=== PATIENT | female | born 1945 ===

== ENCOUNTER 2016-06-26 16:47 | Emergency (ER) | payer MEDICARE, MEDICAID ==
[2016-06-26 16:51] VITALS: TEMP 97; O2SAT 96
--- NOTE | 2016-06-26 17:15 | ED PDOC ---
HPI: Abdomen Time Seen by Provider: 06/26/16 16:57 Chief Complaint (Nursing): GI Problem Chief Complaint (Provider): GI problem History Per: Patient History/Exam Limitations: no limitations Onset/Duration Of Symptoms: Days (1x) Current Symptoms Are (Timing): Still Present Severity: Moderate Location Of Pain/Discomfort: Other (no abdominal pain) Associated Symptoms: Other (rectal bleeding). denies: Fever, Nausea, Vomiting, Diarrhea Last Bowel Movement: Today Additional Complaint(s): 71 year old female with a pertinent medical history of HTN, hypercholesterolemia , NIDDM presents to the ED with complaints of bright red (and dripping) rectal bleeding that occurred 1x time today. She denies having any other associated symptoms including dizziness, nausea, vomiting, diarrhea, and abdominal pain. Her reports that she has been taking aspirin, HTN, and hypercholesterolemia medication. PMD: Pito Babb MD Past Medical History Reviewed: Historical Data, Nursing Documentation, Vital Signs Vital Signs: Last Vital Signs Temp 97.0 F L 06/26/16 16:49 Pulse 88 06/26/16 18:14 Resp 19 06/26/16 18:14 BP 148/66 06/26/16 18:14 Pulse Ox 96 06/26/16 17:57 - Medical History PMH: Diabetes (type 2, NIDDM), HTN, Hypercholesterolemia - Surgical History Surgical History: No Surg Hx - Family History Family History: States: Unknown Family Hx - Social History Alcohol: None Drugs: Denies - Home Medications Home Medications: Ambulatory Orders Medication Instructions Recorded traMADol [Ultram] 50 mg PO Q6H PRN #20 tab 03/26/16 - Allergies Allergies/Adverse Reactions: Allergies Allergy/AdvReac Type Severity Reaction Status Date / Time No Known Allergies Allergy Verified 03/26/16 00:29 Review of Systems ROS Statement: Except As Marked, All Systems Reviewed And Found Negative Constitutional: Negative for: Fever Gastrointestinal: Positive for: Other (rectal bleeding. bright red blood dripping (1x episode)). Negative for: Nausea, Vomiting, Abdominal Pain, Diarrhea, Hematochezia Neurological: Negative for: Dizziness Physical Exam - Reviewed Nursing Documentation Reviewed: Yes Vital Signs Reviewed: Yes - Physical Exam Appears: Positive for: Well, Non-toxic, No Acute Distress Head Exam: Positive for: ATRAUMATIC, NORMOCEPHALIC Skin: Positive for: Normal Color Cardiovascular/Chest: Positive for: Regular Rate, Rhythm Respiratory: Positive for: Normal Breath Sounds Gastrointestinal/Abdominal: Positive for: Normal Exam, Soft. Negative for: Tenderness Rectal: Positive for: Stool Is Heme: (negative), Hemorrhoids (obvious external hemorrhoid. no active bleeding. there is a blood clot. hemorrhoid is non tender , normal pink color, very inflamed but not swollen. No blood, no guiac.), Other (chaperoned by KATHARINE Rousseau) Extremity: Negative for: Swelling (legs are not swollen. varicose veins bilaterally on legs) Neurologic/Psych: Positive for: Alert, Oriented (3x) - Laboratory Results Result Diagrams: 06/26/16 17:20 06/26/16 17:20 - ECG O2 Sat by Pulse Oximetry: 96 (RA) Pulse Ox Interpretation: Normal Medical Decision Making Medical Decision Makin:57 Initial impression: 71 year old female with a hemorrhoid bleed, less likely but still considered differential diagnoses include but are not limited to a lower GI bleed, polyps, diverticulitis. Initial plan: * type and screen * BMP * CBC * PTT * prothrombin time * reevaluation Scribe Attestation: Documented by Sharyn Curran, acting as a scribe for Ca Do MD. Provider Scribe Attestation: All medical record entries made by the Scribe were at my direction and personally dictated by me. I have reviewed the chart and agree that the record accurately reflects my personal performance of the history, physical exam, medical decision making, and the department course for this patient. I have also personally directed, reviewed, and agree with the discharge instructions and disposition. Disposition - Clinical Impression Clinical Impression: Bleeding hemorrhoid, Rectal bleeding, Hypertension, Diabetes mellitus with hyperglycemia - Patient ED Disposition Is Patient to be Admitted: No Doctor Will See Patient In The: Office Counseled Patient/Family Regarding: Studies Performed, Diagnosis - Disposition Referrals: Pito Babb MD [Family Provider] - Disposition: Routine/Home Disposition Time: 18:15 Condition: GOOD Additional Instructions: Return for worsening. Follow up with your PCP in 2-3 days. Instructions: Rectal Bleeding (ED), Sitz Bath (GEN), High Fiber Diet (ED) Print Language: THAI
[2016-06-26 17:37] LABS: BASO # 0.1 K/uL (0.0-0.2); BASO % 1.1 % (0.0-2.0); EOS # 0.1 K/uL (0.0-0.7); HEMATOCRIT 35.3 % (34.0-47.0); LYMPH # 1.5 K/uL (1.0-4.3); LYMPH % 24.5 % (20.0-40.0); MEAN CELL VOLUME 87.2 fl (81.0-99.0); MEAN CORPUSCULAR HEMOGLOBIN 27.7 pg (27.0-31.0); MEAN CORPUSCULAR HGB CONC 31.8 g/dL (33.0-37.0); MEAN PLATELET VOLUME 9.6 fl (7.2-11.7); MONO # 0.4 K/uL (0.0-0.8); MONO % 6.3 % (0.0-10.0); NEUT % 66.1 % (50.0-75.0); RED CELL DISTRIBUTION WIDTH 14.9 % (11.5-14.5)
[2016-06-26 17:50] LABS: BLOOD UREA NITROGEN 16 mg/dl (7-17); CALCIUM 8.6 mg/dL (8.4-10.2); CARBON DIOXIDE 29 mmol/L (22-30); CHLORIDE 100 mmol/L (98-107); GFR AFRICAN-AMERICAN > 60; GLUCOSE,RANDOM 376 mg/dL (65-105); POTASSIUM 4.2 MMOL/L (3.6-5.0); SODIUM 140 mmol/l (132-148)
[2016-06-26 17:54] LABS: PARTIAL THROMBOPLASTIN TIME 24.3 SECONDS (23.3-32.5)
[2016-06-26] MEDS ORDERED: Insulin Regular 100 units/ml IV STA (17:54)
[2016-06-26] MEDS ORDERED: Sodium Chloride 0.9% 1,000 ML IV STA (17:54)
[2016-06-26] MEDS ORDERED: Insulin Regular 100 units/ml ONE (18:01)
[2016-06-26 18:14] VITALS: BP 148/66; PULSE 88; RESP 19
== END 2016-06-26 19:34 | disposition home or self-care (01) ==
LOC: H.ER 16:47
DX: K64.9 Unspecified hemorrhoids (principal); E11.65 Type 2 diabetes mellitus with hyperglycemia; E78.00 Pure hypercholesterolemia, unspecified; I10 Essential (primary) hypertension
CPT/HCPCS: 80048; 82948; 85025; 85610; 85730; 86850; 86900; 99284; J7040

== ENCOUNTER 2017-04-12 20:04 | Inpatient (IN) | payer MEDICARE, OTHER ==
--- NOTE | 2017-04-12 20:35 | ED PDOC ---
HPI: Altered Mental Status Time Seen by Provider: 04/12/17 20:11 Chief Complaint (Nursing): Altered Mental Status Chief Complaint (Provider): Altered Mental Status History Per: Patient, Family () History/Exam Limitations: None Onset/Duration Of Symptoms: Days (x 1) Current Symptoms Are (Timing): Still Present Additional Complaint(s): 72 year old female with past medical history of diabetes, high blood pressure and high cholesterol was brought in via EMS for evaluation of altered mental status, onset a few months ago. Patient's reports that her mental status has been worsening for the last few months, but has become acute worse since yesterday. He was hospitalized himself and was unable to take care of her. She has not been eating regularly, or taking medications. Since yesterday, she has been speaking less than usual. EMS gave her glucose in the field. Patient has no complaints. PMD: Dr. Pito Babb NIHSS Stroke Scale - Date/Time Evaluation Performed Date Performed: 04/12/17 Time Performed: 20:20 When Was NIHSS Performed: Baseline - How Severe is the Stroke Level of Consciousness: 0=Alert LOC to Questions: 0=Both comments correct LOC to commands: 0=Obeys both correctly Best Gaze: 0=Normal Visual: 0=No visual loss Facial: 2=Partial (lower face paralysis) Motor Arm - Left: 0=No drift Motor Arm - Right: 0=No drift Motor Leg - Left: 0=No drift Motor Leg - Right: 0=No drift Limb Ataxia: 0=Absent Sensory: 0=Normal Best Language: 1=Mild to moderate aphasia Dysarthia: 1=Mild to moderate slurring Extinction & Inattention (Neglect): 0=Normal, no object Score: 4 Past Medical History Reviewed: Historical Data, Nursing Documentation, Vital Signs Vital Signs: Last Vital Signs Temp 98.0 F 04/12/17 20:08 Pulse 94 H 04/12/17 20:08 Resp 16 04/12/17 20:08 BP 206/114 H 04/12/17 20:08 Pulse Ox 100 04/12/17 20:08 - Medical History PMH: Diabetes (type 2, NIDDM), HTN, Hypercholesterolemia - Surgical History Surgical History: No Surg Hx - Family History Family History: States: Unknown Family Hx - Home Medications Home Medications: Ambulatory Orders Medication Instructions Recorded traMADol [Ultram] 50 mg PO Q6H PRN #20 tab 03/26/16 - Allergies Allergies/Adverse Reactions: Allergies Allergy/AdvReac Type Severity Reaction Status Date / Time No Known Allergies Allergy Verified 04/12/17 20:08 Review of Systems ROS Statement: Except As Marked, All Systems Reviewed And Found Negative Neurological: Positive for: Altered Mental Status Physical Exam - Reviewed Nursing Documentation Reviewed: Yes Vital Signs Reviewed: Yes - Physical Exam Appears: Positive for: No Acute Distress Head Exam: Positive for: ATRAUMATIC, NORMOCEPHALIC Skin: Positive for: Normal Color, Warm, Dry Eye Exam: Positive for: EOMI, Normal appearance, PERRL Neurologic/Psych: Positive for: Alert, 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 Negative for: Motor/Sensory Deficits - Laboratory Results Result Diagrams: 04/12/17 20:54 04/12/17 20:54 - ECG ECG: Positive for: Interpreted By Me, Viewed By Me ECG Rhythm: Positive for: Normal ST Segment, Sinus Rhythm, 1st Degree Heart Block. Negative for: ST/T Changes O2 Sat by Pulse Oximetry: 100 (RA) Pulse Ox Interpretation: Normal Medical Decision Making Medical Decision Making: Time: 20:19 Impression:CVA vs infectious etiology vs electrolytes vs DKA Initial Plan: --Blood type and screen --VBG shock panel --CT Head --Chest x-ray --EKG --EMP --Hemoglobin A1C --Lipid panel --Troponin I --CBC with differentials --PTT --Prothrombin time --Urinalysis EKG --Sinus rhythm, 1st degree AV block, Q waves, no ST elevation or depressions. Time: 21:12 CT HEAD FINDINGS: Brain: Moderate atrophy. No intracranial hemorrhage. No mass. Few scattered foci of decreased attenuation within periventricular/subcortical white matter. Probable chronic lacunar infarcts within basal ganglia. No definite edema. Ventricles: No hydrocephalus. Bones/joints: No acute fracture. Soft tissues: Unremarkable. Vasculature: Atherosclerotic disease of intracranial arteries. Sinuses: No acute sinusitis. Mastoid air cells: No mastoid effusion. Orbits: Unremarkable as visualized. IMPRESSION: 1. Nonspecific white matter changes. Acute infarction may be CT occult within first 24 hours. If a focal deficit persists, consider followup CT or MRI for further evaluation. 2. Incidental/non-acute findings are described above. 2100: Patient's BP is improving on its own. Mental status remains the same. Spoke with Dr. Alberts who states to treat hyperglycemia as presentation may be toxic/ metabolic. Agrees with ASA, MRI in AM. Spoke with Dr. Adenike Ibanez, hospitalist. Scribe Attestation: Documented by Evelyn Grossman and Kit Josue, acting as a scribe for Jerzy Goldberg MD. Provider Scribe Attestation: All medical record entries made by the Scribe were at my direction and personally dictated by me. I have reviewed the chart and agree that the record accurately reflects my personal performance of the history, physical exam, medical decision making, and the department course for this patient. I have also personally directed, reviewed, and agree with the discharge instructions and disposition. Disposition - Clinical Impression Clinical Impression: CVA (cerebral vascular accident), Hyperglycemia, Hypertension - Patient ED Disposition Is Patient to be Admitted: Yes - Disposition Disposition Time: 20:35 Condition: STABLE Patient Signed Over To: Adenike Ibanez - Pt Status Changed To: Hospital Disposition Of: Inpatient - Admit Certification Admit to Inpatient:: After my assessment, the patient will require hospitalization for at least two midnights. This is because of the severity of symptoms shown, intensity of services needed, and/or the medical risk in this patient being treated as an outpatient.
[2017-04-12 20:51] LABS: VENOUS BLOOD GAS BASE EXCESS 3.3 mmol/L (0.0-2.0); VENOUS BLOOD GAS PCO2 48 mmHg (40-60); VENOUS BLOOD GAS PO2 56 mm/Hg (30-55); VENOUS BLOOD PH 7.39 (7.32-7.43)
[2017-04-12] MEDS ORDERED: Sodium Chloride 0.9% 1,000 ML IV STA ×3 (20:52→21:34)
[2017-04-12 20:58] LABS: BASO % 0.6 % (0.0-2.0); EOS # 0.1 K/uL (0.0-0.7); EOS % 2.3 % (0.0-4.0); HEMOGLOBIN 12.4 g/dL (12.0-16.0); LYMPH # 1.3 K/uL (1.0-4.3); LYMPH % 22.2 % (20.0-40.0); MEAN CELL VOLUME 88.6 fl (81.0-99.0); MEAN CORPUSCULAR HEMOGLOBIN 28.2 pg (27.0-31.0); MEAN CORPUSCULAR HGB CONC 31.9 g/dL (33.0-37.0); MEAN PLATELET VOLUME 10.3 fl (7.2-11.7); MONO # 0.3 K/uL (0.0-0.8); MONO % 5.2 % (0.0-10.0); NEUT % 69.7 % (50.0-75.0); NRBC % 0.1 % (0.0-0.0); RBC 4.39 Mil/uL (3.80-5.20); RED CELL DISTRIBUTION WIDTH 14.8 % (11.5-14.5); WHITE BLOOD COUNT 5.7 K/uL (4.8-10.8)
--- NOTE | 2017-04-12 21:12 | CT ---
EXAM: CT Head Without Intravenous Contrast CLINICAL HISTORY: 72 years old, female; Signs and symptoms; Altered mental status/memory loss; Other: Lt facial droop; Additional info: AMS, l facial droop, unknown duration, likely >2d TECHNIQUE: Axial computed tomography images of the head/brain without intravenous contrast. All CT scans at this facility use one or more dose reduction techniques, viz.: automated exposure control; ma/kV adjustment per patient size (including targeted exams where dose is matched to indication; i.e. head); or iterative reconstruction technique. Coronal and sagittal reformatted images were created and reviewed. COMPARISON: No relevant prior studies available. FINDINGS: Brain: Moderate atrophy. No intracranial hemorrhage. No mass. Few scattered foci of decreased attenuation within periventricular/subcortical white matter. Probable chronic lacunar infarcts within basal ganglia. No definite edema. Ventricles: No hydrocephalus. Bones/joints: No acute fracture. Soft tissues: Unremarkable. Vasculature: Atherosclerotic disease of intracranial arteries. Sinuses: No acute sinusitis. Mastoid air cells: No mastoid effusion. Orbits: Unremarkable as visualized. IMPRESSION: 1. Nonspecific white matter changes. Acute infarction may be CT occult within first 24 hours. If a focal deficit persists, consider followup CT or MRI for further evaluation. 2. Incidental/non-acute findings are described above.
[2017-04-12 21:32] LABS: LDL CHOLESTEROL 166 mg/dL (0-129)
[2017-04-12] MEDS ORDERED: Insulin Regular 100 units/ml SC STA (21:34)
[2017-04-12 21:37] LABS: ALBUMIN 3.8 g/dL (3.5-5.0); ALT/SGPT 25 U/L (9-52); AST/SGOT 19 U/L (14-36); BLOOD UREA NITROGEN 13 mg/dl (7-17); CALCIUM 9.2 mg/dL (8.4-10.2); GFR AFRICAN-AMERICAN > 60; GFR NON-AFRICAN AMERICAN > 60; HDL CHOLESTEROL 56 MG/DL (30-70)
[2017-04-12 21:57] LABS: INR 0.9 (0.9-1.2); PROTHROMBIN TIME 9.7 Seconds (9.8-13.1)
[2017-04-12 22:10] LABS: SQUAMOUS EPITHIAL 1 /hpf (0-5); URINE BACTERIA RARE (<OCC); URINE BILIRUBIN NEGATIVE (NEGATIVE); URINE BLOOD MODERATE (NEGATIVE); URINE CLARITY CLEAR (Clear); URINE COLOR STRAW (YELLOW); URINE GLUCOSE (UA) >=500 mg/dL (Normal); URINE LEUKOCYTE ESTERASE NEG Leu/uL (Negative); URINE NITRATE NEGATIVE (NEGATIVE); URINE PROTEIN 30 mg/dL (NEGATIVE); URINE UROBILINOGEN 0.2-1.0 mg/dL (0.2-1.0)
[2017-04-12] MEDS ORDERED: Insulin Regular 100 units/ml IV STA (22:34)
--- NOTE | 2017-04-12 22:52 | CP.PCM.HP ---
History of Present Illness - History of Present Illness History of Present Illness: CC: AMS NOTE: history per records, patient only answering Yes and No questions, only oriented to name at this time HPI: 72F PMH DM, HTN, HLD, medications unknown at this time, brought to the ED with acutely worsening altered mental status though it has been progressively worsening over the past few months; she has been speaking less since yesterday, per her , per records. Patient is currently answering yes and no questions. The patient's was recently hospitalized and was unable to take care of his , and she has not been eating well, or taking her medications. CT head was neg for acute CVA or bleed. Patient glucose elevated 563, HD stable. Discussed with ED physician who consulted with Dr. Alberts neuro - to perform MRI brain tomorrow. We will initiated ASA, statin as well. PT OT. ROS: unable to assess at this time. PMSH: DM, HTN, HLD FH: DENIES SH: denies ETOH, IVDU, Tobacco Meds: unable to complete at this time NKDA vitals reviewed Constitutional- cooperative, awake, alert. Head- NCAT, PERRL Eye- PERRL, normal accommodation ENT- normal exam, MMM. Neck- normal inspection, supple, no JVD Respiratory- CTAB, no wheezes rales rhonchi Cardiovascular- RRR, +S1, +S2 no MRG GI/Abdominal- normal bowel sounds, soft Skin- warm, dry Extremities Exam- normal capillary refill, normal inspection Neurological Exam- alert, oriented to person. not answering more than yes and no , and i dont know questions Psych- normal mood, normal affect Labs: Most Recent Lab Values WBC 5.7 K/uL (4.8-10.8) 04/12/17 20:54 RBC 4.39 Mil/uL (3.80-5.20) 04/12/17 20:54 Hgb 12.4 g/dL (12.0-16.0) 04/12/17 20:54 Hct 38.9 % (34.0-47.0) 04/12/17 20:54 MCV 88.6 fl (81.0-99.0) 04/12/17 20:54 MCH 28.2 pg (27.0-31.0) 04/12/17 20:54 MCHC 31.9 g/dL (33.0-37.0) L 04/12/17 20:54 RDW 14.8 % (11.5-14.5) H 04/12/17 20:54 Plt Count 228 K/uL (130-400) 04/12/17 20:54 MPV 10.3 fl (7.2-11.7) 04/12/17 20:54 Neut % (Auto) 69.7 % (50.0-75.0) 04/12/17 20:54 Lymph % (Auto) 22.2 % (20.0-40.0) 04/12/17 20:54 [place] % (Auto) 5.2 % (0.0-10.0) 04/12/17 20:54 Eos % (Auto) 2.3 % (0.0-4.0) 04/12/17 20:54 Baso % (Auto) 0.6 % (0.0-2.0) 04/12/17 20:54 Neut # (Auto) 4.0 K/uL (1.8-7.0) 04/12/17 20:54 Lymph # (Auto) 1.3 K/uL (1.0-4.3) 04/12/17 20:54 [place] # (Auto) 0.3 K/uL (0.0-0.8) 04/12/17 20:54 Eos # (Auto) 0.1 K/uL (0.0-0.7) 04/12/17 20:54 Baso # (Auto) 0.0 K/uL (0.0-0.2) 04/12/17 20:54 PT 9.7 Seconds (9.8-13.1) L 04/12/17 21:15 INR 0.9 (0.9-1.2) 04/12/17 21:15 APTT 26.0 Seconds (25.6-37.1) 04/12/17 21:15 pO2 56 mm/Hg (30-55) H 04/12/17 20:40 VBG pH 7.39 (7.32-7.43) 04/12/17 20:40 VBG pCO2 48 mmHg (40-60) 04/12/17 20:40 VBG HCO3 27.3 mmol/L 04/12/17 20:40 VBG Total CO2 30.6 mmol/L (22-28) H 04/12/17 20:40 VBG O2 Sat (Calc) 94.7 % (40-65) H 04/12/17 20:40 VBG Base Excess 3.3 mmol/L (0.0-2.0) H 04/12/17 20:40 VBG Potassium 4.5 mmol/L (3.6-5.2) 04/12/17 20:40 Sodium 136.0 mmol/L (132-148) 04/12/17 20:40 Chloride 98.0 mmol/L (98-107) 04/12/17 20:40 Glucose 563 mg/dL (65-105) H* 04/12/17 20:40 Lactate 2.9 mmol/L (0.7-2.1) H 04/12/17 20:40 FiO2 21.0 % 04/12/17 20:40 Crit Value Called To Dr rico 04/12/17 20:40 Crit Value Called By Rt 04/12/17 20:40 Crit Value Read Back Y 04/12/17 20:40 Blood Gas Notified Time 204904/12/17 20:40 Sodium 136 mmol/l (132-148) 04/12/17 20:54 Potassium 4.5 MMOL/L (3.6-5.0) 04/12/17 20:54 Chloride 97 mmol/L (98-107) L 04/12/17 20:54 Carbon Dioxide 28 mmol/L (22-30) 04/12/17 20:54 Anion Gap 16 (10-20) 04/12/17 20:54 BUN 13 mg/dl (7-17) 04/12/17 20:54 Creatinine 0.8 mg/dl (0.7-1.2) 04/12/17 20:54 Est GFR ( Amer) > 60 04/12/17 20:54 Est GFR (Non-Af Amer) > 60 04/12/17 20:54 POC Glucose (mg/dL) 436 mg/dL (65-110) H* 04/12/17 20:49 Random Glucose 560 mg/dL (65-105) H* D 04/12/17 20:54 Calcium 9.2 mg/dL (8.4-10.2) 04/12/17 20:54 Total Bilirubin 0.4 mg/dl (0.2-1.3) 04/12/17 20:54 AST 19 U/L (14-36) 04/12/17 20:54 ALT 25 U/L (9-52) 04/12/17 20:54 Alkaline Phosphatase 99 U/L (38-126) 04/12/17 20:54 Troponin I < 0.0120 ng/mL (0.00-0.120) 04/12/17 20:54 Total Protein 7.5 G/DL (6.3-8.2) 04/12/17 20:54 Albumin 3.8 g/dL (3.5-5.0) 04/12/17 20:54 Globulin 3.7 gm/dL (2.2-3.9) 04/12/17 20:54 Albumin/Globulin Ratio 1.0 (1.0-2.1) 04/12/17 20:54 Triglycerides 169 mg/DL (0-149) H 04/12/17 20:54 Cholesterol 268 mg/dL (0-199) H 04/12/17 20:54 LDL Cholesterol Direct 166 mg/dL (0-129) H 04/12/17 20:54 HDL Cholesterol 56 MG/DL (30-70) 04/12/17 20:54 Venous Blood Potassium 4.5 mmol/L (3.6-5.2) 04/12/17 20:40 Urine Color Straw (YELLOW) 04/12/17 21:15 Urine Clarity Clear (Clear) 04/12/17 21:15 Urine pH 6.0 (5.0-8.0) 04/12/17 21:15 Ur Specific [place] 1.024 (1.003-1.030) 04/12/17 21:15 Urine Protein 30 mg/dL (NEGATIVE) 04/12/17 21:15 Urine Glucose (UA) >=500 mg/dL (Normal) 04/12/17 21:15 Urine Ketones Negative mg/dL (NEGATIVE) 04/12/17 21:15 Urine Blood Moderate (NEGATIVE) 04/12/17 21:15 Urine Nitrate Negative (NEGATIVE) 04/12/17 21:15 Urine Bilirubin Negative (NEGATIVE) 04/12/17 21:15 Urine Urobilinogen 0.2-1.0 mg/dL (0.2-1.0) 04/12/17 21:15 Ur Leukocyte Esterase Neg Jr/uL (Negative) 04/12/17 21:15 Urine RBC (Auto) 20 /hpf (0-3) H 04/12/17 21:15 Urine Microscopic WBC 2 /hpf (0-5) 04/12/17 21:15 Ur Squamous Epith Cells 1 /hpf (0-5) 04/12/17 21:15 Urine Bacteria Rare (<OCC) 04/12/17 21:15 Blood Type A POSITIVE 04/12/17 20:35 Antibody Screen Negative 04/12/17 20:35 BBK History Checked Patient has bt 04/12/17 20:35 Imaging Studies: CT head no bleed no CVA Active Medications: Sodium Chloride 0.9% 1,000 ml IV 100 mls/hr Insulin Human Regular [HumuLIN R] See Protocol SC ACHS Aspirin [Aspirin Chewable] 81 mg PO DAILY Enoxaparin [Lovenox] 40 mg SC DAILY Atorvastatin [Lipitor] 40 mg PO HS Assessment and Plan: 72F PMH DM, HTN, HLD, medications unknown at this time, brought to the ED with acutely worsening altered mental status though it has been progressively worsening over the past few months; she has been speaking less since yesterday, per her , per records. Patient is currently answering yes and no questions. The patient's was recently hospitalized and was unable to take care of his , and she has not been eating well, or taking her medications. CT head was neg for acute CVA or bleed. Patient glucose elevated 563, HD stable. Discussed with ED physician who consulted with Dr. Alberts neuro - to perform MRI brain tomorrow. We will initiated ASA, statin as well. PT OT. CVA AMS with expressive aphasia/dysarthria? CT head neg, MRI in AM ASA, Statin Neurology Consult with Dr. Alberts PT/OT/Speech in AM DM accuchecks ACHS coverage with ISS initiate Glucotrol 5 mg ACB normal renal fx DVT ppx Lovenox Present on Admission - Present on Admission Any Indicators Present on Admission: No Past Patient History - Past Social History Smoking Status: Unknown If Ever Smoked - CARDIAC Hx Hypercholesterolemia: Yes Hx Hypertension: Yes - ENDOCRINE/METABOLIC Hx Endocrine Disorders: Yes Hx Diabetes Mellitus Type 2: Yes - MUSCULOSKELETAL/RHEUMATOLOGICAL Other/Comment: let foot ulcer - GASTROINTESTINAL Hx Hemorrhoids: Yes - PSYCHIATRIC Hx Substance Use: No - SURGICAL HISTORY Hx Surgeries: No - ANESTHESIA Hx Anesthesia: Yes Hx Anesthesia Reactions: No Meds Allergies/Adverse Reactions: Allergies Allergy/AdvReac Type Severity Reaction Status Date / Time No Known Allergies Allergy Verified 04/12/17 20:08 Results - Vital Signs Recent Vital Signs: Last Vital Signs Temp 98 F 04/12/17 21:05 Pulse 93 H 04/12/17 21:26 Resp 20 04/12/17 21:26 BP 151/74 H 04/12/17 21:26 Pulse Ox 100 04/12/17 22:04 - Labs Result Diagrams: 04/12/17 20:54 04/12/17 20:54 Labs: Laboratory Results - last 24 hr 04/12/17 04/12/17 04/12/17 20:35 20:40 20:49 WBC RBC Hgb Hct MCV MCH MCHC RDW Plt Count MPV Neut % (Auto) Lymph % (Auto) [place] % (Auto) Eos % (Auto) Baso % (Auto) Neut # (Auto) Lymph # (Auto) [place] # (Auto) Eos # (Auto) Baso # (Auto) PT INR APTT pO2 56 H VBG pH 7.39 VBG pCO2 48 VBG HCO3 27.3 VBG Total CO2 30.6 H VBG O2 Sat (Calc) 94.7 H VBG Base Excess 3.3 H VBG Potassium 4.5 Sodium 136.0 Chloride 98.0 Glucose 563 H* Lactate 2.9 H FiO2 21.0 Crit Value Called To Dr rico Crit Value Called By Rt Crit Value Read Back Y Blood Gas Notified Time 2049 Potassium Carbon Dioxide Anion Gap BUN Creatinine Est GFR ( Amer) Est GFR (Non-Af Amer) POC Glucose (mg/dL) 436 H* Random Glucose Calcium Total Bilirubin AST ALT Alkaline Phosphatase Troponin I Total Protein Albumin Globulin Albumin/Globulin Ratio Triglycerides Cholesterol LDL Cholesterol Direct HDL Cholesterol Venous Blood Potassium 4.5 Urine Color Urine Clarity Urine pH Ur Specific [place] Urine Protein Urine Glucose (UA) Urine Ketones Urine Blood Urine Nitrate Urine Bilirubin Urine Urobilinogen Ur Leukocyte Esterase Urine RBC (Auto) Urine Microscopic WBC Ur Squamous Epith Cells Urine Bacteria Blood Type A POSITIVE Antibody Screen Negative BBK History Checked Patient has bt 04/12/17 04/12/17 04/12/17 20:54 20:54 21:15 WBC 5.7 RBC 4.39 Hgb 12.4 Hct 38.9 MCV 88.6 MCH 28.2 MCHC 31.9 L RDW 14.8 H Plt Count 228 MPV 10.3 Neut % (Auto) 69.7 Lymph % (Auto) 22.2 [place] % (Auto) 5.2 Eos % (Auto) 2.3 Baso % (Auto) 0.6 Neut # (Auto) 4.0 Lymph # (Auto) 1.3 [place] # (Auto) 0.3 Eos # (Auto) 0.1 Baso # (Auto) 0.0 PT 9.7 L INR 0.9 APTT 26.0 pO2 VBG pH VBG pCO2 VBG HCO3 VBG Total CO2 VBG O2 Sat (Calc) VBG Base Excess VBG Potassium Sodium 136 Chloride 97 L Glucose Lactate FiO2 Crit Value Called To Crit Value Called By Crit Value Read Back Blood Gas Notified Time Potassium 4.5 Carbon Dioxide 28 Anion Gap 16 BUN 13 Creatinine 0.8 Est GFR ( Amer) > 60 Est GFR (Non-Af Amer) > 60 POC Glucose (mg/dL) Random Glucose 560 H* D Calcium 9.2 Total Bilirubin 0.4 AST 19 ALT 25 Alkaline Phosphatase 99 Troponin I < 0.0120 Total Protein 7.5 Albumin 3.8 Globulin 3.7 Albumin/Globulin Ratio 1.0 Triglycerides 169 H Cholesterol 268 H LDL Cholesterol Direct 166 H HDL Cholesterol 56 Venous Blood Potassium Urine Color Urine Clarity Urine pH Ur Specific [place] Urine Protein Urine Glucose (UA) Urine Ketones Urine Blood Urine Nitrate Urine Bilirubin Urine Urobilinogen Ur Leukocyte Esterase Urine RBC (Auto) Urine Microscopic WBC Ur Squamous Epith Cells Urine Bacteria Blood Type Antibody Screen BBK History Checked 04/12/17 21:15 WBC RBC Hgb Hct MCV MCH MCHC RDW Plt Count MPV Neut % (Auto) Lymph % (Auto) [place] % (Auto) Eos % (Auto) Baso % (Auto) Neut # (Auto) Lymph # (Auto) [place] # (Auto) Eos # (Auto) Baso # (Auto) PT INR APTT pO2 VBG pH VBG pCO2 VBG HCO3 VBG Total CO2 VBG O2 Sat (Calc) VBG Base Excess VBG Potassium Sodium Chloride Glucose Lactate FiO2 Crit Value Called To Crit Value Called By Crit Value Read Back Blood Gas Notified Time Potassium Carbon Dioxide Anion Gap BUN Creatinine Est GFR ( Amer) Est GFR (Non-Af Amer) POC Glucose (mg/dL) Random Glucose Calcium Total Bilirubin AST ALT Alkaline Phosphatase Troponin I Total Protein Albumin Globulin Albumin/Globulin Ratio Triglycerides Cholesterol LDL Cholesterol Direct HDL Cholesterol Venous Blood Potassium Urine Color Straw Urine Clarity Clear Urine pH 6.0 Ur Specific [place] 1.024 Urine Protein 30 Urine Glucose (UA) >=500 Urine Ketones Negative Urine Blood Moderate Urine Nitrate Negative Urine Bilirubin Negative Urine Urobilinogen 0.2-1.0 Ur Leukocyte Esterase Neg Urine RBC (Auto) 20 H Urine Microscopic WBC 2 Ur Squamous Epith Cells 1 Urine Bacteria Rare Blood Type Antibody Screen BBK History Checked
[2017-04-13] MEDS ORDERED: Insulin Regular 100 units/ml SC STA (02:27)
[2017-04-13 08:19] LABS: HEMOGLOBIN 11.5 g/dL (12.0-16.0); MEAN CELL VOLUME 87.5 fl (81.0-99.0); MEAN CORPUSCULAR HEMOGLOBIN 28.8 pg (27.0-31.0); MEAN CORPUSCULAR HGB CONC 32.9 g/dL (33.0-37.0); RBC 4.01 Mil/uL (3.80-5.20); RED CELL DISTRIBUTION WIDTH 14.9 % (11.5-14.5); WHITE BLOOD COUNT 5.3 K/uL (4.8-10.8)
[2017-04-13] MEDS: Insulin Regular 100 units/ml SC SCH ×4 (09:15→21:46)
--- NOTE | 2017-04-13 09:24 | MRI ---
PROCEDURE: MRI BRAIN WITHOUT CONTRAST HISTORY: r/o CVA COMPARISON: CT head 04/12/2017 TECHNIQUE: Multiplanar, multisequence MR images of the brain were obtained without intravenous contrast enhancement. FINDINGS: HEMORRHAGE: None DWI: A 7 mm superior and posterior right frontal lobe white matter rounded focus of restricted diffusion is noted. Less conspicuous contralateral similar level left-sided restricted diffusion focus is possible - however only noted on 1 image. (axial series 3, image 21). Findings are compatible with the clinical suspicion of an acute infarct. . Findings closely approximates the lateral ventricles BRAIN PARENCHYMA: No mass effect or edema. No atrophy or chronic microvascular ischemic changes. VENTRICLES: Unremarkable. No hydrocephalus. CRANIUM: Unremarkable. ORBITS: Grossly unremarkable. PARANASAL SINUSES/MASTOIDS: Clear VASCULAR SYSTEM: Skull base flow voids intact. OTHER FINDINGS: None. 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 Right much more conspicuous and definitive than left. No hemorrhage or mass effect seen. Comments: Several calls to the ER were made, the answering shipping receiving clerk has not been able to connect me with an ER physician. Our electroneurodiagnostic technologist Cassius went to the ER. The ER physician there, Dr. Mayer, called back promptly. These findings were directly discussed on 04/13/2017 at 9:15 a.m.
[2017-04-13] MEDS: Enoxaparin 40 mg Syringe SC SCH (10:37)
--- NOTE | 2017-04-13 13:09 | RAD ---
HISTORY: AMS COMPARISON: Chest radiograph dated 03/26/2016. FINDINGS: LUNGS: Left midlung scarring. No active pulmonary disease. PLEURA: Stable elevation of the right hemidiaphragm. No significant pleural effusion identified, no pneumothorax apparent. CARDIOVASCULAR: Sclerotic aortic calcifications. Cardiomediastinal silhouette stably enlarged. OSSEOUS STRUCTURES: Change. VISUALIZED UPPER ABDOMEN: Normal. OTHER FINDINGS: None. IMPRESSION: No active disease.
--- NOTE | 2017-04-13 13:12 | CP.PCM.CON ---
History of Present Illness - History of Present Illness History of Present Illness: Mrs. Black is a 72-year-old woman with a past medical history of DM, HTN, HLD, CAD, who was brought in by her for confusion and changes in mentation as well of left facial droop of unknown duration. According to her , she has been having decreased oral intake and has missed her medications. Labs showed glucose of nearly 600, lactate was elevated, and CT of the head did not show any acute findings. NIHSS on initial evaluation was 3 for confusion and facial droop. Review of Systems - Review of Systems All systems: reviewed and no additional remarkable complaints except Past Patient History - Past Social History Smoking Status: Unknown If Ever Smoked - CARDIAC Hx Hypercholesterolemia: Yes Hx Hypertension: Yes - ENDOCRINE/METABOLIC Hx Endocrine Disorders: Yes Hx Diabetes Mellitus Type 2: Yes - MUSCULOSKELETAL/RHEUMATOLOGICAL Other/Comment: let foot ulcer - GASTROINTESTINAL Hx Hemorrhoids: Yes - PSYCHIATRIC Hx Substance Use: No - SURGICAL HISTORY Hx Surgeries: No - ANESTHESIA Hx Anesthesia: Yes Hx Anesthesia Reactions: No Meds Allergies/Adverse Reactions: Allergies Allergy/AdvReac Type Severity Reaction Status Date / Time No Known Allergies Allergy Verified 04/12/17 20:08 - Medications Medications: Current Medications Aspirin (Aspirin Chewable) 81 mg PO DAILY [facility] Last Admin: 04/13/17 10:36 Dose: 81 mg Atorvastatin Calcium (Lipitor) 40 mg PO HS [facility] Enoxaparin Sodium (Lovenox) 40 mg SC DAILY [facility] PRN Reason: Protocol Last Admin: 04/13/17 10:37 Dose: 40 mg Glipizide (Glucotrol) 5 mg PO ACB [facility] Last Admin: 04/13/17 09:14 Dose: Not Given Insulin Human Regular (Humulin R) 0 units SC ACHS [facility] PRN Reason: Protocol Last Admin: 04/13/17 09:15 Dose: Not Given Physical Exam - Constitutional Appears: Well - Head Exam Head Exam: ATRAUMATIC, NORMAL INSPECTION, NORMOCEPHALIC - Eye Exam Eye Exam: EOMI, Normal appearance, PERRL - ENT Exam ENT Exam: Mucous Membranes Moist, Normal Exam - Neck Exam Neck exam: Positive for: Normal Inspection - Respiratory Exam Respiratory Exam: Clear to Auscultation Bilateral, NORMAL BREATHING PATTERN - Cardiovascular Exam Cardiovascular Exam: REGULAR RHYTHM, +S1, +S2 - GI/Abdominal Exam GI & Abdominal Exam: Normal Bowel Sounds, Soft. absent: Tenderness - Rectal Exam Rectal Exam: Deferred - Extremities Exam Extremities exam: Positive for: normal inspection - Back Exam Back exam: NORMAL INSPECTION - Neurological Exam Neurological exam: Alert, CN II-XII Intact, Normal Gait, Oriented x3, Reflexes Normal - Expanded Neurological Exam Expanded Patient oriented to: person, place, time Cranial nerves: EOM's Intact: Normal, Facial Palsey w/Forehead Movement: Normal , Facial Palsey w/o Forehead Movement: Abnormal Left, Facial Sensation: Abnormal Left, Gag Reflex: Normal, Nystagmus: Normal Ataxia: No Cerebellar Function: Finger to Nose: Normal, Heel to Cervantes: Normal, Romberg: Normal Upper motor neuron: Babinski Sign: Normal Sensory exam: Lower Extremity Light Touch: Normal, Lower Extremity Pin Prick: Normal, Upper Extremity Light Touch: Normal, Upper Extremity Pin Prick: Normal Neuro motor strength exam: Left Upper Extremity: 4, Right Upper Extremity: 4, Left Lower Extremity: 4, Right Lower Extremity: 4 DTR: Achilles Tendon Left: 2+, Achilles Tendon Right: 2+, Bicep Left: 2+, Bicep Right: 2+, Brachioradialis Left: 2+, Brachioradialis Right: 2+, Patellar Left: 2 +, Patellar Right: 2+, Tricep Left: 2+, Tricep Right: 2+ - Psychiatric Exam Psychiatric exam: Normal Affect, Normal Mood - Skin Skin Exam: Dry, Intact, Normal Color, Warm Results - Vital Signs Recent Vital Signs: Last Vital Signs Temp 98 F 04/12/17 21:05 Pulse 89 04/13/17 10:45 Resp 16 04/13/17 10:39 BP 134/62 04/13/17 10:45 Pulse Ox 95 04/13/17 10:45 - Labs Result Diagrams: 04/13/17 07:00 04/12/17 20:54 Labs: Laboratory Results - last 24 hr 04/12/17 04/12/17 04/12/17 20:07 20:35 20:40 WBC RBC Hgb Hct MCV MCH MCHC RDW Plt Count MPV Neut % (Auto) Lymph % (Auto) [place] % (Auto) Eos % (Auto) Baso % (Auto) Neut # (Auto) Lymph # (Auto) [place] # (Auto) Eos # (Auto) Baso # (Auto) PT INR APTT pO2 56 H VBG pH 7.39 VBG pCO2 48 VBG HCO3 27.3 VBG Total CO2 30.6 H VBG O2 Sat (Calc) 94.7 H VBG Base Excess 3.3 H VBG Potassium 4.5 Sodium 136.0 Chloride 98.0 Glucose 563 H* Lactate 2.9 H FiO2 21.0 Crit Value Called To Dr rico Crit Value Called By Rt Crit Value Read Back Y Blood Gas Notified Time 2049 Potassium Carbon Dioxide Anion Gap BUN Creatinine Est GFR ( Amer) Est GFR (Non-Af Amer) POC Glucose (mg/dL) 473 H* Random Glucose Calcium Total Bilirubin AST ALT Alkaline Phosphatase Troponin I Total Protein Albumin Globulin Albumin/Globulin Ratio Triglycerides Cholesterol LDL Cholesterol Direct HDL Cholesterol Venous Blood Potassium 4.5 Urine Color Urine Clarity Urine pH Ur Specific [place] Urine Protein Urine Glucose (UA) Urine Ketones Urine Blood Urine Nitrate Urine Bilirubin Urine Urobilinogen Ur Leukocyte Esterase Urine RBC (Auto) Urine Microscopic WBC Ur Squamous Epith Cells Urine Bacteria Blood Type A POSITIVE Antibody Screen Negative BBK History Checked Patient has bt 04/12/17 04/12/17 04/12/17 20:49 20:54 20:54 WBC 5.7 RBC 4.39 Hgb 12.4 Hct 38.9 MCV 88.6 MCH 28.2 MCHC 31.9 L RDW 14.8 H Plt Count 228 MPV 10.3 Neut % (Auto) 69.7 Lymph % (Auto) 22.2 [place] % (Auto) 5.2 Eos % (Auto) 2.3 Baso % (Auto) 0.6 Neut # (Auto) 4.0 Lymph # (Auto) 1.3 [place] # (Auto) 0.3 Eos # (Auto) 0.1 Baso # (Auto) 0.0 PT INR APTT pO2 VBG pH VBG pCO2 VBG HCO3 VBG Total CO2 VBG O2 Sat (Calc) VBG Base Excess VBG Potassium Sodium 136 Chloride 97 L Glucose Lactate FiO2 Crit Value Called To Crit Value Called By Crit Value Read Back Blood Gas Notified Time Potassium 4.5 Carbon Dioxide 28 Anion Gap 16 BUN 13 Creatinine 0.8 Est GFR ( Amer) > 60 Est GFR (Non-Af Amer) > 60 POC Glucose (mg/dL) 436 H* Random Glucose 560 H* D Calcium 9.2 Total Bilirubin 0.4 AST 19 ALT 25 Alkaline Phosphatase 99 Troponin I < 0.0120 Total Protein 7.5 Albumin 3.8 Globulin 3.7 Albumin/Globulin Ratio 1.0 Triglycerides 169 H Cholesterol 268 H LDL Cholesterol Direct 166 H HDL Cholesterol 56 Venous Blood Potassium Urine Color Urine Clarity Urine pH Ur Specific [place] Urine Protein Urine Glucose (UA) Urine Ketones Urine Blood Urine Nitrate Urine Bilirubin Urine Urobilinogen Ur Leukocyte Esterase Urine RBC (Auto) Urine Microscopic WBC Ur Squamous Epith Cells Urine Bacteria Blood Type Antibody Screen BBK History Checked 04/12/17 04/12/17 04/12/17 21:15 21:15 22:28 WBC RBC Hgb Hct MCV MCH MCHC RDW Plt Count MPV Neut % (Auto) Lymph % (Auto) [place] % (Auto) Eos % (Auto) Baso % (Auto) Neut # (Auto) Lymph # (Auto) [place] # (Auto) Eos # (Auto) Baso # (Auto) PT 9.7 L INR 0.9 APTT 26.0 pO2 VBG pH VBG pCO2 VBG HCO3 VBG Total CO2 VBG O2 Sat (Calc) VBG Base Excess VBG Potassium Sodium Chloride Glucose Lactate FiO2 Crit Value Called To Crit Value Called By Crit Value Read Back Blood Gas Notified Time Potassium Carbon Dioxide Anion Gap BUN Creatinine Est GFR ( Amer) Est GFR (Non-Af Amer) POC Glucose (mg/dL) 405 H* Random Glucose Calcium Total Bilirubin AST ALT Alkaline Phosphatase Troponin I Total Protein Albumin Globulin Albumin/Globulin Ratio Triglycerides Cholesterol LDL Cholesterol Direct HDL Cholesterol Venous Blood Potassium Urine Color Straw Urine Clarity Clear Urine pH 6.0 Ur Specific [place] 1.024 Urine Protein 30 Urine Glucose (UA) >=500 Urine Ketones Negative Urine Blood Moderate Urine Nitrate Negative Urine Bilirubin Negative Urine Urobilinogen 0.2-1.0 Ur Leukocyte Esterase Neg Urine RBC (Auto) 20 H Urine Microscopic WBC 2 Ur Squamous Epith Cells 1 Urine Bacteria Rare Blood Type Antibody Screen BBK History Checked 04/12/17 04/13/17 04/13/17 23:53 05:46 07:00 WBC 5.3 RBC 4.01 Hgb 11.5 L Hct 35.1 MCV 87.5 MCH 28.8 MCHC 32.9 L RDW 14.9 H Plt Count 212 MPV Neut % (Auto) Lymph % (Auto) [place] % (Auto) Eos % (Auto) Baso % (Auto) Neut # (Auto) Lymph # (Auto) [place] # (Auto) Eos # (Auto) Baso # (Auto) PT INR APTT pO2 VBG pH VBG pCO2 VBG HCO3 VBG Total CO2 VBG O2 Sat (Calc) VBG Base Excess VBG Potassium Sodium Chloride Glucose Lactate FiO2 Crit Value Called To Crit Value Called By Crit Value Read Back Blood Gas Notified Time Potassium Carbon Dioxide Anion Gap BUN Creatinine Est GFR ( Amer) Est GFR (Non-Af Amer) POC Glucose (mg/dL) 302 H 234 H Random Glucose Calcium Total Bilirubin AST ALT Alkaline Phosphatase Troponin I Total Protein Albumin Globulin Albumin/Globulin Ratio Triglycerides Cholesterol LDL Cholesterol Direct HDL Cholesterol Venous Blood Potassium Urine Color Urine Clarity Urine pH Ur Specific [place] Urine Protein Urine Glucose (UA) Urine Ketones Urine Blood Urine Nitrate Urine Bilirubin Urine Urobilinogen Ur Leukocyte Esterase Urine RBC (Auto) Urine Microscopic WBC Ur Squamous Epith Cells Urine Bacteria Blood Type Antibody Screen BBK History Checked 04/13/17 07:59 WBC RBC Hgb Hct MCV MCH MCHC RDW Plt Count MPV Neut % (Auto) Lymph % (Auto) [place] % (Auto) Eos % (Auto) Baso % (Auto) Neut # (Auto) Lymph # (Auto) [place] # (Auto) Eos # (Auto) Baso # (Auto) PT INR APTT pO2 VBG pH VBG pCO2 VBG HCO3 VBG Total CO2 VBG O2 Sat (Calc) VBG Base Excess VBG Potassium Sodium Chloride Glucose Lactate FiO2 Crit Value Called To Crit Value Called By Crit Value Read Back Blood Gas Notified Time Potassium Carbon Dioxide Anion Gap BUN Creatinine Est GFR ( Amer) Est GFR (Non-Af Amer) POC Glucose (mg/dL) 213 H Random Glucose Calcium Total Bilirubin AST ALT Alkaline Phosphatase Troponin I Total Protein Albumin Globulin Albumin/Globulin Ratio Triglycerides Cholesterol LDL Cholesterol Direct HDL Cholesterol Venous Blood Potassium Urine Color Urine Clarity Urine pH Ur Specific [place] Urine Protein Urine Glucose (UA) Urine Ketones Urine Blood Urine Nitrate Urine Bilirubin Urine Urobilinogen Ur Leukocyte Esterase Urine RBC (Auto) Urine Microscopic WBC Ur Squamous Epith Cells Urine Bacteria Blood Type Antibody Screen BBK History Checked Assessment & Plan (1) CVA (cerebral vascular accident) Assessment and Plan: The patient has multiple risk factors for stroke and requires better management as well as secondary stroke prevention. I recommend the followin. Telemetry 2. Echocardiogram with bubble study 3. Carotid dopplers 4. Continue aspirin and Plavix 6. FDC cardiac monitoring is recommended 7. Continue Lipitor 40 mg daily 8. Fluids with NS at 100 mL/hr 9. Continue aggressive risk factor 10. Case management consult Thank you. Status: Acute Priority: High
--- NOTE | 2017-04-13 19:19 | CP.PCM.CON ---
History of Present Illness - History of Present Illness History of Present Illness: Podiatry Consult- Dr. Patterson 72 y.o female with PMH DM, HTN, HLD, and CAD consulted for bilaterally hallux ulceration. Patient is seen resting comfortably in bed and in NAD. Patient denies pain to her LE. Denies numbness or tingling. Patient denies calf tenderness. Denies n/v/sob/cp/chills/f/ or d. Past Patient History - Past Medical History & Family History Past Medical History?: Yes - Past Social History Smoking Status: Never Smoked - CARDIAC Hx Cardiac Disorders: Yes Hx Hypercholesterolemia: Yes Hx Hypertension: Yes - PULMONARY Hx Respiratory Disorders: No - NEUROLOGICAL Hx Neurological Disorder: No - HEENT Hx HEENT Problems: No - RENAL Hx Chronic Kidney Disease: No - ENDOCRINE/METABOLIC Hx Endocrine Disorders: Yes Hx Diabetes Mellitus Type 2: Yes - HEMATOLOGICAL/ONCOLOGICAL Hx Blood Disorders: No Hx AIDS: No Hx Human Immunodeficiency Virus (HIV): No - INTEGUMENTARY Hx Dermatological Problems: Yes Other/Comment: ulcers noted on bilateral great toes - MUSCULOSKELETAL/RHEUMATOLOGICAL Hx Musculoskeletal Disorders: No Hx Falls: No Other/Comment: let foot ulcer - GASTROINTESTINAL Hx Gastrointestinal Disorders: Yes Hx Hemorrhoids: Yes - GENITOURINARY/GYNECOLOGICAL Hx Genitourinary Disorders: No - PSYCHIATRIC Hx Psychophysiologic Disorder: No Hx Substance Use: No - SURGICAL HISTORY Hx Surgeries: No - ANESTHESIA Hx Anesthesia: Yes Hx Anesthesia Reactions: No Hx Malignant Hyperthermia: No Has any member of the family had a problem w/ anesthesia?: No Meds Allergies/Adverse Reactions: Allergies Allergy/AdvReac Type Severity Reaction Status Date / Time No Known Allergies Allergy Verified 04/12/17 20:08 - Medications Medications: Current Medications Aspirin (Aspirin Chewable) 81 mg PO DAILY [facility] Last Admin: 04/13/17 10:36 Dose: 81 mg Atorvastatin Calcium (Lipitor) 40 mg PO HS [facility] Enoxaparin Sodium (Lovenox) 40 mg SC DAILY [facility] PRN Reason: Protocol Last Admin: 04/13/17 10:37 Dose: 40 mg Glipizide (Glucotrol) 5 mg PO ACB [facility] Last Admin: 04/13/17 09:14 Dose: Not Given Insulin Human Regular (Humulin R) 0 units SC ACHS [facility] PRN Reason: Protocol Last Admin: 04/13/17 17:35 Dose: 1 units Pneumococcal Polyvalent Vaccine (Pneumovax 23 Vaccine) 0.5 ml IM .ONCE ONE Stop: 04/14/17 09:01 Physical Exam - Constitutional Appears: Well, Non-toxic, No Acute Distress - Extremities Exam Extremities exam: Negative for: calf tenderness Additional comments: Vasc: DP and PT weakly palpable, CFT delayed x 10 digits, temperature WNL Ortho: no pain with palpation to the plantar halluces Neuro: gross and protective sensation diminished Derm: severe hyperkeratotic lesions noted to the plantar halluces bilaterally with possible ulceration underneath, no fluctuatance, no crepitus, no erythema, no streaking, no purulence, no drainage noted Results - Vital Signs Recent Vital Signs: Last Vital Signs Temp 98.4 F 04/13/17 17:13 Pulse 85 04/13/17 18:21 Resp 20 04/13/17 18:21 BP 175/84 H 04/13/17 17:13 Pulse Ox 94 L 04/13/17 17:13 - Labs Result Diagrams: 04/13/17 07:00 04/12/17 20:54 Labs: Laboratory Results - last 24 hr 04/12/17 04/12/17 04/12/17 20:07 20:35 20:40 WBC RBC Hgb Hct MCV MCH MCHC RDW Plt Count MPV Neut % (Auto) Lymph % (Auto) [place] % (Auto) Eos % (Auto) Baso % (Auto) Neut # (Auto) Lymph # (Auto) [place] # (Auto) Eos # (Auto) Baso # (Auto) PT INR APTT pO2 56 H VBG pH 7.39 VBG pCO2 48 VBG HCO3 27.3 VBG Total CO2 30.6 H VBG O2 Sat (Calc) 94.7 H VBG Base Excess 3.3 H VBG Potassium 4.5 Sodium 136.0 Chloride 98.0 Glucose 563 H* Lactate 2.9 H FiO2 21.0 Crit Value Called To Dr rico Crit Value Called By Rt Crit Value Read Back Y Blood Gas Notified Time 2049 Potassium Carbon Dioxide Anion Gap BUN Creatinine Est GFR ( Amer) Est GFR (Non-Af Amer) POC Glucose (mg/dL) 473 H* Random Glucose Hemoglobin A1c Calcium Total Bilirubin AST ALT Alkaline Phosphatase Troponin I Total Protein Albumin Globulin Albumin/Globulin Ratio Triglycerides Cholesterol LDL Cholesterol Direct HDL Cholesterol Venous Blood Potassium 4.5 Urine Color Urine Clarity Urine pH Ur Specific [place] Urine Protein Urine Glucose (UA) Urine Ketones Urine Blood Urine Nitrate Urine Bilirubin Urine Urobilinogen Ur Leukocyte Esterase Urine RBC (Auto) Urine Microscopic WBC Ur Squamous Epith Cells Urine Bacteria Blood Type A POSITIVE Antibody Screen Negative BBK History Checked Patient has bt 04/12/17 04/12/17 04/12/17 20:49 20:54 20:54 WBC 5.7 RBC 4.39 Hgb 12.4 Hct 38.9 MCV 88.6 MCH 28.2 MCHC 31.9 L RDW 14.8 H Plt Count 228 MPV 10.3 Neut % (Auto) 69.7 Lymph % (Auto) 22.2 [place] % (Auto) 5.2 Eos % (Auto) 2.3 Baso % (Auto) 0.6 Neut # (Auto) 4.0 Lymph # (Auto) 1.3 [place] # (Auto) 0.3 Eos # (Auto) 0.1 Baso # (Auto) 0.0 PT INR APTT pO2 VBG pH VBG pCO2 VBG HCO3 VBG Total CO2 VBG O2 Sat (Calc) VBG Base Excess VBG Potassium Sodium 136 Chloride 97 L Glucose Lactate FiO2 Crit Value Called To Crit Value Called By Crit Value Read Back Blood Gas Notified Time Potassium 4.5 Carbon Dioxide 28 Anion Gap 16 BUN 13 Creatinine 0.8 Est GFR ( Amer) > 60 Est GFR (Non-Af Amer) > 60 POC Glucose (mg/dL) 436 H* Random Glucose 560 H* D Hemoglobin A1c Calcium 9.2 Total Bilirubin 0.4 AST 19 ALT 25 Alkaline Phosphatase 99 Troponin I < 0.0120 Total Protein 7.5 Albumin 3.8 Globulin 3.7 Albumin/Globulin Ratio 1.0 Triglycerides 169 H Cholesterol 268 H LDL Cholesterol Direct 166 H HDL Cholesterol 56 Venous Blood Potassium Urine Color Urine Clarity Urine pH Ur Specific [place] Urine Protein Urine Glucose (UA) Urine Ketones Urine Blood Urine Nitrate Urine Bilirubin Urine Urobilinogen Ur Leukocyte Esterase Urine RBC (Auto) Urine Microscopic WBC Ur Squamous Epith Cells Urine Bacteria Blood Type Antibody Screen BBK History Checked 04/12/17 04/12/17 04/12/17 20:55 21:15 21:15 WBC RBC Hgb Hct MCV MCH MCHC RDW Plt Count MPV Neut % (Auto) Lymph % (Auto) [place] % (Auto) Eos % (Auto) Baso % (Auto) Neut # (Auto) Lymph # (Auto) [place] # (Auto) Eos # (Auto) Baso # (Auto) PT 9.7 L INR 0.9 APTT 26.0 pO2 VBG pH VBG pCO2 VBG HCO3 VBG Total CO2 VBG O2 Sat (Calc) VBG Base Excess VBG Potassium Sodium Chloride Glucose Lactate FiO2 Crit Value Called To Crit Value Called By Crit Value Read Back Blood Gas Notified Time Potassium Carbon Dioxide Anion Gap BUN Creatinine Est GFR ( Amer) Est GFR (Non-Af Amer) POC Glucose (mg/dL) Random Glucose Hemoglobin A1c 16.0 H Calcium Total Bilirubin AST ALT Alkaline Phosphatase Troponin I Total Protein Albumin Globulin Albumin/Globulin Ratio Triglycerides Cholesterol LDL Cholesterol Direct HDL Cholesterol Venous Blood Potassium Urine Color Straw Urine Clarity Clear Urine pH 6.0 Ur Specific [place] 1.024 Urine Protein 30 Urine Glucose (UA) >=500 Urine Ketones Negative Urine Blood Moderate Urine Nitrate Negative Urine Bilirubin Negative Urine Urobilinogen 0.2-1.0 Ur Leukocyte Esterase Neg Urine RBC (Auto) 20 H Urine Microscopic WBC 2 Ur Squamous Epith Cells 1 Urine Bacteria Rare Blood Type Antibody Screen BBK History Checked 04/12/17 04/12/17 04/13/17 22:28 23:53 05:46 WBC RBC Hgb Hct MCV MCH MCHC RDW Plt Count MPV Neut % (Auto) Lymph % (Auto) [place] % (Auto) Eos % (Auto) Baso % (Auto) Neut # (Auto) Lymph # (Auto) [place] # (Auto) Eos # (Auto) Baso # (Auto) PT INR APTT pO2 VBG pH VBG pCO2 VBG HCO3 VBG Total CO2 VBG O2 Sat (Calc) VBG Base Excess VBG Potassium Sodium Chloride Glucose Lactate FiO2 Crit Value Called To Crit Value Called By Crit Value Read Back Blood Gas Notified Time Potassium Carbon Dioxide Anion Gap BUN Creatinine Est GFR ( Amer) Est GFR (Non-Af Amer) POC Glucose (mg/dL) 405 H* 302 H 234 H Random Glucose Hemoglobin A1c Calcium Total Bilirubin AST ALT Alkaline Phosphatase Troponin I Total Protein Albumin Globulin Albumin/Globulin Ratio Triglycerides Cholesterol LDL Cholesterol Direct HDL Cholesterol Venous Blood Potassium Urine Color Urine Clarity Urine pH Ur Specific [place] Urine Protein Urine Glucose (UA) Urine Ketones Urine Blood Urine Nitrate Urine Bilirubin Urine Urobilinogen Ur Leukocyte Esterase Urine RBC (Auto) Urine Microscopic WBC Ur Squamous Epith Cells Urine Bacteria Blood Type Antibody Screen BBK History Checked 04/13/17 04/13/17 04/13/17 07:00 07:59 13:25 WBC 5.3 RBC 4.01 Hgb 11.5 L Hct 35.1 MCV 87.5 MCH 28.8 MCHC 32.9 L RDW 14.9 H Plt Count 212 MPV Neut % (Auto) Lymph % (Auto) [place] % (Auto) Eos % (Auto) Baso % (Auto) Neut # (Auto) Lymph # (Auto) [place] # (Auto) Eos # (Auto) Baso # (Auto) PT INR APTT pO2 VBG pH VBG pCO2 VBG HCO3 VBG Total CO2 VBG O2 Sat (Calc) VBG Base Excess VBG Potassium Sodium Chloride Glucose Lactate FiO2 Crit Value Called To Crit Value Called By Crit Value Read Back Blood Gas Notified Time Potassium Carbon Dioxide Anion Gap BUN Creatinine Est GFR ( Amer) Est GFR (Non-Af Amer) POC Glucose (mg/dL) 213 H 221 H Random Glucose Hemoglobin A1c Calcium Total Bilirubin AST ALT Alkaline Phosphatase Troponin I Total Protein Albumin Globulin Albumin/Globulin Ratio Triglycerides Cholesterol LDL Cholesterol Direct HDL Cholesterol Venous Blood Potassium Urine Color Urine Clarity Urine pH Ur Specific [place] Urine Protein Urine Glucose (UA) Urine Ketones Urine Blood Urine Nitrate Urine Bilirubin Urine Urobilinogen Ur Leukocyte Esterase Urine RBC (Auto) Urine Microscopic WBC Ur Squamous Epith Cells Urine Bacteria Blood Type Antibody Screen BBK History Checked 04/13/17 17:38 WBC RBC Hgb Hct MCV MCH MCHC RDW Plt Count MPV Neut % (Auto) Lymph % (Auto) [place] % (Auto) Eos % (Auto) Baso % (Auto) Neut # (Auto) Lymph # (Auto) [place] # (Auto) Eos # (Auto) Baso # (Auto) PT INR APTT pO2 VBG pH VBG pCO2 VBG HCO3 VBG Total CO2 VBG O2 Sat (Calc) VBG Base Excess VBG Potassium Sodium Chloride Glucose Lactate FiO2 Crit Value Called To Crit Value Called By Crit Value Read Back Blood Gas Notified Time Potassium Carbon Dioxide Anion Gap BUN Creatinine Est GFR ( Amer) Est GFR (Non-Af Amer) POC Glucose (mg/dL) 170 H Random Glucose Hemoglobin A1c Calcium Total Bilirubin AST ALT Alkaline Phosphatase Troponin I Total Protein Albumin Globulin Albumin/Globulin Ratio Triglycerides Cholesterol LDL Cholesterol Direct HDL Cholesterol Venous Blood Potassium Urine Color Urine Clarity Urine pH Ur Specific [place] Urine Protein Urine Glucose (UA) Urine Ketones Urine Blood Urine Nitrate Urine Bilirubin Urine Urobilinogen Ur Leukocyte Esterase Urine RBC (Auto) Urine Microscopic WBC Ur Squamous Epith Cells Urine Bacteria Blood Type Antibody Screen BBK History Checked Assessment & Plan - Assessment and Plan (Free Text) Assessment: 72 y.o female with PMH DM, HTN, HLD, and CAD consulted for bilaterally hallux hyperkeratotic lesions with possible ulcerations underneath Plan: Patient examined and evaluated Vitals, labs, chart reviewed (WBC=5.3, afebrile) Discussed plan with attending Dr. Patterson Lesions on bilaterally halluces-stable, no clinical signs of infection Will see patient on the floors for further evaluation and plan Podiatry will continue to follow while on floors Thank you for the consult
--- NOTE | 2017-04-13 22:04 | CP.PCM.PN ---
Subjective - Date & Time of Evaluation Date of Evaluation: 04/13/17 Time of Evaluation: 08:30 - Subjective Subjective: Patient seen and examined bedside.Elderly female of stated age lying comfortably in bed . Appears in NAD. BP elevated. With slow speech andsome expressive aphasia / left facial droop denies any Chest pain ,SOB, visual problems, BAILON MRI head showed :sub cm high white matter infarcts as above. Right much more conspicuous and definitive than left. No hemorrhage or mass effect seen. Objective - Vital Signs/Intake and Output Vital Signs (last 24 hours): Temp Pulse Resp BP Pulse Ox 97.3 F L 86 20 173/79 H 97 04/13/17 20:04 04/13/17 20:04 04/13/17 20:04 04/13/17 20:04 04/13/17 20:04 - Medications Medications: Current Medications Aspirin (Aspirin Chewable) 81 mg PO DAILY [facility] Last Admin: 04/13/17 10:36 Dose: 81 mg Atorvastatin Calcium (Lipitor) 40 mg PO HS [facility] Last Admin: 04/13/17 21:46 Dose: 40 mg Enoxaparin Sodium (Lovenox) 40 mg SC DAILY [facility] PRN Reason: Protocol Last Admin: 04/13/17 10:37 Dose: 40 mg Glipizide (Glucotrol) 5 mg PO ACB [facility] Last Admin: 04/13/17 09:14 Dose: Not Given Insulin Human Regular (Humulin R) 0 units SC [facility] PRN Reason: Protocol Last Admin: 04/13/17 21:46 Dose: Not Given Pneumococcal Polyvalent Vaccine (Pneumovax 23 Vaccine) 0.5 ml IM .ONCE ONE Stop: 04/14/17 09:01 - Labs Labs: 04/13/17 07:00 04/12/17 20:54 PT 9.7 Seconds (9.8-13.1) L 04/12/17 21:15 INR 0.9 (0.9-1.2) 04/12/17 21:15 APTT 26.0 Seconds (25.6-37.1) 04/12/17 21:15 - Constitutional Appears: Non-toxic, No Acute Distress - Head Exam Head Exam: ATRAUMATIC, NORMAL INSPECTION, NORMOCEPHALIC - Eye Exam Eye Exam: EOMI, Normal appearance, PERRL Pupil Exam: NORMAL ACCOMODATION - ENT Exam ENT Exam: Mucous Membranes Moist, Normal Exam - Neck Exam Neck Exam: Full ROM, Normal Inspection - Respiratory Exam Respiratory Exam: Clear to Ausculation Bilateral, NORMAL BREATHING PATTERN. absent: Rales, Rhonchi, Wheezes - Cardiovascular Exam Cardiovascular Exam: REGULAR RHYTHM, RRR, +S1, +S2. absent: JVD - GI/Abdominal Exam GI & Abdominal Exam: Soft, Normal Bowel Sounds. absent: Distended, Guarding, Tenderness, Rebound - Rectal Exam Rectal Exam: Deferred - Extremities Exam Extremities Exam: Full ROM, Normal Capillary Refill, Normal Inspection. absent : Pedal Edema - Back Exam Back Exam: NORMAL INSPECTION - Neurological Exam Neurological Exam: Alert, Awake Additional comments: left facial droop Power intact sensory intact some speech difficulty - Psychiatric Exam Psychiatric exam: Normal Affect, Normal Mood - Skin Skin Exam: Dry, Intact, Normal Color, Warm Assessment and Plan - Assessment and Plan (Free Text) Assessment: 72 y/o F PMH DM, HTN, HLD brought to the ED with acutely worsening altered mental status though it has been progressively worsening over the past few months; she has been speaking less since yesterday.Patient's was recently hospitalized and was unable to take care of his , and she has not been eating well, or taking her medications. CT head was neg for acute CVA or bleed. Patient glucose elevated 563, HD stable. MRI head showed acute stroke patient has left facial droop and and some expressive aphasia Neuro consulted . patient admitted to telemetry 1. Acute CVA expressive aphasia/dysarthria NIHSS 5 Continue telemetry monitoring Neurochecks Q4 hours Continue ASA, Statin plavix Neurology consult appreciated Will perform carotid doppler, Echo with bubble study Permissive hypertension for now PT/OT/ speech eval patient passed swallow eval 2.Uncontrolled DM continue accuchecks, insulin coverage Diabetic diet resume home meds Hgb A1c 16 3. Hypertension Allow permissive hypertension for now hold Enalapril 4. Dyslipidemia Started Atorvastatin 40 mg PO 5.DVT ppx Lovenox
[2017-04-14 05:34] LABS: HEMOGLOBIN 11.8 g/dL (12.0-16.0); MEAN CELL VOLUME 88.6 fl (81.0-99.0); MEAN CORPUSCULAR HEMOGLOBIN 28.6 pg (27.0-31.0); MEAN CORPUSCULAR HGB CONC 32.2 g/dL (33.0-37.0); RBC 4.14 Mil/uL (3.80-5.20); RED CELL DISTRIBUTION WIDTH 14.8 % (11.5-14.5); WHITE BLOOD COUNT 5.5 K/uL (4.8-10.8)
[2017-04-14 05:36] LABS: BLOOD UREA NITROGEN 10 mg/dl (7-17); CALCIUM 9.1 mg/dL (8.4-10.2); GFR AFRICAN-AMERICAN > 60; GFR NON-AFRICAN AMERICAN > 60
[2017-04-14 08:28] VITALS: BMI 27.4
--- NOTE | 2017-04-14 08:35 | CARD ---
APPROVED REPORT EXAM: Two-dimensional and M-mode echocardiogram with Doppler and color Doppler. Other Information Quality : AverageRhythm : NSR INDICATION CVA/TIA 2D DIMENSIONS IVSd1.28 (0.7-1.1cm)LVDd4.18 (3.9-5.9cm) LVOT Diameter2.17 (1.8-2.4cm)PWd0.97 (0.7-1.1cm) IVSs1.58 (0.8-1.2cm)LVDs3.43 (2.5-4.0cm) FS (%) 17.8 %PWs1.46 (0.8-1.2cm) M-Mode DIMENSIONS Left Atrium (MM)3.41 (2.5-4.0cm)IVSd1.12 (0.7-1.1cm) Aortic Root3.41 (2.2-3.7cm)LVDd5.32 (4.0-5.6cm) Aortic Cusp Exc.2.09 (1.5-2.0cm)PWd1.03 (0.7-1.1cm) IVSs1.47 cmFS (%) 36 % LVDs3.41 (2.0-3.8cm)PWs1.44 cm Mitral Valve MV E Rxouxtjh98.1cm/sMV DECEL [id number] A Etjsszcz80.4cm/s MV CFP30rgV/A ratio0.9MVA (PHT)3.30cm2 TDI Lateral E' Peak V5.13cm/sMedial E' Peak V6.27cm/sE/Lateral E'15.0 E/Medial E'12.3 Pulmonary Valve PV Peak Ovfzkyaf15.3cm/s Tricuspid Valve TR Peak Oyyaalkz811le/sRAP BHQFLQEL76yvEsBE Peak Gr.34mmHg QLPF96bpPm LEFT VENTRICLE The left ventricle is normal size. There is normal left ventricular wall thickness. Left ventricle systolic function is normal. The Ejection Fraction is 60-65%. There is normal LV segmental wall motion. Transmitral Doppler flow pattern is Grade I-abnormal relaxation pattern. RIGHT VENTRICLE The right ventricle is normal size. There is normal right ventricular wall thickness. The right ventricular systolic function is normal. ATRIA The left atrium size is normal. The right atrium size is normal. AORTIC VALVE The aortic valve is normal in structure. No aortic regurgitation is present. There is no aortic valvular stenosis. MITRAL VALVE The mitral valve is normal in structure. There is no evidence of mitral valve prolapse. There is no mitral valve stenosis. There is no mitral valve regurgitation noted. TRICUSPID VALVE The tricuspid valve is normal in structure. There is trace tricuspid regurgitation. Right ventricular systolic pressure is estimated at 43 mmHg. There is mild-moderate pulmonary hypertension. PULMONIC VALVE The pulmonary valve is normal in structure. There is no pulmonic valvular regurgitation. GREAT VESSELS The aortic root is normal in size. The IVC is normal in size and collapses >50% with inspiration. PERICARDIAL EFFUSION The pericardium appears normal. <Conclusion> The left ventricle is normal size. There is normal left ventricular wall thickness. There is normal LV segmental wall motion. Left ventricle systolic function is normal. The Ejection Fraction is 60-65%. Transmitral Doppler flow pattern is Grade I-abnormal relaxation pattern. There is trace tricuspid regurgitation. Right ventricular systolic pressure is estimated at 43 mmHg. There is mild-moderate pulmonary hypertension.
[2017-04-14] MEDS: GlipiZIDE 10 mg SR Tab PO SCH ×2 (08:40→17:58)
[2017-04-14] MEDS: Insulin Regular 100 units/ml SC SCH ×6 (08:40→22:21)
[2017-04-14] MEDS: Enoxaparin 40 mg Syringe SC SCH (08:41)
--- NOTE | 2017-04-14 08:47 | CP.PCM.PN ---
<Amadou Esquivel - Last Filed: 04/14/17 16:51> Subjective - Date & Time of Evaluation Date of Evaluation: 04/14/17 Time of Evaluation: 08:47 - Subjective Subjective: Progress Note for Hospitalist- Dr. Frances 72 y.o female seen and evaluated for CVA. Patient was seen at bedside this morning sitting comfortably enjoying breakfast. Patient appears in NAD and has more energy compared to yesterday. Patient denies n/v/sob/cp/chills or f. Objective - Vital Signs/Intake and Output Vital Signs (last 24 hours): Temp Pulse Resp BP Pulse Ox 97.6 F 76 18 202/81 H 95 04/14/17 08:00 04/14/17 08:00 04/14/17 08:00 04/14/17 08:00 04/14/17 08:00 - Medications Medications: Current Medications Aspirin (Aspirin Chewable) 81 mg PO DAILY [facility] Last Admin: 04/14/17 08:41 Dose: 81 mg Atorvastatin Calcium (Lipitor) 40 mg PO HS [facility] Last Admin: 04/13/17 21:46 Dose: 40 mg Clopidogrel Bisulfate (Plavix) 75 mg PO DAILY [facility] Enoxaparin Sodium (Lovenox) 40 mg SC DAILY [facility] PRN Reason: Protocol Last Admin: 04/14/17 08:41 Dose: 40 mg Glipizide (Glucotrol Xl) 10 mg PO BRKDIN [facility] Last Admin: 04/14/17 08:40 Dose: 10 mg Insulin Human Regular (Humulin R) 0 units SC ACHS [facility] PRN Reason: Protocol Last Admin: 04/14/17 08:40 Dose: Not Given Metformin HCl (Glucophage) 1,000 mg PO BID [facility] Last Admin: 04/14/17 08:41 Dose: 1,000 mg Pneumococcal Polyvalent Vaccine (Pneumovax 23 Vaccine) 0.5 ml IM .ONCE ONE Stop: 04/14/17 09:01 Repaglinide (Prandin) 1 mg PO TID [facility] Last Admin: 04/14/17 08:41 Dose: 1 mg Sitagliptin Phosphate (Januvia) 50 mg PO BID [facility] Last Admin: 04/14/17 08:41 Dose: 50 mg - Labs Labs: 04/14/17 04:20 04/14/17 04:20 PT 9.7 Seconds (9.8-13.1) L 04/12/17 21:15 INR 0.9 (0.9-1.2) 04/12/17 21:15 APTT 26.0 Seconds (25.6-37.1) 04/12/17 21:15 - Constitutional Appears: Non-toxic, No Acute Distress - Head Exam Head Exam: ATRAUMATIC, NORMAL INSPECTION, NORMOCEPHALIC - Eye Exam Eye Exam: EOMI, Normal appearance, PERRL Pupil Exam: NORMAL ACCOMODATION - ENT Exam ENT Exam: Mucous Membranes Moist - Neck Exam Neck Exam: Full ROM, Normal Inspection - Respiratory Exam Respiratory Exam: Clear to Ausculation Bilateral, NORMAL BREATHING PATTERN - Cardiovascular Exam Cardiovascular Exam: REGULAR RHYTHM, RRR, +S1, +S2. absent: JVD - GI/Abdominal Exam GI & Abdominal Exam: Soft, Normal Bowel Sounds. absent: Tenderness - Extremities Exam Extremities Exam: Normal Capillary Refill. absent: Calf Tenderness - Neurological Exam Neurological Exam: Alert, Awake - Psychiatric Exam Psychiatric exam: Normal Affect, Normal Mood - Skin Skin Exam: Dry, Intact, Normal Color, Warm - Additional Findings Additional findings: Patient able to grin with less noticeable left facial droop Power intact sensory intact speech difficulty improved Assessment and Plan - Assessment and Plan (Free Text) Assessment: 72 y/o F with PMH of DM, HTN, HLD seen and evaluated for acute stroke Plan: 1. Acute stroke Aphasia improved Continue telemetry monitoring Neurochecks Q4 hours Continue ASA, Statin plavix Neurology consult appreciated Carotid Doppler IMPRESSION: Per NASCET criteria, less than 50 percent stenosis of the bilateral internal carotid arteries Unremarkable CT Angiography of the Brain Echocardiogram- normal EF, mild and moderate pulmonary hypertension. Brain MRI IMPRESSION: Findings compatible with sub cm high white matter infarcts as above. Right much more conspicuous and definitive than left. No hemorrhage or mass effect seen. Head CT IMPRESSION: 1. Nonspecific white matter changes. Acute infarction may be CT occult within first 24 hours. If a focal deficit persists, consider followup CT or MRI for further evaluation. 2. Incidental/non-acute findings are described above. PT/OT/ speech evaluation Patient passed swallow eval 2.Uncontrolled DM Continue accuchecks, insulin coverage c/w Diabetic diet resume home meds Hgb A1c 16 3. Hypertension Allow permissive hypertension for now d/w Neurology -will start low dosage of Enalapril 2.5 PO BID 4. Dyslipidemia c/w Atorvastatin 40 mg PO 5. Diabetic foot calluses with possible underlying ulceration podiatry consulted recommendations appreciated 6.DVT ppx c/w Lovenox <Katherine Frances - Last Filed: 04/14/17 17:21> Objective - Vital Signs/Intake and Output Vital Signs (last 24 hours): Temp Pulse Resp BP Pulse Ox 98.0 F 91 H 18 169/92 H 943 H 04/14/17 16:04 04/14/17 16:04 04/14/17 16:04 04/14/17 16:04 04/14/17 16:04 - Medications Medications: Current Medications Aspirin (Aspirin Chewable) 81 mg PO DAILY [facility] Last Admin: 04/14/17 08:41 Dose: 81 mg Atorvastatin Calcium (Lipitor) 40 mg PO HS [facility] Last Admin: 04/13/17 21:46 Dose: 40 mg Clopidogrel Bisulfate (Plavix) 75 mg PO DAILY [facility] Last Admin: 04/14/17 08:41 Dose: 75 mg Enalapril Maleate (Vasotec) 2.5 mg PO BID [facility] Enoxaparin Sodium (Lovenox) 40 mg SC DAILY [facility] PRN Reason: Protocol Last Admin: 04/14/17 08:41 Dose: 40 mg Glipizide (Glucotrol Xl) 10 mg PO BRKDIN [facility] Last Admin: 04/14/17 08:40 Dose: 10 mg Insulin Human Regular (Humulin R) 0 units SC ACHS [facility] PRN Reason: Protocol Last Admin: 04/14/17 13:00 Dose: Not Given Metformin HCl (Glucophage) 1,000 mg PO BID [facility] Last Admin: 04/14/17 08:41 Dose: 1,000 mg Repaglinide (Prandin) 1 mg PO TID [facility] Last Admin: 04/14/17 15:02 Dose: Not Given Sitagliptin Phosphate (Januvia) 50 mg PO BID [facility] Last Admin: 04/14/17 08:41 Dose: 50 mg - Labs Labs: 04/14/17 04:20 04/14/17 04:20 PT 9.7 Seconds (9.8-13.1) L 04/12/17 21:15 INR 0.9 (0.9-1.2) 04/12/17 21:15 APTT 26.0 Seconds (25.6-37.1) 04/12/17 21:15 Attending/Attestation - Attestation I have personally seen and examined this patient.: Yes I have fully participated in the care of the patient.: Yes I have reviewed all pertinent clinical information, including history, physical exam and plan: Yes Notes (Text): 04/14/17 17:17 Acute CVA - cont ASA, Plavix and Statin - PT, OT , Speech consult Uncontrolled HTN - discused with Neurology - may start low dose anti hypertensive this afternoon - will start Vasotec 2.5 mg bid ( pt was on 10 mg bid at home ) Uncontrolled DM type II with Hyperglycemia - d/c Mmetformin as pt received IV contrast - add Levemir 8 units q hs - cont Januvia and Prandin and Glucutrol
--- NOTE | 2017-04-14 08:54 | CP.PCM.PN ---
Subjective - Date & Time of Evaluation Date of Evaluation: 04/14/17 Time of Evaluation: 08:51 - Subjective Subjective: Ms. Black was seen and examined at the bedside. She is alert, oriented, able to answer questions and follow simple commands. She denies any headache, blurred vision, dizziness, lightheadedness, nausea, or vomiting. Echocardiogram 04/13/2017 showed normal EF, mild and moderate pulmonary hypertension.There was no untoward events overnight. Objective - Vital Signs/Intake and Output Vital Signs (last 24 hours): Temp Pulse Resp BP Pulse Ox 97.6 F 76 18 202/81 H 95 04/14/17 08:00 04/14/17 08:00 04/14/17 08:00 04/14/17 08:00 04/14/17 08:00 - Medications Medications: Current Medications Aspirin (Aspirin Chewable) 81 mg PO DAILY [facility] Last Admin: 04/14/17 08:41 Dose: 81 mg Atorvastatin Calcium (Lipitor) 40 mg PO HS [facility] Last Admin: 04/13/17 21:46 Dose: 40 mg Clopidogrel Bisulfate (Plavix) 75 mg PO DAILY [facility] Enoxaparin Sodium (Lovenox) 40 mg SC DAILY [facility] PRN Reason: Protocol Last Admin: 04/14/17 08:41 Dose: 40 mg Glipizide (Glucotrol Xl) 10 mg PO BRKDIN [facility] Last Admin: 04/14/17 08:40 Dose: 10 mg Insulin Human Regular (Humulin R) 0 units SC ACHS [facility] PRN Reason: Protocol Last Admin: 04/14/17 08:49 Dose: 3 units Metformin HCl (Glucophage) 1,000 mg PO BID [facility] Last Admin: 04/14/17 08:41 Dose: 1,000 mg Pneumococcal Polyvalent Vaccine (Pneumovax 23 Vaccine) 0.5 ml IM .ONCE ONE Stop: 04/14/17 09:01 Repaglinide (Prandin) 1 mg PO TID [facility] Last Admin: 04/14/17 08:41 Dose: 1 mg Sitagliptin Phosphate (Januvia) 50 mg PO BID [facility] Last Admin: 04/14/17 08:41 Dose: 50 mg - Labs Labs: 04/14/17 04:20 04/14/17 04:20 PT 9.7 Seconds (9.8-13.1) L 04/12/17 21:15 INR 0.9 (0.9-1.2) 04/12/17 21:15 APTT 26.0 Seconds (25.6-37.1) 04/12/17 21:15 - Constitutional Appears: No Acute Distress - Head Exam Head Exam: NORMAL INSPECTION - Neurological Exam Neurological Exam: Alert, Awake Neuro motor strength exam: Left Upper Extremity: 5, Right Upper Extremity: 5, Left Lower Extremity: 5, Right Lower Extremity: 5 Additional comments: Normal, Facial Palsey w/Forehead Movement: Normal, Facial Palsey w/o Forehead Movement: Abnormal Left, Facial Sensation: Abnormal Left, Finger to Nose: Normal, Heel to Cervantes: Normal, Romberg: Normal Sensory exam: Lower Extremity Light Touch: Normal, Lower Extremity Pin Prick: Normal, Upper Extremity Light Touch: Normal, Upper Extremity Pin Prick: Normal Neuro motor strength exam: Left Upper Extremity: 4, Right Upper Extremity: 4, Left Lower Extremity: 4, Right Lower Extremity: 4 DTR: Achilles Tendon Left: 2+, Achilles Tendon Right: 2+, Bicep Left: 2+, Bicep Right: 2+, Brachioradialis Left: 2+, Brachioradialis Right: 2+, Patellar Left: 2 +, Patellar Right: 2+, Tricep Left: 2+, Tricep Right: 2+ Assessment and Plan (1) CVA (cerebral vascular accident) Assessment & Plan: Case discussed with Dr. Alberts, continue all current medical, physical, occupational, and speech therapies. Follow up carotid doppler. Recommend CTA of the head and neck. Status: Acute
[2017-04-14] MEDS ORDERED: Pneumococcal 23-Valent Vaccine IM ONE (09:00)
[2017-04-14] MEDS ORDERED: Influenza Vaccine(65YR UP)/PF 180 MCG/0.5 ML SYRINGE IM ONE (09:00)
--- NOTE | 2017-04-14 09:43 | CP.PCM.PN ---
Subjective - Date & Time of Evaluation Date of Evaluation: 04/14/17 Time of Evaluation: 09:38 - Subjective Subjective: 72 y.o female with PMH DM, HTN, HLD, and CAD consulted for bilateral hallux calluses with possible underlying ulceration. Patient is AAO x 3, seen resting comfortably in bed and in NAD. Patient denies pain to her LE. Denies numbness or tingling. Patient denies calf tenderness. Denies n/v/sob/cp/chills/f/ or d. Objective - Vital Signs/Intake and Output Vital Signs (last 24 hours): Temp Pulse Resp BP Pulse Ox 97.6 F 76 18 202/81 H 95 04/14/17 08:00 04/14/17 08:00 04/14/17 08:00 04/14/17 08:00 04/14/17 08:00 - Medications Medications: Current Medications Aspirin (Aspirin Chewable) 81 mg PO DAILY [facility] Last Admin: 04/14/17 08:41 Dose: 81 mg Atorvastatin Calcium (Lipitor) 40 mg PO HS [facility] Last Admin: 04/13/17 21:46 Dose: 40 mg Clopidogrel Bisulfate (Plavix) 75 mg PO DAILY [facility] Enoxaparin Sodium (Lovenox) 40 mg SC DAILY [facility] PRN Reason: Protocol Last Admin: 04/14/17 08:41 Dose: 40 mg Glipizide (Glucotrol Xl) 10 mg PO BRKDIN [facility] Last Admin: 04/14/17 08:40 Dose: 10 mg Insulin Human Regular (Humulin R) 0 units SC ACHS [facility] PRN Reason: Protocol Last Admin: 04/14/17 09:01 Dose: 2 units Metformin HCl (Glucophage) 1,000 mg PO BID [facility] Last Admin: 04/14/17 08:41 Dose: 1,000 mg Repaglinide (Prandin) 1 mg PO TID [facility] Last Admin: 04/14/17 08:41 Dose: 1 mg Sitagliptin Phosphate (Januvia) 50 mg PO BID [facility] Last Admin: 04/14/17 08:41 Dose: 50 mg - Labs Labs: 04/14/17 04:20 04/14/17 04:20 PT 9.7 Seconds (9.8-13.1) L 04/12/17 21:15 INR 0.9 (0.9-1.2) 04/12/17 21:15 APTT 26.0 Seconds (25.6-37.1) 04/12/17 21:15 - Constitutional Appears: Well, Non-toxic, No Acute Distress - Extremities Exam Additional comments: LE focused exam: Vasc: DP and PT weakly palpable, CFT delayed x 10 digits, temperature WNL, no edema noted b/l Ortho: no pain with palpation to the plantar callosities Neuro: Epicritic and protective sensation grossly intact b/l Derm: severe hyperkeratotic lesions noted to the plantar halluces bilaterally with possible ulceration underneath, no fluctuatance, no crepitus, no erythema, no streaking, no purulence, no drainage noted - Neurological Exam Neurological Exam: Alert, Awake, Oriented x3 - Psychiatric Exam Psychiatric exam: Normal Affect, Normal Mood Assessment and Plan - Assessment and Plan (Free Text) Assessment: 72 y.o female with PMH DM, HTN, HLD, and CAD consulted for bilateral hallux hyperkeratotic lesions with possible ulcerations underneath Plan: Patient seen and evaluated at bedside Plan discussed with attending Dr. Patterson Afebrile, absent leukocytosis No dressing applied to feet b/l Arterial doppler studies to be performed for assessment of bloodflow to b/l LE before debridement of ulcerations Podiatry will continue to follow while patient in house
--- NOTE | 2017-04-14 09:45 | CARD ---
APPROVED REPORT EKG Measurement Heart [id number] <Conclusion> Sinus rhythm with 1st degree AV block Nonspecific ST and T wave abnormality Abnormal ECG
[2017-04-14] MEDS ORDERED: Iodixanol 320 MG/ML 100 ML BOTTLE IV ONE (14:02)
[2017-04-14] MEDS ORDERED: Sodium Chloride 0.9% 50 ML IV ONE (14:03)
--- NOTE | 2017-04-14 15:22 | CT ---
PROCEDURE: CT Angiography of the neck with contrast HISTORY: CVa COMPARISON: None available. TECHNIQUE: Contiguous axial images of the neck were obtained from the level of the skull-base to the superior mediastinum in the arteriographic phase of enhancement. Coronal and sagittal reformats or also generated. IV contrast dose: 100 cc Visipaque Radiation Dose - DLP: 610 mGy-cm This CT exam was performed using one or more of the following dose reduction techniques: Automated exposure control, adjustment of the mA and/or kV according to patient size, and/or use of iterative reconstruction technique. FINDINGS: RIGHT CAROTID ARTERIES: Common Carotid Artery: Normal. Carotid Bifurcation: Normal. Internal Carotid Artery:There is calcified plaque with mild stenosis External Carotid Artery (proximal branches): Normal. LEFT CAROTID ARTERIES: Common Carotid Artery: Normal. Carotid Bifurcation: Normal. Internal Carotid Artery:Calcified plaque with mild stenosis External Carotid Artery (proximal branches): Normal. VERTEBRAL ARTERIES: Right Vertebral Artery: Normal. Left Vertebral Artery: Normal. OTHER FINDINGS: None. IMPRESSION: Calcified plaque in the proximal internal carotid arteries bilaterally with mild stenosis. PROCEDURE: CT Angiography of the Brain. HISTORY: CVa COMPARISON: None available. TECHNIQUE: CT angiography of the intracranial arteries was performed. Coronal and sagittal maximum intensity projection reformated images were generated. This CT exam was performed using one or more of the following dose reduction techniques: Automated exposure control, adjustment of the mA and/or kV according to patient size, and/or use of iterative reconstruction technique. FINDINGS: INTERNAL CEREBRAL ARTERIES: Unremarkable. The skull base, petrous, cavernous and supraclinoid segments are bilaterally widely patent. ANTERIOR CEREBRAL ARTERIES: Unremarkable. A1 and A2 segments are widely patent. Smaller distal branches unremarkable, as visualized. MIDDLE CEREBRAL ARTERIES: Unremarkable. M1 and M2 segments are widely patent. Perisylvian branches grossly symmetric. POSTERIOR CIRCULATION: Basilar Artery: Unremarkable. Distal Vertebral Arteries: Unremarkable. Posterior Cerebral Arteries: Unremarkable. Posterior Inferior Cerebellar Arteries: Unremarkable. ANEURYSM/ VASCULAR MALFORMATIONS: None. OTHER FINDINGS: None. IMPRESSION: Unremarkable CT Angiography of the Brain.
--- NOTE | 2017-04-14 15:41 | US ---
PROCEDURE: Duplex ultrasound of the carotid and vertebral arteries. HISTORY: cva COMPARISON: None available. TECHNIQUE: Grayscale and duplex Doppler evaluation of the cervical carotid and vertebral arteries were performed. The common carotid, carotid bifurcations and cervical ICA and proximal ECA were evaluated. The vertebral arteries were evaluated for gross patency and direction. FINDINGS: RIGHT CAROTID ARTERIES: Common Carotid Artery: Normal. Maximal flow velocity of 101.1 cm/s. Carotid Bifurcation: Calcific plaque. Internal Carotid Artery:Normal. Maximal flow velocity of 97.2 cm/s. External Carotid Artery (proximal branches): Normal. Maximal flow velocity of 103.7 cm/s. ICA/CCA Ratio: 1.6 LEFT CAROTID ARTERIES: Common Carotid Artery: Normal. Maximal flow velocity of 93.3 cm/s. Carotid Bifurcation: Calcific plaque. Internal Carotid Artery:Normal. Maximal flow velocity of 115.3 cm/s. External Carotid Artery (proximal branches): Normal. Maximal flow velocity of 101.1 cm/s. ICA/CCA Ratio: 1.9 VERTEBRAL ARTERIES: Right Vertebral Artery: Patent. Antegrade flow. Left Vertebral Artery: Patent. Antegrade flow. OTHER FINDINGS: None. IMPRESSION: Per NASCET criteria, less than 50 percent stenosis of the bilateral internal carotid arteries.
--- NOTE | 2017-04-14 15:50 | US ---
PROCEDURE: Duplex ultrasound of the bilateral lower extremity arteries. HISTORY: Assess blood flow prior to debridement COMPARISON: None available. TECHNIQUE: Grayscale and duplex Doppler evaluation of the bilateral common femoral, superficial femoral, popliteal, posterior tibial and dorsalis pedis arteries was performed.. FINDINGS: RIGHT LOWER EXTREMITY: RIGHT COMMON FEMORAL ARTERY: Calcified partially ulcerated plaque formation RIGHT SUPERFICIAL FEMORAL ARTERY: Widely patent. Maximal flow velocity of 101.1 cm/s. RIGHT POPLITEAL ARTERY:Widely patent. Maximal flow velocity of 127.4 cm/s. RIGHT POSTERIOR TIBIAL ARTERY: Widely patent. Maximal flow velocity of 107.6 cm/s. RIGHT DORSALIS PEDIS ARTERY: Widely patent. Maximal flow velocity of 50.2 cm/s. LEFT LOWER EXTREMITY: LEFT COMMON FEMORAL ARTERY: Widely patent. Maximal flow velocity of 114.7 cm/s. LEFT SUPERFICIAL FEMORAL ARTERY: Widely patent. Maximal flow velocity of 135.7 cm/s. LEFT POPLITEAL ARTERY:Widely patent. Maximal flow velocity of 93.7 cm/s. LEFT POSTERIOR TIBIAL ARTERY: Widely patent. Maximal flow velocity of 34.3 cm/s. LEFT DORSALIS PEDIS ARTERY: Not visualized. OTHER FINDINGS: None. IMPRESSION: Normal Duplex Doppler of the bilateral lower extremity arteries.
[2017-04-14] MEDS ORDERED: Insulin Detemir 100 Units/ml Inj SC SCH (22:00)
[2017-04-15] MEDS: Insulin Regular 100 units/ml SC SCH ×3 (07:03→21:58)
[2017-04-15] MEDS ORDERED: Insulin Detemir 100 Units/ml Inj SC SCH (08:26)
[2017-04-15] MEDS ORDERED: Insulin Detemir 100 Units/ml Inj SC STA (08:31)
[2017-04-15] MEDS: GlipiZIDE 10 mg SR Tab PO SCH ×2 (09:04→16:22)
[2017-04-15] MEDS: Enoxaparin 40 mg Syringe SC SCH (09:05)
[2017-04-15] MEDS ORDERED: Valproate 500 MG in Sodium Chloride 0.9% 100 ML IVPB ONE (09:44)
[2017-04-15] MEDS ORDERED: Magnesium Sulfate 2 gm/50 ml 2 GM/50 ML BAG IVPB ONE (09:44)
--- NOTE | 2017-04-15 10:05 | CP.PCM.DIS ---
<Amadou Esquivel - Last Filed: 04/15/17 17:29> Provider - Provider Date of Admission: 04/12/17 20:35 Attending physician: Adenike Ibanez DO Time Spent in preparation of Discharge (in minutes): 30 Diagnosis - Discharge Diagnosis (1) CVA (cerebral vascular accident) Status: Acute Priority: High (2) Hypertension Status: Acute (3) Diabetes mellitus with hyperglycemia Status: Acute (4) Dyslipidemia Status: Acute (5) Type 2 diabetes mellitus with pressure callus Status: Acute Hospital Course - Lab Results Lab Results: Micro Results 04/12/17 21:15 Urine,Clean Catch Urine Culture - Final > 100,000 CFU/ML. MULTIPLE SPECIES. SUGGEST REPEAT SPECIMEM. Most Recent Lab Values WBC 5.5 K/uL (4.8-10.8) 04/14/17 04:20 RBC 4.14 Mil/uL (3.80-5.20) 04/14/17 04:20 Hgb 11.8 g/dL (12.0-16.0) L 04/14/17 04:20 Hct 36.7 % (34.0-47.0) 04/14/17 04:20 MCV 88.6 fl (81.0-99.0) 04/14/17 04:20 MCH 28.6 pg (27.0-31.0) 04/14/17 04:20 MCHC 32.2 g/dL (33.0-37.0) L 04/14/17 04:20 RDW 14.8 % (11.5-14.5) H 04/14/17 04:20 Plt Count 207 K/uL (130-400) 04/14/17 04:20 MPV 10.3 fl (7.2-11.7) 04/12/17 20:54 Neut % (Auto) 69.7 % (50.0-75.0) 04/12/17 20:54 Lymph % (Auto) 22.2 % (20.0-40.0) 04/12/17 20:54 [place] % (Auto) 5.2 % (0.0-10.0) 04/12/17 20:54 Eos % (Auto) 2.3 % (0.0-4.0) 04/12/17 20:54 Baso % (Auto) 0.6 % (0.0-2.0) 04/12/17 20:54 Neut # (Auto) 4.0 K/uL (1.8-7.0) 04/12/17 20:54 Lymph # (Auto) 1.3 K/uL (1.0-4.3) 04/12/17 20:54 [place] # (Auto) 0.3 K/uL (0.0-0.8) 04/12/17 20:54 Eos # (Auto) 0.1 K/uL (0.0-0.7) 04/12/17 20:54 Baso # (Auto) 0.0 K/uL (0.0-0.2) 04/12/17 20:54 PT 9.7 Seconds (9.8-13.1) L 04/12/17 21:15 INR 0.9 (0.9-1.2) 04/12/17 21:15 APTT 26.0 Seconds (25.6-37.1) 04/12/17 21:15 pO2 56 mm/Hg (30-55) H 04/12/17 20:40 VBG pH 7.39 (7.32-7.43) 04/12/17 20:40 VBG pCO2 48 mmHg (40-60) 04/12/17 20:40 VBG HCO3 27.3 mmol/L 04/12/17 20:40 VBG Total CO2 30.6 mmol/L (22-28) H 04/12/17 20:40 VBG O2 Sat (Calc) 94.7 % (40-65) H 04/12/17 20:40 VBG Base Excess 3.3 mmol/L (0.0-2.0) H 04/12/17 20:40 VBG Potassium 4.5 mmol/L (3.6-5.2) 04/12/17 20:40 Sodium 136.0 mmol/L (132-148) 04/12/17 20:40 Chloride 98.0 mmol/L (98-107) 04/12/17 20:40 Glucose 563 mg/dL (65-105) H* 04/12/17 20:40 Lactate 2.9 mmol/L (0.7-2.1) H 04/12/17 20:40 FiO2 21.0 % 04/12/17 20:40 Crit Value Called To Dr rico 04/12/17 20:40 Crit Value Called By Rt 04/12/17 20:40 Crit Value Read Back Y 04/12/17 20:40 Blood Gas Notified Time 204904/12/17 20:40 Sodium 138 mmol/l (132-148) 04/14/17 04:20 Potassium 3.9 MMOL/L (3.6-5.0) 04/14/17 04:20 Chloride 99 mmol/L (98-107) 04/14/17 04:20 Carbon Dioxide 32 mmol/L (22-30) H 04/14/17 04:20 Anion Gap 11 (10-20) 04/14/17 04:20 BUN 10 mg/dl (7-17) 04/14/17 04:20 Creatinine 0.5 mg/dl (0.7-1.2) L 04/14/17 04:20 Est GFR ( Amer) > 60 04/14/17 04:20 Est GFR (Non-Af Amer) > 60 04/14/17 04:20 POC Glucose (mg/dL) 252 mg/dL (65-110) H 04/15/17 05:33 Random Glucose 243 mg/dL (65-105) H 04/14/17 04:20 Hemoglobin A1c 16.0 % (4.2-6.5) H 04/12/17 20:55 Calcium 9.1 mg/dL (8.4-10.2) 04/14/17 04:20 Total Bilirubin 0.4 mg/dl (0.2-1.3) 04/12/17 20:54 AST 19 U/L (14-36) 04/12/17 20:54 ALT 25 U/L (9-52) 04/12/17 20:54 Alkaline Phosphatase 99 U/L (38-126) 04/12/17 20:54 Troponin I < 0.0120 ng/mL (0.00-0.120) 04/12/17 20:54 Total Protein 7.5 G/DL (6.3-8.2) 04/12/17 20:54 Albumin 3.8 g/dL (3.5-5.0) 04/12/17 20:54 Globulin 3.7 gm/dL (2.2-3.9) 04/12/17 20:54 Albumin/Globulin Ratio 1.0 (1.0-2.1) 04/12/17 20:54 Triglycerides 169 mg/DL (0-149) H 04/12/17 20:54 Cholesterol 268 mg/dL (0-199) H 04/12/17 20:54 LDL Cholesterol Direct 166 mg/dL (0-129) H 04/12/17 20:54 HDL Cholesterol 56 MG/DL (30-70) 04/12/17 20:54 Venous Blood Potassium 4.5 mmol/L (3.6-5.2) 04/12/17 20:40 Urine Color Straw (YELLOW) 04/12/17 21:15 Urine Clarity Clear (Clear) 04/12/17 21:15 Urine pH 6.0 (5.0-8.0) 04/12/17 21:15 Ur Specific [place] 1.024 (1.003-1.030) 04/12/17 21:15 Urine Protein 30 mg/dL (NEGATIVE) 04/12/17 21:15 Urine Glucose (UA) >=500 mg/dL (Normal) 04/12/17 21:15 Urine Ketones Negative mg/dL (NEGATIVE) 04/12/17 21:15 Urine Blood Moderate (NEGATIVE) 04/12/17 21:15 Urine Nitrate Negative (NEGATIVE) 04/12/17 21:15 Urine Bilirubin Negative (NEGATIVE) 04/12/17 21:15 Urine Urobilinogen 0.2-1.0 mg/dL (0.2-1.0) 04/12/17 21:15 Ur Leukocyte Esterase Neg Jr/uL (Negative) 04/12/17 21:15 Urine RBC (Auto) 20 /hpf (0-3) H 04/12/17 21:15 Urine Microscopic WBC 2 /hpf (0-5) 04/12/17 21:15 Ur Squamous Epith Cells 1 /hpf (0-5) 04/12/17 21:15 Urine Bacteria Rare (<OCC) 04/12/17 21:15 Blood Type A POSITIVE 04/12/17 20:35 Antibody Screen Negative 04/12/17 20:35 BBK History Checked Patient has bt 04/12/17 20:35 - Hospital Course Hospital Course: 72 y.o with PMH of DM, HTN, HLD, CAD was admitted for AMS. During the hospital stay, it was determined that she had acute CVA with expressive aphasia. During the hospital course she was placed on ASA, Plavix, Statin. Patient was found to be hyperglycemia. Diabetic regimen was modified with Levemir 15 units SC HS BRIAN , Januvia 50mh PO BID BRIAN, Glipizide 10mg PO BRKDIN BRIAN currently. Continue to work with PMD to modify to controll DM as an outpatient. Decision to discontinue Metformin as pt received IV contrast (on 04/14/17). Patient is currently receiving low dosage of Enalapril 2.5 PO BID for Hypertension. Will gradually increase dosage. - Date & Time of H&P Date of H&P: 04/15/17 Time of H&P: 09:00 Discharge Exam - Head Exam Head Exam: ATRAUMATIC, NORMAL INSPECTION, NORMOCEPHALIC - Eye Exam Eye Exam: EOMI, Normal appearance, PERRL Pupil Exam: NORMAL ACCOMODATION, PERRL - ENT Exam ENT Exam: Mucous Membranes Moist, Normal Exam - Neck Exam Neck exam: Full Rom - Respiratory Exam Respiratory Exam: NORMAL BREATHING PATTERN. absent: Rales, Rhonchi, Wheezes, Respiratory Distress, Stridor - Cardiovascular Exam Cardiovascular Exam: REGULAR RHYTHM, RRR, +S1, +S2. absent: JVD - GI/Abdominal Exam GI & Abdominal Exam: Normal Bowel Sounds. absent: Mass, Rebound, Rigid, Tenderness - Rectal Exam Rectal Exam: Deferred - Neurological Exam Neurological exam: Alert - Psychiatric Exam Psychiatric exam: Normal Affect, Normal Mood - Skin Skin Exam: Dry, Intact, Normal Color, Warm - Additional Findings Additional findings: left facial droop power intact sensory intact some speech difficulty able to follow commands and understands left sided weakness Discharge Plan - Discharge Medications Prescriptions: Clopidogrel [Plavix] 75 mg PO DAILY #30 tab Insulin Detemir [Levemir] 25 units SC HS #5 vial - Follow Up Plan Condition: STABLE Disposition: TRANSF TO SNF Instructions: Diabetic Hyperglycemia (DC), Stroke (DC) Referrals: Layton Hassan DPM [Staff Provider] - Leroy Alberts MD [Medical Doctor] - Pito Babb MD [Staff Provider] - <Katherine Frances - Last Filed: 04/15/17 18:48> Provider - Provider Date of Admission: 04/12/17 20:35 Attending physician: Adenike Ibanez DO Hospital Course - Lab Results Lab Results: Micro Results 04/12/17 21:15 Urine,Clean Catch Urine Culture - Final > 100,000 CFU/ML. MULTIPLE SPECIES. SUGGEST REPEAT SPECIMEM. Most Recent Lab Values WBC 5.5 K/uL (4.8-10.8) 04/14/17 04:20 RBC 4.14 Mil/uL (3.80-5.20) 04/14/17 04:20 Hgb 11.8 g/dL (12.0-16.0) L 04/14/17 04:20 Hct 36.7 % (34.0-47.0) 04/14/17 04:20 MCV 88.6 fl (81.0-99.0) 04/14/17 04:20 MCH 28.6 pg (27.0-31.0) 04/14/17 04:20 MCHC 32.2 g/dL (33.0-37.0) L 04/14/17 04:20 RDW 14.8 % (11.5-14.5) H 04/14/17 04:20 Plt Count 207 K/uL (130-400) 04/14/17 04:20 MPV 10.3 fl (7.2-11.7) 04/12/17 20:54 Neut % (Auto) 69.7 % (50.0-75.0) 04/12/17 20:54 Lymph % (Auto) 22.2 % (20.0-40.0) 04/12/17 20:54 [place] % (Auto) 5.2 % (0.0-10.0) 04/12/17 20:54 Eos % (Auto) 2.3 % (0.0-4.0) 04/12/17 20:54 Baso % (Auto) 0.6 % (0.0-2.0) 04/12/17 20:54 Neut # (Auto) 4.0 K/uL (1.8-7.0) 04/12/17 20:54 Lymph # (Auto) 1.3 K/uL (1.0-4.3) 04/12/17 20:54 [place] # (Auto) 0.3 K/uL (0.0-0.8) 04/12/17 20:54 Eos # (Auto) 0.1 K/uL (0.0-0.7) 04/12/17 20:54 Baso # (Auto) 0.0 K/uL (0.0-0.2) 04/12/17 20:54 PT 9.7 Seconds (9.8-13.1) L 04/12/17 21:15 INR 0.9 (0.9-1.2) 04/12/17 21:15 APTT 26.0 Seconds (25.6-37.1) 04/12/17 21:15 pO2 56 mm/Hg (30-55) H 04/12/17 20:40 VBG pH 7.39 (7.32-7.43) 04/12/17 20:40 VBG pCO2 48 mmHg (40-60) 04/12/17 20:40 VBG HCO3 27.3 mmol/L 04/12/17 20:40 VBG Total CO2 30.6 mmol/L (22-28) H 04/12/17 20:40 VBG O2 Sat (Calc) 94.7 % (40-65) H 04/12/17 20:40 VBG Base Excess 3.3 mmol/L (0.0-2.0) H 04/12/17 20:40 VBG Potassium 4.5 mmol/L (3.6-5.2) 04/12/17 20:40 Sodium 136.0 mmol/L (132-148) 04/12/17 20:40 Chloride 98.0 mmol/L (98-107) 04/12/17 20:40 Glucose 563 mg/dL (65-105) H* 04/12/17 20:40 Lactate 2.9 mmol/L (0.7-2.1) H 04/12/17 20:40 FiO2 21.0 % 04/12/17 20:40 Crit Value Called To Dr rico 04/12/17 20:40 Crit Value Called By Rt 04/12/17 20:40 Crit Value Read Back Y 04/12/17 20:40 Blood Gas Notified Time 204904/12/17 20:40 Sodium 138 mmol/l (132-148) 04/14/17 04:20 Potassium 3.9 MMOL/L (3.6-5.0) 04/14/17 04:20 Chloride 99 mmol/L (98-107) 04/14/17 04:20 Carbon Dioxide 32 mmol/L (22-30) H 04/14/17 04:20 Anion Gap 11 (10-20) 04/14/17 04:20 BUN 10 mg/dl (7-17) 04/14/17 04:20 Creatinine 0.5 mg/dl (0.7-1.2) L 04/14/17 04:20 Est GFR ( Amer) > 60 04/14/17 04:20 Est GFR (Non-Af Amer) > 60 04/14/17 04:20 POC Glucose (mg/dL) 352 mg/dL (65-110) H 04/15/17 10:51 Random Glucose 243 mg/dL (65-105) H 04/14/17 04:20 Hemoglobin A1c 16.0 % (4.2-6.5) H 04/12/17 20:55 Calcium 9.1 mg/dL (8.4-10.2) 04/14/17 04:20 Total Bilirubin 0.4 mg/dl (0.2-1.3) 04/12/17 20:54 AST 19 U/L (14-36) 04/12/17 20:54 ALT 25 U/L (9-52) 04/12/17 20:54 Alkaline Phosphatase 99 U/L (38-126) 04/12/17 20:54 Troponin I < 0.0120 ng/mL (0.00-0.120) 04/12/17 20:54 Total Protein 7.5 G/DL (6.3-8.2) 04/12/17 20:54 Albumin 3.8 g/dL (3.5-5.0) 04/12/17 20:54 Globulin 3.7 gm/dL (2.2-3.9) 04/12/17 20:54 Albumin/Globulin Ratio 1.0 (1.0-2.1) 04/12/17 20:54 Triglycerides 169 mg/DL (0-149) H 04/12/17 20:54 Cholesterol 268 mg/dL (0-199) H 04/12/17 20:54 LDL Cholesterol Direct 166 mg/dL (0-129) H 04/12/17 20:54 HDL Cholesterol 56 MG/DL (30-70) 04/12/17 20:54 Venous Blood Potassium 4.5 mmol/L (3.6-5.2) 04/12/17 20:40 Urine Color Straw (YELLOW) 04/12/17 21:15 Urine Clarity Clear (Clear) 04/12/17 21:15 Urine pH 6.0 (5.0-8.0) 04/12/17 21:15 Ur Specific [place] 1.024 (1.003-1.030) 04/12/17 21:15 Urine Protein 30 mg/dL (NEGATIVE) 04/12/17 21:15 Urine Glucose (UA) >=500 mg/dL (Normal) 04/12/17 21:15 Urine Ketones Negative mg/dL (NEGATIVE) 04/12/17 21:15 Urine Blood Moderate (NEGATIVE) 04/12/17 21:15 Urine Nitrate Negative (NEGATIVE) 04/12/17 21:15 Urine Bilirubin Negative (NEGATIVE) 04/12/17 21:15 Urine Urobilinogen 0.2-1.0 mg/dL (0.2-1.0) 04/12/17 21:15 Ur Leukocyte Esterase Neg Jr/uL (Negative) 04/12/17 21:15 Urine RBC (Auto) 20 /hpf (0-3) H 04/12/17 21:15 Urine Microscopic WBC 2 /hpf (0-5) 04/12/17 21:15 Ur Squamous Epith Cells 1 /hpf (0-5) 04/12/17 21:15 Urine Bacteria Rare (<OCC) 04/12/17 21:15 Blood Type A POSITIVE 04/12/17 20:35 Antibody Screen Negative 04/12/17 20:35 BBK History Checked Patient has bt 04/12/17 20:35 Attending/Attestation - Attestation I have personally seen and examined this patient.: Yes I have fully participated in the care of the patient.: Yes I have reviewed all pertinent clinical information, including history, physical exam and plan: Yes Notes (Text): Plan was to discharge pt to [facility] however pt suddenly complained of headache , she was noted to have worsening of her left sided weakness. Discharge held. Pt was given Magnesium and Depakote. Rpt CT of head did not show any change , no hemorrhage. Discussed with Neurology - rec rpt MRI and MRA of the Brain Carotid Doppler IMPRESSION: Per NASCET criteria, less than 50 percent stenosis of the bilateral internal carotid arteries Unremarkable CT Angiography of the Brain Echocardiogram- normal EF, mild and moderate pulmonary hypertension. Brain MRI IMPRESSION: Findings compatible with sub cm high white matter infarcts as above. Right much more conspicuous and definitive than left. No hemorrhage or mass effect seen. Head CT IMPRESSION: 1. Nonspecific white matter changes. Acute infarction may be CT occult within first 24 hours. If a focal deficit persists, consider followup CT or MRI for further evaluation. 2. Incidental/non-acute findings are described above. PT/OT/ speech evaluation Patient passed swallow eval 1. Acute stroke worsening of neuro deficit today 2/2 Continue telemetry monitoring Neurochecks Q4 hours Continue ASA, Statin plavix 2.Uncontrolled DM Continue accuchecks, insulin coverage c/w Diabetic diet resume home meds increase Levemir to 20 units q hs Hgb A1c 16 3. Hypertension d/w Neurology may gradually decrease BP low dosage of Enalapril 2.5 PO BID ( pt was on 10mg bid at home) 4. Dyslipidemia c/w Atorvastatin 40 mg PO 5. Diabetic foot calluses podiatry consulted 6.DVT ppx c/w Lovenox
--- NOTE | 2017-04-15 10:58 | CP.PCM.PN ---
Subjective - Date & Time of Evaluation Date of Evaluation: 04/15/17 Time of Evaluation: 10:54 - Subjective Subjective: Ms Black was seen and examined at the bedside. She is alert with expressive aphasia. She speaks mainly [place], utilized language line to assist. She claims of experiencing headache in the frontal area not radiating to any part of the head pain scale 8/10. She denies any blurred vision, nausea, or vomiting. She is able to follow simple commands, but attention span is short. She has left side weakness, able to ambulate with assistance from her bed to a bedside chair. There was no untoward events overnight. Objective - Vital Signs/Intake and Output Vital Signs (last 24 hours): Temp Pulse Resp BP Pulse Ox 97.9 F 104 H 18 143/83 97 04/15/17 08:00 04/15/17 08:00 04/15/17 08:00 04/15/17 08:00 04/15/17 08:00 - Medications Medications: Current Medications Aspirin (Aspirin Chewable) 81 mg PO DAILY [facility] Last Admin: 04/15/17 09:04 Dose: 81 mg Atorvastatin Calcium (Lipitor) 40 mg PO HS [facility] Last Admin: 04/14/17 22:19 Dose: 40 mg Clopidogrel Bisulfate (Plavix) 75 mg PO DAILY [facility] Last Admin: 04/15/17 09:04 Dose: 75 mg Enalapril Maleate (Vasotec) 2.5 mg PO BID [facility] Last Admin: 04/15/17 09:04 Dose: 2.5 mg Enoxaparin Sodium (Lovenox) 40 mg SC DAILY [facility] PRN Reason: Protocol Last Admin: 04/15/17 09:05 Dose: 40 mg Glipizide (Glucotrol Xl) 10 mg PO BRKDIN [facility] Last Admin: 04/15/17 09:04 Dose: 10 mg Insulin Detemir (Levemir) 15 units SC [facility] Insulin Human Regular (Humulin R) 0 units SC [facility] PRN Reason: Protocol Last Admin: 04/15/17 07:03 Dose: 3 units Repaglinide (Prandin) 1 mg PO TID [facility] Last Admin: 04/15/17 09:04 Dose: 1 mg Sitagliptin Phosphate (Januvia) 50 mg PO BID [facility] Last Admin: 04/15/17 09:04 Dose: 50 mg - Labs Labs: 04/14/17 04:20 04/14/17 04:20 PT 9.7 Seconds (9.8-13.1) L 04/12/17 21:15 INR 0.9 (0.9-1.2) 04/12/17 21:15 APTT 26.0 Seconds (25.6-37.1) 04/12/17 21:15 - Constitutional Appears: No Acute Distress - Head Exam Head Exam: NORMAL INSPECTION - Neurological Exam Neurological Exam: Alert, Awake Neuro motor strength exam: Left Upper Extremity: 4, Right Upper Extremity: 5, Left Lower Extremity: 4, Right Lower Extremity: 5 Additional comments: Neurological unchanged from previous examination. Assessment and Plan (1) CVA (cerebral vascular accident) Assessment & Plan: Case discussed with Dr. Alberts, continue all current medical, physical, occupational, and speech therapies. Recommend to control blood pressure and blood sugar. Status: Acute (2) Headache Assessment & Plan: Case discussed with Dr. Alberts, recommend Magnesium 2 gm IVPB for one dose and Depakote 500 mg PO IVPB for one dose. If headache worsen, repeat CT of the head without contrast. Status: Acute
--- NOTE | 2017-04-15 16:19 | CT ---
PROCEDURE: CT scan brain dated 04/15/2017 HISTORY: Left-sided weakness COMPARISON: Comparison made with prior MRI of the brain dated 04/13/2017 show head of TECHNIQUE: Contiguous helical/transaxial computed tomography images were obtained through the head/brain without intravenous contrast. Radiation dose: Total exam DLP = 1096.97 mGy-cm. This CT exam was performed using one or more of the following dose reduction techniques: Automated exposure control, adjustment of the mA and/or kV according to patient size, and/or use of iterative reconstruction technique. . FINDINGS: HEMORRHAGE: No acute parenchymal, subarachnoid or extra-axial hemorrhage. BRAIN: Previously noted small acute infarct in the right mid-posterior mcleod radiata and centrum semiovale is again noted. Small rounded focus of uptake restricted diffusion in the left superior parasagittal superior periventricular white matter may have represented some shine through artifact related to a chronic infarct in this location on prior MRI. Additionally, there are multiple more discrete chronic appearing infarct changes scattered about the deep and subcortical white matter, both basal nuclei and brainstem are again noted. Minimal chronic periventricular white matter ischemic changes also noted. Note that all of these changes are less well seen as compared to high-resolution MRI. Moderate central volume loss evidenced by disproportionate enlargement of the ventricles as compared the sulci. . VENTRICLES: No obstructive hydrocephalus. CALVARIUM: Calvarium is unremarkable. PARANASAL SINUSES: Unremarkable as visualized. No significant inflammatory changes. MASTOID AIR CELLS: Unremarkable as visualized. No inflammatory changes. OTHER FINDINGS: Changes of bilateral cataract surgery again noted IMPRESSION: No acute intracranial hemorrhage. Small acute infarct right posterior superior mcleod radiata/centrum semiovale again noted. There also multiple more discrete chronic appearing white matter basal nuclei and brainstem ischemic changes of which are less visible on this exam as compared to high-resolution MRI Moderate central volume loss.
--- NOTE | 2017-04-15 16:25 | CP.PCM.PN ---
Subjective - Date & Time of Evaluation Date of Evaluation: 04/15/17 Time of Evaluation: 16:24 - Subjective Subjective: 72 y.o female with PMH DM, HTN, HLD, and CAD consulted for bilateral hallux calluses with possible underlying ulceration. Patient is AAO x 3, seen resting in bed with her present at time of visit. Patient denies pain to her LE. Denies numbness or tingling. Patient denies calf tenderness. Denies n/v/sob/ cp/chills/f/ or d. Objective - Vital Signs/Intake and Output Vital Signs (last 24 hours): Temp Pulse Resp BP Pulse Ox 98.2 F 93 H 20 173/88 H 94 L 04/15/17 15:47 04/15/17 15:47 04/15/17 15:47 04/15/17 15:47 04/15/17 15:47 - Medications Medications: Current Medications Aspirin (Aspirin Chewable) 81 mg PO DAILY [facility] Last Admin: 04/15/17 09:04 Dose: 81 mg Atorvastatin Calcium (Lipitor) 40 mg PO HS [facility] Last Admin: 04/14/17 22:19 Dose: 40 mg Clopidogrel Bisulfate (Plavix) 75 mg PO DAILY [facility] Last Admin: 04/15/17 09:04 Dose: 75 mg Enalapril Maleate (Vasotec) 2.5 mg PO BID [facility] Last Admin: 04/15/17 16:22 Dose: 2.5 mg Enoxaparin Sodium (Lovenox) 40 mg SC DAILY [facility] PRN Reason: Protocol Last Admin: 04/15/17 09:05 Dose: 40 mg Glipizide (Glucotrol Xl) 10 mg PO BRKDIN [facility] Last Admin: 04/15/17 16:22 Dose: 10 mg Insulin Detemir (Levemir) 15 units SC HS [facility] Insulin Human Regular (Humulin R) 0 units SC [facility] PRN Reason: Protocol Last Admin: 04/15/17 13:32 Dose: Not Given Repaglinide (Prandin) 1 mg PO TID [facility] Last Admin: 04/15/17 16:21 Dose: 1 mg Sitagliptin Phosphate (Januvia) 50 mg PO BID [facility] Last Admin: 04/15/17 16:22 Dose: 50 mg - Labs Labs: 04/14/17 04:20 04/14/17 04:20 PT 9.7 Seconds (9.8-13.1) L 04/12/17 21:15 INR 0.9 (0.9-1.2) 04/12/17 21:15 APTT 26.0 Seconds (25.6-37.1) 04/12/17 21:15 - Constitutional Appears: Well, Non-toxic - Extremities Exam Additional comments: LE focused exam: Vasc: DP and PT weakly palpable, CFT delayed x 10 digits, temperature WNL, no edema noted b/l Ortho: no pain with palpation to the plantar callosities Neuro: Epicritic and protective sensation grossly intact b/l Derm: severe hyperkeratotic lesions noted to the plantar halluces bilaterally. Upon debridment of calluses, superficial ulceration noted to left distal hallux no fluctuatance, no crepitus, no erythema, no streaking, no purulence, no probe to bone, no drainage noted. Two full thickness ulcerations noted to medial right hallux. No fluctuatance, no crepitus, no erythema, no streaking, no purulence, no probe to bone, no drainage noted - Neurological Exam Neurological Exam: Alert, Awake, Oriented x3 - Psychiatric Exam Psychiatric exam: Normal Affect, Normal Mood Assessment and Plan - Assessment and Plan (Free Text) Assessment: 72 y.o female with PMH DM, HTN, HLD, and CAD consulted for bilateral hallux ulcerations, uninfected Plan: Patient seen and evaluated at bedside Plan discussed with attending Dr. Patterson Afebrile, absent leukocytosis Calluses debrided down to level of epidermis thereby exposing underlying ulcerations No plan for surgical intervention at this time Wounds dressed with DSD Bacitracin ordered to be applied daily Podiatry will continue to follow while patient in house Upon discharge, patient will follow up with Dr. Patterson in wound care center
[2017-04-15] MEDS: Insulin Detemir 100 Units/ml Inj SC SCH (22:01)
[2017-04-16] MEDS: Insulin Regular 100 units/ml SC SCH ×4 (06:37→22:00)
[2017-04-16 07:48] LABS: HEMOGLOBIN 13.3 g/dL (12.0-16.0); MEAN CELL VOLUME 88.5 fl (81.0-99.0); MEAN CORPUSCULAR HGB CONC 32.8 g/dL (33.0-37.0); RBC 4.58 Mil/uL (3.80-5.20); RED CELL DISTRIBUTION WIDTH 14.7 % (11.5-14.5); WHITE BLOOD COUNT 7.5 K/uL (4.8-10.8)
[2017-04-16 08:09] LABS: BLOOD UREA NITROGEN 14 mg/dl (7-17); CALCIUM 8.8 mg/dL (8.4-10.2); GFR AFRICAN-AMERICAN > 60; GFR NON-AFRICAN AMERICAN > 60
--- NOTE | 2017-04-16 11:04 | RAD ---
PROCEDURE: CHEST RADIOGRAPH, 1 VIEW HISTORY: fever COMPARISON: Chest radiograph dated 04/12/2017. FINDINGS: LUNGS: Clear. PLEURA: No pneumothorax or pleural fluid seen. CARDIOVASCULAR: Atherosclerotic aortic calcifications. Cardiomediastinal silhouette within normal limits. OSSEOUS STRUCTURES: Unchanged. VISUALIZED UPPER ABDOMEN: Normal. OTHER FINDINGS: None. IMPRESSION: No active disease.
--- NOTE | 2017-04-16 15:07 | CP.PCM.PN ---
Subjective - Date & Time of Evaluation Date of Evaluation: 04/16/17 Time of Evaluation: 16:12 - Subjective Subjective: Podiatry Progress Note- Dr. Patterson 72 y.o female with PMH DM, HTN, HLD, and CAD consulted for bilateral hallux ulceration. Patient is sleeping during the time of visitation with 1:1. She is seen resting in bed and her is seen visiting at bedside. Objective - Vital Signs/Intake and Output Vital Signs (last 24 hours): Temp Pulse Resp BP Pulse Ox 100.0 F H 111 H 18 155/77 H 93 L 04/16/17 08:00 04/16/17 09:00 04/16/17 08:00 04/16/17 08:00 04/16/17 08:00 - Medications Medications: Current Medications Acetaminophen (Tylenol 325mg Tab) 650 mg PO Q6 PRN PRN Reason: fever > 100.4 Last Admin: 04/15/17 23:58 Dose: 650 mg Aspirin (Aspirin Chewable) 81 mg PO DAILY [facility] Last Admin: 04/15/17 09:04 Dose: 81 mg Atorvastatin Calcium (Lipitor) 40 mg PO HS [facility] Last Admin: 04/15/17 22:01 Dose: 40 mg Bacitracin (Bacitracin Oint) 1 applic TOP BID [facility] Clopidogrel Bisulfate (Plavix) 75 mg PO DAILY [facility] Last Admin: 04/15/17 09:04 Dose: 75 mg Enalapril Maleate (Vasotec) 2.5 mg PO BID [facility] Last Admin: 04/15/17 16:22 Dose: 2.5 mg Glipizide (Glucotrol Xl) 10 mg PO BRKDIN [facility] Last Admin: 04/15/17 16:22 Dose: 10 mg Insulin Detemir (Levemir) 20 units SC HS [facility] Last Admin: 04/15/17 22:01 Dose: 20 u Insulin Human Regular (Humulin R) 0 units SC [facility] PRN Reason: Protocol Last Admin: 04/16/17 06:37 Dose: 1 units Repaglinide (Prandin) 1 mg PO TID [facility] Last Admin: 04/15/17 16:21 Dose: 1 mg Sitagliptin Phosphate (Januvia) 50 mg PO BID [facility] Last Admin: 04/15/17 16:22 Dose: 50 mg - Labs Labs: 04/16/17 06:08 04/16/17 06:08 PT 9.7 Seconds (9.8-13.1) L 04/12/17 21:15 INR 0.9 (0.9-1.2) 04/12/17 21:15 APTT 26.0 Seconds (25.6-37.1) 04/12/17 21:15 - Constitutional Appears: Well, Non-toxic, No Acute Distress - Extremities Exam Additional comments: LE focused exam: Vasc: DP and PT weakly palpable, CFT delayed x 10 digits, temperature WNL, no edema noted b/l Ortho: no pain with palpation to the plantar callosities Neuro: Epicritic and protective sensation grossly intact b/l Derm: severe hyperkeratotic lesions noted to the plantar halluces bilaterally. Superficial ulceration noted to left and right distal hallux no fluctuatance, no crepitus, no erythema, no streaking, no purulence, no probe to bone, no drainage noted. Assessment and Plan (1) CVA (cerebral vascular accident) Status: Acute (2) Hypertension Status: Acute (3) Diabetes mellitus with hyperglycemia Status: Acute (4) Dyslipidemia Status: Acute (5) Type 2 diabetes mellitus with pressure callus Status: Acute - Assessment and Plan (Free Text) Assessment: 72 y.o female with PMH DM, HTN, HLD, and CAD with bilateral hallux ulcerations stable with no infection Plan: Patient seen and evaluated at bedside Plan discussed with attending Dr. Patterson Afebrile, absent leukocytosis No plan for surgical intervention at this time Wounds dressed with Bacitracin and DSD Podiatry will continue to follow while patient in house Upon discharge, patient will follow up with Dr. Patterson in wound care center within 1 week
[2017-04-16] MEDS: GlipiZIDE 10 mg SR Tab PO SCH ×2 (15:31→17:13)
[2017-04-16] MEDS: Bacitracin OINT 15GM TOP SCH ×2 (15:31→17:15)
[2017-04-16] MEDS: Enoxaparin 40 mg Syringe SC SCH (15:32)
--- NOTE | 2017-04-16 19:49 | CP.PCM.PN ---
Subjective - Date & Time of Evaluation Date of Evaluation: 04/16/17 Time of Evaluation: 10:00 - Subjective Subjective: Patient was seen and examined bedside. Elderly female of stated age appears delirious , agitated , combative, not following commands , pulling out her tele monitor , NC and her hospital gown. Yesterday was noted to have some left side weakness and BAILON Tachycardic todya HR 11 , febrile Tmax 102 , BP 155/77, saturating as low as 90 5 in RA MRI repeated today showed acute/subacute stroke of right mcleod radiata and centrum ovale MRA - unable to perform due to patient not cooperating with the test CXR - no infiltrtae UA - clear influenza - negative WBC 7.5 Objective - Vital Signs/Intake and Output Vital Signs (last 24 hours): Temp Pulse Resp BP Pulse Ox 99.3 F 103 H 20 116/74 90 L 04/16/17 19:38 04/16/17 19:38 04/16/17 19:38 04/16/17 19:38 04/16/17 19:38 - Medications Medications: Current Medications Acetaminophen (Tylenol 325mg Tab) 650 mg PO Q6 PRN PRN Reason: fever > 100.4 Last Admin: 04/15/17 23:58 Dose: 650 mg Aspirin (Aspirin Chewable) 81 mg PO DAILY [facility] Last Admin: 04/16/17 15:31 Dose: Not Given Atorvastatin Calcium (Lipitor) 40 mg PO HS [facility] Last Admin: 04/15/17 22:01 Dose: 40 mg Bacitracin (Bacitracin Oint) 1 applic TOP BID [facility] Last Admin: 04/16/17 17:15 Dose: Not Given Clopidogrel Bisulfate (Plavix) 75 mg PO DAILY [facility] Last Admin: 04/16/17 15:33 Dose: Not Given Enalapril Maleate (Vasotec) 2.5 mg PO BID [facility] Last Admin: 04/16/17 17:14 Dose: Not Given Glipizide (Glucotrol Xl) 10 mg PO BRKDIN [facility] Last Admin: 04/16/17 17:13 Dose: Not Given Insulin Detemir (Levemir) 20 units SC [facility] Last Admin: 04/15/17 22:01 Dose: 20 u Insulin Human Regular (Humulin R) 0 units SC [facility] PRN Reason: Protocol Last Admin: 04/16/17 17:15 Dose: Not Given Repaglinide (Prandin) 1 mg PO TID [facility] Last Admin: 04/16/17 17:14 Dose: Not Given Sitagliptin Phosphate (Januvia) 50 mg PO BID [facility] Last Admin: 04/16/17 17:14 Dose: Not Given - Labs Labs: 04/16/17 06:08 04/16/17 06:08 PT 9.7 Seconds (9.8-13.1) L 04/12/17 21:15 INR 0.9 (0.9-1.2) 04/12/17 21:15 APTT 26.0 Seconds (25.6-37.1) 04/12/17 21:15 - Constitutional Appears: Agitated, Confused - Head Exam Head Exam: ATRAUMATIC, NORMOCEPHALIC - Eye Exam Eye Exam: EOMI, PERRL - ENT Exam ENT Exam: Mucous Membranes Dry - Neck Exam Neck Exam: Normal Inspection - Respiratory Exam Respiratory Exam: Clear to Ausculation Bilateral, NORMAL BREATHING PATTERN. absent: Rhonchi, Wheezes, Respiratory Distress - Cardiovascular Exam Cardiovascular Exam: REGULAR RHYTHM, +S1, +S2. absent: JVD - GI/Abdominal Exam GI & Abdominal Exam: Soft, Normal Bowel Sounds. absent: Distended, Guarding, Tenderness, Rebound - Rectal Exam Rectal Exam: Deferred - Extremities Exam Extremities Exam: absent: Pedal Edema Additional comments: right toe dry callus - Neurological Exam Additional comments: confused, agitated ,moving all her extremities not following any commands - Skin Skin Exam: Dry, Normal Color, Warm Assessment and Plan - Assessment and Plan (Free Text) Assessment: 72 y/o F PMH DM, HTN, HLD brought to the ED with acutely worsening altered mental status though it has been progressively worsening over the past few months; she has been speaking less since yesterday.Patient's was recently hospitalized and was unable to take care of his , and she has not been eating well, or taking her medications. CT head was neg for acute CVA or bleed. Patient glucose elevated 563, HD stable. MRI head showed acute stroke in right frontal lobe white matter Patient presented with left facial droop and and some expressive aphasia Neuro consulted and patient admitted to telemetry.She was started on ASA, Statin , plavix,lovenox , Insulin anddIVF for glycemic control.Her BP initially was kept elevated to allow permissive hypertension While in telemetry patient developed worsening BAILON and some left arm weakness and today she became more confused , agitated , not following any commands Ativan was given to perform repeat MRI that showed acute/ subcute stroke in right mcleod radiata and centrum ovale will transfer patient patient to ICU She also continuous to spike fever with Tmax 102 with no obvious source of infection WBC 7 K 1. AMS Could be combination of worsening of stroke, delirium in an elderly patient with possible dementia (as per patient is on dementia medication ),sun downing ?, medication side effect ? UA - clear , Blood Cx - sent , CXR showed no infiltrate Repeat MRI showed right mcleod radiata and semiovale stroke ( new findings) Will transfer patient to ICU for close monitoring neuro informed Depakote 500 mg and Mg given yesterday for worsening BAILON . Ativan given today for sedation for repeat MRI in Am Will repeat CT head without contrast in 12 hours Continue current management Keep NPO Swallow eval 2. Fever unclear etiology possible central ? CXR - no infiltrate UA- clear , WBC 7 K, influenza negative F/u blood cx Echo - no vegetations Tylenol PRN for Now 3. Acute stroke worsening mental status transfer to ICU MRI showed new findings with right mcleod radiata nad scentrum semiovale stroke Keep NPO Continue neuro checks Repeta CT head without contrast in 12 hours Neuro following and Dr. Alberts informed of new changes Continue ASA, statin, plavix, glycemic control Tylenol PRN for fever 4 .Uncontrolled DM Continue accuchecks, insulin coverage keep npo for now Levemir to 20 units q hs Hgb A1c 16 5. Hypertension on low dose Enalapril Will hold for now( pt was on 10mg bid at home) 6. Dyslipidemia c/w Atorvastatin 40 mg PO 7. Diabetic foot calluses podiatry consulted 6.DVT ppx c/w Lovenox
[2017-04-16] MEDS: Insulin Detemir 100 Units/ml Inj SC SCH (23:29)
[2017-04-17 02:10] LABS: SQUAMOUS EPITHIAL < 1 /hpf (0-5); URINE BACTERIA MANY (<OCC); URINE BILIRUBIN NEGATIVE (NEGATIVE); URINE BLOOD NEGATIVE (NEGATIVE); URINE CLARITY CLOUDY (Clear); URINE COLOR AMBER (YELLOW); URINE GLUCOSE (UA) >=500 mg/dL (Normal); URINE HYALINE CAST 0-2 /hpf (0-2); URINE LEUKOCYTE ESTERASE NEG Leu/uL (Negative); URINE NITRATE NEGATIVE (NEGATIVE); URINE PROTEIN 100 mg/dL (NEGATIVE); URINE UROBILINOGEN 0.2-1.0 mg/dL (0.2-1.0)
--- NOTE | 2017-04-17 04:19 | CP.CCUPN ---
CCU Subjective - Physician Review Subjective (Free Text): Attending Adenike Ibanez MD Reason for transfer to ICU: Close monitoring and Frequent Neuro checks Chief complaint: Worsening Change in mental status/ Left upper extremity weakness The patient was seen and examined in the ICU HPI: The hx was obtained from the medical hx. She is a 72 years old female with hx of DM II, HTN and HLD admitted on 04/12/17 with worsening confusion, Left facial droop and expressive aphasia, and diagnosed with CVA. In the Telemetry Unit she developed worsening frontal headache with weakness to the left upper extremity on 04/16/17 , becoming more confused, agitated and not following commands. She was given Ativan prior to the MRI and much later was found to be Very somnolent. Because of tis she was transferred to the ICU for Close observation and neuro checks. Head CT 04/12/17: Negative for hemorrhagic and ischemic stroke MRI brain 04/13/17: Bilateral white matter Infarct Carotid US 04/13/17: < 50% stenosis bilateral Head & Neck CTA 04/14/17: Unremarkable CTA of Brain Head CT 04/15/17: Small Acute infarct at right posterior Superior Vo Radiata/ Centrum Semi ovale MRI Brain 04/15/17: Acute /Subacute right vo Radiata and Centrum Semi Ovale infarcts PMH: DM, HTN, HLD PSH: No Surgical Hx FH: DENIES SH: denies ETOH, IVDU, Tobacco Meds: unable to complete at this time NKDA Exam: Patient now awake and thrashing in bed, in no respiratory distress Resp: Clear breath sounds, no rales, wheezes nor Rhonchi CVS: S1 S2 RRR Abdomen: Obese, soft , apparently non tender EXT:No edema Neuro: Awake, Confused, Listless moving all extremities restlessly, Motor strength of the upper left extremity 4/5, Not following commands A&P: 72 years old female with hx of DM II, HTN and HLD admitted on 04/12/17 with worsening confusion, Left facial droop and expressive aphasia, and diagnosed with CVA. #. Acute stroke worsening mental status probably secondary to combination of worsening Dementia with the Acute stroke MRI showed new findings with right vo radiata nad scentrum semiovale stroke Keep NPO Continue neuro checks Repeta CT head without contrast in 12 hours Neuro following and Dr. Alberts informed of new changes Continue ASA, statin, plavix, glycemic control Tylenol PRN for fever #. Fever unclear etiology possible central ? CXR - no infiltrate UA- clear , WBC 7 K, influenza negative F/u blood cx Echo - no vegetations Tylenol PRN for Now # .Uncontrolled DM Continue accuchecks, insulin coverage keep npo for now Levemir to 20 units q hs Hgb A1c 16 #.DVT ppx c/w Lovenox CCU Objective - Vital Signs / Intake & Output Vital Signs (Last 4 hours): Vital Signs Temp Pulse Resp BP Pulse Ox 04/17/17 04:00 100 F H 109 H 18 135/78 98 04/17/17 02:00 119 H 20 158/73 H 99 - Medications Active Medications: Active Medications Generic Name Dose Route Start Last Admin Trade Name Freq PRN Reason Stop Dose Admin Acetaminophen 650 mg 04/15/17 23:34 04/15/17 23:58 Tylenol 325mg Tab PO 650 mg Q6 PRN Administration fever > 100.4 Aspirin 81 mg 04/13/17 09:00 04/16/17 15:31 Aspirin Chewable PO Not Given DAILY [facility] Atorvastatin Calcium 40 mg 04/13/17 22:00 04/16/17 22:00 Lipitor PO Not Given HS [facility] Bacitracin 1 applic 04/16/17 09:00 04/16/17 17:15 Bacitracin Oint TOP Not Given BID [facility] Clopidogrel Bisulfate 75 mg 04/14/17 09:00 04/16/17 15:33 Plavix PO Not Given DAILY [facility] Glipizide 10 mg 04/14/17 08:00 04/16/17 17:13 Glucotrol Xl PO Not Given BRKDIN [facility] Insulin Detemir 20 units 04/15/17 16:43 04/16/17 23:29 Levemir SC 20 u HS [facility] Administration Insulin Human Regular 0 units 04/13/17 07:30 04/16/17 22:00 Humulin R SC Not Given [facility] Protocol Repaglinide 1 mg 04/14/17 09:00 04/16/17 17:14 Prandin PO Not Given TID [facility] Sitagliptin Phosphate 50 mg 04/14/17 09:00 04/16/17 17:14 Januvia PO Not Given BID [facility] - Patient Studies Lab Studies: Lab Studies 04/16/17 04/16/1704/16/18 Range/Units 16:44 10:02 06:08 WBC (4.8-10.8) K/uL RBC (3.80-5.20) Mil/uL Hgb (12.0-16.0) g/dL Hct (34.0-47.0) % MCV (81.0-99.0) fl MCH (27.0-31.0) pg MCHC (33.0-37.0) g/dL RDW (11.5-14.5) % Plt Count (130-400) K/uL Sodium 140 (132-148) mmol/l Potassium 3.7 (3.6-5.0) MMOL/L Chloride 98 (98-107) mmol/L Carbon Dioxide 33 H (22-30) mmol/L Anion Gap 13 (10-20) BUN 14 (7-17) mg/dl Creatinine 0.6 L (0.7-1.2) mg/dl Est GFR ( Amer) > 60 Est GFR (Non-Af Amer) > 60 POC Glucose (mg/dL) 192 H (65-110) mg/dL Random Glucose 181 H (65-105) mg/dL Calcium 8.8 (8.4-10.2) mg/dL Influenza Typ A,B (EIA) Negative for flu a/b (NEGATIVE) 04/16/17 04/16/17 Range/Units 06:08 04:53 WBC 7.5 (4.8-10.8) K/uL RBC 4.58 (3.80-5.20) Mil/uL Hgb 13.3 (12.0-16.0) g/dL Hct 40.6 (34.0-47.0) % MCV 88.5 (81.0-99.0) fl MCH 29.0 (27.0-31.0) pg MCHC 32.8 L (33.0-37.0) g/dL RDW 14.7 H (11.5-14.5) % Plt Count 189 (130-400) K/uL Sodium (132-148) mmol/l Potassium (3.6-5.0) MMOL/L Chloride (98-107) mmol/L Carbon Dioxide (22-30) mmol/L Anion Gap (10-20) BUN (7-17) mg/dl Creatinine (0.7-1.2) mg/dl Est GFR ( Amer) Est GFR (Non-Af Amer) POC Glucose (mg/dL) 169 H (65-110) mg/dL Random Glucose (65-105) mg/dL Calcium (8.4-10.2) mg/dL Influenza Typ A,B (EIA) (NEGATIVE) Laboratory Results - last 24 hr 04/16/17 04/16/17 04/16/17 04:53 06:08 06:08 WBC 7.5 RBC 4.58 Hgb 13.3 Hct 40.6 MCV 88.5 MCH 29.0 MCHC 32.8 L RDW 14.7 H Plt Count 189 Sodium 140 Potassium 3.7 Chloride 98 Carbon Dioxide 33 H Anion Gap 13 BUN 14 Creatinine 0.6 L Est GFR ( Amer) > 60 Est GFR (Non-Af Amer) > 60 POC Glucose (mg/dL) 169 H Random Glucose 181 H Calcium 8.8 Influenza Typ A,B (EIA) 04/16/17 04/16/17 10:02 16:44 WBC RBC Hgb Hct MCV MCH MCHC RDW Plt Count Sodium Potassium Chloride Carbon Dioxide Anion Gap BUN Creatinine Est GFR ( Amer) Est GFR (Non-Af Amer) POC Glucose (mg/dL) 192 H Random Glucose Calcium Influenza Typ A,B (EIA) Negative for flu a/b Fingerstick Blood Sugar Results: 192 Critical Care Progress Note - Nutrition Nutrition: Nutrition Category Date Time Status NPO Diet [DIET] Diets 04/16/17 Dinner Active Assessment/Plan - Date & Time Date: 04/17/17 Time: 04:19
[2017-04-17 06:30] LABS: HEMOGLOBIN 12.6 g/dL (12.0-16.0); MEAN CELL VOLUME 88.9 fl (81.0-99.0); MEAN CORPUSCULAR HEMOGLOBIN 28.5 pg (27.0-31.0); RBC 4.43 Mil/uL (3.80-5.20); WHITE BLOOD COUNT 7.2 K/uL (4.8-10.8)
[2017-04-17 06:43] LABS: BLOOD UREA NITROGEN 20 mg/dl (7-17); CALCIUM 8.8 mg/dL (8.4-10.2); GFR AFRICAN-AMERICAN > 60; GFR NON-AFRICAN AMERICAN > 60
--- NOTE | 2017-04-17 07:40 | CP.PCM.PN ---
Subjective - Date & Time of Evaluation Date of Evaluation: 04/17/17 Time of Evaluation: 09:15 - Subjective Subjective: Patient was seen and examined bedside. patient is elderly female of stated age lying in bed , very drowsy and lethargic. Haldol was given this AM due to patient being restless and agitated and for CT head. She responds to tactile stimuli, not following any commands on 1;1 for safety due to episodes of agitation and confusion Objective - Vital Signs/Intake and Output Vital Signs (last 24 hours): Temp Pulse Resp BP Pulse Ox 100 F H 103 H 16 106/56 L 96 04/17/17 04:00 04/17/17 06:00 04/17/17 06:00 04/17/17 06:00 04/17/17 06:00 - Medications Medications: Current Medications Acetaminophen (Tylenol 325mg Tab) 650 mg PO Q6 PRN PRN Reason: fever > 100.4 Last Admin: 04/15/17 23:58 Dose: 650 mg Aspirin (Aspirin Chewable) 81 mg PO DAILY [facility] Last Admin: 04/16/17 15:31 Dose: Not Given Atorvastatin Calcium (Lipitor) 40 mg PO [facility] Last Admin: 04/16/17 22:00 Dose: Not Given Bacitracin (Bacitracin Oint) 1 applic TOP BID [facility] Last Admin: 04/16/17 17:15 Dose: Not Given Clopidogrel Bisulfate (Plavix) 75 mg PO DAILY [facility] Last Admin: 04/16/17 15:33 Dose: Not Given Glipizide (Glucotrol Xl) 10 mg PO BRKDIN [facility] Last Admin: 04/16/17 17:13 Dose: Not Given Insulin Detemir (Levemir) 20 units SC [facility] Last Admin: 04/16/17 23:29 Dose: 20 u Insulin Human Regular (Humulin R) 0 units SC [facility] PRN Reason: Protocol Last Admin: 04/16/17 22:00 Dose: Not Given Repaglinide (Prandin) 1 mg PO TID [facility] Last Admin: 04/16/17 17:14 Dose: Not Given Sitagliptin Phosphate (Januvia) 50 mg PO BID [facility] Last Admin: 04/16/17 17:14 Dose: Not Given - Labs Labs: 04/17/17 05:32 04/17/17 05:32 PT 9.7 Seconds (9.8-13.1) L 04/12/17 21:15 INR 0.9 (0.9-1.2) 04/12/17 21:15 APTT 26.0 Seconds (25.6-37.1) 04/12/17 21:15 - Constitutional Appears: Confused, Other (lethargic , not following any command, with episodes of restlessness and agitation ) - Head Exam Head Exam: ATRAUMATIC, NORMOCEPHALIC - Eye Exam Eye Exam: PERRL - ENT Exam ENT Exam: Mucous Membranes Dry Additional comments: very dry , cracked lips - Neck Exam Neck Exam: Normal Inspection - Respiratory Exam Respiratory Exam: NORMAL BREATHING PATTERN. absent: Accessory Muscle Use, Prolonged Expiratory Phase, Rhonchi, Wheezes, Respiratory Distress - Cardiovascular Exam Cardiovascular Exam: REGULAR RHYTHM, RRR, +S1, +S2. absent: JVD - GI/Abdominal Exam GI & Abdominal Exam: Soft, Normal Bowel Sounds. absent: Distended, Guarding, Tenderness, Rebound - Rectal Exam Rectal Exam: Deferred - Extremities Exam Extremities Exam: Full ROM, Normal Capillary Refill, Normal Inspection. absent : Calf Tenderness, Pedal Edema - Neurological Exam Additional comments: lethargic not following commands with episodes of agitation responsive to tactile stimuli moving her 4 extremities - Skin Skin Exam: Dry, Warm Additional comments: bilateral big toes dry calluses Assessment and Plan - Assessment and Plan (Free Text) Assessment: 72 y/o F PMH DM, HTN, HLD brought to the ED with acutely worsening altered mental status though it has been progressively worsening over the past few months; she has been speaking less since yesterday.Patient's was recently hospitalized and was unable to take care of his , and she has not been eating well, or taking her medications. CT head was neg for acute CVA or bleed. Patient glucose elevated 563, HD stable. MRI head showed acute stroke in right frontal lobe white matter Patient presented with left facial droop and and some expressive aphasia Neuro consulted and patient admitted to telemetry.She was started on ASA, Statin , plavix,lovenox , Insulin and IVF for glycemic control.Her BP initially was kept elevated to allow permissive hypertension While in telemetry patient developed worsening BAILON and some left arm weakness so Depakote and magnesium Iv wasd given . Patient became more confused , agitated , restless ,not following any commands Ativan was given to perform repeat MRI that showed acute/ subcute stroke in right mcleod radiata and centrum ovale Transferred to ICU for close monitoring She also continuous to spike fever with Tmax 102 with no obvious source of infection WBC 7 K At present in ICU , with episodes of agitation , on 1:1 for safety. Lethargic at present after haldol was given for agitation. With diarrhea today 1. AMS Could be combination of worsening of stroke, delirium in an elderly patient with possible dementia (as per patient is on dementia medication ),sun downing ?, medication side effect ? Work up for infection negative so far . Patient still febrile with Tmax 102 UA - clear , Blood Cx - sent , CXR showed no infiltrate With diarrhea today . Will send C.diff Repeat MRI showed right mcleod radiata and semiovale stroke ( new findings) Continue ICU monitoring neuro following. Started on Depakote IV for mood stabilizer Keep NPO Swallow eval on 1: 1 for safety 2. Fever unclear etiology possible central ? CXR - no infiltrate UA- clear , WBC 7 K, influenza negative F/u blood cx Echo - no vegetations Tylenol PRN for Now no need for antibiotics at present 3. Acute ischemic stroke worsening mental status Repeat MRI showed new findings with right mcleod radiata and centrum semiovale stroke Keep NPO Continue neuro checks repeat CT head without contrast done this AM showed :Stable appearance of acute /subacute right mcleod radiata/ centrum semiovale and subacute small left mcleod radiata/centrum semiovale infarctions. No significant interval change. Neuro following and Dr. Alberts informed of new changes Continue ASA, statin, glycemic control Tylenol PRN for fever Started Eliquist PO for anticoagulation and Depakote for mood stabilizer. D/c Plavix Cardio consulted for possible JUSTYNA 4 .Uncontrolled DM Continue accuchecks, insulin coverage keep npo for now Start IVF Levemir to 20 units q hs Hgb A1c 16 5. Hypertension permissive hypertension for now 6. Dyslipidemia c/w Atorvastatin 40 mg PO 7. Diabetic foot calluses podiatry consulted 6.DVT ppx d/c lovenox started eliquist
[2017-04-17] MEDS: Bacitracin OINT 15GM TOP SCH ×2 (09:00→17:00)
--- NOTE | 2017-04-17 10:01 | CP.PCM.PN ---
Subjective - Date & Time of Evaluation Date of Evaluation: 04/17/17 Time of Evaluation: 09:51 - Subjective Subjective: Ms. Black was seen and examined at the bedside in ICU. She is sleepy, haldol was given to her for her agitation and for CT of the head without contrast. She remains responsive to tactile stimuli, moves her extremities spontaneously. Her pupils are sluggish to react to light accommodation.She has episodes of restlessness and agitation, she is on 1:1 sitter for patient safety. According to staff, patient was unable to eat since yesterday.CT of the head without contrast, MRI of the brain results are pending. Objective - Vital Signs/Intake and Output Vital Signs (last 24 hours): Temp Pulse Resp BP Pulse Ox 101.5 F H 103 H 16 147/56 L 95 04/17/17 08:00 04/17/17 08:00 04/17/17 08:00 04/17/17 08:00 04/17/17 08:00 - Medications Medications: Current Medications Acetaminophen (Tylenol 325mg Tab) 650 mg PO Q6 PRN PRN Reason: fever > 100.4 Last Admin: 04/15/17 23:58 Dose: 650 mg Aspirin (Aspirin Chewable) 81 mg PO DAILY [facility] Last Admin: 04/16/17 15:31 Dose: Not Given Atorvastatin Calcium (Lipitor) 40 mg PO HS [facility] Last Admin: 04/16/17 22:00 Dose: Not Given Bacitracin (Bacitracin Oint) 1 applic TOP BID [facility] Last Admin: 04/16/17 17:15 Dose: Not Given Clopidogrel Bisulfate (Plavix) 75 mg PO DAILY [facility] Last Admin: 04/16/17 15:33 Dose: Not Given Glipizide (Glucotrol Xl) 10 mg PO BRKDIN [facility] Last Admin: 04/16/17 17:13 Dose: Not Given Insulin Detemir (Levemir) 20 units SC HS [facility] Last Admin: 04/16/17 23:29 Dose: 20 u Insulin Human Regular (Humulin R) 0 units SC ACHS [facility] PRN Reason: Protocol Last Admin: 04/16/17 22:00 Dose: Not Given Repaglinide (Prandin) 1 mg PO TID [facility] Last Admin: 04/16/17 17:14 Dose: Not Given Sitagliptin Phosphate (Januvia) 50 mg PO BID [facility] Last Admin: 04/16/17 17:14 Dose: Not Given - Labs Labs: 04/17/17 05:32 04/17/17 05:32 PT 9.7 Seconds (9.8-13.1) L 04/12/17 21:15 INR 0.9 (0.9-1.2) 04/12/17 21:15 APTT 26.0 Seconds (25.6-37.1) 04/12/17 21:15 - Constitutional Appears: No Acute Distress - Head Exam Head Exam: NORMAL INSPECTION - Neurological Exam Neuro motor strength exam: Left Upper Extremity: 3, Right Upper Extremity: 3, Left Lower Extremity: 3, Right Lower Extremity: 3 Additional comments: She is currently sedated, unable to do assessment except for tactile stimuli. Assessment and Plan (1) CVA (cerebral vascular accident) Assessment & Plan: Case discussed with Dr. Alberts, continue all current medical regimen. Recommend JUSTYNA to evaluate embolic origin, depakote 500 mg IVPB Q 12 for mood stabilizer, eliquis 2.5 mg PO BID, and 0.9 NS at 100 ml/hr for hydration. Status: Acute
[2017-04-17] MEDS ORDERED: Sodium Chloride 0.9% 1,000 ML IV SCH (10:30)
--- NOTE | 2017-04-17 10:32 | CT ---
PROCEDURE: CT HEAD WITHOUT CONTRAST. HISTORY: acute stroke COMPARISON: MRI brain dated 04/16/2017. TECHNIQUE: Axial computed tomography images were obtained through the head/brain without intravenous contrast. Radiation dose: Total exam DLP = 946 mGy-cm. This CT exam was performed using one or more of the following dose reduction techniques: Automated exposure control, adjustment of the mA and/or kV according to patient size, and/or use of iterative reconstruction technique. FINDINGS: HEMORRHAGE: No intracranial hemorrhage. BRAIN: Round acute/ subacute right parietal/mcleod radiata/ centrum semiovale area of infarction redemonstrated. Subtle focus of left mcleod radiata/ centrum semiovale subacute infarction redemonstrated. No new area of acute lobar infarction. VENTRICLES: Unremarkable. No hydrocephalus. CALVARIUM: Unremarkable. PARANASAL SINUSES: Unremarkable as visualized. No significant inflammatory changes. MASTOID AIR CELLS: Unremarkable as visualized. No inflammatory changes. OTHER FINDINGS: None. IMPRESSION: Stable appearance of acute/subacute right mcleod radiata/ centrum semiovale and subacute small left mcleod radiata/centrum semiovale infarctions. No significant interval change.
[2017-04-17] MEDS: GlipiZIDE 10 mg SR Tab PO SCH ×2 (12:24→18:02)
[2017-04-17] MEDS: Insulin Regular 100 units/ml SC SCH ×4 (12:24→22:39)
[2017-04-17] MEDS ORDERED: Chlorhexidine Gluconate 1 APPL/PKT TP ONE (18:45)
[2017-04-17] MEDS: Valproate 500 MG in Sodium Chloride 0.9% 100 ML IVPB SCH (22:02)
[2017-04-17] MEDS: Insulin Detemir 100 Units/ml Inj SC SCH (22:42)
--- NOTE | 2017-04-18 00:23 | CON ---
CARDIOLOGY CONSULTATION REASON FOR CONSULTATION: Evaluation for JUSTYNA. HISTORY OF PRESENT ILLNESS: The patient is a 72-year-old female who has a history of hypertension, hyperlipidemia, diabetes mellitus, and presented initially because of altered mental status. The patient was diagnosed with recurrent CVA while in the ICU. The most recent head CT scan from today reported stable appearance for acute right mcleod radiata/centrum semiovale and subacute left mcleod radiata/centrum semiovale infarcts. No significant interval changes. JUSTYNA was recommended to rule out embolic event. MEDICATIONS: Aspirin 81 mg once a day, Eliquis 2.5 mg twice a day, was started today, Glucotrol XL 10 mg once a day, Januvia 50 mg twice a day, Lipitor 40 mg once a day, Prandin 1 mg t.i.d., valproate sodium 500 mg IV piggyback q.12 hours p.r.n., and IM Haldol for agitation. PAST MEDICAL HISTORY: Hypertension, diabetes mellitus, and hyperlipidemia. PHYSICAL EXAMINATION: GENERAL: The patient is an elderly female who is currently sedated after getting IM Haldol and does not appear to be in any respiratory distress. VITAL SIGNS: Blood pressure 134/65, heart rate 102, temperature 100.6, and respirations 20. HEENT: No pallor or icterus. NECK: No JVD. CHEST: Symmetrical breath sounds at the bases. HEART: S1 and S2 regular. ABDOMEN: Soft. EXTREMITIES: No edema. Dressings applied to both big toes. LABORATORY DATA: SMA-7: Sodium 141, potassium 3.8, chloride 102, CO2 of 28, glucose 101, BUN 20, and creatinine 0.6. One set of troponin on admission was normal. Today's hemoglobin, hematocrit, white count, and platelet count are within normal limits. INR and PTT are within normal limits. Clostridium difficile antigen and toxin are negative. EKG revealed normal sinus rhythm, first-degree AV block, and nonspecific ST-T wave changes. Echocardiographic study revealed normal left ventricular size and wall thickness as well as ejection fraction, grade 1 abnormal relaxation pattern, and [id number] pulmonary hypertension. Brain MRI and MRA reports performed 2 days ago, the report is still pending. Arterial ultrasound of lower extremity was normal. Head and neck CTA. Unremarkable CTA angio of the brain. Brain MRI on 04/13/2017 revealed subcentimeter high white matter infarct, right much more conspicuous and definitive than the left. No hemorrhage or mass. ASSESSMENT: 1. Bilateral mcleod radiata infarcts. 2. Hypertension. 3. Diabetes mellitus. 4. Hyperlipidemia. RECOMMENDATIONS: Continue current aspirin, Eliquis, glipizide, Januvia, Levemir, Lipitor, Prandin, and valproic acid. Case was discussed with primary physician and hospitalist on the case. Once the patient is stable enough and if the family agreed for the procedure and its risks, the patient will be transferred to [facility] for JUSTYNA; however in my opinion if JUSTYNA will not change the decision of anticoagulation, then it will be justified not to sedate the patient to unnecessary risks of the procedure. Jesu Serrato MD
[2017-04-18 05:09] LABS: HEMOGLOBIN 12.2 g/dL (12.0-16.0); MEAN CELL VOLUME 89.3 fl (81.0-99.0); MEAN CORPUSCULAR HEMOGLOBIN 28.5 pg (27.0-31.0); MEAN CORPUSCULAR HGB CONC 31.9 g/dL (33.0-37.0); RBC 4.29 Mil/uL (3.80-5.20); RED CELL DISTRIBUTION WIDTH 15.3 % (11.5-14.5)
[2017-04-18 05:17] LABS: ALB/GLOB RATIO 0.8 (1.0-2.1); ALBUMIN 3.1 g/dL (3.5-5.0); ALT/SGPT 23 U/L (9-52); AST/SGOT 31 U/L (14-36); BLOOD UREA NITROGEN 23 mg/dl (7-17); CALCIUM 8.3 mg/dL (8.4-10.2); GFR AFRICAN-AMERICAN > 60; GFR NON-AFRICAN AMERICAN > 60
[2017-04-18] MEDS: Insulin Regular 100 units/ml SC SCH ×5 (06:30→22:03)
--- NOTE | 2017-04-18 07:22 | CP.CCUPN ---
CCU Subjective - Physician Review Events Since Last Encounter (Free Text): 04/18/17 The patient was Seen/interviewed and examined by me at the bedside during ICU round, Medical records reviewed and Management issues were discussed and formulated with the house staff. Events reviewed 72 Years old Female with past medical history of HTN, diabetes, high cholesterol , CAD and bilateral hallux ulceration. Who was brought in via EMS to ER on 04/12 for evaluation of altered mental status , onset a few months ago. Patient's reports that her mental status has been worsening for the last few months, but has become acute worse since yesterday. He was admitted to the telemetry with acute cerebral vascular accident 04/17, Patient developed Worsening Change in mental status/ Left upper extremity weakness, code stroke was called and was transferred to ICU. Pt drowsy, follows some commands Denies any chest pain, SOB or Palpitations 04/18/17 15:[address] 04/12/17: Negative for hemorrhagic and ischemic stroke MRI brain 04/13/17: Bilateral white matter Infarct Carotid US 04/13/17: < 50% stenosis bilateral Head & Neck CTA 04/14/17: Unremarkable CTA of Brain Head CT 04/15/17: Small Acute infarct at right posterior Superior Vo Radiata/ Centrum Semi ovale MRI Brain 04/15/17: Acute /Subacute right vo Radiata and Centrum Semi Ovale infarcts CCU Objective - Vital Signs / Intake & Output Vital Signs (Last 4 hours): Vital Signs Temp Pulse Resp BP Pulse Ox 04/18/17 06:00 110 H 17 157/59 H 94 L 04/18/17 04:00 98.9 F 110 H 20 154/82 H 96 Intake and Output (Last 8hrs): Intake & Output 04/17/17 04/18/17 04/18/17 22:59 06:59 14:59 Intake Total 700 Balance 700 Intake: IV 700 Other: # Voids Urine, Voided 6 # Bowel Movements 6 - Medications Active Medications: Active Medications Generic Name Dose Route Start Last Admin Trade Name Freq PRN Reason Stop Dose Admin Acetaminophen 650 mg 04/15/17 23:34 04/15/17 23:58 Tylenol 325mg Tab PO 650 mg Q6 PRN Administration fever > 100.4 Apixaban 2.5 mg 04/17/17 17:00 Eliquis PO BID BRIAN Protocol Aspirin 81 mg 04/13/17 09:00 04/17/17 12:24 Aspirin Chewable PO Not Given DAILY B[facility] Atorvastatin Calcium 40 mg 04/13/17 22:00 04/17/17 22:39 Lipitor PO Not Given HS [facility]RIAN Bacitracin 1 applic 04/16/17 09:00 04/17/17 17:00 Bacitracin Oint TOP 1 applic BID [facility]RIAN Administration Glipizide 10 mg 04/14/17 08:00 04/17/17 18:02 Glucotrol Xl PO Not Given BRKDIN BRIAN Valproate Sodium 500 mg/ 105 mls @ 105 mls/hr 04/17/17 21:00 04/17/17 22:02 Sodium Chloride IVPB 105 mls/hr Q12 [facility]RIAN Administration As Directed Sodium Chloride 1,000 mls @ 100 mls/hr 04/17/17 10:30 04/17/17 12:38 Sodium Chloride 0.9% IV 04/18/17 10:17 100 mls/hr .Q10H [facility] Administration Insulin Detemir 20 units 04/15/17 16:43 04/17/17 22:42 Levemir SC 20 u HS [facility] Administration Insulin Human Regular 0 units 04/13/17 07:30 04/18/17 06:30 Humulin R SC Not Given ACHS [facility] Protocol Repaglinide 1 mg 04/14/17 09:00 04/17/17 18:03 Prandin PO Not Given TID [facility] Sitagliptin Phosphate 50 mg 04/14/17 09:00 04/17/17 18:03 Januvia PO Not Given BID [facility] - Patient Studies Lab Studies: Microbiology Studies 04/15/17 06:14 Blood Culture - Preliminary Blood-Venous NO GROWTH AFTER 24 HOURS 04/15/17 06:14 Blood Culture - Preliminary Blood-Venous NO GROWTH AFTER 24 HOURS Lab Studies 04/18/17 04/18/17 04/18/17 Range/Units 05:45 04:50 04:50 WBC 5.0 (4.8-10.8) K/uL RBC 4.29 (3.80-5.20) Mil/uL Hgb 12.2 (12.0-16.0) g/dL Hct 38.3 (34.0-47.0) % MCV 89.3 (81.0-99.0) fl MCH 28.5 (27.0-31.0) pg MCHC 31.9 L (33.0-37.0) g/dL RDW 15.3 H (11.5-14.5) % Plt Count 184 (130-400) K/uL Sodium 143 (132-148) mmol/l Potassium 3.2 L (3.6-5.0) MMOL/L Chloride 107 (98-107) mmol/L Carbon Dioxide 29 (22-30) mmol/L Anion Gap 10 (10-20) BUN 23 H (7-17) mg/dl Creatinine 0.6 L (0.7-1.2) mg/dl Est GFR ( Amer) > 60 Est GFR (Non-Af Amer) > 60 POC Glucose (mg/dL) 120 H (65-110) mg/dL Random Glucose 143 H (65-105) mg/dL Calcium 8.3 L (8.4-10.2) mg/dL Total Bilirubin 0.2 (0.2-1.3) mg/dl AST 31 (14-36) U/L ALT 23 (9-52) U/L Alkaline Phosphatase 69 (38-126) U/L Total Protein 6.9 (6.3-8.2) G/DL Albumin 3.1 L (3.5-5.0) g/dL Globulin 3.8 (2.2-3.9) gm/dL Albumin/Globulin Ratio 0.8 L (1.0-2.1) Procalcitonin (0.19-0.49) NG/ML C. difficile Ag & Toxin (NEGATIVE) 04/17/17 04/17/17 04/17/17 Range/Units 22:30 17:17 11:45 WBC (4.8-10.8) K/uL RBC (3.80-5.20) Mil/uL Hgb (12.0-16.0) g/dL Hct (34.0-47.0) % MCV (81.0-99.0) fl MCH (27.0-31.0) pg MCHC (33.0-37.0) g/dL RDW (11.5-14.5) % Plt Count (130-400) K/uL Sodium (132-148) mmol/l Potassium (3.6-5.0) MMOL/L Chloride (98-107) mmol/L Carbon Dioxide (22-30) mmol/L Anion Gap (10-20) BUN (7-17) mg/dl Creatinine (0.7-1.2) mg/dl Est GFR ( Amer) Est GFR (Non-Af Amer) POC Glucose (mg/dL) 147 H 161 H 171 H (65-110) mg/dL Random Glucose (65-105) mg/dL Calcium (8.4-10.2) mg/dL Total Bilirubin (0.2-1.3) mg/dl AST (14-36) U/L ALT (9-52) U/L Alkaline Phosphatase (38-126) U/L Total Protein (6.3-8.2) G/DL Albumin (3.5-5.0) g/dL Globulin (2.2-3.9) gm/dL Albumin/Globulin Ratio (1.0-2.1) Procalcitonin (0.19-0.49) NG/ML C. difficile Ag & Toxin (NEGATIVE) 04/17/17 04/17/17 Range/Units 10:01 05:32 WBC (4.8-10.8) K/uL RBC (3.80-5.20) Mil/uL Hgb (12.0-16.0) g/dL Hct (34.0-47.0) % MCV (81.0-99.0) fl MCH (27.0-31.0) pg MCHC (33.0-37.0) g/dL RDW (11.5-14.5) % Plt Count (130-400) K/uL Sodium (132-148) mmol/l Potassium (3.6-5.0) MMOL/L Chloride (98-107) mmol/L Carbon Dioxide (22-30) mmol/L Anion Gap (10-20) BUN (7-17) mg/dl Creatinine (0.7-1.2) mg/dl Est GFR ( Amer) Est GFR (Non-Af Amer) POC Glucose (mg/dL) (65-110) mg/dL Random Glucose (65-105) mg/dL Calcium (8.4-10.2) mg/dL Total Bilirubin (0.2-1.3) mg/dl AST (14-36) U/L ALT (9-52) U/L Alkaline Phosphatase (38-126) U/L Total Protein (6.3-8.2) G/DL Albumin (3.5-5.0) g/dL Globulin (2.2-3.9) gm/dL Albumin/Globulin Ratio (1.0-2.1) Procalcitonin 0.09 L (0.19-0.49) NG/ML C. difficile Ag & Toxin Negative (NEGATIVE) Laboratory Results - last 24 hr 04/17/17 04/17/17 04/17/17 05:32 10:01 11:45 WBC RBC Hgb Hct MCV MCH MCHC RDW Plt Count Sodium Potassium Chloride Carbon Dioxide Anion Gap BUN Creatinine Est GFR ( Amer) Est GFR (Non-Af Amer) POC Glucose (mg/dL) 171 H Random Glucose Calcium Total Bilirubin AST ALT Alkaline Phosphatase Total Protein Albumin Globulin Albumin/Globulin Ratio Procalcitonin 0.09 L C. difficile Ag & Toxin Negative 04/17/17 04/17/17 04/18/17 17:17 22:30 04:50 WBC 5.0 RBC 4.29 Hgb 12.2 Hct 38.3 MCV 89.3 MCH 28.5 MCHC 31.9 L RDW 15.3 H Plt Count 184 Sodium Potassium Chloride Carbon Dioxide Anion Gap BUN Creatinine Est GFR ( Amer) Est GFR (Non-Af Amer) POC Glucose (mg/dL) 161 H 147 H Random Glucose Calcium Total Bilirubin AST ALT Alkaline Phosphatase Total Protein Albumin Globulin Albumin/Globulin Ratio Procalcitonin C. difficile Ag & Toxin 04/18/17 04/18/17 04:50 05:45 WBC RBC Hgb Hct MCV MCH MCHC RDW Plt Count Sodium 143 Potassium 3.2 L Chloride 107 Carbon Dioxide 29 Anion Gap 10 BUN 23 H Creatinine 0.6 L Est GFR ( Amer) > 60 Est GFR (Non-Af Amer) > 60 POC Glucose (mg/dL) 120 H Random Glucose 143 H Calcium 8.3 L Total Bilirubin 0.2 AST 31 ALT 23 Alkaline Phosphatase 69 Total Protein 6.9 Albumin 3.1 L Globulin 3.8 Albumin/Globulin Ratio 0.8 L Procalcitonin C. difficile Ag & Toxin Fingerstick Blood Sugar Results: 120 Critical Care Progress Note - Nutrition Nutrition: Nutrition Category Date Time Status NPO Diet [DIET] Diets 04/16/17 Dinner Active Assessment/Plan (1) CVA (cerebral vascular accident) Current Visit: Yes Status: Acute Priority: High (2) Dyslipidemia Current Visit: Yes Status: Acute (3) Hypertension Current Visit: Yes Status: Acute (4) Type 2 diabetes mellitus with pressure callus Current Visit: Yes Status: Acute - Assessment and Plan (Free Text) Plan: - Acute stroke - Keep NPO - Some neurological improvement - Continue with ICU for frequent neuro checks - Neurology Consult appreciated - Continue aspirin - Continue Lipitor 40 mg daily - Echocardiogram with bubble study - Carotid Doppler - Continue accuchecks, RISS coverage - Maintain fall and aspiration precaution - Tylenol PRN for fever - DVT: Lovenox
[2017-04-18] MEDS ORDERED: Chlorhexidine Gluconate 1 APPL/PKT TP ONE ×3 (08:25→15:38)
[2017-04-18] MEDS: GlipiZIDE 10 mg SR Tab PO SCH ×2 (09:00→17:06)
[2017-04-18] MEDS: Valproate 500 MG in Sodium Chloride 0.9% 100 ML IVPB SCH ×2 (09:09→21:59)
--- NOTE | 2017-04-18 09:44 | CP.PCM.PN ---
Subjective - Date & Time of Evaluation Date of Evaluation: 04/18/17 Time of Evaluation: 09:42 - Subjective Subjective: Podiatry Progress Note- Dr. Patterson 72 y.o female with PMH DM, HTN, HLD, and CAD consulted for bilateral hallux ulceration. Patient is sleeping during the time of visitation with 1:1. She is seen resting in bed. Per nursing, no acute overnight events Objective - Vital Signs/Intake and Output Vital Signs (last 24 hours): Temp Pulse Resp BP Pulse Ox 99.1 F 109 H 20 135/69 95 04/18/17 08:00 04/18/17 08:00 04/18/17 08:00 04/18/17 08:00 04/18/17 08:00 - Medications Medications: Current Medications Acetaminophen (Tylenol 325mg Tab) 650 mg PO Q6 PRN PRN Reason: fever > 100.4 Last Admin: 04/15/17 23:58 Dose: 650 mg Apixaban (Eliquis) 2.5 mg PO BID [facility] PRN Reason: Protocol Aspirin (Aspirin Chewable) 81 mg PO DAILY [facility] Last Admin: 04/17/17 12:24 Dose: Not Given Atorvastatin Calcium (Lipitor) 40 mg PO HS [facility] Last Admin: 04/17/17 22:39 Dose: Not Given Bacitracin (Bacitracin Oint) 1 applic TOP BID [facility] Last Admin: 04/17/17 17:00 Dose: 1 applic Glipizide (Glucotrol Xl) 10 mg PO BRKDIN [facility] Last Admin: 04/17/17 18:02 Dose: Not Given Valproate Sodium 500 mg/ (Sodium Chloride) 105 mls @ 105 mls/hr IVPB Q12 [facility] PRN Reason: As Directed Last Admin: 04/18/17 09:09 Dose: 105 mls/hr Sodium Chloride (Sodium Chloride 0.9%) 1,000 mls @ 100 mls/hr IV .Q10H [facility] Stop: 04/18/17 10:17 Last Admin: 04/17/17 12:38 Dose: 100 mls/hr Insulin Detemir (Levemir) [address] [facility] Last Admin: 04/17/17 22:42 Dose: 20 u Insulin Human Regular (Humulin R) 0 units SC [facility] PRN Reason: Protocol Last Admin: 04/18/17 06:30 Dose: Not Given Repaglinide (Prandin) 1 mg PO TID [facility] Last Admin: 04/17/17 18:03 Dose: Not Given Sitagliptin Phosphate (Januvia) 50 mg PO BID [facility] Last Admin: 04/17/17 18:03 Dose: Not Given - Labs Labs: 04/18/17 04:50 04/18/17 04:50 PT 9.7 Seconds (9.8-13.1) L 04/12/17 21:15 INR 0.9 (0.9-1.2) 04/12/17 21:15 APTT 26.0 Seconds (25.6-37.1) 04/12/17 21:15 - Constitutional Appears: Well, Non-toxic, No Acute Distress - Extremities Exam Additional comments: LE focused exam: Vasc: DP and PT weakly palpable, CFT delayed x 10 digits, temperature WNL, no edema noted b/l Ortho: no pain with palpation to the plantar callosities Neuro: Epicritic and protective sensation grossly intact b/l Derm: severe hyperkeratotic lesions noted to the plantar halluces bilaterally. Superficial ulceration noted to left and right distal hallux no fluctuatance, no crepitus, no erythema, no streaking, no purulence, no probe to bone, no drainage noted. - Neurological Exam Neurological Exam: Alert, Awake, Oriented x3 - Psychiatric Exam Psychiatric exam: Normal Affect, Normal Mood Assessment and Plan - Assessment and Plan (Free Text) Assessment: 72 y.o female with PMH DM, HTN, HLD, and CAD with bilateral hallux ulcerations stable with no infection Plan: Patient seen and evaluated at bedside Plan discussed with attending Dr. Patterson Afebrile, absent leukocytosis No plan for surgical intervention at this time Wounds dressed with Bacitracin and DSD Podiatry will continue to follow while patient in house
--- NOTE | 2017-04-18 09:49 | CP.PCM.PN ---
Subjective - Date & Time of Evaluation Date of Evaluation: 04/18/17 Time of Evaluation: 09:49 - Subjective Subjective: Ms. Black was seen and examined at the bedside in ICU. She is very sleepy, but able to follow commands such as opening her eyes, lifting her bilateral upper and lower extremities. She remains with expressive aphasia. She had swallowing evaluation this am, unable to follow instructions or tries to initiate swallowing. Speech therapy recommends NGT for feeding and medication purposes. She has episode of agitation and restlessness early this morning, ativan was given. She remains on 1:1 sitter for patient safety. Objective - Vital Signs/Intake and Output Vital Signs (last 24 hours): Temp Pulse Resp BP Pulse Ox 99.1 F 109 H 20 135/69 95 04/18/17 08:00 04/18/17 08:00 04/18/17 08:00 04/18/17 08:00 04/18/17 08:00 - Medications Medications: Current Medications Acetaminophen (Tylenol 325mg Tab) 650 mg PO Q6 PRN PRN Reason: fever > 100.4 Last Admin: 04/15/17 23:58 Dose: 650 mg Apixaban (Eliquis) 2.5 mg PO BID [facility] PRN Reason: Protocol Aspirin (Aspirin Chewable) 81 mg PO DAILY [facility] Last Admin: 04/17/17 12:24 Dose: Not Given Atorvastatin Calcium (Lipitor) 40 mg PO HS [facility] Last Admin: 04/17/17 22:39 Dose: Not Given Bacitracin (Bacitracin Oint) 1 applic TOP BID [facility] Last Admin: 04/17/17 17:00 Dose: 1 applic Glipizide (Glucotrol Xl) 10 mg PO BRKDIN [facility] Last Admin: 04/17/17 18:02 Dose: Not Given Valproate Sodium 500 mg/ (Sodium Chloride) 105 mls @ 105 mls/hr IVPB Q12 [facility] PRN Reason: As Directed Last Admin: 04/18/17 09:09 Dose: 105 mls/hr Sodium Chloride (Sodium Chloride 0.9%) 1,000 mls @ 100 mls/hr IV .Q10H [facility] Stop: 04/18/17 10:17 Last Admin: 04/17/17 12:38 Dose: 100 mls/hr Insulin Detemir (Levemir) 20 units SC [facility] Last Admin: 04/17/17 22:42 Dose: 20 u Insulin Human Regular (Humulin R) 0 units SC ACHS [facility] PRN Reason: Protocol Last Admin: 04/18/17 06:30 Dose: Not Given Repaglinide (Prandin) 1 mg PO TID [facility] Last Admin: 04/17/17 18:03 Dose: Not Given Sitagliptin Phosphate (Januvia) 50 mg PO BID [facility] Last Admin: 04/17/17 18:03 Dose: Not Given - Labs Labs: 04/18/17 04:50 04/18/17 04:50 PT 9.7 Seconds (9.8-13.1) L 04/12/17 21:15 INR 0.9 (0.9-1.2) 04/12/17 21:15 APTT 26.0 Seconds (25.6-37.1) 04/12/17 21:15 - Constitutional Appears: No Acute Distress - Head Exam Head Exam: NORMAL INSPECTION - Neurological Exam Neuro motor strength exam: Left Upper Extremity: 3, Right Upper Extremity: 4, Left Lower Extremity: 3, Right Lower Extremity: 4 Additional comments: She is very sleepy, but able to follow some commands such as opening her eyes, lifting her bilateral upper and lower extremities. Assessment and Plan (1) CVA (cerebral vascular accident) Assessment & Plan: Case discussed with Dr. Lyons, continue all current medical, physical, occupational, and speech therapies. Recommend cardiology consult for possible JUSTYNA, and NGT for feeding and medication administration. Status: Acute
--- NOTE | 2017-04-18 11:38 | MRI ---
PROCEDURE: MRI brain dated 04/16/2017. HISTORY: Post CVA sudden headache , more left sided weakness COMPARISON: Comparison made with prior CT scan and MRI brain dated 04/17/2017 and 04/13/2017 respectively. Correlation also made with concurrent MRA brain TECHNIQUE: Multiplanar, multisequence MR images of the brain were obtained without intravenous contrast enhancement. FINDINGS: HEMORRHAGE: No acute parenchymal, subarachnoid or extra-axial o hemorrhage. No evidence of hemosiderin deposition identified on gradient echo weighted sequence DWI: Re- demonstrated is relatively small rounded the late subacute infarct changes in the right posterolateral basal ganglia extending superiorly into the right posterior mcleod radiata and centrum semiovale. Also again noted is a smaller somewhat ring-like shaped focus of restricted diffusion in the left superior posterior periventricular white matter that probably represents some shine through artifact based on appearance when comparing diffusion imaging and ADC maps. No new infarcts are identified BRAIN PARENCHYMA: Mild diffuse/confluent chronic white matter ischemic changes with multiple more discrete chronic appearing lacunar type infarcts scattered about the deep and subcortical white matter as well as both basal nuclei and brainstem. The infarct has increased in size - expanded slightly when compared with the prior exam. Moderate generalized volume loss. VENTRICLES: No obstructive CRANIUM: Unremarkable. ORBITS: Orbits and contents grossly unremarkable PARANASAL SINUSES/MASTOIDS: Mild mucosal thickening seen within several ethmoid air cells. VASCULAR SYSTEM: Skull base flow voids intact. OTHER FINDINGS: None. IMPRESSION: Re- demonstrated is a cyst relatively small late subacute infarct in the right posterior lateral basal ganglia extending superiorly into the right posterior mcleod radiata/semi centrum ovale junction. The infarct has increased in size - expanded slightly when compared with the prior exam. No evidence of hemorrhagic conversion. No new infarcts. Chronic white matter, basal nuclei and brainstem ischemic changes are again noted. Moderate generalized volume loss also unchanged
--- NOTE | 2017-04-18 11:45 | MRI ---
PROCEDURE: MRA brain dated 04/16/2017 all HISTORY: CTA COMPARISON: Comparison made with CTA of the brain dated 04/14/2017. TECHNIQUE: 3D time of flight MR angiography of the intracranial arteries was performed. Rotating maximum intensity projection images were generated. . Note that this examination is limited due to the motion artifact. FINDINGS: INTERNAL CAROTID ARTERIES: The distal internal carotid arteries including the, petrous, cavernous and supraclinoid segments are patient. ANTERIOR CEREBRAL ARTERIES: The A1 segments are patent on so far as can be seen with the right-side slightly larger in caliber more dominant than the left. The distal anterior cerebral arteries are not visualized due to significant motion artifact. MIDDLE CEREBRAL ARTERIES: Unremarkable. M1 and M2 segments appear patent so far as can be seen. The perisylvian branches poorly delineated due to motion artifact. . POSTERIOR CIRCULATION: Prominent posterior communicating arteries bilaterally with apparent mild hypoplasia of the P1 segments felt to represent an anatomic variation. The distal posterior cerebral arteries poorly delineated. . ANEURYSM/ VASCULAR MALFORMATIONS: None so far as can be seen on this very limited exam OTHER FINDINGS: None. IMPRESSION: Very limited motion degraded study. No evidence of occlusion of the distal internal carotid arteries, vertebral arteries or right major branches of the [place]. The distal cerebral vasculature poorly delineated due to motion artifact
[2017-04-18] MEDS ORDERED: Enoxaparin 40 mg Syringe SC SCH (16:30)
[2017-04-18] MEDS: Dextrose 5%/0.45% NS 1,000 ML IV SCH (17:06)
--- NOTE | 2017-04-18 18:54 | CP.PCM.PN ---
Subjective - Date & Time of Evaluation Date of Evaluation: 04/18/17 Time of Evaluation: 08:00 - Subjective Subjective: Patient was seen and examined bedside. Patient is elderly female of stated age lying in bed , very drowsy and lethargic. Haldol and Ativan were given due to patient being restless and agitated last night and early in the morning At present lethargic ,opens eyes to command , moves right upper extremity , LE , but not LUe on 1:1 for safety due to episodes of agitation and confusion Afebrile last 12 hours, tachycardic , BP slightly elevated 161/89 Objective - Vital Signs/Intake and Output Vital Signs (last 24 hours): Temp Pulse Resp BP Pulse Ox 97.1 F L 101 H 19 174/88 H 95 04/18/17 16:00 04/18/17 18:00 04/18/17 18:00 04/18/17 18:00 04/18/17 18:00 Intake and Output: 04/18/17 04/18/17 06:59 18:59 Intake Total 1300 Balance 1300 - Medications Medications: Current Medications Acetaminophen (Tylenol 325mg Tab) 650 mg PO Q6 PRN PRN Reason: fever > 100.4 Last Admin: 04/15/17 23:58 Dose: 650 mg Apixaban (Eliquis) 2.5 mg PO BID [facility] PRN Reason: Protocol Last Admin: 04/18/17 17:06 Dose: Not Given Aspirin (Aspirin Supp) 300 mg HI DAILY [facility] Atorvastatin Calcium (Lipitor) 40 mg PO HS [facility] Last Admin: 04/17/17 22:39 Dose: Not Given Bacitracin (Bacitracin Oint) 1 applic TOP BID [facility] Last Admin: 04/17/17 17:00 Dose: 1 applic Enoxaparin Sodium (Lovenox) 40 mg SC DAILY [facility] PRN Reason: Protocol Last Admin: 04/18/17 18:24 Dose: 40 mg Glipizide (Glucotrol Xl) 10 mg PO BRKDIN [facility] Last Admin: 04/18/17 17:06 Dose: Not Given Valproate Sodium 500 mg/ (Sodium Chloride) 105 mls @ 105 mls/hr IVPB Q12 [facility] PRN Reason: As Directed Last Admin: 04/18/17 09:09 Dose: 105 mls/hr Dextrose/Sodium Chloride (Dextrose 5%/0.45% Ns 1000 Ml) 1,000 mls @ 60 mls/hr IV .[id number] [facility] Stop: 04/19/17 16:19 Last Admin: 04/18/17 17:06 Dose: 60 mls/hr Insulin Detemir (Levemir) 20 units SC HS [facility] Last Admin: 04/17/17 22:42 Dose: 20 u Insulin Human Regular (Humulin R) 0 units SC ACHS [facility] PRN Reason: Protocol Last Admin: 04/18/17 17:08 Dose: 1 units Repaglinide (Prandin) 1 mg PO TID [facility] Last Admin: 04/18/17 17:07 Dose: Not Given Sitagliptin Phosphate (Januvia) 50 mg PO BID [facility] Last Admin: 04/18/17 17:06 Dose: Not Given - Labs Labs: 04/18/17 04:50 04/18/17 04:50 PT 9.7 Seconds (9.8-13.1) L 04/12/17 21:15 INR 0.9 (0.9-1.2) 04/12/17 21:15 APTT 26.0 Seconds (25.6-37.1) 04/12/17 21:15 - Constitutional Appears: Confused, Other (lethargic with episodes of agitation and restlessness ) - Head Exam Head Exam: ATRAUMATIC, NORMOCEPHALIC - Eye Exam Eye Exam: EOMI, PERRL - ENT Exam ENT Exam: Mucous Membranes Dry, Normal Exam - Neck Exam Neck Exam: Normal Inspection - Respiratory Exam Respiratory Exam: Clear to Ausculation Bilateral, NORMAL BREATHING PATTERN. absent: Wheezes, Respiratory Distress - Cardiovascular Exam Cardiovascular Exam: Tachycardia, REGULAR RHYTHM, RRR, +S1, +S2. absent: JVD - GI/Abdominal Exam GI & Abdominal Exam: Soft, Normal Bowel Sounds. absent: Distended, Guarding, Tenderness, Rebound - Rectal Exam Rectal Exam: Deferred - Extremities Exam Extremities Exam: Full ROM, Normal Inspection. absent: Pedal Edema - Neurological Exam Additional comments: lethargic,opens eyes to command moves RUE both LE with weakness to LUE Left facial droop - Psychiatric Exam Psychiatric exam: Agitated, Flat Affect Additional comments: episodes of being restless and lethargic after medication - Skin Skin Exam: Dry, Normal Color, Warm Assessment and Plan - Assessment and Plan (Free Text) Assessment: 72 y/o F PMH DM, HTN, HLD brought to the ED with acutely worsening altered mental status though it has been progressively worsening over the past few months; she has been speaking less since yesterday.Patient's was recently hospitalized and was unable to take care of his , and she has not been eating well, or taking her medications. CT head was neg for acute CVA or bleed. Patient glucose elevated 563, HD stable. MRI head showed acute stroke in right frontal lobe white matter Patient presented with left facial droop and and some expressive aphasia Neuro consulted and patient admitted to telemetry.She was started on ASA, Statin , plavix,lovenox , Insulin and IVF for glycemic control.Her BP initially was kept elevated to allow permissive hypertension While in telemetry patient developed worsening BAILON and some left arm weakness so Depakote and magnesium Iv wasd given . Patient became more confused , agitated , restless ,not following any commands Ativan was given to perform repeat MRI that showed acute/ subcute stroke in right mcleod radiata and centrum ovale Transferred to ICU for close monitoring She continued to to spike fevers for > 48 hours with no obvious source of infection and normal WBC count.All work up sent including CXR. UA, bloodCx. No antibiotics were started as no clera of the source. Remained afebrile for the last 12 hours At present in ICU , with episodes of agitation and restless overnight , on 1:1 for safety. Lethargic at present after haldol and Ativan was given for agitation. Unable to follow commands,can not perform speech eval due to being lethargic Repeat CT head 2 showed stable stroke 1. AMS Could be combination of worsening of stroke, delirium in an elderly patient with possible dementia (as per patient is on dementia medication ),sun downing ?, medication side effect ? Work up for infection negative so far .Urine cx reported today as > [id number] colonies of multi species. Will repeat urine culture today.afebril efor 12 hours with no antibiotics Blood Cx - sent , CXR showed no infiltrate C.diff and influenza negative Repeat MRI showed right mcleod radiata and semiovale stroke ( new findings). Repeat CT head 04/17 showed no worsening stroke Continue ICU monitoring neuro following. Started on Depakote IV for mood stabilizer Keep NPO . NGT placed Replace K started IVF since patient is NPO Unable to perform Swallow eval since patient can not follow commands on 1: 1 for safety 2. Fever unclear etiology possible central ? Procalcitonin is low CXR - no infiltrate WBC 5 K, influenza negative, C.diff negative blood cx with no growth Echo - no vegetations urine cx showed multiple species . Will repeat culture Tylenol PRN for Now no need for antibiotics at present 3. Acute ischemic stroke worsening mental status Repeat MRI showed new findings with right mcleod radiata and centrum semiovale stroke Repeta CT head 04/17 showed Stable appearance of acute/subacute right mcleod radiata/ centrum semiovale and subacute small left mcleod radiata/centrum semiovale infarctions. No significant interval change. Keep NPO Continue neuro checks Neuro following ,Dr. Alberts Continue ASA, statin, glycemic control Tylenol PRN for fever Started Eliquist PO for anticoagulation and Depakote for mood stabilizer. D/c Plavix Cardio consulted for possible JUSTYNA and discussed with Dr. Lockhart. Patient at present is very lethargic and at high risk for being intubated and unable to be extubated continue current management BP slightly elevated . Allow permissive hypertension . Discuss with neuro about starting antihypertensives 4 .Uncontrolled DM Continue accuchecks, insulin coverage keep npo for now on IVF Levemir to 20 units q hs Hgb A1c 16 5. Hypertension permissive hypertension for now 6. Dyslipidemia c/w Atorvastatin 40 mg PO 7. Diabetic foot calluses podiatry consulted and following 8. Hypokalemia Replace with KCl runs 9.DVT ppx d/c lovenox started eliquist
[2017-04-18] MEDS: Potassium CL 10 MEQ/50 ML 50 ML IVPB SCH ×2 (21:57→23:23)
[2017-04-18] MEDS: Insulin Detemir 100 Units/ml Inj SC SCH (22:03)
[2017-04-19] MEDS: Potassium CL 10 MEQ/50 ML 50 ML IVPB SCH ×2 (01:14→02:53)
[2017-04-19 05:23] LABS: HEMOGLOBIN 12.4 g/dL (12.0-16.0); MEAN CELL VOLUME 89.3 fl (81.0-99.0); MEAN CORPUSCULAR HEMOGLOBIN 28.7 pg (27.0-31.0); MEAN CORPUSCULAR HGB CONC 32.1 g/dL (33.0-37.0); RBC 4.31 Mil/uL (3.80-5.20); RED CELL DISTRIBUTION WIDTH 14.6 % (11.5-14.5); WHITE BLOOD COUNT 4.2 K/uL (4.8-10.8)
[2017-04-19 05:36] LABS: BLOOD UREA NITROGEN 12 mg/dl (7-17); CALCIUM 8.5 mg/dL (8.4-10.2); GFR AFRICAN-AMERICAN > 60; GFR NON-AFRICAN AMERICAN > 60
[2017-04-19] MEDS: Insulin Regular 100 units/ml SC SCH ×4 (08:00→21:20)
[2017-04-19] MEDS: Valproate 500 MG in Sodium Chloride 0.9% 100 ML IVPB SCH ×2 (08:48→20:54)
[2017-04-19] MEDS: GlipiZIDE 10 mg SR Tab PO SCH ×2 (08:49→17:48)
[2017-04-19] MEDS ORDERED: Influenza Vaccine 18yr & older 0.5 ML/45 MCG SYR IM ONE (08:54)
--- NOTE | 2017-04-19 09:07 | CP.PCM.PN ---
Subjective - Date & Time of Evaluation Date of Evaluation: 04/19/17 Time of Evaluation: 09:05 - Subjective Subjective: Podiatry Progress Note- Dr. Patterson 72 y.o female with PMH DM, HTN, HLD, and CAD consulted for bilateral hallux ulcerations. Patient is sleeping during the time of visitation with 1:1. She is seen resting in bed. Per nursing, no acute overnight events Objective - Vital Signs/Intake and Output Vital Signs (last 24 hours): Temp Pulse Resp BP Pulse Ox 97.7 F 90 41 H 163/97 H 94 L 04/19/17 08:00 04/19/17 08:00 04/19/17 08:00 04/19/17 08:00 04/19/17 08:00 - Medications Medications: Current Medications Acetaminophen (Tylenol 325mg Tab) 650 mg PO Q6 PRN PRN Reason: fever > 100.4 Last Admin: 04/15/17 23:58 Dose: 650 mg Apixaban (Eliquis) 2.5 mg PO BID [facility] PRN Reason: Protocol Last Admin: 04/19/17 08:49 Dose: 2.5 mg Aspirin (Aspirin Supp) 300 mg [place] DAILY [facility] Atorvastatin Calcium (Lipitor) 40 mg PO HS [facility] Last Admin: 04/18/17 22:06 Dose: 40 mg Bacitracin (Bacitracin Oint) 1 applic TOP BID [facility] Last Admin: 04/17/17 17:00 Dose: 1 applic Enoxaparin Sodium (Lovenox) 40 mg SC DAILY [facility] PRN Reason: Protocol Last Admin: 04/18/17 18:24 Dose: 40 mg Glipizide (Glucotrol Xl) 10 mg PO BRKDIN [facility] Last Admin: 04/19/17 08:49 Dose: 10 mg Valproate Sodium 500 mg/ (Sodium Chloride) 105 mls @ 105 mls/hr IVPB Q12 [facility] PRN Reason: As Directed Last Admin: 04/19/17 08:48 Dose: 105 mls/hr Dextrose/Sodium Chloride (Dextrose 5%/0.45% Ns 1000 Ml) 1,000 mls @ 60 mls/hr IV .[id number] [facility] Stop: 04/19/17 16:19 Last Admin: 04/18/17 17:06 Dose: 60 mls/hr Influenza Virus Vaccine (Afluria (Pf)(18yr & Older)) 0.5 ml IM .ONCE ONE Stop: 04/19/17 08:55 Insulin Detemir (Levemir) [address] [facility] Last Admin: 04/18/17 22:03 Dose: 20 u Insulin Human Regular (Humulin R) 0 units SC ACHS [facility] PRN Reason: Protocol Last Admin: 04/19/17 08:00 Dose: Not Given Repaglinide (Prandin) 1 mg PO TID [facility] Last Admin: 04/19/17 08:50 Dose: 1 mg Sitagliptin Phosphate (Januvia) 50 mg PO BID [facility] Last Admin: 04/19/17 08:50 Dose: 50 mg - Labs Labs: 04/19/17 04:30 04/19/17 04:30 PT 9.7 Seconds (9.8-13.1) L 04/12/17 21:15 INR 0.9 (0.9-1.2) 04/12/17 21:15 APTT 26.0 Seconds (25.6-37.1) 04/12/17 21:15 - Constitutional Appears: Well, Non-toxic, No Acute Distress - Extremities Exam Additional comments: LE focused exam: Vasc: DP and PT weakly palpable, CFT delayed x 10 digits, temperature WNL, no edema noted b/l Ortho: no pain with palpation to the plantar callosities Neuro: Epicritic and protective sensation grossly intact b/l Derm: Hyperkeratotic lesions noted to the plantar halluces bilaterally. Superficial ulceration noted to left and right distal hallux no fluctuatance, no crepitus, no erythema, no streaking, no purulence, no probe to bone, no drainage noted. Wounds healing well at this time - Psychiatric Exam Psychiatric exam: Normal Affect, Normal Mood Assessment and Plan - Assessment and Plan (Free Text) Assessment: 72 y.o female with PMH DM, HTN, HLD, and CAD consulted for bilateral hallux ulcerations Plan: Patient seen and evaluated at bedside Plan discussed with attending Dr. Patterson Afebrile, absent leukocytosis Arterial duplex: Normal flow b/l Wounds dressed with bacitracin, DSD Multipodus boots ordered to be worn b/l at all times while patient is in bed No plan for surgical intervention at this time Podiatry will continue to follow while patient in house
--- NOTE | 2017-04-19 10:32 | RAD ---
PROCEDURE: CHEST RADIOGRAPH, 1 VIEW HISTORY: Post NG tube placement COMPARISON: Comparison is made with 04/16/2017 FINDINGS: LUNGS: No significant interval change in the lungs noted since the previous exam. PLEURA: No pneumothorax or pleural fluid seen. CARDIOVASCULAR: Normal. OSSEOUS STRUCTURES: No significant abnormalities. VISUALIZED UPPER ABDOMEN: There is NG tube seen extending to the left abdomen indicated appropriate position. OTHER FINDINGS: None. IMPRESSION: Appropriate position of the NG tube seen extending to the left abdomen. Otherwise no interval change
--- NOTE | 2017-04-19 14:00 | CP.CCUPN ---
CCU Subjective - Physician Review Events Since Last Encounter (Free Text): 04/19/17 13:56 The patient was Seen/interviewed and examined by me at the bedside during ICU round, Medical records reviewed and Management issues were discussed and formulated with the house staff. Events reviewed 72 Years old Female with past medical history of HTN, diabetes, high cholesterol , CAD and bilateral hallux ulceration. Who was brought in via EMS to ER on 04/12 for evaluation of altered mental status , onset a few months ago. Patient's reports that her mental status has been worsening for the last few months, but has become acute worse since yesterday. He was admitted to the telemetry with acute cerebral vascular accident 04/17, Patient developed Worsening Change in mental status/ Left upper extremity weakness, code stroke was called and was transferred to ICU. Last night was able to place the NG tube, all medications resumed Pt less drowsy today, follows some commands Denies any chest pain, SOB or Palpitations Pt resumed on Eliquis 2.5 mg BID for history of DVT, Lovenox discontinued Head CT 04/12/17: Negative for hemorrhagic and ischemic stroke MRI brain 04/13/17: Bilateral white matter Infarct Carotid US 04/13/17: < 50% stenosis bilateral Head & Neck CTA 04/14/17: Unremarkable CTA of Brain Head CT 04/15/17: Small Acute infarct at right posterior Superior Vo Radiata/ Centrum Semi ovale MRI Brain 04/15/17: Acute /Subacute right vo Radiata and Centrum Semi Ovale infarcts CCU Objective - Vital Signs / Intake & Output Vital Signs (Last 4 hours): Vital Signs Temp Pulse Resp BP Pulse Ox 04/19/17 12:00 98.1 F 77 16 159/78 H 91 L 04/19/17 10:00 75 18 170/75 H 92 L Intake and Output (Last 8hrs): Intake & Output 04/18/17 04/19/17 04/19/17 22:59 06:59 14:59 Intake Total 200 120 Balance 200 120 Intake: IV 200 120 Other: # Bowel Movements 2 - Medications Active Medications: Active Medications Generic Name Dose Route Start Last Admin Trade Name Freq PRN Reason Stop Dose Admin Acetaminophen 650 mg 04/15/17 23:34 04/15/17 23:58 Tylenol 325mg Tab PO 650 mg Q6 PRN Administration fever > 100.4 Apixaban 2.5 mg 04/17/17 17:00 04/19/17 08:49 Eliquis PO 2.5 mg BID [facility] Administration Protocol Aspirin 81 mg 04/19/17 11:45 Ecotrin PO DAILY [facility] Atorvastatin Calcium 40 mg 04/13/17 22:00 04/18/17 22:06 Lipitor PO 40 mg HS [facility] Administration Bacitracin 1 applic 04/16/17 09:00 04/17/17 17:00 Bacitracin Oint TOP 1 applic BID [facility] Administration Enalapril Maleate 2.5 mg 04/19/17 17:00 Vasotec PO BID [facility] Glipizide 10 mg 04/14/17 08:00 04/19/17 08:49 Glucotrol Xl PO 10 mg BRKDIN [facility] Administration Valproate Sodium 500 mg/ 105 mls @ 105 mls/hr 04/17/17 21:00 04/19/17 08:48 Sodium Chloride IVPB 105 mls/hr Q12 [facility] Administration As Directed Dextrose/Sodium Chloride 1,000 mls @ 60 mls/hr 04/18/17 16:30 04/18/17 17:06 Dextrose 5%/0.45% Ns 1000 Ml IV 04/19/17 16:19 60 mls/hr .[id number] [facility] Administration Insulin Detemir 20 units 04/15/17 16:43 04/18/17 22:03 Levemir SC 20 u HS [facility] Administration Insulin Human Regular 0 units 04/13/17 07:30 04/19/17 11:55 Humulin R SC Not Given ACHS [facility] Protocol Repaglinide 1 mg 04/14/17 09:00 04/19/17 08:50 Prandin PO 1 mg TID [facility] Administration Sitagliptin Phosphate 50 mg 04/14/17 09:00 04/19/17 08:50 Januvia PO 50 mg BID [facility] Administration - Patient Studies Lab Studies: Microbiology Studies 04/15/17 06:14 Blood Culture - Preliminary Blood-Venous NO GROWTH AFTER 3 DAYS 04/15/17 06:14 Blood Culture - Preliminary Blood-Venous NO GROWTH AFTER 3 DAYS 04/16/17 08:25 MRSA Culture (Admit) - Final Naris MRSA NOT DETECTED Lab Studies 04/19/17 04/19/17 04/19/17 Range/Units 11:11 04:30 04:30 WBC 4.2 L (4.8-10.8) K/uL RBC 4.31 (3.80-5.20) Mil/uL Hgb 12.4 (12.0-16.0) g/dL Hct 38.5 (34.0-47.0) % MCV 89.3 (81.0-99.0) fl MCH 28.7 (27.0-31.0) pg MCHC 32.1 L (33.0-37.0) g/dL RDW 14.6 H (11.5-14.5) % Plt Count 196 (130-400) K/uL Sodium 143 (132-148) mmol/l Potassium 3.6 (3.6-5.0) MMOL/L Chloride 105 (98-107) mmol/L Carbon Dioxide 29 (22-30) mmol/L Anion Gap 13 (10-20) BUN 12 (7-17) mg/dl Creatinine 0.5 L (0.7-1.2) mg/dl Est GFR ( Amer) > 60 Est GFR (Non-Af Amer) > 60 POC Glucose (mg/dL) 148 H (65-110) mg/dL Random Glucose 191 H (65-105) mg/dL Calcium 8.5 (8.4-10.2) mg/dL Valproic Acid (50.0-100.0) ug/mL 04/19/17 04/18/17 04/18/17 Range/Units 04:30 22:02 16:41 WBC (4.8-10.8) K/uL RBC (3.80-5.20) Mil/uL Hgb (12.0-16.0) g/dL Hct (34.0-47.0) % MCV (81.0-99.0) fl MCH (27.0-31.0) pg MCHC (33.0-37.0) g/dL RDW (11.5-14.5) % Plt Count (130-400) K/uL Sodium (132-148) mmol/l Potassium (3.6-5.0) MMOL/L Chloride (98-107) mmol/L Carbon Dioxide (22-30) mmol/L Anion Gap (10-20) BUN (7-17) mg/dl Creatinine (0.7-1.2) mg/dl Est GFR ( Amer) Est GFR (Non-Af Amer) POC Glucose (mg/dL) 194 H 151 H (65-110) mg/dL Random Glucose (65-105) mg/dL Calcium (8.4-10.2) mg/dL Valproic Acid 57.6 (50.0-100.0) ug/mL Laboratory Results - last 24 hr 04/18/17 04/18/17 04/19/17 16:41 22:02 04:30 WBC RBC Hgb Hct MCV MCH MCHC RDW Plt Count Sodium Potassium Chloride Carbon Dioxide Anion Gap BUN Creatinine Est GFR ( Amer) Est GFR (Non-Af Amer) POC Glucose (mg/dL) 151 H 194 H Random Glucose Calcium Valproic Acid 57.6 04/19/17 04/19/17 04/19/17 04:30 04:30 11:11 WBC 4.2 L RBC 4.31 Hgb 12.4 Hct 38.5 MCV 89.3 MCH 28.7 MCHC 32.1 L RDW 14.6 H Plt Count 196 Sodium 143 Potassium 3.6 Chloride 105 Carbon Dioxide 29 Anion Gap 13 BUN 12 Creatinine 0.5 L Est GFR ( Amer) > 60 Est GFR (Non-Af Amer) > 60 POC Glucose (mg/dL) 148 H Random Glucose 191 H Calcium 8.5 Valproic Acid Fingerstick Blood Sugar Results: 148 Critical Care Progress Note - Nutrition Nutrition: Nutrition Category Date Time Status NPO Diet [DIET] Diets 04/18/17 Breakfast Active Assessment/Plan (1) CVA (cerebral vascular accident) Current Visit: Yes Status: Acute Priority: High (2) Dyslipidemia Current Visit: Yes Status: Acute (3) Hypertension Current Visit: Yes Status: Acute (4) Type 2 diabetes mellitus with pressure callus Current Visit: Yes Status: Acute - Assessment and Plan (Free Text) Assessment: - Acute stroke - Keep NPO< start NG tube feeding - Some neurological improvement - Continue with ICU for frequent neuro checks - Neurology Consult appreciated - Continue aspirin - Continue Lipitor 40 mg daily - Echocardiogram with bubble study (normal biventricular function, trace TR, mild/mod pulmonary hypertension, PA systolic pressure 43, EF 60-65%) - Carotid Doppler (less thsn 50% stenosis bilaterally) - Continue accuchecks, RISS coverage - Maintain fall and aspiration precaution - Tylenol PRN for fever - Imperic Anx coverage - DVT: Eliquis 2.5 mh PO BID
--- NOTE | 2017-04-19 14:05 | CP.PCM.PN ---
Subjective - Date & Time of Evaluation Date of Evaluation: 04/19/17 Time of Evaluation: 12:30 - Subjective Subjective: No fever today lethargic however opens eyes to verbal stimuli - moved her extremities when I asked her to BP noted to be elevated NGT in place Objective - Vital Signs/Intake and Output Vital Signs (last 24 hours): Temp Pulse Resp BP Pulse Ox 98.1 F 77 16 159/78 H 91 L 04/19/17 12:00 04/19/17 12:00 04/19/17 12:00 04/19/17 12:00 04/19/17 12:00 Intake and Output: 04/19/17 04/19/17 06:59 18:59 Intake Total 120 Balance 120 - Medications Medications: Current Medications Acetaminophen (Tylenol 325mg Tab) 650 mg PO Q6 PRN PRN Reason: fever > 100.4 Last Admin: 04/15/17 23:58 Dose: 650 mg Apixaban (Eliquis) 2.5 mg PO BID [facility] PRN Reason: Protocol Last Admin: 04/19/17 08:49 Dose: 2.5 mg Aspirin (Ecotrin) 81 mg PO DAILY [facility] Atorvastatin Calcium (Lipitor) 40 mg PO HS [facility] Last Admin: 04/18/17 22:06 Dose: 40 mg Bacitracin (Bacitracin Oint) 1 applic TOP BID [facility] Last Admin: 04/17/17 17:00 Dose: 1 applic Enalapril Maleate (Vasotec) 2.5 mg PO BID [facility] Glipizide (Glucotrol Xl) 10 mg PO BRKDIN [facility] Last Admin: 04/19/17 08:49 Dose: 10 mg Valproate Sodium 500 mg/ (Sodium Chloride) 105 mls @ 105 mls/hr IVPB Q12 [facility] PRN Reason: As Directed Last Admin: 04/19/17 08:48 Dose: 105 mls/hr Dextrose/Sodium Chloride (Dextrose 5%/0.45% Ns 1000 Ml) 1,000 mls @ 60 mls/hr IV .[id number] [facility] Stop: 04/19/17 16:19 Last Admin: 04/18/17 17:06 Dose: 60 mls/hr Insulin Detemir (Levemir) 20 units SC [facility] Last Admin: 04/18/17 22:03 Dose: 20 u Insulin Human Regular (Humulin R) 0 units SC [facility] PRN Reason: Protocol Last Admin: 04/19/17 11:55 Dose: Not Given Repaglinide (Prandin) 1 mg PO TID [facility] Last Admin: 04/19/17 08:50 Dose: 1 mg Sitagliptin Phosphate (Januvia) 50 mg PO BID [facility] Last Admin: 04/19/17 08:50 Dose: 50 mg - Labs Labs: 04/19/17 04:30 04/19/17 04:30 PT 9.7 Seconds (9.8-13.1) L 04/12/17 21:15 INR 0.9 (0.9-1.2) 04/12/17 21:15 APTT 26.0 Seconds (25.6-37.1) 04/12/17 21:15 - Constitutional Appears: No Acute Distress, Older Than Stated Age, Chronically Ill - Head Exam Head Exam: NORMAL INSPECTION, NORMOCEPHALIC - Eye Exam Eye Exam: EOMI, Normal appearance Pupil Exam: NORMAL ACCOMODATION - ENT Exam ENT Exam: Mucous Membranes Dry, Normal External Ear Exam - Neck Exam Neck Exam: Full ROM. absent: Meningismus - Respiratory Exam Respiratory Exam: NORMAL BREATHING PATTERN. absent: Respiratory Distress - Cardiovascular Exam Cardiovascular Exam: REGULAR RHYTHM, +S1, +S2 - GI/Abdominal Exam GI & Abdominal Exam: Soft, Normal Bowel Sounds. absent: Tenderness - Extremities Exam Extremities Exam: Normal Capillary Refill. absent: Calf Tenderness, Pedal Edema - Back Exam Back Exam: absent: CVA tenderness (L), CVA tenderness (R) - Neurological Exam Additional comments: lethargic noted to move extremities accdg to 1:1 staff - pt was able to say " Agua" this morning follows simple commands but not consistent opened her eyes when I spoke to her however no verbal response Assessment and Plan - Assessment and Plan (Free Text) Assessment: 72 y/o F PMH DM, HTN, HLD brought to the ED with acutely worsening altered mental status though it has been progressively worsening over the past few months; she has been speaking less since yesterday.Patient's was recently hospitalized and was unable to take care of his , and she has not been eating well, or taking her medications. CT head was neg for acute CVA or bleed. Patient glucose elevated 563, HD stable. MRI head showed acute stroke in right frontal lobe white matter Patient presented with left facial droop and and some expressive aphasia. Neuro consulted and patient admitted to telemetry.She was started on ASA, Statin , plavix,lovenox , Insulin and IVF for glycemic control.Her BP initially was kept elevated to allow permissive hypertension. 2/2 While in telemetry patient developed worsening BAILON and some left arm weakness so Depakote and magnesium Iv were given . Patient became more confused , agitated , restless ,not following any commands. She also started to have fever. Repeat MRI of the Brain : showed acute/ subcute stroke in right mcleod radiata and centrum ovale She was then transferred to ICU for close monitoring She continued to to spike fevers for > 48 hours with no obvious source of infection and normal WBC count. All work up sent including CXR. UA, bloodCx. No antibiotics were started as no clear of the source. 04/[address] of head : stable CVA At present in ICU , with episodes of agitation and restlessness overnight , on 1:1 for safety. Lethargic at present however follows simple commands ( haldol and Ativan was given for agitation). 1. AMS Could be combination of worsening of stroke, delirium in an elderly patient with possible dementia (as per patient is on dementia medication ),sun downing ?, medication side effect ? Work up for infection negative so far Repeat MRI showed right mcleod radiata and semiovale stroke ( new findings). Repeat CT head 04/17 showed no worsening stroke Continue ICU monitoring cont Depakote IV for mood stabilizer on 1: 1 for safety 2. Fever unclear etiology possible central ? Procalcitonin is low CXR - no infiltrate WBC 5 K, influenza negative, C.diff negative blood cx with no growth Echo - no vegetations urine cx showed multiple species . Will repeat culture Tylenol PRN for Now no need for antibiotics at present 3. Acute ischemic stroke worsening mental status Repeat MRI 04/15 showed new findings with right mcleod radiata and centrum semiovale stroke Repeat CT head 04/17 showed Stable appearance of acute/subacute right mcleod radiata/ centrum semiovale and subacute small left mcleod radiata/centrum semiovale infarctions. No significant interval change. Keep NPO Continue neuro checks Neuro following ,Dr. Alberts Continue ASA, statin, glycemic control, off Plavix Tylenol PRN for fever cont Eliquis for anticoagulation cont Depakote for mood stabilizer. Cardio consulted for possible TE. Dr. Lockhart - Patient at present is very lethargic and at high risk for being intubated and unable to be extubated continue current management BP slightly elevated . Allow permissive hypertension . will d iscuss with neuro timing for starting antihypertensives 4 .Uncontrolled DM Continue accuchecks, insulin coverage keep npo for now on IVF Levemir to 20 units q hs Hgb A1c 16 5. Hypertension permissive hypertension for now 6. Dyslipidemia c/w Atorvastatin 40 mg PO 7. Diabetic foot calluses podiatry consulted and following Doppler US of LE - good arterial flow 8. Hypokalemia Replace with KCl runs 9.DVT ppx d/c lovenox started eliquis
[2017-04-19] MEDS: Insulin Detemir 100 Units/ml Inj SC SCH (21:20)
[2017-04-20] MEDS: Dextrose 5%/0.45% NS 1,000 ML IV SCH (00:35)
[2017-04-20 05:24] LABS: HEMOGLOBIN 12.2 g/dL (12.0-16.0); MEAN CELL VOLUME 88.2 fl (81.0-99.0); MEAN CORPUSCULAR HGB CONC 31.7 g/dL (33.0-37.0); RBC 4.37 Mil/uL (3.80-5.20); RED CELL DISTRIBUTION WIDTH 14.6 % (11.5-14.5); WHITE BLOOD COUNT 4.8 K/uL (4.8-10.8)
[2017-04-20 05:55] LABS: BLOOD UREA NITROGEN 8 mg/dl (7-17); CALCIUM 8.6 mg/dL (8.4-10.2); GFR AFRICAN-AMERICAN > 60; GFR NON-AFRICAN AMERICAN > 60
[2017-04-20] MEDS: Insulin Regular 100 units/ml SC SCH ×4 (06:42→21:31)
[2017-04-20] MEDS: Valproate 500 MG in Sodium Chloride 0.9% 100 ML IVPB SCH ×2 (08:28→21:27)
[2017-04-20] MEDS: GlipiZIDE 10 mg SR Tab PO SCH ×2 (08:29→16:55)
[2017-04-20] MEDS ORDERED: Potassium Chloride 20 mEq/15 ml LIQ UD NG ONE (08:36)
--- NOTE | 2017-04-20 09:08 | CP.PCM.PN ---
Subjective - Date & Time of Evaluation Date of Evaluation: 04/20/17 Time of Evaluation: 09:04 - Subjective Subjective: Ms. Black was seen and examined at the bedside in ICU. She is lethargic, but responsive to tactile stimuli, able to follow simple commands such as opening her eyes, raising her upper and lower extremities, squeezing her hands. She has the episodes of restlessness, but able to follow commands in yi.She has NGT for feeding and medication purposes. She remains on 1:1 sitter for patient safety. Objective - Vital Signs/Intake and Output Vital Signs (last 24 hours): Temp Pulse Resp BP Pulse Ox 98.7 F 116 H 32 H 165/80 H 99 04/20/17 08:00 04/20/17 08:00 04/20/17 08:00 04/20/17 08:00 04/20/17 08:00 Intake and Output: 04/20/17 04/20/17 06:59 18:59 Intake Total 920 Output Total 10 Balance 910 - Medications Medications: Current Medications Acetaminophen (Tylenol 325mg Tab) 650 mg PO Q6 PRN PRN Reason: fever > 100.4 Last Admin: 04/15/17 23:58 Dose: 650 mg Apixaban (Eliquis) 2.5 mg PO BID [facility] PRN Reason: Protocol Last Admin: 04/20/17 08:28 Dose: 2.5 mg Aspirin (Aspirin Chewable) 81 mg PO DAILY [facility] Last Admin: 04/20/17 08:29 Dose: 81 mg Atorvastatin Calcium (Lipitor) 40 mg PO HS [facility] Last Admin: 04/19/17 21:18 Dose: 40 mg Bacitracin (Bacitracin Oint) 1 applic TOP BID [facility] Last Admin: 04/17/17 17:00 Dose: 1 applic Enalapril Maleate (Vasotec) 2.5 mg PO BID [facility] Last Admin: 04/20/17 08:28 Dose: 2.5 mg Glipizide (Glucotrol Xl) 10 mg PO BRKDIN [facility] Last Admin: 04/20/17 08:29 Dose: 10 mg Valproate Sodium 500 mg/ (Sodium Chloride) 105 mls @ 105 mls/hr IVPB Q12 [facility] PRN Reason: As Directed Last Admin: 04/20/17 08:28 Dose: 105 mls/hr Insulin Detemir (Levemir) 20 units SC [facility] Last Admin: 04/19/17 21:20 Dose: 20 u Insulin Human Regular (Humulin R) 0 units SC [facility] PRN Reason: Protocol Last Admin: 04/20/17 06:42 Dose: Not Given Repaglinide (Prandin) 1 mg PO TID [facility] Last Admin: 04/20/17 08:28 Dose: 1 mg Sitagliptin Phosphate (Januvia) 50 mg PO BID [facility] Last Admin: 04/20/17 08:29 Dose: 50 mg - Labs Labs: 04/20/17 04:15 04/20/17 04:15 PT 9.7 Seconds (9.8-13.1) L 04/12/17 21:15 INR 0.9 (0.9-1.2) 04/12/17 21:15 APTT 26.0 Seconds (25.6-37.1) 04/12/17 21:15 - Constitutional Appears: No Acute Distress - Head Exam Head Exam: NORMAL INSPECTION - Neurological Exam Neuro motor strength exam: Left Upper Extremity: 5, Right Upper Extremity: 4, Left Lower Extremity: 5, Right Lower Extremity: 4 Additional comments: She is lethargic but able to follow simple commands. Sensation is intact. Assessment and Plan (1) CVA (cerebral vascular accident) Assessment & Plan: Case discussed with Dr. Lyons, continue all current medical regimen. Recommend repeat CT of the head due to her current mental status. Status: Acute
[2017-04-20] MEDS: Bacitracin OINT 15GM TOP SCH ×2 (09:30→16:56)
--- NOTE | 2017-04-20 11:31 | CT ---
PROCEDURE: CT HEAD WITHOUT CONTRAST. HISTORY: cva COMPARISON: Comparison is made to the previous study dated 04/17/2017 TECHNIQUE: Axial computed tomography images were obtained through the head/brain without intravenous contrast. Radiation dose: Total exam DLP = 1107.56 mGy-cm. This CT exam was performed using one or more of the following dose reduction techniques: Automated exposure control, adjustment of the mA and/or kV according to patient size, and/or use of iterative reconstruction technique. FINDINGS: HEMORRHAGE: No intracranial hemorrhage. BRAIN: Focal low attenuation at the right frontal lobe right coronal radiata/ centrum semiovale again noted at these larger and more conspicuous compared to the previous exam and suggestive of subacute right MCA territory infarction. Mild atrophy and mild chronic microvascular white matter ischemic disease. VENTRICLES: The lateral ventricles are mildly dilated out of proportion of the dilated sulci suggestive of possible mild hydrocephalus. CALVARIUM: Unremarkable. PARANASAL SINUSES: Unremarkable as visualized. No significant inflammatory changes. MASTOID AIR CELLS: Unremarkable as visualized. No inflammatory changes. OTHER FINDINGS: None. IMPRESSION: No evidence of acute intracranial hemorrhage. Re- demonstration of right coronal radiata centrum semiovale subacute infarction which appears slightly larger and more conspicuous compared to the previous exam likely due to associate edema. Otherwise no seen interval change.
--- NOTE | 2017-04-20 11:51 | CP.PCM.PN ---
Subjective - Date & Time of Evaluation Date of Evaluation: 04/20/17 Time of Evaluation: 11:15 - Subjective Subjective: No fever at present- afebrile x 3 days Pt is lethargic as she just received Ativan - she was sedated as she is going down for rpt CT of Head - per RN was sl agitated and was trying to get up and wanted to take off her NGT opens eyes to verbal stimuli Per 1:1 staff - pt was awake earlier and was following simple commands NGT in place , tolerating tube feeding Objective - Vital Signs/Intake and Output Vital Signs (last 24 hours): Temp Pulse Resp BP Pulse Ox 98.7 F 114 H 28 H 158/95 H 97 04/20/17 08:00 04/20/17 09:32 04/20/17 09:32 04/20/17 09:32 04/20/17 09:32 Intake and Output: 04/20/17 04/20/17 06:59 18:59 Intake Total 920 Output Total 10 Balance 910 - Medications Medications: Current Medications Acetaminophen (Tylenol 325mg Tab) 650 mg PO Q6 PRN PRN Reason: fever > 100.4 Last Admin: 04/15/17 23:58 Dose: 650 mg Apixaban (Eliquis) 2.5 mg PO BID [facility] PRN Reason: Protocol Last Admin: 04/20/17 08:28 Dose: 2.5 mg Aspirin (Aspirin Chewable) 81 mg PO DAILY [facility] Last Admin: 04/20/17 08:29 Dose: 81 mg Atorvastatin Calcium (Lipitor) 40 mg PO HS [facility] Last Admin: 04/19/17 21:18 Dose: 40 mg Bacitracin (Bacitracin Oint) 1 applic TOP BID [facility] Last Admin: 04/20/17 09:30 Dose: 1 applic Enalapril Maleate (Vasotec) 2.5 mg PO BID [facility] Last Admin: 04/20/17 08:28 Dose: 2.5 mg Glipizide (Glucotrol Xl) 10 mg PO BRKDIN [facility] Last Admin: 04/20/17 08:29 Dose: 10 mg Valproate Sodium 500 mg/ (Sodium Chloride) 105 mls @ 105 mls/hr IVPB Q12 [facility] PRN Reason: As Directed Last Admin: 04/20/17 08:28 Dose: 105 mls/hr Insulin Detemir (Levemir) 20 units SC [facility] Last Admin: 04/19/17 21:20 Dose: 20 u Insulin Human Regular (Humulin R) 0 units SC [facility] PRN Reason: Protocol Last Admin: 04/20/17 06:42 Dose: Not Given Repaglinide (Prandin) 1 mg PO TID [facility] Last Admin: 04/20/17 08:28 Dose: 1 mg Sitagliptin Phosphate (Januvia) 50 mg PO BID [facility] Last Admin: 04/20/17 08:29 Dose: 50 mg - Labs Labs: 04/20/17 04:15 04/20/17 04:15 PT 9.7 Seconds (9.8-13.1) L 04/12/17 21:15 INR 0.9 (0.9-1.2) 04/12/17 21:15 APTT 26.0 Seconds (25.6-37.1) 04/12/17 21:15 - Constitutional Appears: No Acute Distress, Older Than Stated Age, Chronically Ill - Head Exam Head Exam: NORMAL INSPECTION, NORMOCEPHALIC - Eye Exam Eye Exam: EOMI, Normal appearance Pupil Exam: NORMAL ACCOMODATION - ENT Exam ENT Exam: Mucous Membranes Dry, Normal External Ear Exam - Neck Exam Neck Exam: Full ROM. absent: Meningismus - Respiratory Exam Respiratory Exam: NORMAL BREATHING PATTERN. absent: Respiratory Distress - Cardiovascular Exam Cardiovascular Exam: REGULAR RHYTHM, +S1, +S2 - GI/Abdominal Exam GI & Abdominal Exam: Soft, Normal Bowel Sounds. absent: Tenderness - Extremities Exam Extremities Exam: Normal Capillary Refill. absent: Calf Tenderness, Pedal Edema - Back Exam Back Exam: absent: CVA tenderness (L), CVA tenderness (R) - Neurological Exam Lethargic - pt was just given Ativan ( sedated prior to Head CT) opens eyes to verbal stimuli Assessment and Plan - Assessment and Plan (Free Text) Assessment: 72 y/o F PMH DM, HTN, HLD brought to the ED with acutely worsening alteration of mental status , though pt had some baseline dementia for the past few months; she was noted to be speaking less . Patient's was recently hospitalized and was unable to take care of his , and she has not been eating well, nor taking her medications. CT head was neg for acute CVA or bleed. Patient glucose cherie elevated 563. MRI head showed acute stroke in right frontal lobe white matter Patient presented with left facial droop and and some expressive aphasia. Neuro consulted and patient admitted to telemetry.She was started on ASA, Statin , plavix,lovenox , Insulin and IVF for glycemic control.Her BP initially was kept elevated to allow permissive hypertension. 2/ While in telemetry , the patient developed worsening BAILON and some left arm weakness. Patient became confused , agitated , restless ,not following any commands. She also started to have fever. Repeat MRI of the Brain : showed acute/ subcute stroke in right mcleod radiata and centrum ovale She was then transferred to ICU for close monitoring She continued to to spike fevers for > 48 hours with no obvious source of infection and normal WBC count. All work up sent including CXR. UA, bloodCx. No antibiotics were started as no clear of the source. 04/[address] of head : stable CVA At present in ICU , with episodes of agitation and restlessness kadeem at night , on 1:1 for safety. Lethargic at present however follows simple commands. 1. AMS Could be combination of worsening of stroke, delirium in an elderly patient with possible dementia (as per patient is on dementia medication ),sun downing and medication side effect ? Work up for infection negative so far Repeat MRI showed right mcleod radiata and semiovale stroke ( new findings). Repeat CT head 04/17 showed no worsening stroke Continue ICU monitoring cont Depakote IV for mood stabilizer on 1: 1 for safety 2. Fever unclear etiology possible central ? Procalcitonin is low CXR - no infiltrate WBC 5 K, influenza negative, C.diff negative blood cx with no growth Echo - no vegetations urine cx showed multiple species . Will repeat culture Tylenol PRN for Now no need for antibiotics at present 3. Acute ischemic stroke worsening mental status Repeat MRI 04/15 showed new findings with right mcleod radiata and centrum semiovale stroke Repeat CT head 04/17 showed Stable appearance of acute/subacute right mcleod radiata/ centrum semiovale and subacute small left mcleod radiata/centrum semiovale infarctions. No significant interval change. Keep NPO Continue neuro checks Neuro following ,Dr. Alberts Continue ASA, statin, glycemic control, off Plavix Tylenol PRN for fever cont Eliquis for anticoagulation - empirically started by Neuro cont Depakote for mood stabilizer. Cardio consulted for possible JUSTYNA. Dr. Lockhart rec that at present, pt is very lethargic and at high risk for being intubated , he wants to do JUSTYNA when pt more stable and wants to do it in [facility] continue current management BP slightly elevated . Allow permissive hypertension . will discuss with neuro timing for starting antihypertensives 4 .Uncontrolled DM Continue accuchecks, insulin coverage keep npo for now NGT in place for meds and tube feeding Levemir to 20 units q hs Hgb A1c 16 5. Hypertension allow permissive hypertension for now while stroke is evolving 6. Dyslipidemia c/w Atorvastatin 40 mg PO 7. Diabetic foot calluses podiatry consulted and following Doppler US of LE - good arterial flow 8. Hypokalemia Replace with KCl per NG 9.DVT ppx d/c lovenox started eliquis
[2017-04-20] MEDS: Insulin Detemir 100 Units/ml Inj SC SCH (21:32)
[2017-04-21] MEDS ORDERED: Metoprolol 1 mg/ml Inj IVP ONE ×2 (00:53→04:44)
[2017-04-21] MEDS ORDERED: methylPREDNISolone 60 MG in Sodium Chloride 0.9% 50 ML IVPB STA (05:07)
[2017-04-21] MEDS ORDERED: Albuterol-Ipratrop 3 mg / 0.5 (3 ml) UD INH STA (05:07)
[2017-04-21] MEDS ORDERED: DiphenhydrAMINE 50 mg/ml Inj IVP STA ×2 (05:09→05:29)
[2017-04-21] MEDS ORDERED: Albuterol-Ipratrop 3 mg / 0.5 (3 ml) UD INH PRN (05:11)
[2017-04-21] MEDS ORDERED: MethylPREDNISolone 40 mg Vial IVP STA (05:19)
--- NOTE | 2017-04-21 05:34 | PCM.RRT ---
<Chloe Garcia - Last Filed: 04/21/17 05:36> I.Reason for MATHEMATICIAN - A) Acute Change in Patient: Subjective: S: 72 yo F, PMH HTN, HLD, DM2, admitted for CVA. MATHEMATICIAN called due to O2 sat 89% and stridor. O: elderly female, Vitals BP 183/80, HR 102, O2 sat 89%. Audible stridor. Interventions: During the MATHEMATICIAN, pt was placed on BIPAP 14:8, 100% FiO2, respiratory rate was 14. Duobens 3ml inh stat 60mg IV solu-medrol 25 mg IVPB benadryl - condition possibly due to newly started lopressor. ABG O2 sat improved to 93% on BIPAP. Stridor mildly improved after tx. Vitals at end of MATHEMATICIAN: BP 189/83, HR 104, O2 sat 93%. Assessment: 72 yo F, MATHEMATICIAN called due to O2 sat 89% and stridor. Mild improvement in stridor, and improvement from 89% to 93% O2sat. Plan: Repeat duoneb in 30 min Duonebs 3ml Q6 hours Follow up ABG D/c lopressor Pt seen and discussed with hospitalist degreasing solution mixer Dr. Lipscomb, who was present at MATHEMATICIAN. <Spencer Lipscomb - Last Filed: 04/21/17 06:54> MATHEMATICIAN Nurse Assessment - Vital Signs Vital Signs: Rapid Response Vital Sign Blood Pressure 183/80 Pulse Rate 102 Respiratory Rate 30 Oxygen Saturation 88 - Vital Signs at end of MATHEMATICIAN Vital Signs at end of MATHEMATICIAN: Rapid Response End Vital Sign Blood Pressure 189/83 Pulse Rate 104 Respiratory Rate 30 O2 Sat by Pulse Oximetry 92
[2017-04-21 06:02] LABS: HEMOGLOBIN 13.8 g/dL (12.0-16.0); MEAN CELL VOLUME 88.5 fl (81.0-99.0); MEAN CORPUSCULAR HGB CONC 32.7 g/dL (33.0-37.0); RBC 4.78 Mil/uL (3.80-5.20); RED CELL DISTRIBUTION WIDTH 14.7 % (11.5-14.5); WHITE BLOOD COUNT 8.5 K/uL (4.8-10.8)
[2017-04-21] MEDS ORDERED: Albuterol-Ipratrop 3 mg / 0.5 (3 ml) UD INH ONE (06:10)
[2017-04-21] MEDS: Insulin Regular 100 units/ml SC SCH ×3 (06:59→21:39)
[2017-04-21 07:48] LABS: BLOOD UREA NITROGEN 14 mg/dl (7-17); CALCIUM 9.1 mg/dL (8.4-10.2); GFR AFRICAN-AMERICAN > 60; GFR NON-AFRICAN AMERICAN > 60; MAGNESIUM 2.1 MG/DL (1.6-2.3)
[2017-04-21 08:02] LABS: ABG ALLEN TEST YES; ARTERIAL BLOOD GAS HCO3 30.8 mmol/L (21-28); ARTERIAL BLOOD GAS HEMOGLOBIN 14.6 g/dL (11.7-17.4); ARTERIAL BLOOD GAS O2 CAPACITY 19.9 mL/dL (16-24); ARTERIAL BLOOD GAS O2 CONTENT 19.1 ML/dL (15-23); ARTERIAL BLOOD GAS PCO2 63 mm/Hg (35-45); ARTERIAL BLOOD GAS PH 7.36 (7.35-7.45); ARTERIAL BLOOD GAS PO2 74 mm/Hg (80-100); ARTERIAL BLOOD GAS TCO2 37.5 mmol/L (22-28)
[2017-04-21] MEDS ORDERED: Propofol 10 mg/ml 1,000 MG/100 ML VIAL ONE (08:37)
--- NOTE | 2017-04-21 08:46 | PCM.ANES ---
Anesthesia Emergent Intubation - Diagnosis Working Diagnosis:: pneumonia - Consult Reason for Consult:: respiratory failure - Intubation Attempts Previous Number of Intubation Attempts:: 0 - Pre-Intubation Vital Signs Blood Pressure: 115/82 Heart Rate: 119 Respiratory Rate: 30 O2 Sat: 95 FIO2: 1 Oxygen Delivery Method: Non-Rebreather Level Of Consciousness: Lethargic - Airway Management Oropharyngeal Area Suctioned: Yes PreOxygenation: 100 Inhalation: No Rapid Sequence: No Cricoid Pressure: Yes Possible Aspiration: No - Method of Intubation Intubation Method: Oral ETT ETT Size: 8 Lipline@: 21 Easy: Yes Atramatic: Yes - Intubation Devices [place] Scope Used: Yes - Placement Confirmation Breath Sounds Present & Equal Bilaterally: Yes Gurgling Sounds Not Audible at Epigastrum: Yes Positive EtCO2: Yes Portable CXR: No (to be ordered by desktop architect) Recommendations: Ventilator, Chest X Ray, ABG - Post-Intubation Vital Signs Blood Pressure: 160/80 Heart Rate: 110 Respiratory Rate: 22 O2 Sat: 100 FIO2: 1
[2017-04-21] MEDS ORDERED: Ciprofloxacin 400mg/200ml D5W 400 MG/200 ML BAG IVPB SCH (09:00)
--- NOTE | 2017-04-21 09:13 | CP.PCM.PN ---
Subjective - Date & Time of Evaluation Date of Evaluation: 04/21/17 Time of Evaluation: 09:10 - Subjective Subjective: Podiatry Progress Note- Dr. Patterson 72 y.o female with PMH DM, HTN, HLD, and CAD consulted for bilateral hallux ulcerations. Patient is sleeping during the time of visitation with 1:1. She is seen resting in bed. Per nursing, FURNACE ATTENDANT was called on patient this morning. Objective - Vital Signs/Intake and Output Vital Signs (last 24 hours): Temp Pulse Resp BP Pulse Ox 97.9 F 119 H 30 H 115/82 95 04/21/17 07:51 04/21/17 08:48 04/21/17 08:48 04/21/17 08:48 04/21/17 08:48 Intake and Output: 04/21/17 04/21/17 06:59 18:59 Intake Total 700 Balance 700 - Medications Medications: Current Medications Acetaminophen (Tylenol 325mg Tab) 650 mg PO Q6 PRN PRN Reason: fever > 100.4 Last Admin: 04/15/17 23:58 Dose: 650 mg Albuterol/Ipratropium (Duoneb 3 Mg/0.5 Mg (3 Ml) Ud) 3 ml INH RQ6 PRN PRN Reason: Shortness of Breath Apixaban (Eliquis) 2.5 mg PO BID [facility] PRN Reason: Protocol Last Admin: 04/20/17 16:55 Dose: 2.5 mg Aspirin (Aspirin Chewable) 81 mg PO DAILY [facility] Last Admin: 04/20/17 08:29 Dose: 81 mg Atorvastatin Calcium (Lipitor) 40 mg PO HS [facility] Last Admin: 04/20/17 21:29 Dose: 40 mg Bacitracin (Bacitracin Oint) 1 applic TOP BID [facility] Last Admin: 04/20/17 16:56 Dose: 1 applic Enalapril Maleate (Vasotec) 2.5 mg PO BID [facility] Last Admin: 04/20/17 16:55 Dose: 2.5 mg Glipizide (Glucotrol Xl) 10 mg PO BRKDIN [facility] Last Admin: 04/20/17 16:55 Dose: 10 mg Valproate Sodium 500 mg/ (Sodium Chloride) 105 mls @ 105 mls/hr IVPB Q12 [facility] PRN Reason: As Directed Last Admin: 04/20/17 21:27 Dose: 105 mls/hr Ciprofloxacin (Cipro 400mg/200ml Dsw) 400 mg in 200 mls @ 200 mls/hr IVPB Q12 [facility] PRN Reason: Protocol Vancomycin HCl 1 gm/ Sodium (Chloride) 250 mls @ 166.667 mls/hr IVPB DAILY [facility] PRN Reason: Protocol Piperacillin Sod/Tazobactam (Sod 3.375 gm/ Sodium Chloride) 100 mls @ 100 mls/ hr IVPB Q6 [facility] PRN Reason: Protocol Insulin Detemir (Levemir) 20 units SC HS [facility] Last Admin: 04/20/17 21:32 Dose: 20 u Insulin Human Regular (Humulin R) 0 units SC ACHS [facility] PRN Reason: Protocol Last Admin: 04/21/17 06:59 Dose: 3 units Repaglinide (Prandin) 1 mg PO TID [facility] Last Admin: 04/20/17 16:56 Dose: 1 mg Sitagliptin Phosphate (Januvia) 50 mg PO BID [facility] Last Admin: 04/20/17 16:56 Dose: 50 mg - Labs Labs: 04/21/17 05:00 04/21/17 05:53 PT 9.7 Seconds (9.8-13.1) L 04/12/17 21:15 INR 0.9 (0.9-1.2) 04/12/17 21:15 APTT 26.0 Seconds (25.6-37.1) 04/12/17 21:15 - Constitutional Appears: Non-toxic, No Acute Distress - Extremities Exam Additional comments: LE focused exam: Vasc: DP and PT weakly palpable, CFT delayed x 10 digits, temperature WNL, no edema noted b/l Ortho: no pain with palpation to the plantar callosities Neuro: Epicritic and protective sensation grossly intact b/l Derm: Hyperkeratotic lesions noted to the plantar halluces bilaterally. Superficial ulceration noted to left and right distal hallux no fluctuatance, no crepitus, no erythema, no streaking, no purulence, no probe to bone, no drainage noted. Wounds considered healed at this time - Neurological Exam Neurological Exam: Awake - Psychiatric Exam Psychiatric exam: Normal Affect, Normal Mood Assessment and Plan - Assessment and Plan (Free Text) Assessment: 72 y.o female with PMH DM, HTN, HLD, and CAD consulted for bilateral hallux ulcerations Plan: Patient seen and evaluated at bedside Plan discussed with attending Dr. Patterson Afebrile, absent leukocytosis Arterial duplex: Normal flow b/l B/l wounds clinically healed at this time No dressings applied to wounds Multipodus boots ordered to be worn b/l at all times while patient is in bed No plan for surgical intervention at this time Podiatry to sign off, please reconsult in future as needed
[2017-04-21] MEDS ORDERED: Sodium Chloride 3% for Inhalation 4 ML VIAL.NEB IH PRN (09:18)
--- NOTE | 2017-04-21 09:23 | CP.PCM.PN ---
Subjective - Date & Time of Evaluation Date of Evaluation: 04/21/17 Time of Evaluation: 08:00 - Subjective Subjective: Patient was seen and evaluated bedside this morning .Currently on BIPAP , lethargic , responding to painful stimuli not following any commands. PUMP OPER[employer] was called overnight for patient having stridors. As per nurses notes ,patient had stridors during the day shift as well. Lopressor was administrated overnight for elevated BP and patient had worsening of stridor treated with Solumedrol , Duonebs and placed on Bipap with some improvement This AM ABG repeated given that patient is very lethargic ,showing worsening PCO2 72 Ph 7.31 while on FIO2 100 % CXR this AM showed aspiration pneumonia . Transferred to ICU and intubated for acute hypercapneic respiratory failure and aspiration pneumonia. With large thick respiratory secretion during intubation Placed on MV PRVC Ac mode 12/500/5/80 % Family called and informed of the change in patient's condition. BP 148/83 HR 111,afebrile Objective - Vital Signs/Intake and Output Vital Signs (last 24 hours): Temp Pulse Resp BP Pulse Ox 97.9 F 119 H 30 H 115/82 95 04/21/17 07:51 04/21/17 08:48 04/21/17 08:48 04/21/17 08:48 04/21/17 08:48 Intake and Output: 04/21/17 04/21/17 06:59 18:59 Intake Total 700 Balance 700 - Medications Medications: Current Medications Acetaminophen (Tylenol 325mg Tab) 650 mg PO Q6 PRN PRN Reason: fever > 100.4 Last Admin: 04/15/17 23:58 Dose: 650 mg Albuterol/Ipratropium (Duoneb 3 Mg/0.5 Mg (3 Ml) Ud) 3 ml INH RQ6 PRN PRN Reason: Shortness of Breath Apixaban (Eliquis) 2.5 mg PO BID [facility] PRN Reason: Protocol Last Admin: 04/20/17 16:55 Dose: 2.5 mg Aspirin (Aspirin Chewable) 81 mg PO DAILY [facility] Last Admin: 04/20/17 08:29 Dose: 81 mg Atorvastatin Calcium (Lipitor) 40 mg PO HS [facility] Last Admin: 04/20/17 21:29 Dose: 40 mg Bacitracin (Bacitracin Oint) 1 applic TOP BID [facility] Last Admin: 04/20/17 16:56 Dose: 1 applic Enalapril Maleate (Vasotec) 2.5 mg PO BID [facility] Last Admin: 04/20/17 16:55 Dose: 2.5 mg Glipizide (Glucotrol Xl) 10 mg PO BRKDIN [facility] Last Admin: 04/20/17 16:55 Dose: 10 mg Valproate Sodium 500 mg/ (Sodium Chloride) 105 mls @ 105 mls/hr IVPB Q12 [facility] PRN Reason: As Directed Last Admin: 04/20/17 21:27 Dose: 105 mls/hr Vancomycin HCl 1 gm/ Sodium (Chloride) 250 mls @ 166.667 mls/hr IVPB DAILY [facility] PRN Reason: Protocol Piperacillin Sod/Tazobactam (Sod 3.375 gm/ Sodium Chloride) 100 mls @ 100 mls/ hr IVPB Q6 [facility] PRN Reason: Protocol Clindamycin Phosphate 300 mg/ (Sodium Chloride) 52 mls @ 52 mls/hr IVPB Q8 [facility] PRN Reason: Protocol Insulin Detemir (Levemir) 20 units SC HS [facility] Last Admin: 04/20/17 21:32 Dose: 20 u Insulin Human Regular (Humulin R) 0 units SC ACHS [facility] PRN Reason: Protocol Last Admin: 04/21/17 06:59 Dose: 3 units Repaglinide (Prandin) 1 mg PO TID [facility] Last Admin: 04/20/17 16:56 Dose: 1 mg Sitagliptin Phosphate (Januvia) 50 mg PO BID [facility] Last Admin: 04/20/17 16:56 Dose: 50 mg - Labs Labs: 04/21/17 05:00 04/21/17 05:53 PT 9.7 Seconds (9.8-13.1) L 04/12/17 21:15 INR 0.9 (0.9-1.2) 04/12/17 21:15 APTT 26.0 Seconds (25.6-37.1) 04/12/17 21:15 - Constitutional Appears: Toxic, In Acute Distress, Chronically Ill, Other (letharfgic , not following commands) - Head Exam Head Exam: ATRAUMATIC, NORMOCEPHALIC - Eye Exam Eye Exam: EOMI, PERRL - ENT Exam ENT Exam: Mucous Membranes Dry - Neck Exam Neck Exam: Full ROM, Normal Inspection - Respiratory Exam Respiratory Exam: absent: Wheezes Additional comments: coarse breath sounds bilaterally - Cardiovascular Exam Cardiovascular Exam: Tachycardia, +S1, +S2. absent: JVD - GI/Abdominal Exam GI & Abdominal Exam: Soft, Normal Bowel Sounds. absent: Distended, Guarding, Tenderness, Rebound - Rectal Exam Rectal Exam: Deferred - Extremities Exam Extremities Exam: Full ROM, Normal Inspection. absent: Calf Tenderness, Pedal Edema - Neurological Exam Additional comments: lethargic responds to painful stimuli moves her 4 extremities does not follow any commands - Skin Skin Exam: Dry, Warm Assessment and Plan - Assessment and Plan (Free Text) Assessment: 72 y/o F PMH DM, HTN, HLD brought to the ED with acutely worsening alteration of mental status , though pt had some baseline dementia for the past few months; she was noted to be speaking less . Patient's was recently hospitalized and was unable to take care of his , and she has not been eating well, nor taking her medications. CT head was neg for acute CVA or bleed. Patient glucose cherie elevated 563. MRI head showed acute stroke in right frontal lobe white matter Patient presented with left facial droop and and some expressive aphasia. Neuro consulted and patient admitted to telemetry.She was started on ASA, Statin , plavix,lovenox , Insulin and IVF for glycemic control.Her BP initially was kept elevated to allow permissive hypertension. 2/2 While in telemetry , the patient developed worsening BAILON and some left arm weakness. Patient became confused , agitated , restless ,not following any commands. She also started to have fever. Repeat MRI of the Brain : showed acute/ subcute stroke in right mcleod radiata and centrum ovale She was then transferred to ICU for close monitoring She continued to spike fevers for > 48 hours with no obvious source of infection and normal WBC count. All work up sent including CXR. UA, bloodCx. No antibiotics were started as no clear of the source. 2/[address] of head : stable CVA She continued developing episodes of agittaion and restlessness requiring 1:1 for safetu and medication sedation PUMP OPER[employer] called overnight for stridor This AM patient transferred to ICU and intubated for lethargy and worsening hypercapnic respiratory failure and pneumonia. 1. Acute hypercapnic respiratory failure Most likely secondary to aspiration pneumonia and patient's inability to handle secretions due to AMS Episode of Stridor noted yesterday that worsened after beta padmini use overnight . Treated with Solumedrol , Duonebs and BIPAP initially Patient unable to tolerate BIPAP , lethragic and with rise in PCO2 72 CXR this AM showed aspiration pneumonia . Transferred to ICU and intubated for acute hypercapneic respiratory failure and aspiration pneumonia. With large thick respiratory secretion during intubation Placed on MV PRVC Ac mode 12/500/5/80 % Sent respiratory Cultures Started Vanco , Zosyn and clindamycin Called pulmonary , ID consult Continue vent management Repeat ABG in 1 hour and AM CXR in AM 2. Acute ischemic stroke worsening mental status, unable to hanle secretions, aspirating , with acute respiratory failure requiring intubation today initial presentation of patient was : acute stroke to right frontal lobe that progressed to right mcleod radiata and centrum semiovale stroke Repeat CT head 04/17 showed Stable appearance of acute/subacute right mcleod radiata/ centrum semiovale and subacute small left mcleod radiata/centrum semiovale infarctions. No significant interval change. Intubated due to acute respiratory failure Neuro following Continue ASA, statin, glycemic control, eliquist ( empirically started by neuro ) Tylenol PRN for fever on Depakote for mood stabilizer. Cardio consulted for possible JUSTYNA but patient high risk for intubation so patient was started empirically on Eliquist Start BP control Feeding 3. AMS Could be combination of worsening of stroke, delirium in an elderly patient with possible dementia (as per patient is on dementia medication ),sun downing and medication side effect ? Work up for infection negative so far Repeat MRI showed right mcleod radiata and semiovale stroke ( new findings). Repeat CT head 04/17 showed no worsening stroke on Depakote IV for mood stabilizer At present with aspiration Pneumonia on CXR requrinig antibiotic coverage 4. Fever unclear etiology possible central ? Procalcitonin is low CXR - no infiltrate WBC 5 K, influenza negative, C.diff negative blood cx with no growth Echo - no vegetations urine cx showed multiple species Tylenol PRN for Now Started antibiotics today since patient developed aspiration pneumonia. Repeat cultures 5 .Uncontrolled DM Continue accuchecks, insulin coverage keep npo for now NGT in place for meds and tube feeding Levemir to 20 units q hs Hgb A1c 16 6. Hypertension allow permissive hypertension for now while stroke is evolving Start Bp meds low dose 7. Dyslipidemia c/w Atorvastatin 40 mg PO 8. Diabetic foot calluses podiatry consulted and following Doppler US of LE - good arterial flow 9. Hypokalemia Replace with KCl 10.DVT ppx d/c lovenox on eliquis
[2017-04-21] MEDS ORDERED: Clindamycin in NS 300 MG/50 ML BAG IVPB SCH (09:30)
[2017-04-21] MEDS: Valproate 500 MG in Sodium Chloride 0.9% 100 ML IVPB SCH ×2 (10:00→20:00)
--- NOTE | 2017-04-21 10:18 | CP.PCM.PN ---
Subjective - Date & Time of Evaluation Date of Evaluation: 04/21/17 Time of Evaluation: 10:11 - Subjective Subjective: Ms. Black was seen and examined at the bedside. She is responsive to tactile stimuli. They called an TALENT DEVELOPMENT MANAGER for the patient earlier due to stridor post beta padmini administration. Solumedrol and benadryl was also given. Currently, the patient is intubated on PRVC mode with GCS 4T. She has episode of restlessness with bilateral wrist restraint for patient safety. CT of the head yesterday showed No evidence of acute intracranial hemorrhage. Re-demontration of right croronal radiata centrum semiovale subacute infarction which appears slightly larger and more conspicuous compared to the previous exam likely due to associate edema.Otherwise no interval change noted. Objective - Vital Signs/Intake and Output Vital Signs (last 24 hours): Temp Pulse Resp BP Pulse Ox 97.9 F 119 H 30 H 115/82 95 04/21/17 07:51 04/21/17 08:48 04/21/17 08:48 04/21/17 08:48 04/21/17 08:48 Intake and Output: 04/21/17 04/21/17 06:59 18:59 Intake Total 700 Balance 700 - Medications Medications: Current Medications Acetaminophen (Tylenol 325mg Tab) 650 mg PO Q6 PRN PRN Reason: fever > 100.4 Last Admin: 04/15/17 23:58 Dose: 650 mg Albuterol/Ipratropium (Duoneb 3 Mg/0.5 Mg (3 Ml) Ud) 3 ml INH RQ6 PRN PRN Reason: Shortness of Breath Apixaban (Eliquis) 2.5 mg PO BID [facility] PRN Reason: Protocol Last Admin: 04/20/17 16:55 Dose: 2.5 mg Aspirin (Aspirin Chewable) 81 mg PO DAILY [facility] Last Admin: 04/20/17 08:29 Dose: 81 mg Atorvastatin Calcium (Lipitor) 40 mg PO HS [facility] Last Admin: 04/20/17 21:29 Dose: 40 mg Bacitracin (Bacitracin Oint) 1 applic TOP BID [facility] Last Admin: 04/20/17 16:56 Dose: 1 applic Enalapril Maleate (Vasotec) 2.5 mg PO BID [facility] Last Admin: 04/20/17 16:55 Dose: 2.5 mg Glipizide (Glucotrol Xl) 10 mg PO BRKDIN [facility] Last Admin: 04/20/17 16:55 Dose: 10 mg Valproate Sodium 500 mg/ (Sodium Chloride) 105 mls @ 105 mls/hr IVPB Q12 [facility] PRN Reason: As Directed Last Admin: 04/20/17 21:27 Dose: 105 mls/hr Vancomycin HCl 1 gm/ Sodium (Chloride) 250 mls @ 166.667 mls/hr IVPB DAILY [facility] PRN Reason: Protocol Piperacillin Sod/Tazobactam (Sod 3.375 gm/ Sodium Chloride) 100 mls @ 100 mls/ hr IVPB Q6 [facility] PRN Reason: Protocol Clindamycin in NS (Clindamycin 300 Mg/50 Ml-Ns) 300 mg in 50 mls @ 50 mls/hr IVPB Q8 [facility] PRN Reason: Protocol Insulin Detemir (Levemir) 20 units SC HS [facility] Last Admin: 04/20/17 21:32 Dose: 20 u Insulin Human Regular (Humulin R) 0 units SC ACHS [facility] PRN Reason: Protocol Last Admin: 04/21/17 06:59 Dose: 3 units Repaglinide (Prandin) 1 mg PO TID [facility] Last Admin: 04/20/17 16:56 Dose: 1 mg Sitagliptin Phosphate (Januvia) 50 mg PO BID [facility] Last Admin: 04/20/17 16:56 Dose: 50 mg - Labs Labs: 04/21/17 05:00 04/21/17 05:53 PT 9.7 Seconds (9.8-13.1) L 04/12/17 21:15 INR 0.9 (0.9-1.2) 04/12/17 21:15 APTT 26.0 Seconds (25.6-37.1) 04/12/17 21:15 - Constitutional Appears: No Acute Distress - Head Exam Head Exam: NORMAL INSPECTION - Neurological Exam Neurological Exam: Awake Neuro motor strength exam: Left Upper Extremity: 3, Right Upper Extremity: 3, Left Lower Extremity: 2/1, Right Lower Extremity: 2/1 Additional comments: GCS- 4T. Assessment and Plan (1) CVA (cerebral vascular accident) Assessment & Plan: Case discussed with Dr. Lyons, continue all current medical regimen. There is no new recommendations from neurology. Status: Acute
[2017-04-21] MEDS: Bacitracin OINT 15GM TOP SCH ×2 (10:42→10:43)
[2017-04-21] MEDS: Piperacillin/Tazobact 3.375 GM in Sodium Chloride 0.9% 100 ML IVPB SCH ×3 (10:47→21:37)
--- NOTE | 2017-04-21 11:02 | CP.PCM.CON ---
History of Present Illness - History of Present Illness History of Present Illness: Infcetious Disease Consultation Note- asked to see this patient at the request of Hospitalist for aspiration pneumonia. HPI- History obtained from the medical chart and the hospitalist and the bit tapper as pt. is intubated and sedated. Pt. is a 72 y/o Female with PMH DM, HTN, HLD,who was brought to the ED with acutely worsening altered mental status though it has been progressively worsening over the past few months on 04/13/2017 and was found to have CVA was admitted to the telemetry with acute cerebral vascular accident 04/17, Patient developed Worsening Change in mental status/ Left upper extremity weakness, code stroke was called and was transferred to ICU. has been getting feeds via NGT. has been getting eliquis and and has been seen and f/u by neurologist closely and apparently pt. was doing better and was transferred to step down unit and earlier today TABLE CUT OFF SAW OPERATOR was done for resp distress and stridor and apparently pt. aspirated and is now intubated and in ICU. I'm asked to evaluate and help with antibiotic management. ROS: unable to assess at this time. PMSH: DM, HTN, HLD FH: DENIES SH: denies ETOH, IVDU, Tobacco NKDA Review of Systems - Review of Systems Review of Systems: ROS- unable to obtain as pt. is intubated and sedated. Past Patient History - Past Medical History & Family History Past Medical History?: Yes - Past Social History Smoking Status: Never Smoked Home Situation {Lives}: With Family - CARDIAC Hx Hypercholesterolemia: Yes Hx Hypertension: Yes - PULMONARY Hx Respiratory Disorders: No - NEUROLOGICAL Hx Neurological Disorder: No - HEENT Hx HEENT Problems: No - RENAL Hx Chronic Kidney Disease: No - ENDOCRINE/METABOLIC Hx Diabetes Mellitus Type 2: Yes - HEMATOLOGICAL/ONCOLOGICAL Hx Blood Disorders: No - INTEGUMENTARY Hx Dermatological Problems: Yes Other/Comment: ulcers noted on bilateral great toes - MUSCULOSKELETAL/RHEUMATOLOGICAL Hx Musculoskeletal Disorders: No Hx Falls: No Other/Comment: let foot ulcer - GASTROINTESTINAL Hx Gastrointestinal Disorders: Yes Hx Hemorrhoids: Yes - GENITOURINARY/GYNECOLOGICAL Hx Genitourinary Disorders: No - PSYCHIATRIC Hx Psychophysiologic Disorder: No Hx Substance Use: No - SURGICAL HISTORY Hx Surgeries: No - ANESTHESIA Hx Anesthesia: Yes Hx Anesthesia Reactions: No Hx Malignant Hyperthermia: No Has any member of the family had a problem w/ anesthesia?: No Meds Home Medications: Home Medication List Medication Instructions Recorded Confirmed Type Aspirin [Aspirin Chewable] 81 mg PO DAILY chew 04/15/17 Rx Atorvastatin [Lipitor] 40 mg PO HS tab 04/15/17 Rx Clopidogrel [Plavix] 75 mg PO DAILY tab 04/15/17 Rx Clopidogrel [Plavix] 75 mg PO DAILY #30 tab 04/15/17 Rx Enalapril Maleate [Vasotec] 2.5 mg PO BID tab 04/15/17 Rx Enoxaparin [Lovenox] 40 mg SC DAILY syr 04/15/17 Rx Insulin Detemir [Levemir] 15 units SC HS vial 04/15/17 Rx Insulin Detemir [Levemir] 25 units SC HS #5 vial 04/15/17 Rx Insulin Human Regular [HumuLIN R] 0 units SC ACHS ml 04/15/17 Rx SITagliptin [Januvia] 50 mg PO BID tab 04/15/17 Rx Allergies/Adverse Reactions: Allergies Allergy/AdvReac Type Severity Reaction Status Date / Time No Known Allergies Allergy Verified 04/12/17 20:08 - Medications Medications: Current Medications Acetaminophen (Tylenol 325mg Tab) 650 mg PO Q6 PRN PRN Reason: fever > 100.4 Last Admin: 04/15/17 23:58 Dose: 650 mg Albuterol/Ipratropium (Duoneb 3 Mg/0.5 Mg (3 Ml) Ud) 3 ml INH RQ6 PRN PRN Reason: Shortness of Breath Apixaban (Eliquis) 2.5 mg PO BID [facility] PRN Reason: Protocol Last Admin: 04/21/17 10:00 Dose: 2.5 mg Aspirin (Aspirin Chewable) 81 mg PO DAILY [facility] Last Admin: 04/21/17 10:00 Dose: 81 mg Atorvastatin Calcium (Lipitor) 40 mg PO HS [facility] Last Admin: 04/20/17 21:29 Dose: 40 mg Bacitracin (Bacitracin Oint) 1 applic TOP BID [facility] Last Admin: 04/21/17 10:43 Dose: 1 applic Enalapril Maleate (Vasotec) 2.5 mg PO BID [facility] Last Admin: 04/21/17 10:00 Dose: 2.5 mg Glipizide (Glucotrol Xl) 10 mg PO BRKDIN [facility] Last Admin: 04/20/17 16:55 Dose: 10 mg Valproate Sodium 500 mg/ (Sodium Chloride) 105 mls @ 105 mls/hr IVPB Q12 [facility] PRN Reason: As Directed Last Admin: 04/21/17 10:00 Dose: 105 mls/hr Vancomycin HCl 1 gm/ Sodium (Chloride) 250 mls @ 166.667 mls/hr IVPB DAILY [facility] PRN Reason: Protocol Piperacillin Sod/Tazobactam (Sod 3.375 gm/ Sodium Chloride) 100 mls @ 100 mls/ hr IVPB Q6 [facility] PRN Reason: Protocol Last Admin: 04/21/17 10:47 Dose: 100 mls/hr Clindamycin in NS (Clindamycin 300 Mg/50 Ml-Ns) 300 mg in 50 mls @ 50 mls/hr IVPB Q8 [facility] PRN Reason: Protocol Insulin Detemir (Levemir) 20 units SC HS [facility] Last Admin: 04/20/17 21:32 Dose: 20 u Insulin Human Regular (Humulin R) 0 units SC ACHS [facility] PRN Reason: Protocol Last Admin: 04/21/17 06:59 Dose: 3 units Repaglinide (Prandin) 1 mg PO TID [facility] Last Admin: 04/21/17 10:00 Dose: 1 mg Sitagliptin Phosphate (Januvia) 50 mg PO BID [facility] Last Admin: 04/21/17 10:00 Dose: 50 mg Physical Exam - Constitutional Appears: No Acute Distress Additional comments: Intubated and sedated - Head Exam Head Exam: ATRAUMATIC - ENT Exam Additional comments: ET tube in place - Neck Exam Neck exam: Positive for: Full Rom Additional comments: supple - Respiratory Exam Additional comments: decreased breath sounds at right base - Cardiovascular Exam Cardiovascular Exam: RRR, +S1, +S2 - GI/Abdominal Exam GI & Abdominal Exam: Normal Bowel Sounds, Soft Additional comments: ND, NT - Extremities Exam Additional comments: no edema b/l LE, no ulcerations - Neurological Exam Additional comments: sedated Results - Vital Signs Recent Vital Signs: Last Vital Signs Temp 97.9 F 04/21/17 07:51 Pulse 119 H 04/21/17 08:48 Resp 30 H 04/21/17 08:48 BP 115/82 04/21/17 08:48 Pulse Ox 95 04/21/17 08:48 - Labs Result Diagrams: 04/21/17 05:00 04/21/17 05:53 Labs: Laboratory Results - last 24 hr 04/20/17 04/20/17 04/20/17 13:45 16:45 21:29 WBC RBC Hgb Hct MCV MCH MCHC RDW Plt Count D-Dimer, Quantitative pCO2 pO2 HCO3 ABG pH ABG Total CO2 ABG O2 Saturation ABG O2 Content ABG Base Excess ABG Hemoglobin ABG Carboxyhemoglobin POC ABG HHb (Measured) ABG Methemoglobin ABG O2 Capacity Boaz Test A-a O2 Difference Hgb O2 Saturation Mechanical Rate FiO2 Inspiratory BiPAP Expiratory BiPAP Sodium Potassium Chloride Carbon Dioxide Anion Gap BUN Creatinine Est GFR ( Amer) Est GFR (Non-Af Amer) POC Glucose (mg/dL) 192 H 179 H 216 H Random Glucose Calcium Magnesium 04/21/17 04/21/17 04/21/17 04:30 05:00 05:00 WBC 8.5 D RBC 4.78 Hgb 13.8 Hct 42.3 MCV 88.5 MCH 29.0 MCHC 32.7 L RDW 14.7 H Plt Count 223 D-Dimer, Quantitative 1616 H pCO2 pO2 HCO3 ABG pH ABG Total CO2 ABG O2 Saturation ABG O2 Content ABG Base Excess ABG Hemoglobin ABG Carboxyhemoglobin POC ABG HHb (Measured) ABG Methemoglobin ABG O2 Capacity Boaz Test A-a O2 Difference Hgb O2 Saturation Mechanical Rate FiO2 Inspiratory BiPAP Expiratory BiPAP Sodium Potassium Chloride Carbon Dioxide Anion Gap BUN Creatinine Est GFR ( Amer) Est GFR (Non-Af Amer) POC Glucose (mg/dL) 230 H Random Glucose Calcium Magnesium 04/21/17 04/21/17 04/21/17 05:23 05:53 05:56 WBC RBC Hgb Hct MCV MCH MCHC RDW Plt Count D-Dimer, Quantitative pCO2 63 H pO2 74 L HCO3 30.8 H ABG pH 7.36 ABG Total CO2 37.5 H ABG O2 Saturation 96.0 ABG O2 Content 19.1 ABG Base Excess 7.7 H ABG Hemoglobin 14.6 ABG Carboxyhemoglobin 1.6 H POC ABG HHb (Measured) 3.9 ABG Methemoglobin 1.5 ABG O2 Capacity 19.9 Boaz Test Yes A-a O2 Difference 560.0 Hgb O2 Saturation 93.0 L Mechanical Rate 14 FiO2 100.0 Inspiratory BiPAP 14 Expiratory BiPAP 8 Sodium 145 Potassium 4.1 Chloride 102 Carbon Dioxide 35 H Anion Gap 12 BUN 14 Creatinine 0.6 L Est GFR ( Amer) > 60 Est GFR (Non-Af Amer) > 60 POC Glucose (mg/dL) 267 H Random Glucose 292 H Calcium 9.1 Magnesium 2.1 Laboratory Results - last 72 hr 04/18/17 04/18/17 04/19/17 16:41 22:02 04:30 WBC RBC Hgb Hct MCV MCH MCHC RDW Plt Count D-Dimer, Quantitative pCO2 pO2 HCO3 ABG pH ABG Total CO2 ABG O2 Saturation ABG O2 Content ABG Base Excess ABG Hemoglobin ABG Carboxyhemoglobin POC ABG HHb (Measured) ABG Methemoglobin ABG O2 Capacity Boaz Test A-a O2 Difference Hgb O2 Saturation Mechanical Rate FiO2 Inspiratory BiPAP Expiratory BiPAP Sodium Potassium Chloride Carbon Dioxide Anion Gap BUN Creatinine Est GFR ( Amer) Est GFR (Non-Af Amer) POC Glucose (mg/dL) 151 H 194 H Random Glucose Calcium Magnesium Valproic Acid 57.6 04/19/17 04/19/17 04/19/17 04:30 04:30 11:11 WBC 4.2 L RBC 4.31 Hgb 12.4 Hct 38.5 MCV 89.3 MCH 28.7 MCHC 32.1 L RDW 14.6 H Plt Count 196 D-Dimer, Quantitative pCO2 pO2 HCO3 ABG pH ABG Total CO2 ABG O2 Saturation ABG O2 Content ABG Base Excess ABG Hemoglobin ABG Carboxyhemoglobin POC ABG HHb (Measured) ABG Methemoglobin ABG O2 Capacity Boaz Test A-a O2 Difference Hgb O2 Saturation Mechanical Rate FiO2 Inspiratory BiPAP Expiratory BiPAP Sodium 143 Potassium 3.6 Chloride 105 Carbon Dioxide 29 Anion Gap 13 BUN 12 Creatinine 0.5 L Est GFR ( Amer) > 60 Est GFR (Non-Af Amer) > 60 POC Glucose (mg/dL) 148 H Random Glucose 191 H Calcium 8.5 Magnesium Valproic Acid 04/19/17 04/19/17 04/20/17 16:53 21:10 04:15 WBC 4.8 RBC 4.37 Hgb 12.2 Hct 38.5 MCV 88.2 MCH 28.0 MCHC 31.7 L RDW 14.6 H Plt Count 200 D-Dimer, Quantitative pCO2 pO2 HCO3 ABG pH ABG Total CO2 ABG O2 Saturation ABG O2 Content ABG Base Excess ABG Hemoglobin ABG Carboxyhemoglobin POC ABG HHb (Measured) ABG Methemoglobin ABG O2 Capacity Boaz Test A-a O2 Difference Hgb O2 Saturation Mechanical Rate FiO2 Inspiratory BiPAP Expiratory BiPAP Sodium Potassium Chloride Carbon Dioxide Anion Gap BUN Creatinine Est GFR ( Amer) Est GFR (Non-Af Amer) POC Glucose (mg/dL) 104 120 H Random Glucose Calcium Magnesium Valproic Acid 04/20/17 04/20/17 04/20/17 04:15 05:31 13:45 WBC RBC Hgb Hct MCV MCH MCHC RDW Plt Count D-Dimer, Quantitative pCO2 pO2 HCO3 ABG pH ABG Total CO2 ABG O2 Saturation ABG O2 Content ABG Base Excess ABG Hemoglobin ABG Carboxyhemoglobin POC ABG HHb (Measured) ABG Methemoglobin ABG O2 Capacity Boaz Test A-a O2 Difference Hgb O2 Saturation Mechanical Rate FiO2 Inspiratory BiPAP Expiratory BiPAP Sodium 143 Potassium 3.2 L Chloride 103 Carbon Dioxide 32 H Anion Gap 11 BUN 8 Creatinine 0.5 L Est GFR ( Amer) > 60 Est GFR (Non-Af Amer) > 60 POC Glucose (mg/dL) 118 H 192 H Random Glucose 122 H Calcium 8.6 Magnesium Valproic Acid 04/20/17 04/20/17 04/21/17 16:45 21:29 04:30 WBC RBC Hgb Hct MCV MCH MCHC RDW Plt Count D-Dimer, Quantitative pCO2 pO2 HCO3 ABG pH ABG Total CO2 ABG O2 Saturation ABG O2 Content ABG Base Excess ABG Hemoglobin ABG Carboxyhemoglobin POC ABG HHb (Measured) ABG Methemoglobin ABG O2 Capacity Boaz Test A-a O2 Difference Hgb O2 Saturation Mechanical Rate FiO2 Inspiratory BiPAP Expiratory BiPAP Sodium Potassium Chloride Carbon Dioxide Anion Gap BUN Creatinine Est GFR ( Amer) Est GFR (Non-Af Amer) POC Glucose (mg/dL) 179 H 216 H 230 H Random Glucose Calcium Magnesium Valproic Acid 04/21/17 04/21/17 04/21/17 05:00 05:00 05:23 WBC 8.5 D RBC 4.78 Hgb 13.8 Hct 42.3 MCV 88.5 MCH 29.0 MCHC 32.7 L RDW 14.7 H Plt Count 223 D-Dimer, Quantitative 1616 H pCO2 63 H pO2 74 L HCO3 30.8 H ABG pH 7.36 ABG Total CO2 37.5 H ABG O2 Saturation 96.0 ABG O2 Content 19.1 ABG Base Excess 7.7 H ABG Hemoglobin 14.6 ABG Carboxyhemoglobin 1.6 H POC ABG HHb (Measured) 3.9 ABG Methemoglobin 1.5 ABG O2 Capacity 19.9 Boaz Test Yes A-a O2 Difference 560.0 Hgb O2 Saturation 93.0 L Mechanical Rate 14 FiO2 100.0 Inspiratory BiPAP 14 Expiratory BiPAP 8 Sodium Potassium Chloride Carbon Dioxide Anion Gap BUN Creatinine Est GFR ( Amer) Est GFR (Non-Af Amer) POC Glucose (mg/dL) Random Glucose Calcium Magnesium Valproic Acid 04/21/17 04/21/17 04/21/17 05:53 05:56 11:44 WBC RBC Hgb Hct MCV MCH MCHC RDW Plt Count D-Dimer, Quantitative pCO2 pO2 HCO3 ABG pH ABG Total CO2 ABG O2 Saturation ABG O2 Content ABG Base Excess ABG Hemoglobin ABG Carboxyhemoglobin POC ABG HHb (Measured) ABG Methemoglobin ABG O2 Capacity Boaz Test A-a O2 Difference Hgb O2 Saturation Mechanical Rate FiO2 Inspiratory BiPAP Expiratory BiPAP Sodium 145 Potassium 4.1 Chloride 102 Carbon Dioxide 35 H Anion Gap 12 BUN 14 Creatinine 0.6 L Est GFR ( Amer) > 60 Est GFR (Non-Af Amer) > 60 POC Glucose (mg/dL) 267 H 280 H Random Glucose 292 H Calcium 9.1 Magnesium 2.1 Valproic Acid Microbiology 04/20/17 07:55 Urine,Clean Catch Urine Culture - Preliminary Gram Negative Hardy 04/15/17 06:14 Blood-Venous Blood Culture - Final NO GROWTH AFTER 5 DAYS 04/15/17 06:14 Blood-Venous Gram Stain - Final TEST NOT PERFORMED 04/15/17 06:14 Blood-Venous Blood Culture - Final NO GROWTH AFTER 5 DAYS 04/15/17 06:14 Blood-Venous Gram Stain - Final TEST NOT PERFORMED 04/16/17 08:25 Naris MRSA Culture (Admit) - Final MRSA NOT DETECTED 04/12/17 21:15 Urine,Clean Catch Urine Culture - Final > 100,000 CFU/ML. MULTIPLE SPECIES. SUGGEST REPEAT SPECIMEM. Accession No. : [id number] Patient Name / ID : SAFIA Lunsford [id number] Exam Date : 04/21/2017 08:13:00 ( Approved ) Study Comment : Sex / Age : F / 72Y Creator : Andrei Kowalski MD Dictator : Andrei Kowalski MD Director Of Training : Fire Hydrant Operator : Andrei Kowalski MD Approver2 : Report Date : 04/21/2017 12:13:09 My Comment : HISTORY: Post intubation. COMPARISON: Multiple serial examinations preceding the most recent study: April 21, 2017. Time of the most recent examination: 05:33. FINDINGS: LUNGS: Right lower lobe consolidative changes representing new/more conspicuous finding. PLEURA: No significant pleural effusion identified, no pneumothorax apparent. CARDIOVASCULAR: No radiographic findings to suggest acute or significant cardiovascular disease. OSSEOUS STRUCTURES: AllNo significant abnormalities. VISUALIZED UPPER ABDOMEN: Normal. OTHER FINDINGS: Bold endotracheal tube in satisfactory position. The tip within 2 cm of the james. Stable position of nasogastric tube. IMPRESSION: Satisfactory position of recently placed endotracheal tube. Accession No. : [id number] Patient Name / ID : SAFIA Lunsford [id number] Exam Date : 04/20/2017 11:02:25 ( Approved ) Study Comment : Sex / Age : F / 72Y Creator : Candida Iqbal MD Dictator : Candida Iqbal MD Director Of Training : Fire Hydrant Operator : Candida Iqbal MD Approver2 : Report Date : 04/20/2017 11:25:31 My Comment : PROCEDURE: CT HEAD WITHOUT CONTRAST. HISTORY: cva COMPARISON: Comparison is made to the previous study dated 04/17/2017 TECHNIQUE: Axial computed tomography images were obtained through the head/brain without intravenous contrast. Radiation dose: Total exam DLP = 1107.56 mGy-cm. This CT exam was performed using one or more of the following dose reduction techniques: Automated exposure control, adjustment of the mA and/or kV according to patient size, and/or use of iterative reconstruction technique. FINDINGS: HEMORRHAGE: No intracranial hemorrhage. BRAIN: Focal low attenuation at the right frontal lobe right coronal radiata/ centrum semiovale again noted at these larger and more conspicuous compared to the previous exam and suggestive of subacute right MCA territory infarction. Mild atrophy and mild chronic microvascular white matter ischemic disease. VENTRICLES: The lateral ventricles are mildly dilated out of proportion of the dilated sulci suggestive of possible mild hydrocephalus. CALVARIUM: Unremarkable. PARANASAL SINUSES: Unremarkable as visualized. No significant inflammatory changes. MASTOID AIR CELLS: Unremarkable as visualized. No inflammatory changes. OTHER FINDINGS: None. IMPRESSION: No evidence of acute intracranial hemorrhage. Re- demonstration of right coronal radiata centrum semiovale subacute infarction which appears slightly larger and more conspicuous compared to the previous exam likely due to associate edema. Otherwise no seen interval change. Assessment & Plan (1) CVA (cerebral vascular accident) Status: Acute Priority: High (2) Type 2 diabetes mellitus with pressure callus Status: Acute (3) Aspiration pneumonia Status: Acute - Assessment and Plan (Free Text) Assessment: A/P- 72 year old female with DM Ii, HTN was admitted with mental status change and was found to have acute ischemic stroke but was doing better and was transferred to step down unit, however, had TABLE CUT OFF SAW OPERATOR and for resp distress and is now post intubation and back in ICU . resp distress most likely secondary to aspiration afebrile normal wbc count cxr report- RLL pneumonia. blood cx- neg UA- neg urine cx prelim- GNR influenza- negative Plan- advise to cover with broad spectrum antibiotics to cover for hospital acquired pathogens as well as anaerobes for aspiration pneumonitis. hence advise to continue with IV zosyn as initiated by the hospitalist which also has anerobic coverage. advise to d/c clindamycin. advise to continue with IV vancomycin that was initiated . keep trough <15. check sputum cx. check 2 more blood cx. all above d/w Manager Public and hospitalist. thank you for allowing me to take part in the care of this patient. All labs, imaging and notes reviewed. ICU time spent 60 minutes.
--- NOTE | 2017-04-21 11:34 | CP.CCUPN ---
<Sharyn Hidalgo - Last Filed: 04/21/17 18:20> CCU Subjective - Physician Review Subjective (Free Text): 04/21/17 10:45 Patient was seen and examined with suspension cord tier attending during ICU round.Patient was admitted to the telemtry unit with This is a 72 y/o F with PMHx of HTN, HLD, DM, CAD and bilateral hallus ulceration. Patient was brought in via EMS to ER on 04/12 for evaluation of altered mental status, onset a few months ago. Patient was admitted to the telemetry unit with acute cerebral vascular accident. On 04/17 patient developed change in mental status/left upper extremity weakness, CODE STROKE was called and was transferred to ICU. On 04/20 patient was transferred back to Telemetry unit. NG tube placed to resume medications, and feeding. DAY CARE DIRECTOR was called today at 4:56 AM due to O2 sat 86-89 % and stridor. Patient was managed by DAY CARE DIRECTOR team with Duoneb, Solumedrol 60 mg IV x 2, and Benadryl 50 mg IV once, ABG was done, and placed on BIPAP. On BIPAP O2 sat was 97 % at 6 AM today as per nurse's notes. Prior to the DAY CARE DIRECTOR patient received lopressor 5 mg IV once because elevated BP 186/79. Patient was intubated this morning because worsening in respiratory status and Hypercapnia noted in ABG. Significant amount of dry phlegm was noted during intubation. Now patient is mechanical ventilation, PRVC: Rate: 12, TV: 500, PEEP : 5, FIO2: started on 100 %, now in 80 %. Critical Care Time Spent (in minutes): 45 CCU Objective - Vital Signs / Intake & Output Vital Signs (Last 4 hours): Vital Signs Temp Pulse Resp BP Pulse Ox 04/21/17 08:48 119 H 30 H 115/82 95 04/21/17 07:51 97.9 F 111 H 18 149/83 97 Intake and Output (Last 8hrs): Intake & Output 04/20/17 04/21/17 04/21/17 22:59 06:59 14:59 Intake Total 600 700 Output Total 300 Balance 300 700 Intake: Intake, Piggyback 100 Tube Feeding 600 600 Output: Urine 300 Urine, Voided 300 Other: # Bowel Movements 1 - Physical Exam Head: Positive for: Atraumatic, Normocephalic Pupils: Positive for: PERRL Mouth: Positive for: Moist Mucous Membranes Respiratory/Chest: Positive for: Clear to Auscultation. Negative for: Respiratory Distress, Wheezes, Rhonchi Abdomen: Positive for: Normal Bowel Sounds. Negative for: Tenderness, Distention, Guarding Upper Extremity: Positive for: Capillary Refill < 2s. Negative for: Cyanosis Lower Extremity: Negative for: Edema Skin: Positive for: Warm, Dry, Pale Psychiatric: Positive for: Other (intubated on mechanical ventilation) - Medications Active Medications: Active Medications Generic Name Dose Route Start Last Admin Trade Name Freq PRN Reason Stop Dose Admin Acetaminophen 650 mg 04/15/17 23:34 04/15/17 23:58 Tylenol 325mg Tab PO 650 mg Q6 PRN Administration fever > 100.4 Albuterol/Ipratropium 3 ml 04/21/17 05:11 Duoneb 3 Mg/0.5 Mg (3 Ml) Ud INH RQ6 PRN Shortness of Breath Apixaban 2.5 mg 04/17/17 17:00 04/20/17 16:55 Eliquis PO 2.5 mg BID BRIAN Administration Protocol Aspirin 81 mg 04/19/17 13:00 04/20/17 08:29 Aspirin Chewable PO 81 mg DAILY BRIAN Administration Atorvastatin Calcium 40 mg 04/13/17 22:00 04/20/17 21:29 Lipitor PO 40 mg HS BRIAN Administration Bacitracin 1 applic 04/16/17 09:00 04/20/17 16:56 Bacitracin Oint TOP 1 applic BID BRIAN Administration Enalapril Maleate 2.5 mg 04/19/17 17:00 04/20/17 16:55 Vasotec PO 2.5 mg BID BRIAN Administration Glipizide 10 mg 04/14/17 08:00 04/20/17 16:55 Glucotrol Xl PO 10 mg BRKDIN BRIAN Administration Valproate Sodium 500 mg/ 105 mls @ 105 mls/hr 04/17/17 21:00 04/20/17 21:27 Sodium Chloride IVPB 105 mls/hr Q12 BRIAN Administration As Directed Vancomycin HCl 1 gm/ Sodium 250 mls @ 166.667 mls/hr 04/21/17 09:00 Chloride IVPB DAILY BRIAN Protocol Piperacillin Sod/Tazobactam 100 mls @ 100 mls/hr 04/21/17 10:00 Sod 3.375 gm/ Sodium Chloride IVPB Q6 [facility] Protocol Clindamycin in NS 300 mg in 50 mls @ 50 mls/hr 04/21/17 09:30 Clindamycin 300 Mg/50 Ml-Ns IVPB Q8 [facility] Protocol Insulin Detemir 20 units 04/15/17 16:43 04/20/17 21:32 Levemir SC 20 u HS BRIAN Administration Insulin Human Regular 0 units 04/13/17 07:30 04/21/17 06:59 Humulin R SC 3 units ACHS BRIAN Administration Protocol Repaglinide 1 mg 04/14/17 09:00 04/20/17 16:56 Prandin PO 1 mg TID BRIAN Administration Sitagliptin Phosphate 50 mg 04/14/17 09:00 04/20/17 16:56 Januvia PO 50 mg BID BRIAN Administration - Patient Studies Lab Studies: Microbiology Studies 04/20/17 07:55 Urine Culture - Preliminary Urine,Clean Catch Gram Negative Hardy 04/15/17 06:14 Blood Culture - Final Blood-Venous NO GROWTH AFTER 5 DAYS Gram Stain - Final TEST NOT PERFORMED 04/15/17 06:14 Blood Culture - Final Blood-Venous NO GROWTH AFTER 5 DAYS Gram Stain - Final TEST NOT PERFORMED Lab Studies 04/21/17 04/21/17 04/21/17 Range/Units 05:56 05:53 05:23 WBC (4.8-10.8) K/uL RBC (3.80-5.20) Mil/uL Hgb (12.0-16.0) g/dL Hct (34.0-47.0) % MCV (81.0-99.0) fl MCH (27.0-31.0) pg MCHC (33.0-37.0) g/dL RDW (11.5-14.5) % Plt Count (130-400) K/uL D-Dimer, Quantitative (0-230) ng/mlDDU pCO2 63 H (35-45) mm/Hg pO2 74 L (80-100) mm/Hg HCO3 30.8 H (21-28) mmol/L ABG pH 7.36 (7.35-7.45) ABG Total CO2 37.5 H (22-28) mmol/L ABG O2 Saturation 96.0 (95-98) % ABG O2 Content 19.1 (15-23) ML/dL ABG Base Excess 7.7 H (-2.0-3.0) mmol/L ABG Hemoglobin 14.6 (11.7-17.4) g/dL ABG Carboxyhemoglobin 1.6 H (0.5-1.5) % POC ABG HHb (Measured) 3.9 (0.0-5.0) % ABG Methemoglobin 1.5 (0.0-3.0) % ABG O2 Capacity 19.9 (16-24) mL/dL Boaz Test Yes A-a O2 Difference 560.0 mm/Hg Hgb O2 Saturation 93.0 L (95.0-98.0) % Mechanical Rate 14 FiO2 100.0 % Inspiratory BiPAP 14 Expiratory BiPAP 8 Sodium 145 (132-148) mmol/l Potassium 4.1 (3.6-5.0) MMOL/L Chloride 102 (98-107) mmol/L Carbon Dioxide 35 H (22-30) mmol/L Anion Gap 12 (10-20) BUN 14 (7-17) mg/dl Creatinine 0.6 L (0.7-1.2) mg/dl Est GFR ( Amer) > 60 Est GFR (Non-Af Amer) > 60 POC Glucose (mg/dL) 267 H (65-110) mg/dL Random Glucose 292 H (65-105) mg/dL Calcium 9.1 (8.4-10.2) mg/dL Magnesium 2.1 (1.6-2.3) MG/DL 04/21/17 04/21/17 04/21/17 Range/Units 05:00 05:00 04:30 WBC 8.5 D (4.8-10.8) K/uL RBC 4.78 (3.80-5.20) Mil/uL Hgb 13.8 (12.0-16.0) g/dL Hct 42.3 (34.0-47.0) % MCV 88.5 (81.0-99.0) fl MCH 29.0 (27.0-31.0) pg MCHC 32.7 L (33.0-37.0) g/dL RDW 14.7 H (11.5-14.5) % Plt Count 223 (130-400) K/uL D-Dimer, Quantitative 1616 H (0-230) ng/mlDDU pCO2 (35-45) mm/Hg pO2 (80-100) mm/Hg HCO3 (21-28) mmol/L ABG pH (7.35-7.45) ABG Total CO2 (22-28) mmol/L ABG O2 Saturation (95-98) % ABG O2 Content (15-23) ML/dL ABG Base Excess (-2.0-3.0) mmol/L ABG Hemoglobin (11.7-17.4) g/dL ABG Carboxyhemoglobin (0.5-1.5) % POC ABG HHb (Measured) (0.0-5.0) % ABG Methemoglobin (0.0-3.0) % ABG O2 Capacity (16-24) mL/dL Boaz Test A-a O2 Difference mm/Hg Hgb O2 Saturation (95.0-98.0) % Mechanical Rate FiO2 % Inspiratory BiPAP Expiratory BiPAP Sodium (132-148) mmol/l Potassium (3.6-5.0) MMOL/L Chloride (98-107) mmol/L Carbon Dioxide (22-30) mmol/L Anion Gap (10-20) BUN (7-17) mg/dl Creatinine (0.7-1.2) mg/dl Est GFR ( Amer) Est GFR (Non-Af Amer) POC Glucose (mg/dL) 230 H (65-110) mg/dL Random Glucose (65-105) mg/dL Calcium (8.4-10.2) mg/dL Magnesium (1.6-2.3) MG/DL 04/20/17 04/20/17 04/20/17 Range/Units 21:29 16:45 13:45 WBC (4.8-10.8) K/uL RBC (3.80-5.20) Mil/uL Hgb (12.0-16.0) g/dL Hct (34.0-47.0) % MCV (81.0-99.0) fl MCH (27.0-31.0) pg MCHC (33.0-37.0) g/dL RDW (11.5-14.5) % Plt Count (130-400) K/uL D-Dimer, Quantitative (0-230) ng/mlDDU pCO2 (35-45) mm/Hg pO2 (80-100) mm/Hg HCO3 (21-28) mmol/L ABG pH (7.35-7.45) ABG Total CO2 (22-28) mmol/L ABG O2 Saturation (95-98) % ABG O2 Content (15-23) ML/dL ABG Base Excess (-2.0-3.0) mmol/L ABG Hemoglobin (11.7-17.4) g/dL ABG Carboxyhemoglobin (0.5-1.5) % POC ABG HHb (Measured) (0.0-5.0) % ABG Methemoglobin (0.0-3.0) % ABG O2 Capacity (16-24) mL/dL Boaz Test A-a O2 Difference mm/Hg Hgb O2 Saturation (95.0-98.0) % Mechanical Rate FiO2 % Inspiratory BiPAP Expiratory BiPAP Sodium (132-148) mmol/l Potassium (3.6-5.0) MMOL/L Chloride (98-107) mmol/L Carbon Dioxide (22-30) mmol/L Anion Gap (10-20) BUN (7-17) mg/dl Creatinine (0.7-1.2) mg/dl Est GFR ( Amer) Est GFR (Non-Af Amer) POC Glucose (mg/dL) 216 H 179 H 192 H (65-110) mg/dL Random Glucose (65-105) mg/dL Calcium (8.4-10.2) mg/dL Magnesium (1.6-2.3) MG/DL Laboratory Results - last 24 hr 04/20/17 04/20/17 04/20/17 13:45 16:45 21:29 WBC RBC Hgb Hct MCV MCH MCHC RDW Plt Count D-Dimer, Quantitative pCO2 pO2 HCO3 ABG pH ABG Total CO2 ABG O2 Saturation ABG O2 Content ABG Base Excess ABG Hemoglobin ABG Carboxyhemoglobin POC ABG HHb (Measured) ABG Methemoglobin ABG O2 Capacity Boaz Test A-a O2 Difference Hgb O2 Saturation Mechanical Rate FiO2 Inspiratory BiPAP Expiratory BiPAP Sodium Potassium Chloride Carbon Dioxide Anion Gap BUN Creatinine Est GFR ( Amer) Est GFR (Non-Af Amer) POC Glucose (mg/dL) 192 H 179 H 216 H Random Glucose Calcium Magnesium 04/21/17 04/21/17 04/21/17 04:30 05:00 05:00 WBC 8.5 D RBC 4.78 Hgb 13.8 Hct 42.3 MCV 88.5 MCH 29.0 MCHC 32.7 L RDW 14.7 H Plt Count 223 D-Dimer, Quantitative 1616 H pCO2 pO2 HCO3 ABG pH ABG Total CO2 ABG O2 Saturation ABG O2 Content ABG Base Excess ABG Hemoglobin ABG Carboxyhemoglobin POC ABG HHb (Measured) ABG Methemoglobin ABG O2 Capacity Boaz Test A-a O2 Difference Hgb O2 Saturation Mechanical Rate FiO2 Inspiratory BiPAP Expiratory BiPAP Sodium Potassium Chloride Carbon Dioxide Anion Gap BUN Creatinine Est GFR ( Amer) Est GFR (Non-Af Amer) POC Glucose (mg/dL) 230 H Random Glucose Calcium Magnesium 04/21/17 04/21/17 04/21/17 05:23 05:53 05:56 WBC RBC Hgb Hct MCV MCH MCHC RDW Plt Count D-Dimer, Quantitative pCO2 63 H pO2 74 L HCO3 30.8 H ABG pH 7.36 ABG Total CO2 37.5 H ABG O2 Saturation 96.0 ABG O2 Content 19.1 ABG Base Excess 7.7 H ABG Hemoglobin 14.6 ABG Carboxyhemoglobin 1.6 H POC ABG HHb (Measured) 3.9 ABG Methemoglobin 1.5 ABG O2 Capacity 19.9 Boaz Test Yes A-a O2 Difference 560.0 Hgb O2 Saturation 93.0 L Mechanical Rate 14 FiO2 100.0 Inspiratory BiPAP 14 Expiratory BiPAP 8 Sodium 145 Potassium 4.1 Chloride 102 Carbon Dioxide 35 H Anion Gap 12 BUN 14 Creatinine 0.6 L Est GFR ( Amer) > 60 Est GFR (Non-Af Amer) > 60 POC Glucose (mg/dL) 267 H Random Glucose 292 H Calcium 9.1 Magnesium 2.1 Fingerstick Blood Sugar Results: 267 Review of Systems - Review of Systems Review of Systems: unable to assess because altered mental status Critical Care Progress Note - Nutrition Nutrition: Nutrition Category Date Time Status NPO Diet [DIET] Diets 04/18/17 Breakfast Active Assessment/Plan - Assessment and Plan (Free Text) Plan: Respiratory Distress -likely 2/2 aspiration Pneumonia vs Hospital adquired -PaCO2 elevated 63 on ABG today at 5:23 am -PRVC AC: respiratory rate: 12, TV: 500, PEEP 5, FiO2 80 % -Vancomycin 1 gm IVPB daily -Zosyn 3.375 gm IVPB Q6 f/u ABG and CXR in AM -CXR today after endotracheal intubation repoted as endotracheal tube in satisfactory position. New right lower lobe consolidative changes. -started on antibiotics for aspiration pneumonia. Patient is high risk for aspiration pneumonia. -ID was consulted by primary team. rec are appreciated. Acute Ischemic Stroke -c/w aspirin 81 mg daily -c/w atorvastatin 40 mg daily -Neurology was consulted by primary team Diabetes Mellitus type2 c/w glycemic control Hypertension c/w current HTN management s/p stroke Diabetic foot calluses -Podiatry on consult by primary team -Podiatry recs are appreciated Prophylaxis -DVT prophylaxis : on SCDs and Eliquis 2.5 mg BID -stress ulcer prophylaxis: Protonix 40 mg IV daily -pressure ulcers precautions - Date & Time Date: 04/21/17 Time: 10:45 <Cayetano Story - Last Filed: 04/21/17 18:34> CCU Subjective - Physician Review Subjective (Free Text): Attestation: Patient seen and examined at the bedside with Resident Dr. Romana Hidalgo; and I agree with her outline of plans and management documented above as discussed on AM rounds reflecting my review of all applicable clinical data, and participation in the care of the patient throughout the day in ICU; April. Time spent with this patient did not overlap with any other provider's medical or critical care time. Additionally the code selected for the services rendered in this note includes the time spent: talking to the patients family, associated physicians and reviewing hospital data/results not listed here which extended to a total of 45 minutes.
--- NOTE | 2017-04-21 12:13 | RAD ---
PROCEDURE: CHEST RADIOGRAPH, 1 VIEW HISTORY: Stridor. COMPARISON: 04/18/2017. FINDINGS: LUNGS: Low lung volumes accentuate pulmonary markings, support apparatus overlies the right upper lobe. PLEURA: No pneumothorax or pleural fluid seen. CARDIOVASCULAR: No radiographic findings to suggest acute or significant cardiovascular disease. OSSEOUS STRUCTURES: No significant abnormalities. VISUALIZED UPPER ABDOMEN: Normal. OTHER FINDINGS: Nasogastric tube again identified unchanged. IMPRESSION: No significant interval change compared to the prior examination(s).
--- NOTE | 2017-04-21 12:15 | RAD ---
HISTORY: Post intubation. COMPARISON: Multiple serial examinations preceding the most recent study: April 21, 2017. Time of the most recent examination: 05:33. FINDINGS: LUNGS: Right lower lobe consolidative changes representing new/more conspicuous finding. PLEURA: No significant pleural effusion identified, no pneumothorax apparent. CARDIOVASCULAR: No radiographic findings to suggest acute or significant cardiovascular disease. OSSEOUS STRUCTURES: AllNo significant abnormalities. VISUALIZED UPPER ABDOMEN: Normal. OTHER FINDINGS: Bold endotracheal tube in satisfactory position. The tip within 2 cm of the james. Stable position of nasogastric tube. IMPRESSION: Satisfactory position of recently placed endotracheal tube.
[2017-04-21] MEDS: GlipiZIDE 10 mg SR Tab PO SCH (16:24)
--- NOTE | 2017-04-21 21:00 | CP.PCM.CON ---
History of Present Illness - History of Present Illness History of Present Illness: Pulmonary consult for a 72 y/o F, with Respiratory Failure. Today 04/21/17 in AM, CUSTOMER ENGINEER was called when noticed Pt was having respiratory distress and stridor, O2 drooped to 89%, BP 183/80, HR 102, Pt was placed in BIPAP 14.8, FIO2 199% RR 14, stated Duoneb, Solumedrol and Benadril IV, after Tx , stridor mildly improved. there after, Pt was sent to ICU and was intubated. Initially, Pt was brought to [facility] [place] on 04/12/17 for evaluation of AMS , on evaluation was found to have CVA, there after on 04/17/17, code stroke was called for increased weakness in her LUE and in her mental status, Pt was transferred to ICU. There after, Pt start improving and was placed in Telemetry until new event today in AM. Aggravated Factor: Non in compliance with medications. PMHx: DMII, HTN, HLD. Review of Systems - Review of Systems Systems not reviewed;Unavailable: Acuity of Condition, Intubated Past Patient History - Past Medical History & Family History Past Medical History?: Yes Pertinent Family History: Unknown - Past Social History Smoking Status: Never Smoked Alcohol: None Drugs: Denies Home Situation {Lives}: With Family - CARDIAC Hx Cardiac Disorders: Yes Hx Hypercholesterolemia: Yes Hx Hypertension: Yes - PULMONARY Hx Respiratory Disorders: No - NEUROLOGICAL Hx Neurological Disorder: No - HEENT Hx HEENT Problems: No - RENAL Hx Chronic Kidney Disease: No - ENDOCRINE/METABOLIC Hx Endocrine Disorders: Yes Hx Diabetes Mellitus Type 2: Yes - HEMATOLOGICAL/ONCOLOGICAL Hx Blood Disorders: No - INTEGUMENTARY Hx Dermatological Problems: Yes Other/Comment: ulcers noted on bilateral great toes - MUSCULOSKELETAL/RHEUMATOLOGICAL Hx Musculoskeletal Disorders: No Hx Falls: No Other/Comment: let foot ulcer - GASTROINTESTINAL Hx Gastrointestinal Disorders: Yes Hx Hemorrhoids: Yes - GENITOURINARY/GYNECOLOGICAL Hx Genitourinary Disorders: No - PSYCHIATRIC Hx Psychophysiologic Disorder: No Hx Substance Use: No - SURGICAL HISTORY Hx Surgeries: No - ANESTHESIA Hx Anesthesia: Yes Hx Anesthesia Reactions: No Hx Malignant Hyperthermia: No Has any member of the family had a problem w/ anesthesia?: No Meds Home Medications: Home Medication List Medication Instructions Recorded Confirmed Type Aspirin [Aspirin Chewable] 81 mg PO DAILY chew 04/15/17 Rx Atorvastatin [Lipitor] 40 mg PO HS tab 04/15/17 Rx Clopidogrel [Plavix] 75 mg PO DAILY tab 04/15/17 Rx Clopidogrel [Plavix] 75 mg PO DAILY #30 tab 04/15/17 Rx Enalapril Maleate [Vasotec] 2.5 mg PO BID tab 04/15/17 Rx Enoxaparin [Lovenox] 40 mg SC DAILY syr 04/15/17 Rx Insulin Detemir [Levemir] 15 units SC HS vial 04/15/17 Rx Insulin Detemir [Levemir] 25 units SC HS #5 vial 04/15/17 Rx Insulin Human Regular [HumuLIN R] 0 units SC ACHS ml 04/15/17 Rx SITagliptin [Januvia] 50 mg PO BID tab 04/15/17 Rx Allergies/Adverse Reactions: Allergies Allergy/AdvReac Type Severity Reaction Status Date / Time No Known Allergies Allergy Verified 04/12/17 20:08 - Medications Medications: Current Medications Acetaminophen (Tylenol 325mg Tab) 650 mg PO Q6 PRN PRN Reason: fever > 100.4 Last Admin: 04/15/17 23:58 Dose: 650 mg Acetaminophen (Tylenol 650 Mg Supp) 650 mg SD Q4 PRN PRN Reason: Fever >100.4 F Albuterol/Ipratropium (Duoneb 3 Mg/0.5 Mg (3 Ml) Ud) 3 ml INH RQ6 PRN PRN Reason: Shortness of Breath Apixaban (Eliquis) 2.5 mg PO BID [facility] PRN Reason: Protocol Last Admin: 04/21/17 16:33 Dose: 2.5 mg Aspirin (Aspirin Chewable) 81 mg PO DAILY [facility] Last Admin: 04/21/17 10:00 Dose: 81 mg Atorvastatin Calcium (Lipitor) 40 mg PO HS [facility] Last Admin: 04/20/17 21:29 Dose: 40 mg Bacitracin (Bacitracin Oint) 1 applic TOP BID [facility] Last Admin: 04/21/17 10:43 Dose: 1 applic Enalapril Maleate (Vasotec) 2.5 mg PO BID [facility] Last Admin: 04/21/17 16:31 Dose: 2.5 mg Glipizide (Glucotrol Xl) 10 mg PO BRKDIN [facility] Last Admin: 04/21/17 16:24 Dose: Not Given Valproate Sodium 500 mg/ (Sodium Chloride) 105 mls @ 105 mls/hr IVPB Q12 BRIAN PRN Reason: As Directed Last Admin: 04/21/17 10:00 Dose: 105 mls/hr Piperacillin Sod/Tazobactam (Sod 3.375 gm/ Sodium Chloride) 100 mls @ 100 mls/ hr IVPB Q6 BRIAN PRN Reason: Protocol Last Admin: 04/21/17 16:30 Dose: 100 mls/hr Propofol (Diprivan) 1,000 mg in 100 mls @ 2.313 mls/hr IV .Q24H BRIAN; 5 MCG/KG/ MIN PRN Reason: Protocol Stop: 04/22/17 17:46 Vancomycin HCl 1 gm/ Sodium (Chloride) 250 mls @ 166.667 mls/hr IVPB DAILY@ 2000 BRIAN PRN Reason: Protocol Last Admin: 04/21/17 20:53 Dose: 166.667 mls/hr Insulin Detemir (Levemir) 20 units SC HS [facility] Last Admin: 04/20/17 21:32 Dose: 20 u Insulin Human Regular (Humulin R) 0 units SC ACHS [facility] PRN Reason: Protocol Last Admin: 04/21/17 11:30 Dose: Not Given Pantoprazole Sodium (Protonix Inj) 40 mg IVP DAILY [facility] Repaglinide (Prandin) 1 mg PO TID [facility] Last Admin: 04/21/17 16:29 Dose: Not Given Sitagliptin Phosphate (Januvia) 50 mg PO BID [facility] Last Admin: 04/21/17 16:26 Dose: Not Given Physical Exam - Constitutional Appears: No Acute Distress (Sedated) - Head Exam Head Exam: NORMAL INSPECTION - ENT Exam Additional comments: Intubated - Neck Exam Neck exam: Positive for: Normal Inspection - Respiratory Exam Respiratory Exam: Decreased Breath Sounds (R base) - Cardiovascular Exam Cardiovascular Exam: REGULAR RHYTHM - GI/Abdominal Exam GI & Abdominal Exam: Normal Bowel Sounds, Soft - Extremities Exam Extremities exam: Positive for: normal inspection - Neurological Exam Additional comments: Intubated, sedated - Psychiatric Exam Additional comments: Sedated - Skin Skin Exam: Warm Results - Vital Signs Recent Vital Signs: Last Vital Signs Temp 101.9 F H 04/21/17 20:00 Pulse 98 H 04/21/17 20:00 Resp 12 04/21/17 20:00 BP 156/80 H 04/21/17 20:00 Pulse Ox 99 04/21/17 20:00 renetta [place] - Labs Result Diagrams: 04/26/17 04:30 04/26/17 04:30 Labs: Laboratory Results - last 24 hr 04/20/17 04/21/17 04/21/17 21:29 04:30 05:00 WBC 8.5 D RBC 4.78 Hgb 13.8 Hct 42.3 MCV 88.5 MCH 29.0 MCHC 32.7 L RDW 14.7 H Plt Count 223 D-Dimer, Quantitative pCO2 pO2 HCO3 ABG pH ABG Total CO2 ABG O2 Saturation ABG O2 Content ABG Base Excess ABG Hemoglobin ABG Carboxyhemoglobin POC ABG HHb (Measured) ABG Methemoglobin ABG O2 Capacity Boaz Test A-a O2 Difference Hgb O2 Saturation Mechanical Rate FiO2 Inspiratory BiPAP Expiratory BiPAP Sodium Potassium Chloride Carbon Dioxide Anion Gap BUN Creatinine Est GFR ( Amer) Est GFR (Non-Af Amer) POC Glucose (mg/dL) 216 H 230 H Random Glucose Calcium Magnesium 04/21/17 04/21/17 04/21/17 05:00 05:23 05:53 WBC RBC Hgb Hct MCV MCH MCHC RDW Plt Count D-Dimer, Quantitative 1616 H pCO2 63 H pO2 74 L HCO3 30.8 H ABG pH 7.36 ABG Total CO2 37.5 H ABG O2 Saturation 96.0 ABG O2 Content 19.1 ABG Base Excess 7.7 H ABG Hemoglobin 14.6 ABG Carboxyhemoglobin 1.6 H POC ABG HHb (Measured) 3.9 ABG Methemoglobin 1.5 ABG O2 Capacity 19.9 Boaz Test Yes A-a O2 Difference 560.0 Hgb O2 Saturation 93.0 L Mechanical Rate 14 FiO2 100.0 Inspiratory BiPAP 14 Expiratory BiPAP 8 Sodium 145 Potassium 4.1 Chloride 102 Carbon Dioxide 35 H Anion Gap 12 BUN 14 Creatinine 0.6 L Est GFR ( Amer) > 60 Est GFR (Non-Af Amer) > 60 POC Glucose (mg/dL) Random Glucose 292 H Calcium 9.1 Magnesium 2.1 04/21/17 04/21/17 04/21/17 05:56 11:44 17:00 WBC RBC Hgb Hct MCV MCH MCHC RDW Plt Count D-Dimer, Quantitative pCO2 pO2 HCO3 ABG pH ABG Total CO2 ABG O2 Saturation ABG O2 Content ABG Base Excess ABG Hemoglobin ABG Carboxyhemoglobin POC ABG HHb (Measured) ABG Methemoglobin ABG O2 Capacity Boaz Test A-a O2 Difference Hgb O2 Saturation Mechanical Rate FiO2 Inspiratory BiPAP Expiratory BiPAP Sodium Potassium Chloride Carbon Dioxide Anion Gap BUN Creatinine Est GFR ( Amer) Est GFR (Non-Af Amer) POC Glucose (mg/dL) 267 H 280 H 319 H Random Glucose Calcium Magnesium reviewed J.P. - EKG Data EKG comments: reviewed j.P. - Imaging and Cardiology MRI - head Status: Report reviewed by me (Mario Alberto) Additional comment: Duplex Scan Lower extremities artery Reviewed J.P. Head MRA Reviewed J.P. Carotid Artery U-S Reviewed J.P. CT scan - head Status: Report reviewed by me (Bhupendra.) Chest x-ray Status: Report reviewed by me (LizP.) Venous US Status: Report reviewed by me (Lachelle.P.) Assessment & Plan (1) Respiratory failure Status: Acute Priority: High (2) Aspiration pneumonia Status: Acute Priority: High (3) CVA (cerebral vascular accident) Status: Acute Priority: High - Assessment and Plan (Free Text) Plan: Continue Ventilatory support, attempt of weaning , continue Zosyn, Vanco as per ID , Duoneb and rest of tx. ICU Time: 55 min. - Date & Time Date: 04/21/17 Time: 20:30
[2017-04-21] MEDS: Insulin Detemir 100 Units/ml Inj SC SCH (21:54)
[2017-04-21] MEDS: Propofol 10 mg/ml 1,000 MG/100 ML VIAL IV SCH (21:55)
[2017-04-22] MEDS: Piperacillin/Tazobact 3.375 GM in Sodium Chloride 0.9% 100 ML IVPB SCH (03:35)
[2017-04-22 05:22] LABS: BASO % 0.4 % (0.0-2.0); HEMOGLOBIN 13.5 g/dL (12.0-16.0); LYMPH # 1.2 K/uL (1.0-4.3); LYMPH % 12.8 % (20.0-40.0); MEAN CELL VOLUME 89.2 fl (81.0-99.0); MEAN CORPUSCULAR HEMOGLOBIN 28.5 pg (27.0-31.0); MEAN CORPUSCULAR HGB CONC 31.9 g/dL (33.0-37.0); MEAN PLATELET VOLUME 10.2 fl (7.2-11.7); MONO % 10.3 % (0.0-10.0); NEUT # 7.2 K/uL (1.8-7.0); NEUT % 76.5 % (50.0-75.0); RBC 4.74 Mil/uL (3.80-5.20); RED CELL DISTRIBUTION WIDTH 14.9 % (11.5-14.5); WHITE BLOOD COUNT 9.4 K/uL (4.8-10.8)
[2017-04-22 05:48] LABS: ABG ALLEN TEST YES; ARTERIAL BLOOD GAS HCO3 34.2 mmol/L (21-28); ARTERIAL BLOOD GAS HEMOGLOBIN 13.4 g/dL (11.7-17.4); ARTERIAL BLOOD GAS O2 CAPACITY 18.6 mL/dL (16-24); ARTERIAL BLOOD GAS O2 CONTENT 18.5 ML/dL (15-23); ARTERIAL BLOOD GAS O2 SAT 99.6 % (95-98); ARTERIAL BLOOD GAS PCO2 43 mm/Hg (35-45); ARTERIAL BLOOD GAS PH 7.53 (7.35-7.45); ARTERIAL BLOOD GAS PO2 140 mm/Hg (80-100); ARTERIAL BLOOD GAS TCO2 37.2 mmol/L (22-28)
[2017-04-22 06:03] LABS: BLOOD UREA NITROGEN 32 mg/dl (7-17); CALCIUM 8.7 mg/dL (8.4-10.2); GFR AFRICAN-AMERICAN > 60; GFR NON-AFRICAN AMERICAN > 60
[2017-04-22] MEDS: Insulin Regular 100 units/ml SC SCH ×4 (06:37→22:26)
--- NOTE | 2017-04-22 08:16 | CP.PCM.PN ---
Subjective - Date & Time of Evaluation Date of Evaluation: 04/22/17 Time of Evaluation: 09:00 - Subjective Subjective: Patient was seen and evaluated bedside this morning .Intubated on MV PRVC AC mode 12/500/5/ 80 % with ABG 43/140/34/7.5 on Propofol drip for sedation but moving right side BP 141/72 HR 109 Tmax 101.9 CXR showed nb vascular congestion WBC 9 k Hgb 13 Na 148 K 4.1 Urine Cx positive for E. Coli with bilious output from OGT Objective - Vital Signs/Intake and Output Vital Signs (last 24 hours): Temp Pulse Resp BP Pulse Ox 100.2 F H 109 H 14 141/72 99 04/22/17 04:00 04/22/17 06:38 04/22/17 06:38 04/22/17 06:38 04/22/17 06:38 Intake and Output: 04/22/17 04/22/17 06:59 18:59 Intake Total 598 Output Total 900 Balance -302 - Medications Medications: Current Medications Acetaminophen (Tylenol 325mg Tab) 650 mg PO Q6 PRN PRN Reason: fever > 100.4 Last Admin: 04/15/17 23:58 Dose: 650 mg Acetaminophen (Tylenol 650 Mg Supp) 650 mg FL Q4 PRN PRN Reason: Fever >100.4 F Last Admin: 04/21/17 21:00 Dose: 650 mg Albuterol/Ipratropium (Duoneb 3 Mg/0.5 Mg (3 Ml) Ud) 3 ml INH RQ6 PRN PRN Reason: Shortness of Breath Apixaban (Eliquis) 2.5 mg PO BID [facility] PRN Reason: Protocol Last Admin: 04/21/17 16:33 Dose: 2.5 mg Aspirin (Aspirin Chewable) 81 mg PO DAILY [facility] Last Admin: 04/21/17 10:00 Dose: 81 mg Atorvastatin Calcium (Lipitor) 40 mg PO HS [facility] Last Admin: 04/22/17 00:58 Dose: Not Given Bacitracin (Bacitracin Oint) 1 applic TOP BID [facility] Last Admin: 04/21/17 10:43 Dose: 1 applic Enalapril Maleate (Vasotec) 2.5 mg PO BID [facility] Last Admin: 04/21/17 16:31 Dose: 2.5 mg Glipizide (Glucotrol Xl) 10 mg PO BRKDIN [facility] Last Admin: 04/21/17 16:24 Dose: Not Given Valproate Sodium 500 mg/ (Sodium Chloride) 105 mls @ 105 mls/hr IVPB Q12 [facility] PRN Reason: As Directed Last Admin: 04/21/17 20:00 Dose: 105 mls/hr Piperacillin Sod/Tazobactam (Sod 3.375 gm/ Sodium Chloride) 100 mls @ 100 mls/ hr IVPB Q6 [facility] PRN Reason: Protocol Last Admin: 04/22/17 03:35 Dose: 100 mls/hr Propofol (Diprivan) 1,000 mg in 100 mls @ 2.313 mls/hr IV .Q24H BRIAN; 5 MCG/KG/ MIN PRN Reason: Protocol Stop: 04/22/17 17:46 Last Admin: 04/21/17 21:55 Dose: 8 mcg/kg/min, 3.701 mls/hr Vancomycin HCl 1 gm/ Sodium (Chloride) 250 mls @ 166.667 mls/hr IVPB DAILY@ 2000 [facility]AN PRN Reason: Protocol Last Admin: 04/21/17 20:53 Dose: 166.667 mls/hr Insulin Detemir (Levemir) 20 units SC HS [facility] Last Admin: 04/21/17 21:54 Dose: 20 u Insulin Human Regular (Humulin R) 0 units SC ACHS [facility] PRN Reason: Protocol Last Admin: 04/22/17 06:37 Dose: 2 units Pantoprazole Sodium (Protonix Inj) 40 mg IVP DAILY [facility] Repaglinide (Prandin) 1 mg PO TID [facility] Last Admin: 04/21/17 16:29 Dose: Not Given Sitagliptin Phosphate (Januvia) 50 mg PO BID [facility] Last Admin: 04/21/17 16:26 Dose: Not Given - Labs Labs: 04/22/17 04:35 04/22/17 04:35 PT 9.7 Seconds (9.8-13.1) L 04/12/17 21:15 INR 0.9 (0.9-1.2) 04/12/17 21:15 APTT 26.0 Seconds (25.6-37.1) 04/12/17 21:15 - Constitutional Appears: Other (intubated on MV , sedated on propofol) - Head Exam Head Exam: ATRAUMATIC, NORMOCEPHALIC - Eye Exam Eye Exam: PERRL - ENT Exam ENT Exam: Mucous Membranes Dry - Respiratory Exam Respiratory Exam: Clear to Ausculation Bilateral, NORMAL BREATHING PATTERN. absent: Wheezes Additional comments: coarse breath sounds - Cardiovascular Exam Cardiovascular Exam: REGULAR RHYTHM, RRR, +S1, +S2. absent: JVD - GI/Abdominal Exam GI & Abdominal Exam: Soft, Normal Bowel Sounds. absent: Distended, Guarding, Tenderness, Rebound - Rectal Exam Rectal Exam: Deferred - Extremities Exam Extremities Exam: Full ROM, Normal Capillary Refill, Normal Inspection. absent : Pedal Edema Additional comments: bilateral toe calluses with dressing in place - Neurological Exam Additional comments: intubated and sedated moves his right side pupils reactive to light gag reflex present - Skin Skin Exam: Dry, Intact, Warm Assessment and Plan - Assessment and Plan (Free Text) Assessment: 72 y/o F PMH DM, HTN, HLD brought to the ED with acutely worsening alteration of mental status , though pt had some baseline dementia for the past few months; she was noted to be speaking less . Patient's was recently hospitalized and was unable to take care of his , and she has not been eating well, nor taking her medications. CT head was neg for acute CVA or bleed. Patient glucose cherie elevated 563. MRI head showed acute stroke in right frontal lobe white matter Patient presented with left facial droop and and some expressive aphasia. Neuro consulted and patient admitted to telemetry.She was started on ASA, Statin , plavix,lovenox , Insulin and IVF for glycemic control.Her BP initially was kept elevated to allow permissive hypertension. 2/2 While in telemetry , the patient developed worsening BAILON and some left arm weakness. Patient became confused , agitated , restless ,not following any commands. She also started to have fever. Repeat MRI of the Brain : showed acute/ subcute stroke in right mcleod radiata and centrum ovale She was then transferred to ICU for close monitoring She continued to spike fevers for > 48 hours with no obvious source of infection and normal WBC count. All work up sent including CXR, UA,urine cx, blood cx and were negative for infection so fever thought to be of central origin and no antibiotics were started 2/[address] of head : stable CVA She developed episodes of agitation and restlessness requiring 1:1 for safety and medication sedation [employer] was called once patient transferred to telemetry for stridor and respiratory distress . She developed acute hypercapnic respiratory failure wa sintubated and transferred to ICU At present she is intubated, sedated on propofol drip 1. Acute hypercapnic respiratory failure Most likely secondary to aspiration pneumonia and patient's inability to handle secretions due to AMS/ CVA currently intubated on MV PRVC AC mode 12/500/5/80% Episodes of Stridor were noted before intubation and trial of ventilation by BIPAP , solumedrol and Duonebs tried with little benefit since PCO2 noted to trend up to 72 Large respiratory secretion suctioned during intubation and cultures sent Initial CXr showed new infiltrate . Started on Vanco and Zosyn IV CXR this AM showed vascular congestion and possible RLL infiltrate Continue vent management and sedation vacation Follow up blood and sputum cx. Urine cx positive for E. Coli WBC 9 K ID consulted and antibiotics changed to Meropenam and Vancomycin Pulmonary consulted Repeat CBC , ABG and CXR in AM 2. Progressive Acute ischemic stroke with AMS / lethargy worsening mental status, unable to handle secretions, aspirating , with acute respiratory failure requiring intubation initial presentation of patient was : acute stroke to right frontal lobe that progressed to right mcleod radiata and centrum semiovale stroke Repeat CT head 04/17 showed Stable appearance of acute/subacute right mcleod radiata/ centrum semiovale and subacute small left mcleod radiata/centrum semiovale infarctions. No significant interval change. Intubated due to acute respiratory failure Neuro following Continue ASA, statin, glycemic control, eliquist ( empirically started by neuro ) Tylenol PRN for fever on Depakot 500 mg IV Q12 for mood stabilizer. Cardio consulted for possible JUSTYNA but due to high risk for intubation patient was started empirically on Eliquist Started BP control with low dose ACEI Enalapril 2.5 mg BID Feeding on hold due to large bilious output 3. Suspected aspiration Pneumonia With CXR findings of new right lobe infiltrate prior to intubation and large secretions suctioned during intubation On IV meropenem and Vanco ID and pulmonary on Consult F/u sputum cx Continue Vent management, Duonebs Repeat CXR today showed improvement of infiltrate 4. Fever unclear etiology possible central ? Procalcitonin is low Echo no vegetations on IV antibiotics work up prior to intubation showed no source of infection but currently CXR shows new infiltrate and urine cx positive for E. Coli Follow up sputum and blood cx Continue Meropenem and vanco IV ID on consult 5 .Uncontrolled DM Continue accuchecks, insulin coverage keep npo for now due to large bilious output from Gtube Levemir to 20 units q hs, Glucotrol, prandin Hgb A1c 16 6. Hypertension permissive hypertension while stroke was evolving Started enalapril Low dose 7. Dyslipidemia c/w Atorvastatin 40 mg PO 8. Diabetic foot calluses podiatry consulted and following Doppler US of LE - good arterial flow 9. Hypokalemia resolved 10.DVT ppx d/c lovenox on eliquis
[2017-04-22] MEDS: Bacitracin OINT 15GM TOP SCH ×2 (08:41→17:40)
[2017-04-22] MEDS: GlipiZIDE 10 mg SR Tab PO SCH ×2 (08:45→17:41)
--- NOTE | 2017-04-22 09:22 | CP.PCM.PN ---
Subjective - Date & Time of Evaluation Date of Evaluation: 04/22/17 Time of Evaluation: 09:19 - Subjective Subjective: Ms. Black was seen and examined at the bedside.She remains intubated on mechacical ventilator with PRVC mode. Currently, she is receiving sedation of Propofol. She has GCS-4T, pupils reactive to light accommodation but sluggish, positive corneal reflex, and positive gag reflex.Her latest blood pressure is 141/72. She has wrist restraints for patient safety. She has a left nostril NGT connected to suction. There was no untoward events overnight. Objective - Vital Signs/Intake and Output Vital Signs (last 24 hours): Temp Pulse Resp BP Pulse Ox 100.2 F H 109 H 14 141/72 99 04/22/17 04:00 04/22/17 06:38 04/22/17 06:38 04/22/17 06:38 04/22/17 06:38 Intake and Output: 04/22/17 04/22/17 06:59 18:59 Intake Total 598 Output Total 900 Balance -302 - Medications Medications: Current Medications Acetaminophen (Tylenol 325mg Tab) 650 mg PO Q6 PRN PRN Reason: fever > 100.4 Last Admin: 04/15/17 23:58 Dose: 650 mg Acetaminophen (Tylenol 650 Mg Supp) 650 mg NM Q4 PRN PRN Reason: Fever >100.4 F Last Admin: 04/21/17 21:00 Dose: 650 mg Albuterol/Ipratropium (Duoneb 3 Mg/0.5 Mg (3 Ml) Ud) 3 ml INH RQ6 PRN PRN Reason: Shortness of Breath Apixaban (Eliquis) 2.5 mg PO BID [facility] PRN Reason: Protocol Last Admin: 04/22/17 08:42 Dose: 2.5 mg Aspirin (Aspirin Chewable) 81 mg PO DAILY [facility] Last Admin: 04/22/17 08:41 Dose: 81 mg Atorvastatin Calcium (Lipitor) 40 mg PO HS [facility] Last Admin: 04/22/17 00:58 Dose: Not Given Bacitracin (Bacitracin Oint) 1 applic TOP BID [facility] Last Admin: 04/22/17 08:41 Dose: 1 applic Enalapril Maleate (Vasotec) 2.5 mg PO BID [facility] Last Admin: 04/22/17 08:43 Dose: 2.5 mg Glipizide (Glucotrol Xl) 10 mg PO BRKDIN [facility] Last Admin: 04/22/17 08:45 Dose: Not Given Valproate Sodium 500 mg/ (Sodium Chloride) 105 mls @ 105 mls/hr IVPB Q12 [facility] PRN Reason: As Directed Last Admin: 04/21/17 20:00 Dose: 105 mls/hr Piperacillin Sod/Tazobactam (Sod 3.375 gm/ Sodium Chloride) 100 mls @ 100 mls/ hr IVPB Q6 [facility] PRN Reason: Protocol Last Admin: 04/22/17 03:35 Dose: 100 mls/hr Propofol (Diprivan) 1,000 mg in 100 mls @ 2.313 mls/hr IV .Q24H [facility]RIAN; 5 MCG/KG/ MIN PRN Reason: Protocol Stop: 04/22/17 17:46 Last Admin: 04/21/17 21:55 Dose: 8 mcg/kg/min, 3.701 mls/hr Vancomycin HCl 1 gm/ Sodium (Chloride) 250 mls @ 166.667 mls/hr IVPB DAILY@ 2000 [facility]AN PRN Reason: Protocol Last Admin: 04/21/17 20:53 Dose: 166.667 mls/hr Insulin Detemir (Levemir) 20 units SC HS [facility] Last Admin: 04/21/17 21:54 Dose: 20 u Insulin Human Regular (Humulin R) 0 units SC ACHS [facility] PRN Reason: Protocol Last Admin: 04/22/17 06:37 Dose: 2 units Pantoprazole Sodium (Protonix Inj) 40 mg IVP DAILY [facility] Repaglinide (Prandin) 1 mg PO TID [facility] Last Admin: 04/22/17 08:43 Dose: Not Given Sitagliptin Phosphate (Januvia) 50 mg PO BID [facility] Last Admin: 04/22/17 08:43 Dose: Not Given - Labs Labs: 04/22/17 04:35 04/22/17 04:35 PT 9.7 Seconds (9.8-13.1) L 04/12/17 21:15 INR 0.9 (0.9-1.2) 04/12/17 21:15 APTT 26.0 Seconds (25.6-37.1) 04/12/17 21:15 - Constitutional Appears: No Acute Distress - Head Exam Head Exam: NORMAL INSPECTION - Eye Exam Additional comments: sluggish to react - Neurological Exam Neuro motor strength exam: Left Upper Extremity: 2/1, Right Upper Extremity: 2/1 , Left Lower Extremity: 2/1, Right Lower Extremity: 2/1 Additional comments: GCS-4T. Assessment and Plan (1) CVA (cerebral vascular accident) Assessment & Plan: Case discussed with Dr. Lyons, continue all current medical regimen. Recommend normotensive, keep head of bed elevated by at least 15 degrees. Status: Acute
[2017-04-22] MEDS: Valproate 500 MG in Sodium Chloride 0.9% 100 ML IVPB SCH ×2 (10:00→20:46)
--- NOTE | 2017-04-22 10:55 | RAD ---
PROCEDURE: CHEST RADIOGRAPH, 1 VIEW HISTORY: endotracheal intubation/mec ventilation COMPARISON: Chest radiograph dated 04/21/2017 FINDINGS: LUNGS: Pulmonary vascular congestion. Right basilar atelectasis. PLEURA: No pneumothorax or pleural fluid seen. CARDIOVASCULAR: Atherosclerotic aortic calcifications. Cardiomediastinal silhouette unchanged. OSSEOUS STRUCTURES: Unchanged. VISUALIZED UPPER ABDOMEN: Normal. OTHER FINDINGS: Endotracheal and enteric tubes, unchanged. IMPRESSION: No significant interval change.
--- NOTE | 2017-04-22 13:41 | CP.PCM.PN ---
Subjective - Date & Time of Evaluation Date of Evaluation: 04/22/17 Time of Evaluation: 15:00 - Subjective Subjective: ID note- Pt. seen and examined today in ICU. remains intubated and sedated. high fevers today. Objective - Vital Signs/Intake and Output Vital Signs (last 24 hours): Temp Pulse Resp BP Pulse Ox 102.3 F H 105 H 12 145/71 99 04/22/17 08:00 04/22/17 08:00 04/22/17 08:00 04/22/17 08:00 04/22/17 08:00 Intake and Output: 04/22/17 04/22/17 06:59 18:59 Intake Total 598 Output Total 900 Balance -302 - Medications Medications: Current Medications Acetaminophen (Tylenol 325mg Tab) 650 mg PO Q6 PRN PRN Reason: fever > 100.4 Last Admin: 04/15/17 23:58 Dose: 650 mg Acetaminophen (Tylenol 650 Mg Supp) 650 mg MT Q4 PRN PRN Reason: Fever >100.4 F Last Admin: 04/21/17 21:00 Dose: 650 mg Albuterol/Ipratropium (Duoneb 3 Mg/0.5 Mg (3 Ml) Ud) 3 ml INH RQ6 PRN PRN Reason: Shortness of Breath Apixaban (Eliquis) 2.5 mg PO BID [facility] PRN Reason: Protocol Last Admin: 04/22/17 08:42 Dose: 2.5 mg Aspirin (Aspirin Chewable) 81 mg PO DAILY [facility] Last Admin: 04/22/17 08:41 Dose: 81 mg Atorvastatin Calcium (Lipitor) 40 mg PO HS [facility] Last Admin: 04/22/17 00:58 Dose: Not Given Bacitracin (Bacitracin Oint) 1 applic TOP BID [facility] Last Admin: 04/22/17 08:41 Dose: 1 applic Enalapril Maleate (Vasotec) 2.5 mg PO BID [facility] Last Admin: 04/22/17 08:43 Dose: 2.5 mg Glipizide (Glucotrol Xl) 10 mg PO BRKDIN [facility] Last Admin: 04/22/17 08:45 Dose: Not Given Valproate Sodium 500 mg/ (Sodium Chloride) 105 mls @ 105 mls/hr IVPB Q12 [facility] PRN Reason: As Directed Last Admin: 04/21/17 20:00 Dose: 105 mls/hr Piperacillin Sod/Tazobactam (Sod 3.375 gm/ Sodium Chloride) 100 mls @ 100 mls/ hr IVPB Q6 [facility] PRN Reason: Protocol Last Admin: 04/22/17 03:35 Dose: 100 mls/hr Propofol (Diprivan) 1,000 mg in 100 mls @ 2.313 mls/hr IV .Q24H BRIAN; 5 MCG/KG/ MIN PRN Reason: Protocol Stop: 04/22/17 17:46 Last Admin: 04/21/17 21:55 Dose: 8 mcg/kg/min, 3.701 mls/hr Vancomycin HCl 1 gm/ Sodium (Chloride) 250 mls @ 166.667 mls/hr IVPB DAILY@ 2000 [facility] PRN Reason: Protocol Last Admin: 04/21/17 20:53 Dose: 166.667 mls/hr Insulin Detemir (Levemir) 20 units SC HS [facility] Last Admin: 04/21/17 21:54 Dose: 20 u Insulin Human Regular (Humulin R) 0 units SC ACHS [facility] PRN Reason: Protocol Last Admin: 04/22/17 06:37 Dose: 2 units Pantoprazole Sodium (Protonix Inj) 40 mg IVP DAILY [facility] Repaglinide (Prandin) 1 mg PO TID [facility] Last Admin: 04/22/17 08:43 Dose: Not Given Sitagliptin Phosphate (Januvia) 50 mg PO BID [facility] Last Admin: 04/22/17 08:43 Dose: Not Given - Labs Labs: - Additional Findings Additional findings: - Constitutional Appears: Additional comments: Intubated and sedated - Head Exam Head Exam: ATRAUMATIC - ENT Exam Additional comments: ET tube in place - Neck Exam Neck exam: Positive for: Full Rom Additional comments: supple - Respiratory Exam Additional comments: decreased breath sounds at right base - Cardiovascular Exam Cardiovascular Exam: RRR, +S1, +S2 - GI/Abdominal Exam GI & Abdominal Exam: Normal Bowel Sounds, Soft Additional comments: ND, NT - Extremities Exam Additional comments: no edema b/l LE, no ulcerations - Neurological Exam Additional comments: sedated leslie with cloudy urine Laboratory Results - last 72 hr 04/19/17 04/20/17 04/20/17 21:10 04:15 04:15 WBC 4.8 RBC 4.37 Hgb 12.2 Hct 38.5 MCV 88.2 MCH 28.0 MCHC 31.7 L RDW 14.6 H Plt Count 200 MPV Neut % (Auto) Lymph % (Auto) [place] % (Auto) Eos % (Auto) Baso % (Auto) Neut # (Auto) Lymph # (Auto) [place] # (Auto) Eos # (Auto) Baso # (Auto) D-Dimer, Quantitative pCO2 pO2 HCO3 ABG pH ABG Total CO2 ABG O2 Saturation ABG O2 Content ABG Base Excess ABG Hemoglobin ABG Carboxyhemoglobin POC ABG HHb (Measured) ABG Methemoglobin ABG O2 Capacity Boaz Test A-a O2 Difference Hgb O2 Saturation Vent Mode Mechanical Rate FiO2 Tidal Volume PEEP Inspiratory BiPAP Expiratory BiPAP Sodium 143 Potassium 3.2 L Chloride 103 Carbon Dioxide 32 H Anion Gap 11 BUN 8 Creatinine 0.5 L Est GFR ( Amer) > 60 Est GFR (Non-Af Amer) > 60 POC Glucose (mg/dL) 120 H Random Glucose 122 H Calcium 8.6 Magnesium 04/20/17 04/20/17 04/20/17 05:31 13:45 16:45 WBC RBC Hgb Hct MCV MCH MCHC RDW Plt Count MPV Neut % (Auto) Lymph % (Auto) [place] % (Auto) Eos % (Auto) Baso % (Auto) Neut # (Auto) Lymph # (Auto) [place] # (Auto) Eos # (Auto) Baso # (Auto) D-Dimer, Quantitative pCO2 pO2 HCO3 ABG pH ABG Total CO2 ABG O2 Saturation ABG O2 Content ABG Base Excess ABG Hemoglobin ABG Carboxyhemoglobin POC ABG HHb (Measured) ABG Methemoglobin ABG O2 Capacity Boaz Test A-a O2 Difference Hgb O2 Saturation Vent Mode Mechanical Rate FiO2 Tidal Volume PEEP Inspiratory BiPAP Expiratory BiPAP Sodium Potassium Chloride Carbon Dioxide Anion Gap BUN Creatinine Est GFR ( Amer) Est GFR (Non-Af Amer) POC Glucose (mg/dL) 118 H 192 H 179 H Random Glucose Calcium Magnesium 04/20/17 04/21/17 04/21/17 21:29 04:30 05:00 WBC 8.5 D RBC 4.78 Hgb 13.8 Hct 42.3 MCV 88.5 MCH 29.0 MCHC 32.7 L RDW 14.7 H Plt Count 223 MPV Neut % (Auto) Lymph % (Auto) [place] % (Auto) Eos % (Auto) Baso % (Auto) Neut # (Auto) Lymph # (Auto) [place] # (Auto) Eos # (Auto) Baso # (Auto) D-Dimer, Quantitative pCO2 pO2 HCO3 ABG pH ABG Total CO2 ABG O2 Saturation ABG O2 Content ABG Base Excess ABG Hemoglobin ABG Carboxyhemoglobin POC ABG HHb (Measured) ABG Methemoglobin ABG O2 Capacity Boaz Test A-a O2 Difference Hgb O2 Saturation Vent Mode Mechanical Rate FiO2 Tidal Volume PEEP Inspiratory BiPAP Expiratory BiPAP Sodium Potassium Chloride Carbon Dioxide Anion Gap BUN Creatinine Est GFR ( Amer) Est GFR (Non-Af Amer) POC Glucose (mg/dL) 216 H 230 H Random Glucose Calcium Magnesium 04/21/17 04/21/17 04/21/17 05:00 05:23 05:53 WBC RBC Hgb Hct MCV MCH MCHC RDW Plt Count MPV Neut % (Auto) Lymph % (Auto) [place] % (Auto) Eos % (Auto) Baso % (Auto) Neut # (Auto) Lymph # (Auto) [place] # (Auto) Eos # (Auto) Baso # (Auto) D-Dimer, Quantitative 1616 H pCO2 63 H pO2 74 L HCO3 30.8 H ABG pH 7.36 ABG Total CO2 37.5 H ABG O2 Saturation 96.0 ABG O2 Content 19.1 ABG Base Excess 7.7 H ABG Hemoglobin 14.6 ABG Carboxyhemoglobin 1.6 H POC ABG HHb (Measured) 3.9 ABG Methemoglobin 1.5 ABG O2 Capacity 19.9 Boaz Test Yes A-a O2 Difference 560.0 Hgb O2 Saturation 93.0 L Vent Mode Mechanical Rate 14 FiO2 100.0 Tidal Volume PEEP Inspiratory BiPAP 14 Expiratory BiPAP 8 Sodium 145 Potassium 4.1 Chloride 102 Carbon Dioxide 35 H Anion Gap 12 BUN 14 Creatinine 0.6 L Est GFR ( Amer) > 60 Est GFR (Non-Af Amer) > 60 POC Glucose (mg/dL) Random Glucose 292 H Calcium 9.1 Magnesium 2.1 04/21/17 04/21/17 04/21/17 05:56 11:44 17:00 WBC RBC Hgb Hct MCV MCH MCHC RDW Plt Count MPV Neut % (Auto) Lymph % (Auto) [place] % (Auto) Eos % (Auto) Baso % (Auto) Neut # (Auto) Lymph # (Auto) [place] # (Auto) Eos # (Auto) Baso # (Auto) D-Dimer, Quantitative pCO2 pO2 HCO3 ABG pH ABG Total CO2 ABG O2 Saturation ABG O2 Content ABG Base Excess ABG Hemoglobin ABG Carboxyhemoglobin POC ABG HHb (Measured) ABG Methemoglobin ABG O2 Capacity Boaz Test A-a O2 Difference Hgb O2 Saturation Vent Mode Mechanical Rate FiO2 Tidal Volume PEEP Inspiratory BiPAP Expiratory BiPAP Sodium Potassium Chloride Carbon Dioxide Anion Gap BUN Creatinine Est GFR ( Amer) Est GFR (Non-Af Amer) POC Glucose (mg/dL) 267 H 280 H 319 H Random Glucose Calcium Magnesium 04/21/17 04/22/17 04/22/17 21:07 04:35 04:35 WBC 9.4 RBC 4.74 Hgb 13.5 Hct 42.3 MCV 89.2 MCH 28.5 MCHC 31.9 L RDW 14.9 H Plt Count 202 MPV 10.2 Neut % (Auto) 76.5 H Lymph % (Auto) 12.8 L Bosque % (Auto) 10.3 H Eos % (Auto) 0.0 Baso % (Auto) 0.4 Neut # (Auto) 7.2 H Lymph # (Auto) 1.2 [place] # (Auto) 1.0 H Eos # (Auto) 0.0 Baso # (Auto) 0.0 D-Dimer, Quantitative pCO2 pO2 HCO3 ABG pH ABG Total CO2 ABG O2 Saturation ABG O2 Content ABG Base Excess ABG Hemoglobin ABG Carboxyhemoglobin POC ABG HHb (Measured) ABG Methemoglobin ABG O2 Capacity Boaz Test A-a O2 Difference Hgb O2 Saturation Vent Mode Mechanical Rate FiO2 Tidal Volume PEEP Inspiratory BiPAP Expiratory BiPAP Sodium 148 Potassium 4.1 Chloride 105 Carbon Dioxide 31 H Anion Gap 16 BUN 32 H Creatinine 0.7 Est GFR ( Amer) > 60 Est GFR (Non-Af Amer) > 60 POC Glucose (mg/dL) 292 H Random Glucose 298 H Calcium 8.7 Magnesium 04/22/17 04/22/17 04/22/17 05:22 05:52 11:59 WBC RBC Hgb Hct MCV MCH MCHC RDW Plt Count MPV Neut % (Auto) Lymph % (Auto) [place] % (Auto) Eos % (Auto) Baso % (Auto) Neut # (Auto) Lymph # (Auto) [place] # (Auto) Eos # (Auto) Baso # (Auto) D-Dimer, Quantitative pCO2 43 pO2 140 H HCO3 34.2 H ABG pH 7.53 H ABG Total CO2 37.2 H ABG O2 Saturation 99.6 H ABG O2 Content 18.5 ABG Base Excess 11.9 H ABG Hemoglobin 13.4 ABG Carboxyhemoglobin 1.3 POC ABG HHb (Measured) 0.4 ABG Methemoglobin 1.6 ABG O2 Capacity 18.6 Boaz Test Yes A-a O2 Difference 377.0 Hgb O2 Saturation 96.7 Vent Mode A/c Mechanical Rate 12 FiO2 80.0 Tidal Volume 500 PEEP 5 Inspiratory BiPAP Expiratory BiPAP Sodium Potassium Chloride Carbon Dioxide Anion Gap BUN Creatinine Est GFR ( Amer) Est GFR (Non-Af Amer) POC Glucose (mg/dL) 243 H 186 H Random Glucose Calcium Magnesium Microbiology 04/21/17 05:46 Trachasp Gram Stain - Preliminary 04/20/17 07:55 Urine,Clean Catch Urine Culture - Final Escherichia Coli 04/15/17 06:14 Blood-Venous Blood Culture - Final NO GROWTH AFTER 5 DAYS 04/15/17 06:14 Blood-Venous Gram Stain - Final TEST NOT PERFORMED 04/15/17 06:14 Blood-Venous Blood Culture - Final NO GROWTH AFTER 5 DAYS 04/15/17 06:14 Blood-Venous Gram Stain - Final TEST NOT PERFORMED 04/16/17 08:25 Naris MRSA Culture (Admit) - Final MRSA NOT DETECTED 04/12/17 21:15 Urine,Clean Catch Urine Culture - Final > 100,000 CFU/ML. MULTIPLE SPECIES. SUGGEST REPEAT SPECIMEM. Accession No. : [id number] Patient Name / ID : SAFIA LIMON / [id number] Exam Date : 04/22/2017 04:14:12 ( Approved ) Study Comment : Sex / Age : F / 72Y Creator : Alex Stephen MD Dictator : Alex Stephen MD Food Quality Tester : Terminal Makeup Operator : Alex Stephen MD Approver2 : Report Date : 04/22/2017 10:49:01 My Comment : PROCEDURE: CHEST RADIOGRAPH, 1 VIEW HISTORY: endotracheal intubation/mec ventilation COMPARISON: Chest radiograph dated 04/21/2017 FINDINGS: LUNGS: Pulmonary vascular congestion. Right basilar atelectasis. PLEURA: No pneumothorax or pleural fluid seen. CARDIOVASCULAR: Atherosclerotic aortic calcifications. Cardiomediastinal silhouette unchanged. OSSEOUS STRUCTURES: Unchanged. VISUALIZED UPPER ABDOMEN: Normal. OTHER FINDINGS: Endotracheal and enteric tubes, unchanged. IMPRESSION: No significant interval change. Assessment and Plan (1) CVA (cerebral vascular accident) Status: Acute (2) Type 2 diabetes mellitus with pressure callus Status: Acute (3) Aspiration pneumonia Status: Acute (4) UTI (urinary tract infection) Status: Acute - Assessment and Plan (Free Text) Assessment: A/P- 72 year old female with DM Ii, HTN was admitted with mental status change and was found to have acute ischemic stroke but was doing better and was transferred to step down unit, however, had SEED ANALYST and for resp distress and is now post intubation and back in ICU . resp distress most likely secondary to aspiration pneumonitis high fevers today could be central vs from UTI vs asp pneumonitis but normal wbc and no left shift normal wbc count cxr report- RLL pneumonia. blood cx- neg UA- neg urine cx -e.coli pansensitive influenza- negative Plan- advise to cover with broad spectrum antibiotics to cover for hospital acquired pathogens as well as anaerobes for aspiration pneumonitis. advise to d/c zosyn and start meropnem today based on the e.coli ONEAL for zosyn that was reported and also meropnem has broader gram neg covergae. advise to continue with IV vancomycin for HAP vs pneumonitis. day #2 keep trough <15. fevers could also be central fevers in light of recent CVA and the fact that she has normal wbc and normal diff. advise to change leslie catheter today to a new one and check 2 more blood cx. ICU time spent 45 min.
--- NOTE | 2017-04-22 15:44 | CP.PCM.PN ---
Subjective - Date & Time of Evaluation Date of Evaluation: 04/22/17 Time of Evaluation: 15:40 - Subjective Subjective: F/U respiratory Failure intubated , sedated Objective - Vital Signs/Intake and Output Vital Signs (last 24 hours): Temp Pulse Resp BP Pulse Ox 102.3 F H 105 H 12 145/71 99 04/22/17 08:00 04/22/17 08:00 04/22/17 08:00 04/22/17 08:00 04/22/17 08:00 Intake and Output: 04/22/17 04/22/17 06:59 18:59 Intake Total 598 Output Total 900 Balance -302 - Medications Medications: Current Medications Acetaminophen (Tylenol 325mg Tab) 650 mg PO Q6 PRN PRN Reason: fever > 100.4 Last Admin: 04/15/17 23:58 Dose: 650 mg Acetaminophen (Tylenol 650 Mg Supp) 650 mg DE Q4 PRN PRN Reason: Fever >100.4 F Last Admin: 04/21/17 21:00 Dose: 650 mg Albuterol/Ipratropium (Duoneb 3 Mg/0.5 Mg (3 Ml) Ud) 3 ml INH RQ6 PRN PRN Reason: Shortness of Breath Apixaban (Eliquis) 2.5 mg PO BID [facility] PRN Reason: Protocol Last Admin: 04/22/17 08:42 Dose: 2.5 mg Aspirin (Aspirin Chewable) 81 mg PO DAILY [facility] Last Admin: 04/22/17 08:41 Dose: 81 mg Atorvastatin Calcium (Lipitor) 40 mg PO HS [facility] Last Admin: 04/22/17 00:58 Dose: Not Given Bacitracin (Bacitracin Oint) 1 applic TOP BID [facility] Last Admin: 04/22/17 08:41 Dose: 1 applic Enalapril Maleate (Vasotec) 2.5 mg PO BID [facility] Last Admin: 04/22/17 08:43 Dose: 2.5 mg Glipizide (Glucotrol Xl) 10 mg PO BRKDIN [facility] Last Admin: 04/22/17 08:45 Dose: Not Given Valproate Sodium 500 mg/ (Sodium Chloride) 105 mls @ 105 mls/hr IVPB Q12 [facility] PRN Reason: As Directed Last Admin: 04/21/17 20:00 Dose: 105 mls/hr Piperacillin Sod/Tazobactam (Sod 3.375 gm/ Sodium Chloride) 100 mls @ 100 mls/ hr IVPB Q6 [facility] PRN Reason: Protocol Last Admin: 04/22/17 03:35 Dose: 100 mls/hr Propofol (Diprivan) 1,000 mg in 100 mls @ 2.313 mls/hr IV .Q24H BRIAN; 5 MCG/KG/ MIN PRN Reason: Protocol Stop: 04/22/17 17:46 Last Admin: 04/21/17 21:55 Dose: 8 mcg/kg/min, 3.701 mls/hr Vancomycin HCl 1 gm/ Sodium (Chloride) 250 mls @ 166.667 mls/hr IVPB DAILY@ 2000 [facility] PRN Reason: Protocol Last Admin: 04/21/17 20:53 Dose: 166.667 mls/hr Insulin Detemir (Levemir) 20 units SC HS [facility] Last Admin: 04/21/17 21:54 Dose: 20 u Insulin Human Regular (Humulin R) 0 units SC ACHS [facility] PRN Reason: Protocol Last Admin: 04/22/17 06:37 Dose: 2 units Pantoprazole Sodium (Protonix Inj) 40 mg IVP DAILY [facility] Repaglinide (Prandin) 1 mg PO TID [facility] Last Admin: 04/22/17 08:43 Dose: Not Given Sitagliptin Phosphate (Januvia) 50 mg PO BID [facility] Last Admin: 04/22/17 08:43 Dose: Not Given - Labs Labs: 04/22/17 04:35 04/22/17 04:35 PT 9.7 Seconds (9.8-13.1) L 04/12/17 21:15 INR 0.9 (0.9-1.2) 04/12/17 21:15 APTT 26.0 Seconds (25.6-37.1) 04/12/17 21:15 - Constitutional Appears: No Acute Distress (Sedated) - Head Exam Head Exam: NORMAL INSPECTION - ENT Exam Additional comments: Intubated - Neck Exam Neck Exam: Normal Inspection - Respiratory Exam Respiratory Exam: Decreased Breath Sounds (R base) - Cardiovascular Exam Cardiovascular Exam: REGULAR RHYTHM - GI/Abdominal Exam GI & Abdominal Exam: Soft, Hyperactive Bowel Sounds - Extremities Exam Extremities Exam: Normal Inspection - Back Exam Back Exam: NORMAL INSPECTION - Neurological Exam Additional comments: Intubated, sedated - Psychiatric Exam Additional comments: Sedated - Skin Skin Exam: Warm Assessment and Plan (1) Respiratory failure Status: Acute (2) Aspiration pneumonia Status: Acute (3) CVA (cerebral vascular accident) Status: Acute - Assessment and Plan (Free Text) Plan: continue ventilatory support ,attempt of weaning , Atb as per ID testing consultant ICU Time: 40 min.
--- NOTE | 2017-04-22 16:16 | CP.CCUPN ---
<Sharyn Hidalgo - Last Filed: 04/22/17 16:32> CCU Subjective - Physician Review Subjective (Free Text): 04/22/17 This is a 72 y/o F with PMHx of HTN, HLD, DM, CAD and bilateral hallus ulceration. Patient was brought in via EMS to ER on 04/12 for evaluation of altered mental status, onset a few months ago. Patient was admitted to the telemetry unit with acute cerebral vascular accident. On 04/17 patient developed change in mental status/left upper extremity weakness, CODE STROKE was called and was transferred to ICU. On 04/20 patient was transferred back to Telemetry unit. Patient was seen and examined with elementary school teacher attending during ICU round this morning. On PRVC: Rate: 12, TV: 500, PEEP: 5, FIO2 80 %. Had fever of 102.3 F, HR105, 99-100 % oxygen sat on FiO2 80 %, RR:12 Critical Care Time Spent (in minutes): 45 CCU Objective - Vital Signs / Intake & Output Intake and Output (Last 8hrs): Intake & Output 04/22/17 04/22/17 04/22/17 06:59 14:59 22:59 Intake Total 136 Output Total 750 Balance -614 Intake: IV 36 Intake, Piggyback 100 Oral 0 Output: Gastric Amount 250 Right Nares 250 Urine 500 Urine, Voided 500 - Physical Exam Head: Positive for: Atraumatic, Normocephalic Pupils: Positive for: PERRL Mouth: Positive for: Moist Mucous Membranes Respiratory/Chest: Positive for: Clear to Auscultation. Negative for: Respiratory Distress, Wheezes, Rhonchi Abdomen: Positive for: Normal Bowel Sounds. Negative for: Tenderness, Distention, Guarding Upper Extremity: Positive for: Capillary Refill < 2s. Negative for: Cyanosis Lower Extremity: Negative for: Edema Skin: Positive for: Warm, Dry, Pale Psychiatric: Positive for: Other (intubated on mechanical ventilation, sedated) - Medications Active Medications: Active Medications Generic Name Dose Route Start Last Admin Trade Name Freq PRN Reason Stop Dose Admin Acetaminophen 650 mg 04/15/17 23:34 04/15/17 23:58 Tylenol 325mg Tab PO 650 mg Q6 PRN Administration fever > 100.4 Acetaminophen 650 mg 04/21/17 20:53 04/21/17 21:00 Tylenol 650 Mg Supp NE 650 mg Q4 PRN Administration Fever >100.4 F Albuterol/Ipratropium 3 ml 04/21/17 05:11 Duoneb 3 Mg/0.5 Mg (3 Ml) Ud INH RQ6 PRN Shortness of Breath Apixaban 2.5 mg 04/17/17 17:00 04/22/17 08:42 Eliquis PO 2.5 mg BID [facility] Administration Protocol Aspirin 81 mg 04/19/17 13:00 04/22/17 08:41 Aspirin Chewable PO 81 mg DAILY BRIAN Administration Atorvastatin Calcium 40 mg 04/13/17 22:00 04/22/17 00:58 Lipitor PO Not Given HS [facility] Bacitracin 1 applic 04/16/17 09:00 04/22/17 08:41 Bacitracin Oint TOP 1 applic BID BRIAN Administration Enalapril Maleate 2.5 mg 04/19/17 17:00 04/22/17 08:43 Vasotec PO 2.5 mg BID BRIAN Administration Glipizide 10 mg 04/14/17 08:00 04/22/17 08:45 Glucotrol Xl PO Not Given BRKDIN [facility] Valproate Sodium 500 mg/ 105 mls @ 105 mls/hr 04/17/17 21:00 04/21/17 20:00 Sodium Chloride IVPB 105 mls/hr Q12 BRIAN Administration As Directed Piperacillin Sod/Tazobactam 100 mls @ 100 mls/hr 04/21/17 10:00 04/22/17 03: 35 Sod 3.375 gm/ Sodium Chloride IVPB 100 mls/hr Q6 BRIAN Administration Protocol Propofol 1,000 mg in 100 mls @ 2.313 mls/hr 04/21/17 17:45 04/21/17 21:55 Diprivan IV 04/22/17 17:46 8 mcg/kg/min .Q24H BRIAN 3.701 mls/hr Protocol Administration 5 MCG/KG/MIN Vancomycin HCl 1 gm/ Sodium 250 mls @ 166.667 mls/hr 04/21/17 20:00 04/21/17 20:53 Chloride IVPB 166.667 mls/hr DAILY@2000 [facility] Administration Protocol Insulin Detemir 20 units 04/15/17 16:43 04/21/17 21:54 Levemir SC 20 u HS BRIAN Administration Insulin Human Regular 0 units 04/13/17 07:30 04/22/17 06:37 Humulin R SC 2 units ACHS BRIAN Administration Protocol Pantoprazole Sodium 40 mg 04/22/17 09:00 Protonix Inj IVP DAILY [facility] Repaglinide 1 mg 04/14/17 09:00 04/22/17 08:43 Prandin PO Not Given TID BRIAN Sitagliptin Phosphate 50 mg 04/14/17 09:00 04/22/17 08:43 Januvia PO Not Given BID BRIAN - Patient Studies Lab Studies: Microbiology Studies 04/21/17 05:46 Gram Stain - Preliminary Trachasp 04/20/17 07:55 Urine Culture - Final Urine,Clean Catch Escherichia Coli Lab Studies 04/22/17 04/22/17 04/22/17 Range/Units 11:59 05:52 05:22 WBC (4.8-10.8) K/uL RBC (3.80-5.20) Mil/uL Hgb (12.0-16.0) g/dL Hct (34.0-47.0) % MCV (81.0-99.0) fl MCH (27.0-31.0) pg MCHC (33.0-37.0) g/dL RDW (11.5-14.5) % Plt Count (130-400) K/uL MPV (7.2-11.7) fl Neut % (Auto) (50.0-75.0) % Lymph % (Auto) (20.0-40.0) % [place] % (Auto) (0.0-10.0) % Eos % (Auto) (0.0-4.0) % Baso % (Auto) (0.0-2.0) % Neut # (Auto) (1.8-7.0) K/uL Lymph # (Auto) (1.0-4.3) K/uL [place] # (Auto) (0.0-0.8) K/uL Eos # (Auto) (0.0-0.7) K/uL Baso # (Auto) (0.0-0.2) K/uL pCO2 43 (35-45) mm/Hg pO2 140 H (80-100) mm/Hg HCO3 34.2 H (21-28) mmol/L ABG pH 7.53 H (7.35-7.45) ABG Total CO2 37.2 H (22-28) mmol/L ABG O2 Saturation 99.6 H (95-98) % ABG O2 Content 18.5 (15-23) ML/dL ABG Base Excess 11.9 H (-2.0-3.0) mmol/L ABG Hemoglobin 13.4 (11.7-17.4) g/dL ABG Carboxyhemoglobin 1.3 (0.5-1.5) % POC ABG HHb (Measured) 0.4 (0.0-5.0) % ABG Methemoglobin 1.6 (0.0-3.0) % ABG O2 Capacity 18.6 (16-24) mL/dL Boaz Test Yes A-a O2 Difference 377.0 mm/Hg Hgb O2 Saturation 96.7 (95.0-98.0) % Vent Mode A/c Mechanical Rate 12 FiO2 80.0 % Tidal Volume 500 PEEP 5 Sodium (132-148) mmol/l Potassium (3.6-5.0) MMOL/L Chloride (98-107) mmol/L Carbon Dioxide (22-30) mmol/L Anion Gap (10-20) BUN (7-17) mg/dl Creatinine (0.7-1.2) mg/dl Est GFR ( Amer) Est GFR (Non-Af Amer) POC Glucose (mg/dL) 186 H 243 H (65-110) mg/dL Random Glucose (65-105) mg/dL Calcium (8.4-10.2) mg/dL 04/22/17 04/22/17 04/21/17 Range/Units 04:35 04:35 21:07 WBC 9.4 (4.8-10.8) K/uL RBC 4.74 (3.80-5.20) Mil/uL Hgb 13.5 (12.0-16.0) g/dL Hct 42.3 (34.0-47.0) % MCV 89.2 (81.0-99.0) fl MCH 28.5 (27.0-31.0) pg MCHC 31.9 L (33.0-37.0) g/dL RDW 14.9 H (11.5-14.5) % Plt Count 202 (130-400) K/uL MPV 10.2 (7.2-11.7) fl Neut % (Auto) 76.5 H (50.0-75.0) % Lymph % (Auto) 12.8 L (20.0-40.0) % [place] % (Auto) 10.3 H (0.0-10.0) % Eos % (Auto) 0.0 (0.0-4.0) % Baso % (Auto) 0.4 (0.0-2.0) % Neut # (Auto) 7.2 H (1.8-7.0) K/uL Lymph # (Auto) 1.2 (1.0-4.3) K/uL [place] # (Auto) 1.0 H (0.0-0.8) K/uL Eos # (Auto) 0.0 (0.0-0.7) K/uL Baso # (Auto) 0.0 (0.0-0.2) K/uL pCO2 (35-45) mm/Hg pO2 (80-100) mm/Hg HCO3 (21-28) mmol/L ABG pH (7.35-7.45) ABG Total CO2 (22-28) mmol/L ABG O2 Saturation (95-98) % ABG O2 Content (15-23) ML/dL ABG Base Excess (-2.0-3.0) mmol/L ABG Hemoglobin (11.7-17.4) g/dL ABG Carboxyhemoglobin (0.5-1.5) % POC ABG HHb (Measured) (0.0-5.0) % ABG Methemoglobin (0.0-3.0) % ABG O2 Capacity (16-24) mL/dL Boaz Test A-a O2 Difference mm/Hg Hgb O2 Saturation (95.0-98.0) % Vent Mode Mechanical Rate FiO2 % Tidal Volume PEEP Sodium 148 (132-148) mmol/l Potassium 4.1 (3.6-5.0) MMOL/L Chloride 105 (98-107) mmol/L Carbon Dioxide 31 H (22-30) mmol/L Anion Gap 16 (10-20) BUN 32 H (7-17) mg/dl Creatinine 0.7 (0.7-1.2) mg/dl Est GFR ( Amer) > 60 Est GFR (Non-Af Amer) > 60 POC Glucose (mg/dL) 292 H (65-110) mg/dL Random Glucose 298 H (65-105) mg/dL Calcium 8.7 (8.4-10.2) mg/dL 04/21/17 Range/Units 17:00 WBC (4.8-10.8) K/uL RBC (3.80-5.20) Mil/uL Hgb (12.0-16.0) g/dL Hct (34.0-47.0) % MCV (81.0-99.0) fl MCH (27.0-31.0) pg MCHC (33.0-37.0) g/dL RDW (11.5-14.5) % Plt Count (130-400) K/uL MPV (7.2-11.7) fl Neut % (Auto) (50.0-75.0) % Lymph % (Auto) (20.0-40.0) % [place] % (Auto) (0.0-10.0) % Eos % (Auto) (0.0-4.0) % Baso % (Auto) (0.0-2.0) % Neut # (Auto) (1.8-7.0) K/uL Lymph # (Auto) (1.0-4.3) K/uL [place] # (Auto) (0.0-0.8) K/uL Eos # (Auto) (0.0-0.7) K/uL Baso # (Auto) (0.0-0.2) K/uL pCO2 (35-45) mm/Hg pO2 (80-100) mm/Hg HCO3 (21-28) mmol/L ABG pH (7.35-7.45) ABG Total CO2 (22-28) mmol/L ABG O2 Saturation (95-98) % ABG O2 Content (15-23) ML/dL ABG Base Excess (-2.0-3.0) mmol/L ABG Hemoglobin (11.7-17.4) g/dL ABG Carboxyhemoglobin (0.5-1.5) % POC ABG HHb (Measured) (0.0-5.0) % ABG Methemoglobin (0.0-3.0) % ABG O2 Capacity (16-24) mL/dL Boaz Test A-a O2 Difference mm/Hg Hgb O2 Saturation (95.0-98.0) % Vent Mode Mechanical Rate FiO2 % Tidal Volume PEEP Sodium (132-148) mmol/l Potassium (3.6-5.0) MMOL/L Chloride (98-107) mmol/L Carbon Dioxide (22-30) mmol/L Anion Gap (10-20) BUN (7-17) mg/dl Creatinine (0.7-1.2) mg/dl Est GFR ( Amer) Est GFR (Non-Af Amer) POC Glucose (mg/dL) 319 H (65-110) mg/dL Random Glucose (65-105) mg/dL Calcium (8.4-10.2) mg/dL Laboratory Results - last 24 hr 04/21/17 04/21/17 04/22/17 17:00 21:07 04:35 WBC 9.4 RBC 4.74 Hgb 13.5 Hct 42.3 MCV 89.2 MCH 28.5 MCHC 31.9 L RDW 14.9 H Plt Count 202 MPV 10.2 Neut % (Auto) 76.5 H Lymph % (Auto) 12.8 L [place] % (Auto) 10.3 H Eos % (Auto) 0.0 Baso % (Auto) 0.4 Neut # (Auto) 7.2 H Lymph # (Auto) 1.2 [place] # (Auto) 1.0 H Eos # (Auto) 0.0 Baso # (Auto) 0.0 pCO2 pO2 HCO3 ABG pH ABG Total CO2 ABG O2 Saturation ABG O2 Content ABG Base Excess ABG Hemoglobin ABG Carboxyhemoglobin POC ABG HHb (Measured) ABG Methemoglobin ABG O2 Capacity Boaz Test A-a O2 Difference Hgb O2 Saturation Vent Mode Mechanical Rate FiO2 Tidal Volume PEEP Sodium Potassium Chloride Carbon Dioxide Anion Gap BUN Creatinine Est GFR ( Amer) Est GFR (Non-Af Amer) POC Glucose (mg/dL) 319 H 292 H Random Glucose Calcium 04/22/17 04/22/17 04/22/17 04:35 05:22 05:52 WBC RBC Hgb Hct MCV MCH MCHC RDW Plt Count MPV Neut % (Auto) Lymph % (Auto) [place] % (Auto) Eos % (Auto) Baso % (Auto) Neut # (Auto) Lymph # (Auto) [place] # (Auto) Eos # (Auto) Baso # (Auto) pCO2 43 pO2 140 H HCO3 34.2 H ABG pH 7.53 H ABG Total CO2 37.2 H ABG O2 Saturation 99.6 H ABG O2 Content 18.5 ABG Base Excess 11.9 H ABG Hemoglobin 13.4 ABG Carboxyhemoglobin 1.3 POC ABG HHb (Measured) 0.4 ABG Methemoglobin 1.6 ABG O2 Capacity 18.6 Boaz Test Yes A-a O2 Difference 377.0 Hgb O2 Saturation 96.7 Vent Mode A/c Mechanical Rate 12 FiO2 80.0 Tidal Volume 500 PEEP 5 Sodium 148 Potassium 4.1 Chloride 105 Carbon Dioxide 31 H Anion Gap 16 BUN 32 H Creatinine 0.7 Est GFR ( Amer) > 60 Est GFR (Non-Af Amer) > 60 POC Glucose (mg/dL) 243 H Random Glucose 298 H Calcium 8.7 04/22/17 11:59 WBC RBC Hgb Hct MCV MCH MCHC RDW Plt Count MPV Neut % (Auto) Lymph % (Auto) [place] % (Auto) Eos % (Auto) Baso % (Auto) Neut # (Auto) Lymph # (Auto) [place] # (Auto) Eos # (Auto) Baso # (Auto) pCO2 pO2 HCO3 ABG pH ABG Total CO2 ABG O2 Saturation ABG O2 Content ABG Base Excess ABG Hemoglobin ABG Carboxyhemoglobin POC ABG HHb (Measured) ABG Methemoglobin ABG O2 Capacity Boaz Test A-a O2 Difference Hgb O2 Saturation Vent Mode Mechanical Rate FiO2 Tidal Volume PEEP Sodium Potassium Chloride Carbon Dioxide Anion Gap BUN Creatinine Est GFR ( Amer) Est GFR (Non-Af Amer) POC Glucose (mg/dL) 186 H Random Glucose Calcium Fingerstick Blood Sugar Results: 243 Review of Systems - Review of Systems Review of Systems: unable to assess because sedation and mechanical ventilation Critical Care Progress Note - Nutrition Nutrition: Nutrition Category Date Time Status NPO Diet [DIET] Diets 04/18/17 Breakfast Active Assessment/Plan - Assessment and Plan (Free Text) Plan: Acute Respiratory Failure -likely 2/2 aspiration Pneumonia vs Hospital adquired -spiking fever in the last 12 hours -PaCO2 normal in 43 on ABG today in am -PRVC AC: respiratory rate: 12, TV: 500, PEEP 5, FiO2 80 % -c/w Vancomycin 1 gm IVPB daily day #2 -Zosyn 3.375 gm IVPB Q6 day #2 -f/u ABG and CXR in AM -f/u repeat cultures -f/u Vanco trough 30 mins before 4 dose -CXR today reported as no significant interval change. Endotracheal an enteric tubes unchanged. -yesterday started on antibiotics for aspiration pneumonia. Patient is high risk for aspiration pneumonia. -Pulmonology on consult as per primary team. Rec are appreciated -ID was consulted by primary team. rec are appreciated. Acute Ischemic Stroke -c/w aspirin 81 mg daily -c/w atorvastatin 40 mg daily -c/w glycemic control -Neurology was consulted by primary team Diabetes Mellitus type2 -c/w glycemic control -Hgb A1c 16 Hypertension -c/w current HTN management s/p stroke Diabetic foot calluses -Podiatry on consult by primary team -Podiatry recs are appreciated Prophylaxis -DVT prophylaxis : on SCDs and Eliquis 2.5 mg BID -stress ulcer prophylaxis: Protonix 40 mg IV daily -pressure ulcers precautions - Date & Time Date: 04/22/17 Time: 10:00 <Cayetano Story - Last Filed: 04/22/17 18:32> CCU Subjective - Physician Review Subjective (Free Text): Attestation: Patient seen and examined at the bedside with Resident Dr. Romana Hidalgo; and I agree with her outline of plans and management documented above as discussed on AM rounds reflecting my review of all applicable clinical data, and participation in the care of the patient throughout the day in ICU; April. Time spent with this patient did not overlap with any other provider's medical or critical care time. Additionally the code selected for the services rendered in this note includes the time spent: talking to the patients family, associated physicians and reviewing hospital data/results not listed here which extended to a total of 45 minutes. CCU Objective - Medications Active Medications: Active Medications Generic Name Dose Route Start Last Admin Trade Name Freq PRN Reason Stop Dose Admin Acetaminophen 650 mg 04/15/17 23:34 04/15/17 23:58 Tylenol 325mg Tab PO 650 mg Q6 PRN Administration fever > 100.4 Acetaminophen 650 mg 04/21/17 20:53 04/22/17 16:30 Tylenol 650 Mg Supp NE 650 mg Q4 PRN Administration Fever >100.4 F Albuterol/Ipratropium 3 ml 04/21/17 05:11 Duoneb 3 Mg/0.5 Mg (3 Ml) Ud INH RQ6 PRN Shortness of Breath Apixaban 2.5 mg 04/17/17 17:00 04/22/17 17:41 Eliquis PO 2.5 mg BID BRIAN Administration Protocol Aspirin 81 mg 04/19/17 13:00 04/22/17 08:41 Aspirin Chewable PO 81 mg DAILY BRIAN Administration Atorvastatin Calcium 40 mg 04/13/17 22:00 04/22/17 00:58 Lipitor PO Not Given HS [facility] Bacitracin 1 applic 04/16/17 09:00 04/22/17 17:40 Bacitracin Oint TOP 1 applic BID [facility] Administration Enalapril Maleate 2.5 mg 04/19/17 17:00 04/22/17 17:42 Vasotec PO 2.5 mg BID BRIAN Administration Glipizide 10 mg 04/14/17 08:00 04/22/17 17:41 Glucotrol Xl PO Not Given BRKDIN [facility] Valproate Sodium 500 mg/ 105 mls @ 105 mls/hr 04/17/17 21:00 04/22/17 10:00 Sodium Chloride IVPB 105 mls/hr Q12 BRIAN Administration As Directed Vancomycin HCl 1 gm/ Sodium 250 mls @ 166.667 mls/hr 04/21/17 20:00 04/21/17 20:53 Chloride IVPB 166.667 mls/hr DAILY@2000 BRIAN Administration Protocol Meropenem 1 gm/ Sodium 100 mls @ 100 mls/hr 04/23/17 01:00 Chloride IVPB Q8 [facility] Protocol Insulin Detemir 20 units 04/15/17 16:43 04/21/17 21:54 Levemir SC 20 u HS BRIAN Administration Insulin Human Regular 0 units 04/13/17 07:30 04/22/17 17:00 Humulin R SC Not Given ACHS [facility] Protocol Pantoprazole Sodium 40 mg 04/22/17 09:00 04/22/17 17:49 Protonix Inj IVP 40 mg DAILY BRIAN Administration Repaglinide 1 mg 04/14/17 09:00 04/22/17 17:41 Prandin PO Not Given TID BRIAN Sitagliptin Phosphate 50 mg 04/14/17 09:00 04/22/17 17:41 Januvia PO Not Given BID BRIAN - Patient Studies Lab Studies: Microbiology Studies 04/21/17 05:46 Gram Stain - Preliminary Trachasp 04/20/17 07:55 Urine Culture - Final Urine,Clean Catch Escherichia Coli Lab Studies 04/22/17 04/22/17 04/22/17 Range/Units 17:28 11:59 05:52 WBC (4.8-10.8) K/uL RBC (3.80-5.20) Mil/uL Hgb (12.0-16.0) g/dL Hct (34.0-47.0) % MCV (81.0-99.0) fl MCH (27.0-31.0) pg MCHC (33.0-37.0) g/dL RDW (11.5-14.5) % Plt Count (130-400) K/uL MPV (7.2-11.7) fl Neut % (Auto) (50.0-75.0) % Lymph % (Auto) (20.0-40.0) % [place] % (Auto) (0.0-10.0) % Eos % (Auto) (0.0-4.0) % Baso % (Auto) (0.0-2.0) % Neut # (Auto) (1.8-7.0) K/uL Lymph # (Auto) (1.0-4.3) K/uL [place] # (Auto) (0.0-0.8) K/uL Eos # (Auto) (0.0-0.7) K/uL Baso # (Auto) (0.0-0.2) K/uL pCO2 (35-45) mm/Hg pO2 (80-100) mm/Hg HCO3 (21-28) mmol/L ABG pH (7.35-7.45) ABG Total CO2 (22-28) mmol/L ABG O2 Saturation (95-98) % ABG O2 Content (15-23) ML/dL ABG Base Excess (-2.0-3.0) mmol/L ABG Hemoglobin (11.7-17.4) g/dL ABG Carboxyhemoglobin (0.5-1.5) % POC ABG HHb (Measured) (0.0-5.0) % ABG Methemoglobin (0.0-3.0) % ABG O2 Capacity (16-24) mL/dL Boaz Test A-a O2 Difference mm/Hg Hgb O2 Saturation (95.0-98.0) % Vent Mode Mechanical Rate FiO2 % Tidal Volume PEEP Sodium (132-148) mmol/l Potassium (3.6-5.0) MMOL/L Chloride (98-107) mmol/L Carbon Dioxide (22-30) mmol/L Anion Gap (10-20) BUN (7-17) mg/dl Creatinine (0.7-1.2) mg/dl Est GFR ( Amer) Est GFR (Non-Af Amer) POC Glucose (mg/dL) 213 H 186 H 243 H (65-110) mg/dL Random Glucose (65-105) mg/dL Calcium (8.4-10.2) mg/dL 04/22/17 04/22/17 04/22/17 Range/Units 05:22 04:35 04:35 WBC 9.4 (4.8-10.8) K/uL RBC 4.74 (3.80-5.20) Mil/uL Hgb 13.5 (12.0-16.0) g/dL Hct 42.3 (34.0-47.0) % MCV 89.2 (81.0-99.0) fl MCH 28.5 (27.0-31.0) pg MCHC 31.9 L (33.0-37.0) g/dL RDW 14.9 H (11.5-14.5) % Plt Count 202 (130-400) K/uL MPV 10.2 (7.2-11.7) fl Neut % (Auto) 76.5 H (50.0-75.0) % Lymph % (Auto) 12.8 L (20.0-40.0) % [place] % (Auto) 10.3 H (0.0-10.0) % Eos % (Auto) 0.0 (0.0-4.0) % Baso % (Auto) 0.4 (0.0-2.0) % Neut # (Auto) 7.2 H (1.8-7.0) K/uL Lymph # (Auto) 1.2 (1.0-4.3) K/uL [place] # (Auto) 1.0 H (0.0-0.8) K/uL Eos # (Auto) 0.0 (0.0-0.7) K/uL Baso # (Auto) 0.0 (0.0-0.2) K/uL pCO2 43 (35-45) mm/Hg pO2 140 H (80-100) mm/Hg HCO3 34.2 H (21-28) mmol/L ABG pH 7.53 H (7.35-7.45) ABG Total CO2 37.2 H (22-28) mmol/L ABG O2 Saturation 99.6 H (95-98) % ABG O2 Content 18.5 (15-23) ML/dL ABG Base Excess 11.9 H (-2.0-3.0) mmol/L ABG Hemoglobin 13.4 (11.7-17.4) g/dL ABG Carboxyhemoglobin 1.3 (0.5-1.5) % POC ABG HHb (Measured) 0.4 (0.0-5.0) % ABG Methemoglobin 1.6 (0.0-3.0) % ABG O2 Capacity 18.6 (16-24) mL/dL Boaz Test Yes A-a O2 Difference 377.0 mm/Hg Hgb O2 Saturation 96.7 (95.0-98.0) % Vent Mode A/c Mechanical Rate 12 FiO2 80.0 % Tidal Volume 500 PEEP 5 Sodium 148 (132-148) mmol/l Potassium 4.1 (3.6-5.0) MMOL/L Chloride 105 (98-107) mmol/L Carbon Dioxide 31 H (22-30) mmol/L Anion Gap 16 (10-20) BUN 32 H (7-17) mg/dl Creatinine 0.7 (0.7-1.2) mg/dl Est GFR ( Amer) > 60 Est GFR (Non-Af Amer) > 60 POC Glucose (mg/dL) (65-110) mg/dL Random Glucose 298 H (65-105) mg/dL Calcium 8.7 (8.4-10.2) mg/dL 04/21/17 Range/Units 21:07 WBC (4.8-10.8) K/uL RBC (3.80-5.20) Mil/uL Hgb (12.0-16.0) g/dL Hct (34.0-47.0) % MCV (81.0-99.0) fl MCH (27.0-31.0) pg MCHC (33.0-37.0) g/dL RDW (11.5-14.5) % Plt Count (130-400) K/uL MPV (7.2-11.7) fl Neut % (Auto) (50.0-75.0) % Lymph % (Auto) (20.0-40.0) % [place] % (Auto) (0.0-10.0) % Eos % (Auto) (0.0-4.0) % Baso % (Auto) (0.0-2.0) % Neut # (Auto) (1.8-7.0) K/uL Lymph # (Auto) (1.0-4.3) K/uL [place] # (Auto) (0.0-0.8) K/uL Eos # (Auto) (0.0-0.7) K/uL Baso # (Auto) (0.0-0.2) K/uL pCO2 (35-45) mm/Hg pO2 (80-100) mm/Hg HCO3 (21-28) mmol/L ABG pH (7.35-7.45) ABG Total CO2 (22-28) mmol/L ABG O2 Saturation (95-98) % ABG O2 Content (15-23) ML/dL ABG Base Excess (-2.0-3.0) mmol/L ABG Hemoglobin (11.7-17.4) g/dL ABG Carboxyhemoglobin (0.5-1.5) % POC ABG HHb (Measured) (0.0-5.0) % ABG Methemoglobin (0.0-3.0) % ABG O2 Capacity (16-24) mL/dL Boaz Test A-a O2 Difference mm/Hg Hgb O2 Saturation (95.0-98.0) % Vent Mode Mechanical Rate FiO2 % Tidal Volume PEEP Sodium (132-148) mmol/l Potassium (3.6-5.0) MMOL/L Chloride (98-107) mmol/L Carbon Dioxide (22-30) mmol/L Anion Gap (10-20) BUN (7-17) mg/dl Creatinine (0.7-1.2) mg/dl Est GFR ( Amer) Est GFR (Non-Af Amer) POC Glucose (mg/dL) 292 H (65-110) mg/dL Random Glucose (65-105) mg/dL Calcium (8.4-10.2) mg/dL Laboratory Results - last 24 hr 04/21/17 04/22/17 04/22/17 21:07 04:35 04:35 WBC 9.4 RBC 4.74 Hgb 13.5 Hct 42.3 MCV 89.2 MCH 28.5 MCHC 31.9 L RDW 14.9 H Plt Count 202 MPV 10.2 Neut % (Auto) 76.5 H Lymph % (Auto) 12.8 L [place] % (Auto) 10.3 H Eos % (Auto) 0.0 Baso % (Auto) 0.4 Neut # (Auto) 7.2 H Lymph # (Auto) 1.2 [place] # (Auto) 1.0 H Eos # (Auto) 0.0 Baso # (Auto) 0.0 pCO2 pO2 HCO3 ABG pH ABG Total CO2 ABG O2 Saturation ABG O2 Content ABG Base Excess ABG Hemoglobin ABG Carboxyhemoglobin POC ABG HHb (Measured) ABG Methemoglobin ABG O2 Capacity [place] Test A-a O2 Difference Hgb O2 Saturation Vent Mode Mechanical Rate FiO2 Tidal Volume PEEP Sodium 148 Potassium 4.1 Chloride 105 Carbon Dioxide 31 H Anion Gap 16 BUN 32 H Creatinine 0.7 Est GFR ( Amer) > 60 Est GFR (Non-Af Amer) > 60 POC Glucose (mg/dL) 292 H Random Glucose 298 H Calcium 8.7 04/22/17 04/22/17 04/22/17 05:22 05:52 11:59 WBC RBC Hgb Hct MCV MCH MCHC RDW Plt Count MPV Neut % (Auto) Lymph % (Auto) [place] % (Auto) Eos % (Auto) Baso % (Auto) Neut # (Auto) Lymph # (Auto) [place] # (Auto) Eos # (Auto) Baso # (Auto) pCO2 43 pO2 140 H HCO3 34.2 H ABG pH 7.53 H ABG Total CO2 37.2 H ABG O2 Saturation 99.6 H ABG O2 Content 18.5 ABG Base Excess 11.9 H ABG Hemoglobin 13.4 ABG Carboxyhemoglobin 1.3 POC ABG HHb (Measured) 0.4 ABG Methemoglobin 1.6 ABG O2 Capacity 18.6 [place] Test Yes A-a O2 Difference 377.0 Hgb O2 Saturation 96.7 Vent Mode A/c Mechanical Rate 12 FiO2 80.0 Tidal Volume 500 PEEP 5 Sodium Potassium Chloride Carbon Dioxide Anion Gap BUN Creatinine Est GFR ( Amer) Est GFR (Non-Af Amer) POC Glucose (mg/dL) 243 H 186 H Random Glucose Calcium 04/22/17 17:28 WBC RBC Hgb Hct MCV MCH MCHC RDW Plt Count MPV Neut % (Auto) Lymph % (Auto) [place] % (Auto) Eos % (Auto) Baso % (Auto) Neut # (Auto) Lymph # (Auto) [place] # (Auto) Eos # (Auto) Baso # (Auto) pCO2 pO2 HCO3 ABG pH ABG Total CO2 ABG O2 Saturation ABG O2 Content ABG Base Excess ABG Hemoglobin ABG Carboxyhemoglobin POC ABG HHb (Measured) ABG Methemoglobin ABG O2 Capacity [place] Test A-a O2 Difference Hgb O2 Saturation Vent Mode Mechanical Rate FiO2 Tidal Volume PEEP Sodium Potassium Chloride Carbon Dioxide Anion Gap BUN Creatinine Est GFR ( Amer) Est GFR (Non-Af Amer) POC Glucose (mg/dL) 213 H Random Glucose Calcium
[2017-04-22] MEDS: Propofol 10 mg/ml 1,000 MG/100 ML VIAL IV SCH (20:56)
[2017-04-22] MEDS: Insulin Detemir 100 Units/ml Inj SC SCH (22:36)
[2017-04-23] MEDS: Meropenem 1 GM in Sodium Chloride 0.9% 100 ML IVPB SCH ×3 (00:52→17:06)
[2017-04-23 04:56] LABS: ABG ALLEN TEST YES; ARTERIAL BLOOD GAS PCO2 44 mm/Hg (35-45); ARTERIAL BLOOD GAS PH 7.52 (7.35-7.45); ARTERIAL BLOOD GAS PO2 86 mm/Hg (80-100); ARTERIAL BLOOD GAS TCO2 37.3 mmol/L (22-28)
[2017-04-23 05:54] LABS: BASO # 0.1 K/uL (0.0-0.2); BASO % 0.7 % (0.0-2.0); HEMOGLOBIN 12.6 g/dL (12.0-16.0); LYMPH # 1.4 K/uL (1.0-4.3); LYMPH % 15.7 % (20.0-40.0); MEAN CELL VOLUME 89.8 fl (81.0-99.0); MEAN CORPUSCULAR HEMOGLOBIN 28.1 pg (27.0-31.0); MEAN CORPUSCULAR HGB CONC 31.3 g/dL (33.0-37.0); MEAN PLATELET VOLUME 10.4 fl (7.2-11.7); MONO # 0.9 K/uL (0.0-0.8); MONO % 10.5 % (0.0-10.0); NEUT # 6.4 K/uL (1.8-7.0); NEUT % 73.1 % (50.0-75.0); RBC 4.48 Mil/uL (3.80-5.20); WHITE BLOOD COUNT 8.8 K/uL (4.8-10.8)
[2017-04-23 06:05] LABS: BLOOD UREA NITROGEN 40 mg/dl (7-17); CALCIUM 8.6 mg/dL (8.4-10.2); GFR AFRICAN-AMERICAN > 60; GFR NON-AFRICAN AMERICAN > 60
[2017-04-23] MEDS: Bacitracin OINT 15GM TOP SCH ×2 (08:33→17:01)
[2017-04-23] MEDS: Valproate 500 MG in Sodium Chloride 0.9% 100 ML IVPB SCH ×2 (08:33→22:00)
[2017-04-23] MEDS: GlipiZIDE 10 mg SR Tab PO SCH ×2 (08:35→17:04)
--- NOTE | 2017-04-23 11:24 | CP.PCM.PN ---
Subjective - Date & Time of Evaluation Date of Evaluation: 04/23/17 Time of Evaluation: 11:24 - Subjective Subjective: Podiatry Progress Note- Dr. Hassan 72 y/o female seen at bedside in ICU for bilateral hallux ulcerations. Patient is sleeping during the time of visitation. Pt is in NAD at time of visit. Per nursing, pt was febrile this morning and given Tylenol. Objective - Vital Signs/Intake and Output Vital Signs (last 24 hours): Temp Pulse Resp BP Pulse Ox 99.9 F H 87 13 127/64 100 04/23/17 09:38 04/23/17 11:00 04/23/17 11:00 04/23/17 11:00 04/23/17 11:00 Intake and Output: 04/23/17 04/23/17 06:59 18:59 Intake Total 559 300 Output Total 900 125 Balance -341 175 - Medications Medications: Current Medications Acetaminophen (Tylenol 325mg Tab) 650 mg PO Q6 PRN PRN Reason: fever > 100.4 Last Admin: 04/23/17 08:38 Dose: 650 mg Acetaminophen (Tylenol 650 Mg Supp) 650 mg [place] Q4 PRN PRN Reason: Fever >100.4 F Last Admin: 04/22/17 16:30 Dose: 650 mg Albuterol/Ipratropium (Duoneb 3 Mg/0.5 Mg (3 Ml) Ud) 3 ml INH RQ6 PRN PRN Reason: Shortness of Breath Apixaban (Eliquis) 2.5 mg PO BID [facility] PRN Reason: Protocol Last Admin: 04/23/17 08:34 Dose: 2.5 mg Aspirin (Aspirin Chewable) 81 mg PO DAILY [facility] Last Admin: 04/23/17 08:32 Dose: 81 mg Atorvastatin Calcium (Lipitor) 40 mg PO HS [facility] Last Admin: 04/22/17 22:27 Dose: Not Given Bacitracin (Bacitracin Oint) 1 applic TOP BID [facility] Last Admin: 04/23/17 08:33 Dose: 1 applic Enalapril Maleate (Vasotec) 2.5 mg PO BID [facility] Last Admin: 04/23/17 08:37 Dose: 2.5 mg Glipizide (Glucotrol Xl) 10 mg PO BRKDIN [facility] Last Admin: 04/23/17 08:35 Dose: 10 mg Valproate Sodium 500 mg/ (Sodium Chloride) 105 mls @ 105 mls/hr IVPB Q12 [facility] PRN Reason: As Directed Last Admin: 04/23/17 08:33 Dose: 105 mls/hr Vancomycin HCl 1 gm/ Sodium (Chloride) 250 mls @ 166.667 mls/hr IVPB DAILY@ 2000 [facility] PRN Reason: Protocol Last Admin: 04/22/17 20:49 Dose: 166.667 mls/hr Meropenem 1 gm/ Sodium (Chloride) 100 mls @ 100 mls/hr IVPB Q8 [facility] PRN Reason: Protocol Last Admin: 04/23/17 08:35 Dose: 100 mls/hr Insulin Detemir (Levemir) 20 units SC HS [facility] Last Admin: 04/22/17 22:36 Dose: 20 u Insulin Human Regular (Humulin R) 0 units SC ACHS [facility] PRN Reason: Protocol Last Admin: 04/22/17 22:26 Dose: Not Given Pantoprazole Sodium (Protonix Inj) 40 mg IVP DAILY [facility] Last Admin: 04/23/17 08:36 Dose: 40 mg Repaglinide (Prandin) 1 mg PO TID [facility] Last Admin: 04/23/17 08:36 Dose: 1 mg Sitagliptin Phosphate (Januvia) 50 mg PO BID [facility] Last Admin: 04/23/17 08:35 Dose: 50 mg - Labs Labs: 04/23/17 05:04 04/23/17 05:04 PT 9.7 Seconds (9.8-13.1) L 04/12/17 21:15 INR 0.9 (0.9-1.2) 04/12/17 21:15 APTT 26.0 Seconds (25.6-37.1) 04/12/17 21:15 - Constitutional Appears: Non-toxic, No Acute Distress - Extremities Exam Additional comments: LE focused exam: Vasc: DP and PT weakly palpable, CFT delayed x 10 digits, temperature WNL, no edema noted B/L Ortho: no pain with palpation to the plantar callosities Neuro: Epicritic and protective sensation grossly intact B/L Derm: Hyperkeratotic lesions noted to plantar hallux B/L Superficial ulceration noted to left and right distal hallux with no fluctuance, no crepitus, no erythema, no streaking, no purulence, no probe to bone, no drainage noted. Wounds considered healed at this time - Neurological Exam Neurological Exam: Alert - Psychiatric Exam Psychiatric exam: Normal Affect Assessment and Plan - Assessment and Plan (Free Text) Assessment: 72 y.o female with PMHx of DM, HTN, HLD, and CAD with bilateral hallux ulcerations, healed Plan: Patient seen and evaluated at bedside Plan discussed with attending Dr. Hassan Afebrile, absent leukocytosis Arterial duplex: Normal flow B/L B/l wounds clinically healed at this time No dressings applied to wounds No clinical suspicion of infection at this time from lower extremities Multipodus boots ordered to be worn B/L at all times while patient is in bed No plan for surgical intervention at this time Podiatry to sign off, please reconsult in future as needed
--- NOTE | 2017-04-23 11:30 | RAD ---
PROCEDURE: CHEST RADIOGRAPH, 1 VIEW HISTORY: endotracheal intubation/Mec ventilation COMPARISON: Comparison made with chest radiograph 04/22/2017 at 0416 hours FINDINGS: ETT tip lies approximately 3.74 cm above james. NGT is present, tip which overlies right upper quadrant of the abdomen. LUNGS: Right lower lobe atelectasis/ infiltrate and small effusion. Minimal left basilar atelectasis. PLEURA: No pneumothorax or pleural fluid seen. CARDIOVASCULAR: Normal. OSSEOUS STRUCTURES: No significant abnormalities. VISUALIZED UPPER ABDOMEN: Normal. OTHER FINDINGS: None. IMPRESSION: ETT and NGT as above. Patchy right lower lobe infiltrate an small effusion. Minor left basilar atelectasis.
[2017-04-23] MEDS: Insulin Regular 100 units/ml SC SCH ×3 (12:01→22:34)
--- NOTE | 2017-04-23 12:04 | CP.PCM.PN ---
Subjective - Date & Time of Evaluation Date of Evaluation: 04/23/17 Time of Evaluation: 11:00 - Subjective Subjective: Pt was febrile this am Remains intubated on Vent Sedated on Propofol Tube feeding restarted Objective - Vital Signs/Intake and Output Vital Signs (last 24 hours): Temp Pulse Resp BP Pulse Ox 99.9 F H 87 13 127/64 100 04/23/17 09:38 04/23/17 11:00 04/23/17 11:00 04/23/17 11:00 04/23/17 11:00 Intake and Output: 04/23/17 04/23/17 06:59 18:59 Intake Total 559 300 Output Total 900 125 Balance -341 175 - Medications Medications: Current Medications Acetaminophen (Tylenol 325mg Tab) 650 mg PO Q6 PRN PRN Reason: fever > 100.4 Last Admin: 04/23/17 08:38 Dose: 650 mg Acetaminophen (Tylenol 650 Mg Supp) 650 mg [place] Q4 PRN PRN Reason: Fever >100.4 F Last Admin: 04/22/17 16:30 Dose: 650 mg Albuterol/Ipratropium (Duoneb 3 Mg/0.5 Mg (3 Ml) Ud) 3 ml INH RQ6 PRN PRN Reason: Shortness of Breath Apixaban (Eliquis) 2.5 mg PO BID [facility] PRN Reason: Protocol Last Admin: 04/23/17 08:34 Dose: 2.5 mg Aspirin (Aspirin Chewable) 81 mg PO DAILY [facility] Last Admin: 04/23/17 08:32 Dose: 81 mg Atorvastatin Calcium (Lipitor) 40 mg PO HS [facility] Last Admin: 04/22/17 22:27 Dose: Not Given Bacitracin (Bacitracin Oint) 1 applic TOP BID [facility] Last Admin: 04/23/17 08:33 Dose: 1 applic Enalapril Maleate (Vasotec) 2.5 mg PO BID [facility] Last Admin: 04/23/17 08:37 Dose: 2.5 mg Glipizide (Glucotrol Xl) 10 mg PO BRKDIN [facility] Last Admin: 04/23/17 08:35 Dose: 10 mg Valproate Sodium 500 mg/ (Sodium Chloride) 105 mls @ 105 mls/hr IVPB Q12 [facility] PRN Reason: As Directed Last Admin: 04/23/17 08:33 Dose: 105 mls/hr Vancomycin HCl 1 gm/ Sodium (Chloride) 250 mls @ 166.667 mls/hr IVPB DAILY@ 2000 [facility] PRN Reason: Protocol Last Admin: 04/22/17 20:49 Dose: 166.667 mls/hr Meropenem 1 gm/ Sodium (Chloride) 100 mls @ 100 mls/hr IVPB Q8 [facility] PRN Reason: Protocol Last Admin: 04/23/17 08:35 Dose: 100 mls/hr Insulin Detemir (Levemir) 20 units SC HS [facility] Last Admin: 04/22/17 22:36 Dose: 20 u Insulin Human Regular (Humulin R) 0 units SC ACHS [facility] PRN Reason: Protocol Last Admin: 04/23/17 12:01 Dose: 1 units Pantoprazole Sodium (Protonix Inj) 40 mg IVP DAILY [facility] Last Admin: 04/23/17 08:36 Dose: 40 mg Repaglinide (Prandin) 1 mg PO TID [facility] Last Admin: 04/23/17 12:00 Dose: 1 mg Sitagliptin Phosphate (Januvia) 50 mg PO BID [facility] Last Admin: 04/23/17 08:35 Dose: 50 mg - Labs Labs: 04/23/17 05:04 04/23/17 05:04 PT 9.7 Seconds (9.8-13.1) L 04/12/17 21:15 INR 0.9 (0.9-1.2) 04/12/17 21:15 APTT 26.0 Seconds (25.6-37.1) 04/12/17 21:15 - Constitutional Appears: Chronically Ill - Head Exam Head Exam: NORMAL INSPECTION, NORMOCEPHALIC - Eye Exam Eye Exam: Normal appearance - ENT Exam ENT Exam: Mucous Membranes Dry, Normal External Ear Exam - Neck Exam Neck Exam: absent: Meningismus - Respiratory Exam Respiratory Exam: Rales, Rhonchi. absent: Wheezes Additional comments: Intubated on Vent - Cardiovascular Exam Cardiovascular Exam: REGULAR RHYTHM, +S1, +S2 - GI/Abdominal Exam GI & Abdominal Exam: Soft, Normal Bowel Sounds - Extremities Exam Extremities Exam: Normal Capillary Refill - Back Exam Back Exam: absent: CVA tenderness (R) - Neurological Exam Additional comments: Sedated on Vent - Skin Skin Exam: Dry, Normal Color, Warm Assessment and Plan - Assessment and Plan (Free Text) Assessment: 72 y/o F PMH DM, HTN, HLD brought to the ED with acutely worsening alteration of mental status ( pt has some baseline dementia) and not as verbal . CT head was neg for acute CVA or bleed. Patient glucose was elevated 563. Patient presented with left facial droop and and some expressive aphasia. MRI head showed acute stroke in right frontal lobe white matter Neuro consulted and patient admitted to telemetry.She was started on ASA, Statin , plavix,lovenox , Insulin and IVF .Her BP initially was kept elevated to allow permissive hypertension. 2/2 While in telemetry , the patient developed worsening BAILON and some left arm weakness. Patient became confused , agitated , restless ,not following any commands. She also started to have fever. Repeat MRI of the Brain : showed acute/ subacute stroke in right mcleod radiata and centrum ovale She was then transferred to ICU for close monitoring She continued to spike fevers for > 48 hours with no obvious source of infection and normal WBC count. All work up sent including CXR, UA,urine cx, blood cx and were negative for infection so fever thought to be of central origin and no antibiotics were started 2/ Rpt CT of head : stable CVA She developed episodes of agitation and restlessness requiring 1:1 for safety and medication sedation 2 While in Tele , [employer] called for stridor and respiratory distress . She developed acute hypercapnic respiratory failure was intubated and transferred to ICU. At present she is intubated, sedated on propofol drip 1. Acute hypercapnic respiratory failure Most likely secondary to aspiration pneumonia and patient's inability to handle secretions due to AMS/ CVA currently intubated on MV PRVC AC mode 12/500/5/80% Episodes of Stridor were noted before intubation and trial of ventilation by BIPAP , solumedrol and Duonebs with little benefit since PCO2 noted to trend up to 72. Large respiratory secretion suctioned during intubation and cultures sent Initial CXr showed new infiltrate . Started on Vanco and Zosyn IV CXR showed vascular congestion and possible RLL infiltrate Continue vent management Follow up blood and sputum cx. Urine cx positive for E. Coli ID consulted and antibiotics changed to Meropenam and Vancomycin Pulmonary consulted 2. Progressive Acute ischemic stroke with AMS / lethargy worsening mental status, unable to handle secretions, aspirating , with acute respiratory failure requiring intubation initial presentation of patient was : acute stroke to right frontal lobe that progressed to right mcleod radiata and centrum semiovale stroke Repeat CT head 04/17 showed Stable appearance of acute/subacute right mcleod radiata/ centrum semiovale and subacute small left mcleod radiata/centrum semiovale infarctions. No significant interval change. Neuro following Continue ASA, statin, glycemic control, eliquis( empirically started by neuro ) Tylenol PRN for fever on Depakote 500 mg IV Q12 Cardio consulted for possible JUSTYNA - on hold due to pt's medical condition ( Dr Serrato wants pt to do JUSTYNA in [place] ) Pt empiricaly started on Eliquis Started BP control with low dose ACEI Enalapril 2.5 mg BID Feeding restarted today at 20 ml/hr 3. Suspected aspiration Pneumonia With CXR findings of new right lobe infiltrate prior to intubation and large secretions suctioned during intubation On IV meropenem and Vanco ID and pulmonary on Consult F/u sputum cx Continue Vent management, Duonebs Repeat CXR today stable infiltrate 4 .Uncontrolled DM with hyperglycemia Continue accuchecks, insulin coverage Increase Levemir to 24 units q hs, cont Glucotrol, prandin , Januvia Hgb A1c 16 5. Hypertension permissive hypertension while stroke was evolving Started enalapril Low dose 6. Dyslipidemia c/w Atorvastatin 40 mg PO 7. Diabetic foot calluses podiatry consulted and following Doppler US of LE - good arterial flow DVT ppx on eliquis
[2017-04-23] MEDS ORDERED: Insulin Detemir 100 Units/ml Inj SC SCH (13:25)
--- NOTE | 2017-04-23 13:32 | CP.PCM.PN ---
Subjective - Date & Time of Evaluation Date of Evaluation: 04/23/17 Time of Evaluation: 13:32 - Subjective Subjective: ID Note- Pt. seen and examined today in ICU. remains intubated and sedated . febrile again this am. as per nurse no diarrhea. leslie was changed to a new one. no central lines. Objective - Vital Signs/Intake and Output Vital Signs (last 24 hours): Temp Pulse Resp BP Pulse Ox 99.6 F 83 12 148/73 100 04/23/17 12:00 04/23/17 13:00 04/23/17 13:00 04/23/17 13:00 04/23/17 13:00 Intake and Output: 04/23/17 04/23/17 06:59 18:59 Intake Total 559 320 Output Total 900 175 Balance -341 145 - Medications Medications: Current Medications Acetaminophen (Tylenol 325mg Tab) 650 mg PO Q6 PRN PRN Reason: fever > 100.4 Last Admin: 04/23/17 08:38 Dose: 650 mg Acetaminophen (Tylenol 650 Mg Supp) 650 mg [place] Q4 PRN PRN Reason: Fever >100.4 F Last Admin: 04/22/17 16:30 Dose: 650 mg Albuterol/Ipratropium (Duoneb 3 Mg/0.5 Mg (3 Ml) Ud) 3 ml INH RQ6 PRN PRN Reason: Shortness of Breath Apixaban (Eliquis) 2.5 mg PO BID [facility] PRN Reason: Protocol Last Admin: 04/23/17 08:34 Dose: 2.5 mg Aspirin (Aspirin Chewable) 81 mg PO DAILY [facility] Last Admin: 04/23/17 08:32 Dose: 81 mg Atorvastatin Calcium (Lipitor) 40 mg PO HS [facility] Last Admin: 04/22/17 22:27 Dose: Not Given Bacitracin (Bacitracin Oint) 1 applic TOP BID [facility] Last Admin: 04/23/17 08:33 Dose: 1 applic Enalapril Maleate (Vasotec) 2.5 mg PO BID [facility] Last Admin: 04/23/17 08:37 Dose: 2.5 mg Glipizide (Glucotrol Xl) 10 mg PO BRKDIN [facility] Last Admin: 04/23/17 08:35 Dose: 10 mg Valproate Sodium 500 mg/ (Sodium Chloride) 105 mls @ 105 mls/hr IVPB Q12 [facility] PRN Reason: As Directed Last Admin: 04/23/17 08:33 Dose: 105 mls/hr Vancomycin HCl 1 gm/ Sodium (Chloride) 250 mls @ 166.667 mls/hr IVPB DAILY@ 2000 [facility] PRN Reason: Protocol Last Admin: 04/22/17 20:49 Dose: 166.667 mls/hr Meropenem 1 gm/ Sodium (Chloride) 100 mls @ 100 mls/hr IVPB Q8 [facility] PRN Reason: Protocol Last Admin: 04/23/17 08:35 Dose: 100 mls/hr Insulin Detemir (Levemir) 24 units SC HS [facility] Insulin Human Regular (Humulin R) 0 units SC ACHS [facility] PRN Reason: Protocol Last Admin: 04/23/17 12:01 Dose: 1 units Pantoprazole Sodium (Protonix Inj) 40 mg IVP DAILY [facility] Last Admin: 04/23/17 08:36 Dose: 40 mg Repaglinide (Prandin) 1 mg PO TID [facility] Last Admin: 04/23/17 12:00 Dose: 1 mg Sitagliptin Phosphate (Januvia) 50 mg PO BID [facility] Last Admin: 04/23/17 08:35 Dose: 50 mg - Labs Labs: - Additional Findings Additional findings: - Constitutional Appears: Additional comments: Intubated and sedated - Head Exam Head Exam: ATRAUMATIC - ENT Exam Additional comments: ET tube in place - Neck Exam Neck exam: Positive for: Full Rom Additional comments: supple - Respiratory Exam Additional comments: decreased breath sounds at right base - Cardiovascular Exam Cardiovascular Exam: RRR, +S1, +S2 - GI/Abdominal Exam GI & Abdominal Exam: Normal Bowel Sounds, Soft Additional comments: ND, NT - Extremities Exam Additional comments: no edema b/l LE, no ulcerations - Neurological Exam Additional comments: sedated Laboratory Results - last 72 hr 04/22/17 04/22/17 04/22/17 04:35 04:35 05:22 WBC 9.4 RBC 4.74 Hgb 13.5 Hct 42.3 MCV 89.2 MCH 28.5 MCHC 31.9 L RDW 14.9 H Plt Count 202 MPV 10.2 Neut % (Auto) 76.5 H Lymph % (Auto) 12.8 L Piatt % (Auto) 10.3 H Eos % (Auto) 0.0 Baso % (Auto) 0.4 Neut # (Auto) 7.2 H Lymph # (Auto) 1.2 Piatt # (Auto) 1.0 H Eos # (Auto) 0.0 Baso # (Auto) 0.0 pCO2 43 pO2 140 H HCO3 34.2 H ABG pH 7.53 H ABG Total CO2 37.2 H ABG O2 Saturation 99.6 H ABG O2 Content 18.5 ABG Base Excess 11.9 H ABG Hemoglobin 13.4 ABG Carboxyhemoglobin 1.3 POC ABG HHb (Measured) 0.4 ABG Methemoglobin 1.6 ABG O2 Capacity 18.6 Boaz Test Yes ABG Potassium A-a O2 Difference 377.0 Hgb O2 Saturation 96.7 Glucose Lactate Vent Mode A/c Mechanical Rate 12 FiO2 80.0 Tidal Volume 500 PEEP 5 Sodium 148 Potassium 4.1 Chloride 105 Carbon Dioxide 31 H Anion Gap 16 BUN 32 H Creatinine 0.7 Est GFR ( Amer) > 60 Est GFR (Non-Af Amer) > 60 POC Glucose (mg/dL) Random Glucose 298 H Calcium 8.7 Arterial Blood Potassium Vancomycin Trough 04/22/17 04/22/17 04/22/17 05:52 11:59 17:28 WBC RBC Hgb Hct MCV MCH MCHC RDW Plt Count MPV Neut % (Auto) Lymph % (Auto) Piatt % (Auto) Eos % (Auto) Baso % (Auto) Neut # (Auto) Lymph # (Auto) Piatt # (Auto) Eos # (Auto) Baso # (Auto) pCO2 pO2 HCO3 ABG pH ABG Total CO2 ABG O2 Saturation ABG O2 Content ABG Base Excess ABG Hemoglobin ABG Carboxyhemoglobin POC ABG HHb (Measured) ABG Methemoglobin ABG O2 Capacity Boaz Test ABG Potassium A-a O2 Difference Hgb O2 Saturation Glucose Lactate Vent Mode Mechanical Rate FiO2 Tidal Volume PEEP Sodium Potassium Chloride Carbon Dioxide Anion Gap BUN Creatinine Est GFR ( Amer) Est GFR (Non-Af Amer) POC Glucose (mg/dL) 243 H 186 H 213 H Random Glucose Calcium Arterial Blood Potassium Vancomycin Trough 04/22/17 04/23/17 04/23/17 21:59 04:18 05:04 WBC 8.8 RBC 4.48 Hgb 12.6 Hct 40.3 MCV 89.8 MCH 28.1 MCHC 31.3 L RDW 15.0 H Plt Count 192 MPV 10.4 Neut % (Auto) 73.1 Lymph % (Auto) 15.7 L Piatt % (Auto) 10.5 H Eos % (Auto) 0.0 Baso % (Auto) 0.7 Neut # (Auto) 6.4 Lymph # (Auto) 1.4 Piatt # (Auto) 0.9 H Eos # (Auto) 0.0 Baso # (Auto) 0.1 pCO2 44 pO2 86 HCO3 34.0 H ABG pH 7.52 H ABG Total CO2 37.3 H ABG O2 Saturation ABG O2 Content ABG Base Excess 11.6 H ABG Hemoglobin ABG Carboxyhemoglobin POC ABG HHb (Measured) ABG Methemoglobin ABG O2 Capacity Boaz Test Yes ABG Potassium 3.7 A-a O2 Difference 429.0 Hgb O2 Saturation Glucose 305 H Lactate 1.4 Vent Mode A/c Mechanical Rate 12 FiO2 80.0 Tidal Volume 500 PEEP 5 Sodium 148.0 Potassium Chloride 108.0 H Carbon Dioxide Anion Gap BUN Creatinine Est GFR ( Amer) Est GFR (Non-Af Amer) POC Glucose (mg/dL) 247 H Random Glucose Calcium Arterial Blood Potassium 3.7 Vancomycin Trough 04/23/17 04/23/17 04/23/17 05:04 05:33 11:24 WBC RBC Hgb Hct MCV MCH MCHC RDW Plt Count MPV Neut % (Auto) Lymph % (Auto) Piatt % (Auto) Eos % (Auto) Baso % (Auto) Neut # (Auto) Lymph # (Auto) Piatt # (Auto) Eos # (Auto) Baso # (Auto) pCO2 pO2 HCO3 ABG pH ABG Total CO2 ABG O2 Saturation ABG O2 Content ABG Base Excess ABG Hemoglobin ABG Carboxyhemoglobin POC ABG HHb (Measured) ABG Methemoglobin ABG O2 Capacity Boaz Test ABG Potassium A-a O2 Difference Hgb O2 Saturation Glucose Lactate Vent Mode Mechanical Rate FiO2 Tidal Volume PEEP Sodium 150 H Potassium 3.7 Chloride 104 Carbon Dioxide 34 H Anion Gap 16 BUN 40 H Creatinine 0.7 Est GFR ( Amer) > 60 Est GFR (Non-Af Amer) > 60 POC Glucose (mg/dL) 257 H 173 H Random Glucose 293 H Calcium 8.6 Arterial Blood Potassium Vancomycin Trough 04/23/17 04/23/17 04/24/17 16:46 21:27 05:43 WBC RBC Hgb Hct MCV MCH MCHC RDW Plt Count MPV Neut % (Auto) Lymph % (Auto) Piatt % (Auto) Eos % (Auto) Baso % (Auto) Neut # (Auto) Lymph # (Auto) Piatt # (Auto) Eos # (Auto) Baso # (Auto) pCO2 42 pO2 137 H HCO3 32.3 H ABG pH 7.51 H ABG Total CO2 34.8 H ABG O2 Saturation 99.4 H ABG O2 Content 17.3 ABG Base Excess 9.5 H ABG Hemoglobin 12.5 ABG Carboxyhemoglobin 0.9 POC ABG HHb (Measured) 0.6 ABG Methemoglobin 1.2 ABG O2 Capacity 17.4 Boaz Test Yes ABG Potassium A-a O2 Difference 381.0 Hgb O2 Saturation 97.3 Glucose Lactate Vent Mode A/c Mechanical Rate 12 FiO2 80.0 Tidal Volume 500 PEEP 5 Sodium Potassium Chloride Carbon Dioxide Anion Gap BUN Creatinine Est GFR ( Amer) Est GFR (Non-Af Amer) POC Glucose (mg/dL) 178 H 215 H Random Glucose Calcium Arterial Blood Potassium Vancomycin Trough 04/24/17 04/24/17 04/24/17 06:00 06:00 06:09 WBC 5.8 RBC 4.32 Hgb 12.1 Hct 38.8 MCV 89.8 MCH 28.1 MCHC 31.3 L RDW 15.3 H Plt Count 193 MPV Neut % (Auto) Lymph % (Auto) Piatt % (Auto) Eos % (Auto) Baso % (Auto) Neut # (Auto) Lymph # (Auto) Piatt # (Auto) Eos # (Auto) Baso # (Auto) pCO2 pO2 HCO3 ABG pH ABG Total CO2 ABG O2 Saturation ABG O2 Content ABG Base Excess ABG Hemoglobin ABG Carboxyhemoglobin POC ABG HHb (Measured) ABG Methemoglobin ABG O2 Capacity Boaz Test ABG Potassium A-a O2 Difference Hgb O2 Saturation Glucose Lactate Vent Mode Mechanical Rate FiO2 Tidal Volume PEEP Sodium 151 H Potassium 3.6 Chloride 109 H Carbon Dioxide 35 H Anion Gap 11 BUN 33 H Creatinine 0.7 Est GFR ( Amer) > 60 Est GFR (Non-Af Amer) > 60 POC Glucose (mg/dL) 226 H Random Glucose 258 H Calcium 8.5 Arterial Blood Potassium Vancomycin Trough 04/24/17 04/24/17 04/24/17 11:13 17:10 18:00 WBC RBC Hgb Hct MCV MCH MCHC RDW Plt Count MPV Neut % (Auto) Lymph % (Auto) Piatt % (Auto) Eos % (Auto) Baso % (Auto) Neut # (Auto) Lymph # (Auto) Piatt # (Auto) Eos # (Auto) Baso # (Auto) pCO2 pO2 HCO3 ABG pH ABG Total CO2 ABG O2 Saturation ABG O2 Content ABG Base Excess ABG Hemoglobin ABG Carboxyhemoglobin POC ABG HHb (Measured) ABG Methemoglobin ABG O2 Capacity Boaz Test ABG Potassium A-a O2 Difference Hgb O2 Saturation Glucose Lactate Vent Mode Mechanical Rate FiO2 Tidal Volume PEEP Sodium Potassium Chloride Carbon Dioxide Anion Gap BUN Creatinine Est GFR ( Amer) Est GFR (Non-Af Amer) POC Glucose (mg/dL) 177 H 187 H Random Glucose Calcium Arterial Blood Potassium Vancomycin Trough 5.7 04/24/17 21:22 WBC RBC Hgb Hct MCV MCH MCHC RDW Plt Count MPV Neut % (Auto) Lymph % (Auto) Piatt % (Auto) Eos % (Auto) Baso % (Auto) Neut # (Auto) Lymph # (Auto) Piatt # (Auto) Eos # (Auto) Baso # (Auto) pCO2 pO2 HCO3 ABG pH ABG Total CO2 ABG O2 Saturation ABG O2 Content ABG Base Excess ABG Hemoglobin ABG Carboxyhemoglobin POC ABG HHb (Measured) ABG Methemoglobin ABG O2 Capacity Boaz Test ABG Potassium A-a O2 Difference Hgb O2 Saturation Glucose Lactate Vent Mode Mechanical Rate FiO2 Tidal Volume PEEP Sodium Potassium Chloride Carbon Dioxide Anion Gap BUN Creatinine Est GFR ( Amer) Est GFR (Non-Af Amer) POC Glucose (mg/dL) 209 H Random Glucose Calcium Arterial Blood Potassium Vancomycin Trough Microbiology 04/21/17 21:05 Blood-Venous Blood Culture - Preliminary NO GROWTH AFTER 3 DAYS 04/21/17 20:55 Blood-Venous Blood Culture - Preliminary NO GROWTH AFTER 3 DAYS 04/22/17 19:03 Blood-Venous Blood Culture - Preliminary NO GROWTH AFTER 48 HOURS 04/22/17 19:03 Blood-Venous Blood Culture - Preliminary NO GROWTH AFTER 48 HOURS 04/21/17 05:46 Trachasp Gram Stain - Final 04/21/17 05:46 Trachasp Sputum Culture - Final NORMAL ORAL LEIDA 04/21/17 05:45 Urine,Leslie Urine Culture - Final Yeast Species 04/20/17 07:34 Naris MRSA Culture (Admit) - Final MRSA NOT DETECTED 04/20/17 07:55 Urine,Clean Catch Urine Culture - Final Escherichia Coli 04/15/17 06:14 Blood-Venous Blood Culture - Final NO GROWTH AFTER 5 DAYS 04/15/17 06:14 Blood-Venous Gram Stain - Final TEST NOT PERFORMED 04/15/17 06:14 Blood-Venous Blood Culture - Final NO GROWTH AFTER 5 DAYS 04/15/17 06:14 Blood-Venous Gram Stain - Final TEST NOT PERFORMED 04/16/17 08:25 Naris MRSA Culture (Admit) - Final MRSA NOT DETECTED 04/12/17 21:15 Urine,Clean Catch Urine Culture - Final > 100,000 CFU/ML. MULTIPLE SPECIES. SUGGEST REPEAT SPECIMEM. Assessment and Plan (1) CVA (cerebral vascular accident) Status: Acute (2) Type 2 diabetes mellitus with pressure callus Status: Acute (3) Aspiration pneumonia Status: Acute (4) UTI (urinary tract infection) Status: Acute - Assessment and Plan (Free Text) Assessment: A/P- 72 year old female with DM Ii, HTN was admitted with mental status change and was found to have acute ischemic stroke but was doing better and was transferred to step down unit, however, had [employer] and for resp distress and is now post intubation and back in ICU . resp distress most likely secondary to aspiration pneumonitis fevers slightly lower today. normal wbc count cxr report- RLL pneumonia. blood cx- neg UA- neg urine cx -e.coli pansensitive influenza- negative Plan- advise to continue with meropnem for broader gram neg covergae. day 32 advise to continue with IV vancomycin for HAP vs pneumonitis. day #3. keep trough <15. fevers could also be central fevers in light of recent CVA and the fact that she has normal wbc and normal diff. ICU time spent 45 min.
--- NOTE | 2017-04-23 16:06 | CP.PCM.PN ---
Subjective - Date & Time of Evaluation Date of Evaluation: 04/23/17 Time of Evaluation: 11:45 - Subjective Subjective: F/U Respiratory Failure intubated , sedated Objective - Vital Signs/Intake and Output Vital Signs (last 24 hours): Temp Pulse Resp BP Pulse Ox 99.6 F 78 12 118/61 99 04/23/17 12:00 04/23/17 15:00 04/23/17 15:00 04/23/17 15:00 04/23/17 15:00 Intake and Output: 04/23/17 04/23/17 06:59 18:59 Intake Total 559 360 Output Total 900 215 Balance -341 145 - Medications Medications: Current Medications Acetaminophen (Tylenol 325mg Tab) 650 mg PO Q6 PRN PRN Reason: fever > 100.4 Last Admin: 04/23/17 08:38 Dose: 650 mg Acetaminophen (Tylenol 650 Mg Supp) 650 mg [place] Q4 PRN PRN Reason: Fever >100.4 F Last Admin: 04/22/17 16:30 Dose: 650 mg Albuterol/Ipratropium (Duoneb 3 Mg/0.5 Mg (3 Ml) Ud) 3 ml INH RQ6 PRN PRN Reason: Shortness of Breath Apixaban (Eliquis) 2.5 mg PO BID [facility] PRN Reason: Protocol Last Admin: 04/23/17 08:34 Dose: 2.5 mg Aspirin (Aspirin Chewable) 81 mg PO DAILY [facility] Last Admin: 04/23/17 08:32 Dose: 81 mg Atorvastatin Calcium (Lipitor) 40 mg PO HS [facility] Last Admin: 04/22/17 22:27 Dose: Not Given Bacitracin (Bacitracin Oint) 1 applic TOP BID [facility] Last Admin: 04/23/17 08:33 Dose: 1 applic Enalapril Maleate (Vasotec) 2.5 mg PO BID [facility] Last Admin: 04/23/17 08:37 Dose: 2.5 mg Glipizide (Glucotrol Xl) 10 mg PO BRKDIN [facility] Last Admin: 04/23/17 08:35 Dose: 10 mg Valproate Sodium 500 mg/ (Sodium Chloride) 105 mls @ 105 mls/hr IVPB Q12 [facility] PRN Reason: As Directed Last Admin: 04/23/17 08:33 Dose: 105 mls/hr Vancomycin HCl 1 gm/ Sodium (Chloride) 250 mls @ 166.667 mls/hr IVPB DAILY@ 2000 [facility] PRN Reason: Protocol Last Admin: 04/22/17 20:49 Dose: 166.667 mls/hr Meropenem 1 gm/ Sodium (Chloride) 100 mls @ 100 mls/hr IVPB Q8 [facility] PRN Reason: Protocol Last Admin: 04/23/17 08:35 Dose: 100 mls/hr Propofol (Diprivan) 1,000 mg in 100 mls @ 2.313 mls/hr IV .Q24H [facility]RIAN; 5 MCG/KG/ MIN PRN Reason: Protocol Stop: 04/24/17 14:19 Insulin Detemir (Levemir) 24 units SC HS [facility] Insulin Human Regular (Humulin R) 0 units SC ACHS [facility] PRN Reason: Protocol Last Admin: 04/23/17 12:01 Dose: 1 units Pantoprazole Sodium (Protonix Inj) 40 mg IVP DAILY [facility] Last Admin: 04/23/17 08:36 Dose: 40 mg Repaglinide (Prandin) 1 mg PO TID [facility] Last Admin: 04/23/17 12:00 Dose: 1 mg Sitagliptin Phosphate (Januvia) 50 mg PO BID [facility] Last Admin: 04/23/17 08:35 Dose: 50 mg - Labs Labs: 04/23/17 05:04 04/23/17 05:04 PT 9.7 Seconds (9.8-13.1) L 04/12/17 21:15 INR 0.9 (0.9-1.2) 04/12/17 21:15 APTT 26.0 Seconds (25.6-37.1) 04/12/17 21:15 - Constitutional Appears: No Acute Distress - Head Exam Head Exam: NORMAL INSPECTION - Eye Exam Eye Exam: PERRL - ENT Exam Additional comments: Intubated - Neck Exam Neck Exam: Normal Inspection - Respiratory Exam Respiratory Exam: Decreased Breath Sounds (R base) - Cardiovascular Exam Cardiovascular Exam: REGULAR RHYTHM - GI/Abdominal Exam GI & Abdominal Exam: Soft, Normal Bowel Sounds - Extremities Exam Extremities Exam: Normal Inspection - Neurological Exam Additional comments: Intubated, sedated - Psychiatric Exam Additional comments: Sedated - Skin Skin Exam: Warm Assessment and Plan (1) Respiratory failure Status: Acute (2) Aspiration pneumonia Status: Acute (3) CVA (cerebral vascular accident) Status: Acute - Assessment and Plan (Free Text) Plan: Continue ventilatory support, attempt of weaning , continue Katelynn [facility] ICU Time: 38 min.
[2017-04-23] MEDS: Propofol 10 mg/ml 1,000 MG/100 ML VIAL IV SCH (16:59)
[2017-04-24] MEDS: Meropenem 1 GM in Sodium Chloride 0.9% 100 ML IVPB SCH ×3 (01:35→16:33)
[2017-04-24 06:03] LABS: ABG ALLEN TEST YES; ARTERIAL BLOOD GAS HCO3 32.3 mmol/L (21-28); ARTERIAL BLOOD GAS HEMOGLOBIN 12.5 g/dL (11.7-17.4); ARTERIAL BLOOD GAS O2 CAPACITY 17.4 mL/dL (16-24); ARTERIAL BLOOD GAS O2 CONTENT 17.3 ML/dL (15-23); ARTERIAL BLOOD GAS O2 SAT 99.4 % (95-98); ARTERIAL BLOOD GAS PCO2 42 mm/Hg (35-45); ARTERIAL BLOOD GAS PH 7.51 (7.35-7.45); ARTERIAL BLOOD GAS PO2 137 mm/Hg (80-100); ARTERIAL BLOOD GAS TCO2 34.8 mmol/L (22-28)
[2017-04-24] MEDS: Insulin Regular 100 units/ml SC SCH ×4 (06:33→21:23)
[2017-04-24 07:05] LABS: HEMOGLOBIN 12.1 g/dL (12.0-16.0); MEAN CELL VOLUME 89.8 fl (81.0-99.0); MEAN CORPUSCULAR HEMOGLOBIN 28.1 pg (27.0-31.0); MEAN CORPUSCULAR HGB CONC 31.3 g/dL (33.0-37.0); RBC 4.32 Mil/uL (3.80-5.20); RED CELL DISTRIBUTION WIDTH 15.3 % (11.5-14.5); WHITE BLOOD COUNT 5.8 K/uL (4.8-10.8)
[2017-04-24 07:29] LABS: BLOOD UREA NITROGEN 33 mg/dl (7-17); CALCIUM 8.5 mg/dL (8.4-10.2); GFR AFRICAN-AMERICAN > 60; GFR NON-AFRICAN AMERICAN > 60
[2017-04-24] MEDS ORDERED: Potassium Chloride 20 MEQ in Sodium Chloride 0.45% 1,000 ML IV SCH (08:00)
[2017-04-24] MEDS: Bacitracin OINT 15GM TOP SCH ×2 (08:35→16:32)
[2017-04-24] MEDS: Valproate 500 MG in Sodium Chloride 0.9% 100 ML IVPB SCH ×2 (08:36→20:14)
[2017-04-24] MEDS: Propofol 10 mg/ml 1,000 MG/100 ML VIAL IV SCH (08:38)
[2017-04-24] MEDS: GlipiZIDE 10 mg SR Tab PO SCH ×2 (08:40→16:33)
--- NOTE | 2017-04-24 08:51 | CP.PCM.PN ---
Subjective - Date & Time of Evaluation Date of Evaluation: 04/24/17 Time of Evaluation: 08:48 - Subjective Subjective: Ms. Black was seen and examined at the bedside in ICU. She remains on mechanical ventilator with a PRVC mode. She remains responsive to pain stimuli and able to wave her left hand to stop any tactile stimuli. She remains on sedation drip of propofol. She has a bilateral wrist restraints for patient safety. She has minimal movement of the right side of her body, but not the left side. She response to tactile stimuli on the left side.She also has NGT for feeding and medication administration. She had febrile episode last night with max temp 100.7 tylenol was given. The latest temp is 100.3. on antibiotic therapy. Objective - Vital Signs/Intake and Output Vital Signs (last 24 hours): Temp Pulse Resp BP Pulse Ox 100.3 F H 93 H 14 158/76 H 99 04/24/17 05:23 04/24/17 06:00 04/24/17 06:00 04/24/17 06:00 04/24/17 06:00 Intake and Output: 04/24/17 04/24/17 06:59 18:59 Intake Total 932 100 Output Total 400 Balance 532 100 - Medications Medications: Current Medications Acetaminophen (Tylenol 325mg Tab) 650 mg PO Q6 PRN PRN Reason: fever > 100.4 Last Admin: 04/24/17 04:23 Dose: 650 mg Acetaminophen (Tylenol 650 Mg Supp) 650 mg MS Q4 PRN PRN Reason: Fever >100.4 F Last Admin: 04/22/17 16:30 Dose: 650 mg Albuterol/Ipratropium (Duoneb 3 Mg/0.5 Mg (3 Ml) Ud) 3 ml INH RQ6 PRN PRN Reason: Shortness of Breath Apixaban (Eliquis) 2.5 mg PO BID [facility] PRN Reason: Protocol Last Admin: 04/24/17 08:40 Dose: 2.5 mg Aspirin (Aspirin Chewable) 81 mg PO DAILY [facility] Last Admin: 04/24/17 08:35 Dose: 81 mg Atorvastatin Calcium (Lipitor) 40 mg PO HS [facility] Last Admin: 04/23/17 22:36 Dose: 40 mg Bacitracin (Bacitracin Oint) 1 applic TOP BID [facility] Last Admin: 04/24/17 08:35 Dose: 1 applic Enalapril Maleate (Vasotec) 2.5 mg PO BID [facility] Last Admin: 04/24/17 08:42 Dose: 2.5 mg Glipizide (Glucotrol Xl) 10 mg PO BRKDIN [facility] Last Admin: 04/24/17 08:40 Dose: 10 mg Valproate Sodium 500 mg/ (Sodium Chloride) 105 mls @ 105 mls/hr IVPB Q12 [facility] PRN Reason: As Directed Last Admin: 04/24/17 08:36 Dose: 105 mls/hr Vancomycin HCl 1 gm/ Sodium (Chloride) 250 mls @ 166.667 mls/hr IVPB DAILY@ 2000 [facility] PRN Reason: Protocol Last Admin: 04/23/17 20:30 Dose: 166.667 mls/hr Meropenem 1 gm/ Sodium (Chloride) 100 mls @ 100 mls/hr IVPB Q8 [facility] PRN Reason: Protocol Last Admin: 04/24/17 08:41 Dose: 100 mls/hr Propofol (Diprivan) 1,000 mg in 100 mls @ 2.313 mls/hr IV .Q24H [facility]RIAN; 5 MCG/KG/ MIN PRN Reason: Protocol Stop: 04/24/17 14:19 Last Admin: 04/24/17 08:38 Dose: 15 mcg/kg/min, 6.94 mls/hr Potassium Chloride 20 meq/ (Sodium Chloride) 1,010 mls @ 40 mls/hr IV .Q24H [facility] Stop: 04/25/17 08:00 Insulin Detemir (Levemir) 24 units SC HS [facility] Last Admin: 04/23/17 22:35 Dose: 24 units Insulin Human Regular (Humulin R) 0 units SC ACHS [facility] PRN Reason: Protocol Last Admin: 04/24/17 06:33 Dose: 2 units Pantoprazole Sodium (Protonix Inj) 40 mg IVP DAILY [facility] Last Admin: 04/24/17 08:42 Dose: 40 mg Repaglinide (Prandin) 1 mg PO TID [facility] Last Admin: 04/24/17 08:42 Dose: 1 mg Sitagliptin Phosphate (Januvia) 50 mg PO BID [facility] Last Admin: 04/24/17 08:41 Dose: 50 mg - Labs Labs: 04/24/17 06:00 04/24/17 06:00 PT 9.7 Seconds (9.8-13.1) L 04/12/17 21:15 INR 0.9 (0.9-1.2) 04/12/17 21:15 APTT 26.0 Seconds (25.6-37.1) 04/12/17 21:15 - Constitutional Appears: No Acute Distress - Head Exam Head Exam: NORMAL INSPECTION - Neurological Exam Neuro motor strength exam: Left Upper Extremity: 0, Right Upper Extremity: 2/1, Left Lower Extremity: 0, Right Lower Extremity: 2/1 Additional comments: She has minimal movement of the right side of her body, but not the left side. She response to tactile stimuli on the left side. Assessment and Plan (1) CVA (cerebral vascular accident) Assessment & Plan: Case discussed with Dr. Lyons, continue all current medical therapy, REcommend repeat CT of the head without contrast to follow up the patient brain infarction and her lost of function to the left side. Status: Acute
--- NOTE | 2017-04-24 10:20 | RAD ---
PROCEDURE: CHEST RADIOGRAPH, 1 VIEW HISTORY: intubated, on vent, ?pneumonia COMPARISON: 04/23/2017 FINDINGS: LUNGS: Ill-defined opacity at right base. Rule out pneumonia. Followup advised. This may be due in part to right pleural effusion, however. PLEURA: Small right pleural effusion. No left pleural effusion. No pneumothorax. CARDIOVASCULAR: ET tube and NG tube unchanged. No congestive change. OSSEOUS STRUCTURES: No significant abnormalities. VISUALIZED UPPER ABDOMEN: Normal. OTHER FINDINGS: None. IMPRESSION: Right basilar opacity. Right pleural effusion. Rule out pneumonia. Lines and tubes unchanged.
--- NOTE | 2017-04-24 11:11 | CT ---
PROCEDURE: CT HEAD WITHOUT CONTRAST. HISTORY: follow up stroke COMPARISON: 04/20/2017 04/15/2017 TECHNIQUE: Axial computed tomography images were obtained through the head/brain without intravenous contrast. Radiation dose: Total exam DLP = 857.29 mGy-cm. This CT exam was performed using one or more of the following dose reduction techniques: Automated exposure control, adjustment of the mA and/or kV according to patient size, and/or use of iterative reconstruction technique. FINDINGS: HEMORRHAGE: No intracranial hemorrhage. BRAIN: Re- demonstration of subacute ischemic change right mcleod radiata/ centrum semiovale. No change in extent compared to prior examination. No evidence of new/ acute infarct. Old bilateral thalamic lacunar infarcts. Old left caudate nucleus head lacunar infarct. Old right lentiform nucleus lacunar infarct. VENTRICLES: Unremarkable. No hydrocephalus. CALVARIUM: Unremarkable. PARANASAL SINUSES: Chronic pansinusitis. Dependent fluid in left maxillary antrum. Rule out acute sinusitis. Correlate clinically. MASTOID AIR CELLS: Unremarkable as visualized. No inflammatory changes. OTHER FINDINGS: None. IMPRESSION: No evidence of acute infarct. Subacute infarct right mcleod radiata/centrum semiovale. Bilateral old basal ganglia and thalamic lacunar infarcts. No acute hemorrhage.
--- NOTE | 2017-04-24 16:01 | CP.PCM.PN ---
Subjective - Date & Time of Evaluation Date of Evaluation: 04/24/17 Time of Evaluation: 16:00 - Subjective Subjective: F/U Respiratory Failure Intubated, sedated Objective - Vital Signs/Intake and Output Vital Signs (last 24 hours): Temp Pulse Resp BP Pulse Ox 98 F 85 14 149/71 100 04/24/17 12:00 04/24/17 15:00 04/24/17 15:00 04/24/17 15:00 04/24/17 15:00 Intake and Output: 04/24/17 04/24/17 06:59 18:59 Intake Total 932 910 Output Total 400 155 Balance 532 755 - Medications Medications: Current Medications Acetaminophen (Tylenol 325mg Tab) 650 mg PO Q6 PRN PRN Reason: fever > 100.4 Last Admin: 04/24/17 04:23 Dose: 650 mg Acetaminophen (Tylenol 650 Mg Supp) 650 mg [place] Q4 PRN PRN Reason: Fever >100.4 F Last Admin: 04/22/17 16:30 Dose: 650 mg Albuterol/Ipratropium (Duoneb 3 Mg/0.5 Mg (3 Ml) Ud) 3 ml INH RQ6 PRN PRN Reason: Shortness of Breath Apixaban (Eliquis) 2.5 mg PO BID [facility] PRN Reason: Protocol Last Admin: 04/24/17 08:40 Dose: 2.5 mg Aspirin (Aspirin Chewable) 81 mg PO DAILY [facility] [place] Last Admin: 04/24/17 08:35 Dose: 81 mg Atorvastatin Calcium (Lipitor) 40 mg PO HS [facility] [place] Last Admin: 04/23/17 22:36 Dose: 40 mg Bacitracin (Bacitracin Oint) 1 applic TOP BID [facility] [place] Last Admin: 04/24/17 08:35 Dose: 1 applic Enalapril Maleate (Vasotec) 2.5 mg PO BID [facility] [place] Last Admin: 04/24/17 08:42 Dose: 2.5 mg Glipizide (Glucotrol Xl) 10 mg PO BRKDIN [facility] [place] Last Admin: 04/24/17 08:40 Dose: 10 mg Valproate Sodium 500 mg/ (Sodium Chloride) 105 mls @ 105 mls/hr IVPB Q12 [facility] PRN Reason: As Directed Last Admin: 04/24/17 08:36 Dose: 105 mls/hr Vancomycin HCl 1 gm/ Sodium (Chloride) 250 mls @ 166.667 mls/hr IVPB DAILY@ 2000 [facility] [place] PRN Reason: Protocol Last Admin: 04/23/17 20:30 Dose: 166.667 mls/hr Meropenem 1 gm/ Sodium (Chloride) 100 mls @ 100 mls/hr IVPB Q8 [facility] PRN Reason: Protocol Last Admin: 04/24/17 08:41 Dose: 100 mls/hr Potassium Chloride 20 meq/ (Sodium Chloride) 1,010 mls @ 40 mls/hr IV .Q24H [facility] Stop: 04/25/17 08:00 Last Admin: 04/24/17 09:25 Dose: 40 mls/hr Insulin Detemir (Levemir) 24 units SC HS [facility] [place] Last Admin: 04/23/17 22:35 Dose: 24 units Insulin Human Regular (Humulin R) 0 units SC ACHS [facility] [place] PRN Reason: Protocol Last Admin: 04/24/17 12:21 Dose: 1 units Pantoprazole Sodium (Protonix Inj) 40 mg IVP DAILY [facility] [place] Last Admin: 04/24/17 08:42 Dose: 40 mg Repaglinide (Prandin) 1 mg PO TID [facility] [place] Last Admin: 04/24/17 12:22 Dose: 1 mg Sitagliptin Phosphate (Januvia) 50 mg PO BID [facility] [place] Last Admin: 04/24/17 08:41 Dose: 50 mg - Labs Labs: 04/24/17 06:00 04/24/17 06:00 PT 9.7 Seconds (9.8-13.1) L 04/12/17 21:15 INR 0.9 (0.9-1.2) 04/12/17 21:15 APTT 26.0 Seconds (25.6-37.1) 04/12/17 21:15 - Constitutional Appears: Chronically Ill - Head Exam Head Exam: NORMAL INSPECTION - Eye Exam Eye Exam: PERRL - ENT Exam Additional comments: intubated - Neck Exam Neck Exam: Normal Inspection - Respiratory Exam Respiratory Exam: Rhonchi (scattered) - Cardiovascular Exam Cardiovascular Exam: REGULAR RHYTHM - GI/Abdominal Exam GI & Abdominal Exam: Soft, Normal Bowel Sounds - Extremities Exam Extremities Exam: Normal Inspection - Back Exam Back Exam: NORMAL INSPECTION - Neurological Exam Additional comments: intubated , sedated , minimal response to tactil stimuli R , L hemiparesia - Psychiatric Exam Additional comments: intubated , sedated - Skin Skin Exam: Warm Assessment and Plan (1) Respiratory failure Status: Acute (2) Aspiration pneumonia Status: Acute (3) CVA (cerebral vascular accident) Status: Acute - Assessment and Plan (Free Text) Plan: continue ventilatory support, CXR RLL PNA , continue Sukhdeep Garrett Vanco ICU Time: 37 min.
--- NOTE | 2017-04-24 17:04 | CP.PCM.PN ---
Subjective - Date & Time of Evaluation Date of Evaluation: 04/24/17 Time of Evaluation: 12:00 - Subjective Subjective: Pt was febrile this am 100.3 Remains intubated on Mech vent Sedated with Propofol NGT in place , tolerating tube feeding at 30 ml/hr I was able to observe pt moving right UE, RLE and LLE Pt responds to tactile stimuli by opening eyes Objective - Vital Signs/Intake and Output Vital Signs (last 24 hours): Temp Pulse Resp BP Pulse Ox 99.4 F 81 12 154/73 H 97 04/24/17 16:00 04/24/17 16:00 04/24/17 16:00 04/24/17 16:00 04/24/17 16:00 Intake and Output: 04/24/17 04/24/17 06:59 18:59 Intake Total 932 1250 Output Total 400 175 Balance 532 1075 - Medications Medications: Current Medications Acetaminophen (Tylenol 325mg Tab) 650 mg PO Q6 PRN PRN Reason: fever > 100.4 Last Admin: 04/24/17 04:23 Dose: 650 mg Acetaminophen (Tylenol 650 Mg Supp) 650 mg [place] Q4 PRN PRN Reason: Fever >100.4 F Last Admin: 04/22/17 16:30 Dose: 650 mg Albuterol/Ipratropium (Duoneb 3 Mg/0.5 Mg (3 Ml) Ud) 3 ml INH RQ6 PRN PRN Reason: Shortness of Breath Apixaban (Eliquis) 2.5 mg PO BID [facility] PRN Reason: Protocol Last Admin: 04/24/17 16:32 Dose: 2.5 mg Aspirin (Aspirin Chewable) 81 mg PO DAILY [facility] Last Admin: 04/24/17 08:35 Dose: 81 mg Atorvastatin Calcium (Lipitor) 40 mg PO HS [facility] Last Admin: 04/23/17 22:36 Dose: 40 mg Bacitracin (Bacitracin Oint) 1 applic TOP BID [facility] Last Admin: 04/24/17 16:32 Dose: 1 applic Enalapril Maleate (Vasotec) 2.5 mg PO BID [facility] Last Admin: 04/24/17 16:34 Dose: 2.5 mg Glipizide (Glucotrol Xl) 10 mg PO BRKDIN [facility] Last Admin: 04/24/17 16:33 Dose: 10 mg Valproate Sodium 500 mg/ (Sodium Chloride) 105 mls @ 105 mls/hr IVPB Q12 [facility] PRN Reason: As Directed Last Admin: 04/24/17 08:36 Dose: 105 mls/hr Vancomycin HCl 1 gm/ Sodium (Chloride) 250 mls @ 166.667 mls/hr IVPB DAILY@ 2000 [facility] PRN Reason: Protocol Last Admin: 04/23/17 20:30 Dose: 166.667 mls/hr Meropenem 1 gm/ Sodium (Chloride) 100 mls @ 100 mls/hr IVPB Q8 [facility] PRN Reason: Protocol Last Admin: 04/24/17 16:33 Dose: 100 mls/hr Potassium Chloride 20 meq/ (Sodium Chloride) 1,010 mls @ 40 mls/hr IV .Q24H [facility] Stop: 04/25/17 08:00 Last Admin: 04/24/17 09:25 Dose: 40 mls/hr Insulin Detemir (Levemir) 24 units SC HS [facility] Last Admin: 04/23/17 22:35 Dose: 24 units Insulin Human Regular (Humulin R) 0 units SC ACHS [facility] PRN Reason: Protocol Last Admin: 04/24/17 12:21 Dose: 1 units Pantoprazole Sodium (Protonix Inj) 40 mg IVP DAILY [facility] Last Admin: 04/24/17 08:42 Dose: 40 mg Repaglinide (Prandin) 1 mg PO TID [facility] Last Admin: 04/24/17 16:33 Dose: 1 mg Sitagliptin Phosphate (Januvia) 50 mg PO BID [facility] Last Admin: 04/24/17 16:33 Dose: 50 mg - Labs Labs: 04/24/17 06:00 04/24/17 06:00 PT 9.7 Seconds (9.8-13.1) L 04/12/17 21:15 INR 0.9 (0.9-1.2) 04/12/17 21:15 APTT 26.0 Seconds (25.6-37.1) 04/12/17 21:15 - Constitutional Appears: Chronically Ill - Head Exam Head Exam: NORMAL INSPECTION, NORMOCEPHALIC - Eye Exam Eye Exam: Normal appearance - ENT Exam ENT Exam: Mucous Membranes Dry, Normal External Ear Exam - Neck Exam Neck Exam: absent: Meningismus - Respiratory Exam Respiratory Exam: Rales, Rhonchi. absent: Wheezes Additional comments: Intubated on Vent - Cardiovascular Exam Cardiovascular Exam: REGULAR RHYTHM, +S1, +S2 - GI/Abdominal Exam GI & Abdominal Exam: Soft, Normal Bowel Sounds - Extremities Exam Extremities Exam: Normal Capillary Refill - Back Exam Back Exam: absent: CVA tenderness (R) - Neurological Exam Additional comments: Sedated on Vent however opens eyes on tactile stimuli noted to move left extremities, observed to move also right LE - Skin Skin Exam: Dry, Normal Color, Warm Assessment and Plan - Assessment and Plan (Free Text) Assessment: 72 y/o F PMH DM, HTN, HLD brought to the ED with acutely worsening alteration of mental status ( pt has some baseline dementia) and not as verbal . CT head was neg for acute CVA or bleed. Patient glucose was elevated 563. Patient presented with left facial droop and and some expressive aphasia. MRI head showed acute stroke in right frontal lobe white matter Neuro consulted and patient admitted to telemetry.She was started on ASA, Statin , plavix,lovenox , Insulin and IVF .Her BP initially was kept elevated to allow permissive hypertension. 2/2 While in telemetry , the patient developed worsening BAILON and some left arm weakness. Patient became confused , agitated , restless ,not following any commands. She also started to have fever. Repeat MRI of the Brain : showed acute/ subacute stroke in right mcleod radiata and centrum ovale She was then transferred to ICU for close monitoring She continued to spike fevers for > 48 hours with no obvious source of infection and normal WBC count. All work up sent including CXR, UA,urine cx, blood cx and were negative for infection so fever thought to be of central origin and no antibiotics were started 2/ Rpt CT of head : stable CVA She developed episodes of agitation and restlessness requiring 1:1 for safety and medication sedation 2/ While in Tele , [employer] called for stridor and respiratory distress . She developed acute hypercapnic respiratory failure was intubated and transferred to ICU. CXR : new infiltrate, poss Asp PNA 1. Acute hypercapnic respiratory failure Most likely secondary to aspiration pneumonia and patient's inability to handle secretions due to AMS/ CVA currently intubated on MV PRVC AC mode 12/500/5/80% Episodes of Stridor were noted before intubation and trial of ventilation by BIPAP , solumedrol and Duonebs with little benefit since PCO2 noted to trend up to 72. Large respiratory secretion suctioned during intubation and cultures sent Initial CXr showed new infiltrate . Started on Vanco and Zosyn IV - CXR showed vascular congestion and possible RLL infiltrate Continue vent management ID consulted and antibiotics changed to Meropenam and Vancomycin Pulmonary consulted 2. Progressive Acute ischemic stroke with AMS / lethargy worsening mental status, unable to handle secretions, aspirating , with acute respiratory failure requiring intubation initial presentation of patient was : acute stroke to right frontal lobe that progressed to right mcleod radiata and centrum semiovale stroke Repeat CT head 04/17 showed Stable appearance of acute/subacute right mcleod radiata/ centrum semiovale and subacute small left mcleod radiata/centrum semiovale infarctions. No significant interval change. Neuro following Continue ASA, statin, glycemic control, eliquis( empirically started by neuro ) Tylenol PRN for fever on Depakote 500 mg IV Q12 Cardio consulted for possible JUSTYNA - on hold due to pt's medical condition ( Dr Serrato wants pt to do JUSTYNA in [facility] ) Pt empiricaly started on Eliquis Started BP control with low dose ACEI Enalapril 2.5 mg BID Feeding restarted , increased to 30 ml/hr today 3. Suspected aspiration Pneumonia With CXR findings of new right lobe infiltrate prior to intubation and large secretions suctioned during intubation On IV meropenem and Vanco ID and pulmonary on Consult Blood c/s : neg so far Continue Vent management, Duonebs Repeat CXR today stable infiltrate 4 .Uncontrolled DM with hyperglycemia Continue accuchecks, insulin coverage Increase Levemir to 28 units q hs, cont Glucotrol, prandin , Januvia Hgb A1c 16 5. Hypertension permissive hypertension while stroke was evolving Started enalapril Low dose 6. Dyslipidemia c/w Atorvastatin 40 mg PO 7. Diabetic foot calluses podiatry consulted and following Doppler US of LE - good arterial flow DVT ppx on eliquis
[2017-04-24] MEDS: Insulin Detemir 100 Units/ml Inj SC SCH (21:23)
--- NOTE | 2017-04-25 00:09 | PN ---
DATE: 04/24/2017 LOCATION: Patient in ICU, bed 432. TIME SPENT: 35 minutes. SUBJECTIVE: The patient is seen and evaluated at the bedside. Past medical, surgical, social history noted. A 72-year-old female with hypertension, hyperlipidemia, diabetes mellitus type 2, coronary artery disease, bilateral hallux ulceration, admitted through emergency room on 04/12/2017, for evaluation of altered mental status, onset a few months ago. 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 PHYSICAL EXAMINATION: VITAL SIGNS: Temperature 99.4, heart rate 81, blood pressure 154/73, mean arterial pressure 100, oxygen saturation 97%. INTAKE AND OUTPUT: Intake 1622, output 705. Positive balance of 917. HEAD, EYES, EARS, NOSE AND THROAT: Atraumatic and normocephalic. Pupils 2-3 mm, poorly reactive. Conjunctivae pale. Sclerae white. NECK: Supple. Trachea central. CHEST: Bilateral rhonchi. No audible wheeze. HEART: Rhythm regular. S1, S2 normal. ABDOMEN: Bowel sounds present. Soft. EXTREMITIES: Normal capillary refill. NEUROLOGIC: Unchanged. CURRENT MEDICATIONS: Include Tylenol 650 q. 6 h. p.r.n., DuoNeb 3 mL via nebulizer q. 6 h. Eliquis 2.5 mg b.i.d., aspirin 81 mg daily, Lipitor 40 mg daily, bacitracin one application topically twice daily, Vasotec 2.5 mg twice daily, Glucotrol 10 mg daily, Levemir 24 units subcu at bedtime, Accu-Chek with regular insulin coverage, meropenem 1 g IV q. 8 hours, Protonix 40 IV daily, sodium chloride with 20 of KCl at 40 mL/hour, Prandin 1 mg three times daily, Januvia 50 mg twice daily, valproate 500 mg IV q. 12 h., and vancomycin 1 g IV daily. LABORATORY DATA: WBC 5.8, hemoglobin 12.1, hematocrit 38.8, platelet count 193. PT 9.7, INR 0.9, PTT 26. ABG; pH of 7.51, pCO2 of 42, pO2 137, saturation 99.4 on AC 12, 580%, PEEP of 5. SMA-7; sodium 151, potassium 3.6, chloride of 109, CO2 of 35, blood urea nitrogen 33, creatinine 0.7, glucose 177. Urinalysis, rbc 20. Leukocyte esterase negative. Toxicology screen; valproic acid 57.6. Stool Clostridium difficile , influenza A and B negative. Microbiology, urine culture positive for yeast and E. coli. Head CT repeated this morning shows no intracranial hemorrhage, re-demonstration of subacute ischemic change, right mcleod radiata. No acute infarct, bilateral old basal ganglia and thalamic lacunar infarct. IMPRESSION: 1. Pulmonary: Acute hypercapnic hypoxic respiratory failure secondary to aspiration pneumonia. Currently, remains intubated on mechanical ventilation, saturating well, adequate oxygenation. Continue DuoNeb 3 mL via nebulizer q. 6 hours, pulmonary toilet. 2. Neurological: Progressive acute ischemic stroke with altered mental status and lethargy. CT head showed stable appearance of acute and subacute right mcleod radiata, centrum semiovale, and subacute small left mcleod radiata and centrum semiovale infarctions. No significant interval change. Currently, on aspirin, statin, maintain blood sugar less than 180, Eliquis 2.5 mg q. 12 h. Noted to have a low grade fever, suspected central in origin, controlled with Tylenol. 3. Infectious Disease: Suspected aspiration pneumonia secondary to poor mental status, currently on IV meropenem and vancomycin. Appreciate ID followup. 4. Endocrine. Uncontrolled diabetes with hyperglycemia, on Levemir. Accu-Chek with regular insulin coverage. Also, on Glucotrol, Prandin, Januvia. 5.cardiac ; Hypertension controlled. Currently, on enalapril low dose. Hyperlipidemia, on atorvastatin. 6.Endocrine: Diabetic foot calluses, Podiatry consult. Appreciate ultrasound of the lower extremity with a good arterial flow. The patient is not a candidate for weaning today due to the poor mental status. Janes Lopez MD [facility] # [id number] MTDD
[2017-04-25] MEDS: Meropenem 1 GM in Sodium Chloride 0.9% 100 ML IVPB SCH ×3 (00:26→16:10)
[2017-04-25 04:49] LABS: ABG ALLEN TEST YES; ARTERIAL BLOOD GAS HCO3 31.1 mmol/L (21-28); ARTERIAL BLOOD GAS HEMOGLOBIN 11.9 g/dL (11.7-17.4); ARTERIAL BLOOD GAS O2 CAPACITY 16.7 mL/dL (16-24); ARTERIAL BLOOD GAS O2 CONTENT 16.6 ML/dL (15-23); ARTERIAL BLOOD GAS O2 SAT 99.3 % (95-98); ARTERIAL BLOOD GAS PCO2 42 mm/Hg (35-45); ARTERIAL BLOOD GAS PH 7.49 (7.35-7.45); ARTERIAL BLOOD GAS PO2 161 mm/Hg (80-100); ARTERIAL BLOOD GAS TCO2 33.3 mmol/L (22-28)
[2017-04-25 05:30] LABS: ALB/GLOB RATIO 0.7 (1.0-2.1); ALBUMIN 2.7 g/dL (3.5-5.0); ALT/SGPT 22 U/L (9-52); AST/SGOT 21 U/L (14-36); BLOOD UREA NITROGEN 26 mg/dl (7-17); CALCIUM 8.1 mg/dL (8.4-10.2); GFR AFRICAN-AMERICAN > 60; GFR NON-AFRICAN AMERICAN > 60
[2017-04-25 06:12] LABS: HEMOGLOBIN 11.5 g/dL (12.0-16.0); MEAN CELL VOLUME 88.3 fl (81.0-99.0); MEAN CORPUSCULAR HEMOGLOBIN 28.4 pg (27.0-31.0); MEAN CORPUSCULAR HGB CONC 32.1 g/dL (33.0-37.0); RBC 4.05 Mil/uL (3.80-5.20)
[2017-04-25] MEDS: Insulin Regular 100 units/ml SC SCH ×5 (07:06→22:01)
[2017-04-25] MEDS: Valproate 500 MG in Sodium Chloride 0.9% 100 ML IVPB SCH ×2 (08:49→22:00)
[2017-04-25] MEDS: GlipiZIDE 10 mg SR Tab PO SCH (08:53)
[2017-04-25] MEDS: Bacitracin OINT 15GM TOP SCH ×2 (08:54→16:10)
--- NOTE | 2017-04-25 08:56 | CP.PCM.PN ---
Subjective - Date & Time of Evaluation Date of Evaluation: 04/25/17 Time of Evaluation: 08:50 - Subjective Subjective: Ms. Black was seen and examined at the bedside in ICU. She remains on mechanical ventilation on PRVC mode. Currently, she is receiving propofol as sedation her respiration is above set ventilator. She is responsive to pain stimuli, pupils reactive to light but sluggish. She moves her right lower extremity spontaneously and improved movement of the left lower extremity. She remains with bilateral wrist restraints for patient safety with move movements in her right side than the left side. CT scan of the head yesterday showed no evidence of acute infarct. Subacute infarct right mcleod radiata/ centrum semiovale. Bilateral old basal ganglia and thalamic lacunar infarcts. No acute hemorrhage. Objective - Vital Signs/Intake and Output Vital Signs (last 24 hours): Temp Pulse Resp BP Pulse Ox 98.5 F 68 12 152/67 H 97 04/25/17 08:00 04/25/17 08:00 04/25/17 08:00 04/25/17 08:00 04/25/17 08:00 Intake and Output: 04/25/17 04/25/17 06:59 18:59 Intake Total 1664 70 Output Total 400 Balance 1264 70 - Medications Medications: Current Medications Acetaminophen (Tylenol 325mg Tab) 650 mg PO Q6 PRN PRN Reason: fever > 100.4 Last Admin: 04/24/17 04:23 Dose: 650 mg Acetaminophen (Tylenol 650 Mg Supp) 650 mg [place] Q4 PRN PRN Reason: Fever >100.4 F Last Admin: 04/22/17 16:30 Dose: 650 mg Albuterol/Ipratropium (Duoneb 3 Mg/0.5 Mg (3 Ml) Ud) 3 ml INH RQ6 PRN PRN Reason: Shortness of Breath Apixaban (Eliquis) 2.5 mg PO BID [facility] PRN Reason: Protocol Last Admin: 04/24/17 16:32 Dose: 2.5 mg Aspirin (Aspirin Chewable) 81 mg PO DAILY [facility] Last Admin: 04/24/17 08:35 Dose: 81 mg Atorvastatin Calcium (Lipitor) 40 mg PO HS [facility] Last Admin: 04/24/17 21:19 Dose: 40 mg Bacitracin (Bacitracin Oint) 1 applic TOP BID [facility] Last Admin: 04/24/17 16:32 Dose: 1 applic Enalapril Maleate (Vasotec) 2.5 mg PO BID [facility] Last Admin: 04/24/17 16:34 Dose: 2.5 mg Glipizide (Glucotrol Xl) 10 mg PO BRKDIN [facility] Last Admin: 04/24/17 16:33 Dose: 10 mg Valproate Sodium 500 mg/ (Sodium Chloride) 105 mls @ 105 mls/hr IVPB Q12 [facility] PRN Reason: As Directed Last Admin: 04/25/17 08:49 Dose: 105 mls/hr Vancomycin HCl 1 gm/ Sodium (Chloride) 250 mls @ 166.667 mls/hr IVPB DAILY@ 2000 [facility] PRN Reason: Protocol Last Admin: 04/24/17 20:17 Dose: 166.667 mls/hr Meropenem 1 gm/ Sodium (Chloride) 100 mls @ 100 mls/hr IVPB Q8 [facility] PRN Reason: Protocol Last Admin: 04/25/17 00:26 Dose: 100 mls/hr Insulin Detemir (Levemir) 28 units SC HS [facility] Last Admin: 04/24/17 21:23 Dose: 28 units Insulin Human Regular (Humulin R) 0 units SC ACHS [facility] PRN Reason: Protocol Last Admin: 04/25/17 07:07 Dose: 2 units Pantoprazole Sodium (Protonix Inj) 40 mg IVP DAILY [facility] Last Admin: 04/24/17 08:42 Dose: 40 mg Repaglinide (Prandin) 1 mg PO TID [facility] Last Admin: 04/24/17 16:33 Dose: 1 mg Sitagliptin Phosphate (Januvia) 50 mg PO BID [facility] Last Admin: 04/24/17 16:33 Dose: 50 mg - Labs Labs: 04/25/17 04:45 04/25/17 04:45 PT 9.7 Seconds (9.8-13.1) L 04/12/17 21:15 INR 0.9 (0.9-1.2) 04/12/17 21:15 APTT 26.0 Seconds (25.6-37.1) 04/12/17 21:15 - Constitutional Appears: No Acute Distress - Head Exam Head Exam: NORMAL INSPECTION - Neurological Exam Neuro motor strength exam: Left Upper Extremity: 2/1, Right Upper Extremity: 3, Left Lower Extremity: 2/1, Right Lower Extremity: 3 Additional comments: She is responsive to pain stimuli and improved movement of the left side. Assessment and Plan (1) CVA (cerebral vascular accident) Assessment & Plan: Case discussed with Dr. Alberts, continue all current medical regimen. There is no new recommendation from neurology. Status: Acute
--- NOTE | 2017-04-25 09:06 | PN ---
CRITICAL CARE PROGRESS NOTE DATE: 04/23/2017 LOCATION: The patient in ICU, bed 432. TIME SPENT: 35 minutes. SUBJECTIVE: The patient is seen and evaluated at the bedside. Past medical, surgical and social history noted. Events since admission reviewed. A 72-year-old female with past medical history significant for diabetes, hypertension, hyperlipidemia, admitted with acute worsening of mental status. The patient has baseline dementia and not verbal. CT negative for acute CVA or bleed. The patient glucose was noted to be 563. The patient presented with left facial droop and some expressive aphasia. MRI of head showed acute stroke in the right frontal lobe white matter. Neuro consult and the patient admitted to telemetry. The patient was started on aspirin, statin, Plavix, Lovenox, insulin and IV fluid. Her blood pressure initially was kept elevated to allow permissive hypertension. While on telemetry, the patient had developed worsening headache and some left arm weakness. The patient became confused, agitated, restless not following any commands. She was also noted to have a fever. Repeat MRI of the brain showed acute to subacute stroke in the right mcleod radiata and centrum ovale. The patient was transferred to ICU for close monitoring. The patient continued to spike temperatures for more than 48 hours with an obvious source of infection and normal WBC count. All workup sent including chest x-ray. Urinalysis, urine culture and blood culture were negative for infection so the fever was thought to be of central origin and antibiotic was started. On 04/17/[address] head showed stable CVA. The patient developed episodes of agitation, restlessness requiring one to one observation. On 04/20/2017 She developed acute hypercapnic respiratory failure, intubated and admitted to ICU. The patient remains intubated and sedated on propofol drip. PHYSICAL EXAMINATION: VITAL SIGNS: Temperature 98, heart rate 85, blood pressure 132/67, respiratory rate 12 and oxygen saturation 99%. Intake 599 and output 900. Negative balance 301. HEAD, EYES, EARS, NOSE AND THROAT: Normocephalic. Oral mucosa moist. NECK: Supple. CHEST: Bilateral breath sounds, clear to auscultation anteriorly and laterally. HEART: Rhythm regular. S1 and S2 normal. ABDOMEN: Bowel sounds present. Soft. EXTREMITIES: No clubbing, cyanosis, no palpable cord. CURRENT MEDICATIONS: Include Tylenol 650 q.6 p.r.n., albuterol/Atrovent inhalation q.6 p.r.n., Eliquis 2.5 mg b.i.d., aspirin 81 mg daily, Lipitor 40 mg daily, bacitracin ointment one application topically twice daily, Vasotec 2.5 mg twice daily, Glucotrol 10 mg p.o. with breakfast, Levemir 24 units subcu at bedtime, Accu-Chek with regular insulin coverage, meropenem 1 g IV q.8, Protonix 40 IV daily, Diprivan drip at 5 mcg per kg per minute, Prandin 1 mg p.o. three times daily, Januvia 50 mg b.i.d., valproate 500 mg IV q.12 and vancomycin 1 g IV daily. LABORATORY DATA: WBC 8.8, hemoglobin 12.6, hematocrit 40.3, platelet count of 192, neutrophils 73.1, lymphocytes 15.7 and monocytes 10.15. PT 9.7 and INR 0.9. D-dimer 1660. ABG; pH 7.52, pCO2 of 44 and pO2 of 86. On AC 12, 500, FIO2 80%. SMA-7; sodium 150, potassium 3.7, chloride 104, CO2 of 34, blood urea nitrogen 40, creatinine 0.7 and glucose 178. Urinalysis; wbc 4, epithelial cells less than 1 and bacteria many. Toxicology; valproic acid 57.6. Influenza A and B negative. Stool for C. diff negative. Microbiology; urine culture, yeast species and E. coli positive. IMPRESSION: Acute hypercapnic respiratory failure secondary to aspiration pneumonia, altered mental status/cerebrovascular accident, currently intubated on mechanical ventilation with FIO2 of 80%, reduce FIO2 as tolerated to maintain pO2 more than 70. Continue DuoNeb q6hrs._ pulmonary toilet. suspected aspiration pneumonia, currently on vancomycin and Zosyn. Status post acute ischemic stroke with altered mental status and lethargy, worsening mental status, unable to handle secretions aspirating with acute respiratory failure on mechanical assisted ventilation. Repeat CT shows stable appearance of acute to subacute right mcleod radiata, centrum semiovale and subacute small left mcelod radiata semiovale infarction. Awaiting for possible transesophageal echocardiography. Continue on Eliquis Uncontrolled diabetes mellitus with hyperglycemia on Accu-Chek with insulin coverage, Levemir increased to 24 units at bedtime on Prandin and Januvia. The patient's hemoglobin A1c is 16 suggesting poorly controlled diabetes prior to the admission. Permissive hypertension, on enalapril low-dose. Hyperlipidemia on atorvastatin. Diabetic foot calluses, Podiatry consult requested and following. Doppler ultrasound lower extremity; good arteriogram flow. Continue deep venous thrombosis and gastrointestinal prophylaxis. Janes Lopez MD MTDD
--- NOTE | 2017-04-25 11:26 | RAD ---
HISTORY: Re-evaluate; intubated. COMPARISON: Comparison chest dated 04/24/2017 FINDINGS: In situ ETT tip which lies approximately 3.77 cm above james. NGT is present, tip of which lies is poorly seen though distal aspect well below EG action probably midline or minor. LUNGS: Opacity right mid to lower lung base may represent some combination of atelectasis/ infiltrate as well as moderate-sized effusion. Suspect minimal left basilar atelectasis. PLEURA: No significant pleural effusion identified, no pneumothorax apparent. CARDIOVASCULAR: Normal. OSSEOUS STRUCTURES: No significant abnormalities. VISUALIZED UPPER ABDOMEN: Normal. OTHER FINDINGS: None. IMPRESSION: ETT and NGT as detailed above. Re- demonstrated is an opacity in theright mid to lower lung base may represent some combination of atelectasis/ infiltrate as well as moderate-sized effusion. Suspect minimal left basilar atelectasis.
--- NOTE | 2017-04-25 11:29 | CP.PCM.PN ---
Subjective - Date & Time of Evaluation Date of Evaluation: 04/25/17 Time of Evaluation: 11:00 - Subjective Subjective: No fever for more than 24 hrs remains intubated , on Mech Vent opens eyes to tactile stimuli tolerating tube feeding at 30 ml/hr On Diprivan for sedation Objective - Vital Signs/Intake and Output Vital Signs (last 24 hours): Temp Pulse Resp BP Pulse Ox 98.5 F 67 12 131/73 99 04/25/17 08:00 04/25/17 11:00 04/25/17 11:00 04/25/17 11:00 04/25/17 11:00 Intake and Output: 04/25/17 04/25/17 06:59 18:59 Intake Total 1664 430 Output Total 400 Balance 1264 430 - Medications Medications: Current Medications Acetaminophen (Tylenol 325mg Tab) 650 mg PO Q6 PRN PRN Reason: fever > 100.4 Last Admin: 04/24/17 04:23 Dose: 650 mg Acetaminophen (Tylenol 650 Mg Supp) 650 mg [place] Q4 PRN PRN Reason: Fever >100.4 F Last Admin: 04/22/17 16:30 Dose: 650 mg Albuterol/Ipratropium (Duoneb 3 Mg/0.5 Mg (3 Ml) Ud) 3 ml INH RQ6 PRN PRN Reason: Shortness of Breath Apixaban (Eliquis) 2.5 mg PO BID [facility] PRN Reason: Protocol Last Admin: 04/25/17 08:52 Dose: 2.5 mg Aspirin (Aspirin Chewable) 81 mg PO DAILY [facility] Last Admin: 04/25/17 08:53 Dose: 81 mg Atorvastatin Calcium (Lipitor) 40 mg PO HS [facility] Last Admin: 04/24/17 21:19 Dose: 40 mg Bacitracin (Bacitracin Oint) 1 applic TOP BID [facility] Last Admin: 04/25/17 08:54 Dose: 1 applic Enalapril Maleate (Vasotec) 2.5 mg PO BID [facility] Last Admin: 04/25/17 08:52 Dose: 2.5 mg Glipizide (Glucotrol Xl) 10 mg PO BRKDIN [facility] Last Admin: 04/25/17 08:53 Dose: 10 mg Valproate Sodium 500 mg/ (Sodium Chloride) 105 mls @ 105 mls/hr IVPB Q12 [facility] PRN Reason: As Directed Last Admin: 04/25/17 08:49 Dose: 105 mls/hr Vancomycin HCl 1 gm/ Sodium (Chloride) 250 mls @ 166.667 mls/hr IVPB DAILY@ 2000 [facility] PRN Reason: Protocol Last Admin: 04/24/17 20:17 Dose: 166.667 mls/hr Meropenem 1 gm/ Sodium (Chloride) 100 mls @ 100 mls/hr IVPB Q8 [facility] PRN Reason: Protocol Last Admin: 04/25/17 09:22 Dose: 100 mls/hr Insulin Detemir (Levemir) 28 units SC HS [facility] Last Admin: 04/24/17 21:23 Dose: 28 units Insulin Human Regular (Humulin R) 0 units SC ACHS [facility] PRN Reason: Protocol Last Admin: 04/25/17 11:26 Dose: 1 units Pantoprazole Sodium (Protonix Inj) 40 mg IVP DAILY [facility] Last Admin: 04/25/17 08:53 Dose: 40 mg Repaglinide (Prandin) 1 mg PO TID [facility] Last Admin: 04/25/17 08:52 Dose: 1 mg Sitagliptin Phosphate (Januvia) 50 mg PO BID [facility] Last Admin: 04/25/17 08:53 Dose: 50 mg - Labs Labs: 04/25/17 04:45 04/25/17 04:45 PT 9.7 Seconds (9.8-13.1) L 04/12/17 21:15 INR 0.9 (0.9-1.2) 04/12/17 21:15 APTT 26.0 Seconds (25.6-37.1) 04/12/17 21:15 - Constitutional Appears: Chronically Ill - Head Exam Head Exam: NORMAL INSPECTION, NORMOCEPHALIC - Eye Exam Eye Exam: Normal appearance - ENT Exam ENT Exam: Mucous Membranes Dry, Normal External Ear Exam - Neck Exam Neck Exam: absent: Meningismus - Respiratory Exam Respiratory Exam: Rales, Rhonchi. absent: Wheezes Additional comments: Intubated on Vent - Cardiovascular Exam Cardiovascular Exam: REGULAR RHYTHM, +S1, +S2 - GI/Abdominal Exam GI & Abdominal Exam: Soft, Normal Bowel Sounds - Extremities Exam Extremities Exam: Normal Capillary Refill - Back Exam Back Exam: absent: CVA tenderness (R) - Neurological Exam Additional comments: Sedated on Vent however opens eyes on tactile stimuli noted to move right upper and lower extremities, observed to move also left LE - Skin Skin Exam: Dry, Normal Color, Warm Assessment and Plan - Assessment and Plan (Free Text) Assessment: 72 y/o F PMH DM, HTN, HLD brought to the ED with acutely worsening alteration of mental status ( pt has some baseline dementia) and not as verbal . CT head was neg for acute CVA or bleed. Patient glucose was elevated 563. Patient presented with left facial droop and and some expressive aphasia. MRI head showed acute stroke in right frontal lobe white matter Neuro consulted and patient admitted to telemetry.She was started on ASA, Statin , plavix,lovenox , Insulin and IVF .Her BP initially was kept elevated to allow permissive hypertension. 2/ While in telemetry , the patient developed worsening BAILON and some left arm weakness. Patient became confused , agitated , restless ,not following any commands. She also started to have fever. Repeat MRI of the Brain : showed acute/ subacute stroke in right mcleod radiata and centrum ovale She was then transferred to ICU for close monitoring She continued to spike fevers for > 48 hours with no obvious source of infection and normal WBC count. All work up sent including CXR, UA,urine cx, blood cx and were negative for infection so fever thought to be of central origin and no antibiotics were started 2/ Rpt CT of head : stable CVA She developed episodes of agitation and restlessness requiring 1:1 for safety and medication sedation 04/20 While in Tele , [employer] called for stridor and respiratory distress . She developed acute hypercapnic respiratory failure was intubated and transferred to ICU. CXR : new infiltrate, poss Asp PNA 1. Acute hypercapnic respiratory failure Most likely secondary to aspiration pneumonia and patient's inability to handle secretions due to AMS/ CVA currently intubated on MV PRVC AC mode 12/500/5/80% Episodes of Stridor were noted before intubation and trial of ventilation by BIPAP , solumedrol and Duonebs with little benefit since PCO2 noted to trend up Large respiratory secretion suctioned during intubation and cultures sent CXR showed vascular congestion and possible RLL infiltrate Continue vent management ID consulted and antibiotics changed to Meropenam and Vancomycin Pulmonary consulted 2. Progressive Acute ischemic stroke with AMS / lethargy worsening mental status, unable to handle secretions, aspirating , with acute respiratory failure requiring intubation initial presentation of patient was : acute stroke to right frontal lobe that progressed to right mcleod radiata and centrum semiovale stroke Continue ASA, statin, glycemic control, eliquis( empirically started by neuro ) Tylenol PRN for fever on Depakote 500 mg IV Q12 Cardio consulted for possible JUSTYNA - on hold due to pt's medical condition ( Dr Serrato wants pt to do JUSTYNA in [place] ) Pt empiricaly started on Eliquis Started BP control with low dose ACEI Enalapril 2.5 mg BID Feeding restarted , increased to 30 ml/hr today rpt CT of Head: 04/24 subacute small left mcleod radiata/centrum semiovale infarctions. No significant interval change. 3. Suspected aspiration Pneumonia With CXR findings of new right lobe infiltrate prior to intubation and large secretions suctioned during intubation On IV meropenem and Vanco ID and pulmonary on Consult Blood c/s : neg so far Continue Vent management, Duonebs Repeat CXR 04/25 :right mid and lower lung opacity, mod pleural effusion 4 .Uncontrolled DM with hyperglycemia Continue accuchecks, insulin coverage Increased Levemir to 28 units q hs, cont Glucotrol, prandin , Januvia Hgb A1c 16 5. Hypertension permissive hypertension while stroke was evolving Started enalapril Low dose 6. Dyslipidemia c/w Atorvastatin 40 mg PO 7. Diabetic foot calluses podiatry consulted and following Doppler US of LE - good arterial flow DVT ppx on eliquis
[2017-04-25] MEDS: Propofol 10 mg/ml 1,000 MG/100 ML VIAL IV SCH (12:57)
--- NOTE | 2017-04-25 14:49 | CP.PCM.PN ---
Subjective - Date & Time of Evaluation Date of Evaluation: 04/25/17 Time of Evaluation: 13:15 - Subjective Subjective: F/U Respiratory Failure, PNA intubated , sedated Objective - Vital Signs/Intake and Output Vital Signs (last 24 hours): Temp Pulse Resp BP Pulse Ox 98.9 F 66 12 150/66 97 04/25/17 12:00 04/25/17 13:00 04/25/17 13:00 04/25/17 13:00 04/25/17 13:00 Intake and Output: 04/25/17 04/25/17 06:59 18:59 Intake Total 1664 570 Output Total 400 Balance 1264 570 - Medications Medications: Current Medications Acetaminophen (Tylenol 325mg Tab) 650 mg PO Q6 PRN PRN Reason: fever > 100.4 Last Admin: 04/24/17 04:23 Dose: 650 mg Acetaminophen (Tylenol 650 Mg Supp) 650 mg [place] Q4 PRN PRN Reason: Fever >100.4 F Last Admin: 04/22/17 16:30 Dose: 650 mg Albuterol/Ipratropium (Duoneb 3 Mg/0.5 Mg (3 Ml) Ud) 3 ml INH RQ6 PRN PRN Reason: Shortness of Breath Apixaban (Eliquis) 2.5 mg PO BID [facility] PRN Reason: Protocol Last Admin: 04/25/17 08:52 Dose: 2.5 mg Aspirin (Aspirin Chewable) 81 mg PO DAILY [facility] Last Admin: 04/25/17 08:53 Dose: 81 mg Atorvastatin Calcium (Lipitor) 40 mg PO HS [facility] Last Admin: 04/24/17 21:19 Dose: 40 mg Bacitracin (Bacitracin Oint) 1 applic TOP BID [facility] Last Admin: 04/25/17 08:54 Dose: 1 applic Enalapril Maleate (Vasotec) 2.5 mg PO BID [facility] Last Admin: 04/25/17 08:52 Dose: 2.5 mg Glipizide (Glucotrol Xl) 10 mg PO BRKDIN [facility] Last Admin: 04/25/17 08:53 Dose: 10 mg Valproate Sodium 500 mg/ (Sodium Chloride) 105 mls @ 105 mls/hr IVPB Q12 [facility] PRN Reason: As Directed Last Admin: 04/25/17 08:49 Dose: 105 mls/hr Vancomycin HCl 1 gm/ Sodium (Chloride) 250 mls @ 166.667 mls/hr IVPB DAILY@ 2000 [facility] PRN Reason: Protocol Last Admin: 04/24/17 20:17 Dose: 166.667 mls/hr Meropenem 1 gm/ Sodium (Chloride) 100 mls @ 100 mls/hr IVPB Q8 [facility] PRN Reason: Protocol Last Admin: 04/25/17 09:22 Dose: 100 mls/hr Potassium Chloride/Sodium Chloride (Potassium Chl 20 Meq In Ns) 1,000 mls @ 40 mls/hr IV .Q24H [facility] Propofol (Diprivan) 1,000 mg in 100 mls @ 3.47 mls/hr IV .Q24H [facility]; 7.5 MCG/KG/ MIN PRN Reason: Protocol Stop: 04/26/17 12:30 Last Titration: 04/25/17 13:28 Dose: 10 mcg/kg/min, 4.627 mls/hr Insulin Detemir (Levemir) 28 units SC HS [facility] Last Admin: 04/24/17 21:23 Dose: 28 units Insulin Human Regular (Humulin R) 0 units SC ACHS [facility] PRN Reason: Protocol Last Admin: 04/25/17 11:26 Dose: 1 units Pantoprazole Sodium (Protonix Inj) 40 mg IVP DAILY [facility] Last Admin: 04/25/17 08:53 Dose: 40 mg Repaglinide (Prandin) 1 mg PO TID [facility] Last Admin: 04/25/17 12:11 Dose: 1 mg Sitagliptin Phosphate (Januvia) 50 mg PO BID [facility] Last Admin: 04/25/17 08:53 Dose: 50 mg - Labs Labs: 04/25/17 04:45 04/25/17 04:45 PT 9.7 Seconds (9.8-13.1) L 04/12/17 21:15 INR 0.9 (0.9-1.2) 04/12/17 21:15 APTT 26.0 Seconds (25.6-37.1) 04/12/17 21:15 - Constitutional Appears: Chronically Ill - Head Exam Head Exam: NORMAL INSPECTION - Eye Exam Eye Exam: PERRL - ENT Exam Additional comments: Intubated - Neck Exam Neck Exam: Normal Inspection - Respiratory Exam Respiratory Exam: Rhonchi (scattered) - Cardiovascular Exam Cardiovascular Exam: REGULAR RHYTHM - GI/Abdominal Exam GI & Abdominal Exam: Soft, Normal Bowel Sounds - Extremities Exam Extremities Exam: Normal Inspection - Back Exam Back Exam: NORMAL INSPECTION - Neurological Exam Additional comments: Intubated, sedated, minimal response to tactil stimuli , L hemiparesia. - Psychiatric Exam Additional comments: Intubated, sedated - Skin Skin Exam: Warm Assessment and Plan (1) Respiratory failure Status: Acute (2) Aspiration pneumonia Status: Acute (3) CVA (cerebral vascular accident) Status: Acute - Assessment and Plan (Free Text) Plan: continue ventilatory support , Propofol , Duo Neb , Merren , Vanco , discussed with Patient's family ICU Time: 39 min.
--- NOTE | 2017-04-25 14:53 | CP.PCM.PN ---
Subjective - Date & Time of Evaluation Date of Evaluation: 04/25/17 Time of Evaluation: 19:00 - Subjective Subjective: ID Note- Pt. seen and examined today in ICU. remains intubated and sedated. Opens eyes to tactile stimuli. afebrile. Objective - Vital Signs/Intake and Output Vital Signs (last 24 hours): Temp Pulse Resp BP Pulse Ox 98.9 F 66 12 150/66 97 04/25/17 12:00 04/25/17 13:00 04/25/17 13:00 04/25/17 13:00 04/25/17 13:00 Intake and Output: 04/25/17 04/25/17 06:59 18:59 Intake Total 1664 570 Output Total 400 Balance 1264 570 - Medications Medications: Current Medications Acetaminophen (Tylenol 325mg Tab) 650 mg PO Q6 PRN PRN Reason: fever > 100.4 Last Admin: 04/24/17 04:23 Dose: 650 mg Acetaminophen (Tylenol 650 Mg Supp) 650 mg [place] Q4 PRN PRN Reason: Fever >100.4 F Last Admin: 04/22/17 16:30 Dose: 650 mg Albuterol/Ipratropium (Duoneb 3 Mg/0.5 Mg (3 Ml) Ud) 3 ml INH RQ6 PRN PRN Reason: Shortness of Breath Apixaban (Eliquis) 2.5 mg PO BID [facility] PRN Reason: Protocol Last Admin: 04/25/17 08:52 Dose: 2.5 mg Aspirin (Aspirin Chewable) 81 mg PO DAILY [facility] Last Admin: 04/25/17 08:53 Dose: 81 mg Atorvastatin Calcium (Lipitor) 40 mg PO HS [facility] Last Admin: 04/24/17 21:19 Dose: 40 mg Bacitracin (Bacitracin Oint) 1 applic TOP BID [facility] Last Admin: 04/25/17 08:54 Dose: 1 applic Enalapril Maleate (Vasotec) 2.5 mg PO BID [facility] Last Admin: 04/25/17 08:52 Dose: 2.5 mg Glipizide (Glucotrol Xl) 10 mg PO BRKDIN [facility] Last Admin: 04/25/17 08:53 Dose: 10 mg Valproate Sodium 500 mg/ (Sodium Chloride) 105 mls @ 105 mls/hr IVPB Q12 [facility] PRN Reason: As Directed Last Admin: 04/25/17 08:49 Dose: 105 mls/hr Vancomycin HCl 1 gm/ Sodium (Chloride) 250 mls @ 166.667 mls/hr IVPB DAILY@ 2000 [facility] PRN Reason: Protocol Last Admin: 04/24/17 20:17 Dose: 166.667 mls/hr Meropenem 1 gm/ Sodium (Chloride) 100 mls @ 100 mls/hr IVPB Q8 [facility] PRN Reason: Protocol Last Admin: 04/25/17 09:22 Dose: 100 mls/hr Potassium Chloride/Sodium Chloride (Potassium Chl 20 Meq In Ns) 1,000 mls @ 40 mls/hr IV .Q24H [facility] Propofol (Diprivan) 1,000 mg in 100 mls @ 3.47 mls/hr IV .Q24H [facility]RIAN; 7.5 MCG/KG/ MIN PRN Reason: Protocol Stop: 04/26/17 12:30 Last Titration: 04/25/17 13:28 Dose: 10 mcg/kg/min, 4.627 mls/hr Insulin Detemir (Levemir) 28 units SC HS [facility] Last Admin: 04/24/17 21:23 Dose: 28 units Insulin Human Regular (Humulin R) 0 units SC ACHS [facility] PRN Reason: Protocol Last Admin: 04/25/17 11:26 Dose: 1 units Pantoprazole Sodium (Protonix Inj) 40 mg IVP DAILY [facility] Last Admin: 04/25/17 08:53 Dose: 40 mg Repaglinide (Prandin) 1 mg PO TID [facility] Last Admin: 04/25/17 12:11 Dose: 1 mg Sitagliptin Phosphate (Januvia) 50 mg PO BID [facility] Last Admin: 04/25/17 08:53 Dose: 50 mg - Labs Labs: - Additional Findings Additional findings: - Constitutional Appears: Additional comments: Intubated and sedated - Head Exam Head Exam: ATRAUMATIC - ENT Exam Additional comments: ET tube in place - Neck Exam Neck exam: Positive for: Full Rom Additional comments: supple - Respiratory Exam Additional comments: breasth sounds heard b/l - Cardiovascular Exam Cardiovascular Exam: RRR, +S1, +S2 - GI/Abdominal Exam GI & Abdominal Exam: Normal Bowel Sounds, Soft Additional comments: ND, NT - Extremities Exam Additional comments: no edema b/l LE, no ulcerations - Neurological Exam Additional comments: sedated Laboratory Results - last 72 hr 04/23/17 04/23/17 04/23/17 04:18 05:04 05:04 WBC 8.8 RBC 4.48 Hgb 12.6 Hct 40.3 MCV 89.8 MCH 28.1 MCHC 31.3 L RDW 15.0 H Plt Count 192 MPV 10.4 Neut % (Auto) 73.1 Lymph % (Auto) 15.7 L Mcculloch % (Auto) 10.5 H Eos % (Auto) 0.0 Baso % (Auto) 0.7 Neut # (Auto) 6.4 Lymph # (Auto) 1.4 Mcculloch # (Auto) 0.9 H Eos # (Auto) 0.0 Baso # (Auto) 0.1 pCO2 44 pO2 86 HCO3 34.0 H ABG pH 7.52 H ABG Total CO2 37.3 H ABG O2 Saturation ABG O2 Content ABG Base Excess 11.6 H ABG Hemoglobin ABG Carboxyhemoglobin POC ABG HHb (Measured) ABG Methemoglobin ABG O2 Capacity Boaz Test Yes ABG Potassium 3.7 A-a O2 Difference 429.0 Hgb O2 Saturation Sodium 148.0 150 H Chloride 108.0 H 104 Glucose 305 H Lactate 1.4 Vent Mode A/c Mechanical Rate 12 FiO2 80.0 Tidal Volume 500 PEEP 5 Potassium 3.7 Carbon Dioxide 34 H Anion Gap 16 BUN 40 H Creatinine 0.7 Est GFR ( Amer) > 60 Est GFR (Non-Af Amer) > 60 POC Glucose (mg/dL) Random Glucose 293 H Calcium 8.6 Total Bilirubin AST ALT Alkaline Phosphatase Total Protein Albumin Globulin Albumin/Globulin Ratio Arterial Blood Potassium 3.7 Vancomycin Trough 04/23/17 04/23/17 04/23/17 05:33 11:24 16:46 WBC RBC Hgb Hct MCV MCH MCHC RDW Plt Count MPV Neut % (Auto) Lymph % (Auto) Mcculloch % (Auto) Eos % (Auto) Baso % (Auto) Neut # (Auto) Lymph # (Auto) Mcculloch # (Auto) Eos # (Auto) Baso # (Auto) pCO2 pO2 HCO3 ABG pH ABG Total CO2 ABG O2 Saturation ABG O2 Content ABG Base Excess ABG Hemoglobin ABG Carboxyhemoglobin POC ABG HHb (Measured) ABG Methemoglobin ABG O2 Capacity Boaz Test ABG Potassium A-a O2 Difference Hgb O2 Saturation Sodium Chloride Glucose Lactate Vent Mode Mechanical Rate FiO2 Tidal Volume PEEP Potassium Carbon Dioxide Anion Gap BUN Creatinine Est GFR ( Amer) Est GFR (Non-Af Amer) POC Glucose (mg/dL) 257 H 173 H 178 H Random Glucose Calcium Total Bilirubin AST ALT Alkaline Phosphatase Total Protein Albumin Globulin Albumin/Globulin Ratio Arterial Blood Potassium Vancomycin Trough 04/23/17 04/24/17 04/24/17 21:27 05:43 06:00 WBC 5.8 RBC 4.32 Hgb 12.1 Hct 38.8 MCV 89.8 MCH 28.1 MCHC 31.3 L RDW 15.3 H Plt Count 193 MPV Neut % (Auto) Lymph % (Auto) Mcculloch % (Auto) Eos % (Auto) Baso % (Auto) Neut # (Auto) Lymph # (Auto) Mcculloch # (Auto) Eos # (Auto) Baso # (Auto) pCO2 42 pO2 137 H HCO3 32.3 H ABG pH 7.51 H ABG Total CO2 34.8 H ABG O2 Saturation 99.4 H ABG O2 Content 17.3 ABG Base Excess 9.5 H ABG Hemoglobin 12.5 ABG Carboxyhemoglobin 0.9 POC ABG HHb (Measured) 0.6 ABG Methemoglobin 1.2 ABG O2 Capacity 17.4 Boaz Test Yes ABG Potassium A-a O2 Difference 381.0 Hgb O2 Saturation 97.3 Sodium Chloride Glucose Lactate Vent Mode A/c Mechanical Rate 12 FiO2 80.0 Tidal Volume 500 PEEP 5 Potassium Carbon Dioxide Anion Gap BUN Creatinine Est GFR ( Amer) Est GFR (Non-Af Amer) POC Glucose (mg/dL) 215 H Random Glucose Calcium Total Bilirubin AST ALT Alkaline Phosphatase Total Protein Albumin Globulin Albumin/Globulin Ratio Arterial Blood Potassium Vancomycin Trough 04/24/17 04/24/17 04/24/17 06:00 06:09 11:13 WBC RBC Hgb Hct MCV MCH MCHC RDW Plt Count MPV Neut % (Auto) Lymph % (Auto) Mcculloch % (Auto) Eos % (Auto) Baso % (Auto) Neut # (Auto) Lymph # (Auto) Mcculloch # (Auto) Eos # (Auto) Baso # (Auto) pCO2 pO2 HCO3 ABG pH ABG Total CO2 ABG O2 Saturation ABG O2 Content ABG Base Excess ABG Hemoglobin ABG Carboxyhemoglobin POC ABG HHb (Measured) ABG Methemoglobin ABG O2 Capacity Boaz Test ABG Potassium A-a O2 Difference Hgb O2 Saturation Sodium 151 H Chloride 109 H Glucose Lactate Vent Mode Mechanical Rate FiO2 Tidal Volume PEEP Potassium 3.6 Carbon Dioxide 35 H Anion Gap 11 BUN 33 H Creatinine 0.7 Est GFR ( Amer) > 60 Est GFR (Non-Af Amer) > 60 POC Glucose (mg/dL) 226 H 177 H Random Glucose 258 H Calcium 8.5 Total Bilirubin AST ALT Alkaline Phosphatase Total Protein Albumin Globulin Albumin/Globulin Ratio Arterial Blood Potassium Vancomycin Trough 04/24/17 04/24/17 04/24/17 17:10 18:00 21:22 WBC RBC Hgb Hct MCV MCH MCHC RDW Plt Count MPV Neut % (Auto) Lymph % (Auto) Mcculloch % (Auto) Eos % (Auto) Baso % (Auto) Neut # (Auto) Lymph # (Auto) Mcculloch # (Auto) Eos # (Auto) Baso # (Auto) pCO2 pO2 HCO3 ABG pH ABG Total CO2 ABG O2 Saturation ABG O2 Content ABG Base Excess ABG Hemoglobin ABG Carboxyhemoglobin POC ABG HHb (Measured) ABG Methemoglobin ABG O2 Capacity Boaz Test ABG Potassium A-a O2 Difference Hgb O2 Saturation Sodium Chloride Glucose Lactate Vent Mode Mechanical Rate FiO2 Tidal Volume PEEP Potassium Carbon Dioxide Anion Gap BUN Creatinine Est GFR ( Amer) Est GFR (Non-Af Amer) POC Glucose (mg/dL) 187 H 209 H Random Glucose Calcium Total Bilirubin AST ALT Alkaline Phosphatase Total Protein Albumin Globulin Albumin/Globulin Ratio Arterial Blood Potassium Vancomycin Trough 5.7 04/25/17 04/25/17 04/25/17 04:45 04:45 04:45 WBC 6.0 RBC 4.05 Hgb 11.5 L Hct 35.7 MCV 88.3 MCH 28.4 MCHC 32.1 L RDW 15.0 H Plt Count 161 MPV Neut % (Auto) Lymph % (Auto) Mcculloch % (Auto) Eos % (Auto) Baso % (Auto) Neut # (Auto) Lymph # (Auto) Mcculloch # (Auto) Eos # (Auto) Baso # (Auto) pCO2 42 pO2 161 H HCO3 31.1 H ABG pH 7.49 H ABG Total CO2 33.3 H ABG O2 Saturation 99.3 H ABG O2 Content 16.6 ABG Base Excess 7.9 H ABG Hemoglobin 11.9 ABG Carboxyhemoglobin 1.1 POC ABG HHb (Measured) 0.7 ABG Methemoglobin 1.0 ABG O2 Capacity 16.7 Boaz Test Yes ABG Potassium A-a O2 Difference 357.0 Hgb O2 Saturation 97.3 Sodium 147 Chloride 108 H Glucose Lactate Vent Mode A/c Mechanical Rate 12 FiO2 80.0 Tidal Volume 500 PEEP 5 Potassium 3.7 Carbon Dioxide 32 H Anion Gap 11 BUN 26 H Creatinine 0.6 L Est GFR ( Amer) > 60 Est GFR (Non-Af Amer) > 60 POC Glucose (mg/dL) Random Glucose 261 H Calcium 8.1 L Total Bilirubin 0.3 AST 21 ALT 22 Alkaline Phosphatase 73 Total Protein 6.3 Albumin 2.7 L Globulin 3.7 Albumin/Globulin Ratio 0.7 L Arterial Blood Potassium Vancomycin Trough 04/25/17 04/25/17 04/25/17 11:20 16:12 21:58 WBC RBC Hgb Hct MCV MCH MCHC RDW Plt Count MPV Neut % (Auto) Lymph % (Auto) Mcculloch % (Auto) Eos % (Auto) Baso % (Auto) Neut # (Auto) Lymph # (Auto) Mcculloch # (Auto) Eos # (Auto) Baso # (Auto) pCO2 pO2 HCO3 ABG pH ABG Total CO2 ABG O2 Saturation ABG O2 Content ABG Base Excess ABG Hemoglobin ABG Carboxyhemoglobin POC ABG HHb (Measured) ABG Methemoglobin ABG O2 Capacity Boaz Test ABG Potassium A-a O2 Difference Hgb O2 Saturation Sodium Chloride Glucose Lactate Vent Mode Mechanical Rate FiO2 Tidal Volume PEEP Potassium Carbon Dioxide Anion Gap BUN Creatinine Est GFR ( Amer) Est GFR (Non-Af Amer) POC Glucose (mg/dL) 177 H 137 H 142 H Random Glucose Calcium Total Bilirubin AST ALT Alkaline Phosphatase Total Protein Albumin Globulin Albumin/Globulin Ratio Arterial Blood Potassium Vancomycin Trough Microbiology 04/21/17 21:05 Blood-Venous Blood Culture - Preliminary NO GROWTH AFTER 4 DAYS 04/21/17 20:55 Blood-Venous Blood Culture - Preliminary NO GROWTH AFTER 4 DAYS 04/22/17 19:03 Blood-Venous Blood Culture - Preliminary NO GROWTH AFTER 3 DAYS 04/22/17 19:03 Blood-Venous Blood Culture - Preliminary NO GROWTH AFTER 3 DAYS 04/21/17 05:46 Trachasp Gram Stain - Final 04/21/17 05:46 Trachasp Sputum Culture - Final NORMAL ORAL LEIDA 04/21/17 05:45 Urine,Ndiaye Urine Culture - Final Yeast Species 04/20/17 07:34 Naris MRSA Culture (Admit) - Final MRSA NOT DETECTED 04/20/17 07:55 Urine,Clean Catch Urine Culture - Final Escherichia Coli 04/15/17 06:14 Blood-Venous Blood Culture - Final NO GROWTH AFTER 5 DAYS 04/15/17 06:14 Blood-Venous Gram Stain - Final TEST NOT PERFORMED 04/15/17 06:14 Blood-Venous Blood Culture - Final NO GROWTH AFTER 5 DAYS 04/15/17 06:14 Blood-Venous Gram Stain - Final TEST NOT PERFORMED 04/16/17 08:25 Naris MRSA Culture (Admit) - Final MRSA NOT DETECTED 04/12/17 21:15 Urine,Clean Catch Urine Culture - Final > 100,000 CFU/ML. MULTIPLE SPECIES. SUGGEST REPEAT SPECIMEM.Accession No. : [id number] Patient Name / ID : SAFIA LIMON / [id number] Exam Date : 04/25/2017 05:09:24 ( Approved ) Study Comment : Sex / Age : F / [id number] Creator : Kurtis Gooden MD Dictator : Kurtis Gooden MD Phytochemistry Professor : Fender Mechanic : Kurtis Gooden MD Approver2 : Report Date : 04/25/2017 11:24:38 My Comment : HISTORY: Re-evaluate; intubated. COMPARISON: Comparison chest dated 04/24/2017 FINDINGS: In situ ETT tip which lies approximately 3.77 cm above james. NGT is present, tip of which lies is poorly seen though distal aspect well below EG action probably midline or minor. LUNGS: Opacity right mid to lower lung base may represent some combination of atelectasis/ infiltrate as well as moderate-sized effusion. Suspect minimal left basilar atelectasis. PLEURA: No significant pleural effusion identified, no pneumothorax apparent. CARDIOVASCULAR: Normal. OSSEOUS STRUCTURES: No significant abnormalities. VISUALIZED UPPER ABDOMEN: Normal. OTHER FINDINGS: None. IMPRESSION: ETT and NGT as detailed above. Re- demonstrated is an opacity in theright mid to lower lung base may represent some combination of atelectasis/ infiltrate as well as moderate-sized effusion. Suspect minimal left basilar atelectasis. Assessment and Plan (1) CVA (cerebral vascular accident) Status: Acute (2) Type 2 diabetes mellitus with pressure callus Status: Acute (3) Aspiration pneumonia Status: Acute (4) UTI (urinary tract infection) Status: Acute - Assessment and Plan (Free Text) Assessment: A/P- 72 year old female with DM Ii, HTN was admitted with mental status change and was found to have acute ischemic stroke but was doing better and was transferred to step down unit, however, had [employer]IL[employer] and for resp distress and is s/ p post intubation . afebrile last 24 hours normal wbc count cxr report- RLL pneumonia. blood cx- neg x 4 UA- neg urine cx -e.coli pansensitive influenza- negative Plan- advise to continue with meropnem for broader gram neg covergae. day #5 and would cover for both asp pneumonitis / HAP and UTI. advise to continue with IV vancomycin for HAP vs pneumonitis. day #5. keep trough <15. ICU time spent 45 min.
[2017-04-25] MEDS: Potassium Chl 20 mEq in NS 1,000 ML IV SCH (16:08)
[2017-04-25] MEDS: Insulin Detemir 100 Units/ml Inj SC SCH (22:01)
--- NOTE | 2017-04-26 00:21 | PN ---
CRITICAL CARE PROGRESS NOTE DATE: 04/25/2017 LOCATION: The patient in ICU bed 432. Time spent 35 minutes, seen and evaluated at the bedside. Past medical, surgical, and social history noted. Events since admission reviewed. SUBJECTIVE: A 72-year-old female with past medical history significant for diabetes, hypertension, hyperlipidemia, hyperlipidemia, admitted with CVA, developed aspiration pneumonia, respiratory failure, intubated, on mechanical ventilation on AC of 12, tidal volume of 500, FIO2 of 60%, observed rate 12, exhaled tidal volume of 480, minute ventilation 5.7 L, end-tidal CO2 31. OBJECTIVE: VITAL SIGNS: Temperature 98.9, heart rate 73, blood pressure 144/75, and saturation 100%. HEAD, EYES, EARS, NOSE AND THROAT: Pupils reactive. Conjunctivae pink. Sclerae are white. NECK: Supple. Trachea is central. CHEST: Bilateral rhonchi. No audible wheezing. HEART: Rhythm regular. S1 and S2 normal. ABDOMEN: Bowel sounds are present and soft. EXTREMITIES: Normal capillary refill. NEUROLOGIC: Unchanged. CURRENT MEDICATIONS: Include Tylenol 650 mg q.6 hours p.r.n., DuoNeb 3 mL via nebulizer q.6 hours, Eliquis 2.5 mg twice daily, aspirin 81 mg p.o. daily, Lipitor 40 mg daily, bacitracin ointment one application topically twice daily, Vasotec 2.5 mg twice daily, Glucotrol 10 mg p.o. daily, Levemir 28 units subcutaneously at bedtime, meropenem 1 g IV q.8 hours, Protonix 40 IV daily, sodium chloride with 20 mEq of KCl at 40 mL/hour, propofol drip to facilitate mechanical ventilation, Prandin 1 mg three times daily, Januvia 50 mg p.o. twice daily, and vancomycin 1 g IV daily. LABORATORY DATA: Microbiology, urine culture positive for E. coli yeast species. WBC 6, hemoglobin 11.5, hematocrit 35.7, and platelet count of 161. ABG; pH of 7.49, pCO2 of 42, pO2 of 161, saturation 99.3 on AC 12, 500, 80%, PEEP of 5, and FiO2 reduced to 70%. Chest x-ray; endotracheal tube and NG tube in place. Opacity in the right [id number] lung base consistent with atelectasis/infiltrate, and moderate size effusion, left basilar atelectasis. IMPRESSION AND PLAN: 1. Pulmonary: Acute hypercapnic-hypoxic respiratory failure secondary to aspiration pneumonia, currently remains intubated on mechanical ventilation, sedated on Diprivan, and saturating well. Continue DuoNeb 3 mL via nebulizer q.6 hours. Continue pulmonary toilet. 2. Neurologic examination: Progressive acute ischemic stroke with altered mental status and lethargy. CT head showed stable appearance with acute and subacute right mcleod radiata, centrum semiovale, and subacute small left mcleod radiata, and centrum ovale infarct, no significant interval change. The patient is wakeful, but agitated on discontinuation of the Diprivan. Continue aspirin, statin, and maintain aspirin. Continue Eliquis 2.5 mg q.12 hours. 3. Infectious disease: Suspected aspiration pneumonia, on IV meropenem and vancomycin. ID on board. 4. Endocrine. Uncontrolled diabetes with hyperglycemia, on Levemir. Accu-Chek with regular insulin coverage. Continue Glucotrol, Prandin, and Januvia. 5. Cardiac: Hypertension controlled. Currently on enalapril. Continue atorvastatin. 6. Diabetic foot callus followed by Podiatry consult. Ultrasound of the lower extremities shows good arterial flow. Janes Lopez MD
[2017-04-26] MEDS: Meropenem 1 GM in Sodium Chloride 0.9% 100 ML IVPB SCH ×3 (01:00→16:18)
[2017-04-26 04:30] LABS: ABG ALLEN TEST YES; ARTERIAL BLOOD GAS HCO3 30.2 mmol/L (21-28); ARTERIAL BLOOD GAS O2 CAPACITY 15.2 mL/dL (16-24); ARTERIAL BLOOD GAS O2 CONTENT 15.1 ML/dL (15-23); ARTERIAL BLOOD GAS O2 SAT 99.2 % (95-98); ARTERIAL BLOOD GAS PCO2 38 mm/Hg (35-45); ARTERIAL BLOOD GAS PH 7.51 (7.35-7.45); ARTERIAL BLOOD GAS PO2 113 mm/Hg (80-100); ARTERIAL BLOOD GAS TCO2 31.5 mmol/L (22-28)
[2017-04-26 05:43] LABS: BLOOD UREA NITROGEN 20 mg/dl (7-17); CALCIUM 8.2 mg/dL (8.4-10.2); GFR AFRICAN-AMERICAN > 60; GFR NON-AFRICAN AMERICAN > 60
[2017-04-26 05:50] LABS: HEMOGLOBIN 11.8 g/dL (12.0-16.0); MEAN CELL VOLUME 89.3 fl (81.0-99.0); MEAN CORPUSCULAR HEMOGLOBIN 28.3 pg (27.0-31.0); MEAN CORPUSCULAR HGB CONC 31.7 g/dL (33.0-37.0); RBC 4.16 Mil/uL (3.80-5.20); RED CELL DISTRIBUTION WIDTH 14.6 % (11.5-14.5); WHITE BLOOD COUNT 9.1 K/uL (4.8-10.8)
[2017-04-26] MEDS: Insulin Regular 100 units/ml SC SCH ×4 (06:38→21:36)
[2017-04-26] MEDS: Bacitracin OINT 15GM TOP SCH ×2 (08:49→16:17)
[2017-04-26] MEDS: GlipiZIDE 10 mg SR Tab PO SCH ×2 (08:51→16:17)
[2017-04-26] MEDS: Valproate 500 MG in Sodium Chloride 0.9% 100 ML IVPB SCH ×2 (09:16→21:17)
[2017-04-26] MEDS ORDERED: Potassium Chloride 20 mEq/15 ml LIQ UD PO ONE (10:11)
--- NOTE | 2017-04-26 11:05 | RAD ---
HISTORY: Intubated COMPARISON: Chest radiograph dated 04/25/2017. FINDINGS: LUNGS: Improved right basilar aeration with mild persistent atelectasis. PLEURA: Small right effusion. No pneumothorax apparent. CARDIOVASCULAR: Atherosclerotic aortic calcifications. Cardiomediastinal silhouette stably enlarged. OSSEOUS STRUCTURES: Unchanged. VISUALIZED UPPER ABDOMEN: Normal. OTHER FINDINGS: Endotracheal and enteric tubes, unchanged. IMPRESSION: Decrease in size of now small right pleural effusion.
--- NOTE | 2017-04-26 11:19 | CP.CCUPN ---
<Sharyn Hidalgo - Last Filed: 04/26/17 15:37> CCU Subjective - Physician Review Subjective (Free Text): 04/26/17 This is a 72 y/o F with PMHx of HTN, HLD, DM, CAD and bilateral hallus ulceration. Patient was brought in via EMS to ER on 04/12 for evaluation of altered mental status, onset a few months ago. Patient was admitted to the telemetry unit with acute cerebral vascular accident. On 04/17 patient developed change in mental status/left upper extremity weakness, CODE STROKE was called and was transferred to ICU. On 04/20 patient was transferred back to Telemetry unit. Patient was seen and examined with educational interpreter attending during ICU round this morning. Intubated on mechanical ventilation: PRVC: Rate: 12, TV: 500, PEEP: 5, FIO2 60 %. Afebrile, open eyes to tactile stimuli Critical Care Time Spent (in minutes): 45 CCU Objective - Vital Signs / Intake & Output Vital Signs (Last 4 hours): Vital Signs Temp Pulse Resp BP Pulse Ox 04/26/17 11:00 72 14 155/74 H 99 04/26/17 10:41 138/68 04/26/17 10:00 68 12 138/68 100 04/26/17 09:00 72 21 150/74 98 04/26/17 08:35 97.8 F 65 12 160/79 H 100 Intake and Output (Last 8hrs): Intake & Output 04/25/17 04/26/17 04/26/17 22:59 06:59 14:59 Intake Total 1388 1071.1 600 Output Total 300 600 Balance 1088 471.1 600 Intake: IV 298 391.1 40 Intake, Piggyback 450 200 Oral 60 Tube Feeding 380 280 160 Free Water Flush 200 400 200 Output: Urine 300 600 Urethral (Ndiaye) 300 600 Other: # Bowel Movements 2 1 2 - Physical Exam Head: Positive for: Atraumatic, Normocephalic Pupils: Positive for: PERRL Mouth: Positive for: Moist Mucous Membranes Respiratory/Chest: Positive for: Clear to Auscultation. Negative for: Respiratory Distress, Wheezes, Rhonchi Abdomen: Positive for: Normal Bowel Sounds. Negative for: Tenderness, Distention, Guarding Upper Extremity: Positive for: Capillary Refill < 2s. Negative for: Cyanosis Lower Extremity: Negative for: Edema Skin: Positive for: Warm, Dry, Pale Psychiatric: Positive for: Other (intubated on mechanical ventilation, sedated) - Medications Active Medications: Active Medications Generic Name Dose Route Start Last Admin Trade Name Freq PRN Reason Stop Dose Admin Acetaminophen 650 mg 04/15/17 23:34 04/24/17 04:23 Tylenol 325mg Tab PO 650 mg Q6 PRN Administration fever > 100.4 Acetaminophen 650 mg 04/21/17 20:53 04/22/17 16:30 Tylenol 650 Mg Supp IA 650 mg Q4 PRN Administration Fever >100.4 F Acetazolamide 500 mg 04/26/17 21:00 Diamox 500 Mg Inj IV Q12 BRIAN Albuterol/Ipratropium 3 ml 04/21/17 05:11 Duoneb 3 Mg/0.5 Mg (3 Ml) Ud INH RQ6 PRN Shortness of Breath Apixaban 2.5 mg 04/17/17 17:00 04/26/17 08:50 Eliquis PO 2.5 mg BID BRIAN Administration Protocol Aspirin 81 mg 04/19/17 13:00 04/26/17 08:51 Aspirin Chewable PO 81 mg DAILY BRIAN Administration Atorvastatin Calcium 40 mg 04/13/17 22:00 04/25/17 22:00 Lipitor PO 40 mg HS BRIAN Administration Bacitracin 1 applic 04/16/17 09:00 04/26/17 08:49 Bacitracin Oint TOP 1 applic BID BRIAN Administration Enalapril Maleate 2.5 mg 04/19/17 17:00 04/26/17 08:50 Vasotec PO 2.5 mg BID BRIAN Administration Furosemide 20 mg 04/26/17 09:00 04/26/17 10:41 Lasix IVP 20 mg Q12 BRIAN Administration Glipizide 10 mg 04/14/17 08:00 04/26/17 08:51 Glucotrol Xl PO 10 mg BRKDIN BRIAN Administration Valproate Sodium 500 mg/ 105 mls @ 105 mls/hr 04/17/17 21:00 04/26/17 09:16 Sodium Chloride IVPB 105 mls/hr Q12 BRIAN Administration As Directed Vancomycin HCl 1 gm/ Sodium 250 mls @ 166.667 mls/hr 04/21/17 20:00 04/25/17 20:13 Chloride IVPB 166.667 mls/hr DAILY@2000 BRIAN Administration Protocol Meropenem 1 gm/ Sodium 100 mls @ 100 mls/hr 04/23/17 01:00 04/26/17 08:46 Chloride IVPB 100 mls/hr Q8 BRIAN Administration Protocol Potassium Chloride/Sodium Chloride 1,000 mls @ 40 mls/hr 04/25/17 12:00 04/25 16:08 Potassium Chl 20 Meq In Ns IV 40 mls/hr .Q24H BRIAN Administration Propofol 1,000 mg in 100 mls @ 3.47 mls/hr 04/25/17 12:30 04/25/17 23:30 Diprivan IV 04/26/17 12:30 20 mcg/kg/min .Q24H BRIAN 9.253 mls/hr Protocol Titration 7.5 MCG/KG/MIN Insulin Detemir 28 units 04/24/17 17:16 04/25/17 22:01 Levemir SC 28 units HS BRIAN Administration Insulin Human Regular 0 units 04/13/17 07:30 04/26/17 06:38 Humulin R SC Not Given ACHS [facility] Protocol Pantoprazole Sodium 40 mg 04/22/17 09:00 04/26/17 08:52 Protonix Inj IVP 40 mg DAILY BRIAN Administration Repaglinide 1 mg 04/14/17 09:00 04/26/17 08:50 Prandin PO 1 mg TID BRIAN Administration Sitagliptin Phosphate 50 mg 04/14/17 09:00 04/26/17 08:51 Januvia PO 50 mg BID BRIAN Administration - Patient Studies Lab Studies: Microbiology Studies 04/21/17 21:05 Blood Culture - Preliminary Blood-Venous NO GROWTH AFTER 4 DAYS 04/21/17 20:55 Blood Culture - Preliminary Blood-Venous NO GROWTH AFTER 4 DAYS 04/22/17 19:03 Blood Culture - Preliminary Blood-Venous NO GROWTH AFTER 3 DAYS 04/22/17 19:03 Blood Culture - Preliminary Blood-Venous NO GROWTH AFTER 3 DAYS Lab Studies 04/26/17 04/26/17 04/26/17 Range/Units 06:07 04:30 04:30 WBC 9.1 D (4.8-10.8) K/uL RBC 4.16 (3.80-5.20) Mil/uL Hgb 11.8 L (12.0-16.0) g/dL Hct 37.1 (34.0-47.0) % MCV 89.3 (81.0-99.0) fl MCH 28.3 (27.0-31.0) pg MCHC 31.7 L (33.0-37.0) g/dL RDW 14.6 H (11.5-14.5) % Plt Count 133 (130-400) K/uL pCO2 (35-45) mm/Hg pO2 (80-100) mm/Hg HCO3 (21-28) mmol/L ABG pH (7.35-7.45) ABG Total CO2 (22-28) mmol/L ABG O2 Saturation (95-98) % ABG O2 Content (15-23) ML/dL ABG Base Excess (-2.0-3.0) mmol/L ABG Hemoglobin (11.7-17.4) g/dL ABG Carboxyhemoglobin (0.5-1.5) % POC ABG HHb (Measured) (0.0-5.0) % ABG Methemoglobin (0.0-3.0) % ABG O2 Capacity (16-24) mL/dL Boaz Test A-a O2 Difference mm/Hg Hgb O2 Saturation (95.0-98.0) % Vent Mode Mechanical Rate FiO2 % Tidal Volume PEEP Sodium 146 (132-148) mmol/l Potassium 3.5 L (3.6-5.0) MMOL/L Chloride 107 (98-107) mmol/L Carbon Dioxide 32 H (22-30) mmol/L Anion Gap 11 (10-20) BUN 20 H (7-17) mg/dl Creatinine 0.4 L (0.7-1.2) mg/dl Est GFR ( Amer) > 60 Est GFR (Non-Af Amer) > 60 POC Glucose (mg/dL) 138 H (65-110) mg/dL Random Glucose 135 H (65-105) mg/dL Calcium 8.2 L (8.4-10.2) mg/dL 04/26/17 04/25/17 04/25/17 Range/Units 04:15 21:58 16:12 WBC (4.8-10.8) K/uL RBC (3.80-5.20) Mil/uL Hgb (12.0-16.0) g/dL Hct (34.0-47.0) % MCV (81.0-99.0) fl MCH (27.0-31.0) pg MCHC (33.0-37.0) g/dL RDW (11.5-14.5) % Plt Count (130-400) K/uL pCO2 38 (35-45) mm/Hg pO2 113 H (80-100) mm/Hg HCO3 30.2 H (21-28) mmol/L ABG pH 7.51 H (7.35-7.45) ABG Total CO2 31.5 H (22-28) mmol/L ABG O2 Saturation 99.2 H (95-98) % ABG O2 Content 15.1 (15-23) ML/dL ABG Base Excess 6.8 H (-2.0-3.0) mmol/L ABG Hemoglobin 11.0 L (11.7-17.4) g/dL ABG Carboxyhemoglobin 1.4 (0.5-1.5) % POC ABG HHb (Measured) 0.8 (0.0-5.0) % ABG Methemoglobin 1.3 (0.0-3.0) % ABG O2 Capacity 15.2 L (16-24) mL/dL Boaz Test Yes A-a O2 Difference 267.0 mm/Hg Hgb O2 Saturation 96.5 (95.0-98.0) % Vent Mode A/c Mechanical Rate 12 FiO2 60.0 % Tidal Volume 500 PEEP 5 Sodium (132-148) mmol/l Potassium (3.6-5.0) MMOL/L Chloride (98-107) mmol/L Carbon Dioxide (22-30) mmol/L Anion Gap (10-20) BUN (7-17) mg/dl Creatinine (0.7-1.2) mg/dl Est GFR ( Amer) Est GFR (Non-Af Amer) POC Glucose (mg/dL) 142 H 137 H (65-110) mg/dL Random Glucose (65-105) mg/dL Calcium (8.4-10.2) mg/dL 04/25/17 Range/Units 11:20 WBC (4.8-10.8) K/uL RBC (3.80-5.20) Mil/uL Hgb (12.0-16.0) g/dL Hct (34.0-47.0) % MCV (81.0-99.0) fl MCH (27.0-31.0) pg MCHC (33.0-37.0) g/dL RDW (11.5-14.5) % Plt Count (130-400) K/uL pCO2 (35-45) mm/Hg pO2 (80-100) mm/Hg HCO3 (21-28) mmol/L ABG pH (7.35-7.45) ABG Total CO2 (22-28) mmol/L ABG O2 Saturation (95-98) % ABG O2 Content (15-23) ML/dL ABG Base Excess (-2.0-3.0) mmol/L ABG Hemoglobin (11.7-17.4) g/dL ABG Carboxyhemoglobin (0.5-1.5) % POC ABG HHb (Measured) (0.0-5.0) % ABG Methemoglobin (0.0-3.0) % ABG O2 Capacity (16-24) mL/dL Boaz Test A-a O2 Difference mm/Hg Hgb O2 Saturation (95.0-98.0) % Vent Mode Mechanical Rate FiO2 % Tidal Volume PEEP Sodium (132-148) mmol/l Potassium (3.6-5.0) MMOL/L Chloride (98-107) mmol/L Carbon Dioxide (22-30) mmol/L Anion Gap (10-20) BUN (7-17) mg/dl Creatinine (0.7-1.2) mg/dl Est GFR ( Amer) Est GFR (Non-Af Amer) POC Glucose (mg/dL) 177 H (65-110) mg/dL Random Glucose (65-105) mg/dL Calcium (8.4-10.2) mg/dL Laboratory Results - last 24 hr 04/25/17 04/25/17 04/25/17 11:20 16:12 21:58 WBC RBC Hgb Hct MCV MCH MCHC RDW Plt Count pCO2 pO2 HCO3 ABG pH ABG Total CO2 ABG O2 Saturation ABG O2 Content ABG Base Excess ABG Hemoglobin ABG Carboxyhemoglobin POC ABG HHb (Measured) ABG Methemoglobin ABG O2 Capacity Boaz Test A-a O2 Difference Hgb O2 Saturation Vent Mode Mechanical Rate FiO2 Tidal Volume PEEP Sodium Potassium Chloride Carbon Dioxide Anion Gap BUN Creatinine Est GFR ( Amer) Est GFR (Non-Af Amer) POC Glucose (mg/dL) 177 H 137 H 142 H Random Glucose Calcium 04/26/17 04/26/17 04/26/17 04:15 04:30 04:30 WBC 9.1 D RBC 4.16 Hgb 11.8 L Hct 37.1 MCV 89.3 MCH 28.3 MCHC 31.7 L RDW 14.6 H Plt Count 133 pCO2 38 pO2 113 H HCO3 30.2 H ABG pH 7.51 H ABG Total CO2 31.5 H ABG O2 Saturation 99.2 H ABG O2 Content 15.1 ABG Base Excess 6.8 H ABG Hemoglobin 11.0 L ABG Carboxyhemoglobin 1.4 POC ABG HHb (Measured) 0.8 ABG Methemoglobin 1.3 ABG O2 Capacity 15.2 L Boaz Test Yes A-a O2 Difference 267.0 Hgb O2 Saturation 96.5 Vent Mode A/c Mechanical Rate 12 FiO2 60.0 Tidal Volume 500 PEEP 5 Sodium 146 Potassium 3.5 L Chloride 107 Carbon Dioxide 32 H Anion Gap 11 BUN 20 H Creatinine 0.4 L Est GFR ( Amer) > 60 Est GFR (Non-Af Amer) > 60 POC Glucose (mg/dL) Random Glucose 135 H Calcium 8.2 L 04/26/17 06:07 WBC RBC Hgb Hct MCV MCH MCHC RDW Plt Count pCO2 pO2 HCO3 ABG pH ABG Total CO2 ABG O2 Saturation ABG O2 Content ABG Base Excess ABG Hemoglobin ABG Carboxyhemoglobin POC ABG HHb (Measured) ABG Methemoglobin ABG O2 Capacity Boaz Test A-a O2 Difference Hgb O2 Saturation Vent Mode Mechanical Rate FiO2 Tidal Volume PEEP Sodium Potassium Chloride Carbon Dioxide Anion Gap BUN Creatinine Est GFR ( Amer) Est GFR (Non-Af Amer) POC Glucose (mg/dL) 138 H Random Glucose Calcium Fingerstick Blood Sugar Results: 138 Review of Systems - Review of Systems Review of Systems: unable to assess because patient is intubated Assessment/Plan - Assessment and Plan (Free Text) Plan: Acute Respiratory Failure -likely 2/2 aspiration Pneumonia vs HAP -afebrile for more than 48 hours -no leukocytosis -ABG today showed no hypercapnia -PRVC AC: respiratory rate: 12, TV: 500, PEEP 5, FiO2 60 % (reduce from prior 80 %) -on Vancomycin 1 gm IVPB daily day #6 (started on 04/21/17) -on Meropenem 1 g IV Q8 day #4 ( started on 04/23/17) as per ID -start Diamox 500 mg IV Q12 to giv -DC Zosyn as per ID -f/u ABG and CXR in AM -repeated blood cultures on 04/22/17 showed no growth after 3 days -Vanco trough 5.7 on 04/24/17 -CXR today reported as decreased in size of now small right pleural effusion. Endotracheal an enteric tubes unchanged. -On antibiotics for aspiration pneumonia. Patient is high risk for aspiration pneumonia. -Pulmonology on consult as per primary team. Rec are appreciated -ID was consulted by primary team. rec are appreciated. Acute Ischemic Stroke -On aspirin 81 mg daily -On atorvastatin 40 mg daily -On Eliquis( empirically started by neuro ) -c/w glycemic control -last Head CT w/o contrast on 04/24/17 reported as no evidence of acute infarct. Subacute infarct right mcleod radiata/centrum semiovale. No acute hemorrhage - MRI head showed acute stroke in right frontal lobe white matter. -Repeat MRI of the Brain : showed acute/ subacute stroke in right [facility]cle[facility] radiata and centrum ovale -Neurology was consulted by primary team Hypokalemia -K+ 3.5 today -replace potassium -f/u K+ Positive fluid balance -start furosemide 20 mg IV Q12 -re-assess Diabetes Mellitus type2 -c/w glycemic control -Hgb A1c 16 Hypertension -c/w current HTN management s/p stroke Diabetic foot calluses -Podiatry on consult by primary team -Podiatry recs are appreciated Prophylaxis -DVT prophylaxis : on SCDs and Eliquis 2.5 mg BID -stress ulcer prophylaxis: Protonix 40 mg IV daily -pressure ulcers precautions - Date & Time Date: 04/26/17 Time: 08:25 <Hadley Tyler - Last Filed: 04/26/17 18:32> CCU Objective - Vital Signs / Intake & Output Vital Signs (Last 4 hours): Vital Signs Temp Pulse Resp BP Pulse Ox 04/26/17 18:00 72 12 153/73 H 97 04/26/17 17:00 75 12 152/73 H 97 04/26/17 16:00 97.2 F L 68 12 154/79 H 96 04/26/17 15:00 72 12 152/68 H 97 Intake and Output (Last 8hrs): Intake & Output 04/26/17 04/26/17 04/26/17 06:59 14:59 22:59 Intake Total 1071.1 920 390 Output Total 600 1900 Balance 471.1 920 -1510 Intake: IV 391.1 200 80 Intake, Piggyback 200 Tube Feeding 280 320 160 Free Water Flush 400 200 150 Output: Urine 600 1900 Urethral (Ndiaye) 600 1900 Other: # Bowel Movements 1 2 2 - Medications Active Medications: Active Medications Generic Name Dose Route Start Last Admin Trade Name Freq PRN Reason Stop Dose Admin Acetaminophen 650 mg 04/15/17 23:34 04/24/17 04:23 Tylenol 325mg Tab PO 650 mg Q6 PRN Administration fever > 100.4 Acetaminophen 650 mg 04/21/17 20:53 04/22/17 16:30 Tylenol 650 Mg Supp IA 650 mg Q4 PRN Administration Fever >100.4 F Acetazolamide 500 mg 04/26/17 21:00 Diamox 500 Mg Inj IV Q12 BRIAN Albuterol/Ipratropium 3 ml 04/21/17 05:11 Duoneb 3 Mg/0.5 Mg (3 Ml) Ud INH RQ6 PRN Shortness of Breath Apixaban 2.5 mg 04/17/17 17:00 04/26/17 16:17 Eliquis PO 2.5 mg BID BRIAN Administration Protocol Aspirin 81 mg 04/19/17 13:00 04/26/17 08:51 Aspirin Chewable PO 81 mg DAILY BRIAN Administration Atorvastatin Calcium 40 mg 04/13/17 22:00 04/25/17 22:00 Lipitor PO 40 mg HS BRIAN Administration Bacitracin 1 applic 04/16/17 09:00 04/26/17 16:17 Bacitracin Oint TOP 1 applic BID BRIAN Administration Enalapril Maleate 2.5 mg 04/19/17 17:00 04/26/17 16:19 Vasotec PO 2.5 mg BID BRIAN Administration Furosemide 20 mg 04/26/17 09:00 04/26/17 10:41 Lasix IVP 20 mg Q12 RBIAN Administration Glipizide 10 mg 04/14/17 08:00 04/26/17 16:17 Glucotrol Xl PO 10 mg BRKDIN BRIAN Administration Valproate Sodium 500 mg/ 105 mls @ 105 mls/hr 04/17/17 21:00 04/26/17 09:16 Sodium Chloride IVPB 105 mls/hr Q12 BRIAN Administration As Directed Vancomycin HCl 1 gm/ Sodium 250 mls @ 166.667 mls/hr 04/21/17 20:00 04/25/17 20:13 Chloride IVPB 166.667 mls/hr DAILY@2000 BRIAN Administration Protocol Meropenem 1 gm/ Sodium 100 mls @ 100 mls/hr 04/23/17 01:00 04/26/17 16:18 Chloride IVPB 100 mls/hr Q8 BRIAN Administration Protocol Potassium Chloride/Sodium Chloride 1,000 mls @ 40 mls/hr 04/25/17 12:00 04/25 16:08 Potassium Chl 20 Meq In Ns IV 40 mls/hr .Q24H BRIAN Administration Insulin Detemir 28 units 04/24/17 17:16 04/25/17 22:01 Levemir SC 28 units HS BRIAN Administration Insulin Human Regular 0 units 04/13/17 07:30 04/26/17 16:33 Humulin R SC Not Given ACHS [facility] Protocol Pantoprazole Sodium 40 mg 04/22/17 09:00 04/26/17 08:52 Protonix Inj IVP 40 mg DAILY BRIAN Administration Repaglinide 1 mg 04/14/17 09:00 04/26/17 16:17 Prandin PO 1 mg TID BRIAN Administration Sitagliptin Phosphate 50 mg 04/14/17 09:00 04/26/17 16:18 Januvia PO 50 mg BID BRIAN Administration - Patient Studies Lab Studies: Microbiology Studies 04/21/17 21:05 Blood Culture - Preliminary Blood-Venous NO GROWTH AFTER 4 DAYS 04/21/17 20:55 Blood Culture - Preliminary Blood-Venous NO GROWTH AFTER 4 DAYS 04/22/17 19:03 Blood Culture - Preliminary Blood-Venous NO GROWTH AFTER 3 DAYS 04/22/17 19:03 Blood Culture - Preliminary Blood-Venous NO GROWTH AFTER 3 DAYS Lab Studies 04/26/17 04/26/17 04/26/17 Range/Units 16:26 11:14 06:07 WBC (4.8-10.8) K/uL RBC (3.80-5.20) Mil/uL Hgb (12.0-16.0) g/dL Hct (34.0-47.0) % MCV (81.0-99.0) fl MCH (27.0-31.0) pg MCHC (33.0-37.0) g/dL RDW (11.5-14.5) % Plt Count (130-400) K/uL pCO2 (35-45) mm/Hg pO2 (80-100) mm/Hg HCO3 (21-28) mmol/L ABG pH (7.35-7.45) ABG Total CO2 (22-28) mmol/L ABG O2 Saturation (95-98) % ABG O2 Content (15-23) ML/dL ABG Base Excess (-2.0-3.0) mmol/L ABG Hemoglobin (11.7-17.4) g/dL ABG Carboxyhemoglobin (0.5-1.5) % POC ABG HHb (Measured) (0.0-5.0) % ABG Methemoglobin (0.0-3.0) % ABG O2 Capacity (16-24) mL/dL Boaz Test A-a O2 Difference mm/Hg Hgb O2 Saturation (95.0-98.0) % Vent Mode Mechanical Rate FiO2 % Tidal Volume PEEP Sodium (132-148) mmol/l Potassium (3.6-5.0) MMOL/L Chloride (98-107) mmol/L Carbon Dioxide (22-30) mmol/L Anion Gap (10-20) BUN (7-17) mg/dl Creatinine (0.7-1.2) mg/dl Est GFR ( Amer) Est GFR (Non-Af Amer) POC Glucose (mg/dL) 140 H 121 H 138 H (65-110) mg/dL Random Glucose (65-105) mg/dL Calcium (8.4-10.2) mg/dL 04/26/17 04/26/17 04/26/17 Range/Units 04:30 04:30 04:15 WBC 9.1 D (4.8-10.8) K/uL RBC 4.16 (3.80-5.20) Mil/uL Hgb 11.8 L (12.0-16.0) g/dL Hct 37.1 (34.0-47.0) % MCV 89.3 (81.0-99.0) fl MCH 28.3 (27.0-31.0) pg MCHC 31.7 L (33.0-37.0) g/dL RDW 14.6 H (11.5-14.5) % Plt Count 133 (130-400) K/uL pCO2 38 (35-45) mm/Hg pO2 113 H (80-100) mm/Hg HCO3 30.2 H (21-28) mmol/L ABG pH 7.51 H (7.35-7.45) ABG Total CO2 31.5 H (22-28) mmol/L ABG O2 Saturation 99.2 H (95-98) % ABG O2 Content 15.1 (15-23) ML/dL ABG Base Excess 6.8 H (-2.0-3.0) mmol/L ABG Hemoglobin 11.0 L (11.7-17.4) g/dL ABG Carboxyhemoglobin 1.4 (0.5-1.5) % POC ABG HHb (Measured) 0.8 (0.0-5.0) % ABG Methemoglobin 1.3 (0.0-3.0) % ABG O2 Capacity 15.2 L (16-24) mL/dL Boaz Test Yes A-a O2 Difference 267.0 mm/Hg Hgb O2 Saturation 96.5 (95.0-98.0) % Vent Mode A/c Mechanical Rate 12 FiO2 60.0 % Tidal Volume 500 PEEP 5 Sodium 146 (132-148) mmol/l Potassium 3.5 L (3.6-5.0) MMOL/L Chloride 107 (98-107) mmol/L Carbon Dioxide 32 H (22-30) mmol/L Anion Gap 11 (10-20) BUN 20 H (7-17) mg/dl Creatinine 0.4 L (0.7-1.2) mg/dl Est GFR ( Amer) > 60 Est GFR (Non-Af Amer) > 60 POC Glucose (mg/dL) (65-110) mg/dL Random Glucose 135 H (65-105) mg/dL Calcium 8.2 L (8.4-10.2) mg/dL 04/25/17 Range/Units 21:58 WBC (4.8-10.8) K/uL RBC (3.80-5.20) Mil/uL Hgb (12.0-16.0) g/dL Hct (34.0-47.0) % MCV (81.0-99.0) fl MCH (27.0-31.0) pg MCHC (33.0-37.0) g/dL RDW (11.5-14.5) % Plt Count (130-400) K/uL pCO2 (35-45) mm/Hg pO2 (80-100) mm/Hg HCO3 (21-28) mmol/L ABG pH (7.35-7.45) ABG Total CO2 (22-28) mmol/L ABG O2 Saturation (95-98) % ABG O2 Content (15-23) ML/dL ABG Base Excess (-2.0-3.0) mmol/L ABG Hemoglobin (11.7-17.4) g/dL ABG Carboxyhemoglobin (0.5-1.5) % POC ABG HHb (Measured) (0.0-5.0) % ABG Methemoglobin (0.0-3.0) % ABG O2 Capacity (16-24) mL/dL Boaz Test A-a O2 Difference mm/Hg Hgb O2 Saturation (95.0-98.0) % Vent Mode Mechanical Rate FiO2 % Tidal Volume PEEP Sodium (132-148) mmol/l Potassium (3.6-5.0) MMOL/L Chloride (98-107) mmol/L Carbon Dioxide (22-30) mmol/L Anion Gap (10-20) BUN (7-17) mg/dl Creatinine (0.7-1.2) mg/dl Est GFR ( Amer) Est GFR (Non-Af Amer) POC Glucose (mg/dL) 142 H (65-110) mg/dL Random Glucose (65-105) mg/dL Calcium (8.4-10.2) mg/dL Laboratory Results - last 24 hr 04/25/17 04/26/17 04/26/17 21:58 04:15 04:30 WBC 9.1 D RBC 4.16 Hgb 11.8 L Hct 37.1 MCV 89.3 MCH 28.3 MCHC 31.7 L RDW 14.6 H Plt Count 133 pCO2 38 pO2 113 H HCO3 30.2 H ABG pH 7.51 H ABG Total CO2 31.5 H ABG O2 Saturation 99.2 H ABG O2 Content 15.1 ABG Base Excess 6.8 H ABG Hemoglobin 11.0 L ABG Carboxyhemoglobin 1.4 POC ABG HHb (Measured) 0.8 ABG Methemoglobin 1.3 ABG O2 Capacity 15.2 L Boaz Test Yes A-a O2 Difference 267.0 Hgb O2 Saturation 96.5 Vent Mode A/c Mechanical Rate 12 FiO2 60.0 Tidal Volume 500 PEEP 5 Sodium Potassium Chloride Carbon Dioxide Anion Gap BUN Creatinine Est GFR ( Amer) Est GFR (Non-Af Amer) POC Glucose (mg/dL) 142 H Random Glucose Calcium 04/26/17 04/26/17 04/26/17 04:30 06:07 11:14 WBC RBC Hgb Hct MCV MCH MCHC RDW Plt Count pCO2 pO2 HCO3 ABG pH ABG Total CO2 ABG O2 Saturation ABG O2 Content ABG Base Excess ABG Hemoglobin ABG Carboxyhemoglobin POC ABG HHb (Measured) ABG Methemoglobin ABG O2 Capacity Boaz Test A-a O2 Difference Hgb O2 Saturation Vent Mode Mechanical Rate FiO2 Tidal Volume PEEP Sodium 146 Potassium 3.5 L Chloride 107 Carbon Dioxide 32 H Anion Gap 11 BUN 20 H Creatinine 0.4 L Est GFR ( Amer) > 60 Est GFR (Non-Af Amer) > 60 POC Glucose (mg/dL) 138 H 121 H Random Glucose 135 H Calcium 8.2 L 04/26/17 16:26 WBC RBC Hgb Hct MCV MCH MCHC RDW Plt Count pCO2 pO2 HCO3 ABG pH ABG Total CO2 ABG O2 Saturation ABG O2 Content ABG Base Excess ABG Hemoglobin ABG Carboxyhemoglobin POC ABG HHb (Measured) ABG Methemoglobin ABG O2 Capacity Boaz Test A-a O2 Difference Hgb O2 Saturation Vent Mode Mechanical Rate FiO2 Tidal Volume PEEP Sodium Potassium Chloride Carbon Dioxide Anion Gap BUN Creatinine Est GFR ( Amer) Est GFR (Non-Af Amer) POC Glucose (mg/dL) 140 H Random Glucose Calcium Attending/Attestation - Attestation I have personally seen and examined this patient.: Yes I have fully participated in the care of the patient.: Yes I have reviewed all pertinent clinical information: Yes Notes (Text): 04/26/17 18:19 I have seen and examined the patient. Medical records, lab studies, and imaging were reviewed by me and a management plan was formulated on multidisciplinary rounds with resident Dr. Hidalgo. I agree with their above documented assessment and plan. The patient has a metabolic alkalosis, but requires further diuresis for positive fluid balance. Will give both lasix and diamox simultaneously. holding sedation to allow patient to wake up. Decreasing fio2 requirements. Once alert will start ps trials. Critical Care Time 35 minutes. Multi-disciplinary rounds were performed with house staff, nursing, speech therapy, respiratory therapy, pharmacy and nutrition with integrated input from the primary team/attending and other consulting services. The documented time is cumulative and includes review of patient data/exams/labs/chart review and examination of the patient on rounds and throughout the day; time is exclusive of any procedures or teaching time.
[2017-04-26] MEDS ORDERED: Chlorhexidine Gluconate 1 APPL/PKT TP ONE (13:47)
--- NOTE | 2017-04-26 15:27 | CP.PCM.PN ---
Subjective - Date & Time of Evaluation Date of Evaluation: 04/26/17 Time of Evaluation: 10:00 - Subjective Subjective: F/U Respiratory Failure, PNA intubated , sedated Objective - Vital Signs/Intake and Output Vital Signs (last 24 hours): Temp Pulse Resp BP Pulse Ox 97.6 F 72 12 152/68 H 97 04/26/17 13:43 04/26/17 15:00 04/26/17 15:00 04/26/17 15:00 04/26/17 15:00 Intake and Output: 04/26/17 04/26/17 06:59 18:59 Intake Total 1639.1 920 Output Total 600 Balance 1039.1 920 - Medications Medications: Current Medications Acetaminophen (Tylenol 325mg Tab) 650 mg PO Q6 PRN PRN Reason: fever > 100.4 Last Admin: 04/24/17 04:23 Dose: 650 mg Acetaminophen (Tylenol 650 Mg Supp) 650 mg [place] Q4 PRN PRN Reason: Fever >100.4 F Last Admin: 04/22/17 16:30 Dose: 650 mg Acetazolamide (Diamox 500 Mg Inj) 500 mg IV Q12 [facility] Albuterol/Ipratropium (Duoneb 3 Mg/0.5 Mg (3 Ml) Ud) 3 ml INH RQ6 PRN PRN Reason: Shortness of Breath Apixaban (Eliquis) 2.5 mg PO BID [facility] PRN Reason: Protocol Last Admin: 04/26/17 08:50 Dose: 2.5 mg Aspirin (Aspirin Chewable) 81 mg PO DAILY [facility] Last Admin: 04/26/17 08:51 Dose: 81 mg Atorvastatin Calcium (Lipitor) 40 mg PO HS [facility] Last Admin: 04/25/17 22:00 Dose: 40 mg Bacitracin (Bacitracin Oint) 1 applic TOP BID [facility] Last Admin: 04/26/17 08:49 Dose: 1 applic Enalapril Maleate (Vasotec) 2.5 mg PO BID [facility] Last Admin: 04/26/17 08:50 Dose: 2.5 mg Furosemide (Lasix) 20 mg IVP Q12 [facility] Last Admin: 04/26/17 10:41 Dose: 20 mg Glipizide (Glucotrol Xl) 10 mg PO BRKDIN [facility] Last Admin: 04/26/17 08:51 Dose: 10 mg Valproate Sodium 500 mg/ (Sodium Chloride) 105 mls @ 105 mls/hr IVPB Q12 [facility] PRN Reason: As Directed Last Admin: 04/26/17 09:16 Dose: 105 mls/hr Vancomycin HCl 1 gm/ Sodium (Chloride) 250 mls @ 166.667 mls/hr IVPB DAILY@ 2000 [facility] PRN Reason: Protocol Last Admin: 04/25/17 20:13 Dose: 166.667 mls/hr Meropenem 1 gm/ Sodium (Chloride) 100 mls @ 100 mls/hr IVPB Q8 [facility] PRN Reason: Protocol Last Admin: 04/26/17 08:46 Dose: 100 mls/hr Potassium Chloride/Sodium Chloride (Potassium Chl 20 Meq In Ns) 1,000 mls @ 40 mls/hr IV .Q24H [facility] Last Admin: 04/25/17 16:08 Dose: 40 mls/hr Insulin Detemir (Levemir) 28 units SC HS [facility] Last Admin: 04/25/17 22:01 Dose: 28 units Insulin Human Regular (Humulin R) 0 units SC ACHS [facility] PRN Reason: Protocol Last Admin: 04/26/17 14:02 Dose: Not Given Pantoprazole Sodium (Protonix Inj) 40 mg IVP DAILY [facility] Last Admin: 04/26/17 08:52 Dose: 40 mg Repaglinide (Prandin) 1 mg PO TID [facility] Last Admin: 04/26/17 12:04 Dose: 1 mg Sitagliptin Phosphate (Januvia) 50 mg PO BID [facility] Last Admin: 04/26/17 08:51 Dose: 50 mg - Labs Labs: 04/26/17 04:30 04/26/17 04:30 PT 9.7 Seconds (9.8-13.1) L 04/12/17 21:15 INR 0.9 (0.9-1.2) 04/12/17 21:15 APTT 26.0 Seconds (25.6-37.1) 04/12/17 21:15 - Constitutional Appears: No Acute Distress, Chronically Ill - Head Exam Head Exam: NORMAL INSPECTION - Eye Exam Eye Exam: PERRL - ENT Exam Additional comments: Intubated - Neck Exam Neck Exam: Normal Inspection - Respiratory Exam Respiratory Exam: Rhonchi (scattered) - Cardiovascular Exam Cardiovascular Exam: REGULAR RHYTHM - GI/Abdominal Exam GI & Abdominal Exam: Soft, Normal Bowel Sounds - Extremities Exam Extremities Exam: Normal Inspection - Neurological Exam Additional comments: Sedated, intubated , minimal response to tactil stimuli , L hemiplegia - Psychiatric Exam Additional comments: Sedated, intubated - Skin Skin Exam: Warm Assessment and Plan (1) Respiratory failure Status: Acute (2) Aspiration pneumonia Status: Acute (3) CVA (cerebral vascular accident) Status: Acute - Assessment and Plan (Free Text) Plan: CXR improved PNA , ventilatory support , DuoNeb Merren , Vanco as per ID ICU Time: 40 min.
--- NOTE | 2017-04-26 20:07 | CP.PCM.PN ---
Subjective - Date & Time of Evaluation Date of Evaluation: 04/26/17 Time of Evaluation: 07:30 - Subjective Subjective: Patient was seen and evaluated bedside this morning .Intubated on MV PRVC AC mode 12/500/5/ 60 % with ABG 38/113/30/7.5 on Propofol drip for sedation but moving right side and opens eyes to verbal stimuli , follows simple command( squeezes right hand to command ) BP 138/78 afebrile CXR showed small right side pleural effusion WBC 9 k Hgb 11.8 Na 146 K 3.5 CO2 32 Hgb A1c 16 Plt [address] with 1.2 corwin feeding @ 50 ml/hr leslie in place : I/O 3169/900 Objective - Vital Signs/Intake and Output Vital Signs (last 24 hours): Temp Pulse Resp BP Pulse Ox 97.2 F L 72 12 153/73 H 97 04/26/17 16:00 04/26/17 18:00 04/26/17 18:00 04/26/17 18:00 04/26/17 18:00 Intake and Output: 04/26/17 04/27/17 18:59 06:59 Intake Total 1310 Output Total 1900 Balance -590 - Medications Medications: Current Medications Acetaminophen (Tylenol 325mg Tab) 650 mg PO Q6 PRN PRN Reason: fever > 100.4 Last Admin: 04/24/17 04:23 Dose: 650 mg Acetaminophen (Tylenol 650 Mg Supp) 650 mg [place] Q4 PRN PRN Reason: Fever >100.4 F Last Admin: 04/22/17 16:30 Dose: 650 mg Acetazolamide (Diamox 500 Mg Inj) 500 mg IV Q12 [facility] Albuterol/Ipratropium (Duoneb 3 Mg/0.5 Mg (3 Ml) Ud) 3 ml INH RQ6 PRN PRN Reason: Shortness of Breath Apixaban (Eliquis) 2.5 mg PO BID [facility] PRN Reason: Protocol Last Admin: 04/26/17 16:17 Dose: 2.5 mg Aspirin (Aspirin Chewable) 81 mg PO DAILY [facility] Last Admin: 04/26/17 08:51 Dose: 81 mg Atorvastatin Calcium (Lipitor) 40 mg PO HS [facility] Last Admin: 04/25/17 22:00 Dose: 40 mg Bacitracin (Bacitracin Oint) 1 applic TOP BID [facility] Last Admin: 04/26/17 16:17 Dose: 1 applic Enalapril Maleate (Vasotec) 2.5 mg PO BID [facility] Last Admin: 04/26/17 16:19 Dose: 2.5 mg Furosemide (Lasix) 20 mg IVP Q12 [facility] Last Admin: 04/26/17 10:41 Dose: 20 mg Glipizide (Glucotrol Xl) 10 mg PO BRKDIN [facility] Last Admin: 04/26/17 16:17 Dose: 10 mg Valproate Sodium 500 mg/ (Sodium Chloride) 105 mls @ 105 mls/hr IVPB Q12 [facility] PRN Reason: As Directed Last Admin: 04/26/17 09:16 Dose: 105 mls/hr Vancomycin HCl 1 gm/ Sodium (Chloride) 250 mls @ 166.667 mls/hr IVPB DAILY@ 2000 [facility] PRN Reason: Protocol Last Admin: 04/25/17 20:13 Dose: 166.667 mls/hr Meropenem 1 gm/ Sodium (Chloride) 100 mls @ 100 mls/hr IVPB Q8 [facility] PRN Reason: Protocol Last Admin: 04/26/17 16:18 Dose: 100 mls/hr Potassium Chloride/Sodium Chloride (Potassium Chl 20 Meq In Ns) 1,000 mls @ 40 mls/hr IV .Q24H [facility] Last Admin: 04/25/17 16:08 Dose: 40 mls/hr Insulin Detemir (Levemir) 28 units SC HS [facility] Last Admin: 04/25/17 22:01 Dose: 28 units Insulin Human Regular (Humulin R) 0 units SC ACHS [facility] PRN Reason: Protocol Last Admin: 04/26/17 16:33 Dose: Not Given Pantoprazole Sodium (Protonix Inj) 40 mg IVP DAILY [facility] Last Admin: 04/26/17 08:52 Dose: 40 mg Repaglinide (Prandin) 1 mg PO TID [facility] Last Admin: 04/26/17 16:17 Dose: 1 mg Sitagliptin Phosphate (Januvia) 50 mg PO BID [facility] Last Admin: 04/26/17 16:18 Dose: 50 mg - Labs Labs: 04/26/17 04:30 04/26/17 04:30 PT 9.7 Seconds (9.8-13.1) L 04/12/17 21:15 INR 0.9 (0.9-1.2) 04/12/17 21:15 APTT 26.0 Seconds (25.6-37.1) 04/12/17 21:15 - Constitutional Appears: Other (intubated , sedated ) - Head Exam Head Exam: ATRAUMATIC, NORMOCEPHALIC - Eye Exam Eye Exam: PERRL - ENT Exam ENT Exam: Mucous Membranes Dry, Normal Exam - Respiratory Exam Respiratory Exam: absent: Wheezes Additional comments: coarse breath sounds bilaterally - Cardiovascular Exam Cardiovascular Exam: REGULAR RHYTHM, +S1, +S2. absent: JVD - GI/Abdominal Exam GI & Abdominal Exam: Soft, Normal Bowel Sounds. absent: Distended, Guarding, Tenderness, Rebound - Rectal Exam Rectal Exam: Deferred - Extremities Exam Extremities Exam: Normal Capillary Refill, Normal Inspection. absent: Pedal Edema - Neurological Exam Additional comments: sedated on propofol drip follows simple command opens eyes to verbal stimuli moves her right side - Skin Skin Exam: Dry, Normal Color, Warm Assessment and Plan - Assessment and Plan (Free Text) Assessment: 72 y/o F PMH DM, HTN, HLD brought to the ED with acutely worsening alteration of mental status and not as verbal . She presented with left facial droop and and some expressive aphasia.CT head was neg for acute CVA or bleed. Patient glucose was elevated 563. She was admitted initially in telemetry for further stroke work up and diabetes control . Neuro consulted.She was started on ASA, Statin, plavix,lovenox , Insulin and IVF .Her BP initially was kept elevated to allow permissive hypertension. MRI head showed acute stroke in right frontal lobe white matter 2/2 While in telemetry , the patient developed worsening BAILON and some left arm weakness. Patient became confused , agitated , restless ,not following any commands. She also started to have fever. Repeat MRI of the Brain : showed acute/ subacute stroke in right mcleod radiata and centrum ovale She was then transferred to ICU for close monitoring She continued to spike fevers for > 48 hours with no obvious source of infection and normal WBC count. All work up sent including CXR, UA,urine cx, blood cx were negative for infection so fever thought to be of central origin and no antibiotics were started 2/7 While in Tele , [employer] called for stridor and respiratory distress . She developed acute hypercapnic respiratory failure was intubated and transferred to ICU. CXR : new infiltrate, poss Asp PNA At present patient is intubated on MV PRVC/ Ac mode , sedated on propofol drip , follows simple commands and moves her right arm CXr showed small right pleural effusion Repeat CT head showed stable CVA 1. Acute hypercapnic respiratory failure Most likely secondary to aspiration pneumonia and patient's inability to handle secretions due to AMS/ CVA currently intubated on MV PRVC AC mode 12/500/5/60% . ABG showing metabolic alkalosis ph 7.5 . Will decrease FIO2 to 40 % and start Diamox with lasix since patient has positive fluid balance Episodes of Stridor were noted before intubation and trial of ventilation by BIPAP , solumedrol and Duonebs with little benefit noted since PCO2 noted to trend up Large respiratory secretion suctioned during intubation and cultures sent ( most likely patient aspirated ) initila CXR showed vascular congestion and possible RLL infiltrate . Repeat CXR today showed minimal right pleural effusion Continue vent management and sedation vacation ID consulted . Continue Meropenem and Vancomycin Pulmonary consulted 2. Progressive Acute ischemic stroke with AMS / lethargy worsening mental status, unable to handle secretions, aspirating , with acute respiratory failure requiring intubation initial presentation of patient was : acute stroke to right frontal lobe that progressed to right mcleod radiata and centrum semiovale stroke Continue ASA, statin, glycemic control, eliquis( empirically started by neuro ) Tylenol PRN for fever on Depakote 500 mg IV Q12 Cardio consulted for possible JUSTYNA - on hold due to pt's medical condition ( Dr Serrato wants pt to do JUSTYNA in [facility], [place] ) Pt empiricaly started on Eliquis Started BP control with low dose ACEI Enalapril 2.5 mg BID Continue OGT Feeding with 1.2 Corwin. increase to goal Repeat CT head showed stable stroke 3. Suspected aspiration Pneumonia/ pneumonitis With CXR findings of new right lobe infiltrate prior to intubation and large secretions suctioned during intubation On IV meropenem and Vanco ID and pulmonary on Consult Blood c/s : neg so far Continue Vent management, Duonebs Repeat CXR today showed small right pleural effusion 4 .Uncontrolled DM with hyperglycemia Continue accuchecks, insulin coverage Increased Levemir to 28 units q hs, cont Glucotrol, prandin , Januvia Hgb A1c 16 5. Hypertension permissive hypertension while stroke was evolving Started enalapril Low dose 6. Dyslipidemia c/w Atorvastatin 40 mg PO 7. Diabetic foot calluses podiatry consulted and following Doppler US of LE - good arterial flow 8. DVT ppx on eliquis
[2017-04-26] MEDS: Insulin Detemir 100 Units/ml Inj SC SCH (21:36)
[2017-04-27] MEDS: Propofol 10 mg/ml 1,000 MG/100 ML VIAL IV SCH (00:29)
[2017-04-27] MEDS: Meropenem 1 GM in Sodium Chloride 0.9% 100 ML IVPB SCH ×3 (00:47→17:08)
[2017-04-27] MEDS: Potassium Chl 20 mEq in NS 1,000 ML IV SCH ×2 (04:25→17:01)
[2017-04-27 04:59] LABS: ABG ALLEN TEST YES; ARTERIAL BLOOD GAS HCO3 26.8 mmol/L (21-28); ARTERIAL BLOOD GAS O2 SAT 97.6 % (95-98); ARTERIAL BLOOD GAS PCO2 37 mm/Hg (35-45); ARTERIAL BLOOD GAS PH 7.46 (7.35-7.45); ARTERIAL BLOOD GAS PO2 77 mm/Hg (80-100); ARTERIAL BLOOD GAS TCO2 27.4 mmol/L (22-28)
[2017-04-27 05:26] LABS: HEMOGLOBIN 11.6 g/dL (12.0-16.0); MEAN CELL VOLUME 88.9 fl (81.0-99.0); MEAN CORPUSCULAR HEMOGLOBIN 28.1 pg (27.0-31.0); MEAN CORPUSCULAR HGB CONC 31.7 g/dL (33.0-37.0); RBC 4.12 Mil/uL (3.80-5.20); RED CELL DISTRIBUTION WIDTH 14.6 % (11.5-14.5); WHITE BLOOD COUNT 11.5 K/uL (4.8-10.8)
[2017-04-27 06:08] LABS: ALB/GLOB RATIO 0.7 (1.0-2.1); ALBUMIN 2.9 g/dL (3.5-5.0); ALT/SGPT 24 U/L (9-52); AST/SGOT 20 U/L (14-36); BLOOD UREA NITROGEN 10 mg/dl (7-17); CALCIUM 8.5 mg/dL (8.4-10.2); GFR AFRICAN-AMERICAN > 60; GFR NON-AFRICAN AMERICAN > 60
[2017-04-27] MEDS: GlipiZIDE 10 mg SR Tab PO SCH ×2 (09:00→17:09)
[2017-04-27] MEDS: Valproate 500 MG in Sodium Chloride 0.9% 100 ML IVPB SCH ×2 (09:02→21:58)
[2017-04-27] MEDS: Bacitracin OINT 15GM TOP SCH ×3 (09:06→17:09)
[2017-04-27] MEDS: Insulin Regular 100 units/ml SC SCH ×4 (09:06→21:30)
--- NOTE | 2017-04-27 10:02 | CP.PCM.PN ---
Subjective - Date & Time of Evaluation Date of Evaluation: 04/27/17 Time of Evaluation: 09:59 - Subjective Subjective: Ms. Black was seen and examined at the bedside in ICU. She remains on mechanical ventilator PRVC AC mode 12/500/5/ 60 % with ABG 38/113/30/7.5 She opens her eyes spontaneous with verbal stimuli, moves right side and left lower extremity, follows simple command( squeezes right hand to command, raising her bilateral lower extremities and right upper extremity). She pulled her NGT this morning. There was no untoward events overnight. Objective - Vital Signs/Intake and Output Vital Signs (last 24 hours): Temp Pulse Resp BP Pulse Ox 99.0 F 91 H 20 160/67 H 99 04/27/17 08:50 04/27/17 08:50 04/27/17 08:50 04/27/17 09:00 04/27/17 08:50 Intake and Output: 04/27/17 04/27/17 06:59 18:59 Intake Total 1700 Output Total 2665 Balance -965 - Medications Medications: Current Medications Acetaminophen (Tylenol 325mg Tab) 650 mg PO Q6 PRN PRN Reason: fever > 100.4 Last Admin: 04/24/17 04:23 Dose: 650 mg Acetaminophen (Tylenol 650 Mg Supp) 650 mg [place] Q4 PRN PRN Reason: Fever >100.4 F Last Admin: 04/22/17 16:30 Dose: 650 mg Acetazolamide (Diamox 500 Mg Inj) 500 mg IV Q12 [facility] Last Admin: 04/27/17 09:01 Dose: 500 mg Albuterol/Ipratropium (Duoneb 3 Mg/0.5 Mg (3 Ml) Ud) 3 ml INH RQ6 PRN PRN Reason: Shortness of Breath Apixaban (Eliquis) 2.5 mg PO BID [facility] PRN Reason: Protocol Last Admin: 04/27/17 09:00 Dose: 2.5 mg Aspirin (Aspirin Chewable) 81 mg PO DAILY [facility] Last Admin: 04/27/17 09:00 Dose: 81 mg Atorvastatin Calcium (Lipitor) 40 mg PO HS [facility] Last Admin: 04/26/17 21:34 Dose: 40 mg Bacitracin (Bacitracin Oint) 1 applic TOP BID [facility] Last Admin: 04/27/17 09:06 Dose: 1 applic Enalapril Maleate (Vasotec) 2.5 mg PO BID [facility] Last Admin: 04/27/17 09:00 Dose: 2.5 mg Furosemide (Lasix) 20 mg IVP Q12 [facility] Last Admin: 04/27/17 09:00 Dose: 20 mg Glipizide (Glucotrol Xl) 10 mg PO BRKDIN [facility] Last Admin: 04/27/17 09:00 Dose: 10 mg Valproate Sodium 500 mg/ (Sodium Chloride) 105 mls @ 105 mls/hr IVPB Q12 [facility] PRN Reason: As Directed Last Admin: 04/27/17 09:02 Dose: 105 mls/hr Vancomycin HCl 1 gm/ Sodium (Chloride) 250 mls @ 166.667 mls/hr IVPB DAILY@ 2000 [facility] PRN Reason: Protocol Last Admin: 04/26/17 21:16 Dose: 166.667 mls/hr Meropenem 1 gm/ Sodium (Chloride) 100 mls @ 100 mls/hr IVPB Q8 [facility] PRN Reason: Protocol Last Admin: 04/27/17 09:01 Dose: 100 mls/hr Potassium Chloride/Sodium Chloride (Potassium Chl 20 Meq In Ns) 1,000 mls @ 40 mls/hr IV .Q24H [facility] Last Admin: 04/27/17 04:25 Dose: 40 mls/hr Insulin Detemir (Levemir) 28 units SC HS [facility] Last Admin: 04/26/17 21:36 Dose: 28 units Insulin Human Regular (Humulin R) 0 units SC ACHS [facility] PRN Reason: Protocol Last Admin: 04/27/17 09:06 Dose: 1 units Pantoprazole Sodium (Protonix Inj) 40 mg IVP DAILY [facility] Last Admin: 04/27/17 08:59 Dose: 40 mg Repaglinide (Prandin) 1 mg PO TID [facility] Last Admin: 04/27/17 09:01 Dose: 1 mg Sitagliptin Phosphate (Januvia) 50 mg PO BID [facility] Last Admin: 04/27/17 09:00 Dose: 50 mg - Labs Labs: 04/27/17 04:45 04/27/17 04:45 PT 9.7 Seconds (9.8-13.1) L 04/12/17 21:15 INR 0.9 (0.9-1.2) 04/12/17 21:15 APTT 26.0 Seconds (25.6-37.1) 04/12/17 21:15 - Constitutional Appears: No Acute Distress - Head Exam Head Exam: NORMAL INSPECTION - Neurological Exam Neurological Exam: Alert, Awake, Oriented x3 Neuro motor strength exam: Left Upper Extremity: 0, Right Upper Extremity: 4, Left Lower Extremity: 3, Right Lower Extremity: 4 Additional comments: Neurological improved from previous examination. She is more alert, able to follow simple commands. Assessment and Plan (1) CVA (cerebral vascular accident) Assessment & Plan: Case discussed with Dr. Alberts, continue all current medical regimen. Recommend blood pressure control. Status: Acute
[2017-04-27] MEDS ORDERED: Potassium Chloride 20 mEq/15 ml LIQ UD PO ONE (10:41)
--- NOTE | 2017-04-27 11:16 | CP.CCUPN ---
<Sharyn Hidalgo - Last Filed: 04/27/17 14:53> CCU Subjective - Physician Review Subjective (Free Text): 04/27/17 This is a 72 y/o F with PMHx of HTN, HLD, DM, CAD and bilateral hallus ulceration. Patient was brought in via EMS to ER on 04/12 for evaluation of altered mental status, onset a few months ago. Patient was admitted to the telemetry unit with acute cerebral vascular accident. On 04/17 patient developed change in mental status/left upper extremity weakness, CODE STROKE was called and was transferred to ICU. On 04/20 patient was transferred back to Telemetry unit. Patient was seen and examined with dredge operator attending during ICU round this morning. Patient seen awake, open eyes, answering yes/no questions moving her head. Sedation with propofol was discontinued yesterday. Still intubated on PRVC: Rate: 12, TV: 500, PEEP: 5, FIO2 40 %, we switched to CPAP /PSV ( 8cmH2O, 5 PEEP, 45 % FiO2), patient hemodynamically stable, BP: 144/67, HR:86, oxygen sat 97 % on 45 FiO2, RR: 24 (less than 28-30), PT Vte: 300. Critical Care Time Spent (in minutes): 45 CCU Objective - Vital Signs / Intake & Output Vital Signs (Last 4 hours): Vital Signs Temp Pulse Resp BP Pulse Ox 04/27/17 09:00 160/67 H 04/27/17 08:50 99.0 F 91 H 20 158/70 H 99 Intake and Output (Last 8hrs): Intake & Output 04/26/17 04/27/17 04/27/17 22:59 06:59 14:59 Intake Total 1100 990 Output Total 1915 2650 Balance -815 -1660 Intake: IV 120 240 Intake, Piggyback 350 150 Tube Feeding 280 400 Free Water Flush 350 200 Output: Gastric Amount 15 0 Right Nares 15 Stomach 0 Urine 1900 2550 Urethral (Ndiaye) 1900 2550 Stool 100 Other: # Bowel Movements 1 - Physical Exam Head: Positive for: Atraumatic, Normocephalic Pupils: Positive for: PERRL Mouth: Positive for: Moist Mucous Membranes Respiratory/Chest: Positive for: Clear to Auscultation. Negative for: Respiratory Distress, Wheezes, Rhonchi Abdomen: Positive for: Normal Bowel Sounds. Negative for: Tenderness, Distention, Guarding Upper Extremity: Positive for: Capillary Refill < 2s. Negative for: Cyanosis Lower Extremity: Negative for: Edema Skin: Positive for: Warm, Dry, Pale Psychiatric: Positive for: Alert, Other (awake) - Medications Active Medications: Active Medications Generic Name Dose Route Start Last Admin Trade Name Freq PRN Reason Stop Dose Admin Acetaminophen 650 mg 04/15/17 23:34 04/24/17 04:23 Tylenol 325mg Tab PO 650 mg Q6 PRN Administration fever > 100.4 Acetaminophen 650 mg 04/21/17 20:53 04/22/17 16:30 Tylenol 650 Mg Supp WI 650 mg Q4 PRN Administration Fever >100.4 F Acetazolamide 500 mg 04/26/17 21:00 04/27/17 09:01 Diamox 500 Mg Inj IV 500 mg Q12 BRIAN Administration Albuterol/Ipratropium 3 ml 04/21/17 05:11 Duoneb 3 Mg/0.5 Mg (3 Ml) Ud INH RQ6 PRN Shortness of Breath Apixaban 2.5 mg 04/17/17 17:00 04/27/17 09:00 Eliquis PO 2.5 mg BID BRIAN Administration Protocol Aspirin 81 mg 04/19/17 13:00 04/27/17 09:00 Aspirin Chewable PO 81 mg DAILY BRIAN Administration Atorvastatin Calcium 40 mg 04/13/17 22:00 04/26/17 21:34 Lipitor PO 40 mg HS BRIAN Administration Bacitracin 1 applic 04/16/17 09:00 04/27/17 09:06 Bacitracin Oint TOP 1 applic BID BRIAN Administration Enalapril Maleate 2.5 mg 04/19/17 17:00 04/27/17 09:00 Vasotec PO 2.5 mg BID BRIAN Administration Furosemide 20 mg 04/26/17 09:00 04/27/17 09:00 Lasix IVP 20 mg Q12 BRIAN Administration Glipizide 10 mg 04/14/17 08:00 04/27/17 09:00 Glucotrol Xl PO 10 mg BRKDIN BRIAN Administration Valproate Sodium 500 mg/ 105 mls @ 105 mls/hr 04/17/17 21:00 04/27/17 09:02 Sodium Chloride IVPB 105 mls/hr Q12 BRIAN Administration As Directed Vancomycin HCl 1 gm/ Sodium 250 mls @ 166.667 mls/hr 04/21/17 20:00 04/26/17 21:16 Chloride IVPB 166.667 mls/hr DAILY@2000 BRIAN Administration Protocol Meropenem 1 gm/ Sodium 100 mls @ 100 mls/hr 04/23/17 01:00 04/27/17 09:01 Chloride IVPB 100 mls/hr Q8 BRIAN Administration Protocol Potassium Chloride/Sodium Chloride 1,000 mls @ 40 mls/hr 04/25/17 12:00 04/27 04:25 Potassium Chl 20 Meq In Ns IV 40 mls/hr .Q24H BRIAN Administration Insulin Detemir 28 units 04/24/17 17:16 04/26/17 21:36 Levemir SC 28 units HS BRIAN Administration Insulin Human Regular 0 units 04/13/17 07:30 04/27/17 09:06 Humulin R SC 1 units ACHS BRIAN Administration Protocol Pantoprazole Sodium 40 mg 04/22/17 09:00 04/27/17 08:59 Protonix Inj IVP 40 mg DAILY BRIAN Administration Repaglinide 1 mg 04/14/17 09:00 04/27/17 09:01 Prandin PO 1 mg TID BRIAN Administration Sitagliptin Phosphate 50 mg 04/14/17 09:00 04/27/17 09:00 Januvia PO 50 mg BID BRIAN Administration - Patient Studies Lab Studies: Microbiology Studies 04/21/17 21:05 Blood Culture - Final Blood-Venous NO GROWTH AFTER 5 DAYS Gram Stain - Final TEST NOT PERFORMED 04/21/17 20:55 Blood Culture - Final Blood-Venous NO GROWTH AFTER 5 DAYS Gram Stain - Final TEST NOT PERFORMED 04/22/17 19:03 Blood Culture - Preliminary Blood-Venous NO GROWTH AFTER 4 DAYS 04/22/17 19:03 Blood Culture - Preliminary Blood-Venous NO GROWTH AFTER 4 DAYS Lab Studies 04/27/17 04/27/17 04/27/17 Range/Units 04:56 04:45 04:45 WBC 11.5 H (4.8-10.8) K/uL RBC 4.12 (3.80-5.20) Mil/uL Hgb 11.6 L (12.0-16.0) g/dL Hct 36.6 (34.0-47.0) % MCV 88.9 (81.0-99.0) fl MCH 28.1 (27.0-31.0) pg MCHC 31.7 L (33.0-37.0) g/dL RDW 14.6 H (11.5-14.5) % Plt Count 156 (130-400) K/uL pCO2 37 (35-45) mm/Hg pO2 77 L (80-100) mm/Hg HCO3 26.8 (21-28) mmol/L ABG pH 7.46 H (7.35-7.45) ABG Total CO2 27.4 (22-28) mmol/L ABG O2 Saturation 97.6 (95-98) % ABG Base Excess 2.5 (-2.0-3.0) mmol/L Boaz Test Yes ABG Potassium 3.2 L (3.6-5.2) mmol/L A-a O2 Difference 162.0 mm/Hg Glucose 185 H (65-105) mg/dL Lactate 0.9 (0.7-2.1) mmol/L Vent Mode A/c Mechanical Rate 12 FiO2 40.0 % Tidal Volume 500 PEEP 5 Sodium 138.0 142 (132-148) mmol/l Potassium 3.4 L (3.6-5.0) MMOL/L Chloride 107.0 106 (98-107) mmol/L Carbon Dioxide 29 (22-30) mmol/L Anion Gap 10 (10-20) BUN 10 (7-17) mg/dl Creatinine 0.5 L (0.7-1.2) mg/dl Est GFR ( Amer) > 60 Est GFR (Non-Af Amer) > 60 POC Glucose (mg/dL) (65-110) mg/dL Random Glucose 184 H (65-105) mg/dL Calcium 8.5 (8.4-10.2) mg/dL Total Bilirubin 0.4 (0.2-1.3) mg/dl AST 20 (14-36) U/L ALT 24 (9-52) U/L Alkaline Phosphatase 76 (38-126) U/L Total Protein 6.8 (6.3-8.2) G/DL Albumin 2.9 L (3.5-5.0) g/dL Globulin 3.9 (2.2-3.9) gm/dL Albumin/Globulin Ratio 0.7 L (1.0-2.1) Arterial Blood Potassium 3.2 L (3.6-5.2) mmol/L 04/27/17 04/26/17 04/26/17 Range/Units 04:43 21:32 16:26 WBC (4.8-10.8) K/uL RBC (3.80-5.20) Mil/uL Hgb (12.0-16.0) g/dL Hct (34.0-47.0) % MCV (81.0-99.0) fl MCH (27.0-31.0) pg MCHC (33.0-37.0) g/dL RDW (11.5-14.5) % Plt Count (130-400) K/uL pCO2 (35-45) mm/Hg pO2 (80-100) mm/Hg HCO3 (21-28) mmol/L ABG pH (7.35-7.45) ABG Total CO2 (22-28) mmol/L ABG O2 Saturation (95-98) % ABG Base Excess (-2.0-3.0) mmol/L Boaz Test ABG Potassium (3.6-5.2) mmol/L A-a O2 Difference mm/Hg Glucose (65-105) mg/dL Lactate (0.7-2.1) mmol/L Vent Mode Mechanical Rate FiO2 % Tidal Volume PEEP Sodium (132-148) mmol/l Potassium (3.6-5.0) MMOL/L Chloride (98-107) mmol/L Carbon Dioxide (22-30) mmol/L Anion Gap (10-20) BUN (7-17) mg/dl Creatinine (0.7-1.2) mg/dl Est GFR ( Amer) Est GFR (Non-Af Amer) POC Glucose (mg/dL) 152 H 111 H 140 H (65-110) mg/dL Random Glucose (65-105) mg/dL Calcium (8.4-10.2) mg/dL Total Bilirubin (0.2-1.3) mg/dl AST (14-36) U/L ALT (9-52) U/L Alkaline Phosphatase (38-126) U/L Total Protein (6.3-8.2) G/DL Albumin (3.5-5.0) g/dL Globulin (2.2-3.9) gm/dL Albumin/Globulin Ratio (1.0-2.1) Arterial Blood Potassium (3.6-5.2) mmol/L 04/26/17 Range/Units 11:14 WBC (4.8-10.8) K/uL RBC (3.80-5.20) Mil/uL Hgb (12.0-16.0) g/dL Hct (34.0-47.0) % MCV (81.0-99.0) fl MCH (27.0-31.0) pg MCHC (33.0-37.0) g/dL RDW (11.5-14.5) % Plt Count (130-400) K/uL pCO2 (35-45) mm/Hg pO2 (80-100) mm/Hg HCO3 (21-28) mmol/L ABG pH (7.35-7.45) ABG Total CO2 (22-28) mmol/L ABG O2 Saturation (95-98) % ABG Base Excess (-2.0-3.0) mmol/L Boaz Test ABG Potassium (3.6-5.2) mmol/L A-a O2 Difference mm/Hg Glucose (65-105) mg/dL Lactate (0.7-2.1) mmol/L Vent Mode Mechanical Rate FiO2 % Tidal Volume PEEP Sodium (132-148) mmol/l Potassium (3.6-5.0) MMOL/L Chloride (98-107) mmol/L Carbon Dioxide (22-30) mmol/L Anion Gap (10-20) BUN (7-17) mg/dl Creatinine (0.7-1.2) mg/dl Est GFR ( Amer) Est GFR (Non-Af Amer) POC Glucose (mg/dL) 121 H (65-110) mg/dL Random Glucose (65-105) mg/dL Calcium (8.4-10.2) mg/dL Total Bilirubin (0.2-1.3) mg/dl AST (14-36) U/L ALT (9-52) U/L Alkaline Phosphatase (38-126) U/L Total Protein (6.3-8.2) G/DL Albumin (3.5-5.0) g/dL Globulin (2.2-3.9) gm/dL Albumin/Globulin Ratio (1.0-2.1) Arterial Blood Potassium (3.6-5.2) mmol/L Laboratory Results - last 24 hr 04/26/17 04/26/17 04/26/17 11:14 16:26 21:32 WBC RBC Hgb Hct MCV MCH MCHC RDW Plt Count pCO2 pO2 HCO3 ABG pH ABG Total CO2 ABG O2 Saturation ABG Base Excess Boaz Test ABG Potassium A-a O2 Difference Glucose Lactate Vent Mode Mechanical Rate FiO2 Tidal Volume PEEP Sodium Potassium Chloride Carbon Dioxide Anion Gap BUN Creatinine Est GFR ( Amer) Est GFR (Non-Af Amer) POC Glucose (mg/dL) 121 H 140 H 111 H Random Glucose Calcium Total Bilirubin AST ALT Alkaline Phosphatase Total Protein Albumin Globulin Albumin/Globulin Ratio Arterial Blood Potassium 04/27/17 04/27/17 04/27/17 04:43 04:45 04:45 WBC 11.5 H RBC 4.12 Hgb 11.6 L Hct 36.6 MCV 88.9 MCH 28.1 MCHC 31.7 L RDW 14.6 H Plt Count 156 pCO2 pO2 HCO3 ABG pH ABG Total CO2 ABG O2 Saturation ABG Base Excess Boaz Test ABG Potassium A-a O2 Difference Glucose Lactate Vent Mode Mechanical Rate FiO2 Tidal Volume PEEP Sodium 142 Potassium 3.4 L Chloride 106 Carbon Dioxide 29 Anion Gap 10 BUN 10 Creatinine 0.5 L Est GFR ( Amer) > 60 Est GFR (Non-Af Amer) > 60 POC Glucose (mg/dL) 152 H Random Glucose 184 H Calcium 8.5 Total Bilirubin 0.4 AST 20 ALT 24 Alkaline Phosphatase 76 Total Protein 6.8 Albumin 2.9 L Globulin 3.9 Albumin/Globulin Ratio 0.7 L Arterial Blood Potassium 04/27/17 04:56 WBC RBC Hgb Hct MCV MCH MCHC RDW Plt Count pCO2 37 pO2 77 L HCO3 26.8 ABG pH 7.46 H ABG Total CO2 27.4 ABG O2 Saturation 97.6 ABG Base Excess 2.5 Boaz Test Yes ABG Potassium 3.2 L A-a O2 Difference 162.0 Glucose 185 H Lactate 0.9 Vent Mode A/c Mechanical Rate 12 FiO2 40.0 Tidal Volume 500 PEEP 5 Sodium 138.0 Potassium Chloride 107.0 Carbon Dioxide Anion Gap BUN Creatinine Est GFR ( Amer) Est GFR (Non-Af Amer) POC Glucose (mg/dL) Random Glucose Calcium Total Bilirubin AST ALT Alkaline Phosphatase Total Protein Albumin Globulin Albumin/Globulin Ratio Arterial Blood Potassium 3.2 L Fingerstick Blood Sugar Results: 152 Review of Systems - Review of Systems Review of Systems: responding yes/no questions moving her head, denies any pain at this evaluation Assessment/Plan - Assessment and Plan (Free Text) Plan: Acute Respiratory Failure -likely 2/2 aspiration Pneumonia vs HAP -improving -afebrile for more 3 days -ABG today showed no hypercapnia -PRVC AC switched to CPAP/PSV at 10 am -started on CPAP/PSV to prepare for extubation. patient tolerating well CPAP/PSV -on Vancomycin 1 gm IVPB daily day #7 (started on 04/21/17) -on Meropenem 1 g IV Q8 day #5( started on 04/23/17) as per ID -c/w Diamox 500 mg IV Q12 (started on 04/27/17). Will consider DC tomorrow. F/u HCO3 -f/u ABG and CXR in AM -repeated blood cultures on 04/22/17 showed no growth after 3 days -Vanco trough 5.7 on 04/24/17 -CXR today showed possible evidence of mild improvement from prior x ray. Pending official reading -On antibiotics for aspiration pneumonia. Patient is high risk for aspiration pneumonia. -Pulmonology on consult as per primary team. Rec are appreciated -ID was consulted by primary team. rec are appreciated. Acute Ischemic Stroke -On aspirin 81 mg daily -On atorvastatin 40 mg daily -On Eliquis( empirically started by neuro ) -c/w glycemic control -last Head CT w/o contrast on 04/24/17 reported as no evidence of acute infarct. Subacute infarct right [facility] radiata/centrum semiovale. No acute hemorrhage - MRI head showed acute stroke in right frontal lobe white matter. -Repeat MRI of the Brain : showed acute/ subacute stroke in right [facility] radiata and centrum ovale -Neurology was consulted by primary team Hypokalemia -K+ 3.4 today -replace potassium -f/u repeat K+ Positive fluid balance -improving -c/w furosemide 20 mg IV Q12 -re-assess tomorrow -normal renal function, GFR>60 Diabetes Mellitus type2 -c/w glycemic control -Hgb A1c 16 Hypertension -c/w current HTN management s/p stroke Diabetic foot calluses -Podiatry on consult by primary team -Podiatry recs are appreciated Prophylaxis -DVT prophylaxis : on SCDs and Eliquis 2.5 mg BID -stress ulcer prophylaxis: Protonix 40 mg IV daily -pressure ulcers precautions - Date & Time Date: 04/27/17 Time: 08:25 <JezCayetano Doen - Last Filed: 04/27/17 17:56> CCU Subjective - Physician Review Subjective (Free Text): Attestation: Patient seen and examined at the bedside with Resident Dr. Romana Hidalgo; and I agree with her outline of plans and management documented above as discussed on AM rounds reflecting my review of all applicable clinical data, and participation in the care of the patient throughout the day in ICU; April. Time spent with this patient did not overlap with any other provider's medical or critical care time. Additionally the code selected for the services rendered in this note includes the time spent: talking to the patients family, associated physicians and reviewing hospital data/results not listed here which extended to a total of 45 minutes. Extubation tolerated earlier, now placed on interim BiPAP support due to mild increased work of breathing from upper airway stridor which improved after removal of OGT and concomitant racemic Epi nebulizer therapy. Critical Care Progress Note - Ventilator Checklist Head of Bed 30 Degrees: Yes Daily Sedation Vacation: Yes Daily Assessment of Readiness to Wean: Yes Daily Spontaneous Breathing Trial: Yes PUD Prophalyxis: Yes DVT Prophylaxis: Yes Oral Care with Chlorhexidine Gluconate {CHG}: Yes - Vent Settings MODE:: ASSIST CONTROL TIDAL VOLUME:: 500 RESP RATE:: 12 FIO2:: 40 PEEP:: 5 - Extremities/Vascular Does the Patient have a Ndiaye Catheter?: Yes Does the Patient need a Ndiaye Catheter?: Yes Catheter Insertion Criteria: Need for accurate measurement of output in critically ill patient - Restraints Justification for Restraints: High risk for self extubation - Prophylaxis GI Prophylaxis GI: PPI - Prophylaxis DVT Prophylaxis DVT: SCDs, Not Indicated (on Eliquis)
--- NOTE | 2017-04-27 11:50 | PCM.PROC ---
Procedures Attestation:: I certify that I have explained the specified Operation(s) or Procedure(s), risks, benefits and reasonable alternatives to the Patient and/or other person responsible. The opportunity was given to ask questions and all questions answered - Extubation Clinical Parameters: Resolution/Stabilization of disease process, Intact Cough/ Gag Reflex, Spontaneous Respirations, Acceptable Vent Settings (FIO2<50%, PEEP<8 , PaO2>75, pH>7.25) Weaning Criteria Met: Yes General Weaning Approaches: Pressure Support Ventilation (PSV) Weaning Patient Condition: Patient has been successfully extubated and assessed Oxygen Therapy: O2 via Venti Mask Patient Tolerated Procedure: Well, No Complications
[2017-04-27] MEDS ORDERED: Albuterol-Ipratrop 3 mg / 0.5 (3 ml) UD INH ONE (12:38)
[2017-04-27] MEDS: Proshield Plus GEL TOP PRN (13:00)
[2017-04-27] MEDS ORDERED: Racepinephrine 2.25% Inhal Soln 0.5 ML UD INH ONE ×2 (13:24)
[2017-04-27] MEDS ORDERED: methylPREDNISolone 125 MG in Sodium Chloride 0.9% 50 ML IVPB ONE (13:32)
--- NOTE | 2017-04-27 14:24 | CP.PCM.PN ---
Subjective - Date & Time of Evaluation Date of Evaluation: 04/27/17 Time of Evaluation: 12:00 - Subjective Subjective: F/U Respiratory Failure Patient just extubated, stridor Objective - Vital Signs/Intake and Output Vital Signs (last 24 hours): Temp Pulse Resp BP Pulse Ox 98.5 F 112 H 19 113/79 100 04/27/17 12:00 04/27/17 14:08 04/27/17 14:00 04/27/17 14:00 04/27/17 14:00 Intake and Output: 04/27/17 04/27/17 06:59 18:59 Intake Total 1700 200 Output Total 2665 1300 Balance -965 -1100 - Medications Medications: Current Medications Acetaminophen (Tylenol 325mg Tab) 650 mg PO Q6 PRN PRN Reason: fever > 100.4 Last Admin: 04/24/17 04:23 Dose: 650 mg Acetaminophen (Tylenol 650 Mg Supp) 650 mg KS Q4 PRN PRN Reason: Fever >100.4 F Last Admin: 04/22/17 16:30 Dose: 650 mg Acetazolamide (Diamox 500 Mg Inj) 500 mg IV Q12 [facility] Last Admin: 04/27/17 09:01 Dose: 500 mg Albuterol/Ipratropium (Duoneb 3 Mg/0.5 Mg (3 Ml) Ud) 3 ml INH RQ4 BRIAN Apixaban (Eliquis) 2.5 mg PO BID BRIAN PRN Reason: Protocol Last Admin: 04/27/17 09:00 Dose: 2.5 mg Aspirin (Aspirin Chewable) 81 mg PO DAILY [facility] Last Admin: 04/27/17 09:00 Dose: 81 mg Atorvastatin Calcium (Lipitor) 40 mg PO HS [facility] Last Admin: 04/26/17 21:34 Dose: 40 mg Bacitracin (Bacitracin Oint) 1 applic TOP BID [facility] Last Admin: 04/27/17 09:06 Dose: 1 applic Dimethicone (Proshield Plus Skin Protectant) 1 applic TOP Q8 PRN PRN Reason: Dry skin Enalapril Maleate (Vasotec) 2.5 mg PO BID [facility] Last Admin: 04/27/17 09:00 Dose: 2.5 mg Furosemide (Lasix) 20 mg IVP Q12 [facility] Last Admin: 04/27/17 09:00 Dose: 20 mg Glipizide (Glucotrol Xl) 10 mg PO BRKDIN [facility] Last Admin: 04/27/17 09:00 Dose: 10 mg Valproate Sodium 500 mg/ (Sodium Chloride) 105 mls @ 105 mls/hr IVPB Q12 BRIAN PRN Reason: As Directed Last Admin: 04/27/17 09:02 Dose: 105 mls/hr Vancomycin HCl 1 gm/ Sodium (Chloride) 250 mls @ 166.667 mls/hr IVPB DAILY@ 2000 [facility] PRN Reason: Protocol Last Admin: 04/26/17 21:16 Dose: 166.667 mls/hr Meropenem 1 gm/ Sodium (Chloride) 100 mls @ 100 mls/hr IVPB Q8 [facility] PRN Reason: Protocol Last Admin: 04/27/17 09:01 Dose: 100 mls/hr Potassium Chloride/Sodium Chloride (Potassium Chl 20 Meq In Ns) 1,000 mls @ 40 mls/hr IV .Q24H [facility] Last Admin: 04/27/17 04:25 Dose: 40 mls/hr Insulin Detemir (Levemir) 28 units SC HS [facility] Last Admin: 04/26/17 21:36 Dose: 28 units Insulin Human Regular (Humulin R) 0 units SC ACHS BRIAN PRN Reason: Protocol Last Admin: 04/27/17 09:06 Dose: 1 units Pantoprazole Sodium (Protonix Inj) 40 mg IVP DAILY [facility] Last Admin: 04/27/17 08:59 Dose: 40 mg Repaglinide (Prandin) 1 mg PO TID [facility] Last Admin: 04/27/17 09:01 Dose: 1 mg Sitagliptin Phosphate (Januvia) 50 mg PO BID [facility] Last Admin: 04/27/17 09:00 Dose: 50 mg - Labs Labs: 04/27/17 04:45 04/27/17 04:45 PT 9.7 Seconds (9.8-13.1) L 04/12/17 21:15 INR 0.9 (0.9-1.2) 04/12/17 21:15 APTT 26.0 Seconds (25.6-37.1) 04/12/17 21:15 - Constitutional Appears: Chronically Ill - Head Exam Head Exam: NORMAL INSPECTION - Eye Exam Eye Exam: PERRL - ENT Exam Additional comments: Extubated ,stridor - Neck Exam Additional comments: stridor - Respiratory Exam Respiratory Exam: Rhonchi (scattered) Additional comments: stridor - Cardiovascular Exam Cardiovascular Exam: REGULAR RHYTHM - GI/Abdominal Exam GI & Abdominal Exam: Soft, Normal Bowel Sounds - Extremities Exam Extremities Exam: Normal Inspection - Back Exam Back Exam: NORMAL INSPECTION - Neurological Exam Neurological Exam: Alert, Awake Additional comments: Response to verbal , tactil stimuli. R side - Skin Skin Exam: Warm Assessment and Plan (1) Respiratory failure Status: Acute (2) Aspiration pneumonia Status: Acute (3) CVA (cerebral vascular accident) Status: Acute - Assessment and Plan (Free Text) Plan: Stridor after extubation , had Racemic epi, Solu Medrol , DuoNeb , continue DuoNeb , BIPAP , f/u CXR ICU Time: 38 min.
--- NOTE | 2017-04-27 14:39 | CP.PCM.PN ---
Subjective - Date & Time of Evaluation Date of Evaluation: 04/27/17 Time of Evaluation: 14:39 - Subjective Subjective: ID Note- Pt. seen and examined today in ICU. pt. extubated earlier today and is on BIPAP now. awake and does respond to some verbal commands. new onset diarrhea since last night . has rectal tube in place now with loose green stool . Objective - Vital Signs/Intake and Output Vital Signs (last 24 hours): Temp Pulse Resp BP Pulse Ox 98.5 F 112 H 19 113/79 100 04/27/17 12:00 04/27/17 14:08 04/27/17 14:00 04/27/17 14:00 04/27/17 14:00 Intake and Output: 04/27/17 04/27/17 06:59 18:59 Intake Total 1700 200 Output Total 2665 1300 Balance -965 -1100 - Medications Medications: Current Medications Acetaminophen (Tylenol 325mg Tab) 650 mg PO Q6 PRN PRN Reason: fever > 100.4 Last Admin: 04/24/17 04:23 Dose: 650 mg Acetaminophen (Tylenol 650 Mg Supp) 650 mg MT Q4 PRN PRN Reason: Fever >100.4 F Last Admin: 04/22/17 16:30 Dose: 650 mg Acetazolamide (Diamox 500 Mg Inj) 500 mg IV Q12 [facility] Last Admin: 04/27/17 09:01 Dose: 500 mg Albuterol/Ipratropium (Duoneb 3 Mg/0.5 Mg (3 Ml) Ud) 3 ml INH RQ4 [facility] Apixaban (Eliquis) 2.5 mg PO BID [facility] PRN Reason: Protocol Last Admin: 04/27/17 09:00 Dose: 2.5 mg Aspirin (Aspirin Chewable) 81 mg PO DAILY [facility] Last Admin: 04/27/17 09:00 Dose: 81 mg Atorvastatin Calcium (Lipitor) 40 mg PO HS [facility] Last Admin: 04/26/17 21:34 Dose: 40 mg Bacitracin (Bacitracin Oint) 1 applic TOP BID [facility] Last Admin: 04/27/17 09:06 Dose: 1 applic Dimethicone (Proshield Plus Skin Protectant) 1 applic TOP Q8 PRN PRN Reason: Dry skin Enalapril Maleate (Vasotec) 2.5 mg PO BID [facility] Last Admin: 04/27/17 09:00 Dose: 2.5 mg Furosemide (Lasix) 20 mg IVP Q12 [facility] Last Admin: 04/27/17 09:00 Dose: 20 mg Glipizide (Glucotrol Xl) 10 mg PO BRKDIN [facility] Last Admin: 04/27/17 09:00 Dose: 10 mg Valproate Sodium 500 mg/ (Sodium Chloride) 105 mls @ 105 mls/hr IVPB Q12 [facility] PRN Reason: As Directed Last Admin: 04/27/17 09:02 Dose: 105 mls/hr Vancomycin HCl 1 gm/ Sodium (Chloride) 250 mls @ 166.667 mls/hr IVPB DAILY@ 2000 [facility] PRN Reason: Protocol Last Admin: 04/26/17 21:16 Dose: 166.667 mls/hr Meropenem 1 gm/ Sodium (Chloride) 100 mls @ 100 mls/hr IVPB Q8 [facility] PRN Reason: Protocol Last Admin: 04/27/17 09:01 Dose: 100 mls/hr Potassium Chloride/Sodium Chloride (Potassium Chl 20 Meq In Ns) 1,000 mls @ 40 mls/hr IV .Q24H [facility] Last Admin: 04/27/17 04:25 Dose: 40 mls/hr Insulin Detemir (Levemir) 28 units SC HS [facility] Last Admin: 04/26/17 21:36 Dose: 28 units Insulin Human Regular (Humulin R) 0 units SC ACHS [facility] PRN Reason: Protocol Last Admin: 04/27/17 09:06 Dose: 1 units Pantoprazole Sodium (Protonix Inj) 40 mg IVP DAILY [facility] Last Admin: 04/27/17 08:59 Dose: 40 mg Repaglinide (Prandin) 1 mg PO TID [facility] Last Admin: 04/27/17 09:01 Dose: 1 mg Sitagliptin Phosphate (Januvia) 50 mg PO BID [facility] Last Admin: 04/27/17 09:00 Dose: 50 mg - Labs Labs: - Additional Findings Additional findings: - Head Exam Head Exam: ATRAUMATIC - ENT Exam Additional comments: extubated is on BIPAP machine - Neck Exam Neck exam: Positive for: Full Rom Additional comments: supple - Respiratory Exam Additional comments: breath sounds heard b/l no wheezing - Cardiovascular Exam Cardiovascular Exam: RRR, +S1, +S2 - GI/Abdominal Exam GI & Abdominal Exam: Normal Bowel Sounds, Soft Additional comments: ND, NT - Extremities Exam Additional comments: no edema b/l LE, no ulcerations - Neurological Exam Additional comments: awake and follows some commands Laboratory Results - last 72 hr 04/24/17 04/24/17 04/25/17 18:00 21:22 04:45 WBC 6.0 RBC 4.05 Hgb 11.5 L Hct 35.7 MCV 88.3 MCH 28.4 MCHC 32.1 L RDW 15.0 H Plt Count 161 pCO2 pO2 HCO3 ABG pH ABG Total CO2 ABG O2 Saturation ABG O2 Content ABG Base Excess ABG Hemoglobin ABG Carboxyhemoglobin POC ABG HHb (Measured) ABG Methemoglobin ABG O2 Capacity Boaz Test ABG Potassium A-a O2 Difference Hgb O2 Saturation Glucose Lactate Vent Mode Mechanical Rate FiO2 Tidal Volume PEEP Sodium Potassium Chloride Carbon Dioxide Anion Gap BUN Creatinine Est GFR ( Amer) Est GFR (Non-Af Amer) POC Glucose (mg/dL) 209 H Random Glucose Calcium Total Bilirubin AST ALT Alkaline Phosphatase Total Protein Albumin Globulin Albumin/Globulin Ratio Arterial Blood Potassium Vancomycin Trough 5.7 04/25/17 04/25/17 04/25/17 04:45 04:45 11:20 WBC RBC Hgb Hct MCV MCH MCHC RDW Plt Count pCO2 42 pO2 161 H HCO3 31.1 H ABG pH 7.49 H ABG Total CO2 33.3 H ABG O2 Saturation 99.3 H ABG O2 Content 16.6 ABG Base Excess 7.9 H ABG Hemoglobin 11.9 ABG Carboxyhemoglobin 1.1 POC ABG HHb (Measured) 0.7 ABG Methemoglobin 1.0 ABG O2 Capacity 16.7 Boaz Test Yes ABG Potassium A-a O2 Difference 357.0 Hgb O2 Saturation 97.3 Glucose Lactate Vent Mode A/c Mechanical Rate 12 FiO2 80.0 Tidal Volume 500 PEEP 5 Sodium 147 Potassium 3.7 Chloride 108 H Carbon Dioxide 32 H Anion Gap 11 BUN 26 H Creatinine 0.6 L Est GFR ( Amer) > 60 Est GFR (Non-Af Amer) > 60 POC Glucose (mg/dL) 177 H Random Glucose 261 H Calcium 8.1 L Total Bilirubin 0.3 AST 21 ALT 22 Alkaline Phosphatase 73 Total Protein 6.3 Albumin 2.7 L Globulin 3.7 Albumin/Globulin Ratio 0.7 L Arterial Blood Potassium Vancomycin Trough 04/25/17 04/25/17 04/26/17 16:12 21:58 04:15 WBC RBC Hgb Hct MCV MCH MCHC RDW Plt Count pCO2 38 pO2 113 H HCO3 30.2 H ABG pH 7.51 H ABG Total CO2 31.5 H ABG O2 Saturation 99.2 H ABG O2 Content 15.1 ABG Base Excess 6.8 H ABG Hemoglobin 11.0 L ABG Carboxyhemoglobin 1.4 POC ABG HHb (Measured) 0.8 ABG Methemoglobin 1.3 ABG O2 Capacity 15.2 L Boaz Test Yes ABG Potassium A-a O2 Difference 267.0 Hgb O2 Saturation 96.5 Glucose Lactate Vent Mode A/c Mechanical Rate 12 FiO2 60.0 Tidal Volume 500 PEEP 5 Sodium Potassium Chloride Carbon Dioxide Anion Gap BUN Creatinine Est GFR ( Amer) Est GFR (Non-Af Amer) POC Glucose (mg/dL) 137 H 142 H Random Glucose Calcium Total Bilirubin AST ALT Alkaline Phosphatase Total Protein Albumin Globulin Albumin/Globulin Ratio Arterial Blood Potassium Vancomycin Trough 04/26/17 04/26/17 04/26/17 04:30 04:30 06:07 WBC 9.1 D RBC 4.16 Hgb 11.8 L Hct 37.1 MCV 89.3 MCH 28.3 MCHC 31.7 L RDW 14.6 H Plt Count 133 pCO2 pO2 HCO3 ABG pH ABG Total CO2 ABG O2 Saturation ABG O2 Content ABG Base Excess ABG Hemoglobin ABG Carboxyhemoglobin POC ABG HHb (Measured) ABG Methemoglobin ABG O2 Capacity Boaz Test ABG Potassium A-a O2 Difference Hgb O2 Saturation Glucose Lactate Vent Mode Mechanical Rate FiO2 Tidal Volume PEEP Sodium 146 Potassium 3.5 L Chloride 107 Carbon Dioxide 32 H Anion Gap 11 BUN 20 H Creatinine 0.4 L Est GFR ( Amer) > 60 Est GFR (Non-Af Amer) > 60 POC Glucose (mg/dL) 138 H Random Glucose 135 H Calcium 8.2 L Total Bilirubin AST ALT Alkaline Phosphatase Total Protein Albumin Globulin Albumin/Globulin Ratio Arterial Blood Potassium Vancomycin Trough 04/26/17 04/26/17 04/26/17 11:14 16:26 21:32 WBC RBC Hgb Hct MCV MCH MCHC RDW Plt Count pCO2 pO2 HCO3 ABG pH ABG Total CO2 ABG O2 Saturation ABG O2 Content ABG Base Excess ABG Hemoglobin ABG Carboxyhemoglobin POC ABG HHb (Measured) ABG Methemoglobin ABG O2 Capacity Boaz Test ABG Potassium A-a O2 Difference Hgb O2 Saturation Glucose Lactate Vent Mode Mechanical Rate FiO2 Tidal Volume PEEP Sodium Potassium Chloride Carbon Dioxide Anion Gap BUN Creatinine Est GFR ( Amer) Est GFR (Non-Af Amer) POC Glucose (mg/dL) 121 H 140 H 111 H Random Glucose Calcium Total Bilirubin AST ALT Alkaline Phosphatase Total Protein Albumin Globulin Albumin/Globulin Ratio Arterial Blood Potassium Vancomycin Trough 04/27/17 04/27/17 04/27/17 04:43 04:45 04:45 WBC 11.5 H RBC 4.12 Hgb 11.6 L Hct 36.6 MCV 88.9 MCH 28.1 MCHC 31.7 L RDW 14.6 H Plt Count 156 pCO2 pO2 HCO3 ABG pH ABG Total CO2 ABG O2 Saturation ABG O2 Content ABG Base Excess ABG Hemoglobin ABG Carboxyhemoglobin POC ABG HHb (Measured) ABG Methemoglobin ABG O2 Capacity Boaz Test ABG Potassium A-a O2 Difference Hgb O2 Saturation Glucose Lactate Vent Mode Mechanical Rate FiO2 Tidal Volume PEEP Sodium 142 Potassium 3.4 L Chloride 106 Carbon Dioxide 29 Anion Gap 10 BUN 10 Creatinine 0.5 L Est GFR ( Amer) > 60 Est GFR (Non-Af Amer) > 60 POC Glucose (mg/dL) 152 H Random Glucose 184 H Calcium 8.5 Total Bilirubin 0.4 AST 20 ALT 24 Alkaline Phosphatase 76 Total Protein 6.8 Albumin 2.9 L Globulin 3.9 Albumin/Globulin Ratio 0.7 L Arterial Blood Potassium Vancomycin Trough 04/27/17 04/27/17 04/27/17 04:56 11:37 15:42 WBC RBC Hgb Hct MCV MCH MCHC RDW Plt Count pCO2 37 pO2 77 L HCO3 26.8 ABG pH 7.46 H ABG Total CO2 27.4 ABG O2 Saturation 97.6 ABG O2 Content ABG Base Excess 2.5 ABG Hemoglobin ABG Carboxyhemoglobin POC ABG HHb (Measured) ABG Methemoglobin ABG O2 Capacity Boaz Test Yes ABG Potassium 3.2 L A-a O2 Difference 162.0 Hgb O2 Saturation Glucose 185 H Lactate 0.9 Vent Mode A/c Mechanical Rate 12 FiO2 40.0 Tidal Volume 500 PEEP 5 Sodium 138.0 Potassium Chloride 107.0 Carbon Dioxide Anion Gap BUN Creatinine Est GFR ( Amer) Est GFR (Non-Af Amer) POC Glucose (mg/dL) 195 H 258 H Random Glucose Calcium Total Bilirubin AST ALT Alkaline Phosphatase Total Protein Albumin Globulin Albumin/Globulin Ratio Arterial Blood Potassium 3.2 L Vancomycin Trough Microbiology 04/21/17 21:05 Blood-Venous Blood Culture - Final NO GROWTH AFTER 5 DAYS 04/21/17 21:05 Blood-Venous Gram Stain - Final TEST NOT PERFORMED 04/21/17 20:55 Blood-Venous Blood Culture - Final NO GROWTH AFTER 5 DAYS 04/21/17 20:55 Blood-Venous Gram Stain - Final TEST NOT PERFORMED 04/22/17 19:03 Blood-Venous Blood Culture - Preliminary NO GROWTH AFTER 4 DAYS 04/22/17 19:03 Blood-Venous Blood Culture - Preliminary NO GROWTH AFTER 4 DAYS 04/21/17 05:46 Trachasp Gram Stain - Final 04/21/17 05:46 Trachasp Sputum Culture - Final NORMAL ORAL LEIDA 04/21/17 05:45 Urine,Ndiaye Urine Culture - Final Yeast Species 04/20/17 07:34 Naris MRSA Culture (Admit) - Final MRSA NOT DETECTED 04/20/17 07:55 Urine,Clean Catch Urine Culture - Final Escherichia Coli 04/15/17 06:14 Blood-Venous Blood Culture - Final NO GROWTH AFTER 5 DAYS 04/15/17 06:14 Blood-Venous Gram Stain - Final TEST NOT PERFORMED 04/15/17 06:14 Blood-Venous Blood Culture - Final NO GROWTH AFTER 5 DAYS 04/15/17 06:14 Blood-Venous Gram Stain - Final TEST NOT PERFORMED 04/16/17 08:25 Naris MRSA Culture (Admit) - Final MRSA NOT DETECTED 04/12/17 21:15 Urine,Clean Catch Urine Culture - Final > 100,000 CFU/ML. MULTIPLE SPECIES. SUGGEST REPEAT SPECIMEM. Accession No. : [id number] Patient Name / ID : SAFIA LIMON / [id number] Exam Date : 04/27/2017 05:06:33 ( Approved ) Study Comment : Sex / Age : F / 72Y Creator : Andrei Kowalski MD Dictator : Andrei Kowalski MD Blade Changer : Aerial Tram Operator : Andrei Kowalski MD Approver2 : Report Date : 04/27/2017 14:58:29 My Comment : HISTORY: Intubated. COMPARISON: Multiple serial examinations preceding the most recent study: April 26, 2017. FINDINGS: LUNGS: No active pulmonary disease. PLEURA: No significant pleural effusion identified, no pneumothorax apparent. CARDIOVASCULAR: No radiographic findings to suggest acute or significant cardiovascular disease. OSSEOUS STRUCTURES: No significant abnormalities. VISUALIZED UPPER ABDOMEN: Normal. OTHER FINDINGS: Stable position of support apparatus including nasogastric tube and endotracheal tube. IMPRESSION: No active pulmonary disease. No interval change. Assessment and Plan (1) CVA (cerebral vascular accident) Status: Acute (2) Type 2 diabetes mellitus with pressure callus Status: Acute (3) Aspiration pneumonia Status: Acute (4) UTI (urinary tract infection) Status: Acute - Assessment and Plan (Free Text) Assessment: A/P- 72 year old female with DM Ii, HTN was admitted with mental status change and was found to have acute ischemic stroke but was doing better and was transferred to step down unit, however, had RADIATION ONCOLOGY NURSE and for resp distress and is s/ p post intubation . extubated afebrile last 48 hours minimal rise in wbc today blood cx- neg x 4 UA- neg urine cx -e.coli pansensitive influenza- negative new diarrhea Plan- has completed 7 days of IV meropenem today. advise to d/c meropenm today. check stool c.diff . monitor asp precautions. ICU time spent 45 min.
--- NOTE | 2017-04-27 15:05 | RAD ---
HISTORY: Intubated. COMPARISON: Multiple serial examinations preceding the most recent study: April 26, 2017. FINDINGS: LUNGS: No active pulmonary disease. PLEURA: No significant pleural effusion identified, no pneumothorax apparent. CARDIOVASCULAR: No radiographic findings to suggest acute or significant cardiovascular disease. OSSEOUS STRUCTURES: No significant abnormalities. VISUALIZED UPPER ABDOMEN: Normal. OTHER FINDINGS: Stable position of support apparatus including nasogastric tube and endotracheal tube. IMPRESSION: No active pulmonary disease. No interval change.
[2017-04-27] MEDS: Albuterol-Ipratrop 3 mg / 0.5 (3 ml) UD INH SCH ×2 (15:46→19:30)
--- NOTE | 2017-04-27 21:34 | CP.PCM.PN ---
Subjective - Date & Time of Evaluation Date of Evaluation: 04/27/17 Time of Evaluation: 16:00 - Subjective Subjective: Patient was seen and examined bedside in ICU .on MV PRVC AC mode in Am with 12/ 500/5/40% with ABG 37/77/26/7.4 Off propofol drip since yesterday, more awake , alert ,trying to communicate, following simple commands , moves the right arm and leg and left lower extremity. No movement to LUE BP 158/70 HR 91 , afebrile CXR showed no active disease Weaning protocol started as per organ assembler and patient was extubated and placed initially on NRM FIO2 50 % Stridor noted after extubation , solumedrol 125 mg , racemic epi INH and Duonebs given and placed on BIPAP 12/5 RR 16 FIO2 50 % With weak cough reflex and respiratory secretions WBC 11 K HGb 11 CO229 K 3.4 I/O 3010/4565 With episodes of greenish diarrhea. Flexiseal placed due to skin excoriation Objective - Vital Signs/Intake and Output Vital Signs (last 24 hours): Temp Pulse Resp BP Pulse Ox 98.9 F 104 H 25 H 148/74 98 04/27/17 19:43 04/27/17 19:50 04/27/17 19:43 04/27/17 19:43 04/27/17 19:43 Intake and Output: 04/27/17 04/28/17 18:59 06:59 Intake Total 780 Output Total 2900 Balance -2120 - Medications Medications: Current Medications Acetaminophen (Tylenol 325mg Tab) 650 mg PO Q6 PRN PRN Reason: fever > 100.4 Last Admin: 04/24/17 04:23 Dose: 650 mg Acetaminophen (Tylenol 650 Mg Supp) 650 mg CA Q4 PRN PRN Reason: Fever >100.4 F Last Admin: 04/22/17 16:30 Dose: 650 mg Acetazolamide (Diamox 500 Mg Inj) 500 mg IV Q12 [facility] Last Admin: 04/27/17 09:01 Dose: 500 mg Albuterol/Ipratropium (Duoneb 3 Mg/0.5 Mg (3 Ml) Ud) 3 ml INH RQ4 [facility] Last Admin: 04/27/17 19:30 Dose: 3 ml Apixaban (Eliquis) 2.5 mg PO BID [facility] PRN Reason: Protocol Last Admin: 04/27/17 17:00 Dose: 2.5 mg Aspirin (Aspirin Chewable) 81 mg PO DAILY [facility] Last Admin: 04/27/17 09:00 Dose: 81 mg Atorvastatin Calcium (Lipitor) 40 mg PO HS [facility] Last Admin: 04/26/17 21:34 Dose: 40 mg Bacitracin (Bacitracin Oint) 1 applic TOP BID [facility] Last Admin: 04/27/17 17:09 Dose: 1 applic Dimethicone (Proshield Plus Skin Protectant) 1 applic TOP Q8 PRN PRN Reason: Dry skin Last Admin: 04/27/17 13:00 Dose: 1 applic Enalapril Maleate (Vasotec) 2.5 mg PO BID [facility] Last Admin: 04/27/17 17:04 Dose: Not Given Furosemide (Lasix) 20 mg IVP Q12 [facility] Last Admin: 04/27/17 09:00 Dose: 20 mg Glipizide (Glucotrol Xl) 10 mg PO BRKDIN [facility] Last Admin: 04/27/17 17:09 Dose: Not Given Valproate Sodium 500 mg/ (Sodium Chloride) 105 mls @ 105 mls/hr IVPB Q12 [facility]AN PRN Reason: As Directed Last Admin: 04/27/17 09:02 Dose: 105 mls/hr Potassium Chloride/Sodium Chloride (Potassium Chl 20 Meq In Ns) 1,000 mls @ 40 mls/hr IV .Q24H [facility] Last Admin: 04/27/17 17:01 Dose: Not Given Insulin Detemir (Levemir) 28 units SC HS [facility] Last Admin: 04/26/17 21:36 Dose: 28 units Insulin Human Regular (Humulin R) 0 units SC ACHS [facility] PRN Reason: Protocol Last Admin: 04/27/17 17:09 Dose: 3 units Pantoprazole Sodium (Protonix Inj) 40 mg IVP DAILY [facility] Last Admin: 04/27/17 08:59 Dose: 40 mg Repaglinide (Prandin) 1 mg PO TID [facility] Last Admin: 04/27/17 17:04 Dose: Not Given Sitagliptin Phosphate (Januvia) 50 mg PO BID [facility] Last Admin: 04/27/17 17:08 Dose: Not Given - Labs Labs: 04/27/17 04:45 04/27/17 18:27 PT 9.7 Seconds (9.8-13.1) L 04/12/17 21:15 INR 0.9 (0.9-1.2) 04/12/17 21:15 APTT 26.0 Seconds (25.6-37.1) 04/12/17 21:15 - Constitutional Appears: No Acute Distress, Confused, Other (extubated , awake , alert , follows commands) - Head Exam Head Exam: ATRAUMATIC, NORMOCEPHALIC - Eye Exam Eye Exam: PERRL - ENT Exam ENT Exam: Mucous Membranes Dry - Neck Exam Neck Exam: Normal Inspection - Respiratory Exam Respiratory Exam: Rhonchi. absent: Accessory Muscle Use, Prolonged Expiratory Phase, Wheezes, Respiratory Distress - Cardiovascular Exam Cardiovascular Exam: Tachycardia, +S1, +S2. absent: JVD - GI/Abdominal Exam GI & Abdominal Exam: Soft, Normal Bowel Sounds. absent: Distended, Guarding, Tenderness, Rebound - Rectal Exam Rectal Exam: Deferred - Extremities Exam Extremities Exam: Normal Capillary Refill, Normal Inspection. absent: Calf Tenderness, Pedal Edema - Neurological Exam Neurological Exam: Alert, Awake Additional comments: follows simple commands Moves RUE ,RLE and LLE - Psychiatric Exam Psychiatric exam: Anxious, Flat Affect - Skin Skin Exam: Dry, Pallor, Warm Additional comments: fahad rectal moisture related skin breakdown Assessment and Plan - Assessment and Plan (Free Text) Assessment: 72 y/o F PMH DM, HTN, HLD brought to the ED with acutely worsening alteration of mental status and not as verbal . She presented with left facial droop and and some expressive aphasia.CT head was neg for acute CVA or bleed. Patient glucose was elevated 563. She was admitted initially in telemetry for further stroke work up and diabetes control . Neuro consulted.She was started on ASA, Statin, plavix,lovenox , Insulin and IVF .Her BP initially was kept elevated to allow permissive hypertension. MRI head showed acute stroke in right frontal lobe white matter 2/2 While in telemetry , the patient developed worsening BAILON and some left arm weakness. Patient became confused , agitated , restless ,not following any commands. She also started to have fever. Repeat MRI of the Brain : showed acute/ subacute stroke in right mcleod radiata and centrum ovale She was then transferred to ICU for close monitoring She continued to spike fevers for > 48 hours with no obvious source of infection and normal WBC count. All work up sent including CXR, UA,urine cx, blood cx were negative for infection so fever thought to be of central origin and no antibiotics were started 2/ While in Tele , CARAMEL COLORING OPERATOR called for stridor and respiratory distress . She developed acute hypercapnic respiratory failure was intubated and transferred to ICU. CXR : new infiltrate, poss Asp PNA Today extubated after weaning trial and placed on NRM. placedon BIpap and treated for striodor with solumedrol IV, Duonebs and Racemic epi INH With weak cough reflex , unable to expectorate 1. Acute hypercapnic respiratory failure Most likely secondary to aspiration pneumonia and patient's inability to handle secretions due to AMS/ CVA was intubated on MV PRVC AC mode 12/500/5/40% with ABG 37/77/26/7.4 Off propofol drip since yesterday, more awake, alert ,trying to communicate, following simple commands , moves the right arm and leg and left lower extremity. No movement to LUE CXR showed no active disease Metabolic alkalosis improved since yesterday and patient diuresed well with lasix and diamox given yesterday ( CO2 29 ) Weaning protocol started as per organ assembler and patient was extubated and placed initially on NRM FIO2 50 % Stridor noted after extubation , solumedrol 125 mg , racemic epi INH and Duonebs given and placed on BIPAP 12/5 RR 16 FIO2 50 % With weak cough reflex and respiratory secretions Keep HOB elevated continue Duonebs RTC Monitor closely Repeat ABG and CXR in AM Keep NPO . Speech eval discontinued antibiotics since patient has been afebrile 2. Progressive Acute ischemic stroke with AMS / lethargy worsening mental status, unable to handle secretions, aspirating , with acute respiratory failure requiring intubation initial presentation of patient was : acute stroke to right frontal lobe that progressed to right mcleod radiata and centrum semiovale stroke Continue ASA, statin, glycemic control, eliquis( empirically started by neuro ) Tylenol PRN for fever on Depakote 500 mg IV Q12 Cardio consulted for possible JUSTYNA - on hold due to pt's medical condition ( Dr Serrato wants pt to do JUSTYNA in [place] ) Pt empiricaly started on Eliquis Started BP control with low dose ACEI Enalapril 2.[address] head showed stable stroke s/p extubation today Keep NPO until new speech eval by speech therapist Start PT / OT 3. Suspected aspiration Pneumonia/ pneumonitis initially with CXR findings of new right lobe infiltrate prior to intubation and large secretions suctioned during intubation Received IV meropenem and Vanco-- d/c ID and pulmonary were Consult Blood c/s : neg so far Repeat CXR today showed no active disease 4 .Uncontrolled DM with hyperglycemia Continue accuchecks, insulin coverage Increased Levemir to 28 units q hs, cont Glucotrol, prandin , Januvia Hgb A1c 16 NPO until speech eval post exctubation 5. Hypertension permissive hypertension while stroke was evolving Started enalapril Low dose 6. Dyslipidemia c/w Atorvastatin 40 mg PO 7. Diabetic foot calluses podiatry consulted and following Doppler US of LE - good arterial flow 8. Diarrhea check c.difff 9 DVT ppx on eliquis
[2017-04-27] MEDS: Insulin Detemir 100 Units/ml Inj SC SCH (21:55)
[2017-04-27 22:39] LABS: ABG ALLEN TEST YES; ARTERIAL BLOOD GAS HCO3 25.3 mmol/L (21-28); ARTERIAL BLOOD GAS HEMOGLOBIN 13.4 g/dL (11.7-17.4); ARTERIAL BLOOD GAS O2 CAPACITY 18.4 mL/dL (16-24); ARTERIAL BLOOD GAS O2 CONTENT 18.1 ML/dL (15-23); ARTERIAL BLOOD GAS O2 SAT 98.3 % (95-98); ARTERIAL BLOOD GAS PCO2 36 mm/Hg (35-45); ARTERIAL BLOOD GAS PH 7.44 (7.35-7.45); ARTERIAL BLOOD GAS PO2 85 mm/Hg (80-100); ARTERIAL BLOOD GAS TCO2 25.6 mmol/L (22-28)
[2017-04-28] MEDS: Albuterol-Ipratrop 3 mg / 0.5 (3 ml) UD INH SCH ×5 (00:04→19:36)
[2017-04-28 05:19] LABS: ABG ALLEN TEST YES; ARTERIAL BLOOD GAS HCO3 25.4 mmol/L (21-28); ARTERIAL BLOOD GAS HEMOGLOBIN 13.4 g/dL (11.7-17.4); ARTERIAL BLOOD GAS O2 CAPACITY 18.3 mL/dL (16-24); ARTERIAL BLOOD GAS O2 CONTENT 17.8 ML/dL (15-23); ARTERIAL BLOOD GAS O2 SAT 97.2 % (95-98); ARTERIAL BLOOD GAS PCO2 35 mm/Hg (35-45); ARTERIAL BLOOD GAS PH 7.45 (7.35-7.45); ARTERIAL BLOOD GAS PO2 73 mm/Hg (80-100); ARTERIAL BLOOD GAS TCO2 25.4 mmol/L (22-28)
[2017-04-28 05:41] LABS: BASO # 0.1 K/uL (0.0-0.2); BASO % 0.5 % (0.0-2.0); LYMPH # 0.8 K/uL (1.0-4.3); LYMPH % 5.7 % (20.0-40.0); MEAN CORPUSCULAR HEMOGLOBIN 27.8 pg (27.0-31.0); MEAN CORPUSCULAR HGB CONC 31.3 g/dL (33.0-37.0); MEAN PLATELET VOLUME 11.9 fl (7.2-11.7); MONO # 0.4 K/uL (0.0-0.8); MONO % 3.2 % (0.0-10.0); NEUT # 12.2 K/uL (1.8-7.0); NEUT % 90.6 % (50.0-75.0); NRBC % 0.1 % (0.0-0.0); PLATELET COUNT 235 K/uL (130-400); RBC 4.66 Mil/uL (3.80-5.20); RED CELL DISTRIBUTION WIDTH 14.7 % (11.5-14.5); WHITE BLOOD COUNT 13.5 K/uL (4.8-10.8)
[2017-04-28 05:53] LABS: BLOOD UREA NITROGEN 17 mg/dl (7-17); CALCIUM 9.4 mg/dL (8.4-10.2); GFR AFRICAN-AMERICAN > 60; GFR NON-AFRICAN AMERICAN > 60
[2017-04-28] MEDS ORDERED: Sodium Chloride 0.9% 500 ML IV SCH (07:45)
--- NOTE | 2017-04-28 08:51 | CP.PCM.PN ---
Subjective - Date & Time of Evaluation Date of Evaluation: 04/28/17 Time of Evaluation: 08:48 - Subjective Subjective: Ms. Black was seen and examined at the bedside in ICU. She is awake with high flow oxygen with settings of fio2 50%, 30 liters. pulse ox 96%. She was not able to tolerate bipap last night. She remains non-verbal but follows simple commands such as moving her extremities and opening her mouth. She is able to move her left side extremities but weaker in comparison to the right. She has a flexiseal due to loose bowel movement. She is schedule for a swallowing evaluation today. There was no untoward events overnight. Objective - Vital Signs/Intake and Output Vital Signs (last 24 hours): Temp Pulse Resp BP Pulse Ox 98.7 F 119 H 22 151/80 H 94 L 04/28/17 00:00 04/28/17 06:00 04/28/17 08:26 04/28/17 06:00 04/28/17 06:00 Intake and Output: 04/28/17 04/28/17 06:59 18:59 Intake Total 150 Output Total 1550 Balance -1400 - Medications Medications: Current Medications Acetaminophen (Tylenol 325mg Tab) 650 mg PO Q6 PRN PRN Reason: fever > 100.4 Last Admin: 04/24/17 04:23 Dose: 650 mg Acetaminophen (Tylenol 650 Mg Supp) 650 mg OR Q4 PRN PRN Reason: Fever >100.4 F Last Admin: 04/22/17 16:30 Dose: 650 mg Albuterol/Ipratropium (Duoneb 3 Mg/0.5 Mg (3 Ml) Ud) [address] [facility] Last Admin: 04/28/17 08:25 Dose: 3 ml Apixaban (Eliquis) 2.5 mg PO BID BRIAN PRN Reason: Protocol Last Admin: 04/27/17 17:00 Dose: 2.5 mg Aspirin (Aspirin Chewable) [address] [facility] Last Admin: 04/27/17 09:00 Dose: 81 mg Atorvastatin Calcium (Lipitor) [address] [facility] Last Admin: 04/27/17 21:57 Dose: Not Given Bacitracin (Bacitracin Oint) [address] [facility] Last Admin: 04/27/17 17:09 Dose: 1 applic Dimethicone (Proshield Plus Skin Protectant) 1 applic TOP Q8 PRN PRN Reason: Dry skin Last Admin: 04/27/17 13:00 Dose: 1 applic Enalapril Maleate (Vasotec) 2.[address] [facility] Last Admin: 04/27/17 17:04 Dose: Not Given Glipizide (Glucotrol Xl) [address] [facility] Last Admin: 04/27/17 17:09 Dose: Not Given Valproate Sodium 500 mg/ (Sodium Chloride) 105 mls @ 105 mls/hr IVPB Q12 BRIAN PRN Reason: As Directed Last Admin: 04/27/17 21:58 Dose: 105 mls/hr Potassium Chloride/Sodium Chloride (Potassium Chl 20 Meq In Ns) 1,000 mls @ 40 mls/hr IV .Q24H [facility] Last Admin: 04/27/17 17:01 Dose: Not Given Insulin Detemir (Levemir) [address] [facility] Last Admin: 04/27/17 21:55 Dose: 28 units Insulin Human Regular (Humulin R) [address] [facility] PRN Reason: Protocol Last Admin: 04/27/17 21:30 Dose: Not Given Pantoprazole Sodium (Protonix Inj) [address] [facility] Last Admin: 04/27/17 08:59 Dose: 40 mg Repaglinide (Prandin) [address] [facility] Last Admin: 04/27/17 17:04 Dose: Not Given Sitagliptin Phosphate (Januvia) [address] [facility] Last Admin: 04/27/17 17:08 Dose: Not Given - Labs Labs: 04/28/17 04:25 04/28/17 04:25 PT 9.7 Seconds (9.8-13.1) L 04/12/17 21:15 INR 0.9 (0.9-1.2) 04/12/17 21:15 APTT 26.0 Seconds (25.6-37.1) 04/12/17 21:15 - Constitutional Appears: No Acute Distress - Head Exam Head Exam: NORMAL INSPECTION - Rectal Exam Additional comments: loose brown stool. - Neurological Exam Neurological Exam: Awake Neuro motor strength exam: Left Upper Extremity: 2/1, Right Upper Extremity: 4, Left Lower Extremity: 2/1, Right Lower Extremity: 3 Additional comments: Neurological improved from previous examination, able to move the left upper extremity in comparison from yesterday. Assessment and Plan (1) CVA (cerebral vascular accident) Assessment & Plan: Case discussed with Dr. Alberts, continue all current medical, physical, occupational, and speech therapies. Recommend NGT placement for medication and feeding administration if she failed swallowing evaluation. Status: Acute
[2017-04-28] MEDS: Bacitracin OINT 15GM TOP SCH ×2 (08:57→16:44)
[2017-04-28] MEDS: Valproate 500 MG in Sodium Chloride 0.9% 100 ML IVPB SCH ×2 (08:58→20:25)
[2017-04-28] MEDS: GlipiZIDE 10 mg SR Tab PO SCH ×2 (08:58→16:44)
--- NOTE | 2017-04-28 10:15 | CP.CCUPN ---
<Sharyn Hidalgo - Last Filed: 04/28/17 15:13> CCU Subjective - Physician Review Subjective (Free Text): 04/28/17 This is a 72 y/o F with PMHx of HTN, HLD, DM, CAD and bilateral hallus ulceration. Patient was brought in via EMS to ER on 04/12 for evaluation of altered mental status, onset a few months ago. Patient was admitted to the telemetry unit with acute cerebral vascular accident. On 04/17 patient developed change in mental status/left upper extremity weakness, CODE STROKE was called and was transferred to ICU. On 04/20 patient was transferred back to Telemetry unit. Patient was seen and examined with fashion director attending during ICU round this morning. Patient seen awake, open eyes, answering yes/no questions moving her head. Patient was successfully extubated on 04/27/17 placed on BIPAP, and then switched to High flow at 30 LPM, and FiO2 50 %. Patient has had nonbloody diarrheas, C-diff was tested and negative. For swallow eval this morning./ Critical Care Time Spent (in minutes): 35 CCU Objective - Vital Signs / Intake & Output Vital Signs (Last 4 hours): Vital Signs Temp Pulse Resp BP Pulse Ox 04/28/17 08:26 22 04/28/17 08:00 98.5 F 109 H 22 158/87 H 95 Intake and Output (Last 8hrs): Intake & Output 04/27/17 04/28/17 04/28/17 22:59 06:59 14:59 Intake Total 690 40 100 Output Total 1600 1550 Balance -910 -1510 100 Weight 170 lb Intake: IV 170 40 Intake, Piggyback 400 100 Tube Feeding 120 Output: Urine 1600 1500 Urethral (Ndiaye) 1600 1500 Stool 50 - Physical Exam Head: Positive for: Atraumatic, Normocephalic Pupils: Positive for: PERRL Mouth: Positive for: Dry Respiratory/Chest: Positive for: Clear to Auscultation, Rhonchi (diffuse and bilateral). Negative for: Respiratory Distress, Wheezes, Decreased Breath Sounds, Rales Cardiovascular: Positive for: Regular Rate and Rhythm, Normal S1, S2, Tachycardic Abdomen: Positive for: Normal Bowel Sounds. Negative for: Tenderness, Distention, Guarding Rectal: Positive for: Other (rectal tube in place) Upper Extremity: Positive for: Capillary Refill < 2s. Negative for: Cyanosis Lower Extremity: Negative for: Edema, CALF TENDERNESS Neurological: Positive for: Other (following simple commands) Skin: Positive for: Warm, Dry, Pale Psychiatric: Positive for: Alert - Medications Active Medications: Active Medications Generic Name Dose Route Start Last Admin Trade Name Freq PRN Reason Stop Dose Admin Acetaminophen 650 mg 04/15/17 23:34 04/24/17 04:23 Tylenol 325mg Tab PO 650 mg Q6 PRN Administration fever > 100.4 Acetaminophen 650 mg 04/21/17 20:53 04/22/17 16:30 Tylenol 650 Mg Supp CO 650 mg Q4 PRN Administration Fever >100.4 F Albuterol/Ipratropium 3 ml 04/27/17 16:00 04/28/17 08:25 Duoneb 3 Mg/0.5 Mg (3 Ml) Ud INH 3 ml RQ4 ALFREDO Administration Apixaban 2.5 mg 04/17/17 17:00 04/28/17 08:58 Eliquis PO Not Given BID [facility] Protocol Aspirin 81 mg 04/19/17 13:00 04/28/17 08:57 Aspirin Chewable PO Not Given DAILY [facility] Atorvastatin Calcium 40 mg 04/13/17 22:00 04/27/17 21:57 Lipitor PO Not Given HS [facility] Bacitracin 1 applic 04/16/17 09:00 04/28/17 08:57 Bacitracin Oint TOP 1 applic BID ALFREDO Administration Dimethicone 1 applic 04/27/17 11:37 04/27/17 13:00 Proshield Plus Skin Protectant TOP 1 applic Q8 PRN Administration Dry skin Enalapril Maleate 2.5 mg 04/19/17 17:00 04/28/17 08:59 Vasotec PO Not Given BID ALFREDO Glipizide 10 mg 04/14/17 08:00 04/28/17 08:58 Glucotrol Xl PO Not Given BRKDIN [facility] Valproate Sodium 500 mg/ 105 mls @ 105 mls/hr 04/17/17 21:00 04/28/17 08:58 Sodium Chloride IVPB 105 mls/hr Q12 ALFREDO Administration As Directed Potassium Chloride/Sodium Chloride 1,000 mls @ 40 mls/hr 04/25/17 12:00 04/27 17:01 Potassium Chl 20 Meq In Ns IV Not Given .Q24H ALFREDO Insulin Detemir 28 units 04/24/17 17:16 04/27/17 21:55 Levemir SC 28 units HS ALFREDO Administration Insulin Human Regular 0 units 04/13/17 07:30 04/27/17 21:30 Humulin R SC Not Given ACHS [facility] Protocol Pantoprazole Sodium 40 mg 04/22/17 09:00 04/28/17 08:59 Protonix Inj IVP 40 mg DAILY ALFREDO Administration Repaglinide 1 mg 04/14/17 09:00 04/28/17 08:59 Prandin PO Not Given TID ALFREDO Sitagliptin Phosphate 50 mg 04/14/17 09:00 04/28/17 08:59 Januvia PO Not Given BID ALFREDO - Patient Studies Lab Studies: Microbiology Studies 04/22/17 19:03 Blood Culture - Final Blood-Venous NO GROWTH AFTER 5 DAYS Gram Stain - Final TEST NOT PERFORMED 04/22/17 19:03 Blood Culture - Final Blood-Venous NO GROWTH AFTER 5 DAYS Gram Stain - Final TEST NOT PERFORMED Lab Studies 04/28/17 04/28/17 04/28/17 Range/Units 05:31 05:07 04:25 WBC (4.8-10.8) K/uL RBC (3.80-5.20) Mil/uL Hgb (12.0-16.0) g/dL Hct (34.0-47.0) % MCV (81.0-99.0) fl MCH (27.0-31.0) pg MCHC (33.0-37.0) g/dL RDW (11.5-14.5) % Plt Count (130-400) K/uL MPV (7.2-11.7) fl Neut % (Auto) (50.0-75.0) % Lymph % (Auto) (20.0-40.0) % Ray % (Auto) (0.0-10.0) % Eos % (Auto) (0.0-4.0) % Baso % (Auto) (0.0-2.0) % Neut # (Auto) (1.8-7.0) K/uL Lymph # (Auto) (1.0-4.3) K/uL Ray # (Auto) (0.0-0.8) K/uL Eos # (Auto) (0.0-0.7) K/uL Baso # (Auto) (0.0-0.2) K/uL pCO2 35 (35-45) mm/Hg pO2 73 L (80-100) mm/Hg HCO3 25.4 (21-28) mmol/L ABG pH 7.45 (7.35-7.45) ABG Total CO2 25.4 (22-28) mmol/L ABG O2 Saturation 97.2 (95-98) % ABG O2 Content 17.8 (15-23) ML/dL ABG Base Excess 0.7 (-2.0-3.0) mmol/L ABG Hemoglobin 13.4 (11.7-17.4) g/dL ABG Carboxyhemoglobin 1.7 H (0.5-1.5) % POC ABG HHb (Measured) 2.7 (0.0-5.0) % ABG Methemoglobin 1.2 (0.0-3.0) % ABG O2 Capacity 18.3 (16-24) mL/dL Boaz Test Yes A-a O2 Difference 240.0 mm/Hg Hgb O2 Saturation 94.4 L (95.0-98.0) % Liter Flow 30 Vent Mode Hfov FiO2 50.0 % Sodium 146 (132-148) mmol/l Potassium 3.7 (3.6-5.0) MMOL/L Chloride 108 H (98-107) mmol/L Carbon Dioxide 24 (22-30) mmol/L Anion Gap 18 (10-20) BUN 17 (7-17) mg/dl Creatinine 0.7 (0.7-1.2) mg/dl Est GFR ( Amer) > 60 Est GFR (Non-Af Amer) > 60 POC Glucose (mg/dL) 259 H (65-110) mg/dL Random Glucose 340 H (65-105) mg/dL Calcium 9.4 (8.4-10.2) mg/dL C. difficile Ag & Toxin (NEGATIVE) 04/28/17 04/27/17 04/27/17 Range/Units 04:25 22:07 20:15 WBC 13.5 H (4.8-10.8) K/uL RBC 4.66 (3.80-5.20) Mil/uL Hgb 13.0 (12.0-16.0) g/dL Hct 41.5 (34.0-47.0) % MCV 89.0 (81.0-99.0) fl MCH 27.8 (27.0-31.0) pg MCHC 31.3 L (33.0-37.0) g/dL RDW 14.7 H (11.5-14.5) % Plt Count 235 (130-400) K/uL MPV 11.9 H (7.2-11.7) fl Neut % (Auto) 90.6 H (50.0-75.0) % Lymph % (Auto) 5.7 L (20.0-40.0) % Ray % (Auto) 3.2 (0.0-10.0) % Eos % (Auto) 0.0 (0.0-4.0) % Baso % (Auto) 0.5 (0.0-2.0) % Neut # (Auto) 12.2 H (1.8-7.0) K/uL Lymph # (Auto) 0.8 L (1.0-4.3) K/uL Ray # (Auto) 0.4 (0.0-0.8) K/uL Eos # (Auto) 0.0 (0.0-0.7) K/uL Baso # (Auto) 0.1 (0.0-0.2) K/uL pCO2 36 (35-45) mm/Hg pO2 85 (80-100) mm/Hg HCO3 25.3 (21-28) mmol/L ABG pH 7.44 (7.35-7.45) ABG Total CO2 25.6 (22-28) mmol/L ABG O2 Saturation 98.3 H (95-98) % ABG O2 Content 18.1 (15-23) ML/dL ABG Base Excess 0.6 (-2.0-3.0) mmol/L ABG Hemoglobin 13.4 (11.7-17.4) g/dL ABG Carboxyhemoglobin 1.5 (0.5-1.5) % POC ABG HHb (Measured) 1.7 (0.0-5.0) % ABG Methemoglobin 1.2 (0.0-3.0) % ABG O2 Capacity 18.4 (16-24) mL/dL Boaz Test Yes A-a O2 Difference 227.0 mm/Hg Hgb O2 Saturation 95.5 (95.0-98.0) % Liter Flow 30 Vent Mode High flow lpm FiO2 50.0 % Sodium (132-148) mmol/l Potassium (3.6-5.0) MMOL/L Chloride (98-107) mmol/L Carbon Dioxide (22-30) mmol/L Anion Gap (10-20) BUN (7-17) mg/dl Creatinine (0.7-1.2) mg/dl Est GFR ( Amer) Est GFR (Non-Af Amer) POC Glucose (mg/dL) 265 H (65-110) mg/dL Random Glucose (65-105) mg/dL Calcium (8.4-10.2) mg/dL C. difficile Ag & Toxin (NEGATIVE) 04/27/17 04/27/17 04/27/17 Range/Units 18:27 17:30 15:42 WBC (4.8-10.8) K/uL RBC (3.80-5.20) Mil/uL Hgb (12.0-16.0) g/dL Hct (34.0-47.0) % MCV (81.0-99.0) fl MCH (27.0-31.0) pg MCHC (33.0-37.0) g/dL RDW (11.5-14.5) % Plt Count (130-400) K/uL MPV (7.2-11.7) fl Neut % (Auto) (50.0-75.0) % Lymph % (Auto) (20.0-40.0) % Ray % (Auto) (0.0-10.0) % Eos % (Auto) (0.0-4.0) % Baso % (Auto) (0.0-2.0) % Neut # (Auto) (1.8-7.0) K/uL Lymph # (Auto) (1.0-4.3) K/uL Ray # (Auto) (0.0-0.8) K/uL Eos # (Auto) (0.0-0.7) K/uL Baso # (Auto) (0.0-0.2) K/uL pCO2 (35-45) mm/Hg pO2 (80-100) mm/Hg HCO3 (21-28) mmol/L ABG pH (7.35-7.45) ABG Total CO2 (22-28) mmol/L ABG O2 Saturation (95-98) % ABG O2 Content (15-23) ML/dL ABG Base Excess (-2.0-3.0) mmol/L ABG Hemoglobin (11.7-17.4) g/dL ABG Carboxyhemoglobin (0.5-1.5) % POC ABG HHb (Measured) (0.0-5.0) % ABG Methemoglobin (0.0-3.0) % ABG O2 Capacity (16-24) mL/dL Boaz Test A-a O2 Difference mm/Hg Hgb O2 Saturation (95.0-98.0) % Liter Flow Vent Mode FiO2 % Sodium (132-148) mmol/l Potassium 3.8 (3.6-5.0) MMOL/L Chloride (98-107) mmol/L Carbon Dioxide (22-30) mmol/L Anion Gap (10-20) BUN (7-17) mg/dl Creatinine (0.7-1.2) mg/dl Est GFR ( Amer) Est GFR (Non-Af Amer) POC Glucose (mg/dL) 258 H (65-110) mg/dL Random Glucose (65-105) mg/dL Calcium (8.4-10.2) mg/dL C. difficile Ag & Toxin Negative (NEGATIVE) 04/27/17 Range/Units 11:37 WBC (4.8-10.8) K/uL RBC (3.80-5.20) Mil/uL Hgb (12.0-16.0) g/dL Hct (34.0-47.0) % MCV (81.0-99.0) fl MCH (27.0-31.0) pg MCHC (33.0-37.0) g/dL RDW (11.5-14.5) % Plt Count (130-400) K/uL MPV (7.2-11.7) fl Neut % (Auto) (50.0-75.0) % Lymph % (Auto) (20.0-40.0) % Ray % (Auto) (0.0-10.0) % Eos % (Auto) (0.0-4.0) % Baso % (Auto) (0.0-2.0) % Neut # (Auto) (1.8-7.0) K/uL Lymph # (Auto) (1.0-4.3) K/uL Ray # (Auto) (0.0-0.8) K/uL Eos # (Auto) (0.0-0.7) K/uL Baso # (Auto) (0.0-0.2) K/uL pCO2 (35-45) mm/Hg pO2 (80-100) mm/Hg HCO3 (21-28) mmol/L ABG pH (7.35-7.45) ABG Total CO2 (22-28) mmol/L ABG O2 Saturation (95-98) % ABG O2 Content (15-23) ML/dL ABG Base Excess (-2.0-3.0) mmol/L ABG Hemoglobin (11.7-17.4) g/dL ABG Carboxyhemoglobin (0.5-1.5) % POC ABG HHb (Measured) (0.0-5.0) % ABG Methemoglobin (0.0-3.0) % ABG O2 Capacity (16-24) mL/dL Boaz Test A-a O2 Difference mm/Hg Hgb O2 Saturation (95.0-98.0) % Liter Flow Vent Mode FiO2 % Sodium (132-148) mmol/l Potassium (3.6-5.0) MMOL/L Chloride (98-107) mmol/L Carbon Dioxide (22-30) mmol/L Anion Gap (10-20) BUN (7-17) mg/dl Creatinine (0.7-1.2) mg/dl Est GFR ( Amer) Est GFR (Non-Af Amer) POC Glucose (mg/dL) 195 H (65-110) mg/dL Random Glucose (65-105) mg/dL Calcium (8.4-10.2) mg/dL C. difficile Ag & Toxin (NEGATIVE) Laboratory Results - last 24 hr 04/27/17 04/27/17 04/27/17 11:37 15:42 17:30 WBC RBC Hgb Hct MCV MCH MCHC RDW Plt Count MPV Neut % (Auto) Lymph % (Auto) Ray % (Auto) Eos % (Auto) Baso % (Auto) Neut # (Auto) Lymph # (Auto) Ray # (Auto) Eos # (Auto) Baso # (Auto) pCO2 pO2 HCO3 ABG pH ABG Total CO2 ABG O2 Saturation ABG O2 Content ABG Base Excess ABG Hemoglobin ABG Carboxyhemoglobin POC ABG HHb (Measured) ABG Methemoglobin ABG O2 Capacity Boaz Test A-a O2 Difference Hgb O2 Saturation Liter Flow Vent Mode FiO2 Sodium Potassium Chloride Carbon Dioxide Anion Gap BUN Creatinine Est GFR ( Amer) Est GFR (Non-Af Amer) POC Glucose (mg/dL) 195 H 258 H Random Glucose Calcium C. difficile Ag & Toxin Negative 04/27/17 04/27/17 04/27/17 18:27 20:15 22:07 WBC RBC Hgb Hct MCV MCH MCHC RDW Plt Count MPV Neut % (Auto) Lymph % (Auto) Ray % (Auto) Eos % (Auto) Baso % (Auto) Neut # (Auto) Lymph # (Auto) Ray # (Auto) Eos # (Auto) Baso # (Auto) pCO2 36 pO2 85 HCO3 25.3 ABG pH 7.44 ABG Total CO2 25.6 ABG O2 Saturation 98.3 H ABG O2 Content 18.1 ABG Base Excess 0.6 ABG Hemoglobin 13.4 ABG Carboxyhemoglobin 1.5 POC ABG HHb (Measured) 1.7 ABG Methemoglobin 1.2 ABG O2 Capacity 18.4 Boaz Test Yes A-a O2 Difference 227.0 Hgb O2 Saturation 95.5 Liter Flow 30 Vent Mode High flow lpm FiO2 50.0 Sodium Potassium 3.8 Chloride Carbon Dioxide Anion Gap BUN Creatinine Est GFR ( Amer) Est GFR (Non-Af Amer) POC Glucose (mg/dL) 265 H Random Glucose Calcium C. difficile Ag & Toxin 04/28/17 04/28/17 04/28/17 04:25 04:25 05:07 WBC 13.5 H RBC 4.66 Hgb 13.0 Hct 41.5 MCV 89.0 MCH 27.8 MCHC 31.3 L RDW 14.7 H Plt Count 235 MPV 11.9 H Neut % (Auto) 90.6 H Lymph % (Auto) 5.7 L Ray % (Auto) 3.2 Eos % (Auto) 0.0 Baso % (Auto) 0.5 Neut # (Auto) 12.2 H Lymph # (Auto) 0.8 L Ray # (Auto) 0.4 Eos # (Auto) 0.0 Baso # (Auto) 0.1 pCO2 35 pO2 73 L HCO3 25.4 ABG pH 7.45 ABG Total CO2 25.4 ABG O2 Saturation 97.2 ABG O2 Content 17.8 ABG Base Excess 0.7 ABG Hemoglobin 13.4 ABG Carboxyhemoglobin 1.7 H POC ABG HHb (Measured) 2.7 ABG Methemoglobin 1.2 ABG O2 Capacity 18.3 Boaz Test Yes A-a O2 Difference 240.0 Hgb O2 Saturation 94.4 L Liter Flow 30 Vent Mode Hfov FiO2 50.0 Sodium 146 Potassium 3.7 Chloride 108 H Carbon Dioxide 24 Anion Gap 18 BUN 17 Creatinine 0.7 Est GFR ( Amer) > 60 Est GFR (Non-Af Amer) > 60 POC Glucose (mg/dL) Random Glucose 340 H Calcium 9.4 C. difficile Ag & Toxin 04/28/17 05:31 WBC RBC Hgb Hct MCV MCH MCHC RDW Plt Count MPV Neut % (Auto) Lymph % (Auto) Ray % (Auto) Eos % (Auto) Baso % (Auto) Neut # (Auto) Lymph # (Auto) Ray # (Auto) Eos # (Auto) Baso # (Auto) pCO2 pO2 HCO3 ABG pH ABG Total CO2 ABG O2 Saturation ABG O2 Content ABG Base Excess ABG Hemoglobin ABG Carboxyhemoglobin POC ABG HHb (Measured) ABG Methemoglobin ABG O2 Capacity Boaz Test A-a O2 Difference Hgb O2 Saturation Liter Flow Vent Mode FiO2 Sodium Potassium Chloride Carbon Dioxide Anion Gap BUN Creatinine Est GFR ( Amer) Est GFR (Non-Af Amer) POC Glucose (mg/dL) 259 H Random Glucose Calcium C. difficile Ag & Toxin Fingerstick Blood Sugar Results: 259 Assessment/Plan - Assessment and Plan (Free Text) Plan: Acute Respiratory Failure -likely 2/2 aspiration Pneumonia vs HAP -resolving -afebrile -successful extubated on 04/27/17 -ABG today showed no hypercapnia and PH normal -On high flow 30 LPM, 50 % with > 93 oxygen saturation -switch from High flow to nasal cannula 6 LPM -Repeat Blood Cx, Urine Cx, and sputum Cx -duoneb Q6 h alfredo as per Pulmonology rec -Vancomycin was stopped on 04/26/17 as per ID. Completed 6 days -Meropenem was stopped on 04/27/17 as per ID. Completed 5 days -DC Diamox on 04/28/17 am -CXR today reported as mild right basilar atelectasis or infiltrate, with small pleural effusion -Pulmonology on consult as per primary team. Rec are appreciated -ID was consulted by primary team. rec are appreciated. -yesterday after extubation was having stridor, mangaged with duoneb x2, racepinephrine once, solumedrol 125 mg IV once. Resolved. Acute Ischemic Stroke -On aspirin 81 mg daily -On atorvastatin 40 mg daily -On Eliquis( empirically started by neuro ) -c/w glycemic control -last Head CT w/o contrast on 04/24/17 reported as no evidence of acute infarct. Subacute infarct right mcleod radiata/centrum semiovale. No acute hemorrhage - MRI head showed acute stroke in right frontal lobe white matter. -Repeat MRI of the Brain : showed acute/ subacute stroke in right mcleod radiata and centrum ovale -Neurology was consulted by primary team -PT/OT evaluation and treatment Leukocytosis -WBC : 13 today -afebrile -completed antibiotics as per ID -could be 2/2 steriod given yesterday -f/u CBC in am Diarrheas -was on antibiotics -C-diff on 04/27/17 was negative Diet -NG tube -re-start feeding: Glucerna Hypokalemia -resolved -K+ 3.7 Positive fluid balance resolved -DC furosemide 20 mg IV Q12 -normal renal function, GFR>60 Diabetes Mellitus type2 -c/w glycemic control -Hgb A1c 16 Hypertension -c/w current HTN management s/p stroke Diabetic foot calluses -Podiatry on consult by primary team -Podiatry recs are appreciated Prophylaxis -DVT prophylaxis : on SCDs and Eliquis 2.5 mg BID -stress ulcer prophylaxis: Protonix 40 mg IV daily -pressure ulcers precautions - Date & Time Date: 04/28/17 Time: 08:55 <Wettimuny,Hadley - Last Filed: 04/28/17 15:57> CCU Objective - Vital Signs / Intake & Output Vital Signs (Last 4 hours): Vital Signs Temp Pulse Resp BP Pulse Ox 04/28/17 14:52 107 H 29 H 149/76 93 L 04/28/17 12:00 98.7 F 107 H 29 H 158/77 H 93 L Intake and Output (Last 8hrs): Intake & Output 04/28/17 04/28/17 04/28/17 06:59 14:59 22:59 Intake Total 40 100 Output Total 1550 Balance -1510 100 Weight 170 lb Intake: IV 40 Intake, Piggyback 100 Output: Urine 1500 Urethral (Ndiaye) 1500 Stool 50 - Medications Active Medications: Active Medications Generic Name Dose Route Start Last Admin Trade Name Freq PRN Reason Stop Dose Admin Acetaminophen 650 mg 04/15/17 23:34 04/24/17 04:23 Tylenol 325mg Tab PO 650 mg Q6 PRN Administration fever > 100.4 Acetaminophen 650 mg 04/21/17 20:53 04/22/17 16:30 Tylenol 650 Mg Supp CO 650 mg Q4 PRN Administration Fever >100.4 F Albuterol/Ipratropium 3 ml 04/28/17 14:00 Duoneb 3 Mg/0.5 Mg (3 Ml) Ud INH RQ6 [facility] Apixaban 2.5 mg 04/17/17 17:00 04/28/17 08:58 Eliquis PO Not Given BID [facility] Protocol Aspirin 81 mg 04/19/17 13:00 04/28/17 08:57 Aspirin Chewable PO Not Given DAILY [facility] Atorvastatin Calcium 40 mg 04/13/17 22:00 04/27/17 21:57 Lipitor PO Not Given HS [facility] Bacitracin 1 applic 04/16/17 09:00 04/28/17 08:57 Bacitracin Oint TOP 1 applic BID ALFREDO Administration Dimethicone 1 applic 04/27/17 11:37 04/27/17 13:00 Proshield Plus Skin Protectant TOP 1 applic Q8 PRN Administration Dry skin Enalapril Maleate 2.5 mg 04/19/17 17:00 04/28/17 08:59 Vasotec PO Not Given BID [facility] Glipizide 10 mg 04/14/17 08:00 04/28/17 08:58 Glucotrol Xl PO Not Given BRKDIN ALFERDO Valproate Sodium 500 mg/ 105 mls @ 105 mls/hr 04/17/17 21:00 04/28/17 08:58 Sodium Chloride IVPB 105 mls/hr Q12 ALFREDO Administration As Directed Insulin Detemir 28 units 04/24/17 17:16 04/27/17 21:55 Levemir SC 28 units HS ALFREDO Administration Insulin Human Regular 0 units 04/13/17 07:30 04/28/17 13:10 Humulin R SC 1 units ACHS ALFREDO Administration Protocol Pantoprazole Sodium 40 mg 04/22/17 09:00 04/28/17 08:59 Protonix Inj IVP 40 mg DAILY ALFREDO Administration Repaglinide 1 mg 04/14/17 09:00 04/28/17 13:10 Prandin PO Not Given TID ALFREDO Sitagliptin Phosphate 50 mg 04/14/17 09:00 04/28/17 08:59 Januvia PO Not Given BID ALFREDO - Patient Studies Lab Studies: Microbiology Studies 04/22/17 19:03 Blood Culture - Final Blood-Venous NO GROWTH AFTER 5 DAYS Gram Stain - Final TEST NOT PERFORMED 04/22/17 19:03 Blood Culture - Final Blood-Venous NO GROWTH AFTER 5 DAYS Gram Stain - Final TEST NOT PERFORMED Lab Studies 04/28/17 04/28/17 04/28/17 Range/Units 11:19 05:31 05:07 WBC (4.8-10.8) K/uL RBC (3.80-5.20) Mil/uL Hgb (12.0-16.0) g/dL Hct (34.0-47.0) % MCV (81.0-99.0) fl MCH (27.0-31.0) pg MCHC (33.0-37.0) g/dL RDW (11.5-14.5) % Plt Count (130-400) K/uL MPV (7.2-11.7) fl Neut % (Auto) (50.0-75.0) % Lymph % (Auto) (20.0-40.0) % Ray % (Auto) (0.0-10.0) % Eos % (Auto) (0.0-4.0) % Baso % (Auto) (0.0-2.0) % Neut # (Auto) (1.8-7.0) K/uL Lymph # (Auto) (1.0-4.3) K/uL Ray # (Auto) (0.0-0.8) K/uL Eos # (Auto) (0.0-0.7) K/uL Baso # (Auto) (0.0-0.2) K/uL Neutrophils % (Manual) (42-75) % Band Neutrophils % (0-2) % Lymphocytes % (Manual) (20-50) % Monocytes % (Manual) (0-10) % Platelet Estimate (NORMAL) Anisocytosis (manual) pCO2 35 (35-45) mm/Hg pO2 73 L (80-100) mm/Hg HCO3 25.4 (21-28) mmol/L ABG pH 7.45 (7.35-7.45) ABG Total CO2 25.4 (22-28) mmol/L ABG O2 Saturation 97.2 (95-98) % ABG O2 Content 17.8 (15-23) ML/dL ABG Base Excess 0.7 (-2.0-3.0) mmol/L ABG Hemoglobin 13.4 (11.7-17.4) g/dL ABG Carboxyhemoglobin 1.7 H (0.5-1.5) % POC ABG HHb (Measured) 2.7 (0.0-5.0) % ABG Methemoglobin 1.2 (0.0-3.0) % ABG O2 Capacity 18.3 (16-24) mL/dL Boaz Test Yes A-a O2 Difference 240.0 mm/Hg Hgb O2 Saturation 94.4 L (95.0-98.0) % Liter Flow 30 Vent Mode Hfov FiO2 50.0 % Sodium (132-148) mmol/l Potassium (3.6-5.0) MMOL/L Chloride (98-107) mmol/L Carbon Dioxide (22-30) mmol/L Anion Gap (10-20) BUN (7-17) mg/dl Creatinine (0.7-1.2) mg/dl Est GFR ( Amer) Est GFR (Non-Af Amer) POC Glucose (mg/dL) 160 H 259 H (65-110) mg/dL Random Glucose (65-105) mg/dL Calcium (8.4-10.2) mg/dL C. difficile Ag & Toxin (NEGATIVE) 04/28/17 04/28/17 04/27/17 Range/Units 04:25 04:25 22:07 WBC 13.5 H (4.8-10.8) K/uL RBC 4.66 (3.80-5.20) Mil/uL Hgb 13.0 (12.0-16.0) g/dL Hct 41.5 (34.0-47.0) % MCV 89.0 (81.0-99.0) fl MCH 27.8 (27.0-31.0) pg MCHC 31.3 L (33.0-37.0) g/dL RDW 14.7 H (11.5-14.5) % Plt Count 235 (130-400) K/uL MPV 11.9 H (7.2-11.7) fl Neut % (Auto) 90.6 H (50.0-75.0) % Lymph % (Auto) 5.7 L (20.0-40.0) % Ray % (Auto) 3.2 (0.0-10.0) % Eos % (Auto) 0.0 (0.0-4.0) % Baso % (Auto) 0.5 (0.0-2.0) % Neut # (Auto) 12.2 H (1.8-7.0) K/uL Lymph # (Auto) 0.8 L (1.0-4.3) K/uL Ray # (Auto) 0.4 (0.0-0.8) K/uL Eos # (Auto) 0.0 (0.0-0.7) K/uL Baso # (Auto) 0.1 (0.0-0.2) K/uL Neutrophils % (Manual) 92 H (42-75) % Band Neutrophils % 1 (0-2) % Lymphocytes % (Manual) 4 L (20-50) % Monocytes % (Manual) 3 (0-10) % Platelet Estimate Normal (NORMAL) Anisocytosis (manual) Slight pCO2 36 (35-45) mm/Hg pO2 85 (80-100) mm/Hg HCO3 25.3 (21-28) mmol/L ABG pH 7.44 (7.35-7.45) ABG Total CO2 25.6 (22-28) mmol/L ABG O2 Saturation 98.3 H (95-98) % ABG O2 Content 18.1 (15-23) ML/dL ABG Base Excess 0.6 (-2.0-3.0) mmol/L ABG Hemoglobin 13.4 (11.7-17.4) g/dL ABG Carboxyhemoglobin 1.5 (0.5-1.5) % POC ABG HHb (Measured) 1.7 (0.0-5.0) % ABG Methemoglobin 1.2 (0.0-3.0) % ABG O2 Capacity 18.4 (16-24) mL/dL Boaz Test Yes A-a O2 Difference 227.0 mm/Hg Hgb O2 Saturation 95.5 (95.0-98.0) % Liter Flow 30 Vent Mode High flow lpm FiO2 50.0 % Sodium 146 (132-148) mmol/l Potassium 3.7 (3.6-5.0) MMOL/L Chloride 108 H (98-107) mmol/L Carbon Dioxide 24 (22-30) mmol/L Anion Gap 18 (10-20) BUN 17 (7-17) mg/dl Creatinine 0.7 (0.7-1.2) mg/dl Est GFR ( Amer) > 60 Est GFR (Non-Af Amer) > 60 POC Glucose (mg/dL) (65-110) mg/dL Random Glucose 340 H (65-105) mg/dL Calcium 9.4 (8.4-10.2) mg/dL C. difficile Ag & Toxin (NEGATIVE) 04/27/17 04/27/17 04/27/17 Range/Units 20:15 18:27 17:30 WBC (4.8-10.8) K/uL RBC (3.80-5.20) Mil/uL Hgb (12.0-16.0) g/dL Hct (34.0-47.0) % MCV (81.0-99.0) fl MCH (27.0-31.0) pg MCHC (33.0-37.0) g/dL RDW (11.5-14.5) % Plt Count (130-400) K/uL MPV (7.2-11.7) fl Neut % (Auto) (50.0-75.0) % Lymph % (Auto) (20.0-40.0) % Ray % (Auto) (0.0-10.0) % Eos % (Auto) (0.0-4.0) % Baso % (Auto) (0.0-2.0) % Neut # (Auto) (1.8-7.0) K/uL Lymph # (Auto) (1.0-4.3) K/uL Ray # (Auto) (0.0-0.8) K/uL Eos # (Auto) (0.0-0.7) K/uL Baso # (Auto) (0.0-0.2) K/uL Neutrophils % (Manual) (42-75) % Band Neutrophils % (0-2) % Lymphocytes % (Manual) (20-50) % Monocytes % (Manual) (0-10) % Platelet Estimate (NORMAL) Anisocytosis (manual) pCO2 (35-45) mm/Hg pO2 (80-100) mm/Hg HCO3 (21-28) mmol/L ABG pH (7.35-7.45) ABG Total CO2 (22-28) mmol/L ABG O2 Saturation (95-98) % ABG O2 Content (15-23) ML/dL ABG Base Excess (-2.0-3.0) mmol/L ABG Hemoglobin (11.7-17.4) g/dL ABG Carboxyhemoglobin (0.5-1.5) % POC ABG HHb (Measured) (0.0-5.0) % ABG Methemoglobin (0.0-3.0) % ABG O2 Capacity (16-24) mL/dL Boaz Test A-a O2 Difference mm/Hg Hgb O2 Saturation (95.0-98.0) % Liter Flow Vent Mode FiO2 % Sodium (132-148) mmol/l Potassium 3.8 (3.6-5.0) MMOL/L Chloride (98-107) mmol/L Carbon Dioxide (22-30) mmol/L Anion Gap (10-20) BUN (7-17) mg/dl Creatinine (0.7-1.2) mg/dl Est GFR ( Amer) Est GFR (Non-Af Amer) POC Glucose (mg/dL) 265 H (65-110) mg/dL Random Glucose (65-105) mg/dL Calcium (8.4-10.2) mg/dL C. difficile Ag & Toxin Negative (NEGATIVE) Laboratory Results - last 24 hr 04/27/17 04/27/17 04/27/17 17:30 18:27 20:15 WBC RBC Hgb Hct MCV MCH MCHC RDW Plt Count MPV Neut % (Auto) Lymph % (Auto) Ray % (Auto) Eos % (Auto) Baso % (Auto) Neut # (Auto) Lymph # (Auto) Ray # (Auto) Eos # (Auto) Baso # (Auto) Neutrophils % (Manual) Band Neutrophils % Lymphocytes % (Manual) Monocytes % (Manual) Platelet Estimate Anisocytosis (manual) pCO2 pO2 HCO3 ABG pH ABG Total CO2 ABG O2 Saturation ABG O2 Content ABG Base Excess ABG Hemoglobin ABG Carboxyhemoglobin POC ABG HHb (Measured) ABG Methemoglobin ABG O2 Capacity Boaz Test A-a O2 Difference Hgb O2 Saturation Liter Flow Vent Mode FiO2 Sodium Potassium 3.8 Chloride Carbon Dioxide Anion Gap BUN Creatinine Est GFR ( Amer) Est GFR (Non-Af Amer) POC Glucose (mg/dL) 265 H Random Glucose Calcium C. difficile Ag & Toxin Negative 04/27/17 04/28/17 04/28/17 22:07 04:25 04:25 WBC 13.5 H RBC 4.66 Hgb 13.0 Hct 41.5 MCV 89.0 MCH 27.8 MCHC 31.3 L RDW 14.7 H Plt Count 235 MPV 11.9 H Neut % (Auto) 90.6 H Lymph % (Auto) 5.7 L Ray % (Auto) 3.2 Eos % (Auto) 0.0 Baso % (Auto) 0.5 Neut # (Auto) 12.2 H Lymph # (Auto) 0.8 L Ray # (Auto) 0.4 Eos # (Auto) 0.0 Baso # (Auto) 0.1 Neutrophils % (Manual) 92 H Band Neutrophils % 1 Lymphocytes % (Manual) 4 L Monocytes % (Manual) 3 Platelet Estimate Normal Anisocytosis (manual) Slight pCO2 36 pO2 85 HCO3 25.3 ABG pH 7.44 ABG Total CO2 25.6 ABG O2 Saturation 98.3 H ABG O2 Content 18.1 ABG Base Excess 0.6 ABG Hemoglobin 13.4 ABG Carboxyhemoglobin 1.5 POC ABG HHb (Measured) 1.7 ABG Methemoglobin 1.2 ABG O2 Capacity 18.4 Boaz Test Yes A-a O2 Difference 227.0 Hgb O2 Saturation 95.5 Liter Flow 30 Vent Mode High flow lpm FiO2 50.0 Sodium 146 Potassium 3.7 Chloride 108 H Carbon Dioxide 24 Anion Gap 18 BUN 17 Creatinine 0.7 Est GFR ( Amer) > 60 Est GFR (Non-Af Amer) > 60 POC Glucose (mg/dL) Random Glucose 340 H Calcium 9.4 C. difficile Ag & Toxin 04/28/17 04/28/17 04/28/17 05:07 05:31 11:19 WBC RBC Hgb Hct MCV MCH MCHC RDW Plt Count MPV Neut % (Auto) Lymph % (Auto) Ray % (Auto) Eos % (Auto) Baso % (Auto) Neut # (Auto) Lymph # (Auto) Ray # (Auto) Eos # (Auto) Baso # (Auto) Neutrophils % (Manual) Band Neutrophils % Lymphocytes % (Manual) Monocytes % (Manual) Platelet Estimate Anisocytosis (manual) pCO2 35 pO2 73 L HCO3 25.4 ABG pH 7.45 ABG Total CO2 25.4 ABG O2 Saturation 97.2 ABG O2 Content 17.8 ABG Base Excess 0.7 ABG Hemoglobin 13.4 ABG Carboxyhemoglobin 1.7 H POC ABG HHb (Measured) 2.7 ABG Methemoglobin 1.2 ABG O2 Capacity 18.3 Boaz Test Yes A-a O2 Difference 240.0 Hgb O2 Saturation 94.4 L Liter Flow 30 Vent Mode Hfov FiO2 50.0 Sodium Potassium Chloride Carbon Dioxide Anion Gap BUN Creatinine Est GFR ( Amer) Est GFR (Non-Af Amer) POC Glucose (mg/dL) 259 H 160 H Random Glucose Calcium C. difficile Ag & Toxin Attending/Attestation - Attestation I have personally seen and examined this patient.: Yes I have fully participated in the care of the patient.: Yes I have reviewed all pertinent clinical information: Yes Notes (Text): 04/28/17 15:53 I have seen and examined the patient. Medical records, lab studies, and imaging were reviewed by me and a management plan was formulated on multidisciplinary rounds with resident Dr. Hidalgo. I agree with their above documented assessment and plan. Patient extubated yesterday, breathing well. She still has some level of expressive aphasia. states she was started on medication for Alzheimer' s prior to her stroke. Patient is on Depakote for mood stabilization. We will add Namenda. PT/OT consulted. Failed s/s eval, NGT for feeds for now. Critical Care Time 35 minutes. Multi-disciplinary rounds were performed with house staff, nursing, speech therapy, respiratory therapy, pharmacy and nutrition with integrated input from the primary team/attending and other consulting services. The documented time is cumulative and includes review of patient data/exams/labs/chart review and examination of the patient on rounds and throughout the day; time is exclusive of any procedures or teaching time.
--- NOTE | 2017-04-28 11:15 | RAD ---
PROCEDURE: CHEST RADIOGRAPH, 1 VIEW HISTORY: BIPAP COMPARISON: None available. FINDINGS: Interval removal ETT and NGT. LUNGS: Mild bibasilar right basilar atelectasis and or infiltrate with small right-sided effusion. Minimal left basilar atelectasis. PLEURA: As above. No apparent pneumothorax. CARDIOVASCULAR: Normal. OSSEOUS STRUCTURES: No significant abnormalities. VISUALIZED UPPER ABDOMEN: Normal. OTHER FINDINGS: None. IMPRESSION: Interval removal ETT and NGT. Mild bibasilar right basilar atelectasis and or infiltrate with small right-sided effusion. Minimal left basilar atelectasis.
[2017-04-28 11:54] LABS: BANDS 1 % (0-2); LYMPHOCYTE 4 % (20-50); MONOCYTE 3 % (0-10); NEUTROPHIL 92 % (42-75); PLATELET ESTIMATE NORMAL (NORMAL); TOTAL CELLS COUNTED 100
[2017-04-28 11:55] LABS: ANISOCYTOSIS SLIGHT
--- NOTE | 2017-04-28 12:19 | CP.PCM.PN ---
Subjective - Date & Time of Evaluation Date of Evaluation: 04/28/17 Time of Evaluation: 12:19 - Subjective Subjective: ID Note- Pt. seen and examined today in ICU. not on Bipap , just on nasal canula . awake but slightly agitated. as per ICU resident pt. did receive a dose of IV solumedrol yesterday. pt. continues to have diarrhe abut stool c.diff - neg x 2 Objective - Vital Signs/Intake and Output Vital Signs (last 24 hours): Temp Pulse Resp BP Pulse Ox 98.5 F 109 H 22 158/87 H 95 04/28/17 08:00 04/28/17 08:00 04/28/17 08:26 04/28/17 08:00 04/28/17 08:00 Intake and Output: 04/28/17 04/28/17 06:59 18:59 Intake Total 150 100 Output Total 1550 Balance -1400 100 - Medications Medications: Current Medications Acetaminophen (Tylenol 325mg Tab) 650 mg PO Q6 PRN PRN Reason: fever > 100.4 Last Admin: 04/24/17 04:23 Dose: 650 mg Acetaminophen (Tylenol 650 Mg Supp) 650 mg SC Q4 PRN PRN Reason: Fever >100.4 F Last Admin: 04/22/17 16:30 Dose: 650 mg Albuterol/Ipratropium (Duoneb 3 Mg/0.5 Mg (3 Ml) Ud) 3 ml INH RQ4 [facility] Last Admin: 04/28/17 11:28 Dose: 3 ml Apixaban (Eliquis) 2.5 mg PO BID [facility] PRN Reason: Protocol Last Admin: 04/28/17 08:58 Dose: Not Given Aspirin (Aspirin Chewable) 81 mg PO DAILY [facility] Last Admin: 04/28/17 08:57 Dose: Not Given Atorvastatin Calcium (Lipitor) 40 mg PO HS [facility] Last Admin: 04/27/17 21:57 Dose: Not Given Bacitracin (Bacitracin Oint) 1 applic TOP BID [facility] Last Admin: 04/28/17 08:57 Dose: 1 applic Dimethicone (Proshield Plus Skin Protectant) 1 applic TOP Q8 PRN PRN Reason: Dry skin Last Admin: 04/27/17 13:00 Dose: 1 applic Enalapril Maleate (Vasotec) 2.5 mg PO BID [facility] Last Admin: 04/28/17 08:59 Dose: Not Given Glipizide (Glucotrol Xl) 10 mg PO BRKDIN [facility] Last Admin: 04/28/17 08:58 Dose: Not Given Valproate Sodium 500 mg/ (Sodium Chloride) 105 mls @ 105 mls/hr IVPB Q12 [facility] PRN Reason: As Directed Last Admin: 04/28/17 08:58 Dose: 105 mls/hr Insulin Detemir (Levemir) 28 units SC HS [facility] Last Admin: 04/27/17 21:55 Dose: 28 units Insulin Human Regular (Humulin R) 0 units SC ACHS [facility] PRN Reason: Protocol Last Admin: 04/27/17 21:30 Dose: Not Given Pantoprazole Sodium (Protonix Inj) 40 mg IVP DAILY [facility] Last Admin: 04/28/17 08:59 Dose: 40 mg Repaglinide (Prandin) 1 mg PO TID [facility] Last Admin: 04/28/17 08:59 Dose: Not Given Sitagliptin Phosphate (Januvia) 50 mg PO BID [facility] Last Admin: 04/28/17 08:59 Dose: Not Given - Labs Labs: - Additional Findings Additional findings: - Head Exam Head Exam: ATRAUMATIC - ENT Exam Additional comments: has nasal canula on for oxygen only - Neck Exam Neck exam: Positive for: Full Rom Additional comments: supple - Respiratory Exam Additional comments: breath sounds heard b/l no wheezing - Cardiovascular Exam Cardiovascular Exam: RRR, +S1, +S2 - GI/Abdominal Exam GI & Abdominal Exam: Normal Bowel Sounds, Soft Additional comments: ND, NT - Extremities Exam Additional comments: no edema b/l LE, no ulcerations - Neurological Exam Additional comments: awake and follows some commands, slightly agitated Laboratory Results - last 72 hr 04/25/17 04/25/17 04/26/17 16:12 21:58 04:15 WBC RBC Hgb Hct MCV MCH MCHC RDW Plt Count MPV Neut % (Auto) Lymph % (Auto) Bladen % (Auto) Eos % (Auto) Baso % (Auto) Neut # (Auto) Lymph # (Auto) Bladen # (Auto) Eos # (Auto) Baso # (Auto) Neutrophils % (Manual) Band Neutrophils % Lymphocytes % (Manual) Monocytes % (Manual) Platelet Estimate Anisocytosis (manual) pCO2 38 pO2 113 H HCO3 30.2 H ABG pH 7.51 H ABG Total CO2 31.5 H ABG O2 Saturation 99.2 H ABG O2 Content 15.1 ABG Base Excess 6.8 H ABG Hemoglobin 11.0 L ABG Carboxyhemoglobin 1.4 POC ABG HHb (Measured) 0.8 ABG Methemoglobin 1.3 ABG O2 Capacity 15.2 L Boza Test Yes ABG Potassium A-a O2 Difference 267.0 Hgb O2 Saturation 96.5 Glucose Lactate Liter Flow Vent Mode A/c Mechanical Rate 12 FiO2 60.0 Tidal Volume 500 PEEP 5 Sodium Potassium Chloride Carbon Dioxide Anion Gap BUN Creatinine Est GFR ( Amer) Est GFR (Non-Af Amer) POC Glucose (mg/dL) 137 H 142 H Random Glucose Calcium Total Bilirubin AST ALT Alkaline Phosphatase Total Protein Albumin Globulin Albumin/Globulin Ratio Arterial Blood Potassium C. difficile Ag & Toxin 04/26/17 04/26/17 04/26/17 04:30 04:30 06:07 WBC 9.1 D RBC 4.16 Hgb 11.8 L Hct 37.1 MCV 89.3 MCH 28.3 MCHC 31.7 L RDW 14.6 H Plt Count 133 MPV Neut % (Auto) Lymph % (Auto) Bladen % (Auto) Eos % (Auto) Baso % (Auto) Neut # (Auto) Lymph # (Auto) Bladen # (Auto) Eos # (Auto) Baso # (Auto) Neutrophils % (Manual) Band Neutrophils % Lymphocytes % (Manual) Monocytes % (Manual) Platelet Estimate Anisocytosis (manual) pCO2 pO2 HCO3 ABG pH ABG Total CO2 ABG O2 Saturation ABG O2 Content ABG Base Excess ABG Hemoglobin ABG Carboxyhemoglobin POC ABG HHb (Measured) ABG Methemoglobin ABG O2 Capacity Boaz Test ABG Potassium A-a O2 Difference Hgb O2 Saturation Glucose Lactate Liter Flow Vent Mode Mechanical Rate FiO2 Tidal Volume PEEP Sodium 146 Potassium 3.5 L Chloride 107 Carbon Dioxide 32 H Anion Gap 11 BUN 20 H Creatinine 0.4 L Est GFR ( Amer) > 60 Est GFR (Non-Af Amer) > 60 POC Glucose (mg/dL) 138 H Random Glucose 135 H Calcium 8.2 L Total Bilirubin AST ALT Alkaline Phosphatase Total Protein Albumin Globulin Albumin/Globulin Ratio Arterial Blood Potassium C. difficile Ag & Toxin 02/04/26/17 04/26/17 11:14 16:26 21:32 WBC RBC Hgb Hct MCV MCH MCHC RDW Plt Count MPV Neut % (Auto) Lymph % (Auto) Bladen % (Auto) Eos % (Auto) Baso % (Auto) Neut # (Auto) Lymph # (Auto) Bladen # (Auto) Eos # (Auto) Baso # (Auto) Neutrophils % (Manual) Band Neutrophils % Lymphocytes % (Manual) Monocytes % (Manual) Platelet Estimate Anisocytosis (manual) pCO2 pO2 HCO3 ABG pH ABG Total CO2 ABG O2 Saturation ABG O2 Content ABG Base Excess ABG Hemoglobin ABG Carboxyhemoglobin POC ABG HHb (Measured) ABG Methemoglobin ABG O2 Capacity Boaz Test ABG Potassium A-a O2 Difference Hgb O2 Saturation Glucose Lactate Liter Flow Vent Mode Mechanical Rate FiO2 Tidal Volume PEEP Sodium Potassium Chloride Carbon Dioxide Anion Gap BUN Creatinine Est GFR ( Amer) Est GFR (Non-Af Amer) POC Glucose (mg/dL) 121 H 140 H 111 H Random Glucose Calcium Total Bilirubin AST ALT Alkaline Phosphatase Total Protein Albumin Globulin Albumin/Globulin Ratio Arterial Blood Potassium C. difficile Ag & Toxin 04/27/17 04/27/17 04/27/17 04:43 04:45 04:45 WBC 11.5 H RBC 4.12 Hgb 11.6 L Hct 36.6 MCV 88.9 MCH 28.1 MCHC 31.7 L RDW 14.6 H Plt Count 156 MPV Neut % (Auto) Lymph % (Auto) Bladen % (Auto) Eos % (Auto) Baso % (Auto) Neut # (Auto) Lymph # (Auto) Bladen # (Auto) Eos # (Auto) Baso # (Auto) Neutrophils % (Manual) Band Neutrophils % Lymphocytes % (Manual) Monocytes % (Manual) Platelet Estimate Anisocytosis (manual) pCO2 pO2 HCO3 ABG pH ABG Total CO2 ABG O2 Saturation ABG O2 Content ABG Base Excess ABG Hemoglobin ABG Carboxyhemoglobin POC ABG HHb (Measured) ABG Methemoglobin ABG O2 Capacity Boaz Test ABG Potassium A-a O2 Difference Hgb O2 Saturation Glucose Lactate Liter Flow Vent Mode Mechanical Rate FiO2 Tidal Volume PEEP Sodium 142 Potassium 3.4 L Chloride 106 Carbon Dioxide 29 Anion Gap 10 BUN 10 Creatinine 0.5 L Est GFR ( Amer) > 60 Est GFR (Non-Af Amer) > 60 POC Glucose (mg/dL) 152 H Random Glucose 184 H Calcium 8.5 Total Bilirubin 0.4 AST 20 ALT 24 Alkaline Phosphatase 76 Total Protein 6.8 Albumin 2.9 L Globulin 3.9 Albumin/Globulin Ratio 0.7 L Arterial Blood Potassium C. difficile Ag & Toxin 04/27/17 04/27/17 04/27/17 04:56 11:37 15:42 WBC RBC Hgb Hct MCV MCH MCHC RDW Plt Count MPV Neut % (Auto) Lymph % (Auto) Bladen % (Auto) Eos % (Auto) Baso % (Auto) Neut # (Auto) Lymph # (Auto) Bladen # (Auto) Eos # (Auto) Baso # (Auto) Neutrophils % (Manual) Band Neutrophils % Lymphocytes % (Manual) Monocytes % (Manual) Platelet Estimate Anisocytosis (manual) pCO2 37 pO2 77 L HCO3 26.8 ABG pH 7.46 H ABG Total CO2 27.4 ABG O2 Saturation 97.6 ABG O2 Content ABG Base Excess 2.5 ABG Hemoglobin ABG Carboxyhemoglobin POC ABG HHb (Measured) ABG Methemoglobin ABG O2 Capacity Boaz Test Yes ABG Potassium 3.2 L A-a O2 Difference 162.0 Hgb O2 Saturation Glucose 185 H Lactate 0.9 Liter Flow Vent Mode A/c Mechanical Rate 12 FiO2 40.0 Tidal Volume 500 PEEP 5 Sodium 138.0 Potassium Chloride 107.0 Carbon Dioxide Anion Gap BUN Creatinine Est GFR ( Amer) Est GFR (Non-Af Amer) POC Glucose (mg/dL) 195 H 258 H Random Glucose Calcium Total Bilirubin AST ALT Alkaline Phosphatase Total Protein Albumin Globulin Albumin/Globulin Ratio Arterial Blood Potassium 3.2 L C. difficile Ag & Toxin 04/27/17 04/27/17 04/27/17 17:30 18:27 20:15 WBC RBC Hgb Hct MCV MCH MCHC RDW Plt Count MPV Neut % (Auto) Lymph % (Auto) Bladen % (Auto) Eos % (Auto) Baso % (Auto) Neut # (Auto) Lymph # (Auto) Bladen # (Auto) Eos # (Auto) Baso # (Auto) Neutrophils % (Manual) Band Neutrophils % Lymphocytes % (Manual) Monocytes % (Manual) Platelet Estimate Anisocytosis (manual) pCO2 pO2 HCO3 ABG pH ABG Total CO2 ABG O2 Saturation ABG O2 Content ABG Base Excess ABG Hemoglobin ABG Carboxyhemoglobin POC ABG HHb (Measured) ABG Methemoglobin ABG O2 Capacity Boaz Test ABG Potassium A-a O2 Difference Hgb O2 Saturation Glucose Lactate Liter Flow Vent Mode Mechanical Rate FiO2 Tidal Volume PEEP Sodium Potassium 3.8 Chloride Carbon Dioxide Anion Gap BUN Creatinine Est GFR ( Amer) Est GFR (Non-Af Amer) POC Glucose (mg/dL) 265 H Random Glucose Calcium Total Bilirubin AST ALT Alkaline Phosphatase Total Protein Albumin Globulin Albumin/Globulin Ratio Arterial Blood Potassium C. difficile Ag & Toxin Negative 04/27/17 04/28/17 04/28/17 22:07 04:25 04:25 WBC 13.5 H RBC 4.66 Hgb 13.0 Hct 41.5 MCV 89.0 MCH 27.8 MCHC 31.3 L RDW 14.7 H Plt Count 235 MPV 11.9 H Neut % (Auto) 90.6 H Lymph % (Auto) 5.7 L Bladen % (Auto) 3.2 Eos % (Auto) 0.0 Baso % (Auto) 0.5 Neut # (Auto) 12.2 H Lymph # (Auto) 0.8 L Bladen # (Auto) 0.4 Eos # (Auto) 0.0 Baso # (Auto) 0.1 Neutrophils % (Manual) 92 H Band Neutrophils % 1 Lymphocytes % (Manual) 4 L Monocytes % (Manual) 3 Platelet Estimate Normal Anisocytosis (manual) Slight pCO2 36 pO2 85 HCO3 25.3 ABG pH 7.44 ABG Total CO2 25.6 ABG O2 Saturation 98.3 H ABG O2 Content 18.1 ABG Base Excess 0.6 ABG Hemoglobin 13.4 ABG Carboxyhemoglobin 1.5 POC ABG HHb (Measured) 1.7 ABG Methemoglobin 1.2 ABG O2 Capacity 18.4 Boaz Test Yes ABG Potassium A-a O2 Difference 227.0 Hgb O2 Saturation 95.5 Glucose Lactate Liter Flow 30 Vent Mode High flow lpm Mechanical Rate FiO2 50.0 Tidal Volume PEEP Sodium 146 Potassium 3.7 Chloride 108 H Carbon Dioxide 24 Anion Gap 18 BUN 17 Creatinine 0.7 Est GFR ( Amer) > 60 Est GFR (Non-Af Amer) > 60 POC Glucose (mg/dL) Random Glucose 340 H Calcium 9.4 Total Bilirubin AST ALT Alkaline Phosphatase Total Protein Albumin Globulin Albumin/Globulin Ratio Arterial Blood Potassium C. difficile Ag & Toxin 04/28/17 04/28/17 04/28/17 05:07 05:31 11:19 WBC RBC Hgb Hct MCV MCH MCHC RDW Plt Count MPV Neut % (Auto) Lymph % (Auto) Bladen % (Auto) Eos % (Auto) Baso % (Auto) Neut # (Auto) Lymph # (Auto) Bladen # (Auto) Eos # (Auto) Baso # (Auto) Neutrophils % (Manual) Band Neutrophils % Lymphocytes % (Manual) Monocytes % (Manual) Platelet Estimate Anisocytosis (manual) pCO2 35 pO2 73 L HCO3 25.4 ABG pH 7.45 ABG Total CO2 25.4 ABG O2 Saturation 97.2 ABG O2 Content 17.8 ABG Base Excess 0.7 ABG Hemoglobin 13.4 ABG Carboxyhemoglobin 1.7 H POC ABG HHb (Measured) 2.7 ABG Methemoglobin 1.2 ABG O2 Capacity 18.3 Boaz Test Yes ABG Potassium A-a O2 Difference 240.0 Hgb O2 Saturation 94.4 L Glucose Lactate Liter Flow 30 Vent Mode Hfov Mechanical Rate FiO2 50.0 Tidal Volume PEEP Sodium Potassium Chloride Carbon Dioxide Anion Gap BUN Creatinine Est GFR ( Amer) Est GFR (Non-Af Amer) POC Glucose (mg/dL) 259 H 160 H Random Glucose Calcium Total Bilirubin AST ALT Alkaline Phosphatase Total Protein Albumin Globulin Albumin/Globulin Ratio Arterial Blood Potassium C. difficile Ag & Toxin Microbiology 04/22/17 19:03 Blood-Venous Blood Culture - Final NO GROWTH AFTER 5 DAYS 04/22/17 19:03 Blood-Venous Gram Stain - Final TEST NOT PERFORMED 04/22/17 19:03 Blood-Venous Blood Culture - Final NO GROWTH AFTER 5 DAYS 04/22/17 19:03 Blood-Venous Gram Stain - Final TEST NOT PERFORMED 04/21/17 21:05 Blood-Venous Blood Culture - Final NO GROWTH AFTER 5 DAYS 04/21/17 21:05 Blood-Venous Gram Stain - Final TEST NOT PERFORMED 04/21/17 20:55 Blood-Venous Blood Culture - Final NO GROWTH AFTER 5 DAYS 04/21/17 20:55 Blood-Venous Gram Stain - Final TEST NOT PERFORMED 04/21/17 05:46 Trachasp Gram Stain - Final 04/21/17 05:46 Trachasp Sputum Culture - Final NORMAL ORAL LEIDA 04/21/17 05:45 Urine,Ndiaye Urine Culture - Final Yeast Species 04/20/17 07:34 Naris MRSA Culture (Admit) - Final MRSA NOT DETECTED 04/20/17 07:55 Urine,Clean Catch Urine Culture - Final Escherichia Coli 04/15/17 06:14 Blood-Venous Blood Culture - Final NO GROWTH AFTER 5 DAYS 04/15/17 06:14 Blood-Venous Gram Stain - Final TEST NOT PERFORMED 04/15/17 06:14 Blood-Venous Blood Culture - Final NO GROWTH AFTER 5 DAYS 04/15/17 06:14 Blood-Venous Gram Stain - Final TEST NOT PERFORMED 04/16/17 08:25 Naris MRSA Culture (Admit) - Final MRSA NOT DETECTED 04/12/17 21:15 Urine,Clean Catch Urine Culture - Final > 100,000 CFU/ML. MULTIPLE SPECIES. SUGGEST REPEAT SPECIMEM. Accession No. 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 FINDINGS: Interval removal ETT and NGT. LUNGS: Mild bibasilar right basilar atelectasis and or infiltrate with small right- sided effusion. Minimal left basilar atelectasis. PLEURA: As above. No apparent pneumothorax. CARDIOVASCULAR: Normal. OSSEOUS STRUCTURES: No significant abnormalities. VISUALIZED UPPER ABDOMEN: Normal. OTHER FINDINGS: None. IMPRESSION: Interval removal ETT and NGT. Mild bibasilar right basilar atelectasis and or infiltrate with small right- sided effusion. Minimal left basilar atelectasis. Assessment and Plan (1) CVA (cerebral vascular accident) Status: Acute (2) Type 2 diabetes mellitus with pressure callus Status: Acute (3) Aspiration pneumonia Status: Acute (4) UTI (urinary tract infection) Status: Acute - Assessment and Plan (Free Text) Assessment: A/P- 72 year old female with DM Ii, HTN was admitted with mental status change and was found to have acute ischemic stroke but was doing better and was transferred to step down unit, however, had FITTER ARMAMENT and for resp distress and is s/ p post intubation . remains extubated and off bipap. afebrile last 72 hours minimal rise in wbc , could be secondary to the solumedrol that pt. received yesterday as well. blood cx- neg x 4 UA- neg urine cx -e.coli pansensitive influenza- negative new diarrhea Plan- has completed 7 days of IV meropenem today. d/c meropnem yesterday. check one more stool c.diff . monitor asp precautions. monitor wbc. all above d/w ICU team. ICU time spent 45 min.
--- NOTE | 2017-04-28 12:21 | CP.PCM.PN ---
Subjective - Date & Time of Evaluation Date of Evaluation: 04/28/17 Time of Evaluation: 09:00 - Subjective Subjective: Patient remains extubated. Saturating 95% on nasal cannula at 3 liters. Pulling at nasal cannula; soft restraints added WBC increased from 11 to 13.5 today No movement to LUE HR tachycardic, 109 Hypertensive at 158/87 today Lethargic but able to follow simple commands. I/O balance -3520 Objective - Vital Signs/Intake and Output Vital Signs (last 24 hours): Temp Pulse Resp BP Pulse Ox 98.5 F 109 H 22 158/87 H 95 04/28/17 08:00 04/28/17 08:00 04/28/17 08:26 04/28/17 08:00 04/28/17 08:00 Intake and Output: 04/28/17 04/28/17 06:59 18:59 Intake Total 150 100 Output Total 1550 Balance -1400 100 - Medications Medications: Current Medications Acetaminophen (Tylenol 325mg Tab) 650 mg PO Q6 PRN PRN Reason: fever > 100.4 Last Admin: 04/24/17 04:23 Dose: 650 mg Acetaminophen (Tylenol 650 Mg Supp) 650 mg OK Q4 PRN PRN Reason: Fever >100.4 F Last Admin: 04/22/17 16:30 Dose: 650 mg Albuterol/Ipratropium (Duoneb 3 Mg/0.5 Mg (3 Ml) Ud) 3 ml INH RQ4 [facility] Last Admin: 04/28/17 11:28 Dose: 3 ml Apixaban (Eliquis) 2.5 mg PO BID [facility] PRN Reason: Protocol Last Admin: 04/28/17 08:58 Dose: Not Given Aspirin (Aspirin Chewable) 81 mg PO DAILY [facility] Last Admin: 04/28/17 08:57 Dose: Not Given Atorvastatin Calcium (Lipitor) 40 mg PO HS [facility] Last Admin: 04/27/17 21:57 Dose: Not Given Bacitracin (Bacitracin Oint) 1 applic TOP BID [facility] Last Admin: 04/28/17 08:57 Dose: 1 applic Dimethicone (Proshield Plus Skin Protectant) 1 applic TOP Q8 PRN PRN Reason: Dry skin Last Admin: 04/27/17 13:00 Dose: 1 applic Enalapril Maleate (Vasotec) 2.5 mg PO BID [facility] Last Admin: 04/28/17 08:59 Dose: Not Given Glipizide (Glucotrol Xl) 10 mg PO BRKDIN [facility] Last Admin: 04/28/17 08:58 Dose: Not Given Valproate Sodium 500 mg/ (Sodium Chloride) 105 mls @ 105 mls/hr IVPB Q12 [facility] PRN Reason: As Directed Last Admin: 04/28/17 08:58 Dose: 105 mls/hr Insulin Detemir (Levemir) 28 units SC HS [facility] Last Admin: 04/27/17 21:55 Dose: 28 units Insulin Human Regular (Humulin R) 0 units SC ACHS [facility] PRN Reason: Protocol Last Admin: 04/27/17 21:30 Dose: Not Given Pantoprazole Sodium (Protonix Inj) 40 mg IVP DAILY [facility] Last Admin: 04/28/17 08:59 Dose: 40 mg Repaglinide (Prandin) 1 mg PO TID [facility] Last Admin: 04/28/17 08:59 Dose: Not Given Sitagliptin Phosphate (Januvia) 50 mg PO BID [facility] Last Admin: 04/28/17 08:59 Dose: Not Given - Labs Labs: 04/28/17 04:25 04/28/17 04:25 PT 9.7 Seconds (9.8-13.1) L 04/12/17 21:15 INR 0.9 (0.9-1.2) 04/12/17 21:15 APTT 26.0 Seconds (25.6-37.1) 04/12/17 21:15 - Additional Findings Additional findings: Physical exam: Constitutional- awake, confused, but able to follow simple commands Head- NCAT, PERRL Eye- PERRL, EOMI ENT- normal exam, MMM. Neck- normal inspection, supple, no JVD Respiratory- CTAB, no wheezes rales rhonchi Cardiovascular- RRR, +S1, +S2 no MRG GI/Abdominal- normal bowel sounds, soft, no mass, no hsm Skin- warm, dry Extremities Exam- normal capillary refill, normal inspection Neurological Exam- alert, awake, oriented Psych- normal mood, normal affect Assessment and Plan - Assessment and Plan (Free Text) Plan: Assessment: 72 y/o F PMH DM, HTN, HLD brought to the ED with acutely worsening alteration of mental status and not as verbal . She presented with left facial droop and and some expressive aphasia.CT head was neg for acute CVA or bleed. Patient glucose was elevated 563. She was admitted initially in telemetry for further stroke work up and diabetes control . Neuro consulted.She was started on ASA, Statin, plavix,lovenox , Insulin and IVF .Her BP initially was kept elevated to allow permissive hypertension. MRI head showed acute stroke in right frontal lobe white matter 2/2 While in telemetry , the patient developed worsening BAILON and some left arm weakness. Patient became confused , agitated , restless ,not following any commands. She also started to have fever. Repeat MRI of the Brain : showed acute/ subacute stroke in right mcleod radiata and centrum ovale She was then transferred to ICU for close monitoring She continued to spike fevers for > 48 hours with no obvious source of infection and normal WBC count. All work up sent including CXR, UA,urine cx, blood cx were negative for infection so fever thought to be of central origin and no antibiotics were started 04/20 While in Tele , TEACHING DIETITIAN called for stridor and respiratory distress . She developed acute hypercapnic respiratory failure was intubated and transferred to ICU. CXR : new infiltrate, poss Asp PNA. 04/28 extubated after weaning trial and placed on NRM. placedon BIpap and treated for striodor with solumedrol IV, Duonebs and Racemic epi INH With weak cough reflex , unable to expectorate Now saturating well on 3 liters nasal cannula. HD stable 1. Acute hypercapnic respiratory failure Most likely secondary to aspiration pneumonia and patient's inability to handle secretions due to AMS/ CVA was intubated on MV PRVC AC mode 12/500/5/40% with ABG 37/77/26/7.4 Off propofol drip since yesterday, more awake, alert ,trying to communicate, following simple commands , moves the right arm and leg and left lower extremity. No movement to LUE CXR showed no active disease Metabolic alkalosis improved since yesterday and patient diuresed well with lasix and diamox given yesterday ( CO2 29 ) 04/27: Weaning protocol started as per sap bods developer and patient was extubated and placed initially on NRM FIO2 50 % Stridor noted after extubation , solumedrol 125 mg , racemic epi INH and Duonebs given and placed on BIPAP 02/15 RR 16 FIO2 50 % 04/28: Bipap removed, now saturating well on 3 liters nasal cannula Continues to have weak cough reflex and respiratory secretions Keep HOB elevated continue Duonebs RTC Keep NPO with tube feeds (Glucerna) . Speech eval discontinued antibiotics since patient has been afebrile 2. Progressive Acute ischemic stroke with AMS / lethargy worsening mental status, unable to handle secretions, aspirating , with acute respiratory failure requiring intubation initial presentation of patient was : acute stroke to right frontal lobe that progressed to right mcleod radiata and centrum semiovale stroke Continue ASA, statin, glycemic control, eliquis( empirically started by neuro ) Tylenol PRN for fever on Depakote 500 mg IV Q12 Cardio consulted for possible JUSTYNA - on hold due to pt's medical condition ( Dr Serrato wants pt to do JUSTYNA in [place] ) Pt empirically started on Eliquis Started BP control with low dose ACEI Enalapril 2.[address] head showed stable stroke Keep NPO w tube feedings: Speech therapy recommended STRICT NPO and will continue to follow for dysphagia tx and diet tolerance Start PT / OT 3. Suspected aspiration Pneumonia/ pneumonitis initially with CXR findings of new right lobe infiltrate prior to intubation and large secretions suctioned during intubation Received IV meropenem and Vanco-- d/c ID and pulmonary were consulted Blood c/s : neg so far Repeat CXR on 04/27 shows no active disease 4 .Uncontrolled DM with hyperglycemia Continue accuchecks, insulin coverage Increased Levemir to 28 units q hs, cont Glucotrol, prandin , Januvia Hgb A1c 16 NPO until speech eval post extubation 5. Hypertension permissive hypertension while stroke was evolving Started enalapril Low dose 6. Dyslipidemia c/w Atorvastatin 40 mg PO 7. Diabetic foot calluses podiatry consulted and following Doppler US of LE - good arterial flow 8. Diarrhea check c.diff 9 DVT ppx on eliquis
[2017-04-28] MEDS: Insulin Regular 100 units/ml SC SCH ×3 (13:10→22:00)
[2017-04-28] MEDS ORDERED: Sodium Chloride 3% for Inhalation 4 ML VIAL.NEB IH PRN (13:11)
[2017-04-28] MEDS ORDERED: Chlorhexidine Gluconate 1 APPL/PKT TP ONE (14:07)
[2017-04-28] MEDS ORDERED: Albumin Human 5% (12.5 gm/250 ml) IV ONE (15:36)
--- NOTE | 2017-04-28 18:53 | CP.PCM.PN ---
Subjective - Date & Time of Evaluation Date of Evaluation: 04/28/17 Time of Evaluation: 10:30 - Subjective Subjective: Respiratory failure, PNA awake , previuosly on BIPAP , on O2 NC now, follows commands , no respiratory distress Objective - Vital Signs/Intake and Output Vital Signs (last 24 hours): Temp Pulse Resp BP Pulse Ox 98.7 F 110 H 28 H 169/91 H 96 04/28/17 16:00 04/28/17 18:00 04/28/17 18:00 04/28/17 18:00 04/28/17 18:00 Intake and Output: 04/28/17 04/28/17 06:59 18:59 Intake Total 150 204 Output Total 1550 125 Balance -1400 79 - Medications Medications: Current Medications Acetaminophen (Tylenol 325mg Tab) 650 mg PO Q6 PRN PRN Reason: fever > 100.4 Last Admin: 04/24/17 04:23 Dose: 650 mg Acetaminophen (Tylenol 650 Mg Supp) 650 mg [place] Q4 PRN PRN Reason: Fever >100.4 F Last Admin: 04/22/17 16:30 Dose: 650 mg Albuterol/Ipratropium (Duoneb 3 Mg/0.5 Mg (3 Ml) Ud) 3 ml INH RQ6 [facility] Apixaban (Eliquis) 2.5 mg PO BID [facility] PRN Reason: Protocol Last Admin: 04/28/17 16:44 Dose: 2.5 mg Aspirin (Aspirin Chewable) 81 mg PO DAILY [facility] Last Admin: 04/28/17 08:57 Dose: Not Given Atorvastatin Calcium (Lipitor) 40 mg PO HS [facility] Last Admin: 04/27/17 21:57 Dose: Not Given Bacitracin (Bacitracin Oint) 1 applic TOP BID [facility] Last Admin: 04/28/17 16:44 Dose: 1 applic Dimethicone (Proshield Plus Skin Protectant) 1 applic TOP Q8 PRN PRN Reason: Dry skin Last Admin: 04/27/17 13:00 Dose: 1 applic Enalapril Maleate (Vasotec) 2.5 mg PO BID [facility] Last Admin: 04/28/17 16:46 Dose: 2.5 mg Glipizide (Glucotrol Xl) 10 mg PO BRKDIN [facility] Last Admin: 04/28/17 16:44 Dose: 10 mg Valproate Sodium 500 mg/ (Sodium Chloride) 105 mls @ 105 mls/hr IVPB Q12 [facility] PRN Reason: As Directed Last Admin: 04/28/17 08:58 Dose: 105 mls/hr Insulin Detemir (Levemir) 28 units SC HS [facility] Last Admin: 04/27/17 21:55 Dose: 28 units Insulin Human Regular (Humulin R) 0 units SC ACHS [facility] PRN Reason: Protocol Last Admin: 04/28/17 16:45 Dose: 1 units Pantoprazole Sodium (Protonix Inj) 40 mg IVP DAILY [facility] Last Admin: 04/28/17 08:59 Dose: 40 mg Repaglinide (Prandin) 1 mg PO TID [facility] Last Admin: 04/28/17 16:46 Dose: 1 mg Sitagliptin Phosphate (Januvia) 50 mg PO BID [facility] Last Admin: 04/28/17 16:45 Dose: 50 mg - Labs Labs: 04/28/17 04:25 04/28/17 04:25 PT 9.7 Seconds (9.8-13.1) L 04/12/17 21:15 INR 0.9 (0.9-1.2) 04/12/17 21:15 APTT 26.0 Seconds (25.6-37.1) 04/12/17 21:15 - Constitutional Appears: Chronically Ill - Head Exam Head Exam: NORMAL INSPECTION - Eye Exam Eye Exam: PERRL - ENT Exam ENT Exam: Normal Exam Additional comments: On High flow O2 - Respiratory Exam Respiratory Exam: Rhonchi (scattered at bases) - Cardiovascular Exam Cardiovascular Exam: REGULAR RHYTHM - GI/Abdominal Exam GI & Abdominal Exam: Soft, Normal Bowel Sounds - Extremities Exam Extremities Exam: Normal Inspection - Back Exam Back Exam: NORMAL INSPECTION - Neurological Exam Neurological Exam: Alert, Awake Additional comments: awake , follows commands , not moving LUE , limited movement LLE on command - Psychiatric Exam Additional comments: calm - Skin Skin Exam: Warm Assessment and Plan (1) Respiratory failure Status: Resolved (2) Aspiration pneumonia Status: Resolved (3) CVA (cerebral vascular accident) Status: Acute - Assessment and Plan (Free Text) Plan: off Merren as per ID, completed treatment for Aspiration PNA, on O2 NC Respiratory Failure resolved, CVA with L hemiparesis , continue O2 NC and DuoNeb ICU Time: 37 min.
[2017-04-28] MEDS: Insulin Detemir 100 Units/ml Inj SC SCH (21:28)
[2017-04-29] MEDS: Albuterol-Ipratrop 3 mg / 0.5 (3 ml) UD INH SCH ×2 (01:10→09:07)
[2017-04-29 05:23] LABS: ABG ALLEN TEST YES; ARTERIAL BLOOD GAS HCO3 26.7 mmol/L (21-28); ARTERIAL BLOOD GAS HEMOGLOBIN 12.1 g/dL (11.7-17.4); ARTERIAL BLOOD GAS O2 CAPACITY 16.6 mL/dL (16-24); ARTERIAL BLOOD GAS O2 CONTENT 16.1 ML/dL (15-23); ARTERIAL BLOOD GAS O2 SAT 96.9 % (95-98); ARTERIAL BLOOD GAS PCO2 38 mm/Hg (35-45); ARTERIAL BLOOD GAS PH 7.45 (7.35-7.45); ARTERIAL BLOOD GAS PO2 73 mm/Hg (80-100); ARTERIAL BLOOD GAS TCO2 27.6 mmol/L (22-28)
[2017-04-29 05:37] LABS: HEMOGLOBIN 12.1 g/dL (12.0-16.0); MEAN CELL VOLUME 88.8 fl (81.0-99.0); MEAN CORPUSCULAR HEMOGLOBIN 28.2 pg (27.0-31.0); MEAN CORPUSCULAR HGB CONC 31.8 g/dL (33.0-37.0); RBC 4.27 Mil/uL (3.80-5.20); RED CELL DISTRIBUTION WIDTH 14.5 % (11.5-14.5); WHITE BLOOD COUNT 9.9 K/uL (4.8-10.8)
[2017-04-29 05:44] LABS: BLOOD UREA NITROGEN 32 mg/dl (7-17); CALCIUM 9.1 mg/dL (8.4-10.2); GFR AFRICAN-AMERICAN > 60; GFR NON-AFRICAN AMERICAN > 60
[2017-04-29] MEDS: Insulin Regular 100 units/ml SC SCH ×4 (06:54→22:00)
--- NOTE | 2017-04-29 07:50 | CP.CCUPN ---
<Sharyn Hidalgo - Last Filed: 04/29/17 11:52> CCU Subjective - Physician Review Subjective (Free Text): 04/29/17 09:48 This is a 72 y/o F with PMHx of HTN, HLD, DM, CAD and bilateral hallus ulceration. Patient was brought in via EMS to ER on 04/12 for evaluation of altered mental status, onset a few months ago. Patient was admitted to the telemetry unit with acute cerebral vascular accident. On 04/17 patient developed change in mental status/left upper extremity weakness, CODE STROKE was called and was transferred to ICU. On 04/20 patient was transferred back to Telemetry unit. Patient was seen and examined with turnaround engineer attending during ICU round this morning. Patient is awake, open eyes, answering yes/no questions moving her head. Continue with expressive aphasia. Following simple commands. Patient continues having nonbloody diarrheas, C-diff x 2 negative. Yesterday failed swallow eval and NG was placed by nurse and started on Glucerna feeding. Critical Care Time Spent (in minutes): 30 CCU Objective - Vital Signs / Intake & Output Vital Signs (Last 4 hours): Vital Signs Temp Pulse Resp BP Pulse Ox 04/29/17 06:00 99.1 F 115 H 28 H 155/87 H 96 04/29/17 04:06 99.1 F 04/29/17 04:00 109 H 23 162/77 H 97 Intake and Output (Last 8hrs): Intake & Output 04/28/17 04/29/17 04/29/17 22:59 06:59 14:59 Intake Total 376 440 Output Total 125 245 Balance 251 195 Intake: IV 36 10 Intake, Piggyback 150 Tube Feeding 140 380 Free Water Flush 50 50 Output: Gastric Amount 0 20 Right Nares 0 20 Urine 125 200 Urethral (Ndiaye) 125 200 Stool 25 - Physical Exam Head: Positive for: Atraumatic, Normocephalic Pupils: Positive for: PERRL Mouth: Positive for: Dry Respiratory/Chest: Positive for: Clear to Auscultation, Rhonchi (diffuse and bilateral). Negative for: Respiratory Distress, Wheezes, Decreased Breath Sounds, Rales Cardiovascular: Positive for: Regular Rate and Rhythm, Normal S1, S2, Tachycardic Abdomen: Positive for: Normal Bowel Sounds. Negative for: Tenderness, Distention, Guarding Rectal: Positive for: Other (rectal tube in place) Upper Extremity: Positive for: Capillary Refill < 2s. Negative for: Cyanosis Lower Extremity: Negative for: Edema, CALF TENDERNESS Neurological: Positive for: Other (following simple commands) Skin: Positive for: Warm, Dry, Pale Psychiatric: Positive for: Alert - Medications Active Medications: Active Medications Generic Name Dose Route Start Last Admin Trade Name Freq PRN Reason Stop Dose Admin Acetaminophen 650 mg 04/15/17 23:34 04/29/17 04:06 Tylenol 325mg Tab PO 650 mg Q6 PRN Administration fever > 100.4 Acetaminophen 650 mg 04/21/17 20:53 04/22/17 16:30 Tylenol 650 Mg Supp OH 650 mg Q4 PRN Administration Fever >100.4 F Albuterol/Ipratropium 3 ml 04/28/17 14:00 04/29/17 01:10 Duoneb 3 Mg/0.5 Mg (3 Ml) Ud INH 3 ml RQ6 BRIAN Administration Apixaban 2.5 mg 04/17/17 17:00 04/28/17 16:44 Eliquis PO 2.5 mg BID BRIAN Administration Protocol Aspirin 81 mg 04/19/17 13:00 04/28/17 08:57 Aspirin Chewable PO Not Given DAILY BRIAN Atorvastatin Calcium 40 mg 04/13/17 22:00 04/28/17 21:25 Lipitor PO 40 mg HS BRIAN Administration Bacitracin 1 applic 04/16/17 09:00 04/28/17 16:44 Bacitracin Oint TOP 1 applic BID BRIAN Administration Dimethicone 1 applic 04/27/17 11:37 04/27/17 13:00 Proshield Plus Skin Protectant TOP 1 applic Q8 PRN Administration Dry skin Enalapril Maleate 2.5 mg 04/19/17 17:00 04/28/17 16:46 Vasotec PO 2.5 mg BID BRIAN Administration Glipizide 10 mg 04/14/17 08:00 04/28/17 16:44 Glucotrol Xl PO 10 mg BRKDIN BRIAN Administration Valproate Sodium 500 mg/ 105 mls @ 105 mls/hr 04/17/17 21:00 04/28/17 20:25 Sodium Chloride IVPB 105 mls/hr Q12 BRIAN Administration As Directed Insulin Detemir 28 units 04/24/17 17:16 04/28/17 21:28 Levemir SC 28 units HS BRIAN Administration Insulin Human Regular 0 units 04/13/17 07:30 04/29/17 06:54 Humulin R SC 3 units ACHS BRIAN Administration Protocol Memantine 5 mg 04/29/17 09:00 Namenda PO DAILY BRIAN Pantoprazole Sodium 40 mg 04/22/17 09:00 04/28/17 08:59 Protonix Inj IVP 40 mg DAILY BRIAN Administration Repaglinide 1 mg 04/14/17 09:00 04/28/17 16:46 Prandin PO 1 mg TID BRIAN Administration Sitagliptin Phosphate 50 mg 04/14/17 09:00 04/28/17 16:45 Januvia PO 50 mg BID BRIAN Administration - Patient Studies Lab Studies: Lab Studies 04/29/17 04/29/17 04/29/17 Range/Units 05:55 05:05 04:30 WBC (4.8-10.8) K/uL RBC (3.80-5.20) Mil/uL Hgb (12.0-16.0) g/dL Hct (34.0-47.0) % MCV (81.0-99.0) fl MCH (27.0-31.0) pg MCHC (33.0-37.0) g/dL RDW (11.5-14.5) % Plt Count (130-400) K/uL Neutrophils % (Manual) (42-75) % Band Neutrophils % (0-2) % Lymphocytes % (Manual) (20-50) % Monocytes % (Manual) (0-10) % Platelet Estimate (NORMAL) Anisocytosis (manual) pCO2 38 (35-45) mm/Hg pO2 73 L (80-100) mm/Hg HCO3 26.7 (21-28) mmol/L ABG pH 7.45 (7.35-7.45) ABG Total CO2 27.6 (22-28) mmol/L ABG O2 Saturation 96.9 (95-98) % ABG O2 Content 16.1 (15-23) ML/dL ABG Base Excess 2.4 (-2.0-3.0) mmol/L ABG Hemoglobin 12.1 (11.7-17.4) g/dL ABG Carboxyhemoglobin 1.5 (0.5-1.5) % POC ABG HHb (Measured) 3.0 (0.0-5.0) % ABG Methemoglobin 1.3 (0.0-3.0) % ABG O2 Capacity 16.6 (16-24) mL/dL Boaz Test Yes A-a O2 Difference 108.0 mm/Hg Hgb O2 Saturation 94.1 L (95.0-98.0) % Vent Mode N/c FiO2 32.0 % Sodium 149 H (132-148) mmol/l Potassium 3.5 L (3.6-5.0) MMOL/L Chloride 111 H (98-107) mmol/L Carbon Dioxide 24 (22-30) mmol/L Anion Gap 18 (10-20) BUN 32 H (7-17) mg/dl Creatinine 0.6 L (0.7-1.2) mg/dl Est GFR ( Amer) > 60 Est GFR (Non-Af Amer) > 60 POC Glucose (mg/dL) 252 H (65-110) mg/dL Random Glucose 265 H (65-105) mg/dL Calcium 9.1 (8.4-10.2) mg/dL C. difficile Ag & Toxin (NEGATIVE) 04/29/17 04/28/17 04/28/17 Range/Units 04:30 21:10 21:03 WBC 9.9 (4.8-10.8) K/uL RBC 4.27 (3.80-5.20) Mil/uL Hgb 12.1 (12.0-16.0) g/dL Hct 38.0 (34.0-47.0) % MCV 88.8 (81.0-99.0) fl MCH 28.2 (27.0-31.0) pg MCHC 31.8 L (33.0-37.0) g/dL RDW 14.5 (11.5-14.5) % Plt Count 279 (130-400) K/uL Neutrophils % (Manual) (42-75) % Band Neutrophils % (0-2) % Lymphocytes % (Manual) (20-50) % Monocytes % (Manual) (0-10) % Platelet Estimate (NORMAL) Anisocytosis (manual) pCO2 (35-45) mm/Hg pO2 (80-100) mm/Hg HCO3 (21-28) mmol/L ABG pH (7.35-7.45) ABG Total CO2 (22-28) mmol/L ABG O2 Saturation (95-98) % ABG O2 Content (15-23) ML/dL ABG Base Excess (-2.0-3.0) mmol/L ABG Hemoglobin (11.7-17.4) g/dL ABG Carboxyhemoglobin (0.5-1.5) % POC ABG HHb (Measured) (0.0-5.0) % ABG Methemoglobin (0.0-3.0) % ABG O2 Capacity (16-24) mL/dL Boaz Test A-a O2 Difference mm/Hg Hgb O2 Saturation (95.0-98.0) % Vent Mode FiO2 % Sodium (132-148) mmol/l Potassium (3.6-5.0) MMOL/L Chloride (98-107) mmol/L Carbon Dioxide (22-30) mmol/L Anion Gap (10-20) BUN (7-17) mg/dl Creatinine (0.7-1.2) mg/dl Est GFR ( Amer) Est GFR (Non-Af Amer) POC Glucose (mg/dL) 206 H (65-110) mg/dL Random Glucose (65-105) mg/dL Calcium (8.4-10.2) mg/dL C. difficile Ag & Toxin Negative (NEGATIVE) 04/28/17 04/28/17 04/28/17 Range/Units 16:39 11:19 04:25 WBC (4.8-10.8) K/uL RBC (3.80-5.20) Mil/uL Hgb (12.0-16.0) g/dL Hct (34.0-47.0) % MCV (81.0-99.0) fl MCH (27.0-31.0) pg MCHC (33.0-37.0) g/dL RDW (11.5-14.5) % Plt Count (130-400) K/uL Neutrophils % (Manual) 92 H (42-75) % Band Neutrophils % 1 (0-2) % Lymphocytes % (Manual) 4 L (20-50) % Monocytes % (Manual) 3 (0-10) % Platelet Estimate Normal (NORMAL) Anisocytosis (manual) Slight pCO2 (35-45) mm/Hg pO2 (80-100) mm/Hg HCO3 (21-28) mmol/L ABG pH (7.35-7.45) ABG Total CO2 (22-28) mmol/L ABG O2 Saturation (95-98) % ABG O2 Content (15-23) ML/dL ABG Base Excess (-2.0-3.0) mmol/L ABG Hemoglobin (11.7-17.4) g/dL ABG Carboxyhemoglobin (0.5-1.5) % POC ABG HHb (Measured) (0.0-5.0) % ABG Methemoglobin (0.0-3.0) % ABG O2 Capacity (16-24) mL/dL Boaz Test A-a O2 Difference mm/Hg Hgb O2 Saturation (95.0-98.0) % Vent Mode FiO2 % Sodium (132-148) mmol/l Potassium (3.6-5.0) MMOL/L Chloride (98-107) mmol/L Carbon Dioxide (22-30) mmol/L Anion Gap (10-20) BUN (7-17) mg/dl Creatinine (0.7-1.2) mg/dl Est GFR ( Amer) Est GFR (Non-Af Amer) POC Glucose (mg/dL) 172 H 160 H (65-110) mg/dL Random Glucose (65-105) mg/dL Calcium (8.4-10.2) mg/dL C. difficile Ag & Toxin (NEGATIVE) Laboratory Results - last 24 hr 04/28/17 04/28/17 04/28/17 04:25 11:19 16:39 WBC RBC Hgb Hct MCV MCH MCHC RDW Plt Count Neutrophils % (Manual) 92 H Band Neutrophils % 1 Lymphocytes % (Manual) 4 L Monocytes % (Manual) 3 Platelet Estimate Normal Anisocytosis (manual) Slight pCO2 pO2 HCO3 ABG pH ABG Total CO2 ABG O2 Saturation ABG O2 Content ABG Base Excess ABG Hemoglobin ABG Carboxyhemoglobin POC ABG HHb (Measured) ABG Methemoglobin ABG O2 Capacity Boaz Test A-a O2 Difference Hgb O2 Saturation Vent Mode FiO2 Sodium Potassium Chloride Carbon Dioxide Anion Gap BUN Creatinine Est GFR ( Amer) Est GFR (Non-Af Amer) POC Glucose (mg/dL) 160 H 172 H Random Glucose Calcium C. difficile Ag & Toxin 04/28/17 04/28/17 04/29/17 21:03 21:10 04:30 WBC 9.9 RBC 4.27 Hgb 12.1 Hct 38.0 MCV 88.8 MCH 28.2 MCHC 31.8 L RDW 14.5 Plt Count 279 Neutrophils % (Manual) Band Neutrophils % Lymphocytes % (Manual) Monocytes % (Manual) Platelet Estimate Anisocytosis (manual) pCO2 pO2 HCO3 ABG pH ABG Total CO2 ABG O2 Saturation ABG O2 Content ABG Base Excess ABG Hemoglobin ABG Carboxyhemoglobin POC ABG HHb (Measured) ABG Methemoglobin ABG O2 Capacity Boaz Test A-a O2 Difference Hgb O2 Saturation Vent Mode FiO2 Sodium Potassium Chloride Carbon Dioxide Anion Gap BUN Creatinine Est GFR ( Amer) Est GFR (Non-Af Amer) POC Glucose (mg/dL) 206 H Random Glucose Calcium C. difficile Ag & Toxin Negative 04/29/17 04/29/17 04/29/17 04:30 05:05 05:55 WBC RBC Hgb Hct MCV MCH MCHC RDW Plt Count Neutrophils % (Manual) Band Neutrophils % Lymphocytes % (Manual) Monocytes % (Manual) Platelet Estimate Anisocytosis (manual) pCO2 38 pO2 73 L HCO3 26.7 ABG pH 7.45 ABG Total CO2 27.6 ABG O2 Saturation 96.9 ABG O2 Content 16.1 ABG Base Excess 2.4 ABG Hemoglobin 12.1 ABG Carboxyhemoglobin 1.5 POC ABG HHb (Measured) 3.0 ABG Methemoglobin 1.3 ABG O2 Capacity 16.6 Boaz Test Yes A-a O2 Difference 108.0 Hgb O2 Saturation 94.1 L Vent Mode N/c FiO2 32.0 Sodium 149 H Potassium 3.5 L Chloride 111 H Carbon Dioxide 24 Anion Gap 18 BUN 32 H Creatinine 0.6 L Est GFR ( Amer) > 60 Est GFR (Non-Af Amer) > 60 POC Glucose (mg/dL) 252 H Random Glucose 265 H Calcium 9.1 C. difficile Ag & Toxin Fingerstick Blood Sugar Results: 252 Assessment/Plan - Assessment and Plan (Free Text) Plan: Acute Ischemic Stroke -with aphasia, and LUE weakness -On aspirin 81 mg daily -On atorvastatin 40 mg daily -On Eliquis( empirically started by neuro ) -c/w glycemic control -last Head CT w/o contrast on 04/24/17 reported as no evidence of acute infarct. Subacute infarct right mcleod radiata/centrum semiovale. No acute hemorrhage -Repeat MRI of the Brain : showed acute/ subacute stroke in right mcleod radiata and centrum ovale -Neurology was consulted by primary team -c/w PT/OT treatment -Patient is a good candidate for acute rehab. Acute Respiratory Failure -likely 2/2 aspiration Pneumonia vs HAP -resolving -afebrile, no leukocytosis -successful extubated on 04/27/17 -ABG today showed no hypercapnia and PH normal -c/w oxygen via NC, normal oxygeb sat in 3 LPM -Repeat Blood Cx, Urine Cx, and sputum Cx on 04/28/17 Pending -Decrease duoneb from Q6 to Q8 -No in antibiotics at this time as per ID financial management consultant -CXR on 04/28/17 reported as mild right basilar atelectasis or infiltrate, with small pleural effusion -Pulmonology on consult. Rec are appreciated -ID was consulted. Rec are appreciated. Diet -c/w Glucernal feeding a@ 50 ml/hr -Give free water 250 ml Q6 hours -repeat swallow evaluation today -If fails will repeat eval daily until tuesday. If patient continues to fail will consider GI consult for PEG tube placement Diarrheas -was on antibiotics -C-diff x 2 negative Leukocytosis resolved -no leukocytosis today -WBC wnl -afebrile -completed antibiotics as per ID -could be 2/2 steriod given yesterda Hypokalemia -mild, K+ 3.5 -replace potassium -f/u K+ Diabetes Mellitus type2 -c/w glycemic control -Hgb A1c 16 Hypertension -c/w current HTN management s/p stroke Diabetic foot calluses -Podiatry on consult by primary team -Podiatry recs are appreciated Prophylaxis -DVT prophylaxis : on SCDs and Eliquis 2.5 mg BID -stress ulcer prophylaxis: Protonix 40 mg IV daily -pressure ulcers precautions - Date & Time Date: 04/29/17 Time: 08:10 <Hadley Tyler - Last Filed: 04/29/17 14:11> CCU Objective - Vital Signs / Intake & Output Intake and Output (Last 8hrs): Intake & Output 04/28/17 04/29/17 04/29/17 22:59 06:59 14:59 Intake Total 376 440 500 Output Total 125 245 Balance 251 195 500 Intake: IV 36 10 Intake, Piggyback 150 100 Tube Feeding 140 380 150 Free Water Flush 50 50 250 Output: Gastric Amount 0 20 Right Nares 0 20 Urine 125 200 Urethral (Ndiaye) 125 200 Stool 25 - Medications Active Medications: Active Medications Generic Name Dose Route Start Last Admin Trade Name Freq PRN Reason Stop Dose Admin Acetaminophen 650 mg 04/15/17 23:34 04/29/17 04:06 Tylenol 325mg Tab PO 650 mg Q6 PRN Administration fever > 100.4 Acetaminophen 650 mg 04/21/17 20:53 04/22/17 16:30 Tylenol 650 Mg Supp OH 650 mg Q4 PRN Administration Fever >100.4 F Apixaban 2.5 mg 04/17/17 17:00 04/29/17 08:22 Eliquis PO 2.5 mg BID BRIAN Administration Protocol Aspirin 81 mg 04/19/17 13:00 04/29/17 08:24 Aspirin Chewable PO 81 mg DAILY BRIAN Administration Atorvastatin Calcium 40 mg 04/13/17 22:00 04/28/17 21:25 Lipitor PO 40 mg HS BRIAN Administration Bacitracin 1 applic 04/16/17 09:00 04/29/17 08:24 Bacitracin Oint TOP 1 applic BID BRIAN Administration Dimethicone 1 applic 04/27/17 11:37 04/29/17 08:19 Proshield Plus Skin Protectant TOP 1 applic Q8 PRN Administration Dry skin Donepezil HCl 5 mg 04/29/17 22:00 Aricept PO HS BRIAN Enalapril Maleate 2.5 mg 04/19/17 17:00 04/29/17 08:20 Vasotec PO 2.5 mg BID BRIAN Administration Glipizide 10 mg 04/14/17 08:00 04/29/17 08:18 Glucotrol Xl PO 10 mg BRKDIN BRIAN Administration Valproate Sodium 500 mg/ 105 mls @ 105 mls/hr 04/17/17 21:00 04/29/17 08:20 Sodium Chloride IVPB 105 mls/hr Q12 BRIAN Administration As Directed Insulin Detemir 28 units 04/24/17 17:16 04/28/17 21:28 Levemir SC 28 units HS BRIAN Administration Insulin Human Regular 0 units 04/13/17 07:30 04/29/17 11:13 Humulin R SC 2 units ACHS BRIAN Administration Protocol Ipratropium Galt 0.5 mg 04/29/17 16:00 Atrovent IH RQ8 BRIAN Levalbuterol HCl 0.63 mg 04/29/17 16:00 Xopenex INH RQ8 BRIAN Pantoprazole Sodium 40 mg 04/22/17 09:00 04/29/17 08:18 Protonix Inj IVP 40 mg DAILY BRIAN Administration Repaglinide 1 mg 04/14/17 09:00 04/29/17 13:03 Prandin PO 1 mg TID BRIAN Administration Sitagliptin Phosphate 50 mg 04/14/17 09:00 04/29/17 08:19 Januvia PO 50 mg BID BRIAN Administration - Patient Studies Lab Studies: Lab Studies 04/29/17 04/29/17 04/29/17 Range/Units 11:12 05:55 05:05 WBC (4.8-10.8) K/uL RBC (3.80-5.20) Mil/uL Hgb (12.0-16.0) g/dL Hct (34.0-47.0) % MCV (81.0-99.0) fl MCH (27.0-31.0) pg MCHC (33.0-37.0) g/dL RDW (11.5-14.5) % Plt Count (130-400) K/uL pCO2 38 (35-45) mm/Hg pO2 73 L (80-100) mm/Hg HCO3 26.7 (21-28) mmol/L ABG pH 7.45 (7.35-7.45) ABG Total CO2 27.6 (22-28) mmol/L ABG O2 Saturation 96.9 (95-98) % ABG O2 Content 16.1 (15-23) ML/dL ABG Base Excess 2.4 (-2.0-3.0) mmol/L ABG Hemoglobin 12.1 (11.7-17.4) g/dL ABG Carboxyhemoglobin 1.5 (0.5-1.5) % POC ABG HHb (Measured) 3.0 (0.0-5.0) % ABG Methemoglobin 1.3 (0.0-3.0) % ABG O2 Capacity 16.6 (16-24) mL/dL Boaz Test Yes A-a O2 Difference 108.0 mm/Hg Hgb O2 Saturation 94.1 L (95.0-98.0) % Vent Mode N/c FiO2 32.0 % Sodium (132-148) mmol/l Potassium (3.6-5.0) MMOL/L Chloride (98-107) mmol/L Carbon Dioxide (22-30) mmol/L Anion Gap (10-20) BUN (7-17) mg/dl Creatinine (0.7-1.2) mg/dl Est GFR ( Amer) Est GFR (Non-Af Amer) POC Glucose (mg/dL) 213 H 252 H (65-110) mg/dL Random Glucose (65-105) mg/dL Calcium (8.4-10.2) mg/dL C. difficile Ag & Toxin (NEGATIVE) 04/29/17 04/29/17 04/28/17 Range/Units 04:30 04:30 21:10 WBC 9.9 (4.8-10.8) K/uL RBC 4.27 (3.80-5.20) Mil/uL Hgb 12.1 (12.0-16.0) g/dL Hct 38.0 (34.0-47.0) % MCV 88.8 (81.0-99.0) fl MCH 28.2 (27.0-31.0) pg MCHC 31.8 L (33.0-37.0) g/dL RDW 14.5 (11.5-14.5) % Plt Count 279 (130-400) K/uL pCO2 (35-45) mm/Hg pO2 (80-100) mm/Hg HCO3 (21-28) mmol/L ABG pH (7.35-7.45) ABG Total CO2 (22-28) mmol/L ABG O2 Saturation (95-98) % ABG O2 Content (15-23) ML/dL ABG Base Excess (-2.0-3.0) mmol/L ABG Hemoglobin (11.7-17.4) g/dL ABG Carboxyhemoglobin (0.5-1.5) % POC ABG HHb (Measured) (0.0-5.0) % ABG Methemoglobin (0.0-3.0) % ABG O2 Capacity (16-24) mL/dL Boaz Test A-a O2 Difference mm/Hg Hgb O2 Saturation (95.0-98.0) % Vent Mode FiO2 % Sodium 149 H (132-148) mmol/l Potassium 3.5 L (3.6-5.0) MMOL/L Chloride 111 H (98-107) mmol/L Carbon Dioxide 24 (22-30) mmol/L Anion Gap 18 (10-20) BUN 32 H (7-17) mg/dl Creatinine 0.6 L (0.7-1.2) mg/dl Est GFR ( Amer) > 60 Est GFR (Non-Af Amer) > 60 POC Glucose (mg/dL) (65-110) mg/dL Random Glucose 265 H (65-105) mg/dL Calcium 9.1 (8.4-10.2) mg/dL C. difficile Ag & Toxin Negative (NEGATIVE) 04/28/17 04/28/17 Range/Units 21:03 16:39 WBC (4.8-10.8) K/uL RBC (3.80-5.20) Mil/uL Hgb (12.0-16.0) g/dL Hct (34.0-47.0) % MCV (81.0-99.0) fl MCH (27.0-31.0) pg MCHC (33.0-37.0) g/dL RDW (11.5-14.5) % Plt Count (130-400) K/uL pCO2 (35-45) mm/Hg pO2 (80-100) mm/Hg HCO3 (21-28) mmol/L ABG pH (7.35-7.45) ABG Total CO2 (22-28) mmol/L ABG O2 Saturation (95-98) % ABG O2 Content (15-23) ML/dL ABG Base Excess (-2.0-3.0) mmol/L ABG Hemoglobin (11.7-17.4) g/dL ABG Carboxyhemoglobin (0.5-1.5) % POC ABG HHb (Measured) (0.0-5.0) % ABG Methemoglobin (0.0-3.0) % ABG O2 Capacity (16-24) mL/dL Boaz Test A-a O2 Difference mm/Hg Hgb O2 Saturation (95.0-98.0) % Vent Mode FiO2 % Sodium (132-148) mmol/l Potassium (3.6-5.0) MMOL/L Chloride (98-107) mmol/L Carbon Dioxide (22-30) mmol/L Anion Gap (10-20) BUN (7-17) mg/dl Creatinine (0.7-1.2) mg/dl Est GFR ( Amer) Est GFR (Non-Af Amer) POC Glucose (mg/dL) 206 H 172 H (65-110) mg/dL Random Glucose (65-105) mg/dL Calcium (8.4-10.2) mg/dL C. difficile Ag & Toxin (NEGATIVE) Laboratory Results - last 24 hr 04/28/17 04/28/17 04/28/17 16:39 21:03 21:10 WBC RBC Hgb Hct MCV MCH MCHC RDW Plt Count pCO2 pO2 HCO3 ABG pH ABG Total CO2 ABG O2 Saturation ABG O2 Content ABG Base Excess ABG Hemoglobin ABG Carboxyhemoglobin POC ABG HHb (Measured) ABG Methemoglobin ABG O2 Capacity Boaz Test A-a O2 Difference Hgb O2 Saturation Vent Mode FiO2 Sodium Potassium Chloride Carbon Dioxide Anion Gap BUN Creatinine Est GFR ( Amer) Est GFR (Non-Af Amer) POC Glucose (mg/dL) 172 H 206 H Random Glucose Calcium C. difficile Ag & Toxin Negative 04/29/17 04/29/17 04/29/17 04:30 04:30 05:05 WBC 9.9 RBC 4.27 Hgb 12.1 Hct 38.0 MCV 88.8 MCH 28.2 MCHC 31.8 L RDW 14.5 Plt Count 279 pCO2 38 pO2 73 L HCO3 26.7 ABG pH 7.45 ABG Total CO2 27.6 ABG O2 Saturation 96.9 ABG O2 Content 16.1 ABG Base Excess 2.4 ABG Hemoglobin 12.1 ABG Carboxyhemoglobin 1.5 POC ABG HHb (Measured) 3.0 ABG Methemoglobin 1.3 ABG O2 Capacity 16.6 Boaz Test Yes A-a O2 Difference 108.0 Hgb O2 Saturation 94.1 L Vent Mode N/c FiO2 32.0 Sodium 149 H Potassium 3.5 L Chloride 111 H Carbon Dioxide 24 Anion Gap 18 BUN 32 H Creatinine 0.6 L Est GFR ( Amer) > 60 Est GFR (Non-Af Amer) > 60 POC Glucose (mg/dL) Random Glucose 265 H Calcium 9.1 C. difficile Ag & Toxin 04/29/17 04/29/17 05:55 11:12 WBC RBC Hgb Hct MCV MCH MCHC RDW Plt Count pCO2 pO2 HCO3 ABG pH ABG Total CO2 ABG O2 Saturation ABG O2 Content ABG Base Excess ABG Hemoglobin ABG Carboxyhemoglobin POC ABG HHb (Measured) ABG Methemoglobin ABG O2 Capacity Boaz Test A-a O2 Difference Hgb O2 Saturation Vent Mode FiO2 Sodium Potassium Chloride Carbon Dioxide Anion Gap BUN Creatinine Est GFR ( Amer) Est GFR (Non-Af Amer) POC Glucose (mg/dL) 252 H 213 H Random Glucose Calcium C. difficile Ag & Toxin Attending/Attestation - Attestation I have personally seen and examined this patient.: Yes I have fully participated in the care of the patient.: Yes I have reviewed all pertinent clinical information: Yes Notes (Text): 04/29/17 14:09 I have seen and examined the patient. Medical records, lab studies, and imaging were reviewed by me and a management plan was formulated on multidisciplinary rounds with resident Dr. Hidalgo. I agree with their above documented assessment and plan. Patient is not improving clinically. Her lungs are still opacified bilaterally and diffusely. No longer in ARDS as paO2/Fio2 much improved. She is now off of pressor with albumin drip. Renal function not improving and dialysis not improving pulmonary mechanics, she is still failing PS trials. Will contiue to dialyze for one more day. Spoke with family, that trach placement would be a bad option for this patient because usp she will most likely not recover. She is an 89yo F. in acute oliguric renal failure with a high mortality risk. They are ok with terminal extubation and comfort care if there is no significant clinical improvement by Tuesday. Critical Care Time 35 minutes. Multi-disciplinary rounds were performed with house staff, nursing, speech therapy, respiratory therapy, pharmacy and nutrition with integrated input from the primary team/attending and other consulting services. The documented time is cumulative and includes review of patient data/exams/labs/chart review and examination of the patient on rounds and throughout the day; time is exclusive of any procedures or teaching time.
[2017-04-29] MEDS: GlipiZIDE 10 mg SR Tab PO SCH ×2 (08:18→16:14)
[2017-04-29] MEDS: Proshield Plus GEL TOP PRN (08:19)
[2017-04-29] MEDS: Valproate 500 MG in Sodium Chloride 0.9% 100 ML IVPB SCH ×2 (08:20→21:09)
[2017-04-29] MEDS: Bacitracin OINT 15GM TOP SCH ×2 (08:24→16:15)
[2017-04-29] MEDS ORDERED: Potassium Chloride 20 mEq/15 ml LIQ UD PO ONE (09:04)
--- NOTE | 2017-04-29 09:26 | CP.PCM.PN ---
Subjective - Date & Time of Evaluation Date of Evaluation: 04/29/17 Time of Evaluation: 09:22 - Subjective Subjective: MeBrooks Black was seen and examined at the bedside in ICU. She is drowsy, restless , and able to follow commands with repetitive asking. She response to tactile stimuli with facial grimacing. She has NGT for feeding and medication purposes. She has bilateral wrist restraints for patient safety. Her latest CO2 - 38 and Po2-73 on nasal cannula. Na- 149, glucose-252. There was no untoward events overnight. Objective - Vital Signs/Intake and Output Vital Signs (last 24 hours): Temp Pulse Resp BP Pulse Ox 100.1 F H 108 H 23 181/83 H 96 04/29/17 08:00 04/29/17 08:00 04/29/17 08:00 04/29/17 08:00 04/29/17 08:00 Intake and Output: 04/29/17 04/29/17 06:59 18:59 Intake Total 712 Output Total 245 Balance 467 - Medications Medications: Current Medications Acetaminophen (Tylenol 325mg Tab) 650 mg PO Q6 PRN PRN Reason: fever > 100.4 Last Admin: 04/29/17 04:06 Dose: 650 mg Acetaminophen (Tylenol 650 Mg Supp) 650 mg AK Q4 PRN PRN Reason: Fever >100.4 F Last Admin: 04/22/17 16:30 Dose: 650 mg Albuterol/Ipratropium (Duoneb 3 Mg/0.5 Mg (3 Ml) Ud) 3 ml INH RQ6 [facility] Last Admin: 04/29/17 09:07 Dose: 3 ml Apixaban (Eliquis) 2.5 mg PO BID [facility] PRN Reason: Protocol Last Admin: 04/29/17 08:22 Dose: 2.5 mg Aspirin (Aspirin Chewable) 81 mg PO DAILY [facility] Last Admin: 04/29/17 08:24 Dose: 81 mg Atorvastatin Calcium (Lipitor) 40 mg PO HS [facility] Last Admin: 04/28/17 21:25 Dose: 40 mg Bacitracin (Bacitracin Oint) 1 applic TOP BID [facility] Last Admin: 04/29/17 08:24 Dose: 1 applic Dimethicone (Proshield Plus Skin Protectant) 1 applic TOP Q8 PRN PRN Reason: Dry skin Last Admin: 04/29/17 08:19 Dose: 1 applic Enalapril Maleate (Vasotec) 2.5 mg PO BID [facility] Last Admin: 04/29/17 08:20 Dose: 2.5 mg Glipizide (Glucotrol Xl) 10 mg PO BRKDIN [facility] Last Admin: 04/29/17 08:18 Dose: 10 mg Valproate Sodium 500 mg/ (Sodium Chloride) 105 mls @ 105 mls/hr IVPB Q12 [facility] PRN Reason: As Directed Last Admin: 04/29/17 08:20 Dose: 105 mls/hr Insulin Detemir (Levemir) 28 units SC HS [facility] Last Admin: 04/28/17 21:28 Dose: 28 units Insulin Human Regular (Humulin R) 0 units SC ACHS [facility] PRN Reason: Protocol Last Admin: 04/29/17 06:54 Dose: 3 units Memantine (Namenda) 5 mg PO DAILY [facility] Last Admin: 04/29/17 08:19 Dose: 5 mg Pantoprazole Sodium (Protonix Inj) 40 mg IVP DAILY [facility] Last Admin: 04/29/17 08:18 Dose: 40 mg Repaglinide (Prandin) 1 mg PO TID [facility] Last Admin: 04/29/17 08:19 Dose: 1 mg Sitagliptin Phosphate (Januvia) 50 mg PO BID [facility] Last Admin: 04/29/17 08:19 Dose: 50 mg - Labs Labs: 04/29/17 04:30 04/29/17 04:30 PT 9.7 Seconds (9.8-13.1) L 04/12/17 21:15 INR 0.9 (0.9-1.2) 04/12/17 21:15 APTT 26.0 Seconds (25.6-37.1) 04/12/17 21:15 - Constitutional Appears: No Acute Distress - Head Exam Head Exam: NORMAL INSPECTION - Neurological Exam Neuro motor strength exam: Left Upper Extremity: 2/1, Right Upper Extremity: 3, Left Lower Extremity: 3, Right Lower Extremity: 3 Additional comments: She is drowsy, restless, but able to follow commands with repetitive asking . She response to tactile stimuli with facial grimacing. Sensation is intact Assessment and Plan (1) CVA (cerebral vascular accident) Assessment & Plan: Case discussed with Dr. Korya, continue all current medical,physical, occupational, and speech therapies. Recommend repeat CT scan if mental status deteriorate. Recommend blood pressure control, blood sugar control. Status: Acute
--- NOTE | 2017-04-29 11:16 | CP.PCM.PN ---
Subjective - Date & Time of Evaluation Date of Evaluation: 04/29/17 Time of Evaluation: 16:36 - Subjective Subjective: ID note- Pt. seen and examined today in ICU. awake but continues to be agitated and had low grade fever today. NGT feeds were resumed yesterday as per nurse. she continues to have diarrhea as well as seen in the rectal tube. Objective - Vital Signs/Intake and Output Vital Signs (last 24 hours): Temp Pulse Resp BP Pulse Ox 100.1 F H 127 H 32 H 163/77 H 92 L 04/29/17 08:00 04/29/17 10:00 04/29/17 10:00 04/29/17 10:00 04/29/17 10:00 Intake and Output: 04/29/17 04/29/17 06:59 18:59 Intake Total 712 500 Output Total 245 Balance 467 500 - Medications Medications: Current Medications Acetaminophen (Tylenol 325mg Tab) 650 mg PO Q6 PRN PRN Reason: fever > 100.4 Last Admin: 04/29/17 04:06 Dose: 650 mg Acetaminophen (Tylenol 650 Mg Supp) 650 mg SC Q4 PRN PRN Reason: Fever >100.4 F Last Admin: 04/22/17 16:30 Dose: 650 mg Albuterol/Ipratropium (Duoneb 3 Mg/0.5 Mg (3 Ml) Ud) 3 ml INH RQ8 [facility] Apixaban (Eliquis) 2.5 mg PO BID [facility] PRN Reason: Protocol Last Admin: 04/29/17 08:22 Dose: 2.5 mg Aspirin (Aspirin Chewable) 81 mg PO DAILY [facility] Last Admin: 04/29/17 08:24 Dose: 81 mg Atorvastatin Calcium (Lipitor) 40 mg PO HS [facility] Last Admin: 04/28/17 21:25 Dose: 40 mg Bacitracin (Bacitracin Oint) 1 applic TOP BID [facility] Last Admin: 04/29/17 08:24 Dose: 1 applic Dimethicone (Proshield Plus Skin Protectant) 1 applic TOP Q8 PRN PRN Reason: Dry skin Last Admin: 04/29/17 08:19 Dose: 1 applic Enalapril Maleate (Vasotec) 2.5 mg PO BID [facility] Last Admin: 04/29/17 08:20 Dose: 2.5 mg Glipizide (Glucotrol Xl) 10 mg PO BRKDIN [facility] Last Admin: 04/29/17 08:18 Dose: 10 mg Valproate Sodium 500 mg/ (Sodium Chloride) 105 mls @ 105 mls/hr IVPB Q12 [facility] PRN Reason: As Directed Last Admin: 04/29/17 08:20 Dose: 105 mls/hr Insulin Detemir (Levemir) 28 units SC HS [facility] Last Admin: 04/28/17 21:28 Dose: 28 units Insulin Human Regular (Humulin R) 0 units SC ACHS [facility] PRN Reason: Protocol Last Admin: 04/29/17 11:13 Dose: 2 units Memantine (Namenda) 5 mg PO DAILY [facility] Last Admin: 04/29/17 08:19 Dose: 5 mg Pantoprazole Sodium (Protonix Inj) 40 mg IVP DAILY [facility] Last Admin: 04/29/17 08:18 Dose: 40 mg Repaglinide (Prandin) 1 mg PO TID [facility] Last Admin: 04/29/17 08:19 Dose: 1 mg Sitagliptin Phosphate (Januvia) 50 mg PO BID [facility] Last Admin: 04/29/17 08:19 Dose: 50 mg - Labs Labs: - Additional Findings Additional findings: - Head Exam Head Exam: ATRAUMATIC - ENT Exam Additional comments: has nasal canula on for oxygen only - Neck Exam Neck exam: Positive for: Full Rom Additional comments: supple - Respiratory Exam Additional comments: breath sounds heard b/l no wheezing - Cardiovascular Exam Cardiovascular Exam: RRR, +S1, +S2 - GI/Abdominal Exam GI & Abdominal Exam: Normal Bowel Sounds, Soft Additional comments: ND, NT - Extremities Exam Additional comments: no edema b/l LE, no ulcerations - Neurological Exam Additional comments: awake but agitated and not following commands Laboratory Results - last 72 hr 04/26/17 04/27/17 04/27/17 21:32 04:43 04:45 WBC 11.5 H RBC 4.12 Hgb 11.6 L Hct 36.6 MCV 88.9 MCH 28.1 MCHC 31.7 L RDW 14.6 H Plt Count 156 MPV Neut % (Auto) Lymph % (Auto) Crook % (Auto) Eos % (Auto) Baso % (Auto) Neut # (Auto) Lymph # (Auto) Crook # (Auto) Eos # (Auto) Baso # (Auto) Neutrophils % (Manual) Band Neutrophils % Lymphocytes % (Manual) Monocytes % (Manual) Platelet Estimate Anisocytosis (manual) pCO2 pO2 HCO3 ABG pH ABG Total CO2 ABG O2 Saturation ABG O2 Content ABG Base Excess ABG Hemoglobin ABG Carboxyhemoglobin POC ABG HHb (Measured) ABG Methemoglobin ABG O2 Capacity Boaz Test ABG Potassium A-a O2 Difference Hgb O2 Saturation Glucose Lactate Liter Flow Vent Mode Mechanical Rate FiO2 Tidal Volume PEEP Blood Gas Comments Crit Value Read Back Sodium Potassium Chloride Carbon Dioxide Anion Gap BUN Creatinine Est GFR ( Amer) Est GFR (Non-Af Amer) POC Glucose (mg/dL) 111 H 152 H Random Glucose Calcium Total Bilirubin AST ALT Alkaline Phosphatase Total Protein Albumin Globulin Albumin/Globulin Ratio Arterial Blood Potassium C. difficile Ag & Toxin 04/27/17 04/27/17 04/27/17 04:45 04:56 11:37 WBC RBC Hgb Hct MCV MCH MCHC RDW Plt Count MPV Neut % (Auto) Lymph % (Auto) Crook % (Auto) Eos % (Auto) Baso % (Auto) Neut # (Auto) Lymph # (Auto) Crook # (Auto) Eos # (Auto) Baso # (Auto) Neutrophils % (Manual) Band Neutrophils % Lymphocytes % (Manual) Monocytes % (Manual) Platelet Estimate Anisocytosis (manual) pCO2 37 pO2 77 L HCO3 26.8 ABG pH 7.46 H ABG Total CO2 27.4 ABG O2 Saturation 97.6 ABG O2 Content ABG Base Excess 2.5 ABG Hemoglobin ABG Carboxyhemoglobin POC ABG HHb (Measured) ABG Methemoglobin ABG O2 Capacity Boaz Test Yes ABG Potassium 3.2 L A-a O2 Difference 162.0 Hgb O2 Saturation Glucose 185 H Lactate 0.9 Liter Flow Vent Mode A/c Mechanical Rate 12 FiO2 40.0 Tidal Volume 500 PEEP 5 Blood Gas Comments Crit Value Read Back Sodium 142 138.0 Potassium 3.4 L Chloride 106 107.0 Carbon Dioxide 29 Anion Gap 10 BUN 10 Creatinine 0.5 L Est GFR ( Amer) > 60 Est GFR (Non-Af Amer) > 60 POC Glucose (mg/dL) 195 H Random Glucose 184 H Calcium 8.5 Total Bilirubin 0.4 AST 20 ALT 24 Alkaline Phosphatase 76 Total Protein 6.8 Albumin 2.9 L Globulin 3.9 Albumin/Globulin Ratio 0.7 L Arterial Blood Potassium 3.2 L C. difficile Ag & Toxin 04/27/17 04/27/17 04/27/17 15:42 17:30 18:27 WBC RBC Hgb Hct MCV MCH MCHC RDW Plt Count MPV Neut % (Auto) Lymph % (Auto) Crook % (Auto) Eos % (Auto) Baso % (Auto) Neut # (Auto) Lymph # (Auto) Crook # (Auto) Eos # (Auto) Baso # (Auto) Neutrophils % (Manual) Band Neutrophils % Lymphocytes % (Manual) Monocytes % (Manual) Platelet Estimate Anisocytosis (manual) pCO2 pO2 HCO3 ABG pH ABG Total CO2 ABG O2 Saturation ABG O2 Content ABG Base Excess ABG Hemoglobin ABG Carboxyhemoglobin POC ABG HHb (Measured) ABG Methemoglobin ABG O2 Capacity Boaz Test ABG Potassium A-a O2 Difference Hgb O2 Saturation Glucose Lactate Liter Flow Vent Mode Mechanical Rate FiO2 Tidal Volume PEEP Blood Gas Comments Crit Value Read Back Sodium Potassium 3.8 Chloride Carbon Dioxide Anion Gap BUN Creatinine Est GFR ( Amer) Est GFR (Non-Af Amer) POC Glucose (mg/dL) 258 H Random Glucose Calcium Total Bilirubin AST ALT Alkaline Phosphatase Total Protein Albumin Globulin Albumin/Globulin Ratio Arterial Blood Potassium C. difficile Ag & Toxin Negative 04/27/17 04/27/17 04/28/17 20:15 22:07 04:25 WBC 13.5 H RBC 4.66 Hgb 13.0 Hct 41.5 MCV 89.0 MCH 27.8 MCHC 31.3 L RDW 14.7 H Plt Count 235 MPV 11.9 H Neut % (Auto) 90.6 H Lymph % (Auto) 5.7 L Crook % (Auto) 3.2 Eos % (Auto) 0.0 Baso % (Auto) 0.5 Neut # (Auto) 12.2 H Lymph # (Auto) 0.8 L Crook # (Auto) 0.4 Eos # (Auto) 0.0 Baso # (Auto) 0.1 Neutrophils % (Manual) 92 H Band Neutrophils % 1 Lymphocytes % (Manual) 4 L Monocytes % (Manual) 3 Platelet Estimate Normal Anisocytosis (manual) Slight pCO2 36 pO2 85 HCO3 25.3 ABG pH 7.44 ABG Total CO2 25.6 ABG O2 Saturation 98.3 H ABG O2 Content 18.1 ABG Base Excess 0.6 ABG Hemoglobin 13.4 ABG Carboxyhemoglobin 1.5 POC ABG HHb (Measured) 1.7 ABG Methemoglobin 1.2 ABG O2 Capacity 18.4 Boaz Test Yes ABG Potassium A-a O2 Difference 227.0 Hgb O2 Saturation 95.5 Glucose Lactate Liter Flow 30 Vent Mode High flow lpm Mechanical Rate FiO2 50.0 Tidal Volume PEEP Blood Gas Comments Crit Value Read Back Sodium Potassium Chloride Carbon Dioxide Anion Gap BUN Creatinine Est GFR ( Amer) Est GFR (Non-Af Amer) POC Glucose (mg/dL) 265 H Random Glucose Calcium Total Bilirubin AST ALT Alkaline Phosphatase Total Protein Albumin Globulin Albumin/Globulin Ratio Arterial Blood Potassium C. difficile Ag & Toxin 04/28/17 04/28/17 04/28/17 04:25 05:07 05:31 WBC RBC Hgb Hct MCV MCH MCHC RDW Plt Count MPV Neut % (Auto) Lymph % (Auto) Crook % (Auto) Eos % (Auto) Baso % (Auto) Neut # (Auto) Lymph # (Auto) Crook # (Auto) Eos # (Auto) Baso # (Auto) Neutrophils % (Manual) Band Neutrophils % Lymphocytes % (Manual) Monocytes % (Manual) Platelet Estimate Anisocytosis (manual) pCO2 35 pO2 73 L HCO3 25.4 ABG pH 7.45 ABG Total CO2 25.4 ABG O2 Saturation 97.2 ABG O2 Content 17.8 ABG Base Excess 0.7 ABG Hemoglobin 13.4 ABG Carboxyhemoglobin 1.7 H POC ABG HHb (Measured) 2.7 ABG Methemoglobin 1.2 ABG O2 Capacity 18.3 Boaz Test Yes ABG Potassium A-a O2 Difference 240.0 Hgb O2 Saturation 94.4 L Glucose Lactate Liter Flow 30 Vent Mode Hfov Mechanical Rate FiO2 50.0 Tidal Volume PEEP Blood Gas Comments Crit Value Read Back Sodium 146 Potassium 3.7 Chloride 108 H Carbon Dioxide 24 Anion Gap 18 BUN 17 Creatinine 0.7 Est GFR ( Amer) > 60 Est GFR (Non-Af Amer) > 60 POC Glucose (mg/dL) 259 H Random Glucose 340 H Calcium 9.4 Total Bilirubin AST ALT Alkaline Phosphatase Total Protein Albumin Globulin Albumin/Globulin Ratio Arterial Blood Potassium C. difficile Ag & Toxin 04/28/17 04/28/17 04/28/17 11:19 16:39 21:03 WBC RBC Hgb Hct MCV MCH MCHC RDW Plt Count MPV Neut % (Auto) Lymph % (Auto) Crook % (Auto) Eos % (Auto) Baso % (Auto) Neut # (Auto) Lymph # (Auto) Crook # (Auto) Eos # (Auto) Baso # (Auto) Neutrophils % (Manual) Band Neutrophils % Lymphocytes % (Manual) Monocytes % (Manual) Platelet Estimate Anisocytosis (manual) pCO2 pO2 HCO3 ABG pH ABG Total CO2 ABG O2 Saturation ABG O2 Content ABG Base Excess ABG Hemoglobin ABG Carboxyhemoglobin POC ABG HHb (Measured) ABG Methemoglobin ABG O2 Capacity Boaz Test ABG Potassium A-a O2 Difference Hgb O2 Saturation Glucose Lactate Liter Flow Vent Mode Mechanical Rate FiO2 Tidal Volume PEEP Blood Gas Comments Crit Value Read Back Sodium Potassium Chloride Carbon Dioxide Anion Gap BUN Creatinine Est GFR ( Amer) Est GFR (Non-Af Amer) POC Glucose (mg/dL) 160 H 172 H 206 H Random Glucose Calcium Total Bilirubin AST ALT Alkaline Phosphatase Total Protein Albumin Globulin Albumin/Globulin Ratio Arterial Blood Potassium C. difficile Ag & Toxin 04/28/17 04/29/17 04/29/17 21:10 04:30 04:30 WBC 9.9 RBC 4.27 Hgb 12.1 Hct 38.0 MCV 88.8 MCH 28.2 MCHC 31.8 L RDW 14.5 Plt Count 279 MPV Neut % (Auto) Lymph % (Auto) Crook % (Auto) Eos % (Auto) Baso % (Auto) Neut # (Auto) Lymph # (Auto) Crook # (Auto) Eos # (Auto) Baso # (Auto) Neutrophils % (Manual) Band Neutrophils % Lymphocytes % (Manual) Monocytes % (Manual) Platelet Estimate Anisocytosis (manual) pCO2 pO2 HCO3 ABG pH ABG Total CO2 ABG O2 Saturation ABG O2 Content ABG Base Excess ABG Hemoglobin ABG Carboxyhemoglobin POC ABG HHb (Measured) ABG Methemoglobin ABG O2 Capacity Boaz Test ABG Potassium A-a O2 Difference Hgb O2 Saturation Glucose Lactate Liter Flow Vent Mode Mechanical Rate FiO2 Tidal Volume PEEP Blood Gas Comments Crit Value Read Back Sodium 149 H Potassium 3.5 L Chloride 111 H Carbon Dioxide 24 Anion Gap 18 BUN 32 H Creatinine 0.6 L Est GFR ( Amer) > 60 Est GFR (Non-Af Amer) > 60 POC Glucose (mg/dL) Random Glucose 265 H Calcium 9.1 Total Bilirubin AST ALT Alkaline Phosphatase Total Protein Albumin Globulin Albumin/Globulin Ratio Arterial Blood Potassium C. difficile Ag & Toxin Negative 04/29/17 04/29/17 04/29/17 05:05 05:55 11:12 WBC RBC Hgb Hct MCV MCH MCHC RDW Plt Count MPV Neut % (Auto) Lymph % (Auto) Crook % (Auto) Eos % (Auto) Baso % (Auto) Neut # (Auto) Lymph # (Auto) Crook # (Auto) Eos # (Auto) Baso # (Auto) Neutrophils % (Manual) Band Neutrophils % Lymphocytes % (Manual) Monocytes % (Manual) Platelet Estimate Anisocytosis (manual) pCO2 38 pO2 73 L HCO3 26.7 ABG pH 7.45 ABG Total CO2 27.6 ABG O2 Saturation 96.9 ABG O2 Content 16.1 ABG Base Excess 2.4 ABG Hemoglobin 12.1 ABG Carboxyhemoglobin 1.5 POC ABG HHb (Measured) 3.0 ABG Methemoglobin 1.3 ABG O2 Capacity 16.6 Boaz Test Yes ABG Potassium A-a O2 Difference 108.0 Hgb O2 Saturation 94.1 L Glucose Lactate Liter Flow Vent Mode N/c Mechanical Rate FiO2 32.0 Tidal Volume PEEP Blood Gas Comments Crit Value Read Back Sodium Potassium Chloride Carbon Dioxide Anion Gap BUN Creatinine Est GFR ( Amer) Est GFR (Non-Af Amer) POC Glucose (mg/dL) 252 H 213 H Random Glucose Calcium Total Bilirubin AST ALT Alkaline Phosphatase Total Protein Albumin Globulin Albumin/Globulin Ratio Arterial Blood Potassium C. difficile Ag & Toxin 04/29/17 14:41 WBC RBC Hgb Hct MCV MCH MCHC RDW Plt Count MPV Neut % (Auto) Lymph % (Auto) Crook % (Auto) Eos % (Auto) Baso % (Auto) Neut # (Auto) Lymph # (Auto) Crook # (Auto) Eos # (Auto) Baso # (Auto) Neutrophils % (Manual) Band Neutrophils % Lymphocytes % (Manual) Monocytes % (Manual) Platelet Estimate Anisocytosis (manual) pCO2 37 pO2 76 L HCO3 27.4 ABG pH 7.47 H ABG Total CO2 28.0 ABG O2 Saturation 97.4 ABG O2 Content ABG Base Excess 3.2 H ABG Hemoglobin ABG Carboxyhemoglobin POC ABG HHb (Measured) ABG Methemoglobin ABG O2 Capacity Boaz Test Yes ABG Potassium 4.0 A-a O2 Difference 99.0 Hgb O2 Saturation Glucose 255 H Lactate 0.9 Liter Flow Vent Mode Mechanical Rate FiO2 31.0 Tidal Volume PEEP Blood Gas Comments 3l/m nc rb Crit Value Read Back N Sodium 144.0 Potassium Chloride 113.0 H Carbon Dioxide Anion Gap BUN Creatinine Est GFR ( Amer) Est GFR (Non-Af Amer) POC Glucose (mg/dL) Random Glucose Calcium Total Bilirubin AST ALT Alkaline Phosphatase Total Protein Albumin Globulin Albumin/Globulin Ratio Arterial Blood Potassium 4.0 C. difficile Ag & Toxin Microbiology 04/22/17 19:03 Blood-Venous Blood Culture - Final NO GROWTH AFTER 5 DAYS 04/22/17 19:03 Blood-Venous Gram Stain - Final TEST NOT PERFORMED 04/22/17 19:03 Blood-Venous Blood Culture - Final NO GROWTH AFTER 5 DAYS 04/22/17 19:03 Blood-Venous Gram Stain - Final TEST NOT PERFORMED 04/21/17 21:05 Blood-Venous Blood Culture - Final NO GROWTH AFTER 5 DAYS 04/21/17 21:05 Blood-Venous Gram Stain - Final TEST NOT PERFORMED 04/21/17 20:55 Blood-Venous Blood Culture - Final NO GROWTH AFTER 5 DAYS 04/21/17 20:55 Blood-Venous Gram Stain - Final TEST NOT PERFORMED 04/21/17 05:46 Trachasp Gram Stain - Final 04/21/17 05:46 Trachasp Sputum Culture - Final NORMAL ORAL LEIDA 04/21/17 05:45 Urine,Ndiaye Urine Culture - Final Yeast Species 04/20/17 07:34 Naris MRSA Culture (Admit) - Final MRSA NOT DETECTED 04/20/17 07:55 Urine,Clean Catch Urine Culture - Final Escherichia Coli 04/15/17 06:14 Blood-Venous Blood Culture - Final NO GROWTH AFTER 5 DAYS 04/15/17 06:14 Blood-Venous Gram Stain - Final TEST NOT PERFORMED 04/15/17 06:14 Blood-Venous Blood Culture - Final NO GROWTH AFTER 5 DAYS 04/15/17 06:14 Blood-Venous Gram Stain - Final TEST NOT PERFORMED 04/16/17 08:25 Naris MRSA Culture (Admit) - Final MRSA NOT DETECTED 04/12/17 21:15 Urine,Clean Catch Urine Culture - Final > 100,000 CFU/ML. MULTIPLE SPECIES. SUGGEST REPEAT SPECIMEM. Assessment and Plan (1) CVA (cerebral vascular accident) Status: Acute (2) Type 2 diabetes mellitus with pressure callus Status: Acute (3) Aspiration pneumonia Status: Acute (4) UTI (urinary tract infection) Status: Acute - Assessment and Plan (Free Text) Assessment: A/P- 72 year old female with DM Ii, HTN was admitted with mental status change and was found to have acute ischemic stroke but was doing better and was transferred to step down unit, however, had [employer] and for resp distress and is s/ p post intubation . remaisn extubated low grade fever today leukocytosis resolved today. blood cx- neg x 4 UA- neg urine cx -e.coli pansensitive influenza- negative new diarrhea stool c.diff- neg x 3 Plan- has completed 7 days of IV meropenem . off abx. monitor asp precautions. check cxr. monitor wbc. all above d/w ICU team. ICU time spent 45 min.
[2017-04-29] MEDS ORDERED: Labetalol 5mg/ml (4ml) IVP STA (13:42)
[2017-04-29] MEDS ORDERED: Labetalol 5mg/ml (4ml) ONE (13:45)
--- NOTE | 2017-04-29 14:59 | CP.PCM.PN ---
Subjective - Date & Time of Evaluation Date of Evaluation: 04/29/17 Time of Evaluation: 15:00 - Subjective Subjective: Patient seen and examined. Saturating well on 3 liters nasal cannula Somnolent but arousable Intermittently tachycardic Continues to be hypertensive +600 fluid balance over last 24 hours Objective - Vital Signs/Intake and Output Vital Signs (last 24 hours): Temp Pulse Resp BP Pulse Ox 98.6 F 105 H 30 H 159/79 H 96 04/29/17 12:00 04/29/17 14:45 04/29/17 14:45 04/29/17 14:45 04/29/17 14:45 Intake and Output: 04/29/17 04/29/17 06:59 18:59 Intake Total 712 600 Output Total 245 Balance 467 600 - Medications Medications: Current Medications Acetaminophen (Tylenol 325mg Tab) 650 mg PO Q6 PRN PRN Reason: fever > 100.4 Last Admin: 04/29/17 04:06 Dose: 650 mg Acetaminophen (Tylenol 650 Mg Supp) 650 mg [place] Q4 PRN PRN Reason: Fever >100.4 F Last Admin: 04/22/17 16:30 Dose: 650 mg Apixaban (Eliquis) 2.5 mg PO BID [facility] PRN Reason: Protocol Last Admin: 04/29/17 08:22 Dose: 2.5 mg Aspirin (Aspirin Chewable) 81 mg PO DAILY [facility] Last Admin: 04/29/17 08:24 Dose: 81 mg Atorvastatin Calcium (Lipitor) 40 mg PO HS [facility] Last Admin: 04/28/17 21:25 Dose: 40 mg Bacitracin (Bacitracin Oint) 1 applic TOP BID [facility] Last Admin: 04/29/17 08:24 Dose: 1 applic Dimethicone (Proshield Plus Skin Protectant) 1 applic TOP Q8 PRN PRN Reason: Dry skin Last Admin: 04/29/17 08:19 Dose: 1 applic Donepezil HCl (Aricept) 5 mg PO [facility] Enalapril Maleate (Vasotec) 2.5 mg PO BID [facility] Last Admin: 04/29/17 08:20 Dose: 2.5 mg Glipizide (Glucotrol Xl) 10 mg PO BRKDIN [facility] Last Admin: 04/29/17 08:18 Dose: 10 mg Valproate Sodium 500 mg/ (Sodium Chloride) 105 mls @ 105 mls/hr IVPB Q12 [facility] PRN Reason: As Directed Last Admin: 04/29/17 08:20 Dose: 105 mls/hr Insulin Detemir (Levemir) 28 units SC HS [facility] Last Admin: 18 21:28 Dose: 28 units Insulin Human Regular (Humulin R) 0 units SC ACHS [facility] PRN Reason: Protocol Last Admin: 04/29/17 11:13 Dose: 2 units Ipratropium [place] (Atrovent) 0.5 mg IH RQ8 [facility] Levalbuterol HCl (Xopenex) 0.63 mg INH RQ8 [facility] Pantoprazole Sodium (Protonix Inj) 40 mg IVP DAILY [facility] Last Admin: 04/29/17 08:18 Dose: 40 mg Repaglinide (Prandin) 1 mg PO TID [facility] Last Admin: 04/29/17 13:03 Dose: 1 mg Sitagliptin Phosphate (Januvia) 50 mg PO BID [facility] Last Admin: 04/29/17 08:19 Dose: 50 mg - Labs Labs: 04/29/17 04:30 04/29/17 04:30 PT 9.7 Seconds (9.8-13.1) L 04/12/17 21:15 INR 0.9 (0.9-1.2) 04/12/17 21:15 APTT 26.0 Seconds (25.6-37.1) 04/12/17 21:15 - Additional Findings Additional findings: Constitutional- awake, confused, but able to follow simple commands Head- NCAT, PERRL Eye- PERRL, EOMI ENT- normal exam, MMM. Neck- normal inspection, supple, no JVD Respiratory- CTAB, no wheezes rales rhonchi Cardiovascular- tachycardic, regular rhythm +S1, +S2 no MRG GI/Abdominal- normal bowel sounds, soft, no mass, no hsm Skin- warm, dry Extremities Exam- normal capillary refill, normal inspection Neurological Exam- alert, awake, oriented Psych- normal mood, normal affect Assessment and Plan - Assessment and Plan (Free Text) Plan: Assessment: 72 y/o F PMH DM, HTN, HLD brought to the ED with acutely worsening alteration of mental status and not as verbal . She presented with left facial droop and and some expressive aphasia.CT head was neg for acute CVA or bleed. Patient glucose was elevated 563. She was admitted initially in telemetry for further stroke work up and diabetes control . Neuro consulted.She was started on ASA, Statin, plavix,lovenox , Insulin and IVF .Her BP initially was kept elevated to allow permissive hypertension. MRI head showed acute stroke in right frontal lobe white matter 2/2 While in telemetry , the patient developed worsening BAILON and some left arm weakness. Patient became confused , agitated , restless ,not following any commands. She also started to have fever. Repeat MRI of the Brain : showed acute/ subacute stroke in right mcleod radiata and centrum ovale She was then transferred to ICU for close monitoring She continued to spike fevers for > 48 hours with no obvious source of infection and normal WBC count. All work up sent including CXR, UA,urine cx, blood cx were negative for infection so fever thought to be of central origin and no antibiotics were started 04/20 While in Tele , [employer] called for stridor and respiratory distress . She developed acute hypercapnic respiratory failure was intubated and transferred to ICU. CXR : new infiltrate, poss Asp PNA. 04/28 extubated after weaning trial and placed on NRM. placedon BIpap and treated for striodor with solumedrol IV, Duonebs and Racemic epi INH With weak cough reflex , unable to expectorate Now saturating well on 3 liters nasal cannula. HD stable 1. Acute hypercapnic respiratory failure Most likely secondary to aspiration pneumonia and patient's inability to handle secretions due to AMS/ CVA was intubated on MV PRVC AC mode 12/500/5/40% with ABG 37/77/26/7.4 Off propofol drip, more lethargic over the past 2 days but is able to communicate, following simple commands , moves the right arm and leg and left lower extremity. No movement to LUE CXR showed no active disease Metabolic alkalosis improved since yesterday and patient diuresed well with lasix and diamox given yesterday ( CO2 29 ) 04/27: Weaning protocol started as per grain shoveler and patient was extubated and placed initially on NRM FIO2 50 % Stridor noted after extubation , solumedrol 125 mg , racemic epi INH and Duonebs given and placed on BIPAP / RR 16 FIO2 50 % 2/15: Bipap removed, now saturating well on 3 liters nasal cannula Continues to have weak cough reflex and respiratory secretions Keep HOB elevated continue Duonebs RTC Keep NPO with tube feeds (Glucerna) . Speech eval discontinued antibiotics since patient has been afebrile 04/29: Respiratory taylor patient stable. Nasal cannula at 3 liters as patient is mildly hypoxemic. ABG shows 7.45/38/25.6/pO2 73 2. Progressive Acute ischemic stroke with AMS / lethargy worsening mental status, unable to handle secretions, aspirating , with acute respiratory failure requiring intubation initial presentation of patient was : acute stroke to right frontal lobe that progressed to right mcleod radiata and centrum semiovale stroke Continue ASA, statin, glycemic control, eliquis( empirically started by neuro) Tylenol PRN for fever on Depakote 500 mg IV Q12 Cardio consulted for possible JUSTYNA - on hold due to pt's medical condition ( Dr Serrato wants pt to do JUSTYNA in [facility] ) Pt empirically started on Eliquis Started BP control with low dose ACEI Enalapril 2.[address] head showed stable stroke Keep NPO w tube feedings: Speech therapy recommended STRICT NPO and will continue to follow for dysphagia tx and diet tolerance Start PT / OT 3. Suspected aspiration Pneumonia/ pneumonitis initially with CXR findings of new right lobe infiltrate prior to intubation and large secretions suctioned during intubation Received IV meropenem and Vanco-- d/c ID and pulmonary were consulted Blood c/s : neg so far Repeat CXR on 04/27 shows no active disease 4 .Uncontrolled DM with hyperglycemia Continue accuchecks, insulin coverage Increased Levemir to 28 units q hs, cont Glucotrol, prandin , Januvia Hgb A1c 16 NPO until speech eval post extubation 5. Hypertension permissive hypertension while stroke was evolving Started enalapril Low dose Labetalol given once by grain shoveler today Monitor 6. Dyslipidemia c/w Atorvastatin 40 mg PO 7. Diabetic foot calluses podiatry consulted and following Doppler US of LE - good arterial flow 8. Diarrhea c diff pending improved 9 DVT ppx on eliquis
[2017-04-29 15:03] LABS: ABG ALLEN TEST YES; ARTERIAL BLOOD GAS HCO3 27.4 mmol/L (21-28); ARTERIAL BLOOD GAS O2 SAT 97.4 % (95-98); ARTERIAL BLOOD GAS PCO2 37 mm/Hg (35-45); ARTERIAL BLOOD GAS PH 7.47 (7.35-7.45); ARTERIAL BLOOD GAS PO2 76 mm/Hg (80-100)
[2017-04-29] MEDS: Ipratropium 0.02% Inhal Soln (0.5 mg/2.5 ml) UD IH SCH ×2 (15:52→23:45)
[2017-04-29] MEDS: Levalbuterol 0.63 MG/3 ML Inhal Soln UD INH SCH ×2 (15:52→23:45)
[2017-04-29] MEDS ORDERED: Albuterol-Ipratrop 3 mg / 0.5 (3 ml) UD INH SCH (16:00)
--- NOTE | 2017-04-29 16:35 | CP.PCM.PN ---
Subjective - Date & Time of Evaluation Date of Evaluation: 04/29/17 Time of Evaluation: 11:10 - Subjective Subjective: F/U Respiratory failure/ PNA Awake , follows, commands , on NG tube Objective - Vital Signs/Intake and Output Vital Signs (last 24 hours): Temp Pulse Resp BP Pulse Ox 100.7 F H 108 H 29 H 164/109 H 95 04/29/17 16:00 04/29/17 16:00 04/29/17 16:00 04/29/17 16:00 04/29/17 16:00 Intake and Output: 04/29/17 04/29/17 06:59 18:59 Intake Total 712 700 Output Total 245 Balance 467 700 - Medications Medications: Current Medications Acetaminophen (Tylenol 325mg Tab) 650 mg PO Q6 PRN PRN Reason: fever > 100.4 Last Admin: 04/29/17 04:06 Dose: 650 mg Acetaminophen (Tylenol 650 Mg Supp) 650 mg [place] Q4 PRN PRN Reason: Fever >100.4 F Last Admin: 04/29/17 15:58 Dose: 650 mg Apixaban (Eliquis) 2.5 mg PO BID [facility] PRN Reason: Protocol Last Admin: 04/29/17 16:16 Dose: 2.5 mg Aspirin (Aspirin Chewable) 81 mg PO DAILY [facility] Last Admin: 04/29/17 08:24 Dose: 81 mg Atorvastatin Calcium (Lipitor) 40 mg PO HS [facility] Last Admin: 04/28/17 21:25 Dose: 40 mg Bacitracin (Bacitracin Oint) 1 applic TOP BID [facility] Last Admin: 04/29/17 16:15 Dose: 1 applic Dimethicone (Proshield Plus Skin Protectant) 1 applic TOP Q8 PRN PRN Reason: Dry skin Last Admin: 04/29/17 08:19 Dose: 1 applic Donepezil HCl (Aricept) 5 mg PO HS [facility] Enalapril Maleate (Vasotec) 2.5 mg PO BID [facility] Last Admin: 04/29/17 16:15 Dose: 2.5 mg Glipizide (Glucotrol Xl) 10 mg PO BRKDIN [facility] Last Admin: 04/29/17 16:14 Dose: 10 mg Valproate Sodium 500 mg/ (Sodium Chloride) 105 mls @ 105 mls/hr IVPB Q12 [facility] PRN Reason: As Directed Last Admin: 04/29/17 08:20 Dose: 105 mls/hr Insulin Detemir (Levemir) 28 units SC HS [facility] Last Admin: 04/28/17 21:28 Dose: 28 units Insulin Human Regular (Humulin R) 0 units SC ACHS [facility] PRN Reason: Protocol Last Admin: 04/29/17 11:13 Dose: 2 units Ipratropium [place] (Atrovent) 0.5 mg IH RQ8 [facility] Last Admin: 04/29/17 15:52 Dose: 0.5 mg Labetalol HCl (Trandate) 100 mg PO BID [facility] Levalbuterol HCl (Xopenex) 0.63 mg INH RQ8 [facility] Last Admin: 04/29/17 15:52 Dose: 0.63 mg Pantoprazole Sodium (Protonix Inj) 40 mg IVP DAILY [facility] Last Admin: 04/29/17 08:18 Dose: 40 mg Repaglinide (Prandin) 1 mg PO TID [facility] Last Admin: 04/29/17 16:14 Dose: 1 mg Sitagliptin Phosphate (Januvia) 50 mg PO BID [facility] Last Admin: 04/29/17 16:15 Dose: 50 mg - Labs Labs: 04/29/17 04:30 04/29/17 04:30 PT 9.7 Seconds (9.8-13.1) L 04/12/17 21:15 INR 0.9 (0.9-1.2) 04/12/17 21:15 APTT 26.0 Seconds (25.6-37.1) 04/12/17 21:15 - Constitutional Appears: Chronically Ill - Head Exam Head Exam: NORMAL INSPECTION - Eye Exam Eye Exam: PERRL - ENT Exam Additional comments: \ on NC O2 , NG tube - Neck Exam Neck Exam: Normal Inspection - Respiratory Exam Respiratory Exam: Decreased Breath Sounds (at basrs) - Cardiovascular Exam Cardiovascular Exam: REGULAR RHYTHM - GI/Abdominal Exam GI & Abdominal Exam: Soft, Normal Bowel Sounds - Extremities Exam Extremities Exam: Normal Inspection - Back Exam Back Exam: NORMAL INSPECTION - Neurological Exam Neurological Exam: Alert, Awake Additional comments: Follows commands, increased movements LUE , LLE on commands. - Psychiatric Exam Additional comments: Calm - Skin Skin Exam: Warm Assessment and Plan (1) Respiratory failure Status: Resolved (2) Aspiration pneumonia Status: Resolved (3) CVA (cerebral vascular accident) Status: Acute - Assessment and Plan (Free Text) Plan: reported absent swallow initiation, orally defensive movement . Patient is high risk of aspiration ICU Time: 40 min.
[2017-04-29] MEDS: Insulin Detemir 100 Units/ml Inj SC SCH (21:37)
[2017-04-30 01:10] LABS: SQUAMOUS EPITHIAL 8 /hpf (0-5); URINE BACTERIA FEW (<OCC); URINE BILIRUBIN NEGATIVE (NEGATIVE); URINE BLOOD LARGE (NEGATIVE); URINE CLARITY TURBID (Clear); URINE COLOR YELLOW (YELLOW); URINE GLUCOSE (UA) >=500 mg/dL (Normal); URINE LEUKOCYTE ESTERASE LARGE Leu/uL (Negative); URINE NITRATE NEGATIVE (NEGATIVE); URINE PROTEIN 100 mg/dL (NEGATIVE); URINE UROBILINOGEN 0.2-1.0 mg/dL (0.2-1.0)
[2017-04-30 05:21] LABS: BASO % 0.4 % (0.0-2.0); EOS # 0.1 K/uL (0.0-0.7); EOS % 1.2 % (0.0-4.0); HEMOGLOBIN 11.6 g/dL (12.0-16.0); LYMPH # 1.7 K/uL (1.0-4.3); LYMPH % 16.9 % (20.0-40.0); MEAN CELL VOLUME 88.2 fl (81.0-99.0); MEAN CORPUSCULAR HEMOGLOBIN 28.6 pg (27.0-31.0); MEAN CORPUSCULAR HGB CONC 32.4 g/dL (33.0-37.0); MEAN PLATELET VOLUME 10.2 fl (7.2-11.7); MONO # 0.9 K/uL (0.0-0.8); NEUT # 7.3 K/uL (1.8-7.0); NEUT % 72.5 % (50.0-75.0); RBC 4.05 Mil/uL (3.80-5.20); RED CELL DISTRIBUTION WIDTH 14.6 % (11.5-14.5); WHITE BLOOD COUNT 10.1 K/uL (4.8-10.8)
[2017-04-30 05:53] LABS: BLOOD UREA NITROGEN 23 mg/dl (7-17); CALCIUM 8.8 mg/dL (8.4-10.2); GFR AFRICAN-AMERICAN > 60; GFR NON-AFRICAN AMERICAN > 60
[2017-04-30] MEDS: Insulin Regular 100 units/ml SC SCH ×4 (07:03→21:36)
[2017-04-30] MEDS ORDERED: Insulin Lispro (humaLOG) 100 Units/ml Inj SC SCH (07:30)
--- NOTE | 2017-04-30 08:09 | CP.PCM.PN ---
Subjective - Date & Time of Evaluation Date of Evaluation: 04/30/17 Time of Evaluation: 08:00 - Subjective Subjective: Patient seen and examined bedside. Elderly female of stated age lying in bed comfortable in NAD, somnolent but responsive to verbal command. Following simple commands.Able to move all 4 extremities with weakness to LUE . Aphasic No acute issues overnight saturating 64-96 % on 3 L O2 via nC Tmax 100.7 last 24 hours , BP 158/90 HR 109 ( tachycardic ) I/O 2324/920 with NGT feeding Glucerna @ 50 cc/hr till with Flexiseal in place and small amount of diarrhea Objective - Vital Signs/Intake and Output Vital Signs (last 24 hours): Temp Pulse Resp BP Pulse Ox 98.9 F 109 H 16 158/90 H 95 04/30/17 06:00 04/30/17 06:00 04/30/17 06:00 04/30/17 06:00 04/30/17 06:00 Intake and Output: 04/30/17 04/30/17 06:59 18:59 Intake Total 1174 Output Total 520 Balance 654 - Medications Medications: Current Medications Acetaminophen (Tylenol 325mg Tab) 650 mg PO Q6 PRN PRN Reason: fever > 100.4 Last Admin: 04/29/17 04:06 Dose: 650 mg Acetaminophen (Tylenol 650 Mg Supp) 650 mg [place] Q4 PRN PRN Reason: Fever >100.4 F Last Admin: 04/29/17 15:58 Dose: 650 mg Apixaban (Eliquis) 2.5 mg PO BID [facility] PRN Reason: Protocol Last Admin: 04/29/17 16:16 Dose: 2.5 mg Aspirin (Aspirin Chewable) 81 mg PO DAILY [facility] Last Admin: 04/29/17 08:24 Dose: 81 mg Atorvastatin Calcium (Lipitor) 40 mg PO HS [facility] Last Admin: 04/29/17 21:43 Dose: 40 mg Bacitracin (Bacitracin Oint) 1 applic TOP BID [facility] Last Admin: 04/29/17 16:15 Dose: 1 applic Dimethicone (Proshield Plus Skin Protectant) 1 applic TOP Q8 PRN PRN Reason: Dry skin Last Admin: 04/29/17 08:19 Dose: 1 applic Donepezil HCl (Aricept) 5 mg PO [facility] Last Admin: 04/29/17 21:10 Dose: 5 mg Enalapril Maleate (Vasotec) 2.5 mg PO BID [facility] Last Admin: 04/29/17 16:15 Dose: 2.5 mg Glipizide (Glucotrol Xl) 10 mg PO BRKDIN [facility] Last Admin: 04/29/17 16:14 Dose: 10 mg Valproate Sodium 500 mg/ (Sodium Chloride) 105 mls @ 105 mls/hr IVPB Q12 [facility] PRN Reason: As Directed Last Admin: 04/29/17 21:09 Dose: 105 mls/hr Insulin Detemir (Levemir) 28 units SC HS [facility] Last Admin: 04/29/17 21:37 Dose: 28 units Insulin Human Lispro (Humalog) 0 units SC ACHS [facility] PRN Reason: Protocol Insulin Human Regular (Humulin R) 0 units SC ACHS [facility] PRN Reason: Protocol Last Admin: 04/30/17 07:03 Dose: 1 units Ipratropium [place] (Atrovent) 0.5 mg IH RQ8 [facility] Last Admin: 04/29/17 23:45 Dose: 0.5 mg Labetalol HCl (Trandate) 100 mg PO BID [facility] Last Admin: 04/29/17 17:42 Dose: 100 mg Levalbuterol HCl (Xopenex) 0.63 mg INH RQ8 [facility] Last Admin: 04/29/17 23:45 Dose: 0.63 mg Metoprolol Succinate (Toprol Xl) 25 mg PO DAILY [facility] Pantoprazole Sodium (Protonix Inj) 40 mg IVP DAILY [facility] Last Admin: 04/29/17 08:18 Dose: 40 mg Repaglinide (Prandin) 1 mg PO TID [facility] Last Admin: 04/29/17 16:14 Dose: 1 mg Sitagliptin Phosphate (Januvia) 50 mg PO BID [facility] Last Admin: 04/29/17 16:15 Dose: 50 mg - Labs Labs: 04/30/17 04:45 04/30/17 04:45 PT 9.7 Seconds (9.8-13.1) L 04/12/17 21:15 INR 0.9 (0.9-1.2) 04/12/17 21:15 APTT 26.0 Seconds (25.6-37.1) 01/30/18 21:15 - Constitutional Appears: Non-toxic, No Acute Distress, Confused - Head Exam Head Exam: ATRAUMATIC, NORMOCEPHALIC - Eye Exam Eye Exam: EOMI, PERRL Pupil Exam: NORMAL ACCOMODATION - ENT Exam ENT Exam: Mucous Membranes Dry, Normal Exam - Neck Exam Neck Exam: Full ROM, Normal Inspection - Respiratory Exam Respiratory Exam: absent: Wheezes Additional comments: coarse breath sounds bilaterally - Cardiovascular Exam Cardiovascular Exam: Tachycardia, +S1, +S2. absent: JVD - GI/Abdominal Exam GI & Abdominal Exam: Soft, Normal Bowel Sounds. absent: Distended, Guarding, Tenderness, Rebound - Rectal Exam Rectal Exam: Deferred - Extremities Exam Extremities Exam: Normal Capillary Refill. absent: Calf Tenderness, Joint Swelling, Pedal Edema - Neurological Exam Additional comments: somnolent Responds to verbal command Follows simple commands Moves RUE , LE and 2/5 power to LUE Aphasic - Psychiatric Exam Psychiatric exam: Flat Affect - Skin Skin Exam: Dry, Warm Additional comments: perirectal moisture related skin excoriation Assessment and Plan - Assessment and Plan (Free Text) Assessment: 72 y/o F PMH DM, HTN, HLD brought to the ED with acutely worsening alteration of mental status and not as verbal . She presented with left facial droop and and some expressive aphasia.CT head was neg for acute CVA or bleed. Patient glucose was elevated 563. She was admitted initially in telemetry for further stroke work up and diabetes control . Neuro consulted.She was started on ASA, Statin, plavix,lovenox , Insulin and IVF .Her BP initially was kept elevated to allow permissive hypertension. MRI head showed acute stroke in right frontal lobe white matter 2/2 While in telemetry , the patient developed worsening BAILON and some left arm weakness.Patient became confused , agitated , restless ,not following any commands. She also started to have fever. Repeat MRI of the Brain : showed acute/ subacute stroke in right mcleod radiata and centrum ovale She was then transferred to ICU for close monitoring She continued to spike fevers for > 48 hours with no obvious source of infection and normal WBC count. All work up sent including CXR, UA,urine cx, blood cx were negative for infection so fever thought to be of central origin and no antibiotics were started 2/7 While in Tele , CAT SKINNER called for stridor and respiratory distress . She developed acute hypercapnic respiratory failure was intubated and transferred to ICU. CXR showed new infiltrate, poss Asp PNA.She was started on IV antibiotics. 04/28 extubated after weaning trial and placed on NRM. placed on BIpap and treated for stridor with solumedrol IV, Duonebs and Racemic epi INH With weak cough reflex , unable to expectorate 04/30 At present on 3 L O2 via NC saturating 95 % with PO2 77 . Somnolent, follows simple commands, aphasic with left side weakness , Tmax 100.7 On tube feeding 1. Acute hypercapnic respiratory failure Most likely secondary to aspiration pneumonia and patient's inability to handle secretions due to AMS/ CVA extubated 04/28 and at present saturating 96 5 on 3 L O2 via NC, with weak cough reflex, unable to expectorate PO2 77 Repeat CXR showed no active disease Keep HOB elevated continue Duonebs RTC Keep NPO with tube feeds (Glucerna) . Speech eval Received full course of IV Meropenem and Vancomycin as per ID. All antibiotics discontinued at present Continue respiratory support,, aspiration precautions 2. Progressive Acute ischemic stroke with AMS / lethargy initial presentation of patient was : acute stroke to right frontal lobe that progressed to right mcleod radiata and centrum semiovale stroke Developed worsening mental status, unable to handle secretions, aspirating , with acute respiratory failure requiring intubation . s/p extubation Showing some improvement of mental status, somnolent but follows simple commands Aphasic with left side weakness Continue ASA, statin, glycemic control, eliquis( empirically started by neuro) Tylenol PRN for fever on Depakote 500 mg IV Q12 for mood stabilizer Started Aricept ( home med ) On Enalparil 2.5 mg BID for BP control .Will start Metoprolol XL [address] head showed stable stroke Keep NPO w tube feedings: Speech therapy recommended STRICT NPO and will continue to follow for dysphagia tx and diet tolerance Continue PT / OT Will need peg placement if no improvement of dysphagia. Plan for JOHN 3. Suspected aspiration Pneumonia/ pneumonitis initially with CXR findings of new right lobe infiltrate prior to intubation and large secretions suctioned during intubation Received IV meropenem and Vanco-- d/c ID and pulmonary were consulted Blood c/s : neg so far Repeat CXR on 04/27 shows no active disease 4 .Uncontrolled DM with hyperglycemia Continue accuchecks, insulin coverage on Levemir to 28 units q hs, cont Glucotrol, prandin , Januvia Hgb A1c 16 NPO until speech eval post extubation 5. Hypertension permissive hypertension while stroke was evolving on enalapril 2.5 mg PO bid Start Metoprolol XL 25 mg po QD Monitor 6. Dyslipidemia c/w Atorvastatin 40 mg PO 7. Diabetic foot calluses podiatry consulted and following Doppler US of LE - good arterial flow 8. Diarrhea c diff negative x 3 improved 9 DVT ppx on eliquis
[2017-04-30] MEDS: Ipratropium 0.02% Inhal Soln (0.5 mg/2.5 ml) UD IH SCH ×2 (08:27→16:19)
[2017-04-30] MEDS: Levalbuterol 0.63 MG/3 ML Inhal Soln UD INH SCH ×2 (08:27→16:19)
[2017-04-30] MEDS: Valproate 500 MG in Sodium Chloride 0.9% 100 ML IVPB SCH ×2 (08:44→21:00)
[2017-04-30] MEDS: Bacitracin OINT 15GM TOP SCH ×2 (08:44→16:22)
[2017-04-30] MEDS: GlipiZIDE 10 mg SR Tab PO SCH ×2 (08:45→16:23)
[2017-04-30] MEDS ORDERED: Metoprolol Succinate 25 mg XL Tab PO SCH (09:00)
--- NOTE | 2017-04-30 09:34 | CP.CCUPN ---
CCU Subjective - Physician Review Events Since Last Encounter (Free Text): 04/30/17 09:32 Sleep, opens eyes on verbal command, BP stable CCU Objective - Vital Signs / Intake & Output Vital Signs (Last 4 hours): Vital Signs Temp Pulse Resp BP Pulse Ox 04/30/17 08:00 98.2 F 98 H 17 159/84 H 97 04/30/17 06:00 98.9 F 109 H 16 158/90 H 95 Intake and Output (Last 8hrs): Intake & Output 04/29/17 04/30/17 04/30/17 22:59 06:59 14:59 Intake Total 962 662 350 Output Total 400 520 Balance 562 142 350 Weight 170 lb Intake: IV 12 12 Intake, Piggyback 100 100 Tube Feeding 350 400 Free Water Flush 500 250 250 Output: Gastric Amount 20 Stomach 20 Urine 300 500 Urethral (Ndiaye) 300 500 Stool 100 Other: # Bowel Movements 200 - Physical Exam Narrative Physical Exam (Free Text): 04/30/17 09:32 P/E Neck: No JVD Lungs: No ronchi, crackles Abdomen: soft, no-tender Ext: No edema Heart: No gallop Head: Positive for: Atraumatic, Normocephalic Pupils: Positive for: PERRL Mouth: Positive for: Dry Respiratory/Chest: Positive for: Clear to Auscultation, Rhonchi (diffuse and bilateral). Negative for: Respiratory Distress, Wheezes, Decreased Breath Sounds, Rales Cardiovascular: Positive for: Regular Rate and Rhythm, Normal S1, S2, Tachycardic Abdomen: Positive for: Normal Bowel Sounds. Negative for: Tenderness, Distention, Guarding Rectal: Positive for: Other (rectal tube in place) Upper Extremity: Positive for: Capillary Refill < 2s. Negative for: Cyanosis Lower Extremity: Negative for: Edema, CALF TENDERNESS Neurological: Positive for: Other (following simple commands) Skin: Positive for: Warm, Dry, Pale Psychiatric: Positive for: Alert - Medications Active Medications: Active Medications Generic Name Dose Route Start Last Admin Trade Name Freq PRN Reason Stop Dose Admin Acetaminophen 650 mg 04/15/17 23:34 04/29/17 04:06 Tylenol 325mg Tab PO 650 mg Q6 PRN Administration fever > 100.4 Acetaminophen 650 mg 04/21/17 20:53 02/16/18 15:58 Tylenol 650 Mg Supp [place] 650 mg Q4 PRN Administration Fever >100.4 F Apixaban 2.5 mg 04/17/17 17:00 04/30/17 08:45 Eliquis PO 2.5 mg BID BRIAN Administration Protocol Aspirin 81 mg 04/19/17 13:00 04/30/17 08:43 Aspirin Chewable PO 81 mg DAILY BRIAN Administration Atorvastatin Calcium 40 mg 04/13/17 22:00 04/29/17 21:43 Lipitor PO 40 mg HS BRIAN Administration Bacitracin 1 applic 04/16/17 09:00 04/30/17 08:44 Bacitracin Oint TOP 1 applic BID BRIAN Administration Dimethicone 1 applic 04/27/17 11:37 04/29/17 08:19 Proshield Plus Skin Protectant TOP 1 applic Q8 PRN Administration Dry skin Donepezil HCl 5 mg 04/29/17 22:00 04/29/17 21:10 Aricept PO 5 mg HS BRIAN Administration Enalapril Maleate 2.5 mg 04/19/17 17:00 04/30/17 08:50 Vasotec PO 2.5 mg BID BRIAN Administration Glipizide 10 mg 04/14/17 08:00 04/30/17 08:45 Glucotrol Xl PO 10 mg BRKDIN BRIAN Administration Valproate Sodium 500 mg/ 105 mls @ 105 mls/hr 04/17/17 21:00 04/30/17 08:44 Sodium Chloride IVPB 105 mls/hr Q12 BRIAN Administration As Directed Insulin Detemir 28 units 04/24/17 17:16 04/29/17 21:37 Levemir SC 28 units HS BRIAN Administration Insulin Human Lispro 0 units 04/30/17 07:30 Humalog SC ACHS BRIAN Protocol Insulin Human Regular 0 units 04/13/17 07:30 04/30/17 07:03 Humulin R SC 1 units ACHS BRIAN Administration Protocol Ipratropium [place] 0.5 mg 04/29/17 16:00 04/30/17 08:27 Atrovent IH 0.5 mg RQ8 BRIAN Administration Labetalol HCl 100 mg 04/29/17 18:00 04/30/17 08:50 Trandate PO 100 mg BID BRIAN Administration Levalbuterol HCl 0.63 mg 04/29/17 16:00 04/30/17 08:27 Xopenex INH 0.63 mg RQ8 BRIAN Administration Metoprolol Succinate 25 mg 04/30/17 09:00 Toprol Xl PO DAILY [facility] Pantoprazole Sodium 40 mg 04/22/17 09:00 04/30/17 08:47 Protonix Inj IVP 40 mg DAILY BRIAN Administration Repaglinide 1 mg 04/14/17 09:00 04/30/17 08:47 Prandin PO 1 mg TID BRIAN Administration Sitagliptin Phosphate 50 mg 04/14/17 09:00 04/30/17 08:46 Januvia PO 50 mg BID BRIAN Administration - Patient Studies Lab Studies: Microbiology Studies 04/28/17 21:10 Gram Stain - Final Sputum 04/28/17 13:57 Blood Culture - Preliminary Blood NO GROWTH AFTER 24 HOURS Lab Studies 04/30/17 04/30/17 04/30/17 Range/Units 04:45 04:45 04:38 WBC 10.1 (4.8-10.8) K/uL RBC 4.05 (3.80-5.20) Mil/uL Hgb 11.6 L (12.0-16.0) g/dL Hct 35.7 (34.0-47.0) % MCV 88.2 (81.0-99.0) fl MCH 28.6 (27.0-31.0) pg MCHC 32.4 L (33.0-37.0) g/dL RDW 14.6 H (11.5-14.5) % Plt Count 285 (130-400) K/uL MPV 10.2 (7.2-11.7) fl Neut % (Auto) 72.5 (50.0-75.0) % Lymph % (Auto) 16.9 L (20.0-40.0) % [place] % (Auto) 9.0 (0.0-10.0) % Eos % (Auto) 1.2 (0.0-4.0) % Baso % (Auto) 0.4 (0.0-2.0) % Neut # (Auto) 7.3 H (1.8-7.0) K/uL Lymph # (Auto) 1.7 (1.0-4.3) K/uL [place] # (Auto) 0.9 H (0.0-0.8) K/uL Eos # (Auto) 0.1 (0.0-0.7) K/uL Baso # (Auto) 0.0 (0.0-0.2) K/uL pCO2 (35-45) mm/Hg pO2 (80-100) mm/Hg HCO3 (21-28) mmol/L ABG pH (7.35-7.45) ABG Total CO2 (22-28) mmol/L ABG O2 Saturation (95-98) % ABG Base Excess (-2.0-3.0) mmol/L [place] Test ABG Potassium (3.6-5.2) mmol/L A-a O2 Difference mm/Hg Sodium 145 (132-148) mmol/L Chloride 108 H (98-107) mmol/L Glucose (65-105) mg/dL Lactate (0.7-2.1) mmol/L FiO2 % Blood Gas Comments Crit Value Read Back Potassium 3.7 (3.6-5.0) MMOL/L Carbon Dioxide 28 (22-30) mmol/L Anion Gap 13 (10-20) BUN 23 H (7-17) mg/dl Creatinine 0.5 L (0.7-1.2) mg/dl Est GFR ( Amer) > 60 Est GFR (Non-Af Amer) > 60 POC Glucose (mg/dL) 168 H (65-110) mg/dL Random Glucose 193 H (65-105) mg/dL Calcium 8.8 (8.4-10.2) mg/dL Arterial Blood Potassium (3.6-5.2) mmol/L Urine Color (YELLOW) Urine Clarity (Clear) Urine pH (5.0-8.0) Ur Specific [place] (1.003-1.030) Urine Protein (NEGATIVE) mg/dL Urine Glucose (UA) (Normal) mg/dL Urine Ketones (NEGATIVE) mg/dL Urine Blood (NEGATIVE) Urine Nitrate (NEGATIVE) Urine Bilirubin (NEGATIVE) Urine Urobilinogen (0.2-1.0) mg/dL Ur Leukocyte Esterase (Negative) Jr/uL Urine RBC (Auto) (0-3) /hpf Urine Microscopic WBC (0-5) /hpf Ur Squamous Epith Cells (0-5) /hpf Urine Bacteria (<OCC) Urine Yeast (Budding) (NEGATIVE) /hpf 04/30/17 04/29/17 04/29/17 Range/Units 00:27 21:04 16:51 WBC (4.8-10.8) K/uL RBC (3.80-5.20) Mil/uL Hgb (12.0-16.0) g/dL Hct (34.0-47.0) % MCV (81.0-99.0) fl MCH (27.0-31.0) pg MCHC (33.0-37.0) g/dL RDW (11.5-14.5) % Plt Count (130-400) K/uL MPV (7.2-11.7) fl Neut % (Auto) (50.0-75.0) % Lymph % (Auto) (20.0-40.0) % [place] % (Auto) (0.0-10.0) % Eos % (Auto) (0.0-4.0) % Baso % (Auto) (0.0-2.0) % Neut # (Auto) (1.8-7.0) K/uL Lymph # (Auto) (1.0-4.3) K/uL [place] # (Auto) (0.0-0.8) K/uL Eos # (Auto) (0.0-0.7) K/uL Baso # (Auto) (0.0-0.2) K/uL pCO2 (35-45) mm/Hg pO2 (80-100) mm/Hg HCO3 (21-28) mmol/L ABG pH (7.35-7.45) ABG Total CO2 (22-28) mmol/L ABG O2 Saturation (95-98) % ABG Base Excess (-2.0-3.0) mmol/L [place] Test ABG Potassium (3.6-5.2) mmol/L A-a O2 Difference mm/Hg Sodium (132-148) mmol/L Chloride (98-107) mmol/L Glucose (65-105) mg/dL Lactate (0.7-2.1) mmol/L FiO2 % Blood Gas Comments Crit Value Read Back Potassium (3.6-5.0) MMOL/L Carbon Dioxide (22-30) mmol/L Anion Gap (10-20) BUN (7-17) mg/dl Creatinine (0.7-1.2) mg/dl Est GFR ( Amer) Est GFR (Non-Af Amer) POC Glucose (mg/dL) 259 H 285 H (65-110) mg/dL Random Glucose (65-105) mg/dL Calcium (8.4-10.2) mg/dL Arterial Blood Potassium (3.6-5.2) mmol/L Urine Color Yellow (YELLOW) Urine Clarity Turbid (Clear) Urine pH 5.0 (5.0-8.0) Ur Specific [place] 1.030 (1.003-1.030) Urine Protein 100 (NEGATIVE) mg/dL Urine Glucose (UA) >=500 (Normal) mg/dL Urine Ketones Trace (NEGATIVE) mg/dL Urine Blood Large (NEGATIVE) Urine Nitrate Negative (NEGATIVE) Urine Bilirubin Negative (NEGATIVE) Urine Urobilinogen 0.2-1.0 (0.2-1.0) mg/dL Ur Leukocyte Esterase Large (Negative) Jr/uL Urine RBC (Auto) 802 H (0-3) /hpf Urine Microscopic WBC 559 H (0-5) /hpf Ur Squamous Epith Cells 8 H (0-5) /hpf Urine Bacteria Few H (<OCC) Urine Yeast (Budding) Many H (NEGATIVE) /hpf 04/29/17 04/29/17 Range/Units 14:41 11:12 WBC (4.8-10.8) K/uL RBC (3.80-5.20) Mil/uL Hgb (12.0-16.0) g/dL Hct (34.0-47.0) % MCV (81.0-99.0) fl MCH (27.0-31.0) pg MCHC (33.0-37.0) g/dL RDW (11.5-14.5) % Plt Count (130-400) K/uL MPV (7.2-11.7) fl Neut % (Auto) (50.0-75.0) % Lymph % (Auto) (20.0-40.0) % [place] % (Auto) (0.0-10.0) % Eos % (Auto) (0.0-4.0) % Baso % (Auto) (0.0-2.0) % Neut # (Auto) (1.8-7.0) K/uL Lymph # (Auto) (1.0-4.3) K/uL [place] # (Auto) (0.0-0.8) K/uL Eos # (Auto) (0.0-0.7) K/uL Baso # (Auto) (0.0-0.2) K/uL pCO2 37 (35-45) mm/Hg pO2 76 L (80-100) mm/Hg HCO3 27.4 (21-28) mmol/L ABG pH 7.47 H (7.35-7.45) ABG Total CO2 28.0 (22-28) mmol/L ABG O2 Saturation 97.4 (95-98) % ABG Base Excess 3.2 H (-2.0-3.0) mmol/L Boaz Test Yes ABG Potassium 4.0 (3.6-5.2) mmol/L A-a O2 Difference 99.0 mm/Hg Sodium 144.0 (132-148) mmol/L Chloride 113.0 H (98-107) mmol/L Glucose 255 H (65-105) mg/dL Lactate 0.9 (0.7-2.1) mmol/L FiO2 31.0 % Blood Gas Comments 3l/m nc rb Crit Value Read Back N Potassium (3.6-5.0) MMOL/L Carbon Dioxide (22-30) mmol/L Anion Gap (10-20) BUN (7-17) mg/dl Creatinine (0.7-1.2) mg/dl Est GFR ( Amer) Est GFR (Non-Af Amer) POC Glucose (mg/dL) 213 H (65-110) mg/dL Random Glucose (65-105) mg/dL Calcium (8.4-10.2) mg/dL Arterial Blood Potassium 4.0 (3.6-5.2) mmol/L Urine Color (YELLOW) Urine Clarity (Clear) Urine pH (5.0-8.0) Ur Specific [place] (1.003-1.030) Urine Protein (NEGATIVE) mg/dL Urine Glucose (UA) (Normal) mg/dL Urine Ketones (NEGATIVE) mg/dL Urine Blood (NEGATIVE) Urine Nitrate (NEGATIVE) Urine Bilirubin (NEGATIVE) Urine Urobilinogen (0.2-1.0) mg/dL Ur Leukocyte Esterase (Negative) Jr/uL Urine RBC (Auto) (0-3) /hpf Urine Microscopic WBC (0-5) /hpf Ur Squamous Epith Cells (0-5) /hpf Urine Bacteria (<OCC) Urine Yeast (Budding) (NEGATIVE) /hpf Laboratory Results - last 24 hr 04/29/17 04/29/17 04/29/17 11:12 14:41 16:51 WBC RBC Hgb Hct MCV MCH MCHC RDW Plt Count MPV Neut % (Auto) Lymph % (Auto) [place] % (Auto) Eos % (Auto) Baso % (Auto) Neut # (Auto) Lymph # (Auto) [place] # (Auto) Eos # (Auto) Baso # (Auto) pCO2 37 pO2 76 L HCO3 27.4 ABG pH 7.47 H ABG Total CO2 28.0 ABG O2 Saturation 97.4 ABG Base Excess 3.2 H [place] Test Yes ABG Potassium 4.0 A-a O2 Difference 99.0 Sodium 144.0 Chloride 113.0 H Glucose 255 H Lactate 0.9 FiO2 31.0 Blood Gas Comments 3l/m nc rb Crit Value Read Back N Potassium Carbon Dioxide Anion Gap BUN Creatinine Est GFR ( Amer) Est GFR (Non-Af Amer) POC Glucose (mg/dL) 213 H 285 H Random Glucose Calcium Arterial Blood Potassium 4.0 Urine Color Urine Clarity Urine pH Ur Specific [place] Urine Protein Urine Glucose (UA) Urine Ketones Urine Blood Urine Nitrate Urine Bilirubin Urine Urobilinogen Ur Leukocyte Esterase Urine RBC (Auto) Urine Microscopic WBC Ur Squamous Epith Cells Urine Bacteria Urine Yeast (Budding) 04/29/17 04/30/17 04/30/17 21:04 00:27 04:38 WBC RBC Hgb Hct MCV MCH MCHC RDW Plt Count MPV Neut % (Auto) Lymph % (Auto) [place] % (Auto) Eos % (Auto) Baso % (Auto) Neut # (Auto) Lymph # (Auto) [place] # (Auto) Eos # (Auto) Baso # (Auto) pCO2 pO2 HCO3 ABG pH ABG Total CO2 ABG O2 Saturation ABG Base Excess [place] Test ABG Potassium A-a O2 Difference Sodium Chloride Glucose Lactate FiO2 Blood Gas Comments Crit Value Read Back Potassium Carbon Dioxide Anion Gap BUN Creatinine Est GFR ( Amer) Est GFR (Non-Af Amer) POC Glucose (mg/dL) 259 H 168 H Random Glucose Calcium Arterial Blood Potassium Urine Color Yellow Urine Clarity Turbid Urine pH 5.0 Ur Specific [place] 1.030 Urine Protein 100 Urine Glucose (UA) >=500 Urine Ketones Trace Urine Blood Large Urine Nitrate Negative Urine Bilirubin Negative Urine Urobilinogen 0.2-1.0 Ur Leukocyte Esterase Large Urine RBC (Auto) 802 H Urine Microscopic WBC 559 H Ur Squamous Epith Cells 8 H Urine Bacteria Few H Urine Yeast (Budding) Many H 04/30/17 04/30/17 04:45 04:45 WBC 10.1 RBC 4.05 Hgb 11.6 L Hct 35.7 MCV 88.2 MCH 28.6 MCHC 32.4 L RDW 14.6 H Plt Count 285 MPV 10.2 Neut % (Auto) 72.5 Lymph % (Auto) 16.9 L [place] % (Auto) 9.0 Eos % (Auto) 1.2 Baso % (Auto) 0.4 Neut # (Auto) 7.3 H Lymph # (Auto) 1.7 [place] # (Auto) 0.9 H Eos # (Auto) 0.1 Baso # (Auto) 0.0 pCO2 pO2 HCO3 ABG pH ABG Total CO2 ABG O2 Saturation ABG Base Excess [place] Test ABG Potassium A-a O2 Difference Sodium 145 Chloride 108 H Glucose Lactate FiO2 Blood Gas Comments Crit Value Read Back Potassium 3.7 Carbon Dioxide 28 Anion Gap 13 BUN 23 H Creatinine 0.5 L Est GFR ( Amer) > 60 Est GFR (Non-Af Amer) > 60 POC Glucose (mg/dL) Random Glucose 193 H Calcium 8.8 Arterial Blood Potassium Urine Color Urine Clarity Urine pH Ur Specific [place] Urine Protein Urine Glucose (UA) Urine Ketones Urine Blood Urine Nitrate Urine Bilirubin Urine Urobilinogen Ur Leukocyte Esterase Urine RBC (Auto) Urine Microscopic WBC Ur Squamous Epith Cells Urine Bacteria Urine Yeast (Budding) Fingerstick Blood Sugar Results: 168 Assessment/Plan - Assessment and Plan (Free Text) Assessment: 1. Acute hypercapnic respiratory failure Aspiration pneumonia and patient's inability to handle secretions due to AMS/ CVA Extubated 04/28 and at present saturating 96 5 on 3 L O2 via NC, with weak cough reflex, unable to expectorate PO2 77 continue Duonebs RTC Keep NPO with tube feeds (Glucerna) . Speech eval Received full course of IV Meropenem and Vancomycin as per ID. All antibiotics discontinued at present Continue respiratory support,, aspiration precautions 2. Acute ischemic stroke Acute stroke to right frontal lobe that progressed to right [facility] radiata and centrum [place] stroke Developed worsening mental status, unable to handle secretions, aspirating , with acute respiratory failure requiring intubation . s/p extubation Aphasic with left side weakness Continue ASA, statin, glycemic control, eliquis( empirically started by neuro) on Depakote 500 mg IV Q12 for mood stabilizer On Enalparil 2.5 mg BID for BP control .Will start Metoprolol XL [address] head showed stable stroke Keep NPO w tube feedings: Speech therapy recommended STRICT NPO and will continue to follow for dysphagia tx and diet tolerance Continue PT / OT Will need peg placement if no improvement of dysphagia. Plan for JOHN 3. Aspiration Pneumonia/ pneumonitis Received IV meropenem and Vanco-- d/c ID and pulmonary were consulted Blood c/s : neg so far Repeat CXR on 04/27 shows no active disease 4 .Uncontrolled DM with hyperglycemia Continue accuchecks, insulin coverage on Levemir to 28 units q hs, cont Glucotrol, prandin , Januvia Hgb A1c 16 NPO until speech eval post extubation 5. Hypertension permissive hypertension while stroke was evolving on enalapril 2.5 mg PO bid Start Metoprolol XL 25 mg po QD Monitor flow 6. Diarrhea c diff negative x 3 improved 9 DVT ppx on eliquis
--- NOTE | 2017-04-30 15:35 | CP.PCM.PN ---
Subjective - Date & Time of Evaluation Date of Evaluation: 04/30/17 Time of Evaluation: 14:40 - Subjective Subjective: F/U Respiratory Failure Objective - Vital Signs/Intake and Output Vital Signs (last 24 hours): Temp Pulse Resp BP Pulse Ox 98.6 F 110 H 26 H 148/50 L 95 04/30/17 12:00 04/30/17 12:00 04/30/17 12:00 04/30/17 12:00 04/30/17 12:00 Intake and Output: 04/30/17 04/30/17 06:59 18:59 Intake Total 1174 350 Output Total 520 Balance 654 350 - Medications Medications: Current Medications Acetaminophen (Tylenol 325mg Tab) 650 mg PO Q6 PRN PRN Reason: fever > 100.4 Last Admin: 04/29/17 04:06 Dose: 650 mg Acetaminophen (Tylenol 650 Mg Supp) 650 mg DC Q4 PRN PRN Reason: Fever >100.4 F Last Admin: 04/29/17 15:58 Dose: 650 mg Apixaban (Eliquis) 2.5 mg PO BID [facility] PRN Reason: Protocol Last Admin: 04/30/17 08:45 Dose: 2.5 mg Aspirin (Aspirin Chewable) 81 mg PO DAILY [facility] Last Admin: 04/30/17 08:43 Dose: 81 mg Atorvastatin Calcium (Lipitor) 40 mg PO HS [facility] Last Admin: 04/29/17 21:43 Dose: 40 mg Bacitracin (Bacitracin Oint) 1 applic TOP BID [facility] Last Admin: 04/30/17 08:44 Dose: 1 applic Dimethicone (Proshield Plus Skin Protectant) 1 applic TOP Q8 PRN PRN Reason: Dry skin Last Admin: 04/29/17 08:19 Dose: 1 applic Donepezil HCl (Aricept) 5 mg PO HS [facility] Last Admin: 04/29/17 21:10 Dose: 5 mg Enalapril Maleate (Vasotec) 2.5 mg PO BID [facility] Last Admin: 04/30/17 08:50 Dose: 2.5 mg Glipizide (Glucotrol Xl) 10 mg PO BRKDIN [facility] Last Admin: 04/30/17 08:45 Dose: 10 mg Valproate Sodium 500 mg/ (Sodium Chloride) 105 mls @ 105 mls/hr IVPB Q12 [facility] PRN Reason: As Directed Last Admin: 04/30/17 08:44 Dose: 105 mls/hr Insulin Detemir (Levemir) 28 units SC HS [facility] Last Admin: 04/29/17 21:37 Dose: 28 units Insulin Human Regular (Humulin R) 0 units SC ACHS [facility] PRN Reason: Protocol Last Admin: 04/30/17 12:16 Dose: 2 units Ipratropium [place] (Atrovent) 0.5 mg IH RQ8 [facility] Last Admin: 04/30/17 08:27 Dose: 0.5 mg Labetalol HCl (Trandate) 100 mg PO BID [facility] Last Admin: 04/30/17 08:50 Dose: 100 mg Levalbuterol HCl (Xopenex) 0.63 mg INH RQ8 [facility] Last Admin: 04/30/17 08:27 Dose: 0.63 mg Metoprolol Succinate (Toprol Xl) 25 mg PO DAILY [facility] Pantoprazole Sodium (Protonix Inj) 40 mg IVP DAILY [facility] Last Admin: 04/30/17 08:47 Dose: 40 mg Repaglinide (Prandin) 1 mg PO TID [facility] Last Admin: 04/30/17 12:17 Dose: 1 mg Sitagliptin Phosphate (Januvia) 50 mg PO BID [facility] Last Admin: 04/30/17 08:46 Dose: 50 mg - Labs Labs: 04/30/17 04:45 04/30/17 04:45 PT 9.7 Seconds (9.8-13.1) L 04/12/17 21:15 INR 0.9 (0.9-1.2) 04/12/17 21:15 APTT 26.0 Seconds (25.6-37.1) 04/12/17 21:15 - Constitutional Appears: Chronically Ill - Head Exam Head Exam: NORMAL INSPECTION - Eye Exam Eye Exam: PERRL - ENT Exam Additional comments: On high flow O2 - Neck Exam Neck Exam: Normal Inspection - Respiratory Exam Respiratory Exam: Rhonchi (scattered at bases) - Cardiovascular Exam Cardiovascular Exam: REGULAR RHYTHM - GI/Abdominal Exam GI & Abdominal Exam: Soft, Normal Bowel Sounds - Extremities Exam Extremities Exam: Normal Inspection - Back Exam Back Exam: NORMAL INSPECTION - Neurological Exam Neurological Exam: Alert Additional comments: Follows commands, not moving LUE, limited movements LLE on commands. - Psychiatric Exam Additional comments: Calm - Skin Skin Exam: Warm Assessment and Plan (1) Respiratory failure Status: Acute (2) Aspiration pneumonia Status: Acute (3) CVA (cerebral vascular accident) Status: Acute
[2017-04-30] MEDS: Insulin Detemir 100 Units/ml Inj SC SCH (21:34)
[2017-05-01] MEDS: Ipratropium 0.02% Inhal Soln (0.5 mg/2.5 ml) UD IH SCH ×3 (00:02→15:51)
[2017-05-01] MEDS: Levalbuterol 0.63 MG/3 ML Inhal Soln UD INH SCH ×2 (00:02→15:50)
[2017-05-01 05:28] LABS: HEMOGLOBIN 11.7 g/dL (12.0-16.0); MEAN CELL VOLUME 88.4 fl (81.0-99.0); MEAN CORPUSCULAR HEMOGLOBIN 28.2 pg (27.0-31.0); RBC 4.12 Mil/uL (3.80-5.20); RED CELL DISTRIBUTION WIDTH 14.4 % (11.5-14.5)
[2017-05-01 05:48] LABS: BLOOD UREA NITROGEN 23 mg/dl (7-17); CALCIUM 8.7 mg/dL (8.4-10.2); GFR AFRICAN-AMERICAN > 60; GFR NON-AFRICAN AMERICAN > 60
[2017-05-01] MEDS: Insulin Regular 100 units/ml SC SCH ×4 (06:44→22:41)
--- NOTE | 2017-05-01 08:28 | CP.PCM.PN ---
Subjective - Date & Time of Evaluation Date of Evaluation: 05/01/17 Time of Evaluation: 08:00 - Subjective Subjective: Patient seen and examined bedside. Much more awake today , moving all 4 extremities with some LUE weakness left facial droop. Asking for water and coffee, following commands. Able to speak few simple sentences BP 154/71 HR 75 RR 22 afebrile WBC 9 K HGb 11.7 Plt 312K with coughing spells when trying to take sips of water Objective - Vital Signs/Intake and Output Vital Signs (last 24 hours): Temp Pulse Resp BP Pulse Ox 98.5 F 75 22 154/71 H 98 05/01/17 08:00 05/01/17 08:00 05/01/17 08:00 05/01/17 08:00 05/01/17 08:00 Intake and Output: 05/01/17 05/01/17 06:59 18:59 Intake Total 1200 Output Total 600 Balance 600 - Medications Medications: Current Medications Acetaminophen (Tylenol 325mg Tab) 650 mg PO Q6 PRN PRN Reason: fever > 100.4 Last Admin: 04/29/17 04:06 Dose: 650 mg Acetaminophen (Tylenol 650 Mg Supp) 650 mg SD Q4 PRN PRN Reason: Fever >100.4 F Last Admin: 04/29/17 15:58 Dose: 650 mg Apixaban (Eliquis) 2.5 mg PO BID [facility] PRN Reason: Protocol Last Admin: 04/30/17 16:22 Dose: 2.5 mg Aspirin (Aspirin Chewable) 81 mg PO DAILY [facility] Last Admin: 04/30/17 08:43 Dose: 81 mg Atorvastatin Calcium (Lipitor) 40 mg PO HS [facility] Last Admin: 04/30/17 21:34 Dose: 40 mg Bacitracin (Bacitracin Oint) 1 applic TOP BID [facility] Last Admin: 04/30/17 16:22 Dose: 1 applic Dimethicone (Proshield Plus Skin Protectant) 1 applic TOP Q8 PRN PRN Reason: Dry skin Last Admin: 04/29/17 08:19 Dose: 1 applic Donepezil HCl (Aricept) 5 mg PO [facility] Last Admin: 04/30/17 21:34 Dose: 5 mg Enalapril Maleate (Vasotec) 2.5 mg PO BID [facility] Last Admin: 04/30/17 16:25 Dose: 2.5 mg Glipizide (Glucotrol Xl) 10 mg PO BRKDIN [facility] Last Admin: 04/30/17 16:23 Dose: 10 mg Valproate Sodium 500 mg/ (Sodium Chloride) 105 mls @ 105 mls/hr IVPB Q12 [facility] PRN Reason: As Directed Last Admin: 04/30/17 21:00 Dose: 105 mls/hr Insulin Detemir (Levemir) 28 units SC HS [facility] Last Admin: 04/30/17 21:34 Dose: 28 units Insulin Human Regular (Humulin R) 0 units SC ACHS [facility] PRN Reason: Protocol Last Admin: 05/01/17 06:44 Dose: 2 units Ipratropium [place] (Atrovent) 0.5 mg IH RQ8 [facility] Last Admin: 05/01/17 08:12 Dose: 0.5 mg Labetalol HCl (Trandate) 100 mg PO BID [facility] Last Admin: 04/30/17 16:25 Dose: 100 mg Levalbuterol HCl (Xopenex) 0.63 mg INH RQ8 [facility] Last Admin: 05/01/17 00:02 Dose: 0.63 mg Metoprolol Succinate (Toprol Xl) 25 mg PO DAILY [facility] Last Admin: 04/30/17 16:24 Dose: 25 mg Pantoprazole Sodium (Protonix Inj) 40 mg IVP DAILY [facility] Last Admin: 04/30/17 08:47 Dose: 40 mg Repaglinide (Prandin) 1 mg PO TID [facility] Last Admin: 04/30/17 16:24 Dose: 1 mg Sitagliptin Phosphate (Januvia) 50 mg PO BID [facility] Last Admin: 04/30/17 16:23 Dose: 50 mg - Labs Labs: 05/01/17 04:00 05/01/17 05:28 PT 9.7 Seconds (9.8-13.1) L 04/12/17 21:15 INR 0.9 (0.9-1.2) 04/12/17 21:15 APTT 26.0 Seconds (25.6-37.1) 04/12/17 21:15 - Constitutional Appears: Non-toxic, No Acute Distress - Head Exam Head Exam: ATRAUMATIC, NORMAL INSPECTION, NORMOCEPHALIC Additional comments: left facial droop - Eye Exam Eye Exam: EOMI, Normal appearance, PERRL Pupil Exam: NORMAL ACCOMODATION - ENT Exam ENT Exam: Mucous Membranes Dry - Neck Exam Neck Exam: Full ROM, Normal Inspection - Respiratory Exam Respiratory Exam: absent: Wheezes Additional comments: coarse breath sounds bilaterally - Cardiovascular Exam Cardiovascular Exam: REGULAR RHYTHM, RRR, +S1, +S2. absent: JVD - GI/Abdominal Exam GI & Abdominal Exam: Soft, Normal Bowel Sounds. absent: Distended, Guarding, Rebound - Rectal Exam Rectal Exam: Deferred - Extremities Exam Extremities Exam: Full ROM, Normal Capillary Refill, Normal Inspection. absent : Pedal Edema - Neurological Exam Neurological Exam: Alert, Awake Neuro motor strength exam: Left Upper Extremity: 4, Right Upper Extremity: 5, Left Lower Extremity: 5, Right Lower Extremity: 5 Additional comments: left facial droop dysarthria - Psychiatric Exam Psychiatric exam: Normal Affect - Skin Skin Exam: Dry, Pallor, Warm Assessment and Plan - Assessment and Plan (Free Text) Assessment: 72 y/o F PMH DM, HTN, HLD brought to the ED with acutely worsening alteration of mental status and not as verbal . She presented with left facial droop and and some expressive aphasia.CT head was neg for acute CVA or bleed. Patient glucose was elevated 563. She was admitted initially in telemetry for further stroke work up and diabetes control . Neuro consulted.She was started on ASA, Statin, plavix,lovenox , Insulin and IVF .Her BP initially was kept elevated to allow permissive hypertension. MRI head showed acute stroke in right frontal lobe white matter 2/2 While in telemetry , the patient developed worsening BAILON and some left arm weakness.Patient became confused , agitated , restless ,not following any commands. She also started to have fever. Repeat MRI of the Brain : showed acute/ subacute stroke in right mcleod radiata and centrum ovale She was then transferred to ICU for close monitoring She continued to spike fevers for > 48 hours with no obvious source of infection and normal WBC count. All work up sent including CXR, UA,urine cx, blood cx were negative for infection so fever thought to be of central origin and no antibiotics were started 2/7 While in Tele , GEOMETRICIAN called for stridor and respiratory distress . She developed acute hypercapnic respiratory failure was intubated and transferred to ICU. CXR showed new infiltrate, poss Asp PNA.She was started on IV antibiotics. 04/28 extubated after weaning trial and placed on NRM. placed on BIpap and treated for stridor with solumedrol IV, Duonebs and Racemic epi INH With weak cough reflex , unable to expectorate 05/01 Neurologically much improved, awake , alert follows commands , with dysarthria , coughing spells when trying to sip some water , hwemodynamically stable, afebrile On tube feeding 1. Acute hypercapnic respiratory failure Most likely secondary to aspiration pneumonia and patient's inability to handle secretions due to AMS/ CVA extubated 04/28 and at present saturating 96 5 on 3 L O2 via NC, with weak cough reflex, unable to expectorate PO2 77 Repeat CXR showed no active disease With thick mucoid respiratory secretions unable to expectorate.Start Acetylcysteine INH. Keep HOB elevated continue Duonebs RTC Repeat CXR in AM Respiratory toilet with dfrequent suctioning as tolerated Has coughing spells when tries to sip some water.Keep NPO with tube feeds ( Glucerna) .Will order Video swallow eval. Speech eval Received full course of IV Meropenem and Vancomycin as per ID. All antibiotics discontinued at present Continue respiratory support, aspiration precautions 2. Progressive Acute ischemic stroke with AMS / lethargy initial presentation of patient was : acute stroke to right frontal lobe that progressed to right mcleod radiata and centrum semiovale stroke Developed worsening mental status, unable to handle secretions, aspirating , with acute respiratory failure requiring intubation . s/p extubation Significant improvement today , moves all 4 extremities ,follows commands, some left side weakness , left facial droop and dysarthria Continue ASA, statin, glycemic control, eliquis( empirically started by neuro) continue BP control with Enalapril and metoprolol Discussed with neuro . Will discontinue Depakote to avoid sedation Continue aricept Repeat CT head showed stable stroke Keep NPO with tube feedings. coughing spells with few sips of water. Will order Video Swallow eval Continue PT / OT Plan for rehab 3. Suspected aspiration Pneumonia/ pneumonitis initially with CXR findings of new right lobe infiltrate prior to intubation and large secretions suctioned during intubation Received IV meropenem and Vanco-- d/c ID and pulmonary were consulted Blood c/s : neg so far Repeat CXR on 04/27 shows no active disease will repeat CXR in Am, since she continuos to have thick mucoid secretions unable to expectorate 4 .Uncontrolled DM with hyperglycemia Continue accuchecks, insulin coverage ncrease Levemir to 30 units HS Today cont Glucotrol, prandin , Januvia Hgb A1c 16 NPO until cleared by speech therapist on Glucerna NGT feeding 5. Hypertension permissive hypertension while stroke was evolving on enalapril 2.5 mg PO bid and metoprolol 6. Dyslipidemia c/w Atorvastatin 40 mg PO 7. Diabetic foot calluses podiatry consulted and following Doppler US of LE - good arterial flow 8. Diarrhea- resolved c dif x 3 negative improved 9. r/o UTI urine appears cloudy with Many WBC and bacteria Patient has no fever no WBC will remove Ndiaye and send urine cx Hold of antibiotics for now 10. DVT ppx on eliquis
--- NOTE | 2017-05-01 08:40 | CP.PCM.PN ---
Subjective - Date & Time of Evaluation Date of Evaluation: 05/01/17 Time of Evaluation: 08:38 - Subjective Subjective: Ms. Black was seen and examined at the bedside in ICU. She is more alert, oriented able to make pleasant conversation. She is able to move all extremities spontaneously. She is tolerating NGT feeding. She is also able to follow simple commands and let the staff knows her needs. She is requesting PO intake especially coffee. She was restless last night and pulled her flexiseal. She remains on bilateral wrist restraints for patient safety. There was no untoward events overnight. Objective - Vital Signs/Intake and Output Vital Signs (last 24 hours): Temp Pulse Resp BP Pulse Ox 98.5 F 75 22 154/71 H 98 05/01/17 08:00 05/01/17 08:00 05/01/17 08:00 05/01/17 08:00 05/01/17 08:00 Intake and Output: 05/01/17 05/01/17 06:59 18:59 Intake Total 1200 Output Total 600 Balance 600 - Medications Medications: Current Medications Acetaminophen (Tylenol 325mg Tab) 650 mg PO Q6 PRN PRN Reason: fever > 100.4 Last Admin: 04/29/17 04:06 Dose: 650 mg Acetaminophen (Tylenol 650 Mg Supp) 650 mg [place] Q4 PRN PRN Reason: Fever >100.4 F Last Admin: 04/29/17 15:58 Dose: 650 mg Apixaban (Eliquis) 2.5 mg PO BID [facility] PRN Reason: Protocol Last Admin: 04/30/17 16:22 Dose: 2.5 mg Aspirin (Aspirin Chewable) 81 mg PO DAILY [facility] Last Admin: 04/30/17 08:43 Dose: 81 mg Atorvastatin Calcium (Lipitor) 40 mg PO HS [facility] Last Admin: 04/30/17 21:34 Dose: 40 mg Bacitracin (Bacitracin Oint) 1 applic TOP BID [facility] Last Admin: 04/30/17 16:22 Dose: 1 applic Dimethicone (Proshield Plus Skin Protectant) 1 applic TOP Q8 PRN PRN Reason: Dry skin Last Admin: 04/29/17 08:19 Dose: 1 applic Donepezil HCl (Aricept) 5 mg PO HS [facility] Last Admin: 04/30/17 21:34 Dose: 5 mg Enalapril Maleate (Vasotec) 2.5 mg PO BID [facility] Last Admin: 04/30/17 16:25 Dose: 2.5 mg Glipizide (Glucotrol Xl) 10 mg PO BRKDIN [facility] Last Admin: 04/30/17 16:23 Dose: 10 mg Valproate Sodium 500 mg/ (Sodium Chloride) 105 mls @ 105 mls/hr IVPB Q12 [facility] PRN Reason: As Directed Last Admin: 04/30/17 21:00 Dose: 105 mls/hr Insulin Detemir (Levemir) 28 units SC HS [facility] Last Admin: 04/30/17 21:34 Dose: 28 units Insulin Human Regular (Humulin R) 0 units SC ACHS [facility] PRN Reason: Protocol Last Admin: 05/01/17 06:44 Dose: 2 units Ipratropium [place] (Atrovent) 0.5 mg IH RQ8 [facility] Last Admin: 05/01/17 08:12 Dose: 0.5 mg Labetalol HCl (Trandate) 100 mg PO BID [facility] Last Admin: 04/30/17 16:25 Dose: 100 mg Levalbuterol HCl (Xopenex) 0.63 mg INH RQ8 [facility] Last Admin: 05/01/17 00:02 Dose: 0.63 mg Metoprolol Succinate (Toprol Xl) 25 mg PO DAILY [facility] Last Admin: 04/30/17 16:24 Dose: 25 mg Pantoprazole Sodium (Protonix Inj) 40 mg IVP DAILY [facility] Last Admin: 04/30/17 08:47 Dose: 40 mg Repaglinide (Prandin) 1 mg PO TID [facility] Last Admin: 04/30/17 16:24 Dose: 1 mg Sitagliptin Phosphate (Januvia) 50 mg PO BID [facility] Last Admin: 04/30/17 16:23 Dose: 50 mg - Labs Labs: 05/01/17 04:00 05/01/17 05:28 PT 9.7 Seconds (9.8-13.1) L 04/12/17 21:15 INR 0.9 (0.9-1.2) 04/12/17 21:15 APTT 26.0 Seconds (25.6-37.1) 04/12/17 21:15 - Constitutional Appears: No Acute Distress - Head Exam Head Exam: NORMAL INSPECTION - Neurological Exam Neurological Exam: Alert, Awake Neuro motor strength exam: Left Upper Extremity: 3, Right Upper Extremity: 5, Left Lower Extremity: 5, Right Lower Extremity: 5 Additional comments: Neurological improved from previous examination. She is more coherent today. Assessment and Plan (1) CVA (cerebral vascular accident) Assessment & Plan: Case discussed with Dr. Alberts, continue current medical regimen. Recommend to re -start physical, occupational and speech therapies. Swallowing re-valuation if patient can progress with PO intake. With her behavior improve, will decrease depakote form BID to daily with a plan to discontinue it. Status: Acute
[2017-05-01] MEDS: Bacitracin OINT 15GM TOP SCH ×2 (08:57→16:23)
[2017-05-01] MEDS: GlipiZIDE 10 mg SR Tab PO SCH ×2 (08:58→16:24)
[2017-05-01] MEDS: Proshield Plus GEL TOP PRN ×2 (08:58→16:32)
--- NOTE | 2017-05-01 10:40 | RAD ---
PROCEDURE: CHEST RADIOGRAPH, 1 VIEW HISTORY: r/o pneumonia COMPARISON: None available. FINDINGS: LUNGS: Clear. PLEURA: No pneumothorax or pleural fluid seen. CARDIOVASCULAR: Normal. OSSEOUS STRUCTURES: No significant abnormalities. VISUALIZED UPPER ABDOMEN: Normal. OTHER FINDINGS: None. IMPRESSION: No active disease.
[2017-05-01] MEDS: Valproic Acid 250 mg/5 ml UD Cup PO SCH (12:05)
[2017-05-01] MEDS: guaiFENesin-DM 600-30 mg ER Tab PO SCH ×2 (12:07→16:33)
[2017-05-01] MEDS: Insulin Detemir 100 Units/ml Inj SC SCH ×2 (16:26→22:42)
[2017-05-01] MEDS: Acetylcysteine 20% Inhal Soln (4ml) PO SCH (16:31)
--- NOTE | 2017-05-01 17:10 | CP.CCUPN ---
CCU Subjective - Physician Review Events Since Last Encounter (Free Text): 05/01/17 17:05 awake and responsive, significant improvement since yesterday. CCU Objective - Vital Signs / Intake & Output Vital Signs (Last 4 hours): Vital Signs Temp Pulse Resp BP Pulse Ox 05/01/17 16:00 97.5 F L 80 23 167/78 H 100 05/01/17 14:00 80 21 154/71 H 100 Intake and Output (Last 8hrs): Intake & Output 05/01/17 05/01/17 05/01/17 06:59 14:59 22:59 Intake Total 900 1100 Output Total 600 200 Balance 300 900 Weight 170 lb Intake: Oral 600 Tube Feeding 400 250 Free Water Flush 500 250 Output: Urine 300 200 Urethral (Ndiaye) 300 200 Stool 300 Other: # Bowel Movements 1 - Physical Exam Physical Exam Limitations: Positive for: Altered Mental Status Head: Positive for: Atraumatic, Normocephalic Pupils: Positive for: PERRL Conjunctiva: Positive for: Normal Mouth: Positive for: Dry Neck: Positive for: Normal Range of Motion Respiratory/Chest: Positive for: Clear to Auscultation, Rhonchi (diffuse and bilateral). Negative for: Respiratory Distress, Wheezes, Decreased Breath Sounds, Rales Cardiovascular: Positive for: Regular Rate and Rhythm, Normal S1, S2, Tachycardic Abdomen: Positive for: Normal Bowel Sounds. Negative for: Tenderness, Distention, Guarding Rectal: Positive for: Other (rectal tube in place) Upper Extremity: Positive for: Capillary Refill < 2s. Negative for: Cyanosis Lower Extremity: Negative for: Edema, CALF TENDERNESS Neurological: Positive for: Other (following simple commands) Skin: Positive for: Warm, Dry, Pale Psychiatric: Positive for: Alert - Medications Active Medications: Active Medications Generic Name Dose Route Start Last Admin Trade Name Freq PRN Reason Stop Dose Admin Acetaminophen 650 mg 04/15/17 23:34 04/29/17 04:06 Tylenol 325mg Tab PO 650 mg Q6 PRN Administration fever > 100.4 Acetaminophen 650 mg 04/21/17 20:53 04/29/17 15:58 Tylenol 650 Mg Supp SD 650 mg Q4 PRN Administration Fever >100.4 F Acetylcysteine 3 ml 05/01/17 09:00 05/01/17 16:31 Acetylcysteine 20% PO 05/03/17 09:01 Not Given BID [facility] Acetylcysteine 2 ml 05/01/17 20:00 Acetylcysteine 20% INH RBID [facility] Apixaban 2.5 mg 04/17/17 17:00 05/01/17 16:24 Eliquis PO 2.5 mg BID [facility] Administration Protocol Aspirin 81 mg 04/19/17 13:00 05/01/17 08:57 Aspirin Chewable PO 81 mg DAILY [facility] Administration Atorvastatin Calcium 40 mg 04/13/17 22:00 04/30/17 21:34 Lipitor PO 40 mg HS [facility] Administration Bacitracin 1 applic 04/16/17 09:00 05/01/17 16:23 Bacitracin Oint TOP 1 applic BID [facility] Administration Dimethicone 1 applic 04/27/17 11:37 05/01/17 16:32 Proshield Plus Skin Protectant TOP 1 applic Q8 PRN Administration Dry skin Donepezil HCl 5 mg 04/29/17 22:00 04/30/17 21:34 Aricept PO 5 mg HS [facility] Administration Enalapril Maleate 2.5 mg 04/19/17 17:00 05/01/17 16:33 Vasotec PO 2.5 mg BID [facility] Administration Glipizide 10 mg 04/14/17 08:00 05/01/17 16:24 Glucotrol Xl PO 10 mg BRKDIN [facility] Administration Guaifenesin/Dextromethorphan 1 tab 05/01/17 09:00 05/01/17 16:33 Mucinex-Dm 600-30 Mg PO 1 tab BID [facility] Administration Insulin Detemir 30 units 05/01/17 09:00 05/01/17 16:26 Levemir SC Not Given HS [facility] Insulin Human Regular 0 units 04/13/17 07:30 05/01/17 16:25 Humulin R SC 1 units ACHS [facility] Administration Protocol Ipratropium [place] 0.5 mg 04/29/17 16:00 05/01/17 15:51 Atrovent IH 0.5 mg RQ8 [facility] Administration Labetalol HCl 100 mg 05/01/17 09:00 05/01/17 16:33 Trandate PO 100 mg BID [facility] Administration Levalbuterol HCl 0.63 mg 04/29/17 16:00 05/01/17 15:50 Xopenex INH Not Given RQ8 [facility] Pantoprazole Sodium 40 mg 04/22/17 09:00 05/01/17 08:59 Protonix Inj IVP 40 mg DAILY [facility] Administration Repaglinide 1 mg 04/14/17 09:00 05/01/17 16:33 Prandin PO 1 mg TID [facility] Administration Sitagliptin Phosphate 50 mg 04/14/17 09:00 05/01/17 16:25 Januvia PO 50 mg BID [facility] Administration Valproate Sodium 250 mg 05/01/17 09:00 05/01/17 12:05 Depakene Oral Soln PO 250 mg DAILY [facility] Administration - Patient Studies Lab Studies: Microbiology Studies 04/28/17 13:57 Blood Culture - Preliminary Blood NO GROWTH AFTER 3 DAYS 04/28/17 21:10 Gram Stain - Final Sputum Sputum Culture - Final Yeast Species 04/29/17 19:20 Blood Culture - Preliminary Blood-Venous NO GROWTH AFTER 24 HOURS 04/29/17 19:20 Blood Culture - Preliminary Blood-Venous NO GROWTH AFTER 24 HOURS 04/28/17 21:10 Urine Culture - Final Urine,Ndiaye Yeast Species Lab Studies 05/01/17 05/01/17 05/01/17 Range/Units 15:53 11:06 05:37 WBC (4.8-10.8) K/uL RBC (3.80-5.20) Mil/uL Hgb (12.0-16.0) g/dL Hct (34.0-47.0) % MCV (81.0-99.0) fl MCH (27.0-31.0) pg MCHC (33.0-37.0) g/dL RDW (11.5-14.5) % Plt Count (130-400) K/uL Sodium (132-148) mmol/l Potassium (3.6-5.0) MMOL/L Chloride (98-107) mmol/L Carbon Dioxide (22-30) mmol/L Anion Gap (10-20) BUN (7-17) mg/dl Creatinine (0.7-1.2) mg/dl Est GFR ( Amer) Est GFR (Non-Af Amer) POC Glucose (mg/dL) 167 H 209 H 232 H (65-110) mg/dL Random Glucose (65-105) mg/dL Calcium (8.4-10.2) mg/dL 05/01/17 05/01/17 04/30/17 Range/Units 05:28 04:00 21:15 WBC 9.0 (4.8-10.8) K/uL RBC 4.12 (3.80-5.20) Mil/uL Hgb 11.7 L (12.0-16.0) g/dL Hct 36.5 (34.0-47.0) % MCV 88.4 (81.0-99.0) fl MCH 28.2 (27.0-31.0) pg MCHC 32.0 L (33.0-37.0) g/dL RDW 14.4 (11.5-14.5) % Plt Count 312 (130-400) K/uL Sodium 144 (132-148) mmol/l Potassium 3.9 (3.6-5.0) MMOL/L Chloride 104 (98-107) mmol/L Carbon Dioxide 30 (22-30) mmol/L Anion Gap 14 (10-20) BUN 23 H (7-17) mg/dl Creatinine 0.5 L (0.7-1.2) mg/dl Est GFR ( Amer) > 60 Est GFR (Non-Af Amer) > 60 POC Glucose (mg/dL) 259 H (65-110) mg/dL Random Glucose 250 H (65-105) mg/dL Calcium 8.7 (8.4-10.2) mg/dL Laboratory Results - last 24 hr 04/30/17 05/01/17 05/01/17 21:15 04:00 05:28 WBC 9.0 RBC 4.12 Hgb 11.7 L Hct 36.5 MCV 88.4 MCH 28.2 MCHC 32.0 L RDW 14.4 Plt Count 312 Sodium 144 Potassium 3.9 Chloride 104 Carbon Dioxide 30 Anion Gap 14 BUN 23 H Creatinine 0.5 L Est GFR ( Amer) > 60 Est GFR (Non-Af Amer) > 60 POC Glucose (mg/dL) 259 H Random Glucose 250 H Calcium 8.7 05/01/17 05/01/17 05/01/17 05:37 11:06 15:53 WBC RBC Hgb Hct MCV MCH MCHC RDW Plt Count Sodium Potassium Chloride Carbon Dioxide Anion Gap BUN Creatinine Est GFR ( Amer) Est GFR (Non-Af Amer) POC Glucose (mg/dL) 232 H 209 H 167 H Random Glucose Calcium Fingerstick Blood Sugar Results: 167 Assessment/Plan - Assessment and Plan (Free Text) Assessment: 1. Acute respiratory failure , hypoxic and hypercapnic Aspiration pneumonia extubated 04/28 and at present saturating 96 5 on 3 L O2 via NC, with weak cough reflex, unable to expectorate PO2 77 Keep HOB elevated continue Duonebs RTC Repeat CXR in AM Respiratory toilet with dfrequent suctioning as tolerated Has coughing spells when tries to sip some water.Keep NPO with tube feeds ( Glucerna) .Will order Video swallow eval. Speech eval Received full course of IV Meropenem and Vancomycin as per ID. All antibiotics discontinued at present Continue respiratory support, aspiration precautions 2. Acute ischemic stroke with AMS / lethargy i Improving, moves all 4 extremities ,follows commands, some left side weakness , left facial droop and dysarthria Continue ASA, statin, glycemic control, eliquis( empirically started by neuro) continue BP control with Enalapril and metoprolol Neuro discontinue Depakote to avoid sedation Continue aricept Repeat CT head showed stable stroke Keep NPO with tube feedings. coughing spells with few sips of water. Will order Video Swallow eval Continue PT / OT Plan for rehab 3-Aspiration PNA Received IV meropenem and Vanco-- d/c ID and pulmonary were consulted Blood c/s : neg so far Repeat CXR on 04/27 shows no active disease will repeat CXR in Am, since she continuos to have thick mucoid secretions unable to expectorate 4 .Uncontrolled DM with hyperglycemia Continue accuchecks, insulin coverage ncrease Levemir to 30 units HS Today cont Glucotrol, prandin , Januvia Hgb A1c 16 NPO until cleared by speech therapist on Glucerna NGT feeding 5. Diabetic foot calluses podiatry consulted and following Doppler US of LE - good arterial flow 6. UTI urine appears cloudy with Many WBC and bacteria Patient has no fever no WBC will remove Ndiaye and send urine cx Hold of antibiotics for now 10. DVT ppx on eliquis
[2017-05-02] MEDS: Ipratropium 0.02% Inhal Soln (0.5 mg/2.5 ml) UD IH SCH ×2 (00:35→07:50)
[2017-05-02] MEDS: Levalbuterol 0.63 MG/3 ML Inhal Soln UD INH SCH ×3 (00:35→16:01)
[2017-05-02 05:30] LABS: HEMOGLOBIN 11.3 g/dL (12.0-16.0); MEAN CORPUSCULAR HEMOGLOBIN 27.5 pg (27.0-31.0); MEAN CORPUSCULAR HGB CONC 31.2 g/dL (33.0-37.0); RBC 4.12 Mil/uL (3.80-5.20); RED CELL DISTRIBUTION WIDTH 14.6 % (11.5-14.5); WHITE BLOOD COUNT 13.3 K/uL (4.8-10.8)
[2017-05-02 05:36] LABS: ALB/GLOB RATIO 0.9 (1.0-2.1); ALT/SGPT 27 U/L (9-52); AST/SGOT 14 U/L (14-36); BLOOD UREA NITROGEN 24 mg/dl (7-17); CALCIUM 8.8 mg/dL (8.4-10.2); GFR AFRICAN-AMERICAN > 60; GFR NON-AFRICAN AMERICAN > 60
[2017-05-02] MEDS: Insulin Regular 100 units/ml SC SCH ×4 (06:50→21:39)
--- NOTE | 2017-05-02 07:42 | CP.CCUPN ---
CCU Subjective - Physician Review Events Since Last Encounter (Free Text): 05/02/17 The patient was Seen/interviewed and examined by me at the bedside during ICU round, Medical records reviewed and Management issues were discussed and formulated with the house staff. Events reviewed Awake and responsive, significant improvement over last couple of days. Repeat head Ct scan today 05/02/17 16:58 Patient again failed swallow evaluation today, However in light of marked improvement of mental status, will hold off Peg placement and get sallow re- evaluation tomorrow. 05/02/2017 09:53:10: CT HEAD WITHOUT CONTRAST. IMPRESSION: Evolving subacute right MCA territory infarction involving the right frontal subcortical white matter, mcleod radiata and basal ganglia. No evidence of hemorrhagic transformation. Old lacunar infarctions in the right basal ganglia and left anterior limb of internal capsule, thalamus and basal ganglia. CCU Objective - Vital Signs / Intake & Output Vital Signs (Last 4 hours): Vital Signs Temp Pulse Resp BP Pulse Ox 05/02/17 06:00 76 21 149/71 95 05/02/17 04:00 97.9 F 69 19 140/54 L 95 Intake and Output (Last 8hrs): Intake & Output 05/01/17 05/02/17 05/02/17 22:59 06:59 14:59 Intake Total 200 900 Output Total 100 Balance 200 800 Intake: Tube Feeding 200 400 Free Water Flush 500 Output: Urine 100 Urine, Voided 100 Other: # Voids Urine, Voided 1 # Bowel Movements 1 - Physical Exam Head: Positive for: Atraumatic, Normocephalic Pupils: Positive for: PERRL Conjunctiva: Positive for: Normal Mouth: Positive for: Dry Neck: Positive for: Normal Range of Motion Respiratory/Chest: Positive for: Clear to Auscultation, Rhonchi (diffuse and bilateral). Negative for: Respiratory Distress, Wheezes, Decreased Breath Sounds, Rales Cardiovascular: Positive for: Regular Rate and Rhythm, Normal S1, S2, Tachycardic Abdomen: Positive for: Normal Bowel Sounds. Negative for: Tenderness, Distention, Guarding Rectal: Positive for: Other (rectal tube in place) Upper Extremity: Positive for: Capillary Refill < 2s. Negative for: Cyanosis Lower Extremity: Negative for: Edema, CALF TENDERNESS Neurological: Positive for: Other (following simple commands) Skin: Positive for: Warm, Dry, Pale Psychiatric: Positive for: Alert - Medications Active Medications: Active Medications Generic Name Dose Route Start Last Admin Trade Name Freq PRN Reason Stop Dose Admin Acetaminophen 650 mg 04/15/17 23:34 04/29/17 04:06 Tylenol 325mg Tab PO 650 mg Q6 PRN Administration fever > 100.4 Acetaminophen 650 mg 04/21/17 20:53 04/29/17 15:58 Tylenol 650 Mg Supp GA 650 mg Q4 PRN Administration Fever >100.4 F Acetylcysteine 3 ml 05/01/17 09:00 05/01/17 16:31 Acetylcysteine 20% PO 05/03/17 09:01 Not Given BID BRIAN Acetylcysteine 2 ml 05/01/17 20:00 Acetylcysteine 20% INH RBID BRIAN Apixaban 2.5 mg 04/17/17 17:00 05/01/17 16:24 Eliquis PO 2.5 mg BID BRIAN Administration Protocol Aspirin 81 mg 04/19/17 13:00 05/01/17 08:57 Aspirin Chewable PO 81 mg DAILY BRIAN Administration Atorvastatin Calcium 40 mg 04/13/17 22:00 05/01/17 22:37 Lipitor PO 40 mg HS BRIAN Administration Bacitracin 1 applic 04/16/17 09:00 05/01/17 16:23 Bacitracin Oint TOP 1 applic BID BRIAN Administration Dimethicone 1 applic 04/27/17 11:37 05/01/17 16:32 Proshield Plus Skin Protectant TOP 1 applic Q8 PRN Administration Dry skin Donepezil HCl 5 mg 04/29/17 22:00 05/01/17 22:37 Aricept PO 5 mg HS BRIAN Administration Enalapril Maleate 2.5 mg 04/19/17 17:00 05/01/17 16:33 Vasotec PO 2.5 mg BID BRIAN Administration Glipizide 10 mg 04/14/17 08:00 05/01/17 16:24 Glucotrol Xl PO 10 mg BRKDIN BRIAN Administration Guaifenesin/Dextromethorphan 1 tab 05/01/17 09:00 05/01/17 16:33 Mucinex-Dm 600-30 Mg PO 1 tab BID BRIAN Administration Insulin Detemir 30 units 05/01/17 09:00 05/01/17 22:42 Levemir SC 30 units HS BRIAN Administration Insulin Human Regular 0 units 04/13/17 07:30 05/02/17 06:50 Humulin R SC 2 units ACHS BRIAN Administration Protocol Ipratropium [place] 0.5 mg 04/29/17 16:00 05/02/17 00:35 Atrovent IH 0.5 mg RQ8 BRIAN Administration Labetalol HCl 100 mg 05/01/17 09:00 05/01/17 16:33 Trandate PO 100 mg BID BRIAN Administration Levalbuterol HCl 0.63 mg 04/29/17 16:00 05/02/17 00:35 Xopenex INH Not Given RQ8 BRIAN Pantoprazole Sodium 40 mg 04/22/17 09:00 05/01/17 08:59 Protonix Inj IVP 40 mg DAILY BRIAN Administration Repaglinide 1 mg 04/14/17 09:00 05/01/17 16:33 Prandin PO 1 mg TID BRIAN Administration Sitagliptin Phosphate 50 mg 04/14/17 09:00 05/01/17 16:25 Januvia PO 50 mg BID BRIAN Administration Valproate Sodium 250 mg 05/01/17 09:00 05/01/17 12:05 Depakene Oral Soln PO 250 mg DAILY BRIAN Administration - Patient Studies Lab Studies: Microbiology Studies 04/29/17 19:20 Blood Culture - Preliminary Blood-Venous NO GROWTH AFTER 48 HOURS 04/29/17 19:20 Blood Culture - Preliminary Blood-Venous NO GROWTH AFTER 48 HOURS 04/28/17 13:57 Blood Culture - Preliminary Blood NO GROWTH AFTER 3 DAYS 04/28/17 21:10 Gram Stain - Final Sputum Sputum Culture - Final Yeast Species Lab Studies 05/02/17 05/02/17 05/02/17 Range/Units 06:17 04:30 04:30 WBC 13.3 H (4.8-10.8) K/uL RBC 4.12 (3.80-5.20) Mil/uL Hgb 11.3 L (12.0-16.0) g/dL Hct 36.2 (34.0-47.0) % MCV 88.0 (81.0-99.0) fl MCH 27.5 (27.0-31.0) pg MCHC 31.2 L (33.0-37.0) g/dL RDW 14.6 H (11.5-14.5) % Plt Count 318 (130-400) K/uL Sodium 142 (132-148) mmol/l Potassium 4.1 (3.6-5.0) MMOL/L Chloride 103 (98-107) mmol/L Carbon Dioxide 30 (22-30) mmol/L Anion Gap 13 (10-20) BUN 24 H (7-17) mg/dl Creatinine 0.6 L (0.7-1.2) mg/dl Est GFR ( Amer) > 60 Est GFR (Non-Af Amer) > 60 POC Glucose (mg/dL) 249 H (65-110) mg/dL Random Glucose 267 H (65-105) mg/dL Calcium 8.8 (8.4-10.2) mg/dL Total Bilirubin 0.4 (0.2-1.3) mg/dl AST 14 D (14-36) U/L ALT 27 (9-52) U/L Alkaline Phosphatase 71 (38-126) U/L Total Protein 6.5 (6.3-8.2) G/DL Albumin 3.0 L (3.5-5.0) g/dL Globulin 3.5 (2.2-3.9) gm/dL Albumin/Globulin Ratio 0.9 L (1.0-2.1) 05/01/17 05/01/17 05/01/17 Range/Units 22:40 15:53 11:06 WBC (4.8-10.8) K/uL RBC (3.80-5.20) Mil/uL Hgb (12.0-16.0) g/dL Hct (34.0-47.0) % MCV (81.0-99.0) fl MCH (27.0-31.0) pg MCHC (33.0-37.0) g/dL RDW (11.5-14.5) % Plt Count (130-400) K/uL Sodium (132-148) mmol/l Potassium (3.6-5.0) MMOL/L Chloride (98-107) mmol/L Carbon Dioxide (22-30) mmol/L Anion Gap (10-20) BUN (7-17) mg/dl Creatinine (0.7-1.2) mg/dl Est GFR ( Amer) Est GFR (Non-Af Amer) POC Glucose (mg/dL) 208 H 167 H 209 H (65-110) mg/dL Random Glucose (65-105) mg/dL Calcium (8.4-10.2) mg/dL Total Bilirubin (0.2-1.3) mg/dl AST (14-36) U/L ALT (9-52) U/L Alkaline Phosphatase (38-126) U/L Total Protein (6.3-8.2) G/DL Albumin (3.5-5.0) g/dL Globulin (2.2-3.9) gm/dL Albumin/Globulin Ratio (1.0-2.1) Laboratory Results - last 24 hr 05/01/17 05/01/17 05/01/17 11:06 15:53 22:40 WBC RBC Hgb Hct MCV MCH MCHC RDW Plt Count Sodium Potassium Chloride Carbon Dioxide Anion Gap BUN Creatinine Est GFR ( Amer) Est GFR (Non-Af Amer) POC Glucose (mg/dL) 209 H 167 H 208 H Random Glucose Calcium Total Bilirubin AST ALT Alkaline Phosphatase Total Protein Albumin Globulin Albumin/Globulin Ratio 05/02/17 05/02/17 05/02/17 04:30 04:30 06:17 WBC 13.3 H RBC 4.12 Hgb 11.3 L Hct 36.2 MCV 88.0 MCH 27.5 MCHC 31.2 L RDW 14.6 H Plt Count 318 Sodium 142 Potassium 4.1 Chloride 103 Carbon Dioxide 30 Anion Gap 13 BUN 24 H Creatinine 0.6 L Est GFR ( Amer) > 60 Est GFR (Non-Af Amer) > 60 POC Glucose (mg/dL) 249 H Random Glucose 267 H Calcium 8.8 Total Bilirubin 0.4 AST 14 D ALT 27 Alkaline Phosphatase 71 Total Protein 6.5 Albumin 3.0 L Globulin 3.5 Albumin/Globulin Ratio 0.9 L Fingerstick Blood Sugar Results: 249 Assessment/Plan (1) Acute ischemic stroke Current Visit: Yes Status: Acute Comment: Improved Continue ASA, statin PT/OT Swallow Re-evaluation (2) Aspiration pneumonia Current Visit: Yes Status: Acute Comment: Completed course of IV meropenem and Vanco (3) Dyslipidemia Current Visit: Yes Status: Acute (4) Hypertension Current Visit: Yes Status: Acute (5) Type 2 diabetes mellitus with pressure callus Current Visit: Yes Status: Acute
[2017-05-02] MEDS: Acetylcysteine 20% Inhal Soln (4ml) PO SCH ×3 (07:51→16:01)
[2017-05-02] MEDS: Acetylcysteine 20% Inhal Soln (4ml) INH SCH (08:02)
[2017-05-02] MEDS: Bacitracin OINT 15GM TOP SCH ×2 (08:52→17:16)
[2017-05-02] MEDS: Valproic Acid 250 mg/5 ml UD Cup PO SCH (08:53)
[2017-05-02] MEDS: Proshield Plus GEL TOP PRN (08:54)
[2017-05-02] MEDS: guaiFENesin-DM 600-30 mg ER Tab PO SCH ×2 (08:54→17:21)
[2017-05-02] MEDS: GlipiZIDE 10 mg SR Tab PO SCH ×2 (08:57→17:18)
--- NOTE | 2017-05-02 09:47 | CP.PCM.PN ---
Subjective - Date & Time of Evaluation Date of Evaluation: 05/02/17 Time of Evaluation: 09:42 - Subjective Subjective: Ms. Black was seen and examined at the bedside in ICU. She is awake, able to answer questions with few shaking or nodding her head. The staff released her bilateral wrist restraints to assist her with movement, but episode of confusion but can easily redirect. She moves her extremities spontaneously with the left side weaker than the right. She is able to follow one command such as opening her mouth. She remains with NGT for feeding and medication administration. She is schedule for re-evaluation of swallowing with the goal of upgrading the patient to PO intake. There was no untoward events overnight. Objective - Vital Signs/Intake and Output Vital Signs (last 24 hours): Temp Pulse Resp BP Pulse Ox 98.0 F 76 22 131/62 97 05/02/17 08:00 05/02/17 08:00 05/02/17 08:00 05/02/17 08:00 05/02/17 08:00 Intake and Output: 05/02/17 05/02/17 06:59 18:59 Intake Total 1100 Output Total 100 Balance 1000 - Medications Medications: Current Medications Acetaminophen (Tylenol 325mg Tab) 650 mg PO Q6 PRN PRN Reason: fever > 100.4 Last Admin: 04/29/17 04:06 Dose: 650 mg Acetaminophen (Tylenol 650 Mg Supp) 650 mg HI Q4 PRN PRN Reason: Fever >100.4 F Last Admin: 04/29/17 15:58 Dose: 650 mg Acetylcysteine (Acetylcysteine 20%) 3 ml PO BID [facility] Stop: 05/03/17 09:01 Last Admin: 05/02/17 09:21 Dose: 3 ml Acetylcysteine (Acetylcysteine 20%) 2 ml INH RBID [facility] Apixaban (Eliquis) 2.5 mg PO BID [facility] PRN Reason: Protocol Last Admin: 05/02/17 08:53 Dose: 2.5 mg Aspirin (Aspirin Chewable) 81 mg PO DAILY [facility] Last Admin: 05/02/17 08:52 Dose: 81 mg Atorvastatin Calcium (Lipitor) 40 mg PO HS [facility] Last Admin: 05/01/17 22:37 Dose: 40 mg Bacitracin (Bacitracin Oint) 1 applic TOP BID [facility] Last Admin: 05/02/17 08:52 Dose: 1 applic Dimethicone (Proshield Plus Skin Protectant) 1 applic TOP Q8 PRN PRN Reason: Dry skin Last Admin: 05/02/17 08:54 Dose: 1 applic Donepezil HCl (Aricept) 5 mg PO HS [facility] Last Admin: 05/01/17 22:37 Dose: 5 mg Enalapril Maleate (Vasotec) 2.5 mg PO BID [facility] Last Admin: 05/02/17 08:56 Dose: 2.5 mg Glipizide (Glucotrol Xl) 10 mg PO BRKDIN [facility] Last Admin: 05/02/17 08:57 Dose: 10 mg Guaifenesin/Dextromethorphan (Mucinex-Dm 600-30 Mg) 1 tab PO BID [facility] Last Admin: 05/02/17 08:54 Dose: 1 tab Insulin Detemir (Levemir) 30 units SC HS [facility] Last Admin: 05/01/17 22:42 Dose: 30 units Insulin Human Regular (Humulin R) 0 units SC ACHS [facility] PRN Reason: Protocol Last Admin: 05/02/17 06:50 Dose: 2 units Ipratropium [place] (Atrovent) 0.5 mg IH RQ8 [facility] Last Admin: 05/02/17 07:50 Dose: 0.5 mg Labetalol HCl (Trandate) 100 mg PO BID [facility] Last Admin: 05/02/17 08:56 Dose: 100 mg Levalbuterol HCl (Xopenex) 0.63 mg INH RQ8 [facility] Last Admin: 05/02/17 09:23 Dose: Not Given Pantoprazole Sodium (Protonix Inj) 40 mg IVP DAILY [facility] Last Admin: 05/02/17 08:55 Dose: 40 mg Repaglinide (Prandin) 1 mg PO TID [facility] Last Admin: 05/02/17 08:54 Dose: 1 mg Sitagliptin Phosphate (Januvia) 50 mg PO BID [facility] Last Admin: 05/02/17 08:54 Dose: 50 mg Valproate Sodium (Depakene Oral Soln) 250 mg PO DAILY [facility] Last Admin: 05/02/17 08:53 Dose: 250 mg - Labs Labs: 05/02/17 04:30 05/02/17 04:30 PT 9.7 Seconds (9.8-13.1) L 04/12/17 21:15 INR 0.9 (0.9-1.2) 04/12/17 21:15 APTT 26.0 Seconds (25.6-37.1) 04/12/17 21:15 - Constitutional Appears: No Acute Distress - Head Exam Head Exam: NORMAL INSPECTION - Neurological Exam Neurological Exam: Awake Neuro motor strength exam: Left Upper Extremity: 3, Right Upper Extremity: 5, Left Lower Extremity: 3, Right Lower Extremity: 5 Additional comments: She is able to move all extremities spontaneously with left weaker than the right. Sensation remains intact. Assessment and Plan (1) CVA (cerebral vascular accident) Assessment & Plan: Case discussed with Dr. Lyons, continue all current medical, physical, occupational, and speech therapies. Pending repeat CT of the head result. If it is negative for any hemorrhage, to increase eliquis from 2.5 mg NGT BID to 5 mg NGT BID. Pending barium swallow and swallowing evaluation. Status: Acute
--- NOTE | 2017-05-02 10:00 | CT ---
PROCEDURE: CT HEAD WITHOUT CONTRAST. HISTORY: follow up ischemic stroke COMPARISON: 04/24/2017. TECHNIQUE: Axial computed tomography images were obtained through the head/brain without intravenous contrast. Radiation dose: Total exam DLP = 974.33 mGy-cm. This CT exam was performed using one or more of the following dose reduction techniques: Automated exposure control, adjustment of the mA and/or kV according to patient size, and/or use of iterative reconstruction technique. FINDINGS: HEMORRHAGE: No intracranial hemorrhage. BRAIN: There is redemonstration of a large subacute infarction in the right frontal subcortical white matter, mlceod radiata and basal ganglia. No evidence of hemorrhagic transformation. There are severe coarse atherosclerotic calcifications in the cavernous carotid and vertebral arteries. No mass, mass effect or abnormal extra-axial fluid collection. There are mild chronic microangiopathic changes. There are old lacunar infarctions in the left anterior limb of internal capsule, basal ganglia and thalamus. There is also an old lacunar infarction in the right basal ganglia. VENTRICLES: Unremarkable. No hydrocephalus. CALVARIUM: Unremarkable. PARANASAL SINUSES: Unremarkable as visualized. No significant inflammatory changes. MASTOID AIR CELLS: Unremarkable as visualized. No inflammatory changes. OTHER FINDINGS: None. IMPRESSION: Evolving subacute right MCA territory infarction involving the right frontal subcortical white matter, mcleod radiata and basal ganglia. No evidence of hemorrhagic transformation. Old lacunar infarctions in the right basal ganglia and left anterior limb of internal capsule, thalamus and basal ganglia.
--- NOTE | 2017-05-02 10:32 | CP.PCM.PN ---
Subjective - Date & Time of Evaluation Date of Evaluation: 05/02/17 Time of Evaluation: 12:00 - Subjective Subjective: ID note- Pt. seen and examined in ICU. pt. drowsy but opens her eyes when her name is called. has NGT for feeds. continues to have diarrhea , all 3 stool c.diff- neg Objective - Vital Signs/Intake and Output Vital Signs (last 24 hours): Temp Pulse Resp BP Pulse Ox 98.0 F 76 22 131/62 97 05/02/17 08:00 05/02/17 08:00 05/02/17 08:00 05/02/17 08:00 05/02/17 08:00 Intake and Output: 05/02/17 05/02/17 06:59 18:59 Intake Total 1100 Output Total 100 Balance 1000 - Medications Medications: Current Medications Acetaminophen (Tylenol 325mg Tab) 650 mg PO Q6 PRN PRN Reason: fever > 100.4 Last Admin: 04/29/17 04:06 Dose: 650 mg Acetaminophen (Tylenol 650 Mg Supp) 650 mg [place] Q4 PRN PRN Reason: Fever >100.4 F Last Admin: 04/29/17 15:58 Dose: 650 mg Acetylcysteine (Acetylcysteine 20%) 3 ml PO BID [facility] Stop: 05/03/17 09:01 Last Admin: 05/02/17 09:21 Dose: 3 ml Acetylcysteine (Acetylcysteine 20%) 2 ml INH RBID BRIAN Apixaban (Eliquis) 2.5 mg PO BID [facility] PRN Reason: Protocol Last Admin: 05/02/17 08:53 Dose: 2.5 mg Aspirin (Aspirin Chewable) 81 mg PO DAILY [facility] Last Admin: 05/02/17 08:52 Dose: 81 mg Atorvastatin Calcium (Lipitor) 40 mg PO HS [facility] Last Admin: 05/01/17 22:37 Dose: 40 mg Bacitracin (Bacitracin Oint) 1 applic TOP BID [facility] Last Admin: 05/02/17 08:52 Dose: 1 applic Dimethicone (Proshield Plus Skin Protectant) 1 applic TOP Q8 PRN PRN Reason: Dry skin Last Admin: 05/02/17 08:54 Dose: 1 applic Donepezil HCl (Aricept) 5 mg PO [facility] Last Admin: 05/01/17 22:37 Dose: 5 mg Enalapril Maleate (Vasotec) 2.5 mg PO BID [facility] Last Admin: 05/02/17 08:56 Dose: 2.5 mg Glipizide (Glucotrol Xl) 10 mg PO BRKDIN [facility] Last Admin: 05/02/17 08:57 Dose: 10 mg Guaifenesin/Dextromethorphan (Mucinex-Dm 600-30 Mg) 1 tab PO BID [facility] Last Admin: 05/02/17 08:54 Dose: 1 tab Insulin Detemir (Levemir) 30 units SC HS [facility] Last Admin: 05/01/17 22:42 Dose: 30 units Insulin Human Regular (Humulin R) 0 units SC [facility] PRN Reason: Protocol Last Admin: 05/02/17 06:50 Dose: 2 units Ipratropium Adrian (Atrovent) 0.5 mg IH RQ8 [facility] Last Admin: 05/02/17 07:50 Dose: 0.5 mg Labetalol HCl (Trandate) 100 mg PO BID [facility] Last Admin: 05/02/17 08:56 Dose: 100 mg Levalbuterol HCl (Xopenex) 0.63 mg INH RQ8 [facility] Last Admin: 05/02/17 09:23 Dose: Not Given Pantoprazole Sodium (Protonix Inj) 40 mg IVP DAILY [facility] Last Admin: 05/02/17 08:55 Dose: 40 mg Repaglinide (Prandin) 1 mg PO TID [facility] Last Admin: 05/02/17 08:54 Dose: 1 mg Sitagliptin Phosphate (Januvia) 50 mg PO BID [facility] Last Admin: 05/02/17 08:54 Dose: 50 mg Valproate Sodium (Depakene Oral Soln) 250 mg PO DAILY [facility] Last Admin: 05/02/17 08:53 Dose: 250 mg - Labs Labs: - Additional Findings Additional findings: - Head Exam Head Exam: ATRAUMATIC - Neck Exam Neck exam: Positive for: Full Rom Additional comments: supple - Respiratory Exam Additional comments: breath sounds heard b/l no wheezing - Cardiovascular Exam Cardiovascular Exam: RRR, +S1, +S2 - GI/Abdominal Exam GI & Abdominal Exam: Normal Bowel Sounds, Soft Additional comments: ND, NT - Extremities Exam Additional comments: no edema b/l LE, no ulcerations - Neurological Exam Additional comments: opens her eyes when name is called but is drowsy Laboratory Results - last 72 hr 04/29/17 04/29/17 04/29/17 14:41 16:51 21:04 WBC RBC Hgb Hct MCV MCH MCHC RDW Plt Count MPV Neut % (Auto) Lymph % (Auto) [place] % (Auto) Eos % (Auto) Baso % (Auto) Neut # (Auto) Lymph # (Auto) [place] # (Auto) Eos # (Auto) Baso # (Auto) pCO2 37 pO2 76 L HCO3 27.4 ABG pH 7.47 H ABG Total CO2 28.0 ABG O2 Saturation 97.4 ABG Base Excess 3.2 H Boaz Test Yes ABG Potassium 4.0 A-a O2 Difference 99.0 Sodium 144.0 Chloride 113.0 H Glucose 255 H Lactate 0.9 FiO2 31.0 Blood Gas Comments 3l/m nc rb Crit Value Read Back N Potassium Carbon Dioxide Anion Gap BUN Creatinine Est GFR ( Amer) Est GFR (Non-Af Amer) POC Glucose (mg/dL) 285 H 259 H Random Glucose Calcium Total Bilirubin AST ALT Alkaline Phosphatase Total Protein Albumin Globulin Albumin/Globulin Ratio Arterial Blood Potassium 4.0 Urine Color Urine Clarity Urine pH Ur Specific [place] Urine Protein Urine Glucose (UA) Urine Ketones Urine Blood Urine Nitrate Urine Bilirubin Urine Urobilinogen Ur Leukocyte Esterase Urine RBC (Auto) Urine Microscopic WBC Ur Squamous Epith Cells Urine Bacteria Urine Yeast (Budding) 04/30/17 04/30/17 04/30/17 00:27 04:38 04:45 WBC 10.1 RBC 4.05 Hgb 11.6 L Hct 35.7 MCV 88.2 MCH 28.6 MCHC 32.4 L RDW 14.6 H Plt Count 285 MPV 10.2 Neut % (Auto) 72.5 Lymph % (Auto) 16.9 L [place] % (Auto) 9.0 Eos % (Auto) 1.2 Baso % (Auto) 0.4 Neut # (Auto) 7.3 H Lymph # (Auto) 1.7 [place] # (Auto) 0.9 H Eos # (Auto) 0.1 Baso # (Auto) 0.0 pCO2 pO2 HCO3 ABG pH ABG Total CO2 ABG O2 Saturation ABG Base Excess Boaz Test ABG Potassium A-a O2 Difference Sodium Chloride Glucose Lactate FiO2 Blood Gas Comments Crit Value Read Back Potassium Carbon Dioxide Anion Gap BUN Creatinine Est GFR ( Amer) Est GFR (Non-Af Amer) POC Glucose (mg/dL) 168 H Random Glucose Calcium Total Bilirubin AST ALT Alkaline Phosphatase Total Protein Albumin Globulin Albumin/Globulin Ratio Arterial Blood Potassium Urine Color Yellow Urine Clarity Turbid Urine pH 5.0 Ur Specific [place] 1.030 Urine Protein 100 Urine Glucose (UA) >=500 Urine Ketones Trace Urine Blood Large Urine Nitrate Negative Urine Bilirubin Negative Urine Urobilinogen 0.2-1.0 Ur Leukocyte Esterase Large Urine RBC (Auto) 802 H Urine Microscopic WBC 559 H Ur Squamous Epith Cells 8 H Urine Bacteria Few H Urine Yeast (Budding) Many H 04/30/17 04/30/17 04/30/17 04:45 11:15 16:19 WBC RBC Hgb Hct MCV MCH MCHC RDW Plt Count MPV Neut % (Auto) Lymph % (Auto) [place] % (Auto) Eos % (Auto) Baso % (Auto) Neut # (Auto) Lymph # (Auto) [place] # (Auto) Eos # (Auto) Baso # (Auto) pCO2 pO2 HCO3 ABG pH ABG Total CO2 ABG O2 Saturation ABG Base Excess Boaz Test ABG Potassium A-a O2 Difference Sodium 145 Chloride 108 H Glucose Lactate FiO2 Blood Gas Comments Crit Value Read Back Potassium 3.7 Carbon Dioxide 28 Anion Gap 13 BUN 23 H Creatinine 0.5 L Est GFR ( Amer) > 60 Est GFR (Non-Af Amer) > 60 POC Glucose (mg/dL) 207 H 201 H Random Glucose 193 H Calcium 8.8 Total Bilirubin AST ALT Alkaline Phosphatase Total Protein Albumin Globulin Albumin/Globulin Ratio Arterial Blood Potassium Urine Color Urine Clarity Urine pH Ur Specific [place] Urine Protein Urine Glucose (UA) Urine Ketones Urine Blood Urine Nitrate Urine Bilirubin Urine Urobilinogen Ur Leukocyte Esterase Urine RBC (Auto) Urine Microscopic WBC Ur Squamous Epith Cells Urine Bacteria Urine Yeast (Budding) 04/30/17 05/01/17 05/01/17 21:15 04:00 05:28 WBC 9.0 RBC 4.12 Hgb 11.7 L Hct 36.5 MCV 88.4 MCH 28.2 MCHC 32.0 L RDW 14.4 Plt Count 312 MPV Neut % (Auto) Lymph % (Auto) [place] % (Auto) Eos % (Auto) Baso % (Auto) Neut # (Auto) Lymph # (Auto) [place] # (Auto) Eos # (Auto) Baso # (Auto) pCO2 pO2 HCO3 ABG pH ABG Total CO2 ABG O2 Saturation ABG Base Excess Boaz Test ABG Potassium A-a O2 Difference Sodium 144 Chloride 104 Glucose Lactate FiO2 Blood Gas Comments Crit Value Read Back Potassium 3.9 Carbon Dioxide 30 Anion Gap 14 BUN 23 H Creatinine 0.5 L Est GFR ( Amer) > 60 Est GFR (Non-Af Amer) > 60 POC Glucose (mg/dL) 259 H Random Glucose 250 H Calcium 8.7 Total Bilirubin AST ALT Alkaline Phosphatase Total Protein Albumin Globulin Albumin/Globulin Ratio Arterial Blood Potassium Urine Color Urine Clarity Urine pH Ur Specific [place] Urine Protein Urine Glucose (UA) Urine Ketones Urine Blood Urine Nitrate Urine Bilirubin Urine Urobilinogen Ur Leukocyte Esterase Urine RBC (Auto) Urine Microscopic WBC Ur Squamous Epith Cells Urine Bacteria Urine Yeast (Budding) 05/01/17 05/01/17 05/01/17 05:37 11:06 15:53 WBC RBC Hgb Hct MCV MCH MCHC RDW Plt Count MPV Neut % (Auto) Lymph % (Auto) [place] % (Auto) Eos % (Auto) Baso % (Auto) Neut # (Auto) Lymph # (Auto) [place] # (Auto) Eos # (Auto) Baso # (Auto) pCO2 pO2 HCO3 ABG pH ABG Total CO2 ABG O2 Saturation ABG Base Excess Boaz Test ABG Potassium A-a O2 Difference Sodium Chloride Glucose Lactate FiO2 Blood Gas Comments Crit Value Read Back Potassium Carbon Dioxide Anion Gap BUN Creatinine Est GFR ( Amer) Est GFR (Non-Af Amer) POC Glucose (mg/dL) 232 H 209 H 167 H Random Glucose Calcium Total Bilirubin AST ALT Alkaline Phosphatase Total Protein Albumin Globulin Albumin/Globulin Ratio Arterial Blood Potassium Urine Color Urine Clarity Urine pH Ur Specific [place] Urine Protein Urine Glucose (UA) Urine Ketones Urine Blood Urine Nitrate Urine Bilirubin Urine Urobilinogen Ur Leukocyte Esterase Urine RBC (Auto) Urine Microscopic WBC Ur Squamous Epith Cells Urine Bacteria Urine Yeast (Budding) 05/01/17 05/02/17 05/02/17 22:40 04:30 04:30 WBC 13.3 H RBC 4.12 Hgb 11.3 L Hct 36.2 MCV 88.0 MCH 27.5 MCHC 31.2 L RDW 14.6 H Plt Count 318 MPV Neut % (Auto) Lymph % (Auto) [place] % (Auto) Eos % (Auto) Baso % (Auto) Neut # (Auto) Lymph # (Auto) [place] # (Auto) Eos # (Auto) Baso # (Auto) pCO2 pO2 HCO3 ABG pH ABG Total CO2 ABG O2 Saturation ABG Base Excess Boaz Test ABG Potassium A-a O2 Difference Sodium 142 Chloride 103 Glucose Lactate FiO2 Blood Gas Comments Crit Value Read Back Potassium 4.1 Carbon Dioxide 30 Anion Gap 13 BUN 24 H Creatinine 0.6 L Est GFR ( Amer) > 60 Est GFR (Non-Af Amer) > 60 POC Glucose (mg/dL) 208 H Random Glucose 267 H Calcium 8.8 Total Bilirubin 0.4 AST 14 D ALT 27 Alkaline Phosphatase 71 Total Protein 6.5 Albumin 3.0 L Globulin 3.5 Albumin/Globulin Ratio 0.9 L Arterial Blood Potassium Urine Color Urine Clarity Urine pH Ur Specific [place] Urine Protein Urine Glucose (UA) Urine Ketones Urine Blood Urine Nitrate Urine Bilirubin Urine Urobilinogen Ur Leukocyte Esterase Urine RBC (Auto) Urine Microscopic WBC Ur Squamous Epith Cells Urine Bacteria Urine Yeast (Budding) 05/02/17 05/02/17 06:17 11:19 WBC RBC Hgb Hct MCV MCH MCHC RDW Plt Count MPV Neut % (Auto) Lymph % (Auto) [place] % (Auto) Eos % (Auto) Baso % (Auto) Neut # (Auto) Lymph # (Auto) [place] # (Auto) Eos # (Auto) Baso # (Auto) pCO2 pO2 HCO3 ABG pH ABG Total CO2 ABG O2 Saturation ABG Base Excess Boaz Test ABG Potassium A-a O2 Difference Sodium Chloride Glucose Lactate FiO2 Blood Gas Comments Crit Value Read Back Potassium Carbon Dioxide Anion Gap BUN Creatinine Est GFR ( Amer) Est GFR (Non-Af Amer) POC Glucose (mg/dL) 249 H 199 H Random Glucose Calcium Total Bilirubin AST ALT Alkaline Phosphatase Total Protein Albumin Globulin Albumin/Globulin Ratio Arterial Blood Potassium Urine Color Urine Clarity Urine pH Ur Specific [place] Urine Protein Urine Glucose (UA) Urine Ketones Urine Blood Urine Nitrate Urine Bilirubin Urine Urobilinogen Ur Leukocyte Esterase Urine RBC (Auto) Urine Microscopic WBC Ur Squamous Epith Cells Urine Bacteria Urine Yeast (Budding) Microbiology 05/01/17 10:10 Urine,Leslie Urine Culture - Preliminary Gram Negative Hardy 04/29/17 19:20 Blood-Venous Blood Culture - Preliminary NO GROWTH AFTER 48 HOURS 04/29/17 19:20 Blood-Venous Blood Culture - Preliminary NO GROWTH AFTER 48 HOURS 04/28/17 13:57 Blood Blood Culture - Preliminary NO GROWTH AFTER 3 DAYS 04/28/17 21:10 Sputum Gram Stain - Final 04/28/17 21:10 Sputum Sputum Culture - Final Yeast Species 04/28/17 21:10 Urine,Leslie Urine Culture - Final Yeast Species 04/22/17 19:03 Blood-Venous Blood Culture - Final NO GROWTH AFTER 5 DAYS 04/22/17 19:03 Blood-Venous Gram Stain - Final TEST NOT PERFORMED 04/22/17 19:03 Blood-Venous Blood Culture - Final NO GROWTH AFTER 5 DAYS 04/22/17 19:03 Blood-Venous Gram Stain - Final TEST NOT PERFORMED 04/21/17 21:05 Blood-Venous Blood Culture - Final NO GROWTH AFTER 5 DAYS 04/21/17 21:05 Blood-Venous Gram Stain - Final TEST NOT PERFORMED 04/21/17 20:55 Blood-Venous Blood Culture - Final NO GROWTH AFTER 5 DAYS 04/21/17 20:55 Blood-Venous Gram Stain - Final TEST NOT PERFORMED 04/21/17 05:46 Trachasp Gram Stain - Final 04/21/17 05:46 Trachasp Sputum Culture - Final NORMAL ORAL LEIDA 04/21/17 05:45 Urine,Leslie Urine Culture - Final Yeast Species 04/20/17 07:34 Naris MRSA Culture (Admit) - Final MRSA NOT DETECTED 04/20/17 07:55 Urine,Clean Catch Urine Culture - Final Escherichia Coli 04/15/17 06:14 Blood-Venous Blood Culture - Final NO GROWTH AFTER 5 DAYS 04/15/17 06:14 Blood-Venous Gram Stain - Final TEST NOT PERFORMED 04/15/17 06:14 Blood-Venous Blood Culture - Final NO GROWTH AFTER 5 DAYS 04/15/17 06:14 Blood-Venous Gram Stain - Final TEST NOT PERFORMED 04/16/17 08:25 Naris MRSA Culture (Admit) - Final MRSA NOT DETECTED 04/12/17 21:15 Urine,Clean Catch Urine Culture - Final > 100,000 CFU/ML. MULTIPLE SPECIES. SUGGEST REPEAT SPECIMEM. Accession No. : [id number] Patient Name / ID : SAFIA LIMON / [id number] Exam Date : 05/02/2017 08:13:12 ( Approved ) Study Comment : Sex / Age : F / 72Y Creator : Deonna Shoemaker MD Dictator : Deonna Shoemaker MD Tapper Bit : Lightning Protection Installer : Deonna Shoemaker MD Approver2 : Report Date : 05/02/2017 09:53:10 My Comment : PROCEDURE: CT HEAD WITHOUT CONTRAST. HISTORY: follow up ischemic stroke COMPARISON: 04/24/2017. TECHNIQUE: Axial computed tomography images were obtained through the head/brain without intravenous contrast. Radiation dose: Total exam DLP = 974.33 mGy-cm. This CT exam was performed using one or more of the following dose reduction techniques: Automated exposure control, adjustment of the mA and/or kV according to patient size, and/or use of iterative reconstruction technique. FINDINGS: HEMORRHAGE: No intracranial hemorrhage. BRAIN: There is redemonstration of a large subacute infarction in the right frontal subcortical white matter, cmleod radiata and basal ganglia. No evidence of hemorrhagic transformation. There are severe coarse atherosclerotic calcifications in the cavernous carotid and vertebral arteries. No mass, mass effect or abnormal extra-axial fluid collection. There are mild chronic microangiopathic changes. There are old lacunar infarctions in the left anterior limb of internal capsule, basal ganglia and thalamus. There is also an old lacunar infarction in the right basal ganglia. VENTRICLES: Unremarkable. No hydrocephalus. CALVARIUM: Unremarkable. PARANASAL SINUSES: Unremarkable as visualized. No significant inflammatory changes. MASTOID AIR CELLS: Unremarkable as visualized. No inflammatory changes. OTHER FINDINGS: None. IMPRESSION: Evolving subacute right MCA territory infarction involving the right frontal subcortical white matter, mcleod radiata and basal ganglia. No evidence of hemorrhagic transformation. Old lacunar infarctions in the right basal ganglia and left anterior limb of internal capsule, thalamus and basal ganglia. 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 has been afebrile past 48 hours. slight rise in wbc today. blood cx- neg x 4 repeat UA from 04/30/2017- positive with larger LE, bacteria and yeast and prelim urine cx - GNR form 04/30/2017 urine cx -e.coli pansensitive 04/20/2017 was treated for this with IV meropnem 7 days. influenza- negative new diarrhea stool c.diff- neg x [address] report noted. Plan- await ID and sens of the GNR in the urine cx. leslie has been removed. for now in light of the + ua and slight rise in wbc advise to start pt. on ertapenem 1 gram IV daily pending ID and sensitivity. await swallow eval today. monitor asp precautions. monitor wbc . all above d/w ICU team. ICU time spent 45 min.
--- NOTE | 2017-05-02 11:53 | CP.PCM.PN ---
Subjective - Date & Time of Evaluation Date of Evaluation: 05/02/17 Time of Evaluation: 11:30 - Subjective Subjective: Patient seen and examined bedside.Today is more somnolent than yesterday , moving all 4 extremities with some LUE weakness left facial droop. No verbal communication today , but follows simple commands Hemodynamically stable, afebrile No acute issues overnight WBC trending up 13 K CXR showed no infiltrate urine cx growing gram negative cesario With NGt feeding with glucerna Waiting for Video swall and speech eval r Objective - Vital Signs/Intake and Output Vital Signs (last 24 hours): Temp Pulse Resp BP Pulse Ox 98.0 F 76 22 131/62 97 05/02/17 08:00 05/02/17 08:00 05/02/17 08:00 05/02/17 08:00 05/02/17 08:00 Intake and Output: 05/02/17 05/02/17 06:59 18:59 Intake Total 1100 470 Output Total 100 100 Balance 1000 370 - Medications Medications: Current Medications Acetaminophen (Tylenol 325mg Tab) 650 mg PO Q6 PRN PRN Reason: fever > 100.4 Last Admin: 04/29/17 04:06 Dose: 650 mg Acetaminophen (Tylenol 650 Mg Supp) 650 mg [place] Q4 PRN PRN Reason: Fever >100.4 F Last Admin: 04/29/17 15:58 Dose: 650 mg Acetylcysteine (Acetylcysteine 20%) 3 ml PO BID [facility] Stop: 05/03/17 09:01 Last Admin: 05/02/17 09:21 Dose: 3 ml Acetylcysteine (Acetylcysteine 20%) 2 ml INH RBID [facility] Apixaban (Eliquis) 5 mg PO BID [facility] PRN Reason: Protocol Aspirin (Aspirin Chewable) 81 mg PO DAILY [facility] Last Admin: 05/02/17 08:52 Dose: 81 mg Atorvastatin Calcium (Lipitor) 40 mg PO HS [facility] Last Admin: 05/01/17 22:37 Dose: 40 mg Bacitracin (Bacitracin Oint) 1 applic TOP BID [facility] Last Admin: 05/02/17 08:52 Dose: 1 applic Dimethicone (Proshield Plus Skin Protectant) 1 applic TOP Q8 PRN PRN Reason: Dry skin Last Admin: 05/02/17 08:54 Dose: 1 applic Donepezil HCl (Aricept) 5 mg PO HS [facility] Last Admin: 05/01/17 22:37 Dose: 5 mg Enalapril Maleate (Vasotec) 2.5 mg PO BID [facility] Last Admin: 05/02/17 08:56 Dose: 2.5 mg Glipizide (Glucotrol Xl) 10 mg PO BRKDIN [facility] Last Admin: 05/02/17 08:57 Dose: 10 mg Guaifenesin/Dextromethorphan (Mucinex-Dm 600-30 Mg) 1 tab PO BID [facility] Last Admin: 05/02/17 08:54 Dose: 1 tab Insulin Detemir (Levemir) 30 units SC HS [facility] Last Admin: 05/01/17 22:42 Dose: 30 units Insulin Human Regular (Humulin R) 0 units SC [facility] PRN Reason: Protocol Last Admin: 05/02/17 06:50 Dose: 2 units Ipratropium [place] (Atrovent) 0.5 mg IH RQ8 [facility] Last Admin: 05/02/17 07:50 Dose: 0.5 mg Labetalol HCl (Trandate) 100 mg PO BID [facility] Last Admin: 05/02/17 08:56 Dose: 100 mg Levalbuterol HCl (Xopenex) 0.63 mg INH RQ8 [facility] Last Admin: 05/02/17 09:23 Dose: Not Given Pantoprazole Sodium (Protonix Inj) 40 mg IVP DAILY [facility] Last Admin: 05/02/17 08:55 Dose: 40 mg Repaglinide (Prandin) 1 mg PO TID [facility] Last Admin: 05/02/17 08:54 Dose: 1 mg Sitagliptin Phosphate (Januvia) 50 mg PO BID [facility] Last Admin: 05/02/17 08:54 Dose: 50 mg Valproate Sodium (Depakene Oral Soln) 250 mg PO DAILY [facility] Last Admin: 05/02/17 08:53 Dose: 250 mg - Labs Labs: 05/02/17 04:30 05/02/17 04:30 PT 9.7 Seconds (9.8-13.1) L 04/12/17 21:15 INR 0.9 (0.9-1.2) 04/12/17 21:15 APTT 26.0 Seconds (25.6-37.1) 04/12/17 21:15 - Constitutional Appears: Non-toxic, No Acute Distress, Other (somnolent ) - Head Exam Head Exam: ATRAUMATIC, NORMAL INSPECTION, NORMOCEPHALIC Additional comments: left facial droop - Eye Exam Eye Exam: EOMI, Normal appearance, PERRL Pupil Exam: NORMAL ACCOMODATION - ENT Exam ENT Exam: Mucous Membranes Dry - Neck Exam Neck Exam: Normal Inspection - Respiratory Exam Respiratory Exam: absent: Respiratory Distress Additional comments: coarse breath sounds bilaterally - Cardiovascular Exam Cardiovascular Exam: REGULAR RHYTHM, RRR, +S1, +S2. absent: JVD - GI/Abdominal Exam GI & Abdominal Exam: Soft, Normal Bowel Sounds. absent: Distended, Guarding, Tenderness, Rebound - Rectal Exam Rectal Exam: Deferred - Extremities Exam Extremities Exam: Normal Inspection. absent: Calf Tenderness, Pedal Edema - Neurological Exam Neurological Exam: Alert, Awake Neuro motor strength exam: Left Upper Extremity: 4, Right Upper Extremity: 5, Left Lower Extremity: 5, Right Lower Extremity: 5 Additional comments: left facial droop follows commands somnolent aphasic ? - Psychiatric Exam Psychiatric exam: Flat Affect - Skin Skin Exam: Dry, Warm Assessment and Plan - Assessment and Plan (Free Text) Assessment: 72 y/o F PMH DM, HTN, HLD brought to the ED with acutely worsening alteration of mental status and not as verbal . She presented with left facial droop and and some expressive aphasia.CT head was neg for acute CVA or bleed. Patient glucose was elevated 563. She was admitted initially in telemetry for further stroke work up and diabetes control . Neuro consulted.She was started on ASA, Statin, plavix,lovenox , Insulin and IVF .Her BP initially was kept elevated to allow permissive hypertension. MRI head showed acute stroke in right frontal lobe white matter 2/2 While in telemetry , the patient developed worsening BAILON and some left arm weakness.Patient became confused , agitated , restless ,not following any commands. She also started to have fever. Repeat MRI of the Brain : showed acute/ subacute stroke in right mcleod radiata and centrum ovale She was then transferred to ICU for close monitoring She continued to spike fevers for > 48 hours with no obvious source of infection and normal WBC count. All work up sent including CXR, UA,urine cx, blood cx were negative for infection so fever thought to be of central origin and no antibiotics were started 2/7 While in Tele , [employer] called for stridor and respiratory distress . She developed acute hypercapnic respiratory failure was intubated and transferred to ICU. CXR showed new infiltrate, poss Asp PNA.She was started on IV antibiotics. 04/28 extubated after weaning trial and placed on NRM. placed on BIpap and treated for stridor with solumedrol IV, Duonebs and Racemic epi INH With weak cough reflex , unable to expectorate 05/01 Neurologically much improved, awake , alert follows commands , with dysarthria , coughing spells when trying to sip some water , hemodynamically stable, afebrile On tube feeding 05/02 appears more somnolent today not verbal , follows commands and moves all 4 extremities 1. Progressive Acute ischemic stroke with AMS / lethargy initial presentation of patient was : acute stroke to right frontal lobe that progressed to right mcleod radiata and centrum semiovale stroke Developed worsening mental status, unable to handle secretions, aspirating , with acute respiratory failure requiring intubation . s/p extubation Had significant improvement 05/01 , moving all 4 extremities ,following commands, some left side weakness , left facial droop and dysarthria . Today appears somnolent and not verbal moving extremities and follows commands Repeat CT head 05/02 showed Evolving subacute right MCA territory infarction involving the right frontal subcortical white matter, mcleod radiata and basal ganglia. No evidence of hemorrhagic transformation. Old lacunar infarctions in the right basal ganglia and left anterior limb of internal capsule, thalamus and basal ganglia. Will increase Eliquist from 2.5 mg BID to 5 mg po BID as per neuro Continue ASA, statin, glycemic control, BP control Will herbie to d/c depakote to avoid sedation Continue aricept Keep NPO with tube feedings until cleared by speech therapist Follow up Video Swallow eval Continue PT / OT Plan for rehab 2. Acute hypercapnic respiratory failure Most likely secondary to aspiration pneumonia and patient's inability to handle secretions due to AMS/ CVA extubated 04/28 and at present saturating 96 % on 3 L O2 via NC, with weak cough reflex, unable to expectorate Repeat CXR 05/01 showed no active disease With thick mucoid respiratory secretions and with coarse breath sounds Keep HOB elevated continue Duonebs RTC , Acetylcysteine Respiratory toilet with frequent suctioning as tolerated strict NPO with tube feeding until cleared by speech therapist since patient had coughing spells with sips of water Follow up Video swallow eval Received full course of IV Meropenem and Vancomycin as per ID. All antibiotics discontinued at present Continue respiratory support, aspiration precautions 3. Suspected aspiration Pneumonia/ pneumonitis initially with CXR findings of new right lobe infiltrate prior to intubation and large secretions suctioned during intubation Received IV meropenem and Vanco-- d/c ID and pulmonary were consulted Blood c/s : neg so far Repeat CXR on 05/01 shows no active disease continuos to have upper airway thick mucoid secretions unable to expectorate . Continue respiratory toilet with frequent suctioning if tolerated and breathing treatments 4 .Uncontrolled DM with hyperglycemia Continue accuchecks, insulin coverage increased Levemir to 30 units HS 05/01 cont Glucotrol, prandin , Januvia Hgb A1c 16 NPO until cleared by speech therapist on Glucerna NGT feeding 5. Hypertension permissive hypertension while stroke was evolving on enalapril 2.5 mg PO bid and labetalol 6. Dyslipidemia c/w Atorvastatin 40 mg PO 7. Diabetic foot calluses podiatry consulted and following Doppler US of LE - good arterial flow 8. Diarrhea-improved flexiseal still placed c dif x 3 negative improved 9. r/o UTI urine appears cloudy with Many WBC and bacteria Patient has no fever no WBC removed Ndiaye and sent urine cx that now is growing gram negative rods Hold of antibiotics for now discussed with ID 10. DVT ppx on eliquis ( increase dose )
--- NOTE | 2017-05-02 16:05 | CP.PCM.PN ---
Subjective - Date & Time of Evaluation Date of Evaluation: 05/02/17 Time of Evaluation: 10:40 - Subjective Subjective: F/U Respiratory failure. Objective - Vital Signs/Intake and Output Vital Signs (last 24 hours): Temp Pulse Resp BP Pulse Ox 98.9 F 74 19 131/58 L 93 L 05/02/17 12:00 05/02/17 12:00 05/02/17 12:00 05/02/17 12:00 05/02/17 12:00 Intake and Output: 05/02/17 05/02/17 06:59 18:59 Intake Total 1100 570 Output Total 100 200 Balance 1000 370 - Medications Medications: Current Medications Acetaminophen (Tylenol 325mg Tab) 650 mg PO Q6 PRN PRN Reason: fever > 100.4 Last Admin: 04/29/17 04:06 Dose: 650 mg Acetaminophen (Tylenol 650 Mg Supp) 650 mg [place] Q4 PRN PRN Reason: Fever >100.4 F Last Admin: 04/29/17 15:58 Dose: 650 mg Acetylcysteine (Acetylcysteine 20%) 3 ml PO BID [facility] Stop: 05/03/17 09:01 Last Admin: 05/02/17 16:01 Dose: 3 ml Acetylcysteine (Acetylcysteine 20%) 2 ml INH RBID [facility] Last Admin: 05/02/17 08:02 Dose: Not Given Apixaban (Eliquis) 5 mg PO BID [facility] PRN Reason: Protocol Aspirin (Aspirin Chewable) 81 mg PO DAILY [facility] Last Admin: 05/02/17 08:52 Dose: 81 mg Atorvastatin Calcium (Lipitor) 40 mg PO [facility] Last Admin: 05/01/17 22:37 Dose: 40 mg Bacitracin (Bacitracin Oint) 1 applic TOP BID [facility] Last Admin: 05/02/17 08:52 Dose: 1 applic Dimethicone (Proshield Plus Skin Protectant) 1 applic TOP Q8 PRN PRN Reason: Dry skin Last Admin: 05/02/17 08:54 Dose: 1 applic Donepezil HCl (Aricept) 5 mg PO HS [facility] Last Admin: 05/01/17 22:37 Dose: 5 mg Enalapril Maleate (Vasotec) 2.5 mg PO BID [facility] Last Admin: 05/02/17 08:56 Dose: 2.5 mg Glipizide (Glucotrol Xl) 10 mg PO BRKDIN [facility] Last Admin: 05/02/17 08:57 Dose: 10 mg Guaifenesin/Dextromethorphan (Mucinex-Dm 600-30 Mg) 1 tab PO BID [facility] Last Admin: 05/02/17 08:54 Dose: 1 tab Ertapenem 1 gm/ Sodium (Chloride) 100 mls @ 100 mls/hr IVPB DAILY [facility] PRN Reason: Protocol Insulin Detemir (Levemir) 30 units SC HS [facility] Last Admin: 05/01/17 22:42 Dose: 30 units Insulin Human Regular (Humulin R) 0 units SC [facility] PRN Reason: Protocol Last Admin: 05/02/17 12:24 Dose: 1 units Ipratropium [place] (Atrovent) 0.5 mg IH RQ8 [facility] Last Admin: 05/02/17 07:50 Dose: 0.5 mg Labetalol HCl (Trandate) 100 mg PO BID [facility] Last Admin: 05/02/17 08:56 Dose: 100 mg Levalbuterol HCl (Xopenex) 0.63 mg INH RQ8 [facility] Last Admin: 05/02/17 16:01 Dose: 0.63 mg Pantoprazole Sodium (Protonix Inj) 40 mg IVP DAILY [facility] Last Admin: 05/02/17 08:55 Dose: 40 mg Repaglinide (Prandin) 1 mg PO TID [facility] Last Admin: 05/02/17 12:26 Dose: 1 mg Sitagliptin Phosphate (Januvia) 50 mg PO BID [facility] Last Admin: 05/02/17 08:54 Dose: 50 mg Valproate Sodium (Depakene Oral Soln) 250 mg PO DAILY [facility] Last Admin: 05/02/17 08:53 Dose: 250 mg - Labs Labs: 05/02/17 04:30 05/02/17 04:30 PT 9.7 Seconds (9.8-13.1) L 04/12/17 21:15 INR 0.9 (0.9-1.2) 04/12/17 21:15 APTT 26.0 Seconds (25.6-37.1) 04/12/17 21:15 - Constitutional Appears: Chronically Ill - Head Exam Head Exam: NORMAL INSPECTION - Eye Exam Eye Exam: PERRL - ENT Exam Additional comments: On high flow O2 - Neck Exam Neck Exam: Normal Inspection - Respiratory Exam Respiratory Exam: Rhonchi (scattered at bases) - Cardiovascular Exam Cardiovascular Exam: REGULAR RHYTHM - GI/Abdominal Exam GI & Abdominal Exam: Soft, Normal Bowel Sounds - Extremities Exam Extremities Exam: Normal Inspection - Back Exam Back Exam: NORMAL INSPECTION - Neurological Exam Neurological Exam: Alert Additional comments: Follows commands, no moving LUE, limited movements LLE on commands. - Psychiatric Exam Additional comments: Calm - Skin Skin Exam: Warm Assessment and Plan (1) Respiratory failure Status: Resolved (2) Aspiration pneumonia Status: Resolved (3) CVA (cerebral vascular accident) Status: Acute
[2017-05-02] MEDS: Insulin Detemir 100 Units/ml Inj SC SCH (21:40)
[2017-05-03] MEDS: Levalbuterol 0.63 MG/3 ML Inhal Soln UD INH SCH ×4 (00:31→19:43)
[2017-05-03] MEDS: Ipratropium 0.02% Inhal Soln (0.5 mg/2.5 ml) UD IH SCH ×2 (00:32→08:05)
[2017-05-03 05:25] LABS: BLOOD UREA NITROGEN 26 mg/dl (7-17); CALCIUM 8.8 mg/dL (8.4-10.2); GFR AFRICAN-AMERICAN > 60; GFR NON-AFRICAN AMERICAN > 60
[2017-05-03] MEDS: Insulin Regular 100 units/ml SC SCH ×4 (06:31→21:19)
[2017-05-03] MEDS: Acetylcysteine 20% Inhal Soln (4ml) PO SCH (08:03)
[2017-05-03] MEDS: Acetylcysteine 20% Inhal Soln (4ml) INH SCH ×2 (08:04→19:43)
[2017-05-03] MEDS: Valproic Acid 250 mg/5 ml UD Cup PO SCH (09:45)
[2017-05-03] MEDS: GlipiZIDE 10 mg SR Tab PO SCH ×2 (09:46→16:44)
[2017-05-03] MEDS: guaiFENesin-DM 600-30 mg ER Tab PO SCH ×2 (09:48→16:45)
[2017-05-03] MEDS: Bacitracin OINT 15GM TOP SCH ×2 (09:50→16:44)
[2017-05-03] MEDS: Proshield Plus GEL TOP PRN (09:50)
[2017-05-03 10:11] LABS: BASO % 0.3 % (0.0-2.0); EOS # 0.2 K/uL (0.0-0.7); EOS % 1.6 % (0.0-4.0); HEMOGLOBIN 11.4 g/dL (12.0-16.0); LYMPH # 1.3 K/uL (1.0-4.3); LYMPH % 11.2 % (20.0-40.0); MEAN CELL VOLUME 88.5 fl (81.0-99.0); MEAN CORPUSCULAR HGB CONC 31.6 g/dL (33.0-37.0); MEAN PLATELET VOLUME 10.5 fl (7.2-11.7); MONO # 0.6 K/uL (0.0-0.8); MONO % 5.5 % (0.0-10.0); NEUT # 9.1 K/uL (1.8-7.0); NEUT % 81.4 % (50.0-75.0); RBC 4.06 Mil/uL (3.80-5.20); RED CELL DISTRIBUTION WIDTH 14.4 % (11.5-14.5); WHITE BLOOD COUNT 11.2 K/uL (4.8-10.8)
--- NOTE | 2017-05-03 10:28 | CP.CCUPN ---
<Sharyn Hidalgo - Last Filed: 05/03/17 14:47> CCU Subjective - Physician Review Subjective (Free Text): 05/03/17 This is a 72 y/o F with PMHx of HTN, HLD, DM, CAD and bilateral hallus ulceration. Patient was initially admitted to the telemetry unit with acute cerebral vascular accident. On 04/17 patient developed change in mental status/left upper extremity weakness, [facility] was called and was transferred to ICU. On 04/20 patient was transferred back to Telemetry unit. Patient was seen and examined with heel burnisher attending during ICU round this morning. Patient is awake, open eyes, following simple commands. Continue with expressive aphasia. Patient has failed swallow eval daily x 6 days, and as per Speech therapist patient is not a good candidate for video swallow eval, high risk for aspiration. Still having nonbloody diarrheas, C-diff x 2 negative last week, and is in no antibiotics. As per nurse patient refused PT/OT yesterday. No events overnight. Critical Care Time Spent (in minutes): 35 CCU Objective - Vital Signs / Intake & Output Vital Signs (Last 4 hours): Vital Signs Temp Pulse Resp BP Pulse Ox 05/03/17 08:00 98.4 F 84 24 157/72 H 96 05/03/17 07:49 81 18 149/70 95 Intake and Output (Last 8hrs): Intake & Output 05/02/17 05/03/17 05/03/17 22:59 06:59 14:59 Intake Total 850 650 350 Output Total 50 300 Balance 800 350 350 Weight 170 lb Intake: IV 100 Tube Feeding 300 400 100 Free Water Flush 450 250 250 Output: Stool 50 300 - Physical Exam Head: Positive for: Atraumatic, Normocephalic Pupils: Positive for: PERRL Conjunctiva: Positive for: Normal Mouth: Positive for: Dry Neck: Positive for: Normal Range of Motion Respiratory/Chest: Positive for: Clear to Auscultation, Rhonchi (diffuse and bilateral). Negative for: Respiratory Distress, Wheezes, Decreased Breath Sounds, Rales Cardiovascular: Positive for: Regular Rate and Rhythm, Normal S1, S2, Tachycardic Abdomen: Positive for: Normal Bowel Sounds. Negative for: Tenderness, Distention, Guarding Rectal: Positive for: Other (rectal tube in place) Upper Extremity: Positive for: Capillary Refill < 2s. Negative for: Cyanosis Lower Extremity: Negative for: Edema, CALF TENDERNESS Neurological: Positive for: Other (following simple commands, expressive aphasia ) Skin: Positive for: Warm, Dry, Pale Psychiatric: Positive for: Alert - Medications Active Medications: Active Medications Generic Name Dose Route Start Last Admin Trade Name Freq PRN Reason Stop Dose Admin Acetaminophen 650 mg 04/15/17 23:34 04/29/17 04:06 Tylenol 325mg Tab PO 650 mg Q6 PRN Administration fever > 100.4 Acetaminophen 650 mg 04/21/17 20:53 04/29/17 15:58 Tylenol 650 Mg Supp [place] 650 mg Q4 PRN Administration Fever >100.4 F Acetylcysteine 2 ml 05/01/17 20:00 05/03/17 08:04 Acetylcysteine 20% INH Not Given RBID BRIAN Apixaban 5 mg 05/02/17 17:00 05/03/17 09:45 Eliquis PO 5 mg BID BRIAN Administration Protocol Aspirin 81 mg 04/19/17 13:00 05/03/17 09:45 Aspirin Chewable PO 81 mg DAILY BRIAN Administration Atorvastatin Calcium 40 mg 04/13/17 22:00 05/02/17 21:41 Lipitor PO 40 mg HS BRIAN Administration Bacitracin 1 applic 04/16/17 09:00 05/03/17 09:50 Bacitracin Oint TOP 1 applic BID BRIAN Administration Dimethicone 1 applic 04/27/17 11:37 05/03/17 09:50 Proshield Plus Skin Protectant TOP 1 applic Q8 PRN Administration Dry skin Donepezil HCl 5 mg 04/29/17 22:00 05/02/17 21:42 Aricept PO 5 mg HS BRIAN Administration Enalapril Maleate 2.5 mg 04/19/17 17:00 05/03/17 09:49 Vasotec PO 2.5 mg BID BRIAN Administration Glipizide 10 mg 04/14/17 08:00 05/03/17 09:46 Glucotrol Xl PO 10 mg BRKDIN BRIAN Administration Guaifenesin/Dextromethorphan 1 tab 05/01/17 09:00 05/03/17 09:48 Mucinex-Dm 600-30 Mg PO 1 tab BID BRIAN Administration Ertapenem 1 gm/ Sodium 100 mls @ 100 mls/hr 05/02/17 13:30 05/03/17 09:47 Chloride IVPB 100 mls/hr DAILY BRIAN Administration Protocol Insulin Detemir 30 units 05/01/17 09:00 05/02/17 21:40 Levemir SC 30 units HS BRIAN Administration Insulin Human Regular 0 units 04/13/17 07:30 05/03/17 06:31 Humulin R SC 2 units ACHS BRIAN Administration Protocol Ipratropium [place] 0.5 mg 04/29/17 16:00 05/03/17 08:05 Atrovent IH 0.5 mg RQ8 BRIAN Administration Labetalol HCl 100 mg 05/01/17 09:00 05/03/17 09:48 Trandate PO 100 mg BID BRIAN Administration Levalbuterol HCl 0.63 mg 04/29/17 16:00 05/03/17 08:03 Xopenex INH 0.63 mg RQ8 BRIAN Administration Pantoprazole Sodium 40 mg 04/22/17 09:00 05/03/17 09:50 Protonix Inj IVP 40 mg DAILY BRIAN Administration Repaglinide 1 mg 04/14/17 09:00 05/03/17 09:48 Prandin PO 1 mg TID BRIAN Administration Sitagliptin Phosphate 50 mg 04/14/17 09:00 05/03/17 09:48 Januvia PO 50 mg BID BRIAN Administration Valproate Sodium 250 mg 05/01/17 09:00 05/03/17 09:45 Depakene Oral Soln PO 250 mg DAILY BRIAN Administration - Patient Studies Lab Studies: Microbiology Studies 05/01/17 10:10 Urine Culture - Final Urine,Leslie Escherichia Coli 04/29/17 19:20 Blood Culture - Preliminary Blood-Venous NO GROWTH AFTER 3 DAYS 04/29/17 19:20 Blood Culture - Preliminary Blood-Venous NO GROWTH AFTER 3 DAYS 04/28/17 13:57 Blood Culture - Preliminary Blood NO GROWTH AFTER 4 DAYS Lab Studies 05/03/17 05/03/17 05/03/17 Range/Units 06:03 05:00 05:00 WBC 11.2 H (4.8-10.8) K/uL RBC 4.06 (3.80-5.20) Mil/uL Hgb 11.4 L (12.0-16.0) g/dL Hct 35.9 (34.0-47.0) % MCV 88.5 (81.0-99.0) fl MCH 28.0 (27.0-31.0) pg MCHC 31.6 L (33.0-37.0) g/dL RDW 14.4 (11.5-14.5) % Plt Count 322 (130-400) K/uL MPV 10.5 (7.2-11.7) fl Neut % (Auto) 81.4 H (50.0-75.0) % Lymph % (Auto) 11.2 L (20.0-40.0) % [place] % (Auto) 5.5 (0.0-10.0) % Eos % (Auto) 1.6 (0.0-4.0) % Baso % (Auto) 0.3 (0.0-2.0) % Neut # (Auto) 9.1 H (1.8-7.0) K/uL Lymph # (Auto) 1.3 (1.0-4.3) K/uL [place] # (Auto) 0.6 (0.0-0.8) K/uL Eos # (Auto) 0.2 (0.0-0.7) K/uL Baso # (Auto) 0.0 (0.0-0.2) K/uL Sodium 142 (132-148) mmol/l Potassium 4.0 (3.6-5.0) MMOL/L Chloride 102 (98-107) mmol/L Carbon Dioxide 30 (22-30) mmol/L Anion Gap 14 (10-20) BUN 26 H (7-17) mg/dl Creatinine 0.6 L (0.7-1.2) mg/dl Est GFR ( Amer) > 60 Est GFR (Non-Af Amer) > 60 POC Glucose (mg/dL) 200 H (65-110) mg/dL Random Glucose 222 H (65-105) mg/dL Calcium 8.8 (8.4-10.2) mg/dL 05/02/17 05/02/17 05/02/17 Range/Units 21:17 16:42 11:19 WBC (4.8-10.8) K/uL RBC (3.80-5.20) Mil/uL Hgb (12.0-16.0) g/dL Hct (34.0-47.0) % MCV (81.0-99.0) fl MCH (27.0-31.0) pg MCHC (33.0-37.0) g/dL RDW (11.5-14.5) % Plt Count (130-400) K/uL MPV (7.2-11.7) fl Neut % (Auto) (50.0-75.0) % Lymph % (Auto) (20.0-40.0) % [place] % (Auto) (0.0-10.0) % Eos % (Auto) (0.0-4.0) % Baso % (Auto) (0.0-2.0) % Neut # (Auto) (1.8-7.0) K/uL Lymph # (Auto) (1.0-4.3) K/uL [place] # (Auto) (0.0-0.8) K/uL Eos # (Auto) (0.0-0.7) K/uL Baso # (Auto) (0.0-0.2) K/uL Sodium (132-148) mmol/l Potassium (3.6-5.0) MMOL/L Chloride (98-107) mmol/L Carbon Dioxide (22-30) mmol/L Anion Gap (10-20) BUN (7-17) mg/dl Creatinine (0.7-1.2) mg/dl Est GFR ( Amer) Est GFR (Non-Af Amer) POC Glucose (mg/dL) 201 H 246 H 199 H (65-110) mg/dL Random Glucose (65-105) mg/dL Calcium (8.4-10.2) mg/dL Laboratory Results - last 24 hr 05/02/17 05/02/17 05/02/17 11:19 16:42 21:17 WBC RBC Hgb Hct MCV MCH MCHC RDW Plt Count MPV Neut % (Auto) Lymph % (Auto) [place] % (Auto) Eos % (Auto) Baso % (Auto) Neut # (Auto) Lymph # (Auto) [place] # (Auto) Eos # (Auto) Baso # (Auto) Sodium Potassium Chloride Carbon Dioxide Anion Gap BUN Creatinine Est GFR ( Amer) Est GFR (Non-Af Amer) POC Glucose (mg/dL) 199 H 246 H 201 H Random Glucose Calcium 05/03/17 05/03/17 05/03/17 05:00 05:00 06:03 WBC 11.2 H RBC 4.06 Hgb 11.4 L Hct 35.9 MCV 88.5 MCH 28.0 MCHC 31.6 L RDW 14.4 Plt Count 322 MPV 10.5 Neut % (Auto) 81.4 H Lymph % (Auto) 11.2 L [place] % (Auto) 5.5 Eos % (Auto) 1.6 Baso % (Auto) 0.3 Neut # (Auto) 9.1 H Lymph # (Auto) 1.3 [place] # (Auto) 0.6 Eos # (Auto) 0.2 Baso # (Auto) 0.0 Sodium 142 Potassium 4.0 Chloride 102 Carbon Dioxide 30 Anion Gap 14 BUN 26 H Creatinine 0.6 L Est GFR ( Amer) > 60 Est GFR (Non-Af Amer) > 60 POC Glucose (mg/dL) 200 H Random Glucose 222 H Calcium 8.8 Fingerstick Blood Sugar Results: 200 Assessment/Plan - Assessment and Plan (Free Text) Plan: Acute Ischemic Stroke -with aphasia, and LUE weakness -Patient is still failing swallow eval, and is not good candidate for video swallow eval because high risk for aspiration, as per Speech therapist -Held aspirin 81 mg today as per GI rec for possible PEG tube placement -Held Eliquis today as per GI rec for possible PEG tube placement -On atorvastatin 40 mg daily -c/w glycemic control -last Head CT w/o contrast on 05/02/17 reported evolving subacute right MCA territory infarct involving the right frontal subcortical white matter, [facility] and basal ganglia. No evidence of hemorrhagic transformation. -c/w PT/OT treatment -Pending transfer to Acute rehabilitation Because patient continues to fail swallow eval daily for 6 days, and already had an episode of aspiration pneumonia treated with IV antibiotics, delay in transfer to acute rehab for optimization of her rehabilitation after ischemic CVA associated with expressive aphasia and left sided weakness, after discussion during rounds, patient may benefit from a PEG tube placement for feeding and PO meds. Family was called, patient's spouse. We discussed PEG tube placement, and explain risk and benefits. Her spouse is going to think about it and discuss with rest of family. GI was consulted, Dr. Marin, who recommended stop aspirin and eliquis today for possible PEG tube placement on Tuesday. Get consent from next of kin. If started on Lovenox or heparin hold it 12-24 hours before procedure. Neurology was called and made aware of GI recommendations before procedure, and recommended start therapeutic Lovenox for anticoagulation, and resume ASA and eliquis after procedure. Dysphagia -most likely 2/2 CVA -c/w aspiration precautions -Has an NG tube for feeding and meds -has failed swallow eval x 6 days -GI consult for possible PEG tube placement, recs appreciated -Consent for next of kin for PEG tube Acute Respiratory Failure -likely 2/2 aspiration Pneumonia vs HAP -resolved -Afebrile -successful extubated on 04/27/17 -c/w oxygen via NC, oxygen sat 93 % on NC at 5 LPM -Repeat Blood Cx negative after 3 days -on Xopenex and ipratropium neb Q8 -CXR on 05/01/17 reported as no active disease -Pulmonology on consult. Rec are appreciated -ID was consulted. Rec are appreciated. Positive urine culture -s/p leslie cath -pt is incontinent -afebrile, mild leukocytosis -started Ertapenem 1 gram IV daily on 05/02/17 as per ID. Day #2 Diet -c/w Glucernal feeding a@ 50 ml/hr -Give free water 250 ml Q6 hours -has failed swallow eval x 6 days -GI consult for possible PEG tube placement, recs appreciated Diarrheas -C-diff x 3 negative -ID consulted, recs appreciated Hypertension -c/w enalapril 2.5 mg BID -labetalol 100 mg PO BID started on 04/29/17 because uncontrolled HTN Diabetes Mellitus type2 -c/w glycemic control -Hgb A1c 16 Diabetic foot calluses -Podiatry on consult by primary team -Podiatry recs are appreciated Prophylaxis -DVT prophylaxis : on SCDs and therapeutic lovenox for ischemic CVA as per Neuro rec. Held Eliquis as per GI for possible PEG tube on tuesday. Neurology team was made aware. -stress ulcer prophylaxis: Protonix 40 mg IV daily -pressure ulcers precautions - Date & Time Date: 05/03/17 Time: 08:55 <Abner Sanchez - Last Filed: 05/03/17 15:46> CCU Objective - Vital Signs / Intake & Output Vital Signs (Last 4 hours): Vital Signs Temp Pulse Resp BP Pulse Ox 05/03/17 12:00 98.7 F 73 17 118/61 96 Intake and Output (Last 8hrs): Intake & Output 05/03/17 05/03/17 05/03/17 06:59 14:59 22:59 Intake Total 650 900 Output Total 300 Balance 350 900 Weight 170 lb Intake: Intake, Piggyback 100 Oral 200 Tube Feeding 400 100 Free Water Flush 250 500 Output: Stool 300 - Medications Active Medications: Active Medications Generic Name Dose Route Start Last Admin Trade Name Freq PRN Reason Stop Dose Admin Acetaminophen 650 mg 04/15/17 23:34 04/29/17 04:06 Tylenol 325mg Tab PO 650 mg Q6 PRN Administration fever > 100.4 Acetaminophen 650 mg 04/21/17 20:53 04/29/17 15:58 Tylenol 650 Mg Supp [place] 650 mg Q4 PRN Administration Fever >100.4 F Acetylcysteine 2 ml 05/01/17 20:00 05/03/17 08:04 Acetylcysteine 20% INH Not Given RBID BRIAN Apixaban 5 mg 05/02/17 17:00 05/03/17 09:45 Eliquis PO 5 mg BID BRIAN Administration Protocol Aspirin 81 mg 04/19/17 13:00 05/03/17 09:45 Aspirin Chewable PO 81 mg DAILY BRIAN Administration Atorvastatin Calcium 40 mg 04/13/17 22:00 05/02/17 21:41 Lipitor PO 40 mg HS BRIAN Administration Bacitracin 1 applic 04/16/17 09:00 05/03/17 09:50 Bacitracin Oint TOP 1 applic BID BRIAN Administration Dimethicone 1 applic 04/27/17 11:37 05/03/17 09:50 Proshield Plus Skin Protectant TOP 1 applic Q8 PRN Administration Dry skin Donepezil HCl 5 mg 04/29/17 22:00 05/02/17 21:42 Aricept PO 5 mg HS BRIAN Administration Enalapril Maleate 2.5 mg 04/19/17 17:00 05/03/17 09:49 Vasotec PO 2.5 mg BID BRIAN Administration Enoxaparin Sodium 75 mg 05/03/17 21:00 Lovenox SC Q12 BRIAN Protocol Glipizide 10 mg 04/14/17 08:00 05/03/17 09:46 Glucotrol Xl PO 10 mg BRKDIN BRIAN Administration Guaifenesin/Dextromethorphan 1 tab 05/01/17 09:00 05/03/17 09:48 Mucinex-Dm 600-30 Mg PO 1 tab BID BRIAN Administration Ertapenem 1 gm/ Sodium 100 mls @ 100 mls/hr 05/02/17 13:30 05/03/17 09:47 Chloride IVPB 100 mls/hr DAILY BRIAN Administration Protocol Insulin Detemir 30 units 05/01/17 09:00 05/02/17 21:40 Levemir SC 30 units HS BRIAN Administration Insulin Human Regular 0 units 04/13/17 07:30 05/03/17 12:54 Humulin R SC 1 units ACHS BRIAN Administration Protocol Ipratropium [place] 0.5 mg 04/29/17 16:00 05/03/17 08:05 Atrovent IH 0.5 mg RQ8 BRIAN Administration Labetalol HCl 100 mg 05/01/17 09:00 05/03/17 09:48 Trandate PO 100 mg BID BRIAN Administration Levalbuterol HCl 0.63 mg 04/29/17 16:00 05/03/17 08:03 Xopenex INH 0.63 mg RQ8 BRIAN Administration Pantoprazole Sodium 40 mg 04/22/17 09:00 05/03/17 09:50 Protonix Inj IVP 40 mg DAILY BRIAN Administration Repaglinide 1 mg 04/14/17 09:00 05/03/17 12:55 Prandin PO 1 mg TID BRIAN Administration Sitagliptin Phosphate 50 mg 04/14/17 09:00 05/03/17 09:48 Januvia PO 50 mg BID BRIAN Administration Valproate Sodium 250 mg 05/01/17 09:00 05/03/17 09:45 Depakene Oral Soln PO 250 mg DAILY BRIAN Administration - Patient Studies Lab Studies: Microbiology Studies 05/01/17 10:10 Urine Culture - Final Urine,Leslie Escherichia Coli 04/29/17 19:20 Blood Culture - Preliminary Blood-Venous NO GROWTH AFTER 3 DAYS 04/29/17 19:20 Blood Culture - Preliminary Blood-Venous NO GROWTH AFTER 3 DAYS 04/28/17 13:57 Blood Culture - Preliminary Blood NO GROWTH AFTER 4 DAYS Lab Studies 05/03/17 05/03/17 05/03/17 Range/Units 11:14 06:03 05:00 WBC (4.8-10.8) K/uL RBC (3.80-5.20) Mil/uL Hgb (12.0-16.0) g/dL Hct (34.0-47.0) % MCV (81.0-99.0) fl MCH (27.0-31.0) pg MCHC (33.0-37.0) g/dL RDW (11.5-14.5) % Plt Count (130-400) K/uL MPV (7.2-11.7) fl Neut % (Auto) (50.0-75.0) % Lymph % (Auto) (20.0-40.0) % [place] % (Auto) (0.0-10.0) % Eos % (Auto) (0.0-4.0) % Baso % (Auto) (0.0-2.0) % Neut # (Auto) (1.8-7.0) K/uL Lymph # (Auto) (1.0-4.3) K/uL [place] # (Auto) (0.0-0.8) K/uL Eos # (Auto) (0.0-0.7) K/uL Baso # (Auto) (0.0-0.2) K/uL Sodium 142 (132-148) mmol/l Potassium 4.0 (3.6-5.0) MMOL/L Chloride 102 (98-107) mmol/L Carbon Dioxide 30 (22-30) mmol/L Anion Gap 14 (10-20) BUN 26 H (7-17) mg/dl Creatinine 0.6 L (0.7-1.2) mg/dl Est GFR ( Amer) > 60 Est GFR (Non-Af Amer) > 60 POC Glucose (mg/dL) 156 H 200 H (65-110) mg/dL Random Glucose 222 H (65-105) mg/dL Calcium 8.8 (8.4-10.2) mg/dL 05/03/17 05/02/17 05/02/17 Range/Units 05:00 21:17 16:42 WBC 11.2 H (4.8-10.8) K/uL RBC 4.06 (3.80-5.20) Mil/uL Hgb 11.4 L (12.0-16.0) g/dL Hct 35.9 (34.0-47.0) % MCV 88.5 (81.0-99.0) fl MCH 28.0 (27.0-31.0) pg MCHC 31.6 L (33.0-37.0) g/dL RDW 14.4 (11.5-14.5) % Plt Count 322 (130-400) K/uL MPV 10.5 (7.2-11.7) fl Neut % (Auto) 81.4 H (50.0-75.0) % Lymph % (Auto) 11.2 L (20.0-40.0) % [place] % (Auto) 5.5 (0.0-10.0) % Eos % (Auto) 1.6 (0.0-4.0) % Baso % (Auto) 0.3 (0.0-2.0) % Neut # (Auto) 9.1 H (1.8-7.0) K/uL Lymph # (Auto) 1.3 (1.0-4.3) K/uL [place] # (Auto) 0.6 (0.0-0.8) K/uL Eos # (Auto) 0.2 (0.0-0.7) K/uL Baso # (Auto) 0.0 (0.0-0.2) K/uL Sodium (132-148) mmol/l Potassium (3.6-5.0) MMOL/L Chloride (98-107) mmol/L Carbon Dioxide (22-30) mmol/L Anion Gap (10-20) BUN (7-17) mg/dl Creatinine (0.7-1.2) mg/dl Est GFR ( Amer) Est GFR (Non-Af Amer) POC Glucose (mg/dL) 201 H 246 H (65-110) mg/dL Random Glucose (65-105) mg/dL Calcium (8.4-10.2) mg/dL Laboratory Results - last 24 hr 05/02/17 05/02/17 05/03/17 16:42 21:17 05:00 WBC 11.2 H RBC 4.06 Hgb 11.4 L Hct 35.9 MCV 88.5 MCH 28.0 MCHC 31.6 L RDW 14.4 Plt Count 322 MPV 10.5 Neut % (Auto) 81.4 H Lymph % (Auto) 11.2 L [place] % (Auto) 5.5 Eos % (Auto) 1.6 Baso % (Auto) 0.3 Neut # (Auto) 9.1 H Lymph # (Auto) 1.3 [place] # (Auto) 0.6 Eos # (Auto) 0.2 Baso # (Auto) 0.0 Sodium Potassium Chloride Carbon Dioxide Anion Gap BUN Creatinine Est GFR ( Amer) Est GFR (Non-Af Amer) POC Glucose (mg/dL) 246 H 201 H Random Glucose Calcium 05/03/17 05/03/17 05/03/17 05:00 06:03 11:14 WBC RBC Hgb Hct MCV MCH MCHC RDW Plt Count MPV Neut % (Auto) Lymph % (Auto) [place] % (Auto) Eos % (Auto) Baso % (Auto) Neut # (Auto) Lymph # (Auto) [place] # (Auto) Eos # (Auto) Baso # (Auto) Sodium 142 Potassium 4.0 Chloride 102 Carbon Dioxide 30 Anion Gap 14 BUN 26 H Creatinine 0.6 L Est GFR ( Amer) > 60 Est GFR (Non-Af Amer) > 60 POC Glucose (mg/dL) 200 H 156 H Random Glucose 222 H Calcium 8.8 Assessment/Plan (1) Acute ischemic stroke Current Visit: Yes Status: Acute Comment: Improved Continue ASA, statin PT/OT Swallow Re-evaluation (2) Aspiration pneumonia Current Visit: Yes Status: Acute Comment: Completed course of IV meropenem and Vanco (3) Dyslipidemia Current Visit: Yes Status: Acute (4) Hypertension Current Visit: Yes Status: Acute (5) Type 2 diabetes mellitus with pressure callus Current Visit: Yes Status: Acute Attending/Attestation - Attestation I have personally seen and examined this patient.: Yes I have fully participated in the care of the patient.: Yes I have reviewed all pertinent clinical information: Yes Notes (Text): 05/03/17 15:46 Today: Wednesday, May 03, 2017 The patient was Seen/interviewed and examined by me at the bedside during ICU round, Medical records reviewed and Management issues were discussed and formulated with the house staff. Events reviewed I have reviewed all the relevant clinical, laboratory, hemodynamic, radiographic data and medications Pain issues, skin care, head of the bed elevation, glycemic control were addressed. I concur with resident's assessment and plan of care as transcribed in Dr. Hidalgo note.
--- NOTE | 2017-05-03 11:21 | CP.PCM.PN ---
Subjective - Date & Time of Evaluation Date of Evaluation: 05/03/17 Time of Evaluation: 12:30 - Subjective Subjective: ID Note- Pt. seen and examined today in ICU. pt. awake but somewhat restless. follows very simple commands only. Objective - Vital Signs/Intake and Output Vital Signs (last 24 hours): Temp Pulse Resp BP Pulse Ox 98.4 F 84 24 157/72 H 96 05/03/17 08:00 05/03/17 08:00 05/03/17 08:00 05/03/17 08:00 05/03/17 08:00 Intake and Output: 05/03/17 05/03/17 06:59 18:59 Intake Total 1100 350 Output Total 300 Balance 800 350 - Medications Medications: Current Medications Acetaminophen (Tylenol 325mg Tab) 650 mg PO Q6 PRN PRN Reason: fever > 100.4 Last Admin: 04/29/17 04:06 Dose: 650 mg Acetaminophen (Tylenol 650 Mg Supp) 650 mg [place] Q4 PRN PRN Reason: Fever >100.4 F Last Admin: 04/29/17 15:58 Dose: 650 mg Acetylcysteine (Acetylcysteine 20%) 2 ml INH RBID [facility] Last Admin: 05/03/17 08:04 Dose: Not Given Apixaban (Eliquis) 5 mg PO BID [facility] PRN Reason: Protocol Last Admin: 05/03/17 09:45 Dose: 5 mg Aspirin (Aspirin Chewable) 81 mg PO DAILY [facility] Last Admin: 05/03/17 09:45 Dose: 81 mg Atorvastatin Calcium (Lipitor) 40 mg PO HS [facility] Last Admin: 05/02/17 21:41 Dose: 40 mg Bacitracin (Bacitracin Oint) 1 applic TOP BID [facility] Last Admin: 05/03/17 09:50 Dose: 1 applic Dimethicone (Proshield Plus Skin Protectant) 1 applic TOP Q8 PRN PRN Reason: Dry skin Last Admin: 05/03/17 09:50 Dose: 1 applic Donepezil HCl (Aricept) 5 mg PO HS [facility] Last Admin: 05/02/17 21:42 Dose: 5 mg Enalapril Maleate (Vasotec) 2.5 mg PO BID [facility] Last Admin: 05/03/17 09:49 Dose: 2.5 mg Enoxaparin Sodium (Lovenox) 75 mg SC Q12 [facility] PRN Reason: Protocol Glipizide (Glucotrol Xl) 10 mg PO BRKDIN [facility] Last Admin: 05/03/17 09:46 Dose: 10 mg Guaifenesin/Dextromethorphan (Mucinex-Dm 600-30 Mg) 1 tab PO BID [facility] Last Admin: 05/03/17 09:48 Dose: 1 tab Ertapenem 1 gm/ Sodium (Chloride) 100 mls @ 100 mls/hr IVPB DAILY [facility] PRN Reason: Protocol Last Admin: 05/03/17 09:47 Dose: 100 mls/hr Insulin Detemir (Levemir) 30 units SC HS [facility] Last Admin: 05/02/17 21:40 Dose: 30 units Insulin Human Regular (Humulin R) 0 units SC ACHS [facility] PRN Reason: Protocol Last Admin: 05/03/17 06:31 Dose: 2 units Ipratropium [place] (Atrovent) 0.5 mg IH RQ8 [facility] Last Admin: 05/03/17 08:05 Dose: 0.5 mg Labetalol HCl (Trandate) 100 mg PO BID [facility] Last Admin: 05/03/17 09:48 Dose: 100 mg Levalbuterol HCl (Xopenex) 0.63 mg INH RQ8 [facility] Last Admin: 05/03/17 08:03 Dose: 0.63 mg Pantoprazole Sodium (Protonix Inj) 40 mg IVP DAILY [facility] Last Admin: 05/03/17 09:50 Dose: 40 mg Repaglinide (Prandin) 1 mg PO TID [facility] Last Admin: 05/03/17 09:48 Dose: 1 mg Sitagliptin Phosphate (Januvia) 50 mg PO BID [facility] Last Admin: 05/03/17 09:48 Dose: 50 mg Valproate Sodium (Depakene Oral Soln) 250 mg PO DAILY [facility] Last Admin: 05/03/17 09:45 Dose: 250 mg - Labs Labs: - Additional Findings Additional findings: - Head Exam Head Exam: ATRAUMATIC - Neck Exam Neck exam: Positive for: Full Rom Additional comments: supple - Respiratory Exam Additional comments: breath sounds heard b/l no wheezing - Cardiovascular Exam Cardiovascular Exam: RRR, +S1, +S2 - GI/Abdominal Exam GI & Abdominal Exam: Normal Bowel Sounds, Soft Additional comments: ND, NT - Extremities Exam Additional comments: no edema b/l LE, no ulcerations - Neurological Exam Additional comments: awake and somewhat agitated Laboratory Results - last 72 hr 04/30/17 04/30/17 05/01/17 16:19 21:15 04:00 WBC 9.0 RBC 4.12 Hgb 11.7 L Hct 36.5 MCV 88.4 MCH 28.2 MCHC 32.0 L RDW 14.4 Plt Count 312 MPV Neut % (Auto) Lymph % (Auto) [place] % (Auto) Eos % (Auto) Baso % (Auto) Neut # (Auto) Lymph # (Auto) [place] # (Auto) Eos # (Auto) Baso # (Auto) Sodium Potassium Chloride Carbon Dioxide Anion Gap BUN Creatinine Est GFR ( Amer) Est GFR (Non-Af Amer) POC Glucose (mg/dL) 201 H 259 H Random Glucose Calcium Total Bilirubin AST ALT Alkaline Phosphatase Total Protein Albumin Globulin Albumin/Globulin Ratio 05/01/17 05/01/17 05/01/17 05:28 05:37 11:06 WBC RBC Hgb Hct MCV MCH MCHC RDW Plt Count MPV Neut % (Auto) Lymph % (Auto) [place] % (Auto) Eos % (Auto) Baso % (Auto) Neut # (Auto) Lymph # (Auto) [place] # (Auto) Eos # (Auto) Baso # (Auto) Sodium 144 Potassium 3.9 Chloride 104 Carbon Dioxide 30 Anion Gap 14 BUN 23 H Creatinine 0.5 L Est GFR ( Amer) > 60 Est GFR (Non-Af Amer) > 60 POC Glucose (mg/dL) 232 H 209 H Random Glucose 250 H Calcium 8.7 Total Bilirubin AST ALT Alkaline Phosphatase Total Protein Albumin Globulin Albumin/Globulin Ratio 05/01/17 05/01/17 05/02/17 15:53 22:40 04:30 WBC 13.3 H RBC 4.12 Hgb 11.3 L Hct 36.2 MCV 88.0 MCH 27.5 MCHC 31.2 L RDW 14.6 H Plt Count 318 MPV Neut % (Auto) Lymph % (Auto) [place] % (Auto) Eos % (Auto) Baso % (Auto) Neut # (Auto) Lymph # (Auto) [place] # (Auto) Eos # (Auto) Baso # (Auto) Sodium Potassium Chloride Carbon Dioxide Anion Gap BUN Creatinine Est GFR ( Amer) Est GFR (Non-Af Amer) POC Glucose (mg/dL) 167 H 208 H Random Glucose Calcium Total Bilirubin AST ALT Alkaline Phosphatase Total Protein Albumin Globulin Albumin/Globulin Ratio 05/02/17 05/02/17 05/02/17 04:30 06:17 11:19 WBC RBC Hgb Hct MCV MCH MCHC RDW Plt Count MPV Neut % (Auto) Lymph % (Auto) [place] % (Auto) Eos % (Auto) Baso % (Auto) Neut # (Auto) Lymph # (Auto) [place] # (Auto) Eos # (Auto) Baso # (Auto) Sodium 142 Potassium 4.1 Chloride 103 Carbon Dioxide 30 Anion Gap 13 BUN 24 H Creatinine 0.6 L Est GFR ( Amer) > 60 Est GFR (Non-Af Amer) > 60 POC Glucose (mg/dL) 249 H 199 H Random Glucose 267 H Calcium 8.8 Total Bilirubin 0.4 AST 14 D ALT 27 Alkaline Phosphatase 71 Total Protein 6.5 Albumin 3.0 L Globulin 3.5 Albumin/Globulin Ratio 0.9 L 05/02/17 05/02/17 05/03/17 16:42 21:17 05:00 WBC 11.2 H RBC 4.06 Hgb 11.4 L Hct 35.9 MCV 88.5 MCH 28.0 MCHC 31.6 L RDW 14.4 Plt Count 322 MPV 10.5 Neut % (Auto) 81.4 H Lymph % (Auto) 11.2 L [place] % (Auto) 5.5 Eos % (Auto) 1.6 Baso % (Auto) 0.3 Neut # (Auto) 9.1 H Lymph # (Auto) 1.3 [place] # (Auto) 0.6 Eos # (Auto) 0.2 Baso # (Auto) 0.0 Sodium Potassium Chloride Carbon Dioxide Anion Gap BUN Creatinine Est GFR ( Amer) Est GFR (Non-Af Amer) POC Glucose (mg/dL) 246 H 201 H Random Glucose Calcium Total Bilirubin AST ALT Alkaline Phosphatase Total Protein Albumin Globulin Albumin/Globulin Ratio 05/03/17 05/03/17 05/03/17 05:00 06:03 11:14 WBC RBC Hgb Hct MCV MCH MCHC RDW Plt Count MPV Neut % (Auto) Lymph % (Auto) [place] % (Auto) Eos % (Auto) Baso % (Auto) Neut # (Auto) Lymph # (Auto) [place] # (Auto) Eos # (Auto) Baso # (Auto) Sodium 142 Potassium 4.0 Chloride 102 Carbon Dioxide 30 Anion Gap 14 BUN 26 H Creatinine 0.6 L Est GFR ( Amer) > 60 Est GFR (Non-Af Amer) > 60 POC Glucose (mg/dL) 200 H 156 H Random Glucose 222 H Calcium 8.8 Total Bilirubin AST ALT Alkaline Phosphatase Total Protein Albumin Globulin Albumin/Globulin Ratio Microbiology 05/01/17 10:10 Urine,Leslie Urine Culture - Final Escherichia Coli 04/29/17 19:20 Blood-Venous Blood Culture - Preliminary NO GROWTH AFTER 3 DAYS 04/29/17 19:20 Blood-Venous Blood Culture - Preliminary NO GROWTH AFTER 3 DAYS 04/28/17 13:57 Blood Blood Culture - Preliminary NO GROWTH AFTER 4 DAYS 04/28/17 21:10 Sputum Gram Stain - Final 04/28/17 21:10 Sputum Sputum Culture - Final Yeast Species 04/28/17 21:10 Urine,Leslie Urine Culture - Final Yeast Species 04/22/17 19:03 Blood-Venous Blood Culture - Final NO GROWTH AFTER 5 DAYS 04/22/17 19:03 Blood-Venous Gram Stain - Final TEST NOT PERFORMED 04/22/17 19:03 Blood-Venous Blood Culture - Final NO GROWTH AFTER 5 DAYS 04/22/17 19:03 Blood-Venous Gram Stain - Final TEST NOT PERFORMED 04/21/17 21:05 Blood-Venous Blood Culture - Final NO GROWTH AFTER 5 DAYS 04/21/17 21:05 Blood-Venous Gram Stain - Final TEST NOT PERFORMED 04/21/17 20:55 Blood-Venous Blood Culture - Final NO GROWTH AFTER 5 DAYS 04/21/17 20:55 Blood-Venous Gram Stain - Final TEST NOT PERFORMED 04/21/17 05:46 Trachasp Gram Stain - Final 04/21/17 05:46 Trachasp Sputum Culture - Final NORMAL ORAL LEIDA 04/21/17 05:45 Urine,Leslie Urine Culture - Final Yeast Species 04/20/17 07:34 Naris MRSA Culture (Admit) - Final MRSA NOT DETECTED 04/20/17 07:55 Urine,Clean Catch Urine Culture - Final Escherichia Coli 04/15/17 06:14 Blood-Venous Blood Culture - Final NO GROWTH AFTER 5 DAYS 04/15/17 06:14 Blood-Venous Gram Stain - Final TEST NOT PERFORMED 04/15/17 06:14 Blood-Venous Blood Culture - Final NO GROWTH AFTER 5 DAYS 04/15/17 06:14 Blood-Venous Gram Stain - Final TEST NOT PERFORMED 04/16/17 08:25 Naris MRSA Culture (Admit) - Final MRSA NOT DETECTED 04/12/17 21:15 Urine,Clean Catch Urine Culture - Final > 100,000 CFU/ML. MULTIPLE SPECIES. SUGGEST REPEAT SPECIMEM. Assessment and Plan (1) CVA (cerebral vascular accident) Status: Acute (2) Type 2 diabetes mellitus with pressure callus Status: Acute (3) Aspiration pneumonia Status: Resolved (4) UTI (urinary tract infection) Status: Acute - Assessment and Plan (Free Text) Assessment: A/P- 72 year old female with DM II, HTN was admitted with mental status change and was found to have acute ischemic stroke but was doing better and was transferred to step down unit, however, had [employer] and for resp distress and is s/ p post intubation and now has been extubated for 1 week. has been afebrile past 72 hours. leukocytosis once agian almost resolved today. blood cx- neg x 4 repeat UA from 04/30/2017- positive with larger LE, bacteria and yeast and prelim urine cx - form 04/30/2017- E.Coli pansensitive urine cx -e.coli pansensitive 04/20/2017 was treated for this with IV meropnem 7 days. influenza- negative new diarrhea stool c.diff- neg x [address] report noted. Plan- continue with IV ertapenem 1 gram IV daily , day #2 for E.coli UTI . advise total 5-7 days of the abx. avoid leslie insertion. monitor asp precautions. monitor wbc . all above d/w ICU team. ICU time spent 45 min.
--- NOTE | 2017-05-03 11:52 | CP.PCM.PN ---
Subjective - Date & Time of Evaluation Date of Evaluation: 05/03/17 Time of Evaluation: 11:50 - Subjective Subjective: Pt is lethargic however opens eyes with verbal stimuli no verbal output mocves extremities accdg to RN - more awake this am No fever Rectal tube in place - w/ brown liquid stool Objective - Vital Signs/Intake and Output Vital Signs (last 24 hours): Temp Pulse Resp BP Pulse Ox 98.4 F 84 24 157/72 H 96 05/03/17 08:00 05/03/17 08:00 05/03/17 08:00 05/03/17 08:00 05/03/17 08:00 Intake and Output: 05/03/17 05/03/17 06:59 18:59 Intake Total 1100 350 Output Total 300 Balance 800 350 - Medications Medications: Current Medications Acetaminophen (Tylenol 325mg Tab) 650 mg PO Q6 PRN PRN Reason: fever > 100.4 Last Admin: 04/29/17 04:06 Dose: 650 mg Acetaminophen (Tylenol 650 Mg Supp) 650 mg [place] Q4 PRN PRN Reason: Fever >100.4 F Last Admin: 04/29/17 15:58 Dose: 650 mg Acetylcysteine (Acetylcysteine 20%) 2 ml INH RBID [facility] Last Admin: 05/03/17 08:04 Dose: Not Given Apixaban (Eliquis) 5 mg PO BID [facility] PRN Reason: Protocol Last Admin: 05/03/17 09:45 Dose: 5 mg Aspirin (Aspirin Chewable) 81 mg PO DAILY [facility] Last Admin: 05/03/17 09:45 Dose: 81 mg Atorvastatin Calcium (Lipitor) 40 mg PO [facility] Last Admin: 05/02/17 21:41 Dose: 40 mg Bacitracin (Bacitracin Oint) 1 applic TOP BID [facility] Last Admin: 05/03/17 09:50 Dose: 1 applic Dimethicone (Proshield Plus Skin Protectant) 1 applic TOP Q8 PRN PRN Reason: Dry skin Last Admin: 05/03/17 09:50 Dose: 1 applic Donepezil HCl (Aricept) 5 mg PO [facility] Last Admin: 05/02/17 21:42 Dose: 5 mg Enalapril Maleate (Vasotec) 2.5 mg PO BID [facility] Last Admin: 05/03/17 09:49 Dose: 2.5 mg Enoxaparin Sodium (Lovenox) 75 mg SC Q12 [facility] PRN Reason: Protocol Glipizide (Glucotrol Xl) 10 mg PO BRKDIN [facility] Last Admin: 05/03/17 09:46 Dose: 10 mg Guaifenesin/Dextromethorphan (Mucinex-Dm 600-30 Mg) 1 tab PO BID [facility] Last Admin: 05/03/17 09:48 Dose: 1 tab Ertapenem 1 gm/ Sodium (Chloride) 100 mls @ 100 mls/hr IVPB DAILY [facility] PRN Reason: Protocol Last Admin: 05/03/17 09:47 Dose: 100 mls/hr Insulin Detemir (Levemir) 30 units SC HS [facility] Last Admin: 05/02/17 21:40 Dose: 30 units Insulin Human Regular (Humulin R) 0 units SC ACHS [facility] PRN Reason: Protocol Last Admin: 05/03/17 06:31 Dose: 2 units Ipratropium [place] (Atrovent) 0.5 mg IH RQ8 [facility] Last Admin: 05/03/17 08:05 Dose: 0.5 mg Labetalol HCl (Trandate) 100 mg PO BID [facility] Last Admin: 05/03/17 09:48 Dose: 100 mg Levalbuterol HCl (Xopenex) 0.63 mg INH RQ8 [facility] Last Admin: 05/03/17 08:03 Dose: 0.63 mg Pantoprazole Sodium (Protonix Inj) 40 mg IVP DAILY [facility] Last Admin: 05/03/17 09:50 Dose: 40 mg Repaglinide (Prandin) 1 mg PO TID [facility] Last Admin: 05/03/17 09:48 Dose: 1 mg Sitagliptin Phosphate (Januvia) 50 mg PO BID [facility] Last Admin: 05/03/17 09:48 Dose: 50 mg Valproate Sodium (Depakene Oral Soln) 250 mg PO DAILY [facility] Last Admin: 05/03/17 09:45 Dose: 250 mg - Labs Labs: 05/03/17 05:00 05/03/17 05:00 PT 9.7 Seconds (9.8-13.1) L 04/12/17 21:15 INR 0.9 (0.9-1.2) 04/12/17 21:15 APTT 26.0 Seconds (25.6-37.1) 04/12/17 21:15 - Constitutional Appears: No Acute Distress, Chronically Ill - Head Exam Head Exam: NORMAL INSPECTION, NORMOCEPHALIC - Eye Exam Eye Exam: EOMI, Normal appearance - ENT Exam ENT Exam: Mucous Membranes Dry, Normal External Ear Exam Additional comments: NGT in place - Respiratory Exam Respiratory Exam: NORMAL BREATHING PATTERN. absent: Respiratory Distress - Cardiovascular Exam Cardiovascular Exam: REGULAR RHYTHM, +S1, +S2 - GI/Abdominal Exam GI & Abdominal Exam: Soft, Normal Bowel Sounds. absent: Tenderness Additional comments: Rectal tube in place - Extremities Exam Extremities Exam: Normal Capillary Refill. absent: Pedal Edema - Neurological Exam Additional comments: Pt is lethargic however opens eyes with verbal stimuli - no verbal output noted to move extremities - Psychiatric Exam Psychiatric exam: Flat Affect - Skin Skin Exam: Dry, Normal Color, Warm Assessment and Plan - Assessment and Plan (Free Text) Assessment: 72 y/o F PMH DM, HTN, HLD brought to the ED with acutely worsening alteration of mental status and not as verbal . She presented with left facial droop and and some expressive aphasia.CT head was neg for acute CVA or bleed. Patient glucose was elevated 563. She was admitted initially in telemetry for further stroke work up and diabetes control . Neuro consulted.She was started on ASA, Statin, plavix,lovenox , Insulin and IVF .Her BP initially was kept elevated to allow permissive hypertension. MRI head showed acute stroke in right frontal lobe white matter / While in telemetry , the patient developed worsening BAILON and some left arm weakness. Patient became confused , agitated , restless ,not following any commands. She also started to have fever. Repeat MRI of the Brain : showed acute/ subacute stroke in right mcleod radiata and centrum ovale She was then transferred to ICU for close monitoring She continued to spike fevers for > 48 hours with no obvious source of infection and normal WBC count. All work up sent including CXR, UA,urine cx, blood cx were negative for infection so fever thought to be of central origin and no antibiotics were started 04/20 While in Tele , CHECKER called for stridor and respiratory distress . She developed acute hypercapnic respiratory failure was intubated and transferred to ICU. CXR showed new infiltrate, poss Asp PNA.She was started on IV antibiotics. 04/28 extubated after weaning trial and placed on NRM. placed on BIpap and treated for stridor with solumedrol IV, Duonebs and Racemic epi INH With weak cough reflex , unable to expectorate 05/01 Neurologically much improved, awake , alert follows commands , with dysarthria , coughing spells when trying to sip some water , hemodynamically stable, afebrile On tube feeding 05/03 : failed Swallow eval - Speech tx rec PEG 1. Progressive Acute ischemic stroke initial presentation of patient was : acute stroke to right frontal lobe that progressed to right mcleod radiata and centrum semiovale stroke Developed worsening mental status, unable to handle secretions Repeat CT head 05/02 showed Evolving subacute right MCA territory infarction involving the right frontal subcortical white matter, mcleod radiata and basal ganglia. No evidence of hemorrhagic transformation. Old lacunar infarctions in the right basal ganglia and left anterior limb of internal capsule, thalamus and basal ganglia. Eliquis dose increased from 2.5 mg BID to 5 mg po BID as per Neuro Continue ASA, statin, glycemic control, BP control Will taper to d/c depakote to avoid sedation Continue aricept Continue PT / OT Failed multiple Swallow eval - GI consult for PEG placement Plan for rehab 2. Acute hypercapnic respiratory failure Most likely secondary to aspiration pneumonia and patient's inability to handle secretions due to AMS/ CVA extubated 04/28 and at present saturating 96 % Repeat CXR 05/01 showed no active disease With thick mucoid respiratory secretions and with coarse breath sounds Keep HOB elevated continue Duonebs RTC , Acetylcysteine Respiratory toilet with frequent suctioning as tolerated Received full course of IV Meropenem and Vancomycin as per ID. All antibiotics discontinued at present Continue respiratory support, aspiration precautions 3. Suspected aspiration Pneumonia/ pneumonitis initially with CXR findings of new right lobe infiltrate prior to intubation and large secretions suctioned during intubation Received IV meropenem and Vanco-- d/c ID and pulmonary were consulted Blood c/s : neg so far Repeat CXR on 05/01 shows no active disease continuos to have upper airway thick mucoid secretions unable to expectorate . Continue respiratory toilet with frequent suctioning if tolerated and breathing treatments 4 .Uncontrolled DM with hyperglycemia Continue accuchecks, insulin coverage increased Levemir to 30 units HS 05/01 cont Glucotrol, prandin , Januvia Hgb A1c 16 on Glucerna NGT feeding 5. Hypertension permissive hypertension while stroke was evolving on enalapril 2.5 mg PO bid and labetalol 6. Dyslipidemia c/w Atorvastatin 40 mg PO 7. Diabetic foot calluses podiatry consulted and following Doppler US of LE - good arterial flow 8. Diarrhea-improved c dif x 3 negative improved Rectal tube in place 9. UTI urine appears cloudy with Many WBC and bacteria Patient has no fever no WBC removed Ndiaye and sent urine cx that now is growing E coli started on Ertapenem 10. DVT ppx on eliquis
[2017-05-03] MEDS: Enoxaparin 80 mg Syringe SC SCH (20:35)
[2017-05-03] MEDS: Insulin Detemir 100 Units/ml Inj SC SCH (21:19)
[2017-05-04] MEDS: Levalbuterol 0.63 MG/3 ML Inhal Soln UD INH SCH ×4 (00:53→19:23)
[2017-05-04] MEDS: Ipratropium 0.02% Inhal Soln (0.5 mg/2.5 ml) UD IH SCH ×4 (00:53→19:22)
[2017-05-04] MEDS: Proshield Plus GEL TOP PRN ×2 (04:35→16:31)
[2017-05-04 05:27] LABS: HEMOGLOBIN 11.3 g/dL (12.0-16.0); MEAN CELL VOLUME 88.9 fl (81.0-99.0); MEAN CORPUSCULAR HEMOGLOBIN 28.9 pg (27.0-31.0); MEAN CORPUSCULAR HGB CONC 32.5 g/dL (33.0-37.0); RBC 3.92 Mil/uL (3.80-5.20); RED CELL DISTRIBUTION WIDTH 14.8 % (11.5-14.5); WHITE BLOOD COUNT 9.4 K/uL (4.8-10.8)
[2017-05-04 05:41] LABS: BLOOD UREA NITROGEN 24 mg/dl (7-17); CALCIUM 8.7 mg/dL (8.4-10.2); GFR AFRICAN-AMERICAN > 60; GFR NON-AFRICAN AMERICAN > 60
[2017-05-04] MEDS: Insulin Regular 100 units/ml SC SCH ×4 (06:29→22:21)
--- NOTE | 2017-05-04 07:24 | CP.CCUPN ---
<Sharyn Hidalgo - Last Filed: 05/04/17 13:43> CCU Subjective - Physician Review Subjective (Free Text): 05/04/17 This is a 72 y/o F with PMHx of HTN, HLD, DM, CAD and bilateral hallus ulceration. Patient was initially admitted to the telemetry unit with acute cerebral vascular accident. On 04/17 patient developed change in mental status/left upper extremity weakness, CODE STROKE was called and was transferred to ICU. On 04/20 patient was transferred back to Telemetry unit. Patient was seen and examined with entertainment agent attending during ICU round this morning. Patient is awake, open eyes, following simple commands. Continue with expressive aphasia. Patient has failed swallow eval daily x 7 days, and as per Speech therapist patient is not a good candidate for video swallow eval, high risk for aspiration. Still having nonbloody diarrheas, C-diff x 3 negative last week On PT/OT yesterday. No events overnight. Denies Cp, SOB, N/V, headaches, abd pain. Critical Care Time Spent (in minutes): 35 CCU Objective - Vital Signs / Intake & Output Vital Signs (Last 4 hours): Vital Signs Temp Pulse Resp BP Pulse Ox 05/04/17 06:00 73 16 132/73 98 05/04/17 04:00 98.7 F 78 17 130/59 L 96 Intake and Output (Last 8hrs): Intake & Output 05/03/17 05/04/17 05/04/17 22:59 06:59 14:59 Intake Total 900 650 Output Total 300 300 Balance 600 350 Intake: Tube Feeding 400 400 Free Water Flush 500 250 Output: Stool 300 300 - Physical Exam Head: Positive for: Atraumatic, Normocephalic Pupils: Positive for: PERRL Conjunctiva: Positive for: Normal Mouth: Positive for: Dry Neck: Positive for: Normal Range of Motion Respiratory/Chest: Positive for: Clear to Auscultation, Rhonchi (scant rhonchi) . Negative for: Respiratory Distress, Wheezes, Decreased Breath Sounds, Rales Cardiovascular: Positive for: Regular Rate and Rhythm, Normal S1, S2. Negative for: Tachycardic Abdomen: Positive for: Normal Bowel Sounds. Negative for: Tenderness, Distention, Guarding Rectal: Positive for: Other (rectal tube in place) Upper Extremity: Positive for: Capillary Refill < 2s. Negative for: Cyanosis Lower Extremity: Negative for: Edema, CALF TENDERNESS Neurological: Positive for: Other (following simple commands, expressive aphasia ) Skin: Positive for: Warm, Dry, Pale Psychiatric: Positive for: Alert - Medications Active Medications: Active Medications Generic Name Dose Route Start Last Admin Trade Name Freq PRN Reason Stop Dose Admin Acetaminophen 650 mg 04/15/17 23:34 04/29/17 04:06 Tylenol 325mg Tab PO 650 mg Q6 PRN Administration fever > 100.4 Acetaminophen 650 mg 04/21/17 20:53 04/29/17 15:58 Tylenol 650 Mg Supp TN 650 mg Q4 PRN Administration Fever >100.4 F Acetylcysteine 2 ml 05/01/17 20:00 05/03/17 19:43 Acetylcysteine 20% INH 2 ml RBID BRIAN Administration Apixaban 5 mg 05/02/17 17:00 05/03/17 09:45 Eliquis PO 5 mg BID BRIAN Administration Protocol Aspirin 81 mg 04/19/17 13:00 05/03/17 09:45 Aspirin Chewable PO 81 mg DAILY BRIAN Administration Atorvastatin Calcium 40 mg 04/13/17 22:00 05/03/17 21:18 Lipitor PO 40 mg HS BRIAN Administration Bacitracin 1 applic 04/16/17 09:00 05/03/17 16:44 Bacitracin Oint TOP 1 applic BID BRIAN Administration Dimethicone 1 applic 04/27/17 11:37 05/04/17 04:35 Proshield Plus Skin Protectant TOP 1 applic Q8 PRN Administration Dry skin Donepezil HCl 5 mg 04/29/17 22:00 05/03/17 21:18 Aricept PO 5 mg HS BRIAN Administration Enalapril Maleate 2.5 mg 04/19/17 17:00 05/03/17 16:46 Vasotec PO 2.5 mg BID BRIAN Administration Enoxaparin Sodium 75 mg 05/03/17 21:00 05/03/17 20:35 Lovenox SC 75 mg Q12 BRIAN Administration Protocol Glipizide 10 mg 04/14/17 08:00 05/03/17 16:44 Glucotrol Xl PO 10 mg BRKDIN BRIAN Administration Guaifenesin/Dextromethorphan 1 tab 05/01/17 09:00 05/03/17 16:45 Mucinex-Dm 600-30 Mg PO 1 tab BID BRIAN Administration Ertapenem 1 gm/ Sodium 100 mls @ 100 mls/hr 05/02/17 13:30 05/03/17 09:47 Chloride IVPB 100 mls/hr DAILY BRIAN Administration Protocol Insulin Detemir 30 units 05/01/17 09:00 05/03/17 21:19 Levemir SC 30 units HS BRIAN Administration Insulin Human Regular 0 units 04/13/17 07:30 05/04/17 06:29 Humulin R SC 1 units ACHS BRIAN Administration Protocol Ipratropium Wiley 0.5 mg 04/29/17 16:00 05/04/17 00:53 Atrovent IH 0.5 mg RQ8 BRIAN Administration Labetalol HCl 100 mg 05/01/17 09:00 05/03/17 16:46 Trandate PO 100 mg BID BRIAN Administration Levalbuterol HCl 0.63 mg 04/29/17 16:00 05/04/17 00:53 Xopenex INH 0.63 mg RQ8 BRIAN Administration Pantoprazole Sodium 40 mg 04/22/17 09:00 05/03/17 09:50 Protonix Inj IVP 40 mg DAILY BRIAN Administration Repaglinide 1 mg 04/14/17 09:00 05/03/17 16:45 Prandin PO 1 mg TID BRIAN Administration Sitagliptin Phosphate 50 mg 04/14/17 09:00 05/03/17 16:45 Januvia PO 50 mg BID BRIAN Administration Valproate Sodium 250 mg 05/01/17 09:00 05/03/17 09:45 Depakene Oral Soln PO 250 mg DAILY BRIAN Administration - Patient Studies Lab Studies: Microbiology Studies 04/29/17 19:20 Blood Culture - Preliminary Blood-Venous NO GROWTH AFTER 4 DAYS 04/29/17 19:20 Blood Culture - Preliminary Blood-Venous NO GROWTH AFTER 4 DAYS 04/28/17 13:57 Blood Culture - Final Blood NO GROWTH AFTER 5 DAYS Gram Stain - Final TEST NOT PERFORMED 05/01/17 10:10 Urine Culture - Final Urine,Leslie Escherichia Coli Lab Studies 05/04/17 05/04/17 05/04/17 Range/Units 06:03 04:40 04:40 WBC 9.4 (4.8-10.8) K/uL RBC 3.92 (3.80-5.20) Mil/uL Hgb 11.3 L (12.0-16.0) g/dL Hct 34.8 (34.0-47.0) % MCV 88.9 (81.0-99.0) fl MCH 28.9 (27.0-31.0) pg MCHC 32.5 L (33.0-37.0) g/dL RDW 14.8 H (11.5-14.5) % Plt Count 332 (130-400) K/uL MPV (7.2-11.7) fl Neut % (Auto) (50.0-75.0) % Lymph % (Auto) (20.0-40.0) % [place] % (Auto) (0.0-10.0) % Eos % (Auto) (0.0-4.0) % Baso % (Auto) (0.0-2.0) % Neut # (Auto) (1.8-7.0) K/uL Lymph # (Auto) (1.0-4.3) K/uL [place] # (Auto) (0.0-0.8) K/uL Eos # (Auto) (0.0-0.7) K/uL Baso # (Auto) (0.0-0.2) K/uL Sodium 142 (132-148) mmol/l Potassium 4.4 (3.6-5.0) MMOL/L Chloride 104 (98-107) mmol/L Carbon Dioxide 30 (22-30) mmol/L Anion Gap 12 (10-20) BUN 24 H (7-17) mg/dl Creatinine 0.5 L (0.7-1.2) mg/dl Est GFR ( Amer) > 60 Est GFR (Non-Af Amer) > 60 POC Glucose (mg/dL) 173 H (65-110) mg/dL Random Glucose 176 H (65-105) mg/dL Calcium 8.7 (8.4-10.2) mg/dL 05/03/17 05/03/17 05/03/17 Range/Units 21:15 16:39 11:14 WBC (4.8-10.8) K/uL RBC (3.80-5.20) Mil/uL Hgb (12.0-16.0) g/dL Hct (34.0-47.0) % MCV (81.0-99.0) fl MCH (27.0-31.0) pg MCHC (33.0-37.0) g/dL RDW (11.5-14.5) % Plt Count (130-400) K/uL MPV (7.2-11.7) fl Neut % (Auto) (50.0-75.0) % Lymph % (Auto) (20.0-40.0) % [place] % (Auto) (0.0-10.0) % Eos % (Auto) (0.0-4.0) % Baso % (Auto) (0.0-2.0) % Neut # (Auto) (1.8-7.0) K/uL Lymph # (Auto) (1.0-4.3) K/uL [place] # (Auto) (0.0-0.8) K/uL Eos # (Auto) (0.0-0.7) K/uL Baso # (Auto) (0.0-0.2) K/uL Sodium (132-148) mmol/l Potassium (3.6-5.0) MMOL/L Chloride (98-107) mmol/L Carbon Dioxide (22-30) mmol/L Anion Gap (10-20) BUN (7-17) mg/dl Creatinine (0.7-1.2) mg/dl Est GFR ( Amer) Est GFR (Non-Af Amer) POC Glucose (mg/dL) 136 H 140 H 156 H (65-110) mg/dL Random Glucose (65-105) mg/dL Calcium (8.4-10.2) mg/dL 05/03/17 Range/Units 05:00 WBC 11.2 H (4.8-10.8) K/uL RBC 4.06 (3.80-5.20) Mil/uL Hgb 11.4 L (12.0-16.0) g/dL Hct 35.9 (34.0-47.0) % MCV 88.5 (81.0-99.0) fl MCH 28.0 (27.0-31.0) pg MCHC 31.6 L (33.0-37.0) g/dL RDW 14.4 (11.5-14.5) % Plt Count 322 (130-400) K/uL MPV 10.5 (7.2-11.7) fl Neut % (Auto) 81.4 H (50.0-75.0) % Lymph % (Auto) 11.2 L (20.0-40.0) % [place] % (Auto) 5.5 (0.0-10.0) % Eos % (Auto) 1.6 (0.0-4.0) % Baso % (Auto) 0.3 (0.0-2.0) % Neut # (Auto) 9.1 H (1.8-7.0) K/uL Lymph # (Auto) 1.3 (1.0-4.3) K/uL [place] # (Auto) 0.6 (0.0-0.8) K/uL Eos # (Auto) 0.2 (0.0-0.7) K/uL Baso # (Auto) 0.0 (0.0-0.2) K/uL Sodium (132-148) mmol/l Potassium (3.6-5.0) MMOL/L Chloride (98-107) mmol/L Carbon Dioxide (22-30) mmol/L Anion Gap (10-20) BUN (7-17) mg/dl Creatinine (0.7-1.2) mg/dl Est GFR ( Amer) Est GFR (Non-Af Amer) POC Glucose (mg/dL) (65-110) mg/dL Random Glucose (65-105) mg/dL Calcium (8.4-10.2) mg/dL Laboratory Results - last 24 hr 05/03/17 05/03/17 05/03/17 05:00 11:14 16:39 WBC 11.2 H RBC 4.06 Hgb 11.4 L Hct 35.9 MCV 88.5 MCH 28.0 MCHC 31.6 L RDW 14.4 Plt Count 322 MPV 10.5 Neut % (Auto) 81.4 H Lymph % (Auto) 11.2 L [place] % (Auto) 5.5 Eos % (Auto) 1.6 Baso % (Auto) 0.3 Neut # (Auto) 9.1 H Lymph # (Auto) 1.3 [place] # (Auto) 0.6 Eos # (Auto) 0.2 Baso # (Auto) 0.0 Sodium Potassium Chloride Carbon Dioxide Anion Gap BUN Creatinine Est GFR ( Amer) Est GFR (Non-Af Amer) POC Glucose (mg/dL) 156 H 140 H Random Glucose Calcium 05/03/17 05/04/17 05/04/17 21:15 04:40 04:40 WBC 9.4 RBC 3.92 Hgb 11.3 L Hct 34.8 MCV 88.9 MCH 28.9 MCHC 32.5 L RDW 14.8 H Plt Count 332 MPV Neut % (Auto) Lymph % (Auto) [place] % (Auto) Eos % (Auto) Baso % (Auto) Neut # (Auto) Lymph # (Auto) [place] # (Auto) Eos # (Auto) Baso # (Auto) Sodium 142 Potassium 4.4 Chloride 104 Carbon Dioxide 30 Anion Gap 12 BUN 24 H Creatinine 0.5 L Est GFR ( Amer) > 60 Est GFR (Non-Af Amer) > 60 POC Glucose (mg/dL) 136 H Random Glucose 176 H Calcium 8.7 05/04/17 06:03 WBC RBC Hgb Hct MCV MCH MCHC RDW Plt Count MPV Neut % (Auto) Lymph % (Auto) [place] % (Auto) Eos % (Auto) Baso % (Auto) Neut # (Auto) Lymph # (Auto) [place] # (Auto) Eos # (Auto) Baso # (Auto) Sodium Potassium Chloride Carbon Dioxide Anion Gap BUN Creatinine Est GFR ( Amer) Est GFR (Non-Af Amer) POC Glucose (mg/dL) 173 H Random Glucose Calcium Fingerstick Blood Sugar Results: 173 Review of Systems - Review of Systems All systems: reviewed and no additional remarkable complaints except (as per subjective) Assessment/Plan - Assessment and Plan (Free Text) Plan: Acute Ischemic Stroke -with aphasia, and LUE weakness -Patient is still failing swallow eval, and is not good candidate for video swallow eval because high risk for aspiration, as per Speech therapist -Held aspirin 81 mg today as per GI rec for possible PEG tube placement on Tuesday -Held Eliquis today as per GI rec for possible PEG tube placement On Tuesday -c/w atorvastatin 40 mg daily -c/w glycemic control -last Head CT w/o contrast on 05/02/17 reported evolving subacute right MCA territory infarct involving the right frontal subcortical white matter, [facility] and basal ganglia. No evidence of hemorrhagic transformation. -c/w PT/OT treatment -PT recommended subacute rehab -Hold Lovenox on Thr if PEG tube placement on Tuesday -resume aspirin and eliquis after PEG tube placement ( next day, Tuesday) Dysphagia -most likely 2/2 CVA -c/w aspiration precautions -Has an NG tube for feeding and meds -has failed swallow eval x 7 days -GI on consult. Possible PEG tube placement on Tuesday -Consent for next of kin( ) for PEG tube was signed yesterday after risk and benefits explained. Patient's verbalized understanding ( rest of family also aware and agreed with the plan). Consent in patient's chart. Positive urine culture -s/p leslie cath -pt is incontinent -afebrile, mild leukocytosis -Ertapenem 1 gram IV daily on 05/02/17 as per ID. Day #3 Acute Respiratory Failure -likely 2/2 aspiration Pneumonia vs HAP -resolved -Afebrile -successful extubated on 04/27/17 -c/w oxygen via NC, oxygen sat 93 % on NC at 5 LPM -on Xopenex and ipratropium neb Q8 -CXR on 05/01/17 reported as no active disease -completed antibiotics as per ID recs Diet -c/w Glucernal feeding a@ 50 ml/hr -Give free water 250 ml Q6 hours -has failed swallow eval x 7 days -GI on consult. Possible PEG tube placement on Tuesday Diarrheas -C-diff x 3 negative -ID consulted, recs appreciated Hypertension -c/w enalapril 2.5 mg BID -c/w Labetalol 100 mg PO BID( started on 04/29/17 because uncontrolled HTN0 Diabetes Mellitus type2 -c/w glycemic control -Hgb A1c 16 Diabetic foot calluses -Podiatry on consult by primary team -Podiatry recs are appreciated Prophylaxis -DVT prophylaxis : on SCDs and therapeutic lovenox for ischemic CVA as per Neuro rec. Held Eliquis as per GI for possible PEG tube on tuesday. Neurology team was made aware. -stress ulcer prophylaxis: Protonix 40 mg IV daily -pressure ulcers precautions -aspiration precautions <Cayetano Story - Last Filed: 05/04/17 17:33> CCU Subjective - Physician Review Subjective (Free Text): Attestation: Patient seen and examined at the bedside with Resident Dr. Romana Hidalgo; and I agree with her outline of plans and management documented above as discussed on AM rounds reflecting my review of all applicable clinical data, and participation in the care of the patient throughout the day in ICU; April.
[2017-05-04] MEDS: Acetylcysteine 20% Inhal Soln (4ml) INH SCH ×2 (07:38→19:22)
[2017-05-04] MEDS: Valproic Acid 250 mg/5 ml UD Cup PO SCH (08:16)
[2017-05-04] MEDS: Bacitracin OINT 15GM TOP SCH ×2 (08:16→16:31)
[2017-05-04] MEDS: GlipiZIDE 10 mg SR Tab PO SCH ×2 (08:17→16:32)
[2017-05-04] MEDS: Enoxaparin 80 mg Syringe SC SCH ×2 (08:18→20:08)
[2017-05-04] MEDS: guaiFENesin-DM 600-30 mg ER Tab PO SCH ×2 (08:19→16:32)
--- NOTE | 2017-05-04 09:58 | CP.PCM.PN ---
Subjective - Date & Time of Evaluation Date of Evaluation: 05/04/17 Time of Evaluation: 09:54 - Subjective Subjective: Ms. Black was seen and examined at the bedside in ICU. She is awake, alert, but remains with expressive aphasia. She is able to answer questions utilizing non-verbal cues such as nodding or shaking her head. She denies any headache, dizziness, nausea, or vomiting. She is able to follow simple commands such as opening her mouth, move her tongue from side to side, raising her all extremities. She remains with left upper extremity weaker than the right side. According to staff, she has episode of confusion, but easily re-directed, remains with a bilateral upper wrist restraints. She remains with an NGT for feeding and medication adm. She has a brown watery stools with a flexiseal, stool samples has been negative for any infection. She failed several attempts to re-evaluate her swallowing, she is schedule for peg tube insertion on Tuesday. There was no untoward events overnight. Objective - Vital Signs/Intake and Output Vital Signs (last 24 hours): Temp Pulse Resp BP Pulse Ox 98.9 F 87 23 147/57 L 95 05/04/17 08:00 05/04/17 08:00 05/04/17 08:00 05/04/17 08:00 05/04/17 08:00 Intake and Output: 05/04/17 05/04/17 06:59 18:59 Intake Total 1100 100 Output Total 300 Balance 800 100 - Medications Medications: Current Medications Acetaminophen (Tylenol 325mg Tab) 650 mg PO Q6 PRN PRN Reason: fever > 100.4 Last Admin: 04/29/17 04:06 Dose: 650 mg Acetaminophen (Tylenol 650 Mg Supp) 650 mg OR Q4 PRN PRN Reason: Fever >100.4 F Last Admin: 04/29/17 15:58 Dose: 650 mg Acetylcysteine (Acetylcysteine 20%) 2 ml INH RBID [facility] Last Admin: 05/04/17 07:38 Dose: 2 ml Apixaban (Eliquis) 5 mg PO BID BRIAN PRN Reason: Protocol Last Admin: 05/03/17 09:45 Dose: 5 mg Aspirin (Aspirin Chewable) 81 mg PO DAILY [facility] Last Admin: 05/03/17 09:45 Dose: 81 mg Atorvastatin Calcium (Lipitor) 40 mg PO HS [facility] Last Admin: 05/03/17 21:18 Dose: 40 mg Bacitracin (Bacitracin Oint) 1 applic TOP BID [facility] Last Admin: 05/04/17 08:16 Dose: 1 applic Dimethicone (Proshield Plus Skin Protectant) 1 applic TOP Q8 PRN PRN Reason: Dry skin Last Admin: 05/04/17 04:35 Dose: 1 applic Donepezil HCl (Aricept) 5 mg PO HS [facility] Last Admin: 05/03/17 21:18 Dose: 5 mg Enalapril Maleate (Vasotec) 2.5 mg PO BID [facility] Last Admin: 05/04/17 08:20 Dose: 2.5 mg Enoxaparin Sodium (Lovenox) 75 mg SC Q12 [facility] PRN Reason: Protocol Last Admin: 05/04/17 08:18 Dose: 75 mg Glipizide (Glucotrol Xl) 10 mg PO BRKDIN [facility] Last Admin: 05/04/17 08:17 Dose: 10 mg Guaifenesin/Dextromethorphan (Mucinex-Dm 600-30 Mg) 1 tab PO BID [facility] Last Admin: 05/04/17 08:19 Dose: 1 tab Ertapenem 1 gm/ Sodium (Chloride) 100 mls @ 100 mls/hr IVPB DAILY [facility] PRN Reason: Protocol Last Admin: 05/04/17 08:17 Dose: 100 mls/hr Insulin Detemir (Levemir) 30 units SC HS [facility] Last Admin: 05/03/17 21:19 Dose: 30 units Insulin Human Regular (Humulin R) 0 units SC ACHS [facility] PRN Reason: Protocol Last Admin: 05/04/17 06:29 Dose: 1 units Ipratropium [place] (Atrovent) 0.5 mg IH RQ8 [facility] Last Admin: 05/04/17 00:53 Dose: 0.5 mg Labetalol HCl (Trandate) 100 mg PO BID [facility] Last Admin: 05/04/17 08:20 Dose: 100 mg Levalbuterol HCl (Xopenex) 0.63 mg INH RQ8 [facility] Last Admin: 05/04/17 07:39 Dose: 0.63 mg Pantoprazole Sodium (Protonix Inj) 40 mg IVP DAILY [facility] Last Admin: 05/04/17 08:20 Dose: 40 mg Repaglinide (Prandin) 1 mg PO TID [facility] Last Admin: 05/04/17 08:19 Dose: 1 mg Sitagliptin Phosphate (Januvia) 50 mg PO BID [facility] Last Admin: 05/04/17 08:18 Dose: 50 mg Valproate Sodium (Depakene Oral Soln) 250 mg PO DAILY [facility] Last Admin: 05/04/17 08:16 Dose: 250 mg - Labs Labs: 05/04/17 04:40 05/04/17 04:40 PT 9.7 Seconds (9.8-13.1) L 04/12/17 21:15 INR 0.9 (0.9-1.2) 04/12/17 21:15 APTT 26.0 Seconds (25.6-37.1) 04/12/17 21:15 - Constitutional Appears: No Acute Distress - Head Exam Head Exam: NORMAL INSPECTION - Neurological Exam Neurological Exam: Alert, Awake Neuro motor strength exam: Left Upper Extremity: 3, Right Upper Extremity: 5, Left Lower Extremity: 4, Right Lower Extremity: 5 Additional comments: Neurological unchanged from previous examination. Assessment and Plan (1) CVA (cerebral vascular accident) Assessment & Plan: Case discussed with Dr. Lyons, continue all current medical, physical, occupational, and speech therapies. Re-start aspirin and eliquis post peg insertion. Recommend blood pressure control and possible subacute placement for discharge planning. Status: Acute
--- NOTE | 2017-05-04 13:24 | CP.PCM.PN ---
Subjective - Date & Time of Evaluation Date of Evaluation: 05/04/17 Time of Evaluation: 12:00 - Subjective Subjective: Pt has no fever more awake today able to state her name in a very soft voice follows simple commands Failed Swallow eval - on NGT feeding - plan for PEG Tuesday Objective - Vital Signs/Intake and Output Vital Signs (last 24 hours): Temp Pulse Resp BP Pulse Ox 98.2 F 74 21 120/59 L 95 05/04/17 12:00 05/04/17 12:00 05/04/17 12:00 05/04/17 12:00 05/04/17 12:00 Intake and Output: 05/04/17 05/04/17 06:59 18:59 Intake Total 1100 550 Output Total 300 Balance 800 550 - Medications Medications: Current Medications Acetaminophen (Tylenol 325mg Tab) 650 mg PO Q6 PRN PRN Reason: fever > 100.4 Last Admin: 04/29/17 04:06 Dose: 650 mg Acetaminophen (Tylenol 650 Mg Supp) 650 mg CO Q4 PRN PRN Reason: Fever >100.4 F Last Admin: 04/29/17 15:58 Dose: 650 mg Acetylcysteine (Acetylcysteine 20%) 2 ml INH RBID [facility] Last Admin: 05/04/17 07:38 Dose: 2 ml Apixaban (Eliquis) 5 mg PO BID [facility] PRN Reason: Protocol Last Admin: 05/03/17 09:45 Dose: 5 mg Aspirin (Aspirin Chewable) 81 mg PO DAILY [facility] Last Admin: 05/03/17 09:45 Dose: 81 mg Atorvastatin Calcium (Lipitor) 40 mg PO HS [facility] Last Admin: 05/03/17 21:18 Dose: 40 mg Bacitracin (Bacitracin Oint) 1 applic TOP BID [facility] Last Admin: 05/04/17 08:16 Dose: 1 applic Dimethicone (Proshield Plus Skin Protectant) 1 applic TOP Q8 PRN PRN Reason: Dry skin Last Admin: 05/04/17 04:35 Dose: 1 applic Donepezil HCl (Aricept) 5 mg PO HS [facility] Last Admin: 05/03/17 21:18 Dose: 5 mg Enalapril Maleate (Vasotec) 2.5 mg PO BID [facility] Last Admin: 05/04/17 08:20 Dose: 2.5 mg Enoxaparin Sodium (Lovenox) 75 mg SC Q12 [facility] PRN Reason: Protocol Last Admin: 05/04/17 08:18 Dose: 75 mg Glipizide (Glucotrol Xl) 10 mg PO BRKDIN [facility] Last Admin: 05/04/17 08:17 Dose: 10 mg Guaifenesin/Dextromethorphan (Mucinex-Dm 600-30 Mg) 1 tab PO BID [facility] Last Admin: 05/04/17 08:19 Dose: 1 tab Ertapenem 1 gm/ Sodium (Chloride) 100 mls @ 100 mls/hr IVPB DAILY [facility] PRN Reason: Protocol Last Admin: 05/04/17 08:17 Dose: 100 mls/hr Insulin Detemir (Levemir) 30 units SC HS [facility] Last Admin: 05/03/17 21:19 Dose: 30 units Insulin Human Regular (Humulin R) 0 units SC ACHS [facility] PRN Reason: Protocol Last Admin: 05/04/17 06:29 Dose: 1 units Ipratropium [place] (Atrovent) 0.5 mg IH RQ8 [facility] Last Admin: 05/04/17 00:53 Dose: 0.5 mg Labetalol HCl (Trandate) 100 mg PO BID [facility] Last Admin: 05/04/17 08:20 Dose: 100 mg Levalbuterol HCl (Xopenex) 0.63 mg INH RQ8 [facility] Last Admin: 05/04/17 07:39 Dose: 0.63 mg Pantoprazole Sodium (Protonix Inj) 40 mg IVP DAILY [facility] Last Admin: 05/04/17 08:20 Dose: 40 mg Repaglinide (Prandin) 1 mg PO TID [facility] Last Admin: 05/04/17 08:19 Dose: 1 mg Sitagliptin Phosphate (Januvia) 50 mg PO BID [facility] Last Admin: 05/04/17 08:18 Dose: 50 mg Valproate Sodium (Depakene Oral Soln) 250 mg PO DAILY [facility] Last Admin: 05/04/17 08:16 Dose: 250 mg - Labs Labs: 05/04/17 04:40 05/04/17 04:40 PT 9.7 Seconds (9.8-13.1) L 04/12/17 21:15 INR 0.9 (0.9-1.2) 04/12/17 21:15 APTT 26.0 Seconds (25.6-37.1) 04/12/17 21:15 - Constitutional Appears: No Acute Distress, Chronically Ill more alert today - Head Exam Head Exam: NORMAL INSPECTION, NORMOCEPHALIC - Eye Exam Eye Exam: EOMI, Normal appearance - ENT Exam ENT Exam: Mucous Membranes Dry, Normal External Ear Exam Additional comments: NGT in place - Respiratory Exam Respiratory Exam: NORMAL BREATHING PATTERN. absent: Respiratory Distress - Cardiovascular Exam Cardiovascular Exam: REGULAR RHYTHM, +S1, +S2 - GI/Abdominal Exam GI & Abdominal Exam: Soft, Normal Bowel Sounds. absent: Tenderness Additional comments: Rectal tube in place - Extremities Exam Extremities Exam: Normal Capillary Refill. absent: Pedal Edema - Neurological Exam Additional comments: Pt looks weak , opened her eyes with verbal stimuli was able to tell me in a very soft voice " Jennie" when I asked her name, no further verbal output after that follows simple commands able to move all extremities noted to move extremities - Psychiatric Exam Psychiatric exam: Flat Affect - Skin Skin Exam: Dry, Normal Color, Warm Assessment and Plan - Assessment and Plan (Free Text) Assessment: 72 y/o F PMH DM, HTN, HLD brought to the ED with acutely worsening alteration of mental status and not as verbal . She presented with left facial droop and and some expressive aphasia.CT head was neg for acute CVA or bleed. Patient glucose was elevated 563. She was admitted initially in telemetry for further stroke work up and diabetes control . Neuro consulted.She was started on ASA, Statin, plavix,lovenox , Insulin and IVF .Her BP initially was kept elevated to allow permissive hypertension. MRI head showed acute stroke in right frontal lobe white matter 2/2 While in telemetry , the patient developed worsening BAILON and some left arm weakness. Patient became confused , agitated , restless ,not following any commands. She also started to have fever. Repeat MRI of the Brain : showed acute/ subacute stroke in right mcleod radiata and centrum ovale She was then transferred to ICU for close monitoring She continued to spike fevers for > 48 hours with no obvious source of infection and normal WBC count. All work up sent including CXR, UA,urine cx, blood cx were negative for infection so fever thought to be of central origin and no antibiotics were started 2/7 While in Tele , [employer] called for stridor and respiratory distress . She developed acute hypercapnic respiratory failure was intubated and transferred to ICU. CXR showed new infiltrate, poss Asp PNA.She was started on IV antibiotics. 04/28 extubated after weaning trial and placed on NRM. placed on BIpap and treated for stridor with solumedrol IV, Duonebs and Racemic epi INH With weak cough reflex , unable to expectorate 05/01 Neurologically much improved, awake , alert follows commands , with dysarthria , coughing spells when trying to sip some water , hemodynamically stable, 05/03 : failed Swallow eval - Speech tx rec PEG 1. Progressive Acute ischemic stroke initial presentation of patient was : acute stroke to right frontal lobe that progressed to right mcleod radiata and centrum semiovale stroke Developed worsening mental status, unable to handle secretions Repeat CT head 05/02 showed Evolving subacute right MCA territory infarction involving the right frontal subcortical white matter, mcleod radiata and basal ganglia. No evidence of hemorrhagic transformation. Old lacunar infarctions in the right basal ganglia and left anterior limb of internal capsule, thalamus and basal ganglia. Pt was started on ASA and Eliquis ( now on hold as pt is for PEG placement ) Continue statin, glycemic control, BP control Will taper to d/c depakote to avoid sedation Continue aricept Continue PT / OT Failed multiple Swallow eval - GI consulted for PEG placement - discussed with Dr Marin - plan for PEG on Tuesday Will hold ASA and Eliquis till after PEG placement Started Lovenox SQ therapeutic dose while pt off Eliquis. Plan for rehab 2. Acute hypercapnic respiratory failure Most likely secondary to aspiration pneumonia and patient's inability to handle secretions due to AMS/ CVA extubated 04/28 and at present saturating well Repeat CXR 05/01 showed no active disease Keep HOB elevated continue Duonebs RTC , Acetylcysteine Respiratory toilet with frequent suctioning as tolerated Received full course of IV Meropenem and Vancomycin Continue respiratory support, aspiration precautions 3. Aspiration Pneumonia/ pneumonitis initially with CXR findings of new right lobe infiltrate prior to intubation and large secretions suctioned during intubation Completed treatment with IV Vanco and Meropenem ID and pulmonary were consulted Blood c/s : neg so far Repeat CXR on 05/01 shows no active disease 4 .Uncontrolled DM with hyperglycemia Continue accuchecks, insulin coverage cont Levemir to 30 units HS cont Glucotrol, prandin , Januvia Hgb A1c 16 on Glucerna NGT feeding 5. Hypertension permissive hypertension while stroke was evolving cont enalapril 2.5 mg PO bid and labetalol 100mg bid 6. Dyslipidemia c/w Atorvastatin 40 mg PO 7. Diabetic foot calluses podiatry consulted and following Doppler US of LE - good arterial flow 8. Diarrhea-improved c dif x 3 negative improved Rectal tube in place 9. UTI urine appears cloudy with Many WBC and bacteria Patient has no fever no WBC Ndiaye d/c Urine c/s: E coli started on Ertapenem 10. DVT ppx on Lovenox
--- NOTE | 2017-05-04 17:29 | CP.PCM.CON ---
History of Present Illness - History of Present Illness History of Present Illness: 72 yo female with CVA on 04/17/2017. Patient after the CVA has been unable to swallow. Is being seen by speech therapist and failed swallow evaluation for 7 days. No chest pain, SOB, nausea, and vomiting. Has tolerated tube feedings. Review of Systems - Review of Systems Systems not reviewed;Unavailable: Other (expressive aphasia) Past Patient History - Past Medical History & Family History Past Medical History?: Yes - Past Social History Smoking Status: Never Smoked Alcohol: None Drugs: Denies Home Situation {Lives}: With Family - CARDIAC Hx Cardiac Disorders: Yes Hx Hypercholesterolemia: Yes Hx Hypertension: Yes - PULMONARY Hx Respiratory Disorders: No - NEUROLOGICAL Hx Neurological Disorder: No - HEENT Hx HEENT Problems: No - RENAL Hx Chronic Kidney Disease: No - ENDOCRINE/METABOLIC Hx Diabetes Mellitus Type 2: Yes - HEMATOLOGICAL/ONCOLOGICAL Hx Blood Disorders: No - INTEGUMENTARY Hx Dermatological Problems: Yes Other/Comment: ulcers noted on bilateral great toes - MUSCULOSKELETAL/RHEUMATOLOGICAL Hx Musculoskeletal Disorders: No Hx Falls: No Other/Comment: let foot ulcer - GASTROINTESTINAL Hx Gastrointestinal Disorders: Yes Hx Hemorrhoids: Yes - GENITOURINARY/GYNECOLOGICAL Hx Genitourinary Disorders: No - PSYCHIATRIC Hx Psychophysiologic Disorder: No Hx Substance Use: No - SURGICAL HISTORY Hx Surgeries: No - ANESTHESIA Hx Anesthesia: Yes Hx Anesthesia Reactions: No Hx Malignant Hyperthermia: No Has any member of the family had a problem w/ anesthesia?: No Meds Home Medications: Home Medication List Medication Instructions Recorded Confirmed Type Aspirin [Aspirin Chewable] 81 mg PO DAILY chew 04/15/17 Rx Atorvastatin [Lipitor] 40 mg PO HS tab 04/15/17 Rx Clopidogrel [Plavix] 75 mg PO DAILY tab 04/15/17 Rx Clopidogrel [Plavix] 75 mg PO DAILY #30 tab 04/15/17 Rx Enalapril Maleate [Vasotec] 2.5 mg PO BID tab 04/15/17 Rx Enoxaparin [Lovenox] 40 mg SC DAILY syr 04/15/17 Rx Insulin Detemir [Levemir] 15 units SC HS vial 04/15/17 Rx Insulin Detemir [Levemir] 25 units SC HS #5 vial 04/15/17 Rx Insulin Human Regular [HumuLIN R] 0 units SC ACHS ml 04/15/17 Rx SITagliptin [Januvia] 50 mg PO BID tab 04/15/17 Rx Allergies/Adverse Reactions: Allergies Allergy/AdvReac Type Severity Reaction Status Date / Time No Known Allergies Allergy Verified 04/12/17 20:08 - Medications Medications: Current Medications Acetaminophen (Tylenol 325mg Tab) 650 mg PO Q6 PRN PRN Reason: fever > 100.4 Last Admin: 04/29/17 04:06 Dose: 650 mg Acetaminophen (Tylenol 650 Mg Supp) 650 mg HI Q4 PRN PRN Reason: Fever >100.4 F Last Admin: 04/29/17 15:58 Dose: 650 mg Acetylcysteine (Acetylcysteine 20%) 2 ml INH RBID [facility] Last Admin: 05/04/17 07:38 Dose: 2 ml Apixaban (Eliquis) 5 mg PO BID [facility] PRN Reason: Protocol Last Admin: 05/03/17 09:45 Dose: 5 mg Aspirin (Aspirin Chewable) 81 mg PO DAILY [facility] Last Admin: 05/03/17 09:45 Dose: 81 mg Atorvastatin Calcium (Lipitor) 40 mg PO HS [facility] Last Admin: 05/03/17 21:18 Dose: 40 mg Bacitracin (Bacitracin Oint) 1 applic TOP BID [facility] Last Admin: 05/04/17 16:31 Dose: 1 applic Dimethicone (Proshield Plus Skin Protectant) 1 applic TOP Q8 PRN PRN Reason: Dry skin Last Admin: 05/04/17 16:31 Dose: 1 applic Donepezil HCl (Aricept) 5 mg PO HS [facility] Last Admin: 05/03/17 21:18 Dose: 5 mg Enalapril Maleate (Vasotec) 2.5 mg PO BID [facility] Last Admin: 05/04/17 16:33 Dose: 2.5 mg Enoxaparin Sodium (Lovenox) 75 mg SC Q12 [facility] PRN Reason: Protocol Last Admin: 05/04/17 08:18 Dose: 75 mg Glipizide (Glucotrol Xl) 10 mg PO BRKDIN [facility] Last Admin: 05/04/17 16:32 Dose: 10 mg Guaifenesin/Dextromethorphan (Mucinex-Dm 600-30 Mg) 1 tab PO BID [facility] Last Admin: 05/04/17 16:32 Dose: 1 tab Ertapenem 1 gm/ Sodium (Chloride) 100 mls @ 100 mls/hr IVPB DAILY [facility] PRN Reason: Protocol Last Admin: 05/04/17 08:17 Dose: 100 mls/hr Insulin Detemir (Levemir) 30 units SC HS [facility] Last Admin: 05/03/17 21:19 Dose: 30 units Insulin Human Regular (Humulin R) 0 units SC ACHS [facility] PRN Reason: Protocol Last Admin: 05/04/17 16:42 Dose: Not Given Ipratropium [place] (Atrovent) 0.5 mg IH RBID [facility] Labetalol HCl (Trandate) 100 mg PO BID [facility] Last Admin: 05/04/17 16:33 Dose: 100 mg Levalbuterol HCl (Xopenex) 0.63 mg INH RBID [facility] Pantoprazole Sodium (Protonix Inj) 40 mg IVP DAILY [facility] Last Admin: 05/04/17 08:20 Dose: 40 mg Repaglinide (Prandin) 1 mg PO TID [facility] Last Admin: 05/04/17 16:33 Dose: 1 mg Sitagliptin Phosphate (Januvia) 50 mg PO BID [facility] Last Admin: 05/04/17 16:32 Dose: 50 mg Valproate Sodium (Depakene Oral Soln) 250 mg PO DAILY [facility] Last Admin: 05/04/17 08:16 Dose: 250 mg Physical Exam - Constitutional Appears: No Acute Distress - Eye Exam Eye Exam: Normal appearance - ENT Exam ENT Exam: Mucous Membranes Moist - Neck Exam Neck exam: Positive for: Normal Inspection - Respiratory Exam Respiratory Exam: Clear to Auscultation Bilateral - Cardiovascular Exam Cardiovascular Exam: REGULAR RHYTHM, +S1, +S2 - GI/Abdominal Exam GI & Abdominal Exam: Normal Bowel Sounds, Soft. absent: Tenderness Results - Vital Signs Recent Vital Signs: Last Vital Signs Temp 97.4 F L 05/04/17 16:00 Pulse 87 05/04/17 16:00 Resp 23 05/04/17 16:00 BP 145/67 05/04/17 16:00 Pulse Ox 95 05/04/17 12:00 - Labs Result Diagrams: 05/04/17 04:40 05/04/17 04:40 Labs: Laboratory Results - last 24 hr 05/03/17 05/04/17 05/04/17 21:15 04:40 04:40 WBC 9.4 RBC 3.92 Hgb 11.3 L Hct 34.8 MCV 88.9 MCH 28.9 MCHC 32.5 L RDW 14.8 H Plt Count 332 Sodium 142 Potassium 4.4 Chloride 104 Carbon Dioxide 30 Anion Gap 12 BUN 24 H Creatinine 0.5 L Est GFR ( Amer) > 60 Est GFR (Non-Af Amer) > 60 POC Glucose (mg/dL) 136 H Random Glucose 176 H Calcium 8.7 05/04/17 05/04/17 05/04/17 06:03 11:16 16:38 WBC RBC Hgb Hct MCV MCH MCHC RDW Plt Count Sodium Potassium Chloride Carbon Dioxide Anion Gap BUN Creatinine Est GFR ( Amer) Est GFR (Non-Af Amer) POC Glucose (mg/dL) 173 H 148 H 130 H Random Glucose Calcium Assessment & Plan (1) Dysphagia Assessment and Plan: 72 yo female with past CVA and unable to swallow . Earlier in the month had aspiration pneumonia which has since cleared. Will do PEG Tuesday. Anticoagulants stopped except Lovenox which we will hold 24 hours before procedure. Status: Acute
[2017-05-04] MEDS: Insulin Detemir 100 Units/ml Inj SC SCH (22:21)
[2017-05-05 05:35] LABS: HEMOGLOBIN 11.4 g/dL (12.0-16.0); MEAN CELL VOLUME 89.5 fl (81.0-99.0); MEAN CORPUSCULAR HEMOGLOBIN 28.4 pg (27.0-31.0); MEAN CORPUSCULAR HGB CONC 31.7 g/dL (33.0-37.0); RBC 4.03 Mil/uL (3.80-5.20); RED CELL DISTRIBUTION WIDTH 14.5 % (11.5-14.5); WHITE BLOOD COUNT 11.6 K/uL (4.8-10.8)
[2017-05-05 05:50] LABS: BLOOD UREA NITROGEN 22 mg/dl (7-17); CALCIUM 8.7 mg/dL (8.4-10.2); GFR AFRICAN-AMERICAN > 60; GFR NON-AFRICAN AMERICAN > 60
[2017-05-05 06:05] LABS: PARTIAL THROMBOPLASTIN TIME 28.4 Seconds (25.6-37.1); PROTHROMBIN TIME 11.4 Seconds (9.8-13.1)
[2017-05-05] MEDS: Insulin Regular 100 units/ml SC SCH ×4 (06:55→22:00)
[2017-05-05] MEDS: Levalbuterol 0.63 MG/3 ML Inhal Soln UD INH SCH ×2 (07:26→19:43)
[2017-05-05] MEDS: Ipratropium 0.02% Inhal Soln (0.5 mg/2.5 ml) UD IH SCH ×2 (07:26→19:43)
[2017-05-05] MEDS: Acetylcysteine 20% Inhal Soln (4ml) INH SCH ×2 (07:26→19:43)
--- NOTE | 2017-05-05 09:20 | CP.PCM.PN ---
Subjective - Date & Time of Evaluation Date of Evaluation: 05/05/17 Time of Evaluation: 08:30 - Subjective Subjective: Patient seen and examined bedside. Appears more awake today , moving all 4 extremities with some LUE weakness left facial droop,simple following commands. Able to speak few simple sentences. NGT in place with Feeding Hemodynamically stable, afebrile , no acute issues overnight BP 133/61 HR 83 saturating 99 % on O2 vi anC WBC 11 k hgb 11 Urine cx positive for E. Coli For peg placement in AM rectal tube in place with diarrhea Objective - Vital Signs/Intake and Output Vital Signs (last 24 hours): Temp Pulse Resp BP Pulse Ox 98.7 F 83 20 133/61 99 05/05/17 08:00 05/05/17 08:00 05/05/17 08:00 05/05/17 08:00 05/05/17 08:00 Intake and Output: 05/05/17 05/05/17 06:59 18:59 Intake Total 1060 Output Total 300 Balance 760 - Medications Medications: Current Medications Acetaminophen (Tylenol 325mg Tab) 650 mg PO Q6 PRN PRN Reason: fever > 100.4 Last Admin: 04/29/17 04:06 Dose: 650 mg Acetaminophen (Tylenol 650 Mg Supp) 650 mg NE Q4 PRN PRN Reason: Fever >100.4 F Last Admin: 04/29/17 15:58 Dose: 650 mg Acetylcysteine (Acetylcysteine 20%) 2 ml INH RBID [facility] Last Admin: 05/05/17 07:26 Dose: 2 ml Apixaban (Eliquis) 5 mg PO BID [facility] PRN Reason: Protocol Last Admin: 05/03/17 09:45 Dose: 5 mg Aspirin (Aspirin Chewable) 81 mg PO DAILY [facility] Last Admin: 05/03/17 09:45 Dose: 81 mg Atorvastatin Calcium (Lipitor) 40 mg PO HS [facility] Last Admin: 05/04/17 22:20 Dose: 40 mg Bacitracin (Bacitracin Oint) 1 applic TOP BID [facility] Last Admin: 05/04/17 16:31 Dose: 1 applic Dimethicone (Proshield Plus Skin Protectant) 1 applic TOP Q8 PRN PRN Reason: Dry skin Last Admin: 05/04/17 16:31 Dose: 1 applic Donepezil HCl (Aricept) 5 mg PO [facility] Last Admin: 02/21/18 22:22 Dose: 5 mg Enalapril Maleate (Vasotec) 2.5 mg PO BID [facility] Last Admin: 05/04/17 16:33 Dose: 2.5 mg Enoxaparin Sodium (Lovenox) 75 mg SC Q12 [facility] PRN Reason: Protocol Last Admin: 05/04/17 20:08 Dose: 75 mg Glipizide (Glucotrol Xl) 10 mg PO [facility]KDIN [facility] Last Admin: 05/04/17 16:32 Dose: 10 mg Guaifenesin/Dextromethorphan (Mucinex-Dm 600-30 Mg) 1 tab PO BID [facility] Last Admin: 05/04/17 16:32 Dose: 1 tab Ertapenem 1 gm/ Sodium (Chloride) 100 mls @ 100 mls/hr IVPB DAILY [facility] PRN Reason: Protocol Last Admin: 05/04/17 08:17 Dose: 100 mls/hr Insulin Detemir (Levemir) 30 units SC HS [facility] Last Admin: 05/04/17 22:21 Dose: 30 units Insulin Human Regular (Humulin R) 0 units SC ACHS [facility] PRN Reason: Protocol Last Admin: 05/05/17 06:55 Dose: 3 units Ipratropium [place] (Atrovent) 0.5 mg IH RBID [facility] Last Admin: 05/05/17 07:26 Dose: 0.5 mg Labetalol HCl (Trandate) 100 mg PO BID [facility] Last Admin: 05/04/17 16:33 Dose: 100 mg Levalbuterol HCl (Xopenex) 0.63 mg INH RBID [facility] Last Admin: 05/05/17 07:26 Dose: 0.63 mg Pantoprazole Sodium (Protonix Inj) 40 mg IVP DAILY [facility] Last Admin: 05/04/17 08:20 Dose: 40 mg Repaglinide (Prandin) 1 mg PO TID [facility] Last Admin: 05/04/17 16:33 Dose: 1 mg Sitagliptin Phosphate (Januvia) 50 mg PO BID [facility] Last Admin: 05/04/17 16:32 Dose: 50 mg Valproate Sodium (Depakene Oral Soln) 250 mg PO DAILY [facility] Last Admin: 05/04/17 08:16 Dose: 250 mg - Labs Labs: 05/05/17 04:50 05/05/17 04:50 PT 11.4 Seconds (9.8-13.1) 05/05/17 04:50 INR 1.0 (0.9-1.2) 05/05/17 04:50 APTT 28.4 Seconds (25.6-37.1) 05/05/17 04:50 - Constitutional Appears: Non-toxic, No Acute Distress, Chronically Ill - Head Exam Head Exam: ATRAUMATIC, NORMOCEPHALIC - Eye Exam Eye Exam: EOMI, PERRL Pupil Exam: NORMAL ACCOMODATION - ENT Exam ENT Exam: Mucous Membranes Dry Additional comments: NGT in place - Respiratory Exam Respiratory Exam: absent: Respiratory Distress Additional comments: coarse breath sounds bilateral - Cardiovascular Exam Cardiovascular Exam: REGULAR RHYTHM, RRR, +S1, +S2. absent: JVD - GI/Abdominal Exam GI & Abdominal Exam: Soft, Normal Bowel Sounds. absent: Distended, Guarding, Tenderness, Rebound - Rectal Exam Rectal Exam: Deferred - Extremities Exam Extremities Exam: Normal Capillary Refill, Normal Inspection. absent: Calf Tenderness, Pedal Edema - Neurological Exam Neurological Exam: Alert, Awake Neuro motor strength exam: Left Upper Extremity: 4, Right Upper Extremity: 5, Left Lower Extremity: 5, Right Lower Extremity: 5 Additional comments: left facial droop dysarthria aphasia? - Psychiatric Exam Psychiatric exam: Flat Affect - Skin Skin Exam: Dry, Warm Assessment and Plan - Assessment and Plan (Free Text) Assessment: 72 y/o F PMH DM, HTN, HLD brought to the ED with acutely worsening alteration of mental status and not as verbal . She presented with left facial droop and and some expressive aphasia.CT head was neg for acute CVA or bleed. Patient glucose was elevated 563. She was admitted initially in telemetry for further stroke work up and diabetes control . Neuro consulted.She was started on ASA, Statin, plavix,lovenox , Insulin and IVF .Her BP initially was kept elevated to allow permissive hypertension. MRI head showed acute stroke in right frontal lobe white matter 2/2 While in telemetry , the patient developed worsening BAILON and some left arm weakness. Patient became confused , agitated , restless ,not following any commands. She also started to have fever. Repeat MRI of the Brain : showed acute/ subacute stroke in right mcleod radiata and centrum ovale She was then transferred to ICU for close monitoring She continued to spike fevers for > 48 hours with no obvious source of infection and normal WBC count. All work up sent including CXR, UA,urine cx, blood cx were negative for infection so fever thought to be of central origin and no antibiotics were started at that time 04/20 While in Tele , called for stridor and respiratory distress . She developed acute hypercapnic respiratory failure was intubated and transferred to ICU. CXR showed new infiltrate, poss Asp PNA.She was started on IV antibiotics.Extubated 04/28 Neurologically much improved, awake , alert follows commands , with dysarthria , hemodynamically stable.failed multiple swallow eval . For peg placement in AM 1. Progressive Acute ischemic stroke initial presentation of patient was : acute stroke to right frontal lobe that progressed to right mcleod radiata and centrum semiovale stroke Developed worsening mental status, unable to handle secretions Repeat CT head 05/02 showed Evolving subacute right MCA territory infarction involving the right frontal subcortical white matter, mcleod radiata and basal ganglia. No evidence of hemorrhagic transformation. Old lacunar infarctions in the right basal ganglia and left anterior limb of internal capsule, thalamus and basal ganglia. Pt was started on ASA and Eliquis ( now on hold as pt is for PEG placement in AM ) Continue statin, glycemic control, BP control Will taper to d/c depakote to avoid sedation Continue aricept Continue PT / OT Failed multiple Swallow eval - GI consulted for PEG placement - discussed with Dr Marin - plan for PEG in AM ASA and Eliquis ON hold till after PEG placement, neuro is aware Started Lovenox SQ therapeutic dose while pt off Eliquis ( will hold 24 hour before procedure as per GI recommendations ) Plan for rehab 2. Acute hypercapnic respiratory failure Most likely secondary to aspiration pneumonia and patient's inability to handle secretions due to AMS/ CVA extubated 04/28 and at present saturating well Repeat CXR 05/01 showed no active disease Keep HOB elevated, aspiration precautions continue Duonebs RTC , Acetylcysteine Respiratory toilet with frequent suctioning as tolerated Received full course of IV Meropenem and Vancomycin Continue respiratory support, aspiration precautions 3. Aspiration Pneumonia/ pneumonitis initially with CXR findings of new right lobe infiltrate prior to intubation and large secretions suctioned during intubation Completed treatment with IV Vanco and Meropenem ID and pulmonary were consulted Blood c/s : neg so far Repeat CXR on 05/01 shows no active disease 4 .Uncontrolled DM with hyperglycemia Continue accuchecks, insulin coverage cont Levemir to 30 units HS cont Glucotrol, prandin , Januvia Hgb A1c 16 on Glucerna NGT feeding 5. Hypertension permissive hypertension while stroke was evolving cont enalapril 2.5 mg PO bid and labetalol 100mg bid 6. Dyslipidemia c/w Atorvastatin 40 mg PO 7. Diabetic foot calluses podiatry consulted and following Doppler US of LE - good arterial flow 8. Diarrhea- c dif x 3 negative Rectal tube in place on Glucerna 9. UTI urine culture positive foe E. Coli Started on ertapenem # 4 as per ID. Will continue 5-7 days as per ID recommendations Ndiaye discontinued 10. DVT ppx on Lovenox ( hold for peg placement )
--- NOTE | 2017-05-05 09:58 | CP.PCM.PN ---
Subjective - Date & Time of Evaluation Date of Evaluation: 05/05/17 Time of Evaluation: 09:54 - Subjective Subjective: Ms. Black was seen and examined at the bedside in ICU. She is alert, remains non verbal with expressive aphasia. She is able to answer questions utilizing non-verbal cues such as nodding or shaking her head. She is able to follow simple commands such as opening her mouth, raising her bilateral upper and lower extremities with left upper extremity weaker than the right. She remains with NGT for feeding and medication administration. She is schedule for peg placement in am. There was no untoward events overnight. Objective - Vital Signs/Intake and Output Vital Signs (last 24 hours): Temp Pulse Resp BP Pulse Ox 98.7 F 83 20 133/61 99 05/05/17 08:00 05/05/17 08:00 05/05/17 08:00 05/05/17 08:00 05/05/17 08:00 Intake and Output: 05/05/17 05/05/17 06:59 18:59 Intake Total 1060 Output Total 300 Balance 760 - Medications Medications: Current Medications Acetaminophen (Tylenol 325mg Tab) 650 mg PO Q6 PRN PRN Reason: fever > 100.4 Last Admin: 04/29/17 04:06 Dose: 650 mg Acetaminophen (Tylenol 650 Mg Supp) 650 mg [place] Q4 PRN PRN Reason: Fever >100.4 F Last Admin: 04/29/17 15:58 Dose: 650 mg Acetylcysteine (Acetylcysteine 20%) 2 ml INH RBID [facility] Last Admin: 05/05/17 07:26 Dose: 2 ml Apixaban (Eliquis) 5 mg PO BID [facility] PRN Reason: Protocol Last Admin: 05/03/17 09:45 Dose: 5 mg Aspirin (Aspirin Chewable) 81 mg PO DAILY [facility] Last Admin: 05/03/17 09:45 Dose: 81 mg Atorvastatin Calcium (Lipitor) 40 mg PO HS [facility] Last Admin: 05/04/17 22:20 Dose: 40 mg Bacitracin (Bacitracin Oint) 1 applic TOP BID [facility] Last Admin: 05/04/17 16:31 Dose: 1 applic Dimethicone (Proshield Plus Skin Protectant) 1 applic TOP Q8 PRN PRN Reason: Dry skin Last Admin: 05/04/17 16:31 Dose: 1 applic Donepezil HCl (Aricept) 5 mg PO HS [facility] Last Admin: 05/04/17 22:22 Dose: 5 mg Enalapril Maleate (Vasotec) 2.5 mg PO BID [facility] Last Admin: 05/04/17 16:33 Dose: 2.5 mg Enoxaparin Sodium (Lovenox) 75 mg SC Q12 [facility] PRN Reason: Protocol Last Admin: 05/04/17 20:08 Dose: 75 mg Glipizide (Glucotrol Xl) 10 mg PO BRKDIN [facility] Last Admin: 05/04/17 16:32 Dose: 10 mg Guaifenesin/Dextromethorphan (Mucinex-Dm 600-30 Mg) 1 tab PO BID [facility] Last Admin: 05/04/17 16:32 Dose: 1 tab Ertapenem 1 gm/ Sodium (Chloride) 100 mls @ 100 mls/hr IVPB DAILY [facility] PRN Reason: Protocol Last Admin: 05/04/17 08:17 Dose: 100 mls/hr Insulin Detemir (Levemir) 30 units SC HS [facility] Last Admin: 05/04/17 22:21 Dose: 30 units Insulin Human Regular (Humulin R) 0 units SC ACHS [facility] PRN Reason: Protocol Last Admin: 05/05/17 06:55 Dose: 3 units Ipratropium [place] (Atrovent) 0.5 mg IH RBID [facility] Last Admin: 05/05/17 07:26 Dose: 0.5 mg Labetalol HCl (Trandate) 100 mg PO BID [facility] Last Admin: 05/04/17 16:33 Dose: 100 mg Levalbuterol HCl (Xopenex) 0.63 mg INH RBID [facility] Last Admin: 05/05/17 07:26 Dose: 0.63 mg Pantoprazole Sodium (Protonix Inj) 40 mg IVP DAILY [facility] Last Admin: 05/04/17 08:20 Dose: 40 mg Repaglinide (Prandin) 1 mg PO TID [facility] Last Admin: 05/04/17 16:33 Dose: 1 mg Sitagliptin Phosphate (Januvia) 50 mg PO BID [facility] Last Admin: 05/04/17 16:32 Dose: 50 mg Valproate Sodium (Depakene Oral Soln) 250 mg PO DAILY [facility] Last Admin: 05/04/17 08:16 Dose: 250 mg - Labs Labs: 05/05/17 04:50 05/05/17 04:50 PT 11.4 Seconds (9.8-13.1) 05/05/17 04:50 INR 1.0 (0.9-1.2) 05/05/17 04:50 APTT 28.4 Seconds (25.6-37.1) 05/05/17 04:50 - Constitutional Appears: No Acute Distress - Head Exam Head Exam: NORMAL INSPECTION - Neurological Exam Neurological Exam: Alert, Awake Neuro motor strength exam: Left Upper Extremity: 3, Right Upper Extremity: 4, Left Lower Extremity: 4, Right Lower Extremity: 4 Additional comments: Neurological unchanged from previous examination. Assessment and Plan (1) CVA (cerebral vascular accident) Assessment & Plan: Case discussed with Dr. Lyons, continue all current medical, physical, occupational, and speech therapies. Recommend to resume aspirin and eliquis post peg placement juan alberto. Status: Acute
[2017-05-05] MEDS: Valproic Acid 250 mg/5 ml UD Cup PO SCH (10:02)
[2017-05-05] MEDS: Enoxaparin 80 mg Syringe SC SCH (10:04)
[2017-05-05] MEDS: GlipiZIDE 10 mg SR Tab PO SCH ×2 (10:04→17:47)
[2017-05-05] MEDS: guaiFENesin-DM 600-30 mg ER Tab PO SCH ×2 (10:05→17:47)
[2017-05-05] MEDS: Bacitracin OINT 15GM TOP SCH ×2 (10:08→17:50)
--- NOTE | 2017-05-05 10:12 | CP.CCUPN ---
<Sharyn Hidalgo - Last Filed: 05/05/17 10:48> CCU Subjective - Physician Review Subjective (Free Text): 05/05/17 This is a 72 y/o F with PMHx of HTN, HLD, DM, CAD and bilateral hallus ulceration. Patient was initially admitted to the telemetry unit with acute cerebral vascular accident. On 04/17 patient developed change in mental status/left upper extremity weakness, CODE STROKE was called and was transferred to ICU. On 04/20 patient was transferred back to Telemetry unit. Patient was seen and examined with staff analyst attending during ICU round this morning. Alert, awake, c/w following simple commands. Moving both lower extremities, and right upper extremity. Improved movement of left upper extremity. Awaiting for PEG tube placement by GI, Dr. Marin, tomorrow, and possible transfer to subacute rehab. On day #4 of Ertapenem as per ID for pansensitive E-Coli in urine culture. No events overnight. Still having nonbloody diarrheas. C-diff tested and was negative x 3. Critical Care Time Spent (in minutes): 35 CCU Objective - Vital Signs / Intake & Output Vital Signs (Last 4 hours): Vital Signs Temp Pulse Resp BP Pulse Ox 05/05/17 08:00 98.7 F 83 20 133/61 99 Intake and Output (Last 8hrs): Intake & Output 05/04/17 05/05/17 05/05/17 22:59 06:59 14:59 Intake Total 860 650 Output Total 350 300 Balance 510 350 Intake: IV 10 Tube Feeding 350 400 Free Water Flush 500 250 Output: Gastric Amount 0 Right Nares 0 Stool 350 300 - Physical Exam Head: Positive for: Atraumatic, Normocephalic Pupils: Positive for: PERRL Conjunctiva: Positive for: Normal Mouth: Positive for: Dry Neck: Positive for: Normal Range of Motion Respiratory/Chest: Positive for: Clear to Auscultation, Rhonchi (scant rhonchi) . Negative for: Respiratory Distress, Wheezes, Decreased Breath Sounds, Rales Cardiovascular: Positive for: Regular Rate and Rhythm, Normal S1, S2. Negative for: Tachycardic Abdomen: Positive for: Normal Bowel Sounds. Negative for: Tenderness, Distention, Guarding Rectal: Positive for: Other (rectal tube in place) Upper Extremity: Positive for: Capillary Refill < 2s. Negative for: Cyanosis Lower Extremity: Positive for: Capillary Refill < 2 s. Negative for: Edema, CALF TENDERNESS Neurological: Positive for: Other (following simple commands, expressive aphasia ) Skin: Positive for: Warm, Dry, Pale Psychiatric: Positive for: Alert - Medications Active Medications: Active Medications Generic Name Dose Route Start Last Admin Trade Name Freq PRN Reason Stop Dose Admin Acetaminophen 650 mg 04/15/17 23:34 04/29/17 04:06 Tylenol 325mg Tab PO 650 mg Q6 PRN Administration fever > 100.4 Acetaminophen 650 mg 04/21/17 20:53 04/29/17 15:58 Tylenol 650 Mg Supp MD 650 mg Q4 PRN Administration Fever >100.4 F Acetylcysteine 2 ml 05/01/17 20:00 05/05/17 07:26 Acetylcysteine 20% INH 2 ml RBID BRIAN Administration Apixaban 5 mg 05/02/17 17:00 05/03/17 09:45 Eliquis PO 5 mg BID BRIAN Administration Protocol Aspirin 81 mg 04/19/17 13:00 05/03/17 09:45 Aspirin Chewable PO 81 mg DAILY BRIAN Administration Atorvastatin Calcium 40 mg 04/13/17 22:00 05/04/17 22:20 Lipitor PO 40 mg HS BRIAN Administration Bacitracin 1 applic 04/16/17 09:00 05/05/17 10:08 Bacitracin Oint TOP 1 applic BID BRIAN Administration Dimethicone 1 applic 04/27/17 11:37 05/04/17 16:31 Proshield Plus Skin Protectant TOP 1 applic Q8 PRN Administration Dry skin Donepezil HCl 5 mg 04/29/17 22:00 05/04/17 22:22 Aricept PO 5 mg HS BRIAN Administration Enalapril Maleate 2.5 mg 04/19/17 17:00 05/05/17 10:05 Vasotec PO 2.5 mg BID BRIAN Administration Enoxaparin Sodium 75 mg 05/03/17 21:00 05/05/17 10:04 Lovenox SC 75 mg Q12 BRIAN Administration Protocol Glipizide 10 mg 04/14/17 08:00 05/05/17 10:04 Glucotrol Xl PO 10 mg BRKDIN BRIAN Administration Guaifenesin/Dextromethorphan 1 tab 05/01/17 09:00 05/05/17 10:05 Mucinex-Dm 600-30 Mg PO 1 tab BID BRIAN Administration Ertapenem 1 gm/ Sodium 100 mls @ 100 mls/hr 05/02/17 13:30 05/05/17 10:06 Chloride IVPB 100 mls/hr DAILY BRIAN Administration Protocol Insulin Detemir 30 units 05/01/17 09:00 05/04/17 22:21 Levemir SC 30 units HS BRIAN Administration Insulin Human Regular 0 units 04/13/17 07:30 05/05/17 06:55 Humulin R SC 3 units ACHS BRIAN Administration Protocol Ipratropium [place] 0.5 mg 05/04/17 17:00 05/05/17 07:26 Atrovent IH 0.5 mg RBID BRIAN Administration Labetalol HCl 100 mg 05/01/17 09:00 05/05/17 10:05 Trandate PO 100 mg BID BRIAN Administration Levalbuterol HCl 0.63 mg 05/04/17 17:00 05/05/17 07:26 Xopenex INH 0.63 mg RBID BRIAN Administration Pantoprazole Sodium 40 mg 04/22/17 09:00 05/05/17 10:06 Protonix Inj IVP 40 mg DAILY BRIAN Administration Repaglinide 1 mg 04/14/17 09:00 05/05/17 10:07 Prandin PO 1 mg TID BRIAN Administration Sitagliptin Phosphate 50 mg 04/14/17 09:00 05/05/17 10:04 Januvia PO 50 mg BID BRIAN Administration Valproate Sodium 250 mg 05/01/17 09:00 05/05/17 10:02 Depakene Oral Soln PO 250 mg DAILY BRIAN Administration - Patient Studies Lab Studies: Microbiology Studies 04/29/17 19:20 Blood Culture - Final Blood-Venous NO GROWTH AFTER 5 DAYS Gram Stain - Final TEST NOT PERFORMED 04/29/17 19:20 Blood Culture - Final Blood-Venous NO GROWTH AFTER 5 DAYS Gram Stain - Final TEST NOT PERFORMED Lab Studies 05/05/17 05/05/17 05/05/17 Range/Units 06:35 04:50 04:50 WBC (4.8-10.8) K/uL RBC (3.80-5.20) Mil/uL Hgb (12.0-16.0) g/dL Hct (34.0-47.0) % MCV (81.0-99.0) fl MCH (27.0-31.0) pg MCHC (33.0-37.0) g/dL RDW (11.5-14.5) % Plt Count (130-400) K/uL PT 11.4 (9.8-13.1) Seconds INR 1.0 (0.9-1.2) APTT 28.4 (25.6-37.1) Seconds Sodium 137 (132-148) mmol/l Potassium 4.6 (3.6-5.0) MMOL/L Chloride 101 (98-107) mmol/L Carbon Dioxide 29 (22-30) mmol/L Anion Gap 12 (10-20) BUN 22 H (7-17) mg/dl Creatinine 0.5 L (0.7-1.2) mg/dl Est GFR ( Amer) > 60 Est GFR (Non-Af Amer) > 60 POC Glucose (mg/dL) 252 H (65-110) mg/dL Random Glucose 229 H (65-105) mg/dL Calcium 8.7 (8.4-10.2) mg/dL 05/05/17 05/04/17 05/04/17 Range/Units 04:50 21:26 16:38 WBC 11.6 H (4.8-10.8) K/uL RBC 4.03 (3.80-5.20) Mil/uL Hgb 11.4 L (12.0-16.0) g/dL Hct 36.0 (34.0-47.0) % MCV 89.5 (81.0-99.0) fl MCH 28.4 (27.0-31.0) pg MCHC 31.7 L (33.0-37.0) g/dL RDW 14.5 (11.5-14.5) % Plt Count 315 (130-400) K/uL PT (9.8-13.1) Seconds INR (0.9-1.2) APTT (25.6-37.1) Seconds Sodium (132-148) mmol/l Potassium (3.6-5.0) MMOL/L Chloride (98-107) mmol/L Carbon Dioxide (22-30) mmol/L Anion Gap (10-20) BUN (7-17) mg/dl Creatinine (0.7-1.2) mg/dl Est GFR ( Amer) Est GFR (Non-Af Amer) POC Glucose (mg/dL) 141 H 130 H (65-110) mg/dL Random Glucose (65-105) mg/dL Calcium (8.4-10.2) mg/dL 05/04/17 Range/Units 11:16 WBC (4.8-10.8) K/uL RBC (3.80-5.20) Mil/uL Hgb (12.0-16.0) g/dL Hct (34.0-47.0) % MCV (81.0-99.0) fl MCH (27.0-31.0) pg MCHC (33.0-37.0) g/dL RDW (11.5-14.5) % Plt Count (130-400) K/uL PT (9.8-13.1) Seconds INR (0.9-1.2) APTT (25.6-37.1) Seconds Sodium (132-148) mmol/l Potassium (3.6-5.0) MMOL/L Chloride (98-107) mmol/L Carbon Dioxide (22-30) mmol/L Anion Gap (10-20) BUN (7-17) mg/dl Creatinine (0.7-1.2) mg/dl Est GFR ( Amer) Est GFR (Non-Af Amer) POC Glucose (mg/dL) 148 H (65-110) mg/dL Random Glucose (65-105) mg/dL Calcium (8.4-10.2) mg/dL Laboratory Results - last 24 hr 05/04/17 05/04/17 05/04/17 11:16 16:38 21:26 WBC RBC Hgb Hct MCV MCH MCHC RDW Plt Count PT INR APTT Sodium Potassium Chloride Carbon Dioxide Anion Gap BUN Creatinine Est GFR ( Amer) Est GFR (Non-Af Amer) POC Glucose (mg/dL) 148 H 130 H 141 H Random Glucose Calcium 05/05/17 05/05/17 05/05/17 04:50 04:50 04:50 WBC 11.6 H RBC 4.03 Hgb 11.4 L Hct 36.0 MCV 89.5 MCH 28.4 MCHC 31.7 L RDW 14.5 Plt Count 315 PT 11.4 INR 1.0 APTT 28.4 Sodium 137 Potassium 4.6 Chloride 101 Carbon Dioxide 29 Anion Gap 12 BUN 22 H Creatinine 0.5 L Est GFR ( Amer) > 60 Est GFR (Non-Af Amer) > 60 POC Glucose (mg/dL) Random Glucose 229 H Calcium 8.7 05/05/17 06:35 WBC RBC Hgb Hct MCV MCH MCHC RDW Plt Count PT INR APTT Sodium Potassium Chloride Carbon Dioxide Anion Gap BUN Creatinine Est GFR ( Amer) Est GFR (Non-Af Amer) POC Glucose (mg/dL) 252 H Random Glucose Calcium Fingerstick Blood Sugar Results: 252 Review of Systems - Review of Systems Review of Systems: Denies Cp, SOB, headaches, dizzines, nausea, abdominal pain. Assessment/Plan - Assessment and Plan (Free Text) Plan: Acute Ischemic Stroke -with aphasia, and LUE weakness -Patient failed multiple swallow eval, and is not good candidate for video swallow eval because high risk for aspiration, as per Speech therapist -Awaiting of PEG tube placement tomorrow Tuesday05/06/[address] Marin -Held aspirin 81 mg today as per GI rec for possible PEG tube placement on Tuesday. Resume after procedure -Held Eliquis today as per GI rec for possible PEG tube placement On Tuesday. Resume after procedure -c/w atorvastatin 40 mg daily -c/w glycemic control -last Head CT w/o contrast on 05/02/17 reported evolving subacute right MCA territory infarct involving the right frontal subcortical white matter, [facility] and basal ganglia. No evidence of hemorrhagic transformation. -c/w PT/OT treatment -PT recommended subacute rehab -Hold Lovenox 24 hours before PEG tube procedure as per GI recommendations -resume aspirin and eliquis after PEG tube placement ( next day, Tuesday) Dysphagia -most likely 2/2 CVA -c/w aspiration precautions -Has an NG tube for feeding and meds -has failed multiple swallow eval -For PEG tube tomorrow 05/06/[address] Marin (GI specialist) -Consent for next of kin( ) for PEG tube signed and in chart. -GI on consult. Rec appreciated Positive urine culture -s/p leslie cath -pt is incontinent -afebrile, mild leukocytosis -Ertapenem 1 gram IV daily on 05/02/17 as per ID. Day #4 -abx to complete 5 days as per ID Acute Respiratory Failure -likely 2/2 aspiration Pneumonia vs HAP -resolved -Afebrile -successful extubated on 04/27/17 -c/w oxygen via NC, oxygen sat 93 % on NC at 5 LPM -on Xopenex and ipratropium neb BID -CXR on 05/01/17 reported as no active disease -completed antibiotics as per ID recs Diet -c/w Glucernal feeding a@ 50 ml/hr -Give free water 250 ml Q6 hours -has failedmultiple swallow eval -GI on consult. For PEG tube tomorrow 05/06/[address] Marin (GI specialist) Diarrheas -unclear etiology, could be 2/2 feeding -afebrile -C-diff x 3 negative -GI on consult, recs appreciated -ID consulted, recs appreciated Hypertension -c/w enalapril 2.5 mg BID -c/w Labetalol 100 mg PO BID( started on 04/29/17 because uncontrolled HTN) Diabetes Mellitus type2 -c/w glycemic control -Hgb A1c 16 Diabetic foot calluses -Podiatry on consult by primary team -Podiatry recs are appreciated Prophylaxis -DVT prophylaxis : on SCDs and therapeutic lovenox for ischemic CVA as per Neuro rec. Held Eliquis as per GI for PEG tube on tuesday by GI. Neurology team made aware. -Hold Lovenox 24 hours prior to PEG tube on tuesday as per GI recs -stress ulcer prophylaxis: Protonix 40 mg IV daily -pressure ulcers precautions -aspiration precautions - Date & Time Date: 05/05/17 Time: 08:15 <Cayetano Story - Last Filed: 05/05/17 17:34> CCU Subjective - Physician Review Subjective (Free Text): 05/05/17 17:33 Attestation: Patient seen and examined at the bedside with Resident Dr. Romana Hidalgo; and I agree with her outline of plans and management documented above as discussed on AM rounds reflecting my review of all applicable clinical data, and participation in the care of the patient throughout the day in ICU; April.
--- NOTE | 2017-05-05 11:45 | CP.PCM.PN ---
Subjective - Date & Time of Evaluation Date of Evaluation: 05/05/17 Time of Evaluation: 11:43 - Subjective Subjective: ID Note- Pt. seen and examined today in ICU. awake and follows some simple commands. no fevers. continues to have diarrhea in the rectal tube. is having peg tube placement tomm by GI. Objective - Vital Signs/Intake and Output Vital Signs (last 24 hours): Temp Pulse Resp BP Pulse Ox 98.7 F 83 20 133/61 99 05/05/17 08:00 05/05/17 08:00 05/05/17 08:00 05/05/17 08:00 05/05/17 08:00 Intake and Output: 05/05/17 05/05/17 06:59 18:59 Intake Total 1060 Output Total 300 Balance 760 - Medications Medications: Current Medications Acetaminophen (Tylenol 325mg Tab) 650 mg PO Q6 PRN PRN Reason: fever > 100.4 Last Admin: 04/29/17 04:06 Dose: 650 mg Acetaminophen (Tylenol 650 Mg Supp) 650 mg [place] Q4 PRN PRN Reason: Fever >100.4 F Last Admin: 04/29/17 15:58 Dose: 650 mg Acetylcysteine (Acetylcysteine 20%) 2 ml INH RBID [facility] Last Admin: 05/05/17 07:26 Dose: 2 ml Apixaban (Eliquis) 5 mg PO BID [facility] PRN Reason: Protocol Last Admin: 05/03/17 09:45 Dose: 5 mg Aspirin (Aspirin Chewable) 81 mg PO DAILY [facility] Last Admin: 05/03/17 09:45 Dose: 81 mg Atorvastatin Calcium (Lipitor) 40 mg PO [facility] Last Admin: 05/04/17 22:20 Dose: 40 mg Bacitracin (Bacitracin Oint) 1 applic TOP BID [facility] Last Admin: 05/05/17 10:08 Dose: 1 applic Dimethicone (Proshield Plus Skin Protectant) 1 applic TOP Q8 PRN PRN Reason: Dry skin Last Admin: 05/04/17 16:31 Dose: 1 applic Donepezil HCl (Aricept) 5 mg PO [facility] Last Admin: 05/04/17 22:22 Dose: 5 mg Enalapril Maleate (Vasotec) 2.5 mg PO BID [facility] Last Admin: 05/05/17 10:05 Dose: 2.5 mg Enoxaparin Sodium (Lovenox) 75 mg SC Q12 [facility] PRN Reason: Protocol Last Admin: 05/05/17 10:04 Dose: 75 mg Glipizide (Glucotrol Xl) 10 mg PO BRKDIN [facility] Last Admin: 05/05/17 10:04 Dose: 10 mg Guaifenesin/Dextromethorphan (Mucinex-Dm 600-30 Mg) 1 tab PO BID [facility] Last Admin: 05/05/17 10:05 Dose: 1 tab Ertapenem 1 gm/ Sodium (Chloride) 100 mls @ 100 mls/hr IVPB DAILY [facility] PRN Reason: Protocol Last Admin: 05/05/17 10:06 Dose: 100 mls/hr Insulin Detemir (Levemir) 30 units SC HS [facility] Last Admin: 05/04/17 22:21 Dose: 30 units Insulin Human Regular (Humulin R) 0 units SC ACHS [facility] PRN Reason: Protocol Last Admin: 05/05/17 06:55 Dose: 3 units Ipratropium [place] (Atrovent) 0.5 mg IH RBID [facility] Last Admin: 05/05/17 07:26 Dose: 0.5 mg Labetalol HCl (Trandate) 100 mg PO BID [facility] Last Admin: 05/05/17 10:05 Dose: 100 mg Levalbuterol HCl (Xopenex) 0.63 mg INH RBID [facility] Last Admin: 05/05/17 07:26 Dose: 0.63 mg Pantoprazole Sodium (Protonix Inj) 40 mg IVP DAILY [facility] Last Admin: 05/05/17 10:06 Dose: 40 mg Repaglinide (Prandin) 1 mg PO TID [facility] Last Admin: 05/05/17 10:07 Dose: 1 mg Sitagliptin Phosphate (Januvia) 50 mg PO BID [facility] Last Admin: 05/05/17 10:04 Dose: 50 mg Valproate Sodium (Depakene Oral Soln) 250 mg PO DAILY [facility] Last Admin: 05/05/17 10:02 Dose: 250 mg - Labs Labs: - Additional Findings Additional findings: - Head Exam Head Exam: ATRAUMATIC - Neck Exam Neck exam: Positive for: Full Rom Additional comments: supple - Respiratory Exam Additional comments: breath sounds heard b/l no wheezing - Cardiovascular Exam Cardiovascular Exam: RRR, +S1, +S2 - GI/Abdominal Exam GI & Abdominal Exam: Normal Bowel Sounds, Soft Additional comments: ND, NT - Extremities Exam Additional comments: no edema b/l LE, no ulcerations - Neurological Exam Additional comments: awake, follows simple commands Laboratory Results - last 72 hr 05/02/17 05/02/17 05/03/17 16:42 21:17 05:00 WBC 11.2 H RBC 4.06 Hgb 11.4 L Hct 35.9 MCV 88.5 MCH 28.0 MCHC 31.6 L RDW 14.4 Plt Count 322 MPV 10.5 Neut % (Auto) 81.4 H Lymph % (Auto) 11.2 L Wood % (Auto) 5.5 Eos % (Auto) 1.6 Baso % (Auto) 0.3 Neut # (Auto) 9.1 H Lymph # (Auto) 1.3 Wood # (Auto) 0.6 Eos # (Auto) 0.2 Baso # (Auto) 0.0 PT INR APTT Sodium Potassium Chloride Carbon Dioxide Anion Gap BUN Creatinine Est GFR ( Amer) Est GFR (Non-Af Amer) POC Glucose (mg/dL) 246 H 201 H Random Glucose Calcium 05/03/17 05/03/17 05/03/17 05:00 06:03 11:14 WBC RBC Hgb Hct MCV MCH MCHC RDW Plt Count MPV Neut % (Auto) Lymph % (Auto) Wood % (Auto) Eos % (Auto) Baso % (Auto) Neut # (Auto) Lymph # (Auto) Wood # (Auto) Eos # (Auto) Baso # (Auto) PT INR APTT Sodium 142 Potassium 4.0 Chloride 102 Carbon Dioxide 30 Anion Gap 14 BUN 26 H Creatinine 0.6 L Est GFR ( Amer) > 60 Est GFR (Non-Af Amer) > 60 POC Glucose (mg/dL) 200 H 156 H Random Glucose 222 H Calcium 8.8 05/03/17 05/03/17 05/04/17 16:39 21:15 04:40 WBC 9.4 RBC 3.92 Hgb 11.3 L Hct 34.8 MCV 88.9 MCH 28.9 MCHC 32.5 L RDW 14.8 H Plt Count 332 MPV Neut % (Auto) Lymph % (Auto) Wood % (Auto) Eos % (Auto) Baso % (Auto) Neut # (Auto) Lymph # (Auto) Wood # (Auto) Eos # (Auto) Baso # (Auto) PT INR APTT Sodium Potassium Chloride Carbon Dioxide Anion Gap BUN Creatinine Est GFR ( Amer) Est GFR (Non-Af Amer) POC Glucose (mg/dL) 140 H 136 H Random Glucose Calcium 05/04/17 05/04/17 05/04/17 04:40 06:03 11:16 WBC RBC Hgb Hct MCV MCH MCHC RDW Plt Count MPV Neut % (Auto) Lymph % (Auto) Wood % (Auto) Eos % (Auto) Baso % (Auto) Neut # (Auto) Lymph # (Auto) Wood # (Auto) Eos # (Auto) Baso # (Auto) PT INR APTT Sodium 142 Potassium 4.4 Chloride 104 Carbon Dioxide 30 Anion Gap 12 BUN 24 H Creatinine 0.5 L Est GFR ( Amer) > 60 Est GFR (Non-Af Amer) > 60 POC Glucose (mg/dL) 173 H 148 H Random Glucose 176 H Calcium 8.7 05/04/17 05/04/17 05/05/17 16:38 21:26 04:50 WBC 11.6 H RBC 4.03 Hgb 11.4 L Hct 36.0 MCV 89.5 MCH 28.4 MCHC 31.7 L RDW 14.5 Plt Count 315 MPV Neut % (Auto) Lymph % (Auto) Wood % (Auto) Eos % (Auto) Baso % (Auto) Neut # (Auto) Lymph # (Auto) Wood # (Auto) Eos # (Auto) Baso # (Auto) PT INR APTT Sodium Potassium Chloride Carbon Dioxide Anion Gap BUN Creatinine Est GFR ( Amer) Est GFR (Non-Af Amer) POC Glucose (mg/dL) 130 H 141 H Random Glucose Calcium 05/05/17 05/05/17 05/05/17 04:50 04:50 06:35 WBC RBC Hgb Hct MCV MCH MCHC RDW Plt Count MPV Neut % (Auto) Lymph % (Auto) Wood % (Auto) Eos % (Auto) Baso % (Auto) Neut # (Auto) Lymph # (Auto) Wood # (Auto) Eos # (Auto) Baso # (Auto) PT 11.4 INR 1.0 APTT 28.4 Sodium 137 Potassium 4.6 Chloride 101 Carbon Dioxide 29 Anion Gap 12 BUN 22 H Creatinine 0.5 L Est GFR ( Amer) > 60 Est GFR (Non-Af Amer) > 60 POC Glucose (mg/dL) 252 H Random Glucose 229 H Calcium 8.7 Microbiology 04/29/17 19:20 Blood-Venous Blood Culture - Final NO GROWTH AFTER 5 DAYS 04/29/17 19:20 Blood-Venous Gram Stain - Final TEST NOT PERFORMED 04/29/17 19:20 Blood-Venous Blood Culture - Final NO GROWTH AFTER 5 DAYS 04/29/17 19:20 Blood-Venous Gram Stain - Final TEST NOT PERFORMED 04/28/17 13:57 Blood Blood Culture - Final NO GROWTH AFTER 5 DAYS 04/28/17 13:57 Blood Gram Stain - Final TEST NOT PERFORMED 05/01/17 10:10 Urine,Leslie Urine Culture - Final Escherichia Coli 04/28/17 21:10 Sputum Gram Stain - Final 04/28/17 21:10 Sputum Sputum Culture - Final Yeast Species 04/28/17 21:10 Urine,Leslie Urine Culture - Final Yeast Species 04/22/17 19:03 Blood-Venous Blood Culture - Final NO GROWTH AFTER 5 DAYS 04/22/17 19:03 Blood-Venous Gram Stain - Final TEST NOT PERFORMED 04/22/17 19:03 Blood-Venous Blood Culture - Final NO GROWTH AFTER 5 DAYS 04/22/17 19:03 Blood-Venous Gram Stain - Final TEST NOT PERFORMED 04/21/17 21:05 Blood-Venous Blood Culture - Final NO GROWTH AFTER 5 DAYS 04/21/17 21:05 Blood-Venous Gram Stain - Final TEST NOT PERFORMED 04/21/17 20:55 Blood-Venous Blood Culture - Final NO GROWTH AFTER 5 DAYS 04/21/17 20:55 Blood-Venous Gram Stain - Final TEST NOT PERFORMED 04/21/17 05:46 Trachasp Gram Stain - Final 04/21/17 05:46 Trachasp Sputum Culture - Final NORMAL ORAL LEIDA 04/21/17 05:45 Urine,Leslie Urine Culture - Final Yeast Species 04/20/17 07:34 Naris MRSA Culture (Admit) - Final MRSA NOT DETECTED 04/20/17 07:55 Urine,Clean Catch Urine Culture - Final Escherichia Coli 04/15/17 06:14 Blood-Venous Blood Culture - Final NO GROWTH AFTER 5 DAYS 04/15/17 06:14 Blood-Venous Gram Stain - Final TEST NOT PERFORMED 04/15/17 06:14 Blood-Venous Blood Culture - Final NO GROWTH AFTER 5 DAYS 04/15/17 06:14 Blood-Venous Gram Stain - Final TEST NOT PERFORMED 04/16/17 08:25 Naris MRSA Culture (Admit) - Final MRSA NOT DETECTED 04/12/17 21:15 Urine,Clean Catch Urine Culture - Final > 100,000 CFU/ML. MULTIPLE SPECIES. SUGGEST REPEAT SPECIMEM. 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 has been afebrile past 4 days. leukocytosis almost resolved today. blood cx- neg x 4 repeat UA from 04/30/2017- positive with larger LE, bacteria and yeast and prelim urine cx - form 04/30/2017- E.Coli pansensitive urine cx -e.coli pansensitive 04/20/2017 was treated for this with IV meropnem 7 days. influenza- negative new diarrhea stool c.diff- neg x [address] report noted. Plan- continue with IV ertapenem 1 gram IV daily , day #4 for E.coli UTI . advise total 5-7 days of the abx. avoid leslie insertion. monitor asp precautions. monitor wbc . check stool culture . perhaps decrease feeds rate to see if it makes any difference in the diarrhea. also advise to have GI input on the diarrhea . all above d/w ICU team. ICU time spent 45 min.
[2017-05-05] MEDS ORDERED: Chlorhexidine Gluconate 1 APPL/PKT TP ONE (21:07)
[2017-05-05] MEDS: Insulin Detemir 100 Units/ml Inj SC SCH (21:55)
--- NOTE | 2017-05-05 23:42 | CP.PCM.PN ---
Subjective - Date & Time of Evaluation Date of Evaluation: 05/05/17 Time of Evaluation: 14:00 - Subjective Subjective: Cllinically stable. No change in health status Objective - Vital Signs/Intake and Output Vital Signs (last 24 hours): Temp Pulse Resp BP Pulse Ox 98 F 81 16 138/64 97 05/05/17 20:00 05/05/17 22:00 05/05/17 22:00 05/05/17 22:00 05/05/17 22:00 Intake and Output: 05/05/17 05/06/17 18:59 06:59 Intake Total 310 Balance 310 - Medications Medications: Current Medications Acetaminophen (Tylenol 325mg Tab) 650 mg PO Q6 PRN PRN Reason: fever > 100.4 Last Admin: 04/29/17 04:06 Dose: 650 mg Acetaminophen (Tylenol 650 Mg Supp) 650 mg [place] Q4 PRN PRN Reason: Fever >100.4 F Last Admin: 04/29/17 15:58 Dose: 650 mg Acetylcysteine (Acetylcysteine 20%) 2 ml INH RBID [facility] Last Admin: 05/05/17 19:43 Dose: 2 ml Apixaban (Eliquis) 5 mg PO BID [facility] PRN Reason: Protocol Last Admin: 05/03/17 09:45 Dose: 5 mg Aspirin (Aspirin Chewable) 81 mg PO DAILY [facility] Last Admin: 05/03/17 09:45 Dose: 81 mg Atorvastatin Calcium (Lipitor) 40 mg PO HS [facility] Last Admin: 05/05/17 21:24 Dose: 40 mg Bacitracin (Bacitracin Oint) 1 applic TOP BID [facility] Last Admin: 05/05/17 17:50 Dose: 1 applic Dimethicone (Proshield Plus Skin Protectant) 1 applic TOP Q8 PRN PRN Reason: Dry skin Last Admin: 05/04/17 16:31 Dose: 1 applic Donepezil HCl (Aricept) 5 mg PO HS [facility] Last Admin: 05/05/17 21:24 Dose: 5 mg Enalapril Maleate (Vasotec) 2.5 mg PO BID [facility] Last Admin: 05/05/17 17:48 Dose: 2.5 mg Enoxaparin Sodium (Lovenox) 75 mg SC Q12 [facility] PRN Reason: Protocol Last Admin: 05/05/17 10:04 Dose: 75 mg Glipizide (Glucotrol Xl) 10 mg PO BRKDIN [facility] Last Admin: 05/05/17 17:47 Dose: 10 mg Guaifenesin/Dextromethorphan (Mucinex-Dm 600-30 Mg) 1 tab PO BID [facility] Last Admin: 05/05/17 17:47 Dose: 1 tab Ertapenem 1 gm/ Sodium (Chloride) 100 mls @ 100 mls/hr IVPB DAILY [facility] PRN Reason: Protocol Last Admin: 05/05/17 10:06 Dose: 100 mls/hr Cefazolin Sodium 1 gm/ Sodium (Chloride) 100 mls @ 100 mls/hr IVPB ONCE ONE PRN Reason: Protocol Stop: 05/06/17 10:59 Insulin Detemir (Levemir) 30 units SC HS [facility] Last Admin: 05/05/17 21:55 Dose: 30 units Insulin Human Regular (Humulin R) 0 units SC ACHS [facility] PRN Reason: Protocol Last Admin: 05/05/17 16:30 Dose: 1 units Ipratropium [place] (Atrovent) 0.5 mg IH RBID [facility] Last Admin: 05/05/17 19:43 Dose: 0.5 mg Labetalol HCl (Trandate) 100 mg PO BID [facility] Last Admin: 05/05/17 17:46 Dose: 100 mg Levalbuterol HCl (Xopenex) 0.63 mg INH RBID [facility] Last Admin: 05/05/17 19:43 Dose: 0.63 mg Pantoprazole Sodium (Protonix Inj) 40 mg IVP DAILY [facility] Last Admin: 05/05/17 10:06 Dose: 40 mg Repaglinide (Prandin) 1 mg PO TID [facility] Last Admin: 05/05/17 17:48 Dose: 1 mg Sitagliptin Phosphate (Januvia) 50 mg PO BID [facility] Last Admin: 05/05/17 17:47 Dose: 50 mg Valproate Sodium (Depakene Oral Soln) 250 mg PO DAILY [facility] Last Admin: 05/05/17 10:02 Dose: 250 mg - Labs Labs: 05/05/17 04:50 05/05/17 04:50 PT 11.4 Seconds (9.8-13.1) 05/05/17 04:50 INR 1.0 (0.9-1.2) 05/05/17 04:50 APTT 28.4 Seconds (25.6-37.1) 05/05/17 04:50 - Head Exam Head Exam: ATRAUMATIC - Eye Exam Eye Exam: Normal appearance - ENT Exam ENT Exam: Normal Exam - Neck Exam Neck Exam: Full ROM - Respiratory Exam Respiratory Exam: Clear to Ausculation Bilateral - Cardiovascular Exam Cardiovascular Exam: REGULAR RHYTHM - GI/Abdominal Exam GI & Abdominal Exam: Soft, Normal Bowel Sounds. absent: Tenderness Assessment and Plan (1) Dysphagia Assessment & Plan: For PEG tomorrow. NOAC stopped 2 days ago and Lovenox held since this morning. Should receive Ancef 1 gram IF [employer] to [place] Status: Acute
[2017-05-06 05:47] LABS: BASO # 0.1 K/uL (0.0-0.2); BASO % 0.7 % (0.0-2.0); EOS # 0.1 K/uL (0.0-0.7); EOS % 0.9 % (0.0-4.0); HEMOGLOBIN 11.5 g/dL (12.0-16.0); LYMPH # 1.4 K/uL (1.0-4.3); LYMPH % 15.8 % (20.0-40.0); MEAN CELL VOLUME 88.7 fl (81.0-99.0); MEAN CORPUSCULAR HEMOGLOBIN 28.9 pg (27.0-31.0); MEAN CORPUSCULAR HGB CONC 32.6 g/dL (33.0-37.0); MEAN PLATELET VOLUME 10.8 fl (7.2-11.7); MONO # 0.5 K/uL (0.0-0.8); MONO % 5.7 % (0.0-10.0); NEUT % 76.9 % (50.0-75.0); NRBC % 0.1 % (0.0-0.0); RED CELL DISTRIBUTION WIDTH 14.7 % (11.5-14.5); WHITE BLOOD COUNT 9.1 K/uL (4.8-10.8)
[2017-05-06 06:30] LABS: BLOOD UREA NITROGEN 23 mg/dl (7-17); CALCIUM 9.1 mg/dL (8.4-10.2); GFR AFRICAN-AMERICAN > 60; GFR NON-AFRICAN AMERICAN > 60
[2017-05-06] MEDS: Insulin Regular 100 units/ml SC SCH ×4 (06:42→22:05)
[2017-05-06] MEDS: Ipratropium 0.02% Inhal Soln (0.5 mg/2.5 ml) UD IH SCH ×2 (07:30→19:09)
[2017-05-06] MEDS: Acetylcysteine 20% Inhal Soln (4ml) INH SCH ×2 (07:30→19:09)
[2017-05-06] MEDS: Levalbuterol 0.63 MG/3 ML Inhal Soln UD INH SCH ×2 (07:31→19:09)
[2017-05-06] MEDS: Bacitracin OINT 15GM TOP SCH ×2 (09:12→16:54)
[2017-05-06] MEDS: Valproic Acid 250 mg/5 ml UD Cup PO SCH ×2 (09:12→09:41)
[2017-05-06] MEDS: guaiFENesin-DM 600-30 mg ER Tab PO SCH ×3 (09:14→17:00)
--- NOTE | 2017-05-06 09:17 | CP.PCM.PN ---
Subjective - Date & Time of Evaluation Date of Evaluation: 05/06/15 Time of Evaluation: 08:00 - Subjective Subjective: Patient seen and examined bedside. Awake , alert , moving all 4 extremities with some LUE weakness,following simple commands and able to speak few simple sentences. NGT in place with Feeding complains to NGT and feeling discomfort and throat pain Hemodynamically stable, afebrile , no acute issues overnight BP 153/78 HR 90 RR 17 O2Sat 97 % For peg placement today rectal tube in place with diarrhea Objective - Vital Signs/Intake and Output Vital Signs (last 24 hours): Temp Pulse Resp BP Pulse Ox 98.4 F 79 17 153/78 H 97 05/06/17 08:00 05/06/17 08:00 05/06/17 08:00 05/06/17 08:00 05/06/17 08:00 Intake and Output: 05/06/17 05/06/17 06:59 18:59 Intake Total 460 0 Output Total 350 50 Balance 110 -50 - Medications Medications: Current Medications Acetaminophen (Tylenol 325mg Tab) 650 mg PO Q6 PRN PRN Reason: fever > 100.4 Last Admin: 04/29/17 04:06 Dose: 650 mg Acetaminophen (Tylenol 650 Mg Supp) 650 mg [place] Q4 PRN PRN Reason: Fever >100.4 F Last Admin: 04/29/17 15:58 Dose: 650 mg Acetylcysteine (Acetylcysteine 20%) 2 ml INH RBID [facility] Last Admin: 05/06/17 07:30 Dose: 2 ml Apixaban (Eliquis) 5 mg PO BID [facility] PRN Reason: Protocol Last Admin: 05/03/17 09:45 Dose: 5 mg Aspirin (Aspirin Chewable) 81 mg PO DAILY [facility] Last Admin: 05/03/17 09:45 Dose: 81 mg Atorvastatin Calcium (Lipitor) 40 mg PO [facility] Last Admin: 05/05/17 21:24 Dose: 40 mg Bacitracin (Bacitracin Oint) 1 applic TOP BID [facility] Last Admin: 05/05/17 17:50 Dose: 1 applic Dimethicone (Proshield Plus Skin Protectant) 1 applic TOP Q8 PRN PRN Reason: Dry skin Last Admin: 05/04/17 16:31 Dose: 1 applic Donepezil HCl (Aricept) 5 mg PO [facility] Last Admin: 05/05/17 21:24 Dose: 5 mg Enalapril Maleate (Vasotec) 2.5 mg PO BID [facility] Last Admin: 05/05/17 17:48 Dose: 2.5 mg Enoxaparin Sodium (Lovenox) 75 mg SC Q12 [facility] PRN Reason: Protocol Last Admin: 05/05/17 10:04 Dose: 75 mg Glipizide (Glucotrol Xl) 10 mg PO BRKDIN [facility] Last Admin: 05/05/17 17:47 Dose: 10 mg Guaifenesin/Dextromethorphan (Mucinex-Dm 600-30 Mg) 1 tab PO BID [facility] Last Admin: 05/05/17 17:47 Dose: 1 tab Ertapenem 1 gm/ Sodium (Chloride) 100 mls @ 100 mls/hr IVPB DAILY [facility] PRN Reason: Protocol Last Admin: 05/05/17 10:06 Dose: 100 mls/hr Cefazolin Sodium 1 gm/ Sodium (Chloride) 100 mls @ 100 mls/hr IVPB ONCE ONE PRN Reason: Protocol Stop: 05/06/17 10:59 Insulin Detemir (Levemir) 30 units SC [facility] Last Admin: 05/05/17 21:55 Dose: 30 units Insulin Human Regular (Humulin R) 0 units SC ACHS [facility] PRN Reason: Protocol Last Admin: 05/06/17 06:42 Dose: Not Given Ipratropium [place] (Atrovent) 0.5 mg IH RBID [facility] Last Admin: 05/06/17 07:30 Dose: 0.5 mg Labetalol HCl (Trandate) 100 mg PO BID [facility] Last Admin: 05/05/17 17:46 Dose: 100 mg Levalbuterol HCl (Xopenex) 0.63 mg INH RBID [facility] Last Admin: 05/06/17 07:31 Dose: Not Given Pantoprazole Sodium (Protonix Inj) 40 mg IVP DAILY [facility] Last Admin: 05/05/17 10:06 Dose: 40 mg Repaglinide (Prandin) 1 mg PO TID [facility] Last Admin: 05/05/17 17:48 Dose: 1 mg Sitagliptin Phosphate (Januvia) 50 mg PO BID [facility] Last Admin: 05/05/17 17:47 Dose: 50 mg Valproate Sodium (Depakene Oral Soln) 250 mg PO DAILY [facility] Last Admin: 05/05/17 10:02 Dose: 250 mg - Labs Labs: 05/06/17 04:35 05/06/17 04:35 PT 11.4 Seconds (9.8-13.1) 05/05/17 04:50 INR 1.0 (0.9-1.2) 05/05/17 04:50 APTT 28.4 Seconds (25.6-37.1) 05/05/17 04:50 - Constitutional Appears: Non-toxic, No Acute Distress - Head Exam Head Exam: ATRAUMATIC, NORMAL INSPECTION, NORMOCEPHALIC - Eye Exam Eye Exam: EOMI, Normal appearance, PERRL Pupil Exam: NORMAL ACCOMODATION - ENT Exam ENT Exam: Mucous Membranes Dry, Normal Exam Additional comments: NGT in place - Neck Exam Neck Exam: Full ROM, Normal Inspection - Respiratory Exam Respiratory Exam: absent: Accessory Muscle Use, Prolonged Expiratory Phase, Wheezes, Respiratory Distress Additional comments: coarse breath sounds - Cardiovascular Exam Cardiovascular Exam: REGULAR RHYTHM, RRR, +S1, +S2. absent: JVD - GI/Abdominal Exam GI & Abdominal Exam: Soft, Normal Bowel Sounds. absent: Distended, Guarding, Tenderness, Rebound - Rectal Exam Rectal Exam: Deferred - Extremities Exam Extremities Exam: Full ROM, Normal Capillary Refill, Normal Inspection. absent : Pedal Edema - Neurological Exam Neurological Exam: Alert, Awake, CN II-XII Intact Neuro motor strength exam: Left Upper Extremity: 4, Right Upper Extremity: 5, Left Lower Extremity: 5, Right Lower Extremity: 5 Additional comments: expressive aphasia dysarthria Follows commands - Psychiatric Exam Psychiatric exam: Flat Affect - Skin Skin Exam: Dry, Intact, Pallor, Warm Assessment and Plan - Assessment and Plan (Free Text) Assessment: 72 y/o F PMH DM, HTN, HLD brought to the ED with acutely worsening alteration of mental status and not as verbal . She presented with left facial droop and and some expressive aphasia.CT head was neg for acute CVA or bleed. Patient glucose was elevated 563. She was admitted initially in telemetry for further stroke work up and diabetes control . Neuro consulted.She was started on ASA, Statin, plavix,lovenox , Insulin and IVF .Her BP initially was kept elevated to allow permissive hypertension. MRI head showed acute stroke in right frontal lobe white matter 2/2 While in telemetry , the patient developed worsening BAILON and some left arm weakness. Patient became confused , agitated , restless ,not following any commands. She also started to have fever. Repeat MRI of the Brain : showed acute/ subacute stroke in right mcleod radiata and centrum ovale She was then transferred to ICU for close monitoring She continued to spike fevers for > 48 hours with no obvious source of infection and normal WBC count. All work up sent including CXR, UA,urine cx, blood cx were negative for infection so fever thought to be of central origin and no antibiotics were started at that time 04/20 While in Tele , FLOOR WINDER called for stridor and respiratory distress . She developed acute hypercapnic respiratory failure was intubated and transferred to ICU. CXR showed new infiltrate, poss Asp PNA.She was started on IV antibiotics.Extubated 04/28 Neurologically much improved, awake , alert follows commands , with dysarthria , hemodynamically stable.Failed multiple swallow eval . For peg placement today 1. Progressive Acute ischemic stroke initial presentation of patient was : acute stroke to right frontal lobe that progressed to right mcleod radiata and centrum semiovale stroke Developed worsening mental status, unable to handle secretions Repeat CT head 05/02 showed Evolving subacute right MCA territory infarction involving the right frontal subcortical white matter, mcleod radiata and basal ganglia. No evidence of hemorrhagic transformation. Old lacunar infarctions in the right basal ganglia and left anterior limb of internal capsule, thalamus and basal ganglia. Pt was started on ASA and Eliquis ( now on hold as pt is for PEG placement today ) Continue statin, glycemic control, BP control Will d/c depakote today Continue aricept Continue PT / OT Failed multiple Swallow eval . For peg placement today by GI ASA and Eliquis ON hold till after PEG placement, neuro is aware Started Lovenox SQ therapeutic dose while pt off Eliquis ( on hold 24 hour before procedure as per GI recommendations ) Plan for rehab placement on Tuesday ( [facility] ) 2. Acute hypercapnic respiratory failure Most likely secondary to aspiration pneumonia and patient's inability to handle secretions due to AMS/ CVA extubated 04/28 and at present saturating well Repeat CXR 05/01 showed no active disease Keep HOB elevated, aspiration precautions continue Duonebs RTC , Acetylcysteine Respiratory toilet with frequent suctioning as tolerated Received full course of IV Meropenem and Vancomycin Continue respiratory support, aspiration precautions 3. Aspiration Pneumonia/ pneumonitis initially with CXR findings of new right lobe infiltrate prior to intubation and large secretions suctioned during intubation Completed treatment with IV Vanco and Meropenem ID and pulmonary were consulted Blood c/s : neg so far Repeat CXR on 05/01 shows no active disease 4 .Uncontrolled DM with hyperglycemia Continue accuchecks, insulin coverage cont Levemir to 30 units HS cont Glucotrol, prandin , Januvia Hgb A1c 16 Glucerna NGT feeding on hold today for peg placement Will start feeding vi apeg as per GI and dietitian recommendations 5. Hypertension permissive hypertension while stroke was evolving cont enalapril 2.5 mg PO bid and labetalol 100mg bid 6. Dyslipidemia c/w Atorvastatin 40 mg PO 7. Diabetic foot calluses podiatry consulted and following Doppler US of LE - good arterial flow 8. Diarrhea- c dif x 3 negative Rectal tube in place on Glucerna 9. UTI urine culture positive foe E. Coli Started on ertapenem # 5 as per ID. Will continue 5-7 days as per ID recommendations Ndiaye discontinued 10. DVT ppx on Lovenox ( hold for peg placement )
[2017-05-06] MEDS: GlipiZIDE 10 mg SR Tab PO SCH ×2 (09:41→16:54)
[2017-05-06] MEDS ORDERED: ceFAZolin 1 GM in Sodium Chloride 0.9% 100 ML IVPB ONE (10:00)
--- NOTE | 2017-05-06 10:07 | CP.PCM.PN ---
Subjective - Date & Time of Evaluation Date of Evaluation: 05/06/17 Time of Evaluation: 10:05 - Subjective Subjective: Ms. Black was seen and examined at the bedside in ICU. She is alert, non verbal , utilizing non-verbal cues for communication such as shaking or nodding her head. She is able to follow commands and denies any pain, dizziness, nause, or vomiting. The patient is schedule for peg placement today. There was no untoward events overnight. Objective - Vital Signs/Intake and Output Vital Signs (last 24 hours): Temp Pulse Resp BP Pulse Ox 98.4 F 79 17 153/78 H 97 05/06/17 08:00 05/06/17 08:00 05/06/17 08:00 05/06/17 08:00 05/06/17 08:00 Intake and Output: 05/06/17 05/06/17 06:59 18:59 Intake Total 460 0 Output Total 350 50 Balance 110 -50 - Medications Medications: Current Medications Acetaminophen (Tylenol 325mg Tab) 650 mg PO Q6 PRN PRN Reason: fever > 100.4 Last Admin: 04/29/17 04:06 Dose: 650 mg Acetaminophen (Tylenol 650 Mg Supp) 650 mg [place] Q4 PRN PRN Reason: Fever >100.4 F Last Admin: 04/29/17 15:58 Dose: 650 mg Acetylcysteine (Acetylcysteine 20%) 2 ml INH RBID [facility] Last Admin: 05/06/17 07:30 Dose: 2 ml Apixaban (Eliquis) 5 mg PO BID [facility] PRN Reason: Protocol Last Admin: 05/03/17 09:45 Dose: 5 mg Aspirin (Aspirin Chewable) 81 mg PO DAILY [facility] Last Admin: 05/03/17 09:45 Dose: 81 mg Atorvastatin Calcium (Lipitor) 40 mg PO [facility] Last Admin: 05/05/17 21:24 Dose: 40 mg Bacitracin (Bacitracin Oint) 1 applic TOP BID [facility] Last Admin: 05/06/17 09:12 Dose: 1 applic Dimethicone (Proshield Plus Skin Protectant) 1 applic TOP Q8 PRN PRN Reason: Dry skin Last Admin: 05/04/17 16:31 Dose: 1 applic Donepezil HCl (Aricept) 5 mg PO [facility] Last Admin: 05/05/17 21:24 Dose: 5 mg Enalapril Maleate (Vasotec) 2.5 mg PO BID [facility] Last Admin: 05/06/17 09:16 Dose: 2.5 mg Enoxaparin Sodium (Lovenox) 75 mg SC Q12 [facility] PRN Reason: Protocol Last Admin: 05/05/17 10:04 Dose: 75 mg Glipizide (Glucotrol Xl) 10 mg PO BRKDIN [facility] Last Admin: 05/06/17 09:41 Dose: Not Given Guaifenesin/Dextromethorphan (Mucinex-Dm 600-30 Mg) 1 tab PO BID [facility] Last Admin: 05/06/17 09:14 Dose: 1 tab Ertapenem 1 gm/ Sodium (Chloride) 100 mls @ 100 mls/hr IVPB DAILY [facility] PRN Reason: Protocol Last Admin: 05/06/17 09:13 Dose: 100 mls/hr Cefazolin Sodium 1 gm/ Sodium (Chloride) 100 mls @ 100 mls/hr IVPB ONCE ONE PRN Reason: Protocol Stop: 05/06/17 10:59 Last Admin: 05/06/17 09:08 Dose: 100 mls/hr Insulin Detemir (Levemir) 30 units SC HS [facility] Last Admin: 05/05/17 21:55 Dose: 30 units Insulin Human Regular (Humulin R) 0 units SC [facility] PRN Reason: Protocol Last Admin: 05/06/17 06:42 Dose: Not Given Ipratropium [place] (Atrovent) 0.5 mg IH RBID [facility] Last Admin: 05/06/17 07:30 Dose: 0.5 mg Labetalol HCl (Trandate) 100 mg PO BID [facility] Last Admin: 05/06/17 09:16 Dose: 100 mg Levalbuterol HCl (Xopenex) 0.63 mg INH RBID [facility] Last Admin: 05/06/17 07:31 Dose: Not Given Pantoprazole Sodium (Protonix Inj) 40 mg IVP DAILY [facility] Last Admin: 05/06/17 09:15 Dose: 40 mg Repaglinide (Prandin) 1 mg PO TID [facility] Last Admin: 05/06/17 09:42 Dose: Not Given Sitagliptin Phosphate (Januvia) 50 mg PO BID [facility] Last Admin: 05/06/17 09:41 Dose: Not Given Valproate Sodium (Depakene Oral Soln) 250 mg PO DAILY [facility] Last Admin: 05/06/17 09:41 Dose: Not Given - Labs Labs: 05/06/17 04:35 05/06/17 04:35 PT 11.4 Seconds (9.8-13.1) 05/05/17 04:50 INR 1.0 (0.9-1.2) 05/05/17 04:50 APTT 28.4 Seconds (25.6-37.1) 05/05/17 04:50 - Constitutional Appears: No Acute Distress - Head Exam Head Exam: NORMAL INSPECTION - Neurological Exam Neurological Exam: Awake Neuro motor strength exam: Left Upper Extremity: 3, Right Upper Extremity: 5, Left Lower Extremity: 4, Right Lower Extremity: 5 Additional comments: Neurological unchanged from previous examination. Assessment and Plan (1) CVA (cerebral vascular accident) Assessment & Plan: Case discussed with Dr. Lyons, continue all current medical, physical, occupational, and speech therapies. Recommend to restart aspirin and eliquis post peg placement with previous same dose. Recommend to discontinue depakote. Status: Acute
--- NOTE | 2017-05-06 10:22 | CP.CCUPN ---
<Sharyn Hidalgo - Last Filed: 05/06/17 14:24> CCU Subjective - Physician Review Subjective (Free Text): 05/06/17 This is a 72 y/o F with PMHx of HTN, HLD, DM, CAD and bilateral hallus ulceration. Patient was initially admitted to the telemetry unit with acute cerebral vascular accident. On 04/17 patient developed change in mental status/left upper extremity weakness, CODE STROKE was called and was transferred to ICU. On 04/20 patient was transferred back to Telemetry unit. Patient was seen and examined with design inserter attending during ICU round this morning. Seen alert, awake, following simple commands, with some improvement of left upper extremity mobility. Awaiting for PEG tube placement today by GI specialist , Dr. Marin. As per nurse's report, patient pulled out NG tube last night, and NG tube was re -inserted by nurse. Feeding tube held since after midnight for PEG tube placement today. Lovenox held as per GI recommendations. Neurology aware. Continues having nonbloody diarrheas after c-diff negative x 3. By nurse's report stool was sent for culture. Critical Care Time Spent (in minutes): 35 CCU Objective - Vital Signs / Intake & Output Vital Signs (Last 4 hours): Vital Signs Temp Pulse Resp BP Pulse Ox 05/06/17 08:00 98.4 F 79 17 153/78 H 97 Intake and Output (Last 8hrs): Intake & Output 05/05/17 05/06/17 05/06/17 22:59 06:59 14:59 Intake Total 310 150 0 Output Total 350 50 Balance 310 -200 -50 Intake: IV 10 0 Tube Feeding 50 100 0 Free Water Flush 250 50 Output: Stool 350 50 - Physical Exam Head: Positive for: Atraumatic, Normocephalic Pupils: Positive for: PERRL Conjunctiva: Positive for: Normal Mouth: Positive for: Dry Neck: Positive for: Normal Range of Motion Respiratory/Chest: Positive for: Clear to Auscultation, Other (coarse breath sounds bilateral). Negative for: Respiratory Distress, Wheezes, Decreased Breath Sounds, Rales Cardiovascular: Positive for: Regular Rate and Rhythm, Normal S1, S2. Negative for: Tachycardic Abdomen: Positive for: Normal Bowel Sounds. Negative for: Tenderness, Distention, Guarding Rectal: Positive for: Other (rectal tube in place) Upper Extremity: Positive for: Capillary Refill < 2s. Negative for: Cyanosis Lower Extremity: Positive for: Capillary Refill < 2 s. Negative for: Edema, CALF TENDERNESS Neurological: Positive for: Other (following simple commands, expressive aphasia ) Skin: Positive for: Warm, Dry, Pale Psychiatric: Positive for: Alert - Medications Active Medications: Active Medications Generic Name Dose Route Start Last Admin Trade Name Freq PRN Reason Stop Dose Admin Acetaminophen 650 mg 04/15/17 23:34 04/29/17 04:06 Tylenol 325mg Tab PO 650 mg Q6 PRN Administration fever > 100.4 Acetaminophen 650 mg 04/21/17 20:53 04/29/17 15:58 Tylenol 650 Mg Supp PA 650 mg Q4 PRN Administration Fever >100.4 F Acetylcysteine 2 ml 05/01/17 20:00 05/06/17 07:30 Acetylcysteine 20% INH 2 ml RBID BRIAN Administration Apixaban 5 mg 05/02/17 17:00 05/03/17 09:45 Eliquis PO 5 mg BID BRIAN Administration Protocol Aspirin 81 mg 04/19/17 13:00 05/03/17 09:45 Aspirin Chewable PO 81 mg DAILY BRIAN Administration Atorvastatin Calcium 40 mg 04/13/17 22:00 05/05/17 21:24 Lipitor PO 40 mg HS BRIAN Administration Bacitracin 1 applic 04/16/17 09:00 05/06/17 09:12 Bacitracin Oint TOP 1 applic BID BRIAN Administration Dimethicone 1 applic 04/27/17 11:37 05/04/17 16:31 Proshield Plus Skin Protectant TOP 1 applic Q8 PRN Administration Dry skin Donepezil HCl 5 mg 04/29/17 22:00 05/05/17 21:24 Aricept PO 5 mg HS BRIAN Administration Enalapril Maleate 2.5 mg 04/19/17 17:00 05/06/17 09:16 Vasotec PO 2.5 mg BID BRIAN Administration Enoxaparin Sodium 75 mg 05/03/17 21:00 05/05/17 10:04 Lovenox SC 75 mg Q12 BRIAN Administration Protocol Glipizide 10 mg 04/14/17 08:00 05/06/17 09:41 Glucotrol Xl PO Not Given BRKDIN COUNTS INCLUDE 234 BEDS AT THE [facility] Guaifenesin/Dextromethorphan 1 tab 05/01/17 09:00 05/06/17 09:14 Mucinex-Dm 600-30 Mg PO 1 tab BID COUNTS INCLUDE 234 BEDS AT THE [facility] Administration Ertapenem 1 gm/ Sodium 100 mls @ 100 mls/hr 05/02/17 13:30 05/06/17 09:13 Chloride IVPB 100 mls/hr DAILY COUNTS INCLUDE 234 BEDS AT THE [facility] Administration Protocol Cefazolin Sodium 1 gm/ Sodium 100 mls @ 100 mls/hr 05/06/17 10:00 05/06/17 09 :08 Chloride IVPB 05/06/17 10:59 100 mls/hr ONCE ONE Administration Protocol Insulin Detemir 30 units 05/01/17 09:00 05/05/17 21:55 Levemir SC 30 units HS COUNTS INCLUDE 234 BEDS AT THE [facility] Administration Insulin Human Regular 0 units 04/13/17 07:30 05/06/17 06:42 Humulin R SC Not Given ACHS COUNTS INCLUDE 234 BEDS AT THE [facility] Protocol Ipratropium [place] 0.5 mg 05/04/17 17:00 05/06/17 07:30 Atrovent IH 0.5 mg RBID COUNTS INCLUDE 234 BEDS AT THE [facility] Administration Labetalol HCl 100 mg 05/01/17 09:00 05/06/17 09:16 Trandate PO 100 mg BID COUNTS INCLUDE 234 BEDS AT [facility] Administration Levalbuterol HCl 0.63 mg 05/04/17 17:00 05/06/17 07:31 Xopenex INH Not Given RBID COUNTS INCLUDE 234 BEDS AT THE [facility] Pantoprazole Sodium 40 mg 04/22/17 09:00 05/06/17 09:15 Protonix Inj IVP 40 mg DAILY COUNTS INCLUDE 234 BEDS AT THE [facility] Administration Repaglinide 1 mg 04/14/17 09:00 05/06/17 09:42 Prandin PO Not Given TID COUNTS INCLUDE 234 BEDS AT THE [facility] Sitagliptin Phosphate 50 mg 04/14/17 09:00 05/06/17 09:41 Januvia PO Not Given BID BRIAN - Patient Studies Lab Studies: Lab Studies 05/06/17 05/06/17 05/06/17 Range/Units 05:48 04:35 04:35 WBC 9.1 (4.8-10.8) K/uL RBC 4.00 (3.80-5.20) Mil/uL Hgb 11.5 L (12.0-16.0) g/dL Hct 35.4 (34.0-47.0) % MCV 88.7 (81.0-99.0) fl MCH 28.9 (27.0-31.0) pg MCHC 32.6 L (33.0-37.0) g/dL RDW 14.7 H (11.5-14.5) % Plt Count 300 (130-400) K/uL MPV 10.8 (7.2-11.7) fl Neut % (Auto) 76.9 H (50.0-75.0) % Lymph % (Auto) 15.8 L (20.0-40.0) % Kane % (Auto) 5.7 (0.0-10.0) % Eos % (Auto) 0.9 (0.0-4.0) % Baso % (Auto) 0.7 (0.0-2.0) % Neut # (Auto) 7.0 (1.8-7.0) K/uL Lymph # (Auto) 1.4 (1.0-4.3) K/uL Kane # (Auto) 0.5 (0.0-0.8) K/uL Eos # (Auto) 0.1 (0.0-0.7) K/uL Baso # (Auto) 0.1 (0.0-0.2) K/uL Sodium 140 (132-148) mmol/l Potassium 4.2 (3.6-5.0) MMOL/L Chloride 100 (98-107) mmol/L Carbon Dioxide 31 H (22-30) mmol/L Anion Gap 13 (10-20) BUN 23 H (7-17) mg/dl Creatinine 0.5 L (0.7-1.2) mg/dl Est GFR ( Amer) > 60 Est GFR (Non-Af Amer) > 60 POC Glucose (mg/dL) 134 H (65-110) mg/dL Random Glucose 152 H (65-105) mg/dL Calcium 9.1 (8.4-10.2) mg/dL 05/05/17 05/05/17 05/05/17 Range/Units 21:48 16:47 12:09 WBC (4.8-10.8) K/uL RBC (3.80-5.20) Mil/uL Hgb (12.0-16.0) g/dL Hct (34.0-47.0) % MCV (81.0-99.0) fl MCH (27.0-31.0) pg MCHC (33.0-37.0) g/dL RDW (11.5-14.5) % Plt Count (130-400) K/uL MPV (7.2-11.7) fl Neut % (Auto) (50.0-75.0) % Lymph % (Auto) (20.0-40.0) % Kane % (Auto) (0.0-10.0) % Eos % (Auto) (0.0-4.0) % Baso % (Auto) (0.0-2.0) % Neut # (Auto) (1.8-7.0) K/uL Lymph # (Auto) (1.0-4.3) K/uL Kane # (Auto) (0.0-0.8) K/uL Eos # (Auto) (0.0-0.7) K/uL Baso # (Auto) (0.0-0.2) K/uL Sodium (132-148) mmol/l Potassium (3.6-5.0) MMOL/L Chloride (98-107) mmol/L Carbon Dioxide (22-30) mmol/L Anion Gap (10-20) BUN (7-17) mg/dl Creatinine (0.7-1.2) mg/dl Est GFR ( Amer) Est GFR (Non-Af Amer) POC Glucose (mg/dL) 154 H 180 H 217 H (65-110) mg/dL Random Glucose (65-105) mg/dL Calcium (8.4-10.2) mg/dL Laboratory Results - last 24 hr 05/05/17 05/05/17 05/05/17 12:09 16:47 21:48 WBC RBC Hgb Hct MCV MCH MCHC RDW Plt Count MPV Neut % (Auto) Lymph % (Auto) Kane % (Auto) Eos % (Auto) Baso % (Auto) Neut # (Auto) Lymph # (Auto) Kane # (Auto) Eos # (Auto) Baso # (Auto) Sodium Potassium Chloride Carbon Dioxide Anion Gap BUN Creatinine Est GFR ( Amer) Est GFR (Non-Af Amer) POC Glucose (mg/dL) 217 H 180 H 154 H Random Glucose Calcium 05/06/17 05/06/17 05/06/17 04:35 04:35 05:48 WBC 9.1 RBC 4.00 Hgb 11.5 L Hct 35.4 MCV 88.7 MCH 28.9 MCHC 32.6 L RDW 14.7 H Plt Count 300 MPV 10.8 Neut % (Auto) 76.9 H Lymph % (Auto) 15.8 L Kane % (Auto) 5.7 Eos % (Auto) 0.9 Baso % (Auto) 0.7 Neut # (Auto) 7.0 Lymph # (Auto) 1.4 Kane # (Auto) 0.5 Eos # (Auto) 0.1 Baso # (Auto) 0.1 Sodium 140 Potassium 4.2 Chloride 100 Carbon Dioxide 31 H Anion Gap 13 BUN 23 H Creatinine 0.5 L Est GFR ( Amer) > 60 Est GFR (Non-Af Amer) > 60 POC Glucose (mg/dL) 134 H Random Glucose 152 H Calcium 9.1 Fingerstick Blood Sugar Results: 134 Review of Systems - Review of Systems Review of Systems: Denies Cp, SOB, headaches, dizzines, nausea, abdominal pain. Assessment/Plan - Assessment and Plan (Free Text) Plan: Acute Ischemic Stroke -with aphasia, and LUE weakness -Patient failed multiple swallow eval, and is not good candidate for video swallow eval because high risk for aspiration, as per Speech therapist -Awaiting of PEG tube placement today by Dr. Marin -Feeding held after midnight for PEG tube today -Held aspirin 81 mg today as per GI rec for possible PEG tube placement today. Resume after procedure -Held Eliquis today as per GI rec for possible PEG tube placement today. Resume after procedure -c/w atorvastatin 40 mg daily -c/w glycemic control -DC depakote as per Neuro -c/w PT/OT treatment -PT recommended subacute rehab -Hold Lovenox 24 hours before PEG tube procedure as per GI recommendations -resume aspirin and eliquis after PEG tube placement -last Head CT w/o contrast on 05/02/17 reported evolving subacute right MCA territory infarct involving the right frontal subcortical white matter, mcleod radiata and basal ganglia. No evidence of hemorrhagic transformation. Dysphagia -most likely 2/2 CVA -c/w aspiration precautions -Has an NG tube for feeding and meds -has failed multiple swallow eval -For PEG tube today by Dr. Marin (GI specialist) -Consent for next of kin( ) for PEG tube signed and in chart. -GI on consult. Rec appreciated Positive urine culture -s/p leslie cath -pt is incontinent -afebrile, mild leukocytosis -Ertapenem 1 gram IV daily on 05/02/17 as per ID. Day #5 -abx to complete 5-7 days as per ID Acute Respiratory Failure -likely 2/2 aspiration Pneumonia vs HAP -resolved -Afebrile -oxygen sat 97-100 % on NC @ 4 LPM -successful extubated on 04/27/17 -c/w oxygen via NC, oxygen sat 93 % on NC at 5 LPM -on Xopenex and ipratropium neb BID -CXR on 05/01/17 reported as no active disease -completed antibiotics as per ID recs Diet -c/w Glucernal feeding a@ 50 ml/hr -Give free water 250 ml Q6 hours -has failedmultiple swallow eval -GI on consult. For PEG tube tomorrow 05/06/[address] Marin (GI specialist) Diarrheas -unclear etiology, could be 2/2 feeding/On Glucerna -afebrile -stool cultures sent on 05/05/17. F/U results -C-diff x 3 negative -GI on consult, recs appreciated -ID consulted, recs appreciated Hypertension -c/w enalapril 2.5 mg BID -c/w Labetalol 100 mg PO BID( started on 04/29/17 because uncontrolled HTN) Diabetes Mellitus type2 -c/w glycemic control -Hgb A1c 16 Diabetic foot calluses -Podiatry on consult by primary team -Podiatry recs are appreciated Prophylaxis -DVT prophylaxis : on SCDs and therapeutic lovenox for ischemic CVA as per Neuro rec. Held Eliquis as per GI for PEG tube today by GI. Neurology team made aware. -Hold Lovenox 24 hours prior to PEG tube today as per GI recs -stress ulcer prophylaxis: Protonix 40 mg IV daily -pressure ulcers precautions -aspiration precautions - Date & Time Date: 05/06/17 Time: 09:10 <Cayetano Story - Last Filed: 02/23/18 15:06> CCU Subjective - Physician Review Subjective (Free Text): Attestation: Patient seen and examined at the bedside with Resident Dr. Romana Hidalgo; and I agree with her outline of plans and management documented above as discussed on AM rounds reflecting my review of all applicable clinical data, and participation in the care of the patient throughout the day in ICU; April.
[2017-05-06] MEDS ORDERED: Etomidate 20 mg/10ml Inj IV ONE (14:48)
[2017-05-06] MEDS ORDERED: Benzocaine/Butamben/Tetracai 14-2-2% TOP Spray TOP ONE (14:48)
[2017-05-06] MEDS ORDERED: Lactated Ringer's 1,000 ML IV ONE (14:49)
[2017-05-06] MEDS ORDERED: Labetalol 5mg/ml (4ml) ONE (15:04)
[2017-05-06] MEDS ORDERED: Insulin Detemir 100 Units/ml Inj SC STA (22:14)
[2017-05-06] MEDS: Dextrose 5%/0.9% NS 1,000 ML IV SCH (23:10)
[2017-05-07 06:25] LABS: HEMOGLOBIN 10.7 g/dL (12.0-16.0); MEAN CORPUSCULAR HEMOGLOBIN 28.9 pg (27.0-31.0); MEAN CORPUSCULAR HGB CONC 32.9 g/dL (33.0-37.0); RBC 3.69 Mil/uL (3.80-5.20); RED CELL DISTRIBUTION WIDTH 14.6 % (11.5-14.5); WHITE BLOOD COUNT 6.5 K/uL (4.8-10.8)
[2017-05-07] MEDS: Insulin Regular 100 units/ml SC SCH ×4 (06:31→21:02)
[2017-05-07 07:05] LABS: BLOOD UREA NITROGEN 19 mg/dl (7-17); CALCIUM 8.8 mg/dL (8.4-10.2); GFR AFRICAN-AMERICAN > 60; GFR NON-AFRICAN AMERICAN > 60
[2017-05-07] MEDS: Acetylcysteine 20% Inhal Soln (4ml) INH SCH ×2 (07:21→19:20)
[2017-05-07] MEDS: Levalbuterol 0.63 MG/3 ML Inhal Soln UD INH SCH ×2 (07:22→19:20)
[2017-05-07] MEDS: Ipratropium 0.02% Inhal Soln (0.5 mg/2.5 ml) UD IH SCH ×2 (07:22→19:20)
--- NOTE | 2017-05-07 08:29 | CP.PCM.PN ---
Subjective - Date & Time of Evaluation Date of Evaluation: 05/07/17 Time of Evaluation: 08:00 - Subjective Subjective: Pt is alert, oriented to person and place and follows simple commands No fever per RN , noted desaturation to 84-86% however when pt asked to cough out and was suctioned , saturation improved to 92-96% on 5 liters Pt denies CP no abd pain diarrhea resolved - will d/c rectal tube will resart tube feeding and restart Lovenox Objective - Vital Signs/Intake and Output Vital Signs (last 24 hours): Temp Pulse Resp BP Pulse Ox 97.6 F 79 22 161/67 H 90 L 05/07/17 08:00 05/07/17 08:00 05/07/17 08:00 05/07/17 08:00 05/07/17 08:00 Intake and Output: 05/07/17 05/07/17 06:59 18:59 Intake Total 0 Balance 0 - Medications Medications: Current Medications Acetaminophen (Tylenol 325mg Tab) 650 mg PO Q6 PRN PRN Reason: fever > 100.4 Last Admin: 04/29/17 04:06 Dose: 650 mg Acetaminophen (Tylenol 650 Mg Supp) 650 mg [place] Q4 PRN PRN Reason: Fever >100.4 F Last Admin: 04/29/17 15:58 Dose: 650 mg Acetylcysteine (Acetylcysteine 20%) 2 ml INH RBID [facility] Last Admin: 05/07/17 07:21 Dose: 2 ml Apixaban (Eliquis) 5 mg PO Q12@0900,2100 [facility] PRN Reason: Protocol Aspirin (Ecotrin) 81 mg PO DAILY [facility] Atorvastatin Calcium (Lipitor) 40 mg PO HS [facility] Last Admin: 05/06/17 21:07 Dose: 40 mg Bacitracin (Bacitracin Oint) 1 applic TOP BID [facility] Last Admin: 05/06/17 16:54 Dose: 1 applic Dimethicone (Proshield Plus Skin Protectant) 1 applic TOP Q8 PRN PRN Reason: Dry skin Last Admin: 05/04/17 16:31 Dose: 1 applic Donepezil HCl (Aricept) 5 mg PO HS [facility] Last Admin: 05/06/17 21:07 Dose: 5 mg Enalapril Maleate (Vasotec) 2.5 mg PO BID [facility] Last Admin: 05/06/17 17:00 Dose: 2.5 mg Enoxaparin Sodium (Lovenox) 75 mg SC Q12 [facility] PRN Reason: Protocol Stop: 05/07/17 21:00 Glipizide (Glucotrol Xl) 10 mg PO BRKDIN [facility] Last Admin: 05/06/17 16:54 Dose: Not Given Guaifenesin/Dextromethorphan (Mucinex-Dm 600-30 Mg) 1 tab PO BID [facility] Last Admin: 05/06/17 17:00 Dose: 1 tab Ertapenem 1 gm/ Sodium (Chloride) 100 mls @ 100 mls/hr IVPB DAILY [facility] PRN Reason: Protocol Last Admin: 05/06/17 09:13 Dose: 100 mls/hr Dextrose/Sodium Chloride (Dextrose 5%/0.9% Ns 1000 Ml) 1,000 mls @ 60 mls/hr IV .[id number] [facility] Stop: 05/07/17 22:16 Last Admin: 05/06/17 23:10 Dose: 60 mls/hr Insulin Detemir (Levemir) 30 units SC HS [facility] Last Admin: 05/05/17 21:55 Dose: 30 units Insulin Human Regular (Humulin R) 0 units SC ACHS [facility] PRN Reason: Protocol Last Admin: 05/07/17 06:31 Dose: Not Given Ipratropium [place] (Atrovent) 0.5 mg IH RBID [facility] Last Admin: 05/07/17 07:22 Dose: 0.5 mg Labetalol HCl (Trandate) 100 mg PO BID [facility] Last Admin: 05/06/17 17:00 Dose: 100 mg Levalbuterol HCl (Xopenex) 0.63 mg INH RBID [facility] Last Admin: 05/07/17 07:22 Dose: 0.63 mg Pantoprazole Sodium (Protonix Inj) 40 mg IVP DAILY [facility] Last Admin: 05/06/17 09:15 Dose: 40 mg Repaglinide (Prandin) 1 mg PO TID [facility] Last Admin: 05/06/17 16:55 Dose: Not Given Sitagliptin Phosphate (Januvia) 50 mg PO BID [facility] Last Admin: 05/06/17 16:54 Dose: Not Given - Labs Labs: 05/07/17 05:45 05/07/17 05:45 PT 11.4 Seconds (9.8-13.1) 05/05/17 04:50 INR 1.0 (0.9-1.2) 05/05/17 04:50 APTT 28.4 Seconds (25.6-37.1) 05/05/17 04:50 - Constitutional Appears: No Acute Distress, Chronically Ill more alert today - Head Exam Head Exam: NORMAL INSPECTION, NORMOCEPHALIC - Eye Exam Eye Exam: EOMI, Normal appearance - ENT Exam ENT Exam: Mucous Membranes Dry, Normal External Ear Exam - Respiratory Exam Respiratory Exam: NORMAL BREATHING PATTERN. absent: Respiratory Distress - Cardiovascular Exam Cardiovascular Exam: REGULAR RHYTHM, +S1, +S2 - GI/Abdominal Exam GI & Abdominal Exam: Soft, Normal Bowel Sounds. absent: Tenderness Additional comments: Rectal tube in place- will d/c today PEG tube in place - Extremities Exam Extremities Exam: Normal Capillary Refill. absent: Pedal Edema - Neurological Exam Pt is alert , oriented able to say her name follows commands moves all extremities- generalized weakness , more on the LUE - Psychiatric Exam Psychiatric exam: Flat Affect - Skin Skin Exam: Dry, Normal Color, Warm Assessment and Plan - Assessment and Plan (Free Text) Assessment: 72 y/o F PMH DM, HTN, HLD brought to the ED with acutely worsening alteration of mental status and she was not as verbal . She presented with left facial droop and and some expressive aphasia. CT head was neg for acute CVA or bleed. Patient glucose was elevated 563. She was admitted initially in telemetry for further stroke work up and diabetes control . Neuro consulted.She was started on ASA, Statin, plavix,lovenox , Insulin and IVF .Her BP initially was kept elevated to allow permissive hypertension. MRI head showed acute stroke in right frontal lobe white matter 2/2 While in telemetry , the patient developed worsening BAILON and some left arm weakness. Patient became confused , agitated , restless ,not following any commands. She also started to have fever. Repeat MRI of the Brain : showed acute/ subacute stroke in right mcleod radiata and centrum ovale She was then transferred to ICU for close monitoring She continued to spike fevers for > 48 hours with no obvious source of infection and normal WBC count. All work up sent including CXR, UA,urine cx, blood cx were negative for infection so fever thought to be of central origin and no antibiotics were started at that time 04/20 While in Tele , MEDICAL CONSULTANT called for stridor and respiratory distress . She developed acute hypercapnic respiratory failure was intubated and transferred to ICU. CXR showed new infiltrate, poss Asp PNA.She was started on IV antibiotics.Extubated 04/28 Neurologically much improved, awake , alert follows commands , with dysarthria , hemodynamically stable. Failed multiple swallow eval . 05/06 : PEG placement 1. Progressive Acute ischemic stroke initial presentation of patient was : acute stroke to right frontal lobe that progressed to right mcleod radiata and centrum semiovale stroke Developed worsening mental status, unable to handle secretions Repeat CT head 05/02 showed Evolving subacute right MCA territory infarction involving the right frontal subcortical white matter, mcleod radiata and basal ganglia. No evidence of hemorrhagic transformation. Old lacunar infarctions in the right basal ganglia and left anterior limb of internal capsule, thalamus and basal ganglia. Pt was started on ASA and Eliquis Continue statin, glycemic control, BP control Continue aricept Continue PT / OT Failed multiple Swallow eval - PEG placed 05/06 Started Lovenox SQ therapeutic dose while pt off Eliquis - d/c Lovenox after tonight's dose and restart Eliquis in am Plan for rehab placement on Tuesday ( [facility] ) 2. Acute hypercapnic respiratory failure Most likely secondary to aspiration pneumonia and patient's inability to handle secretions due to AMS/ CVA extubated 04/28 and at present saturating well Repeat CXR 05/01 showed no active disease Keep HOB elevated, aspiration precautions continue Duonebs RTC , Acetylcysteine Respiratory toilet with frequent suctioning as tolerated Received full course of IV Meropenem and Vancomycin Continue respiratory support, aspiration precautions 3. Aspiration Pneumonia/ pneumonitis initially with CXR findings of new right lobe infiltrate prior to intubation and large secretions suctioned during intubation Completed treatment with IV Vanco and Meropenem ID and pulmonary were consulted Blood c/s : neg so far Repeat CXR on 05/01 shows no active disease 4 .Uncontrolled DM with hyperglycemia Continue accuchecks, insulin coverage cont Levemir to 30 units HS cont Glucotrol, prandin , Januvia Hgb A1c 16 Glucerna NGT feeding - will start today 5. Hypertension permissive hypertension while stroke was evolving cont enalapril 2.5 mg PO bid and labetalol 100mg bid 6. Dyslipidemia c/w Atorvastatin 40 mg PO 7. Diabetic foot calluses podiatry consulted and following Doppler US of LE - good arterial flow 8. Diarrhea- c diff x 3 negative Rectal tube in place- will d/c as diarrhea improved on Glucerna 9. UTI urine culture positive : E. Coli Started on ertapenem # 6 as per ID. Will continue 5-7 days as per ID recommendations Ndiaye discontinued 10. DVT ppx on Lovenox ( hold for peg placement )
[2017-05-07] MEDS: guaiFENesin-DM 600-30 mg ER Tab PO SCH ×2 (09:15→18:34)
[2017-05-07] MEDS: Enoxaparin 80 mg Syringe SC SCH ×2 (09:19→21:04)
[2017-05-07] MEDS: Bacitracin OINT 15GM TOP SCH ×2 (09:20→18:36)
[2017-05-07] MEDS: GlipiZIDE 10 mg SR Tab PO SCH ×2 (09:20→18:35)
[2017-05-07] MEDS: Dextrose 5%/0.9% NS 1,000 ML IV SCH (18:53)
--- NOTE | 2017-05-07 23:58 | CP.PCM.PN ---
Subjective - Date & Time of Evaluation Date of Evaluation: 05/07/17 Time of Evaluation: 23:56 - Subjective Subjective: No reported issues with PEG. Objective - Vital Signs/Intake and Output Vital Signs (last 24 hours): Temp Pulse Resp BP Pulse Ox 98.4 F 82 20 122/67 93 L 05/07/17 19:13 05/07/17 19:13 05/07/17 19:13 05/07/17 19:13 05/07/17 19:13 - Medications Medications: Current Medications Acetaminophen (Tylenol 325mg Tab) 650 mg PO Q6 PRN PRN Reason: fever > 100.4 Last Admin: 04/29/17 04:06 Dose: 650 mg Acetaminophen (Tylenol 650 Mg Supp) 650 mg [place] Q4 PRN PRN Reason: Fever >100.4 F Last Admin: 04/29/17 15:58 Dose: 650 mg Acetylcysteine (Acetylcysteine 20%) 2 ml INH RBID [facility] Last Admin: 05/07/17 19:20 Dose: 2 ml Apixaban (Eliquis) 5 mg PO Q12@0900,2100 [facility] PRN Reason: Protocol Aspirin (Ecotrin) 81 mg PO DAILY [facility] Atorvastatin Calcium (Lipitor) 40 mg PO HS [facility] Last Admin: 05/07/17 21:04 Dose: 40 mg Bacitracin (Bacitracin Oint) 1 applic TOP BID [facility] Last Admin: 05/07/17 18:36 Dose: Not Given Dimethicone (Proshield Plus Skin Protectant) 1 applic TOP Q8 PRN PRN Reason: Dry skin Last Admin: 05/04/17 16:31 Dose: 1 applic Donepezil HCl (Aricept) 5 mg PO HS [facility] Last Admin: 05/07/17 21:04 Dose: 5 mg Enalapril Maleate (Vasotec) 2.5 mg PO BID [facility] Last Admin: 05/07/17 18:35 Dose: 2.5 mg Glipizide (Glucotrol Xl) 10 mg PO BRKDIN [facility] Last Admin: 05/07/17 18:35 Dose: 10 mg Guaifenesin/Dextromethorphan (Mucinex-Dm 600-30 Mg) 1 tab PO BID [facility] Last Admin: 05/07/17 18:34 Dose: 1 tab Ertapenem 1 gm/ Sodium (Chloride) 100 mls @ 100 mls/hr IVPB DAILY [facility] PRN Reason: Protocol Last Admin: 05/07/17 09:11 Dose: 100 mls/hr Insulin Detemir (Levemir) 30 units SC HS [facility] Last Admin: 05/05/17 21:55 Dose: 30 units Insulin Human Regular (Humulin R) 0 units SC ACHS [facility] PRN Reason: Protocol Last Admin: 05/07/17 21:02 Dose: Not Given Ipratropium [place] (Atrovent) 0.5 mg IH RBID [facility] Last Admin: 05/07/17 19:20 Dose: 0.5 mg Labetalol HCl (Trandate) 100 mg PO BID [facility] Last Admin: 05/07/17 18:34 Dose: 100 mg Levalbuterol HCl (Xopenex) 0.63 mg INH RBID [facility] Last Admin: 05/07/17 19:20 Dose: 0.63 mg Pantoprazole Sodium (Protonix Ec Tab) 40 mg PO DAILY [facility] Repaglinide (Prandin) 1 mg PO TID [facility] Last Admin: 05/07/17 18:35 Dose: Not Given Sitagliptin Phosphate (Januvia) 50 mg PO BID [facility] Last Admin: 05/07/17 18:34 Dose: 50 mg - Labs Labs: 05/07/17 05:45 05/07/17 05:45 PT 11.4 Seconds (9.8-13.1) 05/05/17 04:50 INR 1.0 (0.9-1.2) 05/05/17 04:50 APTT 28.4 Seconds (25.6-37.1) 05/05/17 04:50 - Head Exam Head Exam: ATRAUMATIC - Eye Exam Eye Exam: Normal appearance - ENT Exam ENT Exam: Mucous Membranes Moist - Neck Exam Neck Exam: Full ROM - Respiratory Exam Respiratory Exam: Rhonchi - Cardiovascular Exam Cardiovascular Exam: REGULAR RHYTHM - GI/Abdominal Exam GI & Abdominal Exam: Soft. absent: Tenderness Additional comments: PEG site noninfected. No bleeding. Assessment and Plan (1) Dysphagia Assessment & Plan: PEG functioning well and no complications evident. Status: Acute
[2017-05-08] MEDS: Insulin Regular 100 units/ml SC SCH ×4 (06:45→22:10)
[2017-05-08] MEDS: Levalbuterol 0.63 MG/3 ML Inhal Soln UD INH SCH ×2 (07:30→19:21)
[2017-05-08] MEDS: Ipratropium 0.02% Inhal Soln (0.5 mg/2.5 ml) UD IH SCH ×2 (07:30→19:21)
[2017-05-08] MEDS: Acetylcysteine 20% Inhal Soln (4ml) INH SCH ×2 (07:30→19:21)
--- NOTE | 2017-05-08 08:25 | CP.PCM.PN ---
Subjective - Date & Time of Evaluation Date of Evaluation: 05/08/17 Time of Evaluation: 08:22 - Subjective Subjective: Ms. Black was seen and examined at the bedside. She is alert, oriented, able to clearly state the word "that's enough". She denies any headache, dizziness, blurred vision. She is able to communicate using verbal and non-verbal cues. She remains with non-productive cough with medication. She is able to follow simple commands with her left upper strength weaker than the right but with improvement. There was no untoward events overnight. Objective - Vital Signs/Intake and Output Vital Signs (last 24 hours): Temp Pulse Resp BP Pulse Ox 98 F 95 H 18 176/79 H 97 05/08/17 05:16 05/08/17 05:16 05/08/17 05:16 05/08/17 05:16 05/08/17 05:16 - Medications Medications: Current Medications Acetaminophen (Tylenol 325mg Tab) 650 mg PO Q6 PRN PRN Reason: fever > 100.4 Last Admin: 04/29/17 04:06 Dose: 650 mg Acetaminophen (Tylenol 650 Mg Supp) 650 mg MA Q4 PRN PRN Reason: Fever >100.4 F Last Admin: 04/29/17 15:58 Dose: 650 mg Acetylcysteine (Acetylcysteine 20%) 2 ml INH RBID [facility] Last Admin: 05/08/17 07:30 Dose: Not Given Apixaban (Eliquis) 5 mg PO Q12@0900,2100 [facility] PRN Reason: Protocol Aspirin (Ecotrin) 81 mg PO DAILY [facility] Atorvastatin Calcium (Lipitor) 40 mg PO [facility] Last Admin: 05/07/17 21:04 Dose: 40 mg Bacitracin (Bacitracin Oint) 1 applic TOP BID [facility] Last Admin: 05/07/17 18:36 Dose: Not Given Dimethicone (Proshield Plus Skin Protectant) 1 applic TOP Q8 PRN PRN Reason: Dry skin Last Admin: 05/04/17 16:31 Dose: 1 applic Donepezil HCl (Aricept) 5 mg PO HS [facility] Last Admin: 05/07/17 21:04 Dose: 5 mg Enalapril Maleate (Vasotec) 2.5 mg PO BID [facility] Last Admin: 05/07/17 18:35 Dose: 2.5 mg Glipizide (Glucotrol Xl) 10 mg PO BRKDIN [facility] Last Admin: 05/07/17 18:35 Dose: 10 mg Guaifenesin/Dextromethorphan (Mucinex-Dm 600-30 Mg) 1 tab PO BID [facility] Last Admin: 05/07/17 18:34 Dose: 1 tab Ertapenem 1 gm/ Sodium (Chloride) 100 mls @ 100 mls/hr IVPB DAILY [facility] PRN Reason: Protocol Last Admin: 05/07/17 09:11 Dose: 100 mls/hr Insulin Detemir (Levemir) 30 units SC HS [facility] Last Admin: 05/05/17 21:55 Dose: 30 units Insulin Human Regular (Humulin R) 0 units SC ACHS [facility] PRN Reason: Protocol Last Admin: 05/08/17 06:45 Dose: 2 units Ipratropium [place] (Atrovent) 0.5 mg IH RBID [facility] Last Admin: 05/08/17 07:30 Dose: Not Given Labetalol HCl (Trandate) 100 mg PO BID [facility] Last Admin: 05/07/17 18:34 Dose: 100 mg Levalbuterol HCl (Xopenex) 0.63 mg INH RBID [facility] Last Admin: 05/08/17 07:30 Dose: Not Given Pantoprazole Sodium (Protonix Ec Tab) 40 mg PO DAILY [facility] Repaglinide (Prandin) 1 mg PO TID [facility] Last Admin: 05/07/17 18:35 Dose: Not Given Sitagliptin Phosphate (Januvia) 50 mg PO BID [facility] Last Admin: 05/07/17 18:34 Dose: 50 mg - Labs Labs: 05/07/17 05:45 05/07/17 05:45 PT 11.4 Seconds (9.8-13.1) 05/05/17 04:50 INR 1.0 (0.9-1.2) 05/05/17 04:50 APTT 28.4 Seconds (25.6-37.1) 05/05/17 04:50 - Constitutional Appears: No Acute Distress - Head Exam Head Exam: NORMAL INSPECTION - Neurological Exam Neurological Exam: Alert, Awake Neuro motor strength exam: Left Upper Extremity: 3, Right Upper Extremity: 5, Left Lower Extremity: 5, Right Lower Extremity: 5 Additional comments: Neurological improved from previous examination. Assessment and Plan (1) CVA (cerebral vascular accident) Assessment & Plan: Case discussed with Dr. Lyons, continue all current medical, physical, occupational, and speech therapies. Recommend rehab placement for discharge planning. Status: Acute
[2017-05-08] MEDS: Bacitracin OINT 15GM TOP SCH ×2 (09:25→17:41)
[2017-05-08] MEDS: GlipiZIDE 10 mg SR Tab PO SCH ×2 (09:26→17:45)
[2017-05-08] MEDS: Pantoprazole 40 mg EC Tab PO SCH (09:27)
[2017-05-08] MEDS: guaiFENesin-DM 600-30 mg ER Tab PO SCH ×2 (09:27→17:43)
--- NOTE | 2017-05-08 11:55 | CP.PCM.PN ---
Subjective - Date & Time of Evaluation Date of Evaluation: 05/08/17 Time of Evaluation: 11:00 - Subjective Subjective: Pt has no fever Saturating 97% on 4 liters NC PEG in place and tolerating tube feeding Pt is awake, alert, oriented follows commands moves all extremities but with LUE weakness denies CP heard her cough , sounded productive however pt able unable to fully expectorate - suctioned by RN denies abd pain soft stool - about 400ml overnight accdg to RN Objective - Vital Signs/Intake and Output Vital Signs (last 24 hours): Temp Pulse Resp BP Pulse Ox 97.8 F 81 18 182/82 H 90 L 05/08/17 08:31 05/08/17 09:26 05/08/17 08:31 05/08/17 09:26 05/08/17 08:31 - Medications Medications: Current Medications Acetaminophen (Tylenol 325mg Tab) 650 mg PO Q6 PRN PRN Reason: fever > 100.4 Last Admin: 04/29/17 04:06 Dose: 650 mg Acetaminophen (Tylenol 650 Mg Supp) 650 mg SC Q4 PRN PRN Reason: Fever >100.4 F Last Admin: 04/29/17 15:58 Dose: 650 mg Acetylcysteine (Acetylcysteine 20%) 2 ml INH RBID [facility] Last Admin: 05/08/17 07:30 Dose: Not Given Amlodipine Besylate (Norvasc) 5 mg PO DAILY [facility] Last Admin: 05/08/17 09:26 Dose: 5 mg Apixaban (Eliquis) 5 mg PO Q12@0900,2100 [facility] PRN Reason: Protocol Last Admin: 05/08/17 09:27 Dose: 5 mg Aspirin (Ecotrin) 81 mg PO DAILY [facility] Last Admin: 05/08/17 09:29 Dose: 81 mg Atorvastatin Calcium (Lipitor) 40 mg PO HS [facility] Last Admin: 05/07/17 21:04 Dose: 40 mg Bacitracin (Bacitracin Oint) 1 applic TOP BID [facility] Last Admin: 05/08/17 09:25 Dose: Not Given Dimethicone (Proshield Plus Skin Protectant) 1 applic TOP Q8 PRN PRN Reason: Dry skin Last Admin: 05/04/17 16:31 Dose: 1 applic Donepezil HCl (Aricept) 5 mg PO HS [facility] Last Admin: 05/07/17 21:04 Dose: 5 mg Enalapril Maleate (Vasotec) 2.5 mg PO BID [facility] Last Admin: 05/08/17 09:29 Dose: 2.5 mg Glipizide (Glucotrol Xl) 10 mg PO BRKDIN [facility] Last Admin: 05/08/17 09:26 Dose: 10 mg Guaifenesin/Dextromethorphan (Mucinex-Dm 600-30 Mg) 1 tab PO BID [facility] Last Admin: 05/08/17 09:27 Dose: 1 tab Ertapenem 1 gm/ Sodium (Chloride) 100 mls @ 100 mls/hr IVPB DAILY [facility] PRN Reason: Protocol Last Admin: 05/08/17 09:16 Dose: 100 mls/hr Insulin Detemir (Levemir) 30 units SC HS [facility] Last Admin: 05/05/17 21:55 Dose: 30 units Insulin Human Regular (Humulin R) 0 units SC ACHS [facility] PRN Reason: Protocol Last Admin: 05/08/17 06:45 Dose: 2 units Ipratropium [place] (Atrovent) 0.5 mg IH RBID [facility] Last Admin: 05/08/17 07:30 Dose: Not Given Labetalol HCl (Trandate) 100 mg PO BID [facility] Last Admin: 05/08/17 09:16 Dose: 100 mg Levalbuterol HCl (Xopenex) 0.63 mg INH RBID [facility] Last Admin: 05/08/17 07:30 Dose: Not Given Pantoprazole Sodium (Protonix Ec Tab) 40 mg PO DAILY [facility] Last Admin: 05/08/17 09:27 Dose: 40 mg Repaglinide (Prandin) 1 mg PO TID [facility] Last Admin: 05/08/17 09:27 Dose: 1 mg Sitagliptin Phosphate (Januvia) 50 mg PO BID [facility] Last Admin: 05/08/17 09:28 Dose: 50 mg - Labs Labs: 05/07/17 05:45 05/07/17 05:45 PT 11.4 Seconds (9.8-13.1) 05/05/17 04:50 INR 1.0 (0.9-1.2) 05/05/17 04:50 APTT 28.4 Seconds (25.6-37.1) 05/05/17 04:50 - Constitutional Appears: No Acute Distress, Chronically Ill more alert today - Head Exam Head Exam: NORMAL INSPECTION, NORMOCEPHALIC - Eye Exam Eye Exam: EOMI, Normal appearance - ENT Exam ENT Exam: Mucous Membranes Dry, Normal External Ear Exam - Respiratory Exam Respiratory Exam: NORMAL BREATHING PATTERN. absent: Respiratory Distress coarse rales, + rhonchi, no wheezing - Cardiovascular Exam Cardiovascular Exam: REGULAR RHYTHM, +S1, +S2 - GI/Abdominal Exam GI & Abdominal Exam: Soft, Normal Bowel Sounds. absent: Tenderness Additional comments: Rectal tube in place PEG tube in place - Extremities Exam Extremities Exam: Normal Capillary Refill. absent: Pedal Edema - Neurological Exam Pt is alert , oriented able to say her name follows commands moves all extremities- generalized weakness , more on the LUE - Psychiatric Exam Psychiatric exam: normal mood and affect - Skin Skin Exam: Dry, Normal Color, Warm Assessment and Plan - Assessment and Plan (Free Text) Assessment: 72 y/o F PMH DM, HTN, HLD brought to the ED with acutely worsening alteration of mental status and she was not as verbal . She presented with left facial droop and and some expressive aphasia. CT head was neg for acute CVA or bleed. Patient glucose was elevated 563. She was admitted initially in telemetry for further stroke work up and diabetes control . Neuro consulted.She was started on ASA, Statin, plavix,lovenox , Insulin and IVF .Her BP initially was kept elevated to allow permissive hypertension. MRI head showed acute stroke in right frontal lobe white matter 2/2 While in telemetry , the patient developed worsening BAILON and some left arm weakness. Patient became confused , agitated , restless ,not following any commands. She also started to have fever. Repeat MRI of the Brain : showed acute/ subacute stroke in right mcleod radiata and centrum ovale She was then transferred to ICU for close monitoring She continued to spike fevers for > 48 hours with no obvious source of infection and normal WBC count. All work up sent including CXR, UA,urine cx, blood cx were negative for infection so fever thought to be of central origin and no antibiotics were started at that time 04/20 While in Tele , [employer] called for stridor and respiratory distress . She developed acute hypercapnic respiratory failure was intubated and transferred to ICU. CXR showed new infiltrate, poss Asp PNA.She was started on IV antibiotics.Extubated 04/28 Neurologically much improved, awake , alert follows commands , with dysarthria , hemodynamically stable. Failed multiple swallow eval . 05/06 : PEG placement 1. Progressive Acute ischemic stroke initial presentation of patient was : acute stroke to right frontal lobe that progressed to right mcleod radiata and centrum [place]ovale stroke Developed worsening mental status, unable to handle secretions Repeat CT head 05/02 showed Evolving subacute right MCA territory infarction involving the right frontal subcortical white matter, mcleod radiata and basal ganglia. No evidence of hemorrhagic transformation. Old lacunar infarctions in the right basal ganglia and left anterior limb of internal capsule, thalamus and basal ganglia. Pt was started on ASA and Eliquis Continue statin, glycemic control, BP control Continue aricept Continue PT / OT Failed multiple Swallow eval - PEG placed 05/06 Started Lovenox SQ therapeutic dose while pt off Eliquis for PEG placement now off Lovenox and Eliquis restarted Plan for rehab placement tomorrow ( JOHN ) 2. Acute hypercapnic respiratory failure Most likely secondary to aspiration pneumonia and patient's inability to handle secretions due to AMS/ CVA extubated 04/28 and at present saturating well Repeat CXR 05/01 showed no active disease Keep HOB elevated, aspiration precautions continue Duonebs RTC , Acetylcysteine Respiratory toilet with frequent suctioning as tolerated Received full course of IV Meropenem and Vancomycin Continue respiratory support, aspiration precautions 3. Aspiration Pneumonia/ pneumonitis initially with CXR findings of new right lobe infiltrate prior to intubation and large secretions suctioned during intubation Completed treatment with IV Vanco and Meropenem ID and pulmonary were consulted Blood c/s : neg so far Repeat CXR on 05/01 shows no active disease 4 .Uncontrolled DM with hyperglycemia Continue accuchecks, insulin coverage cont Levemir to 30 units HS cont Glucotrol, prandin , Januvia Hgb A1c 16 Glucerna NGT feeding - restarted yesterday 5. Hypertension permissive hypertension while stroke was evolving cont enalapril 2.5 mg PO bid and labetalol 100mg bid add low dose Norvasc 6. Dyslipidemia c/w Atorvastatin 40 mg PO 7. Diabetic foot calluses podiatry consulted and following Doppler US of LE - good arterial flow 8. Diarrhea- c diff x 3 negative Rectal tube in place- not d/c yesterdy as pt then deveolped diarrhea in the afternoon on Glucerna 9. UTI urine culture positive : E. Coli on Ertapenem # 7 Ndiaye discontinued 10. DVT ppx restarted on Eliquis
[2017-05-08] MEDS: Insulin Detemir 100 Units/ml Inj SC SCH (22:14)
[2017-05-09 05:31] LABS: HEMOGLOBIN 10.7 g/dL (12.0-16.0); MEAN CELL VOLUME 88.8 fl (81.0-99.0); MEAN CORPUSCULAR HEMOGLOBIN 28.6 pg (27.0-31.0); MEAN CORPUSCULAR HGB CONC 32.2 g/dL (33.0-37.0); RBC 3.76 Mil/uL (3.80-5.20); RED CELL DISTRIBUTION WIDTH 14.9 % (11.5-14.5); WHITE BLOOD COUNT 6.5 K/uL (4.8-10.8)
[2017-05-09 05:38] LABS: BLOOD UREA NITROGEN 22 mg/dl (7-17); CALCIUM 8.8 mg/dL (8.4-10.2); GFR AFRICAN-AMERICAN > 60; GFR NON-AFRICAN AMERICAN > 60
[2017-05-09] MEDS: Insulin Regular 100 units/ml SC SCH ×3 (06:35→16:34)
[2017-05-09] MEDS: Ipratropium 0.02% Inhal Soln (0.5 mg/2.5 ml) UD IH SCH ×2 (07:39→19:58)
[2017-05-09] MEDS: Acetylcysteine 20% Inhal Soln (4ml) INH SCH ×3 (07:40→19:58)
[2017-05-09] MEDS: Levalbuterol 0.63 MG/3 ML Inhal Soln UD INH SCH ×2 (07:40→19:58)
[2017-05-09] MEDS: Pantoprazole 40 mg EC Tab PO SCH (08:39)
[2017-05-09] MEDS: GlipiZIDE 10 mg SR Tab PO SCH ×2 (08:39→16:39)
[2017-05-09] MEDS: guaiFENesin-DM 600-30 mg ER Tab PO SCH ×2 (08:40→16:39)
--- NOTE | 2017-05-09 09:11 | CP.PCM.DIS ---
Provider - Provider Date of Admission: 04/12/17 20:35 Attending physician: Adenike Ibanez DO Primary care physician: Dr Babb Consults: Neurology : DR Alberts Infectious Dis: DR Valencia Pulm : Dr Monteiro GI : Dr Marin Cardio: Dr Serrato Podiatry: Dr Hassan Time Spent in preparation of Discharge (in minutes): 35 Diagnosis - Discharge Diagnosis (1) Acute ischemic stroke Status: Acute (2) Aspiration pneumonia Status: Acute (3) Dyslipidemia Status: Chronic (4) Dysphagia Status: Acute (5) Hypertension Status: Chronic (6) Type 2 diabetes mellitus with pressure callus Status: Acute (7) UTI (urinary tract infection) Status: Acute (8) Diabetes mellitus with hyperglycemia Status: Chronic Hospital Course - Lab Results Lab Results: Micro Results 05/06/17 05:19 Stool Stool Culture - Final NO SALMONELLA, SHIGELLA OR CAMPYLOBACTER ISOLATED. 04/29/17 19:20 Blood-Venous Blood Culture - Final NO GROWTH AFTER 5 DAYS 04/29/17 19:20 Blood-Venous Gram Stain - Final TEST NOT PERFORMED 04/29/17 19:20 Blood-Venous Blood Culture - Final NO GROWTH AFTER 5 DAYS 04/29/17 19:20 Blood-Venous Gram Stain - Final TEST NOT PERFORMED 04/28/17 13:57 Blood Blood Culture - Final NO GROWTH AFTER 5 DAYS 04/28/17 13:57 Blood Gram Stain - Final TEST NOT PERFORMED 05/01/17 10:10 Urine,Ndiaye Urine Culture - Final Escherichia Coli 04/28/17 21:10 Sputum Gram Stain - Final 04/28/17 21:10 Sputum Sputum Culture - Final Yeast Species 04/28/17 21:10 Urine,Ndiaye Urine Culture - Final Yeast Species 04/22/17 19:03 Blood-Venous Blood Culture - Final NO GROWTH AFTER 5 DAYS 04/22/17 19:03 Blood-Venous Gram Stain - Final TEST NOT PERFORMED 04/22/17 19:03 Blood-Venous Blood Culture - Final NO GROWTH AFTER 5 DAYS 04/22/17 19:03 Blood-Venous Gram Stain - Final TEST NOT PERFORMED 04/21/17 21:05 Blood-Venous Blood Culture - Final NO GROWTH AFTER 5 DAYS 04/21/17 21:05 Blood-Venous Gram Stain - Final TEST NOT PERFORMED 04/21/17 20:55 Blood-Venous Blood Culture - Final NO GROWTH AFTER 5 DAYS 04/21/17 20:55 Blood-Venous Gram Stain - Final TEST NOT PERFORMED 04/21/17 05:46 Trachasp Gram Stain - Final 04/21/17 05:46 Trachasp Sputum Culture - Final NORMAL ORAL LEIAD 04/21/17 05:45 Urine,Ndiaye Urine Culture - Final Yeast Species 04/20/17 07:34 Naris MRSA Culture (Admit) - Final MRSA NOT DETECTED 04/20/17 07:55 Urine,Clean Catch Urine Culture - Final Escherichia Coli 04/15/17 06:14 Blood-Venous Blood Culture - Final NO GROWTH AFTER 5 DAYS 04/15/17 06:14 Blood-Venous Gram Stain - Final TEST NOT PERFORMED 04/15/17 06:14 Blood-Venous Blood Culture - Final NO GROWTH AFTER 5 DAYS 04/15/17 06:14 Blood-Venous Gram Stain - Final TEST NOT PERFORMED 04/16/17 08:25 Naris MRSA Culture (Admit) - Final MRSA NOT DETECTED 04/12/17 21:15 Urine,Clean Catch Urine Culture - Final > 100,000 CFU/ML. MULTIPLE SPECIES. SUGGEST REPEAT SPECIMEM. Most Recent Lab Values WBC 6.5 K/uL (4.8-10.8) 05/09/17 04:15 RBC 3.76 Mil/uL (3.80-5.20) L 05/09/17 04:15 Hgb 10.7 g/dL (12.0-16.0) L 05/09/17 04:15 Hct 33.3 % (34.0-47.0) L 05/09/17 04:15 MCV 88.8 fl (81.0-99.0) 05/09/17 04:15 MCH 28.6 pg (27.0-31.0) 05/09/17 04:15 MCHC 32.2 g/dL (33.0-37.0) L 05/09/17 04:15 RDW 14.9 % (11.5-14.5) H 05/09/17 04:15 Plt Count 238 K/uL (130-400) 05/09/17 04:15 MPV 10.8 fl (7.2-11.7) 05/06/17 04:35 Neut % (Auto) 76.9 % (50.0-75.0) H 05/06/17 04:35 Lymph % (Auto) 15.8 % (20.0-40.0) L 05/06/17 04:35 [place] % (Auto) 5.7 % (0.0-10.0) 05/06/17 04:35 Eos % (Auto) 0.9 % (0.0-4.0) 05/06/17 04:35 Baso % (Auto) 0.7 % (0.0-2.0) 05/06/17 04:35 Neut # (Auto) 7.0 K/uL (1.8-7.0) 05/06/17 04:35 Lymph # (Auto) 1.4 K/uL (1.0-4.3) 05/06/17 04:35 [place] # (Auto) 0.5 K/uL (0.0-0.8) 05/06/17 04:35 Eos # (Auto) 0.1 K/uL (0.0-0.7) 05/06/17 04:35 Baso # (Auto) 0.1 K/uL (0.0-0.2) 05/06/17 04:35 Neutrophils % (Manual) 92 % (42-75) H 04/28/17 04:25 Band Neutrophils % 1 % (0-2) 04/28/17 04:25 Lymphocytes % (Manual) 4 % (20-50) L 04/28/17 04:25 Monocytes % (Manual) 3 % (0-10) 04/28/17 04:25 Platelet Estimate Normal (NORMAL) 04/28/17 04:25 Anisocytosis (manual) Slight 04/28/17 04:25 PT 11.4 Seconds (9.8-13.1) 05/05/17 04:50 INR 1.0 (0.9-1.2) 05/05/17 04:50 APTT 28.4 Seconds (25.6-37.1) 05/05/17 04:50 D-Dimer, Quantitative 1616 ng/mlDDU (0-230) H 04/21/17 05:00 pCO2 37 mm/Hg (35-45) 04/29/17 14:41 pO2 76 mm/Hg (80-100) L 04/29/17 14:41 HCO3 27.4 mmol/L (21-28) 04/29/17 14:41 ABG pH 7.47 (7.35-7.45) H 04/29/17 14:41 ABG Total CO2 28.0 mmol/L (22-28) 04/29/17 14:41 ABG O2 Saturation 97.4 % (95-98) 04/29/17 14:41 ABG O2 Content 16.1 ML/dL (15-23) 04/29/17 05:05 ABG Base Excess 3.2 mmol/L (-2.0-3.0) H 04/29/17 14:41 ABG Hemoglobin 12.1 g/dL (11.7-17.4) 04/29/17 05:05 ABG Carboxyhemoglobin 1.5 % (0.5-1.5) 04/29/17 05:05 POC ABG HHb (Measured) 3.0 % (0.0-5.0) 04/29/17 05:05 ABG Methemoglobin 1.3 % (0.0-3.0) 04/29/17 05:05 ABG O2 Capacity 16.6 mL/dL (16-24) 04/29/17 05:05 Boaz Test Yes 04/29/17 14:41 ABG Potassium 4.0 mmol/L (3.6-5.2) 04/29/17 14:41 VBG pH 7.39 (7.32-7.43) 04/12/17 20:40 VBG pCO2 48 mmHg (40-60) 04/12/17 20:40 VBG HCO3 27.3 mmol/L 04/12/17 20:40 VBG Total CO2 30.6 mmol/L (22-28) H 04/12/17 20:40 VBG O2 Sat (Calc) 94.7 % (40-65) H 04/12/17 20:40 VBG Base Excess 3.3 mmol/L (0.0-2.0) H 04/12/17 20:40 VBG Potassium 4.5 mmol/L (3.6-5.2) 04/12/17 20:40 A-a O2 Difference 99.0 mm/Hg 04/29/17 14:41 Hgb O2 Saturation 94.1 % (95.0-98.0) L 04/29/17 05:05 Sodium 144.0 mmol/L (132-148) 04/29/17 14:41 Chloride 113.0 mmol/L (98-107) H 04/29/17 14:41 Glucose 255 mg/dL (65-105) H 04/29/17 14:41 Lactate 0.9 mmol/L (0.7-2.1) 04/29/17 14:41 Liter Flow 30 04/28/17 05:07 Vent Mode N/c 04/29/17 05:05 Mechanical Rate 12 04/27/17 04:56 FiO2 31.0 % 04/29/17 14:41 Tidal Volume 500 04/27/17 04:56 PEEP 5 04/27/17 04:56 Inspiratory BiPAP 14 04/21/17 05:23 Expiratory BiPAP 8 04/21/17 05:23 Blood Gas Comments 3l/m nc rb 04/29/17 14:41 Crit Value Called To Dr rico 04/12/17 20:40 Crit Value Called By Rt 04/12/17 20:40 Crit Value Read Back N 04/29/17 14:41 Blood Gas Notified Time 204904/12/17 20:40 Sodium 143 mmol/l (132-148) 05/09/17 04:15 Potassium 4.1 MMOL/L (3.6-5.0) 05/09/17 04:15 Chloride 102 mmol/L (98-107) 05/09/17 04:15 Carbon Dioxide 28 mmol/L (22-30) 05/09/17 04:15 Anion Gap 17 (10-20) 05/09/17 04:15 BUN 22 mg/dl (7-17) H 05/09/17 04:15 Creatinine 0.5 mg/dl (0.7-1.2) L 05/09/17 04:15 Est GFR ( Amer) > 60 05/09/17 04:15 Est GFR (Non-Af Amer) > 60 05/09/17 04:15 POC Glucose (mg/dL) 163 mg/dL (65-110) H 05/08/17 21:49 Random Glucose 150 mg/dL (65-105) H 05/09/17 04:15 Hemoglobin A1c 16.0 % (4.2-6.5) H 04/12/17 20:55 Calcium 8.8 mg/dL (8.4-10.2) 05/09/17 04:15 Magnesium 2.1 MG/DL (1.6-2.3) 04/21/17 05:53 Total Bilirubin 0.4 mg/dl (0.2-1.3) 05/02/17 04:30 AST 14 U/L (14-36) D 05/02/17 04:30 ALT 27 U/L (9-52) 05/02/17 04:30 Alkaline Phosphatase 71 U/L (38-126) 05/02/17 04:30 Troponin I < 0.0120 ng/mL (0.00-0.120) 04/12/17 20:54 Total Protein 6.5 G/DL (6.3-8.2) 05/02/17 04:30 Albumin 3.0 g/dL (3.5-5.0) L 05/02/17 04:30 Globulin 3.5 gm/dL (2.2-3.9) 05/02/17 04:30 Albumin/Globulin Ratio 0.9 (1.0-2.1) L 05/02/17 04:30 Triglycerides 169 mg/DL (0-149) H 04/12/17 20:54 Cholesterol 268 mg/dL (0-199) H 04/12/17 20:54 LDL Cholesterol Direct 166 mg/dL (0-129) H 04/12/17 20:54 HDL Cholesterol 56 MG/DL (30-70) 04/12/17 20:54 Procalcitonin 0.09 NG/ML (0.19-0.49) L 04/17/17 05:32 Arterial Blood Potassium 4.0 mmol/L (3.6-5.2) 04/29/17 14:41 Venous Blood Potassium 4.5 mmol/L (3.6-5.2) 04/12/17 20:40 Urine Color Yellow (YELLOW) 04/30/17 00:27 Urine Clarity Turbid (Clear) 04/30/17 00:27 Urine pH 5.0 (5.0-8.0) 04/30/17 00:27 Ur Specific [place] 1.030 (1.003-1.030) 04/30/17 00:27 Urine Protein 100 mg/dL (NEGATIVE) 04/30/17 00:27 Urine Glucose (UA) >=500 mg/dL (Normal) 04/30/17 00:27 Urine Ketones Trace mg/dL (NEGATIVE) 04/30/17 00:27 Urine Blood Large (NEGATIVE) 04/30/17 00:27 Urine Nitrate Negative (NEGATIVE) 04/30/17 00:27 Urine Bilirubin Negative (NEGATIVE) 04/30/17 00:27 Urine Urobilinogen 0.2-1.0 mg/dL (0.2-1.0) 04/30/17 00:27 Ur Leukocyte Esterase Large Jr/uL (Negative) 04/30/17 00:27 Urine RBC (Auto) 802 /hpf (0-3) H 04/30/17 00:27 Urine Microscopic WBC 559 /hpf (0-5) H 04/30/17 00:27 Ur Squamous Epith Cells 8 /hpf (0-5) H 04/30/17 00:27 Urine Bacteria Few (<OCC) H 04/30/17 00:27 Hyaline Casts 0-2 /hpf (0-2) 04/17/17 01:44 Urine Yeast (Budding) Many /hpf (NEGATIVE) H 04/30/17 00:27 Stool Leukocytes, Qual Negative (NEGATIVE) 05/05/17 08:15 Vancomycin Trough 5.7 ug/mL (5.0-10.0) 04/24/17 18:00 Valproic Acid 57.6 ug/mL (50.0-100.0) 04/19/17 04:30 C. difficile Ag & Toxin Negative (NEGATIVE) 04/28/17 21:10 Influenza Typ A,B (EIA) Negative for flu a/b (NEGATIVE) 04/16/17 10:02 Blood Type A POSITIVE 04/12/17 20:35 Antibody Screen Negative 04/12/17 20:35 BBK History Checked Patient has bt 04/12/17 20:35 - Hospital Course Hospital Course: 72 y/o F PMH DM, HTN, HLD brought to the ED with acutely worsening alteration of mental status and she was not as verbal . She presented with left facial droop and and some expressive aphasia. CT head was neg for acute CVA or bleed. Patient glucose was elevated 563. She was admitted initially in telemetry for further stroke work up and diabetes control . Neuro consulted.She was started on ASA, Statin, plavix,lovenox , Insulin and IVF .Her BP initially was kept elevated to allow permissive hypertension. MRI head showed acute stroke in right frontal lobe white matter 04/15 While in telemetry , the patient developed worsening BAILON and some left arm weakness. Patient became confused , agitated , restless ,not following any commands. She also started to have fever. Repeat MRI of the Brain : showed acute/ subacute stroke in right mcleod radiata and centrum ovale She was then transferred to ICU for close monitoring She continued to spike fevers for > 48 hours with no obvious source of infection and normal WBC count. All work up sent including CXR, UA,urine cx, blood cx were negative for infection so fever thought to be of central origin and no antibiotics were started at that time 04/20 While in Tele , MANAGER LAB[employer] called for stridor and respiratory distress . She developed acute hypercapnic respiratory failure was intubated and transferred to ICU. CXR showed new infiltrate, poss Asp PNA.She was started on IV antibiotics.Extubated 04/28 Neurologically much improved, awake , alert follows commands , with dysarthria , hemodynamically stable. Failed multiple swallow eval . 05/06 : PEG placement - tolerating Tube feeding 1. Progressive Acute ischemic stroke initial presentation of patient was : acute stroke to right frontal lobe that progressed to right mcleod radiata and centrum semiovale stroke Developed worsening mental status, unable to handle secretions Repeat CT head 05/02 showed Evolving subacute right MCA territory infarction involving the right frontal subcortical white matter, mcleod radiata and basal ganglia. No evidence of hemorrhagic transformation. Old lacunar infarctions in the right basal ganglia and left anterior limb of internal capsule, thalamus and basal ganglia. Pt was started on ASA and Eliquis Continue statin, glycemic control, BP control Continue aricept Continue PT / OT Failed multiple Swallow eval - PEG placed 05/06 cont Eliquis d/c to JOHN today 2. Acute hypercapnic respiratory failure Most likely secondary to aspiration pneumonia and patient's inability to handle secretions due to AMS/ CVA extubated 04/28 and at present saturating well Repeat CXR 05/01 showed no active disease Keep HOB elevated, aspiration precautions continue Duonebs RTC , Acetylcysteine Respiratory toilet with frequent suctioning as tolerated Received full course of IV Meropenem and Vancomycin Continue respiratory support, aspiration precautions 3. Aspiration Pneumonia/ pneumonitis initially with CXR findings of new right lobe infiltrate prior to intubation and large secretions suctioned during intubation Completed treatment with IV Vanco and Meropenem ID and pulmonary were consulted Blood c/s : neg so far Repeat CXR on 05/01 shows no active disease 4 .Uncontrolled DM with hyperglycemia Continue accuchecks, insulin coverage cont Levemir to 30 units HS cont Glucotrol, prandin , Januvia Hgb A1c 16 Glucerna NGT feeding - 5. Hypertension permissive hypertension while stroke was evolving cont enalapril 2.5 mg PO bid and labetalol 100mg bid added low dose Norvasc 6. Dyslipidemia c/w Atorvastatin 40 mg PO 7. Diabetic foot calluses podiatry consulted and following Doppler US of LE - good arterial flow 8. Diarrhea- c diff x 3 negative Stool has been soft since pt was started on Glucerna however amount normal Rectal tube d/c 9. UTI urine culture positive : E. Coli completed Ertapenem tx Ndiaye discontinued 10. DVT ppx on Eliquis Discharge Exam - Head Exam Head Exam: NORMAL INSPECTION, NORMOCEPHALIC - Eye Exam Eye Exam: EOMI, Normal appearance Pupil Exam: NORMAL ACCOMODATION - ENT Exam ENT Exam: Mucous Membranes Dry, Normal External Ear Exam - Neck Exam Neck exam: Full Rom - Respiratory Exam Respiratory Exam: Rhonchi, NORMAL BREATHING PATTERN. absent: Wheezes, Respiratory Distress - Cardiovascular Exam Cardiovascular Exam: REGULAR RHYTHM, +S1, +S2 - GI/Abdominal Exam GI & Abdominal Exam: Normal Bowel Sounds, Soft. absent: Tenderness Additional comments: + PEG - Extremities Exam Extremities exam: normal capillary refill, pedal pulses present Additional comments: no calf tenderness no edema - Neurological Exam Neurological exam: Alert Additional comments: oriented to person and place moves all extremities LUE weakness + dysarthria but comprehensible - Psychiatric Exam Psychiatric exam: Normal Affect, Normal Mood - Skin Skin Exam: Dry, Normal Color, Warm Discharge Plan - Discharge Medications Prescriptions: Clopidogrel [Plavix] 75 mg PO DAILY #30 tab Insulin Detemir [Levemir] 25 units SC HS #5 vial - Follow Up Plan Condition: STABLE Disposition: TRANSF TO SNF Instructions: Diabetic Hyperglycemia (DC), Stroke (DC) Additional Instructions: appt with Dr Alberts in 2 wks Referrals: Layton Hassan DPM [Staff Provider] - Leroy Alberts MD [Medical Doctor] - Pito Babb MD [Staff Provider] - Clinical Quality Measures - CQM - Stroke Antithrombotic Prescribed: Yes Anticoagulation Prescribed for Atrial Flutter, Atrial Fibrillation and History of:: Yes Statin prescribed: Yes
--- NOTE | 2017-05-09 09:38 | CP.PCM.PN ---
Subjective - Date & Time of Evaluation Date of Evaluation: 05/09/17 Time of Evaluation: 09:35 - Subjective Subjective: Ms. Black was seen and examined at the bedside. She is alert, able to utter few words such as " la casa, therapia, nada, and donaldo". She denies any headache , dizziness, blurred vision. She is able to follow simple commands. According to the staff, patient is for transfer to a sub acute rehab today. Patient is aware. There was no untoward events overnight. Objective - Vital Signs/Intake and Output Vital Signs (last 24 hours): Temp Pulse Resp BP Pulse Ox 97.6 F 70 20 166/71 H 97 05/09/17 08:00 05/09/17 08:40 05/09/17 08:00 05/09/17 08:40 05/09/17 08:00 Intake and Output: 05/09/17 05/09/17 06:59 18:59 Intake Total 450 Balance 450 - Medications Medications: Current Medications Acetaminophen (Tylenol 325mg Tab) 650 mg PO Q6 PRN PRN Reason: fever > 100.4 Last Admin: 04/29/17 04:06 Dose: 650 mg Acetaminophen (Tylenol 650 Mg Supp) 650 mg MO Q4 PRN PRN Reason: Fever >100.4 F Last Admin: 04/29/17 15:58 Dose: 650 mg Acetylcysteine (Acetylcysteine 20%) 2 ml INH RBID [facility] Last Admin: 05/09/17 08:09 Dose: 2 ml Amlodipine Besylate (Norvasc) 5 mg PO DAILY [facility] Last Admin: 05/09/17 08:40 Dose: 5 mg Apixaban (Eliquis) 5 mg PO Q12@0900,2100 [facility] PRN Reason: Protocol Last Admin: 05/09/17 08:39 Dose: 5 mg Aspirin (Ecotrin) 81 mg PO DAILY [facility] Last Admin: 05/09/17 08:39 Dose: 81 mg Atorvastatin Calcium (Lipitor) 40 mg PO HS [facility] Last Admin: 05/08/17 21:05 Dose: 40 mg Bacitracin (Bacitracin Oint) 1 applic TOP BID [facility] Last Admin: 05/08/17 17:41 Dose: Not Given Dimethicone (Proshield Plus Skin Protectant) 1 applic TOP Q8 PRN PRN Reason: Dry skin Last Admin: 05/04/17 16:31 Dose: 1 applic Donepezil HCl (Aricept) 5 mg PO HS [facility] Last Admin: 05/08/17 21:05 Dose: 5 mg Enalapril Maleate (Vasotec) 2.5 mg PO BID [facility] Last Admin: 05/09/17 08:39 Dose: 2.5 mg Glipizide (Glucotrol Xl) 10 mg PO BRKDIN [facility] Last Admin: 05/09/17 08:39 Dose: 10 mg Guaifenesin/Dextromethorphan (Mucinex-Dm 600-30 Mg) 1 tab PO BID [facility] Last Admin: 05/09/17 08:40 Dose: 1 tab Ertapenem 1 gm/ Sodium (Chloride) 100 mls @ 100 mls/hr IVPB DAILY [facility] PRN Reason: Protocol Last Admin: 05/08/17 09:16 Dose: 100 mls/hr Insulin Detemir (Levemir) 30 units SC HS [facility] Last Admin: 05/08/17 22:14 Dose: 30 units Insulin Human Regular (Humulin R) 0 units SC ACHS [facility] PRN Reason: Protocol Last Admin: 05/09/17 06:35 Dose: Not Given Ipratropium [place] (Atrovent) 0.5 mg IH RBID [facility] Last Admin: 05/09/17 07:39 Dose: 0.5 mg Labetalol HCl (Trandate) 100 mg PO BID [facility] Last Admin: 05/09/17 08:39 Dose: 100 mg Levalbuterol HCl (Xopenex) 0.63 mg INH RBID [facility] Last Admin: 05/09/17 07:40 Dose: 0.63 mg Pantoprazole Sodium (Protonix Ec Tab) 40 mg PO DAILY [facility] Last Admin: 05/09/17 08:39 Dose: 40 mg Repaglinide (Prandin) 1 mg PO TID [facility] Last Admin: 05/09/17 08:38 Dose: 1 mg Sitagliptin Phosphate (Januvia) 50 mg PO BID [facility] Last Admin: 05/09/17 08:38 Dose: 50 mg - Labs Labs: 05/09/17 04:15 05/09/17 04:15 PT 11.4 Seconds (9.8-13.1) 05/05/17 04:50 INR 1.0 (0.9-1.2) 05/05/17 04:50 APTT 28.4 Seconds (25.6-37.1) 05/05/17 04:50 - Constitutional Appears: No Acute Distress - Head Exam Head Exam: NORMAL INSPECTION - Neurological Exam Neurological Exam: Alert, Awake Neuro motor strength exam: Left Upper Extremity: 3, Right Upper Extremity: 5, Left Lower Extremity: 5, Right Lower Extremity: 5 Additional comments: Neurological unchanged from previous examination. Assessment and Plan (1) CVA (cerebral vascular accident) Assessment & Plan: Case discussed with Dr. Alberts, continue all current medical, physical, occupational, and speech therapies. Recommend to follow up with an outpatient neurologist upon transfer/ discharge. If the patient would like to see Dr. Alberts in 2 weeks at [address] [address] [facility], [id number]. Status: Acute
[2017-05-09] MEDS: Bacitracin OINT 15GM TOP SCH ×2 (10:52→16:39)
[2017-05-09 15:31] VITALS: RESP 20; TEMP 97.5
[2017-05-09 20:10] VITALS: BP 142/66; PULSE 76; O2SAT 93
== END 2017-05-09 20:15 | DRG 64 ==
LOC: H.ER 20:04 → H.ERHOLD 20:35 → H.TEL 04-13 15:33 → H.ICU/CCU 04-16 21:20 → H.TEL 04-20 17:47 → H.ICU/CCU 04-21 08:35 → H.TEL 05-06 22:45
PROVIDERS: ADMIT Student in an Organized Health Care Education/Training Program; ATTEND Student in an Organized Health Care Education/Training Program
PROC: 0HBMXZZ Excision of Right Foot Skin, External Approach (ICD-10-PCS; 2017-04-18)
PROC: 0HBNXZZ Excision of Left Foot Skin, External Approach (ICD-10-PCS; 2017-04-18)
PROC: 3E0234Z Introduction of Serum, Toxoid and Vaccine into Muscle, Percutaneous Approach (ICD-10-PCS; principal; 2017-04-19)
PROC: 0BH17EZ Insertion of Endotracheal Airway into Trachea, Via Natural or Artificial Opening (ICD-10-PCS; 2017-04-21)
PROC: 5A1955Z Respiratory Ventilation, Greater than 96 Consecutive Hours (ICD-10-PCS; 2017-04-21)
PROC: 0DH68UZ Insertion of Feeding Device into Stomach, Via Natural or Artificial Opening Endoscopic (ICD-10-PCS; 2017-05-06)
PROC: 3E0G76Z Introduction of Nutritional Substance into Upper GI, Via Natural or Artificial Opening (ICD-10-PCS; 2017-05-06)
DX: I63.9 Cerebral infarction, unspecified (principal); J69.0 Pneumonitis due to inhalation of food and vomit; J96.02 Acute respiratory failure with hypercapnia; J96.01 Acute respiratory failure with hypoxia; E87.3 Alkalosis; E11.621 Type 2 diabetes mellitus with foot ulcer; R13.10 Dysphagia, unspecified; L97.519 Non-pressure chronic ulcer of other part of right foot with unspecified severity; N39.0 Urinary tract infection, site not specified; E11.65 Type 2 diabetes mellitus with hyperglycemia; L97.529 Non-pressure chronic ulcer of other part of left foot with unspecified severity; R47.01 Aphasia; R29.810 Facial weakness; I10 Essential (primary) hypertension; E78.5 Hyperlipidemia, unspecified; E78.00 Pure hypercholesterolemia, unspecified; Z23 Encounter for immunization; I25.10 Atherosclerotic heart disease of native coronary artery without angina pectoris; Z91.14 Patient's other noncompliance with medication regimen; L84 Corns and callosities; E87.6 Hypokalemia; Z78.1 Physical restraint status; B96.20 Unspecified Escherichia coli [E. coli] as the cause of diseases classified elsewhere; R19.7 Diarrhea, unspecified; G83.24 Monoplegia of upper limb affecting left nondominant side; G30.9 Alzheimer's disease, unspecified

== ENCOUNTER 2017-07-12 09:48 | Inpatient (IN) | payer MEDICARE, OTHER ==
[2017-07-12] MEDS ORDERED: Sodium Chloride 0.9% 1,000 ML IV STA (10:47)
[2017-07-12 10:59] LABS: VENOUS BLOOD GAS BASE EXCESS 5.4 mmol/L (0.0-2.0); VENOUS BLOOD GAS PCO2 46 mmHg (40-60); VENOUS BLOOD GAS PO2 36 mm/Hg (30-55); VENOUS BLOOD PH 7.43 (7.32-7.43)
[2017-07-12 11:11] LABS: BASO # 0.1 K/uL (0.0-0.2); BASO % 0.5 % (0.0-2.0); EOS # 0.1 K/uL (0.0-0.7); EOS % 0.7 % (0.0-4.0); LYMPH % 5.8 % (20.0-40.0); MEAN CORPUSCULAR HEMOGLOBIN 29.1 pg (27.0-31.0); MEAN CORPUSCULAR HGB CONC 32.7 g/dL (33.0-37.0); MEAN PLATELET VOLUME 8.8 fl (7.2-11.7); MONO % 5.6 % (0.0-10.0); NEUT # 15.4 K/uL (1.8-7.0); NEUT % 87.4 % (50.0-75.0); NRBC % 0.1 % (0.0-0.0); PLATELET COUNT 343 K/uL (130-400); WHITE BLOOD COUNT 17.6 K/uL (4.8-10.8)
--- NOTE | 2017-07-12 11:13 | RAD ---
HISTORY: Sepsis Patient COMPARISON: Chest radiograph dated 05/01/2017. FINDINGS: LUNGS: Prominence of pulmonary vasculature may be secondary to low lung volumes, AP technique and/or pulmonary vascular congestion. Bilateral midlung platelike atelectasis. PLEURA: No significant pleural effusion identified, no pneumothorax apparent. CARDIOVASCULAR: Atherosclerotic aortic calcifications. Cardiomediastinal silhouette stably prominent. OSSEOUS STRUCTURES: Unchanged. VISUALIZED UPPER ABDOMEN: Normal. OTHER FINDINGS: None. IMPRESSION: Prominence of the pulmonary vasculature may be secondary to low lung volumes, AP technique and/or pulmonary vascular congestion. Bilateral mid lung platelike atelectasis.
[2017-07-12 11:25] LABS: ALB/GLOB RATIO 0.8 (1.0-2.1); ALBUMIN 3.7 g/dL (3.5-5.0); ALT/SGPT 19 U/L (9-52); AST/SGOT 19 U/L (14-36); BLOOD UREA NITROGEN 25 mg/dl (7-17); CALCIUM 9.3 mg/dL (8.4-10.2); GFR AFRICAN-AMERICAN > 60; GFR NON-AFRICAN AMERICAN > 60
[2017-07-12 11:29] LABS: INR 1.2 (0.9-1.2); PROTHROMBIN TIME 13.5 Seconds (9.8-13.1)
[2017-07-12 11:30] LABS: PARTIAL THROMBOPLASTIN TIME 20.8 Seconds (25.6-37.1)
--- NOTE | 2017-07-12 11:56 | ED PDOC ---
HPI: Abdomen Time Seen by Provider: 07/12/17 10:43 Chief Complaint (Nursing): Abdominal Pain Chief Complaint (Provider): Abdominal pain History Per: Family History/Exam Limitations: no limitations Onset/Duration Of Symptoms: Days Current Symptoms Are (Timing): Still Present Associated Symptoms: Fever. denies: Vomiting, Diarrhea Additional Complaint(s): Jennie Black is a 72 year old female, with a past medical history of CVA, HTN, diabetes and Alzheimer's disease, who was sent to the emergency department from nursing facility with pain, redness and swelling around G-tube site. Patient was also found to be febrile upon arrival. believes redness has been there for several days. Patient is poor historian. History is significant for CVA earlier this year for which patient required G-tube after that. denies any vomiting, diarrhea, or shortness of breath. No further medical complaints. PMD: None provided. Past Medical History Reviewed: Historical Data, Nursing Documentation, Vital Signs Vital Signs: Last Vital Signs Temp 98.4 F 07/14/17 12:19 Pulse 78 07/14/17 12:19 Resp 18 07/14/17 12:19 BP 150/60 07/14/17 12:19 Pulse Ox 96 07/14/17 12:19 - Medical History PMH: Alzheimer's Disease, CVA, Diabetes (type 2, NIDDM), HTN, Hypercholesterolemia Denies: HIV, Chronic Kidney Disease - Family History Family History: States: Unknown Family Hx - Social History Current smoker - smoking cessation education provided: No Alcohol: None Drugs: Denies - Immunization History Hx Tetanus Toxoid Vaccination: No Hx Influenza Vaccination: No Hx Pneumococcal Vaccination: No - Home Medications Home Medications: Ambulatory Orders Medication Instructions Recorded Ergocalciferol (Vitamin D2) 50,000 unit PO QWK 04/13/17 [Vitamin D2] Glimepiride [amaRYL] 4 mg PO BID 04/13/17 Repaglinide [Prandin] 1 mg PO TID 04/13/17 Atorvastatin [Lipitor] 40 mg PO HS tab 04/15/17 Clopidogrel [Plavix] 75 mg PO DAILY tab 04/15/17 SITagliptin [Januvia] 50 mg PO BID tab 04/15/17 Acetaminophen [Tylenol 325mg tab] 650 mg PO Q6 PRN tab 05/09/17 Aspirin [Ecotrin] 81 mg PO DAILY tabec 05/09/17 Bacitracin OINT 1 applic TOP BID tube 05/09/17 Dimethicone [Proshield Plus Skin 1 applic TOP Q8 PRN gel 05/09/17 Protectant] Donepezil [Aricept] 5 mg PO HS tab 05/09/17 Enalapril Maleate [Vasotec] 2.5 mg PO BID tab 05/09/17 Labetalol [Trandate] 100 mg PO BID tab 05/09/17 Pantoprazole [Protonix EC Tab] 40 mg PO DAILY ect 05/09/17 amLODIPine [Norvasc] 5 mg PO DAILY tab 05/09/17 Insulin Detemir [Levemir] 35 units SC HS #0 vial 07/12/17 Acetaminophen [Tylenol 325mg tab] 650 mg PO Q4 PRN 07/13/17 Acetaminophen [Tylenol 325mg tab] 650 mg PO Q4 PRN 07/13/17 Alogliptin Benzoate [Nesina] 12.5 mg PO BID 07/13/17 - Allergies Allergies/Adverse Reactions: Allergies Allergy/AdvReac Type Severity Reaction Status Date / Time oxycodone Allergy RASH Verified 07/12/17 10:15 Review of Systems ROS Statement: Except As Marked, All Systems Reviewed And Found Negative Constitutional: Positive for: Fever, Weakness Respiratory: Negative for: Cough Gastrointestinal: Positive for: Abdominal Pain. Negative for: Vomiting, Diarrhea Physical Exam - Reviewed Nursing Documentation Reviewed: Yes Vital Signs Reviewed: Yes - Physical Exam Appears: Positive for: Non-toxic. Negative for: Well (ill) Head Exam: Positive for: ATRAUMATIC, NORMOCEPHALIC Skin: Positive for: Normal Color, Warm, Dry Eye Exam: Positive for: Normal appearance, EOMI, PERRL Neck: Positive for: Painless ROM, Supple Cardiovascular/Chest: Positive for: Regular Rate, Rhythm. Negative for: Murmur Respiratory: Positive for: Normal Breath Sounds. Negative for: Respiratory Distress Gastrointestinal/Abdominal: Positive for: Other (abdominal wall erythema and induration emanating from G-tube site. No fluctuance) Back: Positive for: Normal Inspection. Negative for: L CVA Tenderness, R CVA Tenderness, Vertebral Tenderness Extremity: Positive for: Normal ROM (upper and lower extremities). Negative for : Deformity, Swelling Neurologic/Psych: Positive for: Alert, Oriented (x2) - Laboratory Results Result Diagrams: 07/14/17 05:35 07/14/17 05:35 - ECG O2 Sat by Pulse Oximetry: 99 (RA) Pulse Ox Interpretation: Normal Medical Decision Making Medical Decision Making: Initial Impression: Initial Plan: --VBG Shock Panel --Abd & Pelvis IV Contrast [CT] --EKG --CMP --Magnesium --Phosphorus --CBC w/ differential --PTT --PT --Chest portable [RAD] --Glucose, POC routine --Sodium Chloride 1,000 ml IV 2,000 mls/hr --Tylenol 325mg tab 650 mg PO --Blood culture --Urine culture --Reevaluation -Patient was found to be febrile. Initiated work up for sepsis. Lactate at 1.0 and White count elevated at 17.6 11:11 CXR FINDINGS: LUNGS: Prominence of pulmonary vasculature may be secondary to low lung volumes, AP technique and/or pulmonary vascular congestion. Bilateral midlung platelike atelectasis. PLEURA: No significant pleural effusion identified, no pneumothorax apparent. CARDIOVASCULAR: Atherosclerotic aortic calcifications. Cardiomediastinal silhouette stably prominent. OSSEOUS STRUCTURES: Unchanged. VISUALIZED UPPER ABDOMEN: Normal. OTHER FINDINGS: None. IMPRESSION: Prominence of the pulmonary vasculature may be secondary to low lung volumes, AP technique and/or pulmonary vascular congestion. Bilateral mid lung platelike atelectasis. 12:[address] FINDINGS: LOWER THORAX: Bibasilar atelectasis/ scarring. Cardiomegaly coronary arterial and valvular calcifications. LIVER: Unremarkable. No gross lesion or ductal dilatation. GALLBLADDER AND BILE DUCTS: Unremarkable. PANCREAS: Unremarkable. No gross lesion or ductal dilatation. SPLEEN: Unremarkable. ADRENALS: Unremarkable. No mass. KIDNEYS AND URETERS: Unremarkable. No hydronephrosis. No solid mass. VASCULATURE: Unremarkable. No aortic aneurysm. BOWEL: Malpositioned gastrostomy tube, retracted into the anterior abdominal wall soft tissues. Colonic diverticulosis. No obstruction. No gross mural thickening. APPENDIX: Normal appendix. PERITONEUM: Inflammatory change within the ventral and left lateral abdominal wall soft tissues with subcutaneous air, probably related to malpositioned gastrostomy tube. No free fluid. No free air. LYMPH NODES: Unremarkable. No enlarged lymph nodes. BLADDER: Unremarkable. REPRODUCTIVE: Right adnexal multilocular cystic structure with central coarse calcification spanning 3.7 x 2.5 cm. BONES: Market degenerative changes. No acute fracture. OTHER FINDINGS: None. IMPRESSION: Malpositioned gastrostomy tube, retracted into the anterior abdominal wall soft tissues, with extensive subcutaneous air and inflammatory change within the ventral and left anterolateral abdominal wall soft tissues. No subcutaneous abscess or evidence of intraperitoneal free air or fluid. Right adnexal multilocular cystic structure with central coarse calcification measuring 3.7 x 2.5 cm. Additional findings as above. Findings conveyed to Dr. Mayer by Dr. Fraser at 12:[address] on 07/12/2017. Dr Anand aware of CT findings Admit for IV Abx and surg/GI eval Scribe Attestation: Documented by Jon Vigil, acting as a scribe for Layton Mayer MD Provider Scribe Attestation: All medical record entries made by the Scribe were at my direction and personally dictated by me. I have reviewed the chart and agree that the record accurately reflects my personal performance of the history, physical exam, medical decision making, and the department course for this patient. I have also personally directed, reviewed, and agree with the discharge instructions and disposition. Disposition - Clinical Impression Clinical Impression: Abdominal wall cellulitis, Sepsis, Complication of feeding tube - Patient ED Disposition Is Patient to be Admitted: Yes - Disposition Disposition Time: 12:50 Condition: FAIR - Pt Status Changed To: Hospital Disposition Of: Inpatient - Admit Certification Admit to Inpatient:: After my assessment, the patient will require hospitalization for at least two midnights. This is because of the severity of symptoms shown, intensity of services needed, and/or the medical risk in this patient being treated as an outpatient. - POA Present On Arrival: Poor Glycemic Control
[2017-07-12] MEDS ORDERED: Piperacillin/Tazobact 4.5 GM in Sodium Chloride 0.9% 100 ML IVPB STA (12:04)
[2017-07-12 12:05] LABS: ANISOCYTOSIS SLIGHT; BANDS 1 % (0-2); HYPOCHROMIC SLIGHT; LYMPHOCYTE 7 % (20-50); MONOCYTE 4 % (0-10); NEUTROPHIL 88 % (42-75); PLATELET ESTIMATE NORMAL (NORMAL); TOTAL CELLS COUNTED 100
[2017-07-12] MEDS ORDERED: Iohexol 300 100 ML IJ ONE (12:19)
--- NOTE | 2017-07-12 12:50 | CT ---
PROCEDURE: CT Abdomen and Pelvis with contrast HISTORY: L abdominal wall cellulitis/ r/o abscess; hx GT COMPARISON: None. TECHNIQUE: Contrast dose: 95 mL Omnipaque 300 Radiation dose: Total exam DLP = 955.5 mGy-cm. This CT exam was performed using one or more of the following dose reduction techniques: Automated exposure control, adjustment of the mA and/or kV according to patient size, and/or use of iterative reconstruction technique. FINDINGS: LOWER THORAX: Bibasilar atelectasis/ scarring. Cardiomegaly coronary arterial and valvular calcifications. LIVER: Unremarkable. No gross lesion or ductal dilatation. GALLBLADDER AND BILE DUCTS: Unremarkable. PANCREAS: Unremarkable. No gross lesion or ductal dilatation. SPLEEN: Unremarkable. ADRENALS: Unremarkable. No mass. KIDNEYS AND URETERS: Unremarkable. No hydronephrosis. No solid mass. VASCULATURE: Unremarkable. No aortic aneurysm. BOWEL: Malpositioned gastrostomy tube, retracted into the anterior abdominal wall soft tissues. Colonic diverticulosis. No obstruction. No gross mural thickening. APPENDIX: Normal appendix. PERITONEUM: Inflammatory change within the ventral and left lateral abdominal wall soft tissues with subcutaneous air, probably related to malpositioned gastrostomy tube. No free fluid. No free air. LYMPH NODES: Unremarkable. No enlarged lymph nodes. BLADDER: Unremarkable. REPRODUCTIVE: Right adnexal multilocular cystic structure with central coarse calcification spanning 3.7 x 2.5 cm. BONES: Market degenerative changes. No acute fracture. OTHER FINDINGS: None. IMPRESSION: Malpositioned gastrostomy tube, retracted into the anterior abdominal wall soft tissues, with extensive subcutaneous air and inflammatory change within the ventral and left anterolateral abdominal wall soft tissues. No subcutaneous abscess or evidence of intraperitoneal free air or fluid. Right adnexal multilocular cystic structure with central coarse calcification measuring 3.7 x 2.5 cm. Additional findings as above. Findings conveyed to Dr. Mayer by Dr. Fraser at 12:43 p.m. on 07/12/2017.
[2017-07-12 17:21] LABS: SQUAMOUS EPITHIAL 4 /hpf (0-5); URINE BACTERIA RARE (<OCC); URINE BILIRUBIN NEGATIVE (NEGATIVE); URINE BLOOD SMALL (NEGATIVE); URINE CLARITY TURBID (Clear); URINE COLOR YELLOW (YELLOW); URINE GLUCOSE (UA) 50 mg/dL (Normal); URINE LEUKOCYTE ESTERASE LARGE Leu/uL (Negative); URINE PROTEIN 100 mg/dL (NEGATIVE); URINE UROBILINOGEN 0.2-1.0 mg/dL (0.2-1.0); WBC CLUMPS MANY /hpf
[2017-07-12 17:32] VITALS: BMI 31.6
--- NOTE | 2017-07-12 18:37 | CARD ---
APPROVED REPORT EKG Measurement Heart [id number] <Conclusion> Sinus tachycardia, APCs Otherwise normal ECG
--- NOTE | 2017-07-12 20:46 | CP.PCM.CON ---
History of Present Illness - History of Present Illness History of Present Illness: 72 yo female admitted for abdominal wall swelling and malpositioned gastrostomy tube. Patient had CVA earlier this year. She has Alzheimers and is poor historian. Review of Systems - Review of Systems Systems not reviewed;Unavailable: Dementia Past Patient History - Past Medical History & Family History Past Medical History?: Yes - Past Social History Smoking Status: Never Smoked - CARDIAC Hx Hypercholesterolemia: Yes Hx Hypertension: Yes - PULMONARY Hx Respiratory Disorders: No - NEUROLOGICAL Hx Alzheimer's Disease: Yes - HEENT Hx HEENT Problems: No - RENAL Hx Chronic Kidney Disease: No - ENDOCRINE/METABOLIC Hx Endocrine Disorders: Yes Hx Diabetes Mellitus Type 2: Yes - HEMATOLOGICAL/ONCOLOGICAL Hx Blood Disorders: No Hx Human Immunodeficiency Virus (HIV): No - INTEGUMENTARY Hx Dermatological Problems: Yes Other/Comment: ulcers noted on bilateral great toes - MUSCULOSKELETAL/RHEUMATOLOGICAL Hx Musculoskeletal Disorders: No Hx Falls: No Other/Comment: let foot ulcer - GASTROINTESTINAL Hx Gastrointestinal Disorders: Yes Hx Gastroesophageal Reflux: Yes Hx Hemorrhoids: Yes - GENITOURINARY/GYNECOLOGICAL Hx Genitourinary Disorders: No - PSYCHIATRIC Hx Psychophysiologic Disorder: No Hx Substance Use: No - SURGICAL HISTORY Hx Surgeries: No Other/Comment: abdominal PEG tube - ANESTHESIA Hx Anesthesia: Yes Hx Anesthesia Reactions: No Hx Malignant Hyperthermia: No Meds Home Medications: Home Medication List Medication Instructions Recorded Confirmed Type Insulin Detemir [Levemir] 35 units SC HS #0 vial 07/12/17 Rx Allergies/Adverse Reactions: Allergies Allergy/AdvReac Type Severity Reaction Status Date / Time oxycodone Allergy RASH Verified 07/12/17 10:15 - Medications Medications: Current Medications Acetaminophen (Tylenol 325mg Tab) 650 mg PO Q6 PRN PRN Reason: fever > 100.4 Amlodipine Besylate (Norvasc) 5 mg PO DAILY [facility] Aspirin (Ecotrin) 81 mg PO DAILY [facility] Atorvastatin Calcium (Lipitor) 40 mg PO HS [facility] Clopidogrel Bisulfate (Plavix) 75 mg PO DAILY [facility] Enalapril Maleate (Vasotec) 2.5 mg PO BID [facility] Last Admin: 07/12/17 17:27 Dose: 2.5 mg Enoxaparin Sodium (Lovenox) 40 mg SC DAILY [facility] PRN Reason: Protocol Ergocalciferol (Drisdol 50,000 Intl Units Cap) 1 cap PO QWK [facility] Vancomycin HCl 1 gm/ Sodium (Chloride) 250 mls @ 250 mls/hr IVPB DAILY [facility] PRN Reason: Protocol Piperacillin Sod/Tazobactam (Sod 4.5 gm/ Sodium Chloride) 100 mls @ 100 mls/hr IVPB Q8 [facility] PRN Reason: Protocol Labetalol HCl (Trandate) 100 mg PO BID [facility] Last Admin: 07/12/17 17:27 Dose: 100 mg Pantoprazole Sodium (Protonix Ec Tab) 40 mg PO DAILY [facility] Repaglinide (Prandin) 1 mg PO TID [facility] Last Admin: 07/12/17 17:26 Dose: 1 mg Sitagliptin Phosphate (Januvia) 50 mg PO BID [facility] Last Admin: 07/12/17 17:25 Dose: 50 mg Physical Exam - Constitutional Appears: No Acute Distress - Head Exam Head Exam: ATRAUMATIC - Eye Exam Eye Exam: Normal appearance - ENT Exam ENT Exam: Mucous Membranes Moist, Normal Exam - Respiratory Exam Respiratory Exam: Clear to Auscultation Bilateral - Cardiovascular Exam Cardiovascular Exam: REGULAR RHYTHM, +S1, +S2 - GI/Abdominal Exam GI & Abdominal Exam: Normal Bowel Sounds, Soft Additional comments: Abdominal wall swellling. Exudate around gastrostomy tube. Results - Vital Signs Recent Vital Signs: Last Vital Signs Temp 98.1 F 07/12/17 20:02 Pulse 96 H 07/12/17 20:02 Resp 20 07/12/17 20:02 BP 151/70 H 07/12/17 20:02 Pulse Ox 95 07/12/17 20:02 - Labs Result Diagrams: 07/12/17 10:50 07/12/17 10:50 Labs: Laboratory Results - last 24 hr 07/12/17 07/12/17 07/12/17 10:50 10:50 10:50 WBC 17.6 H D RBC 3.80 Hgb 11.0 L Hct 33.8 L MCV 89.0 MCH 29.1 MCHC 32.7 L RDW 16.0 H Plt Count 343 D MPV 8.8 Neut % (Auto) 87.4 H Lymph % (Auto) 5.8 L [place] % (Auto) 5.6 Eos % (Auto) 0.7 Baso % (Auto) 0.5 Neut # (Auto) 15.4 H Lymph # (Auto) 1.0 [place] # (Auto) 1.0 H Eos # (Auto) 0.1 Baso # (Auto) 0.1 Neutrophils % (Manual) 88 H Band Neutrophils % 1 Lymphocytes % (Manual) 7 L Monocytes % (Manual) 4 Platelet Estimate Normal Hypochromasia (manual) Slight Anisocytosis (manual) Slight PT 13.5 H INR 1.2 APTT 20.8 L pO2 VBG pH VBG pCO2 VBG HCO3 VBG Total CO2 VBG O2 Sat (Calc) VBG Base Excess VBG Potassium Glucose Lactate FiO2 Sodium 136 Potassium 4.2 Chloride 97 L Carbon Dioxide 28 Anion Gap 15 BUN 25 H Creatinine 0.7 Est GFR ( Amer) > 60 Est GFR (Non-Af Amer) > 60 POC Glucose (mg/dL) Random Glucose 117 H Calcium 9.3 Phosphorus 3.4 Magnesium 2.0 Total Bilirubin 0.8 AST 19 ALT 19 Alkaline Phosphatase 108 Total Protein 8.3 H Albumin 3.7 Globulin 4.6 H Albumin/Globulin Ratio 0.8 L Venous Blood Potassium Urine Color Urine Clarity Urine pH Ur Specific [place] Urine Protein Urine Glucose (UA) Urine Ketones Urine Blood Urine Nitrate Urine Bilirubin Urine Urobilinogen Ur Leukocyte Esterase Urine RBC (Auto) Urine WBC Clumps (Auto) Urine Microscopic WBC Ur Squamous Epith Cells Urine Bacteria 07/12/17 07/12/17 07/12/17 10:52 10:59 16:25 WBC RBC Hgb Hct MCV MCH MCHC RDW Plt Count MPV Neut % (Auto) Lymph % (Auto) [place] % (Auto) Eos % (Auto) Baso % (Auto) Neut # (Auto) Lymph # (Auto) [place] # (Auto) Eos # (Auto) Baso # (Auto) Neutrophils % (Manual) Band Neutrophils % Lymphocytes % (Manual) Monocytes % (Manual) Platelet Estimate Hypochromasia (manual) Anisocytosis (manual) PT INR APTT pO2 36 VBG pH 7.43 VBG pCO2 46 VBG HCO3 28.4 VBG Total CO2 31.9 H VBG O2 Sat (Calc) 69.4 H VBG Base Excess 5.4 H VBG Potassium 4.2 Glucose 113 H Lactate 1.0 FiO2 21.0 Sodium 134.0 Potassium Chloride 100.0 Carbon Dioxide Anion Gap BUN Creatinine Est GFR ( Amer) Est GFR (Non-Af Amer) POC Glucose (mg/dL) 108 100 Random Glucose Calcium Phosphorus Magnesium Total Bilirubin AST ALT Alkaline Phosphatase Total Protein Albumin Globulin Albumin/Globulin Ratio Venous Blood Potassium 4.2 Urine Color Urine Clarity Urine pH Ur Specific [place] Urine Protein Urine Glucose (UA) Urine Ketones Urine Blood Urine Nitrate Urine Bilirubin Urine Urobilinogen Ur Leukocyte Esterase Urine RBC (Auto) Urine WBC Clumps (Auto) Urine Microscopic WBC Ur Squamous Epith Cells Urine Bacteria 07/12/17 17:04 WBC RBC Hgb Hct MCV MCH MCHC RDW Plt Count MPV Neut % (Auto) Lymph % (Auto) [place] % (Auto) Eos % (Auto) Baso % (Auto) Neut # (Auto) Lymph # (Auto) [place] # (Auto) Eos # (Auto) Baso # (Auto) Neutrophils % (Manual) Band Neutrophils % Lymphocytes % (Manual) Monocytes % (Manual) Platelet Estimate Hypochromasia (manual) Anisocytosis (manual) PT INR APTT pO2 VBG pH VBG pCO2 VBG HCO3 VBG Total CO2 VBG O2 Sat (Calc) VBG Base Excess VBG Potassium Glucose Lactate FiO2 Sodium Potassium Chloride Carbon Dioxide Anion Gap BUN Creatinine Est GFR ( Amer) Est GFR (Non-Af Amer) POC Glucose (mg/dL) Random Glucose Calcium Phosphorus Magnesium Total Bilirubin AST ALT Alkaline Phosphatase Total Protein Albumin Globulin Albumin/Globulin Ratio Venous Blood Potassium Urine Color Yellow Urine Clarity Turbid Urine pH 6.0 Ur Specific [place] 1.036 H Urine Protein 100 Urine Glucose (UA) 50 Urine Ketones Negative Urine Blood Small Urine Nitrate Negative Urine Bilirubin Negative Urine Urobilinogen 0.2-1.0 Ur Leukocyte Esterase Large Urine RBC (Auto) 36 H Urine WBC Clumps (Auto) Many H Urine Microscopic WBC 1236 H Ur Squamous Epith Cells 4 Urine Bacteria Rare Assessment & Plan (1) Cellulitis Assessment and Plan: CT demonstrates gastrotomy tube in abdominal wall. Gtube removed and covered with dressing. Continue IV anibiotics. Follow patient's eating pattern and if able to ingest adequately will not need replacement. Otherwise will perform PEG once abdominal wall swelling improves. Status: Acute
[2017-07-12] MEDS ORDERED: Piperacillin/Tazobact 4.5 GM in Sodium Chloride 0.9% 100 ML IVPB SCH (22:00)
[2017-07-13] MEDS: Piperacillin/Tazobact 4.5 GM in Sodium Chloride 0.9% 100 ML IVPB SCH ×3 (05:21→21:31)
[2017-07-13 05:45] LABS: HEMOGLOBIN 8.7 g/dL (12.0-16.0); MEAN CELL VOLUME 89.6 fl (81.0-99.0); MEAN CORPUSCULAR HGB CONC 32.3 g/dL (33.0-37.0); RBC 3.01 Mil/uL (3.80-5.20); RED CELL DISTRIBUTION WIDTH 16.6 % (11.5-14.5); WHITE BLOOD COUNT 12.5 K/uL (4.8-10.8)
[2017-07-13 05:59] LABS: BLOOD UREA NITROGEN 21 mg/dl (7-17); CALCIUM 8.4 mg/dL (8.4-10.2); GFR AFRICAN-AMERICAN > 60; GFR NON-AFRICAN AMERICAN > 60
--- NOTE | 2017-07-13 07:14 | CP.PCM.HP ---
<Idalmis Lunsford - Last Filed: 07/13/17 16:48> History of Present Illness - History of Present Illness History of Present Illness: 72 yo ,f, PMhx/o DM, CVA, HTN, Alzheimer who was sent to ED fron custodial with noticed redness, swelling and pain around the G tube associated with fever on arrival to Ed. Her thinks this has been for several days. Patient required a G tube after CVA earlier this year. Patietns denies vomiting , diarrhea, chest pain, SOB. Patient seen and examined bedside today with Dr gibbons, patient sitting on chair, reports feeling better and able to eat. Reports she does not need any more the peg tube. Denies n,v,d,abd pain, dysuria. PMSH: DM, HTN, HLD FH: DENIES SH: denies ETOH, IVDU, Tobacco Meds: unable to complete at this time NKDA Ed course Ct Abd: Malpositioned gastrostomy tube, retracted into the anterior abdominal wall soft tissues, with extensive subcutaneous air and inflammatory change within the ventral and left anterolateral abdominal wall soft tissues. No subcutaneous abscess or evidence of intraperitoneal free air or fluid. CXR: no infiltrates VS: fever, tachycardia Labs: leukocytosis WBC: 17,6 Ua: hematuria, leukocyturia, leukocyte sterase positive. Present on Admission - Present on Admission Any Indicators Present on Admission: No History of DVT/PE: No History of Uncontrolled Diabetes: No Urinary Catheter: No Decubitus Ulcer Present: No Review of Systems - Review of Systems All systems: reviewed and no additional remarkable complaints except - Respiratory Respiratory: As Per HPI - Gastrointestinal Gastrointestinal: As Per HPI - Integumentary Integumentary: Erythema, Rash, Swelling Past Patient History - Past Medical History & Family History Past Medical History?: Yes - Past Social History Smoking Status: Never Smoked - CARDIAC Hx Hypercholesterolemia: Yes Hx Hypertension: Yes - PULMONARY Hx Respiratory Disorders: No - NEUROLOGICAL Hx Alzheimer's Disease: Yes - HEENT Hx HEENT Problems: No - RENAL Hx Chronic Kidney Disease: No - ENDOCRINE/METABOLIC Hx Endocrine Disorders: Yes Hx Diabetes Mellitus Type 2: Yes - HEMATOLOGICAL/ONCOLOGICAL Hx Blood Disorders: No Hx Human Immunodeficiency Virus (HIV): No - INTEGUMENTARY Hx Dermatological Problems: Yes Other/Comment: ulcers noted on bilateral great toes - MUSCULOSKELETAL/RHEUMATOLOGICAL Hx Musculoskeletal Disorders: No Hx Falls: No Other/Comment: let foot ulcer - GASTROINTESTINAL Hx Gastrointestinal Disorders: Yes Hx Gastroesophageal Reflux: Yes Hx Hemorrhoids: Yes - GENITOURINARY/GYNECOLOGICAL Hx Genitourinary Disorders: No - PSYCHIATRIC Hx Psychophysiologic Disorder: No Hx Substance Use: No - SURGICAL HISTORY Hx Surgeries: No Other/Comment: abdominal PEG tube - ANESTHESIA Hx Anesthesia: Yes Hx Anesthesia Reactions: No Hx Malignant Hyperthermia: No Meds Home Medications: Home Medication List Medication Instructions Recorded Confirmed Type Insulin Detemir [Levemir] 35 units SC HS #0 vial 07/12/17 Rx Allergies/Adverse Reactions: Allergies Allergy/AdvReac Type Severity Reaction Status Date / Time oxycodone Allergy RASH Verified 07/12/17 10:15 Physical Exam - Constitutional Appears: Non-toxic, No Acute Distress - Head Exam Head Exam: ATRAUMATIC, NORMOCEPHALIC - Eye Exam Eye Exam: Normal appearance - ENT Exam ENT Exam: Mucous Membranes Moist - Neck Exam Neck exam: Positive for: Normal Inspection - Respiratory Exam Respiratory Exam: Clear to Auscultation Bilateral. absent: Rales, Rhonchi, Wheezes - Cardiovascular Exam Cardiovascular Exam: REGULAR RHYTHM, +S1, +S2 - GI/Abdominal Exam GI & Abdominal Exam: Guarding, Normal Bowel Sounds, Soft. absent: Tenderness Additional comments: There is area of cellulitis around where peg tube was that is improving. - Extremities Exam Extremities exam: Positive for: normal inspection. Negative for: pedal edema - Back Exam Back exam: NORMAL INSPECTION - Neurological Exam Neurological exam: Alert, Oriented x3 - Psychiatric Exam Psychiatric exam: Normal Affect, Normal Mood - Skin Skin Exam: Erythema, Rash Results - Vital Signs Recent Vital Signs: Last Vital Signs Temp 99.6 F 07/13/17 05:30 Pulse 99 H 07/13/17 05:30 Resp 18 07/13/17 05:30 BP 140/66 07/13/17 05:30 Pulse Ox 95 07/13/17 05:30 - Labs Result Diagrams: 07/13/17 04:20 07/13/17 04:20 Labs: Laboratory Results - last 24 hr 07/12/17 07/12/17 07/12/17 10:50 10:50 10:50 WBC 17.6 H D RBC 3.80 Hgb 11.0 L Hct 33.8 L MCV 89.0 MCH 29.1 MCHC 32.7 L RDW 16.0 H Plt Count 343 D MPV 8.8 Neut % (Auto) 87.4 H Lymph % (Auto) 5.8 L [place] % (Auto) 5.6 Eos % (Auto) 0.7 Baso % (Auto) 0.5 Neut # (Auto) 15.4 H Lymph # (Auto) 1.0 [place] # (Auto) 1.0 H Eos # (Auto) 0.1 Baso # (Auto) 0.1 Neutrophils % (Manual) 88 H Band Neutrophils % 1 Lymphocytes % (Manual) 7 L Monocytes % (Manual) 4 Platelet Estimate Normal Hypochromasia (manual) Slight Anisocytosis (manual) Slight PT 13.5 H INR 1.2 APTT 20.8 L pO2 VBG pH VBG pCO2 VBG HCO3 VBG Total CO2 VBG O2 Sat (Calc) VBG Base Excess VBG Potassium Glucose Lactate FiO2 Sodium 136 Potassium 4.2 Chloride 97 L Carbon Dioxide 28 Anion Gap 15 BUN 25 H Creatinine 0.7 Est GFR ( Amer) > 60 Est GFR (Non-Af Amer) > 60 POC Glucose (mg/dL) Random Glucose 117 H Calcium 9.3 Phosphorus 3.4 Magnesium 2.0 Total Bilirubin 0.8 AST 19 ALT 19 Alkaline Phosphatase 108 Total Protein 8.3 H Albumin 3.7 Globulin 4.6 H Albumin/Globulin Ratio 0.8 L Venous Blood Potassium Urine Color Urine Clarity Urine pH Ur Specific Sledge Urine Protein Urine Glucose (UA) Urine Ketones Urine Blood Urine Nitrate Urine Bilirubin Urine Urobilinogen Ur Leukocyte Esterase Urine RBC (Auto) Urine WBC Clumps (Auto) Urine Microscopic WBC Ur Squamous Epith Cells Urine Bacteria 07/12/17 07/12/17 07/12/17 10:52 10:59 16:25 WBC RBC Hgb Hct MCV MCH MCHC RDW Plt Count MPV Neut % (Auto) Lymph % (Auto) [place] % (Auto) Eos % (Auto) Baso % (Auto) Neut # (Auto) Lymph # (Auto) [place] # (Auto) Eos # (Auto) Baso # (Auto) Neutrophils % (Manual) Band Neutrophils % Lymphocytes % (Manual) Monocytes % (Manual) Platelet Estimate Hypochromasia (manual) Anisocytosis (manual) PT INR APTT pO2 36 VBG pH 7.43 VBG pCO2 46 VBG HCO3 28.4 VBG Total CO2 31.9 H VBG O2 Sat (Calc) 69.4 H VBG Base Excess 5.4 H VBG Potassium 4.2 Glucose 113 H Lactate 1.0 FiO2 21.0 Sodium 134.0 Potassium Chloride 100.0 Carbon Dioxide Anion Gap BUN Creatinine Est GFR ( Amer) Est GFR (Non-Af Amer) POC Glucose (mg/dL) 108 100 Random Glucose Calcium Phosphorus Magnesium Total Bilirubin AST ALT Alkaline Phosphatase Total Protein Albumin Globulin Albumin/Globulin Ratio Venous Blood Potassium 4.2 Urine Color Urine Clarity Urine pH Ur Specific Sledge Urine Protein Urine Glucose (UA) Urine Ketones Urine Blood Urine Nitrate Urine Bilirubin Urine Urobilinogen Ur Leukocyte Esterase Urine RBC (Auto) Urine WBC Clumps (Auto) Urine Microscopic WBC Ur Squamous Epith Cells Urine Bacteria 07/12/17 07/12/17 07/13/17 17:04 21:07 04:20 WBC 12.5 H RBC 3.01 L Hgb 8.7 L D Hct 27.0 L MCV 89.6 MCH 29.0 MCHC 32.3 L RDW 16.6 H Plt Count 285 MPV Neut % (Auto) Lymph % (Auto) [place] % (Auto) Eos % (Auto) Baso % (Auto) Neut # (Auto) Lymph # (Auto) [place] # (Auto) Eos # (Auto) Baso # (Auto) Neutrophils % (Manual) Band Neutrophils % Lymphocytes % (Manual) Monocytes % (Manual) Platelet Estimate Hypochromasia (manual) Anisocytosis (manual) PT INR APTT pO2 VBG pH VBG pCO2 VBG HCO3 VBG Total CO2 VBG O2 Sat (Calc) VBG Base Excess VBG Potassium Glucose Lactate FiO2 Sodium Potassium Chloride Carbon Dioxide Anion Gap BUN Creatinine Est GFR ( Amer) Est GFR (Non-Af Amer) POC Glucose (mg/dL) 110 Random Glucose Calcium Phosphorus Magnesium Total Bilirubin AST ALT Alkaline Phosphatase Total Protein Albumin Globulin Albumin/Globulin Ratio Venous Blood Potassium Urine Color Yellow Urine Clarity Turbid Urine pH 6.0 Ur Specific Sledge 1.036 H Urine Protein 100 Urine Glucose (UA) 50 Urine Ketones Negative Urine Blood Small Urine Nitrate Negative Urine Bilirubin Negative Urine Urobilinogen 0.2-1.0 Ur Leukocyte Esterase Large Urine RBC (Auto) 36 H Urine WBC Clumps (Auto) Many H Urine Microscopic WBC 1236 H Ur Squamous Epith Cells 4 Urine Bacteria Rare 07/13/17 07/13/17 04:20 05:34 WBC RBC Hgb Hct MCV MCH MCHC RDW Plt Count MPV Neut % (Auto) Lymph % (Auto) [place] % (Auto) Eos % (Auto) Baso % (Auto) Neut # (Auto) Lymph # (Auto) [place] # (Auto) Eos # (Auto) Baso # (Auto) Neutrophils % (Manual) Band Neutrophils % Lymphocytes % (Manual) Monocytes % (Manual) Platelet Estimate Hypochromasia (manual) Anisocytosis (manual) PT INR APTT pO2 VBG pH VBG pCO2 VBG HCO3 VBG Total CO2 VBG O2 Sat (Calc) VBG Base Excess VBG Potassium Glucose Lactate FiO2 Sodium 139 Potassium 3.6 Chloride 103 Carbon Dioxide 24 Anion Gap 16 BUN 21 H Creatinine 0.7 Est GFR ( Amer) > 60 Est GFR (Non-Af Amer) > 60 POC Glucose (mg/dL) 122 H Random Glucose 137 H Calcium 8.4 Phosphorus Magnesium Total Bilirubin AST ALT Alkaline Phosphatase Total Protein Albumin Globulin Albumin/Globulin Ratio Venous Blood Potassium Urine Color Urine Clarity Urine pH Ur Specific Sledge Urine Protein Urine Glucose (UA) Urine Ketones Urine Blood Urine Nitrate Urine Bilirubin Urine Urobilinogen Ur Leukocyte Esterase Urine RBC (Auto) Urine WBC Clumps (Auto) Urine Microscopic WBC Ur Squamous Epith Cells Urine Bacteria Assessment & Plan - Assessment and Plan (Free Text) Plan: 72 yo ,f, PMhx/o DM, CVA, HTN, Alzheimer who was sent to ED from custodial with noticed redness, swelling and pain around the G tube admitted for peg tube malfunctioning, abd wall cellulitis, sepsis 1) Sepsis -SIRS+ abd wall cellulitis+UTI -c/w vancomycin, Zosyn -leukocytosis trending down 17.6 -12.5 2) Cellulitis abdominal wall Secondary to peg tube malfunctioning -c/w abx 3) Peg tube malfunctioning CT demonstrates gastrotomy tube in abdominal wall -GI consult appreciated: Gtube removed and covered with dressing. and if able to ingest adequately will not need replacement. Otherwise will perform PEG once abdominal wall swelling improves. 4) UTI UA: hematuria, leukocyturia, leukocyte sterase positive -c/w zosyn, vanco. -f/u urine cx 5) DM -c/w Januvia 6)HTN -c/w amlodipine, vasotec, labetalol 7) DVT Prophylaxis -Lovenox 40 mg sc daily <DiliaSebastián K - Last Filed: 07/21/17 20:20> Results - Vital Signs Recent Vital Signs: Last Vital Signs Temp 98.2 F 07/21/17 19:47 Pulse 75 07/21/17 19:47 Resp 17 07/21/17 19:47 BP 126/64 07/21/17 19:47 Pulse Ox 94 L 07/21/17 19:47 - Labs Result Diagrams: 07/21/17 06:30 07/21/17 06:30 Labs: Laboratory Results - last 24 hr 07/20/17 07/20/17 07/20/17 10:08 16:15 21:13 WBC RBC Hgb Hct MCV MCH MCHC RDW Plt Count MPV Neut % (Auto) Lymph % (Auto) [place] % (Auto) Eos % (Auto) Baso % (Auto) Neut # (Auto) Lymph # (Auto) [place] # (Auto) Eos # (Auto) Baso # (Auto) PT INR APTT Sodium Potassium Chloride Carbon Dioxide Anion Gap BUN Creatinine Est GFR ( Amer) Est GFR (Non-Af Amer) POC Glucose (mg/dL) 158 H 188 H Random Glucose Calcium Vancomycin Trough Blood Type A POSITIVE Antibody Screen Negative Crossmatch See Detail BBK History Checked Patient has bt 07/21/17 07/21/17 07/21/17 05:49 06:30 06:30 WBC 8.5 RBC 3.51 L Hgb 10.3 L D Hct 31.1 L MCV 88.4 MCH 29.2 MCHC 33.0 RDW 16.4 H Plt Count 357 MPV 8.5 Neut % (Auto) 76.0 H Lymph % (Auto) 15.3 L [place] % (Auto) 6.1 Eos % (Auto) 2.2 Baso % (Auto) 0.4 Neut # (Auto) 6.4 Lymph # (Auto) 1.3 [place] # (Auto) 0.5 Eos # (Auto) 0.2 Baso # (Auto) 0.0 PT INR APTT Sodium 141 Potassium 4.0 Chloride 102 Carbon Dioxide 29 Anion Gap 14 BUN 13 Creatinine 0.6 L Est GFR ( Amer) > 60 Est GFR (Non-Af Amer) > 60 POC Glucose (mg/dL) 188 H Random Glucose 180 H Calcium 8.8 Vancomycin Trough Blood Type Antibody Screen Crossmatch BBK History Checked 07/21/17 07/21/17 07/21/17 06:30 09:00 10:54 WBC RBC Hgb Hct MCV MCH MCHC RDW Plt Count MPV Neut % (Auto) Lymph % (Auto) [place] % (Auto) Eos % (Auto) Baso % (Auto) Neut # (Auto) Lymph # (Auto) [place] # (Auto) Eos # (Auto) Baso # (Auto) PT 11.7 INR 1.1 APTT 26.2 Sodium Potassium Chloride Carbon Dioxide Anion Gap BUN Creatinine Est GFR ( Amer) Est GFR (Non-Af Amer) POC Glucose (mg/dL) 177 H Random Glucose Calcium Vancomycin Trough 5.4 Blood Type Antibody Screen Crossmatch BBK History Checked Assessment & Plan - Assessment and Plan (Free Text) Assessment: Patient was personally seen and examined by me in rounds with residents. Available labs and diagnostic data reviewed. Case, Patient's condition and management plan discussed with residents in rounds. Agree with resident's progress note. Plan: As ordered.
[2017-07-13] MEDS: Enoxaparin 40 mg Syringe SC SCH (09:27)
[2017-07-13] MEDS: Pantoprazole 40 mg EC Tab PO SCH (09:28)
--- NOTE | 2017-07-13 18:43 | CP.PCM.PN ---
Subjective - Date & Time of Evaluation Date of Evaluation: 07/13/17 Time of Evaluation: 18:40 - Subjective Subjective: Patient eating well. Had diarrhea earlier. Objective - Vital Signs/Intake and Output Vital Signs (last 24 hours): Temp Pulse Resp BP Pulse Ox 97.8 F 84 20 152/75 H 96 07/13/17 16:26 07/13/17 16:26 07/13/17 16:26 07/13/17 16:26 07/13/17 16:26 Intake and Output: 07/13/17 07/13/17 06:59 18:59 Intake Total 3060 900 Output Total 1 Balance 3059 900 - Medications Medications: Current Medications Acetaminophen (Tylenol 325mg Tab) 650 mg PO Q6 PRN PRN Reason: fever > 100.4 Amlodipine Besylate (Norvasc) 5 mg PO DAILY [facility] Last Admin: 07/13/17 09:26 Dose: 5 mg Aspirin (Ecotrin) 81 mg PO DAILY [facility] Last Admin: 07/13/17 09:29 Dose: 81 mg Atorvastatin Calcium (Lipitor) 40 mg PO HS [facility] Last Admin: 07/12/17 21:09 Dose: 40 mg Bismuth Subsalicylate (Pepto-Bismol) 524 mg PO Q4 PRN PRN Reason: Diarrhea Clopidogrel Bisulfate (Plavix) 75 mg PO DAILY [facility] Last Admin: 07/13/17 09:28 Dose: 75 mg Enalapril Maleate (Vasotec) 2.5 mg PO BID [facility] Last Admin: 07/13/17 16:22 Dose: 2.5 mg Enoxaparin Sodium (Lovenox) 40 mg SC DAILY [facility] PRN Reason: Protocol Last Admin: 07/13/17 09:27 Dose: 40 mg Ergocalciferol (Drisdol 50,000 Intl Units Cap) 1 cap PO QWK [facility] Vancomycin HCl 1 gm/ Sodium (Chloride) 250 mls @ 250 mls/hr IVPB DAILY [facility] PRN Reason: Protocol Last Admin: 07/13/17 09:30 Dose: 250 mls/hr Piperacillin Sod/Tazobactam (Sod 4.5 gm/ Sodium Chloride) 100 mls @ 100 mls/hr IVPB Q8@0600,1400,2200 [facility] PRN Reason: Protocol Last Admin: 07/13/17 13:22 Dose: 100 mls/hr Labetalol HCl (Trandate) 100 mg PO BID [facility] Last Admin: 07/13/17 16:22 Dose: 100 mg Pantoprazole Sodium (Protonix Ec Tab) 40 mg PO DAILY [facility] Last Admin: 07/13/17 09:28 Dose: 40 mg Repaglinide (Prandin) 1 mg PO TID [facility] Last Admin: 07/13/17 16:22 Dose: 1 mg Sitagliptin Phosphate (Januvia) 50 mg PO BID [facility] Last Admin: 07/13/17 16:22 Dose: 50 mg - Labs Labs: 07/13/17 04:20 07/13/17 04:20 PT 13.5 Seconds (9.8-13.1) H 07/12/17 10:50 INR 1.2 (0.9-1.2) 07/12/17 10:50 APTT 20.8 Seconds (25.6-37.1) L 07/12/17 10:50 - Head Exam Head Exam: ATRAUMATIC - ENT Exam ENT Exam: Normal Exam - Neck Exam Neck Exam: Full ROM - Cardiovascular Exam Cardiovascular Exam: REGULAR RHYTHM - GI/Abdominal Exam GI & Abdominal Exam: Soft, Normal Bowel Sounds Additional comments: Marked abdominal wall induration. Redness slightly better. WBC has come down somewhat. Continue current IV antibiotics Assessment and Plan (1) Cellulitis Assessment & Plan: Gastrostomy tube removed and does not need to be replaced . Continue IV antibiotics. Status: Acute
[2017-07-13] MEDS: Bismuth Subsalicylate 262 mg/15 ml Sus (240 ml) PO PRN (20:28)
[2017-07-14] MEDS: Piperacillin/Tazobact 4.5 GM in Sodium Chloride 0.9% 100 ML IVPB SCH ×3 (05:00→21:48)
[2017-07-14 05:50] LABS: HEMOGLOBIN 8.3 g/dL (12.0-16.0); MEAN CELL VOLUME 89.8 fl (81.0-99.0); MEAN CORPUSCULAR HGB CONC 32.3 g/dL (33.0-37.0); RBC 2.87 Mil/uL (3.80-5.20); RED CELL DISTRIBUTION WIDTH 16.5 % (11.5-14.5); WHITE BLOOD COUNT 9.9 K/uL (4.8-10.8)
[2017-07-14 06:26] LABS: ALB/GLOB RATIO 0.8 (1.0-2.1); ALBUMIN 3.1 g/dL (3.5-5.0); ALT/SGPT 28 U/L (9-52); AST/SGOT 14 U/L (14-36); BLOOD UREA NITROGEN 25 mg/dl (7-17); CALCIUM 8.2 mg/dL (8.4-10.2); GFR AFRICAN-AMERICAN > 60; GFR NON-AFRICAN AMERICAN > 60
[2017-07-14] MEDS: Enoxaparin 40 mg Syringe SC SCH (09:37)
[2017-07-14] MEDS: Pantoprazole 40 mg EC Tab PO SCH (09:39)
[2017-07-14 09:43] LABS: IRON 22 ug/dL (37-170)
[2017-07-14 09:52] LABS: % IRON SATURATION 10 % (20-55); TOTAL IRON BINDING CAPACITY 219 ug/dL (250-450)
--- NOTE | 2017-07-14 10:12 | CP.PCM.PN ---
<Idalmis Lunsford - Last Filed: 07/14/17 11:18> Subjective - Date & Time of Evaluation Date of Evaluation: 07/14/17 Time of Evaluation: 07:05 - Subjective Subjective: Patient seen and examined bedside with Dr Dobbs, sitting on chair. no overnight events. Denies dizziness, lightheadedness, chest pain, SOB. noted Hgb 8.3 asymptomatic. will do FOBT Objective - Vital Signs/Intake and Output Vital Signs (last 24 hours): Temp Pulse Resp BP Pulse Ox 97.9 F 67 20 138/63 96 07/14/17 08:26 07/14/17 09:37 07/14/17 08:26 07/14/17 09:37 07/14/17 08:26 - Medications Medications: Current Medications Acetaminophen (Tylenol 325mg Tab) 650 mg PO Q6 PRN PRN Reason: fever > 100.4 Amlodipine Besylate (Norvasc) 5 mg PO DAILY [facility] Last Admin: 07/14/17 09:37 Dose: 5 mg Aspirin (Ecotrin) 81 mg PO DAILY [facility] Last Admin: 07/14/17 09:36 Dose: 81 mg Atorvastatin Calcium (Lipitor) 40 mg PO HS [facility] Last Admin: 07/13/17 21:30 Dose: 40 mg Bismuth Subsalicylate (Pepto-Bismol) 524 mg PO Q4 PRN PRN Reason: Diarrhea Last Admin: 07/13/17 20:28 Dose: 524 mg Clopidogrel Bisulfate (Plavix) 75 mg PO DAILY [facility] Last Admin: 07/14/17 09:38 Dose: 75 mg Enalapril Maleate (Vasotec) 2.5 mg PO BID [facility] Last Admin: 07/14/17 09:40 Dose: 2.5 mg Enoxaparin Sodium (Lovenox) 40 mg SC DAILY [facility] PRN Reason: Protocol Last Admin: 07/14/17 09:37 Dose: 40 mg Ergocalciferol (Drisdol 50,000 Intl Units Cap) 1 cap PO QWK [facility] Vancomycin HCl 1 gm/ Sodium (Chloride) 250 mls @ 250 mls/hr IVPB DAILY [facility] PRN Reason: Protocol Last Admin: 07/14/17 09:49 Dose: 250 mls/hr Piperacillin Sod/Tazobactam (Sod 4.5 gm/ Sodium Chloride) 100 mls @ 100 mls/hr IVPB Q8@0600,1400,2200 [facility] PRN Reason: Protocol Last Admin: 07/14/17 05:00 Dose: 100 mls/hr Labetalol HCl (Trandate) 100 mg PO BID [facility] Last Admin: 07/14/17 09:39 Dose: 100 mg Pantoprazole Sodium (Protonix Ec Tab) 40 mg PO DAILY [facility] Last Admin: 07/14/17 09:39 Dose: 40 mg Repaglinide (Prandin) 1 mg PO TID [facility] Last Admin: 07/14/17 09:38 Dose: 1 mg Sitagliptin Phosphate (Januvia) 50 mg PO BID [facility] Last Admin: 07/14/17 09:37 Dose: 50 mg - Labs Labs: 07/14/17 05:35 07/14/17 05:35 PT 13.5 Seconds (9.8-13.1) H 07/12/17 10:50 INR 1.2 (0.9-1.2) 07/12/17 10:50 APTT 20.8 Seconds (25.6-37.1) L 07/12/17 10:50 - Constitutional Appears: Non-toxic, No Acute Distress - Head Exam Head Exam: ATRAUMATIC, NORMOCEPHALIC - Eye Exam Eye Exam: Normal appearance - ENT Exam ENT Exam: Mucous Membranes Moist - Neck Exam Neck Exam: Normal Inspection - Respiratory Exam Respiratory Exam: Clear to Ausculation Bilateral. absent: Rales, Rhonchi, Wheezes - Cardiovascular Exam Cardiovascular Exam: REGULAR RHYTHM, +S1, +S2 - GI/Abdominal Exam GI & Abdominal Exam: Soft, Normal Bowel Sounds Additional comments: skin over abd wall with improving area of cellulitis. no TD to palpation, dressing C/D/I - Extremities Exam Extremities Exam: Normal Inspection. absent: Full ROM, Pedal Edema - Back Exam Back Exam: NORMAL INSPECTION - Neurological Exam Neurological Exam: Alert, Awake, Oriented x3 - Psychiatric Exam Psychiatric exam: Normal Affect, Normal Mood - Skin Skin Exam: Pallor Assessment and Plan - Assessment and Plan (Free Text) Plan: 72 yo ,f, PMhx/o DM, CVA, HTN, Alzheimer who was admitted for for peg tube malfunctioning, abd wall cellulitis, sepsis 1) Sepsis -improving -SIRS+ abd wall cellulitis+UTI --leukocytosis trending down 17.6 -12.5-9.9 -c/w vancomycin, Zosyn 2) Cellulitis abdominal wall -resolving Secondary to peg tube malfunctioning -c/w abx 3) Peg tube malfunctioning -GI consult appreciated: Gtube removed. wont need more Peg tube. c/w abx 4) UTI UA: hematuria, leukocyturia, leukocyte sterase positive -c/w zosyn, vanco. -f/u urine cx 5) DM -c/w Januvia 6)HTN -c/w amlodipine, vasotec, labetalol 7) DVT Prophylaxis -Lovenox 40 mg sc daily <Sebastián Dobbs K - Last Filed: 07/21/17 20:23> Objective - Vital Signs/Intake and Output Vital Signs (last 24 hours): Temp Pulse Resp BP Pulse Ox 98.2 F 75 17 126/64 94 L 07/21/17 19:47 07/21/17 19:47 07/21/17 19:47 07/21/17 19:47 07/21/17 19:47 Intake and Output: 07/21/17 07/22/17 18:59 06:59 Intake Total 1100 Balance 1100 - Medications Medications: Current Medications Acetaminophen (Tylenol 325mg Tab) 650 mg PO Q6 PRN PRN Reason: fever > 100.4 Last Admin: 07/15/17 00:26 Dose: 650 mg Acetaminophen (Tylenol 325mg Tab) 325 mg PO Q4 PRN PRN Reason: Pain, Mild (1-3) Last Admin: 07/15/17 21:18 Dose: 325 mg Amlodipine Besylate (Norvasc) 10 mg PO DAILY [facility] Last Admin: 07/21/17 08:28 Dose: Not Given Aspirin (Ecotrin) 81 mg PO DAILY [facility] Last Admin: 07/20/17 08:26 Dose: 81 mg Atorvastatin Calcium (Lipitor) 40 mg PO HS [facility] Last Admin: 07/20/17 21:54 Dose: 40 mg Bismuth Subsalicylate (Pepto-Bismol) 524 mg PO Q4 PRN PRN Reason: Diarrhea Last Admin: 07/17/17 08:53 Dose: 524 mg Clopidogrel Bisulfate (Plavix) 75 mg PO DAILY [facility] Last Admin: 07/20/17 08:27 Dose: 75 mg Cyanocobalamin (Vitamin B12 1000 Mcg/Ml Inj) 1,000 mcg SC DAILY [facility] Last Admin: 07/21/17 08:29 Dose: 1,000 mcg Dextrose (Dextrose 50% Inj) 0 ml IV STAT PRN; Protocol PRN Reason: Hypoglycemia Protocol Dextrose (Glutose 15) 0 gm PO ONCE PRN; Protocol PRN Reason: Hypoglycemia Protocol Enalapril Maleate (Vasotec) 2.5 mg PO BID [facility] Last Admin: 07/21/17 16:19 Dose: Not Given Enoxaparin Sodium (Lovenox) 40 mg SC DAILY [facility] PRN Reason: Protocol Last Admin: 07/20/17 08:26 Dose: Not Given Epoetin Deejay (Procrit) 10,000 unit SC TTS [facility] Last Admin: 07/21/17 08:32 Dose: 10,000 unit Ergocalciferol (Drisdol 50,000 Intl Units Cap) 1 cap PO QWK [facility] Last Admin: 07/20/17 08:28 Dose: 1 cap Glucagon (Glucagen Diagnostic Kit) 0 mg IM STAT PRN; Protocol PRN Reason: Hypoglycemia Protocol Vancomycin HCl 1 gm/ Sodium (Chloride) 250 mls @ 250 mls/hr IVPB DAILY [facility] PRN Reason: Protocol Last Admin: 07/21/17 08:32 Dose: 250 mls/hr Iron Sucrose 100 mg/ Sodium (Chloride) 105 mls @ 105 mls/hr IVPB DAILY [facility] Last Admin: 07/21/17 10:44 Dose: 105 mls/hr Piperacillin Sod/Tazobactam (Sod 4.5 gm/ Sodium Chloride) 100 mls @ 100 mls/hr IVPB Q8 [facility] PRN Reason: Protocol Last Admin: 07/21/17 16:20 Dose: 100 mls/hr Fluconazole (Diflucan Iv 100 Mg/50 Ml Ns) 50 mls @ 50 mls/hr IVPB DAILY [facility] PRN Reason: Protocol Last Admin: 07/21/17 10:43 Dose: 50 mls/hr Insulin Human Lispro (Humalog) 0 units SC ACHS [facility] PRN Reason: Protocol Last Admin: 07/21/17 16:18 Dose: Not Given Labetalol HCl (Trandate) 200 mg PO BID [facility] Last Admin: 07/21/17 16:19 Dose: Not Given Lactobacillus Acidophilus (Bacid Acidophilus) 1 cap PO BID [facility] Last Admin: 07/21/17 16:18 Dose: Not Given Metformin HCl (Glucophage) 500 mg PO BIDWM [facility] Last Admin: 07/21/17 16:18 Dose: Not Given Pantoprazole Sodium (Protonix Ec Tab) 40 mg PO DAILY [facility] Last Admin: 07/21/17 08:28 Dose: Not Given Repaglinide (Prandin) 1 mg PO TID [facility] Last Admin: 07/21/17 16:19 Dose: Not Given Sertraline HCl (Zoloft) 12.5 mg PO DAILY [facility] Last Admin: 07/21/17 08:29 Dose: Not Given Sitagliptin Phosphate (Januvia) 50 mg PO BID [facility] Last Admin: 07/21/17 16:18 Dose: Not Given - Labs Labs: 07/21/17 06:30 07/21/17 06:30 PT 11.7 Seconds (9.8-13.1) 07/21/17 09:00 INR 1.1 (0.9-1.2) 07/21/17 09:00 APTT 26.2 Seconds (25.6-37.1) 07/21/17 09:00 Assessment and Plan - Assessment and Plan (Free Text) Assessment: Patient was personally seen and examined by me in rounds with residents. Available labs and diagnostic data reviewed. Case, Patient's condition and management plan discussed with residents in rounds. Agree with resident's documentation. Plan: As ordered. Sebastián Dobbs MD
[2017-07-14] MEDS ORDERED: Glucagon Recombinant 1 mg Inj IM PRN (15:56)
[2017-07-14] MEDS ORDERED: Dextrose 50% SYRINGE Inj (50 ml) IV PRN (15:56)
[2017-07-14] MEDS: Insulin Lispro (humaLOG) 100 Units/ml Inj SC SCH ×2 (16:08→21:50)
--- NOTE | 2017-07-14 17:26 | US ---
PROCEDURE: Limited ultrasound of the abdominal wall HISTORY: R/O abscess COMPARISON: None TECHNIQUE: Targeted limited ultrasound of the anterior abdominal wall was performed. FINDINGS: There is diffuse subcutaneous edema. At the site of G-tube tract there is a 1.6 x 1.4 x 1.7 cm ill-defined hypoechoic area. No abscess. IMPRESSION: 1.6 x 1.4 x 1.7 cm small fluid collection in the anterior abdominal wall at the site of G-tube tract. No drainable abscess. Diffuse subcutaneous edema in the abdominal wall.
--- NOTE | 2017-07-15 00:25 | CP.PCM.PN ---
Subjective - Date & Time of Evaluation Date of Evaluation: 07/14/17 Time of Evaluation: 14:00 - Subjective Subjective: doingg well clinically. Tolerating diet Objective - Vital Signs/Intake and Output Vital Signs (last 24 hours): Temp Pulse Resp BP Pulse Ox 98.3 F 89 20 158/77 H 94 L 07/14/17 19:21 07/14/17 19:21 07/14/17 19:21 07/14/17 19:21 07/14/17 19:21 Intake and Output: 07/14/17 07/15/17 18:59 06:59 Intake Total 1210 Balance 1210 - Medications Medications: Current Medications Acetaminophen (Tylenol 325mg Tab) 650 mg PO Q6 PRN PRN Reason: fever > 100.4 Amlodipine Besylate (Norvasc) 5 mg PO DAILY [facility] Last Admin: 07/14/17 09:37 Dose: 5 mg Aspirin (Ecotrin) 81 mg PO DAILY [facility] Last Admin: 07/14/17 09:36 Dose: 81 mg Atorvastatin Calcium (Lipitor) 40 mg PO HS [facility] Last Admin: 07/14/17 21:49 Dose: 40 mg Bismuth Subsalicylate (Pepto-Bismol) 524 mg PO Q4 PRN PRN Reason: Diarrhea Last Admin: 07/13/17 20:28 Dose: 524 mg Clopidogrel Bisulfate (Plavix) 75 mg PO DAILY [facility] Last Admin: 07/14/17 09:38 Dose: 75 mg Dextrose (Dextrose 50% Inj) 0 ml IV STAT PRN; Protocol PRN Reason: Hypoglycemia Protocol Dextrose (Glutose 15) 0 gm PO ONCE PRN; Protocol PRN Reason: Hypoglycemia Protocol Enalapril Maleate (Vasotec) 2.5 mg PO BID [facility] Last Admin: 07/14/17 16:11 Dose: 2.5 mg Enoxaparin Sodium (Lovenox) 40 mg SC DAILY [facility] PRN Reason: Protocol Last Admin: 07/14/17 09:37 Dose: 40 mg Ergocalciferol (Drisdol 50,000 Intl Units Cap) 1 cap PO QWK [facility] Glucagon (Glucagen Diagnostic Kit) 0 mg IM STAT PRN; Protocol PRN Reason: Hypoglycemia Protocol Vancomycin HCl 1 gm/ Sodium (Chloride) 250 mls @ 250 mls/hr IVPB DAILY [facility] PRN Reason: Protocol Last Admin: 07/14/17 09:49 Dose: 250 mls/hr Piperacillin Sod/Tazobactam (Sod 4.5 gm/ Sodium Chloride) 100 mls @ 100 mls/hr IVPB Q8@0600,1400,2200 [facility] PRN Reason: Protocol Last Admin: 07/14/17 21:48 Dose: 100 mls/hr Insulin Human Lispro (Humalog) 0 units SC ACHS [facility] PRN Reason: Protocol Last Admin: 07/14/17 21:50 Dose: 3 units Labetalol HCl (Trandate) 100 mg PO BID [facility] Last Admin: 07/14/17 16:11 Dose: 100 mg Pantoprazole Sodium (Protonix Ec Tab) 40 mg PO DAILY [facility] Last Admin: 07/14/17 09:39 Dose: 40 mg Repaglinide (Prandin) 1 mg PO TID [facility] Last Admin: 07/14/17 16:10 Dose: 1 mg Sitagliptin Phosphate (Januvia) 50 mg PO BID [facility] Last Admin: 07/14/17 16:10 Dose: 50 mg - Labs Labs: 07/14/17 05:35 07/14/17 05:35 PT 13.5 Seconds (9.8-13.1) H 07/12/17 10:50 INR 1.2 (0.9-1.2) 07/12/17 10:50 APTT 20.8 Seconds (25.6-37.1) L 07/12/17 10:50 - Head Exam Head Exam: ATRAUMATIC - Eye Exam Eye Exam: Normal appearance - Neck Exam Neck Exam: Full ROM - Respiratory Exam Respiratory Exam: Clear to Ausculation Bilateral - Cardiovascular Exam Cardiovascular Exam: REGULAR RHYTHM - GI/Abdominal Exam GI & Abdominal Exam: Soft, Normal Bowel Sounds. absent: Tenderness Additional comments: marked induration abdominal wall Assessment and Plan (1) Cellulitis Assessment & Plan: No fever and WBC declining . Recommend abdominal wall sono to r/o abscess. Continue antibiotics Status: Acute
[2017-07-15] MEDS: Piperacillin/Tazobact 4.5 GM in Sodium Chloride 0.9% 100 ML IVPB SCH ×3 (06:17→21:09)
[2017-07-15 06:34] LABS: BASO % 0.2 % (0.0-2.0); EOS # 0.1 K/uL (0.0-0.7); EOS % 1.1 % (0.0-4.0); HEMOGLOBIN 8.2 g/dL (12.0-16.0); LYMPH # 1.2 K/uL (1.0-4.3); LYMPH % 12.6 % (20.0-40.0); MEAN CELL VOLUME 89.2 fl (81.0-99.0); MEAN CORPUSCULAR HEMOGLOBIN 29.2 pg (27.0-31.0); MEAN CORPUSCULAR HGB CONC 32.7 g/dL (33.0-37.0); MEAN PLATELET VOLUME 8.9 fl (7.2-11.7); MONO # 0.6 K/uL (0.0-0.8); MONO % 6.4 % (0.0-10.0); NEUT # 7.7 K/uL (1.8-7.0); NEUT % 79.7 % (50.0-75.0); RBC 2.8 Mil/uL (3.80-5.20); RED CELL DISTRIBUTION WIDTH 16.3 % (11.5-14.5); WHITE BLOOD COUNT 9.6 K/uL (4.8-10.8)
[2017-07-15 06:37] LABS: ALB/GLOB RATIO 0.8 (1.0-2.1); ALT/SGPT 23 U/L (9-52); AST/SGOT 11 U/L (14-36); BLOOD UREA NITROGEN 21 mg/dl (7-17); CALCIUM 8.2 mg/dL (8.4-10.2); GFR AFRICAN-AMERICAN > 60; GFR NON-AFRICAN AMERICAN > 60
[2017-07-15] MEDS: Enoxaparin 40 mg Syringe SC SCH (08:39)
[2017-07-15] MEDS: Pantoprazole 40 mg EC Tab PO SCH (08:42)
[2017-07-15] MEDS: Insulin Lispro (humaLOG) 100 Units/ml Inj SC SCH ×4 (08:43→22:43)
--- NOTE | 2017-07-15 09:54 | CP.PCM.PN ---
<Idalmis Lunsford - Last Filed: 07/15/17 11:57> Subjective - Date & Time of Evaluation Date of Evaluation: 07/15/17 Time of Evaluation: 07:10 - Subjective Subjective: Patient seen and examined bedside with Dr Dobbs. Patient reports feeling better. Patient tolerating diet. denies fever, n,v,d abd pain. Patient had to be inserted a new IV line to continue with abx. Abs us showed small wall abd abscess no drainable. Anemic but asymptomatic. pending FOBT Objective - Vital Signs/Intake and Output Vital Signs (last 24 hours): Temp Pulse Resp BP Pulse Ox 98.4 F 77 20 150/70 93 L 07/15/17 08:42 07/15/17 08:42 07/15/17 08:42 07/15/17 08:42 07/15/17 08:42 - Medications Medications: Current Medications Acetaminophen (Tylenol 325mg Tab) 650 mg PO Q6 PRN PRN Reason: fever > 100.4 Last Admin: 07/15/17 00:26 Dose: 650 mg Amlodipine Besylate (Norvasc) 5 mg PO DAILY [facility] Last Admin: 07/15/17 08:39 Dose: 5 mg Aspirin (Ecotrin) 81 mg PO DAILY [facility] Last Admin: 07/15/17 08:38 Dose: 81 mg Atorvastatin Calcium (Lipitor) 40 mg PO HS [facility] Last Admin: 07/14/17 21:49 Dose: 40 mg Bismuth Subsalicylate (Pepto-Bismol) 524 mg PO Q4 PRN PRN Reason: Diarrhea Last Admin: 07/13/17 20:28 Dose: 524 mg Clopidogrel Bisulfate (Plavix) 75 mg PO DAILY [facility] Last Admin: 07/15/17 08:41 Dose: 75 mg Dextrose (Dextrose 50% Inj) 0 ml IV STAT PRN; Protocol PRN Reason: Hypoglycemia Protocol Dextrose (Glutose 15) 0 gm PO ONCE PRN; Protocol PRN Reason: Hypoglycemia Protocol Enalapril Maleate (Vasotec) 2.5 mg PO BID [facility] Last Admin: 07/15/17 08:43 Dose: 2.5 mg Enoxaparin Sodium (Lovenox) 40 mg SC DAILY [facility] PRN Reason: Protocol Last Admin: 07/15/17 08:39 Dose: 40 mg Ergocalciferol (Drisdol 50,000 Intl Units Cap) 1 cap PO QWK [facility] Glucagon (Glucagen Diagnostic Kit) 0 mg IM STAT PRN; Protocol PRN Reason: Hypoglycemia Protocol Vancomycin HCl 1 gm/ Sodium (Chloride) 250 mls @ 250 mls/hr IVPB DAILY [facility] PRN Reason: Protocol Last Admin: 07/15/17 08:46 Dose: 250 mls/hr Piperacillin Sod/Tazobactam (Sod 4.5 gm/ Sodium Chloride) 100 mls @ 100 mls/hr IVPB Q8@0600,1400,2200 [facility] PRN Reason: Protocol Last Admin: 07/15/17 06:17 Dose: 100 mls/hr Insulin Human Lispro (Humalog) 0 units SC ACHS [facility] PRN Reason: Protocol Last Admin: 07/15/17 08:43 Dose: 4 units Labetalol HCl (Trandate) 100 mg PO BID [facility] Last Admin: 07/15/17 08:42 Dose: 100 mg Pantoprazole Sodium (Protonix Ec Tab) 40 mg PO DAILY [facility] Last Admin: 07/15/17 08:42 Dose: 40 mg Repaglinide (Prandin) 1 mg PO TID [facility] Last Admin: 07/15/17 08:41 Dose: 1 mg Sitagliptin Phosphate (Januvia) 50 mg PO BID [facility] Last Admin: 07/15/17 08:38 Dose: 50 mg - Labs Labs: 07/15/17 05:45 07/15/17 05:45 PT 13.5 Seconds (9.8-13.1) H 07/12/17 10:50 INR 1.2 (0.9-1.2) 07/12/17 10:50 APTT 20.8 Seconds (25.6-37.1) L 07/12/17 10:50 - Constitutional Appears: Well, No Acute Distress - Head Exam Head Exam: ATRAUMATIC, NORMOCEPHALIC - Eye Exam Eye Exam: EOMI Additional comments: conjunctival pallor - ENT Exam ENT Exam: Mucous Membranes Moist - Neck Exam Neck Exam: Normal Inspection - Respiratory Exam Respiratory Exam: Clear to Ausculation Bilateral. absent: Rales, Rhonchi, Wheezes - Cardiovascular Exam Cardiovascular Exam: REGULAR RHYTHM, +S1, +S2 - GI/Abdominal Exam GI & Abdominal Exam: Soft, Normal Bowel Sounds. absent: Tenderness Additional comments: Area of cellulitis improving around whre peg tube was. dressing with some yellowish discharge noted. - Extremities Exam Extremities Exam: Normal Capillary Refill, Normal Inspection. absent: Pedal Edema - Neurological Exam Neurological Exam: Alert, Awake, Oriented x3 - Psychiatric Exam Psychiatric exam: Normal Affect, Normal Mood - Skin Skin Exam: Pallor Assessment and Plan - Assessment and Plan (Free Text) Plan: 72 yo ,f, PMhx/o DM, CVA, HTN, Alzheimer who was admitted for for peg tube malfunctioning, abd wall cellulitis, sepsis 1) Sepsis -resolving -SIRS+ abd wall cellulitis+UTI -leukocytosis trending down 17.6 -9.6 -c/w vancomycin, Zosyn 2) Cellulitis abdominal wall -resolving Secondary to peg tube malfunctioning -c/w abx 3) Peg tube malfunctioning -resolved -GI consult appreciated: Gtube removed. wont need more Peg tube-Abd Us: Small abd wall abscess no drainable. -c/w Abx Zosyn, Vancomycin 4) UTI UA: hematuria, leukocyturia, leukocyte sterase positive - urine cx klebsiella sensitive to Zosyn -c/w zosyn, vanco. 5) DM -uncotrolled -hgba1c 16 on 03/31 -c/w Januvia, repaglin -SSI, hypoglycemia protocol 6)HTN -c/w amlodipine, vasotec, labetalol 7) DVT Prophylaxis -Lovenox 40 mg sc daily <Sebastián Dobbs K - Last Filed: 07/21/17 20:26> Objective - Vital Signs/Intake and Output Vital Signs (last 24 hours): Temp Pulse Resp BP Pulse Ox 98.2 F 75 17 126/64 94 L 07/21/17 19:47 07/21/17 19:47 07/21/17 19:47 07/21/17 19:47 07/21/17 19:47 Intake and Output: 07/21/17 07/22/17 18:59 06:59 Intake Total 1100 Balance 1100 - Medications Medications: Current Medications Acetaminophen (Tylenol 325mg Tab) 650 mg PO Q6 PRN PRN Reason: fever > 100.4 Last Admin: 07/15/17 00:26 Dose: 650 mg Acetaminophen (Tylenol 325mg Tab) 325 mg PO Q4 PRN PRN Reason: Pain, Mild (1-3) Last Admin: 07/15/17 21:18 Dose: 325 mg Amlodipine Besylate (Norvasc) 10 mg PO DAILY [facility] Last Admin: 07/21/17 08:28 Dose: Not Given Aspirin (Ecotrin) 81 mg PO DAILY [facility] Last Admin: 07/20/17 08:26 Dose: 81 mg Atorvastatin Calcium (Lipitor) 40 mg PO HS [facility] Last Admin: 07/20/17 21:54 Dose: 40 mg Bismuth Subsalicylate (Pepto-Bismol) 524 mg PO Q4 PRN PRN Reason: Diarrhea Last Admin: 07/17/17 08:53 Dose: 524 mg Clopidogrel Bisulfate (Plavix) 75 mg PO DAILY [facility] Last Admin: 07/20/17 08:27 Dose: 75 mg Cyanocobalamin (Vitamin B12 1000 Mcg/Ml Inj) 1,000 mcg SC DAILY [facility] Last Admin: 07/21/17 08:29 Dose: 1,000 mcg Dextrose (Dextrose 50% Inj) 0 ml IV STAT PRN; Protocol PRN Reason: Hypoglycemia Protocol Dextrose (Glutose 15) 0 gm PO ONCE PRN; Protocol PRN Reason: Hypoglycemia Protocol Enalapril Maleate (Vasotec) 2.5 mg PO BID [facility] Last Admin: 07/21/17 16:19 Dose: Not Given Enoxaparin Sodium (Lovenox) 40 mg SC DAILY [facility] PRN Reason: Protocol Last Admin: 07/20/17 08:26 Dose: Not Given Epoetin Deejay (Procrit) 10,000 unit SC TTS [facility] Last Admin: 07/21/17 08:32 Dose: 10,000 unit Ergocalciferol (Drisdol 50,000 Intl Units Cap) 1 cap PO QWK [facility] Last Admin: 07/20/17 08:28 Dose: 1 cap Glucagon (Glucagen Diagnostic Kit) 0 mg IM STAT PRN; Protocol PRN Reason: Hypoglycemia Protocol Vancomycin HCl 1 gm/ Sodium (Chloride) 250 mls @ 250 mls/hr IVPB DAILY [facility] PRN Reason: Protocol Last Admin: 07/21/17 08:32 Dose: 250 mls/hr Iron Sucrose 100 mg/ Sodium (Chloride) 105 mls @ 105 mls/hr IVPB DAILY [facility] Last Admin: 07/21/17 10:44 Dose: 105 mls/hr Piperacillin Sod/Tazobactam (Sod 4.5 gm/ Sodium Chloride) 100 mls @ 100 mls/hr IVPB Q8 [facility] PRN Reason: Protocol Last Admin: 07/21/17 16:20 Dose: 100 mls/hr Fluconazole (Diflucan Iv 100 Mg/50 Ml Ns) 50 mls @ 50 mls/hr IVPB DAILY [facility] PRN Reason: Protocol Last Admin: 07/21/17 10:43 Dose: 50 mls/hr Insulin Human Lispro (Humalog) 0 units SC ACHS [facility] PRN Reason: Protocol Last Admin: 07/21/17 16:18 Dose: Not Given Labetalol HCl (Trandate) 200 mg PO BID [facility] Last Admin: 07/21/17 16:19 Dose: Not Given Lactobacillus Acidophilus (Bacid Acidophilus) 1 cap PO BID [facility] Last Admin: 07/21/17 16:18 Dose: Not Given Metformin HCl (Glucophage) 500 mg PO BIDWM [facility] Last Admin: 07/21/17 16:18 Dose: Not Given Pantoprazole Sodium (Protonix Ec Tab) 40 mg PO DAILY [facility] Last Admin: 07/21/17 08:28 Dose: Not Given Repaglinide (Prandin) 1 mg PO TID [facility] Last Admin: 07/21/17 16:19 Dose: Not Given Sertraline HCl (Zoloft) 12.5 mg PO DAILY [facility] Last Admin: 07/21/17 08:29 Dose: Not Given Sitagliptin Phosphate (Januvia) 50 mg PO BID [facility] Last Admin: 07/21/17 16:18 Dose: Not Given - Labs Labs: 07/21/17 06:30 07/21/17 06:30 PT 11.7 Seconds (9.8-13.1) 07/21/17 09:00 INR 1.1 (0.9-1.2) 07/21/17 09:00 APTT 26.2 Seconds (25.6-37.1) 07/21/17 09:00 Assessment and Plan - Assessment and Plan (Free Text) Assessment: Patient was personally seen and examined by me in rounds with residents. Available labs and diagnostic data reviewed. Case, Patient's condition and management plan discussed with residents in rounds. Agree with resident's documentation. Plan: As ordered. Sebastián Dobbs MD
--- NOTE | 2017-07-15 10:11 | CP.PCM.PN ---
<Jak Dobbins - Last Filed: 07/15/17 10:13> Subjective - Date & Time of Evaluation Date of Evaluation: 07/15/17 Time of Evaluation: 10:08 - Subjective Subjective: GI note for Dr. Marin 72F seen and examined at bedside. Patient resting comfortably, states she has very mild tenderness on the site of previous PEG tube. Patient denies nausea/ vomiting. She is tolerating PO diet. Objective - Vital Signs/Intake and Output Vital Signs (last 24 hours): Temp Pulse Resp BP Pulse Ox 98.4 F 77 20 150/70 93 L 07/15/17 08:42 07/15/17 08:42 07/15/17 08:42 07/15/17 08:42 07/15/17 08:42 - Medications Medications: Current Medications Acetaminophen (Tylenol 325mg Tab) 650 mg PO Q6 PRN PRN Reason: fever > 100.4 Last Admin: 07/15/17 00:26 Dose: 650 mg Amlodipine Besylate (Norvasc) 5 mg PO DAILY [facility] Last Admin: 07/15/17 08:39 Dose: 5 mg Aspirin (Ecotrin) 81 mg PO DAILY [facility] Last Admin: 07/15/17 08:38 Dose: 81 mg Atorvastatin Calcium (Lipitor) 40 mg PO HS [facility] Last Admin: 07/14/17 21:49 Dose: 40 mg Bismuth Subsalicylate (Pepto-Bismol) 524 mg PO Q4 PRN PRN Reason: Diarrhea Last Admin: 07/13/17 20:28 Dose: 524 mg Clopidogrel Bisulfate (Plavix) 75 mg PO DAILY [facility] Last Admin: 07/15/17 08:41 Dose: 75 mg Dextrose (Dextrose 50% Inj) 0 ml IV STAT PRN; Protocol PRN Reason: Hypoglycemia Protocol Dextrose (Glutose 15) 0 gm PO ONCE PRN; Protocol PRN Reason: Hypoglycemia Protocol Enalapril Maleate (Vasotec) 2.5 mg PO BID [facility] Last Admin: 07/15/17 08:43 Dose: 2.5 mg Enoxaparin Sodium (Lovenox) 40 mg SC DAILY [facility] PRN Reason: Protocol Last Admin: 07/15/17 08:39 Dose: 40 mg Ergocalciferol (Drisdol 50,000 Intl Units Cap) 1 cap PO QWK [facility] Glucagon (Glucagen Diagnostic Kit) 0 mg IM STAT PRN; Protocol PRN Reason: Hypoglycemia Protocol Vancomycin HCl 1 gm/ Sodium (Chloride) 250 mls @ 250 mls/hr IVPB DAILY [facility] PRN Reason: Protocol Last Admin: 07/15/17 08:46 Dose: 250 mls/hr Piperacillin Sod/Tazobactam (Sod 4.5 gm/ Sodium Chloride) 100 mls @ 100 mls/hr IVPB Q8@0600,1400,2200 [facility] PRN Reason: Protocol Last Admin: 07/15/17 06:17 Dose: 100 mls/hr Insulin Human Lispro (Humalog) 0 units SC ACHS [facility] PRN Reason: Protocol Last Admin: 07/15/17 08:43 Dose: 4 units Labetalol HCl (Trandate) 100 mg PO BID [facility] Last Admin: 07/15/17 08:42 Dose: 100 mg Pantoprazole Sodium (Protonix Ec Tab) 40 mg PO DAILY [facility] Last Admin: 07/15/17 08:42 Dose: 40 mg Repaglinide (Prandin) 1 mg PO TID [facility] Last Admin: 07/15/17 08:41 Dose: 1 mg Sitagliptin Phosphate (Januvia) 50 mg PO BID [facility] Last Admin: 07/15/17 08:38 Dose: 50 mg - Labs Labs: 07/15/17 05:45 07/15/17 05:45 PT 13.5 Seconds (9.8-13.1) H 07/12/17 10:50 INR 1.2 (0.9-1.2) 07/12/17 10:50 APTT 20.8 Seconds (25.6-37.1) L 07/12/17 10:50 - Constitutional Appears: Non-toxic, No Acute Distress - Respiratory Exam Respiratory Exam: Clear to Ausculation Bilateral, NORMAL BREATHING PATTERN - Cardiovascular Exam Cardiovascular Exam: REGULAR RHYTHM, +S1, +S2 - GI/Abdominal Exam GI & Abdominal Exam: Soft, Tenderness (very mildly tender). absent: Distended, Firm, Guarding, Rigid, Rebound Additional comments: site of previous PEG, having small purulent draining - Extremities Exam Extremities Exam: absent: Pedal Edema, Tenderness - Neurological Exam Neurological Exam: Alert, Awake - Skin Skin Exam: Dry, Intact, Normal Color, Warm Assessment and Plan - Assessment and Plan (Free Text) Assessment: 72F with infection at site of previous PEG which was then pulled. Abd US: small fluid collection at site of previous PEG, no drainable abscess as per report Plan: - Continue PO diet - Continue antiobiotics Further recs discuss with Dr. Tania Dobbins, PGY2 <Kin Marin - Last Filed: 07/15/17 16:41> Objective - Vital Signs/Intake and Output Vital Signs (last 24 hours): Temp Pulse Resp BP Pulse Ox 98.4 F 84 20 164/79 H 93 L 07/15/17 15:38 07/15/17 15:38 07/15/17 15:38 07/15/17 15:38 07/15/17 15:38 - Medications Medications: Current Medications Acetaminophen (Tylenol 325mg Tab) 650 mg PO Q6 PRN PRN Reason: fever > 100.4 Last Admin: 07/15/17 00:26 Dose: 650 mg Amlodipine Besylate (Norvasc) 5 mg PO DAILY [facility] Last Admin: 07/15/17 08:39 Dose: 5 mg Aspirin (Ecotrin) 81 mg PO DAILY [facility] Last Admin: 07/15/17 08:38 Dose: 81 mg Atorvastatin Calcium (Lipitor) 40 mg PO HS [facility] Last Admin: 07/14/17 21:49 Dose: 40 mg Bismuth Subsalicylate (Pepto-Bismol) 524 mg PO Q4 PRN PRN Reason: Diarrhea Last Admin: 07/13/17 20:28 Dose: 524 mg Clopidogrel Bisulfate (Plavix) 75 mg PO DAILY [facility] Last Admin: 07/15/17 08:41 Dose: 75 mg Dextrose (Dextrose 50% Inj) 0 ml IV STAT PRN; Protocol PRN Reason: Hypoglycemia Protocol Dextrose (Glutose 15) 0 gm PO ONCE PRN; Protocol PRN Reason: Hypoglycemia Protocol Enalapril Maleate (Vasotec) 2.5 mg PO BID [facility] Last Admin: 07/15/17 08:43 Dose: 2.5 mg Ergocalciferol (Drisdol 50,000 Intl Units Cap) 1 cap PO QWK [facility] Glucagon (Glucagen Diagnostic Kit) 0 mg IM STAT PRN; Protocol PRN Reason: Hypoglycemia Protocol Vancomycin HCl 1 gm/ Sodium (Chloride) 250 mls @ 250 mls/hr IVPB DAILY [facility] PRN Reason: Protocol Last Admin: 07/15/17 08:46 Dose: 250 mls/hr Piperacillin Sod/Tazobactam (Sod 4.5 gm/ Sodium Chloride) 100 mls @ 100 mls/hr IVPB Q8@0600,1400,2200 [facility] PRN Reason: Protocol Last Admin: 07/15/17 14:06 Dose: 100 mls/hr Insulin Human Lispro (Humalog) 0 units SC ACHS [facility] PRN Reason: Protocol Last Admin: 07/15/17 12:30 Dose: 4 units Labetalol HCl (Trandate) 100 mg PO BID [facility] Last Admin: 07/15/17 08:42 Dose: 100 mg Pantoprazole Sodium (Protonix Ec Tab) 40 mg PO DAILY [facility] Last Admin: 07/15/17 08:42 Dose: 40 mg Repaglinide (Prandin) 1 mg PO TID [facility] Last Admin: 07/15/17 12:31 Dose: 1 mg Sitagliptin Phosphate (Januvia) 50 mg PO BID [facility] Last Admin: 07/15/17 08:38 Dose: 50 mg - Labs Labs: 07/15/17 05:45 07/15/17 05:45 PT 13.5 Seconds (9.8-13.1) H 07/12/17 10:50 INR 1.2 (0.9-1.2) 07/12/17 10:50 APTT 20.8 Seconds (25.6-37.1) L 07/12/17 10:50 Assessment and Plan (1) Cellulitis Status: Acute - Assessment and Plan (Free Text) Plan: Agree with above assessment and plan. Patient seen and examined.
[2017-07-16] MEDS: Piperacillin/Tazobact 4.5 GM in Sodium Chloride 0.9% 100 ML IVPB SCH ×3 (05:02→21:30)
[2017-07-16 06:18] LABS: BASO % 0.4 % (0.0-2.0); EOS # 0.2 K/uL (0.0-0.7); EOS % 1.8 % (0.0-4.0); HEMOGLOBIN 8.4 g/dL (12.0-16.0); LYMPH # 1.1 K/uL (1.0-4.3); MEAN CELL VOLUME 89.2 fl (81.0-99.0); MEAN CORPUSCULAR HGB CONC 32.6 g/dL (33.0-37.0); MEAN PLATELET VOLUME 8.9 fl (7.2-11.7); MONO # 0.6 K/uL (0.0-0.8); MONO % 6.7 % (0.0-10.0); NEUT # 6.9 K/uL (1.8-7.0); NEUT % 78.1 % (50.0-75.0); RBC 2.9 Mil/uL (3.80-5.20); RED CELL DISTRIBUTION WIDTH 16.3 % (11.5-14.5); WHITE BLOOD COUNT 8.8 K/uL (4.8-10.8)
[2017-07-16 06:35] LABS: ALB/GLOB RATIO 0.8 (1.0-2.1); ALT/SGPT 24 U/L (9-52); AST/SGOT 19 U/L (14-36); BLOOD UREA NITROGEN 16 mg/dl (7-17); CALCIUM 8.5 mg/dL (8.4-10.2); GFR AFRICAN-AMERICAN > 60; GFR NON-AFRICAN AMERICAN > 60
[2017-07-16] MEDS: Insulin Lispro (humaLOG) 100 Units/ml Inj SC SCH ×4 (06:38→21:31)
[2017-07-16] MEDS ORDERED: Potassium Chloride 20 mEq ER Tab PO ONE (07:20)
[2017-07-16] MEDS: Pantoprazole 40 mg EC Tab PO SCH (08:30)
--- NOTE | 2017-07-16 09:26 | PN ---
DATE: 07/16/2017 SUBJECTIVE: The patient is seen and examined. Interim events noted. Consults noted and appreciated. Gastroenterology followup and interventions noted and appreciated. The patient remains in Progressive Care Unit. The patient is awake and responsive. Feels okay. Denies any chest pain. No shortness of breath, abdominal pain, nausea, vomiting or diarrhea. PHYSICAL EXAMINATION: GENERAL: The patient is in no acute distress. VITAL SIGNS: Stable. Temperature of 98, pulse of 81, respirations of 16, blood pressure of 161/71, and oxygen saturation of 94%. HEART: S1 and S2, normal and regular. LUNGS: Good bilateral air exchange. ABDOMEN: Soft and nontender. EXTREMITIES: No edema. No calf swelling. No tenderness. No acute ischemia. CENTRAL NERVOUS SYSTEM: Exam is essentially unchanged. Abdominal wound is slowly bruising, there is minimal brownish discharge. No sign of cellulitis or any other complications. DIAGNOSTIC DATA: Available diagnostic data reviewed. Telemetry monitoring does not reveal any significant arrhythmia. WBC of 8.8, hemoglobin of 8.4, hematocrit of 25.8, and platelets of 327. Sodium is 140, potassium is 3.4, chloride bicarbonate is 28, BUN is 16, creatinine 0.6. unremarkable. ASSESSMENT AND PLAN: Overall, the patient's general medical condition is stable and improved.. Plan as ordered. Sebastián Dobbs MD
[2017-07-17] MEDS: Piperacillin/Tazobact 4.5 GM in Sodium Chloride 0.9% 100 ML IVPB SCH ×4 (05:21→21:41)
[2017-07-17] MEDS: Pantoprazole 40 mg EC Tab PO SCH (08:52)
[2017-07-17] MEDS: Bismuth Subsalicylate 262 mg/15 ml Sus (240 ml) PO PRN (08:53)
[2017-07-17] MEDS: Insulin Lispro (humaLOG) 100 Units/ml Inj SC SCH ×4 (09:03→21:40)
[2017-07-17 09:14] LABS: HEMOGLOBIN 8.7 g/dL (12.0-16.0); MEAN CELL VOLUME 89.6 fl (81.0-99.0); MEAN CORPUSCULAR HGB CONC 32.4 g/dL (33.0-37.0); RBC 3.01 Mil/uL (3.80-5.20); RED CELL DISTRIBUTION WIDTH 16.6 % (11.5-14.5); WHITE BLOOD COUNT 9.9 K/uL (4.8-10.8)
[2017-07-17 09:28] LABS: ALB/GLOB RATIO 0.8 (1.0-2.1); ALBUMIN 3.1 g/dL (3.5-5.0); ALT/SGPT 27 U/L (9-52); AST/SGOT 12 U/L (14-36); BLOOD UREA NITROGEN 13 mg/dl (7-17); CALCIUM 8.6 mg/dL (8.4-10.2); GFR AFRICAN-AMERICAN > 60; GFR NON-AFRICAN AMERICAN > 60
--- NOTE | 2017-07-17 10:51 | PN ---
DATE: 07/17/2017 SUBJECTIVE: The patient is seen and examined. Interim events noted. Consults noted and appreciated. The patient remains in Progressive Care Unit on telemetry monitoring. Denies any specific complaints. No chest pain or shortness of breath. No abdominal pain. Tolerating food very well. PHYSICAL EXAMINATION: GENERAL: The patient is in no acute distress. VITAL SIGNS: Stable. HEART: S1 and S2, normal and regular. LUNGS: Good bilateral air exchange. ABDOMEN: Wound is healing nicely and minimal discharge. No sign of acute abdomen. No guarding. No rigidity. No rebound. Bowel sounds are present and normal. EXTREMITIES: No edema. No calf swelling. No tenderness. No acute ischemia. CENTRAL NERVOUS SYSTEM: Exam is essentially unchanged. DIAGNOSTIC DATA: Available diagnostic data reviewed. ASSESSMENT AND PLAN: Overall, the patient's general medical condition is stable. Telemetry monitoring does not reveal significant arrhythmia. Plan as ordered. Sebastián Dobbs MD
--- NOTE | 2017-07-17 17:52 | CP.PCM.PN ---
Subjective - Date & Time of Evaluation Date of Evaluation: 07/17/17 Time of Evaluation: 17:50 - Subjective Subjective: Clinically doing well and tolerating diet. Temperature not elevated. Objective - Vital Signs/Intake and Output Vital Signs (last 24 hours): Temp Pulse Resp BP Pulse Ox 97.9 F 95 H 20 163/70 H 96 07/17/17 15:30 07/17/17 15:30 07/17/17 15:30 07/17/17 15:30 07/17/17 15:30 Intake and Output: 07/17/17 07/17/17 06:59 18:59 Intake Total 440 Balance 440 - Medications Medications: Current Medications Acetaminophen (Tylenol 325mg Tab) 650 mg PO Q6 PRN PRN Reason: fever > 100.4 Last Admin: 07/15/17 00:26 Dose: 650 mg Acetaminophen (Tylenol 325mg Tab) 325 mg PO Q4 PRN PRN Reason: Pain, Mild (1-3) Last Admin: 07/15/17 21:18 Dose: 325 mg Amlodipine Besylate (Norvasc) 10 mg PO DAILY [facility] Last Admin: 07/17/17 08:54 Dose: 10 mg Aspirin (Ecotrin) 81 mg PO DAILY [facility] Last Admin: 07/17/17 08:52 Dose: 81 mg Atorvastatin Calcium (Lipitor) 40 mg PO HS [facility] Last Admin: 07/16/17 21:29 Dose: 40 mg Bismuth Subsalicylate (Pepto-Bismol) 524 mg PO Q4 PRN PRN Reason: Diarrhea Last Admin: 07/17/17 08:53 Dose: 524 mg Clopidogrel Bisulfate (Plavix) 75 mg PO DAILY [facility] Last Admin: 07/17/17 08:53 Dose: 75 mg Dextrose (Dextrose 50% Inj) 0 ml IV STAT PRN; Protocol PRN Reason: Hypoglycemia Protocol Dextrose (Glutose 15) 0 gm PO ONCE PRN; Protocol PRN Reason: Hypoglycemia Protocol Enalapril Maleate (Vasotec) 2.5 mg PO BID [facility] Last Admin: 07/17/17 17:16 Dose: 2.5 mg Ergocalciferol (Drisdol 50,000 Intl Units Cap) 1 cap PO QWK [facility] Glucagon (Glucagen Diagnostic Kit) 0 mg IM STAT PRN; Protocol PRN Reason: Hypoglycemia Protocol Vancomycin HCl 1 gm/ Sodium (Chloride) 250 mls @ 250 mls/hr IVPB DAILY [facility] PRN Reason: Protocol Last Admin: 07/17/17 09:00 Dose: 250 mls/hr Piperacillin Sod/Tazobactam (Sod 4.5 gm/ Sodium Chloride) 100 mls @ 100 mls/hr IVPB Q8@0600,1400,2200 [facility] PRN Reason: Protocol Last Admin: 07/17/17 16:10 Dose: Not Given Insulin Human Lispro (Humalog) 0 units SC ACHS [facility] PRN Reason: Protocol Last Admin: 07/17/17 17:15 Dose: 3 units Labetalol HCl (Trandate) 200 mg PO BID [facility] Last Admin: 07/17/17 17:16 Dose: 200 mg Metformin HCl (Glucophage) 500 mg PO BIDWM [facility] Last Admin: 07/17/17 17:16 Dose: 500 mg Pantoprazole Sodium (Protonix Ec Tab) 40 mg PO DAILY [facility] Last Admin: 07/17/17 08:52 Dose: 40 mg Repaglinide (Prandin) 1 mg PO TID [facility] Last Admin: 07/17/17 17:16 Dose: 1 mg Sitagliptin Phosphate (Januvia) 50 mg PO BID [facility] Last Admin: 07/17/17 17:17 Dose: 50 mg - Labs Labs: 07/17/17 08:30 07/17/17 08:30 PT 13.5 Seconds (9.8-13.1) H 07/12/17 10:50 INR 1.2 (0.9-1.2) 07/12/17 10:50 APTT 20.8 Seconds (25.6-37.1) L 07/12/17 10:50 - Head Exam Head Exam: NORMOCEPHALIC - ENT Exam ENT Exam: Mucous Membranes Moist - Respiratory Exam Respiratory Exam: Clear to Ausculation Bilateral - GI/Abdominal Exam GI & Abdominal Exam: Soft, Normal Bowel Sounds Additional comments: Redness better but abdominal wall remains indurated. Assessment and Plan (1) Cellulitis Assessment & Plan: Abdominal wall induration persisting. Management as per ID. Status: Acute
[2017-07-17] MEDS: Amoxicillin-Clav 875-125 mg Tab PO SCH (21:55)
[2017-07-18] MEDS: Piperacillin/Tazobact 4.5 GM in Sodium Chloride 0.9% 100 ML IVPB SCH ×3 (06:32→17:37)
[2017-07-18 07:50] LABS: HEMOGLOBIN 8.2 g/dL (12.0-16.0); MEAN CORPUSCULAR HEMOGLOBIN 28.8 pg (27.0-31.0); MEAN CORPUSCULAR HGB CONC 32.3 g/dL (33.0-37.0); RBC 2.83 Mil/uL (3.80-5.20); RED CELL DISTRIBUTION WIDTH 16.2 % (11.5-14.5)
[2017-07-18 08:01] LABS: ALB/GLOB RATIO 0.8 (1.0-2.1); ALBUMIN 2.9 g/dL (3.5-5.0); ALT/SGPT 23 U/L (9-52); AST/SGOT 19 U/L (14-36); BLOOD UREA NITROGEN 11 mg/dl (7-17); CALCIUM 8.5 mg/dL (8.4-10.2); GFR AFRICAN-AMERICAN > 60; GFR NON-AFRICAN AMERICAN > 60
[2017-07-18] MEDS: Amoxicillin-Clav 875-125 mg Tab PO SCH (08:29)
[2017-07-18] MEDS: Pantoprazole 40 mg EC Tab PO SCH (08:30)
[2017-07-18] MEDS: Insulin Lispro (humaLOG) 100 Units/ml Inj SC SCH ×4 (08:32→22:01)
--- NOTE | 2017-07-18 09:16 | CP.PCM.CON ---
<Miller Puckett - Last Filed: 07/18/17 11:27> History of Present Illness - History of Present Illness History of Present Illness: General Surgery Note for Dr. Queen 72F with PMHx DM, CVA, HTN, Alzheimer's admitted to hospital on 07/12 from correction for redness and swelling around her gastrostomy tube with associated fever seen at bedside today for continued redness and swelling to site. Gastrostomy tube was removed on 07/13/[address] Marin. Patient is seen sitting upright in a chair eating at time of examination. States that pain to the area is minimal. Denies any new complaints. Denies any recent N/V/F/C/CP/SOB /D or stomach pain. Patient passed swallow eval and states that she is tolerating her oral diet well. All: Oxycodone PSH: Abdominal PEG tube SHx: Denies EtOH, IVDU, Tobacco Meds: See MAR FHx: Reviewed and not pertinent Review of Systems - Review of Systems All systems: reviewed and no additional remarkable complaints except Review of Systems: as per HPI Past Patient History - Past Medical History & Family History Past Medical History?: Yes - Past Social History Alcohol: None Drugs: Denies - CARDIAC Hx Hypercholesterolemia: Yes Hx Hypertension: Yes - PULMONARY Hx Respiratory Disorders: No - NEUROLOGICAL Hx Alzheimer's Disease: Yes - HEENT Hx HEENT Problems: No - RENAL Hx Chronic Kidney Disease: No - ENDOCRINE/METABOLIC Hx Endocrine Disorders: Yes Hx Diabetes Mellitus Type 2: Yes - HEMATOLOGICAL/ONCOLOGICAL Hx Human Immunodeficiency Virus (HIV): No - INTEGUMENTARY Hx Dermatological Problems: Yes Other/Comment: ulcers noted on bilateral great toes - MUSCULOSKELETAL/RHEUMATOLOGICAL Hx Musculoskeletal Disorders: No Hx Falls: No Other/Comment: let foot ulcer - GASTROINTESTINAL Hx Gastrointestinal Disorders: Yes Hx Gastroesophageal Reflux: Yes Hx Hemorrhoids: Yes - GENITOURINARY/GYNECOLOGICAL Hx Genitourinary Disorders: No - PSYCHIATRIC Hx Psychophysiologic Disorder: No Hx Substance Use: No - SURGICAL HISTORY Hx Surgeries: No Other/Comment: abdominal PEG tube - ANESTHESIA Hx Anesthesia: Yes Hx Anesthesia Reactions: No Hx Malignant Hyperthermia: No Meds Home Medications: Home Medication List Medication Instructions Recorded Confirmed Type Insulin Detemir [Levemir] 35 units SC HS #0 vial 07/12/17 Rx Allergies/Adverse Reactions: Allergies Allergy/AdvReac Type Severity Reaction Status Date / Time oxycodone Allergy RASH Verified 07/12/17 10:15 - Medications Medications: Current Medications Acetaminophen (Tylenol 325mg Tab) 650 mg PO Q6 PRN PRN Reason: fever > 100.4 Last Admin: 07/15/17 00:26 Dose: 650 mg Acetaminophen (Tylenol 325mg Tab) 325 mg PO Q4 PRN PRN Reason: Pain, Mild (1-3) Last Admin: 07/15/17 21:18 Dose: 325 mg Amlodipine Besylate (Norvasc) 10 mg PO DAILY [facility] Last Admin: 07/18/17 08:30 Dose: 10 mg Aspirin (Ecotrin) 81 mg PO DAILY [facility] Last Admin: 07/18/17 08:31 Dose: 81 mg Atorvastatin Calcium (Lipitor) 40 mg PO HS [facility] Last Admin: 07/17/17 21:39 Dose: 40 mg Bismuth Subsalicylate (Pepto-Bismol) 524 mg PO Q4 PRN PRN Reason: Diarrhea Last Admin: 07/17/17 08:53 Dose: 524 mg Clopidogrel Bisulfate (Plavix) 75 mg PO DAILY [facility] Last Admin: 07/18/17 08:29 Dose: 75 mg Cyanocobalamin (Vitamin B12 1000 Mcg/Ml Inj) 1,000 mcg SC DAILY [facility] Dextrose (Dextrose 50% Inj) 0 ml IV STAT PRN; Protocol PRN Reason: Hypoglycemia Protocol Dextrose (Glutose 15) 0 gm PO ONCE PRN; Protocol PRN Reason: Hypoglycemia Protocol Enalapril Maleate (Vasotec) 2.5 mg PO BID [facility] Last Admin: 07/18/17 08:30 Dose: 2.5 mg Ergocalciferol (Drisdol 50,000 Intl Units Cap) 1 cap PO QWK [facility] Glucagon (Glucagen Diagnostic Kit) 0 mg IM STAT PRN; Protocol PRN Reason: Hypoglycemia Protocol Vancomycin HCl 1 gm/ Sodium (Chloride) 250 mls @ 250 mls/hr IVPB DAILY [facility] PRN Reason: Protocol Last Admin: 07/17/17 09:00 Dose: 250 mls/hr Piperacillin Sod/Tazobactam (Sod 4.5 gm/ Sodium Chloride) 100 mls @ 100 mls/hr IVPB Q8 [facility] PRN Reason: Protocol Insulin Human Lispro (Humalog) 0 units SC ACHS [facility] PRN Reason: Protocol Last Admin: 07/18/17 08:32 Dose: 3 units Labetalol HCl (Trandate) 200 mg PO BID [facility] Last Admin: 07/18/17 08:29 Dose: 200 mg Metformin HCl (Glucophage) 500 mg PO BIDWM [facility] Last Admin: 07/18/17 08:29 Dose: 500 mg Pantoprazole Sodium (Protonix Ec Tab) 40 mg PO DAILY [facility] Last Admin: 07/18/17 08:30 Dose: 40 mg Repaglinide (Prandin) 1 mg PO TID [facility] Last Admin: 07/18/17 08:28 Dose: 1 mg Sitagliptin Phosphate (Januvia) 50 mg PO BID [facility] Last Admin: 07/18/17 08:28 Dose: 50 mg Physical Exam - Constitutional Appears: Well, Non-toxic, No Acute Distress - Head Exam Head Exam: ATRAUMATIC, NORMOCEPHALIC - ENT Exam ENT Exam: Mucous Membranes Moist, Normal Exam - Neck Exam Neck exam: Positive for: Full Rom. Negative for: Tenderness - Respiratory Exam Respiratory Exam: NORMAL BREATHING PATTERN. absent: Respiratory Distress - GI/Abdominal Exam GI & Abdominal Exam: absent: Distended, Firm, Guarding, Tenderness Additional comments: Cellulitic changes noted to left abdominal skin with mild underlying fluctuance Approx 6 cc of white/victor, non-malodorous drainage expressed from GT tube site after palpating cellulitic area - Extremities Exam Extremities exam: Positive for: normal inspection. Negative for: tenderness - Back Exam Back exam: absent: CVA tenderness (L), CVA tenderness (R) - Neurological Exam Neurological exam: Alert, Altered - Psychiatric Exam Psychiatric exam: Normal Affect, Normal Mood - Skin Skin Exam: Erythema, Intact, Warm Results - Vital Signs Recent Vital Signs: Last Vital Signs Temp 97.7 F 07/18/17 08:11 Pulse 85 07/18/17 08:39 Resp 18 07/18/17 08:11 BP 147/72 07/18/17 08:30 Pulse Ox 94 L 07/18/17 08:11 - Labs Result Diagrams: 07/18/17 07:35 07/18/17 07:35 Labs: Laboratory Results - last 24 hr 07/16/17 07/17/17 07/17/17 06:00 05:09 08:30 WBC 9.9 RBC 3.01 L Hgb 8.7 L Hct 27.0 L MCV 89.6 MCH 29.0 MCHC 32.4 L RDW 16.6 H Plt Count 338 Sodium Potassium Chloride Carbon Dioxide Anion Gap BUN Creatinine Est GFR ( Amer) Est GFR (Non-Af Amer) POC Glucose (mg/dL) 223 H Random Glucose Hemoglobin A1c 9.2 H D Calcium Total Bilirubin AST ALT Alkaline Phosphatase Total Protein Albumin Globulin Albumin/Globulin Ratio 07/17/17 07/17/17 07/17/17 08:30 11:02 15:48 WBC RBC Hgb Hct MCV MCH MCHC RDW Plt Count Sodium 138 Potassium 3.8 Chloride 102 Carbon Dioxide 25 Anion Gap 15 BUN 13 Creatinine 0.6 L Est GFR ( Amer) > 60 Est GFR (Non-Af Amer) > 60 POC Glucose (mg/dL) 310 H 252 H Random Glucose 246 H Hemoglobin A1c Calcium 8.6 Total Bilirubin 0.4 AST 12 L D ALT 27 Alkaline Phosphatase 92 Total Protein 7.1 Albumin 3.1 L Globulin 4.0 H Albumin/Globulin Ratio 0.8 L 07/17/17 07/18/17 07/18/17 21:44 05:16 07:35 WBC 10.0 RBC 2.83 L Hgb 8.2 L Hct 25.2 L MCV 89.0 MCH 28.8 MCHC 32.3 L RDW 16.2 H Plt Count 371 Sodium Potassium Chloride Carbon Dioxide Anion Gap BUN Creatinine Est GFR ( Amer) Est GFR (Non-Af Amer) POC Glucose (mg/dL) 218 H 256 H Random Glucose Hemoglobin A1c Calcium Total Bilirubin AST ALT Alkaline Phosphatase Total Protein Albumin Globulin Albumin/Globulin Ratio 07/18/17 07:35 WBC RBC Hgb Hct MCV MCH MCHC RDW Plt Count Sodium 140 Potassium 4.1 Chloride 103 Carbon Dioxide 26 Anion Gap 15 BUN 11 Creatinine 0.5 L Est GFR ( Amer) > 60 Est GFR (Non-Af Amer) > 60 POC Glucose (mg/dL) Random Glucose 247 H Hemoglobin A1c Calcium 8.5 Total Bilirubin 0.2 AST 19 ALT 23 Alkaline Phosphatase 82 Total Protein 6.7 Albumin 2.9 L Globulin 3.8 Albumin/Globulin Ratio 0.8 L - Imaging and Cardiology CT scan - abdomen Status: Image reviewed by me, Report reviewed by me US - abdomen Status: Image reviewed by me, Report reviewed by me Assessment & Plan - Assessment and Plan (Free Text) Assessment: 72F seen for cellulitic changes to left abdomen with underlying abscess and assessment of GT tube site Plan: Patient seen and evaluated with Dr. Queen Approximately 5 cc of white/victor non-malodorous drainage expressed from GT tube site when abscess site was palpated Consent obtained for incision and drainage of abdominal wall abscess Incision and drainage performed without complication Roughly 5 cc of white/victor, non-malodorous drainage expressed Wound cx taken of drainage I and D site flushed with normal saline and packed with 1/4 inch plain packing I and D site and GT tube site both dressed with gauze Continue IV abx Will continue to follow - Date & Time Date: 07/18/17 Time: 11:33 <Mckayla Queen - Last Filed: 07/18/17 12:56> Meds - Medications Medications: Current Medications Acetaminophen (Tylenol 325mg Tab) 650 mg PO Q6 PRN PRN Reason: fever > 100.4 Last Admin: 07/15/17 00:26 Dose: 650 mg Acetaminophen (Tylenol 325mg Tab) 325 mg PO Q4 PRN PRN Reason: Pain, Mild (1-3) Last Admin: 07/15/17 21:18 Dose: 325 mg Amlodipine Besylate (Norvasc) 10 mg PO DAILY [facility] Last Admin: 07/18/17 08:30 Dose: 10 mg Aspirin (Ecotrin) 81 mg PO DAILY [facility] Last Admin: 07/18/17 08:31 Dose: 81 mg Atorvastatin Calcium (Lipitor) 40 mg PO HS [facility] Last Admin: 07/17/17 21:39 Dose: 40 mg Bismuth Subsalicylate (Pepto-Bismol) 524 mg PO Q4 PRN PRN Reason: Diarrhea Last Admin: 07/17/17 08:53 Dose: 524 mg Clopidogrel Bisulfate (Plavix) 75 mg PO DAILY [facility] Last Admin: 07/18/17 08:29 Dose: 75 mg Cyanocobalamin (Vitamin B12 1000 Mcg/Ml Inj) 1,000 mcg SC DAILY [facility] Dextrose (Dextrose 50% Inj) 0 ml IV STAT PRN; Protocol PRN Reason: Hypoglycemia Protocol Dextrose (Glutose 15) 0 gm PO ONCE PRN; Protocol PRN Reason: Hypoglycemia Protocol Enalapril Maleate (Vasotec) 2.5 mg PO BID [facility] Last Admin: 07/18/17 08:30 Dose: 2.5 mg Ergocalciferol (Drisdol 50,000 Intl Units Cap) 1 cap PO QWK [facility] Glucagon (Glucagen Diagnostic Kit) 0 mg IM STAT PRN; Protocol PRN Reason: Hypoglycemia Protocol Vancomycin HCl 1 gm/ Sodium (Chloride) 250 mls @ 250 mls/hr IVPB DAILY [facility] PRN Reason: Protocol Last Admin: 07/17/17 09:00 Dose: 250 mls/hr Piperacillin Sod/Tazobactam (Sod 4.5 gm/ Sodium Chloride) 100 mls @ 100 mls/hr IVPB Q8 [facility] PRN Reason: Protocol Insulin Human Lispro (Humalog) 0 units SC ACHS [facility] PRN Reason: Protocol Last Admin: 07/18/17 08:32 Dose: 3 units Labetalol HCl (Trandate) 200 mg PO BID [facility] Last Admin: 07/18/17 08:29 Dose: 200 mg Metformin HCl (Glucophage) 500 mg PO BIDWM [facility] Last Admin: 07/18/17 08:29 Dose: 500 mg Pantoprazole Sodium (Protonix Ec Tab) 40 mg PO DAILY [facility] Last Admin: 07/18/17 08:30 Dose: 40 mg Repaglinide (Prandin) 1 mg PO TID [facility] Last Admin: 07/18/17 08:28 Dose: 1 mg Sertraline HCl (Zoloft) 12.5 mg PO DAILY [facility] Sitagliptin Phosphate (Januvia) 50 mg PO BID [facility] Last Admin: 07/18/17 08:28 Dose: 50 mg Results - Vital Signs Recent Vital Signs: Last Vital Signs Temp 97.9 F 07/18/17 12:11 Pulse 81 07/18/17 12:11 Resp 18 07/18/17 12:11 BP 161/77 H 07/18/17 12:11 Pulse Ox 96 07/18/17 12:11 - Labs Result Diagrams: 07/18/17 07:35 07/18/17 07:35 Labs: Laboratory Results - last 24 hr 07/17/17 07/17/17 07/17/17 11:02 15:48 21:44 WBC RBC Hgb Hct MCV MCH MCHC RDW Plt Count Sodium Potassium Chloride Carbon Dioxide Anion Gap BUN Creatinine Est GFR ( Amer) Est GFR (Non-Af Amer) POC Glucose (mg/dL) 310 H 252 H 218 H Random Glucose Calcium Total Bilirubin AST ALT Alkaline Phosphatase Total Protein Albumin Globulin Albumin/Globulin Ratio 07/18/17 07/18/17 07/18/17 05:16 07:35 07:35 WBC 10.0 RBC 2.83 L Hgb 8.2 L Hct 25.2 L MCV 89.0 MCH 28.8 MCHC 32.3 L RDW 16.2 H Plt Count 371 Sodium 140 Potassium 4.1 Chloride 103 Carbon Dioxide 26 Anion Gap 15 BUN 11 Creatinine 0.5 L Est GFR ( Amer) > 60 Est GFR (Non-Af Amer) > 60 POC Glucose (mg/dL) 256 H Random Glucose 247 H Calcium 8.5 Total Bilirubin 0.2 AST 19 ALT 23 Alkaline Phosphatase 82 Total Protein 6.7 Albumin 2.9 L Globulin 3.8 Albumin/Globulin Ratio 0.8 L Attending/Attestation - Attestation I have personally seen and examined this patient.: Yes I have fully participated in the care of the patient.: Yes I have reviewed all pertinent clinical information: Yes Notes (Text): 07/18/17 12:55 Drainage of small amount of pus from abdominal wall abscess, most likely originating at gastrostomy site. C&S is sent, can f/u for antibiotic coverage.
[2017-07-18] MEDS ORDERED: Lidocaine 1% Inj (20ml) IJ ONE (10:02)
--- NOTE | 2017-07-18 11:24 | PCM.PROC ---
Incision and Drainage - Time Time Performed: 11:00 - Time Out Time Out: Side verified, Site verified, Patient ID confirmed, Sterile procedures obs. - Procedure Procedure-Incision & Drainage: of abdominal wall abscess - Consent obtained Consent obtained: Written - Performed by Performed by: Mid-level Provider (Attending present during procedure) - Indications Indications: Cutaneous abscess - Contraindications Contraindications: None - Location Location: Left (superior anterior abdominal wall) - Dimensions Dimensions Length cm: 6 Dimensions width cm: 3 - Anesthetic Technique Anesthetic Technique: Local - Anesthetic Anesthetic: Lidocaine 1% - Systemic Analgesia Systemic Analgesia: Other (Motrin) - Procedure Procedure: Usual prep and drape, cm incision (2), Overlying area fluctuance, # scalpel used (11), Explored for loculations, Irrigated, Packed with sterile gauze - Drained Drained: ml blood (10) - Post-procedure Post procedure: Dressed - Complications Complications: None - Patient tolerated procedure Patient tolerated procedure: Well
--- NOTE | 2017-07-18 11:28 | PN ---
DATE: 07/18/2017 SUBJECTIVE: The patient is seen and examined. Interim events noted. Consults noted and appreciated. Gastroenterology followup and interventions noted and appreciated. Case discussed with Dr. Marin, insurance claim auditor. The patient feels okay. Denies any specific complaints, but refused antibiotic intravenously yesterday and was switched to oral antibiotic. Denies any abdominal pain, any problem with food, moving bowels or any urinary symptoms. PHYSICAL EXAMINATION: GENERAL: The patient is in no acute distress. VITAL SIGNS: Stable. HEART: S1 and S2, normal and regular. LUNGS: Good bilateral air exchange. ABDOMEN: Soft and nontender with a large area of underneath the skin just beyond the PEG tube site inferolaterally, it is about 8 cm x 4 cm roughly and there is redness on top of it, but there is no tenderness or fluctuation. There is no sign of acute abdomen. No guarding. No rigidity. No rebound. Bowel sounds are plus and normal. EXTREMITIES: No edema. No calf swelling. No tenderness. No acute ischemia. TECHNOLOGY INTERNSHIP: Essentially unchanged. DIAGNOSTIC DATA: Available diagnostic data reviewed. WBC is not elevated. PLAN: Case and plan discussed with the patient at length. The patient agreed for IV antibiotic, which we will restart. The patient will also need a CAT scan of abdomen with contrast to rule out drainable abscess. Previous CAT scan and ultrasound . Plan as ordered. Case and plan discussed in detail with the patient. Sebastián Dobbs MD
[2017-07-18] MEDS ORDERED: LIDOCAINE 2% 10ML 20 MG/ML VIAL IJ ONE (14:59)
--- NOTE | 2017-07-18 15:15 | PCM.SURG1 ---
Surgeon's Initial Post Op Note - Surgeon's Notes Surgeon: Alex Fraser MD Roller Stainer: None Type of Anesthesia: Local Pre-Operative Diagnosis: infection Operative Findings: patent right basilic vein. catheter length: 35 cm. catheter tip: cavoatrial junction Post-Operative Diagnosis: same Operation Performed: RUE PICC Insertion Specimen/Specimens Removed: n/a Estimated Blood Loss: EBL {In ML}: 0 Date of Surgery/Procedure: 07/18/17 Time of Surgery/Procedure: 15:05
--- NOTE | 2017-07-18 15:54 | VASCULAR ---
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 COMPARISON: None. PROCEDURE: 1. Focused ultrasound of the right upper extremity vasculature. 2. Ultrasound-guided access. 3. Insertion of peripherally inserted central venous catheter. 4. Fluoroscopic localization of catheter tip. PRE-PROCEDURE FINDINGS: 1. Patent right basilic vein. POST-PROCEDURE FINDINGS: 1. Placement of 4 [place] single-lumen PICC. 2. Catheter length: 35 cm. 3. Catheter tip at cavoatrial junction. INTERVENTIONAL RADIOLOGIST: Alex Fraser M.D. (the attending was present for the entire procedure) ANESTHESIA: None. MEDICATION: Lidocaine 1% for local subcutaneous analgesia. COMPLICATIONS: None. RADIATION DOSE: Fluoroscopy Time: 20.9 seconds Cumulative Dose: 2.92 mGy PROCEDURE DESCRIPTION AND FINDINGS: The risks, benefits, alternatives and possible complications of the procedure were fully discussed; all questions were answered and informed consent was obtained. The patient was brought into the interventional suite and a pre-procedure 'time-out' was performed. The patient was placed on the fluoroscopy table in the supine position. The right upper extremity was prepped and draped in the usual sterile fashion. Maximum sterile barrier precautions were maintained throughout the entire procedure. Preliminary ultrasound images of the right upper extremity vasculature demonstrate patency of the right basilic vein. Following subcutaneous infiltration of 1% lidocaine for local analgesia, under ultrasound guidance, a 21-gauge needle was advanced into the right basilic vein with real-time visualization of needle entry. The ultrasound images were permanently recorded and submitted to the PACS. A 0.018 guidewire was advanced centrally to the cavoatrial junction. A 4.5 [place] peel-away sheath was advanced over the guidewire. After obtaining length measurement, a 4 [place] single-lumen PICC was placed with the tip of the catheter at the cavoatrial junction. The total length of the catheter is 35 cm. The hub of the PICC was secured to the skin using a sterile adhesive bandage. The patient tolerated the procedure well without immediate post-procedure complications and was transferred back to the floor in stable condition. IMPRESSION: SUCCESSFUL INSERTION OF RIGHT UPPER EXTREMITY PICC. PICC OK TO USE.
--- NOTE | 2017-07-18 17:31 | CP.PCM.CON ---
History of Present Illness - History of Present Illness History of Present Illness: 72 yo ,f, PMhx/o DM, CVA, HTN, Alzheimer who was sent to ED fron custodial with noticed redness, swelling and pain around the G tube associated with fever on arrival to Ed. Her thinks this has been for several days. pt has been noticed to be depressed , on evaluation, patient has poor eye contact oriented to person, partialy to place and not to time, irritable, and tearful,, speech underproductive, denied any previous psychiatric treatment or hospitalization, no reported changes in sleep or appetite, pt reported feeling distressed because of her medical condition, denied suicidal or homicidal ideations, denied perceptual disturbances Past Patient History - Past Medical History & Family History Past Medical History?: Yes - Past Social History Alcohol: None Drugs: Denies - CARDIAC Hx Hypercholesterolemia: Yes Hx Hypertension: Yes - PULMONARY Hx Respiratory Disorders: No - NEUROLOGICAL Hx Alzheimer's Disease: Yes - HEENT Hx HEENT Problems: No - RENAL Hx Chronic Kidney Disease: No - ENDOCRINE/METABOLIC Hx Endocrine Disorders: Yes Hx Diabetes Mellitus Type 2: Yes - HEMATOLOGICAL/ONCOLOGICAL Hx Human Immunodeficiency Virus (HIV): No - INTEGUMENTARY Hx Dermatological Problems: Yes Other/Comment: ulcers noted on bilateral great toes - MUSCULOSKELETAL/RHEUMATOLOGICAL Hx Musculoskeletal Disorders: No Hx Falls: No Other/Comment: let foot ulcer - GASTROINTESTINAL Hx Gastrointestinal Disorders: Yes Hx Gastroesophageal Reflux: Yes Hx Hemorrhoids: Yes - GENITOURINARY/GYNECOLOGICAL Hx Genitourinary Disorders: No - PSYCHIATRIC Hx Psychophysiologic Disorder: No Hx Substance Use: No - SURGICAL HISTORY Hx Surgeries: No Other/Comment: abdominal PEG tube - ANESTHESIA Hx Anesthesia: Yes Hx Anesthesia Reactions: No Hx Malignant Hyperthermia: No Meds Home Medications: Home Medication List Medication Instructions Recorded Confirmed Type Insulin Detemir [Levemir] 35 units SC HS #0 vial 07/12/17 Rx Allergies/Adverse Reactions: Allergies Allergy/AdvReac Type Severity Reaction Status Date / Time oxycodone Allergy RASH Verified 07/12/17 10:15 - Medications Medications: Current Medications Acetaminophen (Tylenol 325mg Tab) 650 mg PO Q6 PRN PRN Reason: fever > 100.4 Last Admin: 07/15/17 00:26 Dose: 650 mg Acetaminophen (Tylenol 325mg Tab) 325 mg PO Q4 PRN PRN Reason: Pain, Mild (1-3) Last Admin: 07/15/17 21:18 Dose: 325 mg Amlodipine Besylate (Norvasc) 10 mg PO DAILY [facility] Last Admin: 07/18/17 08:30 Dose: 10 mg Aspirin (Ecotrin) 81 mg PO DAILY [facility] Last Admin: 07/18/17 08:31 Dose: 81 mg Atorvastatin Calcium (Lipitor) 40 mg PO HS [facility] Last Admin: 07/17/17 21:39 Dose: 40 mg Bismuth Subsalicylate (Pepto-Bismol) 524 mg PO Q4 PRN PRN Reason: Diarrhea Last Admin: 07/17/17 08:53 Dose: 524 mg Clopidogrel Bisulfate (Plavix) 75 mg PO DAILY [facility] Last Admin: 07/18/17 08:29 Dose: 75 mg Cyanocobalamin (Vitamin B12 1000 Mcg/Ml Inj) 1,000 mcg SC DAILY [facility] Dextrose (Dextrose 50% Inj) 0 ml IV STAT PRN; Protocol PRN Reason: Hypoglycemia Protocol Dextrose (Glutose 15) 0 gm PO ONCE PRN; Protocol PRN Reason: Hypoglycemia Protocol Enalapril Maleate (Vasotec) 2.5 mg PO BID [facility] Last Admin: 07/18/17 08:30 Dose: 2.5 mg Ergocalciferol (Drisdol 50,000 Intl Units Cap) 1 cap PO QWK [facility] Glucagon (Glucagen Diagnostic Kit) 0 mg IM STAT PRN; Protocol PRN Reason: Hypoglycemia Protocol Vancomycin HCl 1 gm/ Sodium (Chloride) 250 mls @ 250 mls/hr IVPB DAILY [facility] PRN Reason: Protocol Last Admin: 07/17/17 09:00 Dose: 250 mls/hr Piperacillin Sod/Tazobactam (Sod 4.5 gm/ Sodium Chloride) 100 mls @ 100 mls/hr IVPB Q8 [facility] PRN Reason: Protocol Insulin Human Lispro (Humalog) 0 units SC ACHS [facility] PRN Reason: Protocol Last Admin: 07/18/17 08:32 Dose: 3 units Labetalol HCl (Trandate) 200 mg PO BID [facility] Last Admin: 07/18/17 08:29 Dose: 200 mg Metformin HCl (Glucophage) 500 mg PO BIDWM [facility] Last Admin: 07/18/17 08:29 Dose: 500 mg Pantoprazole Sodium (Protonix Ec Tab) 40 mg PO DAILY [facility] Last Admin: 07/18/17 08:30 Dose: 40 mg Repaglinide (Prandin) 1 mg PO TID [facility] Last Admin: 07/18/17 08:28 Dose: 1 mg Sertraline HCl (Zoloft) 12.5 mg PO DAILY [facility] Sitagliptin Phosphate (Januvia) 50 mg PO BID [facility] Last Admin: 07/18/17 08:28 Dose: 50 mg Results - Vital Signs Recent Vital Signs: Last Vital Signs Temp 97.9 F 07/18/17 12:11 Pulse 81 07/18/17 12:11 Resp 18 07/18/17 12:11 BP 161/77 H 07/18/17 12:11 Pulse Ox 96 07/18/17 12:11 - Labs Result Diagrams: 07/18/17 07:35 07/18/17 07:35 Labs: Laboratory Results - last 24 hr 07/17/17 07/17/17 07/17/17 11:02 15:48 21:44 WBC RBC Hgb Hct MCV MCH MCHC RDW Plt Count Sodium Potassium Chloride Carbon Dioxide Anion Gap BUN Creatinine Est GFR ( Amer) Est GFR (Non-Af Amer) POC Glucose (mg/dL) 310 H 252 H 218 H Random Glucose Calcium Total Bilirubin AST ALT Alkaline Phosphatase Total Protein Albumin Globulin Albumin/Globulin Ratio 07/18/17 07/18/17 07/18/17 05:16 07:35 07:35 WBC 10.0 RBC 2.83 L Hgb 8.2 L Hct 25.2 L MCV 89.0 MCH 28.8 MCHC 32.3 L RDW 16.2 H Plt Count 371 Sodium 140 Potassium 4.1 Chloride 103 Carbon Dioxide 26 Anion Gap 15 BUN 11 Creatinine 0.5 L Est GFR ( Amer) > 60 Est GFR (Non-Af Amer) > 60 POC Glucose (mg/dL) 256 H Random Glucose 247 H Calcium 8.5 Total Bilirubin 0.2 AST 19 ALT 23 Alkaline Phosphatase 82 Total Protein 6.7 Albumin 2.9 L Globulin 3.8 Albumin/Globulin Ratio 0.8 L Assessment & Plan - Assessment and Plan (Free Text) Assessment: post stroke deppression mild neurocognitive disorder Plan: start zoloft 12.5mg daily
--- NOTE | 2017-07-18 23:47 | CP.PCM.PN ---
Subjective - Date & Time of Evaluation Date of Evaluation: 07/27/17 Time of Evaluation: 16:00 - Subjective Subjective: Feels well. Abdominal wall swelling persists Objective - Vital Signs/Intake and Output Vital Signs (last 24 hours): Temp Pulse Resp BP Pulse Ox 97.8 F 83 20 147/67 95 07/18/17 19:36 07/18/17 19:36 07/18/17 19:36 07/18/17 19:36 07/18/17 19:36 - Medications Medications: Current Medications Acetaminophen (Tylenol 325mg Tab) 650 mg PO Q6 PRN PRN Reason: fever > 100.4 Last Admin: 07/15/17 00:26 Dose: 650 mg Acetaminophen (Tylenol 325mg Tab) 325 mg PO Q4 PRN PRN Reason: Pain, Mild (1-3) Last Admin: 07/15/17 21:18 Dose: 325 mg Amlodipine Besylate (Norvasc) 10 mg PO DAILY [facility] Last Admin: 07/18/17 08:30 Dose: 10 mg Aspirin (Ecotrin) 81 mg PO DAILY [facility] Last Admin: 07/18/17 08:31 Dose: 81 mg Atorvastatin Calcium (Lipitor) 40 mg PO HS [facility] Last Admin: 07/18/17 22:03 Dose: 40 mg Bismuth Subsalicylate (Pepto-Bismol) 524 mg PO Q4 PRN PRN Reason: Diarrhea Last Admin: 07/17/17 08:53 Dose: 524 mg Clopidogrel Bisulfate (Plavix) 75 mg PO DAILY [facility] Last Admin: 07/18/17 08:29 Dose: 75 mg Cyanocobalamin (Vitamin B12 1000 Mcg/Ml Inj) 1,000 mcg SC DAILY [facility] Last Admin: 07/18/17 13:06 Dose: 1,000 mcg Dextrose (Dextrose 50% Inj) 0 ml IV STAT PRN; Protocol PRN Reason: Hypoglycemia Protocol Dextrose (Glutose 15) 0 gm PO ONCE PRN; Protocol PRN Reason: Hypoglycemia Protocol Enalapril Maleate (Vasotec) 2.5 mg PO BID [facility] Last Admin: 07/18/17 17:40 Dose: 2.5 mg Enoxaparin Sodium (Lovenox) 40 mg SC DAILY [facility] PRN Reason: Protocol Ergocalciferol (Drisdol 50,000 Intl Units Cap) 1 cap PO QWK [facility] Glucagon (Glucagen Diagnostic Kit) 0 mg IM STAT PRN; Protocol PRN Reason: Hypoglycemia Protocol Vancomycin HCl 1 gm/ Sodium (Chloride) 250 mls @ 250 mls/hr IVPB DAILY [facility] PRN Reason: Protocol Last Admin: 07/18/17 15:25 Dose: 250 mls/hr Piperacillin Sod/Tazobactam (Sod 4.5 gm/ Sodium Chloride) 100 mls @ 100 mls/hr IVPB Q8 [facility] PRN Reason: Protocol Last Admin: 07/18/17 17:37 Dose: 100 mls/hr Insulin Human Lispro (Humalog) 0 units SC ACHS [facility] PRN Reason: Protocol Last Admin: 07/18/17 22:01 Dose: Not Given Labetalol HCl (Trandate) 200 mg PO BID [facility] Last Admin: 07/18/17 17:38 Dose: 200 mg Metformin HCl (Glucophage) 500 mg PO BIDWM [facility] Last Admin: 07/18/17 17:38 Dose: 500 mg Pantoprazole Sodium (Protonix Ec Tab) 40 mg PO DAILY [facility] Last Admin: 07/18/17 08:30 Dose: 40 mg Repaglinide (Prandin) 1 mg PO TID [facility] Last Admin: 07/18/17 17:39 Dose: 1 mg Sertraline HCl (Zoloft) 12.5 mg PO DAILY [facility] Last Admin: 07/18/17 15:35 Dose: 12.5 mg Sitagliptin Phosphate (Januvia) 50 mg PO BID [facility] Last Admin: 07/18/17 17:38 Dose: 50 mg - Labs Labs: 07/18/17 07:35 07/18/17 07:35 PT 13.5 Seconds (9.8-13.1) H 07/12/17 10:50 INR 1.2 (0.9-1.2) 07/12/17 10:50 APTT 20.8 Seconds (25.6-37.1) L 07/12/17 10:50 - Head Exam Head Exam: ATRAUMATIC - ENT Exam ENT Exam: Mucous Membranes Moist - Neck Exam Neck Exam: Full ROM - Respiratory Exam Respiratory Exam: Clear to Ausculation Bilateral - Cardiovascular Exam Cardiovascular Exam: REGULAR RHYTHM - GI/Abdominal Exam GI & Abdominal Exam: Normal Bowel Sounds Additional comments: marked induration abdominal wall Assessment and Plan (1) Cellulitis Assessment & Plan: Had I and D today. Continue with abx Status: Acute
[2017-07-19] MEDS: Piperacillin/Tazobact 4.5 GM in Sodium Chloride 0.9% 100 ML IVPB SCH ×3 (00:54→18:08)
[2017-07-19 05:06] LABS: MEAN CELL VOLUME 88.9 fl (81.0-99.0); MEAN CORPUSCULAR HEMOGLOBIN 29.8 pg (27.0-31.0); MEAN CORPUSCULAR HGB CONC 33.5 g/dL (33.0-37.0); RBC 2.68 Mil/uL (3.80-5.20); RED CELL DISTRIBUTION WIDTH 16.1 % (11.5-14.5); WHITE BLOOD COUNT 6.9 K/uL (4.8-10.8)
[2017-07-19 05:13] LABS: BLOOD UREA NITROGEN 13 mg/dl (7-17); CALCIUM 8.4 mg/dL (8.4-10.2); GFR AFRICAN-AMERICAN > 60; GFR NON-AFRICAN AMERICAN > 60
[2017-07-19] MEDS: Insulin Lispro (humaLOG) 100 Units/ml Inj SC SCH ×4 (08:46→22:42)
--- NOTE | 2017-07-19 09:28 | CP.PCM.PN ---
Subjective - Date & Time of Evaluation Date of Evaluation: 07/19/17 Time of Evaluation: 09:25 - Subjective Subjective: General Surgery Consult Note 72F seen this AM for abdominal abscess s/p bedside I and D yesterday. Denies any new pain. Per nursing, no acute overnight events. No recent N/V/F/C/CP/SOB/ D Objective - Vital Signs/Intake and Output Vital Signs (last 24 hours): Temp Pulse Resp BP Pulse Ox 98.9 F 88 18 154/75 H 95 07/19/17 08:02 07/19/17 08:02 07/19/17 08:02 07/19/17 08:02 07/19/17 08:02 - Medications Medications: Current Medications Acetaminophen (Tylenol 325mg Tab) 650 mg PO Q6 PRN PRN Reason: fever > 100.4 Last Admin: 07/15/17 00:26 Dose: 650 mg Acetaminophen (Tylenol 325mg Tab) 325 mg PO Q4 PRN PRN Reason: Pain, Mild (1-3) Last Admin: 07/15/17 21:18 Dose: 325 mg Amlodipine Besylate (Norvasc) 10 mg PO DAILY [facility] Last Admin: 07/18/17 08:30 Dose: 10 mg Aspirin (Ecotrin) 81 mg PO DAILY [facility] Last Admin: 07/18/17 08:31 Dose: 81 mg Atorvastatin Calcium (Lipitor) 40 mg PO HS [facility] Last Admin: 07/18/17 22:03 Dose: 40 mg Bismuth Subsalicylate (Pepto-Bismol) 524 mg PO Q4 PRN PRN Reason: Diarrhea Last Admin: 07/17/17 08:53 Dose: 524 mg Clopidogrel Bisulfate (Plavix) 75 mg PO DAILY [facility] Last Admin: 07/18/17 08:29 Dose: 75 mg Cyanocobalamin (Vitamin B12 1000 Mcg/Ml Inj) 1,000 mcg SC DAILY [facility] Last Admin: 07/18/17 13:06 Dose: 1,000 mcg Dextrose (Dextrose 50% Inj) 0 ml IV STAT PRN; Protocol PRN Reason: Hypoglycemia Protocol Dextrose (Glutose 15) 0 gm PO ONCE PRN; Protocol PRN Reason: Hypoglycemia Protocol Enalapril Maleate (Vasotec) 2.5 mg PO BID [facility] Last Admin: 07/18/17 17:40 Dose: 2.5 mg Enoxaparin Sodium (Lovenox) 40 mg SC DAILY [facility] PRN Reason: Protocol Ergocalciferol (Drisdol 50,000 Intl Units Cap) 1 cap PO QWK [facility] Glucagon (Glucagen Diagnostic Kit) 0 mg IM STAT PRN; Protocol PRN Reason: Hypoglycemia Protocol Vancomycin HCl 1 gm/ Sodium (Chloride) 250 mls @ 250 mls/hr IVPB DAILY [facility] PRN Reason: Protocol Last Admin: 07/19/17 08:42 Dose: 250 mls/hr Piperacillin Sod/Tazobactam (Sod 4.5 gm/ Sodium Chloride) 100 mls @ 100 mls/hr IVPB Q8 [facility] PRN Reason: Protocol Last Admin: 07/19/17 08:43 Dose: 100 mls/hr Iron Sucrose 100 mg/ Sodium (Chloride) 105 mls @ 105 mls/hr IVPB DAILY [facility] Insulin Human Lispro (Humalog) 0 units SC ACHS [facility] PRN Reason: Protocol Last Admin: 07/18/17 22:01 Dose: Not Given Labetalol HCl (Trandate) 200 mg PO BID [facility] Last Admin: 07/18/17 17:38 Dose: 200 mg Metformin HCl (Glucophage) 500 mg PO BIDWM [facility] Last Admin: 07/18/17 17:38 Dose: 500 mg Pantoprazole Sodium (Protonix Ec Tab) 40 mg PO DAILY [facility] Last Admin: 07/18/17 08:30 Dose: 40 mg Repaglinide (Prandin) 1 mg PO TID [facility] Last Admin: 07/18/17 17:39 Dose: 1 mg Sertraline HCl (Zoloft) 12.5 mg PO DAILY [facility] Last Admin: 07/18/17 15:35 Dose: 12.5 mg Sitagliptin Phosphate (Januvia) 50 mg PO BID [facility] Last Admin: 07/18/17 17:38 Dose: 50 mg - Labs Labs: 07/19/17 04:15 07/19/17 04:15 PT 13.5 Seconds (9.8-13.1) H 07/12/17 10:50 INR 1.2 (0.9-1.2) 07/12/17 10:50 APTT 20.8 Seconds (25.6-37.1) L 07/12/17 10:50 - Constitutional Appears: Well, Non-toxic, No Acute Distress - Head Exam Head Exam: ATRAUMATIC, NORMOCEPHALIC - Respiratory Exam Respiratory Exam: NORMAL BREATHING PATTERN. absent: Respiratory Distress - GI/Abdominal Exam Additional comments: GT tube insertion site noted to have minimal drainage to bandaging with no periwound erythema, malodor or other clinical signs of infection I and D site with continued surrounding erythema. I and D site seen with packing in place. Roughly 4 cc of white/victor, non-malodorous drainage expressed from I and D site. Assessment and Plan - Assessment and Plan (Free Text) Assessment: 72F seen 1 day s/p I and D of abdominal abscess from displaced GT tube site Plan: Afebrile, absent leukocytosis PICC line successfully placed Continue IV abx F/u Wound cx Increase dressing changes 2x/day No plan for surgical intervention at this time Will continue to follow
[2017-07-19] MEDS: Pantoprazole 40 mg EC Tab PO SCH (09:44)
[2017-07-19] MEDS: Enoxaparin 40 mg Syringe SC SCH (09:45)
--- NOTE | 2017-07-19 11:04 | CP.PCM.PN ---
Subjective - Date & Time of Evaluation Date of Evaluation: 07/19/17 Time of Evaluation: 07:15 - Subjective Subjective: Patient seen and examined bedside with Dr Dobbs. Patient denies fever, n,abd pain , diarrhea. no overnight events. -c/w Abx IV Objective - Vital Signs/Intake and Output Vital Signs (last 24 hours): Temp Pulse Resp BP Pulse Ox 98.9 F 88 18 154/75 H 95 07/19/17 08:02 07/19/17 09:43 07/19/17 08:02 07/19/17 09:43 07/19/17 08:02 - Medications Medications: Current Medications Acetaminophen (Tylenol 325mg Tab) 650 mg PO Q6 PRN PRN Reason: fever > 100.4 Last Admin: 07/15/17 00:26 Dose: 650 mg Acetaminophen (Tylenol 325mg Tab) 325 mg PO Q4 PRN PRN Reason: Pain, Mild (1-3) Last Admin: 07/15/17 21:18 Dose: 325 mg Amlodipine Besylate (Norvasc) 10 mg PO DAILY [facility] Last Admin: 07/19/17 09:43 Dose: 10 mg Aspirin (Ecotrin) 81 mg PO DAILY [facility] Last Admin: 07/19/17 09:44 Dose: 81 mg Atorvastatin Calcium (Lipitor) 40 mg PO HS [facility] Last Admin: 07/18/17 22:03 Dose: 40 mg Bismuth Subsalicylate (Pepto-Bismol) 524 mg PO Q4 PRN PRN Reason: Diarrhea Last Admin: 07/17/17 08:53 Dose: 524 mg Clopidogrel Bisulfate (Plavix) 75 mg PO DAILY [facility] Last Admin: 07/19/17 09:44 Dose: 75 mg Cyanocobalamin (Vitamin B12 1000 Mcg/Ml Inj) 1,000 mcg SC DAILY [facility] Last Admin: 07/19/17 09:45 Dose: 1,000 mcg Dextrose (Dextrose 50% Inj) 0 ml IV STAT PRN; Protocol PRN Reason: Hypoglycemia Protocol Dextrose (Glutose 15) 0 gm PO ONCE PRN; Protocol PRN Reason: Hypoglycemia Protocol Enalapril Maleate (Vasotec) 2.5 mg PO BID [facility] Last Admin: 07/19/17 09:44 Dose: 2.5 mg Enoxaparin Sodium (Lovenox) 40 mg SC DAILY [facility] PRN Reason: Protocol Last Admin: 07/19/17 09:45 Dose: Not Given Epoetin Deejay (Procrit) 10,000 unit SC TTS [facility] Ergocalciferol (Drisdol 50,000 Intl Units Cap) 1 cap PO QWK [facility] Glucagon (Glucagen Diagnostic Kit) 0 mg IM STAT PRN; Protocol PRN Reason: Hypoglycemia Protocol Vancomycin HCl 1 gm/ Sodium (Chloride) 250 mls @ 250 mls/hr IVPB DAILY [facility] PRN Reason: Protocol Last Admin: 07/19/17 08:42 Dose: 250 mls/hr Piperacillin Sod/Tazobactam (Sod 4.5 gm/ Sodium Chloride) 100 mls @ 100 mls/hr IVPB Q8 [facility] PRN Reason: Protocol Last Admin: 07/19/17 08:43 Dose: 100 mls/hr Iron Sucrose 100 mg/ Sodium (Chloride) 105 mls @ 105 mls/hr IVPB DAILY [facility] Insulin Human Lispro (Humalog) 0 units SC ACHS [facility] PRN Reason: Protocol Last Admin: 07/19/17 08:46 Dose: 4 units Labetalol HCl (Trandate) 200 mg PO BID [facility] Last Admin: 07/19/17 09:43 Dose: 200 mg Metformin HCl (Glucophage) 500 mg PO BIDWM [facility] Last Admin: 07/18/17 17:38 Dose: 500 mg Pantoprazole Sodium (Protonix Ec Tab) 40 mg PO DAILY [facility] Last Admin: 07/19/17 09:44 Dose: 40 mg Repaglinide (Prandin) 1 mg PO TID [facility] Last Admin: 07/19/17 09:42 Dose: 1 mg Sertraline HCl (Zoloft) 12.5 mg PO DAILY [facility] Last Admin: 07/19/17 09:43 Dose: 12.5 mg Sitagliptin Phosphate (Januvia) 50 mg PO BID [facility] Last Admin: 07/19/17 09:42 Dose: 50 mg - Labs Labs: 07/19/17 04:15 07/19/17 04:15 PT 13.5 Seconds (9.8-13.1) H 07/12/17 10:50 INR 1.2 (0.9-1.2) 07/12/17 10:50 APTT 20.8 Seconds (25.6-37.1) L 07/12/17 10:50 - Constitutional Appears: Non-toxic, No Acute Distress - Head Exam Head Exam: ATRAUMATIC, NORMOCEPHALIC - Eye Exam Eye Exam: Normal appearance - ENT Exam ENT Exam: Normal Exam - Respiratory Exam Respiratory Exam: Clear to Ausculation Bilateral. absent: Rales, Rhonchi, Wheezes - Cardiovascular Exam Cardiovascular Exam: REGULAR RHYTHM, +S1, +S2 - GI/Abdominal Exam GI & Abdominal Exam: Soft, Tenderness, Normal Bowel Sounds Additional comments: mild Td on area of cellulitis. dressing C/D/I - Extremities Exam Extremities Exam: Normal Inspection. absent: Pedal Edema - Neurological Exam Neurological Exam: Alert, Awake - Psychiatric Exam Psychiatric exam: Normal Affect, Normal Mood - Skin Skin Exam: Erythema (around were peg tube was before) Assessment and Plan - Assessment and Plan (Free Text) Plan: 72 yo ,f, PMhx/o DM, CVA, HTN, Alzheimer who was admitted for for peg tube malfunctioning, abd wall cellulitis, sepsis 1) Sepsis -resolved -SIRS+ abd wall cellulitis+UTI -leukocytosis trending down 17.6 -9.6 -c/w vancomycin, Zosyn 2) Cellulitis abdominal wall -resolving -Secondary to peg tube malfunctioning -GI consult appreciated -c/w abx 3) Abdominal wall abscess - s/p day 1 of I and D of abdominal abscess from displaced GT tube site -Surgery consult appreciated -GI consult appreciated -c/w Abx Zosyn, Vancomycin by Picc line 4) UTI UA: hematuria, leukocyturia, leukocyte sterase positive - urine cx klebsiella sensitive to Zosyn -c/w zosyn, vanco. 5) DM -uncotrolled -hgba1c 16 on 03/31 -hgba1c 9.2 on 07/13/17 -c/w Januvia, repaglin -SSI, hypoglycemia protocol 6)HTN -c/w amlodipine, vasotec, labetalol 7)Anemia -mixed etiology, chronic disease and iron deficiency -on iron sucrose Iv daily 8) DVT Prophylaxis -Lovenox 40 mg sc daily
--- NOTE | 2017-07-19 15:11 | CP.PCM.PN ---
Subjective - Date & Time of Evaluation Date of Evaluation: 07/19/17 Time of Evaluation: 09:00 - Subjective Subjective: Patient w/o complaint. Had I&D yesterday. Objective - Vital Signs/Intake and Output Vital Signs (last 24 hours): Temp Pulse Resp BP Pulse Ox 97.3 F L 79 18 149/75 97 07/19/17 12:02 07/19/17 12:02 07/19/17 12:02 07/19/17 12:02 07/19/17 12:02 - Medications Medications: Current Medications Acetaminophen (Tylenol 325mg Tab) 650 mg PO Q6 PRN PRN Reason: fever > 100.4 Last Admin: 07/15/17 00:26 Dose: 650 mg Acetaminophen (Tylenol 325mg Tab) 325 mg PO Q4 PRN PRN Reason: Pain, Mild (1-3) Last Admin: 07/15/17 21:18 Dose: 325 mg Amlodipine Besylate (Norvasc) 10 mg PO DAILY [facility] Last Admin: 07/19/17 09:43 Dose: 10 mg Aspirin (Ecotrin) 81 mg PO DAILY [facility] Last Admin: 07/19/17 09:44 Dose: 81 mg Atorvastatin Calcium (Lipitor) 40 mg PO HS [facility] Last Admin: 07/18/17 22:03 Dose: 40 mg Bismuth Subsalicylate (Pepto-Bismol) 524 mg PO Q4 PRN PRN Reason: Diarrhea Last Admin: 07/17/17 08:53 Dose: 524 mg Clopidogrel Bisulfate (Plavix) 75 mg PO DAILY [facility] Last Admin: 07/19/17 09:44 Dose: 75 mg Cyanocobalamin (Vitamin B12 1000 Mcg/Ml Inj) 1,000 mcg SC DAILY [facility] Last Admin: 07/19/17 09:45 Dose: 1,000 mcg Dextrose (Dextrose 50% Inj) 0 ml IV STAT PRN; Protocol PRN Reason: Hypoglycemia Protocol Dextrose (Glutose 15) 0 gm PO ONCE PRN; Protocol PRN Reason: Hypoglycemia Protocol Enalapril Maleate (Vasotec) 2.5 mg PO BID [facility] Last Admin: 07/19/17 09:44 Dose: 2.5 mg Enoxaparin Sodium (Lovenox) 40 mg SC DAILY [facility] PRN Reason: Protocol Last Admin: 07/19/17 09:45 Dose: Not Given Epoetin Deejay (Procrit) 10,000 unit SC TTS [facility] Ergocalciferol (Drisdol 50,000 Intl Units Cap) 1 cap PO QWK [facility] Glucagon (Glucagen Diagnostic Kit) 0 mg IM STAT PRN; Protocol PRN Reason: Hypoglycemia Protocol Vancomycin HCl 1 gm/ Sodium (Chloride) 250 mls @ 250 mls/hr IVPB DAILY [facility] PRN Reason: Protocol Last Admin: 07/19/17 08:42 Dose: 250 mls/hr Piperacillin Sod/Tazobactam (Sod 4.5 gm/ Sodium Chloride) 100 mls @ 100 mls/hr IVPB Q8 [facility] PRN Reason: Protocol Last Admin: 07/19/17 08:43 Dose: 100 mls/hr Iron Sucrose 100 mg/ Sodium (Chloride) 105 mls @ 105 mls/hr IVPB DAILY [facility] Last Admin: 07/19/17 12:55 Dose: 105 mls/hr Insulin Human Lispro (Humalog) 0 units SC ACHS [facility] PRN Reason: Protocol Last Admin: 07/19/17 12:57 Dose: 6 units Labetalol HCl (Trandate) 200 mg PO BID [facility] Last Admin: 07/19/17 09:43 Dose: 200 mg Lactobacillus Acidophilus (Bacid Acidophilus) 1 cap PO BID [facility] Metformin HCl (Glucophage) 500 mg PO BIDWM [facility] Last Admin: 07/18/17 17:38 Dose: 500 mg Pantoprazole Sodium (Protonix Ec Tab) 40 mg PO DAILY [facility] Last Admin: 07/19/17 09:44 Dose: 40 mg Repaglinide (Prandin) 1 mg PO TID [facility] Last Admin: 07/19/17 12:57 Dose: 1 mg Sertraline HCl (Zoloft) 12.5 mg PO DAILY [facility] Last Admin: 07/19/17 09:43 Dose: 12.5 mg Sitagliptin Phosphate (Januvia) 50 mg PO BID [facility] Last Admin: 07/19/17 09:42 Dose: 50 mg - Labs Labs: 07/19/17 04:15 07/19/17 04:15 PT 13.5 Seconds (9.8-13.1) H 07/12/17 10:50 INR 1.2 (0.9-1.2) 07/12/17 10:50 APTT 20.8 Seconds (25.6-37.1) L 07/12/17 10:50 - Head Exam Head Exam: ATRAUMATIC - Eye Exam Eye Exam: Normal appearance - ENT Exam ENT Exam: Normal Exam - Neck Exam Neck Exam: Normal Inspection - Respiratory Exam Respiratory Exam: Clear to Ausculation Bilateral - Cardiovascular Exam Cardiovascular Exam: REGULAR RHYTHM - GI/Abdominal Exam GI & Abdominal Exam: Soft, Normal Bowel Sounds. absent: Tenderness Additional comments: Dressing in place. Assessment and Plan (1) Cellulitis Assessment & Plan: Ongoing abdominal wall swelling. S/p I&D . Continue IV antibiotics. Status: Acute
[2017-07-19] MEDS: Lactobacillus Acidophilus 500 MU Cap PO SCH (18:07)
[2017-07-20] MEDS: Piperacillin/Tazobact 4.5 GM in Sodium Chloride 0.9% 100 ML IVPB SCH ×3 (00:58→17:31)
[2017-07-20 05:47] LABS: HEMOGLOBIN 7.9 g/dL (12.0-16.0); MEAN CORPUSCULAR HEMOGLOBIN 29.2 pg (27.0-31.0); MEAN CORPUSCULAR HGB CONC 32.8 g/dL (33.0-37.0); RBC 2.71 Mil/uL (3.80-5.20); RED CELL DISTRIBUTION WIDTH 16.5 % (11.5-14.5); WHITE BLOOD COUNT 7.1 K/uL (4.8-10.8)
[2017-07-20 05:55] LABS: ALB/GLOB RATIO 0.8 (1.0-2.1); ALBUMIN 2.9 g/dL (3.5-5.0); ALT/SGPT 23 U/L (9-52); AST/SGOT 17 U/L (14-36); BLOOD UREA NITROGEN 11 mg/dl (7-17); CALCIUM 8.6 mg/dL (8.4-10.2); GFR AFRICAN-AMERICAN > 60; GFR NON-AFRICAN AMERICAN > 60
[2017-07-20] MEDS: Insulin Lispro (humaLOG) 100 Units/ml Inj SC SCH ×4 (08:09→21:54)
[2017-07-20] MEDS: Enoxaparin 40 mg Syringe SC SCH (08:26)
[2017-07-20] MEDS: Pantoprazole 40 mg EC Tab PO SCH (08:26)
[2017-07-20] MEDS: Ergocalciferol 50,000 Intl Units Cap PO SCH (08:28)
[2017-07-20] MEDS: Lactobacillus Acidophilus 500 MU Cap PO SCH ×2 (08:32→19:37)
--- NOTE | 2017-07-20 09:42 | CP.PCM.PN ---
Subjective - Date & Time of Evaluation Date of Evaluation: 07/20/17 Time of Evaluation: 07:00 - Subjective Subjective: Patient seen and exanined bedside with Dr Dobbs, sitting on chair. Patient reports feeling the same. She denies fever, n,v,d, abd pain. no overnight events c/w IV ABx ID consult suggested hgb trending down. Hgb 7.9. will transuse 2 U pRBC Objective - Vital Signs/Intake and Output Vital Signs (last 24 hours): Temp Pulse Resp BP Pulse Ox 97.8 F 82 18 136/61 96 07/20/17 07:52 07/20/17 08:26 07/20/17 07:52 07/20/17 08:26 07/20/17 07:52 Intake and Output: 07/20/17 07/20/17 06:59 18:59 Intake Total 240 Balance 240 - Medications Medications: Current Medications Acetaminophen (Tylenol 325mg Tab) 650 mg PO Q6 PRN PRN Reason: fever > 100.4 Last Admin: 07/15/17 00:26 Dose: 650 mg Acetaminophen (Tylenol 325mg Tab) 325 mg PO Q4 PRN PRN Reason: Pain, Mild (1-3) Last Admin: 07/15/17 21:18 Dose: 325 mg Amlodipine Besylate (Norvasc) 10 mg PO DAILY [facility] Last Admin: 07/20/17 08:26 Dose: 10 mg Aspirin (Ecotrin) 81 mg PO DAILY [facility] Last Admin: 07/20/17 08:26 Dose: 81 mg Atorvastatin Calcium (Lipitor) 40 mg PO HS [facility] Last Admin: 07/19/17 22:41 Dose: 40 mg Bismuth Subsalicylate (Pepto-Bismol) 524 mg PO Q4 PRN PRN Reason: Diarrhea Last Admin: 07/17/17 08:53 Dose: 524 mg Clopidogrel Bisulfate (Plavix) 75 mg PO DAILY [facility] Last Admin: 07/20/17 08:27 Dose: 75 mg Cyanocobalamin (Vitamin B12 1000 Mcg/Ml Inj) 1,000 mcg SC DAILY [facility] Last Admin: 07/20/17 08:28 Dose: 1,000 mcg Dextrose (Dextrose 50% Inj) 0 ml IV STAT PRN; Protocol PRN Reason: Hypoglycemia Protocol Dextrose (Glutose 15) 0 gm PO ONCE PRN; Protocol PRN Reason: Hypoglycemia Protocol Enalapril Maleate (Vasotec) 2.5 mg PO BID [facility] Last Admin: 07/20/17 08:25 Dose: 2.5 mg Enoxaparin Sodium (Lovenox) 40 mg SC DAILY [facility] PRN Reason: Protocol Last Admin: 07/20/17 08:26 Dose: Not Given Epoetin Deejay (Procrit) 10,000 unit SC TTS [facility] Ergocalciferol (Drisdol 50,000 Intl Units Cap) 1 cap PO QWK [facility] Last Admin: 07/20/17 08:28 Dose: 1 cap Glucagon (Glucagen Diagnostic Kit) 0 mg IM STAT PRN; Protocol PRN Reason: Hypoglycemia Protocol Vancomycin HCl 1 gm/ Sodium (Chloride) 250 mls @ 250 mls/hr IVPB DAILY [facility] PRN Reason: Protocol Last Admin: 07/20/17 08:32 Dose: 250 mls/hr Piperacillin Sod/Tazobactam (Sod 4.5 gm/ Sodium Chloride) 100 mls @ 100 mls/hr IVPB Q8 [facility] PRN Reason: Protocol Last Admin: 07/20/17 08:25 Dose: 100 mls/hr Iron Sucrose 100 mg/ Sodium (Chloride) 105 mls @ 105 mls/hr IVPB DAILY [facility] Last Admin: 07/19/17 12:55 Dose: 105 mls/hr Insulin Human Lispro (Humalog) 0 units SC ACHS [facility] PRN Reason: Protocol Last Admin: 07/20/17 08:09 Dose: Not Given Labetalol HCl (Trandate) 200 mg PO BID [facility] Last Admin: 07/20/17 08:26 Dose: 200 mg Lactobacillus Acidophilus (Bacid Acidophilus) 1 cap PO BID [facility] Last Admin: 07/20/17 08:32 Dose: 1 cap Metformin HCl (Glucophage) 500 mg PO BIDWM [facility] Last Admin: 07/20/17 08:25 Dose: 500 mg Pantoprazole Sodium (Protonix Ec Tab) 40 mg PO DAILY [facility] Last Admin: 07/20/17 08:26 Dose: 40 mg Repaglinide (Prandin) 1 mg PO TID [facility] Last Admin: 07/20/17 08:26 Dose: 1 mg Sertraline HCl (Zoloft) 12.5 mg PO DAILY [facility] Last Admin: 07/20/17 08:28 Dose: 12.5 mg Sitagliptin Phosphate (Januvia) 50 mg PO BID [facility] Last Admin: 07/20/17 08:27 Dose: 50 mg - Labs Labs: 07/20/17 04:45 07/20/17 04:45 PT 13.5 Seconds (9.8-13.1) H 07/12/17 10:50 INR 1.2 (0.9-1.2) 07/12/17 10:50 APTT 20.8 Seconds (25.6-37.1) L 07/12/17 10:50 - Constitutional Appears: Non-toxic, No Acute Distress - Head Exam Head Exam: ATRAUMATIC, NORMOCEPHALIC - Eye Exam Eye Exam: Normal appearance - ENT Exam ENT Exam: Normal Exam - Neck Exam Neck Exam: Normal Inspection - Respiratory Exam Respiratory Exam: Clear to Ausculation Bilateral. absent: Rales, Rhonchi, Wheezes - Cardiovascular Exam Cardiovascular Exam: REGULAR RHYTHM, +S1, +S2 - GI/Abdominal Exam GI & Abdominal Exam: Soft, Tenderness, Normal Bowel Sounds. absent: Guarding Additional comments: less area of erythema. mild Td around abscess area. Mild green discharge from drainage. hard consistency area palpated that goes to LUQ. - Extremities Exam Extremities Exam: Normal Inspection. absent: Pedal Edema - Neurological Exam Neurological Exam: Alert, Awake - Psychiatric Exam Psychiatric exam: Normal Mood - Skin Skin Exam: Pallor Assessment and Plan - Assessment and Plan (Free Text) Plan: 72 yo ,f, PMhx/o DM, CVA, HTN, Alzheimer who was admitted for for peg tube malfunctioning, abd wall cellulitis, sepsis 1) Cellulitis abdominal wall -resolved -Secondary to peg tube malfunctioning -GI consult appreciated -c/w abx vancomycin, Zosyn day 7 2) Abdominal wall abscess - s/p day 2 of I&D from displaced GT tube site -Surgery consult appreciated -GI consult appreciated: GT tube removed on admission . no more GT tube needed -c/w Abx Zosyn, Vancomycin by Picc line day 7 today -Id consult suggested Dr guadarrama 3) UTI UA: hematuria, leukocyturia, leukocyte sterase positive - urine cx klebsiella sensitive to Zosyn -c/w zosyn, vanco. 4) DM -uncotrolled -hgba1c 16 on 03/31 -hgba1c 9.2 on 07/13/17 -c/w Januvia, repaglin -SSI, hypoglycemia protocol 5)HTN -c/w amlodipine, vasotec, labetalol 6)Anemia -mixed etiology, chronic disease and iron deficiency -on iron sucrose Iv daily -hgb 7. 9 trending down for the last dayts. Will transfuse 2 units pRBC -f/u CBc tomorrow. 7) DVT Prophylaxis -Lovenox 40 mg sc daily
--- NOTE | 2017-07-20 11:43 | CP.PCM.PN ---
Subjective - Date & Time of Evaluation Date of Evaluation: 07/20/17 Time of Evaluation: 10:30 - Subjective Subjective: Patient seen and examined. Abdominal wound packing removed, drake drain placed. Continues to have purulent discharge. Patient's abdominal wound appears more indurated laterally this morning. Patient denies fever/chills. Objective - Vital Signs/Intake and Output Vital Signs (last 24 hours): Temp Pulse Resp BP Pulse Ox 97.8 F 83 18 136/61 96 07/20/17 07:52 07/20/17 09:00 07/20/17 07:52 07/20/17 08:26 07/20/17 07:52 Intake and Output: 07/20/17 07/20/17 06:59 18:59 Intake Total 240 Balance 240 - Medications Medications: Current Medications Acetaminophen (Tylenol 325mg Tab) 650 mg PO Q6 PRN PRN Reason: fever > 100.4 Last Admin: 07/15/17 00:26 Dose: 650 mg Acetaminophen (Tylenol 325mg Tab) 325 mg PO Q4 PRN PRN Reason: Pain, Mild (1-3) Last Admin: 07/15/17 21:18 Dose: 325 mg Amlodipine Besylate (Norvasc) 10 mg PO DAILY [facility] Last Admin: 07/20/17 08:26 Dose: 10 mg Aspirin (Ecotrin) 81 mg PO DAILY [facility] Last Admin: 07/20/17 08:26 Dose: 81 mg Atorvastatin Calcium (Lipitor) 40 mg PO HS [facility] Last Admin: 07/19/17 22:41 Dose: 40 mg Bismuth Subsalicylate (Pepto-Bismol) 524 mg PO Q4 PRN PRN Reason: Diarrhea Last Admin: 07/17/17 08:53 Dose: 524 mg Clopidogrel Bisulfate (Plavix) 75 mg PO DAILY [facility] Last Admin: 07/20/17 08:27 Dose: 75 mg Cyanocobalamin (Vitamin B12 1000 Mcg/Ml Inj) 1,000 mcg SC DAILY [facility] Last Admin: 07/20/17 08:28 Dose: 1,000 mcg Dextrose (Dextrose 50% Inj) 0 ml IV STAT PRN; Protocol PRN Reason: Hypoglycemia Protocol Dextrose (Glutose 15) 0 gm PO ONCE PRN; Protocol PRN Reason: Hypoglycemia Protocol Enalapril Maleate (Vasotec) 2.5 mg PO BID [facility] Last Admin: 07/20/17 08:25 Dose: 2.5 mg Enoxaparin Sodium (Lovenox) 40 mg SC DAILY [facility] PRN Reason: Protocol Last Admin: 07/20/17 08:26 Dose: Not Given Epoetin Deejay (Procrit) 10,000 unit SC TTS [facility] Ergocalciferol (Drisdol 50,000 Intl Units Cap) 1 cap PO QWK [facility] Last Admin: 07/20/17 08:28 Dose: 1 cap Glucagon (Glucagen Diagnostic Kit) 0 mg IM STAT PRN; Protocol PRN Reason: Hypoglycemia Protocol Vancomycin HCl 1 gm/ Sodium (Chloride) 250 mls @ 250 mls/hr IVPB DAILY [facility] PRN Reason: Protocol Last Admin: 07/20/17 08:32 Dose: 250 mls/hr Piperacillin Sod/Tazobactam (Sod 4.5 gm/ Sodium Chloride) 100 mls @ 100 mls/hr IVPB Q8 [facility] PRN Reason: Protocol Last Admin: 07/20/17 08:25 Dose: 100 mls/hr Iron Sucrose 100 mg/ Sodium (Chloride) 105 mls @ 105 mls/hr IVPB DAILY [facility] Last Admin: 07/19/17 12:55 Dose: 105 mls/hr Insulin Human Lispro (Humalog) 0 units SC ACHS [facility] PRN Reason: Protocol Last Admin: 07/20/17 08:09 Dose: Not Given Labetalol HCl (Trandate) 200 mg PO BID [facility] Last Admin: 07/20/17 08:26 Dose: 200 mg Lactobacillus Acidophilus (Bacid Acidophilus) 1 cap PO BID [facility] Last Admin: 07/20/17 08:32 Dose: 1 cap Metformin HCl (Glucophage) 500 mg PO BIDWM [facility] Last Admin: 07/20/17 08:25 Dose: 500 mg Pantoprazole Sodium (Protonix Ec Tab) 40 mg PO DAILY [facility] Last Admin: 07/20/17 08:26 Dose: 40 mg Repaglinide (Prandin) 1 mg PO TID [facility] Last Admin: 07/20/17 08:26 Dose: 1 mg Sertraline HCl (Zoloft) 12.5 mg PO DAILY [facility] Last Admin: 07/20/17 08:28 Dose: 12.5 mg Sitagliptin Phosphate (Januvia) 50 mg PO BID [facility] Last Admin: 07/20/17 08:27 Dose: 50 mg - Labs Labs: 07/20/17 04:45 07/20/17 04:45 PT 13.5 Seconds (9.8-13.1) H 07/12/17 10:50 INR 1.2 (0.9-1.2) 07/12/17 10:50 APTT 20.8 Seconds (25.6-37.1) L 07/12/17 10:50 - Constitutional Appears: No Acute Distress - Head Exam Head Exam: NORMOCEPHALIC - Eye Exam Eye Exam: Normal appearance - ENT Exam ENT Exam: Mucous Membranes Moist - Respiratory Exam Respiratory Exam: NORMAL BREATHING PATTERN - Cardiovascular Exam Cardiovascular Exam: +S1, +S2 - GI/Abdominal Exam GI & Abdominal Exam: Soft, Tenderness Additional comments: cellulitis purulent drainage. - Neurological Exam Neurological Exam: Alert, Awake, Oriented x3 - Psychiatric Exam Psychiatric exam: Normal Mood - Skin Skin Exam: Dry, Normal Color, Warm Assessment and Plan - Assessment and Plan (Free Text) Assessment: 72F w/ abdominal abscess 2/2 gastrostomy site infection Plan: Will obtain Abd CT scan with IV contrast to further assess abdominal abscess C/w local wound care C/w Abx Iftikhar PGY2 Further recs per Dr. Queen
--- NOTE | 2017-07-20 13:47 | CP.PCM.CON ---
History of Present Illness - History of Present Illness History of Present Illness: 72 year old female, with a past medical history of CVA, HTN, diabetes and Alzheimer's disease, who was sent to the emergency department from nursing facility with pain, redness and swelling around G-tube site. Patient was also found to be febrile upon arrival. believes redness has been there for several days. Patient is poor historian. History is significant for CVA earlier this year for which patient required G-tube after that. denies any vomiting, diarrhea, or shortness of breath. No further medical complaints. Gastrostomy tube was removed on 07/13/[address] Marin. . Denies any recent N/ V/F/C/CP/SOB/D or stomach pain. Patient passed swallow eval and states that she is tolerating her oral diet well. CT abd noted I and D done IV antibiotics in progress Abdominal wound packing removed, drake drain placed. Continues to have purulent discharge. Patient's abdominal wound appears more indurated laterally this morning. Patient denies fever/chills. Allergy : Oxycodone PSH: Abdominal PEG tube SHx: Denies EtOH, IVDU, Tobacco Meds: See MAY FHx: Reviewed and not pertinent - Medical History PMH: Alzheimer's Disease, CVA, Diabetes (type 2, NIDDM), HTN, Hypercholesterolemia Denies: HIV, Chronic Kidney Disease Review of Systems - Review of Systems Systems not reviewed;Unavailable: Altered Mental Status All systems: reviewed and no additional remarkable complaints except - Constitutional Constitutional: As Per HPI - EENT Eyes: absent: As Per HPI, Blind Spots, Blurred Vision, Change in Vision, Decreased Night Vision, Diplopia, Discharge, Dry Eye, Exophthalmos, Floaters, Irritation, Itchy Eyes, Loss of Peripheral Vision, Pain, Photophobia, Requires Corrective Lenses, Sees Flashes, Spots in Vision, Tunnel Vision, Other Visual Disturbances, Loss of Vision, Other Ears: absent: As Per HPI, Decreased Hearing, Ear Discharge, Ear Pain, Tinnitus, Abnormal Hearing, Disequilibrium, Dizziness, Other Nose/Mouth/Throat: absent: As Per HPI, Epistaxis, Nasal Congestion, Nasal Discharge, Nasal Obstruction, Nasal Trauma, Nose Pain, Post Nasal Drip, Sinus Pain, Sinus Pressure, Bleeding Gums, Change in Voice, Dental Pain, Dry Mouth, Dysphagia, Halitosis, Hoarsness, Lip Swelling, Mouth Lesions, Mouth Pain, Odynophagia, Sore Throat, Throat Swelling, Tongue Swelling, Facial Pain, Neck Pain, Neck Mass, Other - Breasts Breasts: absent: As Per HPI, Change in Shape, Mass, Pain, Nipple Discharge, Nipple Inversion, Skin Changes, Swelling, Other - Cardiovascular Cardiovascular: As Per HPI - Respiratory Respiratory: absent: As Per HPI, Cough, Dyspnea, Hemoptysis, Dyspnea on Exertion , Wheezing, Snoring, Stridor, Pain on Inspiration, Chest Congestion, Excessive Mucous Production, Change in Mucous Color, Pain with Coughing, Other - Gastrointestinal Gastrointestinal: As Per HPI, Abdominal Pain - Genitourinary Genitourinary: absent: As Per HPI, Change in Urinary Stream, Difficulty Urinating, Dysuria, Flank Pain, Hematuria, Pyuria, Nocturia, Urinary Incontinence, Urinary Frequency, Urinary Hesitance, Urinary Urgency, Voiding Freq/Small Amts, Freq UTI, Hx Renal/Bladder Calculi, Hx /Renal Surgery, Bladder Distension, Other - Reproductive: Female Reproductive:Female: absent: As Per HPI, Amenorrhea, Amenorrhea/ Control, Currently Menstual, Cycle <21 Days, Cycle >35 Days, Cycle Variable, Menses 1-7 Days, Menses >/= 8 Days, Menses Variable, Cycle > 4 Weeks Between, No Menses for 6 Months, Heavy Menses, Light Menses, Normal Menses, Spotting Between Cycles , S/P Hysterectomy, Menopausal, Post Menopausal, Premenarche, Abnormal Vaginal Bleeding, Dysmenorrhea, Dyspareunia, Genital Lesions, Genital Pruritis, Pelvic Pain, Prolapse Symptoms, Sexual Dysfunction, Vaginal Discharge, Vaginal Dryness , Vaginal Odor, Vaginal Pruritis, Other - Menstruation Menstruation: absent: As Per HPI, Amenorrhea, Amenorrhea/ Control, Currently Menstual, Cycle <21 Days, Cycle >35 Days, Cycle Variable, Menses 1-7 Days, Menses >/= 8 Days, Menses Variable, Cycle > 4 Weeks Between, No Menses for 6 Months, Heavy Menses, Light Menses, Normal Menses, Spotting Between Cycles , S/P Hysterectomy, Menopausal, Post Menopausal, Premenarche, Abnormal Vaginal Bleeding, Dysmenorrhea, Other - Musculoskeletal Musculoskeletal: absent: As Per HPI, Abnormal Gait, Arthralgias, Atrophy, Back Pain, Deformity, Joint Swelling, Limited Range of Motion, Loss of Height, Muscle Cramps, Muscle Weakness, Myalgias, Neck Pain, Numbness, Radiating Pain into Limb, Stiffness, Tingling, Other - Integumentary Integumentary: As Per HPI, Skin Pain, Wounds - Neurological Neurological: As Per HPI - Psychiatric Psychiatric: absent: As Per HPI, Abnormal Sleep Pattern, Anhedonia, Anxiety, Auditory Hallucinations, Behavioral Changes, Change in Appetite, Change in Libido, Confusion, Depression, Difficulty Concentrating, Hallucinations, Homicidal Ideation, Hopelessness, Irritability, Memory Loss, Mood Swings, Panic Attacks, Paranoia, Suicidal Ideation, Visual Hallucinations, Tactile Hallucinations, Other - Endocrine Endocrine: absent: As Per HPI, Change in Body Appearance, Change in Libido, Cold Intolorance, Deepening of Voice, Excessive Sweating, Fatigue, Flushing, Heat Intolorance, Increase in Ring/Shoe/Hat Size, Palpitations, Polydipsia, Polyphagia, Polyuria, Other - Hematologic/Lymphatic Hematologic: absent: As Per HPI, Easy Bleeding, Easy Bruising, Lymphadenopathy, Other Past Patient History - Past Medical History & Family History Past Medical History?: Yes - Past Social History Alcohol: None Drugs: Denies - CARDIAC Hx Hypercholesterolemia: Yes Hx Hypertension: Yes - PULMONARY Hx Respiratory Disorders: No - NEUROLOGICAL Hx Alzheimer's Disease: Yes - HEENT Hx HEENT Problems: No - RENAL Hx Chronic Kidney Disease: No - ENDOCRINE/METABOLIC Hx Endocrine Disorders: Yes Hx Diabetes Mellitus Type 2: Yes - HEMATOLOGICAL/ONCOLOGICAL Hx Human Immunodeficiency Virus (HIV): No - INTEGUMENTARY Hx Dermatological Problems: Yes Other/Comment: ulcers noted on bilateral great toes - MUSCULOSKELETAL/RHEUMATOLOGICAL Hx Musculoskeletal Disorders: No Hx Falls: No Other/Comment: let foot ulcer - GASTROINTESTINAL Hx Gastrointestinal Disorders: Yes Hx Gastroesophageal Reflux: Yes Hx Hemorrhoids: Yes - GENITOURINARY/GYNECOLOGICAL Hx Genitourinary Disorders: No - PSYCHIATRIC Hx Psychophysiologic Disorder: No Hx Substance Use: No - SURGICAL HISTORY Hx Surgeries: No Other/Comment: abdominal PEG tube - ANESTHESIA Hx Anesthesia: Yes Hx Anesthesia Reactions: No Hx Malignant Hyperthermia: No Meds Home Medications: Home Medication List Medication Instructions Recorded Confirmed Type Insulin Detemir [Levemir] 35 units SC HS #0 vial 07/12/17 Rx Allergies/Adverse Reactions: Allergies Allergy/AdvReac Type Severity Reaction Status Date / Time oxycodone Allergy RASH Verified 07/12/17 10:15 - Medications Medications: Current Medications Acetaminophen (Tylenol 325mg Tab) 650 mg PO Q6 PRN PRN Reason: fever > 100.4 Last Admin: 07/15/17 00:26 Dose: 650 mg Acetaminophen (Tylenol 325mg Tab) 325 mg PO Q4 PRN PRN Reason: Pain, Mild (1-3) Last Admin: 07/15/17 21:18 Dose: 325 mg Amlodipine Besylate (Norvasc) 10 mg PO DAILY [facility] Last Admin: 07/20/17 08:26 Dose: 10 mg Aspirin (Ecotrin) 81 mg PO DAILY [facility] Last Admin: 07/20/17 08:26 Dose: 81 mg Atorvastatin Calcium (Lipitor) 40 mg PO HS [facility] Last Admin: 07/19/17 22:41 Dose: 40 mg Bismuth Subsalicylate (Pepto-Bismol) 524 mg PO Q4 PRN PRN Reason: Diarrhea Last Admin: 07/17/17 08:53 Dose: 524 mg Clopidogrel Bisulfate (Plavix) 75 mg PO DAILY [facility] Last Admin: 07/20/17 08:27 Dose: 75 mg Cyanocobalamin (Vitamin B12 1000 Mcg/Ml Inj) 1,000 mcg SC DAILY [facility] Last Admin: 07/20/17 08:28 Dose: 1,000 mcg Dextrose (Dextrose 50% Inj) 0 ml IV STAT PRN; Protocol PRN Reason: Hypoglycemia Protocol Dextrose (Glutose 15) 0 gm PO ONCE PRN; Protocol PRN Reason: Hypoglycemia Protocol Enalapril Maleate (Vasotec) 2.5 mg PO BID [facility] Last Admin: 07/20/17 08:25 Dose: 2.5 mg Enoxaparin Sodium (Lovenox) 40 mg SC DAILY [facility] PRN Reason: Protocol Last Admin: 07/20/17 08:26 Dose: Not Given Epoetin Deejay (Procrit) 10,000 unit SC TTS [facility] Ergocalciferol (Drisdol 50,000 Intl Units Cap) 1 cap PO QWK [facility] Last Admin: 07/20/17 08:28 Dose: 1 cap Glucagon (Glucagen Diagnostic Kit) 0 mg IM STAT PRN; Protocol PRN Reason: Hypoglycemia Protocol Vancomycin HCl 1 gm/ Sodium (Chloride) 250 mls @ 250 mls/hr IVPB DAILY [facility] PRN Reason: Protocol Last Admin: 07/20/17 08:32 Dose: 250 mls/hr Piperacillin Sod/Tazobactam (Sod 4.5 gm/ Sodium Chloride) 100 mls @ 100 mls/hr IVPB Q8 [facility] PRN Reason: Protocol Last Admin: 07/20/17 08:25 Dose: 100 mls/hr Iron Sucrose 100 mg/ Sodium (Chloride) 105 mls @ 105 mls/hr IVPB DAILY [facility] Last Admin: 07/20/17 12:25 Dose: 105 mls/hr Insulin Human Lispro (Humalog) 0 units SC ACHS [facility] PRN Reason: Protocol Last Admin: 07/20/17 12:25 Dose: 4 units Labetalol HCl (Trandate) 200 mg PO BID [facility] Last Admin: 07/20/17 08:26 Dose: 200 mg Lactobacillus Acidophilus (Bacid Acidophilus) 1 cap PO BID [facility] Last Admin: 07/20/17 08:32 Dose: 1 cap Metformin HCl (Glucophage) 500 mg PO BIDWM [facility] Last Admin: 07/20/17 08:25 Dose: 500 mg Pantoprazole Sodium (Protonix Ec Tab) 40 mg PO DAILY [facility] Last Admin: 07/20/17 08:26 Dose: 40 mg Repaglinide (Prandin) 1 mg PO TID [facility] Last Admin: 07/20/17 12:25 Dose: 1 mg Sertraline HCl (Zoloft) 12.5 mg PO DAILY [facility] Last Admin: 07/20/17 08:28 Dose: 12.5 mg Sitagliptin Phosphate (Januvia) 50 mg PO BID [facility] Last Admin: 07/20/17 08:27 Dose: 50 mg Physical Exam - Constitutional Appears: Non-toxic, Chronically Ill - Head Exam Head Exam: NORMOCEPHALIC - Eye Exam Eye Exam: PERRL. absent: Scleral icterus - ENT Exam ENT Exam: Mucous Membranes Dry, Normal External Ear Exam - Neck Exam Neck exam: Negative for: Lymphadenopathy - Respiratory Exam Respiratory Exam: Decreased Breath Sounds, Clear to Auscultation Bilateral - Cardiovascular Exam Cardiovascular Exam: REGULAR RHYTHM, +S1, +S2 - GI/Abdominal Exam GI & Abdominal Exam: Diminished Bowel Sounds, Distended, Soft, Tenderness. absent: Rebound, Rigid Additional comments: wound present mild cellulitis - Rectal Exam Rectal Exam: Deferred - Exam Exam: NORMAL INSPECTION - Extremities Exam Extremities exam: Negative for: pedal edema - Back Exam Back exam: absent: CVA tenderness (L), CVA tenderness (R), paraspinal tenderness - Neurological Exam Neurological exam: Alert, CN II-XII Intact, Oriented x3, Reflexes Normal - Psychiatric Exam Psychiatric exam: Depressed - Skin Skin Exam: Dry Results - Vital Signs Recent Vital Signs: Last Vital Signs Temp 97.7 F 07/20/17 12:09 Pulse 85 07/20/17 12:09 Resp 18 07/20/17 12:09 BP 148/82 07/20/17 12:09 Pulse Ox 94 L 07/20/17 12:09 - Labs Result Diagrams: 07/20/17 04:45 07/20/17 04:45 Labs: Laboratory Results - last 24 hr 07/19/17 07/19/17 07/20/17 16:09 22:36 04:45 WBC 7.1 RBC 2.71 L Hgb 7.9 L Hct 24.1 L MCV 89.0 MCH 29.2 MCHC 32.8 L RDW 16.5 H Plt Count 377 Sodium Potassium Chloride Carbon Dioxide Anion Gap BUN Creatinine Est GFR ( Amer) Est GFR (Non-Af Amer) POC Glucose (mg/dL) 251 H 168 H Random Glucose Calcium Total Bilirubin AST ALT Alkaline Phosphatase Total Protein Albumin Globulin Albumin/Globulin Ratio Blood Type Antibody Screen Crossmatch BBK History Checked 07/20/17 07/20/17 07/20/17 04:45 05:25 10:08 WBC RBC Hgb Hct MCV MCH MCHC RDW Plt Count Sodium 142 Potassium 3.7 Chloride 103 Carbon Dioxide 28 Anion Gap 15 BUN 11 Creatinine 0.6 L Est GFR ( Amer) > 60 Est GFR (Non-Af Amer) > 60 POC Glucose (mg/dL) 145 H Random Glucose 137 H Calcium 8.6 Total Bilirubin 0.4 AST 17 ALT 23 Alkaline Phosphatase 76 Total Protein 6.6 Albumin 2.9 L Globulin 3.7 Albumin/Globulin Ratio 0.8 L Blood Type A POSITIVE Antibody Screen Negative Crossmatch See Detail BBK History Checked Patient has bt 07/20/17 11:06 WBC RBC Hgb Hct MCV MCH MCHC RDW Plt Count Sodium Potassium Chloride Carbon Dioxide Anion Gap BUN Creatinine Est GFR ( Amer) Est GFR (Non-Af Amer) POC Glucose (mg/dL) 254 H Random Glucose Calcium Total Bilirubin AST ALT Alkaline Phosphatase Total Protein Albumin Globulin Albumin/Globulin Ratio Blood Type Antibody Screen Crossmatch BBK History Checked Assessment & Plan (1) Abdominal wall cellulitis Status: Acute (2) Complication of feeding tube Status: Acute - Assessment and Plan (Free Text) Assessment: Abdominal wound packing removed, drake drain placed. Continues to have purulent discharge. Patient's abdominal wound appears more indurated laterally this morning. Patient denies fever/chills. for ct abd to assess for abscess cultures pending iv rx in progress wound care in progress
[2017-07-20] MEDS ORDERED: Iohexol 300 100 ML IJ ONE (15:11)
[2017-07-20] MEDS ORDERED: Sodium Chloride 0.9% 100 ML ONE (15:12)
--- NOTE | 2017-07-20 18:19 | CT ---
PROCEDURE: CT Abdomen and Pelvis with contrast HISTORY: abd abscess COMPARISON: 07/12/2017 TECHNIQUE: Contrast dose: 90 cc of Omnipaque 300 Radiation dose: Total exam DLP = 965 mGy-cm. This CT exam was performed using one or more of the following dose reduction techniques: Automated exposure control, adjustment of the mA and/or kV according to patient size, and/or use of iterative reconstruction technique. FINDINGS: LOWER THORAX: Unremarkable. LIVER: Unremarkable. No gross lesion or ductal dilatation. GALLBLADDER AND BILE DUCTS: Unremarkable. PANCREAS: Unremarkable. No gross lesion or ductal dilatation. SPLEEN: Unremarkable. ADRENALS: Unremarkable. No mass. KIDNEYS AND URETERS: Unremarkable. No hydronephrosis. No solid mass. VASCULATURE: Unremarkable. No aortic aneurysm. BOWEL: Unremarkable. No obstruction. No gross mural thickening. APPENDIX: Normal appendix. PERITONEUM: There is a fluid and gas collection in the subcutaneous tissues of the left anterior abdomen. This collection measures 9.3 cm with by 4.9 cm AP x 5.9 cm height. This is slightly decreased from the prior study. The malpositioned gastrostomy tube has been removed. There is no intra-abdominal collection LYMPH NODES: Unremarkable. No enlarged lymph nodes. BLADDER: Unremarkable. REPRODUCTIVE: Unremarkable. BONES: No acute fracture. OTHER FINDINGS: None. IMPRESSION: There is a fluid and gas collection in the subcutaneous tissues of the left anterior abdomen. This collection measures 9.3 cm width by 4.9 cm AP x 5.9 cm height. This is slightly decreased from the prior study. There is no intra-abdominal collection
--- NOTE | 2017-07-20 20:56 | CP.PCM.PN ---
Subjective - Date & Time of Evaluation Date of Evaluation: 07/20/17 Time of Evaluation: 09:00 - Subjective Subjective: W/o complaint Objective - Vital Signs/Intake and Output Vital Signs (last 24 hours): Temp Pulse Resp BP Pulse Ox 97.9 F 84 20 156/76 H 96 07/20/17 19:23 07/20/17 19:23 07/20/17 19:23 07/20/17 19:23 07/20/17 19:23 - Medications Medications: Current Medications Acetaminophen (Tylenol 325mg Tab) 650 mg PO Q6 PRN PRN Reason: fever > 100.4 Last Admin: 07/15/17 00:26 Dose: 650 mg Acetaminophen (Tylenol 325mg Tab) 325 mg PO Q4 PRN PRN Reason: Pain, Mild (1-3) Last Admin: 07/15/17 21:18 Dose: 325 mg Amlodipine Besylate (Norvasc) 10 mg PO DAILY [facility] Last Admin: 07/20/17 08:26 Dose: 10 mg Aspirin (Ecotrin) 81 mg PO DAILY [facility] Last Admin: 07/20/17 08:26 Dose: 81 mg Atorvastatin Calcium (Lipitor) 40 mg PO HS [facility] Last Admin: 07/19/17 22:41 Dose: 40 mg Bismuth Subsalicylate (Pepto-Bismol) 524 mg PO Q4 PRN PRN Reason: Diarrhea Last Admin: 07/17/17 08:53 Dose: 524 mg Clopidogrel Bisulfate (Plavix) 75 mg PO DAILY [facility] Last Admin: 07/20/17 08:27 Dose: 75 mg Cyanocobalamin (Vitamin B12 1000 Mcg/Ml Inj) 1,000 mcg SC DAILY [facility] Last Admin: 07/20/17 08:28 Dose: 1,000 mcg Dextrose (Dextrose 50% Inj) 0 ml IV STAT PRN; Protocol PRN Reason: Hypoglycemia Protocol Dextrose (Glutose 15) 0 gm PO ONCE PRN; Protocol PRN Reason: Hypoglycemia Protocol Enalapril Maleate (Vasotec) 2.5 mg PO BID [facility] Last Admin: 07/20/17 19:33 Dose: 2.5 mg Enoxaparin Sodium (Lovenox) 40 mg SC DAILY [facility] PRN Reason: Protocol Last Admin: 07/20/17 08:26 Dose: Not Given Epoetin Deejay (Procrit) 10,000 unit SC [facility] Ergocalciferol (Drisdol 50,000 Intl Units Cap) 1 cap PO QWK [facility] Last Admin: 07/20/17 08:28 Dose: 1 cap Glucagon (Glucagen Diagnostic Kit) 0 mg IM STAT PRN; Protocol PRN Reason: Hypoglycemia Protocol Vancomycin HCl 1 gm/ Sodium (Chloride) 250 mls @ 250 mls/hr IVPB DAILY [facility] PRN Reason: Protocol Last Admin: 07/20/17 08:32 Dose: 250 mls/hr Piperacillin Sod/Tazobactam (Sod 4.5 gm/ Sodium Chloride) 100 mls @ 100 mls/hr IVPB Q8 [facility] PRN Reason: Protocol Last Admin: 07/20/17 17:31 Dose: Not Given Iron Sucrose 100 mg/ Sodium (Chloride) 105 mls @ 105 mls/hr IVPB DAILY [facility] Last Admin: 07/20/17 12:25 Dose: 105 mls/hr Insulin Human Lispro (Humalog) 0 units SC ACHS [facility] PRN Reason: Protocol Last Admin: 07/20/17 19:33 Dose: Not Given Labetalol HCl (Trandate) 200 mg PO BID [facility] Last Admin: 07/20/17 19:33 Dose: 200 mg Lactobacillus Acidophilus (Bacid Acidophilus) 1 cap PO BID [facility] Last Admin: 07/20/17 19:37 Dose: Not Given Metformin HCl (Glucophage) 500 mg PO BIDWM [facility] Last Admin: 07/20/17 19:37 Dose: Not Given Pantoprazole Sodium (Protonix Ec Tab) 40 mg PO DAILY [facility] Last Admin: 07/20/17 08:26 Dose: 40 mg Repaglinide (Prandin) 1 mg PO TID [facility] Last Admin: 07/20/17 19:33 Dose: 1 mg Sertraline HCl (Zoloft) 12.5 mg PO DAILY [facility] Last Admin: 07/20/17 08:28 Dose: 12.5 mg Sitagliptin Phosphate (Januvia) 50 mg PO BID [facility] Last Admin: 07/20/17 19:33 Dose: 50 mg - Labs Labs: 07/20/17 04:45 07/20/17 04:45 PT 13.5 Seconds (9.8-13.1) H 07/12/17 10:50 INR 1.2 (0.9-1.2) 07/12/17 10:50 APTT 20.8 Seconds (25.6-37.1) L 07/12/17 10:50 - Head Exam Head Exam: ATRAUMATIC - Eye Exam Eye Exam: Normal appearance - ENT Exam ENT Exam: Normal Exam - Neck Exam Neck Exam: Full ROM - Respiratory Exam Respiratory Exam: Clear to Ausculation Bilateral - Cardiovascular Exam Cardiovascular Exam: REGULAR RHYTHM, +S1, +S2 - GI/Abdominal Exam GI & Abdominal Exam: Soft, Normal Bowel Sounds Additional comments: Marked induration abdominal wall Assessment and Plan (1) Cellulitis Assessment & Plan: Continue IV abx . ID consult. Status: Acute
[2017-07-21] MEDS: Piperacillin/Tazobact 4.5 GM in Sodium Chloride 0.9% 100 ML IVPB SCH ×4 (00:13→16:20)
[2017-07-21 06:43] LABS: BASO % 0.4 % (0.0-2.0); EOS # 0.2 K/uL (0.0-0.7); EOS % 2.2 % (0.0-4.0); HEMOGLOBIN 10.3 g/dL (12.0-16.0); LYMPH # 1.3 K/uL (1.0-4.3); LYMPH % 15.3 % (20.0-40.0); MEAN CELL VOLUME 88.4 fl (81.0-99.0); MEAN CORPUSCULAR HEMOGLOBIN 29.2 pg (27.0-31.0); MEAN PLATELET VOLUME 8.5 fl (7.2-11.7); MONO # 0.5 K/uL (0.0-0.8); MONO % 6.1 % (0.0-10.0); NEUT # 6.4 K/uL (1.8-7.0); NRBC % 0.1 % (0.0-0.0); RBC 3.51 Mil/uL (3.80-5.20); RED CELL DISTRIBUTION WIDTH 16.4 % (11.5-14.5); WHITE BLOOD COUNT 8.5 K/uL (4.8-10.8)
[2017-07-21 06:48] LABS: BLOOD UREA NITROGEN 13 mg/dl (7-17); CALCIUM 8.8 mg/dL (8.4-10.2); GFR AFRICAN-AMERICAN > 60; GFR NON-AFRICAN AMERICAN > 60
--- NOTE | 2017-07-21 07:37 | CP.PCM.PN ---
Subjective - Date & Time of Evaluation Date of Evaluation: 07/21/17 Time of Evaluation: 07:35 - Subjective Subjective: General Surgery Progress Note 72F with left abdominal wall abscess seen at bedside this AM. Shannon drain was seen to be previously removed from incision site. Continues to have purulent discharge. Erythema and fluctuance of abdominal wall noted to be increasing laterally. States that pain is still present, denies N/V/F/C/CP/SOB/D. Objective - Vital Signs/Intake and Output Vital Signs (last 24 hours): Temp Pulse Resp BP Pulse Ox 97.5 F L 91 H 18 145/65 94 L 07/21/17 04:55 07/21/17 04:55 07/21/17 04:55 07/21/17 04:55 07/21/17 04:55 - Medications Medications: Current Medications Acetaminophen (Tylenol 325mg Tab) 650 mg PO Q6 PRN PRN Reason: fever > 100.4 Last Admin: 07/15/17 00:26 Dose: 650 mg Acetaminophen (Tylenol 325mg Tab) 325 mg PO Q4 PRN PRN Reason: Pain, Mild (1-3) Last Admin: 07/15/17 21:18 Dose: 325 mg Amlodipine Besylate (Norvasc) 10 mg PO DAILY [facility] Last Admin: 07/20/17 08:26 Dose: 10 mg Aspirin (Ecotrin) 81 mg PO DAILY [facility] Last Admin: 07/20/17 08:26 Dose: 81 mg Atorvastatin Calcium (Lipitor) 40 mg PO HS [facility] Last Admin: 07/20/17 21:54 Dose: 40 mg Bismuth Subsalicylate (Pepto-Bismol) 524 mg PO Q4 PRN PRN Reason: Diarrhea Last Admin: 07/17/17 08:53 Dose: 524 mg Clopidogrel Bisulfate (Plavix) 75 mg PO DAILY [facility] Last Admin: 07/20/17 08:27 Dose: 75 mg Cyanocobalamin (Vitamin B12 1000 Mcg/Ml Inj) 1,000 mcg SC DAILY [facility] Last Admin: 07/20/17 08:28 Dose: 1,000 mcg Dextrose (Dextrose 50% Inj) 0 ml IV STAT PRN; Protocol PRN Reason: Hypoglycemia Protocol Dextrose (Glutose 15) 0 gm PO ONCE PRN; Protocol PRN Reason: Hypoglycemia Protocol Enalapril Maleate (Vasotec) 2.5 mg PO BID [facility] Last Admin: 07/20/17 19:33 Dose: 2.5 mg Enoxaparin Sodium (Lovenox) 40 mg SC DAILY [facility] PRN Reason: Protocol Last Admin: 07/20/17 08:26 Dose: Not Given Epoetin Deejay (Procrit) 10,000 unit SC TTS [facility] Ergocalciferol (Drisdol 50,000 Intl Units Cap) 1 cap PO QWK [facility] Last Admin: 07/20/17 08:28 Dose: 1 cap Glucagon (Glucagen Diagnostic Kit) 0 mg IM STAT PRN; Protocol PRN Reason: Hypoglycemia Protocol Vancomycin HCl 1 gm/ Sodium (Chloride) 250 mls @ 250 mls/hr IVPB DAILY [facility] PRN Reason: Protocol Last Admin: 07/20/17 08:32 Dose: 250 mls/hr Piperacillin Sod/Tazobactam (Sod 4.5 gm/ Sodium Chloride) 100 mls @ 100 mls/hr IVPB Q8 [facility] PRN Reason: Protocol Last Admin: 07/21/17 00:13 Dose: 100 mls/hr Iron Sucrose 100 mg/ Sodium (Chloride) 105 mls @ 105 mls/hr IVPB DAILY [facility] Last Admin: 07/20/17 12:25 Dose: 105 mls/hr Insulin Human Lispro (Humalog) 0 units SC ACHS [facility] PRN Reason: Protocol Last Admin: 07/20/17 21:54 Dose: Not Given Labetalol HCl (Trandate) 200 mg PO BID [facility] Last Admin: 07/20/17 19:33 Dose: 200 mg Lactobacillus Acidophilus (Bacid Acidophilus) 1 cap PO BID [facility] Last Admin: 07/20/17 19:37 Dose: Not Given Metformin HCl (Glucophage) 500 mg PO BIDWM [facility] Last Admin: 07/20/17 19:37 Dose: Not Given Pantoprazole Sodium (Protonix Ec Tab) 40 mg PO DAILY [facility] Last Admin: 07/20/17 08:26 Dose: 40 mg Repaglinide (Prandin) 1 mg PO TID [facility] Last Admin: 07/20/17 19:33 Dose: 1 mg Sertraline HCl (Zoloft) 12.5 mg PO DAILY [facility] Last Admin: 07/20/17 08:28 Dose: 12.5 mg Sitagliptin Phosphate (Januvia) 50 mg PO BID [facility] Last Admin: 07/20/17 19:33 Dose: 50 mg - Labs Labs: 07/21/17 06:30 07/21/17 06:30 PT 13.5 Seconds (9.8-13.1) H 07/12/17 10:50 INR 1.2 (0.9-1.2) 07/12/17 10:50 APTT 20.8 Seconds (25.6-37.1) L 07/12/17 10:50 - Constitutional Appears: Well, Non-toxic, No Acute Distress - Head Exam Head Exam: ATRAUMATIC, NORMOCEPHALIC - GI/Abdominal Exam Additional comments: POP to lateral abdominal wall Erythema and fluctuant changes noted to be increasing laterally along abdominal wall Approximately 4 cc of purulent drainage expressed from I and D site GT tube site continues to heal uneventfully - Neurological Exam Neurological Exam: Alert, Awake Additional comments: Dementia at baseline - Psychiatric Exam Psychiatric exam: Normal Affect, Normal Mood Assessment and Plan - Assessment and Plan (Free Text) Assessment: 72F w/ abdominal abscess 2/2 gastrostomy site infection Plan: Abd CT scan shows 9.3 cm x 4.9 cm x 5.9 cm collection of fluid and gas in subcutaneous tissue More purulent drainage expressed from I and D site this AM Wound dressed with plain packing, DSD WBC trending up; 8.5 today Pt for possible I and D in OR later today NPO diet Lovenox held PT/PTT/INR ordered Will discuss with Dr. Queen
--- NOTE | 2017-07-21 08:15 | CP.PCM.PN ---
Subjective - Date & Time of Evaluation Date of Evaluation: 07/21/17 Time of Evaluation: 14:00 - Subjective Subjective: Patient seen and examined bedside with Dr Dobbs. Patient reports feeling well. Awake, alert, mild dementia. Denies fever, cough, SOB, abd pain. able to tolerated regular diet. will go later to OR for wall abd abscess I& D second time. Objective - Vital Signs/Intake and Output Vital Signs (last 24 hours): Temp Pulse Resp BP Pulse Ox 97.8 F 93 H 20 177/94 H 92 L 07/21/17 08:11 07/21/17 08:11 07/21/17 08:11 07/21/17 08:11 07/21/17 08:11 - Medications Medications: Current Medications Acetaminophen (Tylenol 325mg Tab) 650 mg PO Q6 PRN PRN Reason: fever > 100.4 Last Admin: 07/15/17 00:26 Dose: 650 mg Acetaminophen (Tylenol 325mg Tab) 325 mg PO Q4 PRN PRN Reason: Pain, Mild (1-3) Last Admin: 07/15/17 21:18 Dose: 325 mg Amlodipine Besylate (Norvasc) 10 mg PO DAILY [facility] Last Admin: 07/20/17 08:26 Dose: 10 mg Aspirin (Ecotrin) 81 mg PO DAILY [facility] Last Admin: 07/20/17 08:26 Dose: 81 mg Atorvastatin Calcium (Lipitor) 40 mg PO HS [facility] Last Admin: 07/20/17 21:54 Dose: 40 mg Bismuth Subsalicylate (Pepto-Bismol) 524 mg PO Q4 PRN PRN Reason: Diarrhea Last Admin: 07/17/17 08:53 Dose: 524 mg Clopidogrel Bisulfate (Plavix) 75 mg PO DAILY [facility] Last Admin: 07/20/17 08:27 Dose: 75 mg Cyanocobalamin (Vitamin B12 1000 Mcg/Ml Inj) 1,000 mcg SC DAILY [facility] Last Admin: 07/20/17 08:28 Dose: 1,000 mcg Dextrose (Dextrose 50% Inj) 0 ml IV STAT PRN; Protocol PRN Reason: Hypoglycemia Protocol Dextrose (Glutose 15) 0 gm PO ONCE PRN; Protocol PRN Reason: Hypoglycemia Protocol Enalapril Maleate (Vasotec) 2.5 mg PO BID [facility] Last Admin: 07/20/17 19:33 Dose: 2.5 mg Enoxaparin Sodium (Lovenox) 40 mg SC DAILY [facility] PRN Reason: Protocol Last Admin: 07/20/17 08:26 Dose: Not Given Epoetin Deejay (Procrit) 10,000 unit SC TTS [facility] Ergocalciferol (Drisdol 50,000 Intl Units Cap) 1 cap PO QWK [facility] Last Admin: 07/20/17 08:28 Dose: 1 cap Glucagon (Glucagen Diagnostic Kit) 0 mg IM STAT PRN; Protocol PRN Reason: Hypoglycemia Protocol Vancomycin HCl 1 gm/ Sodium (Chloride) 250 mls @ 250 mls/hr IVPB DAILY [facility] PRN Reason: Protocol Last Admin: 07/20/17 08:32 Dose: 250 mls/hr Piperacillin Sod/Tazobactam (Sod 4.5 gm/ Sodium Chloride) 100 mls @ 100 mls/hr IVPB Q8 [facility] PRN Reason: Protocol Last Admin: 07/21/17 00:13 Dose: 100 mls/hr Iron Sucrose 100 mg/ Sodium (Chloride) 105 mls @ 105 mls/hr IVPB DAILY [facility] Last Admin: 07/20/17 12:25 Dose: 105 mls/hr Insulin Human Lispro (Humalog) 0 units SC ACHS [facility] PRN Reason: Protocol Last Admin: 07/20/17 21:54 Dose: Not Given Labetalol HCl (Trandate) 200 mg PO BID [facility] Last Admin: 07/20/17 19:33 Dose: 200 mg Lactobacillus Acidophilus (Bacid Acidophilus) 1 cap PO BID [facility] Last Admin: 07/20/17 19:37 Dose: Not Given Metformin HCl (Glucophage) 500 mg PO BIDWM [facility] Last Admin: 07/20/17 19:37 Dose: Not Given Pantoprazole Sodium (Protonix Ec Tab) 40 mg PO DAILY [facility] Last Admin: 07/20/17 08:26 Dose: 40 mg Repaglinide (Prandin) 1 mg PO TID [facility] Last Admin: 07/20/17 19:33 Dose: 1 mg Sertraline HCl (Zoloft) 12.5 mg PO DAILY [facility] Last Admin: 07/20/17 08:28 Dose: 12.5 mg Sitagliptin Phosphate (Januvia) 50 mg PO BID [facility] Last Admin: 07/20/17 19:33 Dose: 50 mg - Labs Labs: 07/21/17 06:30 07/21/17 06:30 PT 13.5 Seconds (9.8-13.1) H 07/12/17 10:50 INR 1.2 (0.9-1.2) 07/12/17 10:50 APTT 20.8 Seconds (25.6-37.1) L 07/12/17 10:50 - Constitutional Appears: Non-toxic, No Acute Distress - Head Exam Head Exam: ATRAUMATIC, NORMOCEPHALIC - Eye Exam Eye Exam: Normal appearance - ENT Exam ENT Exam: Mucous Membranes Moist - Neck Exam Neck Exam: Normal Inspection - Respiratory Exam Respiratory Exam: Clear to Ausculation Bilateral. absent: Rhonchi, Wheezes - Cardiovascular Exam Cardiovascular Exam: REGULAR RHYTHM. absent: +S1 - GI/Abdominal Exam GI & Abdominal Exam: Soft, Normal Bowel Sounds Additional comments: Area of abscess extending to the left side of abdomen over the abdominal wall, mild Td to palpation, hard consistency, no fluctuation area. mild skin erythema. . wound with packing. Dressing c/D/I - Extremities Exam Extremities Exam: Normal Inspection - Back Exam Back Exam: NORMAL INSPECTION - Neurological Exam Neurological Exam: Alert, Awake, Oriented x3 - Psychiatric Exam Psychiatric exam: Normal Affect, Normal Mood Assessment and Plan - Assessment and Plan (Free Text) Plan: 72 yo ,f, PMhx/o DM, CVA, HTN, Alzheimer who was admitted for for peg tube malfunctioning, abd wall cellulitis, sepsis 1) Cellulitis abdominal wall -resolved -Secondary to peg tube malfunctioning -GI consult appreciated -c/w abx vancomycin, Zosyn day 8 2) Abdominal wall abscess - s/p day 3 of I&D from displaced GT tube site -Surgery consult appreciated: will go OR for I & D again -GI consult appreciated: GT tube removed on admission . no more GT tube needed -c/w Abx Zosyn, Vancomycin by Picc line day 8 today -Id consult suggested Dr guadarrama : c/w same medications -wound cx growing yeast kristin. Started on diflucan today 3) UTI -resolving UA: hematuria, leukocyturia, leukocyte sterase positive - urine cx klebsiella sensitive to Zosyn -c/w zosyn, vanco. 4) DM -uncotrolled -hgba1c 16 on 03/31 -hgba1c 9.2 on 07/13/17 -c/w Januvia, repaglin -SSI, hypoglycemia protocol 5)HTN -c/w amlodipine, vasotec, labetalol 6)Anemia -mixed etiology, chronic disease and iron deficiency -on iron sucrose Iv daily -hgb 7. 9 trending down for the last dayts. s/p pRBC transfusion. Hgb 10.3 7) DVT Prophylaxis -Hold Lovenox. Will go to ER today
[2017-07-21] MEDS: Lactobacillus Acidophilus 500 MU Cap PO SCH ×2 (08:27→16:18)
[2017-07-21] MEDS: Insulin Lispro (humaLOG) 100 Units/ml Inj SC SCH ×5 (08:27→21:20)
[2017-07-21] MEDS: Pantoprazole 40 mg EC Tab PO SCH (08:28)
[2017-07-21] MEDS: EPOETIN ALFA 10,000 UNIT/ML ML SC SCH (08:32)
[2017-07-21 09:43] LABS: INR 1.1 (0.9-1.2); PARTIAL THROMBOPLASTIN TIME 26.2 Seconds (25.6-37.1); PROTHROMBIN TIME 11.7 Seconds (9.8-13.1)
[2017-07-21] MEDS: Fluconazole IV 100mg/50 ml NS 50 ML IVPB SCH (10:43)
[2017-07-21] MEDS ORDERED: Bacitracin Ointment 30 GM TUBE ONE (12:46)
[2017-07-21] MEDS ORDERED: Lidocaine 2% Inj (20ml) ONE (12:46)
[2017-07-21] MEDS ORDERED: Lidocaine 4% (Laryng-O-Jet) Kit MM ONE (13:06)
[2017-07-21] MEDS ORDERED: Etomidate 20 mg/10ml Inj IV ONE (13:06)
[2017-07-21] MEDS ORDERED: Propofol 10 mg/ml Inj (20 ML) ONE (13:06)
[2017-07-21] MEDS ORDERED: Phenylephrine 10 mg/ml Inj ONE (13:11)
[2017-07-21] MEDS ORDERED: Neostigmine 1:1000 (1 mg/ml) Inj ONE (13:11)
[2017-07-21] MEDS ORDERED: Rocuronium 10 mg/ml (5 ml) ONE (13:15)
[2017-07-21] MEDS ORDERED: Lactated Ringer's 1,000 ML IV ONE (13:20)
[2017-07-21] MEDS ORDERED: Benzoin Compund Tincture 30 ML TP ONE (14:07)
--- NOTE | 2017-07-21 14:49 | PCM.SURG1 ---
Surgeon's Initial Post Op Note - Surgeon's Notes Surgeon: Dr. Queen Admissions Counselor: Dr. Judge PGY2 Type of Anesthesia: General Endo Pre-Operative Diagnosis: abdominal soft tissue abscess Operative Findings: abdominal abscess Post-Operative Diagnosis: same Operation Performed: incision and drainage of abdominal soft tissue abscess Specimen/Specimens Removed: purulent fluid Estimated Blood Loss: EBL {In ML}: 5 Blood Products Given: N/A Drains Used: No Drains Post-Op Condition: Good Date of Surgery/Procedure: 07/21/17 Time of Surgery/Procedure: 13:00
[2017-07-22] MEDS: Piperacillin/Tazobact 4.5 GM in Sodium Chloride 0.9% 100 ML IVPB SCH ×3 (00:11→16:47)
--- NOTE | 2017-07-22 07:58 | CP.PCM.PN ---
Subjective - Date & Time of Evaluation Date of Evaluation: 07/22/17 Time of Evaluation: 07:56 - Subjective Subjective: General Surgery Progress Note 72F seen this AM after I and D of left abdominal wall abscess yesterday with Dr. Queen. Patient denies any new pain. Both wound bags noted to be well attached to surgical site with minimal serosanguinous drainage noted to both. Objective - Vital Signs/Intake and Output Vital Signs (last 24 hours): Temp Pulse Resp BP Pulse Ox 97.8 F 88 18 176/79 H 95 07/22/17 05:05 07/22/17 05:05 07/22/17 05:05 07/22/17 05:05 07/22/17 05:05 Intake and Output: 07/22/17 07/22/17 06:59 18:59 Intake Total 450 Output Total 50 Balance 400 - Medications Medications: Current Medications Acetaminophen (Tylenol 325mg Tab) 650 mg PO Q6 PRN PRN Reason: fever > 100.4 Last Admin: 07/15/17 00:26 Dose: 650 mg Acetaminophen (Tylenol 325mg Tab) 325 mg PO Q4 PRN PRN Reason: Pain, Mild (1-3) Last Admin: 07/22/17 05:36 Dose: 325 mg Amlodipine Besylate (Norvasc) 10 mg PO DAILY [facility] Last Admin: 07/21/17 08:28 Dose: Not Given Aspirin (Ecotrin) 81 mg PO DAILY [facility] Last Admin: 07/20/17 08:26 Dose: 81 mg Atorvastatin Calcium (Lipitor) 40 mg PO HS [facility] Last Admin: 07/21/17 21:18 Dose: 40 mg Bismuth Subsalicylate (Pepto-Bismol) 524 mg PO Q4 PRN PRN Reason: Diarrhea Last Admin: 07/17/17 08:53 Dose: 524 mg Clopidogrel Bisulfate (Plavix) 75 mg PO DAILY [facility] Last Admin: 07/20/17 08:27 Dose: 75 mg Cyanocobalamin (Vitamin B12 1000 Mcg/Ml Inj) 1,000 mcg SC DAILY [facility] Last Admin: 07/21/17 08:29 Dose: 1,000 mcg Dextrose (Dextrose 50% Inj) 0 ml IV STAT PRN; Protocol PRN Reason: Hypoglycemia Protocol Dextrose (Glutose 15) 0 gm PO ONCE PRN; Protocol PRN Reason: Hypoglycemia Protocol Enalapril Maleate (Vasotec) 2.5 mg PO BID [facility] Last Admin: 07/21/17 16:19 Dose: Not Given Enoxaparin Sodium (Lovenox) 40 mg SC DAILY [facility] PRN Reason: Protocol Last Admin: 07/20/17 08:26 Dose: Not Given Epoetin Deejay (Procrit) 10,000 unit SC TTS [facility] Last Admin: 07/21/17 08:32 Dose: 10,000 unit Ergocalciferol (Drisdol 50,000 Intl Units Cap) 1 cap PO QWK [facility] Last Admin: 07/20/17 08:28 Dose: 1 cap Glucagon (Glucagen Diagnostic Kit) 0 mg IM STAT PRN; Protocol PRN Reason: Hypoglycemia Protocol Vancomycin HCl 1 gm/ Sodium (Chloride) 250 mls @ 250 mls/hr IVPB DAILY [facility] PRN Reason: Protocol Last Admin: 07/21/17 08:32 Dose: 250 mls/hr Iron Sucrose 100 mg/ Sodium (Chloride) 105 mls @ 105 mls/hr IVPB DAILY [facility] Last Admin: 07/21/17 10:44 Dose: 105 mls/hr Piperacillin Sod/Tazobactam (Sod 4.5 gm/ Sodium Chloride) 100 mls @ 100 mls/hr IVPB Q8 [facility] PRN Reason: Protocol Last Admin: 07/22/17 00:11 Dose: 100 mls/hr Fluconazole (Diflucan Iv 100 Mg/50 Ml Ns) 50 mls @ 50 mls/hr IVPB DAILY [facility] PRN Reason: Protocol Last Admin: 07/21/17 10:43 Dose: 50 mls/hr Insulin Human Lispro (Humalog) 0 units SC ACHS [facility] PRN Reason: Protocol Last Admin: 07/21/17 21:20 Dose: Not Given Labetalol HCl (Trandate) 200 mg PO BID [facility] Last Admin: 07/21/17 16:19 Dose: Not Given Lactobacillus Acidophilus (Bacid Acidophilus) 1 cap PO BID [facility] Last Admin: 07/21/17 16:18 Dose: Not Given Metformin HCl (Glucophage) 500 mg PO BIDWM [facility] Last Admin: 07/21/17 16:18 Dose: Not Given Pantoprazole Sodium (Protonix Ec Tab) 40 mg PO DAILY [facility] Last Admin: 07/21/17 08:28 Dose: Not Given Repaglinide (Prandin) 1 mg PO TID [facility] Last Admin: 07/21/17 16:19 Dose: Not Given Sertraline HCl (Zoloft) 12.5 mg PO DAILY [facility] Last Admin: 07/21/17 08:29 Dose: Not Given Sitagliptin Phosphate (Januvia) 50 mg PO BID [facility] Last Admin: 07/21/17 16:18 Dose: Not Given - Labs Labs: 07/21/17 06:30 07/21/17 06:30 PT 11.7 Seconds (9.8-13.1) 07/21/17 09:00 INR 1.1 (0.9-1.2) 07/21/17 09:00 APTT 26.2 Seconds (25.6-37.1) 07/21/17 09:00 - Constitutional Appears: Well, Non-toxic, No Acute Distress - Head Exam Head Exam: ATRAUMATIC, NORMOCEPHALIC - GI/Abdominal Exam Additional comments: Both wound bags noted to be properly attached to abdomen Minimal serosanguinous drainage collection in both No purulent drainage, malodor or bleeding noted Erythematous changes to abdomen noted to be greatly improved at this time No POP to surgical site - Neurological Exam Neurological Exam: Alert, Awake - Psychiatric Exam Psychiatric exam: Normal Affect, Normal Mood Assessment and Plan - Assessment and Plan (Free Text) Assessment: 72F seen this AM after I and D of left abdominal wall abscess yesterday with Dr. Queen Plan: Afebrile, absent leujkocytosis IV abx F/u intra-op wound cx Incentive spirometer q1h Consistent carb diet F/u Bret for recs
[2017-07-22] MEDS ORDERED: Chlorhexidine Gluconate 1 APPL/PKT TP ONE (08:20)
--- NOTE | 2017-07-22 09:17 | CP.PCM.PN ---
Subjective - Date & Time of Evaluation Date of Evaluation: 07/22/17 Time of Evaluation: 07:20 - Subjective Subjective: Patient seen and examined bedside with Dr gibbons. Patient awake, alert, reports feeling well. denies fever, chest pain, SOb, n,v,d. Patient had I&D in OR. 2 wound bag over abdominal wall with small amount of serosanguineous discharge. no overnight events. Objective - Vital Signs/Intake and Output Vital Signs (last 24 hours): Temp Pulse Resp BP Pulse Ox 98.1 F 86 18 156/77 H 97 07/22/17 08:07 07/22/17 08:07 07/22/17 08:07 07/22/17 08:07 07/22/17 08:07 Intake and Output: 07/22/17 07/22/17 06:59 18:59 Intake Total 450 Output Total 50 Balance 400 - Medications Medications: Current Medications Acetaminophen (Tylenol 325mg Tab) 650 mg PO Q6 PRN PRN Reason: fever > 100.4 Last Admin: 07/15/17 00:26 Dose: 650 mg Acetaminophen (Tylenol 325mg Tab) 325 mg PO Q4 PRN PRN Reason: Pain, Mild (1-3) Last Admin: 07/22/17 05:36 Dose: 325 mg Amlodipine Besylate (Norvasc) 10 mg PO DAILY [facility] Last Admin: 07/21/17 08:28 Dose: Not Given Aspirin (Ecotrin) 81 mg PO DAILY [facility] Last Admin: 07/20/17 08:26 Dose: 81 mg Atorvastatin Calcium (Lipitor) 40 mg PO HS [facility] Last Admin: 07/21/17 21:18 Dose: 40 mg Bismuth Subsalicylate (Pepto-Bismol) 524 mg PO Q4 PRN PRN Reason: Diarrhea Last Admin: 07/17/17 08:53 Dose: 524 mg Clopidogrel Bisulfate (Plavix) 75 mg PO DAILY [facility] Last Admin: 07/20/17 08:27 Dose: 75 mg Cyanocobalamin (Vitamin B12 1000 Mcg/Ml Inj) 1,000 mcg SC DAILY [facility] Last Admin: 07/21/17 08:29 Dose: 1,000 mcg Dextrose (Dextrose 50% Inj) 0 ml IV STAT PRN; Protocol PRN Reason: Hypoglycemia Protocol Dextrose (Glutose 15) 0 gm PO ONCE PRN; Protocol PRN Reason: Hypoglycemia Protocol Enalapril Maleate (Vasotec) 2.5 mg PO BID [facility] Last Admin: 07/21/17 16:19 Dose: Not Given Enoxaparin Sodium (Lovenox) 40 mg SC DAILY [facility] PRN Reason: Protocol Last Admin: 07/20/17 08:26 Dose: Not Given Epoetin Deejay (Procrit) 10,000 unit SC TTS [facility] Last Admin: 07/21/17 08:32 Dose: 10,000 unit Ergocalciferol (Drisdol 50,000 Intl Units Cap) 1 cap PO QWK [facility] Last Admin: 07/20/17 08:28 Dose: 1 cap Glucagon (Glucagen Diagnostic Kit) 0 mg IM STAT PRN; Protocol PRN Reason: Hypoglycemia Protocol Vancomycin HCl 1 gm/ Sodium (Chloride) 250 mls @ 250 mls/hr IVPB DAILY [facility] PRN Reason: Protocol Last Admin: 07/21/17 08:32 Dose: 250 mls/hr Iron Sucrose 100 mg/ Sodium (Chloride) 105 mls @ 105 mls/hr IVPB DAILY [facility] Last Admin: 07/21/17 10:44 Dose: 105 mls/hr Piperacillin Sod/Tazobactam (Sod 4.5 gm/ Sodium Chloride) 100 mls @ 100 mls/hr IVPB Q8 [facility] PRN Reason: Protocol Last Admin: 07/22/17 00:11 Dose: 100 mls/hr Fluconazole (Diflucan Iv 100 Mg/50 Ml Ns) 50 mls @ 50 mls/hr IVPB DAILY [facility] PRN Reason: Protocol Last Admin: 07/21/17 10:43 Dose: 50 mls/hr Insulin Human Lispro (Humalog) 0 units SC ACHS [facility] PRN Reason: Protocol Last Admin: 07/21/17 21:20 Dose: Not Given Labetalol HCl (Trandate) 200 mg PO BID [facility] Last Admin: 07/21/17 16:19 Dose: Not Given Lactobacillus Acidophilus (Bacid Acidophilus) 1 cap PO BID [facility] Last Admin: 07/21/17 16:18 Dose: Not Given Metformin HCl (Glucophage) 500 mg PO BIDWM [facility] Last Admin: 07/21/17 16:18 Dose: Not Given Pantoprazole Sodium (Protonix Ec Tab) 40 mg PO DAILY [facility] Last Admin: 05/10/18 08:28 Dose: Not Given Repaglinide (Prandin) 1 mg PO TID [facility] Last Admin: 07/21/17 16:19 Dose: Not Given Sertraline HCl (Zoloft) 12.5 mg PO DAILY [facility] Last Admin: 07/21/17 08:29 Dose: Not Given Sitagliptin Phosphate (Januvia) 50 mg PO BID [facility] Last Admin: 07/21/17 16:18 Dose: Not Given - Labs Labs: 07/21/17 06:30 07/21/17 06:30 PT 11.7 Seconds (9.8-13.1) 07/21/17 09:00 INR 1.1 (0.9-1.2) 07/21/17 09:00 APTT 26.2 Seconds (25.6-37.1) 07/21/17 09:00 - Constitutional Appears: Non-toxic, No Acute Distress - Head Exam Head Exam: ATRAUMATIC, NORMOCEPHALIC - Eye Exam Eye Exam: Normal appearance - ENT Exam ENT Exam: Mucous Membranes Moist - Respiratory Exam Respiratory Exam: Clear to Ausculation Bilateral. absent: Rhonchi, Wheezes - Cardiovascular Exam Cardiovascular Exam: REGULAR RHYTHM, +S1, +S2 - GI/Abdominal Exam GI & Abdominal Exam: Soft, Normal Bowel Sounds. absent: Tenderness Additional comments: Abdominal wall with 2 wound bags with small serosanguineous discharged. no guarding, no rebound. cellulitis area improving - Extremities Exam Extremities Exam: Normal Inspection. absent: Pedal Edema - Neurological Exam Neurological Exam: Alert - Psychiatric Exam Psychiatric exam: Normal Affect, Normal Mood - Skin Skin Exam: Erythema Assessment and Plan - Assessment and Plan (Free Text) Plan: 72 yo ,f, PMhx/o DM, CVA, HTN, Alzheimer who was admitted for for peg tube malfunctioning, abd wall cellulitis, sepsis 1) Cellulitis abdominal wall -resolved -Secondary to peg tube malfunctioning -GI consult appreciated -c/w abx vancomycin, Zosyn day 9 2) Abdominal wall abscess - first time I&D 4 days ago from displaced GT tube site -s/p day 1 , second time I &D in OR.f/u wound cx -Surgery consult appreciated: -GI consult appreciated: GT tube removed on admission . no more GT tube needed -c/w Abx Zosyn, Vancomycin by Picc line day 9 today -Id consult suggested Dr guadarrama : c/w same medications -wound cx growing yeast kristin. Started on diflucan today 3) UTI -resolving UA: hematuria, leukocyturia, leukocyte sterase positive - urine cx klebsiella sensitive to Zosyn -c/w zosyn, vanco. 4) DM -uncotrolled -hgba1c 16 on 03/31 -hgba1c 9.2 on 07/13/17 -c/w Januvia, repaglin -SSI, hypoglycemia protocol 5)HTN -c/w amlodipine, vasotec, labetalol 6)Anemia -mixed etiology, chronic disease and iron deficiency -on iron sucrose Iv daily s/p pRBC transfusion. Hgb 10.3 7) DVT Prophylaxis -Lovenox 40 mg sc daily
[2017-07-22] MEDS: Insulin Lispro (humaLOG) 100 Units/ml Inj SC SCH ×4 (09:31→22:21)
[2017-07-22] MEDS: Lactobacillus Acidophilus 500 MU Cap PO SCH ×2 (09:36→17:13)
[2017-07-22] MEDS: Fluconazole IV 100mg/50 ml NS 50 ML IVPB SCH (09:37)
[2017-07-22] MEDS: Enoxaparin 40 mg Syringe SC SCH (09:38)
[2017-07-22] MEDS: Pantoprazole 40 mg EC Tab PO SCH (09:40)
--- NOTE | 2017-07-22 13:27 | CP.PCM.PN ---
Subjective - Date & Time of Evaluation Date of Evaluation: 07/22/17 Time of Evaluation: 08:00 - Subjective Subjective: events noted IV rx in progress Objective - Vital Signs/Intake and Output Vital Signs (last 24 hours): Temp Pulse Resp BP Pulse Ox 98.2 F 78 18 150/75 95 07/22/17 12:00 07/22/17 12:00 07/22/17 12:00 07/22/17 12:00 07/22/17 12:00 Intake and Output: 07/22/17 07/22/17 06:59 18:59 Intake Total 450 Output Total 50 Balance 400 - Medications Medications: Current Medications Acetaminophen (Tylenol 325mg Tab) 650 mg PO Q6 PRN PRN Reason: fever > 100.4 Last Admin: 07/15/17 00:26 Dose: 650 mg Acetaminophen (Tylenol 325mg Tab) 325 mg PO Q4 PRN PRN Reason: Pain, Mild (1-3) Last Admin: 07/22/17 05:36 Dose: 325 mg Amlodipine Besylate (Norvasc) 10 mg PO DAILY [facility] Last Admin: 07/22/17 09:39 Dose: 10 mg Aspirin (Ecotrin) 81 mg PO DAILY [facility] Last Admin: 07/22/17 09:37 Dose: 81 mg Atorvastatin Calcium (Lipitor) 40 mg PO HS [facility] Last Admin: 07/21/17 21:18 Dose: 40 mg Bismuth Subsalicylate (Pepto-Bismol) 524 mg PO Q4 PRN PRN Reason: Diarrhea Last Admin: 07/17/17 08:53 Dose: 524 mg Clopidogrel Bisulfate (Plavix) 75 mg PO DAILY [facility] Last Admin: 07/22/17 09:39 Dose: 75 mg Cyanocobalamin (Vitamin B12 1000 Mcg/Ml Inj) 1,000 mcg SC DAILY [facility] Last Admin: 07/22/17 09:36 Dose: 1,000 mcg Dextrose (Dextrose 50% Inj) 0 ml IV STAT PRN; Protocol PRN Reason: Hypoglycemia Protocol Dextrose (Glutose 15) 0 gm PO ONCE PRN; Protocol PRN Reason: Hypoglycemia Protocol Enalapril Maleate (Vasotec) 2.5 mg PO BID [facility] Last Admin: 07/22/17 09:40 Dose: 2.5 mg Enoxaparin Sodium (Lovenox) 40 mg SC DAILY [facility] PRN Reason: Protocol Last Admin: 07/22/17 09:38 Dose: 40 mg Epoetin Deejay (Procrit) 10,000 unit SC TTS [facility] Last Admin: 07/21/17 08:32 Dose: 10,000 unit Ergocalciferol (Drisdol 50,000 Intl Units Cap) 1 cap PO QWK [facility] Last Admin: 07/20/17 08:28 Dose: 1 cap Glucagon (Glucagen Diagnostic Kit) 0 mg IM STAT PRN; Protocol PRN Reason: Hypoglycemia Protocol Vancomycin HCl 1 gm/ Sodium (Chloride) 250 mls @ 250 mls/hr IVPB DAILY [facility] PRN Reason: Protocol Last Admin: 07/21/17 08:32 Dose: 250 mls/hr Iron Sucrose 100 mg/ Sodium (Chloride) 105 mls @ 105 mls/hr IVPB DAILY [facility] Last Admin: 07/22/17 09:40 Dose: 105 mls/hr Piperacillin Sod/Tazobactam (Sod 4.5 gm/ Sodium Chloride) 100 mls @ 100 mls/hr IVPB Q8 [facility] PRN Reason: Protocol Last Admin: 07/22/17 00:11 Dose: 100 mls/hr Fluconazole (Diflucan Iv 100 Mg/50 Ml Ns) 50 mls @ 50 mls/hr IVPB DAILY [facility] PRN Reason: Protocol Last Admin: 07/22/17 09:37 Dose: 50 mls/hr Insulin Human Lispro (Humalog) 0 units SC ACHS [facility] PRN Reason: Protocol Last Admin: 07/22/17 09:31 Dose: 3 units Labetalol HCl (Trandate) 200 mg PO BID [facility] Last Admin: 07/22/17 09:40 Dose: 200 mg Lactobacillus Acidophilus (Bacid Acidophilus) 1 cap PO BID [facility] Last Admin: 07/22/17 09:36 Dose: 1 cap Metformin HCl (Glucophage) 500 mg PO BIDWM [facility] Last Admin: 07/22/17 09:38 Dose: 500 mg Pantoprazole Sodium (Protonix Ec Tab) 40 mg PO DAILY [facility] Last Admin: 07/22/17 09:40 Dose: 40 mg Repaglinide (Prandin) 1 mg PO TID [facility] Last Admin: 07/22/17 09:38 Dose: 1 mg Sertraline HCl (Zoloft) 12.5 mg PO DAILY [facility] Last Admin: 07/22/17 09:41 Dose: 12.5 mg Sitagliptin Phosphate (Januvia) 50 mg PO BID [facility] Last Admin: 07/22/17 09:38 Dose: 50 mg - Labs Labs: 07/21/17 06:30 07/21/17 06:30 PT 11.7 Seconds (9.8-13.1) 07/21/17 09:00 INR 1.1 (0.9-1.2) 07/21/17 09:00 APTT 26.2 Seconds (25.6-37.1) 07/21/17 09:00 - Constitutional Appears: Non-toxic, Confused, Chronically Ill - Head Exam Head Exam: NORMOCEPHALIC - Eye Exam Eye Exam: PERRL. absent: Scleral icterus - ENT Exam ENT Exam: Mucous Membranes Dry - Neck Exam Neck Exam: absent: Lymphadenopathy - Respiratory Exam Respiratory Exam: Decreased Breath Sounds - Cardiovascular Exam Cardiovascular Exam: REGULAR RHYTHM - GI/Abdominal Exam GI & Abdominal Exam: Distended, Soft - Rectal Exam Rectal Exam: Deferred - Exam Exam: NORMAL INSPECTION - Extremities Exam Extremities Exam: absent: Pedal Edema - Back Exam Back Exam: absent: CVA tenderness (L), CVA tenderness (R) - Neurological Exam Neurological Exam: Alert, Awake, CN II-XII Intact - Psychiatric Exam Psychiatric exam: Depressed - Skin Skin Exam: Dry Assessment and Plan (1) Abdominal wall cellulitis Status: Acute (2) Complication of feeding tube Status: Acute - Assessment and Plan (Free Text) Assessment: cont iv then po rx
[2017-07-22 16:33] LABS: BASO % 0.5 % (0.0-2.0); EOS # 0.2 K/uL (0.0-0.7); EOS % 2.2 % (0.0-4.0); HEMOGLOBIN 10.5 g/dL (12.0-16.0); LYMPH # 1.4 K/uL (1.0-4.3); MEAN CELL VOLUME 88.8 fl (81.0-99.0); MEAN CORPUSCULAR HEMOGLOBIN 29.4 pg (27.0-31.0); MEAN CORPUSCULAR HGB CONC 33.1 g/dL (33.0-37.0); MEAN PLATELET VOLUME 8.5 fl (7.2-11.7); MONO # 0.4 K/uL (0.0-0.8); NEUT # 6.2 K/uL (1.8-7.0); NEUT % 75.3 % (50.0-75.0); NRBC % 0.1 % (0.0-0.0); RBC 3.59 Mil/uL (3.80-5.20); RED CELL DISTRIBUTION WIDTH 16.3 % (11.5-14.5); WHITE BLOOD COUNT 8.2 K/uL (4.8-10.8)
[2017-07-22 16:56] LABS: ALB/GLOB RATIO 0.9 (1.0-2.1); ALBUMIN 3.1 g/dL (3.5-5.0); ALT/SGPT 26 U/L (9-52); AST/SGOT 16 U/L (14-36); BLOOD UREA NITROGEN 11 mg/dl (7-17); CALCIUM 8.6 mg/dL (8.4-10.2); GFR AFRICAN-AMERICAN > 60; GFR NON-AFRICAN AMERICAN > 60
[2017-07-23] MEDS: Piperacillin/Tazobact 4.5 GM in Sodium Chloride 0.9% 100 ML IVPB SCH ×3 (00:08→17:58)
--- NOTE | 2017-07-23 08:05 | CP.PCM.PN ---
Subjective - Date & Time of Evaluation Date of Evaluation: 07/23/17 Time of Evaluation: 07:10 - Subjective Subjective: Patient seen and examined. No acute events over night. Abdominal wound bags with scant serosanguinous-purulent fluid . Erythema and induration along abdomen vastly improving. Objective - Vital Signs/Intake and Output Vital Signs (last 24 hours): Temp Pulse Resp BP Pulse Ox 97.4 F L 89 18 152/68 H 95 07/23/17 05:28 07/23/17 05:28 07/23/17 05:28 07/23/17 05:28 07/23/17 05:28 Intake and Output: 07/23/17 07/23/17 06:59 18:59 Output Total 25 Balance -25 - Medications Medications: Current Medications Acetaminophen (Tylenol 325mg Tab) 650 mg PO Q6 PRN PRN Reason: fever > 100.4 Last Admin: 07/15/17 00:26 Dose: 650 mg Acetaminophen (Tylenol 325mg Tab) 325 mg PO Q4 PRN PRN Reason: Pain, Mild (1-3) Last Admin: 07/22/17 05:36 Dose: 325 mg Amlodipine Besylate (Norvasc) 10 mg PO DAILY [facility] Last Admin: 07/22/17 09:39 Dose: 10 mg Aspirin (Ecotrin) 81 mg PO DAILY [facility] Last Admin: 07/22/17 09:37 Dose: 81 mg Atorvastatin Calcium (Lipitor) 40 mg PO HS [facility] Last Admin: 07/22/17 22:19 Dose: 40 mg Bismuth Subsalicylate (Pepto-Bismol) 524 mg PO Q4 PRN PRN Reason: Diarrhea Last Admin: 07/17/17 08:53 Dose: 524 mg Clopidogrel Bisulfate (Plavix) 75 mg PO DAILY [facility] Last Admin: 07/22/17 09:39 Dose: 75 mg Cyanocobalamin (Vitamin B12 1000 Mcg/Ml Inj) 1,000 mcg SC DAILY [facility] Last Admin: 07/22/17 09:36 Dose: 1,000 mcg Dextrose (Dextrose 50% Inj) 0 ml IV STAT PRN; Protocol PRN Reason: Hypoglycemia Protocol Dextrose (Glutose 15) 0 gm PO ONCE PRN; Protocol PRN Reason: Hypoglycemia Protocol Enalapril Maleate (Vasotec) 5 mg PO BID [facility] Enoxaparin Sodium (Lovenox) 40 mg SC DAILY [facility] PRN Reason: Protocol Last Admin: 07/22/17 09:38 Dose: 40 mg Epoetin Deejay (Procrit) 10,000 unit SC TTS [facility] Last Admin: 07/21/17 08:32 Dose: 10,000 unit Ergocalciferol (Drisdol 50,000 Intl Units Cap) 1 cap PO QWK [facility] Last Admin: 07/20/17 08:28 Dose: 1 cap Glucagon (Glucagen Diagnostic Kit) 0 mg IM STAT PRN; Protocol PRN Reason: Hypoglycemia Protocol Vancomycin HCl 1 gm/ Sodium (Chloride) 250 mls @ 250 mls/hr IVPB DAILY [facility] PRN Reason: Protocol Last Admin: 07/22/17 09:15 Dose: 250 mls/hr Iron Sucrose 100 mg/ Sodium (Chloride) 105 mls @ 105 mls/hr IVPB DAILY [facility] Last Admin: 07/22/17 09:40 Dose: 105 mls/hr Piperacillin Sod/Tazobactam (Sod 4.5 gm/ Sodium Chloride) 100 mls @ 100 mls/hr IVPB Q8 [facility] PRN Reason: Protocol Last Admin: 07/23/17 00:08 Dose: 100 mls/hr Fluconazole (Diflucan Iv 100 Mg/50 Ml Ns) 50 mls @ 50 mls/hr IVPB DAILY [facility] PRN Reason: Protocol Last Admin: 07/22/17 09:37 Dose: 50 mls/hr Insulin Human Lispro (Humalog) 0 units SC ACHS [facility] PRN Reason: Protocol Last Admin: 07/22/17 22:21 Dose: Not Given Labetalol HCl (Trandate) 200 mg PO BID [facility] Last Admin: 07/22/17 09:40 Dose: 200 mg Lactobacillus Acidophilus (Bacid Acidophilus) 1 cap PO BID [facility] Last Admin: 07/22/17 17:13 Dose: Not Given Metformin HCl (Glucophage) 500 mg PO BIDWM [facility] Last Admin: 07/22/17 16:48 Dose: 500 mg Pantoprazole Sodium (Protonix Ec Tab) 40 mg PO DAILY [facility] Last Admin: 07/22/17 09:40 Dose: 40 mg Repaglinide (Prandin) 2 mg PO DIN [facility] Repaglinide (Prandin) 1 mg PO BIDWM@0730,1200 [facility] Sertraline HCl (Zoloft) 12.5 mg PO DAILY [facility] Last Admin: 07/22/17 09:41 Dose: 12.5 mg Sitagliptin Phosphate (Januvia) 50 mg PO BID [facility] Last Admin: 07/22/17 16:48 Dose: 50 mg - Labs Labs: 07/22/17 16:20 07/22/17 16:20 PT 11.7 Seconds (9.8-13.1) 07/21/17 09:00 INR 1.1 (0.9-1.2) 07/21/17 09:00 APTT 26.2 Seconds (25.6-37.1) 07/21/17 09:00 - Constitutional Appears: No Acute Distress - Head Exam Head Exam: NORMOCEPHALIC - Eye Exam Eye Exam: Normal appearance - ENT Exam ENT Exam: Mucous Membranes Moist - Respiratory Exam Respiratory Exam: NORMAL BREATHING PATTERN - Cardiovascular Exam Cardiovascular Exam: +S1, +S2 - GI/Abdominal Exam GI & Abdominal Exam: Soft. absent: Distended, Firm, Guarding, Rigid, Tenderness - Neurological Exam Neurological Exam: Alert, Awake, Oriented x3 - Psychiatric Exam Psychiatric exam: Normal Mood - Skin Skin Exam: Dry, Intact, Warm Assessment and Plan - Assessment and Plan (Free Text) Assessment: 72F w/ left abdominal wall abscess s/p I&D POD 2 Plan: ABx per ID F/u intra-op wound cx Incentive spirometer q1h Consistent carb diet Resume DVT ppx Further recs per Dr. Bret Buitrago PGY2
--- NOTE | 2017-07-23 09:56 | PN ---
DATE: 07/23/2017 SUBJECTIVE: The patient is seen and examined. Interim events noted. Consults noted and appreciated. The patient remains in Progressive Care Unit on telemetry monitoring. The patient feels okay. Denies any specific complaints. The patient is not a good historian. No chest pain, shortness of breath or abdominal pain. No diarrhea or constipation. PHYSICAL EXAMINATION: GENERAL: The patient is in no acute distress. VITAL SIGNS: Stable. HEART: S1 and S2, normal and regular. LUNGS: Good bilateral air exchange. ABDOMEN: Soft and nontender. No organomegaly. No fluid. Bowel sounds are plus and normal. No sign of acute abdomen. No guarding, no rigidity, and no rebound. The patient has two bloody discharge, amount is minimal. EXTREMITIES: No edema. No calf swelling. No tenderness. No acute ischemia. CENTRAL NERVOUS SYSTEM: Exam is essentially unchanged. DIAGNOSTIC DATA: Available diagnostic data reviewed. Telemetry monitoring does not reveal significant arrhythmia. ASSESSMENT AND PLAN: Overall, the patient's general medical condition is stable. Plan as ordered. Sebastián Dobbs MD
[2017-07-23] MEDS: Pantoprazole 40 mg EC Tab PO SCH (10:06)
[2017-07-23] MEDS: Enoxaparin 40 mg Syringe SC SCH (10:07)
[2017-07-23] MEDS: Insulin Lispro (humaLOG) 100 Units/ml Inj SC SCH ×3 (10:08→18:04)
[2017-07-23] MEDS: Fluconazole IV 100mg/50 ml NS 50 ML IVPB SCH (10:09)
[2017-07-23] MEDS: Lactobacillus Acidophilus 500 MU Cap PO SCH ×2 (10:13→18:06)
[2017-07-23] MEDS: EPOETIN ALFA 10,000 UNIT/ML ML SC SCH (10:13)
[2017-07-23] MEDS ORDERED: Potassium Chloride 20 mEq ER Tab PO ONE (12:02)
--- NOTE | 2017-07-23 13:18 | CP.PCM.PN ---
Subjective - Date & Time of Evaluation Date of Evaluation: 07/23/17 Time of Evaluation: 08:00 - Subjective Subjective: drainage appears to be less no fever nad Objective - Vital Signs/Intake and Output Vital Signs (last 24 hours): Temp Pulse Resp BP Pulse Ox 98.2 F 90 20 154/74 H 96 07/23/17 12:23 07/23/17 12:23 07/23/17 12:23 07/23/17 12:23 07/23/17 12:23 Intake and Output: 07/23/17 07/23/17 06:59 18:59 Output Total 25 Balance -25 - Medications Medications: Current Medications Acetaminophen (Tylenol 325mg Tab) 650 mg PO Q6 PRN PRN Reason: fever > 100.4 Last Admin: 07/15/17 00:26 Dose: 650 mg Acetaminophen (Tylenol 325mg Tab) 325 mg PO Q4 PRN PRN Reason: Pain, Mild (1-3) Last Admin: 07/22/17 05:36 Dose: 325 mg Amlodipine Besylate (Norvasc) 10 mg PO DAILY [facility] Last Admin: 07/23/17 10:07 Dose: 10 mg Aspirin (Ecotrin) 81 mg PO DAILY [facility] Last Admin: 07/23/17 10:09 Dose: 81 mg Atorvastatin Calcium (Lipitor) 40 mg PO HS [facility] Last Admin: 07/22/17 22:19 Dose: 40 mg Bismuth Subsalicylate (Pepto-Bismol) 524 mg PO Q4 PRN PRN Reason: Diarrhea Last Admin: 07/17/17 08:53 Dose: 524 mg Clopidogrel Bisulfate (Plavix) 75 mg PO DAILY [facility] Last Admin: 07/23/17 10:07 Dose: 75 mg Cyanocobalamin (Vitamin B12 1000 Mcg/Ml Inj) 1,000 mcg SC DAILY [facility] Last Admin: 07/23/17 10:02 Dose: 1,000 mcg Dextrose (Dextrose 50% Inj) 0 ml IV STAT PRN; Protocol PRN Reason: Hypoglycemia Protocol Dextrose (Glutose 15) 0 gm PO ONCE PRN; Protocol PRN Reason: Hypoglycemia Protocol Enalapril Maleate (Vasotec) 5 mg PO BID [facility] Last Admin: 07/23/17 10:14 Dose: 5 mg Enoxaparin Sodium (Lovenox) 40 mg SC DAILY [facility] PRN Reason: Protocol Last Admin: 07/23/17 10:07 Dose: 40 mg Epoetin Deejay (Procrit) 10,000 unit SC TTS [facility] Last Admin: 07/23/17 10:13 Dose: 10,000 unit Ergocalciferol (Drisdol 50,000 Intl Units Cap) 1 cap PO QWK [facility] Last Admin: 07/20/17 08:28 Dose: 1 cap Glucagon (Glucagen Diagnostic Kit) 0 mg IM STAT PRN; Protocol PRN Reason: Hypoglycemia Protocol Vancomycin HCl 1 gm/ Sodium (Chloride) 250 mls @ 250 mls/hr IVPB DAILY [facility] PRN Reason: Protocol Last Admin: 07/23/17 10:10 Dose: 250 mls/hr Iron Sucrose 100 mg/ Sodium (Chloride) 105 mls @ 105 mls/hr IVPB DAILY [facility] Last Admin: 07/23/17 10:11 Dose: 105 mls/hr Piperacillin Sod/Tazobactam (Sod 4.5 gm/ Sodium Chloride) 100 mls @ 100 mls/hr IVPB Q8 [facility] PRN Reason: Protocol Last Admin: 07/23/17 10:10 Dose: 100 mls/hr Fluconazole (Diflucan Iv 100 Mg/50 Ml Ns) 50 mls @ 50 mls/hr IVPB DAILY [facility] PRN Reason: Protocol Last Admin: 07/23/17 10:09 Dose: 50 mls/hr Insulin Human Lispro (Humalog) 0 units SC ACHS [facility] PRN Reason: Protocol Last Admin: 07/23/17 11:54 Dose: Not Given Labetalol HCl (Trandate) 200 mg PO BID [facility] Last Admin: 07/23/17 10:06 Dose: 200 mg Lactobacillus Acidophilus (Bacid Acidophilus) 1 cap PO BID [facility] Last Admin: 07/23/17 10:13 Dose: 1 cap Metformin HCl (Glucophage) 500 mg PO BIDWM [facility] Last Admin: 07/23/17 10:09 Dose: 500 mg Pantoprazole Sodium (Protonix Ec Tab) 40 mg PO DAILY [facility] Last Admin: 07/23/17 10:06 Dose: 40 mg Repaglinide (Prandin) 2 mg PO DIN [facility] Repaglinide (Prandin) 1 mg PO BIDWM@0730,1200 [facility] Last Admin: 07/23/17 12:33 Dose: 1 mg Sertraline HCl (Zoloft) 12.5 mg PO DAILY [facility] Last Admin: 07/23/17 10:02 Dose: 12.5 mg Sitagliptin Phosphate (Januvia) 50 mg PO BID [facility] Last Admin: 07/23/17 10:07 Dose: 50 mg - Labs Labs: 07/22/17 16:20 07/22/17 16:20 PT 11.7 Seconds (9.8-13.1) 07/21/17 09:00 INR 1.1 (0.9-1.2) 07/21/17 09:00 APTT 26.2 Seconds (25.6-37.1) 07/21/17 09:00 - Constitutional Appears: Non-toxic, Chronically Ill - Head Exam Head Exam: NORMOCEPHALIC - Eye Exam Eye Exam: PERRL - ENT Exam ENT Exam: Mucous Membranes Dry - Neck Exam Neck Exam: absent: Lymphadenopathy - Cardiovascular Exam Cardiovascular Exam: REGULAR RHYTHM, +S1, +S2 - GI/Abdominal Exam GI & Abdominal Exam: Distended, Soft, Tenderness - Rectal Exam Rectal Exam: Deferred - Exam Exam: NORMAL INSPECTION - Extremities Exam Extremities Exam: absent: Pedal Edema - Back Exam Back Exam: absent: CVA tenderness (L), CVA tenderness (R) - Neurological Exam Neurological Exam: Alert, Awake, CN II-XII Intact Assessment and Plan (1) Abdominal wall cellulitis Status: Acute (2) Complication of feeding tube Status: Acute - Assessment and Plan (Free Text) Assessment: cont iv rx as ordered cont wound care nutritional support
[2017-07-24] MEDS: Insulin Lispro (humaLOG) 100 Units/ml Inj SC SCH ×5 (01:16→23:38)
[2017-07-24] MEDS: Piperacillin/Tazobact 4.5 GM in Sodium Chloride 0.9% 100 ML IVPB SCH ×2 (01:30→10:27)
[2017-07-24 06:49] LABS: HEMOGLOBIN 9.6 g/dL (12.0-16.0); MEAN CELL VOLUME 89.1 fl (81.0-99.0); MEAN CORPUSCULAR HEMOGLOBIN 29.7 pg (27.0-31.0); MEAN CORPUSCULAR HGB CONC 33.3 g/dL (33.0-37.0); RBC 3.23 Mil/uL (3.80-5.20); RED CELL DISTRIBUTION WIDTH 15.9 % (11.5-14.5); WHITE BLOOD COUNT 7.6 K/uL (4.8-10.8)
[2017-07-24 07:08] LABS: ALB/GLOB RATIO 0.8 (1.0-2.1); ALT/SGPT 22 U/L (9-52); AST/SGOT 27 U/L (14-36); BLOOD UREA NITROGEN 9 mg/dl (7-17); CALCIUM 8.7 mg/dL (8.4-10.2); GFR AFRICAN-AMERICAN > 60; GFR NON-AFRICAN AMERICAN > 60
--- NOTE | 2017-07-24 08:28 | CP.PCM.PN ---
Subjective - Date & Time of Evaluation Date of Evaluation: 07/24/17 Time of Evaluation: 08:25 - Subjective Subjective: Surgery Patient seen and examined. No acute events. Afebrile. Wound bag in place. Small about on purulent fluids. Objective - Vital Signs/Intake and Output Vital Signs (last 24 hours): Temp Pulse Resp BP Pulse Ox 98.4 F 78 18 149/78 93 L 07/24/17 05:00 07/24/17 05:00 07/24/17 05:00 07/24/17 05:00 07/24/17 05:00 - Medications Medications: Current Medications Acetaminophen (Tylenol 325mg Tab) 650 mg PO Q6 PRN PRN Reason: fever > 100.4 Last Admin: 07/15/17 00:26 Dose: 650 mg Acetaminophen (Tylenol 325mg Tab) 325 mg PO Q4 PRN PRN Reason: Pain, Mild (1-3) Last Admin: 07/22/17 05:36 Dose: 325 mg Amlodipine Besylate (Norvasc) 10 mg PO DAILY [facility] Last Admin: 07/23/17 10:07 Dose: 10 mg Aspirin (Ecotrin) 81 mg PO DAILY [facility] Last Admin: 07/23/17 10:09 Dose: 81 mg Atorvastatin Calcium (Lipitor) 40 mg PO HS [facility] Last Admin: 07/23/17 21:21 Dose: 40 mg Bismuth Subsalicylate (Pepto-Bismol) 524 mg PO Q4 PRN PRN Reason: Diarrhea Last Admin: 07/17/17 08:53 Dose: 524 mg Clopidogrel Bisulfate (Plavix) 75 mg PO DAILY [facility] Last Admin: 07/23/17 10:07 Dose: 75 mg Cyanocobalamin (Vitamin B12 1000 Mcg/Ml Inj) 1,000 mcg SC DAILY [facility] Last Admin: 07/23/17 10:02 Dose: 1,000 mcg Dextrose (Dextrose 50% Inj) 0 ml IV STAT PRN; Protocol PRN Reason: Hypoglycemia Protocol Dextrose (Glutose 15) 0 gm PO ONCE PRN; Protocol PRN Reason: Hypoglycemia Protocol Enalapril Maleate (Vasotec) 5 mg PO BID [facility] Last Admin: 07/23/17 18:06 Dose: 5 mg Enoxaparin Sodium (Lovenox) 40 mg SC DAILY [facility] PRN Reason: Protocol Last Admin: 07/23/17 10:07 Dose: 40 mg Epoetin Deejay (Procrit) 10,000 unit SC TTS [facility] Last Admin: 07/23/17 10:13 Dose: 10,000 unit Ergocalciferol (Drisdol 50,000 Intl Units Cap) 1 cap PO QWK [facility] Last Admin: 07/20/17 08:28 Dose: 1 cap Glucagon (Glucagen Diagnostic Kit) 0 mg IM STAT PRN; Protocol PRN Reason: Hypoglycemia Protocol Vancomycin HCl 1 gm/ Sodium (Chloride) 250 mls @ 250 mls/hr IVPB DAILY [facility] PRN Reason: Protocol Last Admin: 07/23/17 10:10 Dose: 250 mls/hr Iron Sucrose 100 mg/ Sodium (Chloride) 105 mls @ 105 mls/hr IVPB DAILY [facility] Last Admin: 07/23/17 10:11 Dose: 105 mls/hr Piperacillin Sod/Tazobactam (Sod 4.5 gm/ Sodium Chloride) 100 mls @ 100 mls/hr IVPB Q8 [facility] PRN Reason: Protocol Last Admin: 07/24/17 01:30 Dose: 100 mls/hr Fluconazole (Diflucan Iv 100 Mg/50 Ml Ns) 50 mls @ 50 mls/hr IVPB DAILY [facility] PRN Reason: Protocol Last Admin: 07/23/17 10:09 Dose: 50 mls/hr Insulin Human Lispro (Humalog) 0 units SC ACHS [facility] PRN Reason: Protocol Last Admin: 07/24/17 01:16 Dose: Not Given Labetalol HCl (Trandate) 200 mg PO BID [facility] Last Admin: 07/23/17 18:02 Dose: 200 mg Lactobacillus Acidophilus (Bacid Acidophilus) 1 cap PO BID [facility] Last Admin: 07/23/17 18:06 Dose: 1 cap Metformin HCl (Glucophage) 500 mg PO BIDWM [facility] Last Admin: 07/23/17 18:04 Dose: 500 mg Pantoprazole Sodium (Protonix Ec Tab) 40 mg PO DAILY [facility] Last Admin: 07/23/17 10:06 Dose: 40 mg Repaglinide (Prandin) 2 mg PO DIN [facility] Last Admin: 07/23/17 18:03 Dose: 2 mg Repaglinide (Prandin) 1 mg PO BIDWM@0730,1200 [facility] Last Admin: 05/12/18 12:33 Dose: 1 mg Sertraline HCl (Zoloft) 12.5 mg PO DAILY [facility] Last Admin: 07/23/17 10:02 Dose: 12.5 mg Sitagliptin Phosphate (Januvia) 50 mg PO BID [facility] Last Admin: 07/23/17 18:03 Dose: 50 mg - Labs Labs: 07/24/17 06:14 07/24/17 06:14 PT 11.7 Seconds (9.8-13.1) 07/21/17 09:00 INR 1.1 (0.9-1.2) 07/21/17 09:00 APTT 26.2 Seconds (25.6-37.1) 07/21/17 09:00 - Constitutional Appears: No Acute Distress, Chronically Ill - Head Exam Head Exam: ATRAUMATIC, NORMAL INSPECTION, NORMOCEPHALIC - Eye Exam Eye Exam: EOMI, Normal appearance, PERRL Pupil Exam: NORMAL ACCOMODATION, PERRL - ENT Exam ENT Exam: Mucous Membranes Moist, Normal Exam - Neck Exam Neck Exam: Full ROM, Normal Inspection. absent: Lymphadenopathy - Respiratory Exam Respiratory Exam: Clear to Ausculation Bilateral, NORMAL BREATHING PATTERN - Cardiovascular Exam Cardiovascular Exam: REGULAR RHYTHM, +S1, +S2. absent: Murmur - GI/Abdominal Exam GI & Abdominal Exam: Soft, Tenderness, Normal Bowel Sounds. absent: Distended, Guarding, Rigid Additional comments: two wound bag in place. small amount of drainage seropurulent fluids. - Exam Exam: NORMAL INSPECTION - Extremities Exam Extremities Exam: Normal Capillary Refill, Normal Inspection. absent: Full ROM , Joint Swelling, Pedal Edema - Back Exam Back Exam: NORMAL INSPECTION - Neurological Exam Neurological Exam: Alert, Awake, Oriented x3 - Psychiatric Exam Psychiatric exam: Normal Affect, Normal Mood - Skin Skin Exam: Erythema, Warm. absent: Intact, Normal Color Additional comments: purulent drainage. 2 2x3cm incisions. Assessment and Plan - Assessment and Plan (Free Text) Assessment: 72F w/ left abdominal wall abscess s/p I&D POD 3 Plan: ABx per ID F/u intra-op wound cx Incentive spirometer q1h Consistent carb diet Resume DVT ppx Further recs per Dr. Queen
--- NOTE | 2017-07-24 08:51 | PN ---
DATE: 07/24/2017 SUBJECTIVE: The patient is seen and examined. Interim events noted. Consults noted and appreciated. Surgery and Infectious Disease followup and interventions noted and appreciated. The patient remains in Progressive Care Unit on telemetery monitoring. The patient is sleepy and arousable. Feels okay. Denies any abdominal pain, chest pain or shortness of breath. She problem with bowel movements or any problem with eating. PHYSICAL EXAMINATION: GENERAL: The patient is in no acute distress. VITAL SIGNS: Stable. HEART: S1 and S2, normal and regular. LUNGS: Good bilateral air exchange. ABDOMEN: Soft and nontender. Surgical site . No sign of acute abdomen. No guarding. No rigidity. No rebound. Bowel sounds are plus and normal. EXTREMITIES: No calf swelling. No tenderness. No acute ischemia. CENTRAL NERVOUS SYSTEM: Essentially unchanged. DIAGNOSTIC DATA: Available diagnostic data reviewed. Telemetry monitoring does not reveal any significant arrthymia. PLAN: Overall, the patient's general medical condition is stable. Plan as ordered. Sebastián Dobbs MD
[2017-07-24] MEDS: Enoxaparin 40 mg Syringe SC SCH (10:22)
[2017-07-24] MEDS: Pantoprazole 40 mg EC Tab PO SCH (10:23)
[2017-07-24] MEDS: Fluconazole IV 100mg/50 ml NS 50 ML IVPB SCH (10:26)
[2017-07-24] MEDS: Lactobacillus Acidophilus 500 MU Cap PO SCH ×2 (10:30→17:11)
--- NOTE | 2017-07-25 08:05 | CP.PCM.PN ---
Subjective - Date & Time of Evaluation Date of Evaluation: 07/25/17 Time of Evaluation: 08:02 - Subjective Subjective: Surgery Patient seen and examined. No acute events. WOund bag draining purulent fluids. Tolerating diet. Objective - Vital Signs/Intake and Output Vital Signs (last 24 hours): Temp Pulse Resp BP Pulse Ox 97.8 F 80 18 146/72 95 07/25/17 05:19 07/25/17 05:19 07/25/17 05:19 07/25/17 05:19 07/25/17 05:19 Intake and Output: 07/25/17 07/25/17 06:59 18:59 Output Total 20 Balance -20 - Medications Medications: Current Medications Acetaminophen (Tylenol 325mg Tab) 650 mg PO Q6 PRN PRN Reason: fever > 100.4 Last Admin: 07/15/17 00:26 Dose: 650 mg Acetaminophen (Tylenol 325mg Tab) 325 mg PO Q4 PRN PRN Reason: Pain, Mild (1-3) Last Admin: 07/22/17 05:36 Dose: 325 mg Amlodipine Besylate (Norvasc) 10 mg PO DAILY [facility] Last Admin: 07/24/17 10:22 Dose: 10 mg Aspirin (Ecotrin) 81 mg PO DAILY [facility] Last Admin: 07/24/17 10:29 Dose: 81 mg Atorvastatin Calcium (Lipitor) 40 mg PO HS [facility] Last Admin: 07/24/17 22:45 Dose: 40 mg Bismuth Subsalicylate (Pepto-Bismol) 524 mg PO Q4 PRN PRN Reason: Diarrhea Last Admin: 07/17/17 08:53 Dose: 524 mg Clopidogrel Bisulfate (Plavix) 75 mg PO DAILY [facility] Last Admin: 07/24/17 10:23 Dose: 75 mg Cyanocobalamin (Vitamin B12 1000 Mcg/Ml Inj) 1,000 mcg SC DAILY [facility] Last Admin: 07/24/17 10:24 Dose: Not Given Dextrose (Dextrose 50% Inj) 0 ml IV STAT PRN; Protocol PRN Reason: Hypoglycemia Protocol Dextrose (Glutose 15) 0 gm PO ONCE PRN; Protocol PRN Reason: Hypoglycemia Protocol Enalapril Maleate (Vasotec) 5 mg PO BID [facility] Last Admin: 07/24/17 17:15 Dose: 5 mg Enoxaparin Sodium (Lovenox) 40 mg SC DAILY [facility] PRN Reason: Protocol Last Admin: 07/24/17 10:22 Dose: Not Given Epoetin Deejay (Procrit) 10,000 unit SC TTS [facility] Last Admin: 07/23/17 10:13 Dose: 10,000 unit Ergocalciferol (Drisdol 50,000 Intl Units Cap) 1 cap PO QWK [facility] Last Admin: 07/20/17 08:28 Dose: 1 cap Glucagon (Glucagen Diagnostic Kit) 0 mg IM STAT PRN; Protocol PRN Reason: Hypoglycemia Protocol Vancomycin HCl 1 gm/ Sodium (Chloride) 250 mls @ 250 mls/hr IVPB DAILY [facility] PRN Reason: Protocol Last Admin: 07/24/17 10:27 Dose: 250 mls/hr Iron Sucrose 100 mg/ Sodium (Chloride) 105 mls @ 105 mls/hr IVPB DAILY [facility] Last Admin: 07/24/17 14:21 Dose: 105 mls/hr Insulin Human Lispro (Humalog) 0 units SC ACHS [facility] PRN Reason: Protocol Last Admin: 07/24/17 23:38 Dose: Not Given Labetalol HCl (Trandate) 200 mg PO BID [facility] Last Admin: 07/24/17 17:12 Dose: 200 mg Lactobacillus Acidophilus (Bacid Acidophilus) 1 cap PO BID [facility] Last Admin: 07/24/17 17:11 Dose: 1 cap Metformin HCl (Glucophage) 500 mg PO BIDWM [facility] Last Admin: 07/24/17 17:11 Dose: 500 mg Pantoprazole Sodium (Protonix Ec Tab) 40 mg PO DAILY [facility] Last Admin: 07/24/17 10:23 Dose: 40 mg Repaglinide (Prandin) 2 mg PO DIN [facility] Last Admin: 07/24/17 19:48 Dose: Not Given Repaglinide (Prandin) 1 mg PO BIDWM@0730,1200 [facility] Last Admin: 07/24/17 14:21 Dose: Not Given Sertraline HCl (Zoloft) 12.5 mg PO DAILY [facility] Last Admin: 07/24/17 10:24 Dose: 12.5 mg Sitagliptin Phosphate (Januvia) 50 mg PO BID [facility] Last Admin: 07/24/17 17:11 Dose: 50 mg - Labs Labs: 07/24/17 06:14 07/24/17 06:14 PT 11.7 Seconds (9.8-13.1) 07/21/17 09:00 INR 1.1 (0.9-1.2) 07/21/17 09:00 APTT 26.2 Seconds (25.6-37.1) 07/21/17 09:00 - Constitutional Appears: No Acute Distress, Chronically Ill - Head Exam Head Exam: ATRAUMATIC, NORMAL INSPECTION, NORMOCEPHALIC - Eye Exam Eye Exam: EOMI, Normal appearance, PERRL Pupil Exam: NORMAL ACCOMODATION, PERRL - ENT Exam ENT Exam: Mucous Membranes Moist, Normal Exam - Neck Exam Neck Exam: Full ROM, Normal Inspection. absent: Lymphadenopathy - Respiratory Exam Respiratory Exam: Clear to Ausculation Bilateral, NORMAL BREATHING PATTERN - Cardiovascular Exam Cardiovascular Exam: REGULAR RHYTHM, +S1, +S2. absent: Murmur - GI/Abdominal Exam GI & Abdominal Exam: Soft, Normal Bowel Sounds. absent: Distended, Tenderness Additional comments: wound bag in place. Pen lacho in place 20cc purulent fluids. - Rectal Exam Rectal Exam: NORMAL INSPECTION - Extremities Exam Extremities Exam: Full ROM, Normal Capillary Refill, Normal Inspection. absent : Joint Swelling, Pedal Edema - Back Exam Back Exam: NORMAL INSPECTION - Neurological Exam Neurological Exam: Alert, Awake, CN II-XII Intact, Normal Gait, Oriented x3 - Psychiatric Exam Psychiatric exam: Normal Affect, Normal Mood - Skin Skin Exam: Erythema, Warm. absent: Normal Color Assessment and Plan - Assessment and Plan (Free Text) Assessment: 72F w/ left abdominal wall abscess s/p I&D POD 4 Plan: ABx per ID Incentive spirometer q1h Consistent carb diet Resume DVT ppx recommend Visiting nurse for wound drainage. Follow up at Dr. Queen's office to get drake removed in 1-2 week after DC DW Dr. Queen
--- NOTE | 2017-07-25 08:34 | OP ---
PROCEDURE DATE: 07/21/2017 SURGEON: Mckayla Queen MD POP SINGER: Dr. Judge. TYPE OF ANESTHESIA: General. ANESTHESIA ADMINISTERED BY: Lars Porras MD ESTIMATED BLOOD LOSS: 5 mL. PREOPERATIVE DIAGNOSIS: Abdominal wall abscess. POSTOPERATIVE DIAGNOSIS: Abdominal wall abscess. PROCEDURE: Incision and drainage of the abdominal wall abscess. DESCRIPTION OF OPERATION:: With the patient in the supine position under adequate general anesthesia, the abdomen was prepped and draped in the usual sterile manner. The patient was noted to have a small opening in the left upper quadrant where an initial incision and drainage had been performed with an area of swelling and fluctuance extending inferolaterally from this point. A clamp was placed into the opening and noted to enter into a larger cavity extending down towards the left flank and a transverse 3 cm incision was made at the lower aspect of this of this area and taken down into the cavity. A quantity of purulent material was drained and the more medial incision was also enlarged slightly allowing multiple passes of to cleanse small amount of necrotic material from the cavity. Oral loculations were broken and there did not appear to be any extension of necrosis beyond the confines of the cavity. The wound was irrigated and [place] drains were placed via each of the incisions and sutured to the edges of the wound with 3-0 nylon sutures. Wound drainage bags were placed over each of the [place] drains and the cultures were taken from the wounds as well. The patient tolerated the procedure and transferred to recovery room in stable condition. Estimated blood loss for the procedure was 5 mL. Mckayla Queen MD
[2017-07-25] MEDS ORDERED: Fluconazole IV 100mg/50 ml NS 50 ML IVPB SCH (09:00)
[2017-07-25] MEDS ORDERED: Piperacillin/Tazobact 4.5 GM in Sodium Chloride 0.9% 100 ML IVPB SCH (09:00)
--- NOTE | 2017-07-25 09:03 | PN ---
DATE: 07/25/2017 SUBJECTIVE: The patient is seen and examined. Interim events noted. Surgical interventions noted and appreciated. Case discussed with surgery at bedside. The patient feels okay. swelling. No chest pain. No shortness of breath. No abdominal pain. No nausea or vomiting. PHYSICAL EXAMINATION: GENERAL: The patient is in no acute distress. VITAL SIGNS: Stable. HEART: S1 and S2, normal and regular. LUNGS: Good bilateral air exchange. ABDOMEN: The patient has two drains draining serosanguineous mixed with small amount of blood kind of discharge moderate amount. No sign of acute abdomen. No guarding. No rigidity. No rebound. Bowel sounds are plus and normal. EXTREMITIES: No calf swelling. No tenderness. No acute ischemia. CENTRAL NERVOUS SYSTEM: Essentially unchanged. DIAGNOSTIC DATA: Available diagnostic data reviewed. Telemetry monitoring does not reveal significant arrhythmias. PLAN: Overall, the patient's general medical condition is stable. Plan as ordered. Sebastián Dobbs MD
[2017-07-25] MEDS: Lactobacillus Acidophilus 500 MU Cap PO SCH (09:29)
[2017-07-25] MEDS: Ergocalciferol 50,000 Intl Units Cap PO SCH (09:30)
[2017-07-25] MEDS: Pantoprazole 40 mg EC Tab PO SCH (09:30)
[2017-07-25] MEDS: Enoxaparin 40 mg Syringe SC SCH (09:33)
[2017-07-25] MEDS: Insulin Lispro (humaLOG) 100 Units/ml Inj SC SCH ×3 (09:37→16:27)
--- NOTE | 2017-07-25 12:15 | CP.PCM.PN ---
Subjective - Date & Time of Evaluation Date of Evaluation: 07/25/17 Time of Evaluation: 09:00 - Subjective Subjective: seen on rounds to d/c to [facility] to cont uiv rx and wound care for panniculitis Objective - Vital Signs/Intake and Output Vital Signs (last 24 hours): Temp Pulse Resp BP Pulse Ox 97.8 F 84 18 148/74 95 07/25/17 08:25 07/25/17 09:33 07/25/17 08:25 07/25/17 09:33 07/25/17 08:25 Intake and Output: 07/25/17 07/25/17 06:59 18:59 Output Total 20 Balance -20 - Medications Medications: Current Medications Acetaminophen (Tylenol 325mg Tab) 650 mg PO Q6 PRN PRN Reason: fever > 100.4 Last Admin: 07/15/17 00:26 Dose: 650 mg Acetaminophen (Tylenol 325mg Tab) 325 mg PO Q4 PRN PRN Reason: Pain, Mild (1-3) Last Admin: 07/22/17 05:36 Dose: 325 mg Amlodipine Besylate (Norvasc) 10 mg PO DAILY [facility] Last Admin: 07/25/17 09:33 Dose: 10 mg Aspirin (Ecotrin) 81 mg PO DAILY [facility] Last Admin: 07/25/17 09:30 Dose: 81 mg Atorvastatin Calcium (Lipitor) 40 mg PO HS [facility] Last Admin: 07/24/17 22:45 Dose: 40 mg Bismuth Subsalicylate (Pepto-Bismol) 524 mg PO Q4 PRN PRN Reason: Diarrhea Last Admin: 07/17/17 08:53 Dose: 524 mg Clopidogrel Bisulfate (Plavix) 75 mg PO DAILY [facility] Last Admin: 07/25/17 09:30 Dose: 75 mg Cyanocobalamin (Vitamin B12 1000 Mcg/Ml Inj) 1,000 mcg SC DAILY [facility] Last Admin: 07/25/17 09:32 Dose: 1,000 mcg Dextrose (Dextrose 50% Inj) 0 ml IV STAT PRN; Protocol PRN Reason: Hypoglycemia Protocol Dextrose (Glutose 15) 0 gm PO ONCE PRN; Protocol PRN Reason: Hypoglycemia Protocol Enalapril Maleate (Vasotec) 5 mg PO BID [facility] Last Admin: 07/25/17 09:32 Dose: 5 mg Enoxaparin Sodium (Lovenox) 40 mg SC DAILY [facility] PRN Reason: Protocol Last Admin: 07/25/17 09:33 Dose: 40 mg Epoetin Deejay (Procrit) 10,000 unit SC TTS [facility] Last Admin: 07/23/17 10:13 Dose: 10,000 unit Ergocalciferol (Drisdol 50,000 Intl Units Cap) 1 cap PO QWK [facility] Last Admin: 07/25/17 09:30 Dose: 1 cap Glucagon (Glucagen Diagnostic Kit) 0 mg IM STAT PRN; Protocol PRN Reason: Hypoglycemia Protocol Fluconazole (Diflucan Iv 100 Mg/50 Ml Ns) 50 mls @ 50 mls/hr IVPB DAILY [facility] PRN Reason: Protocol Last Admin: 07/25/17 11:32 Dose: 50 mls/hr Vancomycin HCl 1 gm/ Sodium (Chloride) 250 mls @ 166.667 mls/hr IVPB DAILY [facility] PRN Reason: Protocol Last Admin: 07/25/17 11:32 Dose: 166.667 mls/hr Piperacillin Sod/Tazobactam (Sod 4.5 gm/ Sodium Chloride) 100 mls @ 100 mls/hr IVPB Q8 [facility] PRN Reason: Protocol Last Admin: 07/25/17 09:34 Dose: 100 mls/hr Insulin Human Lispro (Humalog) 0 units SC ACHS [facility] PRN Reason: Protocol Last Admin: 07/25/17 09:37 Dose: 2 units Labetalol HCl (Trandate) 200 mg PO BID [facility] Last Admin: 07/25/17 09:31 Dose: 200 mg Lactobacillus Acidophilus (Bacid Acidophilus) 1 cap PO BID [facility] Last Admin: 07/25/17 09:29 Dose: 1 cap Metformin HCl (Glucophage) 500 mg PO BIDWM [facility] Last Admin: 07/25/17 09:48 Dose: 500 mg Pantoprazole Sodium (Protonix Ec Tab) 40 mg PO DAILY [facility] Last Admin: 07/25/17 09:30 Dose: 40 mg Repaglinide (Prandin) 2 mg PO DIN [facility] Last Admin: 07/24/17 19:48 Dose: Not Given Repaglinide (Prandin) 1 mg PO BIDWM@0730,1200 [facility] Last Admin: 07/25/17 09:32 Dose: 1 mg Sertraline HCl (Zoloft) 12.5 mg PO DAILY [facility] Last Admin: 07/25/17 09:34 Dose: 12.5 mg Sitagliptin Phosphate (Januvia) 50 mg PO BID [facility] Last Admin: 07/25/17 09:31 Dose: 50 mg - Labs Labs: 18 06:14 07/24/17 06:14 PT 11.7 Seconds (9.8-13.1) 07/21/17 09:00 INR 1.1 (0.9-1.2) 07/21/17 09:00 APTT 26.2 Seconds (25.6-37.1) 07/21/17 09:00 - Constitutional Appears: Non-toxic, Chronically Ill - Head Exam Head Exam: NORMOCEPHALIC - Eye Exam Eye Exam: PERRL - ENT Exam ENT Exam: Mucous Membranes Dry - Neck Exam Neck Exam: absent: Lymphadenopathy - Respiratory Exam Respiratory Exam: Decreased Breath Sounds - Cardiovascular Exam Cardiovascular Exam: REGULAR RHYTHM - GI/Abdominal Exam GI & Abdominal Exam: Distended Assessment and Plan (1) Abdominal wall cellulitis Status: Acute (2) Complication of feeding tube Status: Acute
[2017-07-25 12:32] VITALS: RESP 20
--- NOTE | 2017-07-25 14:43 | CP.PCM.PN ---
Subjective - Date & Time of Evaluation Date of Evaluation: 07/25/17 Time of Evaluation: 14:42 - Subjective Subjective: Patient feeling well. In no disconmfort. Objective - Vital Signs/Intake and Output Vital Signs (last 24 hours): Temp Pulse Resp BP Pulse Ox 98.0 F 77 20 102/64 93 L 07/25/17 12:32 07/25/17 12:32 07/25/17 12:32 07/25/17 12:32 07/25/17 12:32 Intake and Output: 07/25/17 07/25/17 06:59 18:59 Output Total 20 Balance -20 - Medications Medications: Current Medications Acetaminophen (Tylenol 325mg Tab) 650 mg PO Q6 PRN PRN Reason: fever > 100.4 Last Admin: 07/15/17 00:26 Dose: 650 mg Acetaminophen (Tylenol 325mg Tab) 325 mg PO Q4 PRN PRN Reason: Pain, Mild (1-3) Last Admin: 07/22/17 05:36 Dose: 325 mg Amlodipine Besylate (Norvasc) 10 mg PO DAILY [facility] Last Admin: 07/25/17 09:33 Dose: 10 mg Aspirin (Ecotrin) 81 mg PO DAILY [facility] Last Admin: 07/25/17 09:30 Dose: 81 mg Atorvastatin Calcium (Lipitor) 40 mg PO HS [facility] Last Admin: 07/24/17 22:45 Dose: 40 mg Bismuth Subsalicylate (Pepto-Bismol) 524 mg PO Q4 PRN PRN Reason: Diarrhea Last Admin: 07/17/17 08:53 Dose: 524 mg Clopidogrel Bisulfate (Plavix) 75 mg PO DAILY [facility] Last Admin: 07/25/17 09:30 Dose: 75 mg Cyanocobalamin (Vitamin B12 1000 Mcg/Ml Inj) 1,000 mcg SC DAILY [facility] Last Admin: 07/25/17 09:32 Dose: 1,000 mcg Dextrose (Dextrose 50% Inj) 0 ml IV STAT PRN; Protocol PRN Reason: Hypoglycemia Protocol Dextrose (Glutose 15) 0 gm PO ONCE PRN; Protocol PRN Reason: Hypoglycemia Protocol Enalapril Maleate (Vasotec) 5 mg PO BID [facility] Last Admin: 07/25/17 09:32 Dose: 5 mg Enoxaparin Sodium (Lovenox) 40 mg SC DAILY [facility] PRN Reason: Protocol Last Admin: 07/25/17 09:33 Dose: 40 mg Epoetin Deejay (Procrit) 10,000 unit SC TTS [facility] Last Admin: 07/23/17 10:13 Dose: 10,000 unit Ergocalciferol (Drisdol 50,000 Intl Units Cap) 1 cap PO QWK [facility] Last Admin: 07/25/17 09:30 Dose: 1 cap Glucagon (Glucagen Diagnostic Kit) 0 mg IM STAT PRN; Protocol PRN Reason: Hypoglycemia Protocol Fluconazole (Diflucan Iv 100 Mg/50 Ml Ns) 50 mls @ 50 mls/hr IVPB DAILY [facility] PRN Reason: Protocol Last Admin: 07/25/17 11:32 Dose: 50 mls/hr Vancomycin HCl 1 gm/ Sodium (Chloride) 250 mls @ 166.667 mls/hr IVPB DAILY [facility] PRN Reason: Protocol Last Admin: 07/25/17 11:32 Dose: 166.667 mls/hr Piperacillin Sod/Tazobactam (Sod 4.5 gm/ Sodium Chloride) 100 mls @ 100 mls/hr IVPB Q8 [facility] PRN Reason: Protocol Last Admin: 07/25/17 09:34 Dose: 100 mls/hr Insulin Human Lispro (Humalog) 0 units SC ACHS [facility] PRN Reason: Protocol Last Admin: 07/25/17 13:45 Dose: 2 units Labetalol HCl (Trandate) 200 mg PO BID [facility] Last Admin: 07/25/17 09:31 Dose: 200 mg Lactobacillus Acidophilus (Bacid Acidophilus) 1 cap PO BID [facility] Last Admin: 07/25/17 09:29 Dose: 1 cap Metformin HCl (Glucophage) 500 mg PO BIDWM [facility] Last Admin: 07/25/17 09:48 Dose: 500 mg Pantoprazole Sodium (Protonix Ec Tab) 40 mg PO DAILY [facility] Last Admin: 07/25/17 09:30 Dose: 40 mg Repaglinide (Prandin) 2 mg PO DIN [facility] Last Admin: 07/24/17 19:48 Dose: Not Given Repaglinide (Prandin) 1 mg PO BIDWM@0730,1200 [facility] Last Admin: 07/25/17 13:46 Dose: 1 mg Sertraline HCl (Zoloft) 12.5 mg PO DAILY [facility] Last Admin: 07/25/17 09:34 Dose: 12.5 mg Sitagliptin Phosphate (Januvia) 50 mg PO BID [facility] Last Admin: 07/25/17 09:31 Dose: 50 mg - Labs Labs: 07/24/17 06:14 07/24/17 06:14 PT 11.7 Seconds (9.8-13.1) 07/21/17 09:00 INR 1.1 (0.9-1.2) 07/21/17 09:00 APTT 26.2 Seconds (25.6-37.1) 07/21/17 09:00 - Head Exam Head Exam: ATRAUMATIC - ENT Exam ENT Exam: Normal Exam - Neck Exam Neck Exam: Full ROM - Respiratory Exam Respiratory Exam: Clear to Ausculation Bilateral - Cardiovascular Exam Cardiovascular Exam: REGULAR RHYTHM, +S1, +S2 - GI/Abdominal Exam GI & Abdominal Exam: Soft, Normal Bowel Sounds. absent: Tenderness Assessment and Plan (1) Cellulitis Assessment & Plan: Doing much better after I and D of abdominal wall abscess. Management as per ID and surgery. Status: Acute
[2017-07-25 16:14] VITALS: BP 140/64; PULSE 72; TEMP 97.8; O2SAT 95
== END 2017-07-25 14:20 | DRG 854 ==
LOC: H.ER 09:48 → H.ERHOLD 11:35 → H.TEL 14:13
PROVIDERS: ADMIT Internal Medicine; ATTEND Internal Medicine
PROC: 0DP6XUZ Removal of Feeding Device from Stomach, External Approach (ICD-10-PCS; principal; 2017-07-12)
PROC: 02HV33Z Insertion of Infusion Device into Superior Vena Cava, Percutaneous Approach (ICD-10-PCS; 2017-07-18)
PROC: 30233N1 Transfusion of Nonautologous Red Blood Cells into Peripheral Vein, Percutaneous Approach (ICD-10-PCS; 2017-07-20)
PROC: 0W9F0ZZ Drainage of Abdominal Wall, Open Approach (ICD-10-PCS; 2017-07-21)
DX: A41.9 Sepsis, unspecified organism (principal); K94.23 Gastrostomy malfunction; K94.22 Gastrostomy infection; L03.311 Cellulitis of abdominal wall; N39.0 Urinary tract infection, site not specified; G30.9 Alzheimer's disease, unspecified; I10 Essential (primary) hypertension; E78.00 Pure hypercholesterolemia, unspecified; Z86.73 Personal history of transient ischemic attack (TIA), and cerebral infarction without residual deficits; E11.621 Type 2 diabetes mellitus with foot ulcer; E78.5 Hyperlipidemia, unspecified; K21.9 Gastro-esophageal reflux disease without esophagitis; G31.84 Mild cognitive impairment of uncertain or unknown etiology; E11.65 Type 2 diabetes mellitus with hyperglycemia; D63.8 Anemia in other chronic diseases classified elsewhere; D50.9 Iron deficiency anemia, unspecified; M79.3 Panniculitis, unspecified

== ENCOUNTER 2017-10-20 20:19 | Observation (INO) | payer OTHER ==
[2017-10-20 20:19] VITALS: BMI 31.6
[2017-10-20 22:05] LABS: BASO % 0.5 % (0.0-2.0); EOS # 0.1 K/uL (0.0-0.7); EOS % 2.7 % (0.0-4.0); HEMOGLOBIN 8.4 g/dL (12.0-16.0); LYMPH % 19.8 % (20.0-40.0); MEAN CELL VOLUME 90.5 fl (81.0-99.0); MEAN CORPUSCULAR HEMOGLOBIN 29.5 pg (27.0-31.0); MEAN CORPUSCULAR HGB CONC 32.6 g/dL (33.0-37.0); MEAN PLATELET VOLUME 8.7 fl (7.2-11.7); MONO # 0.4 K/uL (0.0-0.8); MONO % 8.3 % (0.0-10.0); NEUT # 3.3 K/uL (1.8-7.0); NEUT % 68.7 % (50.0-75.0); RBC 2.84 Mil/uL (3.80-5.20); RED CELL DISTRIBUTION WIDTH 17.7 % (11.5-14.5); WHITE BLOOD COUNT 4.9 K/uL (4.8-10.8)
[2017-10-20 22:22] LABS: ALB/GLOB RATIO 1.2 (1.0-2.1); CALCIUM 9.1 mg/dL (8.4-10.2)
[2017-10-20 22:31] LABS: TROPONIN I 0.035 ng/mL (0.00-0.120)
--- NOTE | 2017-10-20 22:32 | ED PDOC ---
HPI: SOB/CHF/COPD Time Seen by Provider: 10/20/17 20:47 Chief Complaint (Nursing): Shortness Of Breath Chief Complaint (Provider): shortness of breath History Per: Patient, Family () Onset/Duration Of Symptoms: Days Current Symptoms Are (Timing): Still Present Exacerbating Factor(s): Exertion Associated Symptoms: denies: Chest Pain Additional Complaint(s): 72yo female, history of hypertnesion, diabetes, CHF, and CVA, comes to ER with complaints of shortness of breath x 10 days. Patient's states she was recently discharged from a rehab facility after she had a g-tube infection. He noted for the past 10 days, patient has had persistent shortness of breath with minimal exertion. Patient currently denies any fever, chills or chest pain. Per , patient has had fluid retention in past and had similar presentation. PMD: Dr. Babb Past Medical History Reviewed: Historical Data, Nursing Documentation, Vital Signs Vital Signs: Last Vital Signs Temp 98.0 F 10/21/17 05:10 Pulse 79 10/21/17 05:10 Resp 18 10/21/17 05:10 BP 164/79 H 10/21/17 05:10 Pulse Ox 95 10/21/17 05:10 - Medical History PMH: Alzheimer's Disease, CVA, Diabetes (type 2, NIDDM), HTN, Hypercholesterolemia Denies: HIV, Chronic Kidney Disease - Surgical History Surgical History: No Surg Hx - Family History Family History: States: Unknown Family Hx - Immunization History Hx Tetanus Toxoid Vaccination: No Hx Influenza Vaccination: No Hx Pneumococcal Vaccination: No - Home Medications Home Medications: Ambulatory Orders Medication Instructions Recorded Ergocalciferol (Vitamin D2) 50,000 unit PO QWK 04/13/17 [Vitamin D2] Atorvastatin [Lipitor] 40 mg PO HS tab 04/15/17 Clopidogrel [Plavix] 75 mg PO DAILY tab 04/15/17 SITagliptin [Januvia] 50 mg PO BID tab 04/15/17 Acetaminophen [Tylenol 325mg tab] 650 mg PO Q6 PRN tab 05/09/17 Aspirin [Ecotrin] 81 mg PO DAILY tabec 05/09/17 Dimethicone [Proshield Plus Skin 1 applic TOP Q8 PRN gel 05/09/17 Protectant] Donepezil [Aricept] 5 mg PO HS tab 05/09/17 Pantoprazole [Protonix EC Tab] 40 mg PO DAILY ect 05/09/17 amLODIPine [Norvasc] 5 mg PO DAILY tab 05/09/17 Alogliptin Benzoate [Nesina] 12.5 mg PO BID 07/13/17 Acetaminophen [Tylenol 325mg tab] 325 mg PO Q4 PRN tab 07/25/17 Cyanocobalamin [Vitamin B12 1000 1,000 mcg SC DAILY vial 07/25/17 mcg/ml Inj] Enalapril Maleate [Vasotec] 5 mg PO BID tab 07/25/17 Enoxaparin [Lovenox] 40 mg SC DAILY syr 07/25/17 Fluconazole IV 100mg/50 ml NS 100 mg IV DAILY #7 ml 07/25/17 [Diflucan IV 100 mg/50 ml NS] Labetalol [Trandate] 200 mg PO BID tab 07/25/17 Lactobacillus Acidophilus [Bacid 1 cap PO BID cap 07/25/17 Acidophilus] Piperacill/Tazo 4.5gm in Dex 4.5 gm IV Q8 #21 bag 07/25/17 [Zosyn 4.5 Gm IV Premix] Repaglinide [Prandin] 1 mg PO BIDWM@0730,1200 tab 07/25/17 Repaglinide [Prandin] 2 mg PO DIN tab 07/25/17 Sertraline [Zoloft] 12.5 mg PO DAILY tab 07/25/17 Vancomycin 1gm in NS 250ml 1 gm IVPB DAILY #7 bag 07/25/17 [Vancomycin 1gm] metFORMIN [glucOPHAGE] 500 mg PO BIDWM tab 07/25/17 - Allergies Allergies/Adverse Reactions: Allergies Allergy/AdvReac Type Severity Reaction Status Date / Time oxycodone Allergy RASH Verified 10/20/17 20:32 Review of Systems ROS Statement: Except As Marked, All Systems Reviewed And Found Negative Constitutional: Negative for: Fever, Chills Cardiovascular: Negative for: Chest Pain Respiratory: Positive for: Shortness of Breath, SOB with Exertion Physical Exam - Reviewed Nursing Documentation Reviewed: Yes Vital Signs Reviewed: Yes - Physical Exam Appears: Positive for: Non-toxic, No Acute Distress Head Exam: Positive for: ATRAUMATIC, NORMAL INSPECTION, NORMOCEPHALIC Skin: Positive for: Normal Color Eye Exam: Positive for: Normal appearance Neck: Positive for: Painless ROM, Supple Cardiovascular/Chest: Positive for: Regular Rate, Rhythm, JVD (1+) Respiratory: Positive for: Crackles (trace crackles bilateral bases) Gastrointestinal/Abdominal: Positive for: Soft. Negative for: Tenderness Back: Positive for: Normal Inspection Extremity: Positive for: Pedal Edema (+ 1 edema bilateral lower extremity) Neurologic/Psych: Positive for: Alert, Oriented. Negative for: Motor/Sensory Deficits - Laboratory Results Result Diagrams: 10/20/17 21:56 10/20/17 21:56 - ECG O2 Sat by Pulse Oximetry: 100 (RA) Pulse Ox Interpretation: Normal - Radiology X-Ray: Interpreted by Me, Viewed By Me X-Ray Interpretation: Cardiomegaly, Other (bilateral pulmonary vascular congestion) Medical Decision Making Medical Decision Making: Impression: 72yo female with shortness of breath, known history of CHF Plan: -- Labs -- EKG -- Chest x-ray -- Lasix 20m IV 2232 Labs reviewed, and significant for elevated BNP. Patient admitted under Dr. Aly for observation due to CHF. 223 Patient given 1 application of topical Nitro Scribe Attestation: Documented by Lizet Sparrow, acting as a scribe for Drew Martinez MD. Provider Scribe Attestation: All medical record entries made by the Scribe were at my direction and personally dictated by me. I have reviewed the chart and agree that the record accurately reflects my personal performance of the history, physical exam, medical decision making, and the department course for this patient. I have also personally directed, reviewed, and agree with the discharge instructions and disposition. Disposition - Clinical Impression Clinical Impression: CHF (congestive heart failure) - Patient ED Disposition Is Patient to be Admitted: Yes Discussed With DrBrooks: Cesar Aly Counseled Patient/Family Regarding: Studies Performed, Diagnosis - Disposition Disposition Time: 22:32 Condition: STABLE - Pt Status Changed To: Hospital Disposition Of: Observation
[2017-10-20] MEDS ORDERED: Nitroglycerin 2% Ointment Foilpak UD TOP STA (22:34)
[2017-10-20 22:41] LABS: PROTHROMBIN TIME 11.3 Seconds (9.8-13.1)
[2017-10-20 22:44] LABS: PARTIAL THROMBOPLASTIN TIME 29.3 Seconds (25.6-37.1)
--- NOTE | 2017-10-20 23:21 | CP.PCM.HP ---
History of Present Illness - History of Present Illness History of Present Illness: PMD: Dr. Babb Chief Complaint: Shortness of Breath The Patient was seen and examined in the ED with family member present HPI: The hx was obtained from the Family member and after review of the medical records. She is a 72 years old female with hx of DM II, HTN and CVA who comes with worsening SOB on exertion . This has been occurring for 2.5 weeks and at less than 15 feet distant to the bathroom. No chest pain, palpitation, nausea, vomits nor vomiting. She has a chronic diarrhea of more than 2-3 months. PMH: Alzheimer's Disease, CVA, Diabetes (type 2, NIDDM), HTN, HLD; Back pain PSH: Denies SH: Never Smoked; No alcohol use; No illegal drug use;Live with family FH: States: Unknown Family Hx Allergies: NKDA Medication: Reviewed Present on Admission - Present on Admission Any Indicators Present on Admission: Yes History of DVT/PE: No History of Uncontrolled Diabetes: Yes Urinary Catheter: No Decubitus Ulcer Present: No Review of Systems - Constitutional Constitutional: absent: Anorexia, Chills, Fever, Headache, Lethargy - EENT Eyes: Requires Corrective Lenses. absent: Blurred Vision, Diplopia, Floaters Ears: absent: Decreased Hearing, Tinnitus Nose/Mouth/Throat: absent: Epistaxis, Nasal Discharge - Cardiovascular Cardiovascular: Leg Edema, Orthopnea, Paroxysmal Nocturnal Dyspnea. absent: Chest Pain - Respiratory Respiratory: Dyspnea. absent: Cough, Wheezing, Stridor - Gastrointestinal Gastrointestinal: Diarrhea. absent: Abdominal Pain, Constipation, Nausea, Vomiting - Genitourinary Genitourinary: absent: Dysuria, Flank Pain, Urinary Frequency - Musculoskeletal Additional comments: Pain to the Right ankle - Integumentary Integumentary: Swelling, Unusual Bruising. absent: Skin Pain, Skin Ulcer, Sores , Striae - Neurological Neurological: absent: Confusion, Focal Weakness, Loss of Vision, Weakness - Psychiatric Psychiatric: absent: Anxiety, Depression, Panic Attacks - Endocrine Endocrine: absent: Fatigue, Palpitations, Polydipsia, Polyphagia, Polyuria - Hematologic/Lymphatic Hematologic: absent: Easy Bleeding, Easy Bruising Past Patient History - Past Medical History & Family History Past Medical History?: Yes - Past Social History Smoking Status: Never Smoked Chewing Tobacco Use: No Cigar Use: No Alcohol: None Drugs: Denies Home Situation {Lives}: With Family - CARDIAC Hx Hypercholesterolemia: Yes Hx Hypertension: Yes - PULMONARY Hx Respiratory Disorders: No - NEUROLOGICAL Hx Alzheimer's Disease: Yes - HEENT Hx HEENT Problems: No - RENAL Hx Chronic Kidney Disease: No - ENDOCRINE/METABOLIC Hx Endocrine Disorders: Yes Hx Diabetes Mellitus Type 2: Yes - HEMATOLOGICAL/ONCOLOGICAL Hx Human Immunodeficiency Virus (HIV): No - INTEGUMENTARY Hx Dermatological Problems: Yes Other/Comment: ulcers noted on bilateral great toes - MUSCULOSKELETAL/RHEUMATOLOGICAL Hx Musculoskeletal Disorders: No Hx Falls: No Other/Comment: let foot ulcer - GASTROINTESTINAL Hx Gastrointestinal Disorders: Yes Hx Gastroesophageal Reflux: Yes Hx Hemorrhoids: Yes - GENITOURINARY/GYNECOLOGICAL Hx Genitourinary Disorders: No - PSYCHIATRIC Hx Psychophysiologic Disorder: No Hx Substance Use: No - SURGICAL HISTORY Hx Surgeries: No Other/Comment: abdominal PEG tube - ANESTHESIA Hx Anesthesia: Yes Hx Anesthesia Reactions: No Hx Malignant Hyperthermia: No Meds Allergies/Adverse Reactions: Allergies Allergy/AdvReac Type Severity Reaction Status Date / Time oxycodone Allergy RASH Verified 10/20/17 20:32 Physical Exam - Constitutional Appears: No Acute Distress - Head Exam Head Exam: ATRAUMATIC, NORMAL INSPECTION, NORMOCEPHALIC - Eye Exam Eye Exam: EOMI, Normal appearance Pupil Exam: NORMAL ACCOMODATION, PERRL - ENT Exam ENT Exam: Mucous Membranes Moist, Normal Exam - Neck Exam Neck exam: Positive for: Full Rom, Normal Inspection. Negative for: Lymphadenopathy, Tenderness - Respiratory Exam Respiratory Exam: Rales. absent: Rhonchi, Wheezes - Cardiovascular Exam Cardiovascular Exam: REGULAR RHYTHM, +S1, +S2 - GI/Abdominal Exam GI & Abdominal Exam: Normal Bowel Sounds, Soft. absent: Mass, Tenderness - Rectal Exam Rectal Exam: Deferred - Extremities Exam Additional comments: 2+ pitting edema at both legs - Back Exam Back exam: NORMAL INSPECTION. absent: CVA tenderness (L), CVA tenderness (R) - Neurological Exam Neurological exam: Alert, CN II-XII Intact Additional comments: Awake, alert, poor memory, no facial droop, motor strength 5/5 at all 4 extremities - Psychiatric Exam Psychiatric exam: Normal Affect, Normal Mood - Skin Skin Exam: Dry, Intact, Normal Color, Warm Results - Vital Signs Recent Vital Signs: Last Vital Signs Temp 98.2 F 10/20/17 20:26 Pulse 86 10/20/17 20:26 Resp 23 10/20/17 20:30 BP 173/78 H 10/20/17 21:48 Pulse Ox 100 10/20/17 22:38 - Labs Result Diagrams: 10/20/17 21:56 10/20/17 21:56 Labs: Laboratory Results - last 24 hr 10/20/17 10/20/17 10/20/17 21:41 21:56 21:56 WBC 4.9 RBC 2.84 L Hgb 8.4 L Hct 25.7 L MCV 90.5 MCH 29.5 MCHC 32.6 L RDW 17.7 H Plt Count 217 D MPV 8.7 Neut % (Auto) 68.7 Lymph % (Auto) 19.8 L [place] % (Auto) 8.3 Eos % (Auto) 2.7 Baso % (Auto) 0.5 Neut # (Auto) 3.3 Lymph # (Auto) 1.0 [place] # (Auto) 0.4 Eos # (Auto) 0.1 Baso # (Auto) 0.0 PT INR APTT Sodium 142 Potassium 4.6 Chloride 107 Carbon Dioxide 24 Anion Gap 16 BUN 35 H Creatinine 1.2 Est GFR ( Amer) 54 Est GFR (Non-Af Amer) 44 POC Glucose (mg/dL) 152 H Random Glucose 151 H Calcium 9.1 Total Bilirubin 0.4 AST 17 ALT 23 Alkaline Phosphatase 68 Troponin I 0.0350 NT-Pro-B Natriuret Pep 2200 H Total Protein 7.4 Albumin 4.0 Globulin 3.4 Albumin/Globulin Ratio 1.2 10/20/17 21:56 WBC RBC Hgb Hct MCV MCH MCHC RDW Plt Count MPV Neut % (Auto) Lymph % (Auto) [place] % (Auto) Eos % (Auto) Baso % (Auto) Neut # (Auto) Lymph # (Auto) [place] # (Auto) Eos # (Auto) Baso # (Auto) PT 11.3 INR 1.0 APTT 29.3 Sodium Potassium Chloride Carbon Dioxide Anion Gap BUN Creatinine Est GFR ( Amer) Est GFR (Non-Af Amer) POC Glucose (mg/dL) Random Glucose Calcium Total Bilirubin AST ALT Alkaline Phosphatase Troponin I NT-Pro-B Natriuret Pep Total Protein Albumin Globulin Albumin/Globulin Ratio - Impressions Impression: NSR 82/min - Imaging and Cardiology Chest x-ray Status: Image reviewed by me Additional comment: Poor inspiration, Cardiomegaly Bilateral bibasal infiltrate Assessment & Plan - Assessment and Plan (Free Text) Assessment: #. Acute CHF #. HTN Uncontrolled #. DM with Hyperglycemia #. Anemia #. Chronic CVA #. Azotemia #. Dementia Plan: 72 years old female with hx of DM II, HTN and CVA who comes with worsening SOB on exertion . This has been occurring for 2.5 weeks and at less than 15 feet distant to the bathroom. No chest pain, palpitation, nausea, vomits nor vomiting. She has a chronic diarrhea of more than 2-3 months. #. Acute CHF - Consult Cardiology Dr King - ECHO for EF Chamber Size and wall motion - lasix/ - Will change Labetalol to Coreg - No SLAVA inhibitor because of the Azotemia #. HTN Uncontrolled - Norvasc/ Coreg #. DM with Hyperglycemia - Metformin - Lispro Insulin sliding scale according to accucheck - HbA1c #. Anemia unspecified - Iron panel - Vitamin B12/Lactate #. Chronic CVA - ASA/ Lipitor/ Plavix #. Azotemia - Follow renal labs #. DVT prophylaxis with Lovenox #. Code Status: Full - Date & Time Date: 10/20/17 Time: 23:21
[2017-10-20] MEDS ORDERED: Nitroglycerin 2% Ointment Foilpak UD TOP ONE (23:41)
[2017-10-21] MEDS ORDERED: Ergocalciferol 50,000 Intl Units Cap PO SCH (00:30)
--- NOTE | 2017-10-21 06:09 | CARD ---
APPROVED REPORT Date of service: 10/20/2017 <Conclusion> Normal sinus rhythm Normal ECG
[2017-10-21 06:49] LABS: CALCIUM 8.8 mg/dL (8.4-10.2)
[2017-10-21 06:55] LABS: IRON 36 ug/dL (37-170)
--- NOTE | 2017-10-21 07:03 | CP.PCM.CON ---
History of Present Illness - History of Present Illness History of Present Illness: 72 years old female with hx of DM II, HTN and CVA who comes with worsening SOB on exertion . This has been occurring for 2-3 weeks No chest pain, palpitation, nausea, vomits nor vomiting. She has a chronic diarrhea of more than 2-3 months. EKG: normal 03/2017 Echo: good EF Normal LV to be repeated today BNP: 2200 Troponin: Neg PMH: Alzheimer's Disease, CVA, NIDDM HTN, HLD; Back pain Past Patient History - Past Medical History & Family History Past Medical History?: Yes - Past Social History Smoking Status: Never Smoked Chewing Tobacco Use: No Cigar Use: No Alcohol: None Drugs: Denies Home Situation {Lives}: With Family - CARDIAC Hx Hypercholesterolemia: Yes Hx Hypertension: Yes - PULMONARY Hx Respiratory Disorders: No - NEUROLOGICAL Hx Alzheimer's Disease: Yes - HEENT Hx HEENT Problems: No - RENAL Hx Chronic Kidney Disease: No - ENDOCRINE/METABOLIC Hx Endocrine Disorders: Yes Hx Diabetes Mellitus Type 2: Yes - HEMATOLOGICAL/ONCOLOGICAL Hx Human Immunodeficiency Virus (HIV): No - INTEGUMENTARY Hx Dermatological Problems: Yes Other/Comment: ulcers noted on bilateral great toes - MUSCULOSKELETAL/RHEUMATOLOGICAL Hx Musculoskeletal Disorders: No Hx Falls: No Other/Comment: let foot ulcer - GASTROINTESTINAL Hx Gastrointestinal Disorders: Yes Hx Gastroesophageal Reflux: Yes Hx Hemorrhoids: Yes - GENITOURINARY/GYNECOLOGICAL Hx Genitourinary Disorders: No - PSYCHIATRIC Hx Psychophysiologic Disorder: No Hx Substance Use: No - SURGICAL HISTORY Hx Surgeries: No Other/Comment: abdominal PEG tube - ANESTHESIA Hx Anesthesia: Yes Hx Anesthesia Reactions: No Hx Malignant Hyperthermia: No Meds Allergies/Adverse Reactions: Allergies Allergy/AdvReac Type Severity Reaction Status Date / Time oxycodone Allergy RASH Verified 10/20/17 20:32 - Medications Medications: Current Medications Acetaminophen (Tylenol 325mg Tab) 650 mg PO Q6 PRN PRN Reason: fever > 100.4 Amlodipine Besylate (Norvasc) 5 mg PO DAILY BRIAN Aspirin (Ecotrin) 81 mg PO DAILY BRIAN Atorvastatin Calcium (Lipitor) 40 mg PO HS [facility] Carvedilol (Coreg) 25 mg PO Q12 BRIAN Clopidogrel Bisulfate (Plavix) 75 mg PO DAILY BRIAN Donepezil HCl (Aricept) 5 mg PO HS BRIAN Ergocalciferol (Drisdol 50,000 Intl Units Cap) 1 cap PO QWK BRIAN Furosemide (Lasix) 20 mg IVP BID BRIAN Lactobacillus Acidophilus (Bacid Acidophilus) 1 cap PO BID BRIAN Metformin HCl (Glucophage) 500 mg PO BIDWM BRIAN Pantoprazole Sodium (Protonix Ec Tab) 40 mg PO DAILY BRIAN Sertraline HCl (Zoloft) 12.5 mg PO DAILY BRIAN Physical Exam - Constitutional Appears: Well - Head Exam Head Exam: NORMAL INSPECTION - Eye Exam Eye Exam: Normal appearance - ENT Exam ENT Exam: Normal Exam - Respiratory Exam Respiratory Exam: NORMAL BREATHING PATTERN - Cardiovascular Exam Cardiovascular Exam: REGULAR RHYTHM Results - Vital Signs Recent Vital Signs: Last Vital Signs Temp 98.0 F 10/21/17 05:10 Pulse 79 10/21/17 05:10 Resp 18 10/21/17 05:10 BP 164/79 H 10/21/17 05:10 Pulse Ox 100 10/21/17 06:24 - Labs Result Diagrams: 10/20/17 21:56 10/21/17 05:40 Labs: Laboratory Results - last 24 hr 10/20/17 10/20/17 10/20/17 21:41 21:56 21:56 WBC 4.9 RBC 2.84 L Hgb 8.4 L Hct 25.7 L MCV 90.5 MCH 29.5 MCHC 32.6 L RDW 17.7 H Plt Count 217 D MPV 8.7 Neut % (Auto) 68.7 Lymph % (Auto) 19.8 L [place] % (Auto) 8.3 Eos % (Auto) 2.7 Baso % (Auto) 0.5 Neut # (Auto) 3.3 Lymph # (Auto) 1.0 [place] # (Auto) 0.4 Eos # (Auto) 0.1 Baso # (Auto) 0.0 PT INR APTT Sodium 142 Potassium 4.6 Chloride 107 Carbon Dioxide 24 Anion Gap 16 BUN 35 H Creatinine 1.2 Est GFR ( Amer) 54 Est GFR (Non-Af Amer) 44 POC Glucose (mg/dL) 152 H Random Glucose 151 H Calcium 9.1 Iron Total Bilirubin 0.4 AST 17 ALT 23 Alkaline Phosphatase 68 Troponin I 0.0350 NT-Pro-B Natriuret Pep 2200 H Total Protein 7.4 Albumin 4.0 Globulin 3.4 Albumin/Globulin Ratio 1.2 10/20/17 10/21/17 10/21/17 21:56 05:40 05:40 WBC RBC Hgb Hct MCV MCH MCHC RDW Plt Count MPV Neut % (Auto) Lymph % (Auto) [place] % (Auto) Eos % (Auto) Baso % (Auto) Neut # (Auto) Lymph # (Auto) [place] # (Auto) Eos # (Auto) Baso # (Auto) PT 11.3 INR 1.0 APTT 29.3 Sodium 143 Potassium 4.1 Chloride 109 H Carbon Dioxide 25 Anion Gap 13 BUN 35 H Creatinine 1.1 Est GFR ( Amer) 59 Est GFR (Non-Af Amer) 49 POC Glucose (mg/dL) Random Glucose 107 H Calcium 8.8 Iron 36 L Total Bilirubin AST ALT Alkaline Phosphatase Troponin I NT-Pro-B Natriuret Pep Total Protein Albumin Globulin Albumin/Globulin Ratio Assessment & Plan (1) Acute on chronic systolic congestive heart failure Assessment and Plan: Pt has mild CHF agree with lasix IV BID Status: Acute (2) Diabetes mellitus with hyperglycemia Status: Chronic (3) Hypertension Status: Chronic
[2017-10-21 07:04] LABS: % IRON SATURATION 12 % (20-55); TOTAL IRON BINDING CAPACITY 291 ug/dL (250-450)
--- NOTE | 2017-10-21 08:45 | RAD ---
Date of service: 10/20/2017 HISTORY: sob COMPARISON: Portable chest 07/12/2017. FINDINGS: LUNGS: History volume appears diminished with increased mid pulmonary markings identified bilaterally. Borderline right perihilar airspace disease with right hemidiaphragm elevation identified in the interval of uncertain origin. PLEURA: No pleural effusion or pneumothorax bilaterally. CARDIOVASCULAR: Stable cardiomegaly. Borderline pulmonary vascular congestion. OSSEOUS STRUCTURES: No significant abnormalities. VISUALIZED UPPER ABDOMEN: Normal. OTHER FINDINGS: None. IMPRESSION: Borderline pulmonary vascular congestion. Developing airspace disease is suspected the mid right lung zone with none on the left. Elevated right hemidiaphragm identified.
[2017-10-21] MEDS: Pantoprazole 40 mg EC Tab PO SCH (09:40)
[2017-10-21] MEDS: Lactobacillus Acidophilus 500 MU Cap PO SCH ×2 (09:43→16:39)
--- NOTE | 2017-10-21 09:43 | RAD ---
Date of service: 10/21/2017 HISTORY: SOB COMPARISON: Frontal chest radiograph 10/20/2017. TECHNIQUE: Chest PA and lateral FINDINGS: LUNGS: No definite alveolitis however reticular markings are somewhat increased although improved aeration is noted bilaterally. Linear atelectasis identified bilaterally with fluid at the minor fissure versus local atelectasis. PLEURA: No significant pleural effusion identified. No pneumothorax apparent. CARDIOVASCULAR: Cardiomegaly is reiterated with pulmonary vascular congestion persistent if not moderately increased. OSSEOUS STRUCTURES: No significant abnormalities. VISUALIZED UPPER ABDOMEN: Normal. OTHER FINDINGS: None. IMPRESSION: Persistent if not increased active CHF. Linear atelectasis identified bilaterally with trace fluid suspected the minor fissure versus local atelectasis. Continued clinical and radiographic monitor advised.
--- NOTE | 2017-10-21 12:15 | CARD ---
APPROVED REPORT Date of service: 10/21/2017 EXAM: Two-dimensional and M-mode echocardiogram with Doppler and color Doppler. Other Information Quality : GoodRhythm : NSR INDICATION Dyspnea 2D DIMENSIONS IVSd1.23 (0.7-1.1cm)LVDd5.14 (3.9-5.9cm) LVOT Diameter2.17 (1.8-2.4cm)PWd1.01 (0.7-1.1cm) IVSs1.19 (0.8-1.2cm)LVDs4.15 (2.5-4.0cm) FS (%) 19.3 %PWs1.29 (0.8-1.2cm) M-Mode DIMENSIONS Left Atrium (MM)4.26 (2.5-4.0cm)IVSd1.21 (0.7-1.1cm) Aortic Root3.47 (2.2-3.7cm)LVDd5.41 (4.0-5.6cm) Aortic Cusp Exc.2.06 (1.5-2.0cm)IVSs1.50 cm FS (%) 33 %LVDs3.65 (2.0-3.8cm) PWs1.29 cm Aortic Valve AoV Peak Oqhtkvah609.9cm/sAoV VTI30.7cmAO Peak GR.7mmHg LVOT Peak Xwtnbzeq97.9cm/sLVOT VTI17.55cmAO Mean GR.4mmHg Mitral Valve MV E Ovqrhjje55.6cm/sMV DECEL [id number] A Bhmypase489.8cm/s MV VZK38glC/A ratio0.8MVA (PHT)4.07cm2 TDI Lateral E' Peak V6.27cm/sMedial E' Peak V6.19cm/sE/Lateral E'14.8 E/Medial E'15.0 Pulmonary Valve PV Peak Fephrcgu10.5cm/s Tricuspid Valve TR Peak Ophfmisw378sa/sRAP [id number] Peak Gr.43mmHg [id number] LEFT VENTRICLE The left ventricle is normal size. There is mild concentric left ventricular hypertrophy. The Ejection Fraction is 60-65%. The left ventricular function is normal. The Ejection Fraction is 60-65%. No regional wall motion abnormalities noted.. The left ventricular diastolic function is normal. No left ventricle thrombus noted on this study. There is no ventricular septal defect visualized. There is no mass noted in the left ventricle. RIGHT VENTRICLE The right ventricle is normal size. There is normal right ventricular wall thickness. The right ventricular systolic function is normal. ATRIA The left atrium size is mildly dilated The right atrium size is normal. The interatrial septum is intact with no evidence for an atrial septal defect. AORTIC VALVE The aortic valve is normal in structure. No aortic regurgitation is present. There is no aortic valvular stenosis. MITRAL VALVE The mitral valve is normal in structure. There is no mitral valve stenosis. There is mild mitral valve regurgitation noted. TRICUSPID VALVE The tricuspid valve is normal in structure. There is mild There is moderate pulmonary hypertension. tricuspid valve regurgitation noted. PULMONIC VALVE The pulmonary valve is normal in structure. There is no pulmonic valvular regurgitation. GREAT VESSELS The aortic root is normal in size. The ascending aorta is normal in size. The pulmonary artery is normal. The IVC is normal in size and collapses >50% with inspiration. PERICARDIAL EFFUSION There is no pericardial effusion. <Conclusion> Mild mitral insufficiency Mild TR with moderate pulmonary hypertension Dilated left atrium Mild LVH Normal LV function The Ejection Fraction is 60-65%.
--- NOTE | 2017-10-21 15:49 | CP.PCM.PN ---
Subjective - Date & Time of Evaluation Date of Evaluation: 10/21/17 Time of Evaluation: 11:45 - Subjective Subjective: Pt feels better after diuresis SOB better denies CP no abd pain no fever Pt says , she lives with her spouse , walks with walker/cane at home. Oriented, answers questions appropriately Would like to go back home on discharge bec she has been in [facility] for a long time Objective - Vital Signs/Intake and Output Vital Signs (last 24 hours): Temp Pulse Resp BP Pulse Ox 97.7 F 71 18 171/78 H 95 10/21/17 12:31 10/21/17 12:31 10/21/17 12:31 10/21/17 12:31 10/21/17 12:31 Intake and Output: 10/21/17 10/21/17 06:59 18:59 Intake Total 240 Balance 240 - Medications Medications: Current Medications Acetaminophen (Tylenol 325mg Tab) 650 mg PO Q6 PRN PRN Reason: fever > 100.4 Amlodipine Besylate (Norvasc) 5 mg PO DAILY COUNT INCLUDES THE [facility] Last Admin: 10/21/17 09:40 Dose: 5 mg Aspirin (Ecotrin) 81 mg PO DAILY COUNT INCLUDES THE [facility] Last Admin: 10/21/17 09:38 Dose: 81 mg Atorvastatin Calcium (Lipitor) 40 mg PO HS COUNT INCLUDES THE [facility] Carvedilol (Coreg) 25 mg PO Q12 COUNT INCLUDES THE [facility] Last Admin: 10/21/17 09:37 Dose: 25 mg Clopidogrel Bisulfate (Plavix) 75 mg PO DAILY COUNT INCLUDES THE [facility] Last Admin: 10/21/17 09:40 Dose: 75 mg Cyanocobalamin (Vitamin B12 1000 Mcg/Ml Inj) 1,000 mcg IM DAILY COUNT INCLUDES THE [facility] Last Admin: 10/21/17 09:40 Dose: 1,000 mcg Donepezil HCl (Aricept) 5 mg PO HS COUNT INCLUDES THE [facility] Ergocalciferol (Drisdol 50,000 Intl Units Cap) 1 cap PO QWK COUNT INCLUDES THE [facility] Folic Acid (Folic Acid) 1 mg PO DAILY COUNT INCLUDES THE [facility] Last Admin: 10/21/17 09:39 Dose: 1 mg Furosemide (Lasix) 20 mg IVP BID COUNT INCLUDES THE [facility] Last Admin: 10/21/17 09:39 Dose: 20 mg Lactobacillus Acidophilus (Bacid Acidophilus) 1 cap PO BID COUNT INCLUDES THE [facility] Last Admin: 10/21/17 09:43 Dose: 1 cap Metformin HCl (Glucophage) 500 mg PO BIDWM COUNT INCLUDES THE [facility] Last Admin: 10/21/17 09:39 Dose: 500 mg Pantoprazole Sodium (Protonix Ec Tab) 40 mg PO DAILY COUNT INCLUDES THE [facility] Last Admin: 10/21/17 09:40 Dose: 40 mg Sertraline HCl (Zoloft) 12.5 mg PO DAILY COUNT INCLUDES THE [facility] Last Admin: 10/21/17 09:41 Dose: 12.5 mg - Labs Labs: 10/20/17 21:56 10/21/17 05:40 PT 11.3 Seconds (9.8-13.1) 10/20/17 21:56 INR 1.0 10/20/17 21:56 APTT 29.3 Seconds (25.6-37.1) 10/20/17 21:56 - Constitutional Appears: No Acute Distress, Chronically Ill - Head Exam Head Exam: NORMAL INSPECTION, NORMOCEPHALIC - Eye Exam Eye Exam: EOMI, Normal appearance Pupil Exam: NORMAL ACCOMODATION - ENT Exam ENT Exam: Mucous Membranes Moist, Normal External Ear Exam - Neck Exam Neck Exam: Full ROM. absent: Meningismus - Respiratory Exam Respiratory Exam: Rales, NORMAL BREATHING PATTERN. absent: Wheezes, Respiratory Distress - Cardiovascular Exam Cardiovascular Exam: REGULAR RHYTHM, +S1, +S2 - GI/Abdominal Exam GI & Abdominal Exam: Soft, Normal Bowel Sounds. absent: Tenderness - Extremities Exam Extremities Exam: Full ROM, Normal Capillary Refill, Pedal Edema. absent: Calf Tenderness - Back Exam Back Exam: Full ROM. absent: CVA tenderness (L), CVA tenderness (R) - Neurological Exam Neurological Exam: Alert, Awake, Oriented x3 Neuro motor strength exam: Left Upper Extremity: 4, Right Upper Extremity: 5, Left Lower Extremity: 4, Right Lower Extremity: 5 - Psychiatric Exam Psychiatric exam: Normal Affect, Normal Mood - Skin Skin Exam: Dry, Normal Color, Warm Assessment and Plan - Assessment and Plan (Free Text) Assessment: 72 years old female with hx of DM II, HTN and CVA who comes with worsening SOB on exertion . This has been occurring for 2.5 weeks and at less than 15 feet distant to the bathroom. No chest pain, palpitation, nausea, vomits nor vomiting. She has a chronic diarrhea of more than 2-3 mos w/c she says is better today. 1. CHF exacerbation, Diastolic Dysfunction, EF 60-65% - Consult Cardiology Dr King - ECHO : Pulm HTN, normal EF - Pt started on IV Lasix - will continue - Rpt CXR still with PUlm Vasc Congestion, + Pedal edema -cont Coreg -resatrt Enalapril 2. HTN Uncontrolled - cont Norvasc/ Coreg - add Enalapril 3. DM type II with Hyperglycemia - Metformin - Lispro Insulin sliding scale according to accucheck - HbA1c 4. iron Def Anemia , chronic - stable since July - Iron panel low -will give Venofer - Vitamin B12 normal 5. History of CVA with mild left hemiparesis - cont ASA/ Lipitor/ Plavix #. DVT prophylaxis with Lovenox #. Code Status: Full, Surrogate Decision maker - spouse Yanick
[2017-10-21 19:54] LABS: FOLATE 15.2 ng/mL
[2017-10-22 08:17] VITALS: RESP 18
[2017-10-22] MEDS: Pantoprazole 40 mg EC Tab PO SCH (09:00)
--- NOTE | 2017-10-22 10:46 | CP.PCM.DIS ---
Provider - Provider Date of Admission: 10/20/17 22:30 Attending physician: Cesar Aly Primary care physician: Dr Babb Consults: Cardio : Dr King Time Spent in preparation of Discharge (in minutes): 35 Diagnosis - Discharge Diagnosis (1) Diastolic CHF, acute on chronic Status: Acute (2) CVA (cerebral vascular accident) Status: Chronic Priority: High (3) Diabetes mellitus with hyperglycemia Status: Chronic (4) Hypertension Status: Chronic (5) Uncontrolled hypertension Status: Acute Hospital Course - Lab Results Lab Results: Most Recent Lab Values WBC 4.9 K/uL (4.8-10.8) 10/20/17 21:56 RBC 2.84 Mil/uL (3.80-5.20) L 10/20/17 21:56 Hgb 8.4 g/dL (12.0-16.0) L 10/20/17 21:56 Hct 25.7 % (34.0-47.0) L 10/20/17 21:56 MCV 90.5 fl (81.0-99.0) 10/20/17 21:56 MCH 29.5 pg (27.0-31.0) 10/20/17 21:56 MCHC 32.6 g/dL (33.0-37.0) L 10/20/17 21:56 RDW 17.7 % (11.5-14.5) H 10/20/17 21:56 Plt Count 217 K/uL (130-400) D 10/20/17 21:56 MPV 8.7 fl (7.2-11.7) 10/20/17 21:56 Neut % (Auto) 68.7 % (50.0-75.0) 10/20/17 21:56 Lymph % (Auto) 19.8 % (20.0-40.0) L 10/20/17 21:56 Wheeler % (Auto) 8.3 % (0.0-10.0) 10/20/17 21:56 Eos % (Auto) 2.7 % (0.0-4.0) 10/20/17 21:56 Baso % (Auto) 0.5 % (0.0-2.0) 10/20/17 21:56 Neut # (Auto) 3.3 K/uL (1.8-7.0) 10/20/17 21:56 Lymph # (Auto) 1.0 K/uL (1.0-4.3) 10/20/17 21:56 Wheeler # (Auto) 0.4 K/uL (0.0-0.8) 10/20/17 21:56 Eos # (Auto) 0.1 K/uL (0.0-0.7) 10/20/17 21:56 Baso # (Auto) 0.0 K/uL (0.0-0.2) 10/20/17 21:56 PT 11.3 Seconds (9.8-13.1) 10/20/17 21:56 INR 1.0 10/20/17 21:56 APTT 29.3 Seconds (25.6-37.1) 10/20/17 21:56 Sodium 143 mmol/l (132-148) 10/21/17 05:40 Potassium 4.1 MMOL/L (3.6-5.0) 10/21/17 05:40 Chloride 109 mmol/L (98-107) H 10/21/17 05:40 Carbon Dioxide 25 mmol/L (22-30) 10/21/17 05:40 Anion Gap 13 (10-20) 10/21/17 05:40 BUN 35 mg/dl (7-17) H 10/21/17 05:40 Creatinine 1.1 mg/dl (0.7-1.2) 10/21/17 05:40 Est GFR ( Amer) 59 10/21/17 05:40 Est GFR (Non-Af Amer) 49 10/21/17 05:40 POC Glucose (mg/dL) 206 mg/dL (65-110) H 10/21/17 11:31 Random Glucose 107 mg/dL (65-105) H 10/21/17 05:40 Hemoglobin A1c 8.3 % (4.2-6.5) H 10/21/17 05:40 Calcium 8.8 mg/dL (8.4-10.2) 10/21/17 05:40 Iron 36 ug/dL (37-170) L 10/21/17 05:40 TIBC 291 ug/dL (250-450) 10/21/17 05:40 % Saturation 12 % (20-55) L 10/21/17 05:40 Total Bilirubin 0.4 mg/dl (0.2-1.3) 10/20/17 21:56 AST 17 U/L (14-36) 10/20/17 21:56 ALT 23 U/L (9-52) 10/20/17 21:56 Alkaline Phosphatase 68 U/L (38-126) 10/20/17 21:56 Troponin I 0.0350 ng/mL (0.00-0.120) 10/20/17 21:56 NT-Pro-B Natriuret Pep 2200 pg/ml (0-900) H 10/20/17 21:56 Total Protein 7.4 G/DL (6.3-8.2) 10/20/17 21:56 Albumin 4.0 g/dL (3.5-5.0) 10/20/17 21:56 Globulin 3.4 gm/dL (2.2-3.9) 10/20/17 21:56 Albumin/Globulin Ratio 1.2 (1.0-2.1) 10/20/17 21:56 Vitamin B12 539 pg/mL (239-931) 10/21/17 05:40 Folate 15.2 ng/mL 10/21/17 05:40 - Hospital Course Hospital Course: 72 years old female with hx of DM II, HTN and CVA who comes with worsening SOB on exertion . This has been occurring for 2.5 weeks and at less than 15 feet distant to the bathroom. No chest pain, palpitation, nausea, vomits nor vomiting. 1. CHF exacerbation, Diastolic Dysfunction, EF 60-65% - Consult Cardiology Dr King - ECHO : Pulm HTN, normal EF - Pt started on IV Lasix - Rpt CXR still with PUlm Vasc Congestion, + Pedal edema -cont Coreg, Enalapril and Lasix 2. HTN Uncontrolled - cont Norvasc/ Coreg - added Enalapril 3. DM type II with Hyperglycemia - cont Metformin - Lispro Insulin sliding scale according to accucheck - HbA1c 4. iron Def Anemia , chronic - stable since July - Iron panel low -givne Venofer - Vitamin B12 normal 5. History of CVA with mild left hemiparesis - cont ASA/ Lipitor/ Plavix 6. Diarrhea, resolved #. DVT prophylaxis with Lovenox #. Code Status: Full, Surrogate Decision maker - spouse Yanick Discharge Exam - Head Exam Head Exam: ATRAUMATIC, NORMAL INSPECTION, NORMOCEPHALIC - Eye Exam Eye Exam: EOMI, Normal appearance Pupil Exam: NORMAL ACCOMODATION - ENT Exam ENT Exam: Mucous Membranes Moist, Normal External Ear Exam - Neck Exam Neck exam: Full Rom - Respiratory Exam Respiratory Exam: NORMAL BREATHING PATTERN. absent: Rales, Wheezes, Respiratory Distress - Cardiovascular Exam Cardiovascular Exam: REGULAR RHYTHM, +S1, +S2 - GI/Abdominal Exam GI & Abdominal Exam: Normal Bowel Sounds - Back Exam Back exam: absent: CVA tenderness (L), CVA tenderness (R) - Neurological Exam Neurological exam: Alert, Oriented x3, Reflexes Normal - Psychiatric Exam Psychiatric exam: Normal Affect, Normal Mood - Skin Skin Exam: Dry, Normal Color, Warm Discharge Plan - Discharge Medications Prescriptions: Carvedilol [Coreg] 25 mg PO Q12 #60 tab Furosemide [Lasix] 20 mg PO BID #60 tablet - Follow Up Plan Condition: GOOD Disposition: HOME/ ROUTINE Instructions: Heart Failure, Adult (DC) Additional Instructions: ff up with Dr Babb colette Home RN, Home PT Referrals: Hayden King MD [Staff Provider] - Pito Babb MD [Family Provider] -
[2017-10-22] MEDS: Lactobacillus Acidophilus 500 MU Cap PO SCH (10:47)
[2017-10-22 16:16] VITALS: BP 160/76; PULSE 68; TEMP 97.1; O2SAT 95
== END 2017-10-22 17:35 | disposition home or self-care (01) ==
LOC: H.ER 20:19 → H.ERHOLD 22:30 → H.TEL 10-21 00:11
PROVIDERS: ADMIT Internal Medicine; ATTEND Internal Medicine
DX: I11.0 Hypertensive heart disease with heart failure (principal); E78.00 Pure hypercholesterolemia, unspecified; G30.9 Alzheimer's disease, unspecified; M54.9 Dorsalgia, unspecified; E11.65 Type 2 diabetes mellitus with hyperglycemia; R79.89 Other specified abnormal findings of blood chemistry; D50.9 Iron deficiency anemia, unspecified; I50.33 Acute on chronic diastolic (congestive) heart failure; I69.354 Hemiplegia and hemiparesis following cerebral infarction affecting left non-dominant side; E11.621 Type 2 diabetes mellitus with foot ulcer; J44.9 Chronic obstructive pulmonary disease, unspecified; K21.9 Gastro-esophageal reflux disease without esophagitis; K52.9 Noninfective gastroenteritis and colitis, unspecified; L97.509 Non-pressure chronic ulcer of other part of unspecified foot with unspecified severity; Z79.82 Long term (current) use of aspirin; Z79.02 Long term (current) use of antithrombotics/antiplatelets
CPT/HCPCS: 36415; 71045; 71046; 80048; 80053; 82607; 82746; 82948; 83036; 83540; 83550; 83880; 84484; 85025; 85610; 85730; 93005; 93306; 97162; 99285; G0378; G8978; G8979; J1756; J1940; J3420

== ENCOUNTER 2017-11-07 22:51 | Observation (INO) | payer OTHER ==
[2017-11-07 22:52] VITALS: BMI 31.6
[2017-11-08 00:09] LABS: BASO # 0.1 K/uL (0.0-0.2); BASO % 1.2 % (0.0-2.0); EOS # 0.2 K/uL (0.0-0.7); EOS % 2.7 % (0.0-4.0); HEMOGLOBIN 9.9 g/dL (12.0-16.0); LYMPH # 1.7 K/uL (1.0-4.3); MEAN CELL VOLUME 89.4 fl (81.0-99.0); MEAN CORPUSCULAR HEMOGLOBIN 29.3 pg (27.0-31.0); MEAN CORPUSCULAR HGB CONC 32.8 g/dL (33.0-37.0); MEAN PLATELET VOLUME 9.1 fl (7.2-11.7); MONO # 0.5 K/uL (0.0-0.8); MONO % 8.7 % (0.0-10.0); NEUT # 3.8 K/uL (1.8-7.0); NEUT % 60.4 % (50.0-75.0); RBC 3.38 Mil/uL (3.80-5.20); RED CELL DISTRIBUTION WIDTH 16.2 % (11.5-14.5); WHITE BLOOD COUNT 6.2 K/uL (4.8-10.8)
[2017-11-08 00:13] LABS: PROTHROMBIN TIME 10.8 Seconds (9.8-13.1)
[2017-11-08 00:16] LABS: PARTIAL THROMBOPLASTIN TIME 30.6 Seconds (25.6-37.1)
[2017-11-08 00:18] LABS: ALB/GLOB RATIO 1.2 (1.0-2.1); ALBUMIN 4.1 g/dL (3.5-5.0); ALT/SGPT 27 U/L (9-52); AST/SGOT 19 U/L (14-36); BLOOD UREA NITROGEN 36 mg/dl (7-17); GFR NON-AFRICAN AMERICAN 40
--- NOTE | 2017-11-08 00:19 | ED PDOC ---
HPI: SOB/CHF/COPD Time Seen by Provider: 11/07/17 23:01 Chief Complaint (Nursing): Shortness Of Breath Chief Complaint (Provider): Shortness Of Breath History Per: Patient History/Exam Limitations: no limitations Onset/Duration Of Symptoms: Hrs (x2) Current Symptoms Are (Timing): Still Present Associated Symptoms: Light-headedness. denies: Chest Pain, Bloody Cough, Productive Cough, Ankle/Leg Swelling Additional Complaint(s): 72 y/o female with a PMHx of Alzheimer's Disease, HTN, Hypercholesterolemia, CVA and diabetes presents to the ED complaining of shortness of breath, onset 2 hours prior to arrival. Patient states shortness of breath is associated with lightheadedness and is similar to previous episodes of shortness of breath from when she had "fluid in her lungs". Patient was just admitted to the hospital. Denies cough, chest pain and leg swelling PMD: Pito Babb Past Medical History Reviewed: Historical Data, Nursing Documentation, Vital Signs Vital Signs: Last Vital Signs Temp 98.2 F 11/09/17 13:00 Pulse 75 11/09/17 13:00 Resp 20 11/09/17 13:00 BP 151/78 H 11/09/17 13:00 Pulse Ox 96 11/09/17 13:00 - Medical History PMH: Alzheimer's Disease, CVA, Diabetes (type 2, NIDDM), HTN, Hypercholesterolemia Denies: HIV, Chronic Kidney Disease - Surgical History Surgical History: No Surg Hx - Family History Family History: States: Unknown Family Hx - Immunization History Hx Tetanus Toxoid Vaccination: No Hx Influenza Vaccination: No Hx Pneumococcal Vaccination: No - Home Medications Home Medications: Ambulatory Orders Medication Instructions Recorded Aspirin [Ecotrin] 81 mg PO DAILY #30 tabec 11/09/17 Carvedilol [Coreg] 25 mg PO Q12 #30 tab 11/09/17 Clopidogrel [Plavix] 25 mg PO DAILY #30 tab 11/09/17 Docusate Sodium [Colace] 100 mg PO BID #60 capsule 11/09/17 Donepezil [Aricept] 5 mg PO HS #30 tab 11/09/17 Ergocalciferol (Vitamin D2) 50,000 unit PO QWK #60 capsule 11/09/17 [Drisdol] Ferrous Sulfate [Feosol] 325 mg PO TID #90 tab 11/09/17 Furosemide [Lasix] 40 mg PO DAILY #30 tab 11/09/17 Lisinopril [Zestril] 10 mg PO DAILY #30 tab 11/09/17 Rosuvastatin Calcium [Crestor] 20 mg PO DAILY #30 tablet 11/09/17 Sertraline [Zoloft] 12.5 mg PO DAILY #30 tab 11/09/17 amLODIPine [Norvasc] 10 mg PO DAILY #30 tab 11/09/17 metFORMIN [glucOPHAGE] 500 mg PO BIDWM #60 tab 11/09/17 - Allergies Allergies/Adverse Reactions: Allergies Allergy/AdvReac Type Severity Reaction Status Date / Time oxycodone Allergy RASH Verified 10/20/17 20:32 Review of Systems ROS Statement: Except As Marked, All Systems Reviewed And Found Negative Cardiovascular: Negative for: Chest Pain Respiratory: Positive for: Shortness of Breath. Negative for: Cough Musculoskeletal: Negative for: Leg Pain (swelling) Neurological: Positive for: Other (Lightheadedness) Physical Exam - Reviewed Nursing Documentation Reviewed: Yes Vital Signs Reviewed: Yes - Physical Exam Appears: Positive for: Well, No Acute Distress (but hypertensive) Head Exam: Positive for: ATRAUMATIC, NORMOCEPHALIC Skin: Positive for: Warm, Dry, Pallor (Mild) Eye Exam: Positive for: EOMI, PERRL Neck: Positive for: Painless ROM, Supple Cardiovascular/Chest: Positive for: Regular Rate, Rhythm, Edema (trace) Respiratory: Positive for: Rales (rales at the left base otherwise clear to auscultation ). Negative for: Accessory Muscle Use, Wheezing, Respiratory Distress Gastrointestinal/Abdominal: Positive for: Soft. Negative for: Tenderness Back: Positive for: Normal Inspection. Negative for: Decreased ROM Extremity: Positive for: Normal ROM. Negative for: Deformity Lymphatic: Negative for: Adenopathy Neurologic/Psych: Positive for: Alert. Negative for: Motor/Sensory Deficits - Laboratory Results Result Diagrams: 11/09/17 04:20 11/09/17 04:20 - ECG O2 Sat by Pulse Oximetry: 98 (RA) Pulse Ox Interpretation: Normal Medical Decision Making Medical Decision Making: Time: 2350 Impression: Shortness of breath with HTN Differentials include but not limited to CHF, pneumonia, anemia Plan: -- Type and Screen -- EKG -- B-Type Natriuretic -- CMP -- Magnesium -- Phosphorus -- Troponin I -- ED Urine Dipstick -- CBC with differentials -- PTT -- Prothrombin Time -- CXR Portable -- Blood Culture -- IV Insertion Increased BUN/Cr c/w previous, perihilar congestion on CXR, elevated probnp. Needs hospitalization. [facility] resident. Scribe Attestation: Documented by Jose Luis Booth acting as a scribe for Magdalene Hairston MD. Provider Scribe Attestation: All medical record entries made by the Scribe were at my direction and personally dictated by me. I have reviewed the chart and agree that the record accurately reflects my personal performance of the history, physical exam, medical decision making, and the department course for this patient. I have also personally directed, reviewed, and agree with the discharge instructions and disposition. Disposition - Clinical Impression Clinical Impression: Acute on chronic systolic congestive heart failure Counseled Patient/Family Regarding: Studies Performed, Diagnosis - Disposition Disposition Time: 00:30 Condition: FAIR - Pt Status Changed To: Hospital Disposition Of: Observation - POA Present On Arrival: None
[2017-11-08 00:29] LABS: B-TYPE NATRIURETIC PEPTIDE 1510 pg/ml (0-900)
[2017-11-08] MEDS ORDERED: Nitroglycerin 2% Ointment Foilpak UD TOP STA (00:35)
--- NOTE | 2017-11-08 00:51 | CP.PCM.HP ---
History of Present Illness - History of Present Illness History of Present Illness: PMD: Pito Babb MD Chief Complaint: Shortness of Breath The Patient was seen and examined in the ED with family member present HPI: The hx was obtained from the Family member and after review of the medical records. She is a 72 years old female last admitted on 10/20/17 and discharged on 10/22/17 with diagnosis of Acute Congested heart Failure. She has hx of DM II, HTN and CVA and comes with 2Hrs of Sudden unset of SOB at rest. No chest pain, palpitation, nausea, vomits nor vomiting. She has mild lightheadedness. PMH: Alzheimer's Disease, CVA, Diabetes (type 2, NIDDM), HTN, HLD; Back pain; Abdominal wall cellulitis PSH: PEG placement and removal. SH: Never Smoked; No alcohol use; No illegal drug use;Live with family FH: States: Unknown Family Hx Allergies: oxycodone? Medication: Reviewed Present on Admission - Present on Admission Any Indicators Present on Admission: Yes History of DVT/PE: No History of Uncontrolled Diabetes: Yes Urinary Catheter: No Decubitus Ulcer Present: No Review of Systems - Review of Systems Systems not reviewed;Unavailable: Dementia Review of Systems: Review of systems is limited because of Dementia - Constitutional Constitutional: absent: Chills, Fever, Headache - EENT Eyes: Requires Corrective Lenses. absent: Blurred Vision, Diplopia, Floaters Nose/Mouth/Throat: absent: Epistaxis, Nasal Discharge - Cardiovascular Cardiovascular: Dyspnea, Orthopnea - Respiratory Respiratory: Chest Congestion - Gastrointestinal Gastrointestinal: absent: Vomiting - Hematologic/Lymphatic Hematologic: absent: Easy Bleeding, Easy Bruising Past Patient History - Past Medical History & Family History Past Medical History?: Yes - Past Social History Smoking Status: Never Smoked Chewing Tobacco Use: No Cigar Use: No Alcohol: None Home Situation {Lives}: With Family - CARDIAC Hx Hypercholesterolemia: Yes Hx Hypertension: Yes - PULMONARY Hx Respiratory Disorders: No - NEUROLOGICAL Hx Alzheimer's Disease: Yes - HEENT Hx HEENT Problems: No - RENAL Hx Chronic Kidney Disease: No - ENDOCRINE/METABOLIC Hx Endocrine Disorders: Yes Hx Diabetes Mellitus Type 2: Yes - HEMATOLOGICAL/ONCOLOGICAL Hx Human Immunodeficiency Virus (HIV): No - INTEGUMENTARY Hx Dermatological Problems: Yes Other/Comment: ulcers noted on bilateral great toes - MUSCULOSKELETAL/RHEUMATOLOGICAL Hx Musculoskeletal Disorders: No Hx Falls: No Other/Comment: let foot ulcer - GASTROINTESTINAL Hx Gastrointestinal Disorders: Yes Hx Gastroesophageal Reflux: Yes Hx Hemorrhoids: Yes - GENITOURINARY/GYNECOLOGICAL Hx Genitourinary Disorders: No - PSYCHIATRIC Hx Psychophysiologic Disorder: No Hx Substance Use: No - SURGICAL HISTORY Hx Surgeries: No Other/Comment: abdominal PEG tube - ANESTHESIA Hx Anesthesia: Yes Hx Anesthesia Reactions: No Hx Malignant Hyperthermia: No Meds Allergies/Adverse Reactions: Allergies Allergy/AdvReac Type Severity Reaction Status Date / Time oxycodone Allergy RASH Verified 10/20/17 20:32 Physical Exam - Constitutional Additional comments: In mild respiratory distress. - Head Exam Head Exam: ATRAUMATIC, NORMAL INSPECTION, NORMOCEPHALIC - Eye Exam Eye Exam: EOMI, Normal appearance Pupil Exam: NORMAL ACCOMODATION, PERRL - ENT Exam ENT Exam: Mucous Membranes Dry, Normal Exam, Normal External Ear Exam - Neck Exam Neck exam: Positive for: Full Rom, Normal Inspection. Negative for: Lymphadenopathy, Tenderness - Respiratory Exam Respiratory Exam: absent: Rhonchi, Wheezes Additional comments: Bibasal rales - Cardiovascular Exam Cardiovascular Exam: REGULAR RHYTHM, RRR, +S1, +S2. absent: Gallop - GI/Abdominal Exam Additional comments: Abdomen distended, firm, non tender, +ve bowel sounds, Tympanic at mid-abdomen and dull at the sides, Fluid thrills. - Rectal Exam Rectal Exam: Deferred - Extremities Exam Additional comments: Trace edema at both ankles. - Back Exam Back exam: NORMAL INSPECTION. absent: CVA tenderness (L), CVA tenderness (R) - Neurological Exam Neurological exam: Alert, CN II-XII Intact, Oriented x3, Reflexes Normal - Psychiatric Exam Psychiatric exam: Flat Affect - Skin Skin Exam: Dry, Intact, Normal Color, Warm Results - Vital Signs Recent Vital Signs: Last Vital Signs Temp 98.6 F 11/07/17 22:55 Pulse 82 11/08/17 00:14 Resp 21 11/08/17 00:14 BP 138/91 H 11/08/17 00:14 Pulse Ox 98 11/08/17 00:27 - Labs Result Diagrams: 11/08/17 00:05 11/08/17 00:05 Labs: Laboratory Results - last 24 hr 11/08/17 11/08/17 11/08/17 00:05 00:05 00:05 WBC 6.2 RBC 3.38 L Hgb 9.9 L Hct 30.2 L MCV 89.4 MCH 29.3 MCHC 32.8 L RDW 16.2 H Plt Count 265 MPV 9.1 Neut % (Auto) 60.4 Lymph % (Auto) 27.0 Mccreary % (Auto) 8.7 Eos % (Auto) 2.7 Baso % (Auto) 1.2 Neut # (Auto) 3.8 Lymph # (Auto) 1.7 Mccreary # (Auto) 0.5 Eos # (Auto) 0.2 Baso # (Auto) 0.1 PT 10.8 INR 1.0 APTT 30.6 Sodium 139 Potassium 4.2 Chloride 102 Carbon Dioxide 28 Anion Gap 13 BUN 36 H Creatinine 1.3 H Est GFR ( Amer) 49 Est GFR (Non-Af Amer) 40 Random Glucose 291 H Calcium 9.0 Phosphorus 4.3 Magnesium 1.8 Total Bilirubin 0.3 AST 19 ALT 27 Alkaline Phosphatase 79 Troponin I < 0.0120 NT-Pro-B Natriuret Pep 1510 H Total Protein 7.6 Albumin 4.1 Globulin 3.5 Albumin/Globulin Ratio 1.2 - Impressions Impression: NSR 84/min No sign of ischemia - Imaging and Cardiology Chest x-ray Status: Image reviewed by me Additional comment: Poor inspiration Bilateral interstitial infiltrate ECHO 10/21/17 Status: Report reviewed by me Additional comment: LVEF 60-65% Normal LV function Mild ND and TR Moderate Pulmonary hypertension Assessment & Plan - Assessment and Plan (Free Text) Assessment: #. Acute Chf #. Anemia #. Azotemia #. DM II #. Alzheimer #. HTN #. Hx of CVA Plan: 72 years old female last admitted on 10/20/17 and discharged on 10/22/17 with diagnosis of Acute Congested heart Failure. She has hx of DM II, HTN and CVA and comes with 2Hrs of Sudden unset of SOB at rest. No chest pain, palpitation, nausea, vomits nor vomiting. She has mild lightheadedness. #. Acute Chf with normal EF - Consult Dr Strickland Right Of Way Appraiser - Soo IV - coreg - Oxygen #. Anemia - Ferrous Sulfate - Follow Hb #. Azotemia - Follow Renal labs #. DM II with hyperglycemia - Regular Insulin sliding scale according to accucheck - Glucophage - HbA1c 8.3 on 10/21/17 #. Alzheimer Dementia - Aricept - zoloft #. HTN - Norvasc - coreg #. DVT prophylaxis with lovenox #. Code Status: Full - Date & Time Date: 11/08/17 Time: 00:51
[2017-11-08] MEDS ORDERED: Nitroglycerin 2% Ointment Foilpak UD TOP ONE (00:52)
[2017-11-08] MEDS ORDERED: Ergocalciferol 50,000 Intl Units Cap PO SCH (02:00)
[2017-11-08 02:12] LABS: SQUAMOUS EPITHIAL < 1 /hpf (0-5); URINE BACTERIA RARE (<OCC); URINE BILIRUBIN NEGATIVE (NEGATIVE); URINE BLOOD NEGATIVE (NEGATIVE); URINE CLARITY CLEAR (Clear); URINE COLOR STRAW (YELLOW); URINE GLUCOSE (UA) 150 mg/dL (Normal); URINE LEUKOCYTE ESTERASE TRACE Leu/uL (Negative); URINE PROTEIN NEGATIVE (NEGATIVE); URINE UROBILINOGEN 0.2-1.0 mg/dL (0.2-1.0)
--- NOTE | 2017-11-08 08:27 | RAD ---
Date of service: 11/07/2017 HISTORY: Shortness of breath COMPARISON: 10/21/2017. FINDINGS: LUNGS: There is interval improved aeration in the lungs. There is persistent multifocal linear atelectasis. PLEURA: No significant pleural effusion identified, no pneumothorax apparent. CARDIOVASCULAR: Normal. OSSEOUS STRUCTURES: No significant abnormalities. VISUALIZED UPPER ABDOMEN: Normal. OTHER FINDINGS: There is chronic elevation of the right hemidiaphragm IMPRESSION: Improved aeration in the lungs. Persistent multifocal linear subsegmental atelectasis.
--- NOTE | 2017-11-08 09:29 | CARD ---
APPROVED REPORT Date of service: 11/07/2017 <Conclusion> Normal sinus rhythm Normal ECG
[2017-11-08] MEDS: Insulin Regular 100 units/ml SC SCH ×4 (09:33→21:24)
[2017-11-08] MEDS: Enoxaparin 30 mg Syringe SC SCH (09:43)
--- NOTE | 2017-11-08 10:52 | CP.PCM.CON ---
History of Present Illness - History of Present Illness History of Present Illness: NOTE: CARDIOLOGY CONSULT WITH DR MAC WONG WAS REQUESTED AND I AM COVERING THE PATIENT IS A 72 YEAR OLD FEMALE WITH A RECENT ADMISSION TO [facility] FOR CHF, HYPERTENSION, HYPERLIPIDEMIA, ANEMIA, DM AND ALZHEIMER'S DISEASE. SHE IS NOT A GOOD HISTORIAN AND HISTORY OBTAINED FROM THE CHART AND SPEAKING TO THE HOSPITALIST. SHE WAS SOB YESTERDAY AND BROUGHT TO THE ER BY HER FAMILY AND SHE WAS ADMITTED. SHE STATES SHE IS BREATHING BETTER TODAY. SHE DENIES ANY CHEST PAIN. HER BLOOD PRESSURE WAS 203/85 AT 3:53 AM AND SHE WAS GIVEN IV HYDRALAZINE AND NITROPASTE AND IT WAS 167/69 AT 5 AM. Past Patient History - Past Medical History & Family History Past Medical History?: Yes - Past Social History Smoking Status: Never Smoked - CARDIAC Hx Hypercholesterolemia: Yes Hx Hypertension: Yes - PULMONARY Hx Respiratory Disorders: Yes - NEUROLOGICAL Hx Alzheimer's Disease: Yes - HEENT Hx HEENT Problems: No - RENAL Hx Chronic Kidney Disease: No - ENDOCRINE/METABOLIC Hx Endocrine Disorders: Yes Hx Diabetes Mellitus Type 2: Yes - HEMATOLOGICAL/ONCOLOGICAL Hx Human Immunodeficiency Virus (HIV): No - INTEGUMENTARY Hx Dermatological Problems: Yes - MUSCULOSKELETAL/RHEUMATOLOGICAL Hx Musculoskeletal Disorders: No Hx Falls: No - GASTROINTESTINAL Hx Gastrointestinal Disorders: Yes Hx Gastroesophageal Reflux: Yes Hx Hemorrhoids: Yes - GENITOURINARY/GYNECOLOGICAL Hx Genitourinary Disorders: No - PSYCHIATRIC Hx Psychophysiologic Disorder: No Hx Substance Use: No - SURGICAL HISTORY Hx Surgeries: No Other/Comment: abdominal PEG tube - ANESTHESIA Hx Anesthesia: Yes Hx Anesthesia Reactions: No Hx Malignant Hyperthermia: No Meds Allergies/Adverse Reactions: Allergies Allergy/AdvReac Type Severity Reaction Status Date / Time oxycodone Allergy RASH Verified 10/20/17 20:32 - Medications Medications: Current Medications Acetaminophen (Tylenol 325mg Tab) 650 mg PO Q6 PRN PRN Reason: Headache Amlodipine Besylate (Norvasc) 10 mg PO DAILY [facility] Last Admin: 11/08/17 09:40 Dose: 10 mg Aspirin (Ecotrin) 81 mg PO DAILY [facility] Last Admin: 11/08/17 09:32 Dose: 81 mg Atorvastatin Calcium (Lipitor) 40 mg PO DAILY [facility] Last Admin: 11/08/17 09:40 Dose: 40 mg Carvedilol (Coreg) 25 mg PO Q12 [facility] Last Admin: 11/08/17 09:29 Dose: 25 mg Clopidogrel Bisulfate (Plavix) 75 mg PO DAILY [facility] Last Admin: 11/08/17 09:41 Dose: 75 mg Docusate Sodium (Colace) 100 mg PO BID [facility] Last Admin: 11/08/17 09:28 Dose: 100 mg Donepezil HCl (Aricept) 5 mg PO HS [facility] Enoxaparin Sodium (Lovenox) 30 mg SC DAILY [facility] PRN Reason: Protocol Last Admin: 11/08/17 09:43 Dose: 30 mg Ergocalciferol (Drisdol 50,000 Intl Units Cap) 1 cap PO QWK [facility] Ferrous Sulfate (Feosol) 325 mg PO TID [facility] Last Admin: 11/08/17 09:32 Dose: 325 mg Furosemide (Lasix) 40 mg IVP BID [facility] Last Admin: 11/08/17 09:35 Dose: 40 mg Insulin Human Regular (Humulin R) 0 units SC ACHS [facility] PRN Reason: Protocol Last Admin: 11/08/17 09:33 Dose: 2 units Metformin HCl (Glucophage) 500 mg PO BIDWM [facility] Last Admin: 11/08/17 09:33 Dose: 500 mg Sertraline HCl (Zoloft) 12.5 mg PO DAILY [facility] Last Admin: 11/08/17 09:41 Dose: 12.5 mg Physical Exam - Respiratory Exam Respiratory Exam: Decreased Breath Sounds Additional comments: NO RALES THIS MORNING - Cardiovascular Exam Cardiovascular Exam: REGULAR RHYTHM, +S1, +S2 - Extremities Exam Additional comments: NO LE EDEMA THIS AM - Additional Findings Additional findings: EKG NSR TROPONIN NORMAL PBNP 1510 CXR POOR INSPIRATION IN MY OPINION, READ BY RADIOLOGIST IMPROVED AERATION COMPARED TO OLD CX RAYS, PERSISTANT MULTIFOCAL AREAS OF ATELECTASIS RECENT ,ECHO WITH GOOD LV SYSTOLIC FUNCTION, DIASTOLIC DYSFUNCTION Results - Vital Signs Recent Vital Signs: Last Vital Signs Temp 98.1 F 11/08/17 08:59 Pulse 84 11/08/17 09:40 Resp 18 11/08/17 08:59 BP 159/69 H 11/08/17 09:40 Pulse Ox 97 11/08/17 08:59 - Labs Result Diagrams: 11/08/17 00:05 11/08/17 00:05 Labs: Laboratory Results - last 24 hr 11/07/17 11/08/17 11/08/17 23:50 00:05 00:05 WBC 6.2 RBC 3.38 L Hgb 9.9 L Hct 30.2 L MCV 89.4 MCH 29.3 MCHC 32.8 L RDW 16.2 H Plt Count 265 MPV 9.1 Neut % (Auto) 60.4 Lymph % (Auto) 27.0 [place] % (Auto) 8.7 Eos % (Auto) 2.7 Baso % (Auto) 1.2 Neut # (Auto) 3.8 Lymph # (Auto) 1.7 [place] # (Auto) 0.5 Eos # (Auto) 0.2 Baso # (Auto) 0.1 PT INR APTT Sodium 139 Potassium 4.2 Chloride 102 Carbon Dioxide 28 Anion Gap 13 BUN 36 H Creatinine 1.3 H Est GFR ( Amer) 49 Est GFR (Non-Af Amer) 40 POC Glucose (mg/dL) Random Glucose 291 H Calcium 9.0 Phosphorus 4.3 Magnesium 1.8 Total Bilirubin 0.3 AST 19 ALT 27 Alkaline Phosphatase 79 Troponin I < 0.0120 NT-Pro-B Natriuret Pep 1510 H Total Protein 7.6 Albumin 4.1 Globulin 3.5 Albumin/Globulin Ratio 1.2 Urine Color Urine Clarity Urine pH Ur Specific [place] Urine Protein Urine Glucose (UA) Urine Ketones Urine Blood Urine Nitrate Urine Bilirubin Urine Urobilinogen Ur Leukocyte Esterase Urine RBC (Auto) Urine Microscopic WBC Ur Squamous Epith Cells Urine Bacteria Blood Type A POSITIVE Antibody Screen Negative BBK History Checked Patient has bt 11/08/17 11/08/17 11/08/17 00:05 01:42 02:00 WBC RBC Hgb Hct MCV MCH MCHC RDW Plt Count MPV Neut % (Auto) Lymph % (Auto) [place] % (Auto) Eos % (Auto) Baso % (Auto) Neut # (Auto) Lymph # (Auto) [place] # (Auto) Eos # (Auto) Baso # (Auto) PT 10.8 INR 1.0 APTT 30.6 Sodium Potassium Chloride Carbon Dioxide Anion Gap BUN Creatinine Est GFR ( Amer) Est GFR (Non-Af Amer) POC Glucose (mg/dL) 256 H Random Glucose Calcium Phosphorus Magnesium Total Bilirubin AST ALT Alkaline Phosphatase Troponin I NT-Pro-B Natriuret Pep Total Protein Albumin Globulin Albumin/Globulin Ratio Urine Color Straw Urine Clarity Clear Urine pH 7.0 Ur Specific [place] 1.008 Urine Protein Negative Urine Glucose (UA) 150 Urine Ketones Negative Urine Blood Negative Urine Nitrate Negative Urine Bilirubin Negative Urine Urobilinogen 0.2-1.0 Ur Leukocyte Esterase Trace Urine RBC (Auto) 1 Urine Microscopic WBC 7 H Ur Squamous Epith Cells < 1 Urine Bacteria Rare Blood Type Antibody Screen BBK History Checked 11/08/17 05:43 WBC RBC Hgb Hct MCV MCH MCHC RDW Plt Count MPV Neut % (Auto) Lymph % (Auto) [place] % (Auto) Eos % (Auto) Baso % (Auto) Neut # (Auto) Lymph # (Auto) [place] # (Auto) Eos # (Auto) Baso # (Auto) PT INR APTT Sodium Potassium Chloride Carbon Dioxide Anion Gap BUN Creatinine Est GFR ( Amer) Est GFR (Non-Af Amer) POC Glucose (mg/dL) 228 H Random Glucose Calcium Phosphorus Magnesium Total Bilirubin AST ALT Alkaline Phosphatase Troponin I NT-Pro-B Natriuret Pep Total Protein Albumin Globulin Albumin/Globulin Ratio Urine Color Urine Clarity Urine pH Ur Specific [place] Urine Protein Urine Glucose (UA) Urine Ketones Urine Blood Urine Nitrate Urine Bilirubin Urine Urobilinogen Ur Leukocyte Esterase Urine RBC (Auto) Urine Microscopic WBC Ur Squamous Epith Cells Urine Bacteria Blood Type Antibody Screen BBK History Checked Assessment & Plan - Assessment and Plan (Free Text) Assessment: PROBABLE ACUTE SYSTOLIC CHF FROM ELEVATED BLOOD PRESSURE COMBINE WITH CHRONIC SYSTOLIC DYSFUNCTION [id number]? ANEMIA DM ALZHEIMER'S DISEASE Plan: THE PATIENT WAS ADMITTED TO 4N ON TELEMETRY O2, CARVEDILOL, IV FUROSEMIDE, ATORVASTATIN, ASPIRIN, CLOPIDOGREL, AMLODIPINE, LOVENOX WILL ADD LISINOPRIL AND NITROPASTE CXR PA AND LATERAL WOULD KEEP IN HOSPITAL AT LEAST ONE MOR DAY FOR BETTER BLOOD PRESSURE CONTROL
[2017-11-08] MEDS: Nitroglycerin 2% Ointment Foilpak UD TOP SCH ×3 (13:56→22:26)
--- NOTE | 2017-11-08 15:56 | RAD ---
Date of service: 11/08/2017 HISTORY: PORT CXR NOT SUFFICIENT COMPARISON: Chest radiograph dated 11/07/2017. TECHNIQUE: Chest PA and lateral FINDINGS: LUNGS: Right midlung scarring. Right basilar and and peripheral left midlung scarring. Pulmonary vascular congestion. No focal consolidation. PLEURA: No significant pleural effusion identified. No pneumothorax apparent. CARDIOVASCULAR: Atherosclerotic aortic calcifications. Cardiomediastinal silhouette stably enlarged. OSSEOUS STRUCTURES: Unchanged. VISUALIZED UPPER ABDOMEN: Normal. OTHER FINDINGS: None. IMPRESSION: Pulmonary vascular congestion. No focal consolidation or pleural effusion.
[2017-11-09 05:31] LABS: BASO % 0.5 % (0.0-2.0); EOS # 0.1 K/uL (0.0-0.7); EOS % 1.9 % (0.0-4.0); HEMOGLOBIN 10.4 g/dL (12.0-16.0); LYMPH # 1.8 K/uL (1.0-4.3); LYMPH % 27.6 % (20.0-40.0); MEAN CORPUSCULAR HEMOGLOBIN 28.9 pg (27.0-31.0); MEAN CORPUSCULAR HGB CONC 32.5 g/dL (33.0-37.0); MEAN PLATELET VOLUME 8.9 fl (7.2-11.7); MONO # 0.5 K/uL (0.0-0.8); MONO % 7.3 % (0.0-10.0); NEUT % 62.7 % (50.0-75.0); RBC 3.59 Mil/uL (3.80-5.20); RED CELL DISTRIBUTION WIDTH 16.1 % (11.5-14.5); WHITE BLOOD COUNT 6.4 K/uL (4.8-10.8)
[2017-11-09 05:49] LABS: CALCIUM 8.8 mg/dL (8.4-10.2)
[2017-11-09] MEDS: Nitroglycerin 2% Ointment Foilpak UD TOP SCH ×3 (06:13→16:26)
[2017-11-09 08:25] VITALS: RESP 20
[2017-11-09] MEDS: Insulin Regular 100 units/ml SC SCH ×3 (09:52→16:26)
[2017-11-09] MEDS: Enoxaparin 30 mg Syringe SC SCH (09:55)
--- NOTE | 2017-11-09 10:17 | CP.PCM.PN ---
Subjective - Date & Time of Evaluation Date of Evaluation: 11/09/17 Time of Evaluation: 10:00 - Subjective Subjective: BREATHING WELL THIS MORNING NO CHEST PAIN Objective - Vital Signs/Intake and Output Vital Signs (last 24 hours): Temp Pulse Resp BP Pulse Ox 97.8 F 72 20 144/72 93 L 11/09/17 08:00 11/09/17 09:58 11/09/17 08:00 11/09/17 09:58 11/09/17 08:00 - Medications Medications: Current Medications Acetaminophen (Tylenol 325mg Tab) 650 mg PO Q6 PRN PRN Reason: Headache Amlodipine Besylate (Norvasc) 10 mg PO DAILY [facility] Last Admin: 11/09/17 09:56 Dose: 10 mg Aspirin (Ecotrin) 81 mg PO DAILY [facility] Last Admin: 11/09/17 09:51 Dose: 81 mg Atorvastatin Calcium (Lipitor) 40 mg PO DAILY [facility] Last Admin: 11/09/17 09:55 Dose: 40 mg Carvedilol (Coreg) 25 mg PO Q12 [facility] Last Admin: 11/08/17 21:17 Dose: 25 mg Clopidogrel Bisulfate (Plavix) 75 mg PO DAILY [facility] Last Admin: 11/09/17 09:57 Dose: 75 mg Docusate Sodium (Colace) 100 mg PO BID [facility] Last Admin: 11/09/17 09:29 Dose: Not Given Donepezil HCl (Aricept) 5 mg PO HS [facility] Last Admin: 11/08/17 21:18 Dose: 5 mg Enoxaparin Sodium (Lovenox) 30 mg SC DAILY [facility] PRN Reason: Protocol Last Admin: 11/09/17 09:55 Dose: 30 mg Ergocalciferol (Drisdol 50,000 Intl Units Cap) 1 cap PO QWK [facility] Ferrous Sulfate (Feosol) 325 mg PO TID [facility] Last Admin: 11/09/17 09:29 Dose: 325 mg Insulin Human Regular (Humulin R) 0 units SC [facility] PRN Reason: Protocol Last Admin: 11/09/17 09:52 Dose: 1 units Lisinopril (Zestril) 10 mg PO DAILY [facility] Last Admin: 11/09/17 09:58 Dose: 10 mg Metformin HCl (Glucophage) 500 mg PO BIDWM [facility] Last Admin: 11/09/17 09:52 Dose: 500 mg Nitroglycerin (Nitro-Bid 2% Oint) 1 ea TOP Q6H [facility] Last Admin: 11/09/17 06:13 Dose: 1 ea Sertraline HCl (Zoloft) 12.5 mg PO DAILY [facility] Last Admin: 11/09/17 09:58 Dose: 12.5 mg - Labs Labs: 11/09/17 04:20 11/09/17 04:20 PT 10.8 Seconds (9.8-13.1) 11/08/17 00:05 INR 1.0 11/08/17 00:05 APTT 30.6 Seconds (25.6-37.1) 11/08/17 00:05 - Respiratory Exam Respiratory Exam: Clear to Ausculation Bilateral - Cardiovascular Exam Cardiovascular Exam: REGULAR RHYTHM, +S1, +S2 - Extremities Exam Extremities Exam: Normal Inspection - Additional Findings Additional findings: 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
--- NOTE | 2017-11-09 11:16 | CP.PCM.DIS ---
Provider - Provider Date of Admission: 11/08/17 00:37 Attending physician: Cesar Aly Time Spent in preparation of Discharge (in minutes): 30 Diagnosis - Discharge Diagnosis (1) CHF (congestive heart failure) Status: Acute Hospital Course - Lab Results Lab Results: Micro Results 11/07/17 23:50 Blood-Venous Blood Culture - Preliminary NO GROWTH AFTER 24 HOURS Most Recent Lab Values WBC 6.4 K/uL (4.8-10.8) 11/09/17 04:20 RBC 3.59 Mil/uL (3.80-5.20) L 11/09/17 04:20 Hgb 10.4 g/dL (12.0-16.0) L 11/09/17 04:20 Hct 31.9 % (34.0-47.0) L 11/09/17 04:20 MCV 89.0 fl (81.0-99.0) 11/09/17 04:20 MCH 28.9 pg (27.0-31.0) 11/09/17 04:20 MCHC 32.5 g/dL (33.0-37.0) L 11/09/17 04:20 RDW 16.1 % (11.5-14.5) H 11/09/17 04:20 Plt Count 261 K/uL (130-400) 11/09/17 04:20 MPV 8.9 fl (7.2-11.7) 11/09/17 04:20 Neut % (Auto) 62.7 % (50.0-75.0) 11/09/17 04:20 Lymph % (Auto) 27.6 % (20.0-40.0) 11/09/17 04:20 [place] % (Auto) 7.3 % (0.0-10.0) 11/09/17 04:20 Eos % (Auto) 1.9 % (0.0-4.0) 11/09/17 04:20 Baso % (Auto) 0.5 % (0.0-2.0) 11/09/17 04:20 Neut # (Auto) 4.0 K/uL (1.8-7.0) 11/09/17 04:20 Lymph # (Auto) 1.8 K/uL (1.0-4.3) 11/09/17 04:20 [place] # (Auto) 0.5 K/uL (0.0-0.8) 11/09/17 04:20 Eos # (Auto) 0.1 K/uL (0.0-0.7) 11/09/17 04:20 Baso # (Auto) 0.0 K/uL (0.0-0.2) 11/09/17 04:20 PT 10.8 Seconds (9.8-13.1) 11/08/17 00:05 INR 1.0 11/08/17 00:05 APTT 30.6 Seconds (25.6-37.1) 11/08/17 00:05 Sodium 138 mmol/l (132-148) 11/09/17 04:20 Potassium 4.0 MMOL/L (3.6-5.0) 11/09/17 04:20 Chloride 100 mmol/L (98-107) 11/09/17 04:20 Carbon Dioxide 31 mmol/L (22-30) H 11/09/17 04:20 Anion Gap 11 (10-20) 11/09/17 04:20 BUN 45 mg/dl (7-17) H 11/09/17 04:20 Creatinine 1.4 mg/dl (0.7-1.2) H 11/09/17 04:20 Est GFR ( Amer) 45 11/09/17 04:20 Est GFR (Non-Af Amer) 37 11/09/17 04:20 POC Glucose (mg/dL) 160 mg/dL (65-110) H 11/08/17 21:23 Random Glucose 161 mg/dL (65-105) H 11/09/17 04:20 Calcium 8.8 mg/dL (8.4-10.2) 11/09/17 04:20 Phosphorus 4.3 mg/dl (2.5-4.5) 11/08/17 00:05 Magnesium 1.8 MG/DL (1.6-2.3) 11/08/17 00:05 Total Bilirubin 0.3 mg/dl (0.2-1.3) 11/08/17 00:05 AST 19 U/L (14-36) 11/08/17 00:05 ALT 27 U/L (9-52) 11/08/17 00:05 Alkaline Phosphatase 79 U/L (38-126) 11/08/17 00:05 Troponin I < 0.0120 ng/mL (0.00-0.120) 11/08/17 00:05 NT-Pro-B Natriuret Pep 1510 pg/ml (0-900) H 11/08/17 00:05 Total Protein 7.6 G/DL (6.3-8.2) 11/08/17 00:05 Albumin 4.1 g/dL (3.5-5.0) 11/08/17 00:05 Globulin 3.5 gm/dL (2.2-3.9) 11/08/17 00:05 Albumin/Globulin Ratio 1.2 (1.0-2.1) 11/08/17 00:05 Procalcitonin 0.05 NG/ML (0.19-0.49) L 11/08/17 04:20 Urine Color Straw (YELLOW) 11/08/17 02:00 Urine Clarity Clear (Clear) 11/08/17 02:00 Urine pH 7.0 (5.0-8.0) 11/08/17 02:00 Ur Specific [place] 1.008 (1.003-1.030) 11/08/17 02:00 Urine Protein Negative mg/dL (NEGATIVE) 11/08/17 02:00 Urine Glucose (UA) 150 mg/dL (Normal) 11/08/17 02:00 Urine Ketones Negative mg/dL (NEGATIVE) 11/08/17 02:00 Urine Blood Negative (NEGATIVE) 11/08/17 02:00 Urine Nitrate Negative (NEGATIVE) 11/08/17 02:00 Urine Bilirubin Negative (NEGATIVE) 11/08/17 02:00 Urine Urobilinogen 0.2-1.0 mg/dL (0.2-1.0) 11/08/17 02:00 Ur Leukocyte Esterase Trace Jr/uL (Negative) 11/08/17 02:00 Urine RBC (Auto) 1 /hpf (0-3) 11/08/17 02:00 Urine Microscopic WBC 7 /hpf (0-5) H 11/08/17 02:00 Ur Squamous Epith Cells < 1 /hpf (0-5) 11/08/17 02:00 Urine Bacteria Rare (<OCC) 11/08/17 02:00 Blood Type A POSITIVE 11/07/17 23:50 Antibody Screen Negative 11/07/17 23:50 BBK History Checked Patient has bt 11/07/17 23:50 - Hospital Course Hospital Course: 72 years old female last admitted on 10/20/17 and discharged on 10/22/17 with diagnosis of Acute Congested heart Failure. She has hx of DM II, HTN and CVA and comes with 2Hrs of Sudden unset of SOB at rest. No chest pain, palpitation, nausea, vomits nor vomiting. She has mild lightheadedness. Patient was admitted for acute on chronic congestive heart failure with preserved EF. Patient did well with diuresis, evaluated by Cardiology Dr. Poole, appreciated. Patient improved, stable for discharge home today with follow up with Cardiology and PCP in one week. #. Acute CHF with normal EF - Consult Dr Strickland Still Operator Batch Or Continuous - Lasix IV - coreg - Oxygen #. Anemia - Ferrous Sulfate - Follow Hb #. Azotemia - Follow Renal labs #. DM II with hyperglycemia - Regular Insulin sliding scale according to accucheck - Glucophage - HbA1c 8.3 on 10/21/17 #. Alzheimer Dementia - Aricept - zoloft #. HTN - Norvasc - coreg #. DVT prophylaxis with lovenox Discharge Exam - Head Exam Head Exam: ATRAUMATIC, NORMAL INSPECTION, NORMOCEPHALIC - Eye Exam Eye Exam: EOMI, Normal appearance, PERRL - ENT Exam ENT Exam: Mucous Membranes Dry, Normal Oropharynx - Neck Exam Neck exam: Full Rom, Normal Inspection - Respiratory Exam Respiratory Exam: Clear to PA & Lateral, NORMAL BREATHING PATTERN - Cardiovascular Exam Cardiovascular Exam: RRR, +S1, +S2 - GI/Abdominal Exam GI & Abdominal Exam: Normal Bowel Sounds, Soft. absent: Organomegaly - Extremities Exam Extremities exam: normal capillary refill, pedal pulses present - Back Exam Back exam: NORMAL INSPECTION. absent: rash noted - Neurological Exam Neurological exam: Alert, Reflexes Normal - Psychiatric Exam Psychiatric exam: Normal Affect, Normal Mood - Skin Skin Exam: Dry, Warm Discharge Plan - Discharge Medications Prescriptions: amLODIPine [Norvasc] 10 mg PO DAILY #30 tab Aspirin [Ecotrin] 81 mg PO DAILY #30 tabec Carvedilol [Coreg] 25 mg PO Q12 #30 tab Clopidogrel [Plavix] 25 mg PO DAILY #30 tab Docusate Sodium [Colace] 100 mg PO BID #60 capsule Donepezil [Aricept] 5 mg PO HS #30 tab Ergocalciferol (Vitamin D2) [Drisdol] 50,000 unit PO QWK #60 capsule Ferrous Sulfate [Feosol] 325 mg PO TID #90 tab Furosemide [Lasix] 40 mg PO DAILY #30 tab Lisinopril [Zestril] 10 mg PO DAILY #30 tab metFORMIN [glucOPHAGE] 500 mg PO BIDWM #60 tab Rosuvastatin Calcium [Crestor] 20 mg PO DAILY #30 tablet Sertraline [Zoloft] 12.5 mg PO DAILY #30 tab - Follow Up Plan Condition: GOOD Disposition: HOME/ ROUTINE Additional Instructions: follow up PCP in one week. Referrals: Hayden Strickland MD [Staff Provider] - Pito Babb MD [Family Provider] -
[2017-11-09 15:56] VITALS: TEMP 97.8; O2SAT 96
[2017-11-09 16:27] VITALS: BP 151/78; PULSE 75
== END 2017-11-09 16:30 | disposition home or self-care (01) ==
LOC: H.ER 22:51 → H.ERHOLD 11-08 00:37 → H.TEL 11-08 03:45
PROVIDERS: ADMIT Internal Medicine; ATTEND Internal Medicine
DX: I11.0 Hypertensive heart disease with heart failure (principal); I50.23 Acute on chronic systolic (congestive) heart failure; I27.20 Pulmonary hypertension, unspecified; E11.65 Type 2 diabetes mellitus with hyperglycemia; E11.621 Type 2 diabetes mellitus with foot ulcer; F02.80 Dementia in other diseases classified elsewhere, unspecified severity, without behavioral disturbance, psychotic disturbance, mood disturbance, and anxiety; G30.9 Alzheimer's disease, unspecified; L97.529 Non-pressure chronic ulcer of other part of left foot with unspecified severity; K21.9 Gastro-esophageal reflux disease without esophagitis; E78.5 Hyperlipidemia, unspecified; E78.00 Pure hypercholesterolemia, unspecified; D64.9 Anemia, unspecified; Z86.73 Personal history of transient ischemic attack (TIA), and cerebral infarction without residual deficits; Z79.82 Long term (current) use of aspirin; Z79.84 Long term (current) use of oral hypoglycemic drugs; Z88.6 Allergy status to analgesic agent
CPT/HCPCS: 36415; 71045; 71046; 80048; 80053; 81003; 82948; 83735; 83880; 84100; 84145; 84484; 85025; 85610; 85730; 86850; 86900; 87040; 87086; 93005; 96374; 96376; 99285; G0378; J0360; J1650; J1940

== ENCOUNTER 2017-11-24 21:13 | Emergency (ER) | payer OTHER ==
[2017-11-24 21:13] VITALS: BMI 31.6
--- NOTE | 2017-11-24 22:44 | ED PDOC ---
HPI: SOB/CHF/COPD Time Seen by Provider: 11/24/17 21:43 Chief Complaint (Nursing): Respiratory Distress Chief Complaint (Provider): Shortness of breath History Per: Family History/Exam Limitations: clinical condition Onset/Duration Of Symptoms: Days Additional Complaint(s): 72yo female, history of CHF, dementia, brought to ER by her for evaluation of shortness of breath. Patient is a poor historian due to her clinical history and HPI obtained from . Per , while patient was walking he noted she was short of breath; currently at rest, patient states she is feeling fine. Patient also noted to have lower extremity swelling x 1 week; per , she is compliant with her "water pills" but the swelling is persistent. Otherwise, no chest pain, weakness, fevers or cough. No other medical complaints. PMD: Dr. Babb Past Medical History Reviewed: Historical Data, Nursing Documentation, Vital Signs Vital Signs: Last Vital Signs Temp 97.7 F 11/25/17 01:40 Pulse 84 11/25/17 01:40 Resp 16 11/25/17 01:40 BP 153/68 H 11/25/17 01:42 Pulse Ox 95 11/25/17 01:40 - Medical History PMH: Alzheimer's Disease, CHF, CVA, Dementia, Diabetes (type 2, NIDDM), HTN, Hypercholesterolemia Denies: HIV, Chronic Kidney Disease - Surgical History Surgical History: No Surg Hx - Family History Family History: States: No Known Family Hx - Living Arrangements Living Arrangements: With Family - Immunization History Hx Tetanus Toxoid Vaccination: No Hx Influenza Vaccination: No Hx Pneumococcal Vaccination: No - Home Medications Home Medications: Ambulatory Orders Medication Instructions Recorded Aspirin [Ecotrin] 81 mg PO DAILY #30 tabec 11/09/17 Carvedilol [Coreg] 25 mg PO Q12 #30 tab 11/09/17 Clopidogrel [Plavix] 25 mg PO DAILY #30 tab 11/09/17 Docusate Sodium [Colace] 100 mg PO BID #60 capsule 11/09/17 Donepezil [Aricept] 5 mg PO HS #30 tab 11/09/17 Ergocalciferol (Vitamin D2) 50,000 unit PO QWK #60 capsule 11/09/17 [Drisdol] Ferrous Sulfate [Feosol] 325 mg PO TID #90 tab 11/09/17 Furosemide [Lasix] 40 mg PO DAILY #30 tab 11/09/17 Lisinopril [Zestril] 10 mg PO DAILY #30 tab 11/09/17 Rosuvastatin Calcium [Crestor] 20 mg PO DAILY #30 tablet 11/09/17 Sertraline [Zoloft] 12.5 mg PO DAILY #30 tab 11/09/17 amLODIPine [Norvasc] 10 mg PO DAILY #30 tab 11/09/17 metFORMIN [glucOPHAGE] 500 mg PO BIDWM #60 tab 11/09/17 - Allergies Allergies/Adverse Reactions: Allergies Allergy/AdvReac Type Severity Reaction Status Date / Time oxycodone Allergy RASH Verified 11/24/17 21:25 Review of Systems ROS Statement: Except As Marked, All Systems Reviewed And Found Negative Constitutional: Negative for: Fever Cardiovascular: Negative for: Chest Pain Respiratory: Positive for: SOB with Exertion. Negative for: Cough, Sputum Musculoskeletal: Positive for: Other (lower extremity swelling) Physical Exam - Reviewed Nursing Documentation Reviewed: Yes Vital Signs Reviewed: Yes - Physical Exam Appears: Positive for: Non-toxic, No Acute Distress Head Exam: Positive for: ATRAUMATIC, NORMAL INSPECTION, NORMOCEPHALIC Skin: Positive for: Normal Color, Warm, DRY Eye Exam: Positive for: EOMI, Normal appearance, PERRL Neck: Positive for: Normal, Painless ROM Cardiovascular/Chest: Positive for: Regular Rate, Rhythm Respiratory: Positive for: Normal Breath Sounds. Negative for: Wheezing Pulses-Radial (L): 2+ Pulses-Radial (R): 2+ Gastrointestinal/Abdominal: Positive for: Normal Exam, Soft Back: Positive for: Normal Inspection Extremity: Positive for: Normal ROM, Pedal Edema (2+ pitting edema bilaterally) . Negative for: Calf Tenderness, Deformity Neurologic/Psych: Positive for: Alert, Oriented. Negative for: Motor/Sensory Deficits - Laboratory Results Result Diagrams: 11/24/17 22:58 11/24/17 22:58 - ECG O2 Sat by Pulse Oximetry: 96 (RA) Pulse Ox Interpretation: Normal Medical Decision Making Medical Decision Making: Impression: Dyspnea Differential: CHF, ACS, less likely COPD or PE Plan: * EKG * Chest x-ray * Labs Scribe Attestation: Documented by Lizet Sparrow, acting as a scribe for Ca Do MD. Provider Scribe Attestation: All medical record entries made by the Scribe were at my direction and personally dictated by me. I have reviewed the chart and agree that the record accurately reflects my personal performance of the history, physical exam, medical decision making, and the department course for this patient. I have also personally directed, reviewed, and agree with the discharge instructions and disposition. Disposition - Clinical Impression Clinical Impression: CHF (congestive heart failure) - Patient ED Disposition Is Patient to be Admitted: No Counseled Patient/Family Regarding: Studies Performed, Diagnosis, Need For Followup - Disposition Referrals: Pito Babb MD [Family Provider] - Disposition: Routine/Home Disposition Time: 00:00 Condition: GOOD Additional Instructions: BRXATON BAIG, thank you for letting us take care of you today. Your provider was Ca Do MD and you were treated for DIFFICULTY BREATHING. The emergency medical care you received today was directed at your acute symptoms. If you were prescribed any medication, please fill it and take as directed. It may take several days for your symptoms to resolve. Return to the Emergency Department if your symptoms worsen, do not improve, or if you have any other problems. Please contact your doctor or call one of the physicians/clinics you have been referred to that are listed on the Patient Visit Information form that is included in your discharge packet. Bring any paperwork you were given at discharge with you along with any medications you are taking to your follow up visit. Our treatment cannot replace ongoing medical care by a primary care provider outside of the emergency department. Thank you for allowing the [facility] team to be part of your care today. If you had an X-Ray or CT scan: A Radiologist will review the ED reading if any change in treatment is needed we will contact you. If you had a blood, urine, or wound culture: It will take several days for the results, if any change in treatment is needed we will contact you. If you had an STI test: It will take 48 hours for the results. Please call after 1 week if you have not heard back. Instructions: Heart Failure, Adult Print Language: THAI
[2017-11-24 23:09] LABS: BASO # 0.1 K/uL (0.0-0.2); BASO % 1.1 % (0.0-2.0); EOS # 0.2 K/uL (0.0-0.7); EOS % 2.1 % (0.0-4.0); HEMOGLOBIN 10.2 g/dL (12.0-16.0); LYMPH # 1.2 K/uL (1.0-4.3); LYMPH % 14.1 % (20.0-40.0); MEAN CELL VOLUME 90.5 fl (81.0-99.0); MEAN CORPUSCULAR HEMOGLOBIN 30.1 pg (27.0-31.0); MEAN CORPUSCULAR HGB CONC 33.2 g/dL (33.0-37.0); MEAN PLATELET VOLUME 9.3 fl (7.2-11.7); MONO # 0.5 K/uL (0.0-0.8); MONO % 5.8 % (0.0-10.0); NEUT # 6.7 K/uL (1.8-7.0); NEUT % 76.9 % (50.0-75.0); RBC 3.4 Mil/uL (3.80-5.20); RED CELL DISTRIBUTION WIDTH 15.8 % (11.5-14.5); WHITE BLOOD COUNT 8.8 K/uL (4.8-10.8)
[2017-11-24 23:30] LABS: B-TYPE NATRIURETIC PEPTIDE 1500 pg/ml (0-900)
[2017-11-24 23:31] LABS: BLOOD UREA NITROGEN 32 mg/dl (7-17); GFR NON-AFRICAN AMERICAN 55
[2017-11-24 23:52] LABS: CALCIUM 8.8 mg/dL (8.4-10.2)
[2017-11-25 01:40] VITALS: BP 153/68; PULSE 84; RESP 16; TEMP 97.7
--- NOTE | 2017-11-25 08:45 | RAD ---
Date of service: 11/24/2017 PROCEDURE: CHEST RADIOGRAPH, 1 VIEW HISTORY: dyspnea COMPARISON: Chest radiographs 04/21/2017. FINDINGS: LUNGS: No definite alveolitis bilaterally. PLEURA: No pneumothorax or pleural fluid seen. CARDIOVASCULAR: Borderline cardiomegaly persists. Peripheral fibrotic changes are reiterated with overall interstitial pattern not increased in the interval as well as hilar vascular markings. CHF is not favored. Clinically correlate nevertheless. OSSEOUS STRUCTURES: No significant abnormalities. VISUALIZED UPPER ABDOMEN: Elevated right hemidiaphragm reiterated. OTHER FINDINGS: None. IMPRESSION: Chronic interstitial pulmonary disease reiterated with CHF not favored as discussed above but clinical correlation for this is nevertheless advised. No definite alveolitis or pleural effusion bilaterally. Elevated right hemidiaphragm reiterated.
--- NOTE | 2017-11-25 08:45 | CARD ---
APPROVED REPORT Date of service: 11/24/2017 <Conclusion> Normal sinus rhythm Low voltage QRS Borderline ECG
[2017-11-26 16:16] VITALS: O2SAT 96
== END 2017-11-25 01:50 | disposition home or self-care (01) ==
LOC: H.ER 21:13
DX: I50.9 Heart failure, unspecified (principal); E11.9 Type 2 diabetes mellitus without complications; E78.00 Pure hypercholesterolemia, unspecified; F02.80 Dementia in other diseases classified elsewhere, unspecified severity, without behavioral disturbance, psychotic disturbance, mood disturbance, and anxiety; G30.9 Alzheimer's disease, unspecified; I11.0 Hypertensive heart disease with heart failure; Z79.84 Long term (current) use of oral hypoglycemic drugs; Z86.73 Personal history of transient ischemic attack (TIA), and cerebral infarction without residual deficits
CPT/HCPCS: 71045; 80048; 83880; 84484; 85025; 93005; 96374; 96376; 99285; J1940

== ENCOUNTER 2017-12-03 04:07 | Emergency (ER) | payer OTHER ==
[2017-12-03 04:07] VITALS: BMI 31.6
[2017-12-03 05:19] LABS: BASO % 0.5 % (0.0-2.0); EOS # 0.2 K/uL (0.0-0.7); EOS % 2.8 % (0.0-4.0); HEMOGLOBIN 9.4 g/dL (12.0-16.0); LYMPH # 1.1 K/uL (1.0-4.3); LYMPH % 18.5 % (20.0-40.0); MEAN CELL VOLUME 91.2 fl (81.0-99.0); MEAN CORPUSCULAR HEMOGLOBIN 29.6 pg (27.0-31.0); MEAN CORPUSCULAR HGB CONC 32.5 g/dL (33.0-37.0); MEAN PLATELET VOLUME 9.7 fl (7.2-11.7); MONO # 0.4 K/uL (0.0-0.8); MONO % 7.1 % (0.0-10.0); NEUT # 4.1 K/uL (1.8-7.0); NEUT % 71.1 % (50.0-75.0); RBC 3.18 Mil/uL (3.80-5.20); RED CELL DISTRIBUTION WIDTH 15.5 % (11.5-14.5); WHITE BLOOD COUNT 5.8 K/uL (4.8-10.8)
[2017-12-03 05:27] LABS: BLOOD UREA NITROGEN 32 mg/dl (7-17); CALCIUM 8.6 mg/dL (8.4-10.2); GFR NON-AFRICAN AMERICAN 49
[2017-12-03 05:38] LABS: B-TYPE NATRIURETIC PEPTIDE 978 pg/ml (0-900)
--- NOTE | 2017-12-03 05:45 | ED PDOC ---
HPI: General Adult Time Seen by Provider: 12/03/17 04:32 Chief Complaint (Nursing): Chest Pain Chief Complaint (Provider): Shortness of breath, cough and congestion History Per: Patient, Family () History/Exam Limitations: other (dementia) Onset/Duration Of Symptoms: Days (couple of days) Additional Complaint(s): 72 year old female with a history of dementia, chf, and htn present to the ED with shortness of breath, cough, and congestion that has been going on for a couple of days. Patient is unable to provide information due to dementia. As per , patient had been experiencing symptoms prompting ED visit. She has no chest pain, leg swelling, fever, or any other medical complaints. PMD: Dr. Linn Past Medical History Reviewed: Historical Data, Nursing Documentation, Vital Signs Vital Signs: Last Vital Signs Temp 97 F L 12/03/17 06:47 Pulse 68 12/03/17 06:29 Resp 22 12/03/17 06:29 BP 145/77 12/03/17 06:29 Pulse Ox 98 12/03/17 06:29 - Medical History PMH: Alzheimer's Disease, CHF, CVA, Dementia, Diabetes (type 2, NIDDM), HTN, Hypercholesterolemia Denies: HIV, Chronic Kidney Disease - Surgical History Surgical History: No Surg Hx - Family History Family History: States: Unknown Family Hx - Immunization History Hx Tetanus Toxoid Vaccination: No Hx Influenza Vaccination: No Hx Pneumococcal Vaccination: No - Home Medications Home Medications: Ambulatory Orders Medication Instructions Recorded Aspirin [Ecotrin] 81 mg PO DAILY #30 tabec 11/09/17 Carvedilol [Coreg] 25 mg PO Q12 #30 tab 11/09/17 Clopidogrel [Plavix] 25 mg PO DAILY #30 tab 11/09/17 Docusate Sodium [Colace] 100 mg PO BID #60 capsule 11/09/17 Donepezil [Aricept] 5 mg PO HS #30 tab 11/09/17 Ergocalciferol (Vitamin D2) 50,000 unit PO QWK #60 capsule 11/09/17 [Drisdol] Ferrous Sulfate [Feosol] 325 mg PO TID #90 tab 11/09/17 Furosemide [Lasix] 40 mg PO DAILY #30 tab 11/09/17 Lisinopril [Zestril] 10 mg PO DAILY #30 tab 11/09/17 Rosuvastatin Calcium [Crestor] 20 mg PO DAILY #30 tablet 11/09/17 Sertraline [Zoloft] 12.5 mg PO DAILY #30 tab 11/09/17 amLODIPine [Norvasc] 10 mg PO DAILY #30 tab 11/09/17 metFORMIN [glucOPHAGE] 500 mg PO BIDWM #60 tab 11/09/17 - Allergies Allergies/Adverse Reactions: Allergies Allergy/AdvReac Type Severity Reaction Status Date / Time oxycodone Allergy RASH Verified 11/24/17 21:25 Review of Systems ROS Statement: Except As Marked, All Systems Reviewed And Found Negative Constitutional: Negative for: Fever ENT: Positive for: Nose Congestion Cardiovascular: Negative for: Chest Pain Respiratory: Positive for: Cough, Shortness of Breath Musculoskeletal: Positive for: Other (no leg swelling) Physical Exam - Reviewed Nursing Documentation Reviewed: Yes Vital Signs Reviewed: Yes - Physical Exam Appears: Positive for: No Acute Distress (comfortable) Head Exam: Positive for: ATRAUMATIC, NORMAL INSPECTION, NORMOCEPHALIC Skin: Positive for: Normal Color, Warm, Dry Eye Exam: Positive for: Normal appearance, EOMI, PERRL ENT: Positive for: Normal ENT Inspection Neck: Positive for: Normal Cardiovascular/Chest: Positive for: Regular Rate, Rhythm. Negative for: Murmur Respiratory: Positive for: Normal Breath Sounds. Negative for: Respiratory Distress Gastrointestinal/Abdominal: Positive for: Normal Exam, Soft. Negative for: Tenderness Back: Positive for: Normal Inspection Extremity: Positive for: Normal ROM. Negative for: Pedal Edema Neurologic/Psych: Positive for: Alert, Oriented - Laboratory Results Result Diagrams: 12/03/17 05:15 12/03/17 05:15 - ECG ECG: Positive for: Interpreted By Me, Viewed By Me ECG Rhythm: Positive for: Normal QRS, Normal ST Segment, Sinus Rhythm. Negative for: ST/T Changes Rate: 69 O2 Sat by Pulse Oximetry: 96 (RA) Pulse Ox Interpretation: Normal Medical Decision Making Medical Decision Making: Time: 0450 Initial Impression: Shortness of breath, cough and congestion Differential diagnoses include but are not limited to: CHF exacerbation, rule out pna Initial Plan: --EKG --B-type natriuretic peptide --BMP --Troponin --CBC with differentials --CXR Time: 06 CXR: --CXR viewed by provider, demonstrates chronic interstitial disease, vascular congestion, chronic pulmonary disease. Scribe Attestation: Documented by Mary Moseley, acting as a scribe for Ca oD MD Provider Scribe Attestation: All medical record entries made by the Scribe were at my direction and personally dictated by me. I have reviewed the chart and agree that the record accurately reflects my personal performance of the history, physical exam, medical decision making, and the department course for this patient. I have also personally directed, reviewed, and agree with the discharge instructions and disposition. Disposition - Clinical Impression Clinical Impression: CHF (congestive heart failure) - Patient ED Disposition Is Patient to be Admitted: No Doctor Will See Patient In The: Office Counseled Patient/Family Regarding: Studies Performed, Diagnosis, Need For Followup - Disposition Referrals: Pito Babb MD [Family Provider] - Disposition: Routine/Home Disposition Time: 06:30 Condition: GOOD Additional Instructions: BRAXTON BAIG, thank you for letting us take care of you today. Your provider was Ca Do MD and you were treated for SOB. The emergency medical care you received today was directed at your acute symptoms. If you were prescribed any medication, please fill it and take as directed. It may take several days for your symptoms to resolve. Return to the Emergency Department if your symptoms worsen, do not improve, or if you have any other problems. Please contact your doctor or call one of the physicians/clinics you have been referred to that are listed on the Patient Visit Information form that is included in your discharge packet. Bring any paperwork you were given at discharge with you along with any medications you are taking to your follow up visit. Our treatment cannot replace ongoing medical care by a primary care provider outside of the emergency department. Thank you for allowing the [facility] team to be part of your care today. If you had an X-Ray or CT scan: A Radiologist will review the ED reading if any change in treatment is needed we will contact you. If you had a blood, urine, or wound culture: It will take several days for the results, if any change in treatment is needed we will contact you. If you had an STI test: It will take 48 hours for the results. Please call after 1 week if you have not heard back. Instructions: Heart Failure, Adult, Heart Healthy Diet
[2017-12-03 06:29] VITALS: BP 145/77; RESP 22
[2017-12-03 06:47] VITALS: TEMP 97
--- NOTE | 2017-12-03 09:58 | RAD ---
Date of service: 12/03/2017 PROCEDURE: CHEST RADIOGRAPH, 1 VIEW HISTORY: dyspnea COMPARISON: 11/24/2017 FINDINGS: LUNGS: Bilateral interstitial infiltrates. PLEURA: No pneumothorax or pleural fluid seen. CARDIOVASCULAR: Normal. OSSEOUS STRUCTURES: No significant abnormalities. VISUALIZED UPPER ABDOMEN: Normal. OTHER FINDINGS: None. IMPRESSION: Bilateral interstitial infiltrates.
--- NOTE | 2017-12-03 10:33 | CARD ---
APPROVED REPORT Date of service: 12/03/2017 <Conclusion> Normal sinus rhythm Normal ECG
[2017-12-03 23:12] VITALS: PULSE 69; O2SAT 96
== END 2017-12-03 06:47 | disposition home or self-care (01) ==
LOC: H.ER 04:07
DX: I50.9 Heart failure, unspecified (principal); I11.0 Hypertensive heart disease with heart failure; G30.9 Alzheimer's disease, unspecified; E11.9 Type 2 diabetes mellitus without complications; Z79.84 Long term (current) use of oral hypoglycemic drugs; Z86.73 Personal history of transient ischemic attack (TIA), and cerebral infarction without residual deficits; F02.80 Dementia in other diseases classified elsewhere, unspecified severity, without behavioral disturbance, psychotic disturbance, mood disturbance, and anxiety
CPT/HCPCS: 71045; 80048; 83880; 84484; 85025; 93005; 96374; 99283; J1940

== ENCOUNTER 2017-12-08 00:29 | Emergency (ER) | payer OTHER ==
[2017-12-08 00:29] VITALS: BMI 31.6
[2017-12-08 01:36] LABS: HEMOGLOBIN 9.9 g/dL (12.0-16.0); MEAN CELL VOLUME 90.8 fl (81.0-99.0); MEAN CORPUSCULAR HEMOGLOBIN 30.1 pg (27.0-31.0); MEAN CORPUSCULAR HGB CONC 33.2 g/dL (33.0-37.0); RBC 3.28 Mil/uL (3.80-5.20); WHITE BLOOD COUNT 6.9 K/uL (4.8-10.8)
[2017-12-08 01:45] LABS: BLOOD UREA NITROGEN 40 mg/dl (7-17); CALCIUM 8.9 mg/dL (8.4-10.2); GFR NON-AFRICAN AMERICAN 44
[2017-12-08 01:57] LABS: B-TYPE NATRIURETIC PEPTIDE 1130 pg/ml (0-900)
--- NOTE | 2017-12-08 02:31 | ED PDOC ---
HPI: SOB/CHF/COPD Time Seen by Provider: 12/08/17 00:52 Chief Complaint (Nursing): Shortness Of Breath Chief Complaint (Provider): Shortness of breath History Per: Family History/Exam Limitations: no limitations Additional Complaint(s): 72yo female, history of CHF and dementia, brought to ER by because he believed the patient was shortness of breath. Currently, patient denies any shortness of breath or other symptoms. She denies any chest pain as well and states she has no difficulty walking. Patient also has an appointment with her cobbler mckay Dr. Cheung tomorrow. PMD: Pito Babb Past Medical History Reviewed: Historical Data, Nursing Documentation, Vital Signs Vital Signs: Last Vital Signs Temp 98.6 F 12/08/17 00:47 Pulse 75 12/08/17 01:00 Resp 18 12/08/17 01:00 BP 158/66 H 12/08/17 01:00 Pulse Ox 97 12/08/17 01:00 - Medical History PMH: Alzheimer's Disease, Anemia, CHF, CVA, Dementia, Depression, Diabetes (type 2, NIDDM), HTN, Hypercholesterolemia, Hyperlipidemia, Peripheral Edema, Pneumonia (Aspiration pnuemonia), Chronic Kidney Disease Denies: HIV - Surgical History Surgical History: No Surg Hx - Family History Family History: States: Unknown Family Hx - Immunization History Hx Tetanus Toxoid Vaccination: No Hx Influenza Vaccination: No Hx Pneumococcal Vaccination: No - Home Medications Home Medications: Ambulatory Orders Medication Instructions Recorded Aspirin [Ecotrin] 81 mg PO DAILY #30 tabec 11/09/17 Carvedilol [Coreg] 25 mg PO Q12 #30 tab 11/09/17 Clopidogrel [Plavix] 25 mg PO DAILY #30 tab 11/09/17 Docusate Sodium [Colace] 100 mg PO BID #60 capsule 11/09/17 Donepezil [Aricept] 5 mg PO HS #30 tab 11/09/17 Ergocalciferol (Vitamin D2) 50,000 unit PO QWK #60 capsule 11/09/17 [Drisdol] Ferrous Sulfate [Feosol] 325 mg PO TID #90 tab 11/09/17 Furosemide [Lasix] 40 mg PO DAILY #30 tab 11/09/17 Lisinopril [Zestril] 10 mg PO DAILY #30 tab 11/09/17 Rosuvastatin Calcium [Crestor] 20 mg PO DAILY #30 tablet 11/09/17 Sertraline [Zoloft] 12.5 mg PO DAILY #30 tab 11/09/17 amLODIPine [Norvasc] 10 mg PO DAILY #30 tab 11/09/17 metFORMIN [glucOPHAGE] 500 mg PO BIDWM #60 tab 11/09/17 - Allergies Allergies/Adverse Reactions: Allergies Allergy/AdvReac Type Severity Reaction Status Date / Time oxycodone Allergy RASH Verified 12/08/17 00:47 Review of Systems ROS Statement: Except As Marked, All Systems Reviewed And Found Negative Cardiovascular: Negative for: Chest Pain Respiratory: Positive for: Shortness of Breath Musculoskeletal: Negative for: Other (difficulty walking) Physical Exam - Reviewed Nursing Documentation Reviewed: Yes Vital Signs Reviewed: Yes - Physical Exam Appears: Positive for: Non-toxic, No Acute Distress Head Exam: Positive for: ATRAUMATIC, NORMAL INSPECTION, NORMOCEPHALIC Skin: Positive for: Normal Color Eye Exam: Positive for: Normal appearance Neck: Positive for: Supple Cardiovascular/Chest: Positive for: Regular Rate, Rhythm, Chest Non Tender Respiratory: Positive for: Normal Breath Sounds. Negative for: Rales, Rhonchi, Wheezing Gastrointestinal/Abdominal: Positive for: Normal Exam, Soft Back: Positive for: Normal Inspection Extremity: Positive for: Normal ROM, Pedal Edema (mild 1+ pitting edema bilaterally) Neurologic/Psych: Positive for: Alert, Oriented. Negative for: Motor/Sensory Deficits - Laboratory Results Result Diagrams: 12/08/17 01:14 12/08/17 01:14 - ECG O2 Sat by Pulse Oximetry: 97 (RA) Pulse Ox Interpretation: Normal Medical Decision Making Medical Decision Making: Assessment: 72yo female, brought for evaluation of possible exacerbation of CHF No signs of fluid overload. Normal vitals, patient is very well appearing. Plan: -- Labs -- Chest x-ray 02:24 Labs show BNP levels within normal limits for patient; compared to prior levels. Chest x-ray reviewed, no signs of fluid overload. Patient is very well appearing and is stable to be discharged home. Patient instructed to f/u with her cobbler mckay tomorrow as scheduled. Scribe Attestation: Documented by Lizet Sparrow, acting as a scribe for Jerzy Goldberg MD. Provider Scribe Attestation: All medical record entries made by the Scribe were at my direction and personally dictated by me. I have reviewed the chart and agree that the record accurately reflects my personal performance of the history, physical exam, medical decision making, and the department course for this patient. I have also personally directed, reviewed, and agree with the discharge instructions and disposition. Disposition - Clinical Impression Clinical Impression: Dyspnea, Chronic congestive heart failure - Patient ED Disposition Is Patient to be Admitted: No - Disposition Referrals: Hayden Strickland MD [Staff Provider] - Disposition: Routine/Home Disposition Time: 02:36 Condition: STABLE Instructions: Heart Failure, Adult (DC), Shortness of Breath (Dyspnea) (DC) Forms: [employer] (Ukrainian)
[2017-12-08 02:53] VITALS: BP 148/81; PULSE 77; RESP 19; TEMP 97.7
[2017-12-08 03:07] VITALS: O2SAT 97
--- NOTE | 2017-12-08 12:42 | RAD ---
Date of service: 12/08/2017 HISTORY: chf, sob COMPARISON: Chest radiograph dated 12/03/2017. TECHNIQUE: Chest PA and lateral FINDINGS: LUNGS: Stable appearance of bilateral scarring. No active pulmonary disease. PLEURA: Stable mild elevation of the right hemidiaphragm. No significant pleural effusion identified. No pneumothorax apparent. CARDIOVASCULAR: Atherosclerotic aortic calcifications. Cardiomediastinal silhouette stably enlarged OSSEOUS STRUCTURES: Unchanged. VISUALIZED UPPER ABDOMEN: Normal. OTHER FINDINGS: None. IMPRESSION: No active disease.
== END 2017-12-08 02:58 | disposition home or self-care (01) ==
LOC: H.ER 00:29
DX: R06.00 Dyspnea, unspecified (principal); I50.9 Heart failure, unspecified; E11.9 Type 2 diabetes mellitus without complications; E78.5 Hyperlipidemia, unspecified; F02.80 Dementia in other diseases classified elsewhere, unspecified severity, without behavioral disturbance, psychotic disturbance, mood disturbance, and anxiety

== ENCOUNTER 2017-12-09 10:04 | Inpatient (IN) | payer OTHER ==
[2017-12-09 10:04] VITALS: BMI 31.6
[2017-12-09] MEDS ORDERED: Dextrose 50% SYRINGE Inj (50 ml) IVP STA (10:48)
[2017-12-09] MEDS ORDERED: Dextrose 50% SYRINGE Inj (50 ml) ONE (10:59)
--- NOTE | 2017-12-09 11:14 | ED PDOC ---
HPI: General Adult Time Seen by Provider: 12/09/17 10:29 Chief Complaint (Nursing): Abnormal Labs Chief Complaint (Provider): Low blood sugar History Per: Patient, Family ( ) History/Exam Limitations: no limitations Current Symptoms Are (Timing): Still Present Additional Complaint(s): 72 year old female with a history of diabetes and 2 strokes presents to the ED with low blood sugar. Patient lives at home with her who reports that her blood sugar was a 39 this morning. He then called EMS because she became diaphoretic. She usually takes 4 different oral diabetes medications that he does not know the name of, but states that she did not take them today before arrival. Patient was prescribed a water pill by her telemetry technician due to recent weight gain of 10 pounds over the last month. Denies fever, loss of appetite, cough and other medical complaints. PMD: Dr. Babb Shipping Specialist: Dr. Strickland Past Medical History Reviewed: Historical Data, Nursing Documentation, Vital Signs Vital Signs: Last Vital Signs Temp 96.6 F L 12/09/17 10:07 Pulse 61 12/09/17 10:07 Resp 19 12/09/17 10:07 BP 176/69 H 12/09/17 10:07 Pulse Ox 100 12/09/17 10:07 - Medical History PMH: Alzheimer's Disease, Anemia, CHF, CVA, Dementia, Depression, Diabetes (type 2, NIDDM), HTN, Hypercholesterolemia, Hyperlipidemia, Peripheral Edema, Pneumonia (Aspiration pnuemonia), Chronic Kidney Disease Denies: HIV - Surgical History Surgical History: No Surg Hx - Family History Family History: States: Unknown Family Hx - Immunization History Hx Tetanus Toxoid Vaccination: No Hx Influenza Vaccination: No Hx Pneumococcal Vaccination: No - Home Medications Home Medications: Ambulatory Orders Medication Instructions Recorded Aspirin [Ecotrin] 81 mg PO DAILY #30 tabec 11/09/17 Carvedilol [Coreg] 25 mg PO Q12 #30 tab 11/09/17 Clopidogrel [Plavix] 25 mg PO DAILY #30 tab 11/09/17 Docusate Sodium [Colace] 100 mg PO BID #60 capsule 11/09/17 Donepezil [Aricept] 5 mg PO HS #30 tab 11/09/17 Ergocalciferol (Vitamin D2) 50,000 unit PO QWK #60 capsule 11/09/17 [Drisdol] Ferrous Sulfate [Feosol] 325 mg PO TID #90 tab 11/09/17 Furosemide [Lasix] 40 mg PO DAILY #30 tab 11/09/17 Lisinopril [Zestril] 10 mg PO DAILY #30 tab 11/09/17 Rosuvastatin Calcium [Crestor] 20 mg PO DAILY #30 tablet 11/09/17 Sertraline [Zoloft] 12.5 mg PO DAILY #30 tab 11/09/17 amLODIPine [Norvasc] 10 mg PO DAILY #30 tab 11/09/17 metFORMIN [glucOPHAGE] 500 mg PO BIDWM #60 tab 11/09/17 - Allergies Allergies/Adverse Reactions: Allergies Allergy/AdvReac Type Severity Reaction Status Date / Time oxycodone Allergy RASH Verified 12/08/17 00:47 Review of Systems ROS Statement: Except As Marked, All Systems Reviewed And Found Negative Constitutional: Positive for: Weakness Physical Exam - Reviewed Nursing Documentation Reviewed: Yes Vital Signs Reviewed: Yes - Physical Exam Appears: Positive for: Non-toxic, No Acute Distress Head Exam: Positive for: ATRAUMATIC, NORMAL INSPECTION, NORMOCEPHALIC Skin: Positive for: Warm, Dry, Pallor Eye Exam: Positive for: EOMI, Normal appearance, PERRL Neck: Positive for: Normal, Painless ROM, Supple Cardiovascular/Chest: Positive for: Regular Rate, Rhythm. Negative for: Murmur Respiratory: Positive for: Rales (at the base of bilateral lungs) Gastrointestinal/Abdominal: Positive for: Normal Exam, Soft. Negative for: Tenderness Extremity: Positive for: Pedal Edema (+1 edema in bilateral legs) Neurologic/Psych: Positive for: Alert, Oriented - Laboratory Results Result Diagrams: 12/09/17 11:00 12/09/17 11:00 - ECG O2 Sat by Pulse Oximetry: 100 (RA) Pulse Ox Interpretation: Normal Medical Decision Making Medical Decision Makin:47 Initial Plan: --ABG --EKG --BNP --CMP --Troponin --CBC --CXR --Dextrose 5% 500 ml IV ---- Scribe Attestation: Documented by Evelyn Grossman, acting as a scribe for Rosa Braswell MD Provider Scribe Attestation: All medical record entries made by the Scribe were at my direction and personally dictated by me. I have reviewed the chart and agree that the record accurately reflects my personal performance of the history, physical exam, medical decision making, and the department course for this patient. I have also personally directed, reviewed, and agree with the discharge instructions and disposition. Although patient is feeling better, she has co morbid conditions that will make unsafe for discharge. Her is her only wallpaper cleaner is overwhelmed. Disposition - Clinical Impression Clinical Impression: Hypoglycemia - Patient ED Disposition Is Patient to be Admitted: Yes Doctor Will See Patient In The: Hospital - Disposition Disposition: Transfer of Care Disposition Time: 14:29 Condition: GUARDED Forms: [employer] ([place]ierra Leonean) - Pt Status Changed To: Hospital Disposition Of: Observation - POA Present On Arrival: None
[2017-12-09 11:24] LABS: ABG ALLEN TEST YES; ARTERIAL BLOOD GAS HCO3 26.4 mmol/L (21-28); ARTERIAL BLOOD GAS O2 SAT 97.9 % (95-98); ARTERIAL BLOOD GAS PCO2 51 mm/Hg (35-45); ARTERIAL BLOOD GAS PH 7.35 (7.35-7.45); ARTERIAL BLOOD GAS PO2 69 mm/Hg (80-100); ARTERIAL BLOOD GAS TCO2 29.8 mmol/L (22-28)
[2017-12-09 11:25] LABS: BASO % 0.3 % (0.0-2.0); EOS # 0.1 K/uL (0.0-0.7); EOS % 1.7 % (0.0-4.0); HEMOGLOBIN 10.3 g/dL (12.0-16.0); LYMPH # 0.8 K/uL (1.0-4.3); LYMPH % 13.1 % (20.0-40.0); MEAN CORPUSCULAR HEMOGLOBIN 29.7 pg (27.0-31.0); MEAN CORPUSCULAR HGB CONC 32.6 g/dL (33.0-37.0); MEAN PLATELET VOLUME 9.3 fl (7.2-11.7); MONO # 0.3 K/uL (0.0-0.8); MONO % 4.5 % (0.0-10.0); NEUT # 4.9 K/uL (1.8-7.0); NEUT % 80.4 % (50.0-75.0); RBC 3.48 Mil/uL (3.80-5.20); RED CELL DISTRIBUTION WIDTH 15.2 % (11.5-14.5); WHITE BLOOD COUNT 6.1 K/uL (4.8-10.8)
[2017-12-09 11:28] LABS: ALBUMIN 4.1 g/dL (3.5-5.0); ALT/SGPT 30 U/L (9-52); AST/SGOT 54 U/L (14-36); BLOOD UREA NITROGEN 35 mg/dl (7-17); CALCIUM 9.1 mg/dL (8.4-10.2); GFR NON-AFRICAN AMERICAN 49
[2017-12-09 11:39] LABS: B-TYPE NATRIURETIC PEPTIDE 890 pg/ml (0-900)
--- NOTE | 2017-12-09 12:33 | RAD ---
Date of service: 12/09/2017 PROCEDURE: CHEST RADIOGRAPH, 1 VIEW HISTORY: hypoglycemia, h/o heart disease COMPARISON: Chest radiograph dated 12/08/2017. FINDINGS: LUNGS: Stable appearance of bilateral scarring. No active pulmonary disease. PLEURA: Stable mild elevation of the right hemidiaphragm. No pneumothorax or pleural fluid seen. CARDIOVASCULAR: Atherosclerotic aortic calcifications. Cardiomediastinal silhouette stably enlarged. OSSEOUS STRUCTURES: Unchanged. VISUALIZED UPPER ABDOMEN: Normal. OTHER FINDINGS: None. IMPRESSION: No active disease.
--- NOTE | 2017-12-09 12:33 | CARD ---
APPROVED REPORT Date of service: 12/09/2017 EKG Measurement Heart [id number] <Conclusion> Sinus bradycardia Low voltage QRS Borderline ECG
[2017-12-09] MEDS ORDERED: Dextrose 50% SYRINGE Inj (50 ml) IV PRN (15:51)
[2017-12-09] MEDS ORDERED: Glucagon Recombinant 1 mg Inj IM PRN (15:51)
--- NOTE | 2017-12-09 15:56 | CP.PCM.HP ---
<Alondra Rea - Last Filed: 12/09/17 15:57> History of Present Illness - History of Present Illness History of Present Illness: 72 year old female with a history of diabetes presents to the ED via EMS due to low blood sugar levels. Patient's reports that this morning he woke up and noted her soaked and sweating and cold to touch, he checked the blood sugar and was a 39. He then called EMS because she became diaphoretic. She is on 3 different oral diabetes medications and also she uses 26 units of levemir at bedtime. He said that pt ate her usual food last night got her insulin and went to bed at usual time. Patient reports feeling better at this time, some slurred speech is noted and he said is residual from previous stroke. She denies fever, loss of appetite, cough and has no other medical complaints at this time. PMD: Dr Babb Cardiology: Dr Strickland PMH: Alzheimer's Disease, CVA, Diabetes II, HTN, CHF, HLD PSH: PEG placement and removal. FH: Unknown Allergies: oxycodone Medication: Reviewed SH: Never Smoked; No alcohol use; No illegal drug use;Live with ED course: cbc and cmp wnl CXR: negative for active disease s/p D5% 50m bolus Present on Admission - Present on Admission Any Indicators Present on Admission: No Review of Systems - Review of Systems All systems: reviewed and no additional remarkable complaints except (HPI) Past Patient History - Past Medical History & Family History Past Medical History?: Yes - Past Social History Smoking Status: Never Smoked - CARDIAC Hx Cardiac Disorders: Yes - PULMONARY Hx Pneumonia: Yes (Aspiration pnuemonia) - NEUROLOGICAL Hx Neurological Disorder: Yes - HEENT Hx HEENT Problems: No - RENAL Hx Chronic Kidney Disease: Yes - ENDOCRINE/METABOLIC Hx Endocrine Disorders: Yes Hx Diabetes Mellitus Type 2: Yes - HEMATOLOGICAL/ONCOLOGICAL Hx Anemia: Yes Hx Human Immunodeficiency Virus (HIV): No - INTEGUMENTARY Hx Dermatological Problems: Yes Hx Cellulitis: Yes Other/Comment: Hx bilateral great toe ulcers and left foot ulcer - MUSCULOSKELETAL/RHEUMATOLOGICAL Hx Musculoskeletal Disorders: Yes Hx Back Pain: Yes - GASTROINTESTINAL Hx Gastrointestinal Disorders: Yes Hx Gastroesophageal Reflux: Yes Hx Hemorrhoids: Yes Other/Comment: Hx rectal bleeding - GENITOURINARY/GYNECOLOGICAL Hx Genitourinary Disorders: Yes Hx Urinary Tract Infection: Yes - PSYCHIATRIC Hx Psychophysiologic Disorder: Yes - SURGICAL HISTORY Hx Surgeries: Yes Other/Comment: Hx PEG tube insertion and removal - ANESTHESIA Hx Anesthesia: Yes Hx Anesthesia Reactions: No Hx Malignant Hyperthermia: No Meds Allergies/Adverse Reactions: Allergies Allergy/AdvReac Type Severity Reaction Status Date / Time oxycodone Allergy RASH Verified 12/08/17 00:47 Physical Exam - Constitutional Appears: No Acute Distress - Head Exam Head Exam: NORMAL INSPECTION - Eye Exam Eye Exam: EOMI, PERRL - ENT Exam ENT Exam: Mucous Membranes Moist - Respiratory Exam Respiratory Exam: Rales (scattered in R base), NORMAL BREATHING PATTERN - Cardiovascular Exam Cardiovascular Exam: Bradycardia, REGULAR RHYTHM, +S1, +S2 - GI/Abdominal Exam GI & Abdominal Exam: Normal Bowel Sounds, Soft. absent: Distended, Tenderness - Extremities Exam Extremities exam: Positive for: pedal edema. Negative for: calf tenderness - Neurological Exam Neurological exam: Alert (oriented only by person) - Skin Skin Exam: Dry, Warm Results - Vital Signs Recent Vital Signs: Last Vital Signs Temp 96.6 F L 12/09/17 10:07 Pulse 60 12/09/17 15:35 Resp 15 12/09/17 11:25 BP 144/63 12/09/17 15:35 Pulse Ox 100 12/09/17 14:29 - Labs Result Diagrams: 12/09/17 11:00 12/09/17 11:00 Labs: Laboratory Results - last 24 hr 12/09/17 12/09/17 12/09/17 10:14 10:52 11:00 WBC RBC Hgb Hct MCV MCH MCHC RDW Plt Count MPV Neut % (Auto) Lymph % (Auto) [place] % (Auto) Eos % (Auto) Baso % (Auto) Neut # (Auto) Lymph # (Auto) [place] # (Auto) Eos # (Auto) Baso # (Auto) pCO2 51 H pO2 69 L HCO3 26.4 ABG pH 7.35 ABG Total CO2 29.8 H ABG O2 Saturation 97.9 ABG Base Excess 2.0 Boaz Test Yes ABG Potassium 4.0 A-a O2 Difference 17.0 Sodium 138.0 143 Chloride 107.0 106 Glucose 197 H Lactate 0.9 FiO2 21.0 Potassium 3.9 Carbon Dioxide 32 H Anion Gap 9 L BUN 35 H Creatinine 1.1 Est GFR ( Amer) 59 Est GFR (Non-Af Amer) 49 POC Glucose (mg/dL) 101 Random Glucose 87 Calcium 9.1 Total Bilirubin 0.3 AST 54 H D ALT 30 Alkaline Phosphatase 67 Troponin I < 0.0120 NT-Pro-B Natriuret Pep 890 Total Protein 8.3 H Albumin 4.1 Globulin 4.2 H Albumin/Globulin Ratio 1.0 Arterial Blood Potassium 4.0 12/09/17 12/09/17 12/09/17 11:00 12:06 13:23 WBC 6.1 RBC 3.48 L Hgb 10.3 L Hct 31.7 L MCV 91.0 MCH 29.7 MCHC 32.6 L RDW 15.2 H Plt Count 202 MPV 9.3 Neut % (Auto) 80.4 H Lymph % (Auto) 13.1 L [place] % (Auto) 4.5 Eos % (Auto) 1.7 Baso % (Auto) 0.3 Neut # (Auto) 4.9 Lymph # (Auto) 0.8 L [place] # (Auto) 0.3 Eos # (Auto) 0.1 Baso # (Auto) 0.0 pCO2 pO2 HCO3 ABG pH ABG Total CO2 ABG O2 Saturation ABG Base Excess Boaz Test ABG Potassium A-a O2 Difference Sodium Chloride Glucose Lactate FiO2 Potassium Carbon Dioxide Anion Gap BUN Creatinine Est GFR ( Amer) Est GFR (Non-Af Amer) POC Glucose (mg/dL) 150 H 127 H Random Glucose Calcium Total Bilirubin AST ALT Alkaline Phosphatase Troponin I NT-Pro-B Natriuret Pep Total Protein Albumin Globulin Albumin/Globulin Ratio Arterial Blood Potassium 12/09/17 15:03 WBC RBC Hgb Hct MCV MCH MCHC RDW Plt Count MPV Neut % (Auto) Lymph % (Auto) [place] % (Auto) Eos % (Auto) Baso % (Auto) Neut # (Auto) Lymph # (Auto) [place] # (Auto) Eos # (Auto) Baso # (Auto) pCO2 pO2 HCO3 ABG pH ABG Total CO2 ABG O2 Saturation ABG Base Excess Boaz Test ABG Potassium A-a O2 Difference Sodium Chloride Glucose Lactate FiO2 Potassium Carbon Dioxide Anion Gap BUN Creatinine Est GFR ( Amer) Est GFR (Non-Af Amer) POC Glucose (mg/dL) 132 H Random Glucose Calcium Total Bilirubin AST ALT Alkaline Phosphatase Troponin I NT-Pro-B Natriuret Pep Total Protein Albumin Globulin Albumin/Globulin Ratio Arterial Blood Potassium Assessment & Plan - Assessment and Plan (Free Text) Assessment: 72 yo female patient w/ Diabetes II, Alzheimer's Disease, CVA, HTN, CHF, HLD admitted due hypoglycemia. Plan: Hypoglycemia, improving - Blood sugar level 39 at home, diaphoresis - s/p D5% 50ml x1 - c/ IV D5/0.45 NS at 40ml/hr - BS 127 now - likely due to diabetic polypharmacy (4 meds) - stop home meds for now - accuchecks, insulin coverage - hypoglycemia protocol - admit to med/surg Episode of hypoxia, resolved - likely secondary to hypoglycemia - ABG: pCO2 51, pO2 69 - O2 sat 100% RA - CXR reported as normal - f/u chest CT - Pulmonology consulted, awaiting recommds - keep o2 sat above 94% Mild fluid overload - h/o CHF - scattered rales R base - watch for IV fluids, low rate - continue home meds Bradycardia - stop coreg 25mg BID - start coreg 12.5mg BID - monitor HR - Cardiology consulted Dementia - continue home meds - SW referral (family considering NH placement) DVT prophylaxis - scd - heparin q12h <Isreal Vargas - Last Filed: 12/10/17 18:04> Results - Vital Signs Recent Vital Signs: Last Vital Signs Temp 98.5 F 12/10/17 15:47 Pulse 70 12/10/17 15:47 Resp 18 12/10/17 15:47 BP 155/77 H 12/10/17 15:47 Pulse Ox 94 L 12/10/17 15:47 - Labs Result Diagrams: 12/10/17 05:30 12/10/17 05:30 Labs: Laboratory Results - last 24 hr 12/09/17 12/09/17 12/10/17 19:00 21:38 05:25 WBC RBC Hgb Hct MCV MCH MCHC RDW Plt Count MPV Neut % (Auto) Lymph % (Auto) [place] % (Auto) Eos % (Auto) Baso % (Auto) Neut # (Auto) Lymph # (Auto) [place] # (Auto) Eos # (Auto) Baso # (Auto) Sodium Potassium Chloride Carbon Dioxide Anion Gap BUN Creatinine Est GFR ( Amer) Est GFR (Non-Af Amer) POC Glucose (mg/dL) 176 H 84 Random Glucose Calcium Iron TIBC % Saturation Ferritin Urine Color Yellow Urine Clarity Slighty-cloudy Urine pH 5.0 Ur Specific [place] 1.015 Urine Protein 30 Urine Glucose (UA) Neg Urine Ketones Negative Urine Blood Negative Urine Nitrate Positive H Urine Bilirubin Negative Urine Urobilinogen 0.2-1.0 Ur Leukocyte Esterase Mod Urine RBC (Auto) 2 Urine Microscopic WBC 44 H Ur Squamous Epith Cells 1 Urine Bacteria Many H 12/10/17 12/10/17 12/10/17 05:30 05:30 08:45 WBC 5.9 RBC 3.21 L Hgb 9.6 L Hct 29.0 L MCV 90.6 MCH 29.9 MCHC 33.0 RDW 15.4 H Plt Count 210 MPV 9.4 Neut % (Auto) 71.0 Lymph % (Auto) 19.4 L [place] % (Auto) 7.7 Eos % (Auto) 1.6 Baso % (Auto) 0.3 Neut # (Auto) 4.2 Lymph # (Auto) 1.1 [place] # (Auto) 0.5 Eos # (Auto) 0.1 Baso # (Auto) 0.0 Sodium 142 Potassium 3.7 Chloride 106 Carbon Dioxide 32 H Anion Gap 8 L BUN 29 H Creatinine 1.0 Est GFR ( Amer) > 60 Est GFR (Non-Af Amer) 55 POC Glucose (mg/dL) Random Glucose 88 Calcium 8.6 Iron 31 L TIBC 294 % Saturation 10 L Ferritin Urine Color Urine Clarity Urine pH Ur Specific [place] Urine Protein Urine Glucose (UA) Urine Ketones Urine Blood Urine Nitrate Urine Bilirubin Urine Urobilinogen Ur Leukocyte Esterase Urine RBC (Auto) Urine Microscopic WBC Ur Squamous Epith Cells Urine Bacteria 12/10/17 12/10/17 12/10/17 08:45 10:40 15:17 WBC RBC Hgb Hct MCV MCH MCHC RDW Plt Count MPV Neut % (Auto) Lymph % (Auto) [place] % (Auto) Eos % (Auto) Baso % (Auto) Neut # (Auto) Lymph # (Auto) [place] # (Auto) Eos # (Auto) Baso # (Auto) Sodium Potassium Chloride Carbon Dioxide Anion Gap BUN Creatinine Est GFR ( Amer) Est GFR (Non-Af Amer) POC Glucose (mg/dL) 201 H 167 H Random Glucose Calcium Iron TIBC % Saturation Ferritin 97.3 Urine Color Urine Clarity Urine pH Ur Specific [place] Urine Protein Urine Glucose (UA) Urine Ketones Urine Blood Urine Nitrate Urine Bilirubin Urine Urobilinogen Ur Leukocyte Esterase Urine RBC (Auto) Urine Microscopic WBC Ur Squamous Epith Cells Urine Bacteria Attending/Attestation - Attestation I have personally seen and examined this patient.: Yes I have fully participated in the care of the patient.: Yes I have reviewed all pertinent clinical information: Yes Notes (Text): 72 yo female patient w/ Diabetes II, Alzheimer's Disease, CVA, HTN, CHF, HLD admitted due hypoglycemia. Plan: Hypoglycemia likely due to poly pharmacy - patient was not discharged on 4 meds on last admission - was giving her meds that were supposed to be stopped Episode of hypoxia ? cause possibly chf Mild fluid overload due to acute on chronic chf IV lasix Rule out PE Bradycardia adjust meds
[2017-12-09] MEDS: Insulin Regular 100 units/ml SC SCH ×2 (17:27→23:00)
[2017-12-09] MEDS: Dextrose 5%/0.45% NS 500 ML IV SCH (17:33)
[2017-12-09 19:12] LABS: SQUAMOUS EPITHIAL 1 /hpf (0-5); URINE BACTERIA MANY (<OCC); URINE BILIRUBIN NEGATIVE (NEGATIVE); URINE BLOOD NEGATIVE (NEGATIVE); URINE CLARITY SLIGHTY-CLOUDY (Clear); URINE COLOR YELLOW (YELLOW); URINE GLUCOSE (UA) NEG (Normal); URINE LEUKOCYTE ESTERASE MOD Leu/uL (Negative); URINE PROTEIN 30 mg/dL (NEGATIVE); URINE UROBILINOGEN 0.2-1.0 mg/dL (0.2-1.0)
[2017-12-09] MEDS ORDERED: Pneumococcal 23-Valent Vaccine IM ONE (19:17)
[2017-12-09] MEDS ORDERED: Iohexol 300 100 ML IJ ONE (19:57)
[2017-12-09] MEDS ORDERED: Sodium Chloride 0.9% 50 ML IV ONE (19:58)
[2017-12-10] MEDS: Dextrose 5%/0.45% NS 500 ML IV SCH (05:00)
[2017-12-10 06:23] LABS: BASO % 0.3 % (0.0-2.0); EOS # 0.1 K/uL (0.0-0.7); EOS % 1.6 % (0.0-4.0); HEMOGLOBIN 9.6 g/dL (12.0-16.0); LYMPH # 1.1 K/uL (1.0-4.3); LYMPH % 19.4 % (20.0-40.0); MEAN CELL VOLUME 90.6 fl (81.0-99.0); MEAN CORPUSCULAR HEMOGLOBIN 29.9 pg (27.0-31.0); MEAN PLATELET VOLUME 9.4 fl (7.2-11.7); MONO # 0.5 K/uL (0.0-0.8); MONO % 7.7 % (0.0-10.0); NEUT # 4.2 K/uL (1.8-7.0); RBC 3.21 Mil/uL (3.80-5.20); RED CELL DISTRIBUTION WIDTH 15.4 % (11.5-14.5); WHITE BLOOD COUNT 5.9 K/uL (4.8-10.8)
[2017-12-10 06:41] LABS: BLOOD UREA NITROGEN 29 mg/dl (7-17); CALCIUM 8.6 mg/dL (8.4-10.2); GFR NON-AFRICAN AMERICAN 55
[2017-12-10] MEDS: Insulin Regular 100 units/ml SC SCH ×4 (07:00→22:59)
--- NOTE | 2017-12-10 09:10 | CP.PCM.PN ---
<Alondra Rea - Last Filed: 12/10/17 13:02> Subjective - Date & Time of Evaluation Date of Evaluation: 12/10/17 Time of Evaluation: 09:07 - Subjective Subjective: Patient seen and examined this morning at bedside, eating breakfast, she reports feeling better. Denies diaphoresis, sob, palpitation, chest or abdominal pain. nausea or vomiting. No urinary symptoms. UA positive for urinary infection. Objective - Vital Signs/Intake and Output Vital Signs (last 24 hours): Temp Pulse Resp BP Pulse Ox 98.7 F 72 20 159/76 H 94 L 12/10/17 07:37 12/10/17 08:44 12/10/17 07:37 12/10/17 08:48 12/10/17 07:37 - Medications Medications: Current Medications Aspirin (Ecotrin) 81 mg PO DAILY [facility] Last Admin: 12/10/17 08:44 Dose: 81 mg Atorvastatin Calcium (Lipitor) 40 mg PO DAILY [facility] Last Admin: 12/10/17 08:49 Dose: 40 mg Carvedilol (Coreg) 12.5 mg PO Q12 [facility] Last Admin: 12/10/17 08:44 Dose: 12.5 mg Dextrose (Dextrose 50% Inj) 0 ml IV STAT PRN; Protocol PRN Reason: Hypoglycemia Protocol Dextrose (Glutose 15) 0 gm PO ONCE PRN; Protocol PRN Reason: Hypoglycemia Protocol Docusate Sodium (Colace) 100 mg PO BID PRN PRN Reason: Constipation Donepezil HCl (Aricept) 5 mg PO HS [facility] Last Admin: 12/09/17 22:16 Dose: 5 mg Enalapril Maleate (Vasotec) 5 mg PO Q12 [facility] Last Admin: 12/10/17 08:49 Dose: 5 mg Ferrous Sulfate (Feosol) 325 mg PO TID [facility] Last Admin: 12/10/17 08:45 Dose: 325 mg Furosemide (Lasix) 40 mg PO DAILY [facility] Last Admin: 12/10/17 08:48 Dose: 40 mg Glucagon (Glucagen Diagnostic Kit) 0 mg IM STAT PRN; Protocol PRN Reason: Hypoglycemia Protocol Heparin Sodium (Porcine) (Heparin) 5,000 units SC Q12 [facility]; Protocol Last Admin: 12/10/17 08:45 Dose: 5,000 units Dextrose/Sodium Chloride (Dextrose 5%/0.45% Ns 1000 Ml) 500 mls @ 40 mls/hr IV .[id number] [facility] Stop: 12/10/17 16:35 Last Admin: 12/10/17 05:00 Dose: Not Given Ciprofloxacin (Cipro 400mg/200ml Dsw) 400 mg in 200 mls @ 200 mls/hr IVPB Q12 [facility]; Protocol Insulin Human Regular (Humulin R) 0 units SC ACCU-CHECK [facility]; Protocol Last Admin: 12/10/17 07:00 Dose: Not Given Sertraline HCl (Zoloft) 25 mg PO HS [facility] Last Admin: 12/09/17 22:13 Dose: 25 mg Spironolactone (Aldactone) 12.5 mg PO DAILY [facility] Last Admin: 12/10/17 08:42 Dose: 12.5 mg - Labs Labs: 12/10/17 05:30 12/10/17 05:30 - Constitutional Appears: No Acute Distress - Head Exam Head Exam: NORMAL INSPECTION - Respiratory Exam Respiratory Exam: NORMAL BREATHING PATTERN. absent: Decreased Breath Sounds, Rales, Wheezes - Cardiovascular Exam Cardiovascular Exam: REGULAR RHYTHM, +S1, +S2 - GI/Abdominal Exam GI & Abdominal Exam: Soft, Normal Bowel Sounds. absent: Distended, Tenderness - Extremities Exam Extremities Exam: Pedal Edema. absent: Calf Tenderness - Back Exam Back Exam: absent: CVA tenderness (L), CVA tenderness (R) - Neurological Exam Neurological Exam: Alert, Awake (oriented only to person and place) - Psychiatric Exam Psychiatric exam: Normal Affect - Skin Skin Exam: Dry, Warm Assessment and Plan - Assessment and Plan (Free Text) Assessment: 72 yo female patient w/ Diabetes II, Alzheimer's Disease, CVA, HTN, CHF, HLD admitted due hypoglycemia. Plan: Hypoglycemia, resolved - s/p D5% 50ml x1 - d/c IV D5/0.45 NS at 40ml/hr - likely due to diabetic polypharmacy (4 meds) - stop home meds for now - accuchecks, insulin coverage - hypoglycemia protocol Episode of hypoxia, improved - likely secondary to hypoglycemia vs pneumonia - asymptomatic today - ABG: pCO2 51, pO2 69 - O2 sat 100% RA - CXR reported as normal - chest CT: bilateral sweeney lobar areas of subsegmental ateletactasis and/or infiltrate. - will start Levaquin 750mg IV daily - Pulmonology Dr Vicente recommends appreciated UTI - positive UA, asymptomatic - on Cipro now q12 for today, will start levaquin tomorrow - f/u urine cx Anemia - likely due to chronic disease - H/H 9.6/29.0 - f/u iron studies and cbc h/o CKD stage I, stable - Bun/Cr 29/1.0 - monitor Bradycardia, resolved - c/w coreg 12.5mg BID - monitor HR - Cardiology consulted Dementia - continue home meds - referral (family considering NH placement) DVT prophylaxis - scd - heparin q12h <Isreal Vargas - Last Filed: 12/10/17 18:01> Objective - Vital Signs/Intake and Output Vital Signs (last 24 hours): Temp Pulse Resp BP Pulse Ox 98.5 F 70 18 155/77 H 94 L 12/10/17 15:47 12/10/17 15:47 12/10/17 15:47 12/10/17 15:47 12/10/17 15:47 - Medications Medications: Current Medications Aspirin (Ecotrin) 81 mg PO DAILY [facility] Last Admin: 12/10/17 08:44 Dose: 81 mg Atorvastatin Calcium (Lipitor) 40 mg PO DAILY [facility] Last Admin: 12/10/17 08:49 Dose: 40 mg Carvedilol (Coreg) 12.5 mg PO Q12 [facility] Last Admin: 12/10/17 08:44 Dose: 12.5 mg Dextrose (Dextrose 50% Inj) 0 ml IV STAT PRN; Protocol PRN Reason: Hypoglycemia Protocol Dextrose (Glutose 15) 0 gm PO ONCE PRN; Protocol PRN Reason: Hypoglycemia Protocol Docusate Sodium (Colace) 100 mg PO BID PRN PRN Reason: Constipation Donepezil HCl (Aricept) 5 mg PO HS [facility] Last Admin: 12/09/17 22:16 Dose: 5 mg Enalapril Maleate (Vasotec) 5 mg PO Q12 [facility] Last Admin: 12/10/17 08:49 Dose: 5 mg Ferrous Sulfate (Feosol) 325 mg PO TID [facility] Last Admin: 12/10/17 16:53 Dose: 325 mg Furosemide (Lasix) 40 mg PO DAILY [facility] Last Admin: 12/10/17 08:48 Dose: 40 mg Glucagon (Glucagen Diagnostic Kit) 0 mg IM STAT PRN; Protocol PRN Reason: Hypoglycemia Protocol Heparin Sodium (Porcine) (Heparin) 5,000 units SC Q12 [facility]; Protocol Last Admin: 12/10/17 08:45 Dose: 5,000 units Ciprofloxacin (Cipro 400mg/200ml Dsw) 400 mg in 200 mls @ 200 mls/hr IVPB Q12 [facility]; Protocol Last Admin: 12/10/17 09:44 Dose: 200 mls/hr Levofloxacin/Dextrose (Levaquin 750mg) 750 mg in 150 mls @ 100 mls/hr IVPB DAILY [facility] Insulin Human Regular (Humulin R) 0 units SC ACCU-CHECK [facility]; Protocol Last Admin: 12/10/17 16:54 Dose: 1 u Sertraline HCl (Zoloft) 25 mg PO HS [facility] Last Admin: 12/09/17 22:13 Dose: 25 mg Spironolactone (Aldactone) 12.5 mg PO DAILY [facility] Last Admin: 12/10/17 08:42 Dose: 12.5 mg - Labs Labs: 12/10/17 05:30 12/10/17 05:30 Attending/Attestation - Attestation I have personally seen and examined this patient.: Yes I have fully participated in the care of the patient.: Yes I have reviewed all pertinent clinical information, including history, physical exam and plan: Yes Notes (Text): UTI Pneumonia Mild acute CHF Hypoxia from chf pulm congestion Ruled out PE
[2017-12-10] MEDS: Ciprofloxacin 400mg/200ml D5W 400 MG/200 ML BAG IVPB SCH ×2 (09:44→21:00)
--- NOTE | 2017-12-10 10:04 | CP.PCM.CON ---
History of Present Illness - History of Present Illness History of Present Illness: 72 YR OLD FEMALE REFERRED FOR PULMONARY EVALUATION.SHE WAS ADMITTED BECAUSE OF HYPOGLYCEMIA AND HAD MILD HYPOXEMIA ON ABGS.SHE DENIES CHEST PAINS/S9OB.NO COUGH OR FEVER.FEELS BETTERV SINCE ADMISSION. HX OF DIABETES,HTN,MILD DEMENTIA,CVA AND CHF. NON-SMOKER/ETOH OR DRUG USE LIVES AT HOME WITH Past Patient History - Past Medical History & Family History Past Medical History?: Yes - Past Social History Smoking Status: Never Smoked - CARDIAC Hx Cardiac Disorders: Yes Hx Congestive Heart Failure: Yes Hx Hypertension: Yes - PULMONARY Hx Pneumonia: Yes (Aspiration pnuemonia) - NEUROLOGICAL Hx Neurological Disorder: Yes Hx Alzheimer's Disease: Yes HX Cerebrovascular Accident: Yes Hx Dementia: Yes - HEENT Hx HEENT Problems: No - RENAL Hx Chronic Kidney Disease: Yes - ENDOCRINE/METABOLIC Hx Endocrine Disorders: Yes Hx Diabetes Mellitus Type 2: Yes - HEMATOLOGICAL/ONCOLOGICAL Hx Anemia: Yes Hx Human Immunodeficiency Virus (HIV): No - INTEGUMENTARY Hx Dermatological Problems: Yes Hx Cellulitis: Yes Other/Comment: Hx bilateral great toe ulcers and left foot ulcer - MUSCULOSKELETAL/RHEUMATOLOGICAL Hx Musculoskeletal Disorders: Yes Hx Arthritis: Yes Hx Back Pain: Yes Hx Falls: No - GASTROINTESTINAL Hx Gastrointestinal Disorders: Yes Hx Gastroesophageal Reflux: Yes Hx Hemorrhoids: Yes Other/Comment: Hx rectal bleeding - GENITOURINARY/GYNECOLOGICAL Hx Genitourinary Disorders: Yes Hx Urinary Tract Infection: Yes - PSYCHIATRIC Hx Psychophysiologic Disorder: Yes Hx Substance Use: No - SURGICAL HISTORY Hx Surgeries: Yes Other/Comment: Hx PEG tube insertion and removal - ANESTHESIA Hx Anesthesia: Yes Hx Anesthesia Reactions: No Hx Malignant Hyperthermia: No Meds Allergies/Adverse Reactions: Allergies Allergy/AdvReac Type Severity Reaction Status Date / Time oxycodone Allergy RASH Verified 12/08/17 00:47 - Medications Medications: Current Medications Aspirin (Ecotrin) 81 mg PO DAILY [facility] Last Admin: 12/10/17 08:44 Dose: 81 mg Atorvastatin Calcium (Lipitor) 40 mg PO DAILY [facility] Last Admin: 12/10/17 08:49 Dose: 40 mg Carvedilol (Coreg) 12.5 mg PO Q12 [facility] Last Admin: 12/10/17 08:44 Dose: 12.5 mg Dextrose (Dextrose 50% Inj) 0 ml IV STAT PRN; Protocol PRN Reason: Hypoglycemia Protocol Dextrose (Glutose 15) 0 gm PO ONCE PRN; Protocol PRN Reason: Hypoglycemia Protocol Docusate Sodium (Colace) 100 mg PO BID PRN PRN Reason: Constipation Donepezil HCl (Aricept) 5 mg PO [facility] Last Admin: 12/09/17 22:16 Dose: 5 mg Enalapril Maleate (Vasotec) 5 mg PO Q12 [facility] Last Admin: 12/10/17 08:49 Dose: 5 mg Ferrous Sulfate (Feosol) 325 mg PO TID [facility] Last Admin: 12/10/17 08:45 Dose: 325 mg Furosemide (Lasix) 40 mg PO DAILY [facility] Last Admin: 12/10/17 08:48 Dose: 40 mg Glucagon (Glucagen Diagnostic Kit) 0 mg IM STAT PRN; Protocol PRN Reason: Hypoglycemia Protocol Heparin Sodium (Porcine) (Heparin) 5,000 units SC Q12 [facility]; Protocol Last Admin: 12/10/17 08:45 Dose: 5,000 units Dextrose/Sodium Chloride (Dextrose 5%/0.45% Ns 1000 Ml) 500 mls @ 40 mls/hr IV .[id number] [facility] Stop: 12/10/17 16:35 Last Admin: 12/10/17 05:00 Dose: Not Given Ciprofloxacin (Cipro 400mg/200ml Dsw) 400 mg in 200 mls @ 200 mls/hr IVPB Q12 [facility]; Protocol Last Admin: 12/10/17 09:44 Dose: 200 mls/hr Insulin Human Regular (Humulin R) 0 units SC ACCU-CHECK [facility]; Protocol Last Admin: 12/10/17 07:00 Dose: Not Given Sertraline HCl (Zoloft) 25 mg PO [facility] Last Admin: 12/09/17 22:13 Dose: 25 mg Spironolactone (Aldactone) 12.5 mg PO DAILY [facility] Last Admin: 12/10/17 08:42 Dose: 12.5 mg Physical Exam - Constitutional Appears: No Acute Distress - Head Exam Head Exam: ATRAUMATIC, NORMAL INSPECTION, NORMOCEPHALIC - Eye Exam Eye Exam: EOMI, Normal appearance, PERRL Pupil Exam: NORMAL ACCOMODATION, PERRL - ENT Exam ENT Exam: Mucous Membranes Moist, Normal Exam - Neck Exam Neck exam: Positive for: Normal Inspection - Respiratory Exam Respiratory Exam: Clear to Auscultation Bilateral, NORMAL BREATHING PATTERN - Cardiovascular Exam Cardiovascular Exam: REGULAR RHYTHM - GI/Abdominal Exam GI & Abdominal Exam: Normal Bowel Sounds, Soft. absent: Tenderness - Rectal Exam Rectal Exam: NORMAL INSPECTION - Extremities Exam Extremities exam: Positive for: normal inspection - Back Exam Back exam: NORMAL INSPECTION - Neurological Exam Neurological exam: Alert, CN II-XII Intact, Normal Gait, Oriented x3, Reflexes Normal - Psychiatric Exam Psychiatric exam: Normal Affect, Normal Mood - Skin Skin Exam: Dry, Intact, Normal Color, Warm - Additional Findings Additional findings: CXR-NO ACTIVE DISEASE CT SCAN OF CHES--RESULTS PENDING Results - Vital Signs Recent Vital Signs: Last Vital Signs Temp 98.7 F 12/10/17 07:37 Pulse 72 12/10/17 08:44 Resp 20 12/10/17 07:37 BP 159/76 H 12/10/17 08:48 Pulse Ox 94 L 12/10/17 07:37 - Labs Result Diagrams: 12/10/17 05:30 12/10/17 05:30 Labs: Laboratory Results - last 24 hr 12/09/17 12/09/17 12/09/17 10:14 10:52 11:00 WBC RBC Hgb Hct MCV MCH MCHC RDW Plt Count MPV Neut % (Auto) Lymph % (Auto) Sutter % (Auto) Eos % (Auto) Baso % (Auto) Neut # (Auto) Lymph # (Auto) Sutter # (Auto) Eos # (Auto) Baso # (Auto) pCO2 51 H pO2 69 L HCO3 26.4 ABG pH 7.35 ABG Total CO2 29.8 H ABG O2 Saturation 97.9 ABG Base Excess 2.0 Boaz Test Yes ABG Potassium 4.0 A-a O2 Difference 17.0 Sodium 138.0 143 Chloride 107.0 106 Glucose 197 H Lactate 0.9 FiO2 21.0 Potassium 3.9 Carbon Dioxide 32 H Anion Gap 9 L BUN 35 H Creatinine 1.1 Est GFR ( Amer) 59 Est GFR (Non-Af Amer) 49 POC Glucose (mg/dL) 101 Random Glucose 87 Calcium 9.1 Total Bilirubin 0.3 AST 54 H D ALT 30 Alkaline Phosphatase 67 Troponin I < 0.0120 NT-Pro-B Natriuret Pep 890 Total Protein 8.3 H Albumin 4.1 Globulin 4.2 H Albumin/Globulin Ratio 1.0 TSH 3rd Generation Arterial Blood Potassium 4.0 Urine Color Urine Clarity Urine pH Ur Specific Beaman Urine Protein Urine Glucose (UA) Urine Ketones Urine Blood Urine Nitrate Urine Bilirubin Urine Urobilinogen Ur Leukocyte Esterase Urine RBC (Auto) Urine Microscopic WBC Ur Squamous Epith Cells Urine Bacteria 12/09/17 12/09/17 12/09/17 11:00 12:06 13:23 WBC 6.1 RBC 3.48 L Hgb 10.3 L Hct 31.7 L MCV 91.0 MCH 29.7 MCHC 32.6 L RDW 15.2 H Plt Count 202 MPV 9.3 Neut % (Auto) 80.4 H Lymph % (Auto) 13.1 L Sutter % (Auto) 4.5 Eos % (Auto) 1.7 Baso % (Auto) 0.3 Neut # (Auto) 4.9 Lymph # (Auto) 0.8 L Sutter # (Auto) 0.3 Eos # (Auto) 0.1 Baso # (Auto) 0.0 pCO2 pO2 HCO3 ABG pH ABG Total CO2 ABG O2 Saturation ABG Base Excess Boaz Test ABG Potassium A-a O2 Difference Sodium Chloride Glucose Lactate FiO2 Potassium Carbon Dioxide Anion Gap BUN Creatinine Est GFR ( Amer) Est GFR (Non-Af Amer) POC Glucose (mg/dL) 150 H 127 H Random Glucose Calcium Total Bilirubin AST ALT Alkaline Phosphatase Troponin I NT-Pro-B Natriuret Pep Total Protein Albumin Globulin Albumin/Globulin Ratio TSH 3rd Generation Arterial Blood Potassium Urine Color Urine Clarity Urine pH Ur Specific Beaman Urine Protein Urine Glucose (UA) Urine Ketones Urine Blood Urine Nitrate Urine Bilirubin Urine Urobilinogen Ur Leukocyte Esterase Urine RBC (Auto) Urine Microscopic WBC Ur Squamous Epith Cells Urine Bacteria 12/09/17 12/09/17 12/09/17 15:03 16:00 16:40 WBC RBC Hgb Hct MCV MCH MCHC RDW Plt Count MPV Neut % (Auto) Lymph % (Auto) Sutter % (Auto) Eos % (Auto) Baso % (Auto) Neut # (Auto) Lymph # (Auto) Sutter # (Auto) Eos # (Auto) Baso # (Auto) pCO2 pO2 HCO3 ABG pH ABG Total CO2 ABG O2 Saturation ABG Base Excess Boaz Test ABG Potassium A-a O2 Difference Sodium Chloride Glucose Lactate FiO2 Potassium Carbon Dioxide Anion Gap BUN Creatinine Est GFR ( Amer) Est GFR (Non-Af Amer) POC Glucose (mg/dL) 132 H 169 H Random Glucose Calcium Total Bilirubin AST ALT Alkaline Phosphatase Troponin I NT-Pro-B Natriuret Pep Total Protein Albumin Globulin Albumin/Globulin Ratio TSH 3rd Generation 1.07 Arterial Blood Potassium Urine Color Urine Clarity Urine pH Ur Specific Beaman Urine Protein Urine Glucose (UA) Urine Ketones Urine Blood Urine Nitrate Urine Bilirubin Urine Urobilinogen Ur Leukocyte Esterase Urine RBC (Auto) Urine Microscopic WBC Ur Squamous Epith Cells Urine Bacteria 12/09/17 12/09/17 12/10/17 19:00 21:38 05:25 WBC RBC Hgb Hct MCV MCH MCHC RDW Plt Count MPV Neut % (Auto) Lymph % (Auto) Sutter % (Auto) Eos % (Auto) Baso % (Auto) Neut # (Auto) Lymph # (Auto) Sutter # (Auto) Eos # (Auto) Baso # (Auto) pCO2 pO2 HCO3 ABG pH ABG Total CO2 ABG O2 Saturation ABG Base Excess Boaz Test ABG Potassium A-a O2 Difference Sodium Chloride Glucose Lactate FiO2 Potassium Carbon Dioxide Anion Gap BUN Creatinine Est GFR ( Amer) Est GFR (Non-Af Amer) POC Glucose (mg/dL) 176 H 84 Random Glucose Calcium Total Bilirubin AST ALT Alkaline Phosphatase Troponin I NT-Pro-B Natriuret Pep Total Protein Albumin Globulin Albumin/Globulin Ratio TSH 3rd Generation Arterial Blood Potassium Urine Color Yellow Urine Clarity Slighty-cloudy Urine pH 5.0 Ur Specific Beaman 1.015 Urine Protein 30 Urine Glucose (UA) Neg Urine Ketones Negative Urine Blood Negative Urine Nitrate Positive H Urine Bilirubin Negative Urine Urobilinogen 0.2-1.0 Ur Leukocyte Esterase Mod Urine RBC (Auto) 2 Urine Microscopic WBC 44 H Ur Squamous Epith Cells 1 Urine Bacteria Many H 12/10/17 12/10/17 05:30 05:30 WBC 5.9 RBC 3.21 L Hgb 9.6 L Hct 29.0 L MCV 90.6 MCH 29.9 MCHC 33.0 RDW 15.4 H Plt Count 210 MPV 9.4 Neut % (Auto) 71.0 Lymph % (Auto) 19.4 L Sutter % (Auto) 7.7 Eos % (Auto) 1.6 Baso % (Auto) 0.3 Neut # (Auto) 4.2 Lymph # (Auto) 1.1 Sutter # (Auto) 0.5 Eos # (Auto) 0.1 Baso # (Auto) 0.0 pCO2 pO2 HCO3 ABG pH ABG Total CO2 ABG O2 Saturation ABG Base Excess Boaz Test ABG Potassium A-a O2 Difference Sodium 142 Chloride 106 Glucose Lactate FiO2 Potassium 3.7 Carbon Dioxide 32 H Anion Gap 8 L BUN 29 H Creatinine 1.0 Est GFR ( Amer) > 60 Est GFR (Non-Af Amer) 55 POC Glucose (mg/dL) Random Glucose 88 Calcium 8.6 Total Bilirubin AST ALT Alkaline Phosphatase Troponin I NT-Pro-B Natriuret Pep Total Protein Albumin Globulin Albumin/Globulin Ratio TSH 3rd Generation Arterial Blood Potassium Urine Color Urine Clarity Urine pH Ur Specific Beaman Urine Protein Urine Glucose (UA) Urine Ketones Urine Blood Urine Nitrate Urine Bilirubin Urine Urobilinogen Ur Leukocyte Esterase Urine RBC (Auto) Urine Microscopic WBC Ur Squamous Epith Cells Urine Bacteria Assessment & Plan - Assessment and Plan (Free Text) Assessment: HYPOGLYCEMIA-RESOLVED HYPOXEMIA--PROBABLY DUE TO MILD CHF AND PLEURAL REACTION---CLINICALLY IMPROVED[PT IS PRESENTLY ASSYMPTOMATIC] Plan: MONITOR CLINICALLY REPEAT ABGS WILL PROBABLY NEED NO CLINICAL INTERVENTION UNLESS CT SCAN SHOWS PATHOLOGY WILL FOLLOW - Date & Time Date: 12/10/17 Time: 10:08
[2017-12-10 10:19] LABS: IRON 31 ug/dL (37-170)
[2017-12-10 10:28] LABS: % IRON SATURATION 10 % (20-55); TOTAL IRON BINDING CAPACITY 294 ug/dL (250-450)
--- NOTE | 2017-12-10 12:12 | CT ---
Date of service: 12/09/2017 PROCEDURE: CT Chest with contrast HISTORY: sob COMPARISON: None available. TECHNIQUE: Contiguous axial images were obtained through the chest with intravenous contrast enhancement. Sagittal and coronal reconstructions were performed. IV contrast: 95 mL Omnipaque 300 Radiation dose (DLP): 521.2 mGy-cm. This CT exam was performed using one or more of the following dose reduction techniques: Automated exposure control, adjustment of the mA and/or kV according to patient size, and/or use of iterative reconstruction technique. FINDINGS: LUNGS: Sweeney lobar subsegmental atelectasis and/or infiltrate. Clear lungs. Visualized airway clear. MEDIASTINUM: Unremarkable thoracic aorta. Atherosclerotic aortic calcifications. No aneurysm or dissection. Cardiomegaly. Main pulmonary artery unremarkable. No vascular congestion. No lymphadenopathy. PLEURA: Elevation of the right hemidiaphragm. No pleural fluid. No pneumothorax. BONES: No fracture. Degenerative changes. No destructive lesion. UPPER ABDOMEN: Grossly unremarkable. OTHER FINDINGS: 7 mm low-density right thyroid nodule. IMPRESSION: Bilateral sweeney lobar areas of subsegmental atelectasis and/or infiltrate. 7 mm low-density thyroid nodule. Dedicated thyroid ultrasound can be obtained for further evaluation on a nonemergent basis.
[2017-12-10] MEDS ORDERED: Ciprofloxacin 400mg/200ml D5W 400 MG/200 ML BAG IVPB ONE (21:45)
[2017-12-11 05:05] LABS: ABG ALLEN TEST YES; ARTERIAL BLOOD GAS HCO3 30.6 mmol/L (21-28); ARTERIAL BLOOD GAS HEMOGLOBIN 10.6 g/dL (11.7-17.4); ARTERIAL BLOOD GAS O2 CAPACITY 14.3 mL/dL (16-24); ARTERIAL BLOOD GAS O2 CONTENT 12.8 ML/dL (15-23); ARTERIAL BLOOD GAS O2 SAT 89.5 % (95-98); ARTERIAL BLOOD GAS PCO2 51 mm/Hg (35-45); ARTERIAL BLOOD GAS PH 7.42 (7.35-7.45); ARTERIAL BLOOD GAS PO2 51 mm/Hg (80-100); ARTERIAL BLOOD GAS TCO2 34.7 mmol/L (22-28)
[2017-12-11] MEDS: Insulin Regular 100 units/ml SC SCH ×3 (06:38→17:05)
[2017-12-11 07:27] LABS: ALBUMIN 3.6 g/dL (3.5-5.0); ALT/SGPT 31 U/L (9-52); AST/SGOT 29 U/L (14-36); BLOOD UREA NITROGEN 28 mg/dl (7-17); CALCIUM 8.2 mg/dL (8.4-10.2); GFR NON-AFRICAN AMERICAN 55
[2017-12-11] MEDS: levoFLOXacin 750 mg in D5W 750 MG/150 ML BAG IVPB SCH (08:39)
--- NOTE | 2017-12-11 08:50 | CP.PCM.PN ---
Addendum entered and electronically signed by Andria Dockery MD 12/11/17 13:39: Patient's son and daughter are interested in a fci for the patient. Decision has not yet been made. Son: Wilmar: [phone] Daughter: Nafisa: [phone]. Original Note: <Andria Dockery - Last Filed: 12/11/17 10:48> Subjective - Date & Time of Evaluation Date of Evaluation: 12/11/17 Time of Evaluation: 09:00 - Subjective Subjective: Patient seen and examined at bedside. She is in no acute distress and is alert and Oriented x2. She reports feeling well and has no active complaints at this time. She denies chest pain, shortness of breath, calf pain, abdominal pain, nausea, vomiting, dysuria, frequency and urgency. Objective - Vital Signs/Intake and Output Vital Signs (last 24 hours): Temp Pulse Resp BP Pulse Ox 98.2 F 68 20 153/71 H 92 L 12/11/17 08:41 12/11/17 08:41 12/11/17 08:41 12/11/17 08:41 12/11/17 08:41 - Medications Medications: Current Medications Aspirin (Ecotrin) 81 mg PO DAILY [facility] Last Admin: 12/10/17 08:44 Dose: 81 mg Atorvastatin Calcium (Lipitor) 40 mg PO DAILY [facility] Last Admin: 12/10/17 08:49 Dose: 40 mg Carvedilol (Coreg) 12.5 mg PO Q12 [facility] Last Admin: 12/10/17 20:49 Dose: 12.5 mg Dextrose (Dextrose 50% Inj) 0 ml IV STAT PRN; Protocol PRN Reason: Hypoglycemia Protocol Dextrose (Glutose 15) 0 gm PO ONCE PRN; Protocol PRN Reason: Hypoglycemia Protocol Docusate Sodium (Colace) 100 mg PO BID PRN PRN Reason: Constipation Donepezil HCl (Aricept) 5 mg PO HS [facility] Last Admin: 12/10/17 21:01 Dose: 5 mg Enalapril Maleate (Vasotec) 5 mg PO Q12 [facility] Last Admin: 12/10/17 20:56 Dose: 5 mg Ferrous Sulfate (Feosol) 325 mg PO TID [facility] Last Admin: 12/10/17 16:53 Dose: 325 mg Furosemide (Lasix) 40 mg PO DAILY [facility] Last Admin: 12/10/17 08:48 Dose: 40 mg Glucagon (Glucagen Diagnostic Kit) 0 mg IM STAT PRN; Protocol PRN Reason: Hypoglycemia Protocol Heparin Sodium (Porcine) (Heparin) 5,000 units SC Q12 [facility]; Protocol Last Admin: 12/10/17 20:55 Dose: 5,000 units Levofloxacin/Dextrose (Levaquin 750mg) 750 mg in 150 mls @ 100 mls/hr IVPB DAILY [facility] Insulin Human Regular (Humulin R) 0 units SC ACCU-CHECK [facility]; Protocol Last Admin: 12/11/17 06:38 Dose: Not Given Sertraline HCl (Zoloft) 25 mg PO HS [facility] Last Admin: 12/10/17 21:01 Dose: 25 mg Spironolactone (Aldactone) 12.5 mg PO DAILY [facility] Last Admin: 12/10/17 08:42 Dose: 12.5 mg - Labs Labs: 12/10/17 05:30 12/11/17 05:30 - Constitutional Appears: Well, Non-toxic, No Acute Distress - Eye Exam Eye Exam: Normal appearance - ENT Exam ENT Exam: Mucous Membranes Moist - Respiratory Exam Respiratory Exam: Clear to Ausculation Bilateral, NORMAL BREATHING PATTERN. absent: Decreased Breath Sounds, Prolonged Expiratory Phase, Rales, Rhonchi, Wheezes, Respiratory Distress - Cardiovascular Exam Cardiovascular Exam: REGULAR RHYTHM, RRR, +S1, +S2. absent: Clicks, JVD, Rubs, +S4 - GI/Abdominal Exam GI & Abdominal Exam: Soft, Normal Bowel Sounds. absent: Distended, Firm, Guarding, Tenderness, Diminished Bowel Sounds, Mass - Extremities Exam Extremities Exam: Normal Capillary Refill, Normal Inspection. absent: Calf Tenderness, Joint Swelling, Pedal Edema, Tenderness - Neurological Exam Neurological Exam: Alert, Awake (Oriented x2. ) - Psychiatric Exam Psychiatric exam: Normal Affect - Skin Skin Exam: Dry, Intact, Normal Color, Warm Assessment and Plan (1) Hypoglycemia Status: Acute (2) UTI (urinary tract infection) Status: Acute (3) Hypoxia Status: Acute (4) Anemia Status: Acute (5) CKD stage 1 due to type 2 diabetes mellitus Status: Acute (6) Bradycardia Status: Acute (7) Dementia Status: Acute (8) DVT prophylaxis Status: Acute - Assessment and Plan (Free Text) Assessment: 72 yo female patient w/ Diabetes II, Alzheimer's Disease, CVA, HTN, CHF, HLD admitted due hypoglycemia. Plan: 1. Hypoglycemia, resolved - d/c IV D5/0.45 NS at 40ml/hr - likely due to diabetic polypharmacy (4 meds) - stop home meds for now - accuchecks, insulin coverage - hypoglycemia protocol 2. Episode of hypoxia, improved - likely secondary to hypoglycemia vs pneumonia - ABG: pCO2 51, pO2 69 - O2 sat 100% RA - CXR reported as normal - chest CT: bilateral sweeney lobar areas of subsegmental ateletactasis and/or infiltrate. - Continue Levaquin 750mg IV daily- day 1 - Pulmonology Dr Vicente recommends appreciated: hypoxemia possibly secondary to mild CHF and pleural reacion. Patient clinically improved. 3. UTI - positive UA, asymptomatic - Continue levaquin- day 1. S/p Cipro 400mg Q12H- one dose given. - Urine cx- No growth 4. Anemia - likely due to chronic disease - H/H 9.6/29.0 - ferritin: 97.3 ; TIBC: 294 ; IRon: 31 ; % saturation: 10 - Continue Ferrous sulfate 325mg po TID. Continue colace 100 po BID prn. 5. h/o CKD stage I, stable - Bun/Cr 28/1.0 - monitor 6. Bradycardia, resolved - c/w coreg 12.5mg BID - monitor HR - Cardiology consulted 7. Dementia - continue home meds - referral (family considering NH placement) 8. DVT prophylaxis - scd - heparin q12h <Katherine Frances - Last Filed: 12/11/17 17:42> Objective - Vital Signs/Intake and Output Vital Signs (last 24 hours): Temp Pulse Resp BP Pulse Ox 98 F 74 20 160/77 H 95 12/11/17 17:00 12/11/17 16:13 12/11/17 16:13 12/11/17 17:00 12/11/17 16:13 - Medications Medications: Current Medications Aspirin (Ecotrin) 81 mg PO DAILY [facility] Last Admin: 12/11/17 08:36 Dose: 81 mg Atorvastatin Calcium (Lipitor) 40 mg PO DAILY [facility] Last Admin: 12/11/17 08:41 Dose: 40 mg Carvedilol (Coreg) 12.5 mg PO Q12 [facility] Last Admin: 12/11/17 08:34 Dose: 12.5 mg Dextrose (Dextrose 50% Inj) 0 ml IV STAT PRN; Protocol PRN Reason: Hypoglycemia Protocol Dextrose (Glutose 15) 0 gm PO ONCE PRN; Protocol PRN Reason: Hypoglycemia Protocol Docusate Sodium (Colace) 100 mg PO BID PRN PRN Reason: Constipation Donepezil HCl (Aricept) 5 mg PO HS [facility] Last Admin: 12/10/17 21:01 Dose: 5 mg Enalapril Maleate (Vasotec) 5 mg PO Q12 [facility] Last Admin: 12/11/17 08:42 Dose: 5 mg Ferrous Sulfate (Feosol) 325 mg PO TID [facility] Last Admin: 12/11/17 16:59 Dose: 325 mg Furosemide (Lasix) 40 mg PO DAILY [facility] Last Admin: 12/11/17 08:39 Dose: 40 mg Glucagon (Glucagen Diagnostic Kit) 0 mg IM STAT PRN; Protocol PRN Reason: Hypoglycemia Protocol Heparin Sodium (Porcine) (Heparin) 5,000 units SC Q12 [facility]; Protocol Last Admin: 12/11/17 08:37 Dose: 5,000 units Levofloxacin/Dextrose (Levaquin 750mg) 750 mg in 150 mls @ 100 mls/hr IVPB DAILY [facility] Last Admin: 12/11/17 08:39 Dose: 100 mls/hr Insulin Human Regular (Humulin R) 0 units SC ACCU-CHECK [facility]; Protocol Last Admin: 12/11/17 17:05 Dose: Not Given Sertraline HCl (Zoloft) 25 mg PO HS [facility] Last Admin: 12/10/17 21:01 Dose: 25 mg Sitagliptin Phosphate (Januvia) 50 mg PO DAILY [facility] Spironolactone (Aldactone) 12.5 mg PO DAILY [facility] Last Admin: 12/11/17 08:32 Dose: 12.5 mg - Labs Labs: 12/10/17 05:30 12/11/17 05:30 Attending/Attestation - Attestation I have personally seen and examined this patient.: Yes I have fully participated in the care of the patient.: Yes I have reviewed all pertinent clinical information, including history, physical exam and plan: Yes Notes (Text): Atelectasis with episode of Hypoxia - Pulm cnsulted - Inecntive Spirometry Deconditioning - PT consult Hypoglycemia , in DM type II , with Insulin use -d/c all meds except Januvia, will cont to monitor Surrogate Decision maker - spouse Yanick
[2017-12-11] MEDS ORDERED: levoFLOXacin 750 mg in D5W 150 ML BAG IVPB SCH (09:00)
--- NOTE | 2017-12-11 12:30 | CP.PCM.PN ---
Subjective - Date & Time of Evaluation Date of Evaluation: 12/11/17 Time of Evaluation: 12:30 - Subjective Subjective: NO COMPLAINTS OR DISTRESS CT SCAN OF CHEST RESULTS REVIEWED Objective - Vital Signs/Intake and Output Vital Signs (last 24 hours): Temp Pulse Resp BP Pulse Ox 98.2 F 68 20 153/71 H 92 L 12/11/17 08:41 12/11/17 08:41 12/11/17 08:41 12/11/17 08:41 12/11/17 08:41 - Medications Medications: Current Medications Aspirin (Ecotrin) 81 mg PO DAILY [facility] Last Admin: 12/11/17 08:36 Dose: 81 mg Atorvastatin Calcium (Lipitor) 40 mg PO DAILY [facility] Last Admin: 12/11/17 08:41 Dose: 40 mg Carvedilol (Coreg) 12.5 mg PO Q12 [facility] Last Admin: 12/11/17 08:34 Dose: 12.5 mg Dextrose (Dextrose 50% Inj) 0 ml IV STAT PRN; Protocol PRN Reason: Hypoglycemia Protocol Dextrose (Glutose 15) 0 gm PO ONCE PRN; Protocol PRN Reason: Hypoglycemia Protocol Docusate Sodium (Colace) 100 mg PO BID PRN PRN Reason: Constipation Donepezil HCl (Aricept) 5 mg PO HS [facility] Last Admin: 12/10/17 21:01 Dose: 5 mg Enalapril Maleate (Vasotec) 5 mg PO Q12 [facility] Last Admin: 12/11/17 08:42 Dose: 5 mg Ferrous Sulfate (Feosol) 325 mg PO TID [facility] Last Admin: 12/11/17 08:36 Dose: 325 mg Furosemide (Lasix) 40 mg PO DAILY [facility] Last Admin: 12/11/17 08:39 Dose: 40 mg Glucagon (Glucagen Diagnostic Kit) 0 mg IM STAT PRN; Protocol PRN Reason: Hypoglycemia Protocol Heparin Sodium (Porcine) (Heparin) 5,000 units SC Q12 [facility]; Protocol Last Admin: 12/11/17 08:37 Dose: 5,000 units Levofloxacin/Dextrose (Levaquin 750mg) 750 mg in 150 mls @ 100 mls/hr IVPB DAILY [facility] Last Admin: 12/11/17 08:39 Dose: 100 mls/hr Insulin Human Regular (Humulin R) 0 units SC ACCU-CHECK [facility]; Protocol Last Admin: 12/11/17 12:04 Dose: 2 u Sertraline HCl (Zoloft) 25 mg PO HS [facility] Last Admin: 12/10/17 21:01 Dose: 25 mg Spironolactone (Aldactone) 12.5 mg PO DAILY [facility] Last Admin: 12/11/17 08:32 Dose: 12.5 mg - Labs Labs: 12/10/17 05:30 12/11/17 05:30 - Constitutional Appears: No Acute Distress - Head Exam Head Exam: ATRAUMATIC, NORMAL INSPECTION, NORMOCEPHALIC - Eye Exam Eye Exam: EOMI, Normal appearance, PERRL Pupil Exam: NORMAL ACCOMODATION, PERRL - ENT Exam ENT Exam: Mucous Membranes Moist, Normal Exam - Neck Exam Neck Exam: Full ROM, Normal Inspection. absent: Lymphadenopathy - Respiratory Exam Respiratory Exam: Clear to Ausculation Bilateral, NORMAL BREATHING PATTERN - Cardiovascular Exam Cardiovascular Exam: REGULAR RHYTHM, +S1, +S2. absent: Murmur - GI/Abdominal Exam GI & Abdominal Exam: Soft, Normal Bowel Sounds. absent: Tenderness - Rectal Exam Rectal Exam: NORMAL INSPECTION - Extremities Exam Extremities Exam: Full ROM, Normal Capillary Refill, Normal Inspection. absent: Joint Swelling, Pedal Edema - Back Exam Back Exam: NORMAL INSPECTION - Neurological Exam Neurological Exam: Alert, Awake, CN II-XII Intact, Normal Gait, Oriented x3 - Psychiatric Exam Psychiatric exam: Normal Affect, Normal Mood - Skin Skin Exam: Dry, Intact, Normal Color, Warm Assessment and Plan - Assessment and Plan (Free Text) Assessment: ATELECTASES OF LUNG BASES Plan: CHEST PT ADVISED
[2017-12-12] MEDS: Insulin Regular 100 units/ml SC SCH ×3 (00:20→12:45)
[2017-12-12 08:08] VITALS: BP 147/60; RESP 20; TEMP 98.2
[2017-12-12] MEDS: levoFLOXacin 750 mg in D5W 750 MG/150 ML BAG IVPB SCH (08:26)
--- NOTE | 2017-12-12 08:30 | CP.PCM.PN ---
Subjective - Date & Time of Evaluation Date of Evaluation: 12/12/17 Time of Evaluation: 08:32 - Subjective Subjective: AFEBRILWE NO CHEST PAINS/SOB NO COUGH Objective - Vital Signs/Intake and Output Vital Signs (last 24 hours): Temp Pulse Resp BP Pulse Ox 98.2 F 68 20 147/60 92 L 12/12/17 08:08 12/12/17 08:08 12/12/17 08:08 12/12/17 08:08 12/12/17 08:08 - Medications Medications: Current Medications Aspirin (Ecotrin) 81 mg PO DAILY [facility] Last Admin: 12/11/17 08:36 Dose: 81 mg Atorvastatin Calcium (Lipitor) 40 mg PO DAILY [facility] Last Admin: 12/11/17 08:41 Dose: 40 mg Carvedilol (Coreg) 12.5 mg PO Q12 [facility] Last Admin: 12/11/17 21:30 Dose: 12.5 mg Dextrose (Dextrose 50% Inj) 0 ml IV STAT PRN; Protocol PRN Reason: Hypoglycemia Protocol Dextrose (Glutose 15) 0 gm PO ONCE PRN; Protocol PRN Reason: Hypoglycemia Protocol Docusate Sodium (Colace) 100 mg PO BID PRN PRN Reason: Constipation Donepezil HCl (Aricept) 5 mg PO HS [facility] Last Admin: 12/11/17 22:10 Dose: 5 mg Enalapril Maleate (Vasotec) 5 mg PO Q12 [facility] Last Admin: 12/11/17 21:30 Dose: 5 mg Ferrous Sulfate (Feosol) 325 mg PO TID [facility] Last Admin: 12/11/17 16:59 Dose: 325 mg Furosemide (Lasix) 40 mg PO DAILY [facility] Last Admin: 12/11/17 08:39 Dose: 40 mg Glucagon (Glucagen Diagnostic Kit) 0 mg IM STAT PRN; Protocol PRN Reason: Hypoglycemia Protocol Heparin Sodium (Porcine) (Heparin) 5,000 units SC Q12 [facility]; Protocol Last Admin: 12/11/17 21:30 Dose: 5,000 units Levofloxacin/Dextrose (Levaquin 750mg) 750 mg in 150 mls @ 100 mls/hr IVPB DAILY [facility] Last Admin: 12/11/17 08:39 Dose: 100 mls/hr Insulin Human Regular (Humulin R) 0 units SC ACCU-CHECK [facility]; Protocol Last Admin: 12/12/17 06:14 Dose: Not Given Sertraline HCl (Zoloft) 25 mg PO HS [facility] Last Admin: 12/11/17 22:10 Dose: 25 mg Sitagliptin Phosphate (Januvia) 50 mg PO DAILY [facility] Spironolactone (Aldactone) 12.5 mg PO DAILY [facility] Last Admin: 12/11/17 08:32 Dose: 12.5 mg - Labs Labs: 12/10/17 05:30 12/11/17 05:30 - Constitutional Appears: No Acute Distress - Head Exam Head Exam: ATRAUMATIC, NORMAL INSPECTION, NORMOCEPHALIC - Eye Exam Eye Exam: EOMI, Normal appearance, PERRL Pupil Exam: NORMAL ACCOMODATION, PERRL - ENT Exam ENT Exam: Mucous Membranes Moist, Normal Exam - Neck Exam Neck Exam: Full ROM, Normal Inspection. absent: Lymphadenopathy - Respiratory Exam Respiratory Exam: Clear to Ausculation Bilateral, NORMAL BREATHING PATTERN - Cardiovascular Exam Cardiovascular Exam: REGULAR RHYTHM, +S1, +S2. absent: Murmur - GI/Abdominal Exam GI & Abdominal Exam: Soft, Normal Bowel Sounds. absent: Tenderness - Rectal Exam Rectal Exam: NORMAL INSPECTION - Extremities Exam Extremities Exam: Full ROM, Normal Capillary Refill, Normal Inspection. absent: Joint Swelling, Pedal Edema - Back Exam Back Exam: NORMAL INSPECTION - Neurological Exam Neurological Exam: Alert, Awake, CN II-XII Intact, Normal Gait, Oriented x3 - Psychiatric Exam Psychiatric exam: Normal Affect, Normal Mood - Skin Skin Exam: Dry, Intact, Normal Color, Warm Assessment and Plan - Assessment and Plan (Free Text) Assessment: ATELECTASIS OF LUNGS CLINICALLY NO EVIDENCE OF PNEUMONIA Plan: OK TO D/C ON PO ANTIBIOTICS SERIAL OUT PT CXRS UNTIL ATELECTASIS/INFILTERATES RESOLVE NO FURTHER PULMONARY INTERVENTION FOR NOW WILL SIGN OFF CASE AND SEE AGAIN AT YOUR REQUEST
--- NOTE | 2017-12-12 11:23 | CP.PCM.CON ---
History of Present Illness - History of Present Illness History of Present Illness: 72 yo female admitted with hypoglycemia. Consulted for " CHF". PMH Severe MR, Normal LVEF, DM2, Hypertension, CVA, Dementia. BNP normal. Hemodynamically stable. Pt alert , resting comfortably. Past Patient History - Past Medical History & Family History Past Medical History?: Yes - Past Social History Smoking Status: Never Smoked - CARDIAC Hx Cardiac Disorders: Yes Hx Congestive Heart Failure: Yes Hx Hypertension: Yes - PULMONARY Hx Pneumonia: Yes (Aspiration pnuemonia) - NEUROLOGICAL Hx Neurological Disorder: Yes Hx Alzheimer's Disease: Yes HX Cerebrovascular Accident: Yes Hx Dementia: Yes - HEENT Hx HEENT Problems: No - RENAL Hx Chronic Kidney Disease: Yes - ENDOCRINE/METABOLIC Hx Endocrine Disorders: Yes Hx Diabetes Mellitus Type 2: Yes - HEMATOLOGICAL/ONCOLOGICAL Hx Anemia: Yes Hx Human Immunodeficiency Virus (HIV): No - INTEGUMENTARY Hx Dermatological Problems: Yes Hx Cellulitis: Yes Other/Comment: Hx bilateral great toe ulcers and left foot ulcer - MUSCULOSKELETAL/RHEUMATOLOGICAL Hx Musculoskeletal Disorders: Yes Hx Arthritis: Yes Hx Back Pain: Yes Hx Falls: No - GASTROINTESTINAL Hx Gastrointestinal Disorders: Yes Hx Gastroesophageal Reflux: Yes Hx Hemorrhoids: Yes Other/Comment: Hx rectal bleeding - GENITOURINARY/GYNECOLOGICAL Hx Genitourinary Disorders: Yes Hx Urinary Tract Infection: Yes - PSYCHIATRIC Hx Psychophysiologic Disorder: Yes Hx Substance Use: No - SURGICAL HISTORY Hx Surgeries: Yes Other/Comment: Hx PEG tube insertion and removal - ANESTHESIA Hx Anesthesia: Yes Hx Anesthesia Reactions: No Hx Malignant Hyperthermia: No Meds Home Medications: Home Medication List Medication Instructions Recorded Confirmed Type Carvedilol [Coreg] 12.5 mg PO Q12 #60 tab 12/11/17 Rx SITagliptin [Januvia] 50 mg PO DAILY #30 tab 12/11/17 Rx Allergies/Adverse Reactions: Allergies Allergy/AdvReac Type Severity Reaction Status Date / Time oxycodone Allergy RASH Verified 12/08/17 00:47 - Medications Medications: Current Medications Aspirin (Ecotrin) 81 mg PO DAILY [facility] Last Admin: 12/12/17 08:29 Dose: 81 mg Atorvastatin Calcium (Lipitor) 40 mg PO DAILY [facility] Last Admin: 12/12/17 08:29 Dose: 40 mg Carvedilol (Coreg) 12.5 mg PO Q12 [facility] Last Admin: 12/12/17 08:29 Dose: 12.5 mg Dextrose (Dextrose 50% Inj) 0 ml IV STAT PRN; Protocol PRN Reason: Hypoglycemia Protocol Dextrose (Glutose 15) 0 gm PO ONCE PRN; Protocol PRN Reason: Hypoglycemia Protocol Docusate Sodium (Colace) 100 mg PO BID PRN PRN Reason: Constipation Donepezil HCl (Aricept) 5 mg PO HS [facility] Last Admin: 12/11/17 22:10 Dose: 5 mg Enalapril Maleate (Vasotec) 5 mg PO Q12 [facility] Last Admin: 12/12/17 08:28 Dose: 5 mg Ferrous Sulfate (Feosol) 325 mg PO TID [facility] Last Admin: 12/12/17 08:28 Dose: 325 mg Furosemide (Lasix) 40 mg PO DAILY [facility] Last Admin: 12/12/17 08:29 Dose: 40 mg Glucagon (Glucagen Diagnostic Kit) 0 mg IM STAT PRN; Protocol PRN Reason: Hypoglycemia Protocol Heparin Sodium (Porcine) (Heparin) 5,000 units SC Q12 [facility]; Protocol Last Admin: 12/12/17 08:30 Dose: 5,000 units Levofloxacin/Dextrose (Levaquin 750mg) 750 mg in 150 mls @ 100 mls/hr IVPB DAILY [facility] Last Admin: 12/12/17 08:26 Dose: 100 mls/hr Insulin Human Regular (Humulin R) 0 units SC ACCU-CHECK [facility]; Protocol Last Admin: 12/12/17 06:14 Dose: Not Given Sertraline HCl (Zoloft) 25 mg PO [facility] Last Admin: 12/11/17 22:10 Dose: 25 mg Sitagliptin Phosphate (Januvia) 50 mg PO DAILY [facility] Last Admin: 12/12/17 08:28 Dose: 50 mg Spironolactone (Aldactone) 12.5 mg PO DAILY [facility] Last Admin: 12/12/17 08:28 Dose: 12.5 mg Physical Exam - Constitutional Appears: No Acute Distress - Neck Exam Neck exam: Positive for: Normal Inspection - Respiratory Exam Respiratory Exam: NORMAL BREATHING PATTERN - Cardiovascular Exam Cardiovascular Exam: REGULAR RHYTHM - Rectal Exam Rectal Exam: NORMAL INSPECTION - Extremities Exam Extremities exam: Positive for: normal inspection Results - Vital Signs Recent Vital Signs: Last Vital Signs Temp 98.2 F 12/12/17 08:08 Pulse 68 12/12/17 08:29 Resp 20 12/12/17 08:08 BP 147/60 12/12/17 08:29 Pulse Ox 92 L 12/12/17 08:08 - Labs Result Diagrams: 12/10/17 05:30 12/11/17 05:30 Labs: Laboratory Results - last 24 hr 12/11/17 12/11/17 12/12/17 15:40 21:21 05:37 POC Glucose (mg/dL) 121 H 148 H 118 H 12/12/17 10:32 POC Glucose (mg/dL) 259 H Assessment & Plan - Assessment and Plan (Free Text) Assessment: No clinical CHF. BNP normal. Hemodynamically stable.Hypoglycemia resolved. Stable from cardiology standpoint.
[2017-12-12 11:56] VITALS: PULSE 70; O2SAT 98
--- NOTE | 2017-12-12 13:30 | CP.PCM.DIS ---
<Annie Muhammad - Last Filed: 12/12/17 15:18> Provider - Provider Date of Admission: 12/10/17 12:19 Attending physician: Isreal Vargas MD Time Spent in preparation of Discharge (in minutes): 60 Hospital Course - Lab Results Lab Results: Micro Results 12/10/17 11:55 Urine Urine Culture - Final No Growth (<1,000 CFU/ML) Most Recent Lab Values WBC 5.9 K/uL (4.8-10.8) 12/10/17 05:30 RBC 3.21 Mil/uL (3.80-5.20) L 12/10/17 05:30 Hgb 9.6 g/dL (12.0-16.0) L 12/10/17 05:30 Hct 29.0 % (34.0-47.0) L 12/10/17 05:30 MCV 90.6 fl (81.0-99.0) 12/10/17 05:30 MCH 29.9 pg (27.0-31.0) 12/10/17 05:30 MCHC 33.0 g/dL (33.0-37.0) 12/10/17 05:30 RDW 15.4 % (11.5-14.5) H 12/10/17 05:30 Plt Count 210 K/uL (130-400) 12/10/17 05:30 MPV 9.4 fl (7.2-11.7) 12/10/17 05:30 Neut % (Auto) 71.0 % (50.0-75.0) 12/10/17 05:30 Lymph % (Auto) 19.4 % (20.0-40.0) L 12/10/17 05:30 [place] % (Auto) 7.7 % (0.0-10.0) 12/10/17 05:30 Eos % (Auto) 1.6 % (0.0-4.0) 12/10/17 05:30 Baso % (Auto) 0.3 % (0.0-2.0) 12/10/17 05:30 Neut # (Auto) 4.2 K/uL (1.8-7.0) 12/10/17 05:30 Lymph # (Auto) 1.1 K/uL (1.0-4.3) 12/10/17 05:30 [place] # (Auto) 0.5 K/uL (0.0-0.8) 12/10/17 05:30 Eos # (Auto) 0.1 K/uL (0.0-0.7) 12/10/17 05:30 Baso # (Auto) 0.0 K/uL (0.0-0.2) 12/10/17 05:30 pCO2 51 mm/Hg (35-45) H 12/11/17 04:47 pO2 51 mm/Hg (80-100) L 12/11/17 04:47 HCO3 30.6 mmol/L (21-28) H 12/11/17 04:47 ABG pH 7.42 (7.35-7.45) 12/11/17 04:47 ABG Total CO2 34.7 mmol/L (22-28) H 12/11/17 04:47 ABG O2 Saturation 89.5 % (95-98) L 12/11/17 04:47 ABG O2 Content 12.8 ML/dL (15-23) L 12/11/17 04:47 ABG Base Excess 7.5 mmol/L (-2.0-3.0) H 12/11/17 04:47 ABG Hemoglobin 10.6 g/dL (11.7-17.4) L 12/11/17 04:47 ABG Carboxyhemoglobin 2.3 % (0.5-1.5) H 12/11/17 04:47 POC ABG HHb (Measured) 10.1 % (0.0-5.0) H 12/11/17 04:47 ABG Methemoglobin 1.5 % (0.0-3.0) 12/11/17 04:47 ABG O2 Capacity 14.3 mL/dL (16-24) L 12/11/17 04:47 Boaz Test Yes 12/11/17 04:47 ABG Potassium 4.0 mmol/L (3.6-5.2) 12/09/17 10:52 A-a O2 Difference 35.0 mm/Hg 12/11/17 04:47 Hgb O2 Saturation 86.1 % (95.0-98.0) L 12/11/17 04:47 Sodium 138.0 mmol/L (132-148) 12/09/17 10:52 Chloride 107.0 mmol/L (98-107) 12/09/17 10:52 Glucose 197 mg/dL (65-105) H 12/09/17 10:52 Lactate 0.9 mmol/L (0.7-2.1) 12/09/17 10:52 FiO2 21.0 % 12/11/17 04:47 Sodium 138 mmol/l (132-148) 12/11/17 05:30 Potassium 3.9 MMOL/L (3.6-5.0) 12/11/17 05:30 Chloride 102 mmol/L (98-107) 12/11/17 05:30 Carbon Dioxide 30 mmol/L (22-30) 12/11/17 05:30 Anion Gap 10 (10-20) 12/11/17 05:30 BUN 28 mg/dl (7-17) H 12/11/17 05:30 Creatinine 1.0 mg/dl (0.7-1.2) 12/11/17 05:30 Est GFR ( Amer) > 60 12/11/17 05:30 Est GFR (Non-Af Amer) 55 12/11/17 05:30 POC Glucose (mg/dL) 259 mg/dL (65-110) H 12/12/17 10:32 Random Glucose 126 mg/dL (65-105) H 12/11/17 05:30 Calcium 8.2 mg/dL (8.4-10.2) L 12/11/17 05:30 Iron 31 ug/dL (37-170) L 12/10/17 08:45 TIBC 294 ug/dL (250-450) 12/10/17 08:45 % Saturation 10 % (20-55) L 12/10/17 08:45 Ferritin 97.3 ng/Ml (11.1-264.0) 12/10/17 08:45 Total Bilirubin 0.6 mg/dl (0.2-1.3) 12/11/17 05:30 AST 29 U/L (14-36) 12/11/17 05:30 ALT 31 U/L (9-52) 12/11/17 05:30 Alkaline Phosphatase 56 U/L (38-126) 12/11/17 05:30 Troponin I < 0.0120 ng/mL (0.00-0.120) 12/09/17 11:00 NT-Pro-B Natriuret Pep 890 pg/ml (0-900) 12/09/17 11:00 Total Protein 7.2 G/DL (6.3-8.2) 12/11/17 05:30 Albumin 3.6 g/dL (3.5-5.0) 12/11/17 05:30 Globulin 3.6 gm/dL (2.2-3.9) 12/11/17 05:30 Albumin/Globulin Ratio 1.0 (1.0-2.1) 12/11/17 05:30 TSH 3rd Generation 1.07 mIU/ML (0.46-4.68) 12/09/17 16:40 Arterial Blood Potassium 4.0 mmol/L (3.6-5.2) 12/09/17 10:52 Urine Color Yellow (YELLOW) 12/09/17 19:00 Urine Clarity Slighty-cloudy (Clear) 12/09/17 19:00 Urine pH 5.0 (5.0-8.0) 12/09/17 19:00 Ur Specific [place] 1.015 (1.003-1.030) 12/09/17 19:00 Urine Protein 30 mg/dL (NEGATIVE) 12/09/17 19:00 Urine Glucose (UA) Neg mg/dL (Normal) 12/09/17 19:00 Urine Ketones Negative mg/dL (NEGATIVE) 12/09/17 19:00 Urine Blood Negative (NEGATIVE) 12/09/17 19:00 Urine Nitrate Positive (NEGATIVE) H 12/09/17 19:00 Urine Bilirubin Negative (NEGATIVE) 12/09/17 19:00 Urine Urobilinogen 0.2-1.0 mg/dL (0.2-1.0) 12/09/17 19:00 Ur Leukocyte Esterase Mod Jr/uL (Negative) 12/09/17 19:00 Urine RBC (Auto) 2 /hpf (0-3) 12/09/17 19:00 Urine Microscopic WBC 44 /hpf (0-5) H 12/09/17 19:00 Ur Squamous Epith Cells 1 /hpf (0-5) 12/09/17 19:00 Urine Bacteria Many (<OCC) H 12/09/17 19:00 - Hospital Course Hospital Course: 72 y/o F with past medical hx of HTN, Alzheimer's Disease, CVA, Diabetes II, CHF, and HLD was admitted because of hypoglycemia with blood glucose at home at 39 as per . At home, patient was on 3 oral hypoglycemic meds along with 26 units of levemir at bedtime. Patient was restarted only one diabetic medication, Januvia 50 mg PO QD. Patient's last 3 glucose levels have been 124, 126, and 176. Patient was also found to be mildly hypoxic. Chest CT was performed with fidings of B/L panlobar areas of subsegmental atelectasis and/or infiltrates. She was seen by pulmonary team, and started on Levaquin 750mg PO QD. This morning, patient was seen and examined with at the bedside. She had no complaints. She stated she slept well, and denied any fever, chills, headache, dizziness, chest pain, and shortness of breath. 1. Hypoglycemia, resolved - Januvia 50mg PO QD -Other home diabetic meds discontinued 2. Episode of hypoxia, improved - Chest CT: bilateral sweeney lobar areas of subsegmental ateletactasis and/or infiltrate. - Will continue Levaquin 500mg PO x 5 days as outpatient (received 2 doses of Levaquin 750mg QD already with first dose given 12/11/2017). - Serial outpatient CXR's until atelectasis/infiltrates resolves as per Dr. Vicente. 3. UTI - positive UA, asymptomatic - Will continue Levaquin 500mg PO x 5 days as outpatient. (One dose of Cipro 400mg was given). - Urine cx- No growth 4. Anemia - likely due to chronic disease - Last H/H 9.6/29.0 (12/11/2017) - Will continue Ferrous sulfate 325mg PO TID -Will continue Colace 100 po BID prn 5. h/o CKD stage I, currently stable - Bun/Cr 28/1.0 6. Bradycardia, resolved 7. CHF -Pro-BNP: 890 as of 12/09; was 1130H 12/08 -Will continue Coreg 12.5mg PO BID as outpatient. -Furosemide 325mg PO TID -Aldactone 12.5mg PO QD - Patient stable from cardiology standpoint as per Dr. Strickland 8. HTN -Enalapril 5mg PO Q12 9. Dementia -Donepezil 5mg PO HS -Folic Acid 800mcg PO QD -Centrum 1 tab PO QD -Vitamin E 400 unit PO QD 8. Hyperlipidemia -Rosuvastatin 20mg PO QD Will continue home meds Discharge Exam - Head Exam Head Exam: ATRAUMATIC, NORMAL INSPECTION, NORMOCEPHALIC - ENT Exam ENT Exam: Mucous Membranes Moist - Neck Exam Neck exam: Full Rom - Respiratory Exam Respiratory Exam: Clear to PA & Lateral - Cardiovascular Exam Cardiovascular Exam: REGULAR RHYTHM, +S1, +S2 - GI/Abdominal Exam GI & Abdominal Exam: Normal Bowel Sounds, Soft, Unremarkable - Extremities Exam Additional comments: calves nontender - Neurological Exam Additional comments: Alert & oriented x 2 - Skin Skin Exam: Dry, Intact Discharge Plan - Discharge Medications Prescriptions: RX: Carvedilol [Coreg] 12.5 mg PO Q12 #60 tab levoFLOXacin [Levaquin] 750 mg PO DAILY 5 Days #5 tab RX: SITagliptin [Januvia] 50 mg PO DAILY #30 tab - Follow Up Plan Condition: GUARDED Disposition: HOME/ ROUTINE Instructions: Low Blood Sugar, Adult (DC) Additional Instructions: [facility] [phone] Do not use home insulin. New medications have been called into pharmacy as a 5 day antibiotic course Please follow up with your primary MD. If symptoms worsen or reoccur please return to ER. No usar a la insulin que tiene en la casa. Medicamentos nuevos llamado a serrano farmacia. sandra un curso de antibiotico. cintia valorie con serrano primario. si brigitte simptomas empeoran or regresan, venga a tonia de emergencia. Referrals: Hayden Strickland MD [Staff Provider] - Pito Babb MD [Family Provider] - <Katherine Frances - Last Filed: 12/12/17 17:19> Provider - Provider Date of Admission: 12/10/17 12:19 Attending physician: Isreal Vargas MD Hospital Course - Lab Results Lab Results: Micro Results 12/10/17 11:55 Urine Urine Culture - Final No Growth (<1,000 CFU/ML) Most Recent Lab Values WBC 5.9 K/uL (4.8-10.8) 12/10/17 05:30 RBC 3.21 Mil/uL (3.80-5.20) L 12/10/17 05:30 Hgb 9.6 g/dL (12.0-16.0) L 12/10/17 05:30 Hct 29.0 % (34.0-47.0) L 12/10/17 05:30 MCV 90.6 fl (81.0-99.0) 12/10/17 05:30 MCH 29.9 pg (27.0-31.0) 12/10/17 05:30 MCHC 33.0 g/dL (33.0-37.0) 12/10/17 05:30 RDW 15.4 % (11.5-14.5) H 12/10/17 05:30 Plt Count 210 K/uL (130-400) 12/10/17 05:30 MPV 9.4 fl (7.2-11.7) 12/10/17 05:30 Neut % (Auto) 71.0 % (50.0-75.0) 12/10/17 05:30 Lymph % (Auto) 19.4 % (20.0-40.0) L 12/10/17 05:30 [place] % (Auto) 7.7 % (0.0-10.0) 12/10/17 05:30 Eos % (Auto) 1.6 % (0.0-4.0) 12/10/17 05:30 Baso % (Auto) 0.3 % (0.0-2.0) 12/10/17 05:30 Neut # (Auto) 4.2 K/uL (1.8-7.0) 12/10/17 05:30 Lymph # (Auto) 1.1 K/uL (1.0-4.3) 12/10/17 05:30 [place] # (Auto) 0.5 K/uL (0.0-0.8) 12/10/17 05:30 Eos # (Auto) 0.1 K/uL (0.0-0.7) 12/10/17 05:30 Baso # (Auto) 0.0 K/uL (0.0-0.2) 12/10/17 05:30 pCO2 51 mm/Hg (35-45) H 12/11/17 04:47 pO2 51 mm/Hg (80-100) L 12/11/17 04:47 HCO3 30.6 mmol/L (21-28) H 12/11/17 04:47 ABG pH 7.42 (7.35-7.45) 12/11/17 04:47 ABG Total CO2 34.7 mmol/L (22-28) H 12/11/17 04:47 ABG O2 Saturation 89.5 % (95-98) L 12/11/17 04:47 ABG O2 Content 12.8 ML/dL (15-23) L 12/11/17 04:47 ABG Base Excess 7.5 mmol/L (-2.0-3.0) H 12/11/17 04:47 ABG Hemoglobin 10.6 g/dL (11.7-17.4) L 12/11/17 04:47 ABG Carboxyhemoglobin 2.3 % (0.5-1.5) H 12/11/17 04:47 POC ABG HHb (Measured) 10.1 % (0.0-5.0) H 12/11/17 04:47 ABG Methemoglobin 1.5 % (0.0-3.0) 12/11/17 04:47 ABG O2 Capacity 14.3 mL/dL (16-24) L 12/11/17 04:47 Boaz Test Yes 12/11/17 04:47 ABG Potassium 4.0 mmol/L (3.6-5.2) 12/09/17 10:52 A-a O2 Difference 35.0 mm/Hg 12/11/17 04:47 Hgb O2 Saturation 86.1 % (95.0-98.0) L 12/11/17 04:47 Sodium 138.0 mmol/L (132-148) 12/09/17 10:52 Chloride 107.0 mmol/L (98-107) 12/09/17 10:52 Glucose 197 mg/dL (65-105) H 12/09/17 10:52 Lactate 0.9 mmol/L (0.7-2.1) 12/09/17 10:52 FiO2 21.0 % 12/11/17 04:47 Sodium 138 mmol/l (132-148) 12/11/17 05:30 Potassium 3.9 MMOL/L (3.6-5.0) 12/11/17 05:30 Chloride 102 mmol/L (98-107) 12/11/17 05:30 Carbon Dioxide 30 mmol/L (22-30) 12/11/17 05:30 Anion Gap 10 (10-20) 12/11/17 05:30 BUN 28 mg/dl (7-17) H 12/11/17 05:30 Creatinine 1.0 mg/dl (0.7-1.2) 12/11/17 05:30 Est GFR ( Amer) > 60 12/11/17 05:30 Est GFR (Non-Af Amer) 55 12/11/17 05:30 POC Glucose (mg/dL) 259 mg/dL (65-110) H 12/12/17 10:32 Random Glucose 126 mg/dL (65-105) H 12/11/17 05:30 Calcium 8.2 mg/dL (8.4-10.2) L 12/11/17 05:30 Iron 31 ug/dL (37-170) L 12/10/17 08:45 TIBC 294 ug/dL (250-450) 12/10/17 08:45 % Saturation 10 % (20-55) L 12/10/17 08:45 Ferritin 97.3 ng/Ml (11.1-264.0) 12/10/17 08:45 Total Bilirubin 0.6 mg/dl (0.2-1.3) 12/11/17 05:30 AST 29 U/L (14-36) 12/11/17 05:30 ALT 31 U/L (9-52) 12/11/17 05:30 Alkaline Phosphatase 56 U/L (38-126) 12/11/17 05:30 Troponin I < 0.0120 ng/mL (0.00-0.120) 12/09/17 11:00 NT-Pro-B Natriuret Pep 890 pg/ml (0-900) 12/09/17 11:00 Total Protein 7.2 G/DL (6.3-8.2) 12/11/17 05:30 Albumin 3.6 g/dL (3.5-5.0) 12/11/17 05:30 Globulin 3.6 gm/dL (2.2-3.9) 12/11/17 05:30 Albumin/Globulin Ratio 1.0 (1.0-2.1) 12/11/17 05:30 TSH 3rd Generation 1.07 mIU/ML (0.46-4.68) 12/09/17 16:40 Arterial Blood Potassium 4.0 mmol/L (3.6-5.2) 12/09/17 10:52 Urine Color Yellow (YELLOW) 12/09/17 19:00 Urine Clarity Slighty-cloudy (Clear) 12/09/17 19:00 Urine pH 5.0 (5.0-8.0) 12/09/17 19:00 Ur Specific [place] 1.015 (1.003-1.030) 12/09/17 19:00 Urine Protein 30 mg/dL (NEGATIVE) 12/09/17 19:00 Urine Glucose (UA) Neg mg/dL (Normal) 12/09/17 19:00 Urine Ketones Negative mg/dL (NEGATIVE) 12/09/17 19:00 Urine Blood Negative (NEGATIVE) 12/09/17 19:00 Urine Nitrate Positive (NEGATIVE) H 12/09/17 19:00 Urine Bilirubin Negative (NEGATIVE) 12/09/17 19:00 Urine Urobilinogen 0.2-1.0 mg/dL (0.2-1.0) 12/09/17 19:00 Ur Leukocyte Esterase Mod Jr/uL (Negative) 12/09/17 19:00 Urine RBC (Auto) 2 /hpf (0-3) 12/09/17 19:00 Urine Microscopic WBC 44 /hpf (0-5) H 12/09/17 19:00 Ur Squamous Epith Cells 1 /hpf (0-5) 12/09/17 19:00 Urine Bacteria Many (<OCC) H 12/09/17 19:00 Attending/Attestation - Attestation I have personally seen and examined this patient.: Yes I have fully participated in the care of the patient.: Yes I have reviewed all pertinent clinical information, including history, physical exam and plan: Yes Notes (Text): Additional Note: 1. Hypoglycemia in patient with DM type II d/c all DM meds except Alexandra -Rubin RN for medication compliance , DM education 2.Mild Acute CHF exacerbation, diastolic dysfunction, EF 60-65% - cont SLAVA, BB and Aldactone ' 3 Hypoxic episode likely due to Atelectasis Chest Physiotherapy, Incentive spirometry 4. Vascular Dementia, chronic 5. CKD stage I 6. Chronic Anemia <Kennedy Torres D - Last Filed: 12/12/17 19:06> Provider - Provider Date of Admission: 12/10/17 12:19 Attending physician: Isreal Vargas MD Hospital Course - Lab Results Lab Results: Micro Results 12/10/17 11:55 Urine Urine Culture - Final No Growth (<1,000 CFU/ML) Most Recent Lab Values WBC 5.9 K/uL (4.8-10.8) 12/10/17 05:30 RBC 3.21 Mil/uL (3.80-5.20) L 12/10/17 05:30 Hgb 9.6 g/dL (12.0-16.0) L 12/10/17 05:30 Hct 29.0 % (34.0-47.0) L 12/10/17 05:30 MCV 90.6 fl (81.0-99.0) 12/10/17 05:30 MCH 29.9 pg (27.0-31.0) 12/10/17 05:30 MCHC 33.0 g/dL (33.0-37.0) 12/10/17 05:30 RDW 15.4 % (11.5-14.5) H 12/10/17 05:30 Plt Count 210 K/uL (130-400) 12/10/17 05:30 MPV 9.4 fl (7.2-11.7) 12/10/17 05:30 Neut % (Auto) 71.0 % (50.0-75.0) 12/10/17 05:30 Lymph % (Auto) 19.4 % (20.0-40.0) L 12/10/17 05:30 [place] % (Auto) 7.7 % (0.0-10.0) 12/10/17 05:30 Eos % (Auto) 1.6 % (0.0-4.0) 12/10/17 05:30 Baso % (Auto) 0.3 % (0.0-2.0) 12/10/17 05:30 Neut # (Auto) 4.2 K/uL (1.8-7.0) 12/10/17 05:30 Lymph # (Auto) 1.1 K/uL (1.0-4.3) 12/10/17 05:30 [place] # (Auto) 0.5 K/uL (0.0-0.8) 12/10/17 05:30 Eos # (Auto) 0.1 K/uL (0.0-0.7) 12/10/17 05:30 Baso # (Auto) 0.0 K/uL (0.0-0.2) 12/10/17 05:30 pCO2 51 mm/Hg (35-45) H 12/11/17 04:47 pO2 51 mm/Hg (80-100) L 12/11/17 04:47 HCO3 30.6 mmol/L (21-28) H 12/11/17 04:47 ABG pH 7.42 (7.35-7.45) 12/11/17 04:47 ABG Total CO2 34.7 mmol/L (22-28) H 12/11/17 04:47 ABG O2 Saturation 89.5 % (95-98) L 12/11/17 04:47 ABG O2 Content 12.8 ML/dL (15-23) L 12/11/17 04:47 ABG Base Excess 7.5 mmol/L (-2.0-3.0) H 12/11/17 04:47 ABG Hemoglobin 10.6 g/dL (11.7-17.4) L 12/11/17 04:47 ABG Carboxyhemoglobin 2.3 % (0.5-1.5) H 12/11/17 04:47 POC ABG HHb (Measured) 10.1 % (0.0-5.0) H 12/11/17 04:47 ABG Methemoglobin 1.5 % (0.0-3.0) 12/11/17 04:47 ABG O2 Capacity 14.3 mL/dL (16-24) L 12/11/17 04:47 Boaz Test Yes 12/11/17 04:47 ABG Potassium 4.0 mmol/L (3.6-5.2) 12/09/17 10:52 A-a O2 Difference 35.0 mm/Hg 12/11/17 04:47 Hgb O2 Saturation 86.1 % (95.0-98.0) L 12/11/17 04:47 Sodium 138.0 mmol/L (132-148) 12/09/17 10:52 Chloride 107.0 mmol/L (98-107) 12/09/17 10:52 Glucose 197 mg/dL (65-105) H 12/09/17 10:52 Lactate 0.9 mmol/L (0.7-2.1) 12/09/17 10:52 FiO2 21.0 % 12/11/17 04:47 Sodium 138 mmol/l (132-148) 12/11/17 05:30 Potassium 3.9 MMOL/L (3.6-5.0) 12/11/17 05:30 Chloride 102 mmol/L (98-107) 12/11/17 05:30 Carbon Dioxide 30 mmol/L (22-30) 12/11/17 05:30 Anion Gap 10 (10-20) 12/11/17 05:30 BUN 28 mg/dl (7-17) H 12/11/17 05:30 Creatinine 1.0 mg/dl (0.7-1.2) 12/11/17 05:30 Est GFR ( Amer) > 60 12/11/17 05:30 Est GFR (Non-Af Amer) 55 12/11/17 05:30 POC Glucose (mg/dL) 259 mg/dL (65-110) H 12/12/17 10:32 Random Glucose 126 mg/dL (65-105) H 12/11/17 05:30 Calcium 8.2 mg/dL (8.4-10.2) L 12/11/17 05:30 Iron 31 ug/dL (37-170) L 12/10/17 08:45 TIBC 294 ug/dL (250-450) 12/10/17 08:45 % Saturation 10 % (20-55) L 12/10/17 08:45 Ferritin 97.3 ng/Ml (11.1-264.0) 12/10/17 08:45 Total Bilirubin 0.6 mg/dl (0.2-1.3) 12/11/17 05:30 AST 29 U/L (14-36) 12/11/17 05:30 ALT 31 U/L (9-52) 12/11/17 05:30 Alkaline Phosphatase 56 U/L (38-126) 12/11/17 05:30 Troponin I < 0.0120 ng/mL (0.00-0.120) 12/09/17 11:00 NT-Pro-B Natriuret Pep 890 pg/ml (0-900) 12/09/17 11:00 Total Protein 7.2 G/DL (6.3-8.2) 12/11/17 05:30 Albumin 3.6 g/dL (3.5-5.0) 12/11/17 05:30 Globulin 3.6 gm/dL (2.2-3.9) 12/11/17 05:30 Albumin/Globulin Ratio 1.0 (1.0-2.1) 12/11/17 05:30 TSH 3rd Generation 1.07 mIU/ML (0.46-4.68) 12/09/17 16:40 Arterial Blood Potassium 4.0 mmol/L (3.6-5.2) 12/09/17 10:52 Urine Color Yellow (YELLOW) 12/09/17 19:00 Urine Clarity Slighty-cloudy (Clear) 12/09/17 19:00 Urine pH 5.0 (5.0-8.0) 12/09/17 19:00 Ur Specific [place] 1.015 (1.003-1.030) 12/09/17 19:00 Urine Protein 30 mg/dL (NEGATIVE) 12/09/17 19:00 Urine Glucose (UA) Neg mg/dL (Normal) 12/09/17 19:00 Urine Ketones Negative mg/dL (NEGATIVE) 12/09/17 19:00 Urine Blood Negative (NEGATIVE) 12/09/17 19:00 Urine Nitrate Positive (NEGATIVE) H 12/09/17 19:00 Urine Bilirubin Negative (NEGATIVE) 12/09/17 19:00 Urine Urobilinogen 0.2-1.0 mg/dL (0.2-1.0) 12/09/17 19:00 Ur Leukocyte Esterase Mod Jr/uL (Negative) 12/09/17 19:00 Urine RBC (Auto) 2 /hpf (0-3) 12/09/17 19:00 Urine Microscopic WBC 44 /hpf (0-5) H 12/09/17 19:00 Ur Squamous Epith Cells 1 /hpf (0-5) 12/09/17 19:00 Urine Bacteria Many (<OCC) H 12/09/17 19:00 Attending/Attestation - Attestation I have personally seen and examined this patient.: Yes I have fully participated in the care of the patient.: Yes I have reviewed all pertinent clinical information, including history, physical exam and plan: Yes
== END 2017-12-12 15:30 | disposition home health service (06) | DRG 637 ==
LOC: H.ER 10:04 → H.ERHOLD 14:26 → H.MEDSURG1 15:50 → OBSVTOIN 12-10 12:19
PROVIDERS: ADMIT Internal Medicine; ATTEND Internal Medicine
DX: E11.649 Type 2 diabetes mellitus with hypoglycemia without coma (principal); I50.33 Acute on chronic diastolic (congestive) heart failure; N39.0 Urinary tract infection, site not specified; J98.11 Atelectasis; I13.0 Hypertensive heart and chronic kidney disease with heart failure and stage 1 through stage 4 chronic kidney disease, or unspecified chronic kidney disease; D63.8 Anemia in other chronic diseases classified elsewhere; N18.1 Chronic kidney disease, stage 1; R09.02 Hypoxemia; G30.9 Alzheimer's disease, unspecified; F02.80 Dementia in other diseases classified elsewhere, unspecified severity, without behavioral disturbance, psychotic disturbance, mood disturbance, and anxiety; I69.328 Other speech and language deficits following cerebral infarction; E78.00 Pure hypercholesterolemia, unspecified; E78.5 Hyperlipidemia, unspecified; Z88.5 Allergy status to narcotic agent; F32.9 Major depressive disorder, single episode, unspecified; R00.1 Bradycardia, unspecified; F01.50 Vascular dementia, unspecified severity, without behavioral disturbance, psychotic disturbance, mood disturbance, and anxiety; E11.22 Type 2 diabetes mellitus with diabetic chronic kidney disease

== ENCOUNTER 2017-12-18 14:14 | Observation (INO) | payer OTHER ==
[2017-12-18 14:15] VITALS: BMI 31.6
--- NOTE | 2017-12-18 15:55 | ED PDOC ---
HPI: General Adult Time Seen by Provider: 12/18/17 15:20 Chief Complaint (Nursing): High Blood Sugar Chief Complaint (Provider): High Blood Sugar History Per: Patient History/Exam Limitations: no limitations Onset/Duration Of Symptoms: Days (x 6) Current Symptoms Are (Timing): Still Present Recently: Hospitalized Additional Complaint(s): 72 year old female with a history of HTN, DM and stroke presents to the ED for evaluation of high blood sugar. Patient was recently hospitalized due to hypoglycemia and sepsis. She was discharged 6 days ago and recommended to follow up with an acute care cneter for short term medical rehabilitation, which she refused at the time. While at home, she was taking medications as prescribed. reports that her sugars have become increasingly elevated. She offers no complaints at this time. PMD: Dr. Babb Past Medical History Reviewed: Historical Data, Nursing Documentation, Vital Signs Vital Signs: Last Vital Signs Temp 98.2 F 12/18/17 14:48 Pulse 76 12/18/17 14:48 Resp 16 12/18/17 14:48 BP 164/82 H 12/18/17 14:48 Pulse Ox 96 12/18/17 14:48 - Medical History PMH: Alzheimer's Disease, Anemia, Arthritis, CHF, CVA, Dementia, Depression, Diabetes (type 2, NIDDM), HTN, Hypercholesterolemia, Hyperlipidemia, Peripheral Edema, Pneumonia (Aspiration pnuemonia), Chronic Kidney Disease Denies: HIV - Surgical History Surgical History: No Surg Hx - Family History Family History: States: Unknown Family Hx - Immunization History Hx Tetanus Toxoid Vaccination: No Hx Influenza Vaccination: No Hx Pneumococcal Vaccination: No - Home Medications Home Medications: Ambulatory Orders Medication Instructions Recorded RX: Aspirin [Ecotrin] 81 mg PO DAILY #30 tabec 11/09/17 RX: Donepezil [Aricept] 5 mg PO HS #30 tab 11/09/17 RX: Ferrous Sulfate [Feosol] 325 mg PO TID #90 tab 11/09/17 RX: Furosemide [Lasix] 40 mg PO DAILY #30 tab 11/09/17 RX: Rosuvastatin Calcium [Crestor] 20 mg PO DAILY #30 tablet 11/09/17 RX: Docusate Sodium [Colace] 100 mg PO BID 12/09/17 RX: Enalapril Maleate [Vasotec] 5 mg PO Q12 12/09/17 RX: Ergocalciferol (Vitamin D2) 50,000 unit PO FR 12/09/17 [Vitamin D2] RX: Sertraline [Zoloft] 25 mg PO HS 12/09/17 RX: Spironolactone [Aldactone] 12.5 mg PO DAILY 12/09/17 RX: Carvedilol [Coreg] 12.5 mg PO Q12 #60 tab 12/11/17 RX: SITagliptin [Januvia] 50 mg PO DAILY #30 tab 12/11/17 - Allergies Allergies/Adverse Reactions: Allergies Allergy/AdvReac Type Severity Reaction Status Date / Time oxycodone Allergy RASH Verified 12/18/17 14:46 Review of Systems ROS Statement: Except As Marked, All Systems Reviewed And Found Negative Constitutional: Positive for: Weakness Physical Exam - Reviewed Nursing Documentation Reviewed: Yes Vital Signs Reviewed: Yes - Physical Exam Appears: Positive for: No Acute Distress (tired appearing) Head Exam: Positive for: ATRAUMATIC, NORMAL INSPECTION, NORMOCEPHALIC Skin: Positive for: Warm, Pallor Eye Exam: Positive for: EOMI, PERRL ENT: Positive for: Pharynx Is (clear ), Other (tacky mucous membranes) Neck: Positive for: Painless ROM, Supple Cardiovascular/Chest: Positive for: Regular Rate, Rhythm. Negative for: Murmur Respiratory: Positive for: Normal Breath Sounds. Negative for: Respiratory Distress Gastrointestinal/Abdominal: Positive for: Soft. Negative for: Tenderness Back: Positive for: Normal Inspection. Negative for: Decreased ROM Extremity: Positive for: Normal ROM. Negative for: Deformity Lymphatic: Negative for: Adenopathy Neurologic/Psych: Positive for: Alert, Oriented, Mood/Affect (normal) - Laboratory Results Result Diagrams: 12/18/17 15:00 12/18/17 15:00 - ECG ECG: Positive for: Interpreted By Me, Viewed By Me ECG Rhythm: Positive for: Normal QRS, Normal ST Segment, Sinus Rhythm (normal) Rate: 68 O2 Sat by Pulse Oximetry: 96 (RA) Pulse Ox Interpretation: Normal Medical Decision Making Medical Decision Makin:09 Impression: hyperglycemia Differential diagnoses include but are not limited to: uncontrolled diabetes, renal insufficiency, DKA, electrolyte abnormality dehydration and sepsis Initial Plan: --Blood type --VBG --EKG --BNP --CMP --CBC --Mag phos --Troponin --PPT/INR --CXR --Blood cx --Urine cx --UA 16:52 CXR FINDINGS: LUNGS: Frontal view of the chest was performed. Chronic eventration of the right hemidiaphragm is noted. Mild interstitial changes are noted although mildly improved from prior study possibly suggesting decreased congestion. PLEURA: No significant pleural effusion identified, no pneumothorax apparent. CARDIOVASCULAR: Normal. OSSEOUS STRUCTURES: No significant abnormalities. VISUALIZED UPPER ABDOMEN: Normal. OTHER FINDINGS: None. IMPRESSION: No new focal infiltrate. Interval improvement in aeration from prior study. 17:45 Lab demonstrate hyperglycemia; otherwise no emergent significant abnormalities Spoke to Dr. Torres, hospitalist, who covering for PMD Dr. Babb Patient will be hospitalized for uncontrolled diabetes Scribe Attestation: Documented by Evelyn Grossman, acting as a scribe for Magdalene Hairston MD Provider Scribe Attestation: All medical record entries made by the Scribe were at my direction and personally dictated by me. I have reviewed the chart and agree that the record accurately reflects my personal performance of the history, physical exam, medical decision making, and the department course for this patient. I have also personally directed, reviewed, and agree with the discharge instructions and disposition. Disposition - Clinical Impression Clinical Impression: Hyperglycemia - Patient ED Disposition Is Patient to be Admitted: Yes - Disposition Disposition Time: 17:37 Condition: FAIR - Pt Status Changed To: Hospital Disposition Of: Observation - POA Present On Arrival: Poor Glycemic Control
[2017-12-18 16:01] LABS: VENOUS BLOOD GAS BASE EXCESS 1.6 mmol/L (0.0-2.0); VENOUS BLOOD GAS PCO2 60 mmHg (40-60); VENOUS BLOOD GAS PO2 32 mm/Hg (30-55)
[2017-12-18 16:31] LABS: PROTHROMBIN TIME 11.1 Seconds (9.8-13.1)
[2017-12-18] MEDS ORDERED: Insulin Regular 100 units/ml IVP STA (16:32)
[2017-12-18] MEDS ORDERED: Insulin Regular 100 units/ml SC STA ×2 (16:32→17:38)
[2017-12-18 16:33] LABS: BASO % 0.5 % (0.0-2.0); EOS # 0.1 K/uL (0.0-0.7); EOS % 1.6 % (0.0-4.0); HEMOGLOBIN 11.7 g/dL (12.0-16.0); LYMPH # 1.1 K/uL (1.0-4.3); LYMPH % 20.4 % (20.0-40.0); MEAN CELL VOLUME 90.6 fl (81.0-99.0); MEAN CORPUSCULAR HEMOGLOBIN 29.2 pg (27.0-31.0); MEAN CORPUSCULAR HGB CONC 32.2 g/dL (33.0-37.0); MEAN PLATELET VOLUME 9.7 fl (7.2-11.7); MONO # 0.4 K/uL (0.0-0.8); MONO % 7.6 % (0.0-10.0); NEUT # 3.9 K/uL (1.8-7.0); NEUT % 69.9 % (50.0-75.0); RBC 4.01 Mil/uL (3.80-5.20); RED CELL DISTRIBUTION WIDTH 14.7 % (11.5-14.5); WHITE BLOOD COUNT 5.5 K/uL (4.8-10.8)
[2017-12-18 16:34] LABS: PARTIAL THROMBOPLASTIN TIME 27.3 Seconds (25.6-37.1)
[2017-12-18 16:51] LABS: ALBUMIN 3.9 g/dL (3.5-5.0); ALT/SGPT 57 U/L (9-52); AST/SGOT 28 U/L (14-36); B-TYPE NATRIURETIC PEPTIDE 1580 pg/ml (0-900); BLOOD UREA NITROGEN 31 mg/dl (7-17); GFR NON-AFRICAN AMERICAN 49
--- NOTE | 2017-12-18 16:55 | RAD ---
Date of service: 12/18/2017 HISTORY: hyperglycemia COMPARISON: 11/2017 FINDINGS: LUNGS: Frontal view of the chest was performed. Chronic eventration of the right hemidiaphragm is noted. Mild interstitial changes are noted although mildly improved from prior study possibly suggesting decreased congestion. PLEURA: No significant pleural effusion identified, no pneumothorax apparent. CARDIOVASCULAR: Normal. OSSEOUS STRUCTURES: No significant abnormalities. VISUALIZED UPPER ABDOMEN: Normal. OTHER FINDINGS: None. IMPRESSION: No new focal infiltrate. Interval improvement in aeration from prior study.
[2017-12-18 17:02] LABS: SQUAMOUS EPITHIAL 5 /hpf (0-5); URINE BILIRUBIN NEGATIVE (NEGATIVE); URINE BLOOD NEGATIVE (NEGATIVE); URINE CLARITY CLEAR (Clear); URINE COLOR STRAW (YELLOW); URINE GLUCOSE (UA) >=500 mg/dL (Normal); URINE LEUKOCYTE ESTERASE NEG Leu/uL (Negative); URINE PROTEIN NEGATIVE (NEGATIVE); URINE UROBILINOGEN 0.2-1.0 mg/dL (0.2-1.0)
[2017-12-18] MEDS ORDERED: Ergocalciferol 50,000 Intl Units Cap PO SCH (18:15)
--- NOTE | 2017-12-18 18:24 | CP.PCM.HP ---
<FeiceciTuanJonah - Last Filed: 12/18/17 18:49> History of Present Illness - History of Present Illness History of Present Illness: 72 y/o F with past medical hx of HTN, Alzheimer's Disease, CVA, Diabetes II, CHF, and HLD presents with for evaluation of hyperglycemia. (whom is primary senior care manager) reports that since Tuesday (12/16) pt has been urinating more frequently and drinking more water. reports elevated blood sugars since Tuesday, but todays have been the highest, prompting him to bring his in for evaluation. Otherwise he reports she seems to be doing ok and does not report any other complaints. No fevers/chills, CP/SOB/NOWAK/V/D/, weakness. PMD: Dr Babb Cardiology: Dr Strickland PMH: Alzheimer's Disease, CVA, Diabetes II, HTN, CHF, HLD PSH: PEG placement and removal. FH: Unknown Allergies: oxycodone Medication: Reviewed SH: Never Smoked; No alcohol use; No illegal drug use;Live with ED Course: Vitals T 98.2, HR 76, BP 164/82, RR 16, POX 96% CBC 5.5>11.7/36.3<206 CMP: BS 484 Troponin I <0.0120 NT-Pro-BNP: 1580 Coag: WNL VBG: Lactate 1.5 EKG Human Insulin 10U x 3 doses Present on Admission - Present on Admission Any Indicators Present on Admission: Yes History of DVT/PE: No History of Uncontrolled Diabetes: Yes Urinary Catheter: No Decubitus Ulcer Present: No Review of Systems - Review of Systems Systems not reviewed;Unavailable: Dementia (hx taken as per whom is coding support specialist ) Past Patient History - Past Medical History & Family History Past Medical History?: Yes - Past Social History Smoking Status: Never Smoked - CARDIAC Hx Congestive Heart Failure: Yes Hx Hypercholesterolemia: Yes Hx Hypertension: Yes Hx Peripheral Edema: Yes - PULMONARY Hx Pneumonia: Yes (Aspiration pnuemonia) - NEUROLOGICAL Hx Alzheimer's Disease: Yes Hx Dementia: Yes - HEENT Hx HEENT Problems: No - RENAL Hx Chronic Kidney Disease: Yes - ENDOCRINE/METABOLIC Hx Endocrine Disorders: Yes Hx Diabetes Mellitus Type 2: Yes - HEMATOLOGICAL/ONCOLOGICAL Hx Anemia: Yes Hx Human Immunodeficiency Virus (HIV): No - INTEGUMENTARY Hx Dermatological Problems: Yes Hx Cellulitis: Yes - MUSCULOSKELETAL/RHEUMATOLOGICAL Hx Arthritis: Yes - GASTROINTESTINAL Hx Gastrointestinal Disorders: Yes Hx Gastroesophageal Reflux: Yes Hx Hemorrhoids: Yes Other/Comment: Hx rectal bleeding - GENITOURINARY/GYNECOLOGICAL Hx Genitourinary Disorders: Yes Hx Urinary Tract Infection: Yes - PSYCHIATRIC Hx Depression: Yes - SURGICAL HISTORY Hx Surgeries: Yes Other/Comment: Hx PEG tube insertion and removal - ANESTHESIA Hx Anesthesia: Yes Hx Anesthesia Reactions: No Hx Malignant Hyperthermia: No Meds Allergies/Adverse Reactions: Allergies Allergy/AdvReac Type Severity Reaction Status Date / Time oxycodone Allergy RASH Verified 12/18/17 14:46 Physical Exam - Constitutional Appears: Non-toxic, No Acute Distress, Other (laying comfortably in bed) - Head Exam Head Exam: ATRAUMATIC, NORMOCEPHALIC - Eye Exam Eye Exam: EOMI Pupil Exam: PERRL - ENT Exam ENT Exam: Mucous Membranes Moist - Respiratory Exam Respiratory Exam: Clear to Auscultation Bilateral, NORMAL BREATHING PATTERN. absent: Rales, Rhonchi, Wheezes - Cardiovascular Exam Cardiovascular Exam: REGULAR RHYTHM, RRR, +S1, +S2. absent: JVD, Rubs, Systolic Murmur - GI/Abdominal Exam GI & Abdominal Exam: Normal Bowel Sounds, Soft. absent: Tenderness - Extremities Exam Extremities exam: Positive for: normal capillary refill, pedal pulses present. Negative for: pedal edema - Neurological Exam Additional comments: awake, follows commands - Skin Skin Exam: Dry, Intact, Normal Color, Warm Results - Vital Signs Recent Vital Signs: Last Vital Signs Temp 98.2 F 12/18/17 14:48 Pulse 68 12/18/17 17:59 Resp 16 12/18/17 14:48 BP 164/82 H 12/18/17 14:48 Pulse Ox 96 12/18/17 17:59 - Labs Result Diagrams: 12/18/17 15:00 12/18/17 15:00 Labs: Laboratory Results - last 24 hr 12/18/17 12/18/17 12/18/17 15:00 15:00 15:00 WBC 5.5 RBC 4.01 Hgb 11.7 L D Hct 36.3 MCV 90.6 MCH 29.2 MCHC 32.2 L RDW 14.7 H Plt Count 206 MPV 9.7 Neut % (Auto) 69.9 Lymph % (Auto) 20.4 [place] % (Auto) 7.6 Eos % (Auto) 1.6 Baso % (Auto) 0.5 Neut # (Auto) 3.9 Lymph # (Auto) 1.1 [place] # (Auto) 0.4 Eos # (Auto) 0.1 Baso # (Auto) 0.0 PT 11.1 INR 1.0 APTT 27.3 pO2 VBG pH VBG pCO2 VBG HCO3 VBG Total CO2 VBG O2 Sat (Calc) VBG Base Excess VBG Potassium Glucose Lactate FiO2 Sodium 137 Potassium 4.6 Chloride 102 Carbon Dioxide 29 Anion Gap 11 BUN 31 H Creatinine 1.1 Est GFR ( Amer) 59 Est GFR (Non-Af Amer) 49 POC Glucose (mg/dL) Random Glucose 482 H* D Calcium 9.0 Phosphorus 4.6 H Magnesium 2.1 Total Bilirubin 0.2 AST 28 ALT 57 H D Alkaline Phosphatase 71 Troponin I < 0.0120 NT-Pro-B Natriuret Pep 1580 H Total Protein 7.6 Albumin 3.9 Globulin 3.8 Albumin/Globulin Ratio 1.0 Venous Blood Potassium Urine Color Urine Clarity Urine pH Ur Specific Bells Urine Protein Urine Glucose (UA) Urine Ketones Urine Blood Urine Nitrate Urine Bilirubin Urine Urobilinogen Ur Leukocyte Esterase Urine Microscopic WBC Ur Squamous Epith Cells Blood Type Antibody Screen BBK History Checked 12/18/17 12/18/17 12/18/17 15:02 15:55 16:10 WBC RBC Hgb Hct MCV MCH MCHC RDW Plt Count MPV Neut % (Auto) Lymph % (Auto) [place] % (Auto) Eos % (Auto) Baso % (Auto) Neut # (Auto) Lymph # (Auto) [place] # (Auto) Eos # (Auto) Baso # (Auto) PT INR APTT pO2 32 VBG pH 7.30 L VBG pCO2 60 VBG HCO3 25.0 VBG Total CO2 31.3 H VBG O2 Sat (Calc) 59.0 VBG Base Excess 1.6 VBG Potassium 4.6 Glucose 494 H* D Lactate 1.5 FiO2 21.0 Sodium 133.0 Potassium Chloride 98.0 Carbon Dioxide Anion Gap BUN Creatinine Est GFR ( Amer) Est GFR (Non-Af Amer) POC Glucose (mg/dL) 450 H* Random Glucose Calcium Phosphorus Magnesium Total Bilirubin AST ALT Alkaline Phosphatase Troponin I NT-Pro-B Natriuret Pep Total Protein Albumin Globulin Albumin/Globulin Ratio Venous Blood Potassium 4.6 Urine Color Urine Clarity Urine pH Ur Specific Bells Urine Protein Urine Glucose (UA) Urine Ketones Urine Blood Urine Nitrate Urine Bilirubin Urine Urobilinogen Ur Leukocyte Esterase Urine Microscopic WBC Ur Squamous Epith Cells Blood Type A POSITIVE Antibody Screen Negative BBK History Checked Patient has bt 12/18/17 12/18/17 16:46 17:48 WBC RBC Hgb Hct MCV MCH MCHC RDW Plt Count MPV Neut % (Auto) Lymph % (Auto) [place] % (Auto) Eos % (Auto) Baso % (Auto) Neut # (Auto) Lymph # (Auto) [place] # (Auto) Eos # (Auto) Baso # (Auto) PT INR APTT pO2 VBG pH VBG pCO2 VBG HCO3 VBG Total CO2 VBG O2 Sat (Calc) VBG Base Excess VBG Potassium Glucose Lactate FiO2 Sodium Potassium Chloride Carbon Dioxide Anion Gap BUN Creatinine Est GFR ( Amer) Est GFR (Non-Af Amer) POC Glucose (mg/dL) 143 H Random Glucose Calcium Phosphorus Magnesium Total Bilirubin AST ALT Alkaline Phosphatase Troponin I NT-Pro-B Natriuret Pep Total Protein Albumin Globulin Albumin/Globulin Ratio Venous Blood Potassium Urine Color Straw Urine Clarity Clear Urine pH 5.0 Ur Specific [place] 1.012 Urine Protein Negative Urine Glucose (UA) >=500 Urine Ketones Negative Urine Blood Negative Urine Nitrate Negative Urine Bilirubin Negative Urine Urobilinogen 0.2-1.0 Ur Leukocyte Esterase Neg Urine Microscopic WBC 5 Ur Squamous Epith Cells 5 Blood Type Antibody Screen BBK History Checked Assessment & Plan - Assessment and Plan (Free Text) Assessment: 72 y/o F with past medical hx of HTN, Alzheimer's Disease, CVA, Diabetes II, CHF, and HLD admitted for hyperglycemia. Plan: 1) NIDDM2/Hyperglycemia -s/p 30 U insulin in ED -most recent BS 143 -lispo correction scale -resume Januvia 100mg QD -accuchecks -heart healthy/low carb diet -repeat AM labs 2) Hypertension -stable -monitor BPs -resume home meds 3) CHF -BNP 1580 -no signs or symptoms of fluid overload -resume home meds 4) Alzheimers Disease -stable -resume home alzheimer meds 4) Diet -healthy healthy low carb 5) Prophylaxis -Lovenox 40mg SC QD 6) Code Status -Full Code <Kennedy Torres D - Last Filed: 12/18/17 20:09> Results - Vital Signs Recent Vital Signs: Last Vital Signs Temp 98.4 F 12/18/17 18:54 Pulse 78 12/18/17 18:54 Resp 18 12/18/17 18:54 BP 119/56 L 12/18/17 18:54 Pulse Ox 100 12/18/17 18:54 - Labs Result Diagrams: 12/18/17 15:00 12/18/17 15:00 Labs: Laboratory Results - last 24 hr 12/18/17 12/18/17 12/18/17 15:00 15:00 15:00 WBC 5.5 RBC 4.01 Hgb 11.7 L D Hct 36.3 MCV 90.6 MCH 29.2 MCHC 32.2 L RDW 14.7 H Plt Count 206 MPV 9.7 Neut % (Auto) 69.9 Lymph % (Auto) 20.4 Emmons % (Auto) 7.6 Eos % (Auto) 1.6 Baso % (Auto) 0.5 Neut # (Auto) 3.9 Lymph # (Auto) 1.1 [place] # (Auto) 0.4 Eos # (Auto) 0.1 Baso # (Auto) 0.0 PT 11.1 INR 1.0 APTT 27.3 pO2 VBG pH VBG pCO2 VBG HCO3 VBG Total CO2 VBG O2 Sat (Calc) VBG Base Excess VBG Potassium Glucose Lactate FiO2 Sodium 137 Potassium 4.6 Chloride 102 Carbon Dioxide 29 Anion Gap 11 BUN 31 H Creatinine 1.1 Est GFR ( Amer) 59 Est GFR (Non-Af Amer) 49 POC Glucose (mg/dL) Random Glucose 482 H* D Calcium 9.0 Phosphorus 4.6 H Magnesium 2.1 Total Bilirubin 0.2 AST 28 ALT 57 H D Alkaline Phosphatase 71 Troponin I < 0.0120 NT-Pro-B Natriuret Pep 1580 H Total Protein 7.6 Albumin 3.9 Globulin 3.8 Albumin/Globulin Ratio 1.0 Venous Blood Potassium Urine Color Urine Clarity Urine pH Ur Specific Bells Urine Protein Urine Glucose (UA) Urine Ketones Urine Blood Urine Nitrate Urine Bilirubin Urine Urobilinogen Ur Leukocyte Esterase Urine Microscopic WBC Ur Squamous Epith Cells Blood Type Antibody Screen BBK History Checked 12/18/17 12/18/17 12/18/17 15:02 15:55 16:10 WBC RBC Hgb Hct MCV MCH MCHC RDW Plt Count MPV Neut % (Auto) Lymph % (Auto) Emm[place] % (Auto) Eos % (Auto) Baso % (Auto) Neut # (Auto) Lymph # (Auto) [place] # (Auto) Eos # (Auto) Baso # (Auto) PT INR APTT pO2 32 VBG pH 7.30 L VBG pCO2 60 VBG HCO3 25.0 VBG Total CO2 31.3 H VBG O2 Sat (Calc) 59.0 VBG Base Excess 1.6 VBG Potassium 4.6 Glucose 494 H* D Lactate 1.5 FiO2 21.0 Sodium 133.0 Potassium Chloride 98.0 Carbon Dioxide Anion Gap BUN Creatinine Est GFR ( Amer) Est GFR (Non-Af Amer) POC Glucose (mg/dL) 450 H* Random Glucose Calcium Phosphorus Magnesium Total Bilirubin AST ALT Alkaline Phosphatase Troponin I NT-Pro-B Natriuret Pep Total Protein Albumin Globulin Albumin/Globulin Ratio Venous Blood Potassium 4.6 Urine Color Urine Clarity Urine pH Ur Specific Bells Urine Protein Urine Glucose (UA) Urine Ketones Urine Blood Urine Nitrate Urine Bilirubin Urine Urobilinogen Ur Leukocyte Esterase Urine Microscopic WBC Ur Squamous Epith Cells Blood Type A POSITIVE Antibody Screen Negative BBK History Checked Patient has bt 12/18/17 12/18/17 16:46 17:48 WBC RBC Hgb Hct MCV MCH MCHC RDW Plt Count MPV Neut % (Auto) Lymph % (Auto) Emm[place] % (Auto) Eos % (Auto) Baso % (Auto) Neut # (Auto) Lymph # (Auto) [place] # (Auto) Eos # (Auto) Baso # (Auto) PT INR APTT pO2 VBG pH VBG pCO2 VBG HCO3 VBG Total CO2 VBG O2 Sat (Calc) VBG Base Excess VBG Potassium Glucose Lactate FiO2 Sodium Potassium Chloride Carbon Dioxide Anion Gap BUN Creatinine Est GFR ( Amer) Est GFR (Non-Af Amer) POC Glucose (mg/dL) 143 H Random Glucose Calcium Phosphorus Magnesium Total Bilirubin AST ALT Alkaline Phosphatase Troponin I NT-Pro-B Natriuret Pep Total Protein Albumin Globulin Albumin/Globulin Ratio Venous Blood Potassium Urine Color Straw Urine Clarity Clear Urine pH 5.0 Ur Specific Bells 1.012 Urine Protein Negative Urine Glucose (UA) >=500 Urine Ketones Negative Urine Blood Negative Urine Nitrate Negative Urine Bilirubin Negative Urine Urobilinogen 0.2-1.0 Ur Leukocyte Esterase Neg Urine Microscopic WBC 5 Ur Squamous Epith Cells 5 Blood Type Antibody Screen BBK History Checked Attending/Attestation - Attestation I have personally seen and examined this patient.: Yes I have fully participated in the care of the patient.: Yes I have reviewed all pertinent clinical information: Yes
--- NOTE | 2017-12-18 21:57 | CARD ---
APPROVED REPORT Date of service: 12/18/2017 EKG Measurement Heart [id number] <Conclusion> Normal sinus rhythm Normal ECG
[2017-12-18] MEDS: Insulin Lispro (humaLOG) 100 Units/ml Inj SC SCH (22:15)
[2017-12-19 06:34] LABS: BASO % 0.5 % (0.0-2.0); EOS # 0.1 K/uL (0.0-0.7); EOS % 1.7 % (0.0-4.0); HEMOGLOBIN 11.9 g/dL (12.0-16.0); LYMPH # 1.8 K/uL (1.0-4.3); LYMPH % 23.4 % (20.0-40.0); MEAN CELL VOLUME 91.6 fl (81.0-99.0); MEAN CORPUSCULAR HEMOGLOBIN 29.5 pg (27.0-31.0); MEAN CORPUSCULAR HGB CONC 32.2 g/dL (33.0-37.0); MEAN PLATELET VOLUME 9.6 fl (7.2-11.7); MONO # 0.6 K/uL (0.0-0.8); MONO % 7.7 % (0.0-10.0); NEUT # 5.1 K/uL (1.8-7.0); NEUT % 66.7 % (50.0-75.0); NRBC % 0.1 % (0.0-0.0); RBC 4.05 Mil/uL (3.80-5.20); WHITE BLOOD COUNT 7.6 K/uL (4.8-10.8)
[2017-12-19 06:45] LABS: CALCIUM 9.1 mg/dL (8.4-10.2)
[2017-12-19 07:43] VITALS: O2SAT 95
[2017-12-19] MEDS: Insulin Lispro (humaLOG) 100 Units/ml Inj SC SCH ×2 (07:47→12:25)
[2017-12-19] MEDS ORDERED: Pantoprazole 40 mg EC Tab PO SCH (09:00)
[2017-12-19] MEDS ORDERED: Enoxaparin 40 mg Syringe SC SCH (09:00)
--- NOTE | 2017-12-19 14:20 | CP.PCM.DIS ---
<Annie Muhammad - Last Filed: 12/19/17 16:30> Provider - Provider Date of Admission: 12/18/17 17:37 Attending physician: Kennedy Torres MD Time Spent in preparation of Discharge (in minutes): 40 Hospital Course - Lab Results Lab Results: Most Recent Lab Values WBC 7.6 K/uL (4.8-10.8) 12/19/17 06:15 RBC 4.05 Mil/uL (3.80-5.20) 12/19/17 06:15 Hgb 11.9 g/dL (12.0-16.0) L 12/19/17 06:15 Hct 37.1 % (34.0-47.0) 12/19/17 06:15 MCV 91.6 fl (81.0-99.0) 12/19/17 06:15 MCH 29.5 pg (27.0-31.0) 12/19/17 06:15 MCHC 32.2 g/dL (33.0-37.0) L 12/19/17 06:15 RDW 15.0 % (11.5-14.5) H 12/19/17 06:15 Plt Count 210 K/uL (130-400) 12/19/17 06:15 MPV 9.6 fl (7.2-11.7) 12/19/17 06:15 Neut % (Auto) 66.7 % (50.0-75.0) 12/19/17 06:15 Lymph % (Auto) 23.4 % (20.0-40.0) 12/19/17 06:15 [place] % (Auto) 7.7 % (0.0-10.0) 12/19/17 06:15 Eos % (Auto) 1.7 % (0.0-4.0) 12/19/17 06:15 Baso % (Auto) 0.5 % (0.0-2.0) 12/19/17 06:15 Neut # (Auto) 5.1 K/uL (1.8-7.0) 12/19/17 06:15 Lymph # (Auto) 1.8 K/uL (1.0-4.3) 12/19/17 06:15 [place] # (Auto) 0.6 K/uL (0.0-0.8) 12/19/17 06:15 Eos # (Auto) 0.1 K/uL (0.0-0.7) 12/19/17 06:15 Baso # (Auto) 0.0 K/uL (0.0-0.2) 12/19/17 06:15 PT 11.1 Seconds (9.8-13.1) 12/18/17 15:00 INR 1.0 12/18/17 15:00 APTT 27.3 Seconds (25.6-37.1) 12/18/17 15:00 pO2 32 mm/Hg (30-55) 12/18/17 15:55 VBG pH 7.30 (7.32-7.43) L 12/18/17 15:55 VBG pCO2 60 mmHg (40-60) 12/18/17 15:55 VBG HCO3 25.0 mmol/L 12/18/17 15:55 VBG Total CO2 31.3 mmol/L (22-28) H 12/18/17 15:55 VBG O2 Sat (Calc) 59.0 % (40-65) 12/18/17 15:55 VBG Base Excess 1.6 mmol/L (0.0-2.0) 12/18/17 15:55 VBG Potassium 4.6 mmol/L (3.6-5.2) 12/18/17 15:55 Sodium 133.0 mmol/L (132-148) 12/18/17 15:55 Chloride 98.0 mmol/L (98-107) 12/18/17 15:55 Glucose 494 mg/dL (65-105) H* D 12/18/17 15:55 Lactate 1.5 mmol/L (0.7-2.1) 12/18/17 15:55 FiO2 21.0 % 12/18/17 15:55 Sodium 138 mmol/l (132-148) 12/19/17 06:15 Potassium 4.4 MMOL/L (3.6-5.0) 12/19/17 06:15 Chloride 104 mmol/L (98-107) 12/19/17 06:15 Carbon Dioxide 26 mmol/L (22-30) 12/19/17 06:15 Anion Gap 12 (10-20) 12/19/17 06:15 BUN 40 mg/dl (7-17) H 12/19/17 06:15 Creatinine 1.3 mg/dl (0.7-1.2) H 12/19/17 06:15 Est GFR ( Amer) 49 12/19/17 06:15 Est GFR (Non-Af Amer) 40 12/19/17 06:15 POC Glucose (mg/dL) 240 mg/dL (65-110) H 12/19/17 10:37 Random Glucose 156 mg/dL (65-105) H 12/19/17 06:15 Calcium 9.1 mg/dL (8.4-10.2) 12/19/17 06:15 Phosphorus 4.6 mg/dl (2.5-4.5) H 12/18/17 15:00 Magnesium 2.1 MG/DL (1.6-2.3) 12/18/17 15:00 Total Bilirubin 0.2 mg/dl (0.2-1.3) 12/18/17 15:00 AST 28 U/L (14-36) 12/18/17 15:00 ALT 57 U/L (9-52) H D 12/18/17 15:00 Alkaline Phosphatase 71 U/L (38-126) 12/18/17 15:00 Troponin I < 0.0120 ng/mL (0.00-0.120) 12/18/17 15:00 NT-Pro-B Natriuret Pep 1580 pg/ml (0-900) H 12/18/17 15:00 Total Protein 7.6 G/DL (6.3-8.2) 12/18/17 15:00 Albumin 3.9 g/dL (3.5-5.0) 12/18/17 15:00 Globulin 3.8 gm/dL (2.2-3.9) 12/18/17 15:00 Albumin/Globulin Ratio 1.0 (1.0-2.1) 12/18/17 15:00 Venous Blood Potassium 4.6 mmol/L (3.6-5.2) 12/18/17 15:55 Urine Color Straw (YELLOW) 12/18/17 16:46 Urine Clarity Clear (Clear) 12/18/17 16:46 Urine pH 5.0 (5.0-8.0) 12/18/17 16:46 Ur Specific [place] 1.012 (1.003-1.030) 12/18/17 16:46 Urine Protein Negative mg/dL (NEGATIVE) 12/18/17 16:46 Urine Glucose (UA) >=500 mg/dL (Normal) 12/18/17 16:46 Urine Ketones Negative mg/dL (NEGATIVE) 12/18/17 16:46 Urine Blood Negative (NEGATIVE) 12/18/17 16:46 Urine Nitrate Negative (NEGATIVE) 12/18/17 16:46 Urine Bilirubin Negative (NEGATIVE) 12/18/17 16:46 Urine Urobilinogen 0.2-1.0 mg/dL (0.2-1.0) 12/18/17 16:46 Ur Leukocyte Esterase Neg Jr/uL (Negative) 12/18/17 16:46 Urine Microscopic WBC 5 /hpf (0-5) 12/18/17 16:46 Ur Squamous Epith Cells 5 /hpf (0-5) 12/18/17 16:46 Blood Type A POSITIVE 12/18/17 16:10 Antibody Screen Negative 12/18/17 16:10 BBK History Checked Patient has bt 12/18/17 16:10 - Hospital Course Hospital Course: 72 y/o F with past medical hx of HTN, Alzheimer's Disease, CVA, Diabetes II, CHF, and HLD was brought to ED by her (who is her wound care center consultant) for evaluation of hyperglycemia. Initial POC glucose was 482. Lispro correction scale was placed, Januvia 100mg QD was resumed, and a healthy heart diet was started. Patient was recently admitted for hypoglycemia, and her children felt father was having difficulty managing her DM. She was seen this morning. [employer] services were used ([id number]). Patient states she slept well, and denied any fever, chills, dizziness, nausea of vomitting. Patient was discharged to [facility]. 1) DM2 with Hyperglycemia -Januvia 100mg QD 2) Hypertension -Carvedilol 12.5mg PO BID -Enalapril 5mg PO BID 3) Alzheimers Disease -Donepezil 5mg PO HS Discharge Exam - Head Exam Head Exam: ATRAUMATIC, NORMAL INSPECTION, NORMOCEPHALIC - Respiratory Exam Respiratory Exam: Clear to PA & Lateral - Cardiovascular Exam Cardiovascular Exam: REGULAR RHYTHM, +S1, +S2 - GI/Abdominal Exam GI & Abdominal Exam: Normal Bowel Sounds, Soft. absent: Firm, Guarding, Tenderness - Neurological Exam Neurological exam: Alert - Skin Skin Exam: Dry Discharge Plan - Follow Up Plan Condition: FAIR Disposition: HOME/ ROUTINE Instructions: Hyperglycemia, Adult (DC) <Kennedy Torres - Last Filed: 12/19/17 17:22> Provider - Provider Date of Admission: 12/18/17 17:37 Attending physician: Kennedy Torres MD Hospital Course - Lab Results Lab Results: Most Recent Lab Values WBC 7.6 K/uL (4.8-10.8) 12/19/17 06:15 RBC 4.05 Mil/uL (3.80-5.20) 12/19/17 06:15 Hgb 11.9 g/dL (12.0-16.0) L 12/19/17 06:15 Hct 37.1 % (34.0-47.0) 12/19/17 06:15 MCV 91.6 fl (81.0-99.0) 12/19/17 06:15 MCH 29.5 pg (27.0-31.0) 12/19/17 06:15 MCHC 32.2 g/dL (33.0-37.0) L 12/19/17 06:15 RDW 15.0 % (11.5-14.5) H 12/19/17 06:15 Plt Count 210 K/uL (130-400) 12/19/17 06:15 MPV 9.6 fl (7.2-11.7) 12/19/17 06:15 Neut % (Auto) 66.7 % (50.0-75.0) 12/19/17 06:15 Lymph % (Auto) 23.4 % (20.0-40.0) 12/19/17 06:15 [place] % (Auto) 7.7 % (0.0-10.0) 12/19/17 06:15 Eos % (Auto) 1.7 % (0.0-4.0) 12/19/17 06:15 Baso % (Auto) 0.5 % (0.0-2.0) 12/19/17 06:15 Neut # (Auto) 5.1 K/uL (1.8-7.0) 12/19/17 06:15 Lymph # (Auto) 1.8 K/uL (1.0-4.3) 12/19/17 06:15 [place] # (Auto) 0.6 K/uL (0.0-0.8) 12/19/17 06:15 Eos # (Auto) 0.1 K/uL (0.0-0.7) 12/19/17 06:15 Baso # (Auto) 0.0 K/uL (0.0-0.2) 12/19/17 06:15 PT 11.1 Seconds (9.8-13.1) 12/18/17 15:00 INR 1.0 12/18/17 15:00 APTT 27.3 Seconds (25.6-37.1) 12/18/17 15:00 pO2 32 mm/Hg (30-55) 12/18/17 15:55 VBG pH 7.30 (7.32-7.43) L 12/18/17 15:55 VBG pCO2 60 mmHg (40-60) 12/18/17 15:55 VBG HCO3 25.0 mmol/L 12/18/17 15:55 VBG Total CO2 31.3 mmol/L (22-28) H 12/18/17 15:55 VBG O2 Sat (Calc) 59.0 % (40-65) 12/18/17 15:55 VBG Base Excess 1.6 mmol/L (0.0-2.0) 12/18/17 15:55 VBG Potassium 4.6 mmol/L (3.6-5.2) 12/18/17 15:55 Sodium 133.0 mmol/L (132-148) 12/18/17 15:55 Chloride 98.0 mmol/L (98-107) 12/18/17 15:55 Glucose 494 mg/dL (65-105) H* D 12/18/17 15:55 Lactate 1.5 mmol/L (0.7-2.1) 12/18/17 15:55 FiO2 21.0 % 12/18/17 15:55 Sodium 138 mmol/l (132-148) 12/19/17 06:15 Potassium 4.4 MMOL/L (3.6-5.0) 12/19/17 06:15 Chloride 104 mmol/L (98-107) 12/19/17 06:15 Carbon Dioxide 26 mmol/L (22-30) 12/19/17 06:15 Anion Gap 12 (10-20) 12/19/17 06:15 BUN 40 mg/dl (7-17) H 12/19/17 06:15 Creatinine 1.3 mg/dl (0.7-1.2) H 12/19/17 06:15 Est GFR ( Amer) 49 12/19/17 06:15 Est GFR (Non-Af Amer) 40 12/19/17 06:15 POC Glucose (mg/dL) 331 mg/dL (65-110) H 12/19/17 15:57 Random Glucose 156 mg/dL (65-105) H 12/19/17 06:15 Calcium 9.1 mg/dL (8.4-10.2) 12/19/17 06:15 Phosphorus 4.6 mg/dl (2.5-4.5) H 12/18/17 15:00 Magnesium 2.1 MG/DL (1.6-2.3) 12/18/17 15:00 Total Bilirubin 0.2 mg/dl (0.2-1.3) 12/18/17 15:00 AST 28 U/L (14-36) 12/18/17 15:00 ALT 57 U/L (9-52) H D 12/18/17 15:00 Alkaline Phosphatase 71 U/L (38-126) 12/18/17 15:00 Troponin I < 0.0120 ng/mL (0.00-0.120) 12/18/17 15:00 NT-Pro-B Natriuret Pep 1580 pg/ml (0-900) H 12/18/17 15:00 Total Protein 7.6 G/DL (6.3-8.2) 12/18/17 15:00 Albumin 3.9 g/dL (3.5-5.0) 12/18/17 15:00 Globulin 3.8 gm/dL (2.2-3.9) 12/18/17 15:00 Albumin/Globulin Ratio 1.0 (1.0-2.1) 12/18/17 15:00 Venous Blood Potassium 4.6 mmol/L (3.6-5.2) 12/18/17 15:55 Urine Color Straw (YELLOW) 12/18/17 16:46 Urine Clarity Clear (Clear) 12/18/17 16:46 Urine pH 5.0 (5.0-8.0) 12/18/17 16:46 Ur Specific [place] 1.012 (1.003-1.030) 12/18/17 16:46 Urine Protein Negative mg/dL (NEGATIVE) 12/18/17 16:46 Urine Glucose (UA) >=500 mg/dL (Normal) 12/18/17 16:46 Urine Ketones Negative mg/dL (NEGATIVE) 12/18/17 16:46 Urine Blood Negative (NEGATIVE) 12/18/17 16:46 Urine Nitrate Negative (NEGATIVE) 12/18/17 16:46 Urine Bilirubin Negative (NEGATIVE) 12/18/17 16:46 Urine Urobilinogen 0.2-1.0 mg/dL (0.2-1.0) 12/18/17 16:46 Ur Leukocyte Esterase Neg Jr/uL (Negative) 12/18/17 16:46 Urine Microscopic WBC 5 /hpf (0-5) 12/18/17 16:46 Ur Squamous Epith Cells 5 /hpf (0-5) 12/18/17 16:46 Blood Type A POSITIVE 12/18/17 16:10 Antibody Screen Negative 12/18/17 16:10 BBK History Checked Patient has bt 12/18/17 16:10 Attending/Attestation - Attestation I have personally seen and examined this patient.: Yes I have fully participated in the care of the patient.: Yes I have reviewed all pertinent clinical information, including history, physical exam and plan: Yes
[2017-12-19 16:43] VITALS: BP 137/69; PULSE 75; RESP 20; TEMP 98.1
== END 2017-12-19 16:50 ==
LOC: H.ER 14:14 → H.ERHOLD 17:37 → INTOOBSV 17:37 → H.MEDSURG1 20:35
DX: E11.65 Type 2 diabetes mellitus with hyperglycemia (principal); E78.00 Pure hypercholesterolemia, unspecified; E78.5 Hyperlipidemia, unspecified; F02.80 Dementia in other diseases classified elsewhere, unspecified severity, without behavioral disturbance, psychotic disturbance, mood disturbance, and anxiety; G30.9 Alzheimer's disease, unspecified; I13.0 Hypertensive heart and chronic kidney disease with heart failure and stage 1 through stage 4 chronic kidney disease, or unspecified chronic kidney disease; I50.9 Heart failure, unspecified; K21.9 Gastro-esophageal reflux disease without esophagitis; N18.9 Chronic kidney disease, unspecified; Z79.84 Long term (current) use of oral hypoglycemic drugs; Z86.73 Personal history of transient ischemic attack (TIA), and cerebral infarction without residual deficits; Z87.01 Personal history of pneumonia (recurrent); Z87.440 Personal history of urinary (tract) infections; D64.9 Anemia, unspecified; F32.9 Major depressive disorder, single episode, unspecified; K64.9 Unspecified hemorrhoids; M19.90 Unspecified osteoarthritis, unspecified site; E11.22 Type 2 diabetes mellitus with diabetic chronic kidney disease
CPT/HCPCS: 36415; 71045; 80048; 80053; 81003; 82803; 82948; 83735; 83880; 84100; 84484; 85025; 85610; 85730; 86850; 86900; 87040; 87086; 93005; 96372; 96374; 97162; 97166; 97530; 99284; G0378; G8978; G8979; G8987; G8988; J1650

== ENCOUNTER 2018-02-13 14:45 | Emergency (ER) | payer OTHER ==
[2018-02-13 14:46] VITALS: BMI 31.6
[2018-02-13 14:55] VITALS: TEMP 97.8
[2018-02-13] MEDS ORDERED: Sodium Chloride 0.9% 1,000 ML IV STA (15:53)
--- NOTE | 2018-02-13 15:55 | ED PDOC ---
Hyperglycemia/Hypoglycemia Time Seen by Provider: 02/13/18 15:44 Chief Complaint (Nursing): High Blood Sugar Chief Complaint (Provider): High blood sugar History Per: Patient, Family () History/Exam Limitations: no limitations : The patient does not have any of the infectious symptoms listed except for those marked. Additional Complaint(s): 72 year old female presents with and states that for the past 2 to 3 days, she has had a nonpruritus rash on both lower extremities that seems to resolve after applying eucerin. Patient reports they went to see Dr. Babb and while at the office, her finger stick was 400. They were subsequently advised to come to the ED. 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 Denies CP, SOB, fever, trauma, or leg pain. PMD: Pito Sol Past Medical History Reviewed: Historical Data, Nursing Documentation, Vital Signs Vital Signs: Last Vital Signs Temp 97.8 F 02/13/18 14:51 Pulse 72 02/13/18 14:51 Resp 18 02/13/18 14:51 BP 151/73 H 02/13/18 14:51 Pulse Ox 100 02/13/18 14:51 - Medical History PMH: Alzheimer's Disease, Anemia, Arthritis, CHF, CVA, Dementia, Depression, Diabetes (type 2, NIDDM), HTN, Hypercholesterolemia, Hyperlipidemia, Peripheral Edema, Pneumonia (Aspiration pnuemonia), Chronic Kidney Disease Denies: HIV - Surgical History Surgical History: No Surg Hx - Family History Family History: States: Unknown Family Hx - Immunization History Hx Tetanus Toxoid Vaccination: No Hx Influenza Vaccination: No Hx Pneumococcal Vaccination: No - Home Medications Home Medications: Ambulatory Orders Medication Instructions Recorded Aspirin [Ecotrin] 81 mg PO DAILY #30 tabec 11/09/17 Donepezil [Aricept] 5 mg PO HS #30 tab 11/09/17 Ferrous Sulfate [Feosol] 325 mg PO TID #90 tab 11/09/17 Furosemide [Lasix] 40 mg PO DAILY #30 tab 11/09/17 Rosuvastatin Calcium [Crestor] 20 mg PO DAILY #30 tablet 11/09/17 Docusate Sodium [Colace] 100 mg PO BID 12/09/17 Enalapril Maleate [Vasotec] 5 mg PO Q12 12/09/17 Ergocalciferol (Vitamin D2) 50,000 unit PO FR 12/09/17 [Vitamin D2] Sertraline [Zoloft] 25 mg PO HS 12/09/17 Spironolactone [Aldactone] 12.5 mg PO DAILY 12/09/17 Carvedilol [Coreg] 12.5 mg PO Q12 #60 tab 12/11/17 SITagliptin [Januvia] 100 mg PO DAILY #30 tab 12/19/17 Hydrocortisone 2.5% 1 applic TOP BID PRN #15 gm 02/13/18 Nitrofurantoin Macrocrystals 100 mg PO BID #14 cap 02/13/18 [Macrobid] - Allergies Allergies/Adverse Reactions: Allergies Allergy/AdvReac Type Severity Reaction Status Date / Time oxycodone Allergy RASH Verified 12/18/17 14:46 Review of Systems ROS Statement: Except As Marked, All Systems Reviewed And Found Negative Skin: Positive for: Rash (pruritus rash on both lower extremities) Physical Exam - Reviewed Nursing Documentation Reviewed: Yes Vital Signs Reviewed: Yes - Physical Exam Appears: Positive for: No Acute Distress Head Exam: Positive for: ATRAUMATIC, NORMOCEPHALIC Skin: Positive for: Rash (Faint erythema noted to bilateral lower extremities on medial surface without break in skin integrity. Erythema is noncircumferential with minimal scaling noted) Neck: Positive for: Normal, Painless ROM Cardiovascular/Chest: Positive for: Regular Rate, Rhythm Respiratory: Positive for: Normal Breath Sounds. Negative for: Wheezing, Respiratory Distress Pulses-Dorsalis Pedis (L): 2+ Pulses-Dorsalis Pedis (R): 2+ Gastrointestinal/Abdominal: Positive for: Normal Exam, Soft. Negative for: Tenderness Extremity: Positive for: Normal ROM Neurologic/Psych: Positive for: Alert, Oriented. Negative for: Motor/Sensory Deficits Comments: Finger stick is 89 - Laboratory Results Result Diagrams: 02/13/18 16:19 02/13/18 16:19 - ECG O2 Sat by Pulse Oximetry: 100 (RA) Pulse Ox Interpretation: Normal Medical Decision Making Medical Decision Making: Initial Plan: --CMP --CBC --Sodium chloride 1000mL IV --Urine culture --Urinalysis Patient evaluated by podiatry resident who recommends Hydrocortisone cream. Discussed patient with Dr. Guerra who agrees with plan of care. Scribe Attestation: Documented by Theo Moseley acting as a scribe for Janes BENSON Provider Scribe Attestation: All medical record entries made by the Scribe were at my direction and personally dictated by me. I have reviewed the chart and agree that the record accurately reflects my personal performance of the history, physical exam, medical decision making, and the department course for this patient. I have also personally directed, reviewed, and agree with the discharge instructions and disposition. Disposition - Clinical Impression Clinical Impression: UTI (urinary tract infection) - Patient ED Disposition Is Patient to be Admitted: No - Disposition Referrals: Pito Babb MD [Staff Provider] - Disposition: Routine/Home Disposition Time: 18:38 Condition: IMPROVED Additional Instructions: FOLLOW UP WITH DR. BABB FOR FURTHER EVALUATION RETURN TO ED IMMEDIATELY IF SYMPTOMS WORSEN BRAXTON BAIG, thank you for letting us take care of you today. Your provider was Gonzalez Hoang MD and you were treated for POSS HIGH BLOOD SUGAR, LEG RASH. The emergency medical care you received today was directed at your acute symptoms. If you were prescribed any medication, please fill it and take as directed. It may take several days for your symptoms to resolve. Return to the Emergency Department if your symptoms worsen, do not improve, or if you have any other problems. Please contact your doctor or call one of the physicians/clinics you have been referred to that are listed on the Patient Visit Information form that is included in your discharge packet. Bring any paperwork you were given at discharge with you along with any medications you are taking to your follow up visit. Our treatment cannot replace ongoing medical care by a primary care provider outside of the emergency department. Thank you for allowing the [facility] team to be part of your care today. If you had an X-Ray or CT scan: A Radiologist will review the ED reading if any change in treatment is needed we will contact you. If you had a blood, urine, or wound culture: It will take several days for the results, if any change in treatment is needed we will contact you. If you had an STI test: It will take 48 hours for the results. Please call after 1 week if you have not heard back. Prescriptions: Hydrocortisone 2.5% 1 applic TOP BID PRN #15 gm PRN Reason: rash on both lower legs Nitrofurantoin Macrocrystals [Macrobid] 100 mg PO BID #14 cap Instructions: Urinary Tract Infection, Adult (DC) Forms: SendtoNews (Lao) Print Language: VIETNAMESE
[2018-02-13 16:23] LABS: BASO # 0.1 K/uL (0.0-0.2); BASO % 0.6 % (0.0-2.0); EOS # 0.1 K/uL (0.0-0.7); EOS % 1.3 % (0.0-4.0); HEMOGLOBIN 10.7 g/dL (12.0-16.0); LYMPH # 1.4 K/uL (1.0-4.3); LYMPH % 16.7 % (20.0-40.0); MEAN CORPUSCULAR HEMOGLOBIN 29.4 pg (27.0-31.0); MEAN CORPUSCULAR HGB CONC 32.6 g/dL (33.0-37.0); MEAN PLATELET VOLUME 9.2 fl (7.2-11.7); MONO # 0.6 K/uL (0.0-0.8); MONO % 7.4 % (0.0-10.0); NEUT # 6.4 K/uL (1.8-7.0); RBC 3.65 Mil/uL (3.80-5.20); RED CELL DISTRIBUTION WIDTH 15.5 % (11.5-14.5); WHITE BLOOD COUNT 8.6 K/uL (4.8-10.8)
[2018-02-13 16:47] LABS: ALB/GLOB RATIO 1.1 (1.0-2.1); ALBUMIN 3.9 g/dL (3.5-5.0); CALCIUM 9.1 mg/dL (8.4-10.2)
--- NOTE | 2018-02-13 17:21 | CP.PCM.CON ---
History of Present Illness - History of Present Illness History of Present Illness: Podiatry consult note for Dr. Dong 72 year old female seen and evaluated for a nonpruritus rash on both lower extremities that seems to resolve after applying eucerin. Patient reports they went to see Dr. Babb and while at the office, her finger stick was 400. They were subsequently advised to come to the ED. 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 Denies CP, SOB, fever, trauma, or leg pain. Patient complains of itching to the area Review of Systems - Review of Systems All systems: reviewed and no additional remarkable complaints except Review of Systems: As per HPI Past Patient History - Past Medical History & Family History Past Medical History?: Yes - Past Social History Smoking Status: Never Smoked - CARDIAC Hx Congestive Heart Failure: Yes Hx Hypercholesterolemia: Yes Hx Hypertension: Yes Hx Peripheral Edema: Yes - PULMONARY Hx Pneumonia: Yes (Aspiration pnuemonia) - NEUROLOGICAL Hx Alzheimer's Disease: Yes Hx Dementia: Yes - HEENT Hx HEENT Problems: No - RENAL Hx Chronic Kidney Disease: Yes - ENDOCRINE/METABOLIC Hx Endocrine Disorders: Yes Hx Diabetes Mellitus Type 2: Yes - HEMATOLOGICAL/ONCOLOGICAL Hx Anemia: Yes Hx Human Immunodeficiency Virus (HIV): No - INTEGUMENTARY Hx Dermatological Problems: Yes - MUSCULOSKELETAL/RHEUMATOLOGICAL Hx Arthritis: Yes - GASTROINTESTINAL Hx Gastrointestinal Disorders: Yes Hx Gastroesophageal Reflux: Yes Hx Hemorrhoids: Yes Other/Comment: Hx rectal bleeding - GENITOURINARY/GYNECOLOGICAL Hx Genitourinary Disorders: Yes Hx Urinary Tract Infection: Yes - PSYCHIATRIC Hx Depression: Yes - SURGICAL HISTORY Hx Surgeries: Yes Other/Comment: Hx PEG tube insertion and removal - ANESTHESIA Hx Anesthesia: Yes Hx Anesthesia Reactions: No Hx Malignant Hyperthermia: No Meds Home Medications: Home Medication List Medication Instructions Recorded Confirmed Type Hydrocortisone 2.5% 1 applic TOP BID PRN #15 gm 02/13/18 Rx Nitrofurantoin Macrocrystals 100 mg PO BID #14 cap 02/13/18 Rx [Macrobid] Allergies/Adverse Reactions: Allergies Allergy/AdvReac Type Severity Reaction Status Date / Time oxycodone Allergy RASH Verified 12/18/17 14:46 - Medications Medications: Current Medications Sodium Chloride (Sodium Chloride 0.9%) 1,000 mls @ 200 mls/hr IV .Q5H STA Stop: 02/13/18 20:52 Last Admin: 02/13/18 16:34 Dose: 200 mls/hr Physical Exam - Constitutional Appears: Well, Non-toxic, No Acute Distress - Head Exam Head Exam: ATRAUMATIC, NORMOCEPHALIC - Extremities Exam Additional comments: Bilateral Lower Extremity Exam VASC: DP and PT pulses palpable, CFT less than 3 seconds, TG within normal limits, no edema noted DERM: erythematous Rash noted to bilateral lower extremities on medial surface without break in skin integrity, no open lesions, no signs of infection, no drainage, no malodor ORTHO: no pain on palpation noted, MSK 5/5 - Neurological Exam Neurological exam: Alert, Oriented x3 - Psychiatric Exam Psychiatric exam: Normal Affect, Normal Mood Results - Vital Signs Recent Vital Signs: Last Vital Signs Temp 97.8 F 02/13/18 14:51 Pulse 72 02/13/18 14:51 Resp 18 02/13/18 14:51 BP 151/73 H 02/13/18 14:51 Pulse Ox 100 02/13/18 15:55 - Labs Result Diagrams: 02/13/18 16:19 02/13/18 16:19 Labs: Laboratory Results - last 24 hr 02/13/18 02/13/18 02/13/18 16:11 16:19 16:19 WBC 8.6 RBC 3.65 L Hgb 10.7 L Hct 32.8 L MCV 90.0 MCH 29.4 MCHC 32.6 L RDW 15.5 H Plt Count 194 MPV 9.2 Neut % (Auto) 74.0 Lymph % (Auto) 16.7 L [place] % (Auto) 7.4 Eos % (Auto) 1.3 Baso % (Auto) 0.6 Neut # (Auto) 6.4 Lymph # (Auto) 1.4 [place] # (Auto) 0.6 Eos # (Auto) 0.1 Baso # (Auto) 0.1 Sodium 138 Potassium 4.9 Chloride 105 Carbon Dioxide 25 Anion Gap 13 BUN 42 H Creatinine 1.2 Est GFR ( Amer) 54 Est GFR (Non-Af Amer) 44 POC Glucose (mg/dL) 89 Random Glucose 98 Calcium 9.1 Total Bilirubin 0.2 AST 32 ALT 25 Alkaline Phosphatase 61 Total Protein 7.5 Albumin 3.9 Globulin 3.6 Albumin/Globulin Ratio 1.1 Assessment & Plan - Assessment and Plan (Free Text) Assessment: 72 y/o female patient was seen and evaluated for rash to bilateral lower extremities Plan: Patient seen and evaluated Plan discussed with Dr Dong Chart, labs and vitals were stable Patient to be discharged home on Hydrocortisone cream for application to the rash Patient to follow up with private upkeep mechanic, patient spouse states they have appointment scheduled Patient stable for discharge from podiatry standpoint Thank you for the consult - Date & Time Date: 02/15/18 Time: 01:17
[2018-02-13 17:26] VITALS: BP 148/73; PULSE 78; RESP 16
[2018-02-13 18:39] VITALS: O2SAT 100
== END 2018-02-13 19:00 | disposition home or self-care (01) ==
LOC: H.ER 14:45
DX: R21 Rash and other nonspecific skin eruption (principal); N39.0 Urinary tract infection, site not specified; D64.9 Anemia, unspecified; E11.22 Type 2 diabetes mellitus with diabetic chronic kidney disease; E78.00 Pure hypercholesterolemia, unspecified; F02.80 Dementia in other diseases classified elsewhere, unspecified severity, without behavioral disturbance, psychotic disturbance, mood disturbance, and anxiety; F32.9 Major depressive disorder, single episode, unspecified; G30.9 Alzheimer's disease, unspecified; I13.0 Hypertensive heart and chronic kidney disease with heart failure and stage 1 through stage 4 chronic kidney disease, or unspecified chronic kidney disease; K21.9 Gastro-esophageal reflux disease without esophagitis; Z79.4 Long term (current) use of insulin; Z86.73 Personal history of transient ischemic attack (TIA), and cerebral infarction without residual deficits
CPT/HCPCS: 80053; 82948; 85025; 87086; 99285; J7030

== ENCOUNTER 2018-02-24 14:10 | Inpatient (IN) | payer OTHER ==
[2018-02-24] MEDS ORDERED: Iodixanol 320 MG/ML 100 ML BOTTLE IV ONE (14:30)
[2018-02-24] MEDS ORDERED: Sodium Chloride 0.9% 50 ML IV ONE (14:30)
[2018-02-24] MEDS ORDERED: Sodium Chloride 0.9% 1,000 ML IV SCH (14:30)
--- NOTE | 2018-02-24 14:36 | ED PDOC ---
HPI:STROKE - Time Time: 14:30 (limited H and P due to pt. condition) - Historian Historian: Patient, Spouse - Chief Complaint Chief Complaint: Slurred speech - Onset Date: 02/23/18 Time: 00:00 Onset: This morning - Timing Timing: Constant - TPA Positive for Contraindication: Yes - Notes: Notes:: 72 y/o female with a PMHX of diabetes, dementia, hypertension, high cholesterol, and Alzheimer's disease, is brought to the ED by EMS for slurred speech associated with weakness. Patient usually walk with a cane as she has the inability to ambulate due to loss of balance. Spouse states patient was last well at midnight then woke up this morning at 10:30 with difficulty speaking. Spouse reports of patient had a stroke last year and had been living at a shelter two months ago but currently lives with him. Otherwise, no denies dizziness, chest pain, dyspnea. General weakness all over. No headache. Pt. with limited ability to speak. PMD: Dr. Pito Babb NIHSS Stroke Scale - Date/Time Evaluation Performed Date Performed: 02/24/18 Time Performed: 14:22 When Was NIHSS Performed: Baseline - How Severe is the Stroke Level of Consciousness: 0=Alert LOC to Questions: 1=One correct LOC to commands: 0=Obeys both correctly Best Gaze: 0=Normal Visual: 0=No visual loss Facial: 0=Normal Motor Arm - Left: 0=No drift Motor Arm - Right: 0=No drift Motor Leg - Left: 0=No drift Motor Leg - Right: 0=No drift Limb Ataxia: 0=Absent Sensory: 0=Normal Best Language: 2=Severe aphasia Dysarthia: 1=Mild to moderate slurring Extinction & Inattention (Neglect): 0=Normal, no object Score: 4 rTPA Inclusion/Exclusion - Refusal of Treatment Patient Refused Treatment: No - Inclusion Criteria for Altepase Patient is 18 years or Older: Yes The Clinical Diagnosis of Ischemic Stroke That is Causing a Potentially Disabling Neurological Deficit: No Time of Onset is Well Established to be Less Than 270 Minute Before Treatment Would Begin: No Risk/Benefit Discussed With Patient/Family Member Present: No Past Medical History Reviewed: Historical Data, Nursing Documentation, Vital Signs Vital Signs: Last Vital Signs Temp 98.1 F 02/24/18 14:16 Pulse 73 02/24/18 14:16 Resp 16 02/24/18 14:16 BP 193/80 H 02/24/18 14:16 Pulse Ox 99 02/24/18 14:16 - Medical History PMH: Alzheimer's Disease, Anemia, Arthritis, CHF, CVA, Dementia, Depression, Diabetes (type 2, NIDDM), HTN, Hypercholesterolemia, Hyperlipidemia, Peripheral Edema, Pneumonia (Aspiration pnuemonia), Chronic Kidney Disease Denies: HIV - Surgical History Surgical History: No Surg Hx - Family History Family History: States: Unknown Family Hx - Living Arrangements Living Arrangements: With Family - Immunization History Hx Tetanus Toxoid Vaccination: No Hx Influenza Vaccination: No Hx Pneumococcal Vaccination: No - Home Medications Home Medications: Ambulatory Orders Medication Instructions Recorded Aspirin [Ecotrin] 81 mg PO DAILY #30 tabec 11/09/17 Donepezil [Aricept] 5 mg PO HS #30 tab 11/09/17 Ferrous Sulfate [Feosol] 325 mg PO TID #90 tab 11/09/17 Furosemide [Lasix] 40 mg PO DAILY #30 tab 11/09/17 Rosuvastatin Calcium [Crestor] 20 mg PO DAILY #30 tablet 11/09/17 Docusate Sodium [Colace] 100 mg PO BID 12/09/17 Enalapril Maleate [Vasotec] 5 mg PO Q12 12/09/17 Ergocalciferol (Vitamin D2) 50,000 unit PO FR 12/09/17 [Vitamin D2] Sertraline [Zoloft] 25 mg PO HS 12/09/17 Spironolactone [Aldactone] 12.5 mg PO DAILY 12/09/17 Carvedilol [Coreg] 12.5 mg PO Q12 #60 tab 12/11/17 SITagliptin [Januvia] 100 mg PO DAILY #30 tab 12/19/17 Hydrocortisone 2.5% 1 applic TOP BID PRN #15 gm 02/13/18 Nitrofurantoin Macrocrystals 100 mg PO BID #14 cap 02/13/18 [Macrobid] - Allergies Allergies/Adverse Reactions: Allergies Allergy/AdvReac Type Severity Reaction Status Date / Time oxycodone Allergy RASH Verified 02/24/18 14:16 Review of Systems ROS Statement: Except As Marked, All Systems Reviewed And Found Negative (limite d, but gotten partially from and pt. responses) Cardiovascular: Negative for: Chest Pain Respiratory: Positive for: Shortness of Breath (but no changes from baseline ) Neurological: Positive for: Weakness, Change in Speech (slurring ). Negative for: Dizziness Physical Exam - Reviewed Nursing Documentation Reviewed: Yes Vital Signs Reviewed: Yes - Physical Exam Appears: Negative for: No Acute Distress Head Exam: Positive for: ATRAUMATIC, NORMAL INSPECTION, NORMOCEPHALIC Skin: Positive for: Normal Color Eye Exam: Positive for: EOMI, Normal appearance, PERRL ENT: Positive for: Normal ENT Inspection Neck: Positive for: Normal, Painless ROM Cardiovascular/Chest: Positive for: Regular Rate, Rhythm. Negative for: Bradycardia, Tachycardia Respiratory: Positive for: Normal Breath Sounds. Negative for: Respiratory Distress Gastrointestinal/Abdominal: Positive for: Normal Exam, Soft. Negative for: Tenderness Back: Positive for: Normal Inspection. Negative for: L CVA Tenderness, R CVA Tenderness Extremity: Positive for: Normal ROM (x4). Negative for: Tenderness, Pedal Edema Neurologic/Psych: Positive for: Alert, senior electronics technician II-XII (grossly intact), Oriented, Aphasia. Negative for: Motor/Sensory Deficits (5/5 strength ), Facial Droop - Laboratory Results Result Diagrams: 02/24/18 15:05 02/24/18 15:05 Interpretation Of Abn Labs: 34 bun - ECG ECG: Positive for: Interpreted By Me, Viewed By Me ECG Rhythm: Positive for: Normal QRS, Normal ST Segment, Sinus Rhythm O2 Sat by Pulse Oximetry: 99 (RA) Pulse Ox Interpretation: Normal - Radiology X-Ray: Read By Radiologist X-Ray Interpretation: No Acute Disease - CT Scan/US ct Other Rad Studies (CT/US): Read By Radiologist Other Rad Interpretation: no acute - Progress ED Course And Treament: 1645: Stable. AAOx3. Pain free. Medical Decision Making Medical Decision Making: time:1422 Plan: -Labs -Ct Head CTA head EKG Stroke Team Consult Chest XRay Iv Fluids Accucheck Time: [address] Alberts made aware of presentation CT and PE findings. It was concluded that patient is not a thrombolytic candidate nor intervention cand idate. Awaiting CTA results. Dr. Alberts requesting is Aspirin 81mg and Plavix 300mg. 1648: Stable. Spoke with Dr. Frances. Will admit tele. Disposition - Clinical Impression Clinical Impression: CVA (cerebral vascular accident) - Patient ED Disposition Is Patient to be Admitted: Yes Counseled Patient/Family Regarding: Studies Performed, Diagnosis - Disposition Disposition Time: 16:00 Condition: FAIR - Pt Status Changed To: Hospital Disposition Of: Inpatient - Admit Certification Admit to Inpatient:: After my assessment, the patient will require hospitalization for at least two midnights. This is because of the severity of symptoms shown, intensity of services needed, and/or the medical risk in this patient being treated as an outpatient. - POA Present On Arrival: None
--- NOTE | 2018-02-24 14:48 | CT ---
Date of service: 02/24/2018 PROCEDURE: CT HEAD WITHOUT CONTRAST. HISTORY: code stroke COMPARISON: Head CT 05/02/2017 and brain MRI 04/16/2017. TECHNIQUE: Axial computed tomography images were obtained through the head/brain without intravenous contrast. Radiation dose: Total exam DLP = 891.57 mGy-cm. This CT exam was performed using one or more of the following dose reduction techniques: Automated exposure control, adjustment of the mA and/or kV according to patient size, and/or use of iterative reconstruction technique. FINDINGS: HEMORRHAGE: No intracranial hemorrhage. BRAIN: Prior subacute right frontal infarct now appears chronic with chronic left basal ganglia lacune reiterated. No cortical edema to suggest an acute or subacute brain infarction at this time. There is no mass effect. Diffuse cerebral atrophy chronic microangiopathy reiterated with unremarkable appearing posterior fossa contents once again, including brainstem. VENTRICLES: Unremarkable. No hydrocephalus. CALVARIUM: Unremarkable. PARANASAL SINUSES: Unremarkable as visualized. No significant inflammatory changes. MASTOID AIR CELLS: Unremarkable as visualized. No inflammatory changes. OTHER FINDINGS: None. IMPRESSION: 1. No definite acute intracranial findings by standard CT criteria. Follow-up CT or MRI are advised. 2. Small chronic right frontal infarct now evident. Chronic left basal ganglia lacune again identified. 3. Age-related degenerative changes are reiterated. Findings reviewed and discussed with Dr. Perez with written down and read back verification 02/24/2018 2:40 p.m..
--- NOTE | 2018-02-24 15:31 | CT ---
Date of service: 02/24/2018 PROCEDURE: CT Angiography of the Brain and Neck. HISTORY: cva eval COMPARISON: None available. TECHNIQUE: CT angiography of the head and neck was performed following intravenous contrast administration. Coronal and sagittal maximum intensity projection reformatted images were generated. Contrast Dose: Visipaque 320, 99.1 cc Radiation dose: Total exam DLP = 524.53 mGy-cm. This CT exam was performed using one or more of the following dose reduction techniques: Automated exposure control, adjustment of the mA and/or kV according to patient size, and/or use of iterative reconstruction technique. FINDINGS: INTERNAL CEREBRAL ARTERIES: Atherosclerotic bilateral cavernous internal carotid arteries without significant stenosis appreciable grossly. The skull base, petrous, and supraclinoid segments are bilaterally widely patent. ANTERIOR CEREBRAL ARTERIES: Unremarkable. A1 and A2 segments are widely patent. Smaller distal branches unremarkable, as visualized. MIDDLE CEREBRAL ARTERIES: Unremarkable. M1 and M2 segments are widely patent. Perisylvian branches grossly symmetric. POSTERIOR CIRCULATION: Basilar Artery: Hypoplastic basilar artery. Widely patent bilateral posterior communicating arteries nevertheless. Patent anterior communicating artery. Distal Vertebral Arteries: Proximal intracranial stenosis at the level of the foramen magnum. Posterior Cerebral Arteries: Unremarkable. Posterior Inferior Cerebellar Arteries: Unremarkable. NECK CTA: Common Carotid arteries: The bilateral common carotid appear widely patent from their origins to their bifurcations with no significant stenosis appreciated. No evidence to suggest common carotid artery dissection. Internal Carotid arteries: No significant stenosis is appreciated throughout the cervical internal carotid artery segments bilaterally and there is no evidence of dissection either. External Carotid arteries: Appear unremarkable bilaterally. Vertebral arteries: The bilateral vertebral arteries are patent though the right vertebral artery appears hypoplastic. Moderate to severe stenosis of the distal left vertebral artery the proximal the foramen magnum. ANEURYSM/ VASCULAR MALFORMATIONS: None. OTHER FINDINGS: None. IMPRESSION: 1. 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 2. Moderate to severe stenoses at the distal left vertebral artery including intracranial segment proximal to the basilar artery. However, there are widely patent bilateral posterior communicating arteries. 3. Limited bilateral cavernous ICA atherosclerosis. No significant intracranial findings otherwise. 4. Moderate to severe distal left vertebral artery stenosis immediately proximal to foramen magnum. Hypoplastic but patent right vertebral artery. 5. No definitive arterial occlusion in the Neck or Brain as discussed above.
[2018-02-24 15:33] LABS: BASO % 0.5 % (0.0-2.0); EOS # 0.1 K/uL (0.0-0.7); EOS % 1.8 % (0.0-4.0); HEMOGLOBIN 10.9 g/dL (12.0-16.0); LYMPH # 1.4 K/uL (1.0-4.3); LYMPH % 19.1 % (20.0-40.0); MEAN CELL VOLUME 91.6 fl (81.0-99.0); MEAN CORPUSCULAR HEMOGLOBIN 29.7 pg (27.0-31.0); MEAN CORPUSCULAR HGB CONC 32.5 g/dL (33.0-37.0); MEAN PLATELET VOLUME 9.5 fl (7.2-11.7); MONO # 0.5 K/uL (0.0-0.8); MONO % 6.6 % (0.0-10.0); NEUT # 5.4 K/uL (1.8-7.0); NRBC % 0.1 % (0.0-0.0); RBC 3.67 Mil/uL (3.80-5.20); RED CELL DISTRIBUTION WIDTH 15.5 % (11.5-14.5); WHITE BLOOD COUNT 7.5 K/uL (4.8-10.8)
--- NOTE | 2018-02-24 15:57 | RAD ---
Date of service: 02/24/2018 HISTORY: Code Stroke COMPARISON: Portable chest 12/18/2017. FINDINGS: LUNGS: No active pulmonary disease. Trace fibrosis again seen at mid lung zones minimally, bilaterally. PLEURA: No significant pleural effusion identified, no pneumothorax apparent. CARDIOVASCULAR: Calcific atherosclerotic changes are seen related to the thoracic aorta. Cardiomegaly appears stable. No definite pulmonary vascular congestion evident. No pulmonary vascular congestion. OSSEOUS STRUCTURES: No significant abnormalities. VISUALIZED UPPER ABDOMEN: Elevated right hemidiaphragm reiterated. OTHER FINDINGS: None. IMPRESSION: Cardiomegaly and elevated right hemidiaphragm reiterated. No acute cardiopulmonary disease appreciable at this time. Trace pulmonary fibrosis at the mid lung zones again evident minimally bilaterally.
[2018-02-24 15:58] LABS: LDL CHOLESTEROL 90 mg/dL (0-129)
[2018-02-24 16:10] LABS: ALB/GLOB RATIO 1.1 (1.0-2.1); ALBUMIN 3.8 g/dL (3.5-5.0); ALT/SGPT 32 U/L (9-52); AST/SGOT 24 U/L (14-36); BLOOD UREA NITROGEN 34 mg/dl (7-17); CALCIUM 9.1 mg/dL (8.4-10.2); GFR NON-AFRICAN AMERICAN > 60; HDL CHOLESTEROL 61 MG/DL (30-70)
[2018-02-24 16:27] LABS: INR 0.9; PROTHROMBIN TIME 10.7 Seconds (9.8-13.1)
[2018-02-24 16:29] LABS: PARTIAL THROMBOPLASTIN TIME 27.2 Seconds (25.6-37.1)
--- NOTE | 2018-02-24 17:55 | CP.PCM.CON ---
History of Present Illness - History of Present Illness History of Present Illness: Neurology Consultation Note: Mrs. Black is a 72-year-old woman, who was referred to me by Dr. Perez, with a past medical history of HTN, DM, HLD, dementia, previous strokes, who was last at her baseline last night and was found to have speech difficulty today. She was brought in to the ED and was not a candidate for IV tPA due to being outside the time window. Non-contrast CT scan of the head did not show any acute findings. CTA of the head/neck showed left vertebral artery severe stenosis, but no large vessel occlusion. Her initial NIHSS was thought to be a 4-5. Review of Systems - Review of Systems Systems not reviewed;Unavailable: Altered Mental Status Past Patient History - Past Medical History & Family History Past Medical History?: Yes - Past Social History Smoking Status: Never Smoked - CARDIAC Hx Congestive Heart Failure: Yes Hx Hypercholesterolemia: Yes Hx Hypertension: Yes Hx Peripheral Edema: Yes - PULMONARY Hx Pneumonia: Yes (Aspiration pnuemonia) - NEUROLOGICAL Hx Alzheimer's Disease: Yes Hx Dementia: Yes - HEENT Hx HEENT Problems: No - RENAL Hx Chronic Kidney Disease: Yes - ENDOCRINE/METABOLIC Hx Endocrine Disorders: Yes Hx Diabetes Mellitus Type 2: Yes - HEMATOLOGICAL/ONCOLOGICAL Hx Anemia: Yes Hx Human Immunodeficiency Virus (HIV): No - INTEGUMENTARY Hx Dermatological Problems: Yes - MUSCULOSKELETAL/RHEUMATOLOGICAL Hx Arthritis: Yes - GASTROINTESTINAL Hx Gastrointestinal Disorders: Yes Hx Gastroesophageal Reflux: Yes Hx Hemorrhoids: Yes Other/Comment: Hx rectal bleeding - GENITOURINARY/GYNECOLOGICAL Hx Genitourinary Disorders: Yes Hx Urinary Tract Infection: Yes - PSYCHIATRIC Hx Depression: Yes - SURGICAL HISTORY Hx Surgeries: Yes Other/Comment: Hx PEG tube insertion and removal - ANESTHESIA Hx Anesthesia: Yes Hx Anesthesia Reactions: No Hx Malignant Hyperthermia: No Meds Allergies/Adverse Reactions: Allergies Allergy/AdvReac Type Severity Reaction Status Date / Time oxycodone Allergy RASH Verified 02/24/18 14:16 - Medications Medications: Current Medications Aspirin (Aspirin Chewable) 81 mg PO DAILY BRIAN Atorvastatin Calcium (Lipitor) 40 mg PO DAILY BRIAN Clopidogrel Bisulfate (Plavix) 75 mg PO DAILY BRIAN Docusate Sodium (Colace) 100 mg PO BID BRIAN Donepezil HCl (Aricept) 5 mg PO HS BRIAN Sodium Chloride (Sodium Chloride 0.9%) 1,000 mls @ 100 mls/hr IV .Q10H BRIAN Last Admin: 02/24/18 16:08 Dose: 100 mls/hr Insulin Human Lispro (Humalog) 0 units SC ACHS BRIAN; Protocol Sitagliptin Phosphate (Januvia) 100 mg PO DAILY BRIAN Physical Exam - Constitutional Appears: Well - Head Exam Head Exam: ATRAUMATIC, NORMAL INSPECTION, NORMOCEPHALIC - Eye Exam Eye Exam: EOMI, Normal appearance, PERRL Pupil Exam: NORMAL ACCOMODATION, PERRL - ENT Exam ENT Exam: Mucous Membranes Moist, Normal Exam - Neck Exam Neck exam: Positive for: Normal Inspection - Respiratory Exam Respiratory Exam: Clear to Auscultation Bilateral, NORMAL BREATHING PATTERN - Cardiovascular Exam Cardiovascular Exam: REGULAR RHYTHM, +S1, +S2 - GI/Abdominal Exam GI & Abdominal Exam: Normal Bowel Sounds, Soft. absent: Tenderness - Rectal Exam Rectal Exam: Deferred - Extremities Exam Extremities exam: Positive for: normal inspection - Back Exam Back exam: NORMAL INSPECTION - Neurological Exam Neurological exam: Alert, Altered, CN II-XII Intact, Normal Gait, Reflexes Normal Additional comments: Right side prontator drift noted, speech is aphasic, she answers some questions appropriately. NIHSS = 6 - Psychiatric Exam Psychiatric exam: Normal Affect, Normal Mood - Skin Skin Exam: Dry, Intact, Normal Color, Warm Results - Vital Signs Recent Vital Signs: Last Vital Signs Temp 98 F 02/24/18 15:25 Pulse 73 02/24/18 15:25 Resp 18 02/24/18 15:25 BP 134/77 02/24/18 15:25 Pulse Ox 99 02/24/18 16:50 - Labs Result Diagrams: 02/24/18 15:05 02/24/18 15:05 Labs: Laboratory Results - last 24 hr 02/24/18 02/24/18 02/24/18 15:05 15:05 15:05 WBC 7.5 RBC 3.67 L Hgb 10.9 L Hct 33.7 L MCV 91.6 MCH 29.7 MCHC 32.5 L RDW 15.5 H Plt Count 199 MPV 9.5 Neut % (Auto) 72.0 Lymph % (Auto) 19.1 L [place] % (Auto) 6.6 Eos % (Auto) 1.8 Baso % (Auto) 0.5 Neut # (Auto) 5.4 Lymph # (Auto) 1.4 [place] # (Auto) 0.5 Eos # (Auto) 0.1 Baso # (Auto) 0.0 PT 10.7 INR 0.9 APTT 27.2 Sodium 138 Potassium 5.0 Chloride 104 Carbon Dioxide 26 Anion Gap 13 BUN 34 H Creatinine 0.9 Est GFR ( Amer) > 60 Est GFR (Non-Af Amer) > 60 POC Glucose (mg/dL) Random Glucose 128 H Calcium 9.1 Total Bilirubin 0.2 AST 24 ALT 32 Alkaline Phosphatase 68 Troponin I < 0.0120 Total Protein 7.2 Albumin 3.8 Globulin 3.4 Albumin/Globulin Ratio 1.1 Triglycerides 301 H D Cholesterol 202 H LDL Cholesterol Direct 90 HDL Cholesterol 61 Blood Type Antibody Screen BBK History Checked 02/24/18 02/24/18 15:05 15:15 WBC RBC Hgb Hct MCV MCH MCHC RDW Plt Count MPV Neut % (Auto) Lymph % (Auto) [place] % (Auto) Eos % (Auto) Baso % (Auto) Neut # (Auto) Lymph # (Auto) [place] # (Auto) Eos # (Auto) Baso # (Auto) PT INR APTT Sodium Potassium Chloride Carbon Dioxide Anion Gap BUN Creatinine Est GFR ( Amer) Est GFR (Non-Af Amer) POC Glucose (mg/dL) 119 H Random Glucose Calcium Total Bilirubin AST ALT Alkaline Phosphatase Troponin I Total Protein Albumin Globulin Albumin/Globulin Ratio Triglycerides Cholesterol LDL Cholesterol Direct HDL Cholesterol Blood Type A POSITIVE Antibody Screen Negative BBK History Checked Patient has bt Assessment & Plan (1) CVA (cerebral vascular accident) Assessment and Plan: Likely a lacunar infarct involving the left basal ganglia. I recommend the followin. Telemetry 2. MRI brain without contrast 3. Echocardiogram with bubble study 4. Carotid ultrasounds bilaterally. 5. Check hemoglobin A-1 C, lipid panel, ESR, CRP, JOSE ELIAS, B12, folate, TSH, vitamin D levels. 6. Continue dual antiplatelet therapy with aspirin 81 mg daily and Plavix 75 mg daily, after a loading dose of Plavix 300 mg today along with aspirin 81 mg now. 7. Q 2 hour neuro-checks. 8. Statin for goal LDL less than 70. 9. Permissive hypertension, do not treat blood pressure less than 220/110 (may start to normalize 48-hours after symptom onset). 10. IV fluids normal saline at 100 mL per hour. 11. NPO, speech and swallow evaluation. 12. PT/rehab. Please do not hesitate to call back with any new developments, data updates or questions. Thank you for the opportunity to participate in the care of this patient. Status: Chronic Priority: High
--- NOTE | 2018-02-24 18:40 | CP.PCM.HP ---
<Joan Curry - Last Filed: 02/24/18 18:53> History of Present Illness - History of Present Illness History of Present Illness: Brian ID #[id number] 72 y/o [place]-speaking female w/ pmhx of dementia, DM, HTN, HLD presents w/ slurred speech, weakness. [facility], but has been living at home w/ spouse for 2 months. History is limited as patient is a poor historian; history obtained from prior charts and ED physician. PMD: Dr. Babb Pmhx: Alzheimer's, HTN, HLD Surghx: peg placement/removal FamHx: non-contributory Socialhx: lives w/ spouse at home Allergies: Oxycodone Code: Full Code Next of Kin: , Yanick Khalil, Present on Admission - Present on Admission Any Indicators Present on Admission: No History of DVT/PE: No History of Uncontrolled Diabetes: No Urinary Catheter: No Decubitus Ulcer Present: No Review of Systems - Review of Systems Systems not reviewed;Unavailable: Dementia - Neurological Neurological: Abnormal Speech, Behavioral Changes, Confusion, Disequilibrium Past Patient History - Past Medical History & Family History Past Medical History?: Yes - Past Social History Smoking Status: Never Smoked - CARDIAC Hx Congestive Heart Failure: Yes Hx Hypercholesterolemia: Yes Hx Hypertension: Yes Hx Peripheral Edema: Yes - PULMONARY Hx Pneumonia: Yes (Aspiration pnuemonia) - NEUROLOGICAL Hx Alzheimer's Disease: Yes Hx Dementia: Yes - HEENT Hx HEENT Problems: No - RENAL Hx Chronic Kidney Disease: Yes - ENDOCRINE/METABOLIC Hx Endocrine Disorders: Yes Hx Diabetes Mellitus Type 2: Yes - HEMATOLOGICAL/ONCOLOGICAL Hx Anemia: Yes Hx Human Immunodeficiency Virus (HIV): No - INTEGUMENTARY Hx Dermatological Problems: Yes - MUSCULOSKELETAL/RHEUMATOLOGICAL Hx Arthritis: Yes - GASTROINTESTINAL Hx Gastrointestinal Disorders: Yes Hx Gastroesophageal Reflux: Yes Hx Hemorrhoids: Yes Other/Comment: Hx rectal bleeding - GENITOURINARY/GYNECOLOGICAL Hx Genitourinary Disorders: Yes Hx Urinary Tract Infection: Yes - PSYCHIATRIC Hx Depression: Yes - SURGICAL HISTORY Hx Surgeries: Yes Other/Comment: Hx PEG tube insertion and removal - ANESTHESIA Hx Anesthesia: Yes Hx Anesthesia Reactions: No Hx Malignant Hyperthermia: No Meds Allergies/Adverse Reactions: Allergies Allergy/AdvReac Type Severity Reaction Status Date / Time oxycodone Allergy RASH Verified 02/24/18 14:16 Physical Exam - Constitutional Appears: No Acute Distress, Confused - Head Exam Head Exam: ATRAUMATIC - Eye Exam Pupil Exam: Miosis - ENT Exam ENT Exam: Mucous Membranes Dry - Respiratory Exam Respiratory Exam: Clear to Auscultation Bilateral, NORMAL BREATHING PATTERN - Cardiovascular Exam Cardiovascular Exam: REGULAR RHYTHM, +S1, +S2 - Neurological Exam Neurological exam: Alert, Altered - Skin Skin Exam: Dry Results - Vital Signs Recent Vital Signs: Last Vital Signs Temp 98 F 02/24/18 15:25 Pulse 73 02/24/18 15:25 Resp 18 02/24/18 15:25 BP 134/77 02/24/18 15:25 Pulse Ox 99 02/24/18 16:50 - Labs Result Diagrams: 02/24/18 15:05 02/24/18 15:05 Labs: Laboratory Results - last 24 hr 02/24/18 02/24/18 02/24/18 15:05 15:05 15:05 WBC 7.5 RBC 3.67 L Hgb 10.9 L Hct 33.7 L MCV 91.6 MCH 29.7 MCHC 32.5 L RDW 15.5 H Plt Count 199 MPV 9.5 Neut % (Auto) 72.0 Lymph % (Auto) 19.1 L [place] % (Auto) 6.6 Eos % (Auto) 1.8 Baso % (Auto) 0.5 Neut # (Auto) 5.4 Lymph # (Auto) 1.4 [place] # (Auto) 0.5 Eos # (Auto) 0.1 Baso # (Auto) 0.0 PT 10.7 INR 0.9 APTT 27.2 Sodium 138 Potassium 5.0 Chloride 104 Carbon Dioxide 26 Anion Gap 13 BUN 34 H Creatinine 0.9 Est GFR ( Amer) > 60 Est GFR (Non-Af Amer) > 60 POC Glucose (mg/dL) Random Glucose 128 H Calcium 9.1 Total Bilirubin 0.2 AST 24 ALT 32 Alkaline Phosphatase 68 Troponin I < 0.0120 Total Protein 7.2 Albumin 3.8 Globulin 3.4 Albumin/Globulin Ratio 1.1 Triglycerides 301 H D Cholesterol 202 H LDL Cholesterol Direct 90 HDL Cholesterol 61 Blood Type Antibody Screen BBK History Checked 02/24/18 02/24/18 15:05 15:15 WBC RBC Hgb Hct MCV MCH MCHC RDW Plt Count MPV Neut % (Auto) Lymph % (Auto) [place] % (Auto) Eos % (Auto) Baso % (Auto) Neut # (Auto) Lymph # (Auto) [place] # (Auto) Eos # (Auto) Baso # (Auto) PT INR APTT Sodium Potassium Chloride Carbon Dioxide Anion Gap BUN Creatinine Est GFR ( Amer) Est GFR (Non-Af Amer) POC Glucose (mg/dL) 119 H Random Glucose Calcium Total Bilirubin AST ALT Alkaline Phosphatase Troponin I Total Protein Albumin Globulin Albumin/Globulin Ratio Triglycerides Cholesterol LDL Cholesterol Direct HDL Cholesterol Blood Type A POSITIVE Antibody Screen Negative BBK History Checked Patient has bt Assessment & Plan - Assessment and Plan (Free Text) Assessment: 72 y/o female w/ pmhx of dementia, HLD, CVA, CHF, DM admitted w/ slurred speech to r/o stroke. Plan: Slurred Speech Admit to telemetry Head CT: No definite acute intracranial findings. Recommend f/u CT or MRI Head/Neck CTA: No definitive arterial occlusion in the neck or brain Asprin 81 mg PO QD s/p Plavix 300mg x 1, Cont w/ Plavix 75mg PO QD Atorvastatin 40mg PO QD Follow lipid profile MRI w/o contrast in 24 hours Neurology consulted; appreciate recs EKG in ED: Normal sinus rhythm F/u CBC, BMP in AM f/u echo and carotid u/s PT/OT eval/therapy ordered Hx of Alzehimer's cont home meds Donepezil 5mg PO HS Hx of Diabetes Accuchecks ACHS Follow A1C Insulin Lispero ACHS median dose Cont. Jenuvia 100mg PO QD Diet: Speech/swallow eval: impaired swallowing recommends dysphagia diet DVT prophylaxis: Lovenox 40 mg SC QD <Katherine Frances - Last Filed: 02/25/18 14:45> Results - Vital Signs Recent Vital Signs: Last Vital Signs Temp 98.5 F 02/25/18 12:23 Pulse 78 02/25/18 12:23 Resp 78 H 02/25/18 12:23 BP 181/89 H 02/25/18 12:23 Pulse Ox 98 02/25/18 12:23 - Labs Result Diagrams: 02/25/18 05:30 02/25/18 05:30 Labs: Laboratory Results - last 24 hr 02/24/18 02/24/18 02/24/18 15:05 15:05 15:05 WBC 7.5 RBC 3.67 L Hgb 10.9 L Hct 33.7 L MCV 91.6 MCH 29.7 MCHC 32.5 L RDW 15.5 H Plt Count 199 MPV 9.5 Neut % (Auto) 72.0 Lymph % (Auto) 19.1 L [place] % (Auto) 6.6 Eos % (Auto) 1.8 Baso % (Auto) 0.5 Neut # (Auto) 5.4 Lymph # (Auto) 1.4 [place] # (Auto) 0.5 Eos # (Auto) 0.1 Baso # (Auto) 0.0 PT INR APTT Sodium 138 Potassium 5.0 Chloride 104 Carbon Dioxide 26 Anion Gap 13 BUN 34 H Creatinine 0.9 Est GFR ( Amer) > 60 Est GFR (Non-Af Amer) > 60 POC Glucose (mg/dL) Random Glucose 128 H Hemoglobin A1c 10.2 H D Calcium 9.1 Total Bilirubin 0.2 AST 24 ALT 32 Alkaline Phosphatase 68 Troponin I < 0.0120 Total Protein 7.2 Albumin 3.8 Globulin 3.4 Albumin/Globulin Ratio 1.1 Triglycerides 301 H D Cholesterol 202 H LDL Cholesterol Direct 90 HDL Cholesterol 61 Blood Type Antibody Screen BBK History Checked 02/24/18 02/24/18 02/24/18 15:05 15:05 15:15 WBC RBC Hgb Hct MCV MCH MCHC RDW Plt Count MPV Neut % (Auto) Lymph % (Auto) [place] % (Auto) Eos % (Auto) Baso % (Auto) Neut # (Auto) Lymph # (Auto) [place] # (Auto) Eos # (Auto) Baso # (Auto) PT 10.7 INR 0.9 APTT 27.2 Sodium Potassium Chloride Carbon Dioxide Anion Gap BUN Creatinine Est GFR ( Amer) Est GFR (Non-Af Amer) POC Glucose (mg/dL) 119 H Random Glucose Hemoglobin A1c Calcium Total Bilirubin AST ALT Alkaline Phosphatase Troponin I Total Protein Albumin Globulin Albumin/Globulin Ratio Triglycerides Cholesterol LDL Cholesterol Direct HDL Cholesterol Blood Type A POSITIVE Antibody Screen Negative BBK History Checked Patient has bt 02/24/18 02/25/18 02/25/18 21:17 05:30 05:30 WBC 7.0 RBC 3.84 Hgb 11.2 L Hct 34.5 MCV 89.8 MCH 29.1 MCHC 32.4 L RDW 15.7 H Plt Count 175 MPV Neut % (Auto) Lymph % (Auto) [place] % (Auto) Eos % (Auto) Baso % (Auto) Neut # (Auto) Lymph # (Auto) [place] # (Auto) Eos # (Auto) Baso # (Auto) PT INR APTT Sodium 139 Potassium 4.5 Chloride 104 Carbon Dioxide 25 Anion Gap 15 BUN 30 H Creatinine 0.9 Est GFR ( Amer) > 60 Est GFR (Non-Af Amer) > 60 POC Glucose (mg/dL) 119 H Random Glucose 131 H Hemoglobin A1c Calcium 9.0 Total Bilirubin AST ALT Alkaline Phosphatase Troponin I Total Protein Albumin Globulin Albumin/Globulin Ratio Triglycerides 200 H D Cholesterol 196 LDL Cholesterol Direct 95 HDL Cholesterol 63 Blood Type Antibody Screen BBK History Checked 02/25/18 02/25/18 06:02 11:38 WBC RBC Hgb Hct MCV MCH MCHC RDW Plt Count MPV Neut % (Auto) Lymph % (Auto) [place] % (Auto) Eos % (Auto) Baso % (Auto) Neut # (Auto) Lymph # (Auto) [place] # (Auto) Eos # (Auto) Baso # (Auto) PT INR APTT Sodium Potassium Chloride Carbon Dioxide Anion Gap BUN Creatinine Est GFR ( Amer) Est GFR (Non-Af Amer) POC Glucose (mg/dL) 124 H 223 H Random Glucose Hemoglobin A1c Calcium Total Bilirubin AST ALT Alkaline Phosphatase Troponin I Total Protein Albumin Globulin Albumin/Globulin Ratio Triglycerides Cholesterol LDL Cholesterol Direct HDL Cholesterol Blood Type Antibody Screen BBK History Checked Attending/Attestation - Attestation I have personally seen and examined this patient.: Yes I have fully participated in the care of the patient.: Yes I have reviewed all pertinent clinical information: Yes Notes (Text): Expressive Aphasia and Dysarthria likely due to ACute CVA HTN DM Type II - MRI of brain - PT/OT/Speech - Neuro consulted - Permissive HTN - ASA, Plavix, Statin, Lovenox for DVT proph - accucheck with coverage
[2018-02-24] MEDS: Insulin Lispro (humaLOG) 100 Units/ml Inj SC SCH (22:00)
[2018-02-25 07:10] LABS: HEMOGLOBIN 11.2 g/dL (12.0-16.0); MEAN CELL VOLUME 89.8 fl (81.0-99.0); MEAN CORPUSCULAR HEMOGLOBIN 29.1 pg (27.0-31.0); MEAN CORPUSCULAR HGB CONC 32.4 g/dL (33.0-37.0); RBC 3.84 Mil/uL (3.80-5.20); RED CELL DISTRIBUTION WIDTH 15.7 % (11.5-14.5)
[2018-02-25 07:19] LABS: BLOOD UREA NITROGEN 30 mg/dl (7-17); GFR NON-AFRICAN AMERICAN > 60; HDL CHOLESTEROL 63 MG/DL (30-70)
[2018-02-25 07:30] LABS: LDL CHOLESTEROL 95 mg/dL (0-129)
[2018-02-25] MEDS: Enoxaparin 40 mg Syringe SC SCH (10:27)
[2018-02-25] MEDS: Insulin Lispro (humaLOG) 100 Units/ml Inj SC SCH ×4 (10:28→22:18)
--- NOTE | 2018-02-25 12:16 | MRI ---
Date of service: 02/25/2018 PROCEDURE: MRI BRAIN WITHOUT CONTRAST HISTORY: r/o stroke COMPARISON: Head CT without contrast 02/14/2018 and brain MRI 04/16/2017. TECHNIQUE: Multiplanar, multisequence MR images of the brain were obtained without intravenous contrast enhancement. FINDINGS: HEMORRHAGE: None DWI: Restricted diffusion is appreciated at the central and left paracentral wade with no additional restricted diffusion throughout the brain. Increased diffusion-weighted signal is seen at the right parietal lobe posteriorly representing T2 shine through effect from prior chronic infarct. BRAIN PARENCHYMA: Diffuse cerebral atrophy chronic microangiopathy are reiterated and are not significantly changed in the interval. No definite new brain parenchymal findings. Chronic infarcts are reiterated at the bilateral basal ganglia and bilateral thalami. No atrophy or chronic microvascular ischemic changes. VENTRICLES: Unremarkable. No hydrocephalus. CRANIUM: Unremarkable. ORBITS: Grossly unremarkable. PARANASAL SINUSES/MASTOIDS: Clear VASCULAR SYSTEM: Skull base flow voids intact. OTHER FINDINGS: None. IMPRESSION: Acute subacute infarct midline and left paracentral wade. Prior right frontal acute infarct now chronic. Multiple chronic lacunes identified as discussed above bilateral basal ganglia and thalami. Stable age related neuro degenerative degenerative changes.
--- NOTE | 2018-02-25 12:57 | US ---
Date of service: 02/24/2018 PROCEDURE: Duplex ultrasound of the carotid and vertebral arteries. HISTORY: suspected stroke COMPARISON: Carotid ultrasound 04/14/2017. TECHNIQUE: Grayscale and duplex Doppler evaluation of the cervical carotid and vertebral arteries were performed. The common carotid, carotid bifurcations and cervical ICA and proximal ECA were evaluated. The vertebral arteries were evaluated for gross patency and direction. FINDINGS: RIGHT CAROTID ARTERIES: Common Carotid Artery: Normal. Maximal flow velocity of 65.1 cm/s. Carotid Bifurcation: Calcific plaque reiterated. Internal Carotid Artery:Normal. Maximal flow velocity of 103.2 cm/s. External Carotid Artery (proximal branches): Normal. Maximal flow velocity of 112.9 cm/s. ICA/CCA Ratio: 1.6 LEFT CAROTID ARTERIES: Common Carotid Artery: Normal. Maximal flow velocity of 80.6 cm/s. Carotid Bifurcation: Calcific plaque reiterated. Internal Carotid Artery:Normal. Maximal flow velocity of 91.9 cm/s. External Carotid Artery (proximal branches): Normal. Maximal flow velocity of 86.7 cm/s. ICA/CCA Ratio: 1.1 VERTEBRAL ARTERIES: Right Vertebral Artery: Patent. Antegrade flow. Left Vertebral Artery: Patent. Antegrade flow. OTHER FINDINGS: None. IMPRESSION: No significant stenosis bilateral common and internal carotid arteries in the neck as discussed above. No signal interval change. Bilateral carotid bulbar atherosclerosis remains mild.
--- NOTE | 2018-02-25 13:22 | CP.PCM.PN ---
Subjective - Date & Time of Evaluation Date of Evaluation: 02/25/18 Time of Evaluation: 10:00 - Subjective Subjective: Pt's speech still slurred and some sl expressive aphasia , sl better than yesterday denies any new weakness no sensory deficit tolerating PO diet no BAILON no CP no SOB no fever + BM and voiding freely Objective - Vital Signs/Intake and Output Vital Signs (last 24 hours): Temp Pulse Resp BP Pulse Ox 98.5 F 78 78 H 181/89 H 98 02/25/18 12:23 02/25/18 12:23 02/25/18 12:23 02/25/18 12:23 02/25/18 12:23 - Medications Medications: Current Medications Aspirin (Aspirin Chewable) 81 mg PO DAILY [facility] Last Admin: 02/25/18 10:28 Dose: 81 mg Atorvastatin Calcium (Lipitor) 40 mg PO DAILY [facility] Last Admin: 02/25/18 10:27 Dose: 40 mg Clopidogrel Bisulfate (Plavix) 75 mg PO DAILY [facility] Last Admin: 02/25/18 10:27 Dose: 75 mg Docusate Sodium (Colace) 100 mg PO BID [facility] Last Admin: 02/25/18 10:28 Dose: 100 mg Donepezil HCl (Aricept) 5 mg PO HS [facility] Last Admin: 02/24/18 22:00 Dose: Not Given Enoxaparin Sodium (Lovenox) 40 mg SC DAILY [facility]; Protocol Last Admin: 02/25/18 10:27 Dose: 40 mg Insulin Human Lispro (Humalog) 0 units [place] [facility]; Protocol Last Admin: 02/25/18 10:28 Dose: Not Given Sitagliptin Phosphate (Januvia) 100 mg PO DAILY [facility] Last Admin: 02/25/18 10:27 Dose: 100 mg - Labs Labs: 02/25/18 05:30 02/25/18 05:30 PT 10.7 Seconds (9.8-13.1) 02/24/18 15:05 INR 0.9 02/24/18 15:05 APTT 27.2 Seconds (25.6-37.1) 02/24/18 15:05 - Constitutional Appears: No Acute Distress - Head Exam Head Exam: NORMAL INSPECTION, NORMOCEPHALIC - Eye Exam Eye Exam: EOMI, Normal appearance Pupil Exam: NORMAL ACCOMODATION - ENT Exam ENT Exam: Mucous Membranes Moist, Normal External Ear Exam - Neck Exam Neck Exam: Full ROM. absent: Meningismus - Respiratory Exam Respiratory Exam: NORMAL BREATHING PATTERN. absent: Respiratory Distress - Cardiovascular Exam Cardiovascular Exam: REGULAR RHYTHM, +S1, +S2 - GI/Abdominal Exam GI & Abdominal Exam: Soft, Hyperactive Bowel Sounds. absent: Tenderness - Extremities Exam Extremities Exam: Full ROM, Normal Capillary Refill. absent: Calf Tenderness, Pedal Edema - Back Exam Back Exam: Full ROM. absent: CVA tenderness (L), CVA tenderness (R), paraspinal tenderness - Neurological Exam Neurological Exam: Alert, Awake Neuro motor strength exam: Left Upper Extremity: 4, Right Upper Extremity: 4, Left Lower Extremity: 4, Right Lower Extremity: 4 Additional comments: Slurred speech however comprehensible - Psychiatric Exam Psychiatric exam: Normal Affect, Normal Mood - Skin Skin Exam: Dry, Normal Color, Warm Assessment and Plan - Assessment and Plan (Free Text) Assessment: 72 y/o lady with previous hx of CVA, HTN, DM, Dementia, was brought in bec of sudden acute onset of Slurring of speech. Pt had a hx of CVA and some baseline mild bilateral weakness and dementia. 1. Acute CVA Head CT: No definite acute intracranial findings Head/Neck CTA: Left Vertebral Artery stenosis MRI : acute CVA midline and left paracentral wade cont ASA, Plavix, Atorvastatin Speech, PT/OT consult Neurology consulted ECHO with bubble study Permissive HTN Speech rec Mech bite size, nectar thickened 2. DM type II Accuchecks ACHS cont Januvia 3. HTN - hold antihypertensives - allow Permissive HTN 4. Dementia likely Vascular DVT prophylaxis: Lovenox 40 mg SC QD
--- NOTE | 2018-02-25 15:07 | CARD ---
APPROVED REPORT Date of service: 02/24/2018 EKG Measurement Heart [id number] <Conclusion> Normal sinus rhythm Normal ECG
[2018-02-26] MEDS: Insulin Lispro (humaLOG) 100 Units/ml Inj SC SCH ×4 (06:51→21:41)
[2018-02-26 07:32] LABS: T4 10.6 ug/dl (5.5-11.0)
[2018-02-26] MEDS: Enoxaparin 40 mg Syringe SC SCH (09:00)
--- NOTE | 2018-02-26 09:28 | CP.PCM.PN ---
<Benton Posada - Last Filed: 02/26/18 12:08> Subjective - Date & Time of Evaluation Date of Evaluation: 02/26/18 Time of Evaluation: 09:28 - Subjective Subjective: 72 y/o F was evaluated and examined by bedside. Pt was sleeping, arousable for a few seconds and goes back to sleep. -Pt was able to state "Akin" (fine in belarusian). -Pt is responsive to tactile stimulation, seems tired possibly due to lack of sleep overnight. As per nurse note, pt was walking around room at 11pm and was not sleepy. -Pt afebrile, tolerating modified diet, with NO acute events overnight. Objective - Vital Signs/Intake and Output Vital Signs (last 24 hours): Temp Pulse Resp BP Pulse Ox 97.6 F 77 20 170/78 H 94 L 02/26/18 09:05 02/26/18 09:05 02/26/18 09:05 02/26/18 09:05 02/26/18 09:05 - Medications Medications: Current Medications Aspirin (Aspirin Chewable) 81 mg PO DAILY [facility] Last Admin: 02/25/18 10:28 Dose: 81 mg Atorvastatin Calcium (Lipitor) 40 mg PO DAILY [facility] Last Admin: 02/25/18 10:27 Dose: 40 mg Clopidogrel Bisulfate (Plavix) 75 mg PO DAILY [facility] Last Admin: 02/25/18 10:27 Dose: 75 mg Docusate Sodium (Colace) 100 mg PO BID [facility] Last Admin: 02/25/18 17:38 Dose: 100 mg Donepezil HCl (Aricept) 5 mg PO HS [facility] Last Admin: 02/25/18 21:21 Dose: 5 mg Enoxaparin Sodium (Lovenox) 40 mg SC DAILY [facility]; Protocol Last Admin: 02/25/18 10:27 Dose: 40 mg Insulin Human Lispro (Humalog) 0 units SC [facility]; Protocol Last Admin: 02/26/18 06:51 Dose: 2 units Sitagliptin Phosphate (Januvia) 100 mg PO DAILY [facility] Last Admin: 02/25/18 10:27 Dose: 100 mg - Labs Labs: 02/25/18 05:30 02/25/18 05:30 PT 10.7 Seconds (9.8-13.1) 02/24/18 15:05 INR 0.9 02/24/18 15:05 APTT 27.2 Seconds (25.6-37.1) 02/24/18 15:05 - Constitutional Appears: No Acute Distress (Sleepy) - Head Exam Head Exam: ATRAUMATIC, NORMAL INSPECTION - Eye Exam Eye Exam: EOMI - ENT Exam ENT Exam: Mucous Membranes Moist - Neck Exam Neck Exam: Full ROM, Normal Inspection. absent: Meningismus - Respiratory Exam Respiratory Exam: NORMAL BREATHING PATTERN. absent: Rales, Rhonchi, Wheezes, Respiratory Distress - Cardiovascular Exam Cardiovascular Exam: REGULAR RHYTHM, +S1, +S2 - GI/Abdominal Exam GI & Abdominal Exam: Soft. absent: Distended, Guarding, Rigid, Tenderness - Neurological Exam Neurological Exam: absent: Alert (Sleeping) Assessment and Plan - Assessment and Plan (Free Text) Assessment: 72 y/o F with a PMHx of CVA, HTN, DM, mild b/l weakness and dementia after CVA was admitted for evaluation and management of dysarthria. --MRI: Acute subacte infarct of midline and L paracentral wade. --Head CT: No definite acute intracranial findings --CTA of the head/neck: L vertebral artery severe stenosis, but no large vessel occlusion Plan: >Acute Ischemic CVA --Stable, on permissive HTN. --Awaiting PT/OT, speech evaluation. --Neurology on board, Dr Alberts. --ESR 52-high. Unremarkable B12 and thyroid profile. --Speech evaluation: impaired swallowing, mechanical soft bite-sized solids and nectar thick liquids via teaspoon only assisted by 1:1. --Physical therapy: Will benefit from skilled PT --F/U Echo with bubble study, serum CRP and folate. --C/w ASA, Plavix, Atorvastatin >Diabetes Mellitus --Uncontrolled --HbA1C 10.2 on 02/24/18. --Insulin Sliding Scale --C/w Januvia 100mg >Dementia --Likely vascular. --C/w Donepezil >Dysphagia Modified Diet --Speech evaluation: impaired swallowing, mechanical soft bite-sized solids and nectar thick liquids via teaspoon only assisted by 1:1. >DVT prophylaxis: --Lovenox 40 mg SC daily Discussed with Dr Frances, Hospitalist systems integration engineer Wei PGY-2 <Katherine Frances - Last Filed: 02/26/18 15:48> Objective - Vital Signs/Intake and Output Vital Signs (last 24 hours): Temp Pulse Resp BP Pulse Ox 97.6 F 77 20 170/78 H 94 L 02/26/18 09:05 02/26/18 09:05 02/26/18 09:05 02/26/18 09:05 02/26/18 09:05 - Medications Medications: Current Medications Aspirin (Aspirin Chewable) 81 mg PO DAILY [facility] Last Admin: 02/26/18 09:00 Dose: 81 mg Aspirin (Aspirin Supp) 300 mg [place] DAILY [facility] Atorvastatin Calcium (Lipitor) 40 mg PO DAILY [facility] Last Admin: 02/26/18 09:00 Dose: 40 mg Clopidogrel Bisulfate (Plavix) 75 mg PO DAILY [facility] Last Admin: 02/26/18 09:00 Dose: 75 mg Dextrose (Dextrose 50% Inj) 0 ml IV STAT PRN; Protocol PRN Reason: Hypoglycemia Protocol Dextrose (Glutose 15) 0 gm PO ONCE PRN; Protocol PRN Reason: Hypoglycemia Protocol Docusate Sodium (Colace) 100 mg PO BID [facility] Last Admin: 02/26/18 09:00 Dose: 100 mg Donepezil HCl (Aricept) 5 mg PO HS [facility] Last Admin: 02/25/18 21:21 Dose: 5 mg Enoxaparin Sodium (Lovenox) 40 mg SC DAILY [facility]; Protocol Last Admin: 02/26/18 09:00 Dose: 40 mg Glucagon (Glucagen Diagnostic Kit) 0 mg IM STAT PRN; Protocol PRN Reason: Hypoglycemia Protocol Potassium Chloride/Dextrose/Sod Cl (Potassium Chl 20 Meq In D5-1/2ns) 1,000 mls @ 125 mls/hr IV .Q8H [facility] Stop: 02/27/18 13:25 Insulin Human Lispro (Humalog) 0 units SC ACHS [facility]; Protocol Last Admin: 02/26/18 13:59 Dose: 2 units Sitagliptin Phosphate (Januvia) 100 mg PO DAILY [facility] Last Admin: 02/26/18 09:00 Dose: 100 mg - Labs Labs: 02/25/18 05:30 02/25/18 05:30 PT 10.7 Seconds (9.8-13.1) 02/24/18 15:05 INR 0.9 02/24/18 15:05 APTT 27.2 Seconds (25.6-37.1) 02/24/18 15:05 Attending/Attestation - Attestation I have personally seen and examined this patient.: Yes I have fully participated in the care of the patient.: Yes I have reviewed all pertinent clinical information, including history, physical exam and plan: Yes Notes (Text): RN noted that pt was coughing while eating - will hold feeding and ask Speech to re-evaluate swallowing - NPO, start IVF, change ASA to rectal form
[2018-02-26 12:16] VITALS: BMI 32.3
[2018-02-26 13:14] LABS: FOLATE > 20.0 ng/mL
[2018-02-26] MEDS ORDERED: Glucagon Recombinant 1 mg Inj IM PRN (13:20)
[2018-02-26] MEDS ORDERED: Dextrose 50% SYRINGE Inj (50 ml) IV PRN (13:20)
[2018-02-26] MEDS: Potassium Ch 20mEq in D5-1/2NS 1,000 ML IV SCH ×2 (17:38→21:43)
[2018-02-27 05:46] LABS: HEMOGLOBIN 10.9 g/dL (12.0-16.0); MEAN CELL VOLUME 89.5 fl (81.0-99.0); MEAN CORPUSCULAR HEMOGLOBIN 29.4 pg (27.0-31.0); MEAN CORPUSCULAR HGB CONC 32.9 g/dL (33.0-37.0); RBC 3.72 Mil/uL (3.80-5.20); RED CELL DISTRIBUTION WIDTH 15.7 % (11.5-14.5); WHITE BLOOD COUNT 6.5 K/uL (4.8-10.8)
[2018-02-27 06:00] LABS: BLOOD UREA NITROGEN 26 mg/dl (7-17); CALCIUM 8.8 mg/dL (8.4-10.2); GFR NON-AFRICAN AMERICAN > 60
[2018-02-27] MEDS: Potassium Ch 20mEq in D5-1/2NS 1,000 ML IV SCH (07:48)
[2018-02-27 08:15] VITALS: RESP 20
[2018-02-27] MEDS: Enoxaparin 40 mg Syringe SC SCH (08:48)
[2018-02-27] MEDS: Insulin Lispro (humaLOG) 100 Units/ml Inj SC SCH ×2 (08:53→12:08)
--- NOTE | 2018-02-27 11:52 | CP.PCM.PN ---
Subjective - Date & Time of Evaluation Date of Evaluation: 02/27/18 Time of Evaluation: 10:10 Objective - Vital Signs/Intake and Output Vital Signs (last 24 hours): Temp Pulse Resp BP Pulse Ox 98.1 F 80 20 159/74 H 96 02/27/18 09:00 02/27/18 09:00 02/27/18 09:00 02/27/18 09:00 02/27/18 09:00 - Medications Medications: Current Medications Aspirin (Aspirin Chewable) 81 mg PO DAILY [facility] Last Admin: 02/26/18 09:00 Dose: 81 mg Atorvastatin Calcium (Lipitor) 40 mg PO DAILY [facility] Last Admin: 02/26/18 09:00 Dose: 40 mg Clopidogrel Bisulfate (Plavix) 75 mg PO DAILY [facility] Last Admin: 02/26/18 09:00 Dose: 75 mg Dextrose (Dextrose 50% Inj) 0 ml IV STAT PRN; Protocol PRN Reason: Hypoglycemia Protocol Dextrose (Glutose 15) 0 gm PO ONCE PRN; Protocol PRN Reason: Hypoglycemia Protocol Docusate Sodium (Colace) 100 mg PO BID [facility] Last Admin: 02/26/18 09:00 Dose: 100 mg Donepezil HCl (Aricept) 5 mg PO HS [facility] Last Admin: 02/25/18 21:21 Dose: 5 mg Enoxaparin Sodium (Lovenox) 40 mg SC DAILY [facility]; Protocol Last Admin: 02/27/18 08:48 Dose: 40 mg Glucagon (Glucagen Diagnostic Kit) 0 mg IM STAT PRN; Protocol PRN Reason: Hypoglycemia Protocol Insulin Human Lispro (Humalog) [address] [facility]; Protocol Last Admin: 02/27/18 08:53 Dose: Not Given Losartan Potassium (Cozaar) 25 mg PO DAILY [facility] Metformin HCl (Glucophage) 500 mg PO BIDWM [facility] Sitagliptin Phosphate (Januvia) 100 mg PO DAILY [facility] Last Admin: 02/26/18 09:00 Dose: 100 mg - Labs Labs: 02/27/18 04:30 02/27/18 04:30 PT 10.7 Seconds (9.8-13.1) 02/24/18 15:05 INR 0.9 02/24/18 15:05 APTT 27.2 Seconds (25.6-37.1) 02/24/18 15:05 - Constitutional Appears: Well, No Acute Distress - Head Exam Head Exam: ATRAUMATIC, NORMOCEPHALIC - Eye Exam Eye Exam: EOMI, Normal appearance Pupil Exam: PERRL - ENT Exam ENT Exam: Mucous Membranes Moist Additional comments: Coughing upon eating apple sauce pure. - Respiratory Exam Respiratory Exam: Clear to Ausculation Bilateral, NORMAL BREATHING PATTERN. absent: Respiratory Distress - Cardiovascular Exam Cardiovascular Exam: REGULAR RHYTHM, +S1, +S2. absent: Murmur - GI/Abdominal Exam GI & Abdominal Exam: Soft, Normal Bowel Sounds. absent: Tenderness Assessment and Plan - Assessment and Plan (Free Text) Assessment: 72 y/o F with a PMHx of CVA, HTN, DM, mild b/l weakness and dementia after CVA was admitted for evaluation and management of dysarthria. -MRI: Acute subacte infarct of midline and L paracentral wade. -Head CT: No definite acute intracranial findings -CTA of the head/neck: L vertebral artery severe stenosis, but no large vessel occlusion Plan: Acute Ischemic CVA -Stable -Neurology on board, Dr Alberts. Will follow recs. -ESR 52-high. Unremarkable B12 and thyroid profile. -Speech evaluation 02/27 for impaired swallowing and coughing, recommend mechanical soft bite-sized solids and nectar thick liquids via teaspoon only -Physical therapy: recommended [facility] -F/U Echo with bubble study, serum CRP and folate. -C/w ASA, Plavix, Atorvastatin Dysphagia Modified Diet - Continue to cough while eating - Speech evaluation 02/27 for impaired swallowing and coughing, recommend mechanical soft bite-sized solids and nectar thick liquids via teaspoon only Diabetes Mellitus -Uncontrolled -HbA1C 10.2 on 02/24/18. -Insulin Sliding Scale -Start Metformin 500 mg BID for better DM control. -C/w Januvia 100mg -Accuchecks ACHS HTN - Uncontrolled - >72 hours since CVA, Will start patient on Losartan 25 mg QD to optimize BP control. - Monitor vitals Dementia -Likely vascular. -C/w Donepezil Chronic anemia -Most likely secondary to poor PO intake vs chronic disease. -Last HgB 10.9 -Outpatient colonoscopy for further evaluation. DVT prophylaxis: -Lovenox 40 mg SC daily Disposition: Patient to go to [facility] upon discharge
--- NOTE | 2018-02-27 12:50 | CP.PCM.DIS ---
Provider - Provider Date of Admission: 02/24/18 16:48 Attending physician: Katherine Frances MD Consults: 02/24/18 14:24 Stroke Team Consult Stat Comment: Consulting Provider: Neurohospitalist Consulting Physician: NEUROHOSP Neurohospitalist for Consult: Leroy Alberts Neurohospitalist for Consult: Jagdeep Lyons Reason for Consult: cva eval 02/24/18 17:40 Neurology Consult Routine Comment: Consulting Provider: Leroy Alberts Consulting Physician: Leroy Alberts Reason for Consult: Slurred speech, CVA Time Spent in preparation of Discharge (in minutes): 15 Diagnosis - Discharge Diagnosis (1) CVA (cerebral vascular accident) Status: Acute Priority: High (2) Dysphagia Status: Acute (3) DM type 2 (diabetes mellitus, type 2) Status: Chronic (4) Hypertension Status: Chronic Hospital Course - Lab Results Lab Results: Most Recent Lab Values WBC 6.5 K/uL (4.8-10.8) 02/27/18 04:30 RBC 3.72 Mil/uL (3.80-5.20) L 02/27/18 04:30 Hgb 10.9 g/dL (12.0-16.0) L 02/27/18 04:30 Hct 33.3 % (34.0-47.0) L 02/27/18 04:30 MCV 89.5 fl (81.0-99.0) 02/27/18 04:30 MCH 29.4 pg (27.0-31.0) 02/27/18 04:30 MCHC 32.9 g/dL (33.0-37.0) L 02/27/18 04:30 RDW 15.7 % (11.5-14.5) H 02/27/18 04:30 Plt Count 170 K/uL (130-400) 02/27/18 04:30 MPV 9.5 fl (7.2-11.7) 02/24/18 15:05 Neut % (Auto) 72.0 % (50.0-75.0) 02/24/18 15:05 Lymph % (Auto) 19.1 % (20.0-40.0) L 02/24/18 15:05 [place] % (Auto) 6.6 % (0.0-10.0) 02/24/18 15:05 Eos % (Auto) 1.8 % (0.0-4.0) 02/24/18 15:05 Baso % (Auto) 0.5 % (0.0-2.0) 02/24/18 15:05 Neut # (Auto) 5.4 K/uL (1.8-7.0) 02/24/18 15:05 Lymph # (Auto) 1.4 K/uL (1.0-4.3) 02/24/18 15:05 [place] # (Auto) 0.5 K/uL (0.0-0.8) 02/24/18 15:05 Eos # (Auto) 0.1 K/uL (0.0-0.7) 02/24/18 15:05 Baso # (Auto) 0.0 K/uL (0.0-0.2) 02/24/18 15:05 ESR 58 mm/hr (0-30) H 02/26/18 06:00 PT 10.7 Seconds (9.8-13.1) 02/24/18 15:05 INR 0.9 02/24/18 15:05 APTT 27.2 Seconds (25.6-37.1) 02/24/18 15:05 Sodium 137 mmol/l (132-148) 02/27/18 04:30 Potassium 4.7 MMOL/L (3.6-5.0) 02/27/18 04:30 Chloride 103 mmol/L (98-107) 02/27/18 04:30 Carbon Dioxide 27 mmol/L (22-30) 02/27/18 04:30 Anion Gap 12 (10-20) 02/27/18 04:30 BUN 26 mg/dl (7-17) H 02/27/18 04:30 Creatinine 0.9 mg/dl (0.7-1.2) 02/27/18 04:30 Est GFR ( Amer) > 60 02/27/18 04:30 Est GFR (Non-Af Amer) > 60 02/27/18 04:30 POC Glucose (mg/dL) 236 mg/dL (65-110) H 02/27/18 10:49 Random Glucose 239 mg/dL (65-105) H 02/27/18 04:30 Hemoglobin A1c 10.2 % (4.2-6.5) H D 02/24/18 15:05 Calcium 8.8 mg/dL (8.4-10.2) 02/27/18 04:30 Total Bilirubin 0.2 mg/dl (0.2-1.3) 02/24/18 15:05 AST 24 U/L (14-36) 02/24/18 15:05 ALT 32 U/L (9-52) 02/24/18 15:05 Alkaline Phosphatase 68 U/L (38-126) 02/24/18 15:05 Troponin I < 0.0120 ng/mL (0.00-0.120) 02/24/18 15:05 C-Reactive Protein 5.30 mg/L (0.0-9.9) 02/26/18 06:00 Total Protein 7.2 G/DL (6.3-8.2) 02/24/18 15:05 Albumin 3.8 g/dL (3.5-5.0) 02/24/18 15:05 Globulin 3.4 gm/dL (2.2-3.9) 02/24/18 15:05 Albumin/Globulin Ratio 1.1 (1.0-2.1) 02/24/18 15:05 Triglycerides 200 mg/DL (0-149) H D 02/25/18 05:30 Cholesterol 196 mg/dL (0-199) 02/25/18 05:30 LDL Cholesterol Direct 95 mg/dL (0-129) 02/25/18 05:30 HDL Cholesterol 63 MG/DL (30-70) 02/25/18 05:30 Vitamin B12 884 pg/mL (239-931) 02/26/18 06:00 25-OH Vitamin D Total 30.3 NG/ML (30.0-100.0) 02/26/18 06:00 Folate > 20.0 ng/mL 02/26/18 06:00 Thyroxine (T4) 10.6 ug/dl (5.5-11.0) 02/26/18 06:00 TSH 3rd Generation 0.59 mIU/ML (0.46-4.68) 02/26/18 06:00 Blood Type A POSITIVE 02/24/18 15: Antibody Screen Negative 02/24/18 15:05 BBK History Checked Patient has bt 12/14/18 15:05 - Hospital Course Hospital Course: Wayne Schneider, 72 y/o F, retirement resident with PMHx of HTN, DM, HLD, dementia, previous stroke presents to ED with slurred speech and weakness. In ED NIHSS score 4. Neurologist Dr. Alberts consulted. Non-contrast CT scan of the head did not show any acute findings. CTA of the head/neck showed left vertebral artery severe stenosis, but no large vessel occlusion. MRI showed Acute subacte infarct of midline and L paracentral wade. Patient started on ASA, Plavix, Statin, Lovenox with permissive HTN for 48 hours. PT/OT/Speech therapist consulted. Patient's speech improved slowly over next 2 days. Patient also started on Losartan 25 mg due to continued HTN after 48 hrs. Metformin 500 mg added to sitagliptin 100 mg for glycemic control. Speech therapist recommended patient on nectar pure liquid. PT recommended JOHN. Patient to be discharged to to [facility]. Discharge medications Home Medications Donepezil 5 mg PO HS ASpirin 81 mg PO daily Sitagliptin 100 mg PO daily Lipitor 40 mg PO daily New medications Losartan 25 mg PO daily Metformin 500 mg PO BID Colace 100 mg PO BID Plavix 75 mg PO daily Discharge Exam - Head Exam Head Exam: ATRAUMATIC, NORMOCEPHALIC - Eye Exam Eye Exam: EOMI, Normal appearance, PERRL Pupil Exam: NORMAL ACCOMODATION, PERRL - ENT Exam ENT Exam: Mucous Membranes Moist Additional comments: Speech improving, able to speak in full sentences - Respiratory Exam Respiratory Exam: Clear to PA & Lateral, NORMAL BREATHING PATTERN. absent: Respiratory Distress - Cardiovascular Exam Cardiovascular Exam: REGULAR RHYTHM, +S1, +S2. absent: Tachycardia - GI/Abdominal Exam GI & Abdominal Exam: Normal Bowel Sounds. absent: Diminished Bowel Sounds, Distended - Extremities Exam Additional comments: No calf tenderness, B/L Varicose veins present, Trace Pedal edema B/L - Neurological Exam Neurological exam: Alert, Oriented x3 - Psychiatric Exam Psychiatric exam: Normal Affect, Normal Mood - Skin Skin Exam: Dry, Intact, Normal Color Discharge Plan - Follow Up Plan Condition: FAIR Disposition: REHAB FACILITY/REHAB UNIT Patient education suggested?: Yes Additional Instructions: Activity as tolerated. Fall and aspiration precaution. Referrals: Leroy Alberts MD [Medical Doctor] -
--- NOTE | 2018-02-27 13:54 | CARD ---
APPROVED REPORT Date of service: 02/27/2018 EXAM: Two-dimensional and M-mode echocardiogram with Doppler, color Doppler with bubble study. Other Information Quality : AverageRhythm : NSR INDICATION CVA/TIA Echo Enhancing Agent Indication: Rule Out Septal Defect Agent/Amount Used: Agitated Saline 2D DIMENSIONS IVSd1.51 (0.7-1.1cm)LVDd4.09 (3.9-5.9cm) LVOT Diameter1.98 (1.8-2.4cm)PWd1.02 (0.7-1.1cm) IVSs1.64 (0.8-1.2cm)LVDs3.33 (2.5-4.0cm) FS (%) 18.5 %PWs1.27 (0.8-1.2cm) M-Mode DIMENSIONS Left Atrium (MM)3.85 (2.5-4.0cm)IVSd1.18 (0.7-1.1cm) Aortic Root3.00 (2.2-3.7cm)LVDd4.94 (4.0-5.6cm) Aortic Cusp Exc.1.88 (1.5-2.0cm)PWd1.09 (0.7-1.1cm) IVSs1.47 cmFS (%) 30 % LVDs3.47 (2.0-3.8cm)PWs1.56 cm Aortic Valve AoV Peak Jgycmjsu100.9cm/sAoV VTI20.0cmAO Peak GR.4mmHg LVOT Peak Fhhfojcc15.5cm/sLVOT VTI18.21cmAO Mean GR.2mmHg JOHN (VMAX)1.88tp0GAD (VTI)1.40cm2 Mitral Valve MV E Htjxsvoe96.5cm/sMV DECEL [id number] A Cwlmhmml81.9cm/s MV SCP31zhX/A ratio0.7MVA (PHT)3.27cm2 TDI E/Lateral E'0.0E/Medial E'0.0 Tricuspid Valve TR Peak Aaymwtku446db/sRAP HIWEXHPT75qqMwZR Peak Gr.39mmHg [id number] LEFT VENTRICLE The left ventricle is normal size. There is normal left ventricular wall thickness. The left ventricular systolic function is normal. The estimated ejection fraction is 55-60% No regional wall motion abnormalities noted.. Transmitral Doppler flow pattern is Grade I-abnormal relaxation pattern. No left ventricle thrombus noted on this study. There is no ventricular septal defect visualized. There is no left ventricular aneurysm. There is no mass noted in the left ventricle. RIGHT VENTRICLE The right ventricle is normal size. There is normal right ventricular wall thickness. The right ventricular systolic function is normal. ATRIA The left atrium size is normal. The right atrium size is normal. The interatrial septum is intact with no evidence for an atrial septal defect. AORTIC VALVE The aortic valve is normal in structure. No aortic regurgitation is present. There is no aortic valvular stenosis. There is no aortic valvular vegetation. MITRAL VALVE The mitral valve is normal in structure. There is no evidence of mitral valve prolapse. There is no mitral valve stenosis. There is no mitral valve regurgitation noted. TRICUSPID VALVE The tricuspid valve is normal in structure. There is mild tricuspid valve regurgitation noted. RVSP is calculated at 44 mm Hg. There is no tricuspid valve prolapse or vegetation. There is no tricuspid valve stenosis. PULMONIC VALVE The pulmonary valve is normal in structure. There is no pulmonic valvular regurgitation. There is no pulmonic valvular stenosis. GREAT VESSELS The aortic root is normal in size. The ascending aorta is normal in size. The pulmonary artery is normal. The IVC is normal in size and collapses >50% with inspiration. PERICARDIAL EFFUSION There is no pericardial effusion. There is no pleural effusion. <Conclusion> Techniclly difficult study. Agitated saline was used as contrast. The estimated ejection fraction is 55-60% Transmitral Doppler flow pattern is Grade I-abnormal relaxation pattern. The left atrium size is normal. The interatrial septum is intact with no evidence for an atrial septal defect. Correlate clinically. There is mild tricuspid valve regurgitation noted. RVSP is calculated at 44 mm Hg.
--- NOTE | 2018-02-27 14:29 | PCM.STROKE ---
Interval History - Treatment Antiplatelet: Acetylsalicylic acid (ASA), Plavix Statin: Atrovastatin Intensive: Yes - Education Written Stroke Education provided regarding: personal risk factors, stroke warning sign/symptoms, how to activate emergency medical services, need to follow up after discharge Hx Atrial Fibrillation: No - Therapy Notes Occupational therapy notes date reviewed: 02/27/18 NIHSS Stroke Scale - Date/Time Evaluation Performed Date Performed: 02/24/18 Time Performed: 14:22 - How Severe is the Stroke Level of Consciousness: 0=Alert LOC to Questions: 1=One correct LOC to commands: 0=Obeys both correctly Best Gaze: 0=Normal Visual: 0=No visual loss Facial: 0=Normal Motor Arm - Left: 0=No drift Motor Arm - Right: 0=No drift Motor Leg - Left: 0=No drift Motor Leg - Right: 0=No drift Limb Ataxia: 0=Absent Sensory: 0=Normal Best Language: 2=Severe aphasia Dysarthia: 1=Mild to moderate slurring Extinction & Inattention (Neglect): 0=Normal, no object Score: 4 Exam - Vital Sign Vital Signs: Temp Pulse Resp BP Pulse Ox 97.9 F 75 20 174/78 H 94 L 02/27/18 12:05 02/27/18 12:05 02/27/18 12:05 02/27/18 12:05 02/27/18 12:05 Constitutional: No distress Ophthalmoscopic: absent: papilledema, hemorrhage Right Pupil: Reactive Left Pupil: Reactive Mental Status: Normal: Orientation, Memory, Attention, Language, Fund of Knowledge Cranial Nerve: Normal: Extraocular movement intact, Facial Sensation, Hearing, Palate/Tongue Movement, Shoulder Strength Neuro motor strength exam: Left Upper Extremity: 4, Right Upper Extremity: 4, Left Lower Extremity: 4, Right Lower Extremity: 4 DTR: Achilles Tendon Left: 2+, Achilles Tendon Right: 2+, Bicep Left: 2+, Bicep Right: 2+, Brachioradialis Left: 2+, Brachioradialis Right: 2+, Patellar Left: 2+, Patellar Right: 2+, Tricep Left: 2+, Tricep Right: 2+ - Data reviewed Laboratory results: 02/27/18 04:30 02/27/18 04:30 Triglycerides 200 mg/DL (0-149) H D 02/25/18 05:30 Cholesterol 196 mg/dL (0-199) 02/25/18 05:30 LDL Cholesterol Direct 95 mg/dL (0-129) 02/25/18 05:30 HDL Cholesterol 63 MG/DL (30-70) 02/25/18 05:30 Hemoglobin A1c 10.2 % (4.2-6.5) H D 02/24/18 15:05 Assessment and Plan (1) CVA (cerebral vascular accident) Assessment & Plan: Continue current therapy for secondary stroke prevention and follow up with PT/OT for further care plan. Status: Acute
[2018-02-27 15:53] VITALS: BP 156/71; PULSE 74; TEMP 98.5; O2SAT 96
== END 2018-02-27 16:25 | DRG 65 ==
LOC: H.ER 14:10 → H.ERHOLD 16:48 → H.TEL 22:07
PROVIDERS: ADMIT Internal Medicine; ATTEND Internal Medicine
DX: I63.81 Other cerebral infarction due to occlusion or stenosis of small artery (principal); I13.0 Hypertensive heart and chronic kidney disease with heart failure and stage 1 through stage 4 chronic kidney disease, or unspecified chronic kidney disease; I69.351 Hemiplegia and hemiparesis following cerebral infarction affecting right dominant side; I69.354 Hemiplegia and hemiparesis following cerebral infarction affecting left non-dominant side; R47.01 Aphasia; R47.1 Dysarthria and anarthria; R13.19 Other dysphagia; I65.02 Occlusion and stenosis of left vertebral artery; R29.704 NIHSS score 4; F01.50 Vascular dementia, unspecified severity, without behavioral disturbance, psychotic disturbance, mood disturbance, and anxiety; N18.9 Chronic kidney disease, unspecified; G30.9 Alzheimer's disease, unspecified; F02.80 Dementia in other diseases classified elsewhere, unspecified severity, without behavioral disturbance, psychotic disturbance, mood disturbance, and anxiety; E11.65 Type 2 diabetes mellitus with hyperglycemia; E11.22 Type 2 diabetes mellitus with diabetic chronic kidney disease; I50.9 Heart failure, unspecified; D64.9 Anemia, unspecified; K21.9 Gastro-esophageal reflux disease without esophagitis; E78.00 Pure hypercholesterolemia, unspecified; E78.5 Hyperlipidemia, unspecified; Z88.6 Allergy status to analgesic agent; Z79.02 Long term (current) use of antithrombotics/antiplatelets; Z79.82 Long term (current) use of aspirin; Z79.84 Long term (current) use of oral hypoglycemic drugs

== ENCOUNTER 2018-06-01 13:48 | Inpatient (IN) | payer OTHER ==
[2018-06-01] MEDS ORDERED: Dextrose 50% SYRINGE Inj (50 ml) IVP ONE (14:13)
--- NOTE | 2018-06-01 14:15 | ED PDOC ---
HPI:STROKE - Time Time: 13:58 - Historian Historian: Patient, Family (family at home), EMS - Chief Complaint Chief Complaint: Slurred speech, Mental status change, Facial droop - Onset Date: 05/31/18 (9pm per ?) - Timing Timing: Currently Symptomatic - TPA Positive for Contraindication: Yes Reason tPA is not being Administered: symptoms ongoing >4hours - Notes: Notes:: 73yo female multiple medical problems including hx brainstem infarct 02/28 now presents via EMS per EMS and family report became confused with difficulty speaking last night, family member gave insulin and put her to bed. Today was incontinent and further confusion, slurred speech, ?new facial droop. Patient in ED, denies pain but poor historian. Prior charts from 02/28 reviewed briefly for history./ NIHSS Stroke Scale - Date/Time Evaluation Performed Date Performed: 06/01/18 Time Performed: 14:00 When Was NIHSS Performed: Baseline - How Severe is the Stroke Level of Consciousness: 0=Alert LOC to Questions: 1=One correct LOC to commands: 0=Obeys both correctly Best Gaze: 0=Normal Visual: 0=No visual loss Facial: 2=Partial (lower face paralysis) Motor Arm - Left: 0=No drift Motor Arm - Right: 0=No drift Motor Leg - Left: 0=No drift Motor Leg - Right: 0=No drift Limb Ataxia: 1=Present Upper or Lower Sensory: 0=Normal Best Language: 1=Mild to moderate aphasia Dysarthia: 1=Mild to moderate slurring Extinction & Inattention (Neglect): 0=Normal, no object Score: 6 rTPA Inclusion/Exclusion - Refusal of Treatment Patient Refused Treatment: No - Inclusion Criteria for Altepase Patient is 18 years or Older: Yes The Clinical Diagnosis of Ischemic Stroke That is Causing a Potentially Disabling Neurological Deficit: Yes Time of Onset is Well Established to be Less Than 270 Minute Before Treatment Would Begin: No - Exclusion Criteria for Altepase Less Than 3 Months Had a Recent: Stroke Past Medical History Reviewed: Historical Data, Nursing Documentation, Vital Signs Vital Signs: Last Vital Signs Temp 97 F L 06/01/18 13:57 Pulse 77 06/01/18 13:57 Resp 18 06/01/18 13:57 BP 184/81 H 06/01/18 13:57 Pulse Ox 96 06/01/18 13:57 - Medical History PMH: Alzheimer's Disease, Anemia, Arthritis, CHF, CVA, Dementia, Depression, Diabetes (type 2, NIDDM), HTN, Hypercholesterolemia, Hyperlipidemia, Peripheral Edema, Pneumonia (Aspiration pnuemonia), Chronic Kidney Disease Denies: Atrial Fibrillation, HIV - Family History Family History: States: Unknown Family Hx - Living Arrangements Living Arrangements: With Family - Immunization History Hx Tetanus Toxoid Vaccination: No Hx Influenza Vaccination: No Hx Pneumococcal Vaccination: No - Home Medications Home Medications: Ambulatory Orders Medication Instructions Recorded Aspirin [Ecotrin] 81 mg PO DAILY #30 tabec 11/09/17 Clopidogrel [Plavix] 75 mg PO DAILY tab 02/27/18 Losartan [Cozaar] 25 mg PO DAILY tab 02/27/18 SITagliptin [Januvia] 100 mg PO DAILY tab 02/27/18 Atorvastatin [Lipitor] 40 mg PO HS 06/01/18 Donepezil [Aricept] 10 mg PO HS 06/01/18 Insulin Glargine,Hum.rec.anlog 20 unit SC HS 06/01/18 [Basaglar Kwikpen U-100] Insulin Lispro [humALOG] unit SC [facility] 06/01/18 Pioglitazone [Actos] 45 mg PO DAILY 06/01/18 - Allergies Allergies/Adverse Reactions: Allergies Allergy/AdvReac Type Severity Reaction Status Date / Time oxycodone Allergy RASH Verified 06/01/18 13:56 Review of Systems ROS Statement: Except As Marked, All Systems Reviewed And Found Negative Review Of Systems: ROS cannot be obtained secondary to pt's inabilty to answer questions. Physical Exam - Reviewed Nursing Documentation Reviewed: Yes Vital Signs Reviewed: Yes - Physical Exam Appears: Positive for: Non-toxic Head Exam: Positive for: ATRAUMATIC, NORMAL INSPECTION, NORMOCEPHALIC Skin: Positive for: Normal Color, Warm, DRY Eye Exam: Positive for: EOMI, Normal appearance, PERRL ENT: Positive for: Normal ENT Inspection, Other (L facial droop) Neck: Positive for: Normal, Painless ROM Cardiovascular/Chest: Positive for: Regular Rate, Rhythm Respiratory: Positive for: CNT, Normal Breath Sounds Gastrointestinal/Abdominal: Positive for: Normal Exam, Soft Back: Positive for: Normal Inspection Extremity: Positive for: Normal ROM Neurological/Psych: Positive for: Awake, Alert, Normal Tone, Facial Droop (L), Other (confused w dysarthria). 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 - Laboratory Results Result Diagrams: 06/01/18 14:27 06/01/18 14:27 - ECG O2 Sat by Pulse Oximetry: 96 Medical Decision Making Medical Decision Making: stroke workup initiated code stroke called d/w Dr Contreras radiology CT brain result 228pm CTA obtained per protocol NIHSS 6, Dr [place] reviewed, no LVO, not candidate for intervention Accucheck 66 but no improvement in symptoms w D50 rectal ASA ordered labs reviewed, mild hypoglycemia, D50 and PO juice given Admit Dr Dobbs PMD, rectal ASA ordered, care transferred 3pm Disposition - Clinical Impression Clinical Impression: Altered mental status, CVA (cerebral vascular accident) - Patient ED Disposition Is Patient to be Admitted: Yes - Disposition Disposition Time: 14:50 Condition: FAIR - Pt Status Changed To: Hospital Disposition Of: Inpatient - Admit Certification Admit to Inpatient:: After my assessment, the patient will require hospitalization for at least two midnights. This is because of the severity of symptoms shown, intensity of services needed, and/or the medical risk in this patient being treated as an outpatient.
[2018-06-01] MEDS ORDERED: Iodixanol 320 MG/ML 100 ML BOTTLE IV ONE (14:20)
[2018-06-01] MEDS ORDERED: Sodium Chloride 0.9% 50 ML IV ONE (14:20)
--- NOTE | 2018-06-01 14:39 | CT ---
Date of service: 06/01/2018 PROCEDURE: CT HEAD WITHOUT CONTRAST. HISTORY: code stroke COMPARISON: 02/24/2018. CT head 02/25/2018 MRI brain. Summary of findings on the comparison examination: Acute, subacute infarct midline left paracentral wade. Prior right frontal acute infarct now chronic. TECHNIQUE: Axial computed tomography images were obtained through the head/brain without intravenous contrast. Supplemental Coronal and Sagittal projections created and reviewed. Radiation dose: Total exam DLP = <inf_radiation_dlp> mGy-cm. This CT exam was performed using one or more of the following dose reduction techniques: Automated exposure control, adjustment of the mA and/or kV according to patient size, and/or use of iterative reconstruction technique. FINDINGS: HEMORRHAGE: No intracranial hemorrhage. BRAIN: No mass effect or edema. Cortical and cerebellar atrophy, periventricular small vessel disease. Multiple stable lacune or infarcts. There is a brainstem infarct which corresponds to findings on recent MRI performed 02/25/2018. VENTRICLES: Unremarkable. No hydrocephalus. CALVARIUM: Unremarkable. PARANASAL SINUSES: Unremarkable as visualized. No significant inflammatory changes. MASTOID AIR CELLS: Unremarkable as visualized. No inflammatory changes. OTHER FINDINGS: None. IMPRESSION: No acute intracranial abnormalities. No significant findings to account for the clinical presentation. Atrophy, small vessel disease, multi old infarcts. Documentation on CT of brainstem infarct noted on recent MRI. Code stroke protocol: Study completed 14:23. Findings discussed with attending physician in the emergency department Dr. Mayer. Results conveyed verbally at 14:30. Interpretation finalized and available for review 14:34.
[2018-06-01 14:40] LABS: VENOUS BLOOD GAS BASE EXCESS 6.7 mmol/L (0.0-2.0); VENOUS BLOOD GAS PCO2 61 mmHg (40-60); VENOUS BLOOD GAS PO2 33 mm/Hg (30-55); VENOUS BLOOD PH 7.35 (7.32-7.43)
[2018-06-01 14:44] LABS: BASO # 0.1 K/uL (0.0-0.2); BASO % 0.8 % (0.0-2.0); EOS # 0.1 K/uL (0.0-0.7); EOS % 1.5 % (0.0-4.0); HEMOGLOBIN 9.7 g/dL (12.0-16.0); LYMPH # 1.5 K/uL (1.0-4.3); LYMPH % 22.2 % (20.0-40.0); MEAN CELL VOLUME 95.4 fl (81.0-99.0); MEAN CORPUSCULAR HEMOGLOBIN 31.2 pg (27.0-31.0); MEAN CORPUSCULAR HGB CONC 32.7 g/dL (33.0-37.0); MEAN PLATELET VOLUME 9.4 fl (7.2-11.7); MONO # 0.6 K/uL (0.0-0.8); MONO % 9.1 % (0.0-10.0); NEUT # 4.4 K/uL (1.8-7.0); NEUT % 66.4 % (50.0-75.0); NRBC % 0.1 % (0.0-0.0); RBC 3.1 Mil/uL (3.80-5.20); RED CELL DISTRIBUTION WIDTH 14.9 % (11.5-14.5); WHITE BLOOD COUNT 6.6 K/uL (4.8-10.8)
[2018-06-01] MEDS ORDERED: Dextrose 50% SYRINGE Inj (50 ml) ONE (14:51)
--- NOTE | 2018-06-01 14:59 | CT ---
Date of service: 06/01/2018 PROCEDURE: CTA HEAD AND NECK WITH CONTRAST HISTORY: Stroke COMPARISON: None available. TECHNIQUE: Initial noncontrast head CT was performed. Subsequently, CT angiogram of the head and neck were performed after the intravenous administration of 80 mL of Omnipaque 350. Contiguous 1.5mm thick images were obtained in the axial plane of the neck. 2-D coronal and sagittal MPR images were obtained. Imaging postprocessing was performed with 3-D images also obtained. A delayed contrast head CT was also obtained. This CT exam was performed using one or more of the following dose reduction techniques: Automated exposure control, adjustment of the mA and/or kV according to patient size, and/or use of iterative reconstruction technique. Contrast dose: 99 cc Visipaque 320 Radiation dose: Total exam DLP = inf_radiation_dlp mGy-cm. FINDINGS: HEAD: There are atherosclerotic vascular calcifications in the cavernous carotid and supraclinoid internal carotid arteries. Right: The intracranial internal carotid artery, and anterior and middle cerebral arteries are widely patent. Left: The intracranial internal carotid artery, and anterior and middle cerebral arteries are widely patent. Posterior circulation: The visualized intracranial vertebral arteries, basilar artery and posterior cerebral arteries are widely patent. There is origin of bilateral posterior cerebral arteries with hypoplastic vertebrobasilar system. There is no endoluminal filling defect to suggest thrombus. There is no intracranial saccular aneurysm. NECK: There is a three vessel aortic arch. There is no stenosis at the origins of the great vessels at the level of the aortic arch. There are advanced atherosclerotic vascular calcifications in both carotid bulbs and proximal internal carotid arteries. Right Carotid: On the right, the common carotid, internal carotid and external carotid arteries are widely patent. There is approximately 60 % stenosis in the proximal right IC. No hemodynamically significant stenosis in the internal carotid artery by NASCET criteria. Left Carotid: On the left, the common carotid, internal carotid and external carotid arteries are widely patent. There is no hemodynamically significant stenosis in the internal carotid artery by NASCET criteria. The vertebral arteries are widely patent. The right vertebral artery is hypoplastic, an anatomic variant. The visualized soft tissues of the neck are normal. There is patchy airspace disease in the visualized right upper lobe likely subsegmental atelectasis. The left upper lobe is predominantly clear. Multinodular right thyroid lobe. IMPRESSION: 1. No evidence of endoluminal thrombus,occlusion or definite significant stenosis in the intracranial arteries. 2. No evidence of hemodynamically significant stenosis in the internal carotid arteries. There is approximately 60% stenosis in the proximal right ICA. 3. Patent bilateral vertebral arteries.
[2018-06-01] MEDS: Sodium Chloride 0.9% 1,000 ML IV SCH ×2 (15:02→23:15)
[2018-06-01 15:27] LABS: BLOOD UREA NITROGEN 33 mg/dl (7-17); CALCIUM 9.3 mg/dL (8.4-10.2); GFR NON-AFRICAN AMERICAN 55
[2018-06-01 15:28] LABS: ALBUMIN 3.7 g/dL (3.5-5.0); ALT/SGPT 17 U/L (9-52); AST/SGOT 21 U/L (14-36); HDL CHOLESTEROL 82 MG/DL (30-70); LDL CHOLESTEROL 50 mg/dL (0-129)
[2018-06-01 15:56] LABS: PARTIAL THROMBOPLASTIN TIME 30.3 Seconds (25.6-37.1); PROTHROMBIN TIME 10.8 Seconds (9.8-13.1)
[2018-06-01 16:32] VITALS: BMI 35.9
--- NOTE | 2018-06-01 16:38 | CP.PCM.HP ---
<Nathan Arango - Last Filed: 06/01/18 16:25> History of Present Illness - History of Present Illness History of Present Illness: Pt is a poor historian. History obtained from chart review and after speaking with ED Attending. Pt is a 73 y/o female with hx of multiple CVA's, dementia, DM, HTN, HLD brought to ED byt family as they noticed slurred speech and confusion yesterday evening which was worse today. ED staff also noted mild facial droop. Patient is awake and alert, able to answer basic questions. Does not recall any prior events. Denies blurry vision, cp, sob, recent illness. Speech appears slurred. No fm at bedside to corroborate history. Of note, pt was admitted in for Acute CVA and discharged on ASA, Plavix and Lipitor. Compliance with dual antiplatelet therapy unclear Carotid Artery US (02/25/18): Mild Bilateral Carotid atherosclerosis Brain MRI (02/25/18): Acute subacyte infarct midline and left paracentral wade Echo: EF 55-60%, No evidence of atrial septal defect, no thrombus, Mild tricuspid regurg PMD: Dr. Babb Pmhx: Alzheimer's, HTN, HLD Surghx: peg placement/removal FamHx: non-contributory Socialhx: lives w/ spouse at home Allergies: Oxycodone Code: Full Code Next of Kin: , Yanick Khalil, Present on Admission - Present on Admission Any Indicators Present on Admission: No History of DVT/PE: No History of Uncontrolled Diabetes: No Urinary Catheter: No Decubitus Ulcer Present: No Past Patient History - Past Medical History & Family History Past Medical History?: Yes - Past Social History Smoking Status: Never Smoked - CARDIAC Hx Atrial Fibrillation: No Hx Congestive Heart Failure: Yes Hx Hypercholesterolemia: Yes Hx Hypertension: Yes Hx Peripheral Edema: Yes - PULMONARY Hx Pneumonia: Yes (Aspiration pnuemonia) - NEUROLOGICAL Hx Alzheimer's Disease: Yes Hx Dementia: Yes - HEENT Hx HEENT Problems: No - RENAL Hx Chronic Kidney Disease: Yes - ENDOCRINE/METABOLIC Hx Endocrine Disorders: Yes Hx Diabetes Mellitus Type 2: Yes - HEMATOLOGICAL/ONCOLOGICAL Hx Anemia: Yes Hx Human Immunodeficiency Virus (HIV): No - INTEGUMENTARY Hx Dermatological Problems: Yes - MUSCULOSKELETAL/RHEUMATOLOGICAL Hx Arthritis: Yes - GASTROINTESTINAL Hx Gastrointestinal Disorders: Yes Hx Gastroesophageal Reflux: Yes Hx Hemorrhoids: Yes Other/Comment: Hx rectal bleeding - GENITOURINARY/GYNECOLOGICAL Hx Genitourinary Disorders: Yes Hx Urinary Tract Infection: Yes - PSYCHIATRIC Hx Depression: Yes - SURGICAL HISTORY Hx Surgeries: Yes Other/Comment: Hx PEG tube insertion and removal - ANESTHESIA Hx Anesthesia: Yes Hx Anesthesia Reactions: No Hx Malignant Hyperthermia: No Meds Allergies/Adverse Reactions: Allergies Allergy/AdvReac Type Severity Reaction Status Date / Time oxycodone Allergy RASH Verified 06/01/18 13:56 Physical Exam - Constitutional Appears: No Acute Distress - Eye Exam Eye Exam: EOMI, Normal appearance, PERRL - ENT Exam ENT Exam: Mucous Membranes Moist - Neck Exam Neck exam: Positive for: Full Rom - Respiratory Exam Respiratory Exam: Clear to Auscultation Bilateral. absent: Rales, Wheezes - Cardiovascular Exam Cardiovascular Exam: REGULAR RHYTHM, +S1, +S2 - GI/Abdominal Exam GI & Abdominal Exam: Normal Bowel Sounds, Soft. absent: Tenderness - Extremities Exam Extremities exam: Positive for: normal inspection - Neurological Exam Neurological exam: Alert, Altered, CN II-XII Intact, Motor Sensory Deficit (slight lef facial droop, power symmetrical in upper and lower extremities, no sensory deficits noted) - Psychiatric Exam Psychiatric exam: Flat Affect - Skin Skin Exam: Normal Color Results - Vital Signs Recent Vital Signs: Last Vital Signs Temp 97.8 F 06/01/18 14:52 Pulse 74 06/01/18 14:52 Resp 16 06/01/18 14:52 BP 149/74 06/01/18 14:52 Pulse Ox 96 06/01/18 16:01 - Labs Result Diagrams: 06/01/18 14:27 06/01/18 14:27 Labs: Laboratory Results - last 24 hr 06/01/18 06/01/18 06/01/18 14:03 14:22 14:27 WBC 6.6 RBC 3.10 L Hgb 9.7 L Hct 29.6 L MCV 95.4 D MCH 31.2 H MCHC 32.7 L RDW 14.9 H Plt Count 195 MPV 9.4 Neut % (Auto) 66.4 Lymph % (Auto) 22.2 [place] % (Auto) 9.1 Eos % (Auto) 1.5 Baso % (Auto) 0.8 Neut # (Auto) 4.4 Lymph # (Auto) 1.5 [place] # (Auto) 0.6 Eos # (Auto) 0.1 Baso # (Auto) 0.1 PT INR APTT pO2 33 VBG pH 7.35 VBG pCO2 61 H VBG HCO3 29.5 VBG Total CO2 35.6 H VBG O2 Sat (Calc) 69.4 H VBG Base Excess 6.7 H VBG Potassium 4.3 Sodium 139.0 Chloride 107.0 Glucose 66 Lactate 0.8 FiO2 21.0 Potassium Carbon Dioxide Anion Gap BUN Creatinine Est GFR ( Amer) Est GFR (Non-Af Amer) POC Glucose (mg/dL) 61 L Random Glucose Calcium Total Bilirubin AST ALT Alkaline Phosphatase Troponin I Total Protein Albumin Globulin Albumin/Globulin Ratio Triglycerides Cholesterol LDL Cholesterol Direct HDL Cholesterol Venous Blood Potassium 4.3 Blood Type Antibody Screen BBK History Checked 06/01/18 06/01/18 06/01/18 14:27 14:27 15:27 WBC RBC Hgb Hct MCV MCH MCHC RDW Plt Count MPV Neut % (Auto) Lymph % (Auto) [place] % (Auto) Eos % (Auto) Baso % (Auto) Neut # (Auto) Lymph # (Auto) [place] # (Auto) Eos # (Auto) Baso # (Auto) PT 10.8 INR 1.0 APTT 30.3 pO2 VBG pH VBG pCO2 VBG HCO3 VBG Total CO2 VBG O2 Sat (Calc) VBG Base Excess VBG Potassium Sodium 139 Chloride 105 Glucose Lactate FiO2 Potassium 4.4 Carbon Dioxide 29 Anion Gap 9 L BUN 33 H Creatinine 1.0 Est GFR ( Amer) > 60 Est GFR (Non-Af Amer) 55 POC Glucose (mg/dL) Random Glucose 62 L Calcium 9.3 Total Bilirubin 0.3 AST 21 ALT 17 Alkaline Phosphatase 54 Troponin I 0.0360 Total Protein 7.3 Albumin 3.7 Globulin 3.6 Albumin/Globulin Ratio 1.0 Triglycerides 71 D Cholesterol 162 LDL Cholesterol Direct 50 HDL Cholesterol 82 H Venous Blood Potassium Blood Type A POSITIVE Antibody Screen Negative BBK History Checked Patient has bt Assessment & Plan - Assessment and Plan (Free Text) Assessment: Pt is a 73 y/o female with hx of multiple CVA's, dementia, DM, HTN, HLD brought to ED by family as they noticed slurred speech and confusion yesterday evening which was worse today. ED staff also noted mild facial droop. Pt had accucheck of 60 but symptoms persisted after treating with D50. Neurology Consulted. Left sided Dysarthria, Facial Droop - Code Stroke in ED - Etiology: CVA vs Hypertensive encephalopathy. Hypoglycemia less likely. - Head CT: No acute intracranial hemorrhage, old infarcts - Head and Neck CTA: No evidence of hemodynamically significant stenosis in internal carotid arteries. 60% stenosis in proximal right ICA - EKG NSR, no ischemic changes. Troponin x1 negative - S/P ASA 325mg and Plavix 300mg load in ED - C/W daily ASA 81mg and Plavix 75mg - Neurology Consult, Dr. Lyons - Swallow screen - Cardiac Monitoring - Neuro checks q4 - Hg A1C, Lipid Panel DM - Metformin - Sitagliptin - F/U Hg A1C HTN -Hold antihypertensive meds to allow for permissive htn Diet -Cardiac, Diabetic -Needs to pass swallow first -Hx of dysphagia: [place] thick pureed liquid (from Speech eval last admission) DVT ppx - Lovenox 40sc daily GI ppx - Pepcid Discussed case with Dr. Dilia Arango, PGY2 <Sebastián Dobbs - Last Filed: 06/05/18 10:18> Results - Vital Signs Recent Vital Signs: Last Vital Signs Temp 97.9 F 06/05/18 08:00 Pulse 85 06/05/18 08:31 Resp 18 06/05/18 08:00 BP 187/79 H 06/05/18 08:31 Pulse Ox 94 L 06/05/18 08:00 - Labs Result Diagrams: 06/05/18 04:40 06/05/18 04:40 Labs: Laboratory Results - last 24 hr 06/04/18 06/04/18 06/04/18 11:20 15:27 16:22 WBC RBC Hgb Hct MCV MCH MCHC RDW Plt Count Sodium Potassium Chloride Carbon Dioxide Anion Gap BUN Creatinine Est GFR ( Amer) Est GFR (Non-Af Amer) POC Glucose (mg/dL) 202 H 137 H Random Glucose Calcium Total Bilirubin AST ALT Alkaline Phosphatase Total Protein Albumin Globulin Albumin/Globulin Ratio C. difficile Ag & Toxin Negative 06/04/18 06/05/18 06/05/18 21:44 04:40 04:40 WBC 4.7 L RBC 2.87 L Hgb 8.9 L Hct 26.4 L MCV 92.1 D MCH 31.0 MCHC 33.7 RDW 14.2 Plt Count 183 Sodium 140 Potassium 4.0 Chloride 105 Carbon Dioxide 28 Anion Gap 11 BUN 30 H Creatinine 1.2 Est GFR ( Amer) 53 Est GFR (Non-Af Amer) 44 POC Glucose (mg/dL) 206 H Random Glucose 129 H Calcium 9.0 Total Bilirubin 0.3 AST 16 ALT 19 Alkaline Phosphatase 54 Total Protein 6.7 Albumin 3.5 Globulin 3.2 Albumin/Globulin Ratio 1.1 C. difficile Ag & Toxin 06/05/18 05:52 WBC RBC Hgb Hct MCV MCH MCHC RDW Plt Count Sodium Potassium Chloride Carbon Dioxide Anion Gap BUN Creatinine Est GFR ( Amer) Est GFR (Non-Af Amer) POC Glucose (mg/dL) 128 H Random Glucose Calcium Total Bilirubin AST ALT Alkaline Phosphatase Total Protein Albumin Globulin Albumin/Globulin Ratio C. difficile Ag & Toxin Assessment & Plan - Assessment and Plan (Free Text) Assessment: Patient was personally seen and examined by me in rounds with residents. Available labs and diagnostic data reviewed. Case, Patient's condition and management plan discussed with residents in rounds. Agree with resident's progress note.
[2018-06-01 17:09] LABS: SQUAMOUS EPITHIAL 1 /hpf (0-5); URINE BACTERIA RARE (<OCC); URINE BILIRUBIN NEGATIVE (NEGATIVE); URINE BLOOD NEGATIVE (NEGATIVE); URINE CLARITY SLIGHTY-CLOUDY (Clear); URINE COLOR YELLOW (YELLOW); URINE GLUCOSE (UA) 50 mg/dL (NEGATIVE); URINE LEUKOCYTE ESTERASE MOD Leu/uL (Negative); URINE PROTEIN 30 mg/dL (NEGATIVE); URINE UROBILINOGEN 0.2-1.0 mg/dL (0.2-1.0)
--- NOTE | 2018-06-01 17:34 | RAD ---
Date of service: 06/01/2018 HISTORY: Code Stroke COMPARISON: 02/24/2018. FINDINGS: LUNGS: No active pulmonary disease. PLEURA: No significant pleural effusion identified, no pneumothorax apparent. CARDIOVASCULAR: Atherosclerotic calcification and mural plaque present. Findings are seen throughout the aorta No radiographic findings to suggest acute or significant cardiovascular disease. OSSEOUS STRUCTURES: No significant abnormalities. VISUALIZED UPPER ABDOMEN: Normal. OTHER FINDINGS: None. IMPRESSION: No active disease. No significant interval change compared to the prior examination(s).
--- NOTE | 2018-06-01 19:37 | CP.PCM.CON ---
History of Present Illness - History of Present Illness History of Present Illness: Neurology consult dictated. Patient came in as a code stroke, but was not TPA candidate, nor is she a thrombectomy candidate. Plan: 1. Neuro checks 2. MRI BRain without contrast 3. Aspirin 325 mg po daily 4. ECHo 5. PT ST OT 6. DVT prophylaxis Thank you Dr. Lyons Neurology Past Patient History - Past Medical History & Family History Past Medical History?: Yes - Past Social History Smoking Status: Never Smoked - CARDIAC Hx Atrial Fibrillation: No Hx Congestive Heart Failure: Yes Hx Hypercholesterolemia: Yes Hx Hypertension: Yes Hx Peripheral Edema: Yes - PULMONARY Hx Pneumonia: Yes (Aspiration pnuemonia) - NEUROLOGICAL Hx Alzheimer's Disease: Yes Hx Dementia: Yes - HEENT Hx HEENT Problems: No - RENAL Hx Chronic Kidney Disease: Yes - ENDOCRINE/METABOLIC Hx Endocrine Disorders: Yes - HEMATOLOGICAL/ONCOLOGICAL Hx Anemia: Yes Hx Human Immunodeficiency Virus (HIV): No - INTEGUMENTARY Hx Dermatological Problems: Yes - MUSCULOSKELETAL/RHEUMATOLOGICAL Hx Arthritis: Yes - GASTROINTESTINAL Hx Gastrointestinal Disorders: Yes Hx Gastroesophageal Reflux: Yes Hx Hemorrhoids: Yes Other/Comment: Hx rectal bleeding - GENITOURINARY/GYNECOLOGICAL Hx Genitourinary Disorders: Yes - PSYCHIATRIC Hx Depression: Yes - SURGICAL HISTORY Hx Surgeries: Yes Other/Comment: Hx PEG tube insertion and removal - ANESTHESIA Hx Anesthesia: Yes Hx Anesthesia Reactions: No Hx Malignant Hyperthermia: No Meds Allergies/Adverse Reactions: Allergies Allergy/AdvReac Type Severity Reaction Status Date / Time oxycodone Allergy RASH Verified 06/01/18 13:56 - Medications Medications: Current Medications Aspirin (Ecotrin) 81 mg PO DAILY [facility] Atorvastatin Calcium (Lipitor) 40 mg PO HS [facility] Clopidogrel Bisulfate (Plavix) 75 mg PO DAILY [facility] Donepezil HCl (Aricept) 10 mg PO HS [facility] Enoxaparin Sodium (Lovenox) 40 mg SC DAILY [facility]; Protocol Famotidine (Pepcid) 40 mg IVP DAILY [facility] Sodium Chloride (Sodium Chloride 0.9%) 1,000 mls @ 100 mls/hr IV .Q10H [facility] Last Admin: 06/01/18 15:02 Dose: 100 mls/hr Pioglitazone HCl (Actos) 45 mg PO DAILY [facility] Sitagliptin Phosphate (Januvia) 100 mg PO DAILY [facility] Results - Vital Signs Recent Vital Signs: Last Vital Signs Temp 98.2 F 06/01/18 18:08 Pulse 80 06/01/18 18:08 Resp 21 06/01/18 18:08 BP 158/79 H 06/01/18 18:08 Pulse Ox 100 06/01/18 16:58 - Labs Result Diagrams: 06/01/18 14:27 06/01/18 14:27 Labs: Laboratory Results - last 24 hr 06/01/18 06/01/18 06/01/18 14:03 14:22 14:27 WBC 6.6 RBC 3.10 L Hgb 9.7 L Hct 29.6 L MCV 95.4 D MCH 31.2 H MCHC 32.7 L RDW 14.9 H Plt Count 195 MPV 9.4 Neut % (Auto) 66.4 Lymph % (Auto) 22.2 [place] % (Auto) 9.1 Eos % (Auto) 1.5 Baso % (Auto) 0.8 Neut # (Auto) 4.4 Lymph # (Auto) 1.5 [place] # (Auto) 0.6 Eos # (Auto) 0.1 Baso # (Auto) 0.1 PT INR APTT pO2 33 VBG pH 7.35 VBG pCO2 61 H VBG HCO3 29.5 VBG Total CO2 35.6 H VBG O2 Sat (Calc) 69.4 H VBG Base Excess 6.7 H VBG Potassium 4.3 Sodium 139.0 Chloride 107.0 Glucose 66 Lactate 0.8 FiO2 21.0 Potassium Carbon Dioxide Anion Gap BUN Creatinine Est GFR ( Amer) Est GFR (Non-Af Amer) POC Glucose (mg/dL) 61 L Random Glucose Calcium Total Bilirubin AST ALT Alkaline Phosphatase Troponin I Total Protein Albumin Globulin Albumin/Globulin Ratio Triglycerides Cholesterol LDL Cholesterol Direct HDL Cholesterol Venous Blood Potassium 4.3 Urine Color Urine Clarity Urine pH Ur Specific [place] Urine Protein Urine Glucose (UA) Urine Ketones Urine Blood Urine Nitrate Urine Bilirubin Urine Urobilinogen Ur Leukocyte Esterase Urine RBC (Auto) Urine Microscopic WBC Ur Squamous Epith Cells Urine Bacteria Blood Type Antibody Screen BBK History Checked 06/01/18 06/01/18 06/01/18 14:27 14:27 15:27 WBC RBC Hgb Hct MCV MCH MCHC RDW Plt Count MPV Neut % (Auto) Lymph % (Auto) [place] % (Auto) Eos % (Auto) Baso % (Auto) Neut # (Auto) Lymph # (Auto) [place] # (Auto) Eos # (Auto) Baso # (Auto) PT 10.8 INR 1.0 APTT 30.3 pO2 VBG pH VBG pCO2 VBG HCO3 VBG Total CO2 VBG O2 Sat (Calc) VBG Base Excess VBG Potassium Sodium 139 Chloride 105 Glucose Lactate FiO2 Potassium 4.4 Carbon Dioxide 29 Anion Gap 9 L BUN 33 H Creatinine 1.0 Est GFR ( Amer) > 60 Est GFR (Non-Af Amer) 55 POC Glucose (mg/dL) Random Glucose 62 L Calcium 9.3 Total Bilirubin 0.3 AST 21 ALT 17 Alkaline Phosphatase 54 Troponin I 0.0360 Total Protein 7.3 Albumin 3.7 Globulin 3.6 Albumin/Globulin Ratio 1.0 Triglycerides 71 D Cholesterol 162 LDL Cholesterol Direct 50 HDL Cholesterol 82 H Venous Blood Potassium Urine Color Urine Clarity Urine pH Ur Specific [place] Urine Protein Urine Glucose (UA) Urine Ketones Urine Blood Urine Nitrate Urine Bilirubin Urine Urobilinogen Ur Leukocyte Esterase Urine RBC (Auto) Urine Microscopic WBC Ur Squamous Epith Cells Urine Bacteria Blood Type A POSITIVE Antibody Screen Negative BBK History Checked Patient has bt 06/01/18 16:46 WBC RBC Hgb Hct MCV MCH MCHC RDW Plt Count MPV Neut % (Auto) Lymph % (Auto) [place] % (Auto) Eos % (Auto) Baso % (Auto) Neut # (Auto) Lymph # (Auto) [place] # (Auto) Eos # (Auto) Baso # (Auto) PT INR APTT pO2 VBG pH VBG pCO2 VBG HCO3 VBG Total CO2 VBG O2 Sat (Calc) VBG Base Excess VBG Potassium Sodium Chloride Glucose Lactate FiO2 Potassium Carbon Dioxide Anion Gap BUN Creatinine Est GFR ( Amer) Est GFR (Non-Af Amer) POC Glucose (mg/dL) Random Glucose Calcium Total Bilirubin AST ALT Alkaline Phosphatase Troponin I Total Protein Albumin Globulin Albumin/Globulin Ratio Triglycerides Cholesterol LDL Cholesterol Direct HDL Cholesterol Venous Blood Potassium Urine Color Yellow Urine Clarity Slighty-cloudy Urine pH 6.0 Ur Specific [place] 1.029 Urine Protein 30 Urine Glucose (UA) 50 Urine Ketones Negative Urine Blood Negative Urine Nitrate Negative Urine Bilirubin Negative Urine Urobilinogen 0.2-1.0 Ur Leukocyte Esterase Mod Urine RBC (Auto) 2 Urine Microscopic WBC 30 H Ur Squamous Epith Cells 1 Urine Bacteria Rare Blood Type Antibody Screen BBK History Checked
[2018-06-02 06:14] LABS: BLOOD UREA NITROGEN 22 mg/dl (7-17); CALCIUM 8.9 mg/dL (8.4-10.2); GFR NON-AFRICAN AMERICAN > 60
[2018-06-02 06:27] LABS: HEMOGLOBIN 9.1 g/dL (12.0-16.0); MEAN CELL VOLUME 95.4 fl (81.0-99.0); MEAN CORPUSCULAR HEMOGLOBIN 30.9 pg (27.0-31.0); MEAN CORPUSCULAR HGB CONC 32.3 g/dL (33.0-37.0); RBC 2.94 Mil/uL (3.80-5.20); RED CELL DISTRIBUTION WIDTH 14.9 % (11.5-14.5); WHITE BLOOD COUNT 5.6 K/uL (4.8-10.8)
--- NOTE | 2018-06-02 07:35 | CON ---
DATE: 06/01/2018 Neurology consult called by Dr. Layton Mayer. HISTORY OF PRESENT ILLNESS: Ms. Black came in as code stroke at 1413 today with change in mental status. The patient had dysarthria, facial droop, mental status change per family report at wakening earlier today. She said she was not a tPA candidate due to unknown time of onset. Of note, she had a past history of brainstem infarct in 02/2018. Today in the ER, Dr. Mayer noted that she was incontinent with confusion, dysarthria, new facial droop. However, the time of onset was not known. On my examination early today, the patient did indeed have a left minimal facial droop with some upper nystagmus. However, she was awake, alert, and oriented x1; and she was able to follow commands, and I also presume that she had dysarthria; tPA was not given. NIH stroke scale was approximately 6. The patient was admitted to telemetry unit. Vital signs in the ER were normal except her blood pressure was 184/81. REVIEW OF SYSTEMS: Not significant for any headache, nausea, vomiting, or diarrhea. MEDICATIONS: At the time, the patient is on aspirin, Plavix, Cozaar, Januvia, Lipitor, Aricept, insulin, and Actos. PAST MEDICAL HISTORY: Hypertension, diabetes, dementia. ALLERGIES: SHE IS ALLERGIC TO OXYCODONE. PAST SURGICAL HISTORY: None. FAMILY HISTORY AND SOCIAL HISTORY: She lives with family. PHYSICAL EXAMINATION: GENERAL: The patient was alert, awake, and oriented x1. HEENT: Pupils equal, round, and reactive to light. NEUROLOGIC: Cranial nerves II through XII normal. Mini-mental status was 10/30. The patient was not responding appropriately. Exam was conducted in [place]ic. Speech is dysarthric. There was some mild left-sided facial asymmetry just compared to the right. The patient is following commands albeit slowly. She is able to move all extremities, 5/5. Sensory was not accurate. Gait was not tested per the patient's request. Reflexes are +2 in upper and lower limbs bilaterally. She was able to lift both of her legs with good strength. There was no weakness in her arms or legs. There was no perceived cranial nerve deficits. IMAGING: CAT scan was done which is within normal limits. CT of the head was done and showed the following: The CT of the head and neck showed no evidence of intraluminal prominence and there was 60% stenosis in the proximal right ICA. The CTA of the head and neck was reviewed with the endovascular team, and with the and there was no occlusion noted. LABORATORY DATA: Labs were as follows: Hemoglobin and hematocrit 9.7 and 29.6. Chemistry: BUN 32, creatinine 1, glucose 62, cholesterol 82, LDL 50, total cholesterol 162. Urine only showed microscopic white blood cell 30. IMPRESSION: This is a 73-year-old woman with possible right brainstem or middle cerebral artery stroke. She is not a tissue plasminogen activator candidate due to unknown onset of symptoms. PLAN: Neuro checks. Admit to telemetry. MRI of the brain as soon as impossible. Aspirin and Plavix. Continue normal saline. Please keep blood pressure elevated around 180/90 with IV fluids. Do not low blood pressure at this time please. PT, ST, OT. DVT prophylaxis with Venodyne. Thank you for this interesting consult. Our team will follow. Jagdeep Lyons MD
--- NOTE | 2018-06-02 08:27 | CP.PCM.PN ---
<NbaNathan - Last Filed: 06/02/18 08:07> Subjective - Date & Time of Evaluation Date of Evaluation: 06/02/18 Time of Evaluation: 07:00 - Subjective Subjective: Pt seen and examined this morning at the bedside with Dr. Dobbs. No new focal deficits noted. No concerns or complaints. Seen resting comfortably. Objective - Vital Signs/Intake and Output Vital Signs (last 24 hours): Temp Pulse Resp BP Pulse Ox 98.3 F 92 H 17 156/69 H 93 L 06/02/18 04:50 06/02/18 04:50 06/02/18 04:50 06/02/18 04:50 06/02/18 04:50 - Medications Medications: Current Medications Aspirin (Ecotrin) 81 mg PO DAILY [facility] Atorvastatin Calcium (Lipitor) 40 mg PO HS [facility] Last Admin: 06/01/18 23:16 Dose: 40 mg Clopidogrel Bisulfate (Plavix) 75 mg PO DAILY [facility] Donepezil HCl (Aricept) 10 mg PO HS [facility] Enoxaparin Sodium (Lovenox) 40 mg SC DAILY [facility]; Protocol Famotidine (Pepcid) 40 mg IVP DAILY [facility] Sodium Chloride (Sodium Chloride 0.9%) 1,000 mls @ 100 mls/hr IV .Q10H [facility] Last Admin: 06/01/18 23:15 Dose: 100 mls/hr Pioglitazone HCl (Actos) 45 mg PO DAILY [facility] Sitagliptin Phosphate (Januvia) 100 mg PO DAILY [facility] - Labs Labs: 06/02/18 04:55 06/02/18 04:55 PT 10.8 Seconds (9.8-13.1) 06/01/18 15:27 INR 1.0 06/01/18 15:27 APTT 30.3 Seconds (25.6-37.1) 06/01/18 15:27 - Constitutional Appears: No Acute Distress - Head Exam Head Exam: NORMAL INSPECTION - Eye Exam Eye Exam: Normal appearance - ENT Exam ENT Exam: Mucous Membranes Moist - Respiratory Exam Respiratory Exam: Clear to Ausculation Bilateral - Cardiovascular Exam Cardiovascular Exam: REGULAR RHYTHM - Extremities Exam Extremities Exam: Normal Inspection - Neurological Exam Neurological Exam: Alert - Psychiatric Exam Psychiatric exam: Normal Affect Assessment and Plan - Assessment and Plan (Free Text) Assessment: Pt is a 73 y/o female with hx of multiple CVA's, dementia, DM, HTN, HLD brought to ED by family as they noticed slurred speech and confusion yesterday evening which was worse today. ED staff also noted mild facial droop. Pt had accucheck of 60 but symptoms persisted after treating with D50. Neurology Consulted. Left sided Dysarthria, Facial Droop - Code Stroke in ED - Not candidate for TPA - Etiology: CVA vs Hypertensive encephalopathy. Hypoglycemia less likely. - Head CT: No acute intracranial hemorrhage, old infarcts - Head and Neck CTA: No evidence of hemodynamically significant stenosis in internal carotid arteries. 60% stenosis in proximal right ICA - EKG NSR, no ischemic changes. Troponin x1 negative - S/P ASA 325mg and Plavix 300mg load in ED - C/W daily ASA 81mg and Plavix 75mg - Neurology Consult, Dr. Lyons. - Brain MRI w/o contrast, Echo - Speech and Swallow Eval - PT/OT - Cardiac Monitoring - Neuro checks q4 - Hg A1C, Lipid Panel DM - Metformin - Sitagliptin - F/U Hg A1C HTN -Hold antihypertensive meds to allow for permissive htn Diet -Cardiac, Diabetic -Needs to pass swallow first -Hx of dysphagia: [place] thick pureed liquid (from Speech eval last admission) DVT ppx - Lovenox 40sc daily GI ppx - Pepcid Discussed case with Dr. Dilia Arango, PGY2 <Sebastián Dobbs - Last Filed: 06/05/18 10:17> Objective - Vital Signs/Intake and Output Vital Signs (last 24 hours): Temp Pulse Resp BP Pulse Ox 97.9 F 85 18 187/79 H 94 L 06/05/18 08:00 06/05/18 08:31 06/05/18 08:00 06/05/18 08:31 06/05/18 08:00 Intake and Output: 06/04/18 06/05/18 23:59 11:59 Intake Total 1200 Balance 1200 - Medications Medications: Current Medications Amlodipine Besylate (Norvasc) 5 mg PO DAILY [facility] Last Admin: 06/05/18 08:31 Dose: 5 mg Aspirin (Ecotrin) 81 mg PO DAILY [facility] Last Admin: 06/05/18 08:30 Dose: 81 mg Atorvastatin Calcium (Lipitor) 40 mg PO HS [facility] Last Admin: 06/04/18 21:37 Dose: 40 mg Bismuth Subsalicylate (Pepto-Bismol) 524 mg PO Q1 PRN PRN Reason: Diarrhea Last Admin: 06/05/18 08:27 Dose: 524 mg Carvedilol (Coreg) 12.5 mg PO Q12 [facility] Last Admin: 06/05/18 08:29 Dose: 12.5 mg Ciprofloxacin (Cipro) 500 mg PO Q12 [facility]; Protocol Last Admin: 06/05/18 08:29 Dose: 500 mg Clopidogrel Bisulfate (Plavix) 75 mg PO DAILY [facility] Last Admin: 06/05/18 08:31 Dose: 75 mg Donepezil HCl (Aricept) 10 mg PO HS [facility] Last Admin: 06/04/18 23:00 Dose: Not Given Famotidine (Pepcid) 40 mg IVP DAILY [facility] Last Admin: 06/05/18 08:35 Dose: 40 mg Insulin Human Regular (Humulin R) 0 units SC ACHS [facility]; Protocol Last Admin: 06/05/18 08:30 Dose: Not Given Pioglitazone HCl (Actos) 45 mg PO DAILY [facility] Last Admin: 06/05/18 08:28 Dose: 45 mg Sitagliptin Phosphate (Januvia) 100 mg PO DAILY [facility] Last Admin: 06/05/18 08:30 Dose: 100 mg - Labs Labs: 06/05/18 04:40 06/05/18 04:40 PT 10.8 Seconds (9.8-13.1) 06/01/18 15:27 INR 1.0 06/01/18 15:27 APTT 30.3 Seconds (25.6-37.1) 06/01/18 15:27 Assessment and Plan - Assessment and Plan (Free Text) Assessment: Patient was personally seen and examined by me in rounds with residents. Available labs and diagnostic data reviewed. Case, Patient's condition and management plan discussed with residents in rounds. Agree with resident's progress note.
[2018-06-02] MEDS: Enoxaparin 40 mg Syringe SC SCH (08:55)
--- NOTE | 2018-06-02 10:57 | CP.PCM.PN ---
Subjective - Date & Time of Evaluation Date of Evaluation: 06/02/18 Time of Evaluation: 10:55 - Subjective Subjective: Neuro F/U Note: Mrs. Corral was evaluated this morning at bedside. Pt denies any complaints or distress. She states that she feels better today and is eager to go home. No further dysarthria. Denies h/a, dizziness, visual changes, chest pain, sob, abd pain, paresthesias. Objective - Vital Signs/Intake and Output Vital Signs (last 24 hours): Temp Pulse Resp BP Pulse Ox 97.9 F 94 H 18 158/81 H 93 L 06/02/18 08:00 06/02/18 08:00 06/02/18 08:00 06/02/18 08:00 06/02/18 08:00 - Medications Medications: Current Medications Aspirin (Ecotrin) 81 mg PO DAILY [facility] Last Admin: 06/02/18 08:56 Dose: 81 mg Atorvastatin Calcium (Lipitor) 40 mg PO HS [facility] Last Admin: 06/01/18 23:16 Dose: 40 mg Clopidogrel Bisulfate (Plavix) 75 mg PO DAILY [facility] Last Admin: 06/02/18 08:56 Dose: 75 mg Donepezil HCl (Aricept) 10 mg PO HS [facility] Enoxaparin Sodium (Lovenox) 40 mg SC DAILY [facility]; Protocol Last Admin: 06/02/18 08:55 Dose: 40 mg Famotidine (Pepcid) 40 mg IVP DAILY [facility] Last Admin: 06/02/18 08:58 Dose: 40 mg Sodium Chloride (Sodium Chloride 0.9%) 1,000 mls @ 100 mls/hr IV .Q10H [facility] Last Admin: 06/01/18 23:15 Dose: 100 mls/hr Pioglitazone HCl (Actos) 45 mg PO DAILY [facility] Last Admin: 06/02/18 08:56 Dose: 45 mg Sitagliptin Phosphate (Januvia) 100 mg PO DAILY [facility] Last Admin: 06/02/18 08:55 Dose: 100 mg - Labs Labs: 06/02/18 04:55 06/02/18 04:55 PT 10.8 Seconds (9.8-13.1) 06/01/18 15:27 INR 1.0 06/01/18 15:27 APTT 30.3 Seconds (25.6-37.1) 06/01/18 15:27 - Constitutional Appears: Well, Non-toxic, No Acute Distress - Head Exam Head Exam: ATRAUMATIC, NORMAL INSPECTION, NORMOCEPHALIC - Eye Exam Eye Exam: EOMI, Normal appearance, PERRL Pupil Exam: NORMAL ACCOMODATION, PERRL - ENT Exam ENT Exam: Mucous Membranes Moist - Neck Exam Neck Exam: Full ROM, Normal Inspection - Respiratory Exam Respiratory Exam: NORMAL BREATHING PATTERN - Extremities Exam Extremities Exam: Full ROM. absent: Calf Tenderness, Pedal Edema Additional comments: generalized BLE weakness 2/2 deconditioning. - Neurological Exam Neurological Exam: Alert, Awake, CN II-XII Intact, Reflexes Normal Neuro motor strength exam: Left Upper Extremity: 5, Right Upper Extremity: 5, Left Lower Extremity: 4 Additional comments: Speech clear, fluid No focal motor or sensory deficits. Weakness to BLE 2/2 deconditioning. No tremors. - Psychiatric Exam Psychiatric exam: Normal Affect, Normal Mood - Skin Skin Exam: Normal Color Assessment and Plan (1) Dysarthria Assessment & Plan: Imaging reviewed: -MRI Brain (06/01/18): Slightly limited motion degraded study. No evidence of acute hemorrhage or infarct. Multiple chronic appearing infarct changes scattered about the deep and subcortical white matter, both basal nuclei and brainstem. May also be a small chronic lacune in the left cerebellum. Moderate to fairly significant generalized volume loss. -CTA Head and Neck (06/01/18): 1. No evidence of endoluminal thrombus,occlusion or definite significant stenosis in the intracranial arteries. 2. No evidence of hemodynamically significant stenosis in the internal carotid arteries. There is approximately 60% stenosis in the proximal right ICA. 3. Patent bilateral vertebral arteries. -CT Head (06/01/18): No acute intracranial abnormalities. No significant findings to account for the clinical presentation. Atrophy, small vessel disease, multi old infarcts. Documentation on CT of brainstem infarct noted on recent MRI. -Pending report of ECHO--please note, pt had no ASD detected on ECHO w Bubble done on 02/24/18. -Continue ASA, Plavix, Statin upon d/c. -Continue PT/OT -Pt can f/u with PMD and neuro as outpatient. -Notify neuro of any acute change in pt's condition. Reconsult prn. Thank you for this consultation. Denisse Poon, DNP, PATIENT SERVICE REP Discussed with Dr. Lyons Status: Acute
--- NOTE | 2018-06-02 11:10 | MRI ---
Date of service: 06/02/2018 PROCEDURE: MRI BRAIN WITHOUT CONTRAST HISTORY: r/o cva COMPARISON: Comparison made with prior CT scan and CTA brain both dated 06/01/2017. Comparison also made with prior MRI of the brain 02/25/2018. TECHNIQUE: Multiplanar, multisequence MR images of the brain were obtained without intravenous contrast enhancement. FINDINGS: This examination is somewhat limited by motion artifact HEMORRHAGE: No acute parenchymal, subarachnoid nor extra-axial hemorrhage.. No evidence of hemosiderin deposition is identified on gradient echo weighted sequence. DWI: No evidence of restricted diffusion seen on diffusion imaging to suggest acute or subacute infarct on this exam. Redemonstrated is a ribbon of restricted diffusion in the right mid frontal cortex at the level of the lateral ventricles most consistent with shine through artifact. Previously noted restricted diffusion in the left parasagittal and mid wade region is no longer visible on diffusion sequence. BRAIN PARENCHYMA: Multiple of small chronic appearing infarcts scattered about the deep and subcortical white matter as well as both basal nuclei and brainstem are present. Minimal slightly confluent prolonged T2 signal changes are also seen in the periventricular white matter. There may also be a tiny chronic appearing infarct in the left medial hemisphere/vermis. Moderate to fairly significant generalized volume loss. VENTRICLES: No obstructive hydrocephalus. CRANIUM: Unremarkable. ORBITS: Changes of bilateral cataract surgery again seen. Orbits and contents otherwise unremarkable PARANASAL SINUSES/MASTOIDS: Clear VASCULAR SYSTEM: Visualized major vascular flow voids at skull base patent. OTHER FINDINGS: None. IMPRESSION: Slightly limited motion degraded study. No evidence of acute hemorrhage or infarct... Multiple chronic appearing infarct changes scattered about the deep and subcortical white matter, both basal nuclei and brainstem. May also be a small chronic lacune in the left cerebellum. Moderate to fairly significant generalized volume loss.
[2018-06-02] MEDS: Sodium Chloride 0.9% 1,000 ML IV SCH ×2 (12:35→19:58)
--- NOTE | 2018-06-02 17:53 | CARD ---
APPROVED REPORT Date of service: 06/02/2018 EXAM: Two-dimensional and M-mode echocardiogram with Doppler and color Doppler. Other Information Quality : GoodRhythm : NSR INDICATION CVA/TIA 2D DIMENSIONS IVSd1.51 (0.7-1.1cm)LVDd5.34 (3.9-5.9cm) LVOT Diameter1.99 (1.8-2.4cm)PWd0.99 (0.7-1.1cm) IVSs1.37 (0.8-1.2cm)LVDs3.88 (2.5-4.0cm) FS (%) 27.2 %PWs1.40 (0.8-1.2cm) M-Mode DIMENSIONS Left Atrium (MM)3.53 (2.5-4.0cm)IVSd1.18 (0.7-1.1cm) Aortic Root3.24 (2.2-3.7cm)LVDd5.26 (4.0-5.6cm) Aortic Cusp Exc.1.91 (1.5-2.0cm)PWd1.09 (0.7-1.1cm) IVSs1.74 cmFS (%) 34 % LVDs3.47 (2.0-3.8cm)PWs1.65 cm Aortic Valve AoV Peak Rvreymky553.7cm/sAoV VTI27.4cmAO Peak GR.8mmHg LVOT Peak Fssdaoip44.9cm/sLVOT VTI19.60cmAO Mean GR.4mmHg JOHN (VMAX)1.25oq7ZPO (VTI)1.11cm2 Mitral Valve MV E Nbgruhvp67.1cm/sMV DECEL [id number] A Cxpcktda531.2cm/s MV NYF12maG/A ratio0.7MVA (PHT)3.90cm2 TDI Lateral E' Peak V5.46cm/sMedial E' Peak V8.47cm/sE/Lateral E'13.8 E/Medial E'8.9 Tricuspid Valve TR Peak Dxhvvtdk237ny/sRAP WQSEAANC70spOySY Peak Gr.36mmHg ZKCH66dnOf LEFT VENTRICLE The left ventricle is normal size. There is normal left ventricular wall thickness. The left ventricular systolic function is normal. The estimated ejection fraction is 55-60% No regional wall motion abnormalities noted.. Transmitral Doppler flow pattern is Grade I-abnormal relaxation pattern. No left ventricle thrombus noted on this study. There is no ventricular septal defect visualized. There is no left ventricular aneurysm. There is no mass noted in the left ventricle. RIGHT VENTRICLE The right ventricle is normal size. There is normal right ventricular wall thickness. The right ventricular systolic function is normal. ATRIA The left atrium is mildly dilated. The right atrium size is normal. The interatrial septum is intact with no evidence for an atrial septal defect. AORTIC VALVE The aortic valve is normal in structure. No aortic regurgitation is present. There is no aortic valvular stenosis. There is no aortic valvular vegetation. MITRAL VALVE The mitral valve is normal in structure. There is no evidence of mitral valve prolapse. There is no mitral valve stenosis. There is mild mitral valve regurgitation noted. Mitral regurgitation is mild. TRICUSPID VALVE The tricuspid valve is normal in structure. There is mild tricuspid valve regurgitation noted. RVSP is calculated at 42 mm Hg. There is no tricuspid valve prolapse or vegetation. There is no tricuspid valve stenosis. PULMONIC VALVE The pulmonary valve is normal in structure. There is no pulmonic valvular regurgitation. There is no pulmonic valvular stenosis. GREAT VESSELS The aortic root is normal in size. The ascending aorta is normal in size. The pulmonary artery is normal. The IVC is normal in size and collapses >50% with inspiration. PERICARDIAL EFFUSION There is no pericardial effusion. There is no pleural effusion. <Conclusion> The estimated ejection fraction is 55-60% Transmitral Doppler flow pattern is Grade I-abnormal relaxation pattern. The left atrium is mildly dilated. There is mild tricuspid valve regurgitation noted. RVSP is calculated at 42 mm Hg.
[2018-06-02] MEDS: Insulin Regular 100 units/ml SC SCH (22:11)
--- NOTE | 2018-06-02 22:35 | CARD ---
APPROVED REPORT Date of service: 06/01/2018 EKG Measurement Heart [id number] <Conclusion> Normal sinus rhythm Normal ECG
[2018-06-03] MEDS ORDERED: Alum-Mag Hydrox-Simethicone Susp (30 mL) PO ONE (03:44)
--- NOTE | 2018-06-03 04:00 | CP.PCM.PCO ---
Addendum Addendum: 06/03/18 03:47 73 y/o F complained of epigastric pain. Pt is a poor historian, conversation in czech. Pt reports epigastric pain is severe. Pt keeps hitting her stomach in effort to relief pain. Pt denies nausea, acid reflux but wants to vomit to see if pain relieves like that. Pt also complains of severe low back pain by the coccyx area. VS wnl except for elevated BP 155/77. Pt looks uncomfortable, tenderness on epigastric area, BS present and normoactive, no guarding, no rebound tenderness, low back seems tender. Not able to get a straight history, will try IV Toradol for both pains, and then PO Bentyl and PO Maalox for abd pain.
[2018-06-03 06:20] LABS: BASO % 0.7 % (0.0-2.0); EOS # 0.1 K/uL (0.0-0.7); EOS % 2.2 % (0.0-4.0); HEMOGLOBIN 9.3 g/dL (12.0-16.0); LYMPH # 1.1 K/uL (1.0-4.3); LYMPH % 23.5 % (20.0-40.0); MEAN CELL VOLUME 94.1 fl (81.0-99.0); MEAN CORPUSCULAR HEMOGLOBIN 30.8 pg (27.0-31.0); MEAN CORPUSCULAR HGB CONC 32.7 g/dL (33.0-37.0); MEAN PLATELET VOLUME 9.7 fl (7.2-11.7); MONO # 0.4 K/uL (0.0-0.8); NEUT % 64.6 % (50.0-75.0); NRBC % 0.1 % (0.0-0.0); RBC 3.01 Mil/uL (3.80-5.20); RED CELL DISTRIBUTION WIDTH 14.4 % (11.5-14.5); WHITE BLOOD COUNT 4.7 K/uL (4.8-10.8)
[2018-06-03 06:34] LABS: BLOOD UREA NITROGEN 26 mg/dl (7-17); GFR NON-AFRICAN AMERICAN 55
[2018-06-03] MEDS: Insulin Regular 100 units/ml SC SCH ×4 (06:57→22:17)
[2018-06-03] MEDS: Enoxaparin 40 mg Syringe SC SCH (09:06)
--- NOTE | 2018-06-03 10:48 | PN ---
DATE: 06/03/2018 SUBJECTIVE: The patient is seen and examined. Interim events noted. Consults noted and appreciated. Neurology followup and interventions noted and appreciated. The patient remains in progressive care unit on telemetry. The patient is sleeping, arousable. The patient denies any new complaint of chest pain or shortness of breath. PHYSICAL EXAMINATION: GENERAL: The patient is in no acute distress. VITAL SIGNS: Stable. HEART: S1, S2 normal and regular. LUNGS: Good bilateral air exchange. ABDOMEN: Soft, nontender. EXTREMITIES: No edema, no calf swelling, no tenderness, no acute ischemia. CENTRAL NERVOUS SYSTEM: Exam is essentially unchanged. DIAGNOSTIC DATA: Available diagnostic data reviewed. MRI is unremarkable. Telemetry monitoring does not show significant arrhythmias. ASSESSMENT AND PLAN: Overall, the patient's general medical condition is stable. Plan as ordered. Sebastián Dobbs MD
[2018-06-04 06:13] LABS: HEMOGLOBIN 8.9 g/dL (12.0-16.0); MEAN CELL VOLUME 94.5 fl (81.0-99.0); MEAN CORPUSCULAR HEMOGLOBIN 31.5 pg (27.0-31.0); MEAN CORPUSCULAR HGB CONC 33.4 g/dL (33.0-37.0); RBC 2.82 Mil/uL (3.80-5.20); RED CELL DISTRIBUTION WIDTH 14.5 % (11.5-14.5); WHITE BLOOD COUNT 3.9 K/uL (4.8-10.8)
[2018-06-04 06:30] LABS: ALB/GLOB RATIO 1.1 (1.0-2.1); ALBUMIN 3.4 g/dL (3.5-5.0); ALT/SGPT 20 U/L (9-52); AST/SGOT 16 U/L (14-36); BLOOD UREA NITROGEN 26 mg/dl (7-17); CALCIUM 8.6 mg/dL (8.4-10.2); GFR NON-AFRICAN AMERICAN 55
[2018-06-04] MEDS: Insulin Regular 100 units/ml SC SCH ×4 (06:47→22:00)
[2018-06-04] MEDS: Enoxaparin 40 mg Syringe SC SCH (09:58)
--- NOTE | 2018-06-04 10:12 | PN ---
DATE: 06/04/2018 SUBJECTIVE: The patient is seen and examined. Interim events noted. Consults noted and appreciated. The patient remains in the intensive care unit, on telemetry monitoring. Denies any specific complaint. No urinary symptoms. No specific issues reported by nursing staff. PHYSICAL EXAMINATION GENERAL: The patient is in no acute distress. VITAL SIGNS: Stable. HEART: S1 and S2, normal and regular. LUNGS: Good bilateral air exchange. ABDOMEN: Soft and nontender. EXTREMITIES: No edema. No calf swelling. No tenderness. No acute ischemia. CENTRAL NERVOUS SYSTEM: Exam is essentially unchanged. DIAGNOSTIC DATA: Available diagnostic data reviewed. Telemetry monitoring does not show any significant arrhythmia. ASSESSMENT AND PLAN: Overall, the patient's general medical condition is stable. Urine culture shows 50 to 100,000 . Plan as ordered. Sebastián Dobbs MD
[2018-06-04] MEDS: Bismuth Subsalicylate 262 mg/15 ml Sus (240 ml) PO PRN (17:46)
--- NOTE | 2018-06-04 19:26 | CP.PCM.CON ---
History of Present Illness - History of Present Illness History of Present Illness: Consultation for NSVT HPI: telemetry reviewed - artifact with underlying ventricular spikes Past Patient History - Past Medical History & Family History Past Medical History?: Yes - Past Social History Smoking Status: Never Smoked - CARDIAC Hx Atrial Fibrillation: No Hx Congestive Heart Failure: Yes Hx Hypercholesterolemia: Yes Hx Hypertension: Yes Hx Peripheral Edema: Yes - PULMONARY Hx Pneumonia: Yes (Aspiration pnuemonia) - NEUROLOGICAL Hx Alzheimer's Disease: Yes Hx Dementia: Yes - HEENT Hx HEENT Problems: No - RENAL Hx Chronic Kidney Disease: Yes - ENDOCRINE/METABOLIC Hx Endocrine Disorders: Yes - HEMATOLOGICAL/ONCOLOGICAL Hx Anemia: Yes Hx Human Immunodeficiency Virus (HIV): No - INTEGUMENTARY Hx Dermatological Problems: Yes - MUSCULOSKELETAL/RHEUMATOLOGICAL Hx Arthritis: Yes - GASTROINTESTINAL Hx Gastrointestinal Disorders: Yes Hx Gastroesophageal Reflux: Yes Hx Hemorrhoids: Yes Other/Comment: Hx rectal bleeding - GENITOURINARY/GYNECOLOGICAL Hx Genitourinary Disorders: Yes - PSYCHIATRIC Hx Depression: Yes - SURGICAL HISTORY Hx Surgeries: Yes Other/Comment: Hx PEG tube insertion and removal - ANESTHESIA Hx Anesthesia: Yes Hx Anesthesia Reactions: No Hx Malignant Hyperthermia: No Meds Allergies/Adverse Reactions: Allergies Allergy/AdvReac Type Severity Reaction Status Date / Time oxycodone Allergy RASH Verified 06/01/18 13:56 - Medications Medications: Current Medications Amlodipine Besylate (Norvasc) 5 mg PO DAILY [facility] Last Admin: 06/04/18 10:05 Dose: 5 mg Aspirin (Ecotrin) 81 mg PO DAILY [facility] Last Admin: 06/04/18 09:57 Dose: 81 mg Atorvastatin Calcium (Lipitor) 40 mg PO HS [facility] Last Admin: 06/03/18 21:21 Dose: 40 mg Bismuth Subsalicylate (Pepto-Bismol) 524 mg PO Q1 PRN PRN Reason: Diarrhea Last Admin: 06/04/18 17:46 Dose: 524 mg Carvedilol (Coreg) 12.5 mg PO Q12 [facility] Last Admin: 06/04/18 09:57 Dose: 12.5 mg Ciprofloxacin (Cipro) 500 mg PO Q12 [facility]; Protocol Last Admin: 06/04/18 09:56 Dose: 500 mg Clopidogrel Bisulfate (Plavix) 75 mg PO DAILY [facility] Last Admin: 06/04/18 10:07 Dose: 75 mg Donepezil HCl (Aricept) 10 mg PO HS [facility] Last Admin: 06/03/18 21:21 Dose: 10 mg Enoxaparin Sodium (Lovenox) 40 mg SC DAILY [facility]; Protocol Last Admin: 06/04/18 09:58 Dose: 40 mg Famotidine (Pepcid) 40 mg IVP DAILY [facility] Last Admin: 06/04/18 10:17 Dose: 40 mg Insulin Human Regular (Humulin R) [address] [facility]; Protocol Last Admin: 06/04/18 17:40 Dose: Not Given Pioglitazone HCl (Actos) 45 mg PO DAILY [facility] Last Admin: 06/04/18 09:56 Dose: 45 mg Sitagliptin Phosphate (Januvia) 100 mg PO DAILY [facility] Last Admin: 06/04/18 09:58 Dose: 100 mg Results - Vital Signs Recent Vital Signs: Last Vital Signs Temp 97.8 F 06/04/18 15:51 Pulse 71 06/04/18 15:51 Resp 20 06/04/18 15:51 BP 152/77 H 06/04/18 15:51 Pulse Ox 96 06/04/18 15:51 - Labs Result Diagrams: 06/04/18 04:25 06/04/18 04:25 Labs: Laboratory Results - last 24 hr 06/03/18 06/04/18 06/04/18 21:26 04:25 04:25 WBC 3.9 L RBC 2.82 L Hgb 8.9 L Hct 26.7 L MCV 94.5 MCH 31.5 H MCHC 33.4 RDW 14.5 Plt Count 175 Sodium 139 Potassium 3.9 Chloride 103 Carbon Dioxide 30 Anion Gap 10 BUN 26 H Creatinine 1.0 Est GFR ( Amer) > 60 Est GFR (Non-Af Amer) 55 POC Glucose (mg/dL) 189 H Random Glucose 131 H Calcium 8.6 Total Bilirubin 0.3 AST 16 ALT 20 Alkaline Phosphatase 52 Total Protein 6.5 Albumin 3.4 L Globulin 3.1 Albumin/Globulin Ratio 1.1 C. difficile Ag & Toxin 06/04/18 06/04/18 06/04/18 06:00 11:20 15:27 WBC RBC Hgb Hct MCV MCH MCHC RDW Plt Count Sodium Potassium Chloride Carbon Dioxide Anion Gap BUN Creatinine Est GFR ( Amer) Est GFR (Non-Af Amer) POC Glucose (mg/dL) 135 H 202 H Random Glucose Calcium Total Bilirubin AST ALT Alkaline Phosphatase Total Protein Albumin Globulin Albumin/Globulin Ratio C. difficile Ag & Toxin Negative 06/04/18 16:22 WBC RBC Hgb Hct MCV MCH MCHC RDW Plt Count Sodium Potassium Chloride Carbon Dioxide Anion Gap BUN Creatinine Est GFR ( Amer) Est GFR (Non-Af Amer) POC Glucose (mg/dL) 137 H Random Glucose Calcium Total Bilirubin AST ALT Alkaline Phosphatase Total Protein Albumin Globulin Albumin/Globulin Ratio C. difficile Ag & Toxin
[2018-06-05 05:49] LABS: HEMOGLOBIN 8.9 g/dL (12.0-16.0); MEAN CORPUSCULAR HGB CONC 33.7 g/dL (33.0-37.0); RBC 2.87 Mil/uL (3.80-5.20); RED CELL DISTRIBUTION WIDTH 14.2 % (11.5-14.5); WHITE BLOOD COUNT 4.7 K/uL (4.8-10.8)
[2018-06-05 06:06] LABS: MEAN CELL VOLUME 92.1 fl (81.0-99.0)
[2018-06-05 06:10] LABS: ALB/GLOB RATIO 1.1 (1.0-2.1); ALBUMIN 3.5 g/dL (3.5-5.0)
[2018-06-05] MEDS: Bismuth Subsalicylate 262 mg/15 ml Sus (240 ml) PO PRN ×2 (08:27→11:08)
[2018-06-05] MEDS: Insulin Regular 100 units/ml SC SCH ×4 (08:30→21:35)
[2018-06-05] MEDS: Enoxaparin 40 mg Syringe SC SCH (08:31)
--- NOTE | 2018-06-05 10:48 | PN ---
DATE: 06/05/2018 SUBJECTIVE: The patient seen and examined. Interim events noted. Consults noted and appreciated. The patient remains in the intensive care unit with telemetry monitoring. The patient feels okay now. There is no specific complaint. No chest pain. No shortness of breath. PHYSICAL EXAMINATION: GENERAL: The patient is in no acute distress. VITAL SIGNS: Stable. HEART: S1 and S2, normal and regular. LUNGS: Good bilateral air exchange. ABDOMEN: Soft and nontender. EXTREMITIES: No edema. No calf swelling. No tenderness. No acute ischemia. CENTRAL NERVOUS SYSTEM: Exam is essentially unchanged. DIAGNOSTIC DATA: Available diagnostic data reviewed. Telemetry monitoring does not reveal significant arrhythmias. ASSESSMENT AND PLAN: Physical therapy evaluation noted and appreciated. The patient is for subacute rehab. Sebastián Dobbs MD
[2018-06-06 06:07] LABS: MEAN CORPUSCULAR HEMOGLOBIN 30.5 pg (27.0-31.0); MEAN CORPUSCULAR HGB CONC 32.6 g/dL (33.0-37.0); RBC 2.93 Mil/uL (3.80-5.20); RED CELL DISTRIBUTION WIDTH 14.5 % (11.5-14.5)
[2018-06-06 06:08] LABS: HEMOGLOBIN 8.9 g/dL (12.0-16.0); MEAN CELL VOLUME 93.5 fl (81.0-99.0)
[2018-06-06 06:10] LABS: ALB/GLOB RATIO 1.2 (1.0-2.1); ALBUMIN 3.6 g/dL (3.5-5.0); CALCIUM 8.9 mg/dL (8.4-10.2)
[2018-06-06] MEDS: Insulin Regular 100 units/ml SC SCH ×2 (06:59→11:33)
[2018-06-06 07:46] VITALS: RESP 18
[2018-06-06] MEDS ORDERED: Enoxaparin 40 mg Syringe SC SCH (09:00)
[2018-06-06] MEDS ORDERED: Famotidine 40 MG/5 ML PO SCH (09:00)
[2018-06-06 12:00] VITALS: BP 140/57; PULSE 65; TEMP 98.2; O2SAT 100
--- NOTE | 2018-06-06 12:39 | CP.PCM.PN ---
Subjective - Date & Time of Evaluation Date of Evaluation: 06/06/18 Time of Evaluation: 12:36 - Subjective Subjective: Angela Centeno, PGY-1, Cardiology Progress Note for Dr. Ching Patient seen and examined at bedside. Patient had no acute overnight events. Patient denies any acute events at this time. Objective - Vital Signs/Intake and Output Vital Signs (last 24 hours): Temp Pulse Resp BP Pulse Ox 98.2 F 65 18 140/57 L 100 06/06/18 11:59 06/06/18 11:59 06/06/18 11:59 06/06/18 11:59 06/06/18 11:59 - Medications Medications: Current Medications Amlodipine Besylate (Norvasc) 5 mg PO DAILY [facility] Last Admin: 06/06/18 09:36 Dose: 5 mg Aspirin (Ecotrin) 81 mg PO DAILY [facility] Last Admin: 06/06/18 09:32 Dose: 81 mg Atorvastatin Calcium (Lipitor) 40 mg PO HS [facility] Last Admin: 06/05/18 21:34 Dose: 40 mg Bismuth Subsalicylate (Pepto-Bismol) 524 mg PO Q1 PRN PRN Reason: Diarrhea Last Admin: 06/05/18 11:08 Dose: 524 mg Carvedilol (Coreg) 12.5 mg PO Q12 [facility] Last Admin: 06/06/18 09:35 Dose: 12.5 mg Ciprofloxacin (Cipro) 500 mg PO Q12 [facility]; Protocol Last Admin: 06/06/18 09:35 Dose: 500 mg Clopidogrel Bisulfate (Plavix) 75 mg PO DAILY [facility] Last Admin: 06/06/18 09:35 Dose: 75 mg Donepezil HCl (Aricept) 10 mg PO HS [facility] Last Admin: 06/05/18 21:34 Dose: 10 mg Enoxaparin Sodium (Lovenox) 40 mg SC DAILY [facility]; Protocol Last Admin: 06/06/18 09:36 Dose: 40 mg Famotidine (Pepcid) 20 mg PO DAILY [facility] Last Admin: 06/06/18 10:28 Dose: 20 mg Insulin Human Regular (Humulin R) 0 units SC ACHS [facility]; Protocol Last Admin: 06/06/18 11:33 Dose: Not Given Nystatin (Nystop Topical Powder) 1 applic TOP TID [facility] Last Admin: 06/06/18 09:36 Dose: 1 applic Pioglitazone HCl (Actos) 45 mg PO DAILY [facility] Last Admin: 06/06/18 09:32 Dose: 45 mg Sitagliptin Phosphate (Januvia) 100 mg PO DAILY [facility] Last Admin: 06/06/18 09:36 Dose: 100 mg - Labs Labs: 06/06/18 05:05 06/06/18 05:05 PT 10.8 Seconds (9.8-13.1) 06/01/18 15:27 INR 1.0 06/01/18 15:27 APTT 30.3 Seconds (25.6-37.1) 06/01/18 15:27 - Constitutional Appears: Well, Non-toxic, No Acute Distress - Head Exam Head Exam: ATRAUMATIC, NORMAL INSPECTION, NORMOCEPHALIC - Eye Exam Eye Exam: EOMI, PERRL - Neck Exam Neck Exam: Full ROM - Respiratory Exam Respiratory Exam: Clear to Ausculation Bilateral, NORMAL BREATHING PATTERN - Cardiovascular Exam Cardiovascular Exam: REGULAR RHYTHM, RRR, +S1, +S2 - GI/Abdominal Exam GI & Abdominal Exam: Soft, Normal Bowel Sounds. absent: Tenderness - Extremities Exam Extremities Exam: Full ROM - Neurological Exam Neurological Exam: Alert, Awake, CN II-XII Intact - Skin Skin Exam: Dry, Intact, Normal Color Assessment and Plan - Assessment and Plan (Free Text) Assessment: NSVT Anemia Diastolic CHF CVA Type II Diabetes HTN hyperlipidemia CKD Plan: NSVT Anemia Diastolic CHF CVA Type II Diabetes HTN hyperlipidemia CKD EKG: NSR Echo: LVEF 55-60%, LA mildly dilated, mild TR, Grade I abnormal relaxation pattern, RVSP 42mmHg Brain MRI: no acute infarct. Multiple chronic infarct changes scattered about the deep and subcortical white matter, both basal nuclei and brainstem. Head/Neck CTA: proximal Right ICA stenosis of 60% Trop: 0.03 HgbA1c: 9.6 BUN/Cr: 30/1.2 LDL: 50 HDL: 82 Chol: 162 T NSVT likely artifact Medications: Norvasc 5 mg daily aspirin 81 mg daily lipitor 40 mg daily coreg 12.5 mg daily cipro 500 mg Q12 plavix 75 mg daily pioglitazone sitagliptin
--- NOTE | 2018-06-07 08:22 | CP.PCM.DIS ---
Provider - Provider Date of Admission: 06/01/18 14:56 Attending physician: Sebastián Dobbs MD Consults: 06/01/18 14:12 Stroke Team Consult Stat Comment: Consulting Provider: Neurohospitalist Consulting Physician: NEUROHOSP Neurohospitalist for Consult: Leroy Alberts Neurohospitalist for Consult: Jagdeep Lyons Reason for Consult: AMS facial droop 06/01/18 15:57 Neurology Consult Stat Comment: Consulting Provider: Jagdeep Lyons Consulting Physician: Jagdeep Lyons Reason for Consult: stroke like symptoms 06/01/18 21:03 Nursing Referral for Wound Care Routine Comment: Physician Instructions: Reason For Exam: As per Admission Assessment 06/03/18 09:28 Cardiology Consult Routine Comment: Consulting Provider: Mick Ching Consulting Physician: Mick Ching Reason for Consult: Cardiac arrhythmia Time Spent in preparation of Discharge (in minutes): 35 Diagnosis - Discharge Diagnosis (1) Dysarthria Status: Resolved (2) Facial droop Status: Resolved (3) Hypoglycemia Status: Resolved Hospital Course - Lab Results Lab Results: Micro Results 06/01/18 17:30 Blood Blood Culture - Final NO GROWTH AFTER 5 DAYS 06/01/18 17:30 Blood Gram Stain - Final TEST NOT PERFORMED 06/01/18 16:46 Blood Blood Culture - Final NO GROWTH AFTER 5 DAYS 06/01/18 16:46 Blood Gram Stain - Final TEST NOT PERFORMED 06/01/18 16:46 Urine Random Urine Culture - Final Escherichia Coli Most Recent Lab Values WBC 7.0 K/uL (4.8-10.8) 06/06/18 05:05 RBC 2.93 Mil/uL (3.80-5.20) L 06/06/18 05:05 Hgb 8.9 g/dL (12.0-16.0) L 06/06/18 05:05 Hct 27.4 % (34.0-47.0) L 06/06/18 05:05 MCV 93.5 fl (81.0-99.0) 06/06/18 05:05 MCH 30.5 pg (27.0-31.0) 06/06/18 05:05 MCHC 32.6 g/dL (33.0-37.0) L 06/06/18 05:05 RDW 14.5 % (11.5-14.5) 06/06/18 05:05 Plt Count 199 K/uL (130-400) 06/06/18 05:05 MPV 9.7 fl (7.2-11.7) 06/03/18 04:30 Neut % (Auto) 64.6 % (50.0-75.0) 06/03/18 04:30 Lymph % (Auto) 23.5 % (20.0-40.0) 06/03/18 04:30 [place] % (Auto) 9.0 % (0.0-10.0) 06/03/18 04:30 Eos % (Auto) 2.2 % (0.0-4.0) 06/03/18 04:30 Baso % (Auto) 0.7 % (0.0-2.0) 06/03/18 04:30 Neut # (Auto) 3.0 K/uL (1.8-7.0) 06/03/18 04:30 Lymph # (Auto) 1.1 K/uL (1.0-4.3) 06/03/18 04:30 [place] # (Auto) 0.4 K/uL (0.0-0.8) 06/03/18 04:30 Eos # (Auto) 0.1 K/uL (0.0-0.7) 06/03/18 04:30 Baso # (Auto) 0.0 K/uL (0.0-0.2) 06/03/18 04:30 PT 10.8 Seconds (9.8-13.1) 06/01/18 15:27 INR 1.0 06/01/18 15:27 APTT 30.3 Seconds (25.6-37.1) 06/01/18 15:27 pO2 33 mm/Hg (30-55) 06/01/18 14:22 VBG pH 7.35 (7.32-7.43) 06/01/18 14:22 VBG pCO2 61 mmHg (40-60) H 06/01/18 14:22 VBG HCO3 29.5 mmol/L 06/01/18 14:22 VBG Total CO2 35.6 mmol/L (22-28) H 06/01/18 14:22 VBG O2 Sat (Calc) 69.4 % (40-65) H 06/01/18 14:22 VBG Base Excess 6.7 mmol/L (0.0-2.0) H 06/01/18 14:22 VBG Potassium 4.3 mmol/L (3.6-5.2) 06/01/18 14:22 Sodium 139.0 mmol/L (132-148) 06/01/18 14:22 Chloride 107.0 mmol/L (98-107) 06/01/18 14:22 Glucose 66 mg/dL (65-105) 06/01/18 14:22 Lactate 0.8 mmol/L (0.7-2.1) 06/01/18 14:22 FiO2 21.0 % 06/01/18 14:22 Sodium 138 mmol/l (132-148) 06/06/18 05:05 Potassium 4.2 MMOL/L (3.6-5.0) 06/06/18 05:05 Chloride 105 mmol/L (98-107) 06/06/18 05:05 Carbon Dioxide 25 mmol/L (22-30) 06/06/18 05:05 Anion Gap 12 (10-20) 06/06/18 05:05 BUN 37 mg/dl (7-17) H 06/06/18 05:05 Creatinine 1.2 mg/dl (0.7-1.2) 06/06/18 05:05 Est GFR ( Amer) 53 06/06/18 05:05 Est GFR (Non-Af Amer) 44 06/06/18 05:05 POC Glucose (mg/dL) 119 mg/dL (65-110) H 06/06/18 10:52 Random Glucose 111 mg/dL (65-105) H 06/06/18 05:05 Hemoglobin A1c 9.6 % (4.2-6.5) H 06/01/18 14:27 Calcium 8.9 mg/dL (8.4-10.2) 06/06/18 05:05 Total Bilirubin 0.3 mg/dl (0.2-1.3) 06/06/18 05:05 AST 21 U/L (14-36) 06/06/18 05:05 ALT 20 U/L (9-52) 06/06/18 05:05 Alkaline Phosphatase 51 U/L (38-126) 06/06/18 05:05 Troponin I 0.0360 ng/mL (0.00-0.120) 06/01/18 14:27 Total Protein 6.8 G/DL (6.3-8.2) 06/06/18 05:05 Albumin 3.6 g/dL (3.5-5.0) 06/06/18 05:05 Globulin 3.1 gm/dL (2.2-3.9) 06/06/18 05:05 Albumin/Globulin Ratio 1.2 (1.0-2.1) 06/06/18 05:05 Triglycerides 71 mg/DL (0-149) D 06/01/18 14:27 Cholesterol 162 mg/dL (0-199) 06/01/18 14:27 LDL Cholesterol Direct 50 mg/dL (0-129) 06/01/18 14:27 HDL Cholesterol 82 MG/DL (30-70) H 06/01/18 14:27 Venous Blood Potassium 4.3 mmol/L (3.6-5.2) 06/01/18 14:22 Urine Color Yellow (YELLOW) 06/01/18 16:46 Urine Clarity Slighty-cloudy (Clear) 06/01/18 16:46 Urine pH 6.0 (5.0-8.0) 06/01/18 16:46 Ur Specific [place] 1.029 (1.003-1.030) 06/01/18 16:46 Urine Protein 30 mg/dL (NEGATIVE) 06/01/18 16:46 Urine Glucose (UA) 50 mg/dL (NEGATIVE) 06/01/18 16:46 Urine Ketones Negative mg/dL (NEGATIVE) 06/01/18 16:46 Urine Blood Negative (NEGATIVE) 06/01/18 16:46 Urine Nitrate Negative (NEGATIVE) 06/01/18 16:46 Urine Bilirubin Negative (NEGATIVE) 06/01/18 16:46 Urine Urobilinogen 0.2-1.0 mg/dL (0.2-1.0) 06/01/18 16:46 Ur Leukocyte Esterase Mod Jr/uL (Negative) 06/01/18 16:46 Urine RBC (Auto) 2 /hpf (0-3) 06/01/18 16:46 Urine Microscopic WBC 30 /hpf (0-5) H 06/01/18 16:46 Ur Squamous Epith Cells 1 /hpf (0-5) 06/01/18 16:46 Urine Bacteria Rare (<OCC) 06/01/18 16:46 C. difficile Ag & Toxin Negative (NEGATIVE) 06/04/18 15:27 Blood Type A POSITIVE 06/01/18 14:27 Antibody Screen Negative 06/01/18 14:27 BBK History Checked Patient has bt 06/01/18 14:27 - Hospital Course Hospital Course: Pt is a 73 y/o female with hx of multiple CVA's, dementia, DM, HTN, HLD brought to ED by family on 06/01 as they noticed acute onset of slurred speech and confusion. EMS noted at time, she had a Accucheck of 30 and was given D50. ED staff also noted mild facial droop. Neurology was consulted. Pt had Head CT w hich was negative acute intracranial hemorrhage but there were old infarcts noted. Pt also had Head and Neck CTA which reported no evidence of hemodynamically significant stenosis in internal carotid arteries; 60% stenosis in proximal right ICA. Brain MRI was negative for any acute ischemic events. Echo was normal. Pt was given stat dose of ASA and Plavix load in ED and monitored in telemetry. Her symptoms resolved by the next day. She was also noted to have brief episode of NSVT on telemetry monitor which cardiology reported was likely an artifact. She was cleared for discharge by neurology who stated her symptoms were likely a sequel of hypoglycemia and advised outpatient follow up. No changes were made to home medications. Discharge Exam - Head Exam Head Exam: ATRAUMATIC, NORMAL INSPECTION, NORMOCEPHALIC - Eye Exam Eye Exam: Normal appearance - ENT Exam ENT Exam: Mucous Membranes Moist - Respiratory Exam Respiratory Exam: Clear to PA & Lateral - Cardiovascular Exam Cardiovascular Exam: REGULAR RHYTHM - GI/Abdominal Exam GI & Abdominal Exam: Normal Bowel Sounds, Soft. absent: Tenderness - Neurological Exam Neurological exam: Alert, CN II-XII Intact, Oriented x3 - Psychiatric Exam Psychiatric exam: Normal Affect - Skin Skin Exam: Normal Color Discharge Plan - Follow Up Plan Condition: FAIR Disposition: REHAB FACILITY/REHAB UNIT Instructions: Dysarthria, Stroke (DC), Altered Mental Status (DC) Referrals: Sebastián Dobbs MD [Staff Provider] - 06/12/18 1:00 pm Pito Babb MD [Staff Provider] -
== END 2018-06-06 15:15 | DRG 65 ==
LOC: H.ER 13:48 → H.ERHOLD 14:56 → H.TEL 18:09
PROVIDERS: ADMIT Internal Medicine; ATTEND Internal Medicine
DX: I63.511 Cerebral infarction due to unspecified occlusion or stenosis of right middle cerebral artery (principal); I47.2 Ventricular tachycardia; I50.30 Unspecified diastolic (congestive) heart failure; I13.0 Hypertensive heart and chronic kidney disease with heart failure and stage 1 through stage 4 chronic kidney disease, or unspecified chronic kidney disease; R29.706 NIHSS score 6; I10 Essential (primary) hypertension; E11.9 Type 2 diabetes mellitus without complications; F02.80 Dementia in other diseases classified elsewhere, unspecified severity, without behavioral disturbance, psychotic disturbance, mood disturbance, and anxiety; D64.9 Anemia, unspecified; E11.22 Type 2 diabetes mellitus with diabetic chronic kidney disease; E78.5 Hyperlipidemia, unspecified; E78.00 Pure hypercholesterolemia, unspecified; G30.9 Alzheimer's disease, unspecified; N18.9 Chronic kidney disease, unspecified; Z79.82 Long term (current) use of aspirin; Z79.02 Long term (current) use of antithrombotics/antiplatelets; Z87.01 Personal history of pneumonia (recurrent); Z86.73 Personal history of transient ischemic attack (TIA), and cerebral infarction without residual deficits; Z87.440 Personal history of urinary (tract) infections; K21.9 Gastro-esophageal reflux disease without esophagitis; E11.649 Type 2 diabetes mellitus with hypoglycemia without coma; I07.1 Rheumatic tricuspid insufficiency; R47.1 Dysarthria and anarthria

== ENCOUNTER 2018-07-27 08:24 | Emergency (ER) | payer MEDICARE, OTHER ==
[2018-07-27 08:31] VITALS: BMI 38.9
[2018-07-27 08:32] VITALS: BP 206/94; PULSE 78; RESP 16; TEMP 98.4; O2SAT 96
[2018-07-27] MEDS ORDERED: Tetracaine 0.5% Ophth 2 ML BOTTLE OS ONE (09:10)
--- NOTE | 2018-07-27 09:10 | ED PDOC ---
HPI: Skin/Bite Injury Time Seen by Provider: 07/27/18 08:28 Chief Complaint (Provider): eye problem History Per: Family History/Exam Limitations: no limitations Onset/Duration Of Symptoms: Days (xlast night) Current Symptoms Are (Timing): Still Present Additional Complaint(s): 73 year old female with medical history of diabetes, Alzheimer's disease, hypertension, and high cholesterol, is brought into the emergency department for an evaluation of left eye burning sensation and redness status post wiping eye with a napkin last night. She denies any visual changes, numbness, tingling, recent URI symptoms, or new falls. Of note, patient has daily Plavix use. Past Medical History Reviewed: Historical Data, Nursing Documentation, Vital Signs Vital Signs: Last Vital Signs Temp 98.4 F 07/27/18 08:31 Pulse 78 07/27/18 08:31 Resp 16 07/27/18 08:31 BP 206/94 H 07/27/18 08:31 Pulse Ox 96 07/27/18 08:31 Primary Care Provider: Sebastián Dobbs - Medical History PMH: Alzheimer's Disease, Anemia, Arthritis, CHF, CVA, Dementia, Depression, Diabetes (type 2, NIDDM), HTN, Hypercholesterolemia, Hyperlipidemia, Peripheral Edema, Pneumonia (Aspiration pnuemonia), Chronic Kidney Disease Denies: Atrial Fibrillation, HIV - Family History Family History: States: Unknown Family Hx - Immunization History Hx Tetanus Toxoid Vaccination: No Hx Influenza Vaccination: No Hx Pneumococcal Vaccination: No - Home Medications Home Medications: Ambulatory Orders Medication Instructions Recorded Atorvastatin [Lipitor] 40 mg PO HS 06/01/18 Acetaminophen [Tylenol 325mg tab] 2 tab PO Q4H PRN 07/01/18 Calmoseptine Ointment TOP QSHIFT 07/01/18 Vitamin A & D [Vitamin A & D Oint 1 oin TP QSHIFT 07/01/18 UD Foilpak] Aluminum Hydroxide/Magnesium H 30 ml PO Q4H PRN #30 07/05/18 [Maalox 30 ml] Aspirin [Ecotrin] 81 mg PO DAILY tabec 07/05/18 Carvedilol [Coreg] 12.5 mg PO BID tab 07/05/18 Clopidogrel [Plavix] 75 mg PO DAILY tab 07/05/18 Donepezil [Aricept] 10 mg PO HS tab 07/05/18 Ferrous Sulfate [Feosol] 325 mg PO DAILY tab 07/05/18 Folic Acid 1 mg PO DAILY tab 07/05/18 Insulin Aspart, Recombinant 0 unit SC ACHS unit 07/05/18 [Novolog] Insulin Glargine, Recombina 10 unit SC Q12H unit 07/05/18 [Lantus] Losartan [Cozaar] 50 mg PO DAILY tab 07/05/18 SITagliptin [Januvia] 100 mg PO DAILY tab 07/05/18 Vitamin E [Vitamin E 400 Units Cap] 400 intlu PO DAILY cap 07/05/18 amLODIPine [Norvasc] 10 mg PO DAILY tab 07/05/18 Acetaminophen [Tylenol 325mg tab] 650 mg PO TID PRN 5 Days tab 07/27/18 Ciprofloxacin 0.3% [Ciloxan 0.3% 2 drop LEFTEYE QID 7 Days bottle 07/27/18 Ophth SOLN] - Allergies Allergies/Adverse Reactions: Allergies Allergy/AdvReac Type Severity Reaction Status Date / Time oxycodone Allergy RASH Verified 07/01/18 10:58 Review of Systems ROS Statement: Except As Marked, All Systems Reviewed And Found Negative Eyes: Positive for: Pain (left-sided burning and itching), Redness (left-sided). Negative for: Vision Change ENT: Negative for: Nose Congestion, Throat Pain Cardiovascular: Negative for: Chest Pain Respiratory: Negative for: Cough, Shortness of Breath Neurological: Negative for: Numbness (or tingling) Physical Exam - Reviewed Nursing Documentation Reviewed: Yes Vital Signs Reviewed: Yes - Physical Exam Appears: Positive for: No Acute Distress, Uncomfortable Head Exam: Positive for: ATRAUMATIC, NORMAL INSPECTION, NORMOCEPHALIC Skin: Positive for: Normal Color Eye Exam: Positive for: EOMI, PERRL, Other (no surrounding echymosis; No schleral injection; fluorescein uptake at 9 o' clock; no foreign body under lids.). Negative for: Periorbital swelling, Periorbital tenderness (bilaterally) ENT: Positive for: Normal ENT Inspection Neck: Positive for: Normal Cardiovascular/Chest: Positive for: Regular Rate, Rhythm Respiratory: Positive for: Normal Breath Sounds. Negative for: Respiratory Distress Pulses-Radial (L): 2+ Pulses-Radial (R): 2+ Extremity: Positive for: Pedal Edema (chronic, trace bilaterally) Neurological/Psych: Positive for: Awake, Alert, wrapper sizer II-XII (grossly intact). Negative for: Motor/Sensory Deficits, Facial Droop - ECG O2 Sat by Pulse Oximetry: 96 (RA) Pulse Ox Interpretation: Normal - Progress ED Course And Treament: 1208: Will dc with eye drops. FU with optho. AAOx3. Family at bedside. BP improved. Medical Decision Making Medical Decision Making: Time: 840 Initial Plan: * [id number] OS * Tetracaine 0.5% OS * Tylenol PO Scribe Attestation: Documented by Dalila Hammer, acting as a scribe for Chino Perez MD. Provider Scribe Attestation: All medical record entries made by the Scribe were at my direction and personally dictated by me. I have reviewed the chart and agree that the record accurately reflects my personal performance of the history, physical exam, medical decision making, and the department course for this patient. I have also personally directed, reviewed, and agree with the discharge instructions and disposition. Disposition - Clinical Impression Clinical Impression: Corneal abrasion, HTN (hypertension) - Patient ED Disposition Is Patient to be Admitted: No Counseled Patient/Family Regarding: Diagnosis, Need For Followup, Rx Given - Disposition Referrals: Sebastián Dobbs MD [Staff Provider] - 07/28/18 Duke Leong MD [Staff Provider] - 07/28/18 Disposition: Routine/Home Disposition Time: 12:10 Condition: STABLE Additional Instructions: Return if not better in 3 days. Prescriptions: Acetaminophen [Tylenol 325mg tab] 650 mg PO TID PRN 5 Days tab PRN Reason: Pain, Moderate (4-7) Ciprofloxacin 0.3% [Ciloxan 0.3% Ophth SOLN] 2 drop LEFTEYE QID 7 Days bottle Instructions: Corneal Abrasion, High Blood Pressure in Adults Print Language: M[place]
[2018-07-27] MEDS ORDERED: Fluorescein 1 mg Ophthalmic Strip OS ONE (09:15)
[2018-07-27] MEDS ORDERED: Fluorescein 1 mg Ophthalmic Strip ONE (11:08)
[2018-07-27] MEDS ORDERED: Tetracaine 0.5% Ophth 2 ML BOTTLE ONE (11:08)
== END 2018-07-27 12:22 | disposition home or self-care (01) ==
LOC: H.ER 08:24
DX: S05.02XA Injury of conjunctiva and corneal abrasion without foreign body, left eye, initial encounter (principal); X58.XXXA Exposure to other specified factors, initial encounter; Y92.89 Other specified places as the place of occurrence of the external cause

== ENCOUNTER 2018-08-02 18:03 | Observation (INO) | payer OTHER ==
[2018-08-02 18:03] VITALS: BMI 38.9
--- NOTE | 2018-08-02 20:08 | ED PDOC ---
HPI: General Adult Time Seen by Provider: 08/02/18 19:01 Chief Complaint (Nursing): Rib Injury Chief Complaint (Provider): RIB CAGE PAIN Past Medical History Reviewed: Historical Data, Nursing Documentation, Vital Signs Vital Signs: Last Vital Signs Temp 98.3 F 08/02/18 18:38 Pulse 71 08/02/18 18:38 Resp 15 08/02/18 18:38 BP 135/81 08/02/18 18:38 Pulse Ox 96 08/02/18 18:38 Primary Care Provider: Sebastián Dobbs - Medical History PMH: Alzheimer's Disease, Anemia, Arthritis, CHF, CVA, Dementia, Depression, Di abetes (type 2, NIDDM), HTN, Hypercholesterolemia, Hyperlipidemia, Peripheral Edema, Pneumonia (Aspiration pnuemonia), Chronic Kidney Disease Denies: Atrial Fibrillation, HIV - Surgical History Surgical History: No Surg Hx - Family History Family History: States: Unknown Family Hx - Living Arrangements Living Arrangements: With Family - Social History Alcohol: None Drugs: Denies - Immunization History Hx Tetanus Toxoid Vaccination: No Hx Influenza Vaccination: No Hx Pneumococcal Vaccination: No - Home Medications Home Medications: Ambulatory Orders Medication Instructions Recorded Atorvastatin [Lipitor] 40 mg PO HS 06/01/18 Acetaminophen [Tylenol 325mg tab] 2 tab PO Q4H PRN 07/01/18 Calmoseptine Ointment TOP QSHIFT 07/01/18 Vitamin A & D [Vitamin A & D Oint 1 oin TP QSHIFT 07/01/18 UD Foilpak] Aluminum Hydroxide/Magnesium H 30 ml PO Q4H PRN #30 07/05/18 [Maalox 30 ml] Aspirin [Ecotrin] 81 mg PO DAILY tabec 07/05/18 Carvedilol [Coreg] 12.5 mg PO BID tab 07/05/18 Clopidogrel [Plavix] 75 mg PO DAILY tab 07/05/18 Donepezil [Aricept] 10 mg PO HS tab 07/05/18 Ferrous Sulfate [Feosol] 325 mg PO DAILY tab 07/05/18 Folic Acid 1 mg PO DAILY tab 07/05/18 Insulin Aspart, Recombinant 0 unit SC ACHS unit 07/05/18 [Novolog] Insulin Glargine, Recombina 10 unit SC Q12H unit 07/05/18 [Lantus] Losartan [Cozaar] 50 mg PO DAILY tab 07/05/18 SITagliptin [Januvia] 100 mg PO DAILY tab 07/05/18 Vitamin E [Vitamin E 400 Units Cap] 400 intlu PO DAILY cap 07/05/18 amLODIPine [Norvasc] 10 mg PO DAILY tab 07/05/18 Acetaminophen [Tylenol 325mg tab] 650 mg PO TID PRN 5 Days tab 07/27/18 Ciprofloxacin 0.3% [Ciloxan 0.3% 2 drop LEFTEYE QID 7 Days bottle 07/27/18 Ophth SOLN] - Allergies Allergies/Adverse Reactions: Allergies Allergy/AdvReac Type Severity Reaction Status Date / Time oxycodone Allergy RASH Verified 08/02/18 18:36 Review of Systems ROS Statement: Except As Marked, All Systems Reviewed And Found Negative Constitutional: Negative for: Fever, Chills, Weakness, Malaise Cardiovascular: Positive for: Chest Pain (RIGHT SIDED RIB PAIN) Respiratory: Positive for: Shortness of Breath. Negative for: Cough, SOB with Exertion, Wheezing Gastrointestinal: Negative for: Nausea, Vomiting, Abdominal Pain, Diarrhea, Constipation Genitourinary Female: Negative for: Dysuria, Hematuria Skin: Negative for: Rash Neurological: Negative for: Altered Mental Status Physical Exam - Reviewed Nursing Documentation Reviewed: Yes Vital Signs Reviewed: Yes - Physical Exam Appears: Positive for: Well, Non-toxic, No Acute Distress Head Exam: Positive for: ATRAUMATIC, NORMAL INSPECTION, NORMOCEPHALIC Skin: Positive for: Normal Color, Warm, DRY Eye Exam: Positive for: EOMI, Normal appearance, PERRL ENT: Positive for: Normal ENT Inspection Neck: Positive for: Normal, Painless ROM, Supple Cardiovascular/Chest: Positive for: Regular Rate, Rhythm Respiratory: Positive for: CNT, Normal Breath Sounds Gastrointestinal/Abdominal: Positive for: Normal Exam, Bowel Sounds (NORMOACTIVE ), Soft, Tenderness (RUQ) Back: Positive for: Normal Inspection Extremity: Positive for: Normal ROM Neurological/Psych: Positive for: Awake, Alert, Normal Tone, Oriented (PERSON ONLY. PER THIS IS PATIENTS BASELINE. ). Negative for: Facial Droop - Laboratory Results Result Diagrams: 08/02/18 20:12 08/02/18 20:12 - ECG O2 Sat by Pulse Oximetry: 96 Medical Decision Making Medical Decision Making: --CBC --CMP --LIPASE --BNP --UA --URINE CX --RIB XRAY WITH CHEST --VBG --BLOOD CX X2 --CT HEAD 2000: CASE DISCUSSED WITH DR. APPIAH WHO AGREES WITH PLAN. PATIENT ENDORSED TO MORENA MONTES TO FOLLOW -UP WITH LABS, CT HEAD AND CHEST XRAY. Disposition - Clinical Impression Clinical Impression: Rib pain - Patient ED Disposition Is Patient to be Admitted: Transfer of Care - Disposition Disposition: Transfer of Care Disposition Time: 20:00 Condition: STABLE Forms: [employer] ([employer]) Patient Signed Over To: Morena Sparrow Handoff Comments: FOLLOW-UP ON LABS AND CT HEAD - POA Present On Arrival: None
[2018-08-02 20:19] LABS: BASO % 0.7 % (0.0-2.0); EOS # 0.1 K/uL (0.0-0.7); EOS % 3.2 % (0.0-4.0); HEMOGLOBIN 8.9 g/dL (12.0-16.0); MEAN CELL VOLUME 94.1 fl (81.0-99.0); MEAN CORPUSCULAR HEMOGLOBIN 30.8 pg (27.0-31.0); MEAN CORPUSCULAR HGB CONC 32.7 g/dL (33.0-37.0); MEAN PLATELET VOLUME 9.5 fl (7.2-11.7); MONO # 0.4 K/uL (0.0-0.8); MONO % 8.8 % (0.0-10.0); NEUT # 2.7 K/uL (1.8-7.0); NEUT % 63.3 % (50.0-75.0); NRBC % 0.3 % (0.0-0.0); RBC 2.88 Mil/uL (3.80-5.20); RED CELL DISTRIBUTION WIDTH 15.1 % (11.5-14.5); WHITE BLOOD COUNT 4.3 K/uL (4.8-10.8)
[2018-08-02 20:33] LABS: ALB/GLOB RATIO 1.1 (1.0-2.1); ALBUMIN 3.9 g/dL (3.5-5.0); ALT/SGPT 21 U/L (9-52); AST/SGOT 17 U/L (14-36); BLOOD UREA NITROGEN 34 mg/dl (7-17); CALCIUM 8.5 mg/dL (8.4-10.2); GFR NON-AFRICAN AMERICAN > 60; LIPASE 76 U/L (23-300)
[2018-08-02 20:43] LABS: VENOUS BLOOD GAS BASE EXCESS 3.9 mmol/L (0.0-2.0); VENOUS BLOOD GAS PCO2 70 mmHg (40-60); VENOUS BLOOD GAS PO2 43 mm/Hg (30-55); VENOUS BLOOD PH 7.28 (7.32-7.43)
[2018-08-02 20:45] LABS: B-TYPE NATRIURETIC PEPTIDE 1090 pg/ml (0-900)
--- NOTE | 2018-08-02 21:15 | ED PDOC ---
- Laboratory Results Result Diagrams: 08/02/18 20:12 08/02/18 20:12 Lab Results: pO2 43 mm/Hg (30-55) 08/02/18 20:10 VBG pH 7.28 (7.32-7.43) L 08/02/18 20:10 VBG pCO2 70 mmHg (40-60) H* 08/02/18 20:10 VBG HCO3 27.3 mmol/L 08/02/18 20:10 VBG Total CO2 35.0 mmol/L (22-28) H 08/02/18 20:10 VBG O2 Sat (Calc) 78.4 % (40-65) H 08/02/18 20:10 VBG Base Excess 3.9 mmol/L (0.0-2.0) H 08/02/18 20:10 VBG Potassium 4.6 mmol/L (3.6-5.2) 08/02/18 20:10 Sodium 138.0 mmol/L (132-148) 08/02/18 20:10 Chloride 104.0 mmol/L (98-107) 08/02/18 20:10 Glucose 245 mg/dL (65-105) H 08/02/18 20:10 Lactate 0.9 mmol/L (0.7-2.1) 08/02/18 20:10 FiO2 21.0 % 08/02/18 20:10 Crit Value Called To Kamron mcclellan michelle 08/02/18 20:10 Crit Value Called By 23 08/02/18 20:10 Crit Value Read Back Y 08/02/18 20:10 Blood Gas Notified Time 203908/02/18 20:10 Troponin I < 0.0120 ng/mL (0.00-0.120) 08/02/18 20:12 NT-Pro-B Natriuret Pep 1090 pg/ml (0-900) H 08/02/18 20:12 Total Bilirubin 0.3 mg/dl (0.2-1.3) 08/02/18 20:12 AST 17 U/L (14-36) 08/02/18 20:12 ALT 21 U/L (9-52) 08/02/18 20:12 Alkaline Phosphatase 53 U/L (38-126) 08/02/18 20:12 Total Protein 7.4 G/DL (6.3-8.2) 08/02/18 20:12 Albumin 3.9 g/dL (3.5-5.0) 08/02/18 20:12 Globulin 3.5 gm/dL (2.2-3.9) 08/02/18 20:12 Albumin/Globulin Ratio 1.1 (1.0-2.1) 08/02/18 20:12 Lipase 76 U/L (23-300) 08/02/18 20:12 - ECG O2 Sat by Pulse Oximetry: 96 - Progress ED Course And Treament: case endorsed to check writer salesperson from [employer] pending labs, imaging EXAM: CT Head Without IV contrast. CLINICAL HISTORY: Ams TECHNIQUE: Axial computed tomography images of the head/brain without intravenous contrast. COMPARISON: CT\SD\SR - HEAD W/O (CODE STROKE) - 06/01/2018 02:21 PM EDT FINDINGS: BRAIN: Chronic periventricular and subcortical microvascular disease is seen. Right internal capsule and left basal ganglia lacunar infarcts. No acute intracranial pathology. VENTRICLES: There is generalized parenchymal atrophy noted as demonstrated by symmetrical dilatation of ventricles and sulci. ORBITS: The orbits are unremarkable. SINUSES AND MASTOIDS: The paranasal sinuses and mastoid air cells are clear. BONES: No fracture. SOFT TISSUES: Small right frontal scalp hematoma. IMPRESSION: 1. There is generalized parenchymal atrophy. 2. Chronic periventricular and subcortical microvascular disease is seen. 3. Right internal capsule and left basal ganglia lacunar infarcts. 4. Small right frontal scalp hematoma. 5. No acute intracranial pathology EXAM: CR bilateral Ribs, 5 View. CLINICAL HISTORY: Rib pain, shortness of breath COMPARISON: None provided. FINDINGS: LUNGS: Atelectasis and/or scarring in the right and left midlung. The visualized lungs appear essentially clear. PLEURAL SPACES: No pneumothorax evident. No pleural effusions. BONES: No visible acute rib fracture. IMPRESSION: No visible acute rib fracture. No pneumothorax EXAM: CT Chest without Intravenous Contrast. CLINICAL HISTORY: RT SIDED RIB PAIN TECHNIQUE: Axial computed tomography images of the chest without intravenous contrast. 544.25 mGy-cm CONTRAST: Without COMPARISON: None provided. FINDINGS: LUNGS: Bilateral upper lobe atelectatic changes are noted. No pneumonic consolidation is identified. No pulmonary mass. PLEURAL SPACES: No evidence of pneumothorax. No pleural effusion. HEART/VASCULAR: There is mild-moderate cardiomegaly. No pericardial effusion. There is atherosclerotic vascular plaquing seen in the aortic arch, descending thoracic aorta, LAD, posterior left circumflex and right coronary arteries. LYMPH NODES: No lymphadenopathy is evident. BONES: No focal osseous abnormality or acute fracture. UPPER ABDOMEN: The upper abdominal solid organs are unremarkable. IMPRESSION: 1. Bilateral upper lobe atelectasis. 2. Mild-moderate cardiomegaly. 3. Atherosclerotic vascular plaquing; including within the coronary arteries 0054 RUQ Abdomen US FINDINGS: LIVER: Liver is mildly enlarged at 17.2 cm but demonstrates normal echogenicity. Portal vein demonstrates hepatopetal flow. GALLBLADDER: The gallbladder has a normal sonographic appearance and sonographic Silverio sign is negative. COMMON BILE DUCT: Common bile duct is normal in caliber measuring 0.4 cm. PANCREAS: The pancreas is not well seen secondary to overlying bowel gas. RIGHT KIDNEY: The right kidney has a normal sonographic appearance without hydronephrosis or focal abnormality. MISCELLANEOUS: Visualized aorta and IVC appear unremarkable. IMPRESSION: 1. Liver is mildly enlarged at 17.2 cm. 2. The gallbladder has a normal sonographic appearance and sonographic Silverio sign is negative. 3. Common bile duct is normal in caliber measuring 0.4 cm. 4. The pancreas is not well seen secondary to overlying bowel gas. 5. Visualized aorta and IVC appear unremarkable. 6. The right kidney has a normal sonographic appearance without hydronephrosis or focal abnormality. On re-eval, patient O2 90-92% on room air. Case discussed with Dr. Dobbs for admission for CHF exacerbation IV lasix ordered ABG ordered (probable mix sample as per RT as patient was hard stick, multiple attempts) Disposition - Clinical Impression Clinical Impression: CHF (congestive heart failure), Rib pain - POA Present On Arrival: Falls Or Trauma, Poor Glycemic Control - Disposition Disposition: Hospitalized as Observation Patient Disposition Time: 01:30 Condition: FAIR
[2018-08-03 02:48] LABS: SQUAMOUS EPITHIAL 3 /hpf (0-5); URINE BACTERIA RARE (<OCC); URINE BILIRUBIN NEGATIVE (NEGATIVE); URINE BLOOD SMALL (NEGATIVE); URINE CLARITY SLIGHTY-CLOUDY (Clear); URINE COLOR STRAW (YELLOW); URINE GLUCOSE (UA) 50 mg/dL (NEGATIVE); URINE LEUKOCYTE ESTERASE SMALL Leu/uL (Negative); URINE PROTEIN 30 mg/dL (NEGATIVE); URINE UROBILINOGEN 0.2-1.0 mg/dL (0.2-1.0)
[2018-08-03 03:02] LABS: ABG ALLEN TEST YES; ARTERIAL BLOOD GAS HCO3 31.7 mmol/L (21-28); ARTERIAL BLOOD GAS HEMOGLOBIN 9.7 g/dL (11.7-17.4); ARTERIAL BLOOD GAS O2 CAPACITY 12.9 mL/dL (16-24); ARTERIAL BLOOD GAS O2 CONTENT 11.7 ML/dL (15-23); ARTERIAL BLOOD GAS O2 SAT 90.9 % (95-98); ARTERIAL BLOOD GAS PCO2 49 mm/Hg (35-45); ARTERIAL BLOOD GAS PH 7.45 (7.35-7.45); ARTERIAL BLOOD GAS PO2 46 mm/Hg (80-100); ARTERIAL BLOOD GAS TCO2 35.6 mmol/L (22-28)
[2018-08-03] MEDS ORDERED: ALUMINUM HYDROXIDE PO PRN (05:40)
[2018-08-03] MEDS ORDERED: MAGNESIUM HYDROXIDE PO PRN (05:40)
[2018-08-03] MEDS ORDERED: INSULIN GLARGINE RECOMBINA 10 UNIT SC SCH ×2 (05:45→09:00)
[2018-08-03] MEDS ORDERED: Alum-Mag Hydrox-Simethicone Susp (30 mL) PO PRN (06:00)
--- NOTE | 2018-08-03 06:19 | CP.PCM.HP ---
<ÁlvaroRobertanthony - Last Filed: 08/03/18 10:45> History of Present Illness - History of Present Illness History of Present Illness: Pt is a poor historian. No cooperative with exam at this time endorses have had a tight night and wants rest a little bit. History also obtained from chart review. This is a 73 y/o female with hx of multiple CVA's, dementia, DM, HTN, HLD presenting to ED c/o pain on her ribs b/l, denies any injury. No family at bedside at this time to corroborate history. On ED work up she was found with elevated PBNP and admission was done due to CHF exacerbation. She denies any chest pain now or sob, noted lying sleeping comfortable in bed. Denies blurry vision, cp, sob, recent illness. Speech appears slurred. Will come back later and try to get more information. PMD: Dr. Babb Pmhx: Alzheimer's, HTN, HLD Surghx: peg placement/removal FamHx: non-contributory Socialhx: lives w/ spouse at home Allergies: Oxycodone Code: Full Code Next of Kin: , Yanick Khalil, Present on Admission - Present on Admission Any Indicators Present on Admission: No Review of Systems - Review of Systems All systems: reviewed and no additional remarkable complaints except (HPI) Past Patient History - Past Medical History & Family History Past Medical History?: Yes - Past Social History Smoking Status: Never Smoked - CARDIAC Hx Cardiac Disorders: Yes Hx Atrial Fibrillation: No Hx Congestive Heart Failure: Yes Hx Hypercholesterolemia: Yes Hx Hypertension: Yes Hx Peripheral Edema: Yes - PULMONARY Hx Respiratory Disorders: Yes Hx Pneumonia: Yes (Aspiration pnuemonia) - NEUROLOGICAL Hx Neurological Disorder: Yes Hx Alzheimer's Disease: Yes Hx Dementia: Yes - HEENT Hx HEENT Problems: No - RENAL Hx Chronic Kidney Disease: Yes - ENDOCRINE/METABOLIC Hx Endocrine Disorders: Yes Hx Diabetes Mellitus Type 2: Yes - HEMATOLOGICAL/ONCOLOGICAL Hx Blood Disorders: Yes Hx Anemia: Yes Hx Human Immunodeficiency Virus (HIV): No - INTEGUMENTARY Hx Dermatological Problems: No - MUSCULOSKELETAL/RHEUMATOLOGICAL Hx Musculoskeletal Disorders: Yes Hx Arthritis: Yes - GASTROINTESTINAL Hx Gastrointestinal Disorders: Yes Hx Gastroesophageal Reflux: Yes Hx Hemorrhoids: Yes Other/Comment: Hx rectal bleeding - GENITOURINARY/GYNECOLOGICAL Hx Genitourinary Disorders: Yes Hx Incontinence: Yes - PSYCHIATRIC Hx Psychophysiologic Disorder: Yes Hx Depression: Yes - SURGICAL HISTORY Hx Surgeries: Yes Other/Comment: Hx PEG tube insertion and removal - ANESTHESIA Hx Anesthesia: Yes Hx Anesthesia Reactions: No Hx Malignant Hyperthermia: No Meds Allergies/Adverse Reactions: Allergies Allergy/AdvReac Type Severity Reaction Status Date / Time oxycodone Allergy RASH Verified 08/02/18 18:36 Physical Exam - Constitutional Appears: Non-toxic, No Acute Distress - Head Exam Head Exam: NORMAL INSPECTION - Eye Exam Eye Exam: EOMI, Normal appearance, PERRL - ENT Exam ENT Exam: Mucous Membranes Moist - Neck Exam Neck exam: Positive for: Full Rom. Negative for: Lymphadenopathy, Tenderness, Thyromegaly - Respiratory Exam Respiratory Exam: Clear to Auscultation Bilateral, NORMAL BREATHING PATTERN. absent: Chest Wall Tenderness, Decreased Breath Sounds, Rales - Cardiovascular Exam Cardiovascular Exam: REGULAR RHYTHM, +S1, +S2. absent: Tachycardia, Rubs, Systolic Murmur - GI/Abdominal Exam GI & Abdominal Exam: Normal Bowel Sounds, Soft. absent: Distended, Tenderness - Extremities Exam Extremities exam: Negative for: calf tenderness, pedal edema - Neurological Exam Neurological exam: Alert, Oriented x3 - Psychiatric Exam Psychiatric exam: Normal Mood - Skin Skin Exam: Dry, Warm Results - Vital Signs Recent Vital Signs: Last Vital Signs Temp 98 F 08/03/18 04:30 Pulse 76 08/03/18 04:36 Resp 20 08/03/18 04:36 BP 176/81 H 08/03/18 04:30 Pulse Ox 95 08/03/18 04:36 - Labs Result Diagrams: 08/02/18 20:12 08/03/18 06:50 Labs: Laboratory Results - last 24 hr 08/02/18 08/02/18 08/02/18 19:42 20:10 20:12 WBC 4.3 L RBC 2.88 L Hgb 8.9 L Hct 27.2 L MCV 94.1 MCH 30.8 MCHC 32.7 L RDW 15.1 H Plt Count 195 MPV 9.5 Neut % (Auto) 63.3 Lymph % (Auto) 24.0 Patrick % (Auto) 8.8 Eos % (Auto) 3.2 Baso % (Auto) 0.7 Neut # (Auto) 2.7 Lymph # (Auto) 1.0 Patrick # (Auto) 0.4 Eos # (Auto) 0.1 Baso # (Auto) 0.0 pCO2 pO2 43 HCO3 ABG pH ABG Total CO2 ABG O2 Saturation ABG O2 Content ABG Base Excess ABG Hemoglobin ABG Carboxyhemoglobin POC ABG HHb (Measured) ABG Methemoglobin ABG O2 Capacity Boaz Test VBG pH 7.28 L VBG pCO2 70 H* VBG HCO3 27.3 VBG Total CO2 35.0 H VBG O2 Sat (Calc) 78.4 H VBG Base Excess 3.9 H VBG Potassium 4.6 A-a O2 Difference Hgb O2 Saturation Sodium 138.0 Chloride 104.0 Glucose 245 H Lactate 0.9 FiO2 21.0 Crit Value Called To Sign Language Instructor [facility] Crit Value Called By 23 Crit Value Read Back Y Blood Gas Notified Time 2039 Potassium Carbon Dioxide Anion Gap BUN Creatinine Est GFR ( Amer) Est GFR (Non-Af Amer) POC Glucose (mg/dL) 271 H Random Glucose Calcium Total Bilirubin AST ALT Alkaline Phosphatase Troponin I NT-Pro-B Natriuret Pep Total Protein Albumin Globulin Albumin/Globulin Ratio Lipase Venous Blood Potassium 4.6 Urine Color Urine Clarity Urine pH Ur Specific [place] Urine Protein Urine Glucose (UA) Urine Ketones Urine Blood Urine Nitrate Urine Bilirubin Urine Urobilinogen Ur Leukocyte Esterase Urine RBC (Auto) Urine Microscopic WBC Ur Squamous Epith Cells Urine Bacteria 08/02/18 08/03/18 08/03/18 20:12 02:28 02:42 WBC RBC Hgb Hct MCV MCH MCHC RDW Plt Count MPV Neut % (Auto) Lymph % (Auto) Patrick % (Auto) Eos % (Auto) Baso % (Auto) Neut # (Auto) Lymph # (Auto) Patrick # (Auto) Eos # (Auto) Baso # (Auto) pCO2 49 H pO2 46 L HCO3 31.7 H ABG pH 7.45 ABG Total CO2 35.6 H ABG O2 Saturation 90.9 L ABG O2 Content 11.7 L ABG Base Excess 9.0 H ABG Hemoglobin 9.7 L ABG Carboxyhemoglobin 2.8 H POC ABG HHb (Measured) 8.6 H ABG Methemoglobin 2.7 ABG O2 Capacity 12.9 L Boaz Test Yes VBG pH VBG pCO2 VBG HCO3 VBG Total CO2 VBG O2 Sat (Calc) VBG Base Excess VBG Potassium A-a O2 Difference 42.0 Hgb O2 Saturation 85.9 L Sodium 137 Chloride 102 Glucose Lactate FiO2 21.0 Crit Value Called To Crit Value Called By Crit Value Read Back Blood Gas Notified Time Potassium 4.4 Carbon Dioxide 27 Anion Gap 12 BUN 34 H Creatinine 0.9 Est GFR ( Amer) > 60 Est GFR (Non-Af Amer) > 60 POC Glucose (mg/dL) Random Glucose 235 H Calcium 8.5 Total Bilirubin 0.3 AST 17 ALT 21 Alkaline Phosphatase 53 Troponin I < 0.0120 NT-Pro-B Natriuret Pep 1090 H Total Protein 7.4 Albumin 3.9 Globulin 3.5 Albumin/Globulin Ratio 1.1 Lipase 76 Venous Blood Potassium Urine Color Straw Urine Clarity Slighty-cloudy Urine pH 6.0 Ur Specific [place] 1.012 Urine Protein 30 Urine Glucose (UA) 50 Urine Ketones Negative Urine Blood Small Urine Nitrate Negative Urine Bilirubin Negative Urine Urobilinogen 0.2-1.0 Ur Leukocyte Esterase Small Urine RBC (Auto) 2 Urine Microscopic WBC 11 H Ur Squamous Epith Cells 3 Urine Bacteria Rare Assessment & Plan - Assessment and Plan (Free Text) Assessment: 73 y/o female with hx of multiple CVA's, dementia, DM, HTN, HLD admitted due to CHF exacerbation. Plan: - admit to tele - VSS - PBNP mildly elevated - troponin x2 negative - CXR, and chest CT negative for acute lung disease - Echo 06/02/18: EF 55-60%, No evidence of atrial septal defect, no thrombus, Mild tricuspid regurg - s/p IV lasix on ED - Cardiology consulted, recs appreciated - HTN: continue home meds - DM: on sliding scale coverage, levemir HS, hypogycemia protocol - pain management - rest of plan as ordered Case discussed with Dr Dobbs. <Sebastián Dobbs - Last Filed: 08/04/18 08:06> Results - Vital Signs Recent Vital Signs: Last Vital Signs Temp 97.9 F 08/04/18 04:30 Pulse 74 08/04/18 04:30 Resp 18 08/04/18 04:30 BP 163/89 H 08/04/18 04:30 Pulse Ox 94 L 08/04/18 04:30 - Labs Result Diagrams: 08/04/18 04:45 08/04/18 04:45 Labs: Laboratory Results - last 24 hr 08/03/18 08/03/18 08/03/18 10:58 14:39 16:13 WBC RBC Hgb Hct MCV MCH MCHC RDW Plt Count Sodium Potassium Chloride Carbon Dioxide Anion Gap BUN Creatinine Est GFR ( Amer) Est GFR (Non-Af Amer) POC Glucose (mg/dL) 217 H 265 H Random Glucose Calcium Total Bilirubin AST ALT Alkaline Phosphatase Troponin I < 0.0120 Total Protein Albumin Globulin Albumin/Globulin Ratio 08/03/18 08/04/18 08/04/18 21:36 04:45 04:45 WBC 5.1 RBC 3.05 L Hgb 9.3 L Hct 28.3 L MCV 92.6 MCH 30.5 MCHC 32.9 L RDW 14.7 H Plt Count 194 Sodium 139 Potassium 3.9 Chloride 99 Carbon Dioxide 33 H Anion Gap 11 BUN 30 H Creatinine 1.0 Est GFR ( Amer) > 60 Est GFR (Non-Af Amer) 55 POC Glucose (mg/dL) 179 H Random Glucose 102 Calcium 8.5 Total Bilirubin 0.3 AST 14 ALT 17 Alkaline Phosphatase 56 Troponin I Total Protein 7.0 Albumin 3.7 Globulin 3.3 Albumin/Globulin Ratio 1.1 Assessment & Plan - Assessment and Plan (Free Text) Assessment: Patient was personally seen and examined by me in rounds with residents. Available labs and diagnostic data reviewed. Case, Patient's condition and management plan discussed with residents in rounds . Agree with resident's progress note. Plan: As ordered.
[2018-08-03] MEDS: Insulin Lispro (humaLOG) 100 Units/ml Inj SC SCH ×4 (06:46→22:15)
[2018-08-03 07:42] LABS: BLOOD UREA NITROGEN 26 mg/dl (7-17); GFR NON-AFRICAN AMERICAN > 60
[2018-08-03 07:43] LABS: CALCIUM 8.6 mg/dL (8.4-10.2)
[2018-08-03] MEDS ORDERED: Vitamin A/D oint 60G TP SCH (09:00)
--- NOTE | 2018-08-03 09:28 | CT ---
Date of service: 08/02/2018 PROCEDURE: CT HEAD WITHOUT CONTRAST. HISTORY: ams COMPARISON: None available. TECHNIQUE: Axial computed tomography images were obtained through the head/brain without intravenous contrast. Radiation dose: Total exam DLP = 1037.94 mGy-cm. This CT exam was performed using one or more of the following dose reduction techniques: Automated exposure control, adjustment of the mA and/or kV according to patient size, and/or use of iterative reconstruction technique. FINDINGS: HEMORRHAGE: No intracranial hemorrhage. BRAIN: No mass effect or edema. Small old left caudate nucleus lacunar infarct. Small old left thalamic lacunar infarct. Remote right mcleod radiata ischemic change. All of these findings are stable since 02/24/2018. No evidence of acute infarct. VENTRICLES: Unremarkable. No hydrocephalus. CALVARIUM: No fracture. Small right frontal scalp contusion/hematoma. PARANASAL SINUSES: Unremarkable as visualized. No significant inflammatory changes. MASTOID AIR CELLS: Unremarkable as visualized. No inflammatory changes. OTHER FINDINGS: None. IMPRESSION: No intracranial mass, hemorrhage or evidence of acute infarct. Old lacunar infarcts and remote right mcleod radiata ischemic change. Small right frontal scalp contusion/hematoma. Otherwise unremarkable. The preliminary findings for this examination were reported by [facility] at 9 p.m. on 08/02/2018. There is concurrence of this report with the preliminary findings.
--- NOTE | 2018-08-03 10:05 | US ---
Date of service: 08/03/2018 HISTORY: ruq pain COMPARISON: None. TECHNIQUE: Sonographic evaluation of the right upper quadrant of the abdomen. FINDINGS: LIVER: Measures 17.2 cm in length. Diffusely increased echogenicity of the liver parenchyma. Consistent with fatty infiltration. Smooth contour. No mass. No biliary ductal dilatation. Normal hepatopetal portal venous flow. GALLBLADDER: Unremarkable. No gallstones. No mural thickening. No pericholecystic fluid. Negative sonographic Silverio sign. COMMON BILE DUCT: Measures 4 mm. No stones. No dilatation. PANCREAS: Poorly visualized due to bowel gas obscuring the region of interest RIGHT KIDNEY: Measures 10.0 cm in length. Normal echogenicity. No calculus, mass, or hydronephrosis. AORTA: No aneurysmal dilatation. IVC: Unremarkable. OTHER FINDINGS: None . IMPRESSION: Fatty infiltration of the liver. No evidence of cholelithiasis or cholecystitis. Poor visualization of the pancreas. The preliminary findings for this examination were reported by [facility] at 12:54 a.m. on 08/03/2018. There is concurrence of this report with the preliminary findings.
[2018-08-03] MEDS: Enoxaparin 40 mg Syringe SC SCH (10:45)
[2018-08-03] MEDS: Insulin Detemir 100 Units/ml Inj SC SCH ×2 (10:46→22:15)
--- NOTE | 2018-08-03 11:50 | CT ---
Date of service: 08/02/2018 PROCEDURE: CT Chest without contrast HISTORY: Right-sided rib pain; SOB. COMPARISON: Comparison made with CT chest 12/09/2017 TECHNIQUE: Contiguous axial images were obtained through the chest without intravenous contrast enhancement. Sagittal and coronal reconstructions were performed. Radiation dose: Total exam DLP = 544.25 mGy-cm. This CT exam was performed using one or more of the following dose reduction techniques: Automated exposure control, adjustment of the mA and/or kV according to patient size, and/or use of iterative reconstruction technique. FINDINGS: LUNGS: Redemonstrated are irregular linear scarring changes in the right upper lobe as well as middle lobe and left lower lobe. Also again seen are irregular scarring changes seen in the left upper and lower lobes as well.. No acute consolidation. Minor right apical pleural thickening and adjacent parenchymal scarring. MEDIASTINUM: The heart is enlarged. No significant pericardial effusion. Coronary artery calcifications are present. The at ascending thoracic aorta measures approximately 3.3 cm and descending thoracic aorta measures approximately 2.5 cm. Minor aortic atherosclerotic calcification. The pulmonary trunk measures approximately 2.9 cm. Trachea midline. There is a small hiatal hernia. Few small nonspecific mediastinal lymph nodes are present. The evaluation for hilar adenopathy is limited due to the lack of circulating intravenous contrast material. PLEURA: No pleural fluid. No pneumothorax. BONES: Multilevel degenerative spondylosis of the thoracic and upper lumbar spine. UPPER ABDOMEN: The nodular appearing left adrenal gland. OTHER FINDINGS: Slightly lobular appearing thyroid gland. Previously noted low-attenuation nodular density within the right lobe is less well seen due to the lack of circulating intravenous contrast material. Follow-up thyroid ultrasound recommended. IMPRESSION: There are irregular linear scarring changes seen upper and lower lobes bilaterally. Cardiomegaly. Low-attenuation lesion right lobe thyroid gland poorly seen due to the lack of circulating intravenous contrast material. Recommend follow-up thyroid ultrasound.
--- NOTE | 2018-08-03 13:28 | RAD ---
Date of service: 08/02/2018 PROCEDURE: Radiographs of the chest and bilateral ribs HISTORY: RIB PAIN/SOB COMPARISON: None available. TECHNIQUE: Frontal radiograph of the chest and multiple oblique radiographs of the bilateral ribs were obtained. 5 views obtained. FINDINGS: RIGHT RIBS: No fracture or focal lesion visualized. LEFT RIBS: No fracture or focal lesion visualized. LUNGS: Linear scar/atelectasis mid right and left lung. No infiltrate. PLEURA: No pneumothorax or pleural fluid. CARDIOVASCULAR: Normal cardiac size. No pulmonary vascular congestion. There is atherosclerotic calcification of the thoracic aorta. OTHER FINDINGS: None. IMPRESSION: No evidence of rib fracture. Bilateral linear scar/atelectasis.
[2018-08-04 05:55] LABS: HEMOGLOBIN 9.3 g/dL (12.0-16.0); MEAN CELL VOLUME 92.6 fl (81.0-99.0); MEAN CORPUSCULAR HEMOGLOBIN 30.5 pg (27.0-31.0); MEAN CORPUSCULAR HGB CONC 32.9 g/dL (33.0-37.0); RBC 3.05 Mil/uL (3.80-5.20); RED CELL DISTRIBUTION WIDTH 14.7 % (11.5-14.5); WHITE BLOOD COUNT 5.1 K/uL (4.8-10.8)
[2018-08-04 06:15] LABS: ALB/GLOB RATIO 1.1 (1.0-2.1); ALBUMIN 3.7 g/dL (3.5-5.0); ALT/SGPT 17 U/L (9-52); AST/SGOT 14 U/L (14-36); BLOOD UREA NITROGEN 30 mg/dl (7-17); CALCIUM 8.5 mg/dL (8.4-10.2); GFR NON-AFRICAN AMERICAN 55
[2018-08-04 08:29] VITALS: RESP 20; O2SAT 95
--- NOTE | 2018-08-04 08:54 | CP.PCM.CON ---
History of Present Illness - History of Present Illness History of Present Illness: Nelson Pedroza, PGY [address] Ching: CC: b/l Rib pain Consutled for CHF exacerbation Pt is a 73 to F with pmhx of dementia, HTN, multiple CVA's, DM, HLD who presented to b/l rib pain. Cardiac team was consulted for elevated BNP. Pt states that at this time she does not feel rib pain and that she is having no acute complaints. Pt is laying flat and denies any SOB. Pt also denies any fevers, chills, headahce, chest pain, rib pain, SOB, cough, palpitations, wekaness, lightheadedness, LE edema, abd pain, n/v, c/d or dysuria. Pt is noted to be poor historian. Review of Systems - Review of Systems Review of Systems: 12 point ROS reviewed and negative this AM at bedside. Past Patient History - Past Medical History & Family History Past Medical History?: Yes - Past Social History Smoking Status: Never Smoked - CARDIAC Hx Cardiac Disorders: Yes Hx Atrial Fibrillation: No Hx Congestive Heart Failure: Yes Hx Hypercholesterolemia: Yes Hx Hypertension: Yes Hx Peripheral Edema: Yes - PULMONARY Hx Respiratory Disorders: Yes Hx Pneumonia: Yes (Aspiration pnuemonia) - NEUROLOGICAL Hx Neurological Disorder: Yes Hx Alzheimer's Disease: Yes Hx Dementia: Yes - HEENT Hx HEENT Problems: No - RENAL Hx Chronic Kidney Disease: Yes - ENDOCRINE/METABOLIC Hx Endocrine Disorders: Yes Hx Diabetes Mellitus Type 2: Yes - HEMATOLOGICAL/ONCOLOGICAL Hx Blood Disorders: Yes Hx Anemia: Yes Hx Human Immunodeficiency Virus (HIV): No - INTEGUMENTARY Hx Dermatological Problems: No - MUSCULOSKELETAL/RHEUMATOLOGICAL Hx Musculoskeletal Disorders: Yes Hx Arthritis: Yes - GASTROINTESTINAL Hx Gastrointestinal Disorders: Yes Hx Gastroesophageal Reflux: Yes Hx Hemorrhoids: Yes Other/Comment: Hx rectal bleeding - GENITOURINARY/GYNECOLOGICAL Hx Genitourinary Disorders: Yes Hx Incontinence: Yes - PSYCHIATRIC Hx Psychophysiologic Disorder: Yes Hx Depression: Yes - SURGICAL HISTORY Hx Surgeries: Yes Other/Comment: Hx PEG tube insertion and removal - ANESTHESIA Hx Anesthesia: Yes Hx Anesthesia Reactions: No Hx Malignant Hyperthermia: No Meds Allergies/Adverse Reactions: Allergies Allergy/AdvReac Type Severity Reaction Status Date / Time oxycodone Allergy RASH Verified 08/02/18 18:36 - Medications Medications: Current Medications Acetaminophen (Tylenol 325mg Tab) 650 mg PO Q4H PRN PRN Reason: Fever >100.4 F Acetaminophen (Tylenol 325mg Tab) 650 mg PO Q8 PRN PRN Reason: Pain, Mild (1-3) Al Hydrox/Mg Hydrox/Simethicone (Maalox Plus 30 Ml) 30 ml PO Q4 PRN PRN Reason: Indigestion / Heartburn Amlodipine Besylate (Norvasc) 10 mg PO DAILY [facility] Last Admin: 08/03/18 10:45 Dose: 10 mg Aspirin (Ecotrin) 81 mg PO DAILY [facility] Last Admin: 08/03/18 10:43 Dose: 81 mg Atorvastatin Calcium (Lipitor) 40 mg PO HS [facility] Last Admin: 08/03/18 22:14 Dose: 40 mg Carvedilol (Coreg) 12.5 mg PO BID [facility] Last Admin: 08/03/18 17:32 Dose: 12.5 mg Clopidogrel Bisulfate (Plavix) 75 mg PO DAILY [facility] Last Admin: 08/03/18 10:48 Dose: 75 mg Donepezil HCl (Aricept) 10 mg PO HS [facility] Last Admin: 08/03/18 22:14 Dose: 10 mg Enoxaparin Sodium (Lovenox) 40 mg SC DAILY [facility]; Protocol Last Admin: 08/03/18 10:45 Dose: 40 mg Ferrous Sulfate (Feosol) 325 mg PO DAILY [facility] Last Admin: 08/03/18 10:44 Dose: 325 mg Folic Acid (Folic Acid) 1 mg PO DAILY [facility] Last Admin: 08/03/18 10:44 Dose: 1 mg Insulin Detemir (Levemir) 10 units SC Q12 [facility] Last Admin: 08/03/18 22:15 Dose: 10 unit Insulin Human Lispro (Humalog) 0 units SC ACHS [facility]; Protocol Last Admin: 08/03/18 22:15 Dose: Not Given Losartan Potassium (Cozaar) 50 mg PO DAILY [facility] Last Admin: 08/03/18 10:43 Dose: 50 mg Sitagliptin Phosphate (Januvia) 100 mg PO DAILY [facility] Last Admin: 08/03/18 10:48 Dose: 100 mg Vitamin A (Vitamin A&D) 1 applic [facility] Vitamin E (Vitamin E 400 Units Cap) 400 intlu PO DAILY [facility] Last Admin: 08/03/18 10:46 Dose: 400 intlu Physical Exam - Constitutional Appears: Non-toxic, No Acute Distress - Head Exam Head Exam: ATRAUMATIC, NORMAL INSPECTION, NORMOCEPHALIC - Eye Exam Eye Exam: EOMI, Normal appearance, PERRL - Respiratory Exam Respiratory Exam: Clear to Auscultation Bilateral, NORMAL BREATHING PATTERN. absent: Rales, Rhonchi, Wheezes - Cardiovascular Exam Cardiovascular Exam: RRR, +S1, +S2. absent: Gallop, Rubs - GI/Abdominal Exam GI & Abdominal Exam: Normal Bowel Sounds, Soft. absent: Distended, Firm, Guarding, Rigid, Tenderness - Extremities Exam Extremities exam: Positive for: normal capillary refill, normal inspection, pedal pulses present - Back Exam Back exam: NORMAL INSPECTION. absent: CVA tenderness (L), CVA tenderness (R) - Neurological Exam Neurological exam: Alert - Skin Skin Exam: Normal Color, Warm Results - Vital Signs Recent Vital Signs: Last Vital Signs Temp 97.9 F 08/04/18 08:28 Pulse 74 08/04/18 08:28 Resp 20 08/04/18 08:28 BP 163/84 H 08/04/18 08:28 Pulse Ox 95 08/04/18 08:28 - Labs Result Diagrams: 08/04/18 04:45 08/04/18 04:45 Labs: Laboratory Results - last 24 hr 08/03/18 08/03/18 08/03/18 10:58 14:39 16:13 WBC RBC Hgb Hct MCV MCH MCHC RDW Plt Count Sodium Potassium Chloride Carbon Dioxide Anion Gap BUN Creatinine Est GFR ( Amer) Est GFR (Non-Af Amer) POC Glucose (mg/dL) 217 H 265 H Random Glucose Calcium Total Bilirubin AST ALT Alkaline Phosphatase Troponin I < 0.0120 Total Protein Albumin Globulin Albumin/Globulin Ratio 08/03/18 08/04/18 08/04/18 21:36 04:45 04:45 WBC 5.1 RBC 3.05 L Hgb 9.3 L Hct 28.3 L MCV 92.6 MCH 30.5 MCHC 32.9 L RDW 14.7 H Plt Count 194 Sodium 139 Potassium 3.9 Chloride 99 Carbon Dioxide 33 H Anion Gap 11 BUN 30 H Creatinine 1.0 Est GFR ( Amer) > 60 Est GFR (Non-Af Amer) 55 POC Glucose (mg/dL) 179 H Random Glucose 102 Calcium 8.5 Total Bilirubin 0.3 AST 14 ALT 17 Alkaline Phosphatase 56 Troponin I Total Protein 7.0 Albumin 3.7 Globulin 3.3 Albumin/Globulin Ratio 1.1 Assessment & Plan - Assessment and Plan (Free Text) Plan: - Pt given lasix - Pt does not fit clinical picture of CHF exacerbation or fluid overload - Pt has no active complaints at this time
[2018-08-04] MEDS: Insulin Lispro (humaLOG) 100 Units/ml Inj SC SCH ×3 (10:22→17:25)
[2018-08-04] MEDS: Enoxaparin 40 mg Syringe SC SCH (10:23)
[2018-08-04] MEDS: Insulin Detemir 100 Units/ml Inj SC SCH (10:24)
[2018-08-04 15:45] VITALS: BP 134/67; PULSE 83; TEMP 98.2
== END 2018-08-04 18:20 | disposition home or self-care (01) ==
LOC: H.ER 18:03 → H.ERHOLD 08-03 01:53 → H.TEL 08-03 04:16
PROVIDERS: ADMIT Internal Medicine; ATTEND Internal Medicine
DX: I50.9 Heart failure, unspecified (principal); N18.9 Chronic kidney disease, unspecified; E11.22 Type 2 diabetes mellitus with diabetic chronic kidney disease; I13.0 Hypertensive heart and chronic kidney disease with heart failure and stage 1 through stage 4 chronic kidney disease, or unspecified chronic kidney disease; G30.9 Alzheimer's disease, unspecified; F02.80 Dementia in other diseases classified elsewhere, unspecified severity, without behavioral disturbance, psychotic disturbance, mood disturbance, and anxiety; E78.00 Pure hypercholesterolemia, unspecified; Z87.01 Personal history of pneumonia (recurrent); D64.9 Anemia, unspecified; Z86.73 Personal history of transient ischemic attack (TIA), and cerebral infarction without residual deficits; Z88.5 Allergy status to narcotic agent; K21.9 Gastro-esophageal reflux disease without esophagitis; M19.90 Unspecified osteoarthritis, unspecified site; F32.9 Major depressive disorder, single episode, unspecified; J98.11 Atelectasis; Z79.02 Long term (current) use of antithrombotics/antiplatelets; Z79.82 Long term (current) use of aspirin; Z79.899 Other long term (current) drug therapy; Z79.4 Long term (current) use of insulin; Z79.84 Long term (current) use of oral hypoglycemic drugs
CPT/HCPCS: 36415; 70450; 71111; 71250; 76705; 80048; 80053; 81003; 82803; 82948; 83690; 83880; 84484; 85025; 85027; 87040; 87086; 96374; 97161; 99284; G0378; G8978; G8979; J1650; J1940